=== PATIENT | male | born 1955 | race Caucasian/White ===

== ENCOUNTER → 2017-09-17 14:18 | Outpatient (CLI) | payer BC, SELFPAY ==
[2016-03-23 15:48] VITALS: BMI 51.2
[2016-03-29 21:49] VITALS: BP 125/61
[2016-03-30 08:08] VITALS: BP 128/71
[2017-09-17 15:15] LABS: Amphetamine Urine VISTA NEGATIVE (<1000 ng/mL); Barbiturate Urine VISTA NEGATIVE (< 200 ng/mL); Benzodiazepine Urine VISTA NEGATIVE (< 200 ng/mL); Cocaine Urine VISTA NEGATIVE (< 300 ng/mL); Ecstacy Urine VISTA NEGATIVE (< 500 ng/mL); Methadone Urine VISTA NEGATIVE (< 300 ng/mL); PCP Urine VISTA NEGATIVE (< 25 ng/mL); THC Urine VISTA NEGATIVE (< 50 ng/mL); Vista UDS pH Range 5
== END ==
PROVIDERS: Family Provider Internal Medicine; PCP Internal Medicine; Visit Provider Anesthesiology Pain Medicine
DX: F11.20 Opioid dependence, uncomplicated (principal)
CPT/HCPCS: 80307

== ENCOUNTER → 2018-11-20 16:05 | Outpatient (CLI) | payer OTHER, SELFPAY ==
[2016-03-23 15:48] VITALS: BMI 51.2
[2018-11-20 18:07] LABS: Amphetamine Urine VISTA NEGATIVE (<1000 ng/mL); Barbiturate Urine VISTA NEGATIVE (< 200 ng/mL); Benzodiazepine Urine VISTA NEGATIVE (< 200 ng/mL); Cocaine Urine VISTA NEGATIVE (< 300 ng/mL); Ecstacy Urine VISTA NEGATIVE (< 500 ng/mL); Methadone Urine VISTA NEGATIVE (< 300 ng/mL); PCP Urine VISTA NEGATIVE (< 25 ng/mL); THC Urine VISTA NEGATIVE (< 50 ng/mL); Vista UDS pH Range 5
== END ==
PROVIDERS: Family Provider Internal Medicine; PCP Internal Medicine; Referring Provider Anesthesiology Pain Medicine; Visit Provider Anesthesiology Pain Medicine
DX: F11.20 Opioid dependence, uncomplicated (principal)
CPT/HCPCS: 80307

== ENCOUNTER → 2019-12-17 13:47 | Outpatient (CLI) | payer MEDICARE, BC, SELFPAY ==
--- NOTE | 2019-12-17 13:54 | RAD_ITS ---
STUDY: X-RAY - LUMBAR SPINE REASON FOR EXAM: Male, 63 years old. Back pain TECHNIQUE: 3 view(s) of the lumbar spine were obtained. COMPARISON: Comparison is made with prior examination dated August 26, 2016. FINDINGS: There is an exaggerated lumbar lordosis. There is no substantial scoliosis. There is a normal alignment of the vertebrae. Once again, the patient is status post laminectomy and fusion at the L4-L5 and L5-S1 levels. There has been prosthetic disc placement. There is evidence of disc space narrowing at the L4-L5 and L5-S1 levels. The soft tissue structures are unremarkable. RAD/Lumbar Spine 2 or 3 Views IMPRESSION: Status post laminectomy and fusion at the L4-L5 and L5-S1 levels. There has been no change. Electronically Signed: Adolfo Guzmán, at 15:51 EDT , Service support ,
== END ==
PROVIDERS: PCP Internal Medicine; Referring Provider Anesthesiology Pain Medicine; Visit Provider Anesthesiology Pain Medicine
DX: M54.5 Low back pain (principal)
CPT/HCPCS: 72100

== ENCOUNTER → 2020-01-30 12:02 | Outpatient (CLI) | payer MEDICARE, BC, SELFPAY ==
--- NOTE | 2020-01-30 12:09 | RAD_ITS ---
STUDY: X-RAY - THORACIC SPINE REASON FOR EXAM: Male, 64 years old. Mid back pain TECHNIQUE: 7 view(s) of the thoracic spine were obtained. COMPARISON: None. FINDINGS: There is an increase in the normal thoracic kyphosis. There is no substantial scoliosis. There is demineralization of the thoracic spine with endplate spondylosis. There is multilevel disc space narrowing of the thoracic spine. Evidence of remote CABG RAD/Thoracic Spine 3 Views IMPRESSION: Multilevel degenerative changes, no acute findings Electronically Signed: Max Kat MD at 17:04 EDT , Service support ,
== END ==
PROVIDERS: PCP Internal Medicine; Referring Provider Anesthesiology Pain Medicine; Visit Provider Anesthesiology Pain Medicine
DX: M54.6 Pain in thoracic spine (principal)
CPT/HCPCS: 72072

== ENCOUNTER 2020-04-03 04:24 | Inpatient (IN) | payer MEDICARE, BC, SELFPAY ==
[2020-04-03] VITALS (39 sets, daily range): BP systolic 55–185; BP diastolic 31–83; PULSE 21–94; RESP 12–23; TEMP 36.2–38.4; O2SAT 88–100; BMI 54.1; BMI 55.3
--- NOTE | 2020-04-03 04:42 | CT_ITS ---
STUDY: CT BRAIN WITHOUT CONTRAST REASON FOR EXAM: Male, 64 years old. TRAUMA RADIATION DOSAGE (If Supplied By Facility): CTDIvol = ( 44.99 ) mGy, DLP = ( 880.47 ) mGycm TECHNIQUE: Transaxial CT imaging of the brain was performed without administration of intravenous contrast material. Individualized dose optimization techniques were used for this CT. COMPARISON: No relevant priors. FINDINGS: Normal soft tissue structures. Normal calvarium. Normal size ventricles and extra-axial spaces for the patient''s age. There are areas of decreased attenuation within the white matter tracts of the supratentorial brain, consistent with microvascular disease changes. Normal basal ganglia and thalami. Normal brainstem. Normal cerebellum. There is no intracranial hemorrhage. There are no findings of an acute ischemic infarction. Normal visualized paranasal sinuses. CT/Brain/Head without Contrast IMPRESSION: Chronic involutional changes of the brain. Electronically Signed: Ross Muro, at 5:54 EDT Tel , Service support ,
--- NOTE | 2020-04-03 04:42 | CT_ITS ---
STUDY: CT CERVICAL SPINE WITHOUT CONTRAST REASON FOR EXAM: Male, 64 years old. TRAUMA RADIATION DOSAGE (If Supplied By Facility): CTDIvol = ( 45.16 ) mGy, DLP = ( 1119.41 ) mGycm TECHNIQUE: High resolution transaxial imaging was performed without contrast material. Sagittal and coronal images were reconstructed. Individualized dose optimization techniques were used for this CT. COMPARISON: None FINDINGS: Normal craniovertebral junction. There are degenerative changes of the anterior atlantoaxial articulation. Normal odontoid process. Normal cervical lordosis. Normal vertebral bodies and posterior osseous elements. C2-3: Normal endplates. Normal disc height and morphology. Normal central canal and intervertebral neuroforamina. C3-4: Normal endplates. Normal disc height and morphology. Normal central canal and intervertebral neuroforamina. C4-5: Normal endplates. Normal disc height and morphology. Normal central canal and intervertebral neuroforamina. C5-6: Endplate spondylosis. Decreased disc height and small broad-based disc bulge. Degenerative changes of the bilateral facet joints. Mild narrowing of the central canal and bilateral intervertebral neural foramina. C6-7: Endplate spondylosis. Decreased disc height and small broad-based disc bulge. Degenerative changes of the bilateral facet joints. Mild narrowing of the central canal and bilateral intervertebral neural foramina. C7-T1: Normal endplates. Normal disc height and morphology. Normal central canal and intervertebral neuroforamina. Normal visualized soft tissue structures. CT/Spine Cervical without Contras IMPRESSION: Multilevel degenerative changes, as described above. Electronically Signed: Ross Muro, at 6:31 EDT Tel , Service support ,
--- NOTE | 2020-04-03 04:43 | RAD_ITS ---
STUDY: X-RAY - THORACIC SPINE REASON FOR EXAM: Male, 64 years old. FALL, BACK PAIN TECHNIQUE: 3 view(s) of the thoracic spine were obtained. COMPARISON: None. FINDINGS: Normal kyphosis of the thoracic spine. There is no substantial scoliosis. There is multilevel endplate spondylosis of the thoracic vertebrae. There is multilevel disc space narrowing of the thoracic spine. The soft tissue structures are unremarkable. RAD/Thoracic Spine 3 Views IMPRESSION: Multilevel degenerative changes of the thoracic spine. Electronically Signed: Ross Muro, at 6:51 EDT Tel , Service support ,
--- NOTE | 2020-04-03 04:43 | RAD_ITS ---
STUDY: X-RAY - RIGHT FOOT CLINICAL: Male, 64 years old. FALL, HIT RIGHT PINKY TOE ON HEATER TECHNIQUE: 3 view(s) of the foot. COMPARISON: None. FINDINGS: There is an enthesophyte involving the posterior superior calcaneus at the site of insertion of the Achilles tendon. There is a plantar calcaneal spur. Normal visualized subtalar, talonavicular, calcaneocuboid, tarsal and tarsometatarsal articulations. Normal metatarsi. There is degenerative arthrosis of the metatarsophalangeal joint of the hallux . Normal tibial and fibular sesamoid bones. Normal interphalangeal joint of the great toe. Normal phalanges of the great toe. Normal second through fifth metatarsophalangeal joints. Normal interphalangeal joints and phalanges of the lesser toes. The soft tissue structures are unremarkable. RAD/Foot min 3 Views IMPRESSION: No acute bone injury of the foot. Electronically Signed: Ross Muro, at 6:25 EDT Tel , Service support ,
--- NOTE | 2020-04-03 04:43 | RAD_ITS ---
STUDY: X-RAY - LUMBAR SPINE REASON FOR EXAM: Male, 64 years old. FALL, BACK PAIN TECHNIQUE: 3 view(s) of the lumbar spine were obtained. COMPARISON: None FINDINGS: Normal lumbar lordosis. There is no substantial scoliosis. There is a normal alignment of the vertebrae. Normal vertebral bodies and endplates. There is multi-level degenerative disc disease with multi-level disc space narrowing. There is fusion at L4-5 and L5-S1 in good alignment. Broken pedicular screws are seen at L4. There is atherosclerotic calcification of the abdominal aorta without a demonstrated aneurysm. An IVC filter is seen in good position. RAD/Lumbar Spine 2 or 3 Views IMPRESSION: There is fusion at L4-5 and L5-S1 in good alignment. Broken pedicular screws are seen at L4. No acute bony injury. Electronically Signed: Ross Muro, at 6:48 EDT Tel , Service support ,
[2020-04-03] MEDS: fentaNYL 100 MCG/2 ML Ampul 50 MCG IV (04:53)
[2020-04-03] MEDS: Acetaminophen 500 MG Tablet 1000 MG PO (04:53)
[2020-04-03] MEDS: Diphth,Pertuss(Acell),Tet Vac 0.5 ML Vial IM (04:54)
[2020-04-03 05:11] LABS: Absolute Lymphocyte Count 1.39 X10^3/uL (0.83-4.51); Absolute Neutrophil Count 22.2 X10^3/uL (2.0-7.7); Basophil# 0.12 X10^3/uL; Basophil% 0.5 % (0-1); Eosinophil# 0.09 X10^3/uL; Eosinophils% 0.4 % (0-5); Hematocrit 39.9 % (40-54); Hemoglobin 12.7 g/dL (13.0-16.5); Lymphocyte # 1.39 X10^3/ul (4.0); Lymphocyte % 5.6 % (19-41); Mean Corp Hgb Conc 31.8 g/dL (32-36); Mean Corpuscular Hgb 29.4 pg (27.0-32.0); Mean Corpuscular Volume 92.4 fL (80-94); Mean Platelet Vol. 9.6 fl (6.2-12.0); Monocyte# 0.78 X10^3/uL; Monocyte% 3.1 % (0-10); NRBC Flagged by Analyzer 0 % (0-5); Neutrophil # 22.15 X10^3/uL (2.7-7.7); Neutrophil % 89.3 % (47-70); POSITIVE DIFFERENTIAL YES; POSITIVE MORPHOLOGY YES; Platelet Count 162 K/mm3 (150-450); RBC Distribution Width CV 13.2 % (11.6-14.6); RBC Distribution Width SD 44.5 fl (35.1-43.9); Red Blood Count 4.32 M/mm3 (4.6-6.2); White Blood Count 24.8 K/mm3 (4.4-11.0)
[2020-04-03 05:15] LABS: Differential Indicated SCAN CRITERIA MET
[2020-04-03 05:16] LABS: International Normalized Ratio 2.8; Partial Thromboplast Time 36.8 Seconds (24.1-36.2); Prothrombin Time (Protime)PT. 29.3 SECONDS (11.7-14.9)
[2020-04-03] MEDS: 0.9% Normal Saline 1,000 ML 999 ML IV ×7 (05:16→11:24)
--- NOTE | 2020-04-03 05:35 | RAD_ITS ---
STUDY: X-RAY CHEST REASON FOR EXAM: Male, 64 years old. FALL, BACK PAIN TECHNIQUE: Single AP portable view of the chest. COMPARISON: None. FINDINGS: The lungs are clear and expanded. There is no demonstrated pleural abnormality. Sternal cerclage wires are present from a prior sternotomy. Normal mediastinum and mireya. There is prominence of the pulmonary hilar arteries without peripheral pulmonary vascular congestion, suggesting pulmonary hypertension. Normal visualized aortic arch and descending thoracic aorta. Normal visualized thoracic spine. Normal visualized ribs, clavicles, and shoulders. There is no demonstrated abnormality of the visualized soft tissue structures of the upper abdomen. RAD/Chest 1 View (Portable) IMPRESSION: Possible pulmonary hypertension. There is no acute chest injury. Electronically Signed: Ross Muro, at 6:34 EDT Tel , Service support ,
[2020-04-03 05:37] LABS: ALB/GLOB Ratio 0.7 RATIO (0.9-2.4); AST(SGOT) 19 U/L (15-37); Alanine Aminotransfer ALT/SGPT 36 U/L (16-61); Albumin, Serum 3.1 g/dL (3.2-5.0); Alkaline Phosphatase 67 U/L (45-117); Anion Gap 6 (5-15); BUN 46 mg/dL (7-18); BUN/Creat Ratio 11.4 RATIO (10-20); Calcium,Total 8.7 mg/dL (8.5-10.1); Chloride 104 mmol/L (98-107); Creatinine, Serum 4.03 mg/dL (0.70-1.30); EST Glomerular Filtration Rate 16 mL/min (>60); Est Glom Filt Rate - Afr Amer 19 mL/min (>60); Estimated Creatinine Clearance 20.06 ml/min; Globulin 4.3 g/dL (2.2-4.2); Glucose 154 mg/dL (74-106); Potassium 5.2 mmol/L (3.5-5.1); Protein, Total 7.4 g/dL (6.4-8.2); Sodium Level 137 mmol/L (136-145)
[2020-04-03 05:41] LABS: Differential Comment SCANNED
[2020-04-03 05:43] LABS: Lactic Acid 2.9 mmol/L (0.4-1.9)
--- NOTE | 2020-04-03 06:33 | ED.VISSUMM ---
- ER Visit Summary Date of Service: 04/03/20 Chief Complaint: Fall History of Present Illness: The patient is a [address] Kate, Dr. 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 Patient reports that he went to get out of bed this morning and his legs had fallen asleep. He could not hold himself up and he fell. States that he has neck pain is 10 of 10 severity. Mid back pain is 8 out of 10 in severity. He denies blow to the head or loss of consciousness. However, he is on Xarelto. He denies any shoulder, wrist, or hip pain. Patient reports that he has not felt well the past few days. Has had a fever to 100.2 degrees. States he has a rash on his left leg that began today. He denies a sore throat or cough. No chest pain or shortness of breath. No abdominal pain, nausea, vomiting, or diarrhea. No dysuria or frequency. Physical Examination: Vitals: 98.9, 88/50, 77, 14, 94% on room air which is not hypoxic. General: Well-nourished and well-developed. Head: Normocephalic atraumatic. Neck: Supple, no lymphadenopathy. No JVD. Mild diffuse vertebral tenderness. No point tenderness. Full range of motion without a difficulty. Cardiovascular: Regular rate and rhythm. No murmurs. Respiratory: No respiratory distress. Clear to auscultation bilaterally. Abdominal: Soft, nontender, nondistended, normal bowel sounds. No guarding, rebound, or peritoneal signs. Back: Mild diffuse thoracic tenderness to palpation. Moderate lumbar tenderness palpation. Again no point tenderness.. Extremities: 3+ pitting edema of his lower extremities bilaterally. Chronic venous stasis changes on the left with overlying erythema and warmth. He has avulsed his right small toenail. No tenderness to palpation. Neurologic: Alert and oriented ?3. Cranial nerves II through XII are intact. Normal strength and sensation. Psych: Normal affect. Test Results: CBC shows a white count of 24.8 with an H&H 12.7 and 39.9. Segment neutrophils 89 lymphocytes of 6. Chem-7 shows a potassium of 5.2, BUN 46, creatinine 4.03, glucose 154. His last creatinine from [facility] on March 26 was 1.68. LFTs show an albumin of 3.1 globulin 4.3. INR is 2.8. PTT is 36.8. Lactic acid is 2.9. Clinical Impression(s) from Imaging Studies Brain CT 04/03/20 04:42 IMPRESSION: Chronic involutional changes of the brain. Electronically Signed: Ross Muro, at 5:54 EDT Tel , Service support , Cervical Spine CT 04/03/20 04:42 IMPRESSION: Multilevel degenerative changes, as described above. Electronically Signed: Ross Muro at 6:31 EDT Tel , Service support , Foot X-Ray 04/03/20 04:43 IMPRESSION: No acute bone injury of the foot. Electronically Signed: Ross Muro at 6:25 EDT Tel , Service support , Lumbar Spine X-Ray 04/03/20 04:43 IMPRESSION: There is fusion at L4-5 and L5-S1 in good alignment. Broken pedicular screws are seen at L4. No acute bony injury. Electronically Signed: Ross Muro at 6:48 EDT Tel , Service support , Thoracic Spine X-Ray 04/03/20 04:43 IMPRESSION: Multilevel degenerative changes of the thoracic spine. Electronically Signed: Ross Muro at 6:51 EDT Tel , Service support , Chest X-Ray 04/03/20 05:35 IMPRESSION: Possible pulmonary hypertension. There is no acute chest injury. Electronically Signed: Ross Muro at 6:34 EDT Tel , Service support , Emergency Department Course and Treatment: Patient had an IV placed. He was given a 30 cc/kg bolus of normal saline which is 5430 cc. He was given Rocephin and vancomycin IV. He had his tetanus updated. He was given fentanyl and Zofran IV. Sepsis re-evaluation was performed. Patient reports that he had a heart catheterization 8 days ago at [facility]. This was performed through his left radial and brachial arteries. He reports that this did not require stents. Treatment Plan: The patient was discussed with Dr. Samano. He last took his Xarelto at 10 PM yesterday. A central line will be held at this time while the patient completes his 30 cc/kg bolus. He will be admitted to the ICU for further evaluation and treatment. He was discussed with Dr. Garcia. Disposition: Admitted in critical condition. Impression: 1. Fall. 2. Coagulopathy on Xarelto. 3. Acute kidney injury. 4. Septic shock. 5. Right small toenail avulsion. 6. Cellulitis left leg. 7. Critical care time 33 minutes. This note was generated with [employer] dictation software. It may contain incorrect words, spelling, and punctuation that were not noted in review of the chart prior to signing ED Disposition - Plan for ED Patient: Referrals: David Kate MD [Primary Care Provider] -
--- NOTE | 2020-04-03 06:41 | ED.RN ---
pt antibiotics administered once pt came back from radiology.
--- NOTE | 2020-04-03 07:02 | ED.RN ---
pt refusing catheter. dr pitts aware, pt to be admitted. urine to be obtained when he urinates
--- NOTE | 2020-04-03 07:35 | ED.RN ---
nursing unavailble. pt room being setup at this time. nurse to return call.
--- NOTE | 2020-04-03 07:49 | HP.PCM_ITS ---
History of Present Illness Date of Admission: 04/03/20 Chief Complaint: Fall The patient is a 64 year old M who was in his normal state of health up until few days ago. A few days ago, patient was experiencing fevers and rigors. Today, the patient got up and then just felt his legs were numb and just fell. Sent to the emergency room and was noted to be hypotensive with a blood pressure that got as low as 55/33. Patient stated that he developed some redness in his left lower extremity that began today and was not noticed previously. In the emergency room, patient received ceftriaxone and vancomycin and is currently receiving 30 cc/kg IV fluids for septic shock. Blood pressure has subsequently improved to 120/50. Patient denies any new symptoms outside of just the fevers, rigors, LLE redness, and a fall today. 8 days ago, patient underwent a heart catheterization at [facility]. Heart catheterization was done as outpatient to evaluate the patient for his chronic dyspnea that he has been experiencing since his back surgery in 2017 and also for his lower extremity edema. Apparently there was no significant coronary artery disease that warranted any stents. Patient and his think he may have pulmonary hypertension but are unsure of the official report. [] Past Medical History Past Medical History (Chronic Problems): Chronic Problems GRETCHEN on CPAP (Chronic) VTE (venous thromboembolism) (Chronic) Spondylosis (Chronic) Nephrolithiasis (Chronic) Dyslipidemia (Chronic) HTN (hypertension) (Chronic) Diabetes mellitus (Chronic) BPH (benign prostatic hyperplasia) (Chronic) Super obesity (Chronic) bmi 52 Allergies Penicillins Allergy (Verified 04/03/20 04:42) Unknown erythromycin base [Erythromycin Base] Adverse Reaction (Verified 04/03/20 04:42) Nausea Home Medications: Ambulatory Orders Medication Instructions Recorded Lisinopril [Zestril] 40 mg PO BID 12/15/13 Tizanidine HCl [Zanaflex] 4 mg PO Q8H PRN 12/15/13 Atorvastatin Calcium [Lipitor] 20 mg PO QHS 08/27/15 Furosemide 40 mg PO DAILY 08/27/15 Insulin Glargine [Lantus SoloStar 65 units SC QHS 08/27/15 Pen] metFORMIN HCl [Glucophage] 100 mg PO BIDCM 08/27/15 Multivitamins,Therapeutic 1 tablet PO DAILY 10/18/15 [Multivitamin] Potassium Chloride [Klor-Con 10] 20 meq PO DAILY 10/18/15 Metoprolol Tartrate [Lopressor 25 mg PO BID 03/23/16 (beta marie)] Rivaroxaban [Xarelto] 20 mg PO QHS 03/23/16 Gabapentin [Neurontin] 600 mg PO TIDCM #90 tablet 03/29/16 Insulin Aspart [Novolog Flexpen] 20 units SC TIDAC flexpen 03/29/16 Senna/Docusate Sodium [Senokot-S] 2 tablet PO BID tablet 03/29/16 Aspirin 81 mg PO DAILY 04/03/20 Doxazosin Mesylate [Cardura] 4 mg PO QHS 04/03/20 Dulaglutide [Trulicity] 0.75 injectable SQ QWEEK 04/03/20 Hydrocodone/Acetaminophen 1 ea PO PRN PRN 04/03/20 [Hydrocodon-Acetaminophen 5-325] Insulin Glargine,Hum.rec.anlog 100 unit SQ 04/03/20 [Basaglar Kwikpen U-100] Metolazone [Zaroxolyn] 5 mg PO DAILY 04/03/20 Surgical History: total knee arthroplasty, - - thrombectomy for severe PE, pericardial effusion drainage s/p thrombectomy, laminectomy 2012 Psychiatric History: No pertinent psych hx Lives: Spouse/ Significant Other Smoking Status: Former smoker Tobacco Use: Non-smoker Alcohol: None Drugs: None - *Family History Maternal History Items: Diabetes, Heart Disease, - - possible coagulopathy Paternal History Items: Heart Disease, Stroke, - - age 76 PD Review of Systems Constitutional: Reports: Chills, Fever, Malaise, Weakness. Denies: Anorexia Eyes: Denies: Blurred vision, Double vision HEENT: Denies: Head Aches, Sinus Congestion, Sinus Drainage Cardiovascular: Reports: Edema. Denies: Chest Pain, Palpitations Respiratory: Denies: Cough, Shortness of breath at rest, Sputum production Gastrointestinal: Denies: Abdominal Pain, Nausea, Vomiting Genitourinary: Reports: - - No urine output yet today. Denies: Dysuria Musculoskeletal: Denies: Joint Pain, Joint Tenderness Skin: Reports: - - Redness of left lower extremity. Patient has chronic changes lower extremity. Neurological: Denies: Balance problems, Blurred vision, Double vision, Focal weakness Endocrine: Denies: Change in Body Habitus Hematologic/ Lymphatic: Reports: Hx of blood clot. Denies: Easy Bruising, Easy Bleeding Comment: All review of systems were negative except as mentioned above in the history of present illness and the other review of systems. VTE Information - Inpt Only VTE Present on Admission: No VTE Mechan Device Prophylaxis: None VTE Pharm Prophylaxis ordered?: No - Physical Exam Vitals/I&O's: Vital Signs Temp Pulse Resp BP Pulse Ox 36.7 C 21 L 18 104/51 L 96 04/03/20 07:15 04/03/20 07:15 04/03/20 07:15 04/03/20 07:15 04/03/20 07:15 Oxygen Flow Rate (L/min) 2 Oxygen Delivery Method Room Air Weight: 181.119 kg Body Mass Index (BMI) 54.1 Intake and Output for Last 24 Hours 04/01/20 04/02/20 04/03/20 23:59 23:59 23:59 Intake Total 2032. / 2032. Balance / General: Alert, No apparent distress, Well developed, Well nourished HEENT: Atraumatic, PERRLA, EOMI, Normocephalic Oral: No Gingival or Mucosal Lesions/ Ulcerations, Dry Mucosa Neck: No Nodes, Thyroid Normal Size and Texture Lungs: Clear to auscultation, Diminished Cardiovascular: Regular rate, Regular Rhythm, Normal S1, Normal S2 Abdomen: Bowel Sounds Present, Soft, Non Tender, Non-Distended, No Hepato- splenomegaly Extremities: No edema, No Calf Tenderness Skin: No rashes, No breakdown Musculoskeletal: No Tenderness to Palpation of Joints or Extremities, No Muscle Wasting Lymphatic: No Cervical, Supraclavicular, or Inguinal Adenopathy, Cervical Adenopathy Neurological: Sensory exam intact to light touch and pain, - - no clonus Psych/Mental Status: Normal Affect, Appropriate Laboratory Results 04/03/20 04:55: WBC 24.8 H, RBC 4.32 L, Hgb 12.7 L, Hct 39.9 L, MCV 92.4, MCH 29.4, MCHC 31.8 L, RDW Std Deviation 44.5 H, RDW Coeff of Jak 13.2, Plt Count 162, MPV 9.6, Immature Gran % (Auto) 1.100 H, Neut % (Auto) 89.3 H, Lymph % (Auto) 5.6 L, Hidalgo % (Auto) 3.1, Eos % (Auto) 0.4, Baso % (Auto) 0.5, Absolute Neuts (auto) 22.2 H, Absolute Lymphs (auto) 1.39, Nucleated RBC % 0, Differential Comment SCANNED 04/03/20 04:55: PT 29.3 H, INR 2.8, APTT 36.8 H 04/03/20 04:55: Sodium 137, Potassium 5.2 H, Chloride 104, Carbon Dioxide 27.0, Anion Gap 6, BUN 46 H, Creatinine 4.03 H, Estim Creat Clear Calc 20.06, Est GFR (MDRD) Af Amer 19 L, Est GFR (MDRD) Non-Af 16 L, BUN/Creatinine Ratio 11.4, Glucose 154 H, Calcium 8.7, Total Bilirubin 0.70, AST 19, ALT 36, Alkaline Phosphatase 67, Total Protein 7.4, Albumin 3.1 L, Globulin 4.3 H, Albumin/Globulin Ratio 0.7 L 04/03/20 04:55: Lactic Acid 2.9 H* Clinical Impression(s) from Imaging Studies Brain CT 04/03/20 04:42 IMPRESSION: Chronic involutional changes of the brain. Electronically Signed: Ross Muro, at 5:54 EDT Tel , Service support , Cervical Spine CT 04/03/20 04:42 IMPRESSION: Multilevel degenerative changes, as described above. Electronically Signed: Ross Muro at 6:31 EDT Tel , Service support , Foot X-Ray 04/03/20 04:43 IMPRESSION: No acute bone injury of the foot. Electronically Signed: Ross Muro at 6:25 EDT Tel , Service support , Lumbar Spine X-Ray 04/03/20 04:43 IMPRESSION: There is fusion at L4-5 and L5-S1 in good alignment. Broken pedicular screws are seen at L4. No acute bony injury. Electronically Signed: Ross Muro, at 6:48 EDT Tel , Service support , Thoracic Spine X-Ray 04/03/20 04:43 IMPRESSION: Multilevel degenerative changes of the thoracic spine. Electronically Signed: Ross Muro, at 6:51 EDT Tel , Service support , Chest X-Ray 04/03/20 05:35 IMPRESSION: Possible pulmonary hypertension. There is no acute chest injury. Electronically Signed: Ross Muro, at 6:34 EDT Tel , Service support , Current Medications Sodium Chloride () 1,000 mls @ 999 mls/hr IV .Q1H1M [facility]; Protocol Stop: 04/03/20 10:46 Last Admin: 04/03/20 07:21 Dose: 999 mls/hr Documented by: Assessment/Plan All Active Problems Status post lumbar surgery (Acute) 1. Septic shock * Etiology is likely related with left lower extremity cellulitis. * Blood cultures ordered and drawn already in the emergency room., Check urine, check COVID 19 * Currently, patient is receiving the 30 cc/kg IV bolus of fluids. Patient will need to be reevaluated after that bolus is been completed. Thus far, patient seems to have responded very well with the initial part of the bolus as his systolic blood pressure is 120. * I do not suspect the patient will require any pressors at this time but if so, patient will require central line. * Also, do not suspect patient has COVID as he has had no direct exposure with anyone COVID and is been essentially homebound during the pandemic. * Hold antihypertensives: Cardura, furosemide, metolazone, lisinopril. Metoprolol ordered but hold if systolic less than 100. 2. Left lower extremity cellulitis * Patient has new erythema involving the distal left lower extremity. Is not warm but seems to be the most likely culprit of his septic shock. * Patient received Rocephin and vancomycin in the emergency room. * Will continue with the vancomycin for now. 3. Acute kidney injury * Suspect prerenal due to decreased oral intake, though the patient and his state that he has been drinking properly, insensible losses with his fever plus his concomitant use of diuretics * Currently holding metolazone, lisinopril and furosemide. * Reevaluate * No need for renal replacement therapy at this time 4. History of VTE * Patient has what sounds like a massive pulmonary embolism, possible saddle pulmonary emboli related with orthopedic surgery * Has been on anticoagulation since 2013 * Continue with rivaroxaban 5. Diabetes mellitus type 2 * Continue with his basal insulin, prandial insulin. Hold off on metformin given the acute kidney injury. * Sliding scale insulin 6. Lymphedema * Patient had a recent left heart catheterization in [facility] partly to evaluate the reason for his lymphedema. I suspect patient has pulmonary hypertension with his underlying sleep apnea and history of VTE though I do not know the quality of it. * Diuretics being held given above * Check records from [facility] 7. VTE prophylaxis: Not indicated as patient is already anticoagulated. 8. Advanced care planning: Discussed with the patient. Discussed CPR and what that entails. Patient wishes to be full CODE STATUS at this time. Inpatient E&M: 32733 Init Hosp L3
[2020-04-03 09:05] LABS: Reflex Lactate? Y
--- NOTE | 2020-04-03 09:08 | CON.PCM_ITS ---
Problem List (1) GRETCHEN on CPAP Status: Chronic (2) VTE (venous thromboembolism) Status: Chronic (3) Spondylosis Status: Chronic (4) Nephrolithiasis Status: Chronic (5) Dyslipidemia Status: Chronic (6) HTN (hypertension) Status: Chronic Qualifiers: Hypertension type: essential hypertension Qualified Code(s): I10 - Essential (primary) hypertension (7) Diabetes mellitus Status: Chronic Qualifiers: Diabetes mellitus type: type 2 Diabetes mellitus continuous churn buttermaker insulin use: unspecified continuous churn buttermaker insulin use status Diabetes mellitus complication status: without complication Qualified Code(s): E11.9 - Type 2 diabetes mellitus without complications (8) BPH (benign prostatic hyperplasia) Status: Chronic Qualifiers: Lower urinary tract symptom presence: presence of symptoms unspecified (9) Super obesity Status: Chronic Comment: bmi 52 Reason for Consult Date of Consultation: 04/03/20 Reason for Consultation: Severe sepsis History of Present Illness: The patient is a 64 year old M, with past medical history listed below, who presented with [facility] on 04/03/2020 secondary to a fall and inability to get himself back up. Patient reportedly had 10 out of 10 neck pain, 8 out of 10 mid back pain following the fall. Patient reportedly is on Xarelto secondary to a recent DVT. Patient does have back pain at baseline. Patient reported that he had not felt well the last couple of days and then noted a rash on his left leg. Patient denied any respiratory symptoms such as sore throat, cough, congestion or shortness of breath. No nausea, vomiting, diarrhea or dysuria have been reported. In the emergency room, patient was noted to be 88/55 with a heart rate of 77. Patient was 94% on room air. Laboratory work-up showed a leukocytosis of 24.8 with a hemoglobin of 12.7. Chem-7 showed a BUN of 46 with a creatinine of 4. Patient did have an elevated glucose at 154. Patient reportedly had an creatinine drawn at [facility] on March 26 showing a creatinine of 1.68. Patient's INR was 2.8 and lactate was elevated at 2.9. Multiple imaging studies were obtained and unremarkable. Patient was given 30 cc/kg bolus, Rocephin and vancomycin. Patient was also given fentanyl and Zofran. Patient reportedly had a heart catheterization 8 days ago at [facility], but did not require stents. Patient does report a history of renal dysfunction in the past. Patient has not required dialysis per his recollection. Patient states he does have an extensive heart history and recently was diagnosed with a DVT. Patient does have problems with lymphedema. When asked about the left lower extremity, patient did report that he had a dog scratch approximately 7 to 8 days ago, but thought it was healing well. Patient is not reporting any exposure to COVID outside of being in the hospital environment. Patient is unaware of any previous multidrug-resistant organisms while hospitalized. Patient denies any recent antibiotics or steroid exposure. Review of systems otherwise negative from a constitutional, HEENT, respiratory, cardiovascular, GI, genitourinary, musculoskeletal, skin, neurologic, psychiatric and hematologic system unless stated above. Past Medical History Past Medical History (Chronic Problems): Chronic Problems GRETCHEN on CPAP (Chronic) VTE (venous thromboembolism) (Chronic) Spondylosis (Chronic) Nephrolithiasis (Chronic) Dyslipidemia (Chronic) HTN (hypertension) (Chronic) Diabetes mellitus (Chronic) BPH (benign prostatic hyperplasia) (Chronic) Super obesity (Chronic) bmi 52 Allergies Penicillins Allergy (Verified 04/03/20 04:42) Unknown erythromycin base [Erythromycin Base] Adverse Reaction (Verified 04/03/20 04:42) Nausea Home Medications: Ambulatory Orders Medication Instructions Recorded Lisinopril [Zestril] 40 mg PO BID 12/15/13 Tizanidine HCl [Zanaflex] 4 mg PO Q8H PRN 12/15/13 Atorvastatin Calcium [Lipitor] 20 mg PO QHS 08/27/15 Furosemide 40 mg PO DAILY 08/27/15 Insulin Glargine [Lantus SoloStar 65 units SC QHS 08/27/15 Pen] metFORMIN HCl [Glucophage] 100 mg PO BIDCM 08/27/15 Multivitamins,Therapeutic 1 tablet PO DAILY 10/18/15 [Multivitamin] Potassium Chloride [Klor-Con 10] 20 meq PO DAILY 10/18/15 Metoprolol Tartrate [Lopressor 25 mg PO BID 03/23/16 (beta jaskaran)] Rivaroxaban [Xarelto] 20 mg PO QHS 03/23/16 Gabapentin [Neurontin] 600 mg PO TIDCM #90 tablet 03/29/16 Insulin Aspart [Novolog Flexpen] 20 units SC TIDAC flexpen 03/29/16 Senna/Docusate Sodium [Senokot-S] 2 tablet PO BID tablet 03/29/16 Aspirin 81 mg PO DAILY 04/03/20 Doxazosin Mesylate [Cardura] 4 mg PO QHS 04/03/20 Dulaglutide [Trulicity] 0.75 injectable SQ QWEEK 04/03/20 Hydrocodone/Acetaminophen 1 ea PO PRN PRN 04/03/20 [Hydrocodon-Acetaminophen 5-325] Insulin Glargine,Hum.rec.anlog 100 unit SQ 04/03/20 [Basaglar Kwikpen U-100] Metolazone [Zaroxolyn] 5 mg PO DAILY 04/03/20 Surgical History: total knee arthroplasty, - - thrombectomy for severe PE, pericardial effusion drainage s/p thrombectomy, laminectomy 2012 Psychiatric History: No pertinent psych hx Lives: Spouse/ Significant Other Smoking Status: Former smoker Tobacco Use: Non-smoker Alcohol: None Drugs: None - *Family History Maternal History Items: Diabetes, Heart Disease, - - possible coagulopathy Paternal History Items: Heart Disease, Stroke, - - age 76 PD Review of Systems Comment: See HPI Objective: All imaging was reviewed. Agree with formal interpretation. - Physical Exam Vitals/I&O's: Vital Signs Temp Pulse Resp BP Pulse Ox 36.8 C 76 16 116/65 95 04/03/20 08:18 04/03/20 08:18 04/03/20 08:18 04/03/20 08:18 04/03/20 08:18 Oxygen Flow Rate (L/min) 2 Oxygen Delivery Method Nasal Cannula Weight: 184.9 kg Body Mass Index (BMI) 55.3 Intake and Output for Last 24 Hours 04/01/20 04/02/20 04/03/20 23:59 23:59 23:59 Intake Total 2082.3 / 2082.3 Balance 2082.3 / 2082.3 General: Alert, Oriented x3, Cooperative, - - Mild conversational dyspnea. Morbidly obese. HEENT: Atraumatic, PERRLA, EOMI, Normocephalic, - - No scleral icterus or injection noted Oral: Moist Mucosa, No Gingival or Mucosal Lesions/ Ulcerations Neck: Supple, No Nodes, Trachea Midline, - - Difficult to assess JVD secondary to body habitus Lungs: No rhonchi, No wheeze, No rales, Diminished, - - Symmetric expansion Cardiovascular: Regular rate, Regular Rhythm, Normal S1, Normal S2, No murmurs, No rub noted, No Gallop Abdomen: Bowel Sounds Present, Soft, Non Tender, Non-Distended, Obese Extremities: No clubbing, No cyanosis, Edema, Tenderness - Left lower extremity Skin: Excoriated - Healing scratch noted on the anterior foot of the left. No associated induration or fluctuance, - - Rash noted over the left lower extremity with chronic bilateral venous stasis changes and lymphedema changes. Musculoskeletal: Tenderness - Palpation of the left lower extremity Lymphatic: No Cervical, Supraclavicular, or Inguinal Adenopathy Neurological: Cranial nerves II-XII grossly intact, Neuro grossly intact, Motor Exam 5/5 strength throughout Psych/Mental Status: Alert and oriented to time, place, person, mood and affect Laboratory Results 04/03/20 04:55: WBC 24.8 H, RBC 4.32 L, Hgb 12.7 L, Hct 39.9 L, MCV 92.4, MCH 29.4, MCHC 31.8 L, RDW Std Deviation 44.5 H, RDW Coeff of Jak 13.2, Plt Count 162, MPV 9.6, Immature Gran % (Auto) 1.100 H, Neut % (Auto) 89.3 H, Lymph % (Auto) 5.6 L, Josephine % (Auto) 3.1, Eos % (Auto) 0.4, Baso % (Auto) 0.5, Absolute Neuts (auto) 22.2 H, Absolute Lymphs (auto) 1.39, Nucleated RBC % 0, Differential Comment SCANNED 04/03/20 04:55: PT 29.3 H, INR 2.8, APTT 36.8 H 04/03/20 04:55: Sodium 137, Potassium 5.2 H, Chloride 104, Carbon Dioxide 27.0, Anion Gap 6, BUN 46 H, Creatinine 4.03 H, Estim Creat Clear Calc 20.06, Est GFR (MDRD) Af Amer 19 L, Est GFR (MDRD) Non-Af 16 L, BUN/Creatinine Ratio 11.4, Glucose 154 H, Calcium 8.7, Total Bilirubin 0.70, AST 19, ALT 36, Alkaline Phosphatase 67, Total Protein 7.4, Albumin 3.1 L, Globulin 4.3 H, Albumin/Globulin Ratio 0.7 L 04/03/20 04:55: Lactic Acid 2.9 H* 04/03/20 07:56: COVID-19 (DOMINICK) Pending Current Medications Hydrocodone Bitart/Acetaminophen ([place] 5mg-325mg) 1 tablet PO Q6H PRN PRN Reason: Pain Score 6-10/10 Aspirin (Aspirin, Baby) 81 mg PO DAILY@0800 [facility] Atorvastatin Calcium (Lipitor) 20 mg PO QHS [facility] Dextrose (D50w Syringe) 0 gm IV X1 PRN; Protocol PRN Reason: Hypoglycemia Gabapentin (Neurontin) 600 mg PO TIDCM ANI Glucagon () 1 mg IM .X1 PRN PRN Reason: Hypoglycemia Sodium Chloride () 1,000 mls @ 999 mls/hr IV .Q1H1M ANI; Protocol Stop: 04/03/20 10:46 Last Admin: 04/03/20 07:21 Dose: 999 mls/hr Documented by: Vancomycin IV Pharmacy to Dose (1 ea/ Sodium Chloride) 500 mls @ 250 mls/hr IV X1 PRN; Protocol PRN Reason: Rx to Dose Insulin Glargine (Lantus (Bkc)) 65 units SC QHS [facility] Insulin Human Lispro (Humalog Kwikpen (Bkc)) 20 unit SC TIDAC ANI Insulin Human Lispro (Humalog Kwikpen (Bkc)) 0 unit SC TIDAC [facility]; Protocol Metoprolol Tartrate (Lopressor (Beta Jaskaran)) 25 mg PO BID [facility] Multivitamins (Multivitamin) 1 tablet PO DAILY@0800 [facility] Non-Formulary Medication (Tizanidine Hcl [Zanaflex]) 4 mg PO Q8H PRN PRN Reason: P Ondansetron HCl (Zofran) 4 mg IV Q8H PRN PRN PRN Reason: NAUSEA/VOMITING Rivaroxaban (Xarelto) 20 mg PO QHS [facility] Senna/Docusate Sodium (Senokot-S, Lianna-Colace) 2 tablet PO BID [facility] Clinical Impression(s) from Imaging Studies Brain CT 04/03/20 04:42 IMPRESSION: Chronic involutional changes of the brain. Electronically Signed: Ross Muro, at 5:54 EDT Tel , Service support , Cervical Spine CT 04/03/20 04:42 IMPRESSION: Multilevel degenerative changes, as described above. Electronically Signed: Ross Muro, at 6:31 EDT Tel , Service support , Foot X-Ray 04/03/20 04:43 IMPRESSION: No acute bone injury of the foot. Electronically Signed: Ross Muro at 6:25 EDT Tel , Service support , Lumbar Spine X-Ray 04/03/20 04:43 IMPRESSION: There is fusion at L4-5 and L5-S1 in good alignment. Broken pedicular screws are seen at L4. No acute bony injury. Electronically Signed: Ross Muro at 6:48 EDT Tel , Service support , Thoracic Spine X-Ray 04/03/20 04:43 IMPRESSION: Multilevel degenerative changes of the thoracic spine. Electronically Signed: Ross Muro at 6:51 EDT Tel , Service support , Chest X-Ray 04/03/20 05:35 IMPRESSION: Possible pulmonary hypertension. There is no acute chest injury. Electronically Signed: Ross Muro at 6:34 EDT Tel , Service support , Assessment/Plan RECOMMENDATIONS: 1. Hold anticoagulation 2. Continue IV fluids for now 3. Continue empiric antibiotics pending culture data 4. Possible need for central line 5. Consider empiric therapy for lymphedema with compression stockings to lower extremities IMPRESSIONS: 1. Severe sepsis secondary to left lower extremity cellulitis Patient appears to be responding to his 30 cc/kg volume resuscitation. This is a significant amount of fluid, so we will transition to LR for maintenance fluids to avoid hypernatremia and hyperchloremia. Cannot exclude the need for pressor therapy moving forward. Anticoagulation should be held until it is clear he will not require a central line. Patient is on empiric antibiotics at this time. COVID-19 testing is currently pending. 2. Acute on chronic kidney disease stage III Patient reportedly has a baseline creatinine of approximately 1.6. This is significantly elevated at this time. Clinical suspicion for protracted hypotension leading to fall. Patient has received significant volume resuscitation. We will continue to monitor with daily BMPs and replace electrolytes as necessary. 3. Recent VTE Unclear timing of previous DVT with possible PE. However, given patient's hypotension, there is a high likelihood that central line and pressors will be required. Recommend holding Xarelto therapy for now. 4. Morbid obesity/lymphedema/type 2 diabetes mellitus/chronic pain syndrome/hyperlipidemia Complicates care, management, recovery and prognosis. Will likely need to watch blood sugars closely given high endemic corticosteroid release. Patient is insulin-dependent with significant requirements at baseline. Recommending holding metformin secondary to concerns for lactic acidosis. Inpatient E&M: 30040 Init Hosp L3
[2020-04-03 09:44] LABS: Probe Check PASS; Specimen Processing Control PASS
[2020-04-03 10:07] LABS: Lactic Acid 2.2 mmol/L (0.4-1.9)
--- NOTE | 2020-04-03 10:10 | CASEMGMT ---
RN CM Note: participated in ICU rounds. Pt new to unit this am. RN CM assessment deferred @ this time. CM to follow for dc planning. Sheri MCKEONN RN ACM
--- NOTE | 2020-04-03 10:50 | PCM.RX.CS ---
Consult Pharmacy has been consulted to manage selected antiobiotic: Vancomycin Suspected Infection: Sepsis, Skin/Soft tissue Prior Doses of Antibiotics Received/Current Regimen: 2000mg IV x1 in E.R. starting at 0616 today Labs: Sodium 137 mmol/L (136-145) 04/03/20 04:55 Potassium 5.2 mmol/L (3.5-5.1) H 04/03/20 04:55 Chloride 104 mmol/L (98-107) 04/03/20 04:55 Carbon Dioxide 27.0 mmol/L (21.0-32.0) 04/03/20 04:55 Anion Gap 6 (5-15) 04/03/20 04:55 BUN 46 mg/dL (7-18) H 04/03/20 04:55 Creatinine 4.03 mg/dL (0.70-1.30) H 04/03/20 04:55 Est GFR (MDRD) Af Amer 19 mL/min (>60) L 04/03/20 04:55 Est GFR (MDRD) Non-Af 16 mL/min (>60) L 04/03/20 04:55 BUN/Creatinine Ratio 11.4 RATIO (10-20) 04/03/20 04:55 Glucose 154 mg/dL (74-106) H 04/03/20 04:55 Weight used for dosin.9 kg Estimated Creatinine Clearance: 20ml/min Goal Trough: 15-20 mcg/mL Pharmacy Plan for Drug Dosing: Will not put patient on a scheduled dose of vancomycin yet due to unstable renal function and CrCl = 20 (SCr = 4.03). Per protocol, will order a random vanc level tomorrow morning and reevaluate dosing after that result is back. Pharmacy Service will continue to monitor and adjust dosing as required. Follow-Up Labs: Trough Vancomycin - random level Labs to be done on [date and time ordered]: 04/04/20 06:00
--- NOTE | 2020-04-03 11:25 | SEPSIS_ITS ---
Sepsis Note - Physical Exam/Vitals Subjective: Patient evaluated for sepsis evaluation at 1033 Patient had just completed his 30 cc/kg IV bolus. Currently his blood pressure is stable. Denies any new complaints at this time. Objective: Brain CT 04/03/20 04:42 IMPRESSION: Chronic involutional changes of the brain. Electronically Signed: Ross Muro, at 5:54 EDT Tel , Service support , Cervical Spine CT 04/03/20 04:42 IMPRESSION: Multilevel degenerative changes, as described above. Electronically Signed: Ross Muro at 6:31 EDT Tel , Service support , Foot X-Ray 04/03/20 04:43 IMPRESSION: No acute bone injury of the foot. Electronically Signed: Ross Muro at 6:25 EDT Tel , Service support , Lumbar Spine X-Ray 04/03/20 04:43 IMPRESSION: There is fusion at L4-5 and L5-S1 in good alignment. Broken pedicular screws are seen at L4. No acute bony injury. Electronically Signed: Ross Muro at 6:48 EDT Tel , Service support , Thoracic Spine X-Ray 04/03/20 04:43 IMPRESSION: Multilevel degenerative changes of the thoracic spine. Electronically Signed: Ross Muro at 6:51 EDT Tel , Service support , Chest X-Ray 04/03/20 05:35 IMPRESSION: Possible pulmonary hypertension. There is no acute chest injury. Electronically Signed: Ross Muro at 6:34 EDT Tel , Service support , Temp Pulse Resp BP Pulse Ox 36.2 C L 69 13 102/48 L 99 04/03/20 08:47 04/03/20 10:41 04/03/20 10:41 04/03/20 09:00 04/03/20 10:41 04/03/20 04/03/20 04/03/20 09:29 07:56 04:55 WBC RBC Hgb Hct MCV MCH MCHC RDW Std Deviation RDW Coeff of Jak Plt Count MPV Immature Gran % (Auto) Neut % (Auto) Lymph % (Auto) Lamb % (Auto) Eos % (Auto) Baso % (Auto) Absolute Neuts (auto) Absolute Lymphs (auto) Nucleated RBC % Differential Comment PT INR APTT Sodium Potassium Chloride Carbon Dioxide Anion Gap BUN Creatinine Estim Creat Clear Calc Est GFR (MDRD) Af Amer Est GFR (MDRD) Non-Af BUN/Creatinine Ratio Glucose Lactic Acid 2.2 H* 2.9 H* Calcium Total Bilirubin AST ALT Alkaline Phosphatase Total Protein Albumin Globulin Albumin/Globulin Ratio COVID-19 (DOMINICK) Negative 04/03/20 04/03/20 04/03/20 04:55 04:55 04:55 WBC 24.8 H RBC 4.32 L Hgb 12.7 L Hct 39.9 L MCV 92.4 MCH 29.4 MCHC 31.8 L RDW Std Deviation 44.5 H RDW Coeff of Jak 13.2 Plt Count 162 MPV 9.6 Immature Gran % (Auto) 1.100 H Neut % (Auto) 89.3 H Lymph % (Auto) 5.6 L Lamb % (Auto) 3.1 Eos % (Auto) 0.4 Baso % (Auto) 0.5 Absolute Neuts (auto) 22.2 H Absolute Lymphs (auto) 1.39 Nucleated RBC % 0 Differential Comment SCANNED PT 29.3 H INR 2.8 APTT 36.8 H Sodium 137 Potassium 5.2 H Chloride 104 Carbon Dioxide 27.0 Anion Gap 6 BUN 46 H Creatinine 4.03 H Estim Creat Clear Calc 20.06 Est GFR (MDRD) Af Amer 19 L Est GFR (MDRD) Non-Af 16 L BUN/Creatinine Ratio 11.4 Glucose 154 H Lactic Acid Calcium 8.7 Total Bilirubin 0.70 AST 19 ALT 36 Alkaline Phosphatase 67 Total Protein 7.4 Albumin 3.1 L Globulin 4.3 H Albumin/Globulin Ratio 0.7 L COVID-19 (DOMINICK) General: Alert, Cooperative, No apparent distress, Well developed Lungs: Clear to auscultation, Normal air movement Cardiovascular: Regular rate, Regular Rhythm, Normal S1, Normal S2 Capillary Refill: <3 seconds Peripheral Pulses: Normal Skin Color: [place] - Assessment/Plan 1. Septic shock: Appears to be resolved at this time. Please refer to the history and physical for further details. - Attestation Sepsis Attestation: Sepsis re-evaluation was performed
[2020-04-03] MEDS: Insulin Lispro 100 UNIT/ML INSULN.PEN 20 UNIT SC ×2 (11:26→18:50)
[2020-04-03] MEDS: Lactated Ringers 1,000 ML 100 ML IV ×2 (11:30→20:40)
[2020-04-03 11:41] LABS: Bedside Glucose 116 mg/dL (70-110)
[2020-04-03 13:36] LABS: Reflex Lactate? Y
[2020-04-03] MEDS: Gabapentin 600 MG Tablet PO ×2 (14:09→19:44)
[2020-04-03] MEDS: Aspirin 81 MG TAB.CHEW PO (14:09)
[2020-04-03] MEDS: Multivitamins,Therapeutic Tablet 1 TABLET PO (14:10)
[2020-04-03] MEDS: Senna/Docusate Sodium 1 Tablet 2 TABLET PO (14:10)
[2020-04-03 15:44] LABS: Mucous, Urine 0 SEEN /hpf (<or=2+); Squamous Epithelial Cells - UA 0 SEEN /hpf (0-5)
[2020-04-03 15:50] LABS: Color, Urine Yellow (Yellow); Glucose, Dipstick Normal (Normal); Ketone-Dipstick Negative (Negative); Leukocyte Esterase-Dipstick Negative /ul (Negative); Nitrite-Dipstick Negative (Negative); Occult Blood-Urine 250 /ul (Negative); Protein-Dipstick 30 mg/dl (Negative); Specific Gravity, Urine 1.015 (1.002-1.030); Urine Bilirubin Dipstick Negative (Negative); Urine Clarity Clear (Clear); Urine Urobilinogen Normal (Normal)
[2020-04-03 16:34] LABS: Hyaline Cast 5-10 SEEN /lpf (0-5)
[2020-04-03 16:35] LABS: Bacteria 2+ /hpf (None Seen); Red Blood Cells-Urine 0-5 SEEN /hpf (0-5); White Blood Cells 0-5 SEEN /hpf (0-5)
[2020-04-03 19:18] LABS: Urea Nitrogen, Urine 550 mg/dL (NO RANGE EST.)
[2020-04-03] MEDS: Atorvastatin Calcium 20 MG Tablet PO (20:32)
[2020-04-03] MEDS: Metoprolol Tartrate 25 MG Tablet PO (20:33)
[2020-04-03] MEDS: Rivaroxaban 20 MG Tablet PO (20:33)
[2020-04-03 20:46] LABS: Bedside Glucose 135 mg/dL (70-110)
[2020-04-03] MEDS: HYDROcodone Bitartrate/Apap 5/325 Tablet PO (20:46)
[2020-04-03 21:51] LABS: Bedside Glucose 111 mg/dL (70-110)
--- NOTE | 2020-04-03 21:52 | CPS ---
pt brought in own unit with 2 l/m -set up with water added
[2020-04-04] VITALS (25 sets, daily range): BP systolic 100–167; BP diastolic 49–86; PULSE 71–93; RESP 13–22; TEMP 36.9–38.5; O2SAT 93–98
[2020-04-04] MEDS: Acetaminophen 325 MG Tablet 650 MG PO ×2 (00:18→11:49)
--- NOTE | 2020-04-04 01:11 | PCM.PN.BLA ---
Progress Note With persistent fever while on vancomycin and having received cefepime in the last 24 hours; and with abnormal urinalysis we will add cefepime to his regimen. Of note patient IMER on CKD so Zosyn was not ordered. STROKE Vital Signs/Narrative: Vital Signs Temp Pulse Resp BP BP Pulse Ox 04/04/20 00:14 80 04/04/20 00:00 101.3 F H 80 16 111/49 L 98 04/03/20 23:00 101.1 F H 82 19 H 97/48 L 94 04/03/20 22:00 100.7 F H 81 21 H 122/54 H 96 04/03/20 21:30 95
[2020-04-04] MEDS: Lactated Ringers 1,000 ML 100 ML IV (05:33)
[2020-04-04 05:48] LABS: Absolute Lymphocyte Count 1.59 X10^3/uL (0.83-4.51); Absolute Neutrophil Count 9.1 X10^3/uL (2.0-7.7); Basophil# 0.05 X10^3/uL; Basophil% 0.4 % (0-1); Eosinophil# 0.26 X10^3/uL; Eosinophils% 2.2 % (0-5); Hematocrit 34.5 % (40-54); Hemoglobin 10.8 g/dL (13.0-16.5); Lymphocyte # 1.59 X10^3/ul (4.0); Lymphocyte % 13.4 % (19-41); Mean Corp Hgb Conc 31.3 g/dL (32-36); Mean Corpuscular Hgb 29.2 pg (27.0-32.0); Mean Corpuscular Volume 93.2 fL (80-94); Mean Platelet Vol. 9.6 fl (6.2-12.0); Monocyte# 0.78 X10^3/uL; Monocyte% 6.6 % (0-10); NRBC Flagged by Analyzer 0 % (0-5); Neutrophil # 9.13 X10^3/uL (2.7-7.7); Neutrophil % 76.8 % (47-70); Platelet Count 129 K/mm3 (150-450); RBC Distribution Width CV 13.4 % (11.6-14.6); RBC Distribution Width SD 45.6 fl (35.1-43.9); White Blood Count 11.9 K/mm3 (4.4-11.0)
[2020-04-04 06:02] LABS: Vancomycin, Random Level 9.5 ug/mL (0.0-15.0)
[2020-04-04 06:05] LABS: Anion Gap 5 (5-15); BUN 39 mg/dL (7-18); BUN/Creat Ratio 15.5 RATIO (10-20); Calcium,Total 8.1 mg/dL (8.5-10.1); Chloride 109 mmol/L (98-107); Creatinine, Serum 2.52 mg/dL (0.70-1.30); EST Glomerular Filtration Rate 27 mL/min (>60); Est Glom Filt Rate - Afr Amer 33 mL/min (>60); Estimated Creatinine Clearance 32.08 ml/min; Glucose 81 mg/dL (74-106); Potassium 4.4 mmol/L (3.5-5.1); Sodium Level 139 mmol/L (136-145)
--- NOTE | 2020-04-04 06:19 | PCM.RX.CS ---
Consult Pharmacy has been consulted to manage selected antiobiotic: Vancomycin Type of Consult: Follow-up Suspected Infection: Sepsis, Skin/Soft tissue Prior Doses of Antibiotics Received/Current Regimen: Medications Vancomycin HCl 1,500 mg/ (Sodium Chloride) 530 mls @ 250 mls/hr IV Q24H ANI Discontinued Medications Vancomycin HCl 2,000 mg/ (Sodium Chloride) 540 mls @ 250 mls/hr IV X1 ONE Stop: 04/03/20 07:44 Last Admin: 04/03/20 08:26 Dose: Infused Labs: Sodium 139 mmol/L (136-145) 04/04/20 05:30 Potassium 4.4 mmol/L (3.5-5.1) 04/04/20 05:30 Chloride 109 mmol/L (98-107) H 04/04/20 05:30 Carbon Dioxide 25.0 mmol/L (21.0-32.0) 04/04/20 05:30 Anion Gap 5 (5-15) 04/04/20 05:30 BUN 39 mg/dL (7-18) H 04/04/20 05:30 Creatinine 2.52 mg/dL (0.70-1.30) H 04/04/20 05:30 Est GFR (MDRD) Af Amer 33 mL/min (>60) L 04/04/20 05:30 Est GFR (MDRD) Non-Af 27 mL/min (>60) L 04/04/20 05:30 BUN/Creatinine Ratio 15.5 RATIO (10-20) 04/04/20 05:30 Glucose 81 mg/dL (74-106) 04/04/20 05:30 Random Vancomycin 9.5 ug/mL (0.0-15.0) 04/04/20 05:30 Weight used for dosin kg Estimated Creatinine Clearance: 32 Goal Trough: 15-20 mcg/mL Pharmacy Plan for Drug Dosing: Creatinine leveled out and vancomycin trough was 9.5, so routine dosing will be started at 1500mg q24h. Another trough will be drawn prior to 3rd dose of new regimen. Pharmacy Service will continue to monitor and adjust dosing as required. Follow-Up Labs: Trough Vancomycin Labs to be done on [date and time ordered]: 04/06/20 @0630
[2020-04-04] MEDS: 0.9% Saline Lock 10 ML Syringe IV ×2 (06:40→06:46)
[2020-04-04] MEDS: Furosemide 40 MG/4 ML Vial IV (06:46)
--- NOTE | 2020-04-04 07:15 | PCM.PN.INT ---
Subjective: Patient did okay overnight. Patient did have some issues with urinary retention requiring Guido placement with over thousand cc removed. Patient also had higher fevers, but remained hemodynamically stable. Patient was able to receive baseline rate control medications. No bleeding has been reported. Nursing did report concentrated urine on initial catheterization. Desaturation events resolved with initiation of home BiPAP unit. Objective: Patient's home BiPAP was interrogated and found to be on 20/16 centimeters of water. General: Alert, Oriented x3, Cooperative, No apparent distress HEENT: Atraumatic, PERRLA, EOMI, Normocephalic, - - Slight scleral injection without icterus Oral: No Gingival or Mucosal Lesions/ Ulcerations, Dry Mucosa Neck: Supple, No JVD, No Nodes, Trachea Midline Lungs: No rhonchi, No wheeze, No rales, Diminished, - - Symmetric expansion. No dullness to percussion. Cardiovascular: Regular rate, Regular Rhythm, Normal S1, Normal S2, No murmurs, No rub noted, No Gallop Abdomen: Bowel Sounds Present, Soft, Non Tender, Non-Distended, Obese Extremities: No clubbing, No cyanosis, Edema Skin: Rash Present - Slightly improved compared to yesterday. Still warm to the touch on the left lower extremity Musculoskeletal: Tenderness - Left lower extremity improved from yesterday Lymphatic: No Cervical, Supraclavicular, or Inguinal Adenopathy Neurological: Cranial nerves II-XII grossly intact, Neuro grossly intact, Motor Exam 5/5 strength throughout Psych/Mental Status: Alert and oriented to time, place, person, mood and affect Vital Signs Temp Pulse Resp BP Pulse Ox 37.8 C H 78 14 132/72 H 93 04/04/20 07:00 04/04/20 07:00 04/04/20 07:00 04/04/20 07:00 04/04/20 07:00 Oxygen Flow Rate (L/min) 2 Oxygen Delivery Method Room Air Weight: 187 kg Body Mass Index (BMI) 55.3 Intake and Output for Last 24 Hours 04/02/20 04/03/20 04/04/20 23:59 23:59 23:59 Intake Total 5813.27 / 5813.27 1468.33 / 1468.33 Output Total 1575 / 2375 1500 / 1500 Balance 4238.27 / 3438.27 -31.67 / -31.67 Labs (Last 48 Hours) 04/03/20 04/03/20 04/03/20 04:55 04:55 04:55 WBC 24.8 H RBC 4.32 L Hgb 12.7 L Hct 39.9 L MCV 92.4 MCH 29.4 MCHC 31.8 L RDW Std Deviation 44.5 H RDW Coeff of Jak 13.2 Plt Count 162 MPV 9.6 Immature Gran % (Auto) 1.100 H Neut % (Auto) 89.3 H Lymph % (Auto) 5.6 L [place] % (Auto) 3.1 Eos % (Auto) 0.4 Baso % (Auto) 0.5 Absolute Neuts (auto) 22.2 H Absolute Lymphs (auto) 1.39 Nucleated RBC % 0 Differential Comment SCANNED Eos Smear Total Cells PT 29.3 H INR 2.8 APTT 36.8 H Sodium 137 Potassium 5.2 H Chloride 104 Carbon Dioxide 27.0 Anion Gap 6 BUN 46 H Creatinine 4.03 H Estim Creat Clear Calc 20.06 Est GFR (MDRD) Af Amer 19 L Est GFR (MDRD) Non-Af 16 L BUN/Creatinine Ratio 11.4 Glucose 154 H Lactic Acid Calcium 8.7 Total Bilirubin 0.70 AST 19 ALT 36 Alkaline Phosphatase 67 Troponin I Total Protein 7.4 Albumin 3.1 L Globulin 4.3 H Albumin/Globulin Ratio 0.7 L Urine Color Urine Clarity Urine pH Ur Specific [place] Urine Protein Urine Glucose (UA) Urine Ketones Urine Occult Blood Urine Nitrite Urine Bilirubin Urine Urobilinogen Ur Leukocyte Esterase Urine RBC Urine WBC Ur Squamous Epith Cells Urine Bacteria Hyaline Casts Urine Mucus Urine Creatinine Urine Urea Nitrogen Random Vancomycin COVID-19 (DOMINICK) POC Glucose 04/03/20 04/03/20 04/03/20 04:55 07:56 09:29 WBC RBC Hgb Hct MCV MCH MCHC RDW Std Deviation RDW Coeff of Jak Plt Count MPV Immature Gran % (Auto) Neut % (Auto) Lymph % (Auto) [place] % (Auto) Eos % (Auto) Baso % (Auto) Absolute Neuts (auto) Absolute Lymphs (auto) Nucleated RBC % Differential Comment Eos Smear Total Cells PT INR APTT Sodium Potassium Chloride Carbon Dioxide Anion Gap BUN Creatinine Estim Creat Clear Calc Est GFR (MDRD) Af Amer Est GFR (MDRD) Non-Af BUN/Creatinine Ratio Glucose Lactic Acid 2.9 H* 2.2 H* Calcium Total Bilirubin AST ALT Alkaline Phosphatase Troponin I Total Protein Albumin Globulin Albumin/Globulin Ratio Urine Color Urine Clarity Urine pH Ur Specific [place] Urine Protein Urine Glucose (UA) Urine Ketones Urine Occult Blood Urine Nitrite Urine Bilirubin Urine Urobilinogen Ur Leukocyte Esterase Urine RBC Urine WBC Ur Squamous Epith Cells Urine Bacteria Hyaline Casts Urine Mucus Urine Creatinine Urine Urea Nitrogen Random Vancomycin COVID-19 (DOMINICK) Negative POC Glucose 04/03/20 04/03/20 04/03/20 11:18 12:30 15:35 WBC RBC Hgb Hct MCV MCH MCHC RDW Std Deviation RDW Coeff of Jak Plt Count MPV Immature Gran % (Auto) Neut % (Auto) Lymph % (Auto) [place] % (Auto) Eos % (Auto) Baso % (Auto) Absolute Neuts (auto) Absolute Lymphs (auto) Nucleated RBC % Differential Comment Eos Smear Total Cells PT INR APTT Sodium Potassium Chloride Carbon Dioxide Anion Gap BUN Creatinine Estim Creat Clear Calc Est GFR (MDRD) Af Amer Est GFR (MDRD) Non-Af BUN/Creatinine Ratio Glucose Lactic Acid Calcium Total Bilirubin AST ALT Alkaline Phosphatase Troponin I < 0.015 Total Protein Albumin Globulin Albumin/Globulin Ratio Urine Color Yellow Urine Clarity Clear Urine pH 5.0 Ur Specific [place] 1.015 Urine Protein 30 H Urine Glucose (UA) Normal Urine Ketones Negative Urine Occult Blood 250 H Urine Nitrite Negative Urine Bilirubin Negative Urine Urobilinogen Normal Ur Leukocyte Esterase Negative Urine RBC 0-5 SEEN Urine WBC 0-5 SEEN Ur Squamous Epith Cells 0 SEEN Urine Bacteria 2+ Hyaline Casts 5-10 SEEN Urine Mucus 0 SEEN Urine Creatinine Urine Urea Nitrogen Random Vancomycin COVID-19 (DOMINICK) POC Glucose 116 H 04/03/20 04/03/20 04/03/20 15:35 16:10 17:41 WBC RBC Hgb Hct MCV MCH MCHC RDW Std Deviation RDW Coeff of Jak Plt Count MPV Immature Gran % (Auto) Neut % (Auto) Lymph % (Auto) [place] % (Auto) Eos % (Auto) Baso % (Auto) Absolute Neuts (auto) Absolute Lymphs (auto) Nucleated RBC % Differential Comment Eos Smear Total Cells Pending PT INR APTT Sodium Potassium Chloride Carbon Dioxide Anion Gap BUN Creatinine Estim Creat Clear Calc Est GFR (MDRD) Af Amer Est GFR (MDRD) Non-Af BUN/Creatinine Ratio Glucose Lactic Acid Calcium Total Bilirubin AST ALT Alkaline Phosphatase Troponin I < 0.015 Total Protein Albumin Globulin Albumin/Globulin Ratio Urine Color Urine Clarity Urine pH Ur Specific [place] Urine Protein Urine Glucose (UA) Urine Ketones Urine Occult Blood Urine Nitrite Urine Bilirubin Urine Urobilinogen Ur Leukocyte Esterase Urine RBC Urine WBC Ur Squamous Epith Cells Urine Bacteria Hyaline Casts Urine Mucus Urine Creatinine Urine Urea Nitrogen Random Vancomycin COVID-19 (DOMINICK) POC Glucose 111 H 04/03/20 04/03/20 04/03/20 18:30 18:45 18:45 WBC RBC Hgb Hct MCV MCH MCHC RDW Std Deviation RDW Coeff of Jak Plt Count MPV Immature Gran % (Auto) Neut % (Auto) Lymph % (Auto) [place] % (Auto) Eos % (Auto) Baso % (Auto) Absolute Neuts (auto) Absolute Lymphs (auto) Nucleated RBC % Differential Comment Eos Smear Total Cells PT INR APTT Sodium Potassium Chloride Carbon Dioxide Anion Gap BUN Creatinine Estim Creat Clear Calc Est GFR (MDRD) Af Amer Est GFR (MDRD) Non-Af BUN/Creatinine Ratio Glucose Lactic Acid Calcium Total Bilirubin AST ALT Alkaline Phosphatase Troponin I < 0.015 Total Protein Albumin Globulin Albumin/Globulin Ratio Urine Color Urine Clarity Urine pH Ur Specific [place] Urine Protein Urine Glucose (UA) Urine Ketones Urine Occult Blood Urine Nitrite Urine Bilirubin Urine Urobilinogen Ur Leukocyte Esterase Urine RBC Urine WBC Ur Squamous Epith Cells Urine Bacteria Hyaline Casts Urine Mucus Urine Creatinine 120.00 Urine Urea Nitrogen 550 Random Vancomycin COVID-19 (DOMINICK) POC Glucose 04/03/20 04/04/20 04/04/20 20:35 05:30 05:30 WBC 11.9 H RBC 3.70 L Hgb 10.8 L Hct 34.5 L MCV 93.2 MCH 29.2 MCHC 31.3 L RDW Std Deviation 45.6 H RDW Coeff of Jak 13.4 Plt Count 129 L MPV 9.6 Immature Gran % (Auto) 0.600 Neut % (Auto) 76.8 H Lymph % (Auto) 13.4 L [place] % (Auto) 6.6 Eos % (Auto) 2.2 Baso % (Auto) 0.4 Absolute Neuts (auto) 9.1 H Absolute Lymphs (auto) 1.59 Nucleated RBC % 0 Differential Comment Eos Smear Total Cells PT INR APTT Sodium 139 Potassium 4.4 Chloride 109 H Carbon Dioxide 25.0 Anion Gap 5 BUN 39 H Creatinine 2.52 H Estim Creat Clear Calc 32.08 Est GFR (MDRD) Af Amer 33 L Est GFR (MDRD) Non-Af 27 L BUN/Creatinine Ratio 15.5 Glucose 81 Lactic Acid Calcium 8.1 L Total Bilirubin AST ALT Alkaline Phosphatase Troponin I Total Protein Albumin Globulin Albumin/Globulin Ratio Urine Color Urine Clarity Urine pH Ur Specific [place] Urine Protein Urine Glucose (UA) Urine Ketones Urine Occult Blood Urine Nitrite Urine Bilirubin Urine Urobilinogen Ur Leukocyte Esterase Urine RBC Urine WBC Ur Squamous Epith Cells Urine Bacteria Hyaline Casts Urine Mucus Urine Creatinine Urine Urea Nitrogen Random Vancomycin COVID-19 (DOMINICK) POC Glucose 135 H 04/04/20 05:30 WBC RBC Hgb Hct MCV MCH MCHC RDW Std Deviation RDW Coeff of Jak Plt Count MPV Immature Gran % (Auto) Neut % (Auto) Lymph % (Auto) [place] % (Auto) Eos % (Auto) Baso % (Auto) Absolute Neuts (auto) Absolute Lymphs (auto) Nucleated RBC % Differential Comment Eos Smear Total Cells PT INR APTT Sodium Potassium Chloride Carbon Dioxide Anion Gap BUN Creatinine Estim Creat Clear Calc Est GFR (MDRD) Af Amer Est GFR (MDRD) Non-Af BUN/Creatinine Ratio Glucose Lactic Acid Calcium Total Bilirubin AST ALT Alkaline Phosphatase Troponin I Total Protein Albumin Globulin Albumin/Globulin Ratio Urine Color Urine Clarity Urine pH Ur Specific [place] Urine Protein Urine Glucose (UA) Urine Ketones Urine Occult Blood Urine Nitrite Urine Bilirubin Urine Urobilinogen Ur Leukocyte Esterase Urine RBC Urine WBC Ur Squamous Epith Cells Urine Bacteria Hyaline Casts Urine Mucus Urine Creatinine Urine Urea Nitrogen Random Vancomycin 9.5 COVID-19 (DOMINICK) POC Glucose Medical Necessity - Tobacco Use Smoking Status: Former smoker Tobacco Use: Non-smoker Assessment/Plan All Active Problems Status post lumbar surgery (Acute) RECOMMENDATIONS: 1. Reinitiate anticoagulation with Eliquis given renal function 2. Hold IV fluids. Give dose of Lasix. 3. Continue empiric antibiotics pending culture data 4. Increase activity as tolerated 5. Consider empiric therapy for lymphedema with compression stockings to lower extremities 6. Possible transfer from the intensive care unit later today IMPRESSIONS: 1. Severe sepsis secondary to left lower extremity cellulitis Patient responded to his 30 cc/kg volume resuscitation. Will attempt to KVO fluids at this point. Patient is up over 2 kg, so we will give diuretic therapy given adequate blood pressure. Cannot exclude the need for pressor therapy moving forward. Okay to reinitiate anticoagulation, but will use Eliquis given current renal function. Patient is on empiric antibiotics at this time. COVID-19 testing was negative. 2. Acute on chronic kidney disease stage III Patient reportedly has a baseline creatinine of approximately 1.6. This is significantly elevated at this time. Clinical suspicion for protracted hypotension leading to fall. Patient has received significant volume resuscitation. We will continue to monitor with daily BMPs and replace electrolytes as necessary. Patient may have an element of prerenal and postrenal acute kidney injury given urinary retention. We will continue with Guido for now. 3. Recent VTE Unclear timing of previous DVT with possible PE. Patient's blood pressure appears to have stabilized. Will initiate patient on Eliquis given variable renal function. 4. Morbid obesity/lymphedema/type 2 diabetes mellitus/chronic pain syndrome/hyperlipidemia Complicates care, management, recovery and prognosis. Will likely need to watch blood sugars closely given high endemic corticosteroid release. Patient is insulin-dependent with significant requirements at baseline. Recommending holding metformin secondary to concerns for lactic acidosis. Inpatient E&M: [id number] [facility] Hosp L3
[2020-04-04] MEDS: Insulin Lispro 100 UNIT/ML INSULN.PEN 20 UNIT SC ×3 (08:35→17:18)
[2020-04-04] MEDS: Multivitamins,Therapeutic Tablet 1 TABLET PO (08:39)
[2020-04-04] MEDS: Metoprolol Tartrate 25 MG Tablet PO ×2 (08:39→22:02)
[2020-04-04] MEDS: Gabapentin 600 MG Tablet PO ×3 (08:39→17:17)
[2020-04-04] MEDS: Aspirin 81 MG TAB.CHEW PO (08:39)
[2020-04-04] MEDS: Senna/Docusate Sodium 1 Tablet 2 TABLET PO (08:39)
--- NOTE | 2020-04-04 09:19 | PN_ITS ---
Reason for Visit: septic shock Subjective: Feels well. Decreased erythema of LLE. Vitals/I&O's: Vital Signs Temp Pulse Resp BP Pulse Ox 37.9 C H 89 13 151/86 H 96 04/04/20 08:00 04/04/20 09:00 04/04/20 09:00 04/04/20 09:00 04/04/20 09:00 Oxygen Flow Rate (L/min) 2 Oxygen Delivery Method Room Air Weight: 187 kg Body Mass Index (BMI) 55.3 Intake and Output for Last 24 Hours 04/02/20 04/03/20 04/04/20 23:59 23:59 23:59 Intake Total 5813.27 / 5813.27 1576.66 / 1576.66 Output Total 1575 / 2375 3800 / 3800 Balance 4238.27 / 3438.27 -2223.34 / -2223.34 General: Alert, No apparent distress HEENT: Atraumatic, Normocephalic Oral: Moist Mucosa, No Gingival or Mucosal Lesions/ Ulcerations Neck: No Nodes, Thyroid Normal Size and Texture Lungs: Clear to auscultation, Normal air movement, No rhonchi, No wheeze Cardiovascular: Regular rate, Regular Rhythm, Normal S1, Normal S2, No murmurs Abdomen: Bowel Sounds Present, Soft, Non Tender, Non-Distended, No Hepato- splenomegaly Extremities: No Calf Tenderness, Edema Skin: No rashes, No breakdown Psych/Mental Status: Normal Affect, Appropriate Laboratory Results 04/03/20 07:56: COVID-19 (DOMINICK) Negative 04/03/20 09:29: Lactic Acid 2.2 H* 04/03/20 11:18: POC Glucose 116 H 04/03/20 12:30: Troponin I < 0.015 04/03/20 15:35: Urine Color Yellow, Urine Clarity Clear, Urine pH 5.0, Ur Specific [place] 1.015, Urine Protein 30 H, Urine Glucose (UA) Normal, Urine Ketones Negative, Urine Occult Blood 250 H, Urine Nitrite Negative, Urine Bilirubin Negative, Urine Urobilinogen Normal, Ur Leukocyte Esterase Negative, Urine RBC 0-5 SEEN, Urine WBC 0-5 SEEN, Ur Squamous Epith Cells 0 SEEN, Urine Bacteria 2+, Hyaline Casts 5-10 SEEN, Urine Mucus 0 SEEN 04/03/20 15:35: Eos Smear Total Cells Pending 04/03/20 16:10: Troponin I < 0.015 04/03/20 17:41: POC Glucose 111 H 04/03/20 18:30: Troponin I < 0.015 04/03/20 18:45: Urine Creatinine 120.00 04/03/20 18:45: Urine Urea Nitrogen 550 04/03/20 20:35: POC Glucose 135 H 04/04/20 05:30: WBC 11.9 H, RBC 3.70 L, Hgb 10.8 L, Hct 34.5 L, MCV 93.2, MCH 29.2, MCHC 31.3 L, RDW Std Deviation 45.6 H, RDW Coeff of Jak 13.4, Plt Count 129 L, MPV 9.6, Immature Gran % (Auto) 0.600, Neut % (Auto) 76.8 H, Lymph % (Auto) 13.4 L, [place] % (Auto) 6.6, Eos % (Auto) 2.2, Baso % (Auto) 0.4, Absolute Neuts (auto) 9.1 H, Absolute Lymphs (auto) 1.59, Nucleated RBC % 0 04/04/20 05:30: Sodium 139, Potassium 4.4, Chloride 109 H, Carbon Dioxide 25.0, Anion Gap 5, BUN 39 H, Creatinine 2.52 H, Estim Creat Clear Calc 32.08, Est GFR (MDRD) Af Amer 33 L, Est GFR (MDRD) Non-Af 27 L, BUN/Creatinine Ratio 15.5, Glucose 81, Calcium 8.1 L 04/04/20 05:30: Random Vancomycin 9.5 Current Medications Acetaminophen (Tylenol) 650 mg PO Q6H PRN PRN PRN Reason: T>100.F /Pain 1-05/22 Last Admin: 04/04/20 00:18 Dose: 650 mg Documented by: Hydrocodone Bitart/Acetaminophen ([place] 5mg-325mg) 1 tablet PO Q6H PRN PRN Reason: Pain Score 6-1010 Last Admin: 04/03/20 20:46 Dose: 1 tablet Documented by: Apixaban (Eliquis) 5 mg PO BID [facility] Aspirin (Aspirin, Baby) 81 mg PO DAILY@0800 [facility] Last Admin: 04/04/20 08:39 Dose: 81 mg Documented by: Atorvastatin Calcium (Lipitor) 20 mg PO QHS [facility] Last Admin: 04/03/20 20:32 Dose: 20 mg Documented by: Dextrose (D50w Syringe) 0 gm IV X1 PRN; Protocol PRN Reason: Hypoglycemia Gabapentin (Neurontin) 600 mg PO TIDCM [facility] Last Admin: 04/04/20 08:39 Dose: 600 mg Documented by: Glucagon () 1 mg IM .X1 PRN PRN Reason: Hypoglycemia Vancomycin IV Pharmacy to Dose (1 ea/ Sodium Chloride) 500 mls @ 250 mls/hr IV X1 PRN; Protocol PRN Reason: Rx to Dose Lactated Ringer's () 1,000 mls @ 0 mls/hr IV .Q10H [facility] Last Infusion: 04/04/20 06:38 Dose: 0 mls/hr Documented by: Sodium Chloride () 250 mls @ 15 mls/hr IV .[id number] PRN PRN Reason: Saline Flush Sodium Chloride () 250 mls @ 15 mls/hr IV .[id number] PRN PRN Reason: Additional IVPB Infusion Vancomycin HCl 1,500 mg/ (Sodium Chloride) 530 mls @ 250 mls/hr IV Q24H [facility] Last Admin: 04/04/20 06:38 Dose: 250 mls/hr Documented by: Cefepime HCl 2 gm/ Sodium (Chloride) 100 mls @ 200 mls/hr IV Q12 [facility] Last Admin: 04/04/20 09:12 Dose: 200 mls/hr Documented by: Insulin Glargine (Lantus (Bkc)) 65 units SC QHS [facility] Last Admin: 04/03/20 20:36 Dose: 65 u Documented by: Insulin Human Lispro (Humalog Kwikpen (Bkc)) 20 unit SC TIDAC [facility] Last Admin: 04/04/20 08:35 Dose: 20 units Documented by: Insulin Human Lispro (Humalog Kwikpen (Bkc)) 0 unit SC TIDAC [facility]; Protocol Last Admin: 04/04/20 08:36 Dose: Not Given Documented by: Metoprolol Tartrate (Lopressor (Beta Jaskaran)) 25 mg PO BID [facility] Last Admin: 04/04/20 08:39 Dose: 25 mg Documented by: Multivitamins (Multivitamin) 1 tablet PO DAILY@0800 [facility] Last Admin: 04/04/20 08:39 Dose: 1 tablet Documented by: Ondansetron HCl (Zofran) 4 mg IV Q8H PRN PRN PRN Reason: NAUSEA/VOMITING Senna/Docusate Sodium (Senokot-S, Lianna-Colace) 2 tablet PO BID [facility] Last Admin: 04/04/20 08:39 Dose: 2 tablet Documented by: Sodium Chloride () 10 - 40 ml IV UD PRN PRN Reason: SALINE FLUSH Last Admin: 04/04/20 06:46 Dose: 10 ml Documented by: Sodium Chloride () 10 - 40 ml IV UD PRN PRN Reason: SALINE FLUSH Tizanidine HCl (Zanaflex) 4 mg PO Q8H PRN PRN Reason: pain STROKE Vital Signs/Narrative: Vital Signs Temp Pulse Resp BP BP Pulse Ox 04/04/20 09:00 89 13 151/86 H 96 04/04/20 08:39 92 139/82 H 04/04/20 08:11 96 04/04/20 08:00 37.9 C H 83 13 139/82 H 94 04/04/20 07:00 37.8 C H 78 14 132/72 H 93 04/04/20 06:00 38.0 C H 73 15 117/55 L 98 Medical Necessity - Tobacco Use Smoking Status: Former smoker Tobacco Use: Non-smoker Assessment/Plan All Active Problems Status post lumbar surgery (Acute) 1. Septic shock * resolved * Etiology is likely related with left lower extremity cellulitis. * Blood cultures ordered and drawn already in the emergency room., COVID-19 negative. UA negative. * Received the 30 cc/kg IV bolus of fluids. * I do not suspect the patient will require any pressors at this time but if so, patient will require central line. * Cefepime and vancomycin 2. Left lower extremity cellulitis * Patient has new erythema involving the distal left lower extremity. Is not warm but seems to be the most likely culprit of his septic shock. * Patient received Rocephin and vancomycin in the emergency room. * Will continue with the vancomycin for now. 3. Acute kidney injury * FEUrea 40.15%. Likely ATN * Improving. * Currently holding metolazone, lisinopril * No need for renal replacement therapy at this time * Received 1 time dose of furosemide. 4. History of VTE * Patient has what sounds like a massive pulmonary embolism, possible saddle pulmonary emboli related with orthopedic surgery * Has been on anticoagulation since 2013 * Continue with rivaroxaban 5. Diabetes mellitus type 2 * fair control * Continue with his basal insulin, prandial insulin. Hold off on metformin given the acute kidney injury. * Sliding scale insulin 6. Lymphedema * Patient had a recent left heart catheterization in [facility] partly to evaluate the reason for his lymphedema. I suspect patient has pulmonary hypertension with his underlying sleep apnea and history of VTE though I do not know the quality of it. * Diuretics being held given above * Check records from [facility] 7. VTE prophylaxis: Not indicated as patient is already anticoagulated. 8. Advanced care planning: Discussed with the patient. Discussed CPR and what that entails. Patient wishes to be full CODE STATUS at this time. Inpatient E&M: [id number] Subs Hosp L2
[2020-04-04 09:20] LABS: Bedside Glucose 86 mg/dL (70-110)
[2020-04-04 13:11] LABS: Bedside Glucose 116 mg/dL (70-110)
--- NOTE | 2020-04-04 14:14 | PCA ---
sent a request for medical records to [facility]
[2020-04-04] MEDS: HYDROcodone Bitartrate/Apap 5/325 Tablet PO (14:43)
[2020-04-04 17:46] LABS: Bedside Glucose 108 mg/dL (70-110)
[2020-04-04] MEDS: APIXABAN 5 MG TABLET PO (22:01)
[2020-04-04] MEDS: Atorvastatin Calcium 20 MG Tablet PO (22:02)
[2020-04-04 22:31] LABS: Bedside Glucose 177 mg/dL (70-110)
[2020-04-05] VITALS (12 sets, daily range): BP systolic 146–163; BP diastolic 72–95; PULSE 69–87; RESP 17–18; TEMP 36.6–37.2; O2SAT 93–97
[2020-04-05] MEDS: 0.9% Saline Lock 10 ML Syringe IV ×2 (06:11→21:43)
[2020-04-05 06:35] LABS: Absolute Lymphocyte Count 1.95 X10^3/uL (0.83-4.51); Absolute Neutrophil Count 6.6 X10^3/uL (2.0-7.7); Basophil# 0.05 X10^3/uL; Basophil% 0.5 % (0-1); Eosinophil# 0.37 X10^3/uL; Eosinophils% 3.7 % (0-5); Hematocrit 37.5 % (40-54); Hemoglobin 12.3 g/dL (13.0-16.5); Lymphocyte # 1.95 X10^3/ul (4.0); Lymphocyte % 19.4 % (19-41); Mean Corp Hgb Conc 32.8 g/dL (32-36); Mean Corpuscular Volume 91.5 fL (80-94); Monocyte# 1.04 X10^3/uL; Monocyte% 10.4 % (0-10); NRBC Flagged by Analyzer 0 % (0-5); Neutrophil # 6.56 X10^3/uL (2.7-7.7); Neutrophil % 65.4 % (47-70); Platelet Count 145 K/mm3 (150-450); RBC Distribution Width CV 13.2 % (11.6-14.6); RBC Distribution Width SD 43.4 fl (35.1-43.9)
[2020-04-05 07:07] LABS: Anion Gap 7 (5-15); BUN 28 mg/dL (7-18); BUN/Creat Ratio 14.7 RATIO (10-20); Calcium,Total 8.3 mg/dL (8.5-10.1); Chloride 109 mmol/L (98-107); EST Glomerular Filtration Rate 38 mL/min (>60); Est Glom Filt Rate - Afr Amer 46 mL/min (>60); Estimated Creatinine Clearance 42.54 ml/min; Glucose 114 mg/dL (74-106); Potassium 4.5 mmol/L (3.5-5.1); Sodium Level 140 mmol/L (136-145)
[2020-04-05] MEDS: Multivitamins,Therapeutic Tablet 1 TABLET PO (07:45)
[2020-04-05] MEDS: Gabapentin 600 MG Tablet PO ×3 (07:45→17:30)
[2020-04-05] MEDS: Insulin Lispro 100 UNIT/ML INSULN.PEN 20 UNIT SC ×3 (07:46→17:30)
[2020-04-05] MEDS: Aspirin 81 MG TAB.CHEW PO (07:51)
[2020-04-05] MEDS: Acetaminophen 325 MG Tablet 650 MG PO ×2 (07:51→21:35)
[2020-04-05 08:05] LABS: Bedside Glucose 124 mg/dL (70-110)
--- NOTE | 2020-04-05 08:44 | PN_ITS ---
Subjective: The patient was seen and examined at the bedside this morning. Events from the last 24 hours have been reviewed. The patient is currently afebrile, hemodynamically stable and maintaining appropriate oxygen saturations on room air. The patient was compliant with nocturnal BiPAP therapy per home regimen. He denies any shortness of breath this morning. Objective: The patient's most recent lab work, culture data and imaging studies have all been personally reviewed. Blood and urine cultures have shown no growth to d ate. - Physical Exam Vitals/I&O's: Vital Signs Temp Pulse Resp BP Pulse Ox 98.2 F 77 18 150/85 H 96 04/05/20 04:10 04/05/20 07:11 04/05/20 04:10 04/05/20 04:10 04/05/20 07:45 Oxygen Flow Rate (L/min) 2 Oxygen Delivery Method Room Air Weight: 405 lb 6.881 oz Body Mass Index (BMI) 55.3 Intake and Output for Last 24 Hours 04/03/20 04/04/20 04/05/20 23:59 23:59 23:59 Intake Total 5813.27 / 5813.27 4593.33 / 4593.33 Output Total 1575 / 2375 8475 / 8475 850 / 850 Balance 4238.27 / 3438.27 -3881.67 / -3881.67 -850 / -850 General: Alert, Cooperative, No apparent distress HEENT: Atraumatic, PERRLA, Normocephalic Oral: No Gingival or Mucosal Lesions/ Ulcerations Neck: Supple, No Nodes, Trachea Midline Lungs: No rhonchi, No wheeze, No rales, Diminished Cardiovascular: Regular rate, Regular Rhythm Abdomen: Bowel Sounds Present, Soft, Non Tender, Obese Extremities: No clubbing, No cyanosis, Edema Skin: - - Improving left lower extremity cellulitis Musculoskeletal: No Muscle Wasting Lymphatic: No Cervical, Supraclavicular, or Inguinal Adenopathy Neurological: Cranial nerves II-XII grossly intact, Neuro grossly intact Psych/Mental Status: Alert and oriented to time, place, person, mood and affect Labs (Last 48 Hours) 04/03/20 04/03/20 04/03/20 07:56 09:29 11:18 WBC RBC Hgb Hct MCV MCH MCHC RDW Std Deviation RDW Coeff of Jak Plt Count MPV Immature Gran % (Auto) Neut % (Auto) Lymph % (Auto) Irion % (Auto) Eos % (Auto) Baso % (Auto) Absolute Neuts (auto) Absolute Lymphs (auto) Nucleated RBC % Eos Smear Total Cells Sodium Potassium Chloride Carbon Dioxide Anion Gap BUN Creatinine Estim Creat Clear Calc Est GFR (MDRD) Af Amer Est GFR (MDRD) Non-Af BUN/Creatinine Ratio Glucose Lactic Acid 2.2 H* Calcium Troponin I Urine Color Urine Clarity Urine pH Ur Specific [place] Urine Protein Urine Glucose (UA) Urine Ketones Urine Occult Blood Urine Nitrite Urine Bilirubin Urine Urobilinogen Ur Leukocyte Esterase Urine RBC Urine WBC Ur Squamous Epith Cells Urine Bacteria Hyaline Casts Urine Mucus Urine Creatinine Urine Urea Nitrogen Random Vancomycin COVID-19 (DOMINICK) Negative POC Glucose 116 H 04/03/20 04/03/20 04/03/20 12:30 15:35 15:35 WBC RBC Hgb Hct MCV MCH MCHC RDW Std Deviation RDW Coeff of Jak Plt Count MPV Immature Gran % (Auto) Neut % (Auto) Lymph % (Auto) Ir[place] % (Auto) Eos % (Auto) Baso % (Auto) Absolute Neuts (auto) Absolute Lymphs (auto) Nucleated RBC % Eos Smear Total Cells Pending Sodium Potassium Chloride Carbon Dioxide Anion Gap BUN Creatinine Estim Creat Clear Calc Est GFR (MDRD) Af Amer Est GFR (MDRD) Non-Af BUN/Creatinine Ratio Glucose Lactic Acid Calcium Troponin I < 0.015 Urine Color Yellow Urine Clarity Clear Urine pH 5.0 Ur Specific [place] 1.015 Urine Protein 30 H Urine Glucose (UA) Normal Urine Ketones Negative Urine Occult Blood 250 H Urine Nitrite Negative Urine Bilirubin Negative Urine Urobilinogen Normal Ur Leukocyte Esterase Negative Urine RBC 0-5 SEEN Urine WBC 0-5 SEEN Ur Squamous Epith Cells 0 SEEN Urine Bacteria 2+ Hyaline Casts 5-10 SEEN Urine Mucus 0 SEEN Urine Creatinine Urine Urea Nitrogen Random Vancomycin COVID-19 (DOMINICK) POC Glucose 04/03/20 04/03/20 04/03/20 16:10 17:41 18:30 WBC RBC Hgb Hct MCV MCH MCHC RDW Std Deviation RDW Coeff of Jak Plt Count MPV Immature Gran % (Auto) Neut % (Auto) Lymph % (Auto) Irion % (Auto) Eos % (Auto) Baso % (Auto) Absolute Neuts (auto) Absolute Lymphs (auto) Nucleated RBC % Eos Smear Total Cells Sodium Potassium Chloride Carbon Dioxide Anion Gap BUN Creatinine Estim Creat Clear Calc Est GFR (MDRD) Af Amer Est GFR (MDRD) Non-Af BUN/Creatinine Ratio Glucose Lactic Acid Calcium Troponin I < 0.015 < 0.015 Urine Color Urine Clarity Urine pH Ur Specific [place] Urine Protein Urine Glucose (UA) Urine Ketones Urine Occult Blood Urine Nitrite Urine Bilirubin Urine Urobilinogen Ur Leukocyte Esterase Urine RBC Urine WBC Ur Squamous Epith Cells Urine Bacteria Hyaline Casts Urine Mucus Urine Creatinine Urine Urea Nitrogen Random Vancomycin COVID-19 (DOMINICK) POC Glucose 111 H 04/03/20 04/03/20 04/03/20 18:45 18:45 20:35 WBC RBC Hgb Hct MCV MCH MCHC RDW Std Deviation RDW Coeff of Jak Plt Count MPV Immature Gran % (Auto) Neut % (Auto) Lymph % (Auto) [place] % (Auto) Eos % (Auto) Baso % (Auto) Absolute Neuts (auto) Absolute Lymphs (auto) Nucleated RBC % Eos Smear Total Cells Sodium Potassium Chloride Carbon Dioxide Anion Gap BUN Creatinine Estim Creat Clear Calc Est GFR (MDRD) Af Amer Est GFR (MDRD) Non-Af BUN/Creatinine Ratio Glucose Lactic Acid Calcium Troponin I Urine Color Urine Clarity Urine pH Ur Specific [place] Urine Protein Urine Glucose (UA) Urine Ketones Urine Occult Blood Urine Nitrite Urine Bilirubin Urine Urobilinogen Ur Leukocyte Esterase Urine RBC Urine WBC Ur Squamous Epith Cells Urine Bacteria Hyaline Casts Urine Mucus Urine Creatinine 120.00 Urine Urea Nitrogen 550 Random Vancomycin COVID-19 (DOMINICK) POC Glucose 135 H 04/04/20 04/04/20 04/04/20 05:30 05:30 05:30 WBC 11.9 H RBC 3.70 L Hgb 10.8 L Hct 34.5 L MCV 93.2 MCH 29.2 MCHC 31.3 L RDW Std Deviation 45.6 H RDW Coeff of Jak 13.4 Plt Count 129 L MPV 9.6 Immature Gran % (Auto) 0.600 Neut % (Auto) 76.8 H Lymph % (Auto) 13.4 L Irion % (Auto) 6.6 Eos % (Auto) 2.2 Baso % (Auto) 0.4 Absolute Neuts (auto) 9.1 H Absolute Lymphs (auto) 1.59 Nucleated RBC % 0 Eos Smear Total Cells Sodium 139 Potassium 4.4 Chloride 109 H Carbon Dioxide 25.0 Anion Gap 5 BUN 39 H Creatinine 2.52 H Estim Creat Clear Calc 32.08 Est GFR (MDRD) Af Amer 33 L Est GFR (MDRD) Non-Af 27 L BUN/Creatinine Ratio 15.5 Glucose 81 Lactic Acid Calcium 8.1 L Troponin I Urine Color Urine Clarity Urine pH Ur Specific [place] Urine Protein Urine Glucose (UA) Urine Ketones Urine Occult Blood Urine Nitrite Urine Bilirubin Urine Urobilinogen Ur Leukocyte Esterase Urine RBC Urine WBC Ur Squamous Epith Cells Urine Bacteria Hyaline Casts Urine Mucus Urine Creatinine Urine Urea Nitrogen Random Vancomycin 9.5 COVID-19 (DOMINICK) POC Glucose 04/04/20 04/04/20 04/04/20 08:33 12:47 16:32 WBC RBC Hgb Hct MCV MCH MCHC RDW Std Deviation RDW Coeff of Jak Plt Count MPV Immature Gran % (Auto) Neut % (Auto) Lymph % (Auto) [place] % (Auto) Eos % (Auto) Baso % (Auto) Absolute Neuts (auto) Absolute Lymphs (auto) Nucleated RBC % Eos Smear Total Cells Sodium Potassium Chloride Carbon Dioxide Anion Gap BUN Creatinine Estim Creat Clear Calc Est GFR (MDRD) Af Amer Est GFR (MDRD) Non-Af BUN/Creatinine Ratio Glucose Lactic Acid Calcium Troponin I Urine Color Urine Clarity Urine pH Ur Specific [place] Urine Protein Urine Glucose (UA) Urine Ketones Urine Occult Blood Urine Nitrite Urine Bilirubin Urine Urobilinogen Ur Leukocyte Esterase Urine RBC Urine WBC Ur Squamous Epith Cells Urine Bacteria Hyaline Casts Urine Mucus Urine Creatinine Urine Urea Nitrogen Random Vancomycin COVID-19 (DOMINICK) POC Glucose 86 116 H 108 04/04/20 04/05/20 04/05/20 21:56 06:24 06:24 WBC 10.0 RBC 4.10 L Hgb 12.3 L Hct 37.5 L MCV 91.5 MCH 30.0 MCHC 32.8 RDW Std Deviation 43.4 RDW Coeff of Jak 13.2 Plt Count 145 L MPV 10.0 Immature Gran % (Auto) 0.600 Neut % (Auto) 65.4 Lymph % (Auto) 19.4 Irion % (Auto) 10.4 H Eos % (Auto) 3.7 Baso % (Auto) 0.5 Absolute Neuts (auto) 6.6 Absolute Lymphs (auto) 1.95 Nucleated RBC % 0 Eos Smear Total Cells Sodium 140 Potassium 4.5 Chloride 109 H Carbon Dioxide 24.0 Anion Gap 7 BUN 28 H Creatinine 1.90 H Estim Creat Clear Calc 42.54 Est GFR (MDRD) Af Amer 46 L Est GFR (MDRD) Non-Af 38 L BUN/Creatinine Ratio 14.7 Glucose 114 H Lactic Acid Calcium 8.3 L Troponin I Urine Color Urine Clarity Urine pH Ur Specific [place] Urine Protein Urine Glucose (UA) Urine Ketones Urine Occult Blood Urine Nitrite Urine Bilirubin Urine Urobilinogen Ur Leukocyte Esterase Urine RBC Urine WBC Ur Squamous Epith Cells Urine Bacteria Hyaline Casts Urine Mucus Urine Creatinine Urine Urea Nitrogen Random Vancomycin COVID-19 (DOMINICK) POC Glucose 177 H 04/05/20 07:43 WBC RBC Hgb Hct MCV MCH MCHC RDW Std Deviation RDW Coeff of Jak Plt Count MPV Immature Gran % (Auto) Neut % (Auto) Lymph % (Auto) [place] % (Auto) Eos % (Auto) Baso % (Auto) Absolute Neuts (auto) Absolute Lymphs (auto) Nucleated RBC % Eos Smear Total Cells Sodium Potassium Chloride Carbon Dioxide Anion Gap BUN Creatinine Estim Creat Clear Calc Est GFR (MDRD) Af Amer Est GFR (MDRD) Non-Af BUN/Creatinine Ratio Glucose Lactic Acid Calcium Troponin I Urine Color Urine Clarity Urine pH Ur Specific [place] Urine Protein Urine Glucose (UA) Urine Ketones Urine Occult Blood Urine Nitrite Urine Bilirubin Urine Urobilinogen Ur Leukocyte Esterase Urine RBC Urine WBC Ur Squamous Epith Cells Urine Bacteria Hyaline Casts Urine Mucus Urine Creatinine Urine Urea Nitrogen Random Vancomycin COVID-19 (DOMINICK) POC Glucose 124 H Microbiology 04/03/20 05:10 Blood Culture (Wb) - Anticubital Right Blood Culture - Preliminary No growth in 48 hours. 04/03/20 04:55 Blood Culture (Wb) - Anticubital Left Blood Culture - Preliminary No growth in 48 hours. Clinical Impression(s) from Imaging Studies Brain CT 04/03/20 04:42 IMPRESSION: Chronic involutional changes of the brain. Electronically Signed: Ross Muro, at 5:54 EDT Tel , Service support , Cervical Spine CT 04/03/20 04:42 IMPRESSION: Multilevel degenerative changes, as described above. Electronically Signed: Ross Johnsonan, at 6:31 EDT Tel , Service support , Foot X-Ray 04/03/20 04:43 IMPRESSION: No acute bone injury of the foot. Electronically Signed: Hawkinssophy Muro, at 6:25 EDT Tel , Service support , Lumbar Spine X-Ray 04/03/20 04:43 IMPRESSION: There is fusion at L4-5 and L5-S1 in good alignment. Broken pedicular screws are seen at L4. No acute bony injury. Electronically Signed: Ross Muro, at 6:48 EDT Tel , Service support , Thoracic Spine X-Ray 04/03/20 04:43 IMPRESSION: Multilevel degenerative changes of the thoracic spine. Electronically Signed: Ross Muro, at 6:51 EDT Tel , Service support , Chest X-Ray 04/03/20 05:35 IMPRESSION: Possible pulmonary hypertension. There is no acute chest injury. Electronically Signed: Ross Muro, at 6:34 EDT Tel , Service support , Current Medications Acetaminophen (Tylenol) 650 mg PO Q6H PRN PRN PRN Reason: T>100.F /Pain 1-05/22 Last Admin: 04/05/20 07:51 Dose: 650 mg Documented by: Hydrocodone Bitart/Acetaminophen ([place] 5mg-325mg) 1 tablet PO Q6H PRN PRN Reason: Pain Score 6-1010 Last Admin: 04/04/20 14:43 Dose: 1 tablet Documented by: Apixaban (Eliquis) 5 mg PO BID ANI Last Admin: 04/04/20 22:01 Dose: 5 mg Documented by: Aspirin (Aspirin, Baby) 81 mg PO DAILY@0800 [facility] Last Admin: 04/05/20 07:51 Dose: 81 mg Documented by: Atorvastatin Calcium (Lipitor) 20 mg PO QHS [facility] Last Admin: 04/04/20 22:02 Dose: 20 mg Documented by: Dextrose (D50w Syringe) 0 gm IV X1 PRN; Protocol PRN Reason: Hypoglycemia Gabapentin (Neurontin) 600 mg PO TIDCM [facility] Last Admin: 04/05/20 07:45 Dose: 600 mg Documented by: Glucagon () 1 mg IM .X1 PRN PRN Reason: Hypoglycemia Vancomycin IV Pharmacy to Dose (1 ea/ Sodium Chloride) 500 mls @ 250 mls/hr IV X1 PRN; Protocol PRN Reason: Rx to Dose Sodium Chloride () 250 mls @ 15 mls/hr IV .[id number] PRN PRN Reason: Saline Flush Last Infusion: 04/04/20 22:11 Dose: 0 mls/hr Documented by: Sodium Chloride () 250 mls @ 15 mls/hr IV .[id number] PRN PRN Reason: Additional IVPB Infusion Vancomycin HCl 1,500 mg/ (Sodium Chloride) 530 mls @ 250 mls/hr IV Q24H [facility] Last Admin: 04/05/20 06:11 Dose: 250 mls/hr Documented by: Cefepime HCl 2 gm/ Sodium (Chloride) 100 mls @ 200 mls/hr IV Q12 [facility] Last Infusion: 04/04/20 22:49 Dose: Infused Documented by: Insulin Glargine (Lantus (Bkc)) 65 units SC QHS [facility] Last Admin: 04/04/20 22:02 Dose: 65 u Documented by: Insulin Human Lispro (Humalog Kwikpen (Bkc)) 20 unit SC TIDAC [facility] Last Admin: 04/05/20 07:46 Dose: 20 units Documented by: Insulin Human Lispro (Humalog Kwikpen (Bkc)) 0 unit SC TIDAC [facility]; Protocol Last Admin: 04/05/20 07:44 Dose: Not Given Documented by: Metoprolol Tartrate (Lopressor (Beta Jaskaran)) 25 mg PO BID [facility] Last Admin: 04/04/20 22:02 Dose: 25 mg Documented by: Multivitamins (Multivitamin) 1 tablet PO DAILY@0800 [facility] Last Admin: 04/05/20 07:45 Dose: 1 tablet Documented by: Ondansetron HCl (Zofran) 4 mg IV Q8H PRN PRN PRN Reason: NAUSEA/VOMITING Senna/Docusate Sodium (Senokot-S, Lianna-Colace) 2 tablet PO BID [facility] Last Admin: 04/04/20 21:59 Dose: Not Given Documented by: Sodium Chloride () 10 - 40 ml IV UD PRN PRN Reason: SALINE FLUSH Last Admin: 04/05/20 06:11 Dose: 10 ml Documented by: Sodium Chloride () 10 - 40 ml IV UD PRN PRN Reason: SALINE FLUSH Tizanidine HCl (Zanaflex) 4 mg PO Q8H PRN PRN Reason: pain Medical Necessity - Tobacco Use Smoking Status: Former smoker Tobacco Use: Non-smoker Assessment/Plan RECOMMENDATIONS: 1. Continue antimicrobials. 2. Continue Eliquis twice daily. 3. Encourage incentive spirometer use while in bed. Mobilize patient as tolerated. 4. Continue nocturnal PAP therapy. 5. As the patient is without further ICU needs, will sign off. IMPRESSIONS: 1. Severe sepsis secondary to left lower extremity cellulitis Improving with antimicrobial therapy. The patient remains hemodynamically stable. Continue antimicrobials as ordered. 2. Acute on chronic kidney disease Likely prerenal in etiology. Appears to be improving with volume expansion. Continue to monitor urine output. No current indication for renal replacement therapy. 3. Recent venous thromboembolism Continue Eliquis twice daily as ordered. 4. Morbid obesity/diabetes mellitus/chronic pain syndrome/hyperlipidemia/GRETCHEN Complicates care, management, recovery and prognosis. Continue BiPAP therapy per home regimen. This note was generated with [employer] dictation software. It may contain incorrect words, spelling, and punctuation that were not noted in checking the note before signing. Inpatient E&M: 94169 Subs Hosp L2
[2020-04-05] MEDS: Metoprolol Tartrate 25 MG Tablet PO ×2 (10:33→21:38)
[2020-04-05] MEDS: APIXABAN 5 MG TABLET PO (10:33)
[2020-04-05] MEDS: Senna/Docusate Sodium 1 Tablet 2 TABLET PO ×2 (10:34→21:37)
[2020-04-05] MEDS: Insulin Lispro 100 UNIT/ML INSULN.PEN SC (10:39)
[2020-04-05 10:40] LABS: Bedside Glucose 179 mg/dL (70-110)
--- NOTE | 2020-04-05 11:46 | CASEMGMT ---
ALLY LAUGHLIN assessment: Face to Face with patient for initial transition planning/care coordination assessment. ALLY LAUGHLIN introduced self and role at [facility], pt voices understanding and consents to assessment at this time. Pt is sitting up in chair in no distress at this time. Pt is A/Ox4 at this time and answers all questions appropriately at this time. Care providers, pharmacy, and demographics verified at this time. Presentation: Pt lost 'feet' when standing up and c/o back pain, foot pain Admitting dx: Septic shock PCP: [facility] Specialists: [facility] cardio at [facility]; [facility] vascular Preferred [facility]acy: [facility] Insurance: [facility] A/B, [place] Prescription Benefit: Silver rx [employer] Living Will/HPOA: Pt has LW/HPOA and is aware that they are on file at [facility] at this time. Pt states his , Shabana Spears, is HPOA. LNOK: Shabana Spears, /HPOA Living Arrangements: Pt states lives with in 1 story home with 5 steps in and states no concerns at home at this time. Pt states is independent with ADL's. Transportation: Pt states drives self and states no transportation concerns at this time. DME/HHC: Pt states has the following DME: walker, grab bars at toilet, tub bench, bipap, and 2 liters home oxygen bleed thru bipap at bedtime. Pt states no need for any further DME at this time. Pt does state concern about being switched from Xarelto(which he's been on since 2013 and has [employer] assist to obtain) to Eliquis. Per pt's online formulary for his Rx insurance, Eliquis is not covered at this time. Dr. Agarwal aware and states that pt's kidney function is improved so he can actually go back on the Xarelto at this time. Pt/ to be updated. Pt states has had HHC in the past s/p heart surgery but has never been to SNF. Pt states no concerns with going home at time of discharge. Pt is on disability. Pt states does not smoke or drink ETOH. Pt voices no further concerns/needs at this time. CM to follow for any further discharge planning/needs. Advised pt to ask for CM if any further questions/concerns/needs arise, voices understanding. Pt Goal: Home Plan: [place] ALLY LAUGHLIN
--- NOTE | 2020-04-05 15:36 | PCM.PROGNOTE ---
Subjective: Patient was seen and examined today, his blood pressure has elevated today, I have decided to place him back on an CARMEN inhibitor-his kidney function has improved, this morning his creatinine was 1.9. For now I will hold any diuretics. I removed the patient's Guido catheter today. Patient's white blood cell count today was normal, blood cultures show no growth, urine culture was positive for gram positive sameer, small amounts in the urine. Do not feel this is significant. - Physical Exam Vitals/I&O's: Vital Signs Temp Pulse Resp BP Pulse Ox 98 F 73 17 163/95 H 94 04/05/20 15:17 04/05/20 15:17 04/05/20 15:17 04/05/20 15:17 04/05/20 15:17 Oxygen Flow Rate (L/min) 2 Oxygen Delivery Method Room Air Weight: 183.9 kg Body Mass Index (BMI) 55.3 Intake and Output for Last 24 Hours 04/03/20 04/04/20 04/05/20 23:59 23:59 23:59 Intake Total 5813.27 / 5813.27 4593.33 / 4593.33 1330 / 1330 Output Total 1575 / 2375 8475 / 8475 2950 / 2950 Balance 4238.27 / 3438.27 -3881.67 / -3881.67 -1620 / -1620 General: Alert, Oriented x3, Cooperative, No apparent distress, Well developed, Well nourished HEENT: Atraumatic, PERRLA, EOMI, Normocephalic Oral: Moist Mucosa Neck: Supple, No JVD, Trachea Midline, Thyroid Normal Size and Texture Lungs: Clear to auscultation, Normal air movement, No rhonchi, No wheeze, No rales Cardiovascular: Regular rate, Regular Rhythm, Normal S1, Normal S2, No murmurs, No rub noted, No Gallop Abdomen: Bowel Sounds Present, Soft, Non Tender, Non-Distended, Obese Extremities: Capillary Refill Less than 3 Seconds, Edema - Chronic lymphedematous changes are noted over the left lower extremity, there is also redness noted with warmth to the left lower extremity, there is some generalized edema in the patient's left foot. Examination of the right lower extremity reveals some chronic edematous changes, no redness of the skin was noted however. Skin: No breakdown, Rash Present - Redness is present over the patient's left lower leg Musculoskeletal: No Tenderness to Palpation of Joints or Extremities Neurological: Cranial nerves II-XII grossly intact, Neuro grossly intact, Sensory exam intact to light touch and pain, Coordination normal Psych/Mental Status: Normal Affect, Appropriate, Alert and oriented to time, place, person, mood and affect Microbiology Past 72 Hours 04/03/20 15:35 Urine, Clean Catch Urine Culture - Preliminary Gram positive sameer 04/03/20 05:10 Blood Culture (Wb) - Anticubital Right Blood Culture - Preliminary No growth in 48 hours. 04/03/20 04:55 Blood Culture (Wb) - Anticubital Left Blood Culture - Preliminary No growth in 48 hours. Laboratory Results 04/04/20 16:32: POC Glucose 108 04/04/20 21:56: POC Glucose 177 H 04/05/20 06:24: WBC 10.0, RBC 4.10 L, Hgb 12.3 L, Hct 37.5 L, MCV 91.5, MCH 30.0, MCHC 32.8, RDW Std Deviation 43.4, RDW Coeff of Jak 13.2, Plt Count 145 L, MPV 10.0, Immature Gran % (Auto) 0.600, Neut % (Auto) 65.4, Lymph % (Auto) 19.4, [place] % (Auto) 10.4 H, Eos % (Auto) 3.7, Baso % (Auto) 0.5, Absolute Neuts (auto) 6.6, Absolute Lymphs (auto) 1.95, Nucleated RBC % 0 04/05/20 06:24: Sodium 140, Potassium 4.5, Chloride 109 H, Carbon Dioxide 24.0, Anion Gap 7, BUN 28 H, Creatinine 1.90 H, Estim Creat Clear Calc 42.54, Est GFR (MDRD) Af Amer 46 L, Est GFR (MDRD) Non-Af 38 L, BUN/Creatinine Ratio 14.7, Glucose 114 H, Calcium 8.3 L 04/05/20 07:43: POC Glucose 124 H 04/05/20 10:38: POC Glucose 179 H Current Medications Acetaminophen (Tylenol) 650 mg PO Q6H PRN PRN PRN Reason: T>100.F /Pain 1-05/22 Last Admin: 04/05/20 07:51 Dose: 650 mg Documented by: Hydrocodone Bitart/Acetaminophen ([place] 5mg-325mg) 1 tablet PO Q6H PRN PRN Reason: Pain Score 6-1010 Last Admin: 04/04/20 14:43 Dose: 1 tablet Documented by: Aspirin (Aspirin, Baby) 81 mg PO DAILY@0800 [facility] Last Admin: 04/05/20 07:51 Dose: 81 mg Documented by: Atorvastatin Calcium (Lipitor) 20 mg PO QHS [facility] Last Admin: 04/04/20 22:02 Dose: 20 mg Documented by: Dextrose (D50w Syringe) 0 gm IV X1 PRN; Protocol PRN Reason: Hypoglycemia Gabapentin (Neurontin) 600 mg PO TIDCM [facility] Last Admin: 04/05/20 10:34 Dose: 600 mg Documented by: Glucagon () 1 mg IM .X1 PRN PRN Reason: Hypoglycemia Vancomycin IV Pharmacy to Dose (1 ea/ Sodium Chloride) 500 mls @ 250 mls/hr IV X1 PRN; Protocol PRN Reason: Rx to Dose Sodium Chloride () 250 mls @ 15 mls/hr IV .[id number] PRN PRN Reason: Saline Flush Last Infusion: 04/05/20 11:58 Dose: 15 mls/hr Documented by: Sodium Chloride () 250 mls @ 15 mls/hr IV .[id number] PRN PRN Reason: Additional IVPB Infusion Vancomycin HCl 1,500 mg/ (Sodium Chloride) 530 mls @ 250 mls/hr IV Q24H [facility] Last Infusion: 04/05/20 10:27 Dose: Infused Documented by: Cefepime HCl 2 gm/ Sodium (Chloride) 100 mls @ 200 mls/hr IV Q12 [facility] Last Infusion: 04/05/20 11:30 Dose: Infused Documented by: Insulin Glargine (Lantus (Bkc)) 65 units SC QHS [facility] Last Admin: 04/04/20 22:02 Dose: 65 u Documented by: Insulin Human Lispro (Humalog Kwikpen (Bkc)) 20 unit SC TIDAC [facility] Last Admin: 04/05/20 10:39 Dose: 20 units Documented by: Insulin Human Lispro (Humalog Kwikpen (Bkc)) 0 unit SC TIDAC [facility]; Protocol Last Admin: 04/05/20 10:39 Dose: 1 unit Documented by: Lisinopril (Zestril) 40 mg PO X1 ONE Stop: 04/05/20 15:35 Lisinopril (Zestril) 40 mg PO DAILY [facility] Metoprolol Tartrate (Lopressor (Beta Jaskaran)) 25 mg PO BID [facility] Last Admin: 04/05/20 10:33 Dose: 25 mg Documented by: Multivitamins (Multivitamin) 1 tablet PO DAILY@0800 [facility] Last Admin: 04/05/20 07:45 Dose: 1 tablet Documented by: Ondansetron HCl (Zofran) 4 mg IV Q8H PRN PRN PRN Reason: NAUSEA/VOMITING Rivaroxaban (Xarelto) 15 mg PO DAILY@1700 [facility] Senna/Docusate Sodium (Senokot-S, Lianna-Colace) 2 tablet PO BID [facility] Last Admin: 04/05/20 10:34 Dose: 2 tablet Documented by: Sodium Chloride () 10 - 40 ml IV UD PRN PRN Reason: SALINE FLUSH Last Admin: 04/05/20 06:11 Dose: 10 ml Documented by: Sodium Chloride () 10 - 40 ml IV UD PRN PRN Reason: SALINE FLUSH Tizanidine HCl (Zanaflex) 4 mg PO Q8H PRN PRN Reason: pain Medical Necessity - Tobacco Use Smoking Status: Former smoker Tobacco Use: Non-smoker Assessment/Plan #1 severe sepsis secondary to left lower extremity cellulitis-organism unknown but suspected to be either staph or strep, for now I will continue vancomycin and cefepime, he will need to be transitioned to oral medications at the time of discharge. #2 type 2 diabetes-continue to monitor blood sugars, sliding scale insulin will be used as needed #3 acute kidney injury-on a backdrop of chronic kidney disease (I do not have a recent creatinine on the patient, patient's last creatinine before this admission was elevated indicating probable chronic kidney disease)-continue to monitor kidney function #4 essential hypertension-I have elected to place the patient back on an CARMEN inhibitor, his kidney functions will need to be monitored closely #5 chronic anticoagulation due to past history of thromboembolism-patient's GFR has improved and he is able to take Xarelto which he was on at home, his insurance plan will not cover Eliquis so I will discontinue his Eliquis and place him on Xarelto. #6 morbid obesity #7 Chronic lymphedema of the left lower extremity #8 hyperlipidemia
[2020-04-05 15:55] LABS: Bedside Glucose 114 mg/dL (70-110)
[2020-04-05] MEDS: Lisinopril 40 MG Tablet PO (17:30)
[2020-04-05] MEDS: Rivaroxaban 15 MG Tablet PO (17:36)
[2020-04-05] MEDS: Atorvastatin Calcium 20 MG Tablet PO (21:38)
[2020-04-05] MEDS: Doxazosin 4 MG Tablet PO (21:40)
[2020-04-05 21:50] LABS: Bedside Glucose 119 mg/dL (70-110)
[2020-04-06] VITALS (9 sets, daily range): BP systolic 131–154; BP diastolic 70–91; PULSE 83–99; RESP 18; TEMP 36.4–36.7; O2SAT 91–95
[2020-04-06 07:13] LABS: Vancomycin, Trough Level 11.3 ug/mL (5.0-15.0)
[2020-04-06 07:58] LABS: Anion Gap 9 (5-15); BUN 24 mg/dL (7-18); BUN/Creat Ratio 13.6 RATIO (10-20); Calcium,Total 8.6 mg/dL (8.5-10.1); Chloride 107 mmol/L (98-107); Creatinine, Serum 1.76 mg/dL (0.70-1.30); EST Glomerular Filtration Rate 42 mL/min (>60); Est Glom Filt Rate - Afr Amer 50 mL/min (>60); Estimated Creatinine Clearance 45.93 ml/min; Glucose 105 mg/dL (74-106); Potassium 4.1 mmol/L (3.5-5.1); Sodium Level 140 mmol/L (136-145)
[2020-04-06] MEDS: Insulin Lispro 100 UNIT/ML INSULN.PEN 20 UNIT SC (08:33)
[2020-04-06] MEDS: Multivitamins,Therapeutic Tablet 1 TABLET PO (08:36)
[2020-04-06] MEDS: Aspirin 81 MG TAB.CHEW PO (08:36)
[2020-04-06] MEDS: Gabapentin 600 MG Tablet PO (08:36)
[2020-04-06] MEDS: 0.9% Saline Lock 10 ML Syringe IV (08:39)
--- NOTE | 2020-04-06 09:08 | PCM.RX.CS ---
Consult Pharmacy has been consulted to manage selected antiobiotic: Vancomycin Type of Consult: Follow-up Suspected Infection: Sepsis Labs: Sodium 140 mmol/L (136-145) 04/06/20 06:26 Potassium 4.1 mmol/L (3.5-5.1) 04/06/20 06:26 Chloride 107 mmol/L (98-107) 04/06/20 06:26 Carbon Dioxide 24.0 mmol/L (21.0-32.0) 04/06/20 06:26 Anion Gap 9 (5-15) 04/06/20 06:26 BUN 24 mg/dL (7-18) H 04/06/20 06:26 Creatinine 1.76 mg/dL (0.70-1.30) H 04/06/20 06:26 Est GFR (MDRD) Af Amer 50 mL/min (>60) L 04/06/20 06:26 Est GFR (MDRD) Non-Af 42 mL/min (>60) L 04/06/20 06:26 BUN/Creatinine Ratio 13.6 RATIO (10-20) 04/06/20 06:26 Glucose 105 mg/dL (74-106) 04/06/20 06:26 Vancomycin Trough 11.3 ug/mL (5.0-15.0) 04/06/20 06:26 Random Vancomycin 9.5 ug/mL (0.0-15.0) 04/04/20 05:30 Microbiology: Microbiology 04/03/20 15:35 Urine, Clean Catch Urine Culture - Final Corynebacterium minutissimum 04/03/20 05:10 Blood Culture (Wb) - Anticubital Right Blood Culture - Preliminary No growth in 48 hours. 04/03/20 04:55 Blood Culture (Wb) - Anticubital Left Blood Culture - Preliminary No growth in 48 hours. Goal Trough: 15-20 mcg/mL Pharmacy Plan for Drug Dosing: VANCOMYCIN LEVEL RECEIVED Current Vancomycin Dose: 1500mg IV Q24hr Number of Doses Received: (1) initial + (2) scheduled, (1) post trough draw Vancomycin Level: 11.3 Hours Since Last Dose: 24hr Renal Function: SCr = 1.76 / CrCl = 46mL/min Renal Function Trend: improvement Lab/Micro: BCx NG x48h, UCx G(+) sameer Vancomycin Plan/Comments: Trough ordered drawn appropriately, but came back low. Will increase dose to 2g IV Q24h and check another troughprior to 3rd dose of new regimen. Will start vancomycin dose tomorrow, as pt already got dose today. Pending Level: 04/09/20 @0630 Pharmacy Service will continue to monitor and adjust dosing as required.
[2020-04-06 09:10] LABS: Bedside Glucose 115 mg/dL (70-110)
[2020-04-06] MEDS: Metoprolol Tartrate 25 MG Tablet PO (09:28)
[2020-04-06] MEDS: Senna/Docusate Sodium 1 Tablet 2 TABLET PO (09:28)
[2020-04-06] MEDS: Lisinopril 40 MG Tablet PO (09:28)
--- NOTE | 2020-04-06 10:08 | DCINST_ITS ---
You will use the following diet at home:: Calorie/Carbohydrate Controlled (specify 1200, 1400, etc) - 1800 madi Your food should be the consistency of: Regular Your liquids should be the consistency of: Regular/Thin Discharge Activity: Return to Normal Activity Weight Bearing Status: Full weight bearing Allergies/Adverse Reactions: Allergies Penicillins Allergy (Unknown, Verified 04/03/20 09:25) Hives erythromycin base [Erythromycin Base] Adverse Reaction (Verified 04/03/20 04:42) Nausea Medications to take at Discharge Tizanidine HCl [Zanaflex] 4 mg PO Q8H PRN 12/15/13 Atorvastatin Calcium [Lipitor] 20 mg PO QHS 08/27/15 Furosemide 40 mg PO DAILY 08/27/15 Insulin Glargine [Lantus SoloStar Pen] 65 units SC QHS 08/27/15 Multivitamins,Therapeutic [Multivitamin] 1 tablet PO DAILY 10/18/15 Potassium Chloride [Klor-Con 10] 20 meq PO DAILY 10/18/15 Metoprolol Tartrate [Lopressor (beta marie)] 25 mg PO BID 03/23/16 Rivaroxaban [Xarelto] 20 mg PO QHS 03/23/16 Gabapentin [Neurontin] 600 mg PO TIDCM #90 tablet 03/29/16 Insulin Aspart [Novolog Flexpen] 20 units SC TIDAC flexpen 03/29/16 Senna/Docusate Sodium [Senokot-S] 2 tablet PO BID tablet 03/29/16 Aspirin 81 mg PO DAILY 04/03/20 Doxazosin Mesylate [Cardura] 4 mg PO QHS 04/03/20 Dulaglutide [Trulicity] 0.75 injectable SQ QWEEK 04/03/20 Hydrocodone/Acetaminophen [Hydrocodon-Acetaminophen 5-325] 1 ea PO PRN PRN 04/03/20 Insulin Glargine,Hum.rec.anlog [Basaglar Kwikpen U-100] 100 unit SQ 04/03/20 Cefdinir [Omnicef [equiv]] 600 mg PO DAILY #14 cap 04/06/20 Lisinopril [Zestril] 40 mg PO DAILY tab 04/06/20 The following prescriptions were given: Cefdinir [Omnicef [equiv]] 600 mg PO DAILY #14 cap Transmission Status: Pending to [id number] Primary Care Physician: David Kate MD [Primary Care Provider] - Please follow up with your Primary Care Physician in: in one week-you will need BMP rechecked Test Results: Test results from this visit will be discussed in further detail at your follow- up appointment, if applicable.
--- NOTE | 2020-04-06 10:20 | CASEMGMT ---
This RN CM to room and pt states that he is aware of being switched back to Xarelto. Pt states no further concerns/needs at this time. Pt is awaiting dispo at this time. SStaten ALLY CM
--- NOTE | 2020-04-06 11:14 | PHA.DC.MC ---
Pharmacy Service has performed discharge medication reconciliation and counseling for this patient. 1. CEFDINIR 600MG PO DAILY X 7 DAYS The patient's discharge medication list was reviewed for discrepancies and discrepancies were resolved. Home Medications Tizanidine HCl [Zanaflex] 4 mg PO Q8H PRN 12/15/13 Atorvastatin Calcium [Lipitor] 20 mg PO QHS 08/27/15 Furosemide 40 mg PO DAILY 08/27/15 Insulin Glargine [Lantus SoloStar Pen] 65 units SC QHS 08/27/15 Multivitamins,Therapeutic [Multivitamin] 1 tablet PO DAILY 10/18/15 Potassium Chloride [Klor-Con 10] 20 meq PO DAILY 10/18/15 Metoprolol Tartrate [Lopressor (beta marie)] 25 mg PO BID 03/23/16 Rivaroxaban [Xarelto] 20 mg PO QHS 03/23/16 Gabapentin [Neurontin] 600 mg PO TIDCM #90 tablet 03/29/16 Insulin Aspart [Novolog Flexpen] 20 units SC TIDAC flexpen 03/29/16 Senna/Docusate Sodium [Senokot-S] 2 tablet PO BID tablet 03/29/16 Aspirin 81 mg PO DAILY 04/03/20 Doxazosin Mesylate [Cardura] 4 mg PO QHS 04/03/20 Dulaglutide [Trulicity] 0.75 injectable SQ QWEEK 04/03/20 Hydrocodone/Acetaminophen [Hydrocodon-Acetaminophen 5-325] 1 ea PO PRN PRN 04/03/20 Cefdinir [Omnicef [equiv]] 600 mg PO DAILY #14 cap 04/06/20 Lisinopril [Zestril] 40 mg PO DAILY tab 04/06/20 The patient was counseled on the following discharge medications and changes in medications for homegoing were reviewed. The Reason for Use, instructions for use, and potential side effects were reviewed for all new medications. The patient's questions regarding all of their medications were answered. The patient was able to verbally demonstrate an understanding of their discharge medications. Patient counseled by pharmacy technology instructor, Tawana.
[2020-04-06 17:11] LABS: Eosinophil Ct. Urine No Eosinophils Seen % (.)
--- NOTE | 2020-04-06 18:27 | PCM.DC.SUM ---
Discharge Date and Diagnosis Date of Admission: 04/03/20 Date of Discharge: 04/06/20 - Primary Discharge Diagnosis Acute Problems: #1 severe sepsis secondary to left lower extremity cellulitis #2 type 2 diabetes #3 acute kidney injury-on a backdrop of chronic kidney disease stage III #4 essential hypertension #5 chronic anticoagulation due to past history of thromboembolism #6 morbid obesity #7 Chronic lymphedema of the left lower extremity #8 hyperlipidemia - Secondary Discharge Diagnosis Chronic Problems: Chronic Problems GRETCHEN on CPAP (Chronic) VTE (venous thromboembolism) (Chronic) Spondylosis (Chronic) Nephrolithiasis (Chronic) Dyslipidemia (Chronic) HTN (hypertension) (Chronic) Diabetes mellitus (Chronic) BPH (benign prostatic hyperplasia) (Chronic) Super obesity (Chronic) bmi 52 Hospital Course and Treatment Operations: None Procedures: None Summary of Care Provided: The patient is a 64 year old M seen in the emergency room at [facility] after sustaining a mechanical fall at home when he could not hold himself up and he fell to the ground. Patient sustained no injuries, he remained weak however and came to the emergency room for evaluation. Evaluation in the ER revealed a rash over his left lower leg that was extensive and warm. Patient's white blood cell count was elevated at 24.8, potassium was elevated at 5.2, BUN was 46, creatinine was 4.03. Lactic acid was 2.9. Patient was felt to have severe sepsis from left lower leg cellulitis and was admitted to ICU and seen by critical care. Blood cultures were obtained that showed no growth, patient's creatinine was monitored and improved with fluid administration. Patient was ultimately transferred to PCU for ongoing care and was seen by PT and OT. On 04/06/2020, patient was seen and examined: On examination he appeared in good health and spirits. Vital signs as documented. Skin warm and dry and without overt rashes. Neck without JVD, neck was supple, trachea midline, thyroid was normal. Lungs clear bilaterally, normal air movement was noted. Heart exam notable for regular rhythm, normal sounds and absence of murmurs, rubs or gallops. Abdomen unremarkable and without evidence of organomegaly, masses, or abdominal aortic enlargement. Bowel sounds are present, abdomen is not distended. Extremities-generalized edema is noted over the right lower leg, severe edema is noted over the left lower leg along with lymphedematous changes to the left lower leg, no cyanosis was noted, no clubbing was noted. Neuro: Cranial nerves II through XII are grossly intact, no focal motor deficits were noted, sensation to light touch and pinprick intact, motor exam 5/5 throughout. Psych: Patient is alert and oriented x3, he does not appear anxious or depressed, he does not appear agitated. On 04/06/2020, patient was felt to be stable for discharge home. - Physical Exam Vitals/I&O's: Vital Signs Temp Pulse Resp BP Pulse Ox 98.0 F 87 18 151/91 H 93 04/06/20 11:15 04/06/20 11:15 04/06/20 11:15 04/06/20 11:15 04/06/20 11:15 Oxygen Flow Rate (L/min) 2 Oxygen Delivery Method Room Air Weight: 181.5 kg Body Mass Index (BMI) 55.3 Intake and Output for Last 24 Hours 04/04/20 04/05/20 04/06/20 23:59 23:59 23:59 Intake Total 4593.33 / 4593.33 2468.75 / 2468.75 1290 / 1290 Output Total 8475 / 8475 6000 / 6000 1325 / 1325 Balance -3881.67 / -3881.67 -3531.25 / -3531.25 -35 / -35 Microbiology Past 72 Hours 04/03/20 15:35 Urine, Clean Catch Urine Culture - Final Corynebacterium minutissimum 04/03/20 05:10 Blood Culture (Wb) - Anticubital Right Blood Culture - Preliminary No growth in 48 hours. 04/03/20 04:55 Blood Culture (Wb) - Anticubital Left Blood Culture - Preliminary No growth in 48 hours. Laboratory Results 04/03/20 15:35: Eos Smear Total Cells No Eosinophils Seen 04/05/20 21:33: POC Glucose 119 H 04/06/20 06:26: Vancomycin Trough 11.3 04/06/20 06:26: Sodium 140, Potassium 4.1, Chloride 107, Carbon Dioxide 24.0, Anion Gap 9, BUN 24 H, Creatinine 1.76 H, Estim Creat Clear Calc 45.93, Est GFR (MDRD) Af Amer 50 L, Est GFR (MDRD) Non-Af 42 L, BUN/Creatinine Ratio 13.6, Glucose 105, Calcium 8.6 04/06/20 08:31: POC Glucose 115 H Discharge Activity: Return to Normal Activity Weight Bearing Status: Full weight bearing Home Medications: Medications to take at Discharge Tizanidine HCl [Zanaflex] 4 mg PO Q8H PRN 12/15/13 Atorvastatin Calcium [Lipitor] 20 mg PO QHS 08/27/15 Furosemide 40 mg PO DAILY 08/27/15 Insulin Glargine [Lantus SoloStar Pen] 65 units SC QHS 08/27/15 Multivitamins,Therapeutic [Multivitamin] 1 tablet PO DAILY 10/18/15 Potassium Chloride [Klor-Con 10] 20 meq PO DAILY 10/18/15 Metoprolol Tartrate [Lopressor (beta marie)] 25 mg PO BID 03/23/16 Rivaroxaban [Xarelto] 20 mg PO QHS 03/23/16 Gabapentin [Neurontin] 600 mg PO TIDCM #90 tablet 03/29/16 Insulin Aspart [Novolog Flexpen] 20 units SC TIDAC flexpen 03/29/16 Senna/Docusate Sodium [Senokot-S] 2 tablet PO BID tablet 03/29/16 Aspirin 81 mg PO DAILY 04/03/20 Doxazosin Mesylate [Cardura] 4 mg PO QHS 04/03/20 Dulaglutide [Trulicity] 0.75 injectable SQ QWEEK 04/03/20 Hydrocodone/Acetaminophen [Hydrocodon-Acetaminophen 5-325] 1 ea PO PRN PRN 04/03/20 Cefdinir [Omnicef [equiv]] 600 mg PO DAILY #14 cap 04/06/20 Lisinopril [Zestril] 40 mg PO DAILY tab 04/06/20 Following Prescriptions Were Given to Patient: Cefdinir [Omnicef [equiv]] 600 mg PO DAILY #14 cap Transmission Status: Received by [id number] Primary Care Physician: David Kate MD [Primary Care Provider] - Please follow up with your Primary Care Physician in: in one week-you will need BMP rechecked Please Follow Up With: David Kate MD Disposition: Home Minutes spent on discharge:: 32 Patient Condition:: Stable Medical Necessity - Tobacco Use Smoking Status: Former smoker Tobacco Use: Non-smoker Meaningful Use Info Meaningful Use Diagnoses (Choose all that apply): None applicable Inpatient E&M: 34257 Disch Hosp
--- NOTE | 2020-04-07 15:16 | CASEMGMT ---
ALLY LAUGHLIN Discharge F/U Phone Call LACE: 11 Strata: 3 Discharge date: 04/06/2020 Call date: 04/07/2020 Call time: [id number] Admission dx: Septic Shock Pt states has been doing 'very good' since discharge and has been keeping leg elevated. Pt states no questions regarding discharge instructions/medications at this time. Pt states has f/u discharge phone interview with Dr. Kate and that he wants some more blood drawn but pt will call office and have them get bloodwork from admission. Pt states his only suggestion for [facility] would be that staff would offer for pt to 'get cleaned up or showered.' Pt voices no further questions/concerns/needs at this time. SStaten ALLY LAUGHLIN
== END 2020-04-06 11:47 | disposition home or self-care (01) | DRG 871 ==
LOC: ED 05:05 → ICU 09:24 → PCU 04-05 07:23
PROVIDERS: Hospitalist; Emergency Provider Emergency Medicine; PCP Internal Medicine; Visit Provider Internal Medicine
DX: A41.9 Sepsis, unspecified organism (principal); R65.21 Severe sepsis with septic shock; N17.0 Acute kidney failure with tubular necrosis; L03.116 Cellulitis of left lower limb; Z68.43 Body mass index [BMI] 50.0-59.9, adult; I12.9 Hypertensive chronic kidney disease with stage 1 through stage 4 chronic kidney disease, or unspecified chronic kidney disease; E11.22 Type 2 diabetes mellitus with diabetic chronic kidney disease; E11.65 Type 2 diabetes mellitus with hyperglycemia; N18.3 Chronic kidney disease, stage 3 (moderate); E78.5 Hyperlipidemia, unspecified; E66.01 Morbid (severe) obesity due to excess calories; I89.0 Lymphedema, not elsewhere classified; G47.33 Obstructive sleep apnea (adult) (pediatric); M47.9 Spondylosis, unspecified; N40.1 Benign prostatic hyperplasia with lower urinary tract symptoms; R33.8 Other retention of urine; G89.4 Chronic pain syndrome; W18.39XA Other fall on same level, initial encounter; Y92.009 Unspecified place in unspecified non-institutional (private) residence as the place of occurrence of the external cause; Z87.442 Personal history of urinary calculi; Z86.718 Personal history of other venous thrombosis and embolism; Z79.82 Long term (current) use of aspirin; Z79.4 Long term (current) use of insulin; Z79.01 Long term (current) use of anticoagulants; Z79.899 Other long term (current) drug therapy; Z87.891 Personal history of nicotine dependence
CPT/HCPCS: 36415; 70450; 71045; 72072; 72100; 72125; 73630; 80048; 80053; 80202; 81001; 82570; 82962; 83605; 84484; 84540; 85025; 85610; 85730; 87040; 87077; 87086; 87088; 87205; 87635; 90715; 94002; 94799; 97162; 97166; 97530; 97802; 99285; J7030; J7040; J7050; J7120; A4216; J0696; J1940; U0003

== ENCOUNTER 2022-02-22 20:00 | Observation (INO) | payer MEDICARE, BC, SELFPAY ==
[2022-02-22 20:03] VITALS: BP 110/74; PULSE 104; RESP 18; TEMP 36.8; O2SAT 98; BMI 52.7
--- NOTE | 2022-02-22 21:05 | EKG12_ITS ---
Test Reason : EDEMA Blood Pressure : / mmHG Vent. Rate : 103 BPM Atrial Rate : 103 BPM P-R Int : 184 ms QRS Dur : 104 ms QT Int : 340 ms P-R-T Axes : 033 -39 071 degrees QTc Int : 445 ms Sinus tachycardia Left axis deviation Abnormal ECG Confirmed by MALGORZATA HORTON, BHARAT ([id number]), acquisitions editor KRISTOPHER STEVE ([id number]) on 02/24/2022 10:31:46 A M Referred By: TRANG Confirmed By:MARLENA MCGARRY MD
--- NOTE | 2022-02-22 21:05 | RAD_ITS ---
STUDY: X-RAY CHEST REASON FOR EXAM: Male, 66 years old. WEAKNESS, LEG SWELLING TECHNIQUE: Single frontal view of the chest. COMPARISON: None. FINDINGS: The lungs are clear and expanded. There is no demonstrated pleural abnormality. Normal size heart. Normal mediastinum and mireya. Normal visualized pulmonary arteries. Normal visualized aortic arch and descending thoracic aorta. Normal visualized thoracic spine. Normal visualized ribs, clavicles, and shoulders. There is no demonstrated abnormality of the visualized soft tissue structures of the upper abdomen. RAD/Chest 1 View (Portable) IMPRESSION: Normal x-ray examination of the chest. Electronically Signed: Eli De La Vega MD at 22:38 EDT Reading Location ID and State: [id number] / Tel , Service support ,
--- NOTE | 2022-02-22 21:06 | RAD_ITS ---
STUDY: X-RAY - LEFT TIBIA AND FIBULA REASON FOR EXAM: Male, 66 years old. WEAKNESS, LEG SWELLING, ARTIFACT IN LOWER LEG IMAGING WAS IDENTIFIED A HIDDEN EKG LEAD POST IMAGING TECHNIQUE: AP and lateral view(s) of the tibia and fibula were obtained. COMPARISON: None. FINDINGS: No acute fracture or dislocation. Total knee replacement. No periprosthetic fracture. No evidence of loosening. Joint spaces are well-maintained. Normal alignment. Atherosclerotic vascular calcification. Mild soft tissue swelling. No radiopaque foreign body or soft tissue gas. RAD/Tibia & Fibula 2 Views IMPRESSION: No acute findings. Electronically Signed: Eli De La Vega MD at 22:37 EDT Reading Location ID and State: [id number] / Tel , Service support ,
--- NOTE | 2022-02-22 21:06 | RAD_ITS ---
STUDY: X-RAY - LEFT FEMUR REASON FOR STUDY: Male, 66 years old. PT STATED LOWER LEG SWELLING, WEAKNESS TECHNIQUE: AP and lateral view(s) of the femur. COMPARISON: None. FINDINGS: No acute fracture or dislocation. Total knee replacement. No periprosthetic fracture. No evidence of loosening. Joint effusion. Normal alignment. Atherosclerotic vascular calcification. No radiopaque foreign body or soft tissue gas. RAD/Femur Min 2 Views IMPRESSION: Joint effusion. No evidence of fracture. Electronically Signed: Eli De La Vega MD at 22:50 EDT Reading Location ID and State: [id number] / Tel , Service support ,
--- NOTE | 2022-02-22 21:07 | EDS_ITS ---
HPI History of Present Illness Chief Complaint: Edema Informant: patient Onset/Context/Timing Onset: Days Context: Gradual Onset Timing: Continuous Current Severity: Mild Maximum Severity: Mild Narrative Narrative: 66-year-old male history of prior DVT and PE on Xarelto, hypertension, diabetes and a left total knee replacement 2013. Family states he has not been doing well since February 14 when he developed left lower leg pain. He was seen at the [facility] in [place] by one of the nurse practitioners had a leg ultrasound done which showed no DVT. They placed him on antibiotics for 1 week for cellulitis. Family states it really has not improved. They return to the [facility] today and had x-rays done but do not know the results. After they went home he felt generally weak he was going to the house and his legs just got weak and he went down. He denies any injuries. Family states he just been weak for days. He has had some chills. And at times he seems confused. Prior similar symptoms: No Recent Illness/Hospitalization: No PFSH PFSH Home Medications tizanidine 4 mg tablet (Zanaflex) 4 mg PO Q8H PRN Pain 12/15/13 [History Last Taken 11/29/15 10:00 4 MG] atorvastatin 20 mg tablet 20 mg PO QHS 08/27/15 [History Last Taken Unknown] furosemide 40 mg tablet 80 mg PO DAILY 08/27/15 [History Last Taken 11/29/15 10:00 40 MG] insulin glargine 100 unit/mL (3 mL) subcutaneous pen (Lantus Solostar U-100 Insulin) 65 units subcut QHS 08/27/15 [History Last Taken 11/29/15 10:00 40 UNITS] multivitamin with folic acid 400 mcg tablet (Thera) 1 tab PO DAILY 10/18/15 [History Last Taken 11/29/15 10:00 1 TABLET] potassium chloride 10 mEq tablet,extended release (Klor-Con) 20 meq PO DAILY 10/18/15 [History Last Taken 11/29/15 10:00 10 MEQ] metoprolol tartrate 25 mg tablet 75 mg PO BID 03/23/16 [History Last Taken Unknown] rivaroxaban 20 mg tablet (Xarelto) 20 mg PO QHS 03/23/16 [History Last Taken Unknown] gabapentin 600 mg tablet 600 mg PO TIDCM ##90 03/29/16 [Rx Last Taken Unknown] insulin aspart U-100 100 unit/mL (3 mL) subcutaneous pen (Novolog Flexpen U-100 Insulin aspart) 20 units (0.2 mL) subcut TIDAC 03/29/16 [Rx Last Taken Unknown] aspirin 81 mg chewable tablet 81 mg PO DAILY 04/03/20 [History Last Taken Unknown] doxazosin 4 mg tablet 4 mg PO QHS 04/03/20 [History Last Taken Unknown] hydrocodone-acetaminophen 5-325mg 5mg-325mg 2 ea PO Q6H PRN PRN Pain Score 1- 05/2204/03/20 [History Last Taken Unknown] lisinopril 40 mg tablet 40 mg PO DAILY 04/06/20 [Rx Last Taken Unknown] albuterol sulfate 90 mcg/actuation aerosol inhaler 2 inh inhalation Q6H PRN PRN SOB 02/22/22 [History Last Taken Unknown] amlodipine 10 mg tablet 1 tab PO DAILY 02/22/22 [History Last Taken Unknown] dulaglutide 3 mg/0.5 mL subcutaneous pen injector (Trulicity) 3 mg subcut QWEEK 02/22/22 [History Last Taken Unknown] zinc 50 mg tablet 50 mg PO DAILY 02/22/22 [History Last Taken Unknown] Allergy/AdvReac Type Severity Reaction Status Date / Time Penicillins Allergy Unknown Hives Verified 02/22/22 20:03 erythromycin base AdvReac Nausea Verified 02/22/22 20:03 [Erythromycin Base] Social History Smoking Status: Former smoker ROS ROS ED ROS Narrative Weakness. Falls. Chills. Review of Systems ROS Unobtainable: Denies due to encephalopathy Constitutional Constitutional ED: Denies chills Cardiovascular Cardiovascular: Denies chest pain Respiratory/Chest Respiratory/Chest: Denies cough Gastrointestinal Gastrointestinal: Denies abdominal pain Genitourinary Genitourinary ED: Denies dysuria Musculoskeletal Musculoskeletal: Denies arthralgias Integumentary Denies abscess Neurologic Neurologic: Denies headache(s) Psychiatric Psychiatric: Denies anxiety Endocrine Endocrinology: Denies cold intolerance Hematologic/Lymphatic Hematologic/Lymphatic: Reports none Allergic/Immunologic Allergic/Immunologic ED: Denies mouth swelling or tongue swelling EXAM Physical Exam Narrative Exam Narrative: 66-year-old male no acute distress. Vital signs stable and afebrile. This is a 6 foot tall large male weighing around 380 pounds. He does not look septic or toxic. He is in no distress. 2 family members at bedside. H EENT exam unremarkable atraumatic. Lungs are clear equal symmetrical. Heart regular rhythm rate about 104 no murmur. Abdomen obese but soft nontender normal bowel sounds no peritoneal signs. Moving all 4 extremities. Dorsi plantarflexion i ntact. Both legs are swollen on the left much larger than the right. He has had a total knee replacement on the left. There is no signs of septic joint. There is no significant redness. There is no cords. His leg is swollen from the hip all the way down of his foot. There is no bony deformity. He can lift either leg off the bed. Neurologically is awake and alert. He is answering questions and following commands. Const Vital Signs: 02/22/22 20:03 02/22/22 22:01 Temperature 98.3 F Temperature Source Temporal Pulse Rate 104 H 103 H Respiratory Rate 18 20 H Blood Pressure 110/74 110/78 Blood Pressure Mean 86 88 Pulse Ox 98 92 Oxygen Delivery Method Room Air Room Air Positive well nourished, well developed and obese; Negative for cachectic, contractures or unkempt General Appearance ED: well developed; Negative for unkempt, cachectic or contractures Nutritional Appearance: obese; Negative for cachectic HEENT Reports moist mucous membranes Negative for trauma Eyes PERRL and EOMs intact bilaterally General Eye ED: Negative for pale conjunctiva or scleral icterus Neck no lymphadenopathy, supple and no JVD General: Negative for tenderness Lymph Lymphatic: Negative for other Chest Wall inspection of chest normal and palpation of chest normal Resp normal respiratory effort and clear to auscultation bilaterally Effort and Inspection: Negative for retractions Auscultation: Negative for rales Cardio regular rate, regular rhythm, S1 normal heart sound and S2 normal heart sound GI normal to inspection, nondistended, normoactive bowel sounds, non-tender, non- distended and no masses Inspection: Negative for abdominal distention Auscultation: normoactive bowel sounds Palpation: soft; Negative for tender or guarding Extremity Negative for normal to inspection Extremity Narrative: Bilateral lower extremity edema left greater than right. No deformity. Dorsi and plantar flexion intact. General Extremety ED: Yes edema General Extremity: edema Neuro oriented x3 Sensorium / Orientation: alert; Negative for lethargic or stuporous Motor Exam: general weakness Psych mental status grossly normal Appearance: Negative for unkempt Attitude: No agitated Mood & Affect: Negative for depressed Skin no rashes or lesions noted and no wounds Rashes: No rashes noted Trauma: Negative for abrasion Wounds: Negative for wounds noted MDM MDM MDM Narrative Medical decision making narrative: 66-year-old diabetic male on Xarelto weakness and falls at home with swelling of his left lower leg. Reportedly at the [facility] had a negative ultrasound a week ago. No DVT. He has been weak and confused. Recently. Filed today. X-rays and labs are being obtained. Repeat exam at 11:15 PM unchanged. Discussed with family and patient at bedside. There is unable to ambulate. He is weak and falling at home. We do not have a specific cause at this time for the swelling in the left leg. I will speak to the hospitalist and admit him for further evaluation and work-up. Currently his legs not red. Clinically does not look like a cellulitis. Lab Data Attestation: I reviewed the patient's lab results. Lab results narrative: CBC shows an elevated white count 18.6. H&H 11.7 and 36. Platelets are normal. Electrolytes show sodium 134 gap is 7 BUN of 46 creatinine 2.26. Liver enzymes unremarkable alk phos 149. Patient has a history of chronic renal insufficiency is his baseline. This is also his baseline anemia. He has had elevated white counts in the past. Labs: Laboratory Results - last 24 hr 02/22/22 02/22/22 21:18 21:18 WBC 18.6 H RBC 4.05 L Hgb 11.7 L Hct 36.1 L MCV 89.1 MCH 28.9 MCHC 32.4 RDW Std Deviation 39.6 RDW Coeff of Jak 12.1 Plt Count 417 MPV 9.2 Immature Gran % (Auto) 1.300 H Neut % (Auto) 84.3 H Lymph % (Auto) 7.9 L [place] % (Auto) 5.9 Eos % (Auto) 0.2 Baso % (Auto) 0.4 Absolute Neuts (auto) 15.7 H Absolute Lymphs (auto) 1.47 Nucleated RBC % 0 Sodium 134 L Potassium 5.0 Chloride 103 Carbon Dioxide 24.0 Anion Gap 7 BUN 46 H Creatinine 2.26 H Estim Creat Clear Calc 34.81 Est GFR (MDRD) Af Amer 37 L Est GFR (MDRD) Non-Af 31 L BUN/Creatinine Ratio 20.4 H Glucose 201 H Calcium 10.0 Total Bilirubin 0.60 AST 35 ALT 66 H Alkaline Phosphatase 149 H Total Protein 7.8 Albumin 2.5 L Globulin 5.3 H Albumin/Globulin Ratio 0.5 L Radiography Chest X-Ray - ED: 1 View, Read by ED Physician, Read by Radiologist, Heart, Lungs, Mediastinum, Bony Structures, No Acute Disease and Chronic Changes Diagnostic Testing: Clinical Impression(s) from Imaging Studies Chest X-Ray 02/22/22 21:05 IMPRESSION: Normal x-ray examination of the chest. Electronically Signed: Eli De La Vega MD at 22:38 EDT Reading Location ID and State: Chitra Orozco MD Tel , Service support , Femur X-Ray 02/22/22 21:06 IMPRESSION: Joint effusion. No evidence of fracture. Electronically Signed: Eli De La Vega MD at 22:50 EDT Reading Location ID and State: Chitra Orozco MD Tel , Service support , Tibia/Fibula X-Ray 02/22/22 21:06 IMPRESSION: No acute findings. Electronically Signed: Eli De La Vega MD at 22:37 EDT Reading Location ID and State: Chitra Orozco MD Tel , Service support , Brain CT 02/22/22 21:32 IMPRESSION: No acute findings. Mild microvascular ischemic changes. Atrophy. Electronically Signed: Eli De La Vega MD at 22:11 EDT Reading Location ID and State: Chitra Orozco MD Tel , Service support , Chest x-ray, portable, single view interpreted myself and radiologist shows no acute abnormality. Chronic changes. No infiltrate. Left femur x-ray shows chronic changes no acute process. Prosthetic left knee. Effusion. Interpreted by both myself and radiologist. Left tib-fib x-ray inter by myself shows no acute process. Chronic changes. Also interpreted by the radiologist. Rhythm Strip Rhythm Strip: Sinus Tach Rate: 103 Ectopy: None EKG Initial EKG: Attestation: I personally reviewed and interpreted this EKG as follows: Interpretation: Sinus Rhythm, No Acute Injury Pattern and Sinus Tachycardia Comments: Sinus tachycardia rate of 103 left axis deviation. No acute signs of NM or ischemia. Discharge Plan Triage Chief Complaint: Edema Other Complaint: Weakness ED Provider: Reinier Tenorio Dx/Rx/DC Orders Clinical Impression: Generalized weakness, Falls, Leukocytosis, Chronic kidney disease, Left leg swelling, Chronic anticoagulation, History of diabetes mellitus Prescriptions: No Action tizanidine [Zanaflex] 4 MG tablet 4 mg PO Q8H PRN (Reason: Pain) Label Comments: PAIN furosemide 40 MG tablet 80 mg PO DAILY Label Comments: diuretic atorvastatin 20 MG tablet 20 mg PO QHS Label Comments: reduce cholesterol insulin glargine [Lantus Solostar U-100 Insulin] 100 UNITS/ML insulin pen 65 units subcut QHS Label Comments: diabetes multivitamin with folic acid [Thera] 1 TABLET tablet 1 tab PO DAILY Label Comments: vitamin potassium chloride [Klor-Con 10] 10 MEQ tablet extended release 20 meq PO DAILY Label Comments: supplement metoprolol tartrate 25 MG tablet 75 mg PO BID Label Comments: reduce blood pressure Xarelto 20 MG tablet 20 mg PO QHS Label Comments: BLOOD THINNER insulin aspart U-100 [Novolog Flexpen U-100 Insulin] 100 UNITS/ML insulin pen 20 units subcut TIDAC 0RF Rx Instructions: 25 AT SUPPER gabapentin 600 MG tablet 600 mg PO TIDCM Qty: 90 0RF hydrocodone-acetaminophen 1 EACH tablet 2 ea PO Q6H PRN PRN (Reason: Pain Score 1-10/10) doxazosin 4 MG tablet 4 mg PO QHS aspirin 81 MG tablet,chewable 81 mg PO DAILY lisinopril 40 MG tablet 40 mg PO DAILY 0RF amlodipine 10 mg tablet 1 tab PO DAILY albuterol sulfate 90 mcg/actuation HFA aerosol inhaler 2 inh INHALATION Q6H PRN PRN (Reason: SOB) Trulicity 3 mg/0.5 mL Pen Injector 3 mg SUBCUT QWEEK zinc 50 mg Tablet 50 mg PO DAILY Primary Care Provider: David Kate Referrals: David Kate MD [Primary Care Provider] - Disposition Disposition: Acute Care Hospital [facility]
[2022-02-22 21:26] LABS: Absolute Lymphocyte Count 1.47 X10^3/uL (0.83-4.51); Absolute Neutrophil Count 15.7 X10^3/uL (2.0-7.7); Basophil# 0.08 X10^3/uL; Basophil% 0.4 % (0-1); Eosinophil# 0.03 X10^3/uL; Eosinophils% 0.2 % (0-5); Hematocrit 36.1 % (40-54); Hemoglobin 11.7 g/dL (13.0-16.5); Lymphocyte # 1.47 X10^3/ul (0.83-4.51); Lymphocyte % 7.9 % (19-41); Mean Corp Hgb Conc 32.4 g/dL (32-36); Mean Corpuscular Hgb 28.9 pg (27.0-32.0); Mean Corpuscular Volume 89.1 fL (80-94); Mean Platelet Vol. 9.2 fl (6.2-12.0); Monocyte% 5.9 % (0-10); NRBC Flagged by Analyzer 0 % (0-5); Neutrophil # 15.67 X10^3/uL (2.7-7.7); Neutrophil % 84.3 % (47-70); Platelet Count 417 K/mm3 (150-450); RBC Distribution Width CV 12.1 % (11.6-14.6); RBC Distribution Width SD 39.6 fl (35.1-43.9); Red Blood Count 4.05 M/mm3 (4.6-6.2); White Blood Count 18.6 K/mm3 (4.4-11.0)
--- NOTE | 2022-02-22 21:32 | CT_ITS ---
STUDY: CT BRAIN WITHOUT CONTRAST REASON FOR EXAM: Male, 66 years old. confusion RADIATION DOSAGE (If Supplied By Facility): CTDIvol = ( 44.99 ) mGy, DLP = ( 897.35 ) mGycm TECHNIQUE: Transaxial CT imaging of the brain was performed without administration of intravenous contrast material. Individualized dose optimization techniques were used for this CT. COMPARISON: 04/03/2020. FINDINGS: Normal soft tissue structures. Normal calvarium. There is mild cerebral atrophy with widening of the extra-axial spaces and ventricular dilatation. There are areas of decreased attenuation within the white matter tracts of the supratentorial brain, consistent with microvascular disease changes. There is no intracranial hemorrhage. There are no findings of an acute ischemic infarction. Normal visualized paranasal sinuses. CT/Brain/Head without Contrast IMPRESSION: No acute findings. Mild microvascular ischemic changes. Atrophy. Electronically Signed: Eli De La Vega MD at 22:11 EDT Reading Location ID and State: [id number] / Tel , Service support ,
[2022-02-22 21:47] LABS: ALB/GLOB Ratio 0.5 RATIO (0.9-2.4); AST(SGOT) 35 U/L (15-37); Alanine Aminotransfer ALT/SGPT 66 U/L (16-61); Albumin, Serum 2.5 g/dL (3.2-5.0); Alkaline Phosphatase 149 U/L (45-117); Anion Gap 7 (5-15); BUN 46 mg/dL (7-18); BUN/Creat Ratio 20.4 RATIO (10-20); Chloride 103 mmol/L (98-107); Creatinine, Serum 2.26 mg/dL (0.70-1.30); EST Glomerular Filtration Rate 31 mL/min (>60); Est Glom Filt Rate - Afr Amer 37 mL/min (>60); Estimated Creatinine Clearance 34.81 ml/min; Globulin 5.3 g/dL (2.2-4.2); Glucose 201 mg/dL (74-106); Protein, Total 7.8 g/dL (6.4-8.2); Sodium Level 134 mmol/L (136-145)
[2022-02-22 22:01] VITALS: BP 110/78; PULSE 103; RESP 20; O2SAT 92
--- NOTE | 2022-02-22 22:50 | ED.RN ---
PT'S SPO2 MAINTATINED @ 84% WHILE HE WAS DOZING OFF. 3L NC APPLIED. PER PT, HE WEARS BIPAP W/2L BLED IN.
--- NOTE | 2022-02-22 23:20 | HP.PCM.HOS_ITS ---
HPI - General General Date of Admission: 02/22/22 Date of Service: 02/22/22 Chief Complaint: Weakness, falls, BL LE swelling. HPI Narrative The patient is a 66 y/o M w/ PMHx: Chronic anemia, CKD stage III unclear subtype, Morbid Obesity, HTN, HLD, GRETCHEN on CPAP, Diabetes mellitus type II, BPH, Hx severe PE requiring thrombectomy and pericardial window/drainage on Xarelto, Former tobacco use, Chronic lymphedema who presents to the [facility] ED on 02/22/22 with history of decline since February 14 when patient had onset of left lower extremity pain with evaluation at [facility] with duplex ultrasound which demonstrated no DVT with placement of antibiotics for 1 week for concern of cellulitis with no improvement of symptoms despite this intervention with return to [facility] on day of presentation with plain films performed with uncle ar results with patient ongoing fatigue, malaise and weakness with fall without any injury secondary to his weakness with no fevers however reported chills and occasional intermittent confusion prompting family to bring him in for evaluation. He does report that when he fell recently fell onto the left knee and its been more painful since, worse primarily with palpitation of the left knee with more sharp discomfort when it occurs, 4-5 out of 10 in severity. Work-up in the ED included T98.3, heart rate 104, BP 110/74, respiratory rate 18, 92 to a 98% on room air, CBC with WC 18.6, hemoglobin 11.7, platelet 417 with left shift, CMP with sodium 134, BUN/creat 46/2.26, glucose 201, total bilirubin 0.60, AST/ALT 35/66, alk phos 146, chest x-ray with no acute cardiopulmonary findings, plain film of the left femur with joint effusion with no acute fracture, plain film left tib-fib with no acute findings, CT of the brain with no acute findings with mild microvascular ischemic changes and atr ophy, EKG with ST without acute evidence of ischemia. [facility] Medical History (Updated 02/23/22 @ 00:[address] Fatuma Cyr MD) BPH (benign prostatic hyperplasia) Diabetes mellitus Dyslipidemia Former tobacco use HTN (hypertension) Morbid obesity GRETCHEN treated with BiPAP VTE (venous thromboembolism) Home Medications tizanidine 4 mg tablet (Zanaflex) 4 mg PO Q8H PRN Pain 12/15/13 [History Last Taken 11/29/15 10:00 4 MG] atorvastatin 20 mg tablet 20 mg PO QHS 08/27/15 [History Last Taken Unknown] furosemide 40 mg tablet 80 mg PO DAILY 08/27/15 [History Last Taken 11/29/15 10:00 40 MG] insulin glargine 100 unit/mL (3 mL) subcutaneous pen (Lantus Solostar U-100 Insulin) 65 units subcut QHS 08/27/15 [History Last Taken 11/29/15 10:00 40 UNITS] multivitamin with folic acid 400 mcg tablet (Thera) 1 tab PO DAILY 10/18/15 [History Last Taken 11/29/15 10:00 1 TABLET] potassium chloride 10 mEq tablet,extended release (Klor-Con) 20 meq PO DAILY 10/18/15 [History Last Taken 11/29/15 10:00 10 MEQ] metoprolol tartrate 25 mg tablet 75 mg PO BID 03/23/16 [History Last Taken Unknown] rivaroxaban 20 mg tablet (Xarelto) 20 mg PO QHS 03/23/16 [History Last Taken Unknown] gabapentin 600 mg tablet 600 mg PO TIDCM ##90 03/29/16 [Rx Last Taken Unknown] insulin aspart U-100 100 unit/mL (3 mL) subcutaneous pen (Novolog Flexpen U-100 Insulin aspart) 20 units (0.2 mL) subcut TIDAC 03/29/16 [Rx Last Taken Unknown] aspirin 81 mg chewable tablet 81 mg PO DAILY 04/03/20 [History Last Taken Unknown] doxazosin 4 mg tablet 4 mg PO QHS 04/03/20 [History Last Taken Unknown] hydrocodone-acetaminophen 5-325mg 5mg-325mg 2 ea PO Q6H PRN PRN Pain Score 1- 05/2204/03/20 [History Last Taken Unknown] lisinopril 40 mg tablet 40 mg PO DAILY 04/06/20 [Rx Last Taken Unknown] albuterol sulfate 90 mcg/actuation aerosol inhaler 2 inh inhalation Q6H PRN PRN SOB 02/22/22 [History Last Taken Unknown] amlodipine 10 mg tablet 1 tab PO DAILY 02/22/22 [History Last Taken Unknown] dulaglutide 3 mg/0.5 mL subcutaneous pen injector (Trulicity) 3 mg subcut QWEEK 02/22/22 [History Last Taken Unknown] zinc 50 mg tablet 50 mg PO DAILY 02/22/22 [History Last Taken Unknown] Allergy/AdvReac Type Severity Reaction Status Date / Time Penicillins Allergy Unknown Hives Verified 02/22/22 20:03 erythromycin base AdvReac Nausea Verified 02/22/22 20:03 [Erythromycin Base] Family History (Updated 02/22/22 @ 23:[address] Fatuma Cyr MD) Mother Diabetes Heart disease Coagulopathy Father Heart disease CVA (cerebral vascular accident) Parkinsons disease Surgical History (Updated 02/22/22 @ 23:[address] Fatuma Cyr MD) History of vascular surgery Hx of laminectomy Hx of total knee replacement Status post creation of pericardial window Social History (Updated 02/23/22 @ 00:[address] Fatuma Cyr MD) household members: spouse Smoking Status: Former smoker how long ago did patient quit smoking: Quit 1994, smoked 1 ppd since age 15. alcohol intake: never substance use type: does not use ROS ROS Narrative Admission Review of Systems: CONSTITUTIONAL: No weight loss, fever, + chills, weakness or fatigue. HEENT: Eyes: No visual loss, blurred vision, double vision or yellow sclerae. Ears, Nose, Throat: No hearing loss, sneezing, congestion, runny nose or sore throat. SKIN: No rash or itching, lesions, wounds. CARDIOVASCULAR: + Edema. No chest pain, chest pressure or chest discomfort, palpitations, orthopnea, syncopal events. RESPIRATORY: No shortness of breath, cough or sputum, wheezing, hemoptysis. GASTROINTESTINAL: + anorexia, No nausea, vomiting or diarrhea, abdominal pain, melena, BRBPR. GENITOURINARY: No dysuria, frequency, urgency or retention. NEUROLOGICAL: + Confusion, weakness with fall. No headache, dizziness, syncope, paralysis, ataxia, numbness or tingling in the extremities, focal weakness, change in bowel or bladder control, seizure. MUSCULOSKELETAL: + muscle, back pain, joint pain or stiffness. HEMATOLOGIC: + anemia, bleeding or bruising. LYMPHATICS: No enlarged nodes. No history of splenectomy. PSYCHIATRIC: No history of depression or anxiety. ENDOCRINOLOGIC: No reports of sweating, cold or heat intolerance. No polyuria or polydipsia. ALLERGIES: No history of asthma, hives, eczema or rhinitis. Vital Signs Vital Signs Vital Signs: 02/22/22 20:03 02/22/22 22:01 Temperature 98.3 F Temperature Source Temporal Pulse Rate 104 H 103 H Respiratory Rate 18 20 H Blood Pressure 110/74 110/78 Blood Pressure Mean 86 88 Pulse Ox 98 92 Oxygen Delivery Method Room Air Room Air Weight Weight: 388 lb 7.272 oz Body Mass Index (BMI) 52.7 Physical Exam Narrative Physical Examination: General: Awake, alert, oriented to self, place, year, month and president, following commands, cooperative, laying in the ED bed, fatigued but not ill appearing. Skin: Normal color, normal turgor, no icterus, no cyanosis aside from psoriatic type skin changes. HEENT: AT/NC, EOMI, PERRLA, dry MM, no carotid bruits or JVD noted; however, thickened neck makes evaluation difficult. Lungs: Diminished bilaterally, distant breath sounds, appropriate effort, no rales, ronchi or wheezing. Heart: Currently regular rate and rhythm; no gallop, rub audible. Abdomen: Soft, morbidly obese, NTTP, ND, distant mildly hyperactive BS, unable to discern HSM secondary to habitus. Extremities: No cyanosis, no clubbing, bilateral lower extremity swelling how ever nonpitting, left lower extremity significantly increased compared to right, discomfort to palpation of the left knee however this is not significantly warm or red. Neurological: Patient awake, alert, oriented as noted, cognitive function despite recent encephalopathy concerns appears completely intact, answering all questions appropriately; pupils equally reactive to light and accommodation, cranial nerves II-XII grossly normal, moving all 4 extremities however limited given lower extremity pain and increased swelling, no focal deficits, strength moderately to severely global decreased Psychiatric: Affect appears fatigued otherwise normal, no acute evidence of depressive or anxiety feelings. Results Lab / Micro Data Result Diagrams: 02/22/22 21:18 02/22/22 21:18 Labs: Laboratory Results - last 24 hr 02/22/22 21:18: WBC 18.6 H, RBC 4.05 L, Hgb 11.7 L, Hct 36.1 L, MCV 89.1, MCH 28.9, MCHC 32.4, RDW Std Deviation 39.6, RDW Coeff of Jak 12.1, Plt Count 417, MPV 9.2, Immature Gran % (Auto) 1.300 H, Neut % (Auto) 84.3 H, Lymph % (Auto) 7 .9 L, [place] % (Auto) 5.9, Eos % (Auto) 0.2, Baso % (Auto) 0.4, Absolute Neuts (auto) 15.7 H, Absolute Lymphs (auto) 1.47, Nucleated RBC % 0 02/22/22 21:18: Sodium 134 L, Potassium 5.0, Chloride 103, Carbon Dioxide 24.0, Anion Gap 7, BUN 46 H, Creatinine 2.26 H, Estim Creat Clear Calc 34.81, Est GFR (MDRD) Af Amer 37 L, Est GFR (MDRD) Non-Af 31 L, BUN/Creatinine Ratio 20.4 H, Glucose 201 H, Calcium 10.0, Total Bilirubin 0.60, AST 35, ALT 66 H, Alkaline Phosphatase 149 H, Total Protein 7.8, Albumin 2.5 L, Globulin 5.3 H, Albumin/Globulin Ratio 0.5 L Rhythm Strip Rhythm Strip: Sinus Tach Rate: 103 Ectopy: None Radiology Impression Chest X-Ray 02/22/22 21:05 IMPRESSION: Normal x-ray examination of the chest. Electronically Signed: Eli De La Vega MD at 22:38 EDT Reading Location ID and State: [place] Orozco MD Tel , Service support , Femur X-Ray 02/22/22 21:06 IMPRESSION: Joint effusion. No evidence of fracture. Electronically Signed: Eli De La Vega MD at 22:50 EDT Reading Location ID and State: [place] Orozco MD Tel , Service support , Tibia/Fibula X-Ray 02/22/22 21:06 IMPRESSION: No acute findings. Electronically Signed: Eli De La Vega MD at 22:37 EDT Reading Location ID and State: [place] Orozco MD Tel , Service support , Brain CT 02/22/22 21:32 IMPRESSION: No acute findings. Mild microvascular ischemic changes. Atrophy. Electronically Signed: Eli De La Vega MD at 22:11 EDT Reading Location ID and State: [id number] / Tel , Service support , Assessment & Plan Assessment/Plan (1) Lower extremity edema: PLAN: Plan The patient is a 66 y/o M w/ PMHx: Chronic anemia, CKD stage III unclear subtype, Morbid Obesity, HTN, HLD, GRETCHEN on CPAP, Diabetes mellitus type II, BPH, Hx severe PE requiring thrombectomy and pericardial window/drainage on Xarelto, Former tobacco use, Chronic lymphedema who presents to the [facility] ED on 02/22/22 with history of decline since February 14 when patient had onset of left lower extremity pain with evaluation at [facility] with duplex ultrasound which demonstrated no DVT with placement of antibiotics for 1 week for concern of cellulitis with no improvement of symptoms despite this intervention with return to [facility] on day of presentation with plain films performed with unclear results with patient ongoing fatigue, malaise and weakness with fall without any injury secondary to his weakness with no fevers however reported chills and occasional intermittent confusion. #1. BL LE Edema/Chronic Lymphedema with Acutely Increased Edema, L>R with history of prior DVT and LLE Pain: Recent outpatient evaluation with negative DVT US, treated x 1 with abx therapy, no improvement, more pain and edema, will admit to [facility], maintain on fall precautions, given IMER unable to obtain CT with contrast as certainly could be intra-abdominal findings which could cause his worsening edema, will obtain CT A/P without contrast given his current presentation although may need to further assess once renal function improves, place snug CARMEN wraps with BL LE elevation, maintain on fall precautions, PT/OT/CM consultations. #2. Family reported Intermittent Acute Encephalopathy, Unclear etiology: Possibly secondary to acute presentation #1 with unclear underlying etiology, dehydration, will continue treatment as noted and monitor mental status, may consider further imaging if not improving. #3. Leukocytosis, Unclear etiology, possibly reaction, dehydration: Will continue to hydrate, no obvious infectious source upon initial presentation, CXR not marked, urine per ED normal appearing but UA pending, BL LE with no obvious evidence of erythema/cellulitis, plan repeat CBC in AM, procalcitonin requested. Patient does report concurrent left knee pain however he recently fell on it and notes its ongoing since but if continued leukocytosis, pain and obvious source may need to further assess the left knee. #4. Acute renal insufficiency on CKD stage III unclear subtype: Secondary to decreased intake, nephrotoxic medications. Admission BUN/Cr 46/2.26, prior baseline creatinine noted to be primarily 1.5-1.7 with most recent 04/06/2020 1.76. Will hydrate, hold nephrotoxic medications and repeat chemistry in AM. If no improvement would plan FeNa and renal US assessment. #5. Diabetes mellitus type II with neuropathy: Hold oral home regimen, continue home insulin regimen, ADA diet, accu checks w/ ISS, continue gabapentin but may need to alter dosing or hold if renal function worsens further. #6. History of VTE, Severe PE: Required thrombectomy and pericardial window/drainage, continue home xarelto regimen. #7. Hypertension: We will continue patient home Norvasc, metoprolol, holding La six/ACEI given renal function, resume once appropriate, as needed IV hydralazine. #8. Hyperlipidemia: We will continue patient home statin therapy. #9. Chronic normocytic anemia: Admission hemoglobin 11.7, baseline primarily 1112, stable, trend. #10. Morbid Obesity: Weight loss and lifestyle changes encouraged. #11. Former tobacco use: Encourage continued tobacco cessation. #12. GRETCHEN: BIPAP nightly. #13. DVT prophylaxis: SCDs, continue home Xarelto regimen. #14. CODE status: Patient is unsure if a formal healthcare power of communication arts lecturer or living will set up. He notes that his would primarily know this information. Discussed CODE status at length including difference between FULL code, DNR-CCA and DNR-CC status. Following discussions about the differences in these status, requested Full Code status. Advanced Care Planning Face to Face Time: 16 minutes. Charges/Coding Visit Charges OBSV E&M: 48032 Initial observation care L3 Procedures Hospitalists Procedures: 74355 Advncd Care Plan 30 Min
[2022-02-22 23:33] LABS: Mucous, Urine 0 SEEN /hpf (<or=2+); Red Blood Cells-Urine 0 SEEN /hpf (0-5); Squamous Epithelial Cells - UA 0 SEEN /hpf (0-5)
[2022-02-22 23:35] LABS: Glucose, Dipstick Normal (Normal); Ketone-Dipstick Negative (Negative); Leukocyte Esterase-Dipstick 25 /ul (Negative); Nitrite-Dipstick Negative (Negative); Occult Blood-Urine Negative /ul (Negative); Protein-Dipstick 15 mg/dl (Negative); Urine Bilirubin Dipstick Negative (Negative); Urine Urobilinogen Normal (Normal)
[2022-02-22 23:48] VITALS: BP 128/65; PULSE 99; RESP 29; TEMP 37.1; O2SAT 92
[2022-02-22 23:52] LABS: Color, Urine Yellow (Yellow); Urine Clarity Clear (Clear)
[2022-02-23 00:07] LABS: Bacteria RARE /hpf (None Seen); Hyaline Cast 0-5 SEEN /lpf (0-5); White Blood Cells 0-5 SEEN /hpf (0-5)
[2022-02-23 00:11] LABS: BNP,B-Type NATRIURETIC PEPTIDE 38.2 pg/mL (0-100)
--- NOTE | 2022-02-23 00:12 | CT_ITS ---
STUDY: CT ABDOMEN AND PELVIS WITHOUT CONTRAST REASON FOR EXAM: Male, 66 years old patient with bilateral lower extremity edema, left greater than right. Concern for intra-abdominal process. RADIATION DOSAGE (If Supplied By Facility): CTDIvol = ( 33.004 ) mGy, DLP = ( 1840.88 ) mGycm TECHNIQUE: Transaxial images were obtained from the dome of the diaphragm to the symphysis pubis without oral contrast, and without intravenous contrast. Sagittal and coronal images were reconstructed. Individualized dose optimization techniques were used for this CT. COMPARISON: None. FINDINGS: The visualized lung bases are unremarkable. The visualized portions of the heart are within normal limits. There are coronary artery calcifications. There is hepatomegaly with diffuse hepatic enlargement. The liver measures approximately 20.7 cm in greatest dimension. Normal gallbladder and extrahepatic biliary system. Normal spleen. Normal pancreas. Normal bilateral adrenal glands. There is a nonobstructing right-sided renal calculus measuring about 3 mm in size. There is bilateral perinephric fluid and stranding. There is no obvious hydronephrosis, hydroureter or radiopaque ureteral calculus. Normal visualized stomach. There is no obvious dilated bowel, ascites or pneumoperitoneum. The small bowel has a grossly normal appearance. There is stool visible throughout the colon with scattered diverticula. There is non-visualization of the appendix. There is mild atherosclerotic calcification of the abdominal aorta, without a demonstrated aneurysm. There is an IVC filter in place. Normal retroperitoneum. The urinary bladder is nondistended. A Guido catheter is present in the urinary bladder. Normal visualized prostate gland. Normal abdominal wall. The patient has had discectomies at L4-5 and L5-S1. There is surgical fusion of L4, L5 and S1 vertebral segments with interpedicular screws and rods. The bones appear osteopenic. There are multilevel degenerative changes of the thoracic spine with what appears to be diffuse idiopathic sclerosing hyperostosis. The bony pelvis has a grossly normal appearance. Sacroiliac joints and hip joints are within normal limits. CT/Abdomen/Pelvis without Cont IMPRESSION: No CT evidence of acute intra-abdominal disease. Electronically Signed: Katalina Tinajero MD at 2:33 EDT ,
[2022-02-23 00:46] VITALS: BP 125/57; PULSE 104; RESP 18; TEMP 36.9; O2SAT 98
[2022-02-23 00:47] VITALS: BMI 50.8
[2022-02-23] MEDS: 0.9% Normal Saline 1,000 ML 125 ML IV (01:30)
[2022-02-23] MEDS: HYDROcodone Bitartrate/Apap 5/325 Tablet PO ×3 (01:49→21:47)
[2022-02-23 02:05] LABS: Absolute Lymphocyte Count 2.41 X10^3/uL (0.83-4.51); Absolute Neutrophil Count 13.3 X10^3/uL (2.0-7.7); Basophil# 0.09 X10^3/uL; Basophil% 0.5 % (0-1); Eosinophil# 0.04 X10^3/uL; Eosinophils% 0.2 % (0-5); Hematocrit 34.2 % (40-54); Hemoglobin 11.2 g/dL (13.0-16.5); Lymphocyte # 2.41 X10^3/ul (0.83-4.51); Lymphocyte % 14.1 % (19-41); Mean Corp Hgb Conc 32.7 g/dL (32-36); Mean Corpuscular Hgb 28.9 pg (27.0-32.0); Mean Corpuscular Volume 88.4 fL (80-94); Mean Platelet Vol. 9.3 fl (6.2-12.0); Monocyte# 1.09 X10^3/uL; Monocyte% 6.4 % (0-10); NRBC Flagged by Analyzer 0 % (0-5); Neutrophil # 13.34 X10^3/uL (2.7-7.7); Neutrophil % 77.9 % (47-70); Platelet Count 446 K/mm3 (150-450); RBC Distribution Width SD 38.8 fl (35.1-43.9); Red Blood Count 3.87 M/mm3 (4.6-6.2); White Blood Count 17.1 K/mm3 (4.4-11.0)
[2022-02-23 02:29] LABS: ALB/GLOB Ratio 0.5 RATIO (0.9-2.4); AST(SGOT) 33 U/L (15-37); Alanine Aminotransfer ALT/SGPT 62 U/L (16-61); Albumin, Serum 2.5 g/dL (3.2-5.0); Alkaline Phosphatase 145 U/L (45-117); Anion Gap 8 (5-15); BUN 44 mg/dL (7-18); BUN/Creat Ratio 22.1 RATIO (10-20); Calcium,Total 9.8 mg/dL (8.5-10.1); Chloride 104 mmol/L (98-107); Creatinine, Serum 1.99 mg/dL (0.70-1.30); EST Glomerular Filtration Rate 36 mL/min (>60); Est Glom Filt Rate - Afr Amer 43 mL/min (>60); Estimated Creatinine Clearance 39.54 ml/min; Globulin 5.3 g/dL (2.2-4.2); Glucose 164 mg/dL (74-106); Potassium 4.8 mmol/L (3.5-5.1); Protein, Total 7.8 g/dL (6.4-8.2); Sodium Level 136 mmol/L (136-145)
[2022-02-23 02:42] LABS: Procalcitonin 0.67 ng/mL (0.00-0.09)
[2022-02-23 05:55] VITALS: BP 146/65; PULSE 83; RESP 18; TEMP 36.4; O2SAT 96
--- NOTE | 2022-02-23 07:31 | PN.HOSP_ITS ---
Subjective Subjective Patient is a 66-year-old gentleman with multiple comorbidities admitted with progressive generalized weakness with falls and bilateral lower extremity edema Objective Data Objective Data Vital Signs: Vital Signs Temp Pulse Resp BP Pulse Ox O2 Del Method O2 Flow Rate 97.6 F L 83 18 146/65 H 96 Bi-pap 2 02/23/22 05:55 02/23/22 05:55 02/23/22 05:55 02/23/22 05:55 02/23/22 05:55 02/23/22 06:52 02/23/22 06:52 Oxygen Flow Rate (L/min) 2 Oxygen Delivery Method Bi-pap Weight: 170.2 kg Body Mass Index (BMI) 50.8 Intake & Output: Intake and Output for Last 24 Hours 02/21/22 02/22/22 02/23/22 23:59 23:59 23:59 Intake Total 50 / 50 Output Total 950 / 950 Balance -900 / -900 Lab / Micro Data Result Diagrams: 02/23/22 01:40 02/23/22 01:40 Labs: Laboratory Results - last 24 hr 02/22/22 21:18: WBC 18.6 H, RBC 4.05 L, Hgb 11.7 L, Hct 36.1 L, MCV 89.1, MCH 28.9, MCHC 32.4, RDW Std Deviation 39.6, RDW Coeff of Jak 12.1, Plt Count 417, MPV 9.2, Immature Gran % (Auto) 1.300 H, Neut % (Auto) 84.3 H, Lymph % (Auto) 7.9 L, [place] % (Auto) 5.9, Eos % (Auto) 0.2, Baso % (Auto) 0.4, Absolute Neuts (auto) 15.7 H, Absolute Lymphs (auto) 1.47, Nucleated RBC % 0 02/22/22 21:18: Sodium 134 L, Potassium 5.0, Chloride 103, Carbon Dioxide 24.0, Anion Gap 7, BUN 46 H, Creatinine 2.26 H, Estim Creat Clear Calc 34.81, Est GFR (MDRD) Af Amer 37 L, Est GFR (MDRD) Non-Af 31 L, BUN/Creatinine Ratio 20.4 H, Glucose 201 H, Calcium 10.0, Total Bilirubin 0.60, AST 35, ALT 66 H, Alkaline Phosphatase 149 H, Total Protein 7.8, Albumin 2.5 L, Globulin 5.3 H, Albumin/Globulin Ratio 0.5 L 02/22/22 21:18: B-Natriuretic Peptide 38.2 02/22/22 23:30: Urine Color Yellow, Urine Clarity Clear, Urine pH 6.0, Ur Specific [place] 1.020, Urine Protein 15 H, Urine Glucose (UA) Normal, Urine Ketones Negative, Urine Occult Blood Negative, Urine Nitrite Negative, Urine Bilirubin Negative, Urine Urobilinogen Normal, Ur Leukocyte Esterase 25 H, Urine RBC 0 SEEN, Urine WBC 0-5 SEEN, Ur Squamous Epith Cells 0 SEEN, Urine Bacteria RARE, Hyaline Casts 0-5 SEEN, Urine Mucus 0 SEEN 02/23/22 01:40: Procalcitonin 0.67 H 02/23/22 01:40: WBC 17.1 H, RBC 3.87 L, Hgb 11.2 L, Hct 34.2 L, MCV 88.4, MCH 28.9, MCHC 32.7, RDW Std Deviation 38.8, RDW Coeff of Jak 12.0, Plt Count 446, MPV 9.3, Immature Gran % (Auto) 0.900, Neut % (Auto) 77.9 H, Lymph % (Auto) 14.1 L, [place] % (Auto) 6.4, Eos % (Auto) 0.2, Baso % (Auto) 0.5, Absolute Neuts (auto) 13.3 H, Absolute Lymphs (auto) 2.41, Nucleated RBC % 0 02/23/22 01:40: Sodium 136, Potassium 4.8, Chloride 104, Carbon Dioxide 24.0, Anion Gap 8, BUN 44 H, Creatinine 1.99 H, Estim Creat Clear Calc 39.54, Est GFR (MDRD) Af Amer 43 L, Est GFR (MDRD) Non-Af 36 L, BUN/Creatinine Ratio 22.1 H, Glucose 164 H, Calcium 9.8, Total Bilirubin 0.60, AST 33, ALT 62 H, Alkaline Phosphatase 145 H, Total Protein 7.8, Albumin 2.5 L, Globulin 5.3 H, Albumin/Globulin Ratio 0.5 L Radiography Diagnostic Testing: Radiology Impression Chest X-Ray 02/22/22 21:05 IMPRESSION: Normal x-ray examination of the chest. Electronically Signed: Eli De La Vega MD at 22:38 EDT Reading Location ID and State: [id number] / Tel , Service support , Femur X-Ray 02/22/22 21:06 IMPRESSION: Joint effusion. No evidence of fracture. Electronically Signed: Eli De La Vega MD at 22:50 EDT Reading Location ID and State: [place] / Tel , Service support , Tibia/Fibula X-Ray 02/22/22 21:06 IMPRESSION: No acute findings. Electronically Signed: Eli De La Vega MD at 22:37 EDT Reading Location ID and State: [place] / Tel , Service support , Brain CT 02/22/22 21:32 IMPRESSION: No acute findings. Mild microvascular ischemic changes. Atrophy. Electronically Signed: Eli De La Vega MD at 22:11 EDT Reading Location ID and State: [id number] / Tel , Service support , Abdomen/Pelvis CT 02/23/22 00:12 IMPRESSION: No CT evidence of acute intra-abdominal disease. Electronically Signed: Katalina Tinajero MD at 2:33 EDT , Rhythm Strip Rhythm Strip: Sinus Tach Rate: 103 Ectopy: None Physical Exam Narrative GENERAL: cooperative HEENT: Atraumatic; EYES; Anicteric, Normal Conjunctiva NECK; supple, normal thyroid, RESPIRATORY: Diminished to auscultation CARDIOVASCULAR: Regular S1 S2, GI: soft, normoactive bowel sounds, : No Renal angle tenderness; EXTREMITIES: Bilateral lower extremity lymphedema MUSCULOSKELETAL: no muscle wasting NEURO: Awake; no lateralizing signs. SKIN: No Rash PSYCH; Flat affect Assessment & Plan Assessment/Plan (1) Lower extremity edema: PLAN: Plan Patient is a 66-year-old gentleman with multiple comorbidities admitted with progressive generalized weakness with falls and bilateral lower extremity edema 1. Physical deconditioning - Requested for PT OT eval and social services assistant to assist with discharge planning 2. Bilateral lower extremity edema ? Related to lymphedema. Recent outpatient evaluation with lower extremity duplex was negative for ultrasound CT of the abdomen obtained came back unremarkable. Consult placed wound care nurse. Also ordered a 2D echo for EF assessment 3. Previous history of pulmonary embolism ? Requiring thrombectomy. Patient is on Xarelto 4. Class III obesity with BMI of 50.9 ? Weight loss advised 5. Dyslipidemia -Patient is on statin therapy, continued at home dose 4. Diabetes mellitus type II -patient's oral hypoglycemics held. Placed on long acting insulin, Accu-Cheks a.c. and at bedtime and covered with sliding scale insulin 7. Diabetic polyneuropathy ? Patient is on gabapentin 8. Essential hypertension ? Patient is on amlodipine which may be contributing to his lower extremity edema this has been discontinued 9. CKD stage IIIa ? Secondary to diabetic nephropathy kidney function at baseline 10. Obstructive sleep apnea ? Patient is on CPAP at night 11. DVT prophylaxis ? On Xareltod tobacco cessation. Charges/Coding Visit Charges Inpatient E&M: 65782 [facility] Hosp L3
[2022-02-23 08:05] LABS: Bedside Glucose 124 mg/dL (74-106)
--- NOTE | 2022-02-23 08:21 | ECHOCS_ITS ---
Reason For Study: CHF Procedure This was a 2D Doppler, Color Flow transthoracic echocardiogram. The study was technically difficult. Limited views were obtained. Contrast injection was performed. Exam performed portable in patient room. Left Ventricle Normal LV size. The estimated ejection fraction is 65 %. Normal diastology for age. No regional wall motion abnormalities noted. Right Ventricle Normal RV size. Normal systolic function. Atria Normal left atrium. Normal right atrium. No doppler evidence for ASD. Mitral Valve Mitral valve not well visualized. There is no mitral valve stenosis. No mitral valve insufficiency. Tricuspid Valve There is no tricuspid stenosis. Unable to estimate RV systolic pressure due to inadequate jet, pulmonary artery pressure probably normal. Aortic Valve The aortic valve is not well visualized. There is no aortic stenosis. No aortic valve insufficiency. Pulmonic Valve There is no pulmonic valvular stenosis. No pulmonic valve insufficiency. Great Vessels Normal aortic root. Pericardium/Pleural No pericardial effusion. Medication Diluted definity 3ml given slow IV push to enhance endocardial definition. Time Measurements MV dec time: 0.26 sec Doppler Measurements & Calculations MV E max marcello: 144.4 cm/sec Med Peak E' Marcello: 12.7 cm/sec MV A max marcello: 63.2 cm/sec E/E' med: 11.4 MV dec slope: 569.2 cm/sec2 MV E/A: 2.3 Ao V2 max: 118.2 cm/sec LV V1 max: 95.3 cm/sec PA V2 max: 135.1 cm/sec Ao max P.6 mmHg LV V1 max P.6 mmHg PA V2 mean: 93.1 cm/sec ECHO/Echo Complete W/ Contrast Interpretation Summary The estimated ejection fraction is 65 %. Normal diastology for age. Ordering Physician: Pasquale Clifford Referring Physician: David Kate M.D. Performed By: Brianna Waters RCS
[2022-02-23] MEDS: Insulin Lispro 100 UNIT/ML INSULN.PEN 20 UNIT SC ×2 (08:41→12:40)
[2022-02-23] MEDS: Gabapentin 600 MG Tablet PO ×3 (08:42→17:25)
[2022-02-23] MEDS: Aspirin 81 MG TAB.CHEW PO (08:43)
[2022-02-23 11:25] VITALS: PULSE 68
[2022-02-23] MEDS: Metoprolol Tartrate 25 MG Tablet 75 MG PO ×2 (11:25→21:48)
[2022-02-23] MEDS: amLODIPine 10 MG Tablet PO (11:26)
[2022-02-23 11:50] LABS: Bedside Glucose 137 mg/dL (74-106)
--- NOTE | 2022-02-23 15:28 | CASEMGMT ---
ALLY LAUGHLIN in to discuss HERNANDEZ form with patient. ALLY LAUGHLIN explained HERNANDEZ form, patient voiced understanding. Pt signed form and filed in chart. Pt provided with a copy of signed HERNANDEZ form. Patient also states he has a CPAP with 2L oxygen bled in. Pt states his oxygen concentrator came from [employer] some time ago. He states he owns it and has no other company at this time. Pt denies any concerns at home and denies need for any services at home. Patient had no further questions or concerns at this time.
[2022-02-23 16:17] VITALS: BP 119/57; PULSE 72; RESP 16; TEMP 36.8; O2SAT 92
[2022-02-23 16:25] LABS: Bedside Glucose 132 mg/dL (74-106)
[2022-02-23] MEDS: Insulin Lispro 100 UNIT/ML INSULN.PEN 25 UNIT SC (17:29)
[2022-02-23 21:32] VITALS: BP 145/71; PULSE 84; RESP 16; TEMP 36.8; O2SAT 93
[2022-02-23] MEDS: Doxazosin 4 MG Tablet PO (21:47)
[2022-02-23] MEDS: Atorvastatin Calcium 20 MG Tablet PO (21:47)
[2022-02-23] MEDS: Rivaroxaban 20 MG Tablet PO (21:47)
[2022-02-23 21:48] VITALS: BP 145/71; PULSE 84
[2022-02-23 22:15] LABS: Bedside Glucose 88 mg/dL (74-106)
[2022-02-24 03:41] VITALS: BP 139/72; PULSE 76; RESP 16; TEMP 36.9; O2SAT 97
--- NOTE | 2022-02-24 07:41 | PCM.PN.HOSP ---
Subjective Subjective 2D echo obtained today prior demonstrated ejection fraction of 65%. RVSP could not be assessed due to inadequate jet per echo report Objective Data Objective Data Vital Signs: Vital Signs Temp Pulse Resp BP Pulse Ox O2 Del Method O2 Flow Rate 98.5 F 76 16 139/72 H 97 Bi-pap 3 02/24/22 03:41 02/24/22 03:41 02/24/22 03:41 02/24/22 03:41 02/24/22 03:41 02/24/22 03:41 02/24/22 03:41 Oxygen Flow Rate (L/min) 3 Oxygen Delivery Method Bi-pap Weight: 170.2 kg Body Mass Index (BMI) 50.8 Intake & Output: Intake and Output for Last 24 Hours 02/22/22 02/23/22 02/24/22 23:59 23:59 23:59 Intake Total 1050 / 1550 700 / 700 Output Total 1950 / 2750 1350 / 1350 Balance -900 / -1200 -650 / -650 Lab / Micro Data Result Diagrams: 02/23/22 01:40 02/23/22 01:40 Labs: Laboratory Results - last 24 hr 02/23/22 07:38: POC Glucose 124 H 02/23/22 11:32: POC Glucose 137 H 02/23/22 16:01: POC Glucose 132 H 02/23/22 21:37: POC Glucose 88 Radiography Diagnostic Testing: Radiology Impression Echocardiogram 02/23/22 08:21 Interpretation Summary The estimated ejection fraction is 65 %. Normal diastology for age. Ordering Physician: Pasquale Clifford Referring Physician: David Kate M.D. Performed By: Brianna Waters RCS Rhythm Strip Rhythm Strip: Sinus Tach Rate: 103 Ectopy: None Physical Exam Narrative GENERAL: cooperative HEENT: Atraumatic; EYES; Anicteric, Normal Conjunctiva NECK; supple, normal thyroid, RESPIRATORY: Diminished to auscultation CARDIOVASCULAR: Regular S1 S2, GI: soft, normoactive bowel sounds, : No Renal angle tenderness; EXTREMITIES: Bilateral lower extremity lymphedema MUSCULOSKELETAL: no muscle wasting NEURO: Awake; no lateralizing signs. SKIN: No Rash PSYCH; Flat affect Assessment & Plan Assessment/Plan (1) Lower extremity edema: PLAN: Plan Patient is a 66-year-old gentleman with multiple comorbidities admitted with progressive generalized weakness with falls and bilateral lower extremity edema 1. Physical deconditioning - Requested for PT OT eval and social worker clinical to assist with discharge planning -02/24/2022 awaiting PT eval prior to making a decision regarding disposition 2. Bilateral lower extremity edema ? Related to lymphedema. Recent outpatient evaluation with lower extremity duplex was negative for ultrasound CT of the abdomen obtained came back unremarkable. Consult placed wound care nurse. Also ordered a 2D echo for EF assessment -02/24/2022: 2D echo obtained today prior demonstrated ejection fraction of 65%. RVSP could not be assessed due to inadequate jet per echo report 3. Previous history of pulmonary embolism ? Requiring thrombectomy. Patient is on Xarelto 4. Class III obesity with BMI of 50.9 ? Weight loss advised 5. Dyslipidemia -Patient is on statin therapy, continued at home dose 4. Diabetes mellitus type II -patient's oral hypoglycemics held. Placed on long acting insulin, Accu-Cheks a.c. and at bedtime and covered with sliding scale insulin 7. Diabetic polyneuropathy ? Patient is on gabapentin 8. Essential hypertension ? Patient is on amlodipine which may be contributing to his lower extremity edema this has been discontinued 9. CKD stage IIIa ? Secondary to diabetic nephropathy kidney function at baseline 10. Obstructive sleep apnea ? Patient is on CPAP at night 11. DVT prophylaxis ? On Xareltod tobacco cessation. Charges/Coding Visit Charges Inpatient E&M: 48572 Subs Hosp L2
[2022-02-24 08:16] LABS: Bedside Glucose 128 mg/dL (74-106)
[2022-02-24] MEDS: HYDROcodone Bitartrate/Apap 5/325 Tablet PO (08:22)
[2022-02-24] MEDS: Insulin Lispro 100 UNIT/ML INSULN.PEN 20 UNIT SC ×2 (08:22→12:22)
[2022-02-24] MEDS: Aspirin 81 MG TAB.CHEW PO (08:23)
[2022-02-24] MEDS: Gabapentin 600 MG Tablet PO ×2 (08:27→12:21)
[2022-02-24 08:30] VITALS: BP 126/68; PULSE 80; RESP 16; TEMP 36.7; O2SAT 98
--- NOTE | 2022-02-24 09:33 | CASEMGMT ---
Addendum entered by Karen Muse 02/24/22 11:40: ALLY LAUGHLIN in to pt room, he states he has spoke with his and has chosen [facility]. He states it is ok to speak with . TC to pt , she is agreeable to the plan and thanks ALLY LAUGHLIN. She is asking to speak to the physician or nurse. Made her aware, once she arrives she can speak to the nurse regarding medical care. She verbalizes understanding and denies further questions. Addendum entered by Karen Muse 02/24/22 10:14: Spoke with therapy who is recommending skilled care prior to returning home. ALLY LAUGHLIN in to pt room to discuss with patient. Patient was provided a list of SNF providers including quality and resource use data and consistent with the patient?s preferred geographic region, medical needs, and insurance network. Patient states he would like to call and speak with his before making a decision. ALLY LAUGHLIN to check back with him. Pt requests he speak with prior to RN CM calling her. He is aware that she called in today and spoke with ALLY LAUGHLIN. Pt denies further needs at this time. Original Note: ALLY LAUGHLIN notified that pt called in and requests returned call regarding dc plan. TC to pt , she is very upset with pt progression in the hospital. She states something is wrong with the patient that he cannot walk and he is being told everything is fine. She states pt cannot walk and this is not normal for him. States pt has not been up in 2 days while in the hospital. She states pt is being sent home and she cannot care for him. Made her aware this RN CM spoke with pt yesterday who declined any needs at home but therapy has not worked with patient and this is to be re evaluated once the eval completed. Made her aware pt may be dc'd today but the disposition is not yet determined. Pt states she is not in the best of health either to care for him and she feels he needs therapy s/t in a facility prior to returning home. She states her goal for him is to go to therapy at the hospital inpatient. She states pt is a fall risk and is sitting on the eob. Assured her this RN TRUMAN would check on patient. became tearful on the phone. She is aware after therapy evals RN CM will call her back and discuss. Noted after phone call pt is lying in bed in no distress. TC to therapy who states they will see pt today. Updated therapy on concerns. Updated SW as well.
[2022-02-24 11:27] VITALS: PULSE 80
[2022-02-24] MEDS: amLODIPine 10 MG Tablet PO (11:27)
[2022-02-24] MEDS: Metoprolol Tartrate 25 MG Tablet 75 MG PO (11:27)
--- NOTE | 2022-02-24 11:31 | DS.PCM_ITS ---
Providers Date of Admission: 02/22/22 Primary Care Physician: Dr. David Kate MD Reason For Visit: LE EDEMA, CONFUSION, RENAL INSUFFICIENCY Diagnosis Discharge Diagnosis (1) Lower extremity edema: Status: Acute Code(s): R60.0 - Localized edema Plan Patient is a 66-year-old gentleman with multiple comorbidities admitted with progressive generalized weakness with falls and bilateral lower extremity edema 1. Physical deconditioning - Requested for PT OT eval and social security benefits interviewer to assist with discharge planning -02/24/2022 awaiting PT eval prior to making a decision regarding disposition 2. Bilateral lower extremity edema ? Related to lymphedema. Recent outpatient evaluation with lower extremity duplex was negative for ultrasound CT of the abdomen obtained came back unremarkable. Consult placed wound care nurse. Also ordered a 2D echo for EF assessment -02/24/2022: 2D echo obtained today prior demonstrated ejection fraction of 65%. RVSP could not be assessed due to inadequate jet per echo report 3. Previous history of pulmonary embolism ? Requiring thrombectomy. Patient is on Xarelto 4. Class III obesity with BMI of 50.9 ? Weight loss advised 5. Dyslipidemia -Patient is on statin therapy, continued at home dose 4. Diabetes mellitus type II -patient's oral hypoglycemics held. Placed on long acting insulin, Accu-Cheks a.c. and at bedtime and covered with sliding scale insulin 7. Diabetic polyneuropathy ? Patient is on gabapentin 8. Essential hypertension ? Patient is on amlodipine which may be contributing to his lower extremity edema this has been discontinued 9. CKD stage IIIa ? Secondary to diabetic nephropathy kidney function at baseline 10. Obstructive sleep apnea ? Patient is on CPAP at night 11. DVT prophylaxis ? On Xareltod tobacco cessation. Medications at Discharge Home Medications tizanidine 4 mg tablet (Zanaflex) 4 mg PO Q8H PRN Pain 12/15/13 atorvastatin 20 mg tablet 20 mg PO QHS cholesterol 08/27/15 furosemide 40 mg tablet 80 mg PO DAILY diuretic 08/27/15 insulin glargine 100 unit/mL (3 mL) subcutaneous pen (Lantus Solostar U-100 Insulin) 65 units subcut QHS diabetes 08/27/15 multivitamin with folic acid 400 mcg tablet (Thera) 1 tab PO DAILY supplement 10/18/15 potassium chloride 10 mEq tablet,extended release (Klor-Con) 40 meq PO DAILY supplement 10/18/15 metoprolol tartrate 25 mg tablet 75 mg PO BID blood pressure 03/23/16 rivaroxaban 20 mg tablet (Xarelto) 20 mg PO DINNER blood thinner 03/23/16 gabapentin 600 mg tablet 600 mg PO TIDCM ##90 03/29/16 aspirin 81 mg chewable tablet 81 mg PO DAILY heart health 04/03/20 doxazosin 4 mg tablet 4 mg PO QHS blood pressure 04/03/20 hydrocodone-acetaminophen 5-325mg 5mg-325mg 2 ea PO Q6H PRN PRN Pain Score 1- 05/2204/03/20 lisinopril 40 mg tablet 40 mg PO DAILY 04/06/20 albuterol sulfate 90 mcg/actuation aerosol inhaler 2 inh inhalation Q6H PRN PRN SOB 02/22/22 amlodipine 10 mg tablet 1 tab PO DAILY hypertension 02/22/22 dulaglutide 3 mg/0.5 mL subcutaneous pen injector (Trulicity) 3 mg subcut FR diabetes 02/22/22 zinc 50 mg tablet 50 mg PO DAILY supplement 02/22/22 insulin lispro 100 unit/mL subcutaneous pen 20 unit subcut BREAKFAST diabetes 02/23/22 insulin lispro 100 unit/mL subcutaneous pen 20 unit subcut LUNCH diabetes 02/23/22 insulin lispro 100 unit/mL subcutaneous pen 25 unit subcut DINNER diabetes 02/23/22 Hospital Course Summary of Care Provided Minutes Spent on Discharge: 35 Hospital Course: Patient is a 66-year-old gentleman with multiple comorbidities admitted with progressive generalized weakness with falls and bilateral lower extremity edema 1.? Physical deconditioning - Requested for PT OT eval and social security benefits interviewer to assist with discharge planning -02/24/2022 awaiting PT eval prior to making a decision regarding disposition ? Patient was discharged home with home health 2.? Bilateral lower extremity edema ? Related to lymphedema.? Recent outpatient evaluation with lower extremity duplex was negative for ultrasound CT of the abdomen obtained came back unrem armaria cble.? Consult placed wound care nurse.? Also ordered a 2D echo for EF assessment -02/24/2022: 2D echo obtained today prior demonstrated ejection fraction of 65%.? RVSP could not be assessed due to inadequate jet per echo report 3.? Previous history of pulmonary embolism ? Requiring thrombectomy.? Patient is on Xarelto 4.? Class III obesity with BMI of 50.9 ? Weight loss advised 5.? Dyslipidemia -Patient is on statin therapy, continued at home dose 4.? Diabetes mellitus type II -patient's oral hypoglycemics held. Placed on long acting insulin, Accu-Cheks a.c. and at bedtime and covered with sliding scale insulin 7.? Diabetic polyneuropathy ? Patient is on gabapentin 8.? Essential hypertension ? Patient is on amlodipine which may be contributing to his lower extremity edema this has been discontinued 9.? CKD stage IIIa ? Secondary to diabetic nephropathy kidney function at baseline 10.? Obstructive sleep apnea ? Patient is on CPAP at night 11.? DVT prophylaxis ? On Xarelto Physical Exam Narrative GENERAL: cooperative HEENT: Atraumatic; EYES; Anicteric, Normal Conjunctiva NECK; supple, normal thyroid, RESPIRATORY: Diminished to auscultation CARDIOVASCULAR: Regular S1 S2, GI: soft, normoactive bowel sounds, : No Renal angle tenderness; EXTREMITIES: Bilateral lower extremity lymphedema MUSCULOSKELETAL: no muscle wasting NEURO: Awake; no lateralizing signs. SKIN: No Rash PSYCH; Flat affect Weight / BMI Weight Weight: 170.2 kg Body Mass Index (BMI) 50.8 ABG / Lab / Microbiology Data Result Diagrams: 02/23/22 01:40 02/23/22 01:40 Laboratory: Laboratory Results - last 24 hr 02/23/22 11:32: POC Glucose 137 H 02/23/22 16:01: POC Glucose 132 H 02/23/22 21:37: POC Glucose 88 02/24/22 07:40: POC Glucose 128 H Radiography Diagnostic Testing: Radiology Impression Echocardiogram 02/23/22 08:21 Interpretation Summary The estimated ejection fraction is 65 %. Normal diastology for age. Ordering Physician: Pasquale Clifford Referring Physician: David Kate M.D. Performed By: Brianna Waters RCS D/C Instructions Discharge Diet: 1800 Calorie Control Diet, 8 Cup Fluid Restriction and 2000 mg Sodium Diet Discharge Activity: Return to Normal Activity Call your doctor if you observe: Fever of 101 or Higher, Shortness of breath, Fainting spells and Chest pain Meaningful Use Info Meaningful Use Diagnoses (Choose all that apply): CHF CHF CARMEN/ARB ordered at discharge?: No Reason CARMEN/ARB not ordered?: Normal EF Documented LVEF (%): 65 Discharge Plan Admission Admit Date/Time: 02/22/22 23:39 Attending Provider: Pasquale Clifford Primary Care Provider: David Kate Consulting Providers: Fatuma Cyr Discharge Orders/Prescriptions Prescriptions: Continued tizanidine [Zanaflex] 4 MG tablet 4 mg PO Q8H PRN (Reason: Pain) Label Comments: PAIN furosemide 40 MG tablet 80 mg PO DAILY Label Comments: diuretic atorvastatin 20 MG tablet 20 mg PO QHS Label Comments: reduce cholesterol insulin glargine [Lantus Solostar U-100 Insulin] 100 UNITS/ML insulin pen 65 units subcut QHS Label Comments: diabetes multivitamin with folic acid [Thera] 1 TABLET tablet 1 tab PO DAILY Label Comments: vitamin potassium chloride [Klor-Con 10] 10 MEQ tablet extended release 40 meq PO DAILY Label Comments: supplement metoprolol tartrate 25 MG tablet 75 mg PO BID Label Comments: reduce blood pressure Xarelto 20 MG tablet 20 mg PO DINNER Label Comments: BLOOD THINNER gabapentin 600 MG tablet 600 mg PO TIDCM Qty: 90 0RF hydrocodone-acetaminophen 1 EACH tablet 2 ea PO Q6H PRN PRN (Reason: Pain Score 1-10/10) doxazosin 4 MG tablet 4 mg PO QHS aspirin 81 MG tablet,chewable 81 mg PO DAILY lisinopril 40 MG tablet 40 mg PO DAILY 0RF amlodipine 10 mg tablet 1 tab PO DAILY albuterol sulfate 90 mcg/actuation HFA aerosol inhaler 2 inh INHALATION Q6H PRN PRN (Reason: SOB) Trulicity 3 mg/0.5 mL Pen Injector 3 mg SUBCUT FR zinc 50 mg Tablet 50 mg PO DAILY insulin lispro 100 unit/mL Insulin Pen 20 unit SUBCUT BREAKFAST insulin lispro 100 unit/mL Insulin Pen 20 unit SUBCUT LUNCH insulin lispro 100 unit/mL Insulin Pen 25 unit SUBCUT DINNER Referrals / Follow Up: David Kate MD [Primary Care Provider] - In 1 Week Disposition Disposition (needs filled in before D/C Order can be placed): Home Health Service Charges/Coding Visit Charges OBSV E&M: 20790 Observation care discharge
[2022-02-24 11:50] LABS: Bedside Glucose 141 mg/dL (74-106)
--- NOTE | 2022-02-24 12:41 | PCM.TXEXTCAR ---
Diet Diet Order/Speech Therapy: 02/23/22 00:12 Diet: Consistent Carb - Calorie Controlled Food consistency:: Regular Liquid Consistency:: Regular/Thin Dietary Modifications:: Sodium Restricted How many daily calories?: 1800 calorie Wound(s) right big toe: Wound Type: Neuropathic/Diabetic Foot Ulcer Therapies Physical Therapy: Eval and Treat Occupational Therapy: Eval and Treat Problem/Diagnosis (1) Lower extremity edema: Status: Acute Code(s): R60.0 - Localized edema Plan Patient is a 66-year-old gentleman with multiple comorbidities admitted with progressive generalized weakness with falls and bilateral lower extremity edema 1. Physical deconditioning - Requested for PT OT eval and social scientist to assist with discharge planning -02/24/2022 awaiting PT eval prior to making a decision regarding disposition -Was discharged to a long-term facility 2. Bilateral lower extremity edema ? Related to lymphedema. Recent outpatient evaluation with lower extremity duplex was negative for ultrasound CT of the abdomen obtained came back unremarkable. Consult placed wound care nurse. Also ordered a 2D echo for EF assessment -02/24/2022: 2D echo obtained today prior demonstrated ejection fraction of 65%. RVSP could not be assessed due to inadequate jet per echo report 3. Previous history of pulmonary embolism ? Requiring thrombectomy. Patient is on Xarelto 4. Class III obesity with BMI of 50.9 ? Weight loss advised 5. Dyslipidemia -Patient is on statin therapy, continued at home dose 4. Diabetes mellitus type II -patient's oral hypoglycemics held. Placed on long acting insulin, Accu-Cheks a.c. and at bedtime and covered with sliding scale insulin 7. Diabetic polyneuropathy ? Patient is on gabapentin 8. Essential hypertension ? Patient is on amlodipine which may be contributing to his lower extremity edema this has been discontinued 9. CKD stage IIIa ? Secondary to diabetic nephropathy kidney function at baseline 10. Obstructive sleep apnea ? Patient is on CPAP at night 11. DVT prophylaxis ? On Xareltod tobacco cessation. Allergies/Procedures Done in Hospital Allergies Penicillins Allergy (Unknown, Verified 02/22/22 20:03) Hives erythromycin base [Erythromycin Base] Adverse Reaction (Verified 02/22/22 20:03) Nausea Type of Care/Length of Stay Estimated LOS: Convalescent Care Less Than 30 days Type of Care Needed: Skilled Rehab Potential: Good Prognosis: Good Additional Orders/Day of Discharge Day of Discharge: 02/24/22 Discharge Plan Admission Admit Date/Time: 02/22/22 23:39 Attending Provider: Pasquale Clifford Primary Care Provider: David Kate Consulting Providers: Fatuma Cyr Discharge Orders/Prescriptions Prescriptions: New acetaminophen [Tylenol] 325 mg Tablet 650 mg PO Q4H PRN PRN (Reason: Fever, pain 1-05/22) Qty: 0 0RF insulin lispro [Humalog KwikPen Insulin] 100 unit/mL Insulin Pen See Protocol subcut ACHS Qty: 0 0RF Protocol: 3. Sliding Scale Insulin Med Dosing Condition: 150-189 mg/dl = 1 unit Condition: 190-229 mg/dl = 2 units Condition: 230-269 mg/dl = 3 units Condition: 270-309 mg/dl = 4 units Condition: 310-349 mg/dl = 5 units Condition: 350-399 mg/dl = 6 units Condition: 400-449 mg/dl = 7 units Condition: Greater than 449 call physician Protocol Text: - Use for Total Daily Dose of Insulin 37-55 units - Obsese, infected, or steroid patients MEDIUM DOSING ALGORITHIM melatonin 3 mg Tablet 3 mg PO QHS PRN PRN (Reason: Insomnia) Qty: 0 0RF Continued tizanidine [Zanaflex] 4 MG tablet 4 mg PO Q8H PRN (Reason: Pain) Label Comments: PAIN furosemide 40 MG tablet 80 mg PO DAILY Label Comments: diuretic atorvastatin 20 MG tablet 20 mg PO QHS Label Comments: reduce cholesterol insulin glargine [Lantus Solostar U-100 Insulin] 100 UNITS/ML insulin pen 65 units subcut QHS Label Comments: diabetes multivitamin with folic acid [Thera] 1 TABLET tablet 1 tab PO DAILY Label Comments: vitamin metoprolol tartrate 25 MG tablet 75 mg PO BID Label Comments: reduce blood pressure Xarelto 20 MG tablet 20 mg PO DINNER Label Comments: BLOOD THINNER gabapentin 600 MG tablet 600 mg PO TIDCM Qty: 90 0RF doxazosin 4 MG tablet 4 mg PO QHS aspirin 81 MG tablet,chewable 81 mg PO DAILY amlodipine 10 mg tablet 1 tab PO DAILY albuterol sulfate 90 mcg/actuation HFA aerosol inhaler 2 inh INHALATION Q6H PRN PRN (Reason: SOB) zinc 50 mg Tablet 50 mg PO DAILY insulin lispro 100 unit/mL Insulin Pen 20 unit SUBCUT BREAKFAST insulin lispro 100 unit/mL Insulin Pen 20 unit SUBCUT LUNCH insulin lispro 100 unit/mL Insulin Pen 25 unit SUBCUT DINNER Changed hydrocodone-acetaminophen 1 EACH tablet 2 tab PO Q6H PRN PRN (Reason: Pain Score 1-10/10) 1 Days Qty: 4 0RF Discontinued potassium chloride [Klor-Con 10] 10 MEQ tablet extended release 40 meq PO DAILY Label Comments: supplement lisinopril 40 MG tablet 40 mg PO DAILY 0RF Trulicity 3 mg/0.5 mL Pen Injector 3 mg SUBCUT FR Referrals / Follow Up: David Kate MD [Primary Care Provider] - In 1 Week Disposition Disposition (needs filled in before D/C Order can be placed): [facility] Facility
--- NOTE | 2022-02-24 13:05 | DS.PCM_ITS ---
Providers Date of Admission: 02/22/22 Primary Care Physician: Dr. David Kate MD Reason For Visit: LE EDEMA, CONFUSION, RENAL INSUFFICIENCY Diagnosis Discharge Diagnosis (1) Lower extremity edema: Status: Acute Code(s): R60.0 - Localized edema Plan Patient is a 66-year-old gentleman with multiple comorbidities admitted with progressive generalized weakness with falls and bilateral lower extremity edema 1. Physical deconditioning - Requested for PT OT eval and social worker delinquency prevention to assist with discharge planning -02/24/2022 awaiting PT eval prior to making a decision regarding disposition -[facility] a prison facility 2. Bilateral lower extremity edema ? Related to lymphedema. Recent outpatient evaluation with lower extremity duplex was negative for ultrasound CT of the abdomen obtained came back unremarkable. Consult placed wound care nurse. Also ordered a 2D echo for EF assessment -02/24/2022: 2D echo obtained today prior demonstrated ejection fraction of 65%. RVSP could not be assessed due to inadequate jet per echo report 3. Previous history of pulmonary embolism ? Requiring thrombectomy. Patient is on Xarelto 4. Class III obesity with BMI of 50.9 ? Weight loss advised 5. Dyslipidemia -Patient is on statin therapy, continued at home dose 4. Diabetes mellitus type II -patient's oral hypoglycemics held. Placed on long acting insulin, Accu-Cheks a.c. and at bedtime and covered with sliding scale insulin 7. Diabetic polyneuropathy ? Patient is on gabapentin 8. Essential hypertension ? Patient is on amlodipine which may be contributing to his lower extremity edema this has been discontinued 9. CKD stage IIIa ? Secondary to diabetic nephropathy kidney function at baseline 10. Obstructive sleep apnea ? Patient is on CPAP at night 11. DVT prophylaxis ? On Xareltod tobacco cessation. Medications at Discharge Home Medications tizanidine 4 mg tablet (Zanaflex) 4 mg PO Q8H PRN Pain 12/15/13 atorvastatin 20 mg tablet 20 mg PO QHS cholesterol 08/27/15 furosemide 40 mg tablet 80 mg PO DAILY diuretic 08/27/15 insulin glargine 100 unit/mL (3 mL) subcutaneous pen (Lantus Solostar U-100 Insulin) 65 units subcut QHS diabetes 08/27/15 multivitamin with folic acid 400 mcg tablet (Thera) 1 tab PO DAILY supplement 10/18/15 metoprolol tartrate 25 mg tablet 75 mg PO BID blood pressure 03/23/16 rivaroxaban 20 mg tablet (Xarelto) 20 mg PO DINNER blood thinner 03/23/16 gabapentin 600 mg tablet 600 mg PO TIDCM ##90 03/29/16 aspirin 81 mg chewable tablet 81 mg PO DAILY heart health 04/03/20 doxazosin 4 mg tablet 4 mg PO QHS blood pressure 04/03/20 albuterol sulfate 90 mcg/actuation aerosol inhaler 2 inh inhalation Q6H PRN PRN SOB 02/22/22 amlodipine 10 mg tablet 1 tab PO DAILY hypertension 02/22/22 zinc 50 mg tablet 50 mg PO DAILY supplement 02/22/22 insulin lispro 100 unit/mL subcutaneous pen 20 unit subcut BREAKFAST diabetes 02/23/22 insulin lispro 100 unit/mL subcutaneous pen 20 unit subcut LUNCH diabetes 02/23/22 insulin lispro 100 unit/mL subcutaneous pen 25 unit subcut DINNER diabetes 02/23/22 acetaminophen 325 mg tablet (Tylenol) 650 mg PO Q4H PRN PRN Fever, pain 1-1010 #0 tabs 02/24/22 hydrocodone-acetaminophen 5-325mg 5mg-325mg 2 tab PO Q6H PRN PRN Pain Score 1- 10/10 1 day #4 tabs 02/24/22 insulin lispro 100 unit/mL subcutaneous pen (Humalog KwikPen (U-100) Insulin) See Protocol subcut ACHS #0 mL 02/24/22 melatonin 3 mg tablet 3 mg PO QHS PRN PRN Insomnia #0 tabs 02/24/22 Hospital Course Summary of Care Provided Minutes Spent on Discharge: 35 Hospital Course: Patient is a 66-year-old gentleman with multiple comorbidities admitted with progressive generalized weakness with falls and bilateral lower extremity edema 1. Physical deconditioning - Requested for PT OT eval and social worker delinquency prevention to assist with discharge planning -02/24/2022 awaiting PT eval prior to making a decision regarding disposition -Was discharged to a prison facility 2. Bilateral lower extremity edema ? Related to lymphedema. Recent outpatient evaluation with lower extremity duplex was negative for ultrasound CT of the abdomen obtained came back un remarkable. Consult placed wound care nurse. Also ordered a 2D echo for EF assessment -02/24/2022: 2D echo obtained today prior demonstrated ejection fraction of 65%. RVSP could not be assessed due to inadequate jet per echo report 3. Previous history of pulmonary embolism ? Requiring thrombectomy. Patient is on Xarelto 4. Class III obesity with BMI of 50.9 ? Weight loss advised 5. Dyslipidemia -Patient is on statin therapy, continued at home dose 4. Diabetes mellitus type II -patient's oral hypoglycemics held. Placed on long acting insulin, Accu-Cheks a.c. and at bedtime and covered with sliding scale insulin 7. Diabetic polyneuropathy ? Patient is on gabapentin 8. Essential hypertension ? Patient is on amlodipine which may be contributing to his lower extremity edema this has been discontinued 9. CKD stage IIIa ? Secondary to diabetic nephropathy kidney function at baseline 10. Obstructive sleep apnea ? Patient is on CPAP at night 11. DVT prophylaxis ? On Xareltod tobacco cessation. Physical Exam Narrative GENERAL: cooperative HEENT: Atraumatic; EYES; Anicteric, Normal Conjunctiva NECK; supple, normal thyroid, RESPIRATORY: Diminished to auscultation CARDIOVASCULAR: Regular S1 S2, GI: soft, normoactive bowel sounds, : No Renal angle tenderness; EXTREMITIES: Bilateral lower extremity lymphedema MUSCULOSKELETAL: no muscle wasting NEURO: Awake; no lateralizing signs. SKIN: No Rash PSYCH; Flat affect Weight / BMI Weight Weight: 170.2 kg Body Mass Index (BMI) 50.8 ABG / Lab / Microbiology Data Result Diagrams: 02/23/22 01:40 02/23/22 01:40 Laboratory: Laboratory Results - last 24 hr 02/23/22 16:01: POC Glucose 132 H 02/23/22 21:37: POC Glucose 88 02/24/22 07:40: POC Glucose 128 H 02/24/22 11:26: POC Glucose 141 H D/C Instructions Discharge Diet: 1800 Calorie Control Diet, 8 Cup Fluid Restriction and 2000 mg Sodium Diet Call your doctor if you observe: Fever of 101 or Higher, Shortness of breath, Fainting spells and Chest pain Meaningful Use Info Meaningful Use Diagnoses (Choose all that apply): None applicable Discharge Plan Admission Admit Date/Time: 02/22/22 23:39 Attending Provider: Pasquale Clifford Primary Care Provider: David Kate Consulting Providers: Fatuma Cyr Discharge Orders/Prescriptions Prescriptions: New acetaminophen [Tylenol] 325 mg Tablet 650 mg PO Q4H PRN PRN (Reason: Fever, pain 1-10/10) Qty: 0 0RF insulin lispro [Humalog KwikPen Insulin] 100 unit/mL Insulin Pen See Protocol subcut ACHS Qty: 0 0RF Protocol: 3. Sliding Scale Insulin Med Dosing Condition: 150-189 mg/dl = 1 unit Condition: 190-229 mg/dl = 2 units Condition: 230-269 mg/dl = 3 units Condition: 270-309 mg/dl = 4 units Condition: 310-349 mg/dl = 5 units Condition: 350-399 mg/dl = 6 units Condition: 400-449 mg/dl = 7 units Condition: Greater than 449 call physician Protocol Text: - Use for Total Daily Dose of Insulin 37-55 units - Obsese, infected, or steroid patients MEDIUM DOSING ALGORITHIM melatonin 3 mg Tablet 3 mg PO QHS PRN PRN (Reason: Insomnia) Qty: 0 0RF Continued tizanidine [Zanaflex] 4 MG tablet 4 mg PO Q8H PRN (Reason: Pain) Label Comments: PAIN furosemide 40 MG tablet 80 mg PO DAILY Label Comments: diuretic atorvastatin 20 MG tablet 20 mg PO QHS Label Comments: reduce cholesterol insulin glargine [Lantus Solostar U-100 Insulin] 100 UNITS/ML insulin pen 65 units subcut QHS Label Comments: diabetes multivitamin with folic acid [Thera] 1 TABLET tablet 1 tab PO DAILY Label Comments: vitamin metoprolol tartrate 25 MG tablet 75 mg PO BID Label Comments: reduce blood pressure Xarelto 20 MG tablet 20 mg PO DINNER Label Comments: BLOOD THINNER gabapentin 600 MG tablet 600 mg PO TIDCM Qty: 90 0RF doxazosin 4 MG tablet 4 mg PO QHS aspirin 81 MG tablet,chewable 81 mg PO DAILY amlodipine 10 mg tablet 1 tab PO DAILY albuterol sulfate 90 mcg/actuation HFA aerosol inhaler 2 inh INHALATION Q6H PRN PRN (Reason: SOB) zinc 50 mg Tablet 50 mg PO DAILY insulin lispro 100 unit/mL Insulin Pen 20 unit SUBCUT BREAKFAST insulin lispro 100 unit/mL Insulin Pen 20 unit SUBCUT LUNCH insulin lispro 100 unit/mL Insulin Pen 25 unit SUBCUT DINNER Changed hydrocodone-acetaminophen 1 EACH tablet 2 tab PO Q6H PRN PRN (Reason: Pain Score 1-10/10) 1 Days Qty: 4 0RF Discontinued potassium chloride [Klor-Con 10] 10 MEQ tablet extended release 40 meq PO DAILY Label Comments: supplement lisinopril 40 MG tablet 40 mg PO DAILY 0RF Trulicity 3 mg/0.5 mL Pen Injector 3 mg SUBCUT FR Referrals / Follow Up: David Kate MD [Primary Care Provider] - In 1 Week Disposition Disposition (needs filled in before D/C Order can be placed): Group Home Facility Charges/Coding Visit Charges Inpatient E&M: 71697 Disch Hosp
--- NOTE | 2022-02-24 13:26 | CASEMGMT ---
Social Work SW received referral from RNCM that pt is requesting to go to TCU. Phone call to TCU and they are able to accept pt. Physician updated and plans to discharge pt today. SW met with pt and with his and informed that TCU can accept and discharge is today. Orders faxed to TCU. Nursing updated. Plan: TCU, skilled level of care KATEY Haque
--- NOTE | 2022-02-24 14:17 | PHA.DC.MR ---
Pharmacy Service has performed discharge medication reconciliation for this patient. The patient's discharge medication list was reviewed for discrepancies and discrepancies were resolved. Home Medications tizanidine 4 mg tablet (Zanaflex) 4 mg PO Q8H PRN Pain 12/15/13 atorvastatin 20 mg tablet 20 mg PO QHS cholesterol 08/27/15 furosemide 40 mg tablet 80 mg PO DAILY diuretic 08/27/15 insulin glargine 100 unit/mL (3 mL) subcutaneous pen (Lantus Solostar U-100 Insulin) 65 units subcut QHS diabetes 08/27/15 multivitamin with folic acid 400 mcg tablet (Thera) 1 tab PO DAILY supplement 10/18/15 metoprolol tartrate 25 mg tablet 75 mg PO BID blood pressure 03/23/16 rivaroxaban 20 mg tablet (Xarelto) 20 mg PO DINNER blood thinner 03/23/16 gabapentin 600 mg tablet 600 mg PO TIDCM ##90 03/29/16 aspirin 81 mg chewable tablet 81 mg PO DAILY heart health 04/03/20 doxazosin 4 mg tablet 4 mg PO QHS blood pressure 04/03/20 albuterol sulfate 90 mcg/actuation aerosol inhaler 2 inh inhalation Q6H PRN PRN SOB 02/22/22 amlodipine 10 mg tablet 1 tab PO DAILY hypertension 02/22/22 zinc 50 mg tablet 50 mg PO DAILY supplement 02/22/22 insulin lispro 100 unit/mL subcutaneous pen 20 unit subcut BREAKFAST diabetes 02/23/22 insulin lispro 100 unit/mL subcutaneous pen 20 unit subcut LUNCH diabetes 02/23/22 insulin lispro 100 unit/mL subcutaneous pen 25 unit subcut DINNER diabetes 02/23/22 acetaminophen 325 mg tablet (Tylenol) 650 mg PO Q4H PRN PRN Fever, pain 1-10/10 #0 tabs 02/24/22 hydrocodone-acetaminophen 5-325mg 5mg-325mg 2 tab PO Q6H PRN PRN Pain Score 1-10/10 1 day #4 tabs 02/24/22 insulin lispro 100 unit/mL subcutaneous pen (Humalog KwikPen (U-100) Insulin) See Protocol subcut ACHS #0 mL 02/24/22 melatonin 3 mg tablet 3 mg PO QHS PRN PRN Insomnia #0 tabs 02/24/22
[2022-02-24 14:18] VITALS: BP 107/68; PULSE 77; RESP 18; TEMP 36.8; O2SAT 98
== END 2022-02-24 14:37 ==
LOC: ED 23:22 → MS3 23:51
PROVIDERS: Admitting Provider Family Medicine; Emergency Provider Emergency Medicine; PCP Internal Medicine; Visit Provider Internal Medicine
DX: E11.22 Type 2 diabetes mellitus with diabetic chronic kidney disease (principal); E11.40 Type 2 diabetes mellitus with diabetic neuropathy, unspecified; E66.01 Morbid (severe) obesity due to excess calories; Z68.43 Body mass index [BMI] 50.0-59.9, adult; Z79.4 Long term (current) use of insulin; N18.31 Chronic kidney disease, stage 3a; Z79.01 Long term (current) use of anticoagulants; I12.9 Hypertensive chronic kidney disease with stage 1 through stage 4 chronic kidney disease, or unspecified chronic kidney disease; R41.0 Disorientation, unspecified; I89.0 Lymphedema, not elsewhere classified; R53.1 Weakness; M79.662 Pain in left lower leg; G47.33 Obstructive sleep apnea (adult) (pediatric); R60.0 Localized edema; Z96.652 Presence of left artificial knee joint; E78.5 Hyperlipidemia, unspecified; Z87.891 Personal history of nicotine dependence; Z86.711 Personal history of pulmonary embolism; Z86.718 Personal history of other venous thrombosis and embolism; Z79.899 Other long term (current) drug therapy; Z79.82 Long term (current) use of aspirin; N40.0 Benign prostatic hyperplasia without lower urinary tract symptoms
CPT/HCPCS: 36415; 51702; 70450; 71045; 73552; 73590; 74176; 80053; 81001; 82962; 83880; 84145; 85025; 87426; 87428; 93005; 93306; 96360; 96361; 97162; 97166; 99218; 99251; 99285; J7030; Q9957; A4216; C8929; G0378; G0463

== ENCOUNTER 2022-02-24 14:45 | Inpatient (IN) | payer MEDICARE, BC, SELFPAY ==
[2022-02-24 15:11] VITALS: BP 114/54; PULSE 78; RESP 16; TEMP 36.9; O2SAT 90
[2022-02-24 16:36] VITALS: BMI 51.0
[2022-02-24 17:40] LABS: Bedside Glucose 122 mg/dL (74-106)
[2022-02-24] MEDS: Insulin Lispro 100 UNIT/ML INSULN.PEN 25 UNIT SC (17:55)
--- NOTE | 2022-02-24 18:28 | PCM.HP.STD ---
HPI - General General Date of Admission: 02/24/22 Date of Service: 02/24/22 Chief Complaint: Here for rehab. HPI Narrative 02/22/2022 TRINI MEJIAS, is a 66 Male who presents to [facility] Emergency Department with edema. 02/22/2022 EKG sinus tachycardia, left axis deviation. Lower lower extremity pain x 8 days, Doppler ultrasound negative DVT at [facility]. On antibiotics for cellulitis left lower extremity, no improvement. Weak, fell down, confused. Unable walk. WBC 18.6, Sodium 134, BUN 46, Creatinine 2.26. 02/22/[address] abdomen/pelvis for worsening lower extremity edema. IV fluids for acute kidney injury. 02/23/2022 PT/OT for debility. Wound nurse for bilateral lower extremity secondary to lymphedema. Xarelto for pulmonary embolism requiring thrombectomy in the past. 02/23/2022 Echo EF 65%. Normal diastole. PT/OT for senior living facility. CT abdomen/pelvis negative. Amlodipine stopped for bilateral lower extremity edema. Creatinine improved to 1.99. 02/24/2022 Admit to TCU with debility, here for rehabilitation, strenghthening, prior to discharge home with . [facility] Medical History BPH (benign prostatic hyperplasia) Diabetes mellitus Dyslipidemia Former tobacco use HTN (hypertension) Morbid obesity GRETCHEN treated with BiPAP VTE (venous thromboembolism) Home Medications tizanidine 4 mg tablet (Zanaflex) 4 mg PO Q8H PRN Pain 12/15/13 [History Last Taken 11/29/15 10:00 4 MG] atorvastatin 20 mg tablet 20 mg PO QHS cholesterol 08/27/15 [History Last Taken 02/21/22] furosemide 40 mg tablet 80 mg PO DAILY diuretic 08/27/15 [History Last Taken 02/22/22] insulin glargine 100 unit/mL (3 mL) subcutaneous pen (Lantus Solostar U-100 Insulin) 65 units subcut QHS diabetes 08/27/15 [History Last Taken 02/21/22] multivitamin with folic acid 400 mcg tablet (Thera) 1 tab PO DAILY supplement 10/18/15 [History Last Taken 02/22/22] metoprolol tartrate 25 mg tablet 75 mg PO BID blood pressure 03/23/16 [History Last Taken 02/22/22] rivaroxaban 20 mg tablet (Xarelto) 20 mg PO DINNER blood thinner 03/23/16 [History Last Taken 02/21/22] aspirin 81 mg chewable tablet 81 mg PO DAILY heart health 04/03/20 [History Last Taken 02/22/22] doxazosin 4 mg tablet 4 mg PO QHS blood pressure 04/03/20 [History Last Taken 02/21/22] albuterol sulfate 90 mcg/actuation aerosol inhaler 2 inh inhalation Q6H PRN PRN SOB 02/22/22 [History Last Taken Unknown] amlodipine 10 mg tablet 1 tab PO DAILY hypertension 02/22/22 [History Last Taken 02/22/22] zinc 50 mg tablet 50 mg PO DAILY supplement 02/22/22 [History Last Taken 02/22/22] insulin lispro 100 unit/mL subcutaneous pen 20 unit subcut BREAKFAST diabetes 02/23/22 [History Last Taken 02/22/22] insulin lispro 100 unit/mL subcutaneous pen 20 unit subcut LUNCH diabetes 02/23/22 [History Last Taken 02/22/22] insulin lispro 100 unit/mL subcutaneous pen 25 unit subcut DINNER diabetes 02/23/22 [History Last Taken Unknown] acetaminophen 325 mg tablet (Tylenol) 650 mg PO Q4H PRN PRN Fever, pain 1-10/10 #0 tabs 02/24/22 [Rx Last Taken Unknown] gabapentin 600 mg tablet 600 mg PO TIDCM Nerve Pain 02/24/22 [History Last Taken Unknown] hydrocodone-acetaminophen 5-325mg 5mg-325mg 2 tab PO Q6H PRN PRN Pain Score 1-10/10 1 day #4 tabs 02/24/22 [Rx Last Taken Unknown] insulin lispro 100 unit/mL subcutaneous pen (Humalog KwikPen (U-100) Insulin) See Protocol subcut ACHS Daibetes 02/24/22 [History Last Taken Unknown] melatonin 3 mg tablet 3 mg PO QHS PRN PRN Insomnia #0 tabs 02/24/22 [Rx Last Taken Unknown] Allergy/AdvReac Type Severity Reaction Status Date / Time Penicillins Allergy Unknown Hives Verified 02/22/22 20:03 erythromycin base AdvReac Nausea Verified 02/22/22 20:03 [Erythromycin Base] Family History Mother Diabetes Heart disease Coagulopathy Father Heart disease CVA (cerebral vascular accident) Parkinsons disease Surgical History History of vascular surgery Hx of laminectomy Hx of total knee replacement Status post creation of pericardial window Social History household members: spouse Smoking Status: Former smoker how long ago did patient quit smoking: Quit 1994, smoked 1 ppd since age 15. alcohol intake: never substance use type: does not use ROS Constitutional Constitutional: Denies chills, fever(s) or weight gain ENT HEENT: Denies headache(s), nasal congestion or nasal discharge Cardiovascular Cardiovascular: Denies chest pain or palpitations Respiratory/Chest Respiratory/Chest: Denies cough, excessive phlegm production or shortness of breath with exertion Gastrointestinal Gastrointestinal: Denies abdominal pain, nausea or vomiting Genitourinary Genitourinary: Denies dysuria Musculoskeletal Musculoskeletal: Denies joint pain or joint swelling Integumentary Integumentary: Denies rash or wounds Neurologic Neurologic: Denies focal weakness, numbness or tingling Psychiatric Psychiatric: Denies anxiety, auditory hallucinations, depression, homicidal ideation or suicidal ideation Vital Signs Vital Signs Vital Signs: 02/24/22 15:11 Temperature 98.5 F Temperature Source Temporal Pulse Rate 78 Respiratory Rate 16 Blood Pressure 114/54 L Blood Pressure Mean 74 Blood Pressure Source Monitor Blood Pressure Position Semi-Fowlers Blood Pressure Location Right Arm Pulse Ox 90 Oxygen Delivery Method Room Air Weight Weight: 170.641 kg Body Mass Index (BMI) 51.0 Physical Exam Const alert General Appearance: cooperative HEENT normocephalic Eyes PERRL and EOMs intact bilaterally Neck supple, no JVD and no carotid bruits Resp normal respiratory effort, normal air movement and clear to auscultation bilaterally Cardio regular rate and regular rhythm GI normal to inspection, nondistended, normoactive bowel sounds, non-tender and non-distended Extremity normal capillary refill Extremity Narrative: Bilateral lower extremity edema, CARMEN wraps. General Extremity: edema bilateral Skin no rashes or lesions noted General Skin Exam: no breakdown Psych affect normal Appearance: appropriate Results Lab / Micro Data Labs: Laboratory Results - last 24 hr 02/24/22 17:16: POC Glucose 122 H Assessment & Plan Assessment/Plan (1) Debility: (2) Lower extremity edema: (3) Encephalopathy: (4) Acute kidney injury: (5) Lymphedema: (6) History of deep vein thrombosis: (7) History of pulmonary embolism: (8) Hypertension: (9) Diabetes mellitus: (10) Muscle spasm: (11) Diabetic polyneuropathy: (12) Benign prostatic hyperplasia: (13) Body mass index (BMI) greater than 50: PLAN: Plan 66 year old male with below past medical history hospitalized for acute encephalopathy, complicated by acute kidney injury, lymphedema, cellulitis ruled out, admittted to TCU with debility, here for rehabilitation, strengthening, prior to discharge home with . Debility - PT/OT. Pain - Tylenol 650mg q4h prn pain (1-5), [place] 2 tablets Q6h prn pain (6-10). Bowel - Senna/colace 2 tablets bid, Dulcolax 10mg daily prn. Adult immunization - Administer pneumonia vaccine, covid19 vaccine, flu vaccine. DVT prophylaxis - Not necessary, Xarelto 20mg daily. Shortness of breath - Albuterol 2 puff q6h prn. Hyperlipidemia - Atorvastatin 20mg qhs. BPH - Doxazosin 4mg qhs. Skin irritation - Eucerin topical qhs, Calmoseptine topical bid. Lymphedema - Furosemide 80mg daily, compression. Diabetic polyneuropathy - Gabapentin 600mg tidcm. Diabetes Mellitus II - Glargine 65 units qhs, Humalog 20 units, 20 units, 25 units. Insomnia - Melatonin 3mg qhs. Hypertension - Metoprolol 75mg bid, stop Amlodipine 10mg due to edema. Nutrition - MVI daily. Tinea Corporis - Nystatin powder topical bid. Pulmonary embolism, recurrent - Xarelto 20mg daily. Muscle spasm - Tizanidine 4mg q8h prn. Zinc deficiency - Zinc 220mg daily.
[2022-02-24] MEDS: Nystatin Powder 15gm Bottle 1 APPLIC TOPICAL (18:54)
[2022-02-24 18:55] VITALS: BP 128/60; PULSE 83
[2022-02-24] MEDS: Metoprolol Tartrate 50 MG Tablet 75 MG PO (18:55)
[2022-02-24] MEDS: Rivaroxaban 20 MG Tablet PO (18:57)
[2022-02-24] MEDS: Gabapentin 600 MG Tablet PO (19:45)
[2022-02-24 21:50] LABS: Bedside Glucose 148 mg/dL (74-106)
[2022-02-24] MEDS: Insulin Glargine-YFGN 100 UNIT/ML Pen 65 UNIT SC (22:40)
[2022-02-24] MEDS: Atorvastatin Calcium 20 MG Tablet PO (22:41)
[2022-02-24] MEDS: Doxazosin 4 MG Tablet PO (22:42)
[2022-02-24] MEDS: Menthol/Lanolin/Calamine/Znox 113 GM Tube 1 APPLIC TOPICAL (22:45)
[2022-02-24] MEDS: HYDROcodone Bitartrate/Apap 5/325 Tablet PO (22:51)
[2022-02-24] MEDS: Senna/Docusate Sodium 1 Tablet 2 TABLET PO (22:51)
[2022-02-24] MEDS: MELATONIN 3 MG TABLET PO (22:51)
--- NOTE | 2022-02-24 23:37 | NURSING ---
contacted via telephone regarding urinary retention, 480cc via bladder scan, spouse reports patient was retaining urine on admit to ED and hall was placed, hall removed this date on acute side, reviewed med list, new order received for Tamsulosin 0.4mg daily and strt cath if greater than 300cc, orders repeated back.
[2022-02-25] MEDS: Menthol/Lanolin/Calamine/Znox 113 GM Tube 1 APPLIC TOPICAL ×2 (05:31→18:02)
[2022-02-25] MEDS: Nystatin Powder 15gm Bottle 1 APPLIC TOPICAL ×2 (05:32→17:59)
[2022-02-25] MEDS: Bisacodyl 5 MG Tablet 10 MG PO (05:36)
[2022-02-25] MEDS: Furosemide 80 MG Tablet PO (05:36)
[2022-02-25 05:37] VITALS: BP 128/68; PULSE 80
[2022-02-25] MEDS: Metoprolol Tartrate 50 MG Tablet 75 MG PO ×2 (05:37→17:58)
[2022-02-25] MEDS: Senna/Docusate Sodium 1 Tablet 2 TABLET PO ×2 (05:41→17:58)
[2022-02-25 05:54] LABS: Absolute Lymphocyte Count 2.56 X10^3/uL (0.83-4.51); Absolute Neutrophil Count 8.5 X10^3/uL (2.0-7.7); Basophil# 0.08 X10^3/uL; Basophil% 0.6 % (0-1); Eosinophil# 0.31 X10^3/uL; Eosinophils% 2.4 % (0-5); Hematocrit 34.8 % (40-54); Lymphocyte # 2.56 X10^3/ul (0.83-4.51); Lymphocyte % 20.1 % (19-41); Mean Corp Hgb Conc 31.6 g/dL (32-36); Mean Corpuscular Hgb 28.5 pg (27.0-32.0); Mean Corpuscular Volume 90.2 fL (80-94); Mean Platelet Vol. 8.9 fl (6.2-12.0); Monocyte# 1.14 X10^3/uL; Monocyte% 8.9 % (0-10); NRBC Flagged by Analyzer 0 % (0-5); Neutrophil % 66.7 % (47-70); Platelet Count 355 K/mm3 (150-450); RBC Distribution Width CV 12.2 % (11.6-14.6); RBC Distribution Width SD 39.8 fl (35.1-43.9); Red Blood Count 3.86 M/mm3 (4.6-6.2); White Blood Count 12.8 K/mm3 (4.4-11.0)
[2022-02-25 06:13] LABS: Anion Gap 6 (5-15); BUN 33 mg/dL (7-18); BUN/Creat Ratio 19.9 RATIO (10-20); Calcium,Total 9.3 mg/dL (8.5-10.1); Chloride 104 mmol/L (98-107); Creatinine, Serum 1.66 mg/dL (0.70-1.30); EST Glomerular Filtration Rate 44 mL/min (>60); Est Glom Filt Rate - Afr Amer 53 mL/min (>60); Glucose 131 mg/dL (74-106); Potassium 4.3 mmol/L (3.5-5.1); Sodium Level 136 mmol/L (136-145)
[2022-02-25 06:46] LABS: Bedside Glucose 131 mg/dL (74-106)
[2022-02-25] MEDS: Multivitamins,Therapeutic Tablet 1 TABLET PO (07:41)
[2022-02-25] MEDS: HYDROcodone Bitartrate/Apap 5/325 Tablet PO (07:41)
[2022-02-25] MEDS: Gabapentin 600 MG Tablet PO ×3 (07:41→17:59)
[2022-02-25] MEDS: Insulin Lispro 100 UNIT/ML INSULN.PEN 20 UNIT SC ×2 (07:42→12:01)
[2022-02-25 10:00] VITALS: PULSE 70; RESP 20; O2SAT 91
[2022-02-25 11:30] LABS: Bedside Glucose 184 mg/dL (74-106)
[2022-02-25] MEDS: Tuberculin,Purif.prot.deriv. 50 TU/ML Vial 0.1 ML ID (12:01)
[2022-02-25 16:00] VITALS: BP 102/61; PULSE 75; RESP 24; TEMP 36.8; O2SAT 89
[2022-02-25 17:01] VITALS: O2SAT 93
[2022-02-25 17:10] LABS: Bedside Glucose 109 mg/dL (74-106)
[2022-02-25 17:58] VITALS: PULSE 75
[2022-02-25] MEDS: Tamsulosin HCl 0.4 MG Capsule PO (17:58)
[2022-02-25] MEDS: Rivaroxaban 20 MG Tablet PO (17:58)
[2022-02-25] MEDS: Insulin Lispro 100 UNIT/ML INSULN.PEN 25 UNIT SC (17:59)
[2022-02-25 21:40] LABS: Bedside Glucose 128 mg/dL (74-106)
[2022-02-25] MEDS: Atorvastatin Calcium 20 MG Tablet PO (22:11)
[2022-02-25] MEDS: Doxazosin 4 MG Tablet PO (22:11)
[2022-02-25] MEDS: Insulin Glargine-YFGN 100 UNIT/ML Pen 65 UNIT SC (22:13)
[2022-02-26 06:51] LABS: Bedside Glucose 144 mg/dL (74-106)
[2022-02-26 08:27] VITALS: BP 118/65; PULSE 100
[2022-02-26] MEDS: Furosemide 80 MG Tablet PO (08:27)
[2022-02-26] MEDS: Senna/Docusate Sodium 1 Tablet 2 TABLET PO ×2 (08:27→17:24)
[2022-02-26] MEDS: Metoprolol Tartrate 50 MG Tablet 75 MG PO ×2 (08:27→17:23)
[2022-02-26] MEDS: Multivitamins,Therapeutic Tablet 1 TABLET PO (08:27)
[2022-02-26] MEDS: Menthol/Lanolin/Calamine/Znox 113 GM Tube 1 APPLIC TOPICAL ×2 (08:28→17:24)
[2022-02-26] MEDS: Nystatin Powder 15gm Bottle 1 APPLIC TOPICAL ×2 (08:28→17:25)
[2022-02-26] MEDS: Insulin Lispro 100 UNIT/ML INSULN.PEN 20 UNIT SC ×2 (08:28→12:05)
[2022-02-26] MEDS: Gabapentin 600 MG Tablet PO ×2 (10:39→17:24)
[2022-02-26 11:41] LABS: Bedside Glucose 158 mg/dL (74-106)
[2022-02-26] MEDS: HYDROcodone Bitartrate/Apap 5/325 Tablet PO (12:09)
[2022-02-26 14:20] VITALS: BP 119/66; PULSE 75; RESP 14; TEMP 36.3; O2SAT 95
[2022-02-26 16:27] VITALS: O2SAT 94
[2022-02-26 16:55] LABS: Bedside Glucose 103 mg/dL (74-106)
[2022-02-26] MEDS: Insulin Lispro 100 UNIT/ML INSULN.PEN 25 UNIT SC (17:22)
[2022-02-26 17:23] VITALS: PULSE 75
[2022-02-26] MEDS: Rivaroxaban 20 MG Tablet PO (17:24)
[2022-02-26] MEDS: Tamsulosin HCl 0.4 MG Capsule PO (17:24)
[2022-02-26 22:33] VITALS: BP 125/62; PULSE 76
[2022-02-26] MEDS: Insulin Glargine-YFGN 100 UNIT/ML Pen 65 UNIT SC (22:38)
[2022-02-26] MEDS: Atorvastatin Calcium 20 MG Tablet PO (22:40)
[2022-02-26] MEDS: Doxazosin 4 MG Tablet PO (22:40)
--- NOTE | 2022-02-26 22:45 | NURSING ---
HS snack given- Rosemary Doone cookies and 2% milk. Glargine insulin administered per dr order.
--- NOTE | 2022-02-26 22:45 | NURSING ---
Bladder scan completed. Volume ranges from 0-447ml. Lower abdomen soft and nontender. No distention noted. Denies any discomfort. WIll continue to monitor.
--- NOTE | 2022-02-27 01:56 | NURSING ---
Spoke w/ Efe in respiratory questioning if pt should have O2 bleed-in at hs d/t adapter in place and peak flow meter was off. Mask is poor fitting- lower lip and part of mouth exposed. Questioned if someone is able to fit him for a mask that is more suitable. He will update dayshift staff to have sleep lab contacted to assess pt.
--- NOTE | 2022-02-27 02:25 | NURSING ---
Call light sounds. This nurse and two cartridge assembling machine adjuster enter room. Pt pulled call light out of connector on wall. Sitting on the edge of the bed. Has removed CPAP mask, moved CPAP unit, and placed bag for CPAP and associated items on his bed. Unsure where he is initially and thinks he needs to be somewhere else. Pt able to identify person and place. Incontinent of urine. Linens changed. Calmoseptine applied to buttocks. Pt repeatedly verbalizes his is going to be upset with him due to his confusion and thinks he needs to be seen by a psychiatrist stating, I'm losing it. In mild distress. Blood sugar is 128. Speech is clear. Skin pink, warm, and dry. SpO2 95% on room air. Pt very apologetic during this episode of confusion. Did not reapply CPAP as pt has been restless in bed and unit has been well over the edge of his nightstand during previous rounds. O2 applied at 2 lpm via nc. Emotional support and active listening provided. Has a tear in his right eye. Call light w/ in reach and instructed on use. Will continue to monitor.
[2022-02-27 03:25] LABS: Bedside Glucose 128 mg/dL (74-106)
[2022-02-27] MEDS: HYDROcodone Bitartrate/Apap 5/325 Tablet PO (05:46)
[2022-02-27 05:47] VITALS: BP 130/72; PULSE 86
[2022-02-27] MEDS: Metoprolol Tartrate 50 MG Tablet 75 MG PO ×2 (05:47→17:55)
[2022-02-27] MEDS: Senna/Docusate Sodium 1 Tablet 2 TABLET PO (05:48)
[2022-02-27] MEDS: Furosemide 80 MG Tablet PO (05:48)
[2022-02-27] MEDS: Menthol/Lanolin/Calamine/Znox 113 GM Tube 1 APPLIC TOPICAL ×2 (05:49→17:55)
[2022-02-27] MEDS: Nystatin Powder 15gm Bottle 1 APPLIC TOPICAL (05:49)
[2022-02-27 06:11] LABS: Bedside Glucose 83 mg/dL (74-106)
[2022-02-27 06:40] LABS: Bedside Glucose 112 mg/dL (74-106)
[2022-02-27] MEDS: Gabapentin 600 MG Tablet PO ×3 (08:45→17:58)
[2022-02-27] MEDS: Multivitamins,Therapeutic Tablet 1 TABLET PO (08:45)
[2022-02-27] MEDS: Insulin Lispro 100 UNIT/ML INSULN.PEN 20 UNIT SC ×2 (08:46→11:56)
[2022-02-27 11:35] LABS: Bedside Glucose 195 mg/dL (74-106)
[2022-02-27 13:08] VITALS: O2SAT 94
--- NOTE | 2022-02-27 14:49 | WOUNDNOTE ---
wound photo: right heel
[2022-02-27 14:59] VITALS: BP 139/72; PULSE 81; RESP 17; TEMP 36.1; O2SAT 93
--- NOTE | 2022-02-27 16:01 | NURSING ---
Resident educated on the COVID 19 vaccine. He does not want to receive it.
[2022-02-27 16:21] LABS: Bedside Glucose 107 mg/dL (74-106)
[2022-02-27] MEDS: Insulin Lispro 100 UNIT/ML INSULN.PEN 25 UNIT SC (17:52)
[2022-02-27] MEDS: Rivaroxaban 20 MG Tablet PO (17:54)
[2022-02-27] MEDS: Tamsulosin HCl 0.4 MG Capsule PO (17:54)
[2022-02-27 17:55] VITALS: BP 139/72; PULSE 81
[2022-02-27 21:35] LABS: Bedside Glucose 179 mg/dL (74-106)
[2022-02-27] MEDS: Insulin Glargine-YFGN 100 UNIT/ML Pen 65 UNIT SC (22:17)
[2022-02-27] MEDS: Atorvastatin Calcium 20 MG Tablet PO (22:20)
[2022-02-27] MEDS: Doxazosin 4 MG Tablet PO (22:20)
[2022-02-27] MEDS: MELATONIN 10 MG TABLET PO (22:20)
--- NOTE | 2022-02-28 01:42 | NURSING ---
Contacted Respiratory to evaluate C-pap mask. Stated it was a good fit and he should be ok with it.
[2022-02-28 06:09] VITALS: BP 123/72; PULSE 84
[2022-02-28] MEDS: Metoprolol Tartrate 50 MG Tablet 75 MG PO ×2 (06:09→17:28)
[2022-02-28] MEDS: Furosemide 80 MG Tablet PO (06:10)
[2022-02-28] MEDS: Nystatin Powder 15gm Bottle 1 APPLIC TOPICAL ×2 (06:12→17:31)
[2022-02-28] MEDS: Menthol/Lanolin/Calamine/Znox 113 GM Tube 1 APPLIC TOPICAL ×2 (06:12→17:31)
[2022-02-28 06:56] LABS: Bedside Glucose 147 mg/dL (74-106)
[2022-02-28] MEDS: Gabapentin 600 MG Tablet PO ×3 (07:41→17:28)
[2022-02-28] MEDS: Insulin Lispro 100 UNIT/ML INSULN.PEN 20 UNIT SC ×2 (07:42→12:21)
[2022-02-28] MEDS: Multivitamins,Therapeutic Tablet 1 TABLET PO (07:42)
[2022-02-28] MEDS: HYDROcodone Bitartrate/Apap 5/325 Tablet PO ×2 (07:46→16:02)
--- NOTE | 2022-02-28 11:01 | PHA.CONS_ITS ---
TCU RX Drug Regimen Review Subjective: TCU Admission. 66 YOM presented to ER with edema. Admitted to the hospital for encephalopathy complicated by IMER and lymphedema. Cellulitis ruled out, amlodipine stopped due to lower extremity edema. Admitted to TCU with debility for strengthening and rehabilitation. Objective: Allergies Penicillins Allergy (Unknown, Verified 02/22/22 20:03) Hives erythromycin base [Erythromycin Base] Adverse Reaction (Verified 02/22/22 20:03) Nausea Current Medications Generic Name Dose Route Start Last Admin Trade Name Freq PRN Reason Stop Dose Admin Acetaminophen 650 mg 02/24/22 18:49 Acetaminophen 325 Mg Tablet PO Q4H PRN PRN Pain Score 1-5 Hydrocodone Bitart/Acetaminophen 2 tablet 02/24/22 18:49 02/28/22 07:46 Hydrocodone Bitartrate/Apap 5/325 Tablet PO 2 tablet Q6H PRN PRN Administration Pain Score 6-10 Albuterol Sulfate 2 puff 02/24/22 15:40 Albuterol Sulfate 8 Gm Inhaler (60 Puffs) INHALATION Q6H PRN PRN SHORTNESS OF BREATH Atorvastatin Calcium 20 mg 02/24/22 22:00 02/27/22 22:20 Atorvastatin Calcium 20 Mg Tablet PO 20 mg QHS ANI Administration Bisacodyl 10 mg 02/24/22 18:48 02/25/22 05:36 Bisacodyl 5 Mg Tablet PO 10 mg DAILY PRN Administration CONSTIPATION Calamine/Phenol 1 applic 02/24/22 18:00 02/28/22 06:12 Menthol/Lanolin/Calamine/Znox 113 Gm Tube TOPICAL 1 applic BID ANI Administration Protocol Doxazosin Mesylate 4 mg 02/24/22 22:00 02/27/22 22:20 Doxazosin 4 Mg Tablet PO 4 mg QHS ANI Administration Emollient Ointment 1 applic 02/24/22 22:00 02/27/22 22:24 Emollient Combination No.72 500 Ml Lotion TOPICAL 1 applic QHS ANI Administration Protocol Furosemide 80 mg 02/25/22 06:00 02/28/22 06:10 Furosemide 80 Mg Tablet PO 80 mg DAILY ANI Administration Gabapentin 600 mg 02/24/22 17:45 02/28/22 07:41 Gabapentin 600 Mg Tablet PO 600 mg TIDCM ANI Administration Insulin Glargine 65 unit 02/24/22 22:00 02/27/22 22:17 Insulin Glargine-Yfgn 100 Unit/Ml Pen SC 65 unit QHS ANI Administration Insulin Human Lispro 20 unit 02/25/22 08:00 02/28/22 07:42 Insulin Lispro 100 Unit/Ml Insuln.Pen SC 20 u BREAKFAST ANI Administration Insulin Human Lispro 20 unit 02/25/22 12:00 02/27/22 11:56 Insulin Lispro 100 Unit/Ml Insuln.Pen SC 20 u LUNCH ANI Administration Insulin Human Lispro 25 unit 02/24/22 17:00 02/27/22 17:52 Insulin Lispro 100 Unit/Ml Insuln.Pen SC 25 unit DINNER [facility] Administration Melatonin 10 mg 02/27/22 22:00 02/27/22 22:20 Melatonin 10 Mg Tablet PO 10 mg QHS [facility] Administration Metoprolol Tartrate 75 mg 02/24/22 18:00 02/28/22 06:09 Metoprolol Tartrate 50 Mg Tablet PO 75 mg BID [facility] Administration Multivitamins 1 tablet 02/25/22 08:00 02/28/22 07:42 Multivitamins,Therapeutic Tablet PO 1 tablet DAILYCM [facility] Administration Nystatin 1 applic 02/24/22 18:00 02/28/22 06:12 Nystatin Powder 15gm Bottle TOPICAL 1 applic BID [facility] Administration Protocol Rivaroxaban 20 mg 02/24/22 17:00 02/27/22 17:54 Rivaroxaban 20 Mg Tablet PO 20 mg DINNER [facility] Administration Senna/Docusate Sodium 2 tablet 02/24/22 19:00 02/28/22 06:11 Senna/Docusate Sodium 1 Tablet PO Not Given BID [facility] Sodium Chloride 10 - 40 ml 02/24/22 15:42 0.9% Saline Lock 10 Ml Syringe IV UD PRN SALINE FLUSH Tamsulosin HCl 0.4 mg 02/25/22 17:30 02/27/22 17:54 Tamsulosin Hcl 0.4 Mg Capsule PO 0.4 mg DAILY@1730 [facility] Administration Tizanidine HCl 4 mg 02/24/22 17:02 Tizanidine Hcl 2 Mg Tablet PO Q8H PRN PRN MUSCLE SPASMS Tuberculin PPD 0.1 ml 03/04/22 10:00 Tuberculin,Purif.Prot.Deriv. 50 Tu/Ml Vial ID 03/04/22 10:01 X1 ONE Zinc Sulfate 220 mg 02/25/22 06:00 02/28/22 06:10 Zinc Sulfate (50mg Elemental) 220 Mg Capsule PO 220 mg DAILY ANI Administration Problem List (Last Reviewed 02/24/22 @ 18:[address] Edmund Araujo MD) Body mass index (BMI) greater than 50 (Acute) Benign prostatic hyperplasia (Acute) Diabetic polyneuropathy (Acute) Muscle spasm (Acute) Diabetes mellitus (Acute) Hypertension (Chronic) History of pulmonary embolism (Acute) History of deep vein thrombosis (Acute) Lymphedema (Acute) Acute kidney injury (Acute) Encephalopathy (Acute) Debility (Acute) Lower extremity edema (Acute) Vital Signs Temp Pulse Resp BP Pulse Ox O2 Del Method O2 Flow Rate 97.0 F L 84 17 123/72 H 93 Room Air 2 02/27/22 14:59 02/28/22 06:09 02/27/22 14:59 02/28/22 06:09 02/27/22 14:59 02/27/22 14:59 02/27/22 08:38 Oxygen Flow Rate (L/min) 2 Oxygen Delivery Method Room Air Weight: 170.641 kg Body Mass Index (BMI) 51.0 Sodium 136 mmol/L (136-145) 02/25/22 05:38 Potassium 4.3 mmol/L (3.5-5.1) 02/25/22 05:38 Chloride 104 mmol/L (98-107) 02/25/22 05:38 Carbon Dioxide 26.0 mmol/L (21.0-32.0) 02/25/22 05:38 Anion Gap 6 (5-15) 02/25/22 05:38 BUN 33 mg/dL (7-18) H 02/25/22 05:38 Creatinine 1.66 mg/dL (0.70-1.30) H 02/25/22 05:38 Est GFR (MDRD) Af Amer 53 mL/min (>60) L 02/25/22 05:38 Est GFR (MDRD) Non-Af 44 mL/min (>60) L 02/25/22 05:38 BUN/Creatinine Ratio 19.9 RATIO (10-20) 02/25/22 05:38 Glucose 131 mg/dL (74-106) H 02/25/22 05:38 Assessment/Plan: 1. Pain: acetaminophen 650mg PO Q4H PRN pain 1-5 and [place] 5/325mg 2T PO Q6H PRN pain 6-10. Resident has received 5 doses of [place] for pain scores 9-10 in the back/knee. Has not received any acetaminophen. Please continue to monitor for increased pain, PRN usage, constipation and respiratory depression. 2. Bowel: senna/docusate 2T PO BID and bisacodyl 10mg PO daily PRN constipation. Resident received 1 dose of bisacodyl and has had 1 documented bowel movement. Please continue to monitor for constipation and PRN usage. 3. Lymphedema: furosemide 80mg PO daily. Please continue to monitor for S/S of edema, potassium (last 4.3mmol/L), sodium (last 136mmol/L) and renal function. 4. Hypertension: metoprolol tartrate 75mg PO BID. Please continue to monitor for HR (last 84) and BP (last 123/72). 5. Hyperlipidemia: atorvastatin 20mg PO QHS. Resident does not have a lipid panel in the chart. Please consider ordering a lipid panel now and then annually as clinically appropriate. Thanks. Please continue to monitor AST/ALT (last 02/23/22) and muscle pain. 6. Diabetes mellitus: insulin glargine 65units SC QHS and insulin lispro 20units SC breakfast/lunch and 25units SC dinner. Resident dose not have a hemoglobin A1c in the chart. Please consider ordering a hemoglobin A1c now and then every 3 months as clinically appropriate. Thanks. Please continue to monitor glucose (last 147mg/dL) and for S/S of hypoglycemia. 7. Pulmonary embolism: rivaroxaban 20mg PO DINNER. Please continue to monitor for S/S of bleeding and hemoglobin (last 11g/dL). 8. BPH/urinary retention (per nursing note): doxazosin 4mg PO QHS and tamsulosin 0.4mg PO daily. Please continue to monitor BP (doxazosin is a BEERs criteria medication for orthostatic hypotension) , urinary retention and S/S of BPH. 9. Shortness of breath: albuterol inhaler 2 inhalations Q6H PRN SOB. Resident has not required any doses. Please continue to monitor for S/S of SOB and PRN usage. 10. Insomnia: melatonin 10mg PO QHS. Please continue to monitor for excessive drowsiness. 11. Muscle spasm: tizanidine 4mg PO Q8H PRN muscle spasms. Resident has not required any doses. If resident requires doses, could contribute to urinary retention. This medication is on the BEERs list for urinary retention. Please continue to monitor for S/S of muscle spasms and PRN usage. 12. Nutrition/zinc deficiency: multivitamin 1T PO DAILYCM and zinc 220mg PO daily. Please continue to monitor. Assessment/Plan for indications treated with psychotropic medications: 1. Diabetic polyneuropathy: gabapentin 600mg PO TIDCM. Resident is using for diabetic polyneuropathy. GDR not appropriate. This is a BEERs criteria medication for falls. Please continue to monitor for confusion, falls and renal function. Medical chart and medication regimen reviewed. The following medication irregularities or issues were identified: *1. Atorvastatin 20mg PO QHS. Resident does not have a lipid panel in the chart. Please consider ordering a lipid panel now and then annually as clinically appropriate. Thanks. *2. Insulin glargine 65units SC QHS and insulin lispro 20units SC breakfast/lunch and 25units SC dinner. Resident dose not have a hemoglobin A1c in the chart. Please consider ordering a hemoglobin A1c now and then every 3 months as clinically appropriate. Thanks. Date of Note:: 02/28/22
[2022-02-28 11:50] LABS: Bedside Glucose 129 mg/dL (74-106)
[2022-02-28 15:40] VITALS: BP 129/78; PULSE 93; RESP 14; TEMP 36.5; O2SAT 91
--- NOTE | 2022-02-28 15:53 | CASEMGMT ---
Social Work See attached assessment for complete social work assessment details. This social worker palliative care met with patient and patient spouse, Shabana in room. Introduced self and social worker palliative care role. Patient agreeable to speak with this social worker palliative care and provide verbal permission for this social worker palliative care to speak openly. This social worker palliative care educated patient and patient spouse on Medicare benefits and encouraged family to call secondary insurance to inquire benefits in the event that patient will require treatment past 21 days on the TCU. Patient plans to discharge to home with spouse. Patient with history of home health care through [facility] and this would be preferred provider if patient needs home health again. Shabana is patient main contact and HCPOA. This social worker palliative care completed MOLST form and patient is a Full Code, this matches chart. All questions answered. Social work to continue to follow as needed. Mary POOLE, PRAKASH
[2022-02-28 16:55] LABS: Bedside Glucose 221 mg/dL (74-106)
[2022-02-28 17:28] VITALS: BP 137/75; PULSE 84
[2022-02-28] MEDS: Rivaroxaban 20 MG Tablet PO (17:28)
[2022-02-28] MEDS: Tamsulosin HCl 0.4 MG Capsule PO (17:28)
[2022-02-28] MEDS: Insulin Lispro 100 UNIT/ML INSULN.PEN 25 UNIT SC (17:33)
[2022-02-28] MEDS: Doxazosin 4 MG Tablet PO (20:22)
[2022-02-28] MEDS: MELATONIN 10 MG TABLET PO (20:23)
[2022-02-28] MEDS: Atorvastatin Calcium 20 MG Tablet PO (20:23)
[2022-02-28] MEDS: Insulin Glargine-YFGN 100 UNIT/ML Pen 65 UNIT SC (20:32)
[2022-02-28 20:56] LABS: Bedside Glucose 238 mg/dL (74-106)
[2022-02-28 22:44] VITALS: PULSE 75; RESP 18; O2SAT 93
[2022-03-01] MEDS: Furosemide 80 MG Tablet PO (05:44)
[2022-03-01 05:45] VITALS: BP 123/93; PULSE 90
[2022-03-01] MEDS: Metoprolol Tartrate 50 MG Tablet 75 MG PO ×2 (05:45→18:24)
[2022-03-01] MEDS: HYDROcodone Bitartrate/Apap 5/325 Tablet PO ×2 (05:49→20:43)
[2022-03-01] MEDS: Nystatin Powder 15gm Bottle 1 APPLIC TOPICAL ×2 (05:55→18:23)
[2022-03-01] MEDS: Menthol/Lanolin/Calamine/Znox 113 GM Tube 1 APPLIC TOPICAL ×2 (05:55→18:23)
[2022-03-01 06:35] LABS: Bedside Glucose 107 mg/dL (74-106)
--- NOTE | 2022-03-01 07:32 | NURSING ---
Dr. Araujo updated on Blood Sugar [address] Araujo give 5 units for morning dose.
[2022-03-01] MEDS: Insulin Lispro 100 UNIT/ML INSULN.PEN 20 UNIT SC ×2 (07:49→12:34)
[2022-03-01] MEDS: Multivitamins,Therapeutic Tablet 1 TABLET PO (07:49)
[2022-03-01] MEDS: Gabapentin 600 MG Tablet PO ×3 (07:50→18:22)
[2022-03-01 11:20] LABS: Bedside Glucose 190 mg/dL (74-106)
--- NOTE | 2022-03-01 12:12 | NURSING ---
Pt and upset about lunch tray and not receiving what was requested. Educated pt and that pt is on a consistent carb diet and kitchen may have to substitute being on prescribed diet. Pt and family did not understand and stated they will speak with the control inspector at the care plan meeting. Will update control inspector.
--- NOTE | 2022-03-01 13:05 | CASEMGMT ---
Social Work IDT met with patient and for care plan meeting. Discussed patient's progress in PT/OT/ST/SN. Explained Medicare benefit. Encouraged to contact secondary insurance to ensure copay coverage. The goal is for pt to return home with . Grandson assists at home as well. and pt expressed some concerns and frustrations thus far. SW provided active listening and verbal support. Validated feelings and recognized advocating for pt's well-being. Educated and pt to alleviate concerns. appreciative of support and explanations. Left communication to to speak with pt this evening about ongoing pain in left knee. Discussed discharge plans. and pt realistic to pt needing to return close to PLOF to return home safely. Both only want home as a plan. SW offered ongoing support and assistance with DC plans. ZULEMA GarciasW
[2022-03-01 15:28] VITALS: BP 127/71; PULSE 90; RESP 16; TEMP 36.4; O2SAT 95
[2022-03-01 16:30] LABS: Bedside Glucose 117 mg/dL (74-106)
--- NOTE | 2022-03-01 16:39 | RAD_ITS ---
STUDY: XR Knee 3 Views 03/01/2022 7:15 PM REASON FOR EXAM: Male, 66 years old. Pain TECHNIQUE: XR Knee 3 Views LEFT COMPARISON: 02/22/2022 FINDINGS: Total left knee arthroplasty. Normal visualized proximal tibia and fibula. Normal proximal tibiofibular articulation. Normal medial femorotibial compartment. Normal lateral femorotibial compartment. Normal patellofemoral articulation. The soft tissue structures are unremarkable. RAD/Knee 3 Views IMPRESSION: There are no acute findings. Electronically Signed: Raoul Maecdo MD at 19:16 EDT ,
[2022-03-01 17:00] LABS: Absolute Lymphocyte Count 2.32 X10^3/uL (0.83-4.51); Basophil# 0.12 X10^3/uL; Eosinophil# 0.39 X10^3/uL; Eosinophils% 3.2 % (0-5); Hematocrit 36.3 % (40-54); Hemoglobin 11.9 g/dL (13.0-16.5); Lymphocyte # 2.32 X10^3/ul (0.83-4.51); Lymphocyte % 19.1 % (19-41); Mean Corp Hgb Conc 32.8 g/dL (32-36); Mean Corpuscular Hgb 28.5 pg (27.0-32.0); Mean Corpuscular Volume 87.1 fL (80-94); Mean Platelet Vol. 9.1 fl (6.2-12.0); Monocyte# 1.18 X10^3/uL; Monocyte% 9.7 % (0-10); NRBC Flagged by Analyzer 0 % (0-5); Neutrophil # 8.03 X10^3/uL (2.7-7.7); Platelet Count 316 K/mm3 (150-450); RBC Distribution Width CV 12.5 % (11.6-14.6); RBC Distribution Width SD 39.8 fl (35.1-43.9); Red Blood Count 4.17 M/mm3 (4.6-6.2); White Blood Count 12.2 K/mm3 (4.4-11.0)
[2022-03-01 17:14] LABS: Erythrocyte Sedimentation Rate 77 mm/hr (0-20)
[2022-03-01 17:19] LABS: Anion Gap 7 (5-15); BUN 32 mg/dL (7-18); BUN/Creat Ratio 19.9 RATIO (10-20); Calcium,Total 9.1 mg/dL (8.5-10.1); Chloride 102 mmol/L (98-107); Creatinine, Serum 1.61 mg/dL (0.70-1.30); EST Glomerular Filtration Rate 46 mL/min (>60); Est Glom Filt Rate - Afr Amer 55 mL/min (>60); Estimated Creatinine Clearance 48.87 ml/min; Glucose 116 mg/dL (74-106); Sodium Level 135 mmol/L (136-145)
[2022-03-01 18:24] VITALS: BP 139/80; PULSE 100
[2022-03-01] MEDS: Insulin Lispro 100 UNIT/ML INSULN.PEN 25 UNIT SC (18:24)
[2022-03-01] MEDS: Tamsulosin HCl 0.4 MG Capsule PO (18:24)
[2022-03-01] MEDS: Rivaroxaban 20 MG Tablet PO (18:24)
[2022-03-01] MEDS: Senna/Docusate Sodium 1 Tablet 2 TABLET PO (18:25)
[2022-03-01 20:39] VITALS: BP 120/69; PULSE 84; RESP 18; O2SAT 93
[2022-03-01] MEDS: MELATONIN 10 MG TABLET PO (20:43)
[2022-03-01] MEDS: Doxazosin 4 MG Tablet PO (20:44)
[2022-03-01] MEDS: Atorvastatin Calcium 20 MG Tablet PO (20:44)
[2022-03-01 21:51] LABS: Bedside Glucose 100 mg/dL (74-106)
[2022-03-01] MEDS: Insulin Glargine-YFGN 100 UNIT/ML Pen 65 UNIT SC (21:55)
[2022-03-02] VITALS (7 sets, daily range): BP systolic 103–145; BP diastolic 61–80; PULSE 66–94; RESP 18; TEMP 36.3; O2SAT 91–93
[2022-03-02 02:21] LABS: Bedside Glucose 67 mg/dL (74-106)
--- NOTE | 2022-03-02 02:49 | NURSING ---
Patient given peanut butter crackers for bedtime snack w/ PM insulin. Re-checked sugar @0200, sugar 67, patient denies any symptoms. Given juice and snack, on re-check sugar 141.
[2022-03-02 03:05] LABS: Bedside Glucose 141 mg/dL (74-106)
[2022-03-02] MEDS: HYDROcodone Bitartrate/Apap 5/325 Tablet PO ×2 (06:15→18:34)
[2022-03-02] MEDS: Senna/Docusate Sodium 1 Tablet 2 TABLET PO ×2 (06:16→18:28)
[2022-03-02] MEDS: Furosemide 80 MG Tablet PO (06:16)
[2022-03-02] MEDS: Metoprolol Tartrate 50 MG Tablet 75 MG PO ×2 (06:16→18:28)
[2022-03-02] MEDS: Menthol/Lanolin/Calamine/Znox 113 GM Tube 1 APPLIC TOPICAL ×2 (06:17→21:14)
[2022-03-02] MEDS: Nystatin Powder 15gm Bottle 1 APPLIC TOPICAL ×2 (06:17→18:28)
[2022-03-02 06:31] LABS: Bedside Glucose 133 mg/dL (74-106)
[2022-03-02] MEDS: Insulin Lispro 100 UNIT/ML INSULN.PEN 20 UNIT SC ×3 (08:17→18:30)
[2022-03-02] MEDS: Multivitamins,Therapeutic Tablet 1 TABLET PO (08:17)
[2022-03-02] MEDS: Gabapentin 600 MG Tablet PO ×3 (09:12→18:28)
--- NOTE | 2022-03-02 10:05 | MDS.RN ---
Pain interview for BON 03/03/22 completed.
[2022-03-02 11:00] LABS: Bedside Glucose 166 mg/dL (74-106)
[2022-03-02 16:11] LABS: Bedside Glucose 120 mg/dL (74-106)
[2022-03-02] MEDS: Rivaroxaban 20 MG Tablet PO (18:27)
[2022-03-02] MEDS: Tamsulosin HCl 0.4 MG Capsule PO (18:29)
[2022-03-02] MEDS: MELATONIN 10 MG TABLET PO (21:16)
[2022-03-02] MEDS: Atorvastatin Calcium 20 MG Tablet PO (21:16)
[2022-03-02] MEDS: Insulin Glargine-YFGN 100 UNIT/ML Pen 50 UNIT SC (21:17)
[2022-03-02] MEDS: Doxazosin 4 MG Tablet PO (21:19)
[2022-03-02 21:35] LABS: Bedside Glucose 115 mg/dL (74-106)
[2022-03-03 05:47] VITALS: BP 121/68; PULSE 90
[2022-03-03] MEDS: Menthol/Lanolin/Calamine/Znox 113 GM Tube 1 APPLIC TOPICAL ×2 (05:53→17:27)
[2022-03-03] MEDS: Nystatin Powder 15gm Bottle 1 APPLIC TOPICAL ×2 (05:53→17:27)
[2022-03-03 05:54] VITALS: PULSE 90
[2022-03-03] MEDS: Senna/Docusate Sodium 1 Tablet 2 TABLET PO (05:54)
[2022-03-03] MEDS: Furosemide 80 MG Tablet PO (05:54)
[2022-03-03] MEDS: Metoprolol Tartrate 50 MG Tablet 75 MG PO ×2 (05:54→17:26)
[2022-03-03 06:35] LABS: Bedside Glucose 163 mg/dL (74-106)
--- NOTE | 2022-03-03 07:52 | NURSING ---
economics instructor updated RN last night that patient's CPAP tubing had been damaged. Per economics instructor and the patient the tubing had been caught under the wheel of the bed and was damaged. Went to room and looked at tubing and spoke with patient. Tubing was twisted and damaged, per patient there is a hole in the tubing but RN was unable to find hole. Asked him if he could attach the mask to the first line of tubing and could remove the second damaged line. He said he could, demonstrated for RN. Asked him if he had extra tubing at home that his could bring, he said he thought he did have some extra at home. Asked him if he was ok for tonight and he said he was. This AM patient was still wearing CPAP and rolled over quickly in bed which pulled the CPAP machine off the bedside table and it hit the floor. RN placed machine back on table, it appeared to be working normal. Patient said it better not be damaged because its a $9,000 machine. He then said, see, that's why I wanted that extra tubing. Do you see what I mean? Agreed with patient that it would be helpful to have extra tubing.
[2022-03-03] MEDS: Multivitamins,Therapeutic Tablet 1 TABLET PO (07:59)
[2022-03-03] MEDS: Insulin Lispro 100 UNIT/ML INSULN.PEN 20 UNIT SC ×3 (07:59→17:25)
[2022-03-03] MEDS: Gabapentin 600 MG Tablet PO ×3 (07:59→17:27)
[2022-03-03 09:18] VITALS: O2SAT 90
[2022-03-03 10:00] VITALS: PULSE 53; RESP 18
--- NOTE | 2022-03-03 10:07 | CASEMGMT ---
Social Work BIMS and PHQ-9 completed for MDS assessment. Qing Rascon, LABORER CUTTING TOOL BIOASSAYIST
--- NOTE | 2022-03-03 10:38 | PN_ITS ---
Subjective Subjective I was asked by nursing to evaluate this patient for persistent knee pain. They also report that he is sometimes confused. Afebrile VSS Maintaining oxygen saturation on RA of 90-91%. Discussed with Alecia from PT. Pain is limiting his ability to do therapy and she tells me that the knee is red and swollen. Medication list reviewed. 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 The chart was reviewed. A femur x-ray on 02/22/2022 showed a knee effusion. There was no periprosthetic fracture. There was no evidence of loosening of the knee replacement. He had another knee x-ray on 03/01/2022 that showed the total left knee arthroplasty with normal visualized proximal tibia and fibula. There was a normal medial femorotibial compartment and a normal lateral for femorotibial compartment. There was a normal patellofemoral articulation. Soft tissue structures are unremarkable. A CT scan of the left knee on 03/02/2022 showed a suprapatellar effusion with no acute fracture, no subluxation, normal alignment and no sclerotic or destructive changes. He had a CBC done on 03/01/2022 that showed a mildly elevated white blood cell count of 12.2, down from 18.6 on 02/22/2022. Hemoglobin is decreased at 11.9 and stable. ESR at that time was 77. The CRP was elevated at 47.4. Sodium was mildly decreased at 135 and potassium was 4.0. The BUN is 32 and the creatinine is 1.61 which is good for him..... He is known to have chronic renal failure stage IIIa. There is no uric acid on the chart. He denies any personal or family hx of gout but, he has CRF and he is on Lasix. Venous US negative for DVT and he is on Xarelto. He has a polar care and the knee is being iced. It hurts worse when he is standing and walking. His knee has hurting for a couple weeks and then last Sunday the L knee buckled and he fell. since the fall he has been unable to ambulate. He sees Dr. Dr. Wheeler for pain management. He has had back surgeries in the past. Medications include Vicodin, Gabapentin 600 mg 3 times daily, tizanidine and he is on all these medications at home. Objective Data Objective Data Vital Signs: Vital Signs Temp Pulse Resp BP Pulse Ox O2 Del Method O2 Flow Rate 97.3 F L 90 18 121/68 H 90 Room Air 2 03/02/22 14:45 03/03/22 05:54 03/02/22 21:23 03/03/22 05:47 03/03/22 09:18 03/03/22 09:18 02/28/22 22:44 Oxygen Flow Rate (L/min) 2 Oxygen Delivery Method Room Air Weight: 376 lb 3.2 oz Body Mass Index (BMI) 51.0 Intake & Output: Intake and Output for Last 24 Hours 03/01/22 03/02/22 03/03/22 23:59 23:59 23:59 Intake Total 600 / 600 960 / 960 Output Total 850 / 850 425 / 425 Balance -250 / -250 535 / 535 Lab / Micro Data Result Diagrams: 03/01/22 16:40 03/01/22 16:40 Labs: Laboratory Results - last 24 hr 03/02/22 10:42: POC Glucose 166 H 03/02/22 15:48: POC Glucose 120 H 03/02/22 21:14: POC Glucose 115 H 03/03/22 06:15: POC Glucose 163 H Physical Exam Const alert and oriented x3 Constitutional Narrative: Appears uncomfortable and he is restless in bed trying to get comfortable. General Appearance: cooperative and well developed Extremity Extremity Narrative: He has edema of both LE's and he has superficial varicosities. There is a scar on the Left knee from the remote TKR at [facility]. There is no erythema and the knee is not especially warm to touch. He has a suprapatellar effusion but there is no joint fluid. There are no openings in the skin. He does not have pain with light touch. He has no pain with pressure on the medial side of the knee but is does have pain with palpation of the the area proximal to the patella and with palpation of the R lateral knee. Assessment & Plan Assessment/Plan (1) Left knee pain: PLAN: CT of the left knee is unremarkable with the exception of a suprapatellar effusion. There is no erythema and no significant increased warmth to touch. There is no fracture from the recent fall. The joint prosthesis is intact and in good position. I suspect he has an exacerbation of arthritis but, gout is also a consideration. He is on the same pain regimen he was on at home prior to the fall. Venous US was negative for a DVT. Will continue the current drug regimen but, suspect the confusion could be related to medication. Will check a UA and if it is elevated will try treating for gout. Continue the ice. Add arthritis cream. He is not taking the [place] as often as he could and we may be better off scheduling the [place]. (2) Suprapatellar bursitis of left knee: (3) Confusion: PLAN: Likely medication induced. PLAN: Plan If no change in the pain with the above changes by Sunday or if he has a fever will consult ortho. The CT knee has a lot of interference from the prosthesis and does not get a good view of the ligaments. Charges/Coding Visit Charges Inpatient E&M: 11413 SNF Subs L2
[2022-03-03 12:10] LABS: Bedside Glucose 133 mg/dL (74-106)
[2022-03-03] MEDS: HYDROcodone Bitartrate/Apap 5/325 Tablet PO ×3 (13:44→23:04)
[2022-03-03 15:37] VITALS: BP 109/63; PULSE 93; RESP 18; TEMP 36.7; O2SAT 98
[2022-03-03 17:26] VITALS: PULSE 93
[2022-03-03] MEDS: Tamsulosin HCl 0.4 MG Capsule PO (17:26)
[2022-03-03] MEDS: Arthritis Pain Compound 60 CLICK TUBE TOPICAL (17:26)
[2022-03-03] MEDS: Rivaroxaban 20 MG Tablet PO (17:27)
--- NOTE | 2022-03-03 17:31 | NURSING ---
Respiratory therapy brought new tubing to unit for patients CPAP machine.
[2022-03-03] MEDS: MELATONIN 10 MG TABLET PO (20:55)
[2022-03-03] MEDS: Doxazosin 4 MG Tablet PO (20:55)
[2022-03-03] MEDS: Atorvastatin Calcium 20 MG Tablet PO (20:56)
--- NOTE | 2022-03-03 21:03 | NURSING ---
Patient upset at this nurse for having to administer HS medications. Education provided on importance of medication adherence. Patient voiced understanding.
[2022-03-03] MEDS: Insulin Glargine-YFGN 100 UNIT/ML Pen 50 UNIT SC (23:03)
[2022-03-03 23:30] LABS: Bedside Glucose 168 mg/dL (74-106)
[2022-03-04] MEDS: HYDROcodone Bitartrate/Apap 5/325 Tablet PO ×3 (06:16→17:45)
[2022-03-04 06:17] VITALS: PULSE 96
[2022-03-04] MEDS: Senna/Docusate Sodium 1 Tablet 2 TABLET PO (06:17)
[2022-03-04] MEDS: Metoprolol Tartrate 50 MG Tablet 75 MG PO ×2 (06:17→17:40)
[2022-03-04] MEDS: Nystatin Powder 15gm Bottle 1 APPLIC TOPICAL ×2 (06:19→18:35)
[2022-03-04] MEDS: Arthritis Pain Compound 60 CLICK TUBE TOPICAL ×2 (06:19→18:39)
[2022-03-04] MEDS: Furosemide 80 MG Tablet PO (06:20)
[2022-03-04 06:50] LABS: Bedside Glucose 146 mg/dL (74-106)
[2022-03-04 06:51] LABS: Absolute Lymphocyte Count 2.33 X10^3/uL (0.83-4.51); Absolute Neutrophil Count 9.4 X10^3/uL (2.0-7.7); Basophil# 0.09 X10^3/uL; Basophil% 0.7 % (0-1); Eosinophil# 0.37 X10^3/uL; Eosinophils% 2.7 % (0-5); Hematocrit 36.2 % (40-54); Hemoglobin 11.7 g/dL (13.0-16.5); Lymphocyte # 2.33 X10^3/ul (0.83-4.51); Lymphocyte % 17.3 % (19-41); Mean Corp Hgb Conc 32.3 g/dL (32-36); Mean Corpuscular Hgb 29.1 pg (27.0-32.0); Monocyte% 8.9 % (0-10); NRBC Flagged by Analyzer 0 % (0-5); Neutrophil # 9.37 X10^3/uL (2.7-7.7); Neutrophil % 69.5 % (47-70); Platelet Count 290 K/mm3 (150-450); RBC Distribution Width CV 12.6 % (11.6-14.6); RBC Distribution Width SD 41.6 fl (35.1-43.9); Red Blood Count 4.02 M/mm3 (4.6-6.2); White Blood Count 13.5 K/mm3 (4.4-11.0)
[2022-03-04 07:18] LABS: Anion Gap 6 (5-15); BUN 40 mg/dL (7-18); BUN/Creat Ratio 21.2 RATIO (10-20); Calcium,Total 9.4 mg/dL (8.5-10.1); Chloride 99 mmol/L (98-107); Creatinine, Serum 1.89 mg/dL (0.70-1.30); EST Glomerular Filtration Rate 38 mL/min (>60); Est Glom Filt Rate - Afr Amer 46 mL/min (>60); Estimated Creatinine Clearance 41.63 ml/min; Glucose 150 mg/dL (74-106); Potassium 4.9 mmol/L (3.5-5.1); Sodium Level 132 mmol/L (136-145)
[2022-03-04] MEDS: Gabapentin 600 MG Tablet PO ×3 (08:17→17:45)
[2022-03-04] MEDS: Insulin Lispro 100 UNIT/ML INSULN.PEN 20 UNIT SC ×3 (08:18→17:47)
[2022-03-04] MEDS: Multivitamins,Therapeutic Tablet 1 TABLET PO (08:19)
[2022-03-04] MEDS: Tuberculin,Purif.prot.deriv. 50 TU/ML Vial 0.1 ML ID (10:38)
[2022-03-04 11:01] LABS: Bedside Glucose 117 mg/dL (74-106)
[2022-03-04 11:05] LABS: Bedside Glucose 192 mg/dL (74-106)
[2022-03-04 13:33] LABS: Uric Acid 10.1 mg/dL (3.5-7.2)
--- NOTE | 2022-03-04 14:01 | PN_ITS ---
Progress Note Afebrile Vital signs stable All lab was personally reviewed. White blood cell count remains elevated at 13.5 but the differential is unremarkable and neutrophils are normal with no left shift. Sodium is mildly decreased at 132 and the BUN is 40 with a creatinine of 1.89 which is within his baseline. Creatinine clearance is 41.63. UA is 10.1. BS record was reviewed and the BS's are controlled. The pain is a little better with the scheduled [place] but, he is still c/o pain. When I palpate the lateral L knee now he has no pain and he did yesterday. Still with even light palpation of the suprapatellar bursa. minimal erythema. + effusion. Impressions 1. suprapatellar bursitis - suspect due to gout. 2. Hyperuricemia - likely related to CRF and diuretic. 3. Hyponatremia. Plan 1. Prednisone 20 mg daily X 4 days. 2. Colchicine 1.2 mg now and then 0.6 mg in 1 hour then DC 3. Add SSI with meals because the Prednisone will increase the BS's 4. After the acute gouty attack resolves will need therapy to decrease the uric to 6 or below. 5. Check a urine chloride 6. Hold the Lasix for 2 days Visit Charges Inpatient E&M: 57200 SNF Subs L2
[2022-03-04] MEDS: predniSONE 20 MG Tablet PO (14:44)
[2022-03-04] MEDS: Colchicine 0.6 MG TABLET 1.2 MG PO (14:45)
[2022-03-04 15:19] LABS: Hemoglobin A1c 7.2 % (3.8-5.6)
[2022-03-04 15:33] VITALS: BP 111/56; PULSE 91; RESP 18; TEMP 36.7; O2SAT 93
[2022-03-04 15:44] LABS: Urine Chloride 37 mmol/L (Not Establ.)
[2022-03-04] MEDS: Colchicine 0.6 MG TABLET PO (15:46)
[2022-03-04 17:31] LABS: Bedside Glucose 108 mg/dL (74-106)
[2022-03-04 17:40] VITALS: BP 111/56; PULSE 91
[2022-03-04] MEDS: Rivaroxaban 20 MG Tablet PO (17:41)
[2022-03-04] MEDS: Tamsulosin HCl 0.4 MG Capsule PO (17:41)
[2022-03-04] MEDS: Menthol/Lanolin/Calamine/Znox 113 GM Tube 1 APPLIC TOPICAL (18:34)
[2022-03-04 21:24] VITALS: BP 124/58; PULSE 77
[2022-03-04] MEDS: Atorvastatin Calcium 20 MG Tablet PO (21:30)
[2022-03-04] MEDS: Doxazosin 4 MG Tablet PO (21:30)
[2022-03-04] MEDS: MELATONIN 10 MG TABLET PO (21:30)
[2022-03-04] MEDS: Insulin Glargine-YFGN 100 UNIT/ML Pen 50 UNIT SC (21:31)
[2022-03-04 21:40] LABS: Bedside Glucose 250 mg/dL (74-106)
[2022-03-05] MEDS: HYDROcodone Bitartrate/Apap 5/325 Tablet PO ×3 (00:12→11:57)
[2022-03-05 06:30] LABS: Bedside Glucose 196 mg/dL (74-106)
[2022-03-05 06:49] VITALS: BP 136/74; PULSE 75
[2022-03-05] MEDS: Gabapentin 600 MG Tablet PO ×3 (06:49→17:32)
[2022-03-05] MEDS: Metoprolol Tartrate 50 MG Tablet 75 MG PO ×2 (06:49→17:28)
[2022-03-05] MEDS: Arthritis Pain Compound 60 CLICK TUBE TOPICAL ×2 (06:50→17:34)
[2022-03-05] MEDS: Menthol/Lanolin/Calamine/Znox 113 GM Tube 1 APPLIC TOPICAL ×2 (06:51→17:28)
[2022-03-05] MEDS: Senna/Docusate Sodium 1 Tablet 2 TABLET PO (06:52)
[2022-03-05] MEDS: Nystatin Powder 15gm Bottle 1 APPLIC TOPICAL ×2 (06:52→21:53)
[2022-03-05] MEDS: Insulin Lispro 100 UNIT/ML INSULN.PEN SC ×3 (07:49→17:26)
[2022-03-05] MEDS: Insulin Lispro 100 UNIT/ML INSULN.PEN 20 UNIT SC ×3 (07:51→17:26)
[2022-03-05] MEDS: predniSONE 20 MG Tablet PO (07:52)
[2022-03-05] MEDS: Multivitamins,Therapeutic Tablet 1 TABLET PO (07:52)
[2022-03-05 10:45] VITALS: PULSE 77; RESP 18; O2SAT 94
[2022-03-05 11:40] LABS: Bedside Glucose 194 mg/dL (74-106)
--- NOTE | 2022-03-05 12:15 | PCM.PROGNOTE ---
Subjective Subjective Afebrile VSS Maintaining appropriate oxygen saturation on RA Oral intake is adequate Discussed with nursing - no problems that need addressed Medication list reviewed. Blood sugar record was reviewed. Blood sugars are elevated from what they were but no blood sugars greater than 250. We will continue sliding scale insulin while he is on prednisone. Reinier tells me that his pain is better today. He rates it as a 6-7 rather than 8-10. He denies N/V/Abd pain. He had some confusion last night and did not know where he was. He was incontinent in the bed and this was very upsetting to him. He is oriented and appropriate when I am talking to him today. Objective Data Objective Data Vital Signs: Vital Signs Temp Pulse Resp BP Pulse Ox O2 Del Method O2 Flow Rate 98.0 F 75 18 136/74 H 93 Room Air 2 03/04/22 15:33 03/05/22 06:49 03/04/22 15:33 03/05/22 06:49 03/04/22 15:33 03/05/22 07:32 02/28/22 22:44 Oxygen Flow Rate (L/min) 2 Oxygen Delivery Method Room Air Weight: 376 lb 3.2 oz Body Mass Index (BMI) 51.0 Intake & Output: Intake and Output for Last 24 Hours 03/03/22 03/04/22 03/05/22 23:59 23:59 23:59 Intake Total 600 / 600 1940 / 1940 480 / 480 Output Total 1470 / 1470 Balance 600 / 600 470 / 470 480 / 480 Lab / Micro Data Result Diagrams: 03/04/22 06:30 03/04/22 06:30 Labs: Laboratory Results - last 24 hr 03/04/22 06:30: Uric Acid 10.1 H 03/04/22 06:30: Hemoglobin A1c 7.2 H 03/04/22 15:20: Urine Chloride 37 03/04/22 17:11: POC Glucose 108 H 03/04/22 21:19: POC Glucose 250 H 03/05/22 06:12: POC Glucose 196 H 03/05/22 11:13: POC Glucose 194 H Micro: Microbiology 03/03/22 14:56 Nasal Secretion SARS-CoV-2 Antigen (Rapid) - Final Physical Exam Const alert, oriented x3 and no apparent distress Constitutional Narrative: no lopnger fidgety or restless in the bed trying to get comfortable. General Appearance: cooperative Extremity Extremity Narrative: Compression applied to both legs with 6 CARMEN wraps. The effusion in the L suprapatellar bursa is down significantly today. There is no erythema and no warmth to touch. He had no pain with palpation of the suprapatellar area today. No pain with passive movement of the joint today. Assessment & Plan Assessment/Plan (1) Acute gouty arthritis: PLAN: Continue the Prednisone 20 mg daily X 4 days. Colchicine 0.6 mg today. Recheck a BMP in the AM. Get him up in a chair today. (2) Hyperuricemia: PLAN: Will need to consider starting a uric acid lowering medication after the acute attack has resolved. It is likely with CRF and chronic diuretic usage that it will recur. Low purine diet and consult the women's health care nurse practitioner for education. (3) Suprapatellar bursitis of left knee: PLAN: due to gout (4) Diabetes mellitus: PLAN: Blood sugars are elevated but not horrible.....continue the SSI while he is on Prednisone. Charges/Coding Visit Charges Inpatient E&M: 80966 SNF Init L1
[2022-03-05] MEDS: Colchicine 0.6 MG TABLET PO (13:52)
[2022-03-05 16:00] VITALS: BP 134/52; PULSE 73; RESP 21; TEMP 35.9; O2SAT 95
[2022-03-05 16:25] LABS: Bedside Glucose 207 mg/dL (74-106)
[2022-03-05 17:28] VITALS: BP 134/52; PULSE 73
[2022-03-05] MEDS: Tamsulosin HCl 0.4 MG Capsule PO (17:28)
[2022-03-05] MEDS: Rivaroxaban 20 MG Tablet PO (17:28)
[2022-03-05 21:26] LABS: Bedside Glucose 184 mg/dL (74-106)
[2022-03-05] MEDS: Doxazosin 4 MG Tablet PO (21:50)
[2022-03-05] MEDS: MELATONIN 10 MG TABLET PO (21:50)
[2022-03-05] MEDS: Atorvastatin Calcium 20 MG Tablet PO (21:50)
[2022-03-05] MEDS: Insulin Glargine-YFGN 100 UNIT/ML Pen 50 UNIT SC (21:51)
[2022-03-05 21:55] VITALS: BP 124/72; PULSE 69
--- NOTE | 2022-03-05 22:03 | NURSING ---
Declines HS snack. Reconnected to CPAP w/ O2 bleed-in at 2 lpm. Call light w/ in reach.
[2022-03-06] MEDS: Senna/Docusate Sodium 1 Tablet 2 TABLET PO (06:11)
[2022-03-06 06:13] VITALS: BP 144/83; PULSE 84
[2022-03-06] MEDS: Metoprolol Tartrate 50 MG Tablet 75 MG PO ×2 (06:13→18:05)
[2022-03-06] MEDS: Arthritis Pain Compound 60 CLICK TUBE TOPICAL ×3 (06:14→21:50)
[2022-03-06] MEDS: Nystatin Powder 15gm Bottle 1 APPLIC TOPICAL ×2 (06:14→18:09)
[2022-03-06] MEDS: Menthol/Lanolin/Calamine/Znox 113 GM Tube 1 APPLIC TOPICAL ×2 (06:15→18:09)
[2022-03-06 06:16] LABS: Bedside Glucose 161 mg/dL (74-106)
--- NOTE | 2022-03-06 06:28 | NURSING ---
Communication sent to pharmacy for Zinc. No dose in med box or omnicell.
--- NOTE | 2022-03-06 06:32 | NURSING ---
GLASS CALIBRATOR reports pt completed an unassisted transfer this am. Questioned pt and he verbalizes he did get up to the recliner chair and back to bed without assistance. Instructed pt he to call for help and is not to be up on his own without therapy clearing him first. He verbalizes understanding. Reports left knee pain at 9/10. Offered Thorofare and refuses at this time. Will continue to monitor. Positioned in bed for comfort. Call light w/ in reach.
[2022-03-06] MEDS: Insulin Lispro 100 UNIT/ML INSULN.PEN 20 UNIT SC ×3 (08:06→18:00)
[2022-03-06] MEDS: Insulin Lispro 100 UNIT/ML INSULN.PEN SC ×3 (08:07→17:59)
[2022-03-06] MEDS: predniSONE 20 MG Tablet PO (08:07)
[2022-03-06] MEDS: Multivitamins,Therapeutic Tablet 1 TABLET PO (08:07)
[2022-03-06] MEDS: Gabapentin 600 MG Tablet PO ×3 (08:11→18:01)
[2022-03-06 08:14] VITALS: O2SAT 94
[2022-03-06] MEDS: HYDROcodone Bitartrate/Apap 5/325 Tablet PO (10:03)
[2022-03-06 11:06] LABS: Anion Gap 9 (5-15); BUN 40 mg/dL (7-18); Calcium,Total 9.5 mg/dL (8.5-10.1); Chloride 101 mmol/L (98-107); Creatinine, Serum 1.43 mg/dL (0.70-1.30); EST Glomerular Filtration Rate 52 mL/min (>60); Est Glom Filt Rate - Afr Amer 63 mL/min (>60); Estimated Creatinine Clearance 55.02 ml/min; Glucose 176 mg/dL (74-106); Potassium 4.3 mmol/L (3.5-5.1); Sodium Level 134 mmol/L (136-145)
[2022-03-06 11:26] LABS: Bedside Glucose 164 mg/dL (74-106)
[2022-03-06] MEDS: traMADol 50 MG Tablet PO (13:43)
[2022-03-06 14:07] VITALS: BP 131/53; PULSE 74; RESP 20; TEMP 36.2; O2SAT 96
--- NOTE | 2022-03-06 15:39 | WOUNDNOTE ---
wound photo: right heel
[2022-03-06 16:30] LABS: Bedside Glucose 275 mg/dL (74-106)
--- NOTE | 2022-03-06 17:58 | PN_ITS ---
Progress Note Reinier tells me that his Left knee is now feeling better. He is afebrile and vital signs are stable All lab was personally reviewed. Sodium is 134 today and the potassium is 4.3. BUN is stable at 40 and his creatinine is now down to 1.43. Physical Exam Extremity Extremity Narrative: He is now able to easily lift the left leg off the bed and can flex it with no significant pain. There is no erythema and no openings in the skin. There is still a mild increase in the warmth to touch. The suprapatellar swelling is down from a few days ago. Assessment & Plan Assessment/Plan (1) Acute gouty arthritis: PLAN: Treated with Prednisone 20 mg for 4 days......today is day #3. Received a total of 4 dose of Colchicine and creat is stable. (2) Hyperuricemia: PLAN: UA is 10.1. This is likely due to CRF Plus Lasix. Needs to stay on Lasix. He will need chronic medication to lower the URic acid to 6 or below to prevent additional gouty attacks. CAn not start this until the acute attack has completely resolved and may need to take a small dose of Prednisone daily to prevent an exacerbation while starting Allopurinol. Avoid chronic colchicine due to the CRF. (3) Hyponatremia: PLAN: The urine chloride is 37 which is not consistent with sodium depletion in pts on diuretics. Suspect SIADH due to pain. Sodium is improving no further workup needed at this time. Visit Charges Inpatient E&M: [address] [facility] Subs L1
[2022-03-06] MEDS: Rivaroxaban 20 MG Tablet PO (18:01)
[2022-03-06] MEDS: Tamsulosin HCl 0.4 MG Capsule PO (18:02)
[2022-03-06 18:05] VITALS: BP 139/85; PULSE 83
[2022-03-06 21:00] VITALS: O2SAT 97
[2022-03-06 21:41] LABS: Bedside Glucose 197 mg/dL (74-106)
[2022-03-06] MEDS: Atorvastatin Calcium 20 MG Tablet PO (21:53)
[2022-03-06] MEDS: MELATONIN 10 MG TABLET PO (21:53)
[2022-03-06] MEDS: Doxazosin 4 MG Tablet PO (21:53)
[2022-03-06] MEDS: Insulin Glargine-YFGN 100 UNIT/ML Pen 50 UNIT SC (21:56)
[2022-03-07] MEDS: Menthol/Lanolin/Calamine/Znox 113 GM Tube 1 APPLIC TOPICAL ×2 (05:14→17:43)
[2022-03-07] MEDS: Arthritis Pain Compound 60 CLICK TUBE TOPICAL ×3 (05:14→21:02)
[2022-03-07] MEDS: Nystatin Powder 15gm Bottle 1 APPLIC TOPICAL ×2 (05:14→17:43)
[2022-03-07] MEDS: Senna/Docusate Sodium 1 Tablet 2 TABLET PO (05:15)
[2022-03-07 05:16] VITALS: BP 145/90; PULSE 75
[2022-03-07] MEDS: Metoprolol Tartrate 50 MG Tablet 75 MG PO ×2 (05:16→17:38)
[2022-03-07] MEDS: Furosemide 80 MG Tablet PO (05:16)
[2022-03-07 06:30] LABS: Bedside Glucose 160 mg/dL (74-106)
[2022-03-07 06:56] VITALS: O2SAT 92
--- NOTE | 2022-03-07 06:56 | CPS ---
2L bled into cpap HS
[2022-03-07] MEDS: Gabapentin 600 MG Tablet PO ×3 (07:59→17:42)
[2022-03-07] MEDS: Multivitamins,Therapeutic Tablet 1 TABLET PO (08:00)
[2022-03-07] MEDS: Insulin Lispro 100 UNIT/ML INSULN.PEN 20 UNIT SC ×3 (08:00→17:36)
[2022-03-07] MEDS: Insulin Lispro 100 UNIT/ML INSULN.PEN SC ×3 (08:00→17:36)
[2022-03-07] MEDS: predniSONE 20 MG Tablet PO (08:01)
[2022-03-07 11:11] LABS: Bedside Glucose 205 mg/dL (74-106)
[2022-03-07] MEDS: traMADol 50 MG Tablet PO (14:15)
--- NOTE | 2022-03-07 14:37 | CONS.ORTHO ---
HPI Consult Data Date of Consult: 03/07/22 HPI Narrative HPI Narrative: TRINI MEJIAS, is a 66 M who is being consulted on for severe left knee pain with elevated WBC count. Patient originally presented to the ED on 02/22/2022 for left lower leg pain, weakness and swelling. Patient states prior to presenting to the ED he was seen by the [facility] in [place] who did a Doppler which was negative and they placed him on antibiotics for possible cellulitis. Patient did not have any improvement on antibiotics and states that he was having difficulty ambulating the 4 steps to get into his house on 02/22/2022. Patient's states that he collapsed from pain while trying to ambulate the last stair into their home. He states when he fell he does not think that he fell directly onto his left knee. His and grandson called the EMS who brought him to ED. His states he has had some confusion twice where he woke up and was unsure where he was recently. She and he both deny any other events where he was confused prior or since. From the ED he was admitted to the [facility] for further evaluation. His states they have done left knee, femur, chest, tibia/fibula x-rays and CT scan of his brain, abdomen/pelvis and left knee since being in the hospital. She states there were no abnormal findings besides a joint effusion. He has been having a formal physical therapy and occupational therapy. Patient states this is going well and over the past few days has not increased his pain remarkably. He was admitted to the TCU on 02/24/2022 for physical deconditioning. He does have a history of a total knee arthroplasty on the left knee. Patient states this was done by the [facility] in 2013 and he has had no recent issues with this. Denies prior gout attacks. Uric acid level on 03/04/2022 was 10.1 mg/dL. Therefore, patient states he has been taking prednisone 20 mg daily for the last 3 days and he was also placed on colchicine for a presumed gout attack. Today, patient denies any shortness of breath, chest pains, nausea, vomiting, fever or chills. He states his knee pain today is mostly felt around the patella. He states that yesterday and today have both been good days and he has had minimal pains. He states he did have some pain today with ambulation with physical therapy and this has resolved upon resting. He has been icing his knee. Bilateral lower extremities are wrapped in Miguelangel wraps due to lymphedema. Patient states that he does not have any open wounds that he is aware of on bilateral lower extremities. Medical history significant for chronic anemia, chronic kidney disease stage III, morbid obesity, hypertension, hyperlipidemia, obstructive sleep apnea, diabetes mellitus type 2, diabetic polyneuropathy, benign prostatic hyperplasia, history of a severe pulmonary embolism requiring thrombectomy and pericardial window/drainage on Xarelto, chronic lymphedema bilaterally. [facility] Medical History (Updated 03/06/22 @ 18:[address] Corry Grigsby, DO) BPH (benign prostatic hyperplasia) Diabetes mellitus Dyslipidemia Former tobacco use HTN (hypertension) Morbid obesity GRETCHEN treated with BiPAP VTE (venous thromboembolism) Home Medications tizanidine 4 mg tablet (Zanaflex) 4 mg PO Q8H PRN Pain 12/15/13 [History Last Taken 11/29/15 10:00 4 MG] atorvastatin 20 mg tablet 20 mg PO QHS cholesterol 08/27/15 [History Last Taken 02/21/22] furosemide 40 mg tablet 80 mg PO DAILY diuretic 08/27/15 [History Last Taken 02/22/22] insulin glargine 100 unit/mL (3 mL) subcutaneous pen (Lantus Solostar U-100 Insulin) 65 units subcut QHS diabetes 08/27/15 [History Last Taken 02/21/22] multivitamin with folic acid 400 mcg tablet (Thera) 1 tab PO DAILY supplement 10/18/15 [History Last Taken 02/22/22] metoprolol tartrate 25 mg tablet 75 mg PO BID blood pressure 03/23/16 [History Last Taken 02/22/22] rivaroxaban 20 mg tablet (Xarelto) 20 mg PO DINNER blood thinner 03/23/16 [History Last Taken 02/21/22] aspirin 81 mg chewable tablet 81 mg PO DAILY heart health 04/03/20 [History Last Taken 02/22/22] doxazosin 4 mg tablet 4 mg PO QHS blood pressure 04/03/20 [History Last Taken 02/21/22] albuterol sulfate 90 mcg/actuation aerosol inhaler 2 inh inhalation Q6H PRN PRN SOB 02/22/22 [History Last Taken Unknown] amlodipine 10 mg tablet 1 tab PO DAILY hypertension 02/22/22 [History Last Taken 02/22/22] zinc 50 mg tablet 50 mg PO DAILY supplement 02/22/22 [History Last Taken 02/22/22] insulin lispro 100 unit/mL subcutaneous pen 20 unit subcut BREAKFAST diabetes 02/23/22 [History Last Taken 02/22/22] insulin lispro 100 unit/mL subcutaneous pen 20 unit subcut LUNCH diabetes 02/23/22 [History Last Taken 02/22/22] insulin lispro 100 unit/mL subcutaneous pen 25 unit subcut DINNER diabetes 02/23/22 [History Last Taken Unknown] acetaminophen 325 mg tablet (Tylenol) 650 mg PO Q4H PRN PRN Fever, pain 1-10 #0 tabs 02/24/22 [Rx Last Taken Unknown] gabapentin 600 mg tablet 600 mg PO TIDCM Nerve Pain 02/24/22 [History Last Taken Unknown] hydrocodone-acetaminophen 5-325mg 5mg-325mg 2 tab PO Q6H PRN PRN Pain Score 1-1010 1 day #4 tabs 02/24/22 [Rx Last Taken Unknown] insulin lispro 100 unit/mL subcutaneous pen (Humalog KwikPen (U-100) Insulin) See Protocol subcut ACHS Daibetes 02/24/22 [History Last Taken Unknown] melatonin 3 mg tablet 3 mg PO QHS PRN PRN Insomnia #0 tabs 02/24/22 [Rx Last Taken Unknown] Allergy/AdvReac Type Severity Reaction Status Date / Time Penicillins Allergy Unknown Hives Verified 02/22/22 20:03 erythromycin base AdvReac Nausea Verified 02/22/22 20:03 [Erythromycin Base] Family History Mother Diabetes Heart disease Coagulopathy Father Heart disease CVA (cerebral vascular accident) Parkinsons disease Surgical History (Updated 03/07/22 @ 17:17 by JONATHAN Enciso) History of total knee arthroplasty History of vascular surgery Hx of laminectomy Hx of total knee replacement Status post creation of pericardial window Social History household members: spouse Smoking Status: Former smoker how long ago did patient quit smoking: Quit 1994, smoked 1 ppd since age 15. alcohol intake: never substance use type: does not use ROS Constitutional Constitutional: Denies chills or fever(s) Gastrointestinal Gastrointestinal: Denies nausea or vomiting Musculoskeletal Musculoskeletal: Reports arthralgias, difficulty walking and joint swelling; Denies numbness, radiating pain into limb or tingling Integumentary Integumentary: Denies rash Neurologic Neurologic: Denies headache(s) Vital Signs Vital Signs Vital Signs: 03/06/22 18:05 03/06/22 21:00 03/06/22 21:00 Pulse Rate 83 Pulse Rhythm Regular Pulse Strength Weak (1+) Normal (2+) Respiratory Effort Normal Non-Labored Respiratory Depth Normal Respiratory Pattern Normal Blood Pressure 139/85 H Pulse Ox 97 Oxygen Delivery Method Room Air Oxygen Flow Rate (L/min) 03/07/22 05:16 03/07/22 06:56 03/07/22 08:08 Pulse Rate 75 Pulse Rhythm Regular Pulse Strength Normal (2+) Respiratory Effort Normal Non-Labored Respiratory Depth Normal Respiratory Pattern Normal Blood Pressure 145/90 H Pulse Ox 92 Oxygen Delivery Method Nasal Cannula Room Air Oxygen Flow Rate (L/min) 2 Weight Weight: 351 lb 3.2 oz Body Mass Index (BMI) 51.0 Physical Exam Const alert and oriented x3 General Appearance: cooperative Extremity Extremity Narrative: Upon inspection of left knee there is no evident erythema, ecchymosis or open wounds. Patient does have evident scar from prior total knee arthroplasty. 1-2+ joint effusion, mild swelling of the left knee compared to the right knee. No signs of infection, very slight difference in warmth from left knee to right knee. Left knee is slightly warmer to touch. Patient's bilateral lower extremities are wrapped in Miguelangel wraps. Patient has decreased sensation to light touch from mid tibia through entire foot. Patient states this is normal for him and it is noted bilaterally. Palpable pedal pulses. Patient is able to plantarflex, dorsiflex and wiggle toes. Compartments soft bilaterally. Negative Homans. Patient is lacking 5 to 10 degrees of flexion compared to right knee, suspect this is due to swelling and joint effusion. Patient does have minimal pain with flexion, but not extension. Full extension noted bilaterally. No swelling noted of left thigh compared to right thigh. Minimal tenderness to palpation anywhere in the left knee. Lab / Micro Data Result Diagrams: 03/07/22 15:35 03/06/22 10:36 Labs: Laboratory Results - last 24 hr 03/06/22 16:05: POC Glucose 275 H 03/06/22 21:22: POC Glucose 197 H 03/07/22 06:10: POC Glucose 160 H 03/07/22 10:48: POC Glucose 205 H Assessment & Plan Assessment/Plan (1) Left knee pain: (2) History of total knee arthroplasty: (3) Hyperuricemia: (4) Body mass index (BMI) greater than 50: PLAN: Plan Patient was consulted on for left knee pain and elevated white blood count. Reviewed prior documentation and recent imaging of left knee. Reviewed imaging with patient and his . Discussed there is an evident joint effusion and that there is good implant positioning and interfaces with no concerning signs. Discussed with the patient and his that it is possible that he had a gout attack which caused the acute increase in left knee pain. Patient states he is doing well overall and feels he has been getting a lot better over the past few days. Last CBC with differential was ordered on 03/04/2022 and white blood cell count was 13.5 K/mm3. Last ESR and CRP were ordered on 03/01/2022, last ESR was 77 mm/hr and last CRP was 47.4 mg/L. Will order CBC with differential, ESR and CRP. Depending on these results possibly will aspirate the joint to look for infection. Will await results of blood work before making further decisions. Continue current gout medication regimen. Continue OT and PT. Patient and his 's questions were answered. They are in agreement of the plan. Charges/Coding Visit Charges Office Visits / Consults: 25553 IP Consult L3
[2022-03-07 14:47] VITALS: BP 139/68; PULSE 80; RESP 18; TEMP 36.6; O2SAT 93
[2022-03-07 15:46] LABS: Absolute Lymphocyte Count 1.33 X10^3/uL (0.83-4.51); Absolute Neutrophil Count 11.1 X10^3/uL (2.0-7.7); Basophil# 0.03 X10^3/uL; Basophil% 0.2 % (0-1); Lymphocyte # 1.33 X10^3/ul (0.83-4.51); Lymphocyte % 10.1 % (19-41); Mean Corp Hgb Conc 32.4 g/dL (32-36); Mean Corpuscular Hgb 28.4 pg (27.0-32.0); Mean Corpuscular Volume 87.7 fL (80-94); Monocyte# 0.56 X10^3/uL; Monocyte% 4.3 % (0-10); NRBC Flagged by Analyzer 0 % (0-5); Neutrophil # 11.12 X10^3/uL (2.7-7.7); Neutrophil % 84.6 % (47-70); Platelet Count 332 K/mm3 (150-450); RBC Distribution Width CV 12.2 % (11.6-14.6); RBC Distribution Width SD 39.1 fl (35.1-43.9); Red Blood Count 4.22 M/mm3 (4.6-6.2); White Blood Count 13.1 K/mm3 (4.4-11.0)
[2022-03-07 16:01] LABS: Erythrocyte Sedimentation Rate 68 mm/hr (0-20)
[2022-03-07 16:25] LABS: Bedside Glucose 233 mg/dL (74-106)
[2022-03-07] MEDS: Rivaroxaban 20 MG Tablet PO (17:37)
[2022-03-07] MEDS: Tamsulosin HCl 0.4 MG Capsule PO (17:37)
[2022-03-07 17:38] VITALS: PULSE 80
--- NOTE | 2022-03-07 17:45 | NURSING ---
Farhana CASTILLO in today to assess pt, labs ordered and possible knee aspiration to take place tomorrow depending on labs results.
[2022-03-07] MEDS: MELATONIN 10 MG TABLET PO (21:01)
[2022-03-07] MEDS: Atorvastatin Calcium 20 MG Tablet PO (21:01)
[2022-03-07] MEDS: Doxazosin 4 MG Tablet PO (21:01)
[2022-03-07] MEDS: tiZANidine HCl 2 MG Tablet 4 MG PO (21:01)
[2022-03-07 21:02] VITALS: BP 145/91; PULSE 74
[2022-03-07] MEDS: Insulin Glargine-YFGN 100 UNIT/ML Pen 50 UNIT SC (21:22)
[2022-03-07 21:41] LABS: Bedside Glucose 109 mg/dL (74-106)
[2022-03-08] MEDS: traMADol 50 MG Tablet PO ×3 (03:07→18:07)
[2022-03-08 06:36] LABS: Bedside Glucose 134 mg/dL (74-106)
[2022-03-08] MEDS: Furosemide 80 MG Tablet PO (06:44)
[2022-03-08 06:45] VITALS: BP 142/90; PULSE 82
[2022-03-08] MEDS: Metoprolol Tartrate 50 MG Tablet 75 MG PO ×2 (06:45→17:57)
[2022-03-08] MEDS: Senna/Docusate Sodium 1 Tablet 2 TABLET PO (06:45)
[2022-03-08] MEDS: Arthritis Pain Compound 60 CLICK TUBE TOPICAL ×3 (06:47→21:21)
[2022-03-08] MEDS: Menthol/Lanolin/Calamine/Znox 113 GM Tube 1 APPLIC TOPICAL (06:52)
[2022-03-08] MEDS: Nystatin Powder 15gm Bottle 1 APPLIC TOPICAL ×2 (06:53→17:57)
[2022-03-08] MEDS: Multivitamins,Therapeutic Tablet 1 TABLET PO (07:41)
[2022-03-08] MEDS: Gabapentin 600 MG Tablet PO ×3 (07:41→18:07)
[2022-03-08] MEDS: Insulin Lispro 100 UNIT/ML INSULN.PEN 20 UNIT SC ×3 (07:41→17:56)
[2022-03-08 11:40] LABS: Bedside Glucose 162 mg/dL (74-106)
[2022-03-08] MEDS: Insulin Lispro 100 UNIT/ML INSULN.PEN SC (11:49)
--- NOTE | 2022-03-08 13:09 | NURSING ---
Aspiration of Left Knee completed by Dr. Guerrero. Patient tolerated procedure overall well. Denies pain, if anything said that he has relief from pressure on Knee. Synovial fluid sent down to the lab for further testing.
[2022-03-08 13:14] LABS: Synovial Fld Mononuclear WBC # 0.028 10^3/ul; Synovial Fld Mononuclear WBC % 5.6 %; Synovial Fld Polynuclear WBC # 0.475 10^3/uL; Synovial Fld Polynuclear WBC % 94.4 %
[2022-03-08 14:01] LABS: AUTO B FLUID DILUENT BKGD CT WBC <0.1 RBC <0.01 (W<.1,R<.01); Appearance /Synovial Fluid Turbid (CLEAR); Color / Synovial Fluid Red (Pale Yellow); RBC /Synovial Fluid 0.051 10^6/uL (0); Source / Synovial Fluid LFT KNEE; Source- Body Fluid SYNOVIAL; Viscosity / Synovial Fluid Mod. Viscous (HIGH)
[2022-03-08 14:20] LABS: Lymph 1 %; Neutrophil 99 % (0-25)
--- NOTE | 2022-03-08 14:35 | PN.ORTHO_ITS ---
Subjective Subjective Seen and examined discussed and reviewed consultation with Farhana mancilla from yesterday 03/07/2022 agree with her note. Objective Data Objective Data Vital Signs: Vital Signs Temp Pulse Resp BP Pulse Ox O2 Del Method O2 Flow Rate 97.8 F 82 18 142/90 H 93 Room Air 2 03/07/22 14:47 03/08/22 06:45 03/07/22 14:47 03/08/22 06:45 03/07/22 14:47 03/07/22 14:47 03/07/22 06:56 Oxygen Flow Rate (L/min) 2 Oxygen Delivery Method Room Air Weight: 351 lb 3.2 oz Body Mass Index (BMI) 51.0 Intake & Output: Intake and Output for Last 24 Hours 03/06/22 03/07/22 03/08/22 23:59 23:59 23:59 Intake Total 720 / 720 1200 / 1200 480 / 480 Output Total 600 / 600 300 / 300 Balance 120 / 120 1200 / 1200 180 / 180 Lab / Micro Data Result Diagrams: 03/07/22 15:35 03/06/22 10:36 Labs: Laboratory Results - last 24 hr 03/07/22 15:35: WBC 13.1 H, RBC 4.22 L, Hgb 12.0 L, Hct 37.0 L, MCV 87.7, MCH 28.4, MCHC 32.4, RDW Std Deviation 39.1, RDW Coeff of Jak 12.2, Plt Count 332, MPV 9.0, Immature Gran % (Auto) 0.800, Neut % (Auto) 84.6 H, Lymph % (Auto) 10.1 L, [place] % (Auto) 4.3, Eos % (Auto) 0.0, Baso % (Auto) 0.2, Absolute Neuts (auto) 11.1 H, Absolute Lymphs (auto) 1.33, Nucleated RBC % 0, ESR 68 H 03/07/22 15:35: C-React Prot Ext Range 15.50 H 03/07/22 16:01: POC Glucose 233 H 03/07/22 21:12: POC Glucose 109 H 03/08/22 06:12: POC Glucose 134 H 03/08/22 11:17: POC Glucose 162 H 03/08/22 12:45: Fluid Crystals SEE PATH REV, Fluid Crystal Source SYNOVIAL, Synovial Source LFT KNEE, Synovial Color Red, Synovial Appearance Turbid, Synovial Viscosity Mod. Viscous, Synovial WBC 0.5030 H, Synovial RBC 0.051 H, Synovial Tot Cell Ct 0.5080 H, Synov Polynuclear WBCs 0.475, Synov Mononuclear WBCs 0.028, Synovial Neutrophils 99 H, Synovial Lymphocytes 1, Synovial Polynuclear % 94.4, Synovial Mononuclear % 5.6, Synovial Path Comment May follow Micro: Microbiology 03/08/22 12:45 Fluid - Synovial (joint) Gram Stain - Final 03/03/22 14:56 Nasal Secretion SARS-CoV-2 Antigen (Rapid) - Final Physical Exam Const alert, oriented x3 and no apparent distress General Appearance: cooperative Extremity Extremity Narrative: small joint effusion, no erythema ROM 0-70 no erythema. NVI no cruciate or collateral instability. Assessment & Plan Assessment/Plan (1) Effusion of left knee joint: (2) History of total knee arthroplasty: PLAN: Plan Thorough discussion was had with the patient and his family member that was present. Discussed that yes this could be a gouty flare although with his elevated white blood cell count chills on admission joint effusion elevated ESR CRP and knee pain that I would recommend arthrocentesis of left knee joint to rule out infection. Risk and benefits thoroughly reviewed patient verbally consented. Under sterile technique the superior lateral position was prepped with alcohol and Betadine and an 18-gauge spinal needle was used to aspirate the knee joint 10 cc of very cloudy joint fluid was sent for cell count differential, crystal analysis, gram stain, aerobic anaerobic cultures. Preliminary results have returned: no organisms on Gram stain synovial WBC 500, polys 99%, crystals still pending as well as cultures at this point preliminary results would not favor infection we will continue to follow results as they come in. Recommend continued treatment for gout at this point.
[2022-03-08 16:00] VITALS: BP 148/72; PULSE 83; RESP 17; TEMP 36.6; O2SAT 93
[2022-03-08 17:00] LABS: Bedside Glucose 105 mg/dL (74-106)
[2022-03-08] MEDS: Tamsulosin HCl 0.4 MG Capsule PO (17:56)
[2022-03-08] MEDS: Rivaroxaban 20 MG Tablet PO (17:56)
[2022-03-08 17:57] VITALS: PULSE 83
[2022-03-08] MEDS: Senna/Docusate Sodium 1 Tablet PO (17:58)
[2022-03-08] MEDS: Insulin Glargine-YFGN 100 UNIT/ML Pen 50 UNIT SC (21:16)
[2022-03-08 21:17] VITALS: PULSE 79; RESP 18; O2SAT 95
[2022-03-08] MEDS: MELATONIN 10 MG TABLET PO (21:21)
[2022-03-08] MEDS: Atorvastatin Calcium 20 MG Tablet PO (21:21)
[2022-03-08] MEDS: Doxazosin 4 MG Tablet PO (21:21)
[2022-03-08] MEDS: tiZANidine HCl 2 MG Tablet 4 MG PO (21:21)
[2022-03-09 01:05] LABS: Bedside Glucose 171 mg/dL (74-106)
[2022-03-09 06:25] VITALS: BP 129/87; PULSE 89
[2022-03-09] MEDS: Furosemide 80 MG Tablet PO (06:25)
[2022-03-09] MEDS: Metoprolol Tartrate 50 MG Tablet 75 MG PO ×2 (06:25→18:11)
[2022-03-09 06:41] LABS: Bedside Glucose 142 mg/dL (74-106)
[2022-03-09] MEDS: traMADol 50 MG Tablet PO ×3 (06:49→21:50)
[2022-03-09] MEDS: Arthritis Pain Compound 60 CLICK TUBE TOPICAL ×3 (06:50→21:43)
[2022-03-09] MEDS: Nystatin Powder 15gm Bottle 1 APPLIC TOPICAL ×2 (06:51→18:17)
[2022-03-09] MEDS: Menthol/Lanolin/Calamine/Znox 113 GM Tube 1 APPLIC TOPICAL ×2 (06:51→18:15)
[2022-03-09 07:19] VITALS: O2SAT 92
[2022-03-09] MEDS: Insulin Lispro 100 UNIT/ML INSULN.PEN 20 UNIT SC ×3 (07:55→18:10)
[2022-03-09] MEDS: Multivitamins,Therapeutic Tablet 1 TABLET PO (07:55)
[2022-03-09] MEDS: Gabapentin 600 MG Tablet PO ×3 (07:55→18:15)
[2022-03-09 09:13] VITALS: PULSE 80; RESP 18; O2SAT 99
--- NOTE | 2022-03-09 09:41 | MDS.RN ---
Information for the mds was obtained from review of the clinical record, interview of resident, staff, and direct observation of resident's care.
[2022-03-09 11:20] LABS: Bedside Glucose 176 mg/dL (74-106)
[2022-03-09] MEDS: tiZANidine HCl 2 MG Tablet 4 MG PO ×2 (11:54→21:45)
[2022-03-09] MEDS: Insulin Lispro 100 UNIT/ML INSULN.PEN SC ×2 (11:55→18:11)
[2022-03-09 13:16] LABS: Pathologist Review Reviewed
[2022-03-09 13:21] LABS: Pathologist Comment Reviewed
--- NOTE | 2022-03-09 14:18 | NURSING ---
Received call from Dr Love's office, spoke with Farhana. Dr. Love to come to unit tomorrow between 10a - noon to do another aspiration of patients left knee. pt is to not be on any antibiotics.
[2022-03-09 16:00] VITALS: BP 105/58; PULSE 84; RESP 20; TEMP 36.3; O2SAT 95
[2022-03-09 16:26] LABS: Bedside Glucose 153 mg/dL (74-106)
[2022-03-09 18:11] VITALS: PULSE 93
[2022-03-09] MEDS: Senna/Docusate Sodium 1 Tablet PO (18:11)
[2022-03-09] MEDS: Tamsulosin HCl 0.4 MG Capsule PO (18:13)
[2022-03-09] MEDS: Rivaroxaban 20 MG Tablet PO (18:13)
[2022-03-09 21:40] LABS: Bedside Glucose 139 mg/dL (74-106)
[2022-03-09] MEDS: Doxazosin 4 MG Tablet PO (21:43)
[2022-03-09] MEDS: MELATONIN 10 MG TABLET PO (21:44)
[2022-03-09] MEDS: Atorvastatin Calcium 20 MG Tablet PO (21:44)
[2022-03-09] MEDS: Insulin Glargine-YFGN 100 UNIT/ML Pen 50 UNIT SC (21:45)
[2022-03-10] MEDS: traMADol 50 MG Tablet PO ×3 (05:46→21:27)
[2022-03-10] MEDS: Furosemide 80 MG Tablet PO (05:47)
[2022-03-10] MEDS: Menthol/Lanolin/Calamine/Znox 113 GM Tube 1 APPLIC TOPICAL ×2 (05:48→17:40)
[2022-03-10] MEDS: Nystatin Powder 15gm Bottle 1 APPLIC TOPICAL ×2 (05:48→17:39)
[2022-03-10 05:49] VITALS: BP 138/73; PULSE 77
[2022-03-10] MEDS: Metoprolol Tartrate 50 MG Tablet 75 MG PO ×2 (05:49→17:39)
[2022-03-10 06:30] LABS: Bedside Glucose 191 mg/dL (74-106)
--- NOTE | 2022-03-10 07:34 | PCM.PN.ORT ---
Subjective Subjective Seen and examined, states knee is unchanged complain of pain left knee ,no fevers or chills Objective Data Objective Data Vital Signs: Vital Signs Temp Pulse Resp BP Pulse Ox O2 Del Method O2 Flow Rate 97.3 F L 77 20 H 138/73 H 95 Room Air 2 03/09/22 16:00 03/10/22 05:49 03/09/22 16:00 03/10/22 05:49 03/09/22 16:00 03/09/22 16:00 03/07/22 06:56 Oxygen Flow Rate (L/min) 2 Oxygen Delivery Method Room Air Weight: 351 lb 3.2 oz Body Mass Index (BMI) 51.0 Intake & Output: Intake and Output for Last 24 Hours 03/08/22 03/09/22 03/10/22 23:59 23:59 23:59 Intake Total 720 / 720 960 / 960 Output Total 300 / 300 Balance 420 / 420 960 / 960 Lab / Micro Data Result Diagrams: 03/07/22 15:35 03/06/22 10:36 Labs: Laboratory Results - last 24 hr 03/08/22 12:45: Fl Crystal Path Review Reviewed, Synovial Path Comment Reviewed 03/09/22 11:00: POC Glucose 176 H 03/09/22 16:04: POC Glucose 153 H 03/09/22 21:22: POC Glucose 139 H 03/10/22 06:06: POC Glucose 191 H Micro: Microbiology 03/08/22 12:45 Fluid - Synovial (joint) Gram Stain - Final 03/08/22 12:45 Fluid - Synovial (joint) Body Fluid Culture - Preliminary Coag Negative Staph 03/09/22 05:05 Nasal Secretion SARS-CoV-2 Antigen (Rapid) - Final 03/03/22 14:56 Nasal Secretion SARS-CoV-2 Antigen (Rapid) - Final Physical Exam Const alert, oriented x3 and no apparent distress Extremity Extremity Narrative: Mild synovial hypertrophy , minimal joint effusion no erythema, 0 to 80 degrees of flexion Assessment & Plan Assessment/Plan (1) History of total knee arthroplasty: (2) Effusion of left knee joint: (3) Gout of knee: PLAN: Plan Aspiration performed 03/08/2022 demonstrated monosodium urate crystals consistent with gout. White blood cell count in the synovial fluid was only 500 initial gram stain no organisms however rare coagulase-negative Staph aureus has subsequently grown. I did have thorough discussion with the patient about this he does indeed have gout in the knee however considering culture growth would recommend repeat aspiration to determine whether or not this was a contaminate versus a periprosthetic joint infection. If second culture grows same bacterial bug then he would need MSIS criteria for periprosthetic joint infection. We will follow culture results and further recommendations to follow. Recommend continued treatment for gout no antibiotics at this time.
[2022-03-10 08:04] VITALS: O2SAT 93
[2022-03-10] MEDS: Multivitamins,Therapeutic Tablet 1 TABLET PO (08:08)
[2022-03-10] MEDS: Insulin Lispro 100 UNIT/ML INSULN.PEN 20 UNIT SC ×3 (08:08→17:40)
[2022-03-10] MEDS: Insulin Lispro 100 UNIT/ML INSULN.PEN SC ×3 (08:09→17:40)
[2022-03-10] MEDS: Arthritis Pain Compound 60 CLICK TUBE TOPICAL ×3 (08:09→21:18)
[2022-03-10] MEDS: Gabapentin 600 MG Tablet PO ×3 (08:10→17:41)
[2022-03-10 11:21] LABS: Bedside Glucose 165 mg/dL (74-106)
[2022-03-10 15:16] VITALS: BP 146/63; PULSE 90; RESP 14; TEMP 36.5; O2SAT 95
--- NOTE | 2022-03-10 16:05 | NURSING ---
Family and pt updated on covid positive staff member.
[2022-03-10 16:06] LABS: Bedside Glucose 264 mg/dL (74-106)
[2022-03-10] MEDS: Rivaroxaban 20 MG Tablet PO (17:38)
[2022-03-10] MEDS: Tamsulosin HCl 0.4 MG Capsule PO (17:38)
[2022-03-10] MEDS: Senna/Docusate Sodium 1 Tablet PO (17:38)
[2022-03-10 17:39] VITALS: BP 136/68; PULSE 85
[2022-03-10] MEDS: Atorvastatin Calcium 20 MG Tablet PO (21:17)
[2022-03-10] MEDS: Doxazosin 4 MG Tablet PO (21:17)
[2022-03-10] MEDS: tiZANidine HCl 2 MG Tablet 4 MG PO (21:17)
[2022-03-10] MEDS: MELATONIN 10 MG TABLET PO (21:19)
[2022-03-10] MEDS: Insulin Glargine-YFGN 100 UNIT/ML Pen 50 UNIT SC (21:21)
[2022-03-10 21:28] VITALS: PULSE 79; RESP 18; O2SAT 94
[2022-03-10 21:35] LABS: Bedside Glucose 145 mg/dL (74-106)
[2022-03-11] MEDS: Arthritis Pain Compound 60 CLICK TUBE TOPICAL ×3 (06:03→22:51)
[2022-03-11] MEDS: Menthol/Lanolin/Calamine/Znox 113 GM Tube 1 APPLIC TOPICAL ×2 (06:03→17:28)
[2022-03-11 06:04] VITALS: BP 130/69; PULSE 80
[2022-03-11] MEDS: Metoprolol Tartrate 50 MG Tablet 75 MG PO ×2 (06:04→17:27)
[2022-03-11] MEDS: Furosemide 80 MG Tablet PO (06:04)
[2022-03-11] MEDS: Nystatin Powder 15gm Bottle 1 APPLIC TOPICAL ×2 (06:04→17:28)
[2022-03-11] MEDS: traMADol 50 MG Tablet PO ×2 (06:10→12:07)
[2022-03-11 06:29] LABS: Absolute Lymphocyte Count 2.67 X10^3/uL (0.83-4.51); Absolute Neutrophil Count 10.5 X10^3/uL (2.0-7.7); Basophil# 0.08 X10^3/uL; Basophil% 0.5 % (0-1); Eosinophil# 0.23 X10^3/uL; Eosinophils% 1.5 % (0-5); Hematocrit 38.2 % (40-54); Hemoglobin 12.2 g/dL (13.0-16.5); Lymphocyte # 2.67 X10^3/ul (0.83-4.51); Lymphocyte % 17.5 % (19-41); Mean Corp Hgb Conc 31.9 g/dL (32-36); Mean Corpuscular Hgb 28.2 pg (27.0-32.0); Mean Corpuscular Volume 88.2 fL (80-94); Monocyte# 1.59 X10^3/uL; Monocyte% 10.4 % (0-10); NRBC Flagged by Analyzer 0 % (0-5); Neutrophil # 10.51 X10^3/uL (2.7-7.7); Neutrophil % 68.9 % (47-70); POSITIVE DIFFERENTIAL YES; Platelet Count 299 K/mm3 (150-450); RBC Distribution Width CV 12.7 % (11.6-14.6); RBC Distribution Width SD 41.3 fl (35.1-43.9); Red Blood Count 4.33 M/mm3 (4.6-6.2); White Blood Count 15.3 K/mm3 (4.4-11.0)
[2022-03-11 06:31] LABS: Differential Indicated SCAN CRITERIA MET
[2022-03-11 06:43] LABS: Differential Comment SCANNED
[2022-03-11 06:45] LABS: Bedside Glucose 176 mg/dL (74-106)
[2022-03-11 06:51] LABS: Anion Gap 7 (5-15); BUN 39 mg/dL (7-18); BUN/Creat Ratio 23.5 RATIO (10-20); Calcium,Total 9.1 mg/dL (8.5-10.1); Chloride 100 mmol/L (98-107); Creatinine, Serum 1.66 mg/dL (0.70-1.30); EST Glomerular Filtration Rate 44 mL/min (>60); Est Glom Filt Rate - Afr Amer 53 mL/min (>60); Glucose 182 mg/dL (74-106); Potassium 4.3 mmol/L (3.5-5.1); Sodium Level 133 mmol/L (136-145)
[2022-03-11] MEDS: Insulin Lispro 100 UNIT/ML INSULN.PEN SC ×3 (07:44→17:26)
[2022-03-11] MEDS: Multivitamins,Therapeutic Tablet 1 TABLET PO (07:44)
[2022-03-11] MEDS: Insulin Lispro 100 UNIT/ML INSULN.PEN 20 UNIT SC ×3 (07:44→17:26)
[2022-03-11] MEDS: Gabapentin 600 MG Tablet PO ×3 (07:46→17:28)
[2022-03-11 10:00] VITALS: PULSE 81; RESP 18; O2SAT 95
[2022-03-11 11:50] LABS: Bedside Glucose 199 mg/dL (74-106)
[2022-03-11 14:47] VITALS: BP 130/66; PULSE 95; RESP 16; TEMP 36.9; O2SAT 93
[2022-03-11 16:40] LABS: Bedside Glucose 168 mg/dL (74-106)
[2022-03-11 17:27] VITALS: PULSE 95
[2022-03-11] MEDS: Rivaroxaban 20 MG Tablet PO (17:27)
[2022-03-11] MEDS: Colchicine 0.6 MG TABLET PO (17:28)
[2022-03-11] MEDS: Tamsulosin HCl 0.4 MG Capsule PO (17:28)
[2022-03-11] MEDS: Senna/Docusate Sodium 1 Tablet PO (17:29)
[2022-03-11 20:39] VITALS: BP 137/80; PULSE 91
[2022-03-11] MEDS: Doxazosin 4 MG Tablet PO (20:40)
--- NOTE | 2022-03-11 20:40 | NURSING ---
Pt reports linens are wet. Slightly disoriented. Thinks he is supposed to go upstairs. Reoriented to person, place, and time. Will continue to monitor.
[2022-03-11] MEDS: tiZANidine HCl 2 MG Tablet 4 MG PO (20:41)
[2022-03-11] MEDS: MELATONIN 10 MG TABLET PO (20:42)
[2022-03-11] MEDS: Atorvastatin Calcium 20 MG Tablet PO (20:42)
[2022-03-11 21:36] LABS: Bedside Glucose 187 mg/dL (74-106)
--- NOTE | 2022-03-11 22:45 | NURSING ---
Pt refusing an hs snack. Initially declining to use his CPAP at this time then allows stonework tracer to turn on unit. Will continue to monitor.
[2022-03-11] MEDS: Insulin Glargine-YFGN 100 UNIT/ML Pen 50 UNIT SC (22:55)
[2022-03-12 04:44] VITALS: BP 117/69; PULSE 84
[2022-03-12] MEDS: Metoprolol Tartrate 50 MG Tablet 75 MG PO (04:44)
--- NOTE | 2022-03-12 04:45 | NURSING ---
Pt completed an unassisted transfer from bed to the recliner chair. Informed this nurse he was unable to locate his urinal and did not want to urinate everywhere. Instructed on the importance of calling for staff assist for all transfers until cleared by therapy. Pt becomes frustrated. Oriented to time and place. Pt requests to go back to bed. Moderate assist x 1 using wheeled walker. Positioned in bed for comfort and needed assistance w/ lifting legs into bed. Call light w/ in reach.
[2022-03-12] MEDS: Senna/Docusate Sodium 1 Tablet PO (04:46)
[2022-03-12] MEDS: Furosemide 80 MG Tablet PO (04:46)
[2022-03-12] MEDS: Arthritis Pain Compound 60 CLICK TUBE TOPICAL ×3 (04:47→22:08)
[2022-03-12] MEDS: Colchicine 0.6 MG TABLET PO ×2 (04:47→18:17)
[2022-03-12] MEDS: Menthol/Lanolin/Calamine/Znox 113 GM Tube 1 APPLIC TOPICAL ×2 (04:49→18:21)
[2022-03-12] MEDS: Nystatin Powder 15gm Bottle 1 APPLIC TOPICAL ×2 (04:50→18:25)
[2022-03-12 06:46] LABS: Bedside Glucose 228 mg/dL (74-106)
[2022-03-12] MEDS: Insulin Lispro 100 UNIT/ML INSULN.PEN SC ×2 (08:23→12:37)
[2022-03-12] MEDS: Insulin Lispro 100 UNIT/ML INSULN.PEN 20 UNIT SC ×3 (08:23→18:13)
[2022-03-12] MEDS: traMADol 50 MG Tablet PO ×2 (08:31→14:47)
[2022-03-12] MEDS: Multivitamins,Therapeutic Tablet 1 TABLET PO (08:31)
[2022-03-12] MEDS: Gabapentin 600 MG Tablet PO ×3 (08:31→18:19)
[2022-03-12 12:05] LABS: Bedside Glucose 248 mg/dL (74-106)
[2022-03-12 15:53] VITALS: BP 111/66; PULSE 84; RESP 18; TEMP 36.7; O2SAT 97
[2022-03-12 16:35] LABS: Bedside Glucose 148 mg/dL (74-106)
[2022-03-12] MEDS: Tamsulosin HCl 0.4 MG Capsule PO (18:15)
[2022-03-12] MEDS: Rivaroxaban 20 MG Tablet PO (18:15)
[2022-03-12 18:21] VITALS: BP 92/55; PULSE 92
[2022-03-12 21:31] LABS: Bedside Glucose 134 mg/dL (74-106)
[2022-03-12 21:42] LABS: Mucous, Urine 0 SEEN /hpf (<or=2+); Red Blood Cells-Urine 0 SEEN /hpf (0-5); Squamous Epithelial Cells - UA 0 SEEN /hpf (0-5); White Blood Cells 0 SEEN /hpf (0-5)
--- NOTE | 2022-03-12 21:43 | NURSING ---
Call placed to lab to follow-up on the status of the UA as urine culture is pending. Spoke w/ Fanny. She verified specimen has been collected and status is now pending. Will continue to monitor.
[2022-03-12 21:57] LABS: Color, Urine Yellow (Yellow); Glucose, Dipstick Normal (Normal); Ketone-Dipstick Negative (Negative); Leukocyte Esterase-Dipstick Negative /ul (Negative); Nitrite-Dipstick Negative (Negative); Occult Blood-Urine Negative /ul (Negative); Protein-Dipstick 15 mg/dl (Negative); Specific Gravity, Urine 1.015 (1.002-1.030); Urine Bilirubin Dipstick Negative (Negative); Urine Clarity Sl. Cloudy (Clear); Urine Urobilinogen Normal (Normal)
[2022-03-12] MEDS: Atorvastatin Calcium 20 MG Tablet PO (22:08)
[2022-03-12] MEDS: tiZANidine HCl 2 MG Tablet 4 MG PO (22:09)
[2022-03-12] MEDS: Doxazosin 4 MG Tablet PO (22:09)
[2022-03-12] MEDS: MELATONIN 10 MG TABLET PO (22:09)
[2022-03-12] MEDS: Insulin Glargine-YFGN 100 UNIT/ML Pen 50 UNIT SC (22:10)
[2022-03-12 22:23] VITALS: BP 144/75; PULSE 99
[2022-03-12 22:35] LABS: Bacteria 1+ /hpf (None Seen)
[2022-03-13] MEDS: Arthritis Pain Compound 60 CLICK TUBE TOPICAL ×3 (05:17→21:06)
[2022-03-13 05:19] VITALS: BP 126/73; PULSE 90
[2022-03-13] MEDS: Metoprolol Tartrate 50 MG Tablet 75 MG PO ×2 (05:19→17:14)
[2022-03-13] MEDS: Menthol/Lanolin/Calamine/Znox 113 GM Tube 1 APPLIC TOPICAL ×3 (05:19→21:08)
[2022-03-13] MEDS: Colchicine 0.6 MG TABLET PO ×2 (05:20→17:12)
[2022-03-13] MEDS: Senna/Docusate Sodium 1 Tablet PO ×2 (05:20→17:13)
[2022-03-13] MEDS: Furosemide 80 MG Tablet PO (05:20)
[2022-03-13] MEDS: Nystatin Powder 15gm Bottle 1 APPLIC TOPICAL ×2 (05:20→21:15)
[2022-03-13] MEDS: traMADol 50 MG Tablet PO (05:28)
[2022-03-13 06:35] LABS: Bedside Glucose 158 mg/dL (74-106)
--- NOTE | 2022-03-13 07:59 | PN.ORTHO_ITS ---
Objective Data Objective Data Vital Signs: Vital Signs Temp Pulse Resp BP Pulse Ox O2 Del Method O2 Flow Rate 98.0 F 90 18 126/73 H 97 CPAP 2 03/12/22 15:53 03/13/22 05:19 03/12/22 15:53 03/13/22 05:19 03/12/22 15:53 03/12/22 21:55 03/12/22 21:55 Oxygen Flow Rate (L/min) 2 Oxygen Delivery Method CPAP Weight: 351 lb 3.2 oz Body Mass Index (BMI) 51.0 Intake & Output: Intake and Output for Last 24 Hours 03/11/22 03/12/22 03/13/22 23:59 23:59 23:59 Intake Total 840 / 840 960 / 960 Output Total 400 / 400 Balance 440 / 440 960 / 960 Lab / Micro Data Result Diagrams: 03/11/22 06:14 03/11/22 06:14 Labs: Laboratory Results - last 24 hr 03/12/22 11:38: POC Glucose 248 H 03/12/22 16:16: POC Glucose 148 H 03/12/22 21:13: POC Glucose 134 H 03/12/22 : Urine Color Yellow, Urine Clarity Sl. Cloudy, Urine pH 5.0, Ur Specific [place] 1.015, Urine Protein 15 H, Urine Glucose (UA) Normal, Urine Ketones Negative, Urine Occult Blood Negative, Urine Nitrite Negative, Urine Bilirubin Negative, Urine Urobilinogen Normal, Ur Leukocyte Esterase Negative, Urine RBC 0 SEEN, Urine WBC 0 SEEN, Ur Squamous Epith Cells 0 SEEN, Urine Bacteria 1+, Urine Mucus 0 SEEN 03/13/22 06:07: POC Glucose 158 H Micro: Microbiology 03/08/22 12:45 Fluid - Synovial (joint) Gram Stain - Final 03/08/22 12:45 Fluid - Synovial (joint) Body Fluid Culture - Final Staphylococcus epidermidis 03/08/22 12:45 Fluid - Synovial (joint) Anaerobic Culture - Final No anaerobic bacteria isolated. 03/10/22 07:20 Fluid - Synovial (joint) Gram Stain - Final 03/10/22 07:20 Fluid - Synovial (joint) Body Fluid Culture - Final Staphylococcus epidermidis 03/10/22 07:20 Fluid - Synovial (joint) Anaerobic Culture - Preliminary 03/09/22 05:05 Nasal Secretion SARS-CoV-2 Antigen (Rapid) - Final 03/03/22 14:56 Nasal Secretion SARS-CoV-2 Antigen (Rapid) - Final Assessment & Plan Assessment/Plan (1) Gout of knee: (2) History of total knee arthroplasty: (3) Infection of total knee replacement: PLAN: Plan Final culture results from 2 separate aspirations 03/08/22 and 03/10/22 both grew Staphylococcus epidermidis, patient also had monosodium urate crystals on analysis. Patient meets criteria for periprosthetic joint infection. Multiple comorbidities. Patient will need surgical intervention likely two-stage surgery with antibiotic spacers and IV antibiotics. Discussed with Dr. Araujo, recommend referral to [facility] who performed the initial surgery.
[2022-03-13] MEDS: Insulin Lispro 100 UNIT/ML INSULN.PEN 20 UNIT SC ×3 (08:02→17:16)
[2022-03-13] MEDS: Insulin Lispro 100 UNIT/ML INSULN.PEN SC ×3 (08:04→17:16)
[2022-03-13] MEDS: Multivitamins,Therapeutic Tablet 1 TABLET PO (08:05)
[2022-03-13] MEDS: Gabapentin 600 MG Tablet PO ×3 (08:12→17:11)
--- NOTE | 2022-03-13 09:49 | NURSING ---
called office to schedule appointment for pt due to order from dr. deloris marrero. reports faxed to office,office stated they will call back to let us know how soon they can get pt in. rn aware. dr. brown was in to see pt also.
--- NOTE | 2022-03-13 10:27 | NURSING ---
PT AND FAMILY VERY UPSET STATING THAT NO ONE HAS ADDRESSED PT LEFT KNEE SINCE DAY ONE AND NOW NEEDS A URGENT CONSULT DUE TO THE RESULTS OF TESTS. DAUGHTER STATED SOUNDS LIKE A LAW SUIT COMING. RN AWARE.
--- NOTE | 2022-03-13 10:32 | NURSING ---
Spoke with Dr. Cobb after family and pt stated that Dr. Cobb would hold off on starting antibiotic until after family and pt speak with Dr. Mei. Per Dr. Cobb's order antibiotic is to be rescheduled until later today.
[2022-03-13 10:55] LABS: Bedside Glucose 200 mg/dL (74-106)
--- NOTE | 2022-03-13 11:58 | PCM.PN.ORT ---
Subjective Subjective seen with patient family at bedside. Objective Data Objective Data Vital Signs: Vital Signs Temp Pulse Resp BP Pulse Ox O2 Del Method O2 Flow Rate 98.0 F 90 18 126/73 H 97 CPAP 2 03/12/22 15:53 03/13/22 05:19 03/12/22 15:53 03/13/22 05:19 03/12/22 15:53 03/12/22 21:55 03/12/22 21:55 Oxygen Flow Rate (L/min) 2 Oxygen Delivery Method CPAP Weight: 351 lb 3.2 oz Body Mass Index (BMI) 51.0 Intake & Output: Intake and Output for Last 24 Hours 03/11/22 03/12/22 03/13/22 23:59 23:59 23:59 Intake Total 840 / 840 960 / 960 120 / 120 Output Total 400 / 400 Balance 440 / 440 960 / 960 120 / 120 Lab / Micro Data Result Diagrams: 03/11/22 06:14 03/11/22 06:14 Labs: Laboratory Results - last 24 hr 03/12/22 11:38: POC Glucose 248 H 03/12/22 16:16: POC Glucose 148 H 03/12/22 21:13: POC Glucose 134 H 03/12/22 : Urine Color Yellow, Urine Clarity Sl. Cloudy, Urine pH 5.0, Ur Specific [place] 1.015, Urine Protein 15 H, Urine Glucose (UA) Normal, Urine Ketones Negative, Urine Occult Blood Negative, Urine Nitrite Negative, Urine Bilirubin Negative, Urine Urobilinogen Normal, Ur Leukocyte Esterase Negative, Urine RBC 0 SEEN, Urine WBC 0 SEEN, Ur Squamous Epith Cells 0 SEEN, Urine Bacteria 1+, Urine Mucus 0 SEEN 03/13/22 06:07: POC Glucose 158 H 03/13/22 10:33: POC Glucose 200 H Micro: Microbiology 03/12/22 20:25 Urine, Catheterized Urine Culture - Preliminary Culture exhibits no growth. 03/08/22 12:45 Fluid - Synovial (joint) Gram Stain - Final 03/08/22 12:45 Fluid - Synovial (joint) Body Fluid Culture - Final Staphylococcus epidermidis 03/08/22 12:45 Fluid - Synovial (joint) Anaerobic Culture - Final No anaerobic bacteria isolated. 03/10/22 07:20 Fluid - Synovial (joint) Gram Stain - Final 03/10/22 07:20 Fluid - Synovial (joint) Body Fluid Culture - Final Staphylococcus epidermidis 03/10/22 07:20 Fluid - Synovial (joint) Anaerobic Culture - Preliminary 03/09/22 05:05 Nasal Secretion SARS-CoV-2 Antigen (Rapid) - Final 03/03/22 14:56 Nasal Secretion SARS-CoV-2 Antigen (Rapid) - Final Assessment & Plan Assessment/Plan (1) Infection of total knee replacement: (2) Gout of knee: (3) History of total knee arthroplasty: PLAN: Plan discussion had with patient and family regarding aspiration results. Final culture results from 2 separate aspirations 03/08/22 and 03/10/22 both grew Staphylococcus epidermidis, patient also had monosodium urate crystals on analysis.? Patient meets criteria for periprosthetic joint infection.? Multiple comorbidities.? Patient will need surgical intervention likely two-stage surgery with antibiotic spacers and IV antibiotics.? Discussed with Dr. Araujo, recommend referral to [facility] who performed the initial surgery or Dr. eMi locally.
[2022-03-13 13:13] LABS: Pathologist Review Reviewed
[2022-03-13 14:05] VITALS: PULSE 80; RESP 18; O2SAT 98
--- NOTE | 2022-03-13 14:43 | NURSING ---
UPDATED PT AND CALLED ABOUT NOT WANTING TO TAKE ON PT FOR KNEE AND HAVING OTHER UNDER LYING CONDITIONS AND STATED PT SHOULD GO BACK TO DR AT [facility] THAT DID THE SURGERY. PT AND STATED THEY ARE NOT GOING BACK THERE AND WOULD PREFER TO SEE SOMEONE AT [facility]. ASKED PT IF HE WOULD STAY TO RECEIVE HIS ANTIBIOTICS. PT AND AGREED. RN AND DR. JASON REIS.
--- NOTE | 2022-03-13 15:37 | WOUNDNOTE ---
wound photo: right heel
--- NOTE | 2022-03-13 15:44 | CON.PCM.ID_ITS ---
Assessment & Plan Assessment/Plan (1) Infection of total knee replacement: PLAN: L knee MSSE PJI - Dr. Mei consulted as pt refuses to go back to [facility]. Will order ceftriaxone to start. Reports rash with PCN as a child, no issue with amox since then. Will follow, thank you HPI Consult Data Date of Consult: 03/13/22 HPI Narrative Reason for Consultation: PJI HPI Narrative: TRINI MEJIAS, is a 66 M who presented 02/22/22 to [facility] ED with fall, weakness, BLE edema, and L knee pain. H/o L knee replacement at [facility]. Given some abx for ? cellulitis, discharged to TCU for rehab. Seen by ortho, aspiration of L knee, now showing MSSE. No fever, no n/v/d. Feeling ok other than his leg. Full ROS performed and neg except as noted above. [facility] Medical History BPH (benign prostatic hyperplasia) Diabetes mellitus Dyslipidemia Former tobacco use HTN (hypertension) Morbid obesity GRETCHEN treated with BiPAP VTE (venous thromboembolism) Home Medications tizanidine 4 mg tablet (Zanaflex) 4 mg PO Q8H PRN Pain 12/15/13 [History Last Taken 11/29/15 10:00 4 MG] atorvastatin 20 mg tablet 20 mg PO QHS cholesterol 08/27/15 [History Last Taken 02/21/22] furosemide 40 mg tablet 80 mg PO DAILY diuretic 08/27/15 [History Last Taken 02/22/22] insulin glargine 100 unit/mL (3 mL) subcutaneous pen (Lantus Solostar U-100 Insulin) 65 units subcut QHS diabetes 08/27/15 [History Last Taken 02/21/22] multivitamin with folic acid 400 mcg tablet (Thera) 1 tab PO DAILY supplement 10/18/15 [History Last Taken 02/22/22] metoprolol tartrate 25 mg tablet 75 mg PO BID blood pressure 03/23/16 [History Last Taken 02/22/22] rivaroxaban 20 mg tablet (Xarelto) 20 mg PO DINNER blood thinner 03/23/16 [His tory Last Taken 02/21/22] aspirin 81 mg chewable tablet 81 mg PO DAILY heart health 04/03/20 [History Last Taken 02/22/22] doxazosin 4 mg tablet 4 mg PO QHS blood pressure 04/03/20 [History Last Taken 02/21/22] albuterol sulfate 90 mcg/actuation aerosol inhaler 2 inh inhalation Q6H PRN PRN SOB 02/22/22 [History Last Taken Unknown] amlodipine 10 mg tablet 1 tab PO DAILY hypertension 02/22/22 [History Last Taken 02/22/22] zinc 50 mg tablet 50 mg PO DAILY supplement 02/22/22 [History Last Taken ] insulin lispro 100 unit/mL subcutaneous pen 20 unit subcut BREAKFAST diabetes 02/23/22 [History Last Taken 02/22/22] insulin lispro 100 unit/mL subcutaneous pen 20 unit subcut LUNCH diabetes [History Last Taken 02/22/22] insulin lispro 100 unit/mL subcutaneous pen 25 unit subcut DINNER diabetes 02/23/22 [History Last Taken Unknown] acetaminophen 325 mg tablet (Tylenol) 650 mg PO Q4H PRN PRN Fever, pain 1-10/10 #0 tabs 02/24/22 [Rx Last Taken Unknown] gabapentin 600 mg tablet 600 mg PO TIDCM Nerve Pain 02/24/22 [History Last Taken Unknown] hydrocodone-acetaminophen 5-325mg 5mg-325mg 2 tab PO Q6H PRN PRN Pain Score 1- 10/10 1 day #4 tabs 02/24/22 [Rx Last Taken Unknown] insulin lispro 100 unit/mL subcutaneous pen (Humalog KwikPen (U-100) Insulin) See Protocol subcut ACHS Daibetes 02/24/22 [History Last Taken Unknown] melatonin 3 mg tablet 3 mg PO QHS PRN PRN Insomnia #0 tabs 02/24/22 [Rx Last Taken Unknown] Allergy/AdvReac Type Severity Reaction Status Date / Time Penicillins Allergy Unknown Hives Verified 02/22/22 20:03 erythromycin base AdvReac Nausea Verified 02/22/22 20:03 [Erythromycin Base] Family History Mother Diabetes Heart disease Coagulopathy Father Heart disease CVA (cerebral vascular accident) Parkinsons disease Surgical History (Updated 03/08/22 @ 14:[address] Jono Calvillo DO) History of total knee arthroplasty History of vascular surgery Hx of laminectomy Hx of total knee replacement Status post creation of pericardial window Social History household members: spouse Smoking Status: Former smoker how long ago did patient quit smoking: Quit 1994, smoked 1 ppd since age 15. alcohol intake: never substance use type: does not use Physical Exam Const alert, oriented x3 and no apparent distress General Appearance: cooperative HEENT normocephalic and head/scalp atraumatic Eyes PERRL and EOMs intact bilaterally Neck supple and No nodes Resp normal air movement and clear to auscultation bilaterally Cardio regular rate and regular rhythm GI soft to palpation, non-tender and non-distended Extremity Extremity Narrative: L knee with warmth, swelling, mild tenderness General Extremity: edema Skin no rashes or lesions noted Neuro CN's II-XII intact bilaterally Lab / Micro Data Attestation: I reviewed the patient's lab results. Result Diagrams: 03/11/22 06:14 03/11/22 06:14 Labs: Laboratory Results - last 24 hr 03/11/22 06:14: Diff Path Review Reviewed 03/12/22 16:16: POC Glucose 148 H 03/12/22 21:13: POC Glucose 134 H 03/12/22 : Urine Color Yellow, Urine Clarity Sl. Cloudy, Urine pH 5.0, Ur Specific [place] 1.015, Urine Protein 15 H, Urine Glucose (UA) Normal, Urine Ketones Negative, Urine Occult Blood Negative, Urine Nitrite Negative, Urine B ilirubin Negative, Urine Urobilinogen Normal, Ur Leukocyte Esterase Negative, Urine RBC 0 SEEN, Urine WBC 0 SEEN, Ur Squamous Epith Cells 0 SEEN, Urine Bacteria 1+, Urine Mucus 0 SEEN 03/13/22 06:07: POC Glucose 158 H 03/13/22 10:33: POC Glucose 200 H Micro: Microbiology 03/12/22 20:25 Urine, Catheterized Urine Culture - Preliminary Culture exhibits no growth.
[2022-03-13 16:00] VITALS: BP 130/57; PULSE 70; RESP 14; TEMP 37.3; O2SAT 93
[2022-03-13 16:45] LABS: Bedside Glucose 181 mg/dL (74-106)
[2022-03-13] MEDS: Rivaroxaban 20 MG Tablet PO (17:12)
[2022-03-13] MEDS: Tamsulosin HCl 0.4 MG Capsule PO (17:13)
[2022-03-13 17:14] VITALS: BP 130/57; PULSE 70
[2022-03-13] MEDS: Atorvastatin Calcium 20 MG Tablet PO (21:06)
[2022-03-13] MEDS: Doxazosin 4 MG Tablet PO (21:06)
[2022-03-13] MEDS: MELATONIN 10 MG TABLET PO (21:06)
[2022-03-13] MEDS: Insulin Glargine-YFGN 100 UNIT/ML Pen 50 UNIT SC (21:07)
[2022-03-13] MEDS: tiZANidine HCl 2 MG Tablet 4 MG PO (21:09)
[2022-03-13 21:26] LABS: Bedside Glucose 172 mg/dL (74-106)
[2022-03-14 05:36] VITALS: BP 124/72; PULSE 91
[2022-03-14] MEDS: Senna/Docusate Sodium 1 Tablet PO ×2 (05:36→17:50)
[2022-03-14] MEDS: Metoprolol Tartrate 50 MG Tablet 75 MG PO ×2 (05:36→17:50)
[2022-03-14] MEDS: Furosemide 80 MG Tablet PO (05:36)
[2022-03-14] MEDS: Colchicine 0.6 MG TABLET PO ×2 (05:37→17:49)
[2022-03-14] MEDS: traMADol 50 MG Tablet PO ×3 (05:41→20:27)
[2022-03-14] MEDS: Arthritis Pain Compound 60 CLICK TUBE TOPICAL ×3 (05:42→22:29)
[2022-03-14 06:11] LABS: Bedside Glucose 219 mg/dL (74-106)
[2022-03-14 06:40] LABS: Bedside Glucose 231 mg/dL (74-106)
[2022-03-14] MEDS: Gabapentin 600 MG Tablet PO ×3 (07:40→17:59)
[2022-03-14] MEDS: Insulin Lispro 100 UNIT/ML INSULN.PEN 20 UNIT SC ×3 (07:40→17:46)
[2022-03-14] MEDS: Insulin Lispro 100 UNIT/ML INSULN.PEN SC ×3 (07:41→17:47)
[2022-03-14] MEDS: Multivitamins,Therapeutic Tablet 1 TABLET PO (07:42)
--- NOTE | 2022-03-14 09:14 | NURSING ---
Addendum entered by Corry Conrad 03/14/22 13:11: Was able to make appt with Dr Yaw montoya at [facility], but wanted something sooner and did not want to go to [facility]. Pt now requesting [facility], so was able to get appt on 03/27/22 at 10am with Rosey. updated. upset and feels pt needs to be seen sooner but no appts available at this time. Original Note: WANTED A CONSULT FOR A IN STEGER FOR PT. THIS NURSE CALLED AND WAS TOLD THAT WAS OUT ON A EXTENDED LEAVE. NOTE LEFT FOR WHO IS COVERING FOR . RN AWARE
[2022-03-14] MEDS: 0.9% Saline Lock 10 ML Syringe IV (09:51)
[2022-03-14] MEDS: Nystatin Powder 15gm Bottle 1 APPLIC TOPICAL ×2 (09:52→22:29)
[2022-03-14] MEDS: Menthol/Lanolin/Calamine/Znox 113 GM Tube 1 APPLIC TOPICAL ×2 (09:54→22:29)
[2022-03-14 11:25] LABS: Bedside Glucose 227 mg/dL (74-106)
[2022-03-14 14:25] VITALS: BP 125/72; PULSE 79; RESP 18; TEMP 36.6; O2SAT 91
[2022-03-14 17:25] LABS: Bedside Glucose 162 mg/dL (74-106)
[2022-03-14] MEDS: Rivaroxaban 20 MG Tablet PO (17:49)
[2022-03-14] MEDS: Tamsulosin HCl 0.4 MG Capsule PO (17:49)
[2022-03-14 17:50] VITALS: BP 125/72; PULSE 79
[2022-03-14 19:43] VITALS: PULSE 65; RESP 18; O2SAT 98
[2022-03-14] MEDS: tiZANidine HCl 2 MG Tablet 4 MG PO (20:28)
--- NOTE | 2022-03-14 20:31 | NURSING ---
Pt. requests 100mg tramadol at this time, irritable toward staff at this time, states give me two not one like I took earlier and give me my muscle relaxer. PRN Tramadol and PRN Zanaflex administered as ordered per pt. request. No distress observed or reported. Presents in bed, television on. Resps even and unlabored. Call light in reach, denies further requests,
[2022-03-14 22:06] LABS: Bedside Glucose 132 mg/dL (74-106)
[2022-03-14] MEDS: MELATONIN 10 MG TABLET PO (22:28)
[2022-03-14] MEDS: Doxazosin 4 MG Tablet PO (22:28)
[2022-03-14] MEDS: Atorvastatin Calcium 20 MG Tablet PO (22:28)
[2022-03-14] MEDS: Insulin Glargine-YFGN 100 UNIT/ML Pen 50 UNIT SC (22:30)
[2022-03-15] MEDS: Arthritis Pain Compound 60 CLICK TUBE TOPICAL ×3 (04:49→22:30)
[2022-03-15 04:50] VITALS: PULSE 93
[2022-03-15] MEDS: Metoprolol Tartrate 50 MG Tablet 75 MG PO ×2 (04:50→17:46)
[2022-03-15] MEDS: Colchicine 0.6 MG TABLET PO ×2 (04:51→17:44)
[2022-03-15] MEDS: Furosemide 80 MG Tablet PO (04:51)
[2022-03-15] MEDS: Senna/Docusate Sodium 1 Tablet PO (04:51)
[2022-03-15 04:55] VITALS: BP 126/86; PULSE 93; RESP 20; TEMP 36.4; O2SAT 95
[2022-03-15 06:31] LABS: Bedside Glucose 176 mg/dL (74-106)
[2022-03-15] MEDS: Insulin Lispro 100 UNIT/ML INSULN.PEN 20 UNIT SC ×3 (08:03→17:42)
[2022-03-15] MEDS: Insulin Lispro 100 UNIT/ML INSULN.PEN SC ×3 (08:04→17:42)
[2022-03-15] MEDS: Multivitamins,Therapeutic Tablet 1 TABLET PO (08:05)
[2022-03-15] MEDS: Gabapentin 600 MG Tablet PO ×3 (08:05→17:43)
[2022-03-15] MEDS: traMADol 50 MG Tablet PO (08:08)
[2022-03-15] MEDS: 0.9% Saline Lock 10 ML Syringe IV (09:39)
[2022-03-15] MEDS: Menthol/Lanolin/Calamine/Znox 113 GM Tube 1 APPLIC TOPICAL ×2 (09:48→22:32)
[2022-03-15] MEDS: Nystatin Powder 15gm Bottle 1 APPLIC TOPICAL ×2 (09:53→22:32)
[2022-03-15 11:10] LABS: Bedside Glucose 233 mg/dL (74-106)
[2022-03-15 14:06] VITALS: BP 113/68; PULSE 81; RESP 18; TEMP 36.4; O2SAT 94
--- NOTE | 2022-03-15 15:30 | NURSING ---
Pt reports that Dr. Olmedo's office stated that pt is to go to appointment by cot transfer if she is unable to get on and off the XRAY table unassisted. Dr. Olmedo's office was called to inquire about have XRAYs done at [facility] and sending report to their office instead. No answer but message was left for office.
[2022-03-15 17:00] LABS: Bedside Glucose 190 mg/dL (74-106)
[2022-03-15] MEDS: Rivaroxaban 20 MG Tablet PO (17:43)
[2022-03-15] MEDS: Tamsulosin HCl 0.4 MG Capsule PO (17:44)
[2022-03-15 17:46] VITALS: PULSE 81
[2022-03-15 21:51] LABS: Bedside Glucose 135 mg/dL (74-106)
[2022-03-15] MEDS: Atorvastatin Calcium 20 MG Tablet PO (22:31)
[2022-03-15] MEDS: MELATONIN 10 MG TABLET PO (22:31)
[2022-03-15] MEDS: tiZANidine HCl 2 MG Tablet 4 MG PO (22:31)
[2022-03-15] MEDS: Doxazosin 4 MG Tablet PO (22:31)
[2022-03-15] MEDS: Insulin Glargine-YFGN 100 UNIT/ML Pen 50 UNIT SC (22:33)
[2022-03-16 05:51] VITALS: BP 110/60; PULSE 80
[2022-03-16] MEDS: traMADol 50 MG Tablet PO ×3 (05:59→21:11)
[2022-03-16] MEDS: Senna/Docusate Sodium 1 Tablet PO (06:00)
[2022-03-16] MEDS: Colchicine 0.6 MG TABLET PO ×2 (06:00→17:34)
[2022-03-16 06:01] VITALS: PULSE 80
[2022-03-16] MEDS: Metoprolol Tartrate 50 MG Tablet 75 MG PO ×2 (06:01→17:35)
[2022-03-16] MEDS: Furosemide 80 MG Tablet PO (06:01)
[2022-03-16] MEDS: Arthritis Pain Compound 60 CLICK TUBE TOPICAL ×3 (06:01→21:03)
[2022-03-16 06:35] LABS: Bedside Glucose 171 mg/dL (74-106)
[2022-03-16] MEDS: Gabapentin 600 MG Tablet PO ×3 (08:02→17:38)
[2022-03-16] MEDS: Insulin Lispro 100 UNIT/ML INSULN.PEN 20 UNIT SC ×3 (08:03→17:31)
[2022-03-16] MEDS: Insulin Lispro 100 UNIT/ML INSULN.PEN SC ×3 (08:04→17:32)
[2022-03-16] MEDS: Multivitamins,Therapeutic Tablet 1 TABLET PO (08:05)
[2022-03-16] MEDS: 0.9% Saline Lock 10 ML Syringe IV ×3 (10:10→21:07)
--- NOTE | 2022-03-16 10:23 | PN.ID_ITS ---
Physical Exam Narrative L knee slightly better pain and ROM, no fever, no n/v/d. Const alert and no apparent distress Resp normal air movement and clear to auscultation bilaterally Cardio regular rate and regular rhythm GI soft to palpation, non-tender and non-distended Skin Skin Narrative: L knee with some swelling, soreness ID ID: Route of nutrition/ use of supplements: [] Nutritional Intake: [] IV Site: [] Guido Catheter: [] Assessment & Plan Assessment/Plan (1) Infection of total knee replacement: PLAN: L knee MSSE PJI - Cont ceftriaxone. Sx improved. Ok for picc. Reports rash with PCN as a child, no issue with amox since then. Planned appt with ortho at [facility] in 1-2 weeks. Will follow
--- NOTE | 2022-03-16 11:09 | NURSING ---
IN TO SEE PT.
[2022-03-16 11:16] LABS: Bedside Glucose 182 mg/dL (74-106)
[2022-03-16] MEDS: Nystatin Powder 15gm Bottle 1 APPLIC TOPICAL ×2 (12:42→21:11)
[2022-03-16] MEDS: Menthol/Lanolin/Calamine/Znox 113 GM Tube 1 APPLIC TOPICAL ×2 (12:42→21:03)
[2022-03-16 15:38] VITALS: BP 112/56; PULSE 79; RESP 16; TEMP 36.8; O2SAT 94
[2022-03-16 16:21] LABS: Bedside Glucose 167 mg/dL (74-106)
[2022-03-16] MEDS: Tamsulosin HCl 0.4 MG Capsule PO (17:34)
[2022-03-16] MEDS: Rivaroxaban 20 MG Tablet PO (17:34)
[2022-03-16 17:35] VITALS: BP 112/56; PULSE 79
[2022-03-16 20:50] VITALS: PULSE 73; RESP 16; O2SAT 93
[2022-03-16] MEDS: Insulin Glargine-YFGN 100 UNIT/ML Pen 50 UNIT SC (21:05)
[2022-03-16] MEDS: Atorvastatin Calcium 20 MG Tablet PO (21:10)
[2022-03-16] MEDS: Doxazosin 4 MG Tablet PO (21:10)
[2022-03-16] MEDS: MELATONIN 10 MG TABLET PO (21:11)
[2022-03-16] MEDS: tiZANidine HCl 2 MG Tablet 4 MG PO (21:11)
[2022-03-16 21:13] VITALS: BP 116/64; PULSE 72
[2022-03-17 00:41] LABS: Bedside Glucose 176 mg/dL (74-106)
[2022-03-17 05:38] VITALS: BP 121/68; PULSE 75
[2022-03-17] MEDS: Senna/Docusate Sodium 1 Tablet PO ×2 (05:39→17:29)
[2022-03-17] MEDS: Colchicine 0.6 MG TABLET PO ×2 (05:44→17:30)
[2022-03-17 05:45] VITALS: PULSE 75
[2022-03-17] MEDS: Metoprolol Tartrate 50 MG Tablet 75 MG PO ×2 (05:45→17:30)
[2022-03-17] MEDS: Arthritis Pain Compound 60 CLICK TUBE TOPICAL ×3 (05:45→21:24)
[2022-03-17] MEDS: Furosemide 80 MG Tablet PO (05:45)
[2022-03-17] MEDS: traMADol 50 MG Tablet PO ×3 (05:49→21:23)
[2022-03-17 07:35] LABS: Bedside Glucose 139 mg/dL (74-106)
[2022-03-17] MEDS: Gabapentin 600 MG Tablet PO ×3 (07:56→17:33)
[2022-03-17] MEDS: Multivitamins,Therapeutic Tablet 1 TABLET PO (07:57)
[2022-03-17] MEDS: Insulin Lispro 100 UNIT/ML INSULN.PEN 20 UNIT SC ×3 (07:57→17:30)
[2022-03-17] MEDS: Menthol/Lanolin/Calamine/Znox 113 GM Tube 1 APPLIC TOPICAL ×2 (08:00→21:28)
[2022-03-17] MEDS: 0.9% Saline Lock 10 ML Syringe IV (09:43)
[2022-03-17] MEDS: Nystatin Powder 15gm Bottle 1 APPLIC TOPICAL ×2 (09:46→21:28)
[2022-03-17 09:53] VITALS: PULSE 76; RESP 16; O2SAT 93
[2022-03-17 11:40] LABS: Bedside Glucose 197 mg/dL (74-106)
[2022-03-17] MEDS: Insulin Lispro 100 UNIT/ML INSULN.PEN SC ×2 (12:05→17:30)
[2022-03-17 15:16] VITALS: BP 115/62; PULSE 81; RESP 20; TEMP 36.3; O2SAT 96
[2022-03-17 17:01] LABS: Bedside Glucose 211 mg/dL (74-106)
[2022-03-17] MEDS: Rivaroxaban 20 MG Tablet PO (17:29)
[2022-03-17] MEDS: Tamsulosin HCl 0.4 MG Capsule PO (17:29)
[2022-03-17 17:30] VITALS: PULSE 81
[2022-03-17] MEDS: Insulin Glargine-YFGN 100 UNIT/ML Pen 50 UNIT SC (21:16)
[2022-03-17] MEDS: Atorvastatin Calcium 20 MG Tablet PO (21:25)
[2022-03-17] MEDS: MELATONIN 10 MG TABLET PO (21:26)
[2022-03-17] MEDS: Doxazosin 4 MG Tablet PO (21:26)
[2022-03-17] MEDS: tiZANidine HCl 2 MG Tablet 4 MG PO (21:26)
[2022-03-17 22:01] LABS: Bedside Glucose 196 mg/dL (74-106)
[2022-03-18] MEDS: Arthritis Pain Compound 60 CLICK TUBE TOPICAL ×3 (06:03→20:28)
[2022-03-18] MEDS: traMADol 50 MG Tablet PO ×3 (06:04→20:27)
[2022-03-18 06:05] VITALS: BP 110/71; PULSE 83
[2022-03-18] MEDS: Metoprolol Tartrate 50 MG Tablet 75 MG PO ×2 (06:05→17:42)
[2022-03-18] MEDS: Senna/Docusate Sodium 1 Tablet PO (06:06)
[2022-03-18] MEDS: Furosemide 80 MG Tablet PO (06:06)
[2022-03-18] MEDS: Colchicine 0.6 MG TABLET PO ×2 (06:07→17:46)
[2022-03-18 06:24] LABS: Absolute Lymphocyte Count 2.57 X10^3/uL (0.83-4.51); Basophil# 0.08 X10^3/uL; Basophil% 0.6 % (0-1); Eosinophil# 0.31 X10^3/uL; Eosinophils% 2.4 % (0-5); Hematocrit 35.7 % (40-54); Hemoglobin 11.3 g/dL (13.0-16.5); Lymphocyte # 2.57 X10^3/ul (0.83-4.51); Lymphocyte % 19.8 % (19-41); Mean Corp Hgb Conc 31.7 g/dL (32-36); Mean Corpuscular Hgb 27.8 pg (27.0-32.0); Mean Corpuscular Volume 87.9 fL (80-94); Mean Platelet Vol. 9.2 fl (6.2-12.0); Monocyte# 0.95 X10^3/uL; Monocyte% 7.3 % (0-10); NRBC Flagged by Analyzer 0 % (0-5); Neutrophil # 8.97 X10^3/uL (2.7-7.7); Neutrophil % 69.2 % (47-70); Platelet Count 248 K/mm3 (150-450); RBC Distribution Width CV 12.8 % (11.6-14.6); RBC Distribution Width SD 41.3 fl (35.1-43.9); Red Blood Count 4.06 M/mm3 (4.6-6.2)
[2022-03-18 06:25] LABS: Bedside Glucose 164 mg/dL (74-106)
[2022-03-18 06:54] LABS: Anion Gap 6 (5-15); BUN 31 mg/dL (7-18); BUN/Creat Ratio 20.3 RATIO (10-20); Calcium,Total 8.9 mg/dL (8.5-10.1); Chloride 102 mmol/L (98-107); Creatinine, Serum 1.53 mg/dL (0.70-1.30); EST Glomerular Filtration Rate 49 mL/min (>60); Est Glom Filt Rate - Afr Amer 59 mL/min (>60); Estimated Creatinine Clearance 51.42 ml/min; Glucose 167 mg/dL (74-106); Potassium 4.1 mmol/L (3.5-5.1); Sodium Level 134 mmol/L (136-145)
[2022-03-18] MEDS: Gabapentin 600 MG Tablet PO ×3 (08:24→17:37)
[2022-03-18] MEDS: Insulin Lispro 100 UNIT/ML INSULN.PEN 20 UNIT SC ×3 (08:25→17:37)
[2022-03-18] MEDS: Insulin Lispro 100 UNIT/ML INSULN.PEN SC ×3 (08:25→17:38)
[2022-03-18] MEDS: Multivitamins,Therapeutic Tablet 1 TABLET PO (08:27)
[2022-03-18] MEDS: Nystatin Powder 15gm Bottle 1 APPLIC TOPICAL ×2 (08:28→20:30)
[2022-03-18] MEDS: Menthol/Lanolin/Calamine/Znox 113 GM Tube 1 APPLIC TOPICAL ×2 (08:28→20:29)
[2022-03-18] MEDS: 0.9% Saline Lock 10 ML Syringe IV (10:30)
[2022-03-18 11:05] LABS: Bedside Glucose 199 mg/dL (74-106)
[2022-03-18 13:37] VITALS: BP 107/65; PULSE 82; RESP 18; TEMP 36.7; O2SAT 99
[2022-03-18] MEDS: Rivaroxaban 20 MG Tablet PO (17:38)
[2022-03-18 17:42] VITALS: PULSE 82
[2022-03-18] MEDS: Tamsulosin HCl 0.4 MG Capsule PO (17:47)
[2022-03-18] MEDS: Doxazosin 4 MG Tablet PO (20:22)
[2022-03-18] MEDS: tiZANidine HCl 2 MG Tablet 4 MG PO (20:23)
[2022-03-18] MEDS: MELATONIN 10 MG TABLET PO (20:23)
[2022-03-18] MEDS: Atorvastatin Calcium 20 MG Tablet PO (20:23)
[2022-03-18 21:00] VITALS: RESP 16; O2SAT 95
[2022-03-18] MEDS: Insulin Glargine-YFGN 100 UNIT/ML Pen 50 UNIT SC (21:28)
[2022-03-19] MEDS: traMADol 50 MG Tablet PO ×2 (06:12→17:17)
[2022-03-19] MEDS: Arthritis Pain Compound 60 CLICK TUBE TOPICAL ×3 (06:12→21:49)
[2022-03-19 06:13] VITALS: BP 114/69; PULSE 70
[2022-03-19] MEDS: Furosemide 80 MG Tablet PO (06:13)
[2022-03-19] MEDS: Metoprolol Tartrate 50 MG Tablet 75 MG PO ×2 (06:13→17:05)
[2022-03-19] MEDS: Senna/Docusate Sodium 1 Tablet PO ×2 (06:16→17:07)
[2022-03-19] MEDS: Insulin Lispro 100 UNIT/ML INSULN.PEN 20 UNIT SC ×3 (08:55→17:04)
[2022-03-19] MEDS: Gabapentin 600 MG Tablet PO ×3 (08:55→17:07)
[2022-03-19] MEDS: Multivitamins,Therapeutic Tablet 1 TABLET PO (09:00)
[2022-03-19] MEDS: Nystatin Powder 15gm Bottle 1 APPLIC TOPICAL (09:00)
[2022-03-19] MEDS: Menthol/Lanolin/Calamine/Znox 113 GM Tube 1 APPLIC TOPICAL ×2 (09:00→21:51)
[2022-03-19 09:03] VITALS: O2SAT 95
[2022-03-19 11:20] LABS: Bedside Glucose 195 mg/dL (74-106)
[2022-03-19] MEDS: tiZANidine HCl 2 MG Tablet 4 MG PO ×2 (11:30→21:46)
[2022-03-19] MEDS: Insulin Lispro 100 UNIT/ML INSULN.PEN SC (11:35)
[2022-03-19 15:10] VITALS: BP 122/70; PULSE 81; RESP 16; TEMP 36.9; O2SAT 94
[2022-03-19 17:00] LABS: Bedside Glucose 150 mg/dL (74-106)
[2022-03-19 17:05] VITALS: PULSE 85
[2022-03-19] MEDS: Rivaroxaban 20 MG Tablet PO (17:07)
[2022-03-19] MEDS: Tamsulosin HCl 0.4 MG Capsule PO (17:08)
[2022-03-19] MEDS: Doxazosin 4 MG Tablet PO (21:46)
[2022-03-19] MEDS: MELATONIN 10 MG TABLET PO (21:46)
[2022-03-19] MEDS: Atorvastatin Calcium 20 MG Tablet PO (21:46)
[2022-03-19] MEDS: Insulin Glargine-YFGN 100 UNIT/ML Pen 50 UNIT SC (21:51)
[2022-03-19 21:55] LABS: Bedside Glucose 182 mg/dL (74-106)
[2022-03-20 06:16] VITALS: BP 138/73; PULSE 83
[2022-03-20] MEDS: Metoprolol Tartrate 50 MG Tablet 75 MG PO ×2 (06:16→17:20)
[2022-03-20] MEDS: Furosemide 80 MG Tablet PO (06:16)
[2022-03-20] MEDS: Arthritis Pain Compound 60 CLICK TUBE TOPICAL ×3 (06:17→21:28)
[2022-03-20] MEDS: traMADol 50 MG Tablet PO ×3 (06:22→21:29)
[2022-03-20 06:55] LABS: Bedside Glucose 171 mg/dL (74-106)
[2022-03-20] MEDS: Multivitamins,Therapeutic Tablet 1 TABLET PO (08:48)
[2022-03-20] MEDS: Gabapentin 600 MG Tablet PO ×3 (08:49→17:20)
[2022-03-20] MEDS: Insulin Lispro 100 UNIT/ML INSULN.PEN 20 UNIT SC ×3 (08:49→17:20)
[2022-03-20] MEDS: Menthol/Lanolin/Calamine/Znox 113 GM Tube 1 APPLIC TOPICAL ×2 (08:51→21:33)
[2022-03-20 11:35] LABS: Bedside Glucose 241 mg/dL (74-106)
[2022-03-20] MEDS: Insulin Lispro 100 UNIT/ML INSULN.PEN SC ×2 (12:38→17:21)
[2022-03-20] MEDS: Nystatin Powder 15gm Bottle 1 APPLIC TOPICAL ×2 (12:43→21:33)
[2022-03-20 15:10] VITALS: BP 131/61; PULSE 88; RESP 18; TEMP 36.4; O2SAT 92
[2022-03-20 16:40] LABS: Bedside Glucose 185 mg/dL (74-106)
[2022-03-20] MEDS: Senna/Docusate Sodium 1 Tablet PO (17:19)
[2022-03-20 17:20] VITALS: PULSE 90
[2022-03-20] MEDS: Rivaroxaban 20 MG Tablet PO (17:20)
[2022-03-20] MEDS: Tamsulosin HCl 0.4 MG Capsule PO (17:20)
[2022-03-20] MEDS: Insulin Glargine-YFGN 100 UNIT/ML Pen 50 UNIT SC (21:30)
[2022-03-20] MEDS: Atorvastatin Calcium 20 MG Tablet PO (21:31)
[2022-03-20] MEDS: tiZANidine HCl 2 MG Tablet 4 MG PO (21:31)
[2022-03-20] MEDS: Doxazosin 4 MG Tablet PO (21:31)
[2022-03-20] MEDS: MELATONIN 10 MG TABLET PO (21:32)
[2022-03-20 21:40] LABS: Bedside Glucose 251 mg/dL (74-106)
[2022-03-20 22:54] VITALS: O2SAT 96
[2022-03-21 06:07] VITALS: BP 134/70; PULSE 74
[2022-03-21] MEDS: Metoprolol Tartrate 50 MG Tablet 75 MG PO ×2 (06:07→17:59)
[2022-03-21] MEDS: Senna/Docusate Sodium 1 Tablet PO (06:08)
[2022-03-21] MEDS: Arthritis Pain Compound 60 CLICK TUBE TOPICAL ×3 (06:09→21:37)
[2022-03-21 07:20] LABS: Bedside Glucose 204 mg/dL (74-106)
[2022-03-21] MEDS: Insulin Lispro 100 UNIT/ML INSULN.PEN 20 UNIT SC ×3 (08:20→17:57)
[2022-03-21] MEDS: Insulin Lispro 100 UNIT/ML INSULN.PEN SC ×3 (08:21→17:58)
[2022-03-21] MEDS: Multivitamins,Therapeutic Tablet 1 TABLET PO (08:22)
[2022-03-21] MEDS: Gabapentin 600 MG Tablet PO ×3 (08:25→17:56)
[2022-03-21 10:05] VITALS: PULSE 75; RESP 18; O2SAT 98
[2022-03-21] MEDS: Nystatin Powder 15gm Bottle 1 APPLIC TOPICAL ×2 (10:09→21:44)
[2022-03-21] MEDS: Menthol/Lanolin/Calamine/Znox 113 GM Tube 1 APPLIC TOPICAL ×2 (10:13→21:43)
[2022-03-21] MEDS: 0.9% Saline Lock 10 ML Syringe IV (10:17)
[2022-03-21] MEDS: traMADol 50 MG Tablet PO (11:50)
[2022-03-21 11:51] LABS: Bedside Glucose 168 mg/dL (74-106)
[2022-03-21 14:00] VITALS: BP 121/63; PULSE 80; RESP 20; TEMP 36.2; O2SAT 94
[2022-03-21 16:56] LABS: Bedside Glucose 160 mg/dL (74-106)
[2022-03-21 17:59] VITALS: BP 121/63; PULSE 80
[2022-03-21] MEDS: Rivaroxaban 20 MG Tablet PO (17:59)
[2022-03-21] MEDS: Tamsulosin HCl 0.4 MG Capsule PO (17:59)
[2022-03-21] MEDS: MELATONIN 10 MG TABLET PO (21:36)
[2022-03-21] MEDS: Insulin Glargine-YFGN 100 UNIT/ML Pen 50 UNIT SC (21:36)
[2022-03-21] MEDS: tiZANidine HCl 2 MG Tablet 4 MG PO (21:36)
[2022-03-21] MEDS: Doxazosin 4 MG Tablet PO (21:36)
[2022-03-21] MEDS: Atorvastatin Calcium 20 MG Tablet PO (21:36)
[2022-03-21 22:00] LABS: Bedside Glucose 158 mg/dL (74-106)
[2022-03-22] MEDS: Arthritis Pain Compound 60 CLICK TUBE TOPICAL ×3 (05:50→20:29)
[2022-03-22 05:51] VITALS: BP 119/68; PULSE 74
[2022-03-22] MEDS: Metoprolol Tartrate 50 MG Tablet 75 MG PO ×2 (05:51→17:56)
[2022-03-22] MEDS: Furosemide 80 MG Tablet PO (05:51)
[2022-03-22 06:35] LABS: Bedside Glucose 124 mg/dL (74-106)
[2022-03-22] MEDS: Gabapentin 600 MG Tablet PO ×3 (08:08→18:02)
[2022-03-22] MEDS: Multivitamins,Therapeutic Tablet 1 TABLET PO (08:10)
[2022-03-22] MEDS: Insulin Lispro 100 UNIT/ML INSULN.PEN 20 UNIT SC ×3 (08:10→17:53)
[2022-03-22] MEDS: traMADol 50 MG Tablet PO ×2 (08:15→18:02)
--- NOTE | 2022-03-22 09:16 | NURSING ---
product development scientist notified of needing PICC placement. awaiting business transformation manager for ETA from insertion RN with product development scientist
[2022-03-22] MEDS: Nystatin Powder 15gm Bottle 1 APPLIC TOPICAL ×2 (09:27→20:32)
[2022-03-22] MEDS: Menthol/Lanolin/Calamine/Znox 113 GM Tube 1 APPLIC TOPICAL ×2 (09:27→20:29)
[2022-03-22] MEDS: 0.9% Saline Lock 10 ML Syringe IV (09:29)
--- NOTE | 2022-03-22 11:18 | NURSING ---
Fanny, customer support representative with be here by [id number], updated pt
[2022-03-22 11:20] LABS: Bedside Glucose 181 mg/dL (74-106)
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
[2022-03-22] MEDS: Insulin Lispro 100 UNIT/ML INSULN.PEN SC ×2 (11:47→17:54)
--- NOTE | 2022-03-22 13:02 | NURSING ---
Addendum entered by Rob Marina 03/22/22 13:18: PICC IN RIGHT UPPER ARM. 4 FAROESE,20 SINAI. OK TO USE PER CLINICAL HAEMATOLOGIST. RN AWARE. Original Note: CLINICAL HAEMATOLOGIST HERE AT 12;[address] A PICC IN PT.
[2022-03-22 15:24] VITALS: BP 127/51; PULSE 76; RESP 18; TEMP 35.9; O2SAT 93
[2022-03-22 16:11] LABS: Bedside Glucose 151 mg/dL (74-106)
[2022-03-22] MEDS: Tamsulosin HCl 0.4 MG Capsule PO (17:55)
[2022-03-22] MEDS: Rivaroxaban 20 MG Tablet PO (17:55)
[2022-03-22 17:56] VITALS: BP 127/51; PULSE 76
[2022-03-22] MEDS: Senna/Docusate Sodium 1 Tablet PO (17:57)
[2022-03-22] MEDS: tiZANidine HCl 2 MG Tablet 4 MG PO (20:30)
[2022-03-22] MEDS: Doxazosin 4 MG Tablet PO (20:31)
[2022-03-22] MEDS: Atorvastatin Calcium 20 MG Tablet PO (20:32)
[2022-03-22] MEDS: MELATONIN 10 MG TABLET PO (20:32)
[2022-03-22 21:41] LABS: Bedside Glucose 135 mg/dL (74-106)
[2022-03-22 22:00] LABS: Bedside Glucose 121 mg/dL (74-106)
[2022-03-22] MEDS: Insulin Glargine-YFGN 100 UNIT/ML Pen 50 UNIT SC (22:52)
[2022-03-23 05:57] VITALS: BP 133/70; PULSE 78
[2022-03-23] MEDS: Arthritis Pain Compound 60 CLICK TUBE TOPICAL ×3 (05:57→20:11)
[2022-03-23] MEDS: Metoprolol Tartrate 50 MG Tablet 75 MG PO ×2 (05:57→18:38)
[2022-03-23] MEDS: traMADol 50 MG Tablet PO ×2 (05:57→20:22)
[2022-03-23] MEDS: Furosemide 80 MG Tablet PO (05:58)
[2022-03-23] MEDS: Senna/Docusate Sodium 1 Tablet PO (05:59)
[2022-03-23 07:05] LABS: Bedside Glucose 118 mg/dL (74-106)
[2022-03-23] MEDS: Gabapentin 600 MG Tablet PO ×3 (08:00→17:54)
[2022-03-23] MEDS: Insulin Lispro 100 UNIT/ML INSULN.PEN 20 UNIT SC ×3 (08:01→17:54)
[2022-03-23] MEDS: Multivitamins,Therapeutic Tablet 1 TABLET PO (08:02)
[2022-03-23] MEDS: 0.9% Saline Lock 10 ML Syringe IV (10:30)
[2022-03-23] MEDS: Nystatin Powder 15gm Bottle 1 APPLIC TOPICAL ×2 (10:42→20:14)
[2022-03-23] MEDS: Menthol/Lanolin/Calamine/Znox 113 GM Tube 1 APPLIC TOPICAL ×2 (10:43→20:14)
[2022-03-23 11:35] LABS: Bedside Glucose 163 mg/dL (74-106)
[2022-03-23] MEDS: Insulin Lispro 100 UNIT/ML INSULN.PEN SC (12:06)
[2022-03-23 16:00] VITALS: BP 133/61; PULSE 93; RESP 14; TEMP 37.2; O2SAT 93
[2022-03-23 16:55] LABS: Bedside Glucose 115 mg/dL (74-106)
[2022-03-23] MEDS: Rivaroxaban 20 MG Tablet PO (17:53)
[2022-03-23] MEDS: Tamsulosin HCl 0.4 MG Capsule PO (17:54)
[2022-03-23 18:38] VITALS: BP 107/53; PULSE 83
[2022-03-23] MEDS: tiZANidine HCl 2 MG Tablet 4 MG PO (20:12)
[2022-03-23] MEDS: MELATONIN 10 MG TABLET PO (20:12)
[2022-03-23] MEDS: Doxazosin 4 MG Tablet PO (20:12)
[2022-03-23 20:15] VITALS: O2SAT 95
[2022-03-23] MEDS: Atorvastatin Calcium 20 MG Tablet PO (20:21)
[2022-03-23] MEDS: Insulin Glargine-YFGN 100 UNIT/ML Pen 50 UNIT SC (22:33)
[2022-03-23 23:00] LABS: Bedside Glucose 112 mg/dL (74-106)
[2022-03-24] MEDS: Arthritis Pain Compound 60 CLICK TUBE TOPICAL ×3 (06:04→20:56)
[2022-03-24] MEDS: Furosemide 80 MG Tablet PO (06:04)
[2022-03-24] MEDS: Senna/Docusate Sodium 1 Tablet PO (06:04)
[2022-03-24 06:05] VITALS: BP 134/52; PULSE 72
[2022-03-24] MEDS: Metoprolol Tartrate 50 MG Tablet 75 MG PO ×2 (06:05→17:47)
[2022-03-24 06:25] LABS: Bedside Glucose 138 mg/dL (74-106)
[2022-03-24] MEDS: Gabapentin 600 MG Tablet PO ×3 (08:20→17:54)
[2022-03-24] MEDS: Multivitamins,Therapeutic Tablet 1 TABLET PO (08:20)
[2022-03-24] MEDS: Insulin Lispro 100 UNIT/ML INSULN.PEN 20 UNIT SC ×3 (08:20→17:43)
[2022-03-24] MEDS: traMADol 50 MG Tablet PO ×2 (08:25→20:55)
[2022-03-24] MEDS: 0.9% Saline Lock 10 ML Syringe IV (09:23)
[2022-03-24] MEDS: Menthol/Lanolin/Calamine/Znox 113 GM Tube 1 APPLIC TOPICAL ×2 (09:26→20:57)
[2022-03-24] MEDS: Nystatin Powder 15gm Bottle 1 APPLIC TOPICAL ×2 (09:26→21:01)
[2022-03-24 09:38] VITALS: PULSE 73; O2SAT 94
[2022-03-24 11:10] LABS: Bedside Glucose 185 mg/dL (74-106)
[2022-03-24] MEDS: Insulin Lispro 100 UNIT/ML INSULN.PEN SC ×2 (11:58→17:43)
[2022-03-24 14:48] VITALS: BP 121/65; PULSE 81; RESP 18; TEMP 36.2; O2SAT 94
[2022-03-24 16:50] LABS: Bedside Glucose 178 mg/dL (74-106)
[2022-03-24 17:47] VITALS: BP 132/81; PULSE 89
[2022-03-24] MEDS: Tamsulosin HCl 0.4 MG Capsule PO (17:47)
[2022-03-24] MEDS: Rivaroxaban 20 MG Tablet PO (17:47)
[2022-03-24] MEDS: tiZANidine HCl 2 MG Tablet 4 MG PO (20:56)
[2022-03-24] MEDS: Doxazosin 4 MG Tablet PO (20:57)
[2022-03-24] MEDS: Insulin Glargine-YFGN 100 UNIT/ML Pen 50 UNIT SC (20:59)
[2022-03-24] MEDS: Atorvastatin Calcium 20 MG Tablet PO (21:01)
[2022-03-24] MEDS: MELATONIN 10 MG TABLET PO (21:01)
[2022-03-24 23:55] LABS: Bedside Glucose 140 mg/dL (74-106)
[2022-03-25] MEDS: Arthritis Pain Compound 60 CLICK TUBE TOPICAL ×3 (05:28→19:59)
[2022-03-25] MEDS: Furosemide 80 MG Tablet PO (05:29)
[2022-03-25] MEDS: Senna/Docusate Sodium 1 Tablet PO (05:29)
[2022-03-25 05:30] VITALS: BP 146/76; PULSE 75
[2022-03-25] MEDS: Metoprolol Tartrate 50 MG Tablet 75 MG PO ×2 (05:30→18:09)
[2022-03-25 06:35] LABS: Bedside Glucose 122 mg/dL (74-106)
[2022-03-25 07:15] LABS: Absolute Lymphocyte Count 2.49 X10^3/uL (0.83-4.51); Absolute Neutrophil Count 5.4 X10^3/uL (2.0-7.7); Basophil# 0.07 X10^3/uL; Basophil% 0.7 % (0-1); Eosinophil# 0.42 X10^3/uL; Eosinophils% 4.5 % (0-5); Hematocrit 35.7 % (40-54); Hemoglobin 11.6 g/dL (13.0-16.5); Lymphocyte # 2.49 X10^3/ul (0.83-4.51); Lymphocyte % 26.4 % (19-41); Mean Corp Hgb Conc 32.5 g/dL (32-36); Mean Corpuscular Hgb 28.4 pg (27.0-32.0); Mean Corpuscular Volume 87.3 fL (80-94); Mean Platelet Vol. 9.2 fl (6.2-12.0); Monocyte# 0.96 X10^3/uL; Monocyte% 10.2 % (0-10); NRBC Flagged by Analyzer 0 % (0-5); Neutrophil # 5.42 X10^3/uL (2.7-7.7); Neutrophil % 57.5 % (47-70); Platelet Count 266 K/mm3 (150-450); RBC Distribution Width CV 13.2 % (11.6-14.6); RBC Distribution Width SD 41.1 fl (35.1-43.9); Red Blood Count 4.09 M/mm3 (4.6-6.2); White Blood Count 9.4 K/mm3 (4.4-11.0)
[2022-03-25 07:33] LABS: Anion Gap 4 (5-15); BUN 23 mg/dL (7-18); BUN/Creat Ratio 17.6 RATIO (10-20); Calcium,Total 9.4 mg/dL (8.5-10.1); Chloride 102 mmol/L (98-107); Creatinine, Serum 1.31 mg/dL (0.70-1.30); EST Glomerular Filtration Rate 58 mL/min (>60); Est Glom Filt Rate - Afr Amer 70 mL/min (>60); Estimated Creatinine Clearance 60.06 ml/min; Glucose 133 mg/dL (74-106); Potassium 4.4 mmol/L (3.5-5.1); Sodium Level 135 mmol/L (136-145)
[2022-03-25] MEDS: Multivitamins,Therapeutic Tablet 1 TABLET PO (07:48)
[2022-03-25] MEDS: Insulin Lispro 100 UNIT/ML INSULN.PEN 20 UNIT SC ×3 (07:48→18:14)
[2022-03-25] MEDS: Gabapentin 600 MG Tablet PO ×3 (07:56→18:07)
[2022-03-25] MEDS: Nystatin Powder 15gm Bottle 1 APPLIC TOPICAL ×2 (09:49→20:03)
[2022-03-25] MEDS: Menthol/Lanolin/Calamine/Znox 113 GM Tube 1 APPLIC TOPICAL ×2 (09:49→20:00)
[2022-03-25] MEDS: 0.9% Saline Lock 10 ML Syringe IV (09:55)
[2022-03-25 11:05] LABS: Bedside Glucose 168 mg/dL (74-106)
[2022-03-25] MEDS: Insulin Lispro 100 UNIT/ML INSULN.PEN SC (11:57)
[2022-03-25 14:45] VITALS: BP 136/68; PULSE 74; RESP 18; TEMP 36.9; O2SAT 93
[2022-03-25 16:16] LABS: Bedside Glucose 109 mg/dL (74-106)
[2022-03-25 18:09] VITALS: BP 136/68; PULSE 74
[2022-03-25] MEDS: Rivaroxaban 20 MG Tablet PO (18:09)
[2022-03-25] MEDS: Tamsulosin HCl 0.4 MG Capsule PO (18:09)
[2022-03-25] MEDS: Doxazosin 4 MG Tablet PO (20:01)
[2022-03-25] MEDS: Atorvastatin Calcium 20 MG Tablet PO (20:02)
[2022-03-25] MEDS: tiZANidine HCl 2 MG Tablet 4 MG PO (20:03)
[2022-03-25] MEDS: MELATONIN 10 MG TABLET PO (20:03)
[2022-03-25] MEDS: Insulin Glargine-YFGN 100 UNIT/ML Pen 50 UNIT SC (20:08)
[2022-03-25 20:36] LABS: Bedside Glucose 154 mg/dL (74-106)
[2022-03-25 21:36] LABS: Bedside Glucose 130 mg/dL (74-106)
[2022-03-26 06:27] VITALS: BP 98/57; PULSE 99
[2022-03-26] MEDS: Arthritis Pain Compound 60 CLICK TUBE TOPICAL ×3 (06:27→21:56)
[2022-03-26] MEDS: Metoprolol Tartrate 50 MG Tablet 75 MG PO ×2 (06:27→17:21)
[2022-03-26] MEDS: Furosemide 80 MG Tablet PO (06:31)
[2022-03-26] MEDS: Insulin Lispro 100 UNIT/ML INSULN.PEN SC (06:32)
[2022-03-26 06:45] LABS: Bedside Glucose 200 mg/dL (74-106)
[2022-03-26] MEDS: Gabapentin 600 MG Tablet PO ×3 (07:47→17:21)
[2022-03-26] MEDS: Insulin Lispro 100 UNIT/ML INSULN.PEN 20 UNIT SC ×3 (07:47→17:18)
[2022-03-26] MEDS: Multivitamins,Therapeutic Tablet 1 TABLET PO (07:48)
[2022-03-26 09:10] VITALS: PULSE 93; RESP 18; O2SAT 93
[2022-03-26] MEDS: Menthol/Lanolin/Calamine/Znox 113 GM Tube 1 APPLIC TOPICAL ×2 (09:42→21:56)
[2022-03-26] MEDS: Nystatin Powder 15gm Bottle 1 APPLIC TOPICAL ×2 (09:42→21:58)
[2022-03-26] MEDS: 0.9% Saline Lock 10 ML Syringe IV (09:46)
[2022-03-26] MEDS: traMADol 50 MG Tablet PO (10:41)
[2022-03-26 11:55] LABS: Bedside Glucose 143 mg/dL (74-106)
--- NOTE | 2022-03-26 12:52 | NURSING ---
PT NOTIFIED THIS NURSE THAT TEXED PT AND CANCELLED HIS APPOINTMENT FOR 03/27/22. AND THAT OFFICE IN [place] WILL CALL PT ON 03/27/22 AND SET UP A APPOINTMENT FOR Sunday03/30/22 IN [place]. THIS NURSE SEEN THE NE AND RN AWARE.
[2022-03-26 15:35] VITALS: BP 111/70; PULSE 94; RESP 18; TEMP 36.7; O2SAT 95
[2022-03-26 16:10] LABS: Bedside Glucose 128 mg/dL (74-106)
[2022-03-26] MEDS: Tamsulosin HCl 0.4 MG Capsule PO (17:20)
[2022-03-26 17:21] VITALS: BP 111/70; PULSE 94
[2022-03-26] MEDS: Rivaroxaban 20 MG Tablet PO (17:21)
[2022-03-26] MEDS: Senna/Docusate Sodium 1 Tablet PO (17:22)
[2022-03-26 18:35] LABS: Bedside Glucose 175 mg/dL (74-106)
--- NOTE | 2022-03-26 18:46 | NURSING ---
PT COMPLAINED OF FEELING COLD AND PT WAS SHIVERING. BLOOD SUGAR CHECKED,WARM BLANKET GIVEN. RN AWARE
[2022-03-26 21:45] LABS: Bedside Glucose 166 mg/dL (74-106)
[2022-03-26] MEDS: Doxazosin 4 MG Tablet PO (21:56)
[2022-03-26] MEDS: Insulin Glargine-YFGN 100 UNIT/ML Pen 50 UNIT SC (21:57)
[2022-03-26] MEDS: Atorvastatin Calcium 20 MG Tablet PO (21:58)
[2022-03-26] MEDS: tiZANidine HCl 2 MG Tablet 4 MG PO (21:58)
[2022-03-26] MEDS: MELATONIN 10 MG TABLET PO (21:58)
[2022-03-27] MEDS: Furosemide 80 MG Tablet PO (06:25)
[2022-03-27] MEDS: Arthritis Pain Compound 60 CLICK TUBE TOPICAL ×3 (06:25→21:05)
[2022-03-27] MEDS: Senna/Docusate Sodium 1 Tablet PO ×2 (06:26→17:32)
[2022-03-27 06:30] VITALS: BP 114/61; PULSE 89
[2022-03-27] MEDS: Metoprolol Tartrate 50 MG Tablet 75 MG PO ×2 (06:30→17:38)
[2022-03-27 06:46] LABS: Bedside Glucose 122 mg/dL (74-106)
[2022-03-27] MEDS: Insulin Lispro 100 UNIT/ML INSULN.PEN 20 UNIT SC ×3 (07:55→17:32)
[2022-03-27] MEDS: Multivitamins,Therapeutic Tablet 1 TABLET PO (07:57)
[2022-03-27] MEDS: Gabapentin 600 MG Tablet PO ×3 (07:59→17:31)
[2022-03-27] MEDS: traMADol 50 MG Tablet PO ×2 (10:08→21:06)
[2022-03-27] MEDS: Nystatin Powder 15gm Bottle 1 APPLIC TOPICAL ×2 (10:19→21:08)
[2022-03-27] MEDS: Menthol/Lanolin/Calamine/Znox 113 GM Tube 1 APPLIC TOPICAL ×2 (10:50→21:06)
[2022-03-27 11:45] LABS: Bedside Glucose 201 mg/dL (74-106)
[2022-03-27] MEDS: Insulin Lispro 100 UNIT/ML INSULN.PEN SC ×2 (11:57→17:33)
--- NOTE | 2022-03-27 14:09 | WOUNDNOTE ---
wound photo: right heel
[2022-03-27 16:00] VITALS: BP 131/67; PULSE 83; RESP 18; TEMP 37.1; O2SAT 93
[2022-03-27 16:50] LABS: Bedside Glucose 151 mg/dL (74-106)
[2022-03-27] MEDS: Tamsulosin HCl 0.4 MG Capsule PO (17:29)
[2022-03-27] MEDS: Rivaroxaban 20 MG Tablet PO (17:29)
[2022-03-27 17:38] VITALS: PULSE 88
[2022-03-27] MEDS: Insulin Glargine-YFGN 100 UNIT/ML Pen 50 UNIT SC (21:05)
[2022-03-27] MEDS: Doxazosin 4 MG Tablet PO (21:06)
[2022-03-27] MEDS: Atorvastatin Calcium 20 MG Tablet PO (21:07)
[2022-03-27] MEDS: MELATONIN 10 MG TABLET PO (21:08)
[2022-03-27] MEDS: tiZANidine HCl 2 MG Tablet 4 MG PO (21:08)
[2022-03-27 21:41] LABS: Bedside Glucose 124 mg/dL (74-106)
[2022-03-27 22:00] VITALS: O2SAT 96
[2022-03-28] MEDS: Arthritis Pain Compound 60 CLICK TUBE TOPICAL ×3 (06:04→21:38)
[2022-03-28] MEDS: Furosemide 80 MG Tablet PO (06:06)
[2022-03-28 06:09] VITALS: BP 120/55; PULSE 92
[2022-03-28] MEDS: Metoprolol Tartrate 50 MG Tablet 75 MG PO ×2 (06:09→17:49)
[2022-03-28] MEDS: Senna/Docusate Sodium 1 Tablet PO ×2 (06:10→17:49)
[2022-03-28 06:31] LABS: Bedside Glucose 125 mg/dL (74-106)
[2022-03-28] MEDS: traMADol 50 MG Tablet PO ×3 (07:43→21:55)
[2022-03-28] MEDS: Gabapentin 600 MG Tablet PO ×3 (07:44→17:44)
[2022-03-28] MEDS: Multivitamins,Therapeutic Tablet 1 TABLET PO (07:45)
[2022-03-28] MEDS: Insulin Lispro 100 UNIT/ML INSULN.PEN 20 UNIT SC ×3 (07:45→17:45)
--- NOTE | 2022-03-28 09:34 | PCM.PN.ID ---
Physical Exam Narrative Knee still sore, feeling about the same. No fever, no n/v/d. Const alert and no apparent distress Resp normal air movement and clear to auscultation bilaterally Cardio regular rate and regular rhythm GI soft to palpation, non-tender and non-distended Skin Skin Narrative: L knee mild swelling, warmth, soreness ID ID: Route of nutrition/ use of supplements: [] Nutritional Intake: [] IV Site: [] Guido Catheter: [] Assessment & Plan Assessment/Plan (1) Infection of total knee replacement: PLAN: L knee MSSE PJI - Cont ceftriaxone. Sx stable. Reports rash with PCN as a child, no issue with amox since then. Planned appt with ortho at [facility] this week. Will follow
[2022-03-28] MEDS: Menthol/Lanolin/Calamine/Znox 113 GM Tube 1 APPLIC TOPICAL ×2 (09:57→21:39)
[2022-03-28] MEDS: Nystatin Powder 15gm Bottle 1 APPLIC TOPICAL ×2 (10:04→21:40)
[2022-03-28] MEDS: 0.9% Saline Lock 10 ML Syringe IV (10:06)
[2022-03-28 10:10] VITALS: PULSE 73; RESP 18; O2SAT 95
[2022-03-28 11:01] LABS: Bedside Glucose 188 mg/dL (74-106)
--- NOTE | 2022-03-28 11:09 | NURSING ---
PT AND FAMILY UPDATED ON STAFF MEMBER TESTED POSITIVE FOR COVID.
[2022-03-28] MEDS: Insulin Lispro 100 UNIT/ML INSULN.PEN SC (11:55)
[2022-03-28 15:29] VITALS: BP 107/56; PULSE 78; RESP 18; TEMP 37.4; O2SAT 95
[2022-03-28 16:50] LABS: Bedside Glucose 133 mg/dL (74-106)
[2022-03-28] MEDS: Rivaroxaban 20 MG Tablet PO (17:47)
[2022-03-28] MEDS: Tamsulosin HCl 0.4 MG Capsule PO (17:48)
[2022-03-28 17:49] VITALS: BP 107/56; PULSE 78
--- NOTE | 2022-03-28 17:52 | NURSING ---
DUE TO PT GOING TO APPOINTMENT ON 03/30/22 IN MORNING, PT IS REQUESTING NO SENOKOT ON 03/29 @1800 AND 03/30 @0600. ALSO NO LASIX ON 03/30 @ 0600.
[2022-03-28] MEDS: MELATONIN 10 MG TABLET PO (21:38)
[2022-03-28] MEDS: Doxazosin 4 MG Tablet PO (21:38)
[2022-03-28] MEDS: tiZANidine HCl 2 MG Tablet 4 MG PO (21:38)
[2022-03-28] MEDS: Atorvastatin Calcium 20 MG Tablet PO (21:39)
[2022-03-28 21:40] LABS: Bedside Glucose 109 mg/dL (74-106)
[2022-03-28] MEDS: Insulin Glargine-YFGN 100 UNIT/ML Pen 50 UNIT SC (21:49)
[2022-03-29 05:51] VITALS: BP 108/62; PULSE 88
[2022-03-29] MEDS: Arthritis Pain Compound 60 CLICK TUBE TOPICAL ×3 (05:51→20:25)
[2022-03-29] MEDS: Metoprolol Tartrate 50 MG Tablet 75 MG PO ×2 (05:51→18:00)
[2022-03-29] MEDS: Furosemide 80 MG Tablet PO (05:51)
[2022-03-29] MEDS: Senna/Docusate Sodium 1 Tablet PO (05:51)
[2022-03-29] MEDS: 0.9% Saline Lock 10 ML Syringe IV ×2 (05:58→10:05)
[2022-03-29 06:31] LABS: Bedside Glucose 130 mg/dL (74-106)
[2022-03-29] MEDS: Insulin Lispro 100 UNIT/ML INSULN.PEN 20 UNIT SC ×3 (07:42→17:59)
[2022-03-29] MEDS: Gabapentin 600 MG Tablet PO ×3 (07:42→17:54)
[2022-03-29] MEDS: Multivitamins,Therapeutic Tablet 1 TABLET PO (07:44)
[2022-03-29] MEDS: Nystatin Powder 15gm Bottle 1 APPLIC TOPICAL ×2 (10:05→22:29)
[2022-03-29 11:10] LABS: Bedside Glucose 207 mg/dL (74-106)
[2022-03-29] MEDS: Insulin Lispro 100 UNIT/ML INSULN.PEN SC (11:56)
[2022-03-29] MEDS: traMADol 50 MG Tablet PO (14:12)
[2022-03-29 14:25] VITALS: BP 117/59; PULSE 81; RESP 19; TEMP 37.7; O2SAT 96
[2022-03-29 16:16] LABS: Bedside Glucose 117 mg/dL (74-106)
[2022-03-29] MEDS: Rivaroxaban 20 MG Tablet PO (17:53)
[2022-03-29] MEDS: Tamsulosin HCl 0.4 MG Capsule PO (17:54)
[2022-03-29] MEDS: guaiFENesin 600 MG Tablet PO (17:55)
[2022-03-29 18:00] VITALS: BP 108/65; PULSE 87
[2022-03-29 20:00] VITALS: PULSE 74; RESP 18; O2SAT 90
[2022-03-29] MEDS: tiZANidine HCl 2 MG Tablet 4 MG PO (20:21)
[2022-03-29] MEDS: MELATONIN 10 MG TABLET PO (20:21)
[2022-03-29] MEDS: Atorvastatin Calcium 20 MG Tablet PO (20:21)
[2022-03-29 21:46] LABS: Bedside Glucose 135 mg/dL (74-106)
[2022-03-29] MEDS: Menthol/Lanolin/Calamine/Znox 113 GM Tube 1 APPLIC TOPICAL (22:29)
[2022-03-29] MEDS: Insulin Glargine-YFGN 100 UNIT/ML Pen 50 UNIT SC (22:29)
--- NOTE | 2022-03-30 00:01 | NURSING ---
Dressing changed to PICC line NORBERTO. Patient tolerated well. Lumen flushed, demonstrated good blood return. End cap changed. Will continue to monitor.
[2022-03-30 05:36] VITALS: BP 119/57; PULSE 71
[2022-03-30] MEDS: guaiFENesin 600 MG Tablet PO ×2 (05:36→18:00)
[2022-03-30] MEDS: Metoprolol Tartrate 50 MG Tablet 75 MG PO ×2 (05:36→18:04)
[2022-03-30 06:36] LABS: Bedside Glucose 158 mg/dL (74-106)
[2022-03-30] MEDS: Gabapentin 600 MG Tablet PO ×3 (07:43→17:57)
[2022-03-30] MEDS: Multivitamins,Therapeutic Tablet 1 TABLET PO (07:43)
--- NOTE | 2022-03-30 08:30 | NURSING ---
Pt off unit to go to appt with Daughter.
--- NOTE | 2022-03-30 09:13 | NURSING ---
Called to update Pt and Family on pt testing positive for covid with rapid test. Pt and family on their way to appt with ortho in [place]. Educated pt's that she needs to update 's office. Pt's agreed and stated she will let them know.
[2022-03-30 13:40] VITALS: BP 125/68; PULSE 73; RESP 21; TEMP 36.2
[2022-03-30] MEDS: Arthritis Pain Compound 60 CLICK TUBE TOPICAL ×2 (13:54→21:34)
[2022-03-30] MEDS: 0.9% Saline Lock 10 ML Syringe IV (13:56)
[2022-03-30] MEDS: traMADol 50 MG Tablet PO ×2 (14:51→21:33)
--- NOTE | 2022-03-30 16:21 | NURSING ---
Called Dr. Cobb's office to update on positive covid test. Spoke with heel coverer and she stated he is out of offices. Texted Dr. Cobb using [employer].
--- NOTE | 2022-03-30 16:45 | NURSING ---
Pt returned from appt no new orders at this time. Per pt and need to decide the next step regarding having antibiotic spacer placed in left Knee. Faxed Sensitivity report to [facility].
[2022-03-30 17:41] LABS: Bedside Glucose 194 mg/dL (74-106)
[2022-03-30] MEDS: Insulin Lispro 100 UNIT/ML INSULN.PEN SC (18:00)
[2022-03-30] MEDS: Insulin Lispro 100 UNIT/ML INSULN.PEN 20 UNIT SC (18:00)
[2022-03-30] MEDS: Senna/Docusate Sodium 1 Tablet PO (18:01)
[2022-03-30] MEDS: Rivaroxaban 20 MG Tablet PO (18:03)
[2022-03-30] MEDS: Tamsulosin HCl 0.4 MG Capsule PO (18:03)
[2022-03-30 18:04] VITALS: BP 116/65; PULSE 77
[2022-03-30 21:31] LABS: Bedside Glucose 136 mg/dL (74-106)
[2022-03-30] MEDS: tiZANidine HCl 2 MG Tablet 4 MG PO (21:33)
[2022-03-30] MEDS: Atorvastatin Calcium 20 MG Tablet PO (21:33)
[2022-03-30] MEDS: MELATONIN 10 MG TABLET PO (21:33)
[2022-03-30] MEDS: Doxazosin 4 MG Tablet PO (21:33)
[2022-03-30] MEDS: Menthol/Lanolin/Calamine/Znox 113 GM Tube 1 APPLIC TOPICAL (21:36)
[2022-03-30] MEDS: Nystatin Powder 15gm Bottle 1 APPLIC TOPICAL (21:37)
[2022-03-30] MEDS: Insulin Glargine-YFGN 100 UNIT/ML Pen 50 UNIT SC (21:41)
[2022-03-30 21:52] VITALS: BP 105/54; PULSE 71; RESP 16; O2SAT 95
[2022-03-31 05:41] LABS: Absolute Lymphocyte Count 2.63 X10^3/uL (0.83-4.51); Absolute Neutrophil Count 3.5 X10^3/uL (2.0-7.7); Basophil# 0.04 X10^3/uL; Basophil% 0.6 % (0-1); Eosinophil# 0.28 X10^3/uL; Hematocrit 34.9 % (40-54); Lymphocyte # 2.63 X10^3/ul (0.83-4.51); Lymphocyte % 37.5 % (19-41); Mean Corp Hgb Conc 31.5 g/dL (32-36); Mean Corpuscular Hgb 27.3 pg (27.0-32.0); Mean Corpuscular Volume 86.6 fL (80-94); Mean Platelet Vol. 9.5 fl (6.2-12.0); Monocyte# 0.57 X10^3/uL; Monocyte% 8.1 % (0-10); NRBC Flagged by Analyzer 0 % (0-5); Neutrophil # 3.46 X10^3/uL (2.7-7.7); Neutrophil % 49.4 % (47-70); Platelet Count 182 K/mm3 (150-450); RBC Distribution Width CV 13.3 % (11.6-14.6); RBC Distribution Width SD 42.2 fl (35.1-43.9); Red Blood Count 4.03 M/mm3 (4.6-6.2)
[2022-03-31 06:11] LABS: Anion Gap 5 (5-15); BUN 29 mg/dL (7-18); Calcium,Total 8.5 mg/dL (8.5-10.1); Chloride 105 mmol/L (98-107); Creatinine, Serum 1.32 mg/dL (0.70-1.30); EST Glomerular Filtration Rate 58 mL/min (>60); Est Glom Filt Rate - Afr Amer 70 mL/min (>60); Glucose 119 mg/dL (74-106); Potassium 4.2 mmol/L (3.5-5.1); Sodium Level 137 mmol/L (136-145)
[2022-03-31 06:35] LABS: Bedside Glucose 118 mg/dL (74-106)
[2022-03-31] MEDS: Furosemide 80 MG Tablet PO (07:02)
[2022-03-31] MEDS: guaiFENesin 600 MG Tablet PO ×2 (07:02→20:04)
[2022-03-31] MEDS: Arthritis Pain Compound 60 CLICK TUBE TOPICAL ×3 (07:03→20:12)
[2022-03-31 07:04] VITALS: BP 107/56; PULSE 76
[2022-03-31] MEDS: Metoprolol Tartrate 50 MG Tablet 75 MG PO ×2 (07:04→20:07)
[2022-03-31] MEDS: 0.9% Saline Lock 10 ML Syringe IV ×3 (07:10→12:04)
[2022-03-31] MEDS: Gabapentin 600 MG Tablet PO ×3 (10:57→20:02)
[2022-03-31] MEDS: Menthol/Lanolin/Calamine/Znox 113 GM Tube 1 APPLIC TOPICAL ×2 (11:00→22:05)
[2022-03-31] MEDS: Nystatin Powder 15gm Bottle 1 APPLIC TOPICAL ×2 (11:01→22:06)
[2022-03-31 11:20] LABS: Bedside Glucose 217 mg/dL (74-106)
[2022-03-31] MEDS: Insulin Lispro 100 UNIT/ML INSULN.PEN 20 UNIT SC ×2 (12:08→17:28)
[2022-03-31] MEDS: Insulin Lispro 100 UNIT/ML INSULN.PEN SC (12:08)
[2022-03-31] MEDS: traMADol 50 MG Tablet PO ×2 (12:25→20:02)
[2022-03-31] MEDS: Multivitamins,Therapeutic Tablet 1 TABLET PO (12:51)
[2022-03-31 16:00] VITALS: BP 135/65; PULSE 82; RESP 20; TEMP 36.8; O2SAT 97
[2022-03-31 16:50] LABS: Bedside Glucose 131 mg/dL (74-106)
[2022-03-31] MEDS: Senna/Docusate Sodium 1 Tablet PO (17:31)
[2022-03-31] MEDS: Tamsulosin HCl 0.4 MG Capsule PO (20:02)
[2022-03-31] MEDS: Rivaroxaban 20 MG Tablet PO (20:02)
[2022-03-31] MEDS: tiZANidine HCl 2 MG Tablet 4 MG PO (20:03)
[2022-03-31] MEDS: MELATONIN 10 MG TABLET PO (20:03)
[2022-03-31] MEDS: Atorvastatin Calcium 20 MG Tablet PO (20:04)
[2022-03-31] MEDS: Doxazosin 4 MG Tablet PO (20:04)
[2022-03-31 20:07] VITALS: BP 135/65; PULSE 82
[2022-03-31 22:00] VITALS: PULSE 66; RESP 16; O2SAT 96
[2022-03-31 22:01] LABS: Bedside Glucose 110 mg/dL (74-106)
[2022-03-31] MEDS: Insulin Glargine-YFGN 100 UNIT/ML Pen 50 UNIT SC (22:07)
[2022-04-01] MEDS: guaiFENesin 600 MG Tablet PO ×2 (05:13→17:53)
[2022-04-01] MEDS: Furosemide 80 MG Tablet PO (05:13)
[2022-04-01] MEDS: Senna/Docusate Sodium 1 Tablet PO (05:13)
[2022-04-01] MEDS: Arthritis Pain Compound 60 CLICK TUBE TOPICAL ×3 (05:13→21:39)
[2022-04-01] MEDS: 0.9% Saline Lock 10 ML Syringe IV ×2 (05:15→11:55)
[2022-04-01 05:19] VITALS: BP 107/58; PULSE 64
[2022-04-01] MEDS: Metoprolol Tartrate 50 MG Tablet 75 MG PO (05:19)
[2022-04-01 07:16] LABS: Bedside Glucose 154 mg/dL (74-106)
[2022-04-01] MEDS: Multivitamins,Therapeutic Tablet 1 TABLET PO (08:28)
[2022-04-01] MEDS: Gabapentin 600 MG Tablet PO ×3 (08:28→18:12)
[2022-04-01] MEDS: Insulin Lispro 100 UNIT/ML INSULN.PEN 20 UNIT SC ×3 (08:32→17:54)
[2022-04-01] MEDS: Insulin Lispro 100 UNIT/ML INSULN.PEN SC (08:32)
[2022-04-01] MEDS: traMADol 50 MG Tablet PO ×2 (08:37→17:56)
[2022-04-01 11:56] LABS: Bedside Glucose 126 mg/dL (74-106)
[2022-04-01] MEDS: Menthol/Lanolin/Calamine/Znox 113 GM Tube 1 APPLIC TOPICAL ×2 (11:58→21:17)
[2022-04-01] MEDS: Nystatin Powder 15gm Bottle 1 APPLIC TOPICAL ×2 (11:59→21:40)
[2022-04-01 16:00] VITALS: BP 109/44; RESP 16; TEMP 37.1
[2022-04-01 17:05] LABS: Bedside Glucose 125 mg/dL (74-106)
[2022-04-01] MEDS: Rivaroxaban 20 MG Tablet PO (17:53)
[2022-04-01] MEDS: Tamsulosin HCl 0.4 MG Capsule PO (17:54)
[2022-04-01 18:11] VITALS: BP 100/55; PULSE 68
[2022-04-01 19:40] VITALS: O2SAT 93
[2022-04-01] MEDS: tiZANidine HCl 2 MG Tablet 4 MG PO (21:17)
[2022-04-01] MEDS: Doxazosin 4 MG Tablet PO (21:18)
[2022-04-01] MEDS: Atorvastatin Calcium 20 MG Tablet PO (21:18)
[2022-04-01] MEDS: MELATONIN 10 MG TABLET PO (21:18)
[2022-04-01] MEDS: Insulin Glargine-YFGN 100 UNIT/ML Pen 50 UNIT SC (21:40)
[2022-04-01 22:06] LABS: Bedside Glucose 136 mg/dL (74-106)
[2022-04-02] MEDS: Furosemide 80 MG Tablet PO (06:06)
[2022-04-02] MEDS: guaiFENesin 600 MG Tablet PO ×2 (06:06→18:00)
[2022-04-02] MEDS: Senna/Docusate Sodium 1 Tablet PO (06:07)
[2022-04-02] MEDS: traMADol 50 MG Tablet PO ×2 (06:23→21:13)
[2022-04-02 06:24] VITALS: BP 130/65; PULSE 72
[2022-04-02] MEDS: Metoprolol Tartrate 50 MG Tablet 75 MG PO (06:24)
[2022-04-02] MEDS: Arthritis Pain Compound 60 CLICK TUBE TOPICAL ×3 (06:24→21:29)
[2022-04-02 06:45] LABS: Bedside Glucose 110 mg/dL (74-106)
[2022-04-02] MEDS: Multivitamins,Therapeutic Tablet 1 TABLET PO (08:06)
[2022-04-02] MEDS: Insulin Lispro 100 UNIT/ML INSULN.PEN 20 UNIT SC ×2 (08:07→12:17)
[2022-04-02] MEDS: Gabapentin 600 MG Tablet PO ×3 (08:08→18:01)
[2022-04-02] MEDS: Nystatin Powder 15gm Bottle 1 APPLIC TOPICAL ×2 (10:48→21:29)
[2022-04-02] MEDS: Menthol/Lanolin/Calamine/Znox 113 GM Tube 1 APPLIC TOPICAL ×2 (10:48→21:29)
[2022-04-02] MEDS: 0.9% Saline Lock 10 ML Syringe IV (10:49)
[2022-04-02 11:50] LABS: Bedside Glucose 189 mg/dL (74-106)
[2022-04-02] MEDS: Insulin Lispro 100 UNIT/ML INSULN.PEN SC (12:19)
[2022-04-02 16:00] VITALS: BP 116/54; PULSE 70; RESP 16; TEMP 37; O2SAT 92
[2022-04-02] MEDS: Rivaroxaban 20 MG Tablet PO (17:59)
[2022-04-02] MEDS: Tamsulosin HCl 0.4 MG Capsule PO (18:00)
[2022-04-02 18:10] LABS: Bedside Glucose 92 mg/dL (74-106)
[2022-04-02 18:19] VITALS: BP 99/45; PULSE 67
[2022-04-02] MEDS: MELATONIN 10 MG TABLET PO (21:05)
[2022-04-02] MEDS: Doxazosin 4 MG Tablet PO (21:05)
[2022-04-02] MEDS: Atorvastatin Calcium 20 MG Tablet PO (21:05)
[2022-04-02] MEDS: tiZANidine HCl 2 MG Tablet 4 MG PO (21:05)
[2022-04-02] MEDS: Insulin Glargine-YFGN 100 UNIT/ML Pen 50 UNIT SC (21:29)
[2022-04-02 21:46] LABS: Bedside Glucose 174 mg/dL (74-106)
[2022-04-03] MEDS: Furosemide 80 MG Tablet PO (06:10)
[2022-04-03] MEDS: guaiFENesin 600 MG Tablet PO ×2 (06:11→17:39)
[2022-04-03] MEDS: Senna/Docusate Sodium 1 Tablet PO (06:11)
[2022-04-03 06:20] VITALS: BP 109/59; PULSE 72
[2022-04-03] MEDS: Arthritis Pain Compound 60 CLICK TUBE TOPICAL ×3 (06:20→21:14)
[2022-04-03] MEDS: Metoprolol Tartrate 50 MG Tablet 75 MG PO ×2 (06:20→17:39)
[2022-04-03 06:36] LABS: Bedside Glucose 125 mg/dL (74-106)
[2022-04-03] MEDS: Multivitamins,Therapeutic Tablet 1 TABLET PO (08:25)
[2022-04-03] MEDS: Gabapentin 600 MG Tablet PO ×3 (08:25→17:40)
[2022-04-03] MEDS: Insulin Lispro 100 UNIT/ML INSULN.PEN 20 UNIT SC ×3 (08:32→17:44)
[2022-04-03 10:00] VITALS: PULSE 70; RESP 18
[2022-04-03] MEDS: 0.9% Saline Lock 10 ML Syringe IV (11:08)
[2022-04-03] MEDS: Menthol/Lanolin/Calamine/Znox 113 GM Tube 1 APPLIC TOPICAL ×2 (11:08→21:13)
[2022-04-03] MEDS: Nystatin Powder 15gm Bottle 1 APPLIC TOPICAL ×2 (11:08→21:10)
[2022-04-03 11:46] LABS: Bedside Glucose 146 mg/dL (74-106)
[2022-04-03 15:08] VITALS: BP 107/64; PULSE 73; RESP 18; TEMP 36.9; O2SAT 94
--- NOTE | 2022-04-03 16:08 | NURSING ---
Left message for Dr. Sanders office to see when surgery can be scheduled to have spacer placed.
[2022-04-03 16:10] LABS: Bedside Glucose 104 mg/dL (74-106)
[2022-04-03 17:39] VITALS: PULSE 73
[2022-04-03] MEDS: Rivaroxaban 20 MG Tablet PO (17:39)
[2022-04-03] MEDS: Tamsulosin HCl 0.4 MG Capsule PO (17:40)
--- NOTE | 2022-04-03 19:05 | PN.TCU_ITS ---
Subjective Subjective Resident seen, examined for regulatory visit. 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 Cobb's help. Resident has been seen by [facility], resident willing to undergo left prosthetic knee explant, antibiotic spacer placement, waiting for [facility] to schedule. Resident has no new problems, complaints. Objective Data Objective Data Vital Signs: Vital Signs Temp Pulse Resp BP Pulse Ox O2 Del Method O2 Flow Rate 98.4 F 73 18 107/64 94 Room Air 2 04/03/22 15:08 04/03/22 17:39 04/03/22 15:08 04/03/22 15:08 04/03/22 15:08 04/03/22 15:08 03/30/22 21:52 Oxygen Flow Rate (L/min) 2 Oxygen Delivery Method Room Air Weight: 158.848 kg Body Mass Index (BMI) 51.0 Intake & Output: Intake and Output for Last 24 Hours 04/01/22 04/02/22 04/03/22 23:59 23:59 23:59 Intake Total 890 / 890 1130 / 1130 1190.25 / 1190.25 Balance 890 / 890 1130 / 1130 1190.25 / 1190.25 Lab / Micro Data Result Diagrams: 03/31/22 05:25 03/31/22 05:25 Labs: Laboratory Results - last 24 hr 04/02/22 21:25: POC Glucose 174 H 04/03/22 06:15: POC Glucose 125 H 04/03/22 11:21: POC Glucose 146 H 04/03/22 15:51: POC Glucose 104 Micro: Microbiology 03/30/22 05:40 Nasal Secretion SARS-CoV-2 Antigen (Rapid) - Final SARS-CoV-2 (COVID 19) 03/23/22 14:30 Nasal Secretion SARS-CoV-2 Antigen (Rapid) - Final 03/16/22 08:24 Nasal Secretion SARS-CoV-2 Antigen (Rapid) - Final 03/12/22 20:25 Urine, Catheterized Urine Culture - Final Culture exhibits no growth. 03/10/22 07:20 Fluid - Synovial (joint) Gram Stain - Final 03/10/22 07:20 Fluid - Synovial (joint) Body Fluid Culture - Final Staphylococcus epidermidis 03/10/22 07:20 Fluid - Synovial (joint) Anaerobic Culture - Final No anaerobic bacteria isolated. 03/08/22 12:45 Fluid - Synovial (joint) Gram Stain - Final 03/08/22 12:45 Fluid - Synovial (joint) Body Fluid Culture - Final Staphylococcus epidermidis 03/08/22 12:45 Fluid - Synovial (joint) Anaerobic Culture - Final No anaerobic bacteria isolated. 03/09/22 05:05 Nasal Secretion SARS-CoV-2 Antigen (Rapid) - Final 03/03/22 14:56 Nasal Secretion SARS-CoV-2 Antigen (Rapid) - Final Physical Exam Const alert General Appearance: cooperative HEENT normocephalic Eyes PERRL and EOMs intact bilaterally Neck supple, no JVD and no carotid bruits Resp normal respiratory effort, normal air movement and clear to auscultation bilaterally Cardio regular rate and regular rhythm GI normal to inspection, nondistended, normoactive bowel sounds, non-tender and non-distended Extremity normal capillary refill Extremity Narrative: Right upper extremity PICC line. General Extremity: Negative for edema Skin no rashes or lesions noted General Skin Exam: no breakdown Psych affect normal Appearance: appropriate Assessment & Plan Assessment/Plan (1) Debility: (2) Lower extremity edema: (3) Encephalopathy: (4) Acute kidney injury: (5) Lymphedema: (6) History of deep vein thrombosis: (7) History of pulmonary embolism: (8) Hypertension: (9) Diabetes mellitus: (10) Muscle spasm: (11) Diabetic polyneuropathy: (12) Benign prostatic hyperplasia: (13) Body mass index (BMI) greater than 50: PLAN: Plan 66 year old male with below past medical history hospitalized for acute encephalopathy, complicated by acute kidney injury, lymphedema, cellulitis ruled out, admittted to TCU with debility, here for rehabilitation, strengthening, prior to discharge home with . Resident has left MSSE prosthetic knee joint infection. * Debility - PT/OT. * Pain - Arthritis Compound 2 click topical tid, Tramadol 50mg q6h prn. * Bowel - Senna/colace 1 tablets bid, Dulcolax 10mg daily prn. * Adult immunization - Administer pneumonia vaccine, covid19 vaccine, flu vaccine. * DVT prophylaxis - Not necessary, Xarelto 20mg daily. * Methicillin Sensitive Staph Epi left prosthetic knee infection - Dr. Cobb , Ceftriaxone 2gm iv q24h, [facility] to schedule explant, ATB spacer placement surgery. * Shortness of breath - Albuterol 2 puff q6h prn. * Hyperlipidemia - Atorvastatin 20mg qhs. * BPH - Doxazosin 4mg qhs. * Skin irritation - Eucerin topical qhs, Calmoseptine topical bid. * Lymphedema - Furosemide 80mg daily, compression. * Diabetic polyneuropathy - Gabapentin 600mg tidcm. * Diabetes Mellitus II - Glargine 50 units qhs, Humalog 20 units, 20 units, 20 units. * Insomnia - Melatonin 10mg qhs. * Hypertension - Metoprolol 75mg bid. * Nutrition - MVI daily. * Tinea Corporis - Nystatin powder topical bid. * Pulmonary embolism, recurrent - Xarelto 20mg daily. * Muscle spasm - Tizanidine 4mg q8h prn, 4mg qhs. * Zinc deficiency - Zinc 220mg daily. * BPH - Tamsulosin 0.4mg daily. Capacity Capacity Assessment Tool Can the patient make a choice & communicate that choice?: Yes Can the patient understand benefits, risks and alternatives?: Yes Can the patient make a logical, rational choice?: Yes Is the choice the patient makes consistent w/ their values?: Yes Is there an impending, emergent risk to the patient?: Yes Does the patient have an Advance Directive?: No Is there a Surrogate Available?: Yes i.e. HCPOA: Yes i.e. close relative (spouse, child, parent, sibling)?: Yes
[2022-04-03] MEDS: Atorvastatin Calcium 20 MG Tablet PO (21:09)
[2022-04-03] MEDS: MELATONIN 10 MG TABLET PO (21:09)
[2022-04-03] MEDS: tiZANidine HCl 2 MG Tablet 4 MG PO (21:09)
[2022-04-03] MEDS: Doxazosin 4 MG Tablet PO (21:09)
[2022-04-03] MEDS: Insulin Glargine-YFGN 100 UNIT/ML Pen 50 UNIT SC (21:14)
[2022-04-03 21:45] LABS: Bedside Glucose 143 mg/dL (74-106)
[2022-04-04] MEDS: 0.9% Saline Lock 10 ML Syringe IV (06:32)
[2022-04-04] MEDS: guaiFENesin 600 MG Tablet PO ×2 (06:32→17:48)
[2022-04-04] MEDS: Furosemide 80 MG Tablet PO (06:32)
[2022-04-04 06:35] VITALS: BP 108/62; PULSE 71
[2022-04-04] MEDS: Metoprolol Tartrate 50 MG Tablet 75 MG PO ×2 (06:35→18:01)
[2022-04-04] MEDS: Arthritis Pain Compound 60 CLICK TUBE TOPICAL ×3 (06:37→22:18)
[2022-04-04 06:40] LABS: Bedside Glucose 136 mg/dL (74-106)
[2022-04-04] MEDS: Multivitamins,Therapeutic Tablet 1 TABLET PO (08:04)
[2022-04-04] MEDS: Gabapentin 600 MG Tablet PO ×3 (08:04→18:01)
[2022-04-04] MEDS: Insulin Lispro 100 UNIT/ML INSULN.PEN 20 UNIT SC ×3 (08:10→17:58)
[2022-04-04] MEDS: Nystatin Powder 15gm Bottle 1 APPLIC TOPICAL ×2 (10:07→22:19)
[2022-04-04] MEDS: Menthol/Lanolin/Calamine/Znox 113 GM Tube 1 APPLIC TOPICAL ×2 (10:07→22:18)
--- NOTE | 2022-04-04 10:38 | NURSING ---
Family updated on staff member testing positive for covid.
[2022-04-04 11:20] LABS: Bedside Glucose 191 mg/dL (74-106)
--- NOTE | 2022-04-04 11:39 | NURSING ---
CALLED PT AND ASKED IF SHE HAS HEARD ANY THING ON WHEN PT WILL BE HAVING SURGERY ON LEFT KNEE. STATED SHE TALKED TO A CHEMA FROM OFFICE AND STATED THEY WOULD GET IN TOUCH WITH HER ON A DATE TO HAVE SURGERY SOME TIME IN . ASKED TO PLEASE KEEP US UPDATED SO WE KNOW HOW TO PROCIDE. STATED SHE WOULD LET US KNOW.
[2022-04-04] MEDS: Insulin Lispro 100 UNIT/ML INSULN.PEN SC (11:45)
--- NOTE | 2022-04-04 12:15 | CASEMGMT ---
Social Work BIMS () and PHQ-9 (03/08) completed for MDS assessment. Score indicates mild depression. Explored positive responses. Pt reports issues staying asleep r/t discomfort from bed. SW notified nursing for possible replacement mattress or additional padding. Pt reports to having little energy r/t positive COVID. When asked if pt felt bad about self or a failure to family, pt answered 'no' but became emotional. SW inquired about reason for emotion. Pt explained d/t COVID isolation and being sick isolating self at home, pt misses his and family visiting. SW validated feelings. Suggested video calls and offered this isolation period is temporary. Offered in-room activities options, pt denied. SW offered to provide supportive phone calls or visits as pt needs. Pt appreciative. Qing Rascon MSW THERMIT WELDING MACHINE OPERATOR
[2022-04-04 13:46] VITALS: BP 108/56; PULSE 75; RESP 18; TEMP 36.5; O2SAT 99
[2022-04-04 17:26] LABS: Bedside Glucose 120 mg/dL (74-106)
[2022-04-04] MEDS: Tamsulosin HCl 0.4 MG Capsule PO (17:47)
[2022-04-04] MEDS: Rivaroxaban 20 MG Tablet PO (17:47)
[2022-04-04] MEDS: Senna/Docusate Sodium 1 Tablet PO (17:49)
[2022-04-04 18:01] VITALS: BP 115/65; PULSE 87
[2022-04-04 21:45] LABS: Bedside Glucose 122 mg/dL (74-106)
[2022-04-04] MEDS: MELATONIN 10 MG TABLET PO (22:19)
[2022-04-04] MEDS: Atorvastatin Calcium 20 MG Tablet PO (22:19)
[2022-04-04] MEDS: Doxazosin 4 MG Tablet PO (22:19)
[2022-04-04] MEDS: tiZANidine HCl 2 MG Tablet 4 MG PO (22:20)
[2022-04-04] MEDS: Insulin Glargine-YFGN 100 UNIT/ML Pen 50 UNIT SC (22:20)
[2022-04-04 22:32] VITALS: PULSE 77; RESP 18
[2022-04-05] MEDS: Arthritis Pain Compound 60 CLICK TUBE TOPICAL ×3 (05:46→22:29)
[2022-04-05] MEDS: Senna/Docusate Sodium 1 Tablet PO (05:47)
[2022-04-05] MEDS: guaiFENesin 600 MG Tablet PO ×2 (05:47→18:42)
[2022-04-05] MEDS: Furosemide 80 MG Tablet PO (05:47)
[2022-04-05 05:50] VITALS: BP 112/69; PULSE 65
[2022-04-05] MEDS: Metoprolol Tartrate 50 MG Tablet 75 MG PO (05:50)
[2022-04-05 06:30] LABS: Bedside Glucose 103 mg/dL (74-106)
--- NOTE | 2022-04-05 07:24 | MDS.RN ---
Information for the mds was obtained from review of the clinical record, interview of resident, staff, and direct observation of resident's care.
[2022-04-05] MEDS: Gabapentin 600 MG Tablet PO ×3 (07:55→18:42)
[2022-04-05] MEDS: Multivitamins,Therapeutic Tablet 1 TABLET PO (07:55)
[2022-04-05] MEDS: 0.9% Saline Lock 10 ML Syringe IV (09:48)
[2022-04-05] MEDS: Nystatin Powder 15gm Bottle 1 APPLIC TOPICAL ×2 (09:49→22:28)
[2022-04-05] MEDS: Menthol/Lanolin/Calamine/Znox 113 GM Tube 1 APPLIC TOPICAL ×2 (10:03→22:31)
[2022-04-05 11:20] LABS: Bedside Glucose 196 mg/dL (74-106)
[2022-04-05] MEDS: Loperamide 2 MG Capsule PO (12:35)
[2022-04-05] MEDS: Insulin Lispro 100 UNIT/ML INSULN.PEN 20 UNIT SC ×2 (12:36→18:43)
[2022-04-05] MEDS: Insulin Lispro 100 UNIT/ML INSULN.PEN SC (12:36)
[2022-04-05 17:36] LABS: Bedside Glucose 122 mg/dL (74-106)
[2022-04-05] MEDS: Tamsulosin HCl 0.4 MG Capsule PO (18:42)
[2022-04-05] MEDS: Rivaroxaban 20 MG Tablet PO (18:42)
[2022-04-05 18:43] VITALS: BP 100/55; PULSE 79
[2022-04-05 18:53] VITALS: BP 100/55; PULSE 79; RESP 20; TEMP 36.9; O2SAT 93
--- NOTE | 2022-04-05 19:33 | NURSING ---
Pt. senior outside sales representative (Shabana) notified of covid positive patient via telephone per policy
[2022-04-05 21:41] LABS: Bedside Glucose 133 mg/dL (74-106)
[2022-04-05] MEDS: MELATONIN 10 MG TABLET PO (22:27)
[2022-04-05] MEDS: Atorvastatin Calcium 20 MG Tablet PO (22:28)
[2022-04-05] MEDS: tiZANidine HCl 2 MG Tablet 4 MG PO (22:28)
[2022-04-05] MEDS: Doxazosin 4 MG Tablet PO (22:28)
[2022-04-05] MEDS: Insulin Glargine-YFGN 100 UNIT/ML Pen 50 UNIT SC (22:32)
[2022-04-06 06:27] VITALS: BP 131/88; PULSE 92
[2022-04-06] MEDS: Arthritis Pain Compound 60 CLICK TUBE TOPICAL ×3 (06:27→21:11)
[2022-04-06] MEDS: Furosemide 80 MG Tablet PO (06:27)
[2022-04-06] MEDS: guaiFENesin 600 MG Tablet PO ×2 (06:27→17:51)
[2022-04-06] MEDS: Metoprolol Tartrate 50 MG Tablet 75 MG PO ×2 (06:27→18:02)
[2022-04-06] MEDS: Senna/Docusate Sodium 1 Tablet PO (06:31)
[2022-04-06] MEDS: 0.9% Saline Lock 10 ML Syringe IV ×3 (06:32→14:00)
[2022-04-06 06:50] LABS: Bedside Glucose 122 mg/dL (74-106)
[2022-04-06] MEDS: Nystatin Powder 15gm Bottle 1 APPLIC TOPICAL ×2 (08:27→21:13)
[2022-04-06] MEDS: Gabapentin 600 MG Tablet PO ×3 (08:27→17:52)
[2022-04-06] MEDS: Menthol/Lanolin/Calamine/Znox 113 GM Tube 1 APPLIC TOPICAL ×2 (08:27→21:11)
[2022-04-06] MEDS: Multivitamins,Therapeutic Tablet 1 TABLET PO (08:27)
[2022-04-06] MEDS: Insulin Lispro 100 UNIT/ML INSULN.PEN 20 UNIT SC ×2 (08:28→11:49)
[2022-04-06 11:05] LABS: Bedside Glucose 172 mg/dL (74-106)
[2022-04-06] MEDS: Insulin Lispro 100 UNIT/ML INSULN.PEN SC (11:49)
--- NOTE | 2022-04-06 15:05 | PCM.PN.DRR ---
TCU RX Drug Regimen Review Subjective: Monthly medication list review. Patient admitted in February and is not anticipated to be discharged in March. Objective: Allergies Penicillins Allergy (Unknown, Verified 02/22/22 20:03) Hives erythromycin base [Erythromycin Base] Adverse Reaction (Verified 02/22/22 20:03) Nausea Current Medications Generic Name Dose Route Start Last Admin Trade Name Freq PRN Reason Stop Dose Admin Albuterol Sulfate 2 puff 02/24/22 15:40 Albuterol Sulfate 8 Gm Inhaler (60 Puffs) INHALATION Q6H PRN PRN SHORTNESS OF BREATH Atorvastatin Calcium 20 mg 02/24/22 22:00 04/05/22 22:28 Atorvastatin Calcium 20 Mg Tablet PO 20 mg QHS ANI Administration Bisacodyl 10 mg 02/24/22 18:48 02/25/22 05:36 Bisacodyl 5 Mg Tablet PO 10 mg DAILY PRN Administration CONSTIPATION Calamine/Phenol 1 applic 03/13/22 22:00 04/06/22 08:27 Menthol/Lanolin/Calamine/Znox 113 Gm Tube TOPICAL 1 applic 1000,2200 ANI Administration Protocol Compound Med 2 click 03/06/22 14:00 04/06/22 11:48 Arthritis Pain Compound 60 Click Tube TOPICAL 2 click TID ANI Administration Protocol Doxazosin Mesylate 4 mg 02/24/22 22:00 04/05/22 22:28 Doxazosin 4 Mg Tablet PO 4 mg QHS ANI Administration Emollient Ointment 1 applic 02/24/22 22:00 04/05/22 22:28 Emollient Combination No.72 500 Ml Lotion TOPICAL 1 applic QHS ANI Administration Protocol Furosemide 80 mg 02/25/22 06:00 04/06/22 06:27 Furosemide 80 Mg Tablet PO 80 mg DAILY ANI Administration Gabapentin 600 mg 02/24/22 17:45 04/06/22 11:47 Gabapentin 600 Mg Tablet PO 600 mg TIDCM ANI Administration Guaifenesin 600 mg 03/29/22 18:00 04/06/22 06:27 Guaifenesin 600 Mg Tablet PO 600 mg BID ANI Administration Ceftriaxone Sodium 2 gm/ 50 mls @ 100 mls/hr 03/13/22 16:30 04/06/22 14:22 Sodium Chloride IV Infused Q24 ANI Infusion Sodium Chloride 250 mls @ 15 mls/hr 03/13/22 16:32 04/03/22 15:09 IV 0 mls/hr .[id number] PRN Infusion Saline Flush Sodium Chloride 250 mls @ 15 mls/hr 03/13/22 16:32 IV .[id number] PRN Additional IVPB Infusion Insulin Glargine 50 unit 03/02/22 22:00 04/05/22 22:32 Insulin Glargine-Yfgn 100 Unit/Ml Pen SC 50 unit QHS ANI Administration Insulin Human Lispro 20 unit 02/25/22 08:00 04/06/22 08:28 Insulin Lispro 100 Unit/Ml Insuln.Pen SC 20 u BREAKFAST ANI Administration Insulin Human Lispro 20 unit 02/25/22 12:00 04/06/22 11:49 Insulin Lispro 100 Unit/Ml Insuln.Pen SC 20 u LUNCH ANI Administration Insulin Human Lispro 20 unit 03/02/22 17:00 04/05/22 18:43 Insulin Lispro 100 Unit/Ml Insuln.Pen SC 20 units DINNER [facility] Administration Insulin Human Lispro 0 unit 03/04/22 16:45 04/06/22 11:49 Insulin Lispro 100 Unit/Ml Insuln.Pen SC 1 u TIDAC [facility] Administration Protocol Lactobacillus Acidophilus 1 tablet 04/05/22 18:00 04/06/22 06:27 Lactobacillus Acidophilus PO 1 tablet BID ANI Administration Loperamide HCl 2 mg 04/05/22 12:01 04/05/22 12:35 Loperamide 2 Mg Capsule PO 2 mg Q2H PRN PRN Administration DIARRHEA/LOOSE STOOLS Melatonin 10 mg 02/27/22 22:00 04/05/22 22:27 Melatonin 10 Mg Tablet PO 10 mg QHS [facility] Administration Metoprolol Tartrate 75 mg 02/24/22 18:00 04/06/22 06:27 Metoprolol Tartrate 50 Mg Tablet PO 75 mg BID [facility] Administration Multivitamins 1 tablet 02/25/22 08:00 04/06/22 08:27 Multivitamins,Therapeutic Tablet PO 1 tablet DAILYCM [facility] Administration Nystatin 1 applic 03/13/22 22:00 04/06/22 08:27 Nystatin Powder 15gm Bottle TOPICAL 1 applic 1000,2200 [facility] Administration Protocol Rivaroxaban 20 mg 02/24/22 17:00 04/05/22 18:42 Rivaroxaban 20 Mg Tablet PO 20 mg DINNER ANI Administration Senna/Docusate Sodium 1 tablet 03/08/22 18:00 04/06/22 06:31 Senna/Docusate Sodium 1 Tablet PO 1 tablet BID ANI Administration Sodium Chloride 10 - 40 ml 02/24/22 15:42 04/06/22 14:00 0.9% Saline Lock 10 Ml Syringe IV 10 ml UD PRN Administration SALINE FLUSH Sodium Chloride 10 - 40 ml 03/13/22 18:30 0.9% Saline Lock 10 Ml Syringe IV UD PRN SALINE FLUSH Tamsulosin HCl 0.4 mg 02/25/22 17:30 04/05/22 18:42 Tamsulosin Hcl 0.4 Mg Capsule PO 0.4 mg DAILY@1730 ANI Administration Tizanidine HCl 4 mg 02/24/22 17:02 03/19/22 11:30 Tizanidine Hcl 2 Mg Tablet PO 4 mg Q8H PRN PRN Administration MUSCLE SPASMS Tizanidine HCl 4 mg 03/07/22 22:00 04/05/22 22:28 Tizanidine Hcl 2 Mg Tablet PO 4 mg QHS ANI Administration Tramadol HCl 0 mg 03/06/22 10:57 04/02/22 21:13 Tramadol 50 Mg Tablet PO 100 mg Q6H PRN PRN Administration Pain Score 4-10 Zinc Sulfate 220 mg 02/25/22 06:00 04/06/22 06:27 Zinc Sulfate (50mg Elemental) 220 Mg Capsule PO 220 mg DAILY ANI Administration Problem List (Last Reviewed 03/13/22 @ 15:[address] Gm Cobb MD) Infection of total knee replacement (Acute) Gout of knee (Acute) History of total knee arthroplasty (Acute) Effusion of left knee joint (Acute) History of total knee arthroplasty (Acute) Hyponatremia (Acute) Hyperuricemia (Acute) Acute gouty arthritis (Acute) Confusion (Acute) Suprapatellar bursitis of left knee (Acute) Left knee pain (Acute) Body mass index (BMI) greater than 50 (Acute) Benign prostatic hyperplasia (Acute) Diabetic polyneuropathy (Acute) Muscle spasm (Acute) Diabetes mellitus (Acute) Hypertension (Chronic) History of pulmonary embolism (Acute) History of deep vein thrombosis (Acute) Lymphedema (Acute) Acute kidney injury (Acute) Encephalopathy (Acute) Debility (Acute) Lower extremity edema (Acute) Vital Signs Temp Pulse Resp BP Pulse Ox O2 Del Method O2 Flow Rate 98.5 F 92 20 H 131/88 H 93 Room Air 2 04/05/22 18:53 04/06/22 06:27 04/05/22 18:53 04/06/22 06:27 04/05/22 18:53 04/05/22 18:53 03/30/22 21:52 Oxygen Flow Rate (L/min) 2 Oxygen Delivery Method Room Air Weight: 157.878 kg Body Mass Index (BMI) 51.0 Sodium 137 mmol/L (136-145) 03/31/22 05:25 Potassium 4.2 mmol/L (3.5-5.1) 03/31/22 05:25 Chloride 105 mmol/L (98-107) 03/31/22 05:25 Carbon Dioxide 27.0 mmol/L (21.0-32.0) 03/31/22 05:25 Anion Gap 5 (5-15) 03/31/22 05:25 BUN 29 mg/dL (7-18) H 03/31/22 05:25 Creatinine 1.32 mg/dL (0.70-1.30) H 03/31/22 05:25 Est GFR (MDRD) Af Amer 70 mL/min (>60) 03/31/22 05:25 Est GFR (MDRD) Non-Af 58 mL/min (>60) L 03/31/22 05:25 BUN/Creatinine Ratio 22.0 RATIO (10-20) H 03/31/22 05:25 Glucose 119 mg/dL (74-106) H 03/31/22 05:25 Assessment/Plan: 1. Pain: arthritis pain 2 click top TID and Tramadol 50mg PO q6h PRN pain 4-10. Resident has received 98 tablets of tramadol for pain scores 8-10 in the back/knee. Post-medication pain scores range from 0-5, appears to be managed appropriately. Please continue to monitor for increased pain, PRN usage, constipation and respiratory depression. Has had 6 documented bowel movements since admission.? 2. Bowel: senna/docusate 1T PO BID, bisacodyl 10mg PO daily PRN constipation, loperamide 2 mg PO q2h PRN. Resident has received 2 doses of bisacodyl, 1 dose of loperamide and has had 6 documented bowel movements. Please continue to monitor for constipation, diarrhea and PRN usage. 3. Infection of total knee replacement: ceftriaxone 2g q24h, please continue to monitor for S/S of infection, and diarrhea. The patient is being followed by ID service.? 4. Lymphedema: furosemide 80mg PO daily. Please continue to monitor for S/S of edema, potassium (last 4.2mmol/L), sodium (last 137mmol/L) and renal function. 5. Hypertension: metoprolol tartrate 75mg PO BID. Please continue to monitor for HR (last 92) and BP (last 131/88).? 6. Hyperlipidemia: atorvastatin 20mg PO QHS. Resident does not have a lipid panel in the chart. Please consider ordering a lipid panel now and then annually as clinically appropriate. Thanks. Please continue to monitor AST/ALT (last 02/23/22) and muscle pain.? 7. Diabetes mellitus: insulin glargine 50units SC QHS and insulin lispro 20units SC breakfast/lunch/dinner. Resident does not have a hemoglobin A1c in the chart. Please consider ordering a hemoglobin A1c now and then every 3 months as clinically appropriate. Thanks. Please continue to monitor glucose (last 119mg/dL) and for S/S of hypoglycemia. 8. Pulmonary embolism: rivaroxaban 20mg PO DINNER. Please continue to monitor for S/S of bleeding and hemoglobin (last 11g/dL).? 9. BPH/urinary retention (per nursing note): doxazosin 4mg PO QHS and tamsulosin 0.4mg PO daily. Please continue to monitor BP (doxazosin is a BEERs criteria medication for orthostatic hypotension, please monitor for medication appropriateness) , urinary retention and S/S of BPH.? 10. Shortness of breath: albuterol inhaler 2 inhalations Q6H PRN SOB. Resident has not required any doses. Please continue to monitor for S/S of SOB and PRN usage. 11. Insomnia: melatonin 10mg PO QHS. Please continue to monitor for excessive drowsiness. 12. Muscle spasm: tizanidine 4mg PO Q8H PRN MSP, tizanidine 4 mg PO HS. Resident has required 16 PRN tablets. If resident requires doses, could contribute to urinary retention. This medication is on the BEERs list for urinary retention. Please continue to monitor for S/S of muscle spasms and PRN usage. 13. Nutrition/zinc deficiency: multivitamin 1T PO DAILYCM and zinc 220 mg PO daily. Please continue to monitor. 14. GI: lactobacillus 1 tab PO BID, Please continue to monitor? ? 15. Mucus: guaifenesin 600 mg PO BID, Please continue to monitor Assessment/Plan for indications treated with psychotropic medications: 1. Diabetic polyneuropathy: gabapentin 600mg PO TIDCM. Residents is using it for diabetic polyneuropathy. GDR not appropriate. This is a BEERs criteria medication for falls. Please continue to monitor for confusion, falls and renal function Medical chart and medication regimen reviewed. The following medication irregularities or issues were identified: 1. Mucus: guaifenesin no indication documented on file. Please consider adding an indication or discontinuing the medication Date of Note:: 04/06/22
--- NOTE | 2022-04-06 15:47 | CASEMGMT ---
Addendum entered by Qing Rascon 04/07/22 15:28: ID Dr agreed to switch to PO ATB at DC. SW contacted to update and appreciative. states she is still feeling ill and wants to recover more before pt discharges. inquired about pt's LOC for DC. SW offered for therapy to update with levels to prepare for pts care at home. appreciative. Written notification left for therapy to follow up with . SW to continue to follow for DC plans. Addendum entered by Qing Rascon 04/07/22 09:25: Recevied call from [facility] - total weekly cost is $178.22. Contacted to update on cost. inquiring about switching pt to PO ATB to DC home prior to surgery. SW verbally communicated to nursing to follow up. SW to continue to follow. Original Note: Social Work Contacted to inquire about surgery date and DC plans. states she has left several messages with surgeon's office and have not received a return phone call. SW explained pt will likely need all of the remaining Medicare days after surgery for rehab and therapy is limited on progression with pt prior to surgery, thus suggesting a DC date soon. expressed understanding and agrees. would like to take pt home. SW will coordinate DC plans home if pt and agree home is safe and can care for pt with his needs. agrees. Encouraged to continue calling the surgeon's office for a surgery date. SW to send I IV information to inquire about cost for pt to be at home. agreeable to get trained with pt on IV infusion. SW to order skilled HHC. appreciative. SW will continue to follow. Faxed referral to [facility]. Nursing Communication order entered to begin infusion training with and pt once pt is out of isolation. Qing Rascon, ZULEMA BAKERW
[2022-04-06] MEDS: Rivaroxaban 20 MG Tablet PO (17:51)
[2022-04-06] MEDS: Tamsulosin HCl 0.4 MG Capsule PO (17:52)
[2022-04-06 17:55] LABS: Bedside Glucose 97 mg/dL (74-106)
[2022-04-06 18:02] VITALS: BP 113/64; PULSE 79
[2022-04-06 18:45] VITALS: BP 113/64; PULSE 79; RESP 18; TEMP 36.6; O2SAT 95
[2022-04-06] MEDS: Atorvastatin Calcium 20 MG Tablet PO (20:59)
[2022-04-06] MEDS: traMADol 50 MG Tablet PO (20:59)
[2022-04-06] MEDS: tiZANidine HCl 2 MG Tablet 4 MG PO (20:59)
[2022-04-06 21:00] VITALS: BP 108/56; PULSE 72; RESP 18; TEMP 36.6; O2SAT 95
[2022-04-06] MEDS: MELATONIN 10 MG TABLET PO (21:00)
[2022-04-06] MEDS: Insulin Glargine-YFGN 100 UNIT/ML Pen 50 UNIT SC (21:12)
[2022-04-06 21:55] LABS: Bedside Glucose 162 mg/dL (74-106)
[2022-04-07 05:44] LABS: Absolute Lymphocyte Count 2.64 X10^3/uL (0.83-4.51); Absolute Neutrophil Count 4.8 X10^3/uL (2.0-7.7); Basophil# 0.08 X10^3/uL; Basophil% 0.9 % (0-1); Eosinophil# 0.32 X10^3/uL; Eosinophils% 3.5 % (0-5); Hematocrit 36.6 % (40-54); Hemoglobin 11.2 g/dL (13.0-16.5); Lymphocyte # 2.64 X10^3/ul (0.83-4.51); Lymphocyte % 29.2 % (19-41); Mean Corp Hgb Conc 30.6 g/dL (32-36); Mean Corpuscular Hgb 27.1 pg (27.0-32.0); Mean Corpuscular Volume 88.4 fL (80-94); Mean Platelet Vol. 9.2 fl (6.2-12.0); Monocyte# 1.03 X10^3/uL; Monocyte% 11.4 % (0-10); NRBC Flagged by Analyzer 0 % (0-5); Neutrophil % 53.2 % (47-70); Platelet Count 282 K/mm3 (150-450); RBC Distribution Width SD 44.6 fl (35.1-43.9); Red Blood Count 4.14 M/mm3 (4.6-6.2)
[2022-04-07] MEDS: Furosemide 80 MG Tablet PO (05:49)
[2022-04-07] MEDS: guaiFENesin 600 MG Tablet PO ×2 (05:49→18:07)
[2022-04-07] MEDS: traMADol 50 MG Tablet PO ×2 (05:50→22:14)
[2022-04-07 05:51] VITALS: BP 109/62; PULSE 72
[2022-04-07] MEDS: Metoprolol Tartrate 50 MG Tablet 75 MG PO ×2 (05:51→18:07)
[2022-04-07] MEDS: Arthritis Pain Compound 60 CLICK TUBE TOPICAL ×3 (05:52→22:19)
[2022-04-07 06:16] LABS: Anion Gap 4 (5-15); BUN 17 mg/dL (7-18); Calcium,Total 8.7 mg/dL (8.5-10.1); Chloride 104 mmol/L (98-107); Creatinine, Serum 1.31 mg/dL (0.70-1.30); EST Glomerular Filtration Rate 58 mL/min (>60); Est Glom Filt Rate - Afr Amer 70 mL/min (>60); Estimated Creatinine Clearance 60.06 ml/min; Glucose 103 mg/dL (74-106); Potassium 4.2 mmol/L (3.5-5.1); Sodium Level 138 mmol/L (136-145)
[2022-04-07 06:41] LABS: Bedside Glucose 113 mg/dL (74-106)
[2022-04-07] MEDS: Multivitamins,Therapeutic Tablet 1 TABLET PO (08:08)
[2022-04-07] MEDS: Insulin Lispro 100 UNIT/ML INSULN.PEN 20 UNIT SC ×3 (08:08→18:09)
[2022-04-07] MEDS: Gabapentin 600 MG Tablet PO ×3 (08:08→18:08)
[2022-04-07] MEDS: Menthol/Lanolin/Calamine/Znox 113 GM Tube 1 APPLIC TOPICAL ×2 (08:08→22:18)
[2022-04-07] MEDS: 0.9% Saline Lock 10 ML Syringe IV (10:07)
[2022-04-07] MEDS: Nystatin Powder 15gm Bottle 1 APPLIC TOPICAL ×2 (10:09→22:17)
[2022-04-07 11:15] LABS: Bedside Glucose 207 mg/dL (74-106)
[2022-04-07] MEDS: Insulin Lispro 100 UNIT/ML INSULN.PEN SC ×2 (11:23→18:09)
[2022-04-07 11:25] VITALS: PULSE 92; O2SAT 94
--- NOTE | 2022-04-07 11:54 | NURSING ---
message left with Dr Sanders office in [place] at [phone] regarding date and time for surgery. awaiting return call. updated pt.
--- NOTE | 2022-04-07 11:55 | NURSING ---
pt updated that a staff member tested positive for covid.
--- NOTE | 2022-04-07 13:32 | PCM.PN.ID ---
Physical Exam Narrative Feeling well. Knee improved. Had some congestion with covid, now resolved. Const alert and no apparent distress Resp normal air movement and clear to auscultation bilaterally Cardio regular rate and regular rhythm GI soft to palpation, non-tender and non-distended Skin no rashes or lesions noted Skin Narrative: L knee much less sore/swollen ID ID: Route of nutrition/ use of supplements: [] Nutritional Intake: [] IV Site: [] Guido Catheter: [] Assessment & Plan Assessment/Plan (1) Infection of total knee replacement: PLAN: L knee MSSE PJI - On ceftriaxone. Sx improved. Reports rash with PCN as a child, no issue with amox since then. Wants to avoid iv abx at discharge due to cost, will have picc removed at discharge and change to po doxy 100mg bid, to be continued until he is able to get his surgery. Will follow
[2022-04-07 13:40] VITALS: O2SAT 93
--- NOTE | 2022-04-07 13:48 | NURSING ---
dr Cobb in to see pt, changing IV ATB to PO for home discharge and ok to DC PICC line before DC. dr puentes updated. Qing notified as well.
[2022-04-07 15:05] VITALS: BP 112/60; PULSE 82; TEMP 35.8; O2SAT 93
[2022-04-07 17:15] LABS: Bedside Glucose 153 mg/dL (74-106)
[2022-04-07 18:07] VITALS: PULSE 82
[2022-04-07] MEDS: Rivaroxaban 20 MG Tablet PO (18:08)
[2022-04-07] MEDS: Tamsulosin HCl 0.4 MG Capsule PO (18:08)
[2022-04-07] MEDS: Senna/Docusate Sodium 1 Tablet PO (18:08)
[2022-04-07 21:35] LABS: Bedside Glucose 129 mg/dL (74-106)
[2022-04-07] MEDS: Doxazosin 4 MG Tablet PO (21:38)
[2022-04-07] MEDS: tiZANidine HCl 2 MG Tablet 4 MG PO (21:38)
[2022-04-07] MEDS: Atorvastatin Calcium 20 MG Tablet PO (21:38)
[2022-04-07] MEDS: MELATONIN 10 MG TABLET PO (21:38)
[2022-04-07] MEDS: Insulin Glargine-YFGN 100 UNIT/ML Pen 50 UNIT SC (22:19)
[2022-04-07 22:33] VITALS: BP 106/56; PULSE 70
[2022-04-08 06:11] VITALS: BP 129/70; PULSE 70
[2022-04-08 06:16] VITALS: BP 129/70; PULSE 70
[2022-04-08] MEDS: Metoprolol Tartrate 50 MG Tablet 75 MG PO ×2 (06:16→18:14)
[2022-04-08] MEDS: Senna/Docusate Sodium 1 Tablet PO (06:17)
[2022-04-08] MEDS: guaiFENesin 600 MG Tablet PO ×2 (06:17→18:00)
[2022-04-08] MEDS: Furosemide 80 MG Tablet PO (06:17)
[2022-04-08] MEDS: Arthritis Pain Compound 60 CLICK TUBE TOPICAL ×3 (06:18→22:34)
[2022-04-08 06:35] LABS: Bedside Glucose 104 mg/dL (74-106)
[2022-04-08] MEDS: Gabapentin 600 MG Tablet PO ×3 (08:01→18:01)
[2022-04-08] MEDS: Multivitamins,Therapeutic Tablet 1 TABLET PO (08:01)
[2022-04-08] MEDS: Nystatin Powder 15gm Bottle 1 APPLIC TOPICAL ×2 (08:23→22:34)
[2022-04-08] MEDS: Menthol/Lanolin/Calamine/Znox 113 GM Tube 1 APPLIC TOPICAL ×2 (08:24→22:36)
[2022-04-08] MEDS: Insulin Lispro 100 UNIT/ML INSULN.PEN 20 UNIT SC ×3 (08:24→18:09)
[2022-04-08 10:00] VITALS: O2SAT 96
[2022-04-08] MEDS: 0.9% Saline Lock 10 ML Syringe IV ×2 (11:30→12:16)
[2022-04-08 16:00] VITALS: BP 116/72; PULSE 81; RESP 18; TEMP 36.7; O2SAT 92
[2022-04-08 16:40] LABS: Bedside Glucose 139 mg/dL (74-106)
[2022-04-08 16:40] LABS: Bedside Glucose 119 mg/dL (74-106)
[2022-04-08 17:26] LABS: Bedside Glucose 113 mg/dL (74-106)
[2022-04-08] MEDS: Rivaroxaban 20 MG Tablet PO (18:00)
[2022-04-08] MEDS: Tamsulosin HCl 0.4 MG Capsule PO (18:01)
[2022-04-08 18:14] VITALS: BP 116/72; PULSE 76
[2022-04-08 22:00] LABS: Bedside Glucose 152 mg/dL (74-106)
[2022-04-08] MEDS: Doxazosin 4 MG Tablet PO (22:20)
[2022-04-08] MEDS: tiZANidine HCl 2 MG Tablet 4 MG PO (22:21)
[2022-04-08] MEDS: MELATONIN 10 MG TABLET PO (22:21)
[2022-04-08] MEDS: Atorvastatin Calcium 20 MG Tablet PO (22:21)
[2022-04-08] MEDS: traMADol 50 MG Tablet PO (22:22)
[2022-04-08] MEDS: Insulin Glargine-YFGN 100 UNIT/ML Pen 50 UNIT SC (22:33)
[2022-04-09] MEDS: Arthritis Pain Compound 60 CLICK TUBE TOPICAL ×3 (06:42→21:35)
[2022-04-09] MEDS: traMADol 50 MG Tablet PO ×2 (06:42→21:35)
[2022-04-09] MEDS: Furosemide 80 MG Tablet PO (06:43)
[2022-04-09 06:44] VITALS: BP 122/61; PULSE 87
[2022-04-09] MEDS: Metoprolol Tartrate 50 MG Tablet 75 MG PO ×2 (06:44→18:24)
[2022-04-09] MEDS: guaiFENesin 600 MG Tablet PO ×2 (06:45→18:20)
[2022-04-09 07:01] LABS: Bedside Glucose 115 mg/dL (74-106)
[2022-04-09] MEDS: Insulin Lispro 100 UNIT/ML INSULN.PEN 20 UNIT SC ×3 (08:04→18:14)
[2022-04-09] MEDS: Multivitamins,Therapeutic Tablet 1 TABLET PO (08:06)
[2022-04-09] MEDS: Gabapentin 600 MG Tablet PO ×3 (08:06→18:23)
[2022-04-09] MEDS: Nystatin Powder 15gm Bottle 1 APPLIC TOPICAL ×2 (08:09→21:39)
[2022-04-09] MEDS: Menthol/Lanolin/Calamine/Znox 113 GM Tube 1 APPLIC TOPICAL ×2 (08:12→21:39)
[2022-04-09] MEDS: 0.9% Saline Lock 10 ML Syringe IV ×2 (08:13→11:28)
[2022-04-09 11:41] LABS: Bedside Glucose 126 mg/dL (74-106)
[2022-04-09 14:50] VITALS: BP 96/45; PULSE 73; RESP 18; TEMP 36.8; O2SAT 90
[2022-04-09 17:16] LABS: Bedside Glucose 124 mg/dL (74-106)
[2022-04-09] MEDS: Tamsulosin HCl 0.4 MG Capsule PO (18:17)
[2022-04-09] MEDS: Rivaroxaban 20 MG Tablet PO (18:17)
[2022-04-09 18:24] VITALS: BP 113/64; PULSE 74
[2022-04-09 18:54] VITALS: BP 113/74; PULSE 64; RESP 18; TEMP 36.7
[2022-04-09 21:30] LABS: Bedside Glucose 132 mg/dL (74-106)
[2022-04-09] MEDS: Atorvastatin Calcium 20 MG Tablet PO (21:36)
[2022-04-09] MEDS: Doxazosin 4 MG Tablet PO (21:36)
[2022-04-09] MEDS: tiZANidine HCl 2 MG Tablet 4 MG PO (21:37)
[2022-04-09] MEDS: Insulin Glargine-YFGN 100 UNIT/ML Pen 50 UNIT SC (21:37)
[2022-04-09] MEDS: MELATONIN 10 MG TABLET PO (21:37)
[2022-04-10] MEDS: traMADol 50 MG Tablet PO ×3 (06:00→21:53)
[2022-04-10] MEDS: Arthritis Pain Compound 60 CLICK TUBE TOPICAL ×3 (06:00→21:56)
[2022-04-10] MEDS: Furosemide 80 MG Tablet PO (06:01)
[2022-04-10 06:02] VITALS: BP 118/61; PULSE 72
[2022-04-10] MEDS: Metoprolol Tartrate 50 MG Tablet 75 MG PO ×2 (06:02→17:00)
[2022-04-10] MEDS: guaiFENesin 600 MG Tablet PO ×2 (06:03→17:03)
[2022-04-10 06:46] LABS: Bedside Glucose 83 mg/dL (74-106)
[2022-04-10] MEDS: Gabapentin 600 MG Tablet PO ×3 (08:33→16:59)
[2022-04-10] MEDS: Insulin Lispro 100 UNIT/ML INSULN.PEN 20 UNIT SC ×3 (08:33→17:02)
[2022-04-10] MEDS: Multivitamins,Therapeutic Tablet 1 TABLET PO (08:34)
[2022-04-10] MEDS: Nystatin Powder 15gm Bottle 1 APPLIC TOPICAL ×2 (08:37→21:55)
[2022-04-10] MEDS: Menthol/Lanolin/Calamine/Znox 113 GM Tube 1 APPLIC TOPICAL ×2 (08:38→21:54)
[2022-04-10] MEDS: 0.9% Saline Lock 10 ML Syringe IV (09:59)
[2022-04-10 11:40] LABS: Bedside Glucose 139 mg/dL (74-106)
[2022-04-10 15:00] VITALS: BP 111/55; PULSE 75; RESP 16; TEMP 37.2; O2SAT 99
--- NOTE | 2022-04-10 15:49 | CASEMGMT ---
Addendum entered by Qing Rascon 04/10/22 16:41: Pt prefers [facility], but denies needing a STAGE SET UP WORKER. Referral made via phone to [facility] PT/OT/ST/SN. Original Note: Social Work Received call from requesting pt DC home 04/12 when children are in town and can assist with DC. IDT agreeable. stated she already picked up pt's PO ATB from the pharmacy. No DME needs. Pt to have skilled HHC. to review list with pt when she visits. Sent list of HHC providers including quality and resource use data and consistent with the patient?s preferred geographic region, medical needs, and insurance network were provided via [employer]. Family to transport pt. Plan: DC home with 04/12, HHC PT/OT/ST/SN/[facility]
[2022-04-10 16:50] LABS: Bedside Glucose 84 mg/dL (74-106)
[2022-04-10 17:00] VITALS: PULSE 75
[2022-04-10] MEDS: Rivaroxaban 20 MG Tablet PO (17:02)
[2022-04-10] MEDS: Tamsulosin HCl 0.4 MG Capsule PO (17:03)
--- NOTE | 2022-04-10 19:26 | DS.PCM_ITS ---
Providers Date of Admission: 02/24/22 Primary Care Physician: Dr. David Kate MD Consultations 02/24/22 17:03 Consult: Onc/Wound/community service officer Routine Comment: Reason for Consult:: RT heel pressure injury 03/06/22 15:33 Consult: Orthopedics Routine Consulting Provider: Jono Calvillo Reason for Consult: Left knee pain - severe with elevated WBC and warmth to touch. EMERGENT Consult: No MD Notified: Yes Date Notified: 03/06/22 Time Notified: 15:33 Method of Notification: phonecall 03/13/22 08:27 Consult: Infectious Disease Routine Consulting Provider: Gm Cobb Reason for Consult: S. Epi left prosthetic knee infection. EMERGENT Consult: Yes MD Notified: Yes Date Notified: 03/13/22 Time Notified: 09:38 Method of Notification: Verbal Reason For Visit: LE EDEMA, CONFUSION, RENAL INSUFFICIENCY Diagnosis Discharge Diagnosis (1) Infection of total knee replacement: Status: Acute Code(s): T84.59XA - Infection and inflammatory reaction due to other internal joint prosthesis, initial encounter; Z96.659 - Presence of unspecified artificial knee joint Plan 66 year old male with below past medical history hospitalized for acute encephalopathy, complicated by acute kidney injury, lymphedema, cellulitis ruled out, admittted to TCU with debility, here for rehabilitation, strengthening, prior to discharge home with . Resident has left MSSE prosthetic knee joint infection. * Debility - PT/OT. * Pain - Arthritis Compound 2 click topical tid, Tramadol 50mg q6h prn. * Bowel - Senna/colace 1 tablets bid, Dulcolax 10mg daily prn. * Adult immunization - Administer pneumonia vaccine, covid19 vaccine, flu vaccine. * DVT prophylaxis - Not necessary, Xarelto 20mg daily. * Methicillin Sensitive Staph Epi left prosthetic knee infection - Dr. Cobb, Ceftriaxone 2gm iv q24h, [facility] to schedule explant, ATB spacer placement surgery. * Shortness of breath - Albuterol 2 puff q6h prn. * Hyperlipidemia - Atorvastatin 20mg qhs. * BPH - Doxazosin 4mg qhs. * Skin irritation - Eucerin topical qhs, Calmoseptine topical bid. * Lymphedema - Furosemide 80mg daily, compression. * Diabetic polyneuropathy - Gabapentin 600mg tidcm. * Diabetes Mellitus II - Glargine 50 units qhs, Humalog 20 units, 20 units, 20 units. * Insomnia - Melatonin 10mg qhs. * Hypertension - Metoprolol 75mg bid. * Nutrition - MVI daily. * Tinea Corporis - Nystatin powder topical bid. * Pulmonary embolism, recurrent - Xarelto 20mg daily. * Muscle spasm - Tizanidine 4mg q8h prn, 4mg qhs. * Zinc deficiency - Zinc 220mg daily. * BPH - Tamsulosin 0.4mg daily. Medications at Discharge Home Medications atorvastatin 20 mg tablet 20 mg PO QHS cholesterol 08/27/15 furosemide 40 mg tablet 80 mg PO DAILY diuretic 08/27/15 multivitamin with folic acid 400 mcg tablet (Thera) 1 tab PO DAILY supplement 10/18/15 rivaroxaban 20 mg tablet (Xarelto) 20 mg PO DINNER blood thinner 03/23/16 doxazosin 4 mg tablet 4 mg PO QHS blood pressure 04/03/20 insulin lispro 100 unit/mL subcutaneous pen 20 unit subcut BREAKFAST diabetes 02/23/22 insulin lispro 100 unit/mL subcutaneous pen 20 unit subcut LUNCH diabetes 02/23/22 gabapentin 600 mg tablet 600 mg PO TIDCM Nerve Pain 02/24/22 doxycycline hyclate 100 mg capsule 100 mg PO BID #60 caps 04/07/22 insulin glargine-yfgn 100 unit/mL (3 mL) subcutaneous pen 50 unit (0.5 mL) subcut QHS #0 mL 04/10/22 insulin lispro 100 unit/mL subcutaneous pen (Humalog KwikPen (U-100) Insulin) 20 unit (0.2 mL) subcut DINNER #0 mL 04/10/22 metoprolol tartrate 25 mg tablet 75 mg PO BID blood pressure 30 days #180 tabs 04/10/22 tamsulosin 0.4 mg capsule 0.4 mg PO DAILY@1730 30 days #30 caps 04/10/22 tizanidine 2 mg tablet 4 mg PO QHS #0 tabs 04/10/22 tramadol 50 mg tablet 50 mg PO Q6H PRN PRN Pain Score 4-10 7 days #28 tabs 04/10/22 Hospital Course Operations None Procedures - (Arthrocentesis x2 left prosthetic knee.) Summary of Care Provided Minutes Spent on Discharge: 35 Hospital Course: 66 year old male with below past medical history hospitalized for acute encephalopathy, complicated by acute kidney injury, lymphedema, cellulitis ruled out, admittted to TCU with debility, here for rehabilitation, strengthening, prior to discharge home with . Resident diagnosed with Methicillin sensitive staph epi left prosthetic knee infection. Dr. Cobb recommended IV Ceftriaxone, will discharge home on Doxycycline due to cost. Resident will schedule left prosthetic knee explant, antibiotic spacer placement at [facility]. Discharge home with 04/12/2022, Home Health Care PT/OT/ST/SN/COSBY. Physical Exam Const alert General Appearance: cooperative HEENT normocephalic Eyes PERRL and EOMs intact bilaterally Neck supple, no JVD and no carotid bruits Resp normal respiratory effort, normal air movement and clear to auscultation bilaterally Cardio regular rate and regular rhythm GI normal to inspection, nondistended, normoactive bowel sounds, non-tender and non-distended Extremity normal capillary refill General Extremity: Negative for edema Skin no rashes or lesions noted General Skin Exam: no breakdown Psych affect normal Appearance: appropriate Weight / BMI Weight Weight: 157.878 kg Body Mass Index (BMI) 51.0 ABG / Lab / Microbiology Data Result Diagrams: 04/07/22 05:29 04/07/22 05:29 Laboratory: Laboratory Results - last 24 hr 04/09/22 21:09: POC Glucose 132 H 04/10/22 06:19: POC Glucose 83 04/10/22 11:11: POC Glucose 139 H 04/10/22 16:17: POC Glucose 84 Microbiology: Microbiology 03/30/22 05:40 Nasal Secretion SARS-CoV-2 Antigen (Rapid) - Final SARS-CoV-2 (COVID 19) 03/23/22 14:30 Nasal Secretion SARS-CoV-2 Antigen (Rapid) - Final 03/16/22 08:24 Nasal Secretion SARS-CoV-2 Antigen (Rapid) - Final 03/12/22 20:25 Urine, Catheterized Urine Culture - Final Culture exhibits no growth. 03/10/22 07:20 Fluid - Synovial (joint) Gram Stain - Final 03/10/22 07:20 Fluid - Synovial (joint) Body Fluid Culture - Final Staphylococcus epidermidis 03/10/22 07:20 Fluid - Synovial (joint) Anaerobic Culture - Final No anaerobic bacteria isolated. 03/08/22 12:45 Fluid - Synovial (joint) Gram Stain - Final 03/08/22 12:45 Fluid - Synovial (joint) Body Fluid Culture - Final Staphylococcus epidermidis 03/08/22 12:45 Fluid - Synovial (joint) Anaerobic Culture - Final No anaerobic bacteria isolated. 03/09/22 05:05 Nasal Secretion SARS-CoV-2 Antigen (Rapid) - Final 03/03/22 14:56 Nasal Secretion SARS-CoV-2 Antigen (Rapid) - Final D/C Instructions Discharge Diet: No restrictions Discharge Activity: Return to Normal Activity, May Shower and Use Walker Weight Bearing Status: Weight bearing as tolerated Call your doctor if you observe: Fever of 101 or Higher, Inability to urinate, Inability to have a bowel movement, Shortness of breath, Dizziness, Fainting spells, Swelling in the ankles, Chest pain and Uncontrolled pain Additional Instructions: Discharge home with 04/12/2022, Home Health Care PT/OT/ST/SN/COSBY. Please Follow Up With: Marilyn When: As soon as possible. Meaningful Use Info Meaningful Use Diagnoses (Choose all that apply): None applicable Discharge Plan Admission Admit Date/Time: 02/24/22 14:45 Primary Reason for Your Visit: Debility. Attending Provider: Edmund Araujo Chi Primary Care Provider: David Kate Consulting Providers: Jono Calvillo ; Gm Cobb Instructions Additional Instructions / Restrictions: Discharge home with 04/12/2022, Home Health Care PT/OT/ST/SN/COSBY. Discharge Orders/Prescriptions Prescriptions: New doxycycline hyclate 100 mg capsule 100 mg PO BID Qty: 60 1RF insulin glargine-yfgn 100 unit/mL (3 mL) Insulin Pen 50 unit subcut QHS Qty: 0 0RF insulin lispro [Humalog KwikPen Insulin] 100 unit/mL Insulin Pen 20 unit subcut DINNER Qty: 0 0RF tizanidine 2 mg Tablet 4 mg PO QHS Qty: 0 0RF tramadol 50 mg Tablet 50 mg PO Q6H PRN PRN (Reason: Pain Score 4-10) 7 Days Qty: 28 0RF tamsulosin 0.4 mg Capsule 0.4 mg PO DAILY@1730 30 Days Qty: 30 0RF Continued furosemide 40 MG tablet 80 mg PO DAILY Label Comments: diuretic atorvastatin 20 MG tablet 20 mg PO QHS Label Comments: reduce cholesterol multivitamin with folic acid [Thera] 1 TABLET tablet 1 tab PO DAILY Label Comments: vitamin Xarelto 20 MG tablet 20 mg PO DINNER Label Comments: BLOOD THINNER doxazosin 4 MG tablet 4 mg PO QHS insulin lispro 100 unit/mL Insulin Pen 20 unit SUBCUT BREAKFAST insulin lispro 100 unit/mL Insulin Pen 20 unit SUBCUT LUNCH gabapentin 600 MG tablet 600 mg PO TIDCM metoprolol tartrate 25 MG tablet 75 mg PO BID 30 Days Qty: 180 0RF Label Comments: reduce blood pressure Discontinued tizanidine [Zanaflex] 4 MG tablet 4 mg PO Q8H PRN (Reason: Pain) Label Comments: PAIN insulin glargine [Lantus Solostar U-100 Insulin] 100 UNITS/ML insulin pen 65 units subcut QHS Label Comments: diabetes aspirin 81 MG tablet,chewable 81 mg PO DAILY amlodipine 10 mg tablet 1 tab PO DAILY albuterol sulfate 90 mcg/actuation HFA aerosol inhaler 2 inh INHALATION Q6H PRN PRN (Reason: SOB) zinc 50 mg Tablet 50 mg PO DAILY insulin lispro 100 unit/mL Insulin Pen 25 unit SUBCUT DINNER acetaminophen [Tylenol] 325 mg Tablet 650 mg PO Q4H PRN PRN (Reason: Fever, pain 1-10/10) Qty: 0 0RF melatonin 3 mg Tablet 3 mg PO QHS PRN PRN (Reason: Insomnia) Qty: 0 0RF hydrocodone-acetaminophen 1 EACH tablet 2 tab PO Q6H PRN PRN (Reason: Pain Score 1-10/10) 1 Days Qty: 4 0RF insulin lispro [Humalog KwikPen Insulin] 100 unit/mL insulin pen See Protocol subcut ACHS Protocol: 3. Sliding Scale Insulin Med Dosing Condition: 150-189 mg/dl = 1 unit Condition: 190-229 mg/dl = 2 units Condition: 230-269 mg/dl = 3 units Condition: 270-309 mg/dl = 4 units Condition: 310-349 mg/dl = 5 units Condition: 350-399 mg/dl = 6 units Condition: 400-449 mg/dl = 7 units Condition: Greater than 449 call physician Protocol Text: - Use for Total Daily Dose of Insulin 37-55 units - Obsese, infected, or steroid patients MEDIUM DOSING ALGORITHIM Referrals / Follow Up: David Kate MD [Primary Care Provider] - Disposition Disposition (needs filled in before D/C Order can be placed): Home Health Service
[2022-04-10 20:52] VITALS: PULSE 86; RESP 18
[2022-04-10 21:31] LABS: Bedside Glucose 132 mg/dL (74-106)
[2022-04-10] MEDS: tiZANidine HCl 2 MG Tablet 4 MG PO (21:54)
[2022-04-10] MEDS: Atorvastatin Calcium 20 MG Tablet PO (21:54)
[2022-04-10] MEDS: Doxazosin 4 MG Tablet PO (21:55)
[2022-04-10] MEDS: MELATONIN 10 MG TABLET PO (21:55)
[2022-04-10 22:00] VITALS: BP 102/60; PULSE 68
[2022-04-10] MEDS: Insulin Glargine-YFGN 100 UNIT/ML Pen 50 UNIT SC (22:03)
[2022-04-11] MEDS: guaiFENesin 600 MG Tablet PO ×2 (05:28→17:59)
[2022-04-11 05:29] VITALS: BP 106/65; PULSE 64
[2022-04-11] MEDS: Metoprolol Tartrate 50 MG Tablet 75 MG PO ×2 (05:29→18:00)
[2022-04-11] MEDS: Furosemide 80 MG Tablet PO (05:29)
[2022-04-11] MEDS: Arthritis Pain Compound 60 CLICK TUBE TOPICAL ×3 (05:30→22:07)
[2022-04-11 06:26] LABS: Bedside Glucose 95 mg/dL (74-106)
[2022-04-11] MEDS: Gabapentin 600 MG Tablet PO ×3 (07:52→17:59)
[2022-04-11] MEDS: Multivitamins,Therapeutic Tablet 1 TABLET PO (07:54)
[2022-04-11] MEDS: Insulin Lispro 100 UNIT/ML INSULN.PEN 20 UNIT SC ×3 (07:55→18:00)
[2022-04-11] MEDS: Menthol/Lanolin/Calamine/Znox 113 GM Tube 1 APPLIC TOPICAL ×2 (07:56→22:04)
[2022-04-11] MEDS: 0.9% Saline Lock 10 ML Syringe IV (09:26)
[2022-04-11] MEDS: Nystatin Powder 15gm Bottle 1 APPLIC TOPICAL ×2 (09:27→22:03)
[2022-04-11 09:31] VITALS: PULSE 67; RESP 16; O2SAT 93
[2022-04-11 11:40] LABS: Bedside Glucose 124 mg/dL (74-106)
[2022-04-11 13:50] VITALS: BP 125/61; PULSE 78; RESP 19; TEMP 37.4; O2SAT 92
--- NOTE | 2022-04-11 15:13 | NURSING ---
pt updated that staff member tested postive for covid
[2022-04-11 16:50] LABS: Bedside Glucose 125 mg/dL (74-106)
--- NOTE | 2022-04-11 17:46 | NURSING ---
dr Sanders called pt cell phone while this nurse was in room and scheduled surgery on 05/05, no time yet.
[2022-04-11] MEDS: Rivaroxaban 20 MG Tablet PO (17:59)
[2022-04-11 18:00] VITALS: PULSE 97
[2022-04-11] MEDS: Tamsulosin HCl 0.4 MG Capsule PO (18:00)
[2022-04-11 21:31] LABS: Bedside Glucose 99 mg/dL (74-106)
[2022-04-11] MEDS: tiZANidine HCl 2 MG Tablet 4 MG PO (22:02)
[2022-04-11] MEDS: Doxazosin 4 MG Tablet PO (22:02)
[2022-04-11] MEDS: MELATONIN 10 MG TABLET PO (22:03)
[2022-04-11] MEDS: Atorvastatin Calcium 20 MG Tablet PO (22:03)
[2022-04-11] MEDS: Insulin Glargine-YFGN 100 UNIT/ML Pen 50 UNIT SC (22:10)
[2022-04-12] MEDS: Arthritis Pain Compound 60 CLICK TUBE TOPICAL (06:11)
[2022-04-12 06:12] VITALS: BP 109/63; PULSE 66
[2022-04-12] MEDS: Metoprolol Tartrate 50 MG Tablet 75 MG PO (06:12)
[2022-04-12] MEDS: guaiFENesin 600 MG Tablet PO (06:12)
[2022-04-12] MEDS: Furosemide 80 MG Tablet PO (06:12)
[2022-04-12 06:35] LABS: Bedside Glucose 138 mg/dL (74-106)
[2022-04-12] MEDS: Insulin Lispro 100 UNIT/ML INSULN.PEN 20 UNIT SC ×2 (07:42→11:52)
[2022-04-12] MEDS: Multivitamins,Therapeutic Tablet 1 TABLET PO (07:43)
[2022-04-12] MEDS: traMADol 50 MG Tablet PO (07:48)
[2022-04-12] MEDS: Gabapentin 600 MG Tablet PO ×2 (07:48→11:53)
[2022-04-12] MEDS: 0.9% Saline Lock 10 ML Syringe IV (07:48)
[2022-04-12] MEDS: Menthol/Lanolin/Calamine/Znox 113 GM Tube 1 APPLIC TOPICAL (09:26)
[2022-04-12] MEDS: Nystatin Powder 15gm Bottle 1 APPLIC TOPICAL (09:26)
[2022-04-12 10:00] VITALS: PULSE 68; RESP 18; O2SAT 98
[2022-04-12 11:11] LABS: Bedside Glucose 198 mg/dL (74-106)
[2022-04-12] MEDS: Insulin Lispro 100 UNIT/ML INSULN.PEN SC (11:53)
[2022-04-12 13:04] VITALS: BP 102/51; PULSE 78; RESP 16; TEMP 36.8; O2SAT 98
--- NOTE | 2022-04-12 16:54 | CASEMGMT ---
Social Work BIMS and PHQ-9 completed for MDS assessment. Qing Rascon, PET CARE ATTENDANT CONCRETE PIPE [employer]ER
== END 2022-04-12 13:06 | disposition home health service (06) | DRG 949 ==
PROVIDERS: Internal Medicine; Orthopaedic Surgery; Admitting Provider Family Medicine Geriatric Medicine; PCP Internal Medicine; Visit Provider Family Medicine Geriatric Medicine
DX: T84.54XD Infection and inflammatory reaction due to internal left knee prosthesis, subsequent encounter (principal); E22.2 Syndrome of inappropriate secretion of antidiuretic hormone; I27.82 Chronic pulmonary embolism; Z68.43 Body mass index [BMI] 50.0-59.9, adult; E11.22 Type 2 diabetes mellitus with diabetic chronic kidney disease; E11.42 Type 2 diabetes mellitus with diabetic polyneuropathy; B35.4 Tinea corporis; B95.7 Other staphylococcus as the cause of diseases classified elsewhere; E66.01 Morbid (severe) obesity due to excess calories; Z79.4 Long term (current) use of insulin; N18.31 Chronic kidney disease, stage 3a; I89.0 Lymphedema, not elsewhere classified; E53.8 Deficiency of other specified B group vitamins; E78.5 Hyperlipidemia, unspecified; M62.838 Other muscle spasm; G47.33 Obstructive sleep apnea (adult) (pediatric); M70.52 Other bursitis of knee, left knee; I12.9 Hypertensive chronic kidney disease with stage 1 through stage 4 chronic kidney disease, or unspecified chronic kidney disease; M10.062 Idiopathic gout, left knee; Z87.891 Personal history of nicotine dependence; Z86.718 Personal history of other venous thrombosis and embolism; Z79.01 Long term (current) use of anticoagulants; Z79.899 Other long term (current) drug therapy; Z79.82 Long term (current) use of aspirin; N40.1 Benign prostatic hyperplasia with lower urinary tract symptoms; R33.8 Other retention of urine
CPT/HCPCS: 36415; 36569; 73562; 80048; 81001; 82436; 82962; 83036; 84550; 85025; 85652; 86140; 87070; 87075; 87077; 87086; 87186; 87205; 87426; 87635; 87811; 89050; 89051; 89060; 92507; 92523; 97110; 97116; 97129; 97130; 97162; 97166; 97530; 97535; 97802; J7050; A4216; J0696; U0003; U0005

== ENCOUNTER → 2022-03-02 | Outpatient (CLI) | payer MEDICARE, BC, SELFPAY ==
--- NOTE | 2022-03-02 16:09 | CT_ITS ---
EXAM: CT LEFT LOWER EXTREMITY WITHOUT INTRAVENOUS CONTRAST, KNEE CLINICAL INDICATION: L KNEE PAIN TECHNIQUE: Helically acquired images were obtained of the left knee without intravenous contrast. This CT exam was performed using one or more of the following dose reduction techniques: automated exposure control, adjustment of the mA and/or kV according to patient size, and/or use of iterative reconstruction technique. This report was created using [employer] report generation technology. RADIATION DOSE: CTDIvol = 15.54 mGy, DLP = 642.76 mGy-cm COMPARISON: None. FINDINGS: BONES/JOINTS: Total left knee arthroplasty. Suprapatellar effusion. No acute fracture. No subluxation. Normal alignment. No sclerotic or destructive changes. SOFT TISSUES: Unremarkable. No soft tissue swelling or gas. No radiopaque foreign body. VASCULATURE: There are atherosclerotic vascular calcifications. CT/Extremity Lower without Contra IMPRESSION: 1. Total left knee arthroplasty. 2. Suprapatellar effusion. Electronically Signed: Raoul Macedo MD at 20:15 EDT ,
== END | disposition home or self-care (01) ==
LOC: CT 16:08
PROVIDERS: PCP Internal Medicine; Referring Provider Family Medicine Geriatric Medicine; Visit Provider Family Medicine Geriatric Medicine
DX: M25.562 Pain in left knee (principal)
CPT/HCPCS: 73700

== ENCOUNTER 2022-09-07 13:00 | Outpatient (RCR) | payer MEDICARE, BC, SELFPAY ==
[2022-08-16 10:00] VITALS: BP 167/90; PULSE 107; RESP 16; TEMP 35.6; BMI 46.5
--- NOTE | 2022-08-16 12:01 | PCM.WC.HP ---
History of Present Illness Date of Service: 08/16/22 Chief Complaint: Right heel ulcer History of Wound: 66 year old male presents to the wound center for evaluation of his right heal ulcer. It started as a a pressure ulcer in February when he he was in TCU and it healed. It then became a blister right before his Left TKR surgery. He had his left knee replaced 07/14/22 at [facility]. 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 He also has a history of diabetes, HTN, lymphedema, hypercholesterolemia and PE that he is on Xerelto. He currently has home health. Progress of Wound: Right heel ulcer with non viable tissue surrounding the ulcer area. [facility] Medical History (Reviewed 08/23/22 @ 10:46 by Carolin Kim ADMINISTRATIVE OFFICE ASSISTANT, ADMINISTRATIVE OFFICE ASSISTANT-C) BPH (benign prostatic hyperplasia) Diabetes mellitus Dyslipidemia Former tobacco use HTN (hypertension) Morbid obesity GRETCHEN treated with BiPAP VTE (venous thromboembolism) Home Medications atorvastatin 20 mg tablet 20 mg PO QHS cholesterol 08/27/15 [History Last Taken 02/21/22] furosemide 40 mg tablet 80 mg PO DAILY diuretic 08/27/15 [History Last Taken 02/22/22] rivaroxaban 20 mg tablet (Xarelto) 20 mg PO DINNER blood thinner 03/23/16 [History Last Taken 02/21/22] doxazosin 4 mg tablet 4 mg PO QHS blood pressure 04/03/20 [History Last Taken 02/21/22] insulin lispro 100 unit/mL subcutaneous pen 20 unit subcut BREAKFAST diabetes 02/23/22 [History Last Taken 02/22/22] insulin lispro 100 unit/mL subcutaneous pen 20 unit subcut LUNCH diabetes 02/23/22 [History Last Taken 02/22/22] gabapentin 600 mg tablet 600 mg PO TIDCM Nerve Pain 02/24/22 [History Last Taken Unknown] doxycycline hyclate 100 mg capsule 100 mg PO BID #60 caps 04/07/22 [Rx Last Taken Unknown] insulin glargine-yfgn 100 unit/mL (3 mL) subcutaneous pen 50 unit (0.5 mL) subcut QHS #0 mL 04/10/22 [Rx Last Taken Unknown] insulin lispro 100 unit/mL subcutaneous pen (Humalog KwikPen (U-100) Insulin) 20 unit (0.2 mL) subcut DINNER #0 mL 04/10/22 [Rx Last Taken Unknown] metoprolol tartrate 25 mg tablet 75 mg PO BID blood pressure 30 days #180 tabs 04/10/22 [Rx Last Taken Unknown] aspirin 81 mg capsule 81 mg PO DAILY 08/16/22 [History Last Taken Unknown] calcium carbonate 200 mg calcium (500 mg) chewable tablet (Tums) mg PO BID PRN Heartburn 08/16/22 [History Last Taken Unknown] dulaglutide 3 mg/0.5 mL subcutaneous pen injector (Trulicity) 3 mg subcut QWEEK 08/16/22 [History Last Taken Unknown] hydrocodone-acetaminophen 5-325mg 5mg-325mg 1 tab PO Q8H PRN Pain 08/16/22 [History Last Taken Unknown] tizanidine 2 mg tablet 4 mg PO TID PRN Back Pain 08/16/22 [History Last Taken Unknown] zinc 50 mg capsule 50 mg PO DAILY 08/16/22 [History Last Taken Unknown] Allergy/AdvReac Type Severity Reaction Status Date / Time Penicillins Allergy Unknown Hives Verified 08/16/22 10:25 erythromycin base AdvReac Nausea Verified 08/16/22 10:25 [Erythromycin Base] Family History Mother Diabetes Heart disease Coagulopathy Father Heart disease CVA (cerebral vascular accident) Parkinsons disease Surgical History History of total knee arthroplasty History of vascular surgery Hx of laminectomy Hx of total knee replacement Status post creation of pericardial window Social History household members: spouse Smoking Status: Former smoker how long ago did patient quit smoking: Quit 1994, smoked 1 ppd since age 15. alcohol intake: never substance use type: does not use ROS Constitutional Constitutional: Denies frequent falls, headache(s) or poor appetite Eyes Eyes: Reports none ENT HEENT: Reports none Cardiovascular Cardiovascular: Denies chest pain at rest, dizziness or dyspnea Respiratory/Chest Respiratory/Chest: Denies cough or dyspnea Gastrointestinal Gastrointestinal: Denies constipation, diarrhea or dyspepsia Genitourinary Genitourinary: Reports other Details: hx BPH Musculoskeletal Musculoskeletal: Reports joint pain, joint stiffness and joint swelling Integumentary Integumentary: Reports skin ulcer Neurologic Neurologic: Denies abnormal speech, dizziness or frequent falls Psychiatric Psychiatric: Reports none Endocrine Endocrinology: Reports none Vital Signs Vital Signs Vital Signs: 08/16/22 10:00 Temperature 96.1 F L Temperature Source Temporal Pulse Rate 107 H Respiratory Rate 16 Blood Pressure 167/90 H Blood Pressure Mean 115 Blood Pressure Source Monitor Blood Pressure Position Sitting Blood Pressure Location Left Forearm Oxygen Delivery Method Room Air Weight Weight: 343 lb Body Mass Index (BMI) 46.5 Physical Exam Const alert, oriented x3, no apparent distress and well nourished General Appearance: cooperative and comfortable HEENT normocephalic Eyes General Eye: normal appearance of both eyes Neck full ROM Lymph Lymphatic: lymphedema mild and non-pitting Resp normal respiratory effort, normal air movement and clear to auscultation bilaterally Effort and Inspection: able to speak in complete sentences Cardio regular rate and regular rhythm GI soft to palpation and non-tender Back/Spine normal ROM Skin Wound Narrative: Right heel ulcer that has non viable tissue present surrounded by moist tissue. Neuro oriented x3 Psych mental status grossly normal Appearance: grossly normal, appropriate and well kempt Debridement Note Debridement Note Wound debrided: heel Laterality: Right Wound Grade/Stage: Stage II Type of Debridement: Excisional debridement Anesthesia Used: 5% Lidocaine Gel Depth: Down to and including healthy tissue and in the subcutaneous layer Percentage of wound debrided: 100 Instrument Used: 7mm curette and #15 blade (pickups) Tissue Removed: devitalized tissue and slough Severity: Fat Layer Exposed Amount of bleeding with debridement: Mild Bleeding Controlled with: Pressure and Compression and gauze Patient tolerated procedure: Patient tolerated procedure well Post-Debridement Measurements and Additional Note: Post-Debridement Measurements/Treatment - Nurse 1 - General Ulcer Assessment Start: 08/16/22 10:00 Freq: Status: Active Protocol: NELL Activity Type Activity Date Activity User E-sign Co-sign Detail Recorded Client Recorded Date Recorded By Document 08/16/22 10:00 [facility] [id number] 08/16/22 10:22 [facility] 08/16/22 10:00 - Today's Visit Information Type of service Initial Visit Arrival Mode Ambulatory, Walker Transfer Assistance None Accompanied by Patient Identification Verified (Name & Yes ) Patient Requires Transmission-Based No Precautions Height and Weight Height 6 ft Weight 343 lb Weight in Pounds 343.0 lbs Weight Measurement Method Estimated by Patient Body Mass Index (BMI) 46.5 BMI Classification Obese BSA - Angie 2.68 Vital Signs Temperature (97.8 F-99.1 F) 96.1 F L Temperature Source Temporal Pulse Rate (60-100) 107 H Pulse Location Monitor Respiratory Rate (12-18) 16 Respiratory rate source Observation Oxygen Delivery Method Room Air Blood Pressure (90/60-120/80) 167/90 H Blood Pressure Mean (mm Hg) 115 Source Monitor Position Sitting Blood Pressure Location Left Forearm History Since Last Visit- (Skip if this is Patient's initial visit) Left Footwear Regular Shoe Right Footwear Regular Shoe Pain Scale: 0-10 Numeric Is Patient Pain Free? Yes Lower Extremity Assessment/ Foot Assessment/ Toe Nail Assessment Right -Posterior Tibial Palpable No -Posterior Tibial Doppler Inaudible -Dorsalis Pedis Palpable No -Dorsalis Pedis Doppler Monophasic -Extremity Color Pale -Hair Growth on Legs No -Hair Growth on Toes No -Temperature of Extremity Cool -Other Deformity No -Prior Foot Ulcer No -Charcot Joint No -Prior Amputation No -Thick No -Discolored No -Deformed No -Improper Length & Hygeine No Left -Lower Extremity Comment (If N/A Above PULSES HAMPERED ) BY EDEMA -Posterior Tibial Palpable No -Posterior Tibial Doppler Inaudible -Dorsalis Pedis Palpable No -Dorsalis Pedis Doppler Monophasic -Extremity Color Pale -Hair Growth on Legs No -Hair Growth on Toes No -Temperature of Extremity Cool -Other Deformity No -Prior Foot Ulcer No -Charcot Joint No -Prior Amputation No -Thick Yes -Discolored Yes -Deformed No -Improper Length & Hygeine No Neuropathy Assessment Feet - Top Side and Bottom <Entered> (a) Communication Assessment Preferred language [place]riot [employer] Required No Able to Read Yes Able to Write Yes Communication Tools None Right Hearing Abillity Normal Left Hearing Abillity Normal Visual Assistive Devices None Teaching Assessment Preferences Verbal,Written, Audio/Visual, Demonstration Barriers to Learning None Readiness To Learn Excellent Willingness to Engage in Self Management High Activies Readiness to Engage in Self Management High Activities Anxiety Level Calm Cooperation Cooperative Perception Coherent Interest in Health Problem Asks Questions Education Importance Acknowledges Need Does Patient Smoke tobacco or other No substances Smoking Status Former smoker Is Patient Diabetic Yes Functional Assessment Recent Decline in Ability to Perform Denies Any Declines Culture/Jewish/Airplane Flight Attendant Cultural/Jewish Needs that may affect No Treatment Plan (a) 1 - NEGATIVE WC - Nurse 1 - General Ulcer Measurement Start: 08/16/22 10:00 Freq: Status: Active Protocol: Activity Type Activity Date Activity User E-sign Co-sign Detail Recorded Client Recorded Date Recorded By Document 08/16/22 10:00 [facility] [id number] 08/16/22 10:22 [facility] 08/16/22 10:00 Wound Center Nurse 1 #1- R HEEL -Combined with other wound No -Current Size (cm) - Length 4.5 -Current Size (cm) - Width 4.3 -Current Size (cm) - Depth 0.1 -Total Square Cm 19.35 -Date of Last Picture (Recall this 08/16/22 field) -Photo Taken Yes -Epithelialization None Present -Tunneling No -Undermining/Tunneling No -Circular Undermining No -Exudate Amt Large -Exudate Type Serosanguineous -Wound Margin Distinct, Outline Attached -Granulation Amt Medium (34-66%) -Granulation Quality Red -Slough/Fibrin Yes -Necrosis Amt Medium (34-66%) -Necrotic Tissue Type Adherent Slough -Texture (Lianna-wound Skin Appearance) Assessed, Scarring -Moisture (Lianna-wound Skin Appearance) Assessed, Maceration -Color (Lianna-wound Skin Appearance) Assessed, Erythema,Palor -Temperature (Lianna-wound Skin No Abnormality Appearance) (Pt Warm) -Tenderness on Palpation (Lianna-wound No Skin Appearance) -Ulcer Cleansing Rinsed/ Irrigated with Saline -Foul Odor after Cleansing No -Anesthetic Used 4% Lidocaine Solution Lower Limb Edema Present Yes Right Calf (cm) 46 Right Ankle (cm) 29.4 Left Calf (cm) 50.1 Left Ankle (cm) 33 - Nurse 2 - General Ulcer CM Notes Start: 08/16/22 10:00 Freq: Status: Active Protocol: Activity Type Activity Date Activity User E-sign Co-sign Detail Recorded Client Recorded Date Recorded By Document 08/16/22 10:50 [id number] 08/16/22 10:56 08/16/22 10:50 Wound Center Nurse 2 #1- R HEEL -Time 10:50 -Correct Patient Yes -Correct Side, Site, Position Yes -Correct Procedure Yes -Procedure Performed Yes -Type of Procedure Debridement -Clinical Debridement Subcutaneous -Tissue Removed Subcutaneous -Post Debridement (cm) - Length 4.5 -Post Debridement (cm) - Width 5.5 -Post Debridement (cm) - Depth 0.1 -Total Square (Post) (cm) 24.75 -Area of Debridement (cm) - Length 4.5 -Area of Debridement (cm) - Width 5.5 -Total Square (Area) (cm) 24.75 -Tunneling No -Undermining/Tunneling No -Circular Undermining No -Wound/Ulcer Outcome Not Healed -Ulcer Cleansing Rinsed/ Irrigated with Saline -Foul Odor after Cleansing No -Bioengineered Tissue No -Bleeding Controlled with Pressure -Treatment Response Procedure Tolerated Well -Offloading No -Debridement - Subq, 1st 20sq cm Yes -Debridement, SubQ, ea addt'l 20sq cm 1 or part thereof Pain Scale: 0-10 Numeric Is Patient Pain Free? Yes - Nurse 3 - General Ulcer D/C NN Start: 08/16/22 10:00 Freq: Status: Active Protocol: Activity Type Activity Date Activity User E-sign Co-sign Detail Recorded Client Recorded Date Recorded By Document 08/16/22 11:22 DL [id number] 08/16/22 11:34 DL 08/16/22 11:22 Wound Care Nurse 3 #1- R HEEL -Ulcer Cleansing Rinsed/ Irrigated with Saline -Foul Odor after Cleansing No -Other Dressing hydrogel today in clinic -Primary Dressing Covered/Secured with Dry Gauze & Roll Gauze, Secured with Tape -Other Covering nurses hat Treatment Response Procedure Tolerated Well Pain Scale: 0-10 Numeric Is Patient Pain Free? Yes WC - Visit Discharge Discharge Condition Stable Ambulatory Status Ambulatory, Walker Transportation Private Auto Notes: Pt to start Santyl when available. Facility Type Home Health Orders Sent Yes Charges/Coding Visit Charges Office Visits / Consults: 39022 OV L4 Est (25 modifier) Procedures Integumentary [id number]: [id number] [place] subq tissue 20 sq cm/< Add On Codes: 80036 [place] subq tissue add-on Assessment/Plan Assessment/Plan (1) Decubitus ulcer of right heel, stage 2: CODE(S): L89.612 - Pressure ulcer of right heel, stage 2 (2) History of total knee arthroplasty: CODE(S): Z96.659 - Presence of unspecified artificial knee joint (3) Diabetic polyneuropathy: CODE(S): E11.42 - Type 2 diabetes mellitus with diabetic polyneuropathy (4) Diabetes mellitus: CODE(S): E11.9 - Type 2 diabetes mellitus without complications (5) Lymphedema: CODE(S): I89.0 - Lymphedema, not elsewhere classified (6) Lower extremity edema: CODE(S): R60.0 - Localized edema PLAN: Plan Patient evaluated at the wound healing center. Wound care to his right heel ulcer is Santyl nickel thickness covered by dry gauze daily after washing ulcer with soap and water. Can put an ABD nurses hat over heel to prevent pressure on the ulcer. Encouraged increase protein intake with low carbs to help with blood sugars and wound healing. He has home health to assist with dressing changes. He is on Doxycycline as suppressive treatment since he had his left knee replaced. Follow up one week. Greater than 40 minutes spent with patient assessing, treatment, educating and reviewing old records and documenting.
[2022-08-23 09:29] VITALS: BP 159/91; PULSE 99; RESP 22; TEMP 35.9; BMI 46.5
--- NOTE | 2022-08-23 12:15 | PN.PCM_ITS ---
History of Present Illness Date of Service: 08/23/22 Chief Complaint: Right heel ulcer History of Wound: 66 year old male presents to the wound center for evaluation of his right heal ulcer. It started as a a pressure ulcer in February when he he was in TCU and it healed. It then became a blister right before his Left TKR surgery. He had his left knee replaced 07/14/22 at [facility]. 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 He also has a history of diabetes, HTN, lymphedema, hypercholesterolemia and PE that he is on Xerelto. He currently has home health. Progress of Wound: Right heel ulcer has slightly improved using the santyl. There continues to be an area that is thickened. Objective Data Objective Data Vital Signs: Vital Signs Temp Pulse Resp BP O2 Del Method 96.7 F L 99 22 H 159/91 H Room Air 08/23/22 09:29 08/23/22 09:29 08/23/22 09:29 08/23/22 09:29 08/16/22 10:00 Oxygen Delivery Method Room Air Weight: 343 lb Body Mass Index (BMI) 46.5 Charges/Coding Procedures Integumentary 111xxx-113xx: [id number] [place] subq tissue 20 sq cm/< Debridement Note Debridement Note Wound debrided: heel Laterality: Right Wound Grade/Stage: Stage II Type of Debridement: Excisional debridement Anesthesia Used: 5% Lidocaine Gel Depth: Down to and including healthy tissue and in the subcutaneous layer Percentage of wound debrided: 100 Instrument Used: 7mm curette Tissue Removed: devitalized tissue and slough Severity: Fat Layer Exposed Amount of bleeding with debridement: Mild Bleeding Controlled with: Pressure and Compression and gauze Patient tolerated procedure: Patient tolerated procedure well Post-Debridement Measurements and Additional Note: Post-Debridement Measurements/Treatment WC - Nurse 1 - General Ulcer Assessment Start: 08/16/22 10:00 Freq: Status: Active Protocol: NELL Activity Type Activity Date Activity User E-sign Co-sign Detail Recorded Client Recorded Date Recorded By Document 08/16/22 10:00 F [id number] 08/16/22 10:22 BMF Document 08/23/22 09:29 DL [id number] 08/23/22 09:34 DL 08/16/22 08/23/22 10:00 09:29 WC - Today's Visit Information Type of service Initial Visit Follow-up Visit (Physician/SENIOR CARE ASSISTANT ) Arrival Mode Ambulatory, Ambulatory Walker Transfer Assistance None None Accompanied by Patient Identification Verified (Name & Yes Yes ) Patient Requires Transmission-Based No Precautions Finger Stick Blood Sugar(mg/dl) (if 165 indicated): Blood Sugar Stated by Patient Height and Weight Height 6 ft Weight 343 lb Weight in Pounds 343.0 lbs Weight Measurement Method Estimated by Patient Body Mass Index (BMI) 46.5 46.5 BMI Classification Obese Obese BSA - Angie 2.68 Vital Signs Temperature (97.8 F-99.1 F) 96.1 F L 96.7 F L Temperature Source Temporal Temporal Pulse Rate (60-100) 107 H 99 Pulse Location Monitor Monitor Respiratory Rate (12-18) 16 22 H Respiratory rate source Observation Observation Oxygen Delivery Method Room Air Blood Pressure (90/60-120/80) 167/90 H 159/91 H Blood Pressure Mean (mm Hg) 115 113 Source Monitor Monitor Position Sitting Blood Pressure Location Left Forearm History Since Last Visit- (Skip if this is Patient's initial visit) Have you changed medications since your No last visit? Any new allergies or adverse reactions No Had a fall/change in ADL's that may No increase risk of falls Signs or symptoms of abuse and/or No neglect since last visit Have you been in the hospital since your No last visit? Has dressing in place as prescribed Yes Has compression in place as prescribed Yes Has offloadiing in place as prescribed Yes Experienced any changes in pain level or No management Left Footwear Regular Shoe Surgical Shoe with pressure relief insole Right Footwear Regular Shoe Regular Shoe Pain Scale: 0-10 Numeric Is Patient Pain Free? Yes Yes Lower Extremity Assessment/ Foot Assessment/ Toe Nail Assessment Right -Posterior Tibial Palpable No -Posterior Tibial Doppler Inaudible -Dorsalis Pedis Palpable No -Dorsalis Pedis Doppler Monophasic -Extremity Color Pale -Hair Growth on Legs No -Hair Growth on Toes No -Temperature of Extremity Cool -Other Deformity No -Prior Foot Ulcer No -Charcot Joint No -Prior Amputation No -Thick No -Discolored No -Deformed No -Improper Length & Hygeine No Left -Lower Extremity Comment (If N/A Above PULSES HAMPERED ) BY EDEMA -Posterior Tibial Palpable No -Posterior Tibial Doppler Inaudible -Dorsalis Pedis Palpable No -Dorsalis Pedis Doppler Monophasic -Extremity Color Pale -Hair Growth on Legs No -Hair Growth on Toes No -Temperature of Extremity Cool -Other Deformity No -Prior Foot Ulcer No -Charcot Joint No -Prior Amputation No -Thick Yes -Discolored Yes -Deformed No -Improper Length & Hygeine No Neuropathy Assessment Feet - Top Side and Bottom <Entered> (a) Communication Assessment Preferred language Kuwaiti Supervisor Polishing Required No Able to Read Yes Able to Write Yes Communication Tools None Right Hearing Abillity Normal Left Hearing Abillity Normal Visual Assistive Devices None Teaching Assessment Preferences Verbal,Written, Audio/Visual, Demonstration Barriers to Learning None Readiness To Learn Excellent Willingness to Engage in Self Management High Activies Readiness to Engage in Self Management High Activities Anxiety Level Calm Cooperation Cooperative Perception Coherent Interest in Health Problem Asks Questions Education Importance Acknowledges Need Does Patient Smoke tobacco or other No substances Smoking Status Former smoker Is Patient Diabetic Yes Functional Assessment Recent Decline in Ability to Perform Denies Any Declines 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 Needs that may affect No Treatment Plan (a) 1 - NEGATIVE WC - Nurse 1 - General Ulcer Measurement Start: 08/16/22 10:00 Freq: Status: Active Protocol: Activity Type Activity Date Activity User E-sign Co-sign Detail Recorded Client Recorded Date Recorded By Document 08/16/22 10:00 [facility] [id number] 08/16/22 10:22 [facility] Document 08/23/22 09:29 DL [id number] 08/23/22 09:34 DL 08/16/22 08/23/22 10:00 09:29 Wound Center Nurse 1 #1- R HEEL -Combined with other wound No -Current Size (cm) - Length 4.5 4.5 -Current Size (cm) - Width 4.3 4 -Current Size (cm) - Depth 0.1 0.1 -Total Square Cm 19.35 18.0 -Date of Last Picture (Recall this 08/16/22 field) -Photo Taken Yes Yes -Epithelialization None Present -Tunneling No -Undermining/Tunneling No -Circular Undermining No -Exudate Amt Large Small -Exudate Type Serosanguineous Sanguineous -Wound Margin Distinct, Distinct, Outline Outline Attached Attached -Granulation Amt Medium (34-66%) Medium (34-66%) -Granulation Quality Red Red -Slough/Fibrin Yes -Necrosis Amt Medium (34-66%) Medium (34-66%) -Necrotic Tissue Type Adherent Slough Adherent Slough -Structure Exposed N/A -Texture (Lianna-wound Skin Appearance) Assessed, Scarring Scarring -Moisture (Lianna-wound Skin Appearance) Assessed, No Abnormality Maceration -Color (Lianna-wound Skin Appearance) Assessed, No Abnormality Erythema,Palor -Temperature (Lianna-wound Skin No Abnormality Appearance) (Pt Warm) -Tenderness on Palpation (Lianna-wound No No Skin Appearance) -Ulcer Cleansing Rinsed/ Soap and Water Irrigated with Saline -Foul Odor after Cleansing No -Anesthetic Used 4% Lidocaine 5% Lidocaine Solution Gel Lower Limb Edema Present Yes Right Calf (cm) 46 Right Ankle (cm) 29.4 Left Calf (cm) 50.1 Left Ankle (cm) 33 WC - Nurse 2 - General Ulcer CM Notes Start: 08/16/22 10:00 Freq: Status: Active Protocol: Activity Type Activity Date Activity User E-sign Co-sign Detail Recorded Client Recorded Date Recorded By Document 08/16/22 10:50 [id number] 08/16/22 10:56 Document 08/23/22 09:44 [id number] 08/23/22 09:46 08/16/22 08/23/22 10:50 09:44 Wound Center Nurse 2 #1- R HEEL -Time 10:50 09:44 -Correct Patient Yes Yes -Correct Side, Site, Position Yes Yes -Correct Procedure Yes Yes -Procedure Performed Yes Yes -Type of Procedure Debridement Debridement -Clinical Debridement Subcutaneous Subcutaneous -Tissue Removed Subcutaneous Subcutaneous -Post Debridement (cm) - Length 4.5 4.2 -Post Debridement (cm) - Width 5.5 4 -Post Debridement (cm) - Depth 0.1 0.1 -Total Square (Post) (cm) 24.75 16.8 -Area of Debridement (cm) - Length 4.5 4.2 -Area of Debridement (cm) - Width 5.5 4.0 -Total Square (Area) (cm) 24.75 16.80 -Tunneling No No -Undermining/Tunneling No No -Circular Undermining No No -Wound/Ulcer Outcome Not Healed Not Healed -Ulcer Cleansing Rinsed/ Rinsed/ Irrigated with Irrigated with Saline Saline -Foul Odor after Cleansing No No -Bioengineered Tissue No No -Bleeding Controlled with Pressure Pressure -Treatment Response Procedure Procedure Tolerated Well Tolerated Well -Offloading No No -Debridement - Subq, 1st 20sq cm Yes Yes -Debridement, SubQ, ea addt'l 20sq cm 1 or part thereof Pain Scale: 0-10 Numeric Is Patient Pain Free? Yes Yes - Nurse 3 - General Ulcer D/C NN Start: 08/16/22 10:00 Freq: Status: Active Protocol: Activity Type Activity Date Activity User E-sign Co-sign Detail Recorded Client Recorded Date Recorded By Document 08/16/22 11:22 DL [id number] 08/16/22 11:34 DL Document 08/23/22 10:05 YASMINE [id number] 08/23/22 10:07 YASMINE 08/16/22 08/23/22 11:22 10:05 Wound Care Nurse 3 #1- R HEEL -Ulcer Cleansing Rinsed/ Rinsed/ Irrigated with Irrigated with Saline Saline -Foul Odor after Cleansing No No -Primary Dressing Applied C Hydrogel ($) -Other Dressing hydrogel today in clinic -Primary Dressing Covered/Secured with Dry Gauze & Dry Gauze & Roll Gauze, Roll Gauze, Secured with Secured with Tape Tape -Other Covering nurses hat Right -Compression Wrap Miguelangel Wrap Treatment Response Procedure Tolerated Well Pain Scale: 0-10 Numeric Is Patient Pain Free? Yes Yes - Visit Discharge Discharge Condition Stable Stable Ambulatory Status Ambulatory, Ambulatory, Walker Walker Transportation Private Auto Private Auto Medication Reconcilliation completed & Yes provided to patient/care provider Clinical Summary of Care Provided Yes Notes: Pt to start Santyl when available. Facility Type Home Health Orders Sent Yes Assessment/Plan Assessment/Plan (1) Decubitus ulcer of right heel, stage 2: CODE(S): L89.612 - Pressure ulcer of right heel, stage 2 (2) History of total knee arthroplasty: CODE(S): Z96.659 - Presence of unspecified artificial knee joint (3) Diabetic polyneuropathy: CODE(S): E11.42 - Type 2 diabetes mellitus with diabetic polyneuropathy (4) Diabetes mellitus: CODE(S): E11.9 - Type 2 diabetes mellitus without complications (5) Lymphedema: CODE(S): I89.0 - Lymphedema, not elsewhere classified (6) Lower extremity edema: CODE(S): R60.0 - Localized edema PLAN: Plan Patient evaluated at the wound healing center. Wound care to his right heel ulcer is Santyl nickel thickness covered by dry gauze daily after washing ulcer with soap and water. Can put an ABD nurses hat over heel to prevent pressure on the ulcer. Encouraged increase protein intake with low carbs to help with blood sugars and wound healing. He has home health to assist with dressing changes. He is on Doxycycline as suppressive treatment since he had his left knee replaced. Follow up one week.
[2022-08-30 10:22] VITALS: BP 158/84; PULSE 98; RESP 18; TEMP 36.4; BMI 46.5
--- NOTE | 2022-08-30 12:15 | PN.PCM_ITS ---
History of Present Illness Date of Service: 08/30/22 Chief Complaint: Right heel ulcer History of Wound: 66 year old male presents to the wound center for evaluation of his right heal ulcer. It started as a a pressure ulcer in February when he he was in TCU and it healed. It then became a blister right before his Left TKR surgery. He had his left knee replaced 07/14/22 at [facility]. 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 He also has a history of diabetes, HTN, lymphedema, hypercholesterolemia and PE that he is on Xerelto. He currently has home health. He denies any fever, chills, nausea and vomiting. Progress of Wound: Right heel ulcer is larger this week, he has more blistering, especially on the superior aspect of the ulcer, most likely caused by pressure either while sleeping or when wearing his shoes. The Santyl is improving the ulcer and able to start to remove some of the thickened/dry area. Objective Data Objective Data Vital Signs: Vital Signs Temp Pulse Resp BP O2 Del Method 97.5 F L 98 18 158/84 H Room Air 08/30/22 10:22 08/30/22 10:22 08/30/22 10:22 08/30/22 10:22 08/16/22 10:00 Oxygen Delivery Method Room Air Weight: 343 lb Body Mass Index (BMI) 46.5 Charges/Coding Procedures Integumentary 111xxx-113xx: [id number] [place] subq tissue 20 sq cm/< Debridement Note Debridement Note Wound debrided: heel Laterality: Right Wound Grade/Stage: Stage III Type of Debridement: Excisional debridement Anesthesia Used: 5% Lidocaine Gel Depth: Down to and including healthy tissue and in the subcutaneous layer Percentage of wound debrided: 100 Instrument Used: #15 blade Tissue Removed: devitalized tissue and slough Severity: Fat Layer Exposed Amount of bleeding with debridement: Mild Bleeding Controlled with: Pressure, Compression and gauze and Silver Nitrate Patient tolerated procedure: Patient tolerated procedure well Debridement Free Text: Able to remove some of the thickened area in the center of the ulcer. Removed the non viable tissue surrounding the ulcer that was caused most likely from pressure. Post-Debridement Measurements and Additional Note: Post-Debridement Measurements/Treatment WC - Nurse 1 - General Ulcer Assessment Start: 08/16/22 10:00 Freq: Status: Active Protocol: WC.LOWEXT Activity Type Activity Date Activity User E-sign Co-sign Detail Recorded Client Recorded Date Recorded By Document 08/16/22 10:[address] [facility] [id number] 08/16/22 10:22 BMF Document 08/23/22 09:29 DL [id number] 08/23/22 09:34 DL Document 08/30/22 10:22 JF [id number] 08/30/22 10:23 JF 08/16/22 08/23/22 08/30/22 10:00 09:29 10:22 WC - Today's Visit Information Type of service Initial Visit Follow-up Visit Follow-up Visit (Physician/CHILDREN'S ATTENDANT (Physician/CHILDREN'S ATTENDANT ) ) Arrival Mode Ambulatory, Ambulatory Ambulatory, Walker Walker Transfer Assistance None None Accompanied by Patient Identification Verified (Name & Yes Yes Yes ) Patient Requires Transmission-Based No No Precautions Finger Stick Blood Sugar(mg/dl) (if 165 indicated): Blood Sugar Stated by Patient Height and Weight Height 6 ft Weight 343 lb Weight in Pounds 343.0 lbs Weight Measurement Method Estimated by Patient Body Mass Index (BMI) 46.5 46.5 46.5 BMI Classification Obese Obese Obese BSA - Angie 2.68 Vital Signs Temperature (97.8 F-99.1 F) 96.1 F L 96.7 F L 97.5 F L Temperature Source Temporal Temporal Temporal Pulse Rate (60-100) 107 H 99 98 Pulse Location Monitor Monitor Monitor Respiratory Rate (12-18) 16 22 H 18 Respiratory rate source Observation Observation Observation Oxygen Delivery Method Room Air Blood Pressure (90/60-120/80) 167/90 H 159/91 H 158/84 H Blood Pressure Mean (mm Hg) 115 113 108 Source Monitor Monitor Monitor Position Sitting Sitting Blood Pressure Location Left Forearm Right Arm History Since Last Visit- (Skip if this is Patient's initial visit) Have you changed medications since your No No last visit? Any new allergies or adverse reactions No No Had a fall/change in ADL's that may No No increase risk of falls Signs or symptoms of abuse and/or No No neglect since last visit Have you been in the hospital since your No No last visit? Has dressing in place as prescribed Yes Yes Has compression in place as prescribed Yes Yes Has offloadiing in place as prescribed Yes Yes Experienced any changes in pain level or No No management Left Footwear Regular Shoe Surgical Shoe Regular Shoe with pressure relief insole Right Footwear Regular Shoe Regular Shoe Regular Shoe Pain Scale: 0-10 Numeric Is Patient Pain Free? Yes Yes Yes Lower Extremity Assessment/ Foot Assessment/ Toe Nail Assessment Right -Posterior Tibial Palpable No -Posterior Tibial Doppler Inaudible -Dorsalis Pedis Palpable No -Dorsalis Pedis Doppler Monophasic -Extremity Color Pale -Hair Growth on Legs No -Hair Growth on Toes No -Temperature of Extremity Cool -Other Deformity No -Prior Foot Ulcer No -Charcot Joint No -Prior Amputation No -Thick No -Discolored No -Deformed No -Improper Length & Hygeine No Left -Lower Extremity Comment (If N/A Above PULSES HAMPERED ) BY EDEMA -Posterior Tibial Palpable No -Posterior Tibial Doppler Inaudible -Dorsalis Pedis Palpable No -Dorsalis Pedis Doppler Monophasic -Extremity Color Pale -Hair Growth on Legs No -Hair Growth on Toes No -Temperature of Extremity Cool -Other Deformity No -Prior Foot Ulcer No -Charcot Joint No -Prior Amputation No -Thick Yes -Discolored Yes -Deformed No -Improper Length & Hygeine No Neuropathy Assessment Feet - Top Side and Bottom <Entered> (a) Communication Assessment Preferred language Czech 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 Able to Read Yes Able to Write Yes Communication Tools None Right Hearing Abillity Normal Left Hearing Abillity Normal Visual Assistive Devices None Teaching Assessment Preferences Verbal,Written, Audio/Visual, Demonstration Barriers to Learning None Readiness To Learn Excellent Willingness to Engage in Self Management High Activies Readiness to Engage in Self Management High Activities Anxiety Level Calm Cooperation Cooperative Perception Coherent Interest in Health Problem Asks Questions Education Importance Acknowledges Need Does Patient Smoke tobacco or other No substances Smoking Status Former smoker Is Patient Diabetic Yes Functional Assessment Recent Decline in Ability to Perform Denies Any Declines 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 [id number] 08/16/22 10:[address] [facility] Document 08/23/22 09:29 DL [id number] 08/23/22 09:34 DL Document 08/30/22 10:22 [id number] 08/30/22 10:23 JF 08/16/22 08/23/22 08/30/22 10:00 09:29 10:22 Wound Center Nurse 1 #1- R HEEL -Combined with other wound No No -Current Size (cm) - Length 4.5 4.5 3.6 -Current Size (cm) - Width 4.3 4 2.6 -Current Size (cm) - Depth 0.1 0.1 0.2 -Total Square Cm 19.35 18.0 9.36 -Date of Last Picture (Recall this 08/16/22 field) -Photo Taken Yes Yes Yes -Epithelialization None Present Medium 34-66% -Tunneling No No -Undermining/Tunneling No No -Circular Undermining No No -Exudate Amt Large Small Small -Exudate Type Serosanguineous Sanguineous Serosanguineous -Wound Margin Distinct, Distinct, Flat & Intact Outline Outline Attached Attached -Granulation Amt Medium (34-66%) Medium (34-66%) Medium (34-66%) -Granulation Quality Red Red Red -Slough/Fibrin Yes Yes -Necrosis Amt Medium (34-66%) Medium (34-66%) Medium (34-66%) -Necrotic Tissue Type Adherent Slough Adherent Slough Adherent Slough -Structure Exposed N/A N/A -Texture (Lianna-wound Skin Appearance) Assessed, Scarring Assessed Scarring -Moisture (Lianna-wound Skin Appearance) Assessed, No Abnormality Assessed,Dry/ Maceration Scaly -Color (Lianna-wound Skin Appearance) Assessed, No Abnormality Assessed Erythema,Palor -Temperature (Lianna-wound Skin No Abnormality No Abnormality Appearance) (Pt Warm) (Pt Warm) -Tenderness on Palpation (Lianna-wound No No No Skin Appearance) -Ulcer Cleansing Rinsed/ Soap and Water Soap and Water Irrigated with Saline -Foul Odor after Cleansing No No -Anesthetic Used 4% Lidocaine 5% Lidocaine 5% Lidocaine Solution Gel Gel Lower Limb Edema Present Yes No Right Calf (cm) 46 Right Ankle (cm) 29.4 Left Calf (cm) 50.1 Left Ankle (cm) 33 WC - Nurse 2 - General Ulcer CM Notes Start: 08/16/22 10:00 Freq: Status: Active Protocol: Activity Type Activity Date Activity User E-sign Co-sign Detail Recorded Client Recorded Date Recorded By Document 08/16/22 10:50 [id number] 08/16/22 10:56 Document 08/23/22 09:44 [id number] 08/23/22 09:46 Document 08/30/22 10:23 [id number] 08/30/22 10:40 08/16/22 08/23/22 08/30/22 10:50 09:44 10:23 Wound Center Nurse 2 #1- R HEEL -Time 10:50 09:44 10:25 -Correct Patient Yes Yes Yes -Correct Side, Site, Position Yes Yes Yes -Correct Procedure Yes Yes Yes -Procedure Performed Yes Yes Yes -Type of Procedure Debridement Debridement Debridement -Clinical Debridement Subcutaneous Subcutaneous Subcutaneous -Tissue Removed Subcutaneous Subcutaneous Subcutaneous -Post Debridement (cm) - Length 4.5 4.2 4.5 -Post Debridement (cm) - Width 5.5 4 3.8 -Post Debridement (cm) - Depth 0.1 0.1 0.2 -Total Square (Post) (cm) 24.75 16.8 17.10 -Area of Debridement (cm) - Length 4.5 4.2 4.5 -Area of Debridement (cm) - Width 5.5 4.0 3.8 -Total Square (Area) (cm) 24.75 16.80 17.10 -Tunneling No No No -Undermining/Tunneling No No No -Circular Undermining No No No -Wound/Ulcer Outcome Not Healed Not Healed Not Healed -Ulcer Cleansing Rinsed/ Rinsed/ Rinsed/ Irrigated with Irrigated with Irrigated with Saline Saline Saline -Foul Odor after Cleansing No No No -Bioengineered Tissue No No No -Bleeding Controlled with Pressure Pressure Pressure -Treatment Response Procedure Procedure Procedure Tolerated Well Tolerated Well Tolerated Well -Offloading No No No -Debridement - Subq, 1st 20sq cm Yes Yes Yes -Debridement, SubQ, ea addt'l 20sq cm 1 or part thereof Pain Scale: 0-10 Numeric Is Patient Pain Free? Yes Yes Yes WC - Nurse 3 - General Ulcer D/C NN Start: 08/16/22 10:00 Freq: Status: Active Protocol: Activity Type Activity Date Activity User E-sign Co-sign Detail Recorded Client Recorded Date Recorded By Document 08/16/22 11:22 DL [id number] 08/16/22 11:34 DL Document 08/23/22 10:05 YASMINE [id number] 08/23/22 10:07 JF Document 08/30/22 10:53 RB [id number] 08/30/22 10:54 RB 08/16/22 08/23/22 08/30/22 11:22 10:05 10:53 Wound Care Nurse 3 #1- R HEEL -Ulcer Cleansing Rinsed/ Rinsed/ Irrigated with Irrigated with Saline Saline -Foul Odor after Cleansing No No -Primary Dressing Applied C Hydrogel ($) -Other Dressing hydrogel today hydrogel in clinic -Primary Dressing Covered/Secured with Dry Gauze & Dry Gauze & Dry Gauze Roll Gauze, Roll Gauze, Secured with Secured with Tape Tape -Other Covering nurses hat Right -Compression Wrap Miguelangel Wrap -Other miguelangel Treatment Response Procedure Procedure Tolerated Well Tolerated Well Pain Scale: 0-10 Numeric Is Patient Pain Free? Yes Yes Yes WC - Visit Discharge Discharge Condition Stable Stable Stable Ambulatory Status Ambulatory, Ambulatory, Ambulatory, Walker Walker Walker Transportation Private Auto Private Auto Private Auto Medication Reconcilliation completed & Yes No provided to patient/care provider Clinical Summary of Care Provided Yes Yes Notes: Pt to start Santyl when available. 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 Wound care to his right heel ulcer is Santyl nickel thickness covered by dry gauze daily after washing ulcer with soap and water. Can put an ABD nurses hat over heel to prevent pressure on the ulcer. His ulcer has enlarged and is now into the fat tissue. He has been wearing Profo boots at night to keep his heel off the bed. Instructed to place pillow under right lower leg to float heel off bed. Discussed the importance of off loading. Instructed him to not wear his tennis shoes because that is probably causing pressure on his heel also. Will give him a postop shoe to wear to see it that helps. He states that he really is only wearing shoes when he goes to doctor appointments and wears slippers while at home. A wound culture was obtained today.? A positive culture will necessitate antibiotic therapy. Encouraged increase protein intake with low carbs to help with blood sugars and wound healing. He has home health to assist with dressing changes. He is on Doxycycline as suppressive treatment since he had his left knee replaced. Follow up one week.
[2022-09-07 13:00] VITALS: BP 147/76; PULSE 81; RESP 16; TEMP 36.6; BMI 46.5
--- NOTE | 2022-09-07 13:46 | PCM.WC.PN ---
History of Present Illness Date of Service: 09/07/22 Chief Complaint: Right heel ulcer History of Wound: 66 year old male presents to the wound center for evaluation of his right heal ulcer. It started as a a pressure ulcer in February when he he was in TCU and it healed. It then became a blister right before his Left TKR surgery. He had his left knee replaced 07/14/22 at [facility]. 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 He also has a history of diabetes, HTN, lymphedema, hypercholesterolemia and PE that he is on Xerelto. He currently has home health. Wound culture obtained on 08/30/22 which are positive for VRE, Kocuria kristinae and Corynebacterium striatum. Will start him on Linezolid since he is allergic to Penicillin. He denies any fever, chills, nausea and vomiting. Progress of Wound: Right heel ulcer is larger this week, it is extending medially on his heel. He has been trying to off load, but is having difficulty at night keeping his leg elevated on pillows. Objective Data Objective Data Vital Signs: Vital Signs Temp Pulse Resp BP O2 Del Method 98 F 81 16 147/76 H Room Air 09/07/22 13:00 09/07/22 13:00 09/07/22 13:00 09/07/22 13:00 09/07/22 13:00 Oxygen Delivery Method Room Air Weight: 343 lb Body Mass Index (BMI) 46.5 Lab / Micro Data Micro: Microbiology 08/30/22 Unknown Wound Abcess - Heel Right Gram Stain - Final 08/30/22 Unknown Wound Abcess - Heel Right Wound Culture - Final Vancomycin Resist. E. faecalis Kocuria kristinae Corynebacterium striatum 08/30/22 Unknown Wound Abcess - Heel Right Anaerobic Culture - Final Debridement Note Debridement Note Wound debrided: heel Laterality: Right Wound Grade/Stage: Stage III Type of Debridement: Excisional debridement Anesthesia Used: 5% Lidocaine Gel Depth: Down to and including healthy tissue and in the subcutaneous layer Percentage of wound debrided: 100 Instrument Used: 7mm curette and #15 blade Tissue Removed: devitalized tissue and slough Severity: Fat Layer Exposed Amount of bleeding with debridement: Mild Bleeding Controlled with: Pressure and Compression and gauze Patient tolerated procedure: Patient tolerated procedure well Post-Debridement Measurements and Additional Note: Post-Debridement Measurements/Treatment WC - Nurse 1 - General Ulcer Assessment Start: 08/16/22 10:00 Freq: Status: Active Protocol: NELL Activity Type Activity Date Activity User E-sign Co-sign Detail Recorded Client Recorded Date Recorded By Document 08/16/22 10:00 BMF [id number] 08/16/22 10:22 BMF Document 08/23/22 09:29 DL [id number] 08/23/22 09:34 DL Document 08/30/22 10:22 JF [id number] 08/30/22 10:23 JF Document 09/07/22 13:00 BM [id number] 09/07/22 13:11 BMF 08/16/22 08/23/22 08/30/22 10:00 09:29 10:22 WC - Today's Visit Information Type of service Initial Visit Follow-up Visit Follow-up Visit (Physician/ORNAMENTAL METAL WORKER HELPER (Physician/ORNAMENTAL METAL WORKER HELPER ) ) Arrival Mode Ambulatory, Ambulatory Ambulatory, Walker Walker Transfer Assistance None None Accompanied by Patient Identification Verified (Name & Yes Yes Yes ) Patient Requires Transmission-Based No No Precautions Finger Stick Blood Sugar(mg/dl) (if 165 indicated): Blood Sugar Stated by Patient Height and Weight Height 6 ft Weight 343 lb Weight in Pounds 343.0 lbs Weight Measurement Method Estimated by Patient Body Mass Index (BMI) 46.5 46.5 46.5 BMI Classification Obese Obese Obese BSA - Angie 2.68 Vital Signs Temperature (97.8 F-99.1 F) 96.1 F L 96.7 F L 97.5 F L Temperature Source Temporal Temporal Temporal Pulse Rate (60-100) 107 H 99 98 Pulse Location Monitor Monitor Monitor Respiratory Rate (12-18) 16 22 H 18 Respiratory rate source Observation Observation Observation Oxygen Delivery Method Room Air Blood Pressure (90/60-120/80) 167/90 H 159/91 H 158/84 H Blood Pressure Mean (mm Hg) 115 113 108 Source Monitor Monitor Monitor Position Sitting Sitting Blood Pressure Location Left Forearm Right Arm History Since Last Visit- (Skip if this is Patient's initial visit) Have you changed medications since your No No last visit? Any new allergies or adverse reactions No No Had a fall/change in ADL's that may No No increase risk of falls Signs or symptoms of abuse and/or No No neglect since last visit Have you been in the hospital since your No No last visit? Has dressing in place as prescribed Yes Yes Has compression in place as prescribed Yes Yes Has offloadiing in place as prescribed Yes Yes Experienced any changes in pain level or No No management Left Footwear Regular Shoe Surgical Shoe Regular Shoe with pressure relief insole Right Footwear Regular Shoe Regular Shoe Regular Shoe Pain Scale: 0-10 Numeric Is Patient Pain Free? Yes Yes Yes Lower Extremity Assessment/ Foot Assessment/ Toe Nail Assessment Right -Posterior Tibial Palpable No -Posterior Tibial Doppler Inaudible -Dorsalis Pedis Palpable No -Dorsalis Pedis Doppler Monophasic -Extremity Color Pale -Hair Growth on Legs No -Hair Growth on Toes No -Temperature of Extremity Cool -Other Deformity No -Prior Foot Ulcer No -Charcot Joint No -Prior Amputation No -Thick No -Discolored No -Deformed No -Improper Length & Hygeine No Left -Lower Extremity Comment (If N/A Above PULSES HAMPERED ) BY EDEMA -Posterior Tibial Palpable No -Posterior Tibial Doppler Inaudible -Dorsalis Pedis Palpable No -Dorsalis Pedis Doppler Monophasic -Extremity Color Pale -Hair Growth on Legs No -Hair Growth on Toes No -Temperature of Extremity Cool -Other Deformity No -Prior Foot Ulcer No -Charcot Joint No -Prior Amputation No -Thick Yes -Discolored Yes -Deformed No -Improper Length & Hygeine No Neuropathy Assessment Feet - Top Side and Bottom <Entered> (a) Communication Assessment Preferred language Ethiopian Counseling Services Director Required No Able to Read Yes Able to Write Yes Communication Tools None Right Hearing Abillity Normal Left Hearing Abillity Normal Visual Assistive Devices None Teaching Assessment Preferences Verbal,Written, Audio/Visual, Demonstration Barriers to Learning None Readiness To Learn Excellent Willingness to Engage in Self Management High Activies Readiness to Engage in Self Management High Activities Anxiety Level Calm Cooperation Cooperative Perception Coherent Interest in Health Problem Asks Questions Education Importance Acknowledges Need Does Patient Smoke tobacco or other No substances Smoking Status Former smoker Is Patient Diabetic Yes Functional Assessment Recent Decline in Ability to Perform Denies Any Declines Culture/Lutheran/Demo Event Specialist Cultural/Lutheran Needs that may affect No Treatment Plan 09/07/22 13:00 WC - Today's Visit Information Type of service Follow-up Visit (Physician/ORNAMENTAL METAL WORKER HELPER ) Arrival Mode Ambulatory Transfer Assistance None Accompanied by Patient Identification Verified (Name & Yes ) Patient Requires Transmission-Based No Precautions Finger Stick Blood Sugar(mg/dl) (if indicated): Blood Sugar Height and Weight Height Weight Weight in Pounds Weight Measurement Method Body Mass Index (BMI) 46.5 BMI Classification Obese BSA - Angie Vital Signs Temperature (97.8 F-99.1 F) 98 F Temperature Source Temporal Pulse Rate (60-100) 81 Pulse Location Monitor Respiratory Rate (12-18) 16 Respiratory rate source Observation Oxygen Delivery Method Room Air Blood Pressure (90/60-120/80) 147/76 H Blood Pressure Mean (mm Hg) 99 Source Monitor Position Sitting Blood Pressure Location Left Arm History Since Last Visit- (Skip if this is Patient's initial visit) Have you changed medications since your No last visit? Any new allergies or adverse reactions No Had a fall/change in ADL's that may No increase risk of falls Signs or symptoms of abuse and/or No neglect since last visit Have you been in the hospital since your No last visit? Has dressing in place as prescribed Yes Has compression in place as prescribed N/A Has offloadiing in place as prescribed Yes Experienced any changes in pain level or No management Left Footwear Regular Shoe Right Footwear Surgical Shoe with pressure relief insole Pain Scale: 0-10 Numeric Is Patient Pain Free? Yes Lower Extremity Assessment/ Foot Assessment/ Toe Nail Assessment Right -Posterior Tibial Palpable -Posterior Tibial Doppler -Dorsalis Pedis Palpable -Dorsalis Pedis Doppler -Extremity Color -Hair Growth on Legs -Hair Growth on Toes -Temperature of Extremity -Other Deformity -Prior Foot Ulcer -Charcot Joint -Prior Amputation -Thick -Discolored -Deformed -Improper Length & Hygeine Left -Lower Extremity Comment (If N/A Above ) -Posterior Tibial Palpable -Posterior Tibial Doppler -Dorsalis Pedis Palpable -Dorsalis Pedis Doppler -Extremity Color -Hair Growth on Legs -Hair Growth on Toes -Temperature of Extremity -Other Deformity -Prior Foot Ulcer -Charcot Joint -Prior Amputation -Thick -Discolored -Deformed -Improper Length & Hygeine Neuropathy Assessment Feet - Top Side and Bottom Communication Assessment Preferred human capital consultant Required Able to Read Able to Write Communication Tools Right Hearing Abillity Left Hearing Abillity Visual Assistive Devices Teaching Assessment Preferences Barriers to Learning Readiness To Learn Willingness to Engage in Self Management Activies Readiness to Engage in Self Management Activities Anxiety Level Cooperation Perception Interest in Health Problem Education Importance Does Patient Smoke tobacco or other substances Smoking Status Is Patient Diabetic Functional Assessment Recent Decline in Ability to Perform Culture/Lutheran/Demo Event Specialist Cultural/Lutheran Needs that may affect Treatment Plan (a) 1 - NEGATIVE WC - Nurse 1 - General Ulcer Measurement Start: 08/16/22 10:00 Freq: Status: Active Protocol: Activity Type Activity Date Activity User E-sign Co-sign Detail Recorded Client Recorded Date Recorded By Document 08/16/22 10:00 [facility] [id number] 08/16/22 10:22 BM Document 08/23/22 09:29 DL [id number] 08/23/22 09:34 DL Document 08/30/22 10:22 [id number] 08/30/22 10:23 JF Document 09/07/22 13:00 [facility] [id number] 09/07/22 13:11 BMF 08/16/22 08/23/22 08/30/22 10:00 09:29 10:22 Wound Center Nurse 1 #1- R HEEL -Combined with other wound No No -Current Size (cm) - Length 4.5 4.5 3.6 -Current Size (cm) - Width 4.3 4 2.6 -Current Size (cm) - Depth 0.1 0.1 0.2 -Total Square Cm 19.35 18.0 9.36 -Date of Last Picture (Recall this 08/16/22 field) -Photo Taken Yes Yes Yes -Epithelialization None Present Medium 34-66% -Tunneling No No -Undermining/Tunneling No No -Circular Undermining No No -Exudate Amt Large Small Small -Exudate Type Serosanguineous Sanguineous Serosanguineous -Wound Margin Distinct, Distinct, Flat & Intact Outline Outline Attached Attached -Granulation Amt Medium (34-66%) Medium (34-66%) Medium (34-66%) -Granulation Quality Red Red Red -Slough/Fibrin Yes Yes -Necrosis Amt Medium (34-66%) Medium (34-66%) Medium (34-66%) -Necrotic Tissue Type Adherent Slough Adherent Slough Adherent Slough -Structure Exposed N/A N/A -Texture (Lianna-wound Skin Appearance) Assessed, Scarring Assessed Scarring -Moisture (Lianna-wound Skin Appearance) Assessed, No Abnormality Assessed,Dry/ Maceration Scaly -Color (Lianna-wound Skin Appearance) Assessed, No Abnormality Assessed Erythema,Palor -Temperature (Lianna-wound Skin No Abnormality No Abnormality Appearance) (Pt Warm) (Pt Warm) -Tenderness on Palpation (Lianna-wound No No No Skin Appearance) -Ulcer Cleansing Rinsed/ Soap and Water Soap and Water Irrigated with Saline -Foul Odor after Cleansing No No -Anesthetic Used 4% Lidocaine 5% Lidocaine 5% Lidocaine Solution Gel Gel Lower Limb Edema Present Yes No Right Calf (cm) 46 Right Ankle (cm) 29.4 Left Calf (cm) 50.1 Left Ankle (cm) 33 09/07/22 13:00 Wound Center Nurse 1 #1- R HEEL -Combined with other wound No -Current Size (cm) - Length 4 -Current Size (cm) - Width 2.9 -Current Size (cm) - Depth 0.3 -Total Square Cm 11.6 -Date of Last Picture (Recall this 09/07/22 field) -Photo Taken Yes -Epithelialization None Present -Tunneling No -Undermining/Tunneling No -Circular Undermining No -Exudate Amt Medium -Exudate Type Serosanguineous -Wound Margin Distinct, Outline Attached -Granulation Amt Small (1-33%) -Granulation Quality Red -Slough/Fibrin Yes -Necrosis Amt Large (67-100%) -Necrotic Tissue Type Eschar -Structure Exposed -Texture (Lianna-wound Skin Appearance) Assessed, Scarring -Moisture (Lianna-wound Skin Appearance) Assessed -Color (Lianna-wound Skin Appearance) Assessed, Erythema -Temperature (Lianna-wound Skin No Abnormality Appearance) (Pt Warm) -Tenderness on Palpation (Lianna-wound No Skin Appearance) -Ulcer Cleansing Rinsed/ Irrigated with Saline -Foul Odor after Cleansing No -Anesthetic Used 5% Lidocaine Gel Lower Limb Edema Present Yes Right Calf (cm) 47.4 Right Ankle (cm) 28.4 Left Calf (cm) Left Ankle (cm) WC - Nurse 2 - General Ulcer CM Notes Start: 08/16/22 10:00 Freq: Status: Active Protocol: Activity Type Activity Date Activity User E-sign Co-sign Detail Recorded Client Recorded Date Recorded By Document 08/16/22 10:50 [id number] 08/16/22 10:56 Document 08/23/22 09:44 [id number] 08/23/22 09:46 Document 08/30/22 10:23 [id number] 08/30/22 10:40 Document 09/07/22 13:29 [id number] 09/07/22 13:39 08/16/22 08/23/22 08/30/22 10:50 09:44 10:23 Wound Center Nurse 2 #1- R HEEL -Time 10:50 09:44 10:25 -Correct Patient Yes Yes Yes -Correct Side, Site, Position Yes Yes Yes -Correct Procedure Yes Yes Yes -Procedure Performed Yes Yes Yes -Type of Procedure -Type of Procedure Debridement Debridement Debridement -Clinical Debridement Subcutaneous Subcutaneous Subcutaneous -Tissue Removed Subcutaneous Subcutaneous Subcutaneous -Post Debridement (cm) - Length 4.5 4.2 4.5 -Post Debridement (cm) - Width 5.5 4 3.8 -Post Debridement (cm) - Depth 0.1 0.1 0.2 -Total Square (Post) (cm) 24.75 16.8 17.10 -Area of Debridement (cm) - Length 4.5 4.2 4.5 -Area of Debridement (cm) - Width 5.5 4.0 3.8 -Total Square (Area) (cm) 24.75 16.80 17.10 -Tunneling No No No -Undermining/Tunneling No No No -Circular Undermining No No No -Wound/Ulcer Outcome Not Healed Not Healed Not Healed -Ulcer Cleansing Rinsed/ Rinsed/ Rinsed/ Irrigated with Irrigated with Irrigated with Saline Saline Saline -Foul Odor after Cleansing No No No -Bioengineered Tissue No No No -Bleeding Controlled with Pressure Pressure Pressure -Treatment Response Procedure Procedure Procedure Tolerated Well Tolerated Well Tolerated Well -Offloading No No No -Type of Offloading -Debridement - Subq, 1st 20sq cm Yes Yes Yes -Debridement, SubQ, ea addt'l 20sq cm 1 or part thereof Pain Scale: 0-10 Numeric Is Patient Pain Free? Yes Yes Yes 09/07/22 13:29 Wound Center Nurse 2 #1- R HEEL -Time 13:29 -Correct Patient Yes -Correct Side, Site, Position Yes -Correct Procedure Yes -Procedure Performed Yes -Type of Procedure Debridement -Type of Procedure -Clinical Debridement Subcutaneous -Tissue Removed Subcutaneous -Post Debridement (cm) - Length 4.0 -Post Debridement (cm) - Width 4.3 -Post Debridement (cm) - Depth 0.3 -Total Square (Post) (cm) 17.20 -Area of Debridement (cm) - Length 4.0 -Area of Debridement (cm) - Width 4.3 -Total Square (Area) (cm) 17.20 -Tunneling No -Undermining/Tunneling No -Circular Undermining No -Wound/Ulcer Outcome Not Healed -Ulcer Cleansing Rinsed/ Irrigated with Saline -Foul Odor after Cleansing No -Bioengineered Tissue No -Bleeding Controlled with Pressure -Treatment Response Procedure Tolerated Well -Offloading Yes -Type of Offloading Surgical Shoe -Debridement - Subq, 1st 20sq cm Yes -Debridement, SubQ, ea addt'l 20sq cm or part thereof Pain Scale: 0-10 Numeric Is Patient Pain Free? Yes - Nurse 3 - General Ulcer D/C NN Start: 08/16/22 10:00 Freq: Status: Active Protocol: Activity Type Activity Date Activity User E-sign Co-sign Detail Recorded Client Recorded Date Recorded By Document 08/16/22 11:22 DL [id number] 08/16/22 11:34 DL Document 08/23/22 10:05 YASMINE [id number] 08/23/22 10:07 JF Document 08/30/22 10:53 RB [id number] 08/30/22 10:54 RB Document 09/07/22 13:41 JF [id number] 09/07/22 13:42 JF 08/16/22 08/23/22 08/30/22 11:22 10:05 10:53 Wound Care Center Nurse 3 #1- R HEEL -Ulcer Cleansing Rinsed/ Rinsed/ Irrigated with Irrigated with Saline Saline -Foul Odor after Cleansing No No -Primary Dressing Applied C Hydrogel ($) -Other Dressing hydrogel today hydrogel in clinic -Primary Dressing Covered/Secured with Dry Gauze & Dry Gauze & Dry Gauze Roll Gauze, Roll Gauze, Secured with Secured with Tape Tape -Other Covering nurses hat Right -Compression Wrap -Compression Wrap Miguelangel Wrap -Other miguelangel Treatment Response Procedure Procedure Tolerated Well Tolerated Well Pain Scale: 0-10 Numeric Is Patient Pain Free? Yes Yes Yes WC - Visit Discharge Discharge Condition Stable Stable Stable Ambulatory Status Ambulatory, Ambulatory, Ambulatory, Walker Walker Walker Transportation Private Auto Private Auto Private Auto Accompanied by Medication Reconcilliation completed & Yes No provided to patient/care provider Clinical Summary of Care Provided Yes Yes Notes: Pt to start Santyl when available. Facility Type Home Health Orders Sent Yes 09/07/22 13:41 Wound Care Center Nurse 3 #1- R HEEL -Ulcer Cleansing Rinsed/ Irrigated with Saline -Foul Odor after Cleansing No -Primary Dressing Applied -Other Dressing collagen hydrogel -Primary Dressing Covered/Secured with Dry Gauze & Roll Gauze, Secured with Tape -Other Covering Right -Compression Wrap Miguelangel Wrap -Compression Wrap -Other Treatment Response Pain Scale: 0-10 Numeric Is Patient Pain Free? Yes WC - Visit Discharge Discharge Condition Stable Ambulatory Status Ambulatory, Walker Transportation Private Auto Accompanied by Medication Reconcilliation completed & Yes provided to patient/care provider Clinical Summary of Care Provided Yes Notes: Facility Type Orders Sent Assessment/Plan Assessment/Plan (1) Pressure ulcer of right heel, stage 3: CODE(S): L89.613 - Pressure ulcer of right heel, stage 3 (2) Non-healing ulcer of right foot with fat layer exposed: CODE(S): L97.512 - Non-pressure chronic ulcer of other part of right foot with fat layer exposed (3) VRE (vancomycin-resistant Enterococci) infection: CODE(S): A49.1 - Streptococcal infection, unspecified site; Z16.21 - Resistance to vancomycin (4) History of total knee arthroplasty: CODE(S): Z96.659 - Presence of unspecified artificial knee joint (5) Diabetic polyneuropathy: CODE(S): E11.42 - Type 2 diabetes mellitus with diabetic polyneuropathy (6) Diabetes mellitus: CODE(S): E11.9 - Type 2 diabetes mellitus without complications (7) Lymphedema: CODE(S): I89.0 - Lymphedema, not elsewhere classified (8) Lower extremity edema: CODE(S): R60.0 - Localized edema PLAN: Plan Patient evaluated at the wound healing center. Wound care to his right heel ulcer is Santyl nickel thickness covered by dry gauze daily after washing ulcer with soap and water. His ulcer has enlarged and is now into the fat tissue. He has been wearing Profo boots at night to keep his heel off the bed. Instructed to place pillow under right lower leg to float heel off bed. Discussed the importance of off loading, especially at night. He is now wearing postop shoe. I don't believe he could handle walking in a TCC because of the strain it would put on his left knee, and unsure he could use a knee walker. A wound culture was obtained 08/30/22 which was positive for VRE, Kocuria kristinae, and Corynebacterium striatum will start him on Linezolid due to him having a Penicillin allergy. Encouraged increase protein intake with low carbs to help with blood sugars and wound healing. He has home health to assist with dressing changes. He is on Doxycycline as suppressive treatment since he had his left knee replaced, this is prescribed by [facility]. Follow up one week.
== END 2022-09-12 23:59 | disposition home or self-care (01) ==
LOC: WC 13:00
PROVIDERS: PCP Internal Medicine; Visit Provider Nurse Practitioner Family
DX: E11.621 Type 2 diabetes mellitus with foot ulcer (principal); L89.613 Pressure ulcer of right heel, stage 3; L97.512 Non-pressure chronic ulcer of other part of right foot with fat layer exposed; E11.42 Type 2 diabetes mellitus with diabetic polyneuropathy; E66.01 Morbid (severe) obesity due to excess calories; Z68.42 Body mass index [BMI] 45.0-49.9, adult; Z79.4 Long term (current) use of insulin; A49.1 Streptococcal infection, unspecified site; Z16.21 Resistance to vancomycin; I89.0 Lymphedema, not elsewhere classified; R60.0 Localized edema; I10 Essential (primary) hypertension; E78.00 Pure hypercholesterolemia, unspecified; Z79.82 Long term (current) use of aspirin; Z79.01 Long term (current) use of anticoagulants; Z79.899 Other long term (current) drug therapy; Z87.891 Personal history of nicotine dependence; Z86.711 Personal history of pulmonary embolism; Z96.652 Presence of left artificial knee joint
CPT/HCPCS: 11042; 11045; 87070; 87075; 87077; 87186; 87205; 99214; G0463

== ENCOUNTER 2022-10-04 10:45 | Outpatient (RCR) | payer MEDICARE, BC, SELFPAY ==
[2022-09-13 00:13] VITALS: BP 147/76; PULSE 81; RESP 16; TEMP 36.6; BMI 46.5
[2022-09-13 11:42] VITALS: BP 157/80; PULSE 98; RESP 18; TEMP 36.3; BMI 46.5
--- NOTE | 2022-09-13 12:44 | PCM.WC.PN ---
History of Present Illness Date of Service: 09/13/22 Chief Complaint: Right heel ulcer History of Wound: 66 year old male presents to the wound center for evaluation of his right heal ulcer. It started as a a pressure ulcer in February when he he was in TCU and it healed. It then became a blister right before his Left TKR surgery. He had his left knee replaced 07/14/22 at [facility]. 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 He also has a history of diabetes, HTN, lymphedema, hypercholesterolemia and PE that he is on Xerelto. He currently has home health. Wound culture obtained on 08/30/22 which are positive for VRE, Kocuria kristinae and Corynebacterium striatum. Will start him on Linezolid since he is allergic to Penicillin. He denies any fever, chills, nausea and vomiting. Progress of Wound: Right heel ulcer is stable this week. The center of the ulcer is a nice beefy pink color, it is not as fibrous as it was last week. The lianna wound is stable, the maceration has resolved. He states he has been keeping his foot lifted up so no pressure is placed on them. Objective Data Objective Data Vital Signs: Vital Signs Temp Pulse Resp BP 97.3 F L 98 18 157/80 H 09/13/22 11:42 09/13/22 11:42 09/13/22 11:42 09/13/22 11:42 Weight: 343 lb Body Mass Index (BMI) 46.5 Charges/Coding Procedures Integumentary 111xxx-113xx: 97779 [place] subq tissue 20 sq cm/< Debridement Note Debridement Note Wound debrided: heel Laterality: Right Wound Grade/Stage: Stage III Type of Debridement: Excisional debridement Anesthesia Used: 5% Lidocaine Gel Depth: Down to and including healthy tissue and in the subcutaneous layer Percentage of wound debrided: 100 Instrument Used: 5mm curette Tissue Removed: devitalized tissue and slough Severity: Fat Layer Exposed Amount of bleeding with debridement: Mild Bleeding Controlled with: Pressure and Compression and gauze Patient tolerated procedure: Patient tolerated procedure well Post-Debridement Measurements and Additional Note: Post-Debridement Measurements/Treatment WC - Nurse 1 - General Ulcer Assessment Start: 09/13/22 11:42 Freq: Status: Active Protocol: NELL Activity Type Activity Date Activity User E-sign Co-sign Detail Recorded Client Recorded Date Recorded By Document 09/13/22 11:42 [id number] 09/13/22 11:43 09/13/22 11:42 - Today's Visit Information Type of service Follow-up Visit (Physician/MARKETING PROJECT MANAGER ) Arrival Mode Ambulatory, Walker Accompanied by Patient Identification Verified (Name & Yes ) Patient Requires Transmission-Based No Precautions Height and Weight Body Mass Index (BMI) 46.5 BMI Classification Obese Vital Signs Temperature (97.8 F-99.1 F) 97.3 F L Temperature Source Temporal Pulse Rate (60-100) 98 Pulse Location Monitor Respiratory Rate (12-18) 18 Respiratory rate source Observation Blood Pressure (90/60-120/80) 157/80 H Blood Pressure Mean (mm Hg) 105 Source Monitor Position Sitting Blood Pressure Location Left Forearm History Since Last Visit- (Skip if this is Patient's initial visit) Have you changed medications since your No last visit? Any new allergies or adverse reactions No Had a fall/change in ADL's that may No increase risk of falls Signs or symptoms of abuse and/or No neglect since last visit Has dressing in place as prescribed Yes Has compression in place as prescribed Yes Has offloadiing in place as prescribed Yes Experienced any changes in pain level or No management Left Footwear Regular Shoe Right Footwear Surgical Shoe with pressure relief insole Pain Scale: 0-10 Numeric Is Patient Pain Free? Yes - Nurse 1 - General Ulcer Measurement Start: 09/13/22 11:42 Freq: Status: Active Protocol: Activity Type Activity Date Activity User E-sign Co-sign Detail Recorded Client Recorded Date Recorded By Document 09/13/22 11:42 YASMINE [id number] 09/13/22 11:43 09/13/22 11:42 Wound Center Nurse 1 #1- R HEEL -Combined with other wound No -Current Size (cm) - Length 3.5 -Current Size (cm) - Width 3.9 -Current Size (cm) - Depth 0.5 -Total Square Cm 13.65 -Photo Taken No -Epithelialization Small 1-33% -Tunneling No -Undermining/Tunneling No -Circular Undermining No -Exudate Amt Small -Exudate Type Serosanguineous -Wound Margin Flat & Intact -Granulation Amt Medium (34-66%) -Granulation Quality Red -Slough/Fibrin Yes -Necrosis Amt Medium (34-66%) -Necrotic Tissue Type Adherent Slough -Structure Exposed N/A -Texture (Lianna-wound Skin Appearance) Assessed, Localized Edema -Moisture (Lianna-wound Skin Appearance) Assessed,Dry/ Scaly -Color (Lianna-wound Skin Appearance) Assessed -Temperature (Lianna-wound Skin No Abnormality Appearance) (Pt Warm) -Tenderness on Palpation (Lianna-wound No Skin Appearance) -Ulcer Cleansing Wound Cleanser -Foul Odor after Cleansing No -Anesthetic Used 5% Lidocaine Gel Lower Limb Edema Present NA LAM - Nurse 2 - General Ulcer CM Notes Start: 09/13/22 11:42 Freq: Status: Active Protocol: Activity Type Activity Date Activity User E-sign Co-sign Detail Recorded Client Recorded Date Recorded By Document 09/13/22 11:44 YASMINE [id number] 09/13/22 11:47 YASMINE 09/13/22 11:44 Wound Center Nurse 2 #1- R HEEL -Time 11:45 -Correct Patient Yes -Correct Side, Site, Position Yes -Correct Procedure Yes -Procedure Performed Yes -Type of Procedure Debridement -Clinical Debridement Subcutaneous -Tissue Removed Subcutaneous -Post Debridement (cm) - Length 4.2 -Post Debridement (cm) - Width 4.5 -Post Debridement (cm) - Depth 0.4 -Total Square (Post) (cm) 18.90 -Area of Debridement (cm) - Length 4.2 -Area of Debridement (cm) - Width 4.5 -Total Square (Area) (cm) 18.90 -Tunneling No -Undermining/Tunneling No -Circular Undermining No -Wound/Ulcer Outcome Not Healed -Ulcer Cleansing Rinsed/ Irrigated with Saline -Foul Odor after Cleansing No -Bioengineered Tissue No -Bleeding Controlled with Pressure -Treatment Response Procedure Tolerated Well -Offloading Yes -Type of Offloading Surgical Shoe -Assistive Device(s) Walker -Debridement - Subq, 1st 20sq cm Yes Pain Scale: 0-10 Numeric Is Patient Pain Free? Yes LAM - Nurse 3 - General Ulcer D/C NN Start: 09/13/22 11:42 Freq: Status: Active Protocol: Activity Type Activity Date Activity User E-sign Co-sign Detail Recorded Client Recorded Date Recorded By Document 09/13/22 11:58 [id number] 09/13/22 11:58 YASMINE 09/13/22 11:58 Wound Care Center Nurse 3 #1- R HEEL -Ulcer Cleansing Rinsed/ Irrigated with Saline -Foul Odor after Cleansing No -Other Dressing santyl -Primary Dressing Covered/Secured with Dry Gauze & Roll Gauze, Secured with Tape Right -Compression Wrap Miguelangel Wrap Pain Scale: 0-10 Numeric Is Patient Pain Free? 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: CODE(S): L97.512 - Non-pressure chronic ulcer of other part of right foot with fat layer exposed (3) VRE (vancomycin-resistant Enterococci) infection: CODE(S): A49.1 - Streptococcal infection, unspecified site; Z16.21 - Resistance to vancomycin (4) History of total knee arthroplasty: CODE(S): Z96.659 - Presence of unspecified artificial knee joint (5) Diabetic polyneuropathy: CODE(S): E11.42 - Type 2 diabetes mellitus with diabetic polyneuropathy (6) Diabetes mellitus: CODE(S): E11.9 - Type 2 diabetes mellitus without complications (7) Lymphedema: CODE(S): I89.0 - Lymphedema, not elsewhere classified (8) Lower extremity edema: CODE(S): R60.0 - Localized edema PLAN: Plan Patient evaluated at the wound healing center. Wound care to his right heel ulcer is Santyl nickel thickness covered by dry gauze daily after washing ulcer with soap and water. He has been doing a better job off-loading his right heel. Discussed the importance of off loading, especially at night. He is now wearing postop shoe. I don't believe he could handle walking in a TCC because of the strain it would put on his left knee, and unsure he could use a knee walker. A wound culture was obtained 08/30/22 which was positive for VRE, Kocuria kristinae, and Corynebacterium striatum continue Linezolid due to him having a Penicillin allergy. Encouraged increase protein intake with low carbs to help with blood sugars and wound healing. He has home health to assist with dressing changes. He is on Doxycycline as suppressive treatment since he had his left knee replaced, this is prescribed by [facility]. Follow up one week.
[2022-09-20 09:42] VITALS: BP 150/68; PULSE 91; RESP 22; TEMP 36; BMI 46.5
--- NOTE | 2022-09-20 10:44 | PN.PCM_ITS ---
History of Present Illness Date of Service: 09/20/22 Chief Complaint: Right heel ulcer History of Wound: 66 year old male presents to the wound center for evaluation of his right heal ulcer. It started as a a pressure ulcer in February when he he was in TCU and it healed. It then became a blister right before his Left TKR surgery. He had his left knee replaced 07/14/22 at [facility]. 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 He also has a history of diabetes, HTN, lymphedema, hypercholesterolemia and PE that he is on Xerelto. He currently has home health. Wound culture obtained on 08/30/22 which are positive for VRE, Kocuria kristinae and Corynebacterium striatum. Will start him on Linezolid since he is allergic to Penicillin. He denies any fever, chills, nausea and vomiting. Progress of Wound: Right heel ulcer is slightly improved. The center of the ulcer is a nice beefy pink color, it is not as fibrous as it was last week. The lianna wound is improving. He states he has been keeping his foot lifted up so no pressure is placed on them. Objective Data Objective Data Vital Signs: Vital Signs Temp Pulse Resp BP 96.8 F L 91 22 H 150/68 H 09/20/22 09:42 09/20/22 09:42 09/20/22 09:42 09/20/22 09:42 Weight: 343 lb Body Mass Index (BMI) 46.5 Charges/Coding Procedures Integumentary 111xxx-113xx: 95481 [place] subq tissue 20 sq cm/< Debridement Note Debridement Note Wound debrided: heel Laterality: Right Wound Grade/Stage: Stage III Type of Debridement: Excisional debridement Anesthesia Used: 5% Lidocaine Gel Depth: Down to and including healthy tissue and in the subcutaneous layer Percentage of wound debrided: 100 Instrument Used: 5mm curette and #15 blade Tissue Removed: devitalized tissue and slough Severity: Fat Layer Exposed Amount of bleeding with debridement: Mild Bleeding Controlled with: Pressure and Compression and gauze Patient tolerated procedure: Patient tolerated procedure well Debridement Free Text: #[address] cross miller in the center of the non viable tissue. Post-Debridement Measurements and Additional Note: Post-Debridement Measurements/Treatment WC - Nurse 1 - General Ulcer Assessment Start: 09/13/22 11:42 Freq: Status: Active Protocol: NELL Activity Type Activity Date Activity User E-sign Co-sign Detail Recorded Client Recorded Date Recorded By Document 09/13/22 11:42 JF [id number] 09/13/22 11:43 JF Document 09/20/22 09:42 DL [id number] 09/20/22 09:50 DL Edit Result 09/20/22 09:42 DL (1) [id number] 09/20/22 09:52 DL (1) Pulse Rate (60-100) => 91 Blood Pressure (90/60-120/80) => 150/68 H Blood Pressure Mean (mm Hg) => 95 Source => Monitor 09/13/22 09/20/22 11:42 09:42 - Today's Visit Information Type of service Follow-up Visit Follow-up Visit (Physician/HYDRAULIC DREDGE OPERATOR (Physician/HYDRAULIC DREDGE OPERATOR ) ) Arrival Mode Ambulatory, Ambulatory, Walker Walker Transfer Assistance None Accompanied by Patient Identification Verified (Name & Yes Yes ) Patient Requires Transmission-Based No No Precautions Finger Stick Blood Sugar(mg/dl) (if 115 indicated): Blood Sugar Stated by Patient Height and Weight Body Mass Index (BMI) 46.5 46.5 BMI Classification Obese Obese Vital Signs Temperature (97.8 F-99.1 F) 97.3 F L 96.8 F L Temperature Source Temporal Temporal Pulse Rate (60-100) 98 91 Pulse Location Monitor Respiratory Rate (12-18) 18 22 H Respiratory rate source Observation Observation Blood Pressure (90/60-120/80) 157/80 H 150/68 H Blood Pressure Mean (mm Hg) 105 95 Source Monitor Monitor Position Sitting Blood Pressure Location Left Forearm History Since Last Visit- (Skip if this is Patient's initial visit) Have you changed medications since your No No last visit? Any new allergies or adverse reactions No No Had a fall/change in ADL's that may No No increase risk of falls Signs or symptoms of abuse and/or No No neglect since last visit Have you been in the hospital since your No last visit? Has dressing in place as prescribed Yes Yes Has compression in place as prescribed Yes Yes Has offloadiing in place as prescribed Yes Yes Experienced any changes in pain level or No No management Left Footwear Regular Shoe Right Footwear Surgical Shoe Surgical Shoe with pressure with pressure relief insole relief insole Pain Scale: 0-10 Numeric Is Patient Pain Free? Yes Yes LAM - Nurse 1 - General Ulcer Measurement Start: 09/13/22 11:42 Freq: Status: Active Protocol: Activity Type Activity Date Activity User E-sign Co-sign Detail Recorded Client Recorded Date Recorded By Document 09/13/22 11:42 JF [id number] 09/13/22 11:43 JF Document 09/20/22 09:42 DL [id number] 09/20/22 09:50 DL 09/13/22 09/20/22 11:42 09:42 Wound Center Nurse 1 #1- R HEEL -Combined with other wound No -Current Size (cm) - Length 3.5 2.7 -Current Size (cm) - Width 3.9 4 -Current Size (cm) - Depth 0.5 1 -Total Square Cm 13.65 10.8 -Photo Taken No Yes -Epithelialization Small 1-33% -Tunneling No -Undermining/Tunneling No -Circular Undermining No -Exudate Amt Small Medium -Exudate Type Serosanguineous Serosanguineous -Wound Margin Flat & Intact Distinct, Outline Attached -Granulation Amt Medium (34-66%) Medium (34-66%) -Granulation Quality Red -Slough/Fibrin Yes -Necrosis Amt Medium (34-66%) Medium (34-66%) -Necrotic Tissue Type Adherent Slough Adherent Slough -Structure Exposed N/A N/A -Texture (Lianna-wound Skin Appearance) Assessed, Scarring Localized Edema -Moisture (Lianna-wound Skin Appearance) Assessed,Dry/ No Abnormality Scaly -Color (Lianna-wound Skin Appearance) Assessed No Abnormality -Temperature (Lianna-wound Skin No Abnormality No Abnormality Appearance) (Pt Warm) (Pt Warm) -Tenderness on Palpation (Lianna-wound No No Skin Appearance) -Ulcer Cleansing Wound Cleanser Rinsed/ Irrigated with Saline -Foul Odor after Cleansing No No -Anesthetic Used 5% Lidocaine 5% Lidocaine Gel Gel Lower Limb Edema Present NA LAM - Nurse 2 - General Ulcer CM Notes Start: 09/13/22 11:42 Freq: Status: Active Protocol: Activity Type Activity Date Activity User E-sign Co-sign Detail Recorded Client Recorded Date Recorded By Document 09/13/22 11:44 [id number] 09/13/22 11:47 Document 09/20/22 10:12 [id number] 09/20/22 10:15 09/13/22 09/20/22 11:44 10:12 Wound Center Nurse 2 #1- R HEEL -Time 11:45 10:13 -Correct Patient Yes Yes -Correct Side, Site, Position Yes Yes -Correct Procedure Yes Yes -Procedure Performed Yes Yes -Type of Procedure Debridement Debridement -Clinical Debridement Subcutaneous Subcutaneous -Tissue Removed Subcutaneous Subcutaneous -Post Debridement (cm) - Length 4.2 3.4 -Post Debridement (cm) - Width 4.5 3.2 -Post Debridement (cm) - Depth 0.4 0.9 -Total Square (Post) (cm) 18.90 10.88 -Area of Debridement (cm) - Length 4.2 3.4 -Area of Debridement (cm) - Width 4.5 3.2 -Total Square (Area) (cm) 18.90 10.88 -Tunneling No No -Undermining/Tunneling No No -Circular Undermining No No -Wound/Ulcer Outcome Not Healed Not Healed -Ulcer Cleansing Rinsed/ Rinsed/ Irrigated with Irrigated with Saline Saline -Foul Odor after Cleansing No No -Bioengineered Tissue No No -Bleeding Controlled with Pressure Pressure -Treatment Response Procedure Procedure Tolerated Well Tolerated Well -Offloading Yes Yes -Type of Offloading Surgical Shoe Surgical Shoe -Assistive Device(s) Walker -Debridement - Subq, 1st 20sq cm Yes Yes Pain Scale: 0-10 Numeric Is Patient Pain Free? Yes Yes - Nurse 3 - General Ulcer D/C NN Start: 09/13/22 11:42 Freq: Status: Active Protocol: Activity Type Activity Date Activity User E-sign Co-sign Detail Recorded Client Recorded Date Recorded By Document 09/13/22 11:58 [id number] 09/13/22 11:58 Document 09/20/22 10:39 [facility] [id number] 09/20/22 10:40 [facility] 09/13/22 09/20/22 11:58 10:39 Wound Care Center Nurse 3 #1- R HEEL -Ulcer Cleansing Rinsed/ Rinsed/ Irrigated with Irrigated with Saline Saline -Foul Odor after Cleansing No No -Other Dressing santyl hydrogel -Primary Dressing Covered/Secured with Dry Gauze & Dry Gauze & Roll Gauze, Roll Gauze, Secured with Secured with Tape Tape -Other Covering heel hat Right -Compression Wrap Miguelangel Wrap Miguelangel Wrap Treatment Response Procedure Tolerated Well Pain Scale: 0-10 Numeric Is Patient Pain Free? Yes Yes WC - Visit Discharge Discharge Condition Stable Stable Ambulatory Status Ambulatory, Ambulatory, Walker Walker Transportation Private Auto Private Auto Medication Reconcilliation completed & Yes provided to patient/care provider Clinical Summary of Care Provided Yes Assessment/Plan Assessment/Plan (1) Pressure ulcer of right heel, stage 3: CODE(S): L89.613 - Pressure ulcer of right heel, stage 3 (2) Non-healing ulcer of right foot with fat layer exposed: CODE(S): L97.512 - Non-pressure chronic ulcer of other part of right foot with fat layer exposed (3) VRE (vancomycin-resistant Enterococci) infection: CODE(S): A49.1 - Streptococcal infection, unspecified site; Z16.21 - Resistance to vancomycin (4) History of total knee arthroplasty: CODE(S): Z96.659 - Presence of unspecified artificial knee joint (5) Diabetic polyneuropathy: CODE(S): E11.42 - Type 2 diabetes mellitus with diabetic polyneuropathy (6) Diabetes mellitus: CODE(S): E11.9 - Type 2 diabetes mellitus without complications (7) Lymphedema: CODE(S): I89.0 - Lymphedema, not elsewhere classified (8) Lower extremity edema: CODE(S): R60.0 - Localized edema PLAN: Plan Patient evaluated at the wound healing center. Wound care to his right heel ulcer is Santyl nickel thickness covered by dry gauze daily after washing ulcer with soap and water. He has been doing a better job off-loading his right heel for the past week. Discussed the importance of off loading, especially at night. He is now wearing postop shoe. I don't believe he could handle walking in a TCC because of the strain it would put on his left knee, and unsure he could use a knee walker. A wound culture was obtained 08/30/22 which was positive for VRE, Kocuria kristinae, and Corynebacterium striatum continue Linezolid due to him having a Penicillin allergy. Encouraged increase protein intake with low carbs to help with blood sugars and wound healing. He has home health to assist with dressing changes. He is on Doxycycline as suppressive treatment since he had his left knee replaced, this is prescribed by [facility]. Follow up two weeks.
[2022-09-27 11:21] VITALS: BP 128/72; PULSE 82; RESP 18; TEMP 36.4; BMI 46.5
--- NOTE | 2022-09-27 12:41 | RAD_ITS ---
STUDY: X-RAY - RIGHT FOOT CLINICAL: Male, 66 years old. Heel ulcer. TECHNIQUE: 3 view(s) of the foot. COMPARISON: March 2020. FINDINGS: Osteopenia. Moderate arthrosis of the tibiotalar joint. Mild arthrosis of the subtalar joint. Large superior and inferior calcaneal spurs. Moderate arthrosis of the midfoot. Moderate arthrosis of the TMT joints. Moderate arthrosis of the MTP and IP joints with hammertoe deformities. Diffuse soft tissue swelling with ossification of the distal Achilles tendon, unchanged. RAD/Foot min 3 Views IMPRESSION: Osteopenia with diffuse osteoarthritic changes. Diffuse soft tissue swelling with ossification of the distal Achilles tendon. No acute abnormality or evidence of erosive changes. Electronically Signed: Roberto Waite, at 9:30 EST ,
--- NOTE | 2022-09-27 12:42 | PCM.WC.PN ---
History of Present Illness Date of Service: 09/27/22 Chief Complaint: Right heel ulcer History of Wound: 66 year old male presents to the wound center for evaluation of his right heal ulcer. It started as a a pressure ulcer in February when he he was in TCU and it healed. It then became a blister right before his Left TKR surgery. He had his left knee replaced 07/14/22 at [facility]. 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 He also has a history of diabetes, HTN, lymphedema, hypercholesterolemia and PE that he is on Xerelto. He currently has home health. Wound culture obtained on 08/30/22 which are positive for VRE, Kocuria kristinae and Corynebacterium striatum. Will start him on Linezolid since he is allergic to Penicillin. He denies any fever, chills, nausea and vomiting. Progress of Wound: Right heel ulcer is slightly improved. The center of the ulcer is starting to become less fibrous. The lianna wound is improving. He states he has been keeping his foot lifted up so no pressure is placed on them. Objective Data Objective Data Vital Signs: Vital Signs Temp Pulse Resp BP 97.5 F L 82 18 128/72 H 09/27/22 11:21 09/27/22 11:21 09/27/22 11:21 09/27/22 11:21 Weight: 343 lb Body Mass Index (BMI) 46.5 Charges/Coding Procedures Integumentary [id number]: [id number] [place] subq tissue 20 sq cm/< Debridement Note Debridement Note Wound debrided: heel Laterality: Right Wound Grade/Stage: Stage III Type of Debridement: Excisional debridement Anesthesia Used: 5% Lidocaine Gel Depth: Down to and including healthy tissue and in the subcutaneous layer Percentage of wound debrided: 100 Instrument Used: 5mm curette and #15 blade Tissue Removed: devitalized tissue and slough Severity: Fat Layer Exposed Amount of bleeding with debridement: Mild Bleeding Controlled with: Pressure and Compression and gauze Patient tolerated procedure: Patient tolerated procedure well Post-Debridement Measurements and Additional Note: Post-Debridement Measurements/Treatment LAM - Nurse 1 - General Ulcer Assessment Start: 09/13/22 11:42 Freq: Status: Active Protocol: NELL Activity Type Activity Date Activity User E-sign Co-sign Detail Recorded Client Recorded Date Recorded By Document 09/13/22 11:42 JF [id number] 09/13/22 11:43 JF Document 09/20/22 09:42 DL [id number] 09/20/22 09:50 DL Edit Result 09/20/22 09:42 DL (1) [id number] 09/20/22 09:52 DL Document 09/27/22 11:21 RB [id number] 09/27/22 11:34 RB (1) Pulse Rate (60-100) => 91 Blood Pressure (90/60-120/80) => 150/68 H Blood Pressure Mean (mm Hg) => 95 Source => Monitor 09/13/22 09/20/22 09/27/22 11:42 09:42 11:21 WC - Today's Visit Information Type of service Follow-up Visit Follow-up Visit Follow-up Visit (Physician/LINER MACHINE OPERATOR (Physician/LINER MACHINE OPERATOR (Physician/LINER MACHINE OPERATOR ) ) ) Arrival Mode Ambulatory, Ambulatory, Ambulatory Walker Walker Transfer Assistance None None Accompanied by Patient Identification Verified (Name & Yes Yes Yes ) Patient Requires Transmission-Based No No No Precautions Finger Stick Blood Sugar(mg/dl) (if 115 indicated): Blood Sugar Stated by Patient Height and Weight Body Mass Index (BMI) 46.5 46.5 46.5 BMI Classification Obese Obese Obese Vital Signs Temperature (97.8 F-99.1 F) 97.3 F L 96.8 F L 97.5 F L Temperature Source Temporal Temporal Temporal Pulse Rate (60-100) 98 91 82 Pulse Location Monitor Monitor Respiratory Rate (12-18) 18 22 H 18 Respiratory rate source Observation Observation Observation Blood Pressure (90/60-120/80) 157/80 H 150/68 H 128/72 H Blood Pressure Mean (mm Hg) 105 95 90 Source Monitor Monitor Monitor Position Sitting Semi-Fowlers Blood Pressure Location Left Forearm Left Arm History Since Last Visit- (Skip if this is Patient's initial visit) Have you changed medications since your No No No last visit? Any new allergies or adverse reactions No No No Had a fall/change in ADL's that may No No No increase risk of falls Signs or symptoms of abuse and/or No No No neglect since last visit Have you been in the hospital since your No No last visit? Has dressing in place as prescribed Yes Yes Yes Has compression in place as prescribed Yes Yes Yes Has offloadiing in place as prescribed Yes Yes Yes Experienced any changes in pain level or No No management Left Footwear Regular Shoe Regular Shoe Right Footwear Surgical Shoe Surgical Shoe Surgical Shoe with pressure with pressure with pressure relief insole relief insole relief insole Pain Scale: 0-10 Numeric Is Patient Pain Free? Yes Yes Yes WC - Nurse 1 - General Ulcer Measurement Start: 09/13/22 11:42 Freq: Status: Active Protocol: Activity Type Activity Date Activity User E-sign Co-sign Detail Recorded Client Recorded Date Recorded By Document 09/13/22 11:42 JF [id number] 09/13/22 11:43 JF Document 09/20/22 09:42 DL [id number] 09/20/22 09:50 DL Document 09/27/22 11:21 RB [id number] 09/27/22 11:34 RB 09/13/22 09/20/22 09/27/22 11:42 09:42 11:21 Wound Center Nurse 1 #1- R HEEL -Combined with other wound No No -Current Size (cm) - Length 3.5 2.7 2.5 -Current Size (cm) - Width 3.9 4 3.3 -Current Size (cm) - Depth 0.5 1 0.1 -Total Square Cm 13.65 10.8 8.25 -Photo Taken No Yes -Epithelialization Small 1-33% -Tunneling No No -Undermining/Tunneling No No -Circular Undermining No No -Exudate Amt Small Medium Large -Exudate Type Serosanguineous Serosanguineous Serosanguineous -Wound Margin Flat & Intact Distinct, Distinct, Outline Outline Attached Attached -Granulation Amt Medium (34-66%) Medium (34-66%) Medium (34-66%) -Granulation Quality [place] -Slough/Fibrin Yes Yes -Necrosis Amt Medium (34-66%) Medium (34-66%) Medium (34-66%) -Necrotic Tissue Type Adherent Slough Adherent Slough Adherent Slough -Structure Exposed N/A N/A N/A -Texture (Lianna-wound Skin Appearance) Assessed, Scarring Assessed Localized Edema -Moisture (Lianna-wound Skin Appearance) Assessed,Dry/ No Abnormality Assessed Scaly -Color (Lianna-wound Skin Appearance) Assessed No Abnormality Assessed -Temperature (Lianna-wound Skin No Abnormality No Abnormality No Abnormality Appearance) (Pt Warm) (Pt Warm) (Pt Warm) -Tenderness on Palpation (Lianna-wound No No No Skin Appearance) -Ulcer Cleansing Wound Cleanser Rinsed/ Wound Cleanser Irrigated with Saline -Foul Odor after Cleansing No No No -Anesthetic Used 5% Lidocaine 5% Lidocaine 5% Lidocaine Gel Gel Gel Lower Limb Edema Present NA Yes Right Calf (cm) 46.2 Right Ankle (cm) 28 WC - Nurse 2 - General Ulcer CM Notes Start: 09/13/22 11:42 Freq: Status: Active Protocol: Activity Type Activity Date Activity User E-sign Co-sign Detail Recorded Client Recorded Date Recorded By Document 09/13/22 11:44 [id number] 09/13/22 11:47 Document 09/20/22 10:12 [id number] 09/20/22 10:15 Document 09/27/22 11:42 [id number] 09/27/22 11:44 RB 09/13/22 09/20/22 09/27/22 11:44 10:12 11:42 Wound Center Nurse 2 #1- R HEEL -Time 11:45 10:13 11:43 -Correct Patient Yes Yes Yes -Correct Side, Site, Position Yes Yes Yes -Correct Procedure Yes Yes Yes -Procedure Performed Yes Yes Yes -Type of Procedure Debridement Debridement Debridement -Clinical Debridement Subcutaneous Subcutaneous Subcutaneous -Tissue Removed Subcutaneous Subcutaneous Subcutaneous -Post Debridement (cm) - Length 4.2 3.4 3.0 -Post Debridement (cm) - Width 4.5 3.2 3.0 -Post Debridement (cm) - Depth 0.4 0.9 0.8 -Total Square (Post) (cm) 18.90 10.88 9.00 -Area of Debridement (cm) - Length 4.2 3.4 3.0 -Area of Debridement (cm) - Width 4.5 3.2 3.0 -Total Square (Area) (cm) 18.90 10.88 9.00 -Tunneling No No No -Undermining/Tunneling No No No -Circular Undermining No No No -Wound/Ulcer Outcome Not Healed Not Healed Not Healed -Ulcer Cleansing Rinsed/ Rinsed/ Rinsed/ Irrigated with Irrigated with Irrigated with Saline Saline Saline -Foul Odor after Cleansing No No No -Bioengineered Tissue No No No -Bleeding Controlled with Pressure Pressure Pressure -Treatment Response Procedure Procedure Procedure Tolerated Well Tolerated Well Tolerated Well -Offloading Yes Yes Yes -Type of Offloading Surgical Shoe Surgical Shoe Surgical Shoe -Assistive Device(s) Walker -Debridement - Subq, 1st 20sq cm Yes Yes Yes Pain Scale: 0-10 Numeric Is Patient Pain Free? Yes Yes Yes - Nurse 3 - General Ulcer D/C NN Start: 09/13/22 11:42 Freq: Status: Active Protocol: Activity Type Activity Date Activity User E-sign Co-sign Detail Recorded Client Recorded Date Recorded By Document 09/13/22 11:58 [id number] 09/13/22 11:58 Document 09/20/22 10:39 [facility] [id number] 09/20/22 10:40 [facility] Document 09/27/22 12:09 [id number] 09/27/22 12:09 RB 09/13/22 09/20/22 09/27/22 11:58 10:39 12:09 Wound Care Center Nurse 3 #1- R HEEL -Ulcer Cleansing Rinsed/ Rinsed/ Rinsed/ Irrigated with Irrigated with Irrigated with Saline Saline Saline -Foul Odor after Cleansing No No -Other Dressing santyl hydrogel santyl -Primary Dressing Covered/Secured with Dry Gauze & Dry Gauze & Dry Gauze,Dry Roll Gauze, Roll Gauze, Gauze & Roll Secured with Secured with Gauze,Secured Tape Tape with Tape -Other Covering heel hat nurses hat Right -Compression Wrap Miguelangel Wrap Miguelangel Wrap -Other miguelangel Treatment Response Procedure Procedure Tolerated Well Tolerated Well Pain Scale: 0-10 Numeric Is Patient Pain Free? Yes Yes Yes - Visit Discharge Discharge Condition Stable Stable Stable Ambulatory Status Ambulatory, Ambulatory, Ambulatory, Walker Walker Walker Transportation Private Auto Private Auto Private Auto Medication Reconcilliation completed & Yes No provided to patient/care provider Clinical Summary of Care Provided Yes Yes Assessment/Plan Assessment/Plan (1) Pressure ulcer of right heel, stage 3: CODE(S): L89.613 - Pressure ulcer of right heel, stage 3 (2) Non-healing ulcer of right foot with fat layer exposed: CODE(S): L97.512 - Non-pressure chronic ulcer of other part of right foot with fat layer exposed (3) VRE (vancomycin-resistant Enterococci) infection: CODE(S): A49.1 - Streptococcal infection, unspecified site; Z16.21 - Resistance to vancomycin (4) History of total knee arthroplasty: CODE(S): Z96.659 - Presence of unspecified artificial knee joint (5) Diabetic polyneuropathy: CODE(S): E11.42 - Type 2 diabetes mellitus with diabetic polyneuropathy (6) Diabetes mellitus: CODE(S): E11.9 - Type 2 diabetes mellitus without complications (7) Lymphedema: CODE(S): I89.0 - Lymphedema, not elsewhere classified (8) Lower extremity edema: CODE(S): R60.0 - Localized edema PLAN: Plan Patient evaluated at the wound healing center. Wound care to his right heel ulcer is Santyl nickel thickness covered by dry gauze daily after washing ulcer with soap and water. He has been doing a better job off-loading his right heel for the past week. Discussed the importance of off loading, especially at night. He is now wearing postop shoe. I don't believe he could handle walking in a TCC because of the strain it would put on his left knee, and unsure he could use a knee walker. A wound culture was obtained 08/30/22 which was positive for VRE, Kocuria kristinae, and Corynebacterium striatum Renewed Linezolid due to him having a Penicillin allergy. Encouraged increase protein intake with low carbs to help with blood sugars and wound healing. He has home health to assist with dressing changes. He is on Doxycycline as suppressive treatment since he had his left knee replaced, this is prescribed by Orthopaedics. Xray of right foot ordered. Follow up one week.
[2022-10-04 11:23] VITALS: BP 113/71; PULSE 82; RESP 18; TEMP 36.2; BMI 46.5
--- NOTE | 2022-10-04 12:58 | PCM.WC.PN ---
History of Present Illness Date of Service: 10/04/22 Chief Complaint: Right heel ulcer History of Wound: 66 year old male presents to the wound center for evaluation of his right heal ulcer. It started as a a pressure ulcer in February when he he was in TCU and it healed. It then became a blister right before his Left TKR surgery. He had his left knee replaced 07/14/22 at [facility]. 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 He also has a history of diabetes, HTN, lymphedema, hypercholesterolemia and PE that he is on Xerelto. He currently has home health. Wound culture obtained on 08/30/22 which are positive for VRE, Kocuria kristinae and Corynebacterium striatum. He will complete the Linezolid this week. Foot xray 09/27/22 - Osteopenia with diffuse osteoarthritic changes. Diffuse soft tissue swelling with ossification of the distal Achilles tendon. No acute abnormality or evidence of erosive changes. He denies any fever, chills, nausea and vomiting. Progress of Wound: Right heel ulcer is slightly improved. The center of the ulcer is starting to become less fibrous. The lianna wound is improving. He states he has been keeping his foot lifted up so no pressure is placed on them. He is complaining that his tongue is sore and food is not tasting normal. He is having increased pain with eating. No white patches on tongue. Objective Data Objective Data Vital Signs: Vital Signs Temp Pulse Resp BP 97.2 F L 82 18 113/71 10/04/22 11:23 10/04/22 11:23 10/04/22 11:23 10/04/22 11:23 Weight: 343 lb Body Mass Index (BMI) 46.5 Charges/Coding Procedures Integumentary 111xxx-113xx: [id number] [place] subq tissue 20 sq cm/< Debridement Note Debridement Note Wound debrided: heel Laterality: Right Wound Grade/Stage: Stage III Type of Debridement: Excisional debridement Anesthesia Used: 5% Lidocaine Gel Depth: Down to and including healthy tissue and in the subcutaneous layer Percentage of wound debrided: 100 Instrument Used: #15 blade (pick ups) Tissue Removed: devitalized tissue and slough Severity: Fat Layer Exposed Amount of bleeding with debridement: Mild Bleeding Controlled with: Pressure and Compression and gauze Patient tolerated procedure: Patient tolerated procedure well Post-Debridement Measurements and Additional Note: Post-Debridement Measurements/Treatment - Nurse 1 - General Ulcer Assessment Start: 09/13/22 11:42 Freq: Status: Active Protocol: NELL Activity Type Activity Date Activity User E-sign Co-sign Detail Recorded Client Recorded Date Recorded By Document 09/13/22 11:42 JF [id number] 09/13/22 11:43 JF Document 09/20/22 09:42 DL [id number] 09/20/22 09:50 DL Edit Result 09/20/22 09:42 DL (1) [id number] 09/20/22 09:52 DL Document 09/27/22 11:21 RB [id number] 09/27/22 11:34 RB Document 10/04/22 11:23 RB [id number] 10/04/22 11:25 RB (1) Pulse Rate (60-100) => 91 Blood Pressure (90/60-120/80) => 150/68 H Blood Pressure Mean (mm Hg) => 95 Source => Monitor 09/13/22 09/20/22 09/27/22 11:42 09:42 11:21 - Today's Visit Information Type of service Follow-up Visit Follow-up Visit Follow-up Visit (Physician/FORENSICS ANALYST (Physician/FORENSICS ANALYST (Physician/FORENSICS ANALYST ) ) ) Arrival Mode Ambulatory, Ambulatory, Ambulatory Walker Walker Transfer Assistance None None Accompanied by Patient Identification Verified (Name & Yes Yes Yes ) Patient Requires Transmission-Based No No No Precautions Finger Stick Blood Sugar(mg/dl) (if 115 indicated): Blood Sugar Stated by Patient Height and Weight Body Mass Index (BMI) 46.5 46.5 46.5 BMI Classification Obese Obese Obese Vital Signs Temperature (97.8 F-99.1 F) 97.3 F L 96.8 F L 97.5 F L Temperature Source Temporal Temporal Temporal Pulse Rate (60-100) 98 91 82 Pulse Location Monitor Monitor Respiratory Rate (12-18) 18 22 H 18 Respiratory rate source Observation Observation Observation Blood Pressure (90/60-120/80) 157/80 H 150/68 H 128/72 H Blood Pressure Mean (mm Hg) 105 95 90 Source Monitor Monitor Monitor Position Sitting Semi-Fowlers Blood Pressure Location Left Forearm Left Arm History Since Last Visit- (Skip if this is Patient's initial visit) Have you changed medications since your No No No last visit? Any new allergies or adverse reactions No No No Had a fall/change in ADL's that may No No No increase risk of falls Signs or symptoms of abuse and/or No No No neglect since last visit Have you been in the hospital since your No No last visit? Has dressing in place as prescribed Yes Yes Yes Has compression in place as prescribed Yes Yes Yes Has offloadiing in place as prescribed Yes Yes Yes Experienced any changes in pain level or No No management Left Footwear Regular Shoe Regular Shoe Right Footwear Surgical Shoe Surgical Shoe Surgical Shoe with pressure with pressure with pressure relief insole relief insole relief insole Pain Scale: 0-10 Numeric Is Patient Pain Free? Yes Yes Yes 10/04/22 11:23 WC - Today's Visit Information Type of service Follow-up Visit (Physician/FORENSICS ANALYST ) Arrival Mode Ambulatory Transfer Assistance None Accompanied by Patient Identification Verified (Name & Yes ) Patient Requires Transmission-Based No Precautions Finger Stick Blood Sugar(mg/dl) (if indicated): Blood Sugar Height and Weight Body Mass Index (BMI) 46.5 BMI Classification Obese Vital Signs Temperature (97.8 F-99.1 F) 97.2 F L Temperature Source Temporal Pulse Rate (60-100) 82 Pulse Location Monitor Respiratory Rate (12-18) 18 Respiratory rate source Observation Blood Pressure (90/60-120/80) 113/71 Blood Pressure Mean (mm Hg) 85 Source Monitor Position Semi-Fowlers Blood Pressure Location Left Arm History Since Last Visit- (Skip if this is Patient's initial visit) Have you changed medications since your No last visit? Any new allergies or adverse reactions No Had a fall/change in ADL's that may No increase risk of falls Signs or symptoms of abuse and/or No neglect since last visit Have you been in the hospital since your No last visit? Has dressing in place as prescribed Yes Has compression in place as prescribed Yes Has offloadiing in place as prescribed No Experienced any changes in pain level or No management Left Footwear Right Footwear Pain Scale: 0-10 Numeric Is Patient Pain Free? Yes - Nurse 1 - General Ulcer Measurement Start: 09/13/22 11:42 Freq: Status: Active Protocol: Activity Type Activity Date Activity User E-sign Co-sign Detail Recorded Client Recorded Date Recorded By Document 09/13/22 11:42 JF [id number] 09/13/22 11:43 JF Document 09/20/22 09:42 DL [id number] 09/20/22 09:50 DL Document 09/27/22 11:21 RB [id number] 09/27/22 11:34 RB Document 10/04/22 11:23 RB [id number] 10/04/22 11:25 RB 09/13/22 09/20/22 09/27/22 11:42 09:42 11:21 Wound Center Nurse 1 #1- R HEEL -Combined with other wound No No -Current Size (cm) - Length 3.5 2.7 2.5 -Current Size (cm) - Width 3.9 4 3.3 -Current Size (cm) - Depth 0.5 1 0.1 -Total Square Cm 13.65 10.8 8.25 -Photo Taken No Yes -Epithelialization Small 1-33% -Tunneling No No -Undermining/Tunneling No No -Circular Undermining No No -Exudate Amt Small Medium Large -Exudate Type Serosanguineous Serosanguineous Serosanguineous -Wound Margin Flat & Intact Distinct, Distinct, Outline Outline Attached Attached -Granulation Amt Medium (34-66%) Medium (34-66%) Medium (34-66%) -Granulation Quality Red [place] -Slough/Fibrin Yes Yes -Necrosis Amt Medium (34-66%) Medium (34-66%) Medium (34-66%) -Necrotic Tissue Type Adherent Slough Adherent Slough Adherent Slough -Structure Exposed N/A N/A N/A -Texture (Lianna-wound Skin Appearance) Assessed, Scarring Assessed Localized Edema -Moisture (Lianna-wound Skin Appearance) Assessed,Dry/ No Abnormality Assessed Scaly -Color (Lianna-wound Skin Appearance) Assessed No Abnormality Assessed -Temperature (Lianna-wound Skin No Abnormality No Abnormality No Abnormality Appearance) (Pt Warm) (Pt Warm) (Pt Warm) -Tenderness on Palpation (Lianna-wound No No No Skin Appearance) -Ulcer Cleansing Wound Cleanser Rinsed/ Wound Cleanser Irrigated with Saline -Foul Odor after Cleansing No No No -Anesthetic Used 5% Lidocaine 5% Lidocaine 5% Lidocaine Gel Gel Gel Lower Limb Edema Present NA Yes Right Calf (cm) 46.2 Right Ankle (cm) 28 10/04/22 11:23 Wound Center Nurse 1 #1- R HEEL -Combined with other wound No -Current Size (cm) - Length 3 -Current Size (cm) - Width 2.7 -Current Size (cm) - Depth 0.8 -Total Square Cm 8.1 -Photo Taken Yes -Epithelialization -Tunneling No -Undermining/Tunneling No -Circular Undermining No -Exudate Amt Large -Exudate Type Serosanguineous -Wound Margin Distinct, Outline Attached -Granulation Amt Medium (34-66%) -Granulation Quality [place] -Slough/Fibrin Yes -Necrosis Amt Medium (34-66%) -Necrotic Tissue Type Adherent Slough -Structure Exposed N/A -Texture (Lianna-wound Skin Appearance) Assessed -Moisture (Lianna-wound Skin Appearance) Assessed -Color (Lianna-wound Skin Appearance) Assessed -Temperature (Lianna-wound Skin No Abnormality Appearance) (Pt Warm) -Tenderness on Palpation (Lianna-wound No Skin Appearance) -Ulcer Cleansing Wound Cleanser -Foul Odor after Cleansing No -Anesthetic Used 5% Lidocaine Gel Lower Limb Edema Present Right Calf (cm) Right Ankle (cm) WC - Nurse 2 - General Ulcer CM Notes Start: 09/13/22 11:42 Freq: Status: Active Protocol: Activity Type Activity Date Activity User E-sign Co-sign Detail Recorded Client Recorded Date Recorded By Document 09/13/22 11:44 [id number] 09/13/22 11:47 Document 09/20/22 10:12 [id number] 09/20/22 10:15 Document 09/27/22 11:42 RB [id number] 09/27/22 11:44 RB Document 10/04/22 11:30 [id number] 10/04/22 11:44 09/13/22 09/20/22 09/27/22 11:44 10:12 11:42 Wound Center Nurse 2 #1- R HEEL -Time 11:45 10:13 11:43 -Correct Patient Yes Yes Yes -Correct Side, Site, Position Yes Yes Yes -Correct Procedure Yes Yes Yes -Procedure Performed Yes Yes Yes -Type of Procedure Debridement Debridement Debridement -Clinical Debridement Subcutaneous Subcutaneous Subcutaneous -Tissue Removed Subcutaneous Subcutaneous Subcutaneous -Post Debridement (cm) - Length 4.2 3.4 3.0 -Post Debridement (cm) - Width 4.5 3.2 3.0 -Post Debridement (cm) - Depth 0.4 0.9 0.8 -Total Square (Post) (cm) 18.90 10.88 9.00 -Area of Debridement (cm) - Length 4.2 3.4 3.0 -Area of Debridement (cm) - Width 4.5 3.2 3.0 -Total Square (Area) (cm) 18.90 10.88 9.00 -Tunneling No No No -Undermining/Tunneling No No No -Circular Undermining No No No -Wound/Ulcer Outcome Not Healed Not Healed Not Healed -Ulcer Cleansing Rinsed/ Rinsed/ Rinsed/ Irrigated with Irrigated with Irrigated with Saline Saline Saline -Foul Odor after Cleansing No No No -Bioengineered Tissue No No No -Bleeding Controlled with Pressure Pressure Pressure -Treatment Response Procedure Procedure Procedure Tolerated Well Tolerated Well Tolerated Well -Offloading Yes Yes Yes -Type of Offloading Surgical Shoe Surgical Shoe Surgical Shoe -Assistive Device(s) Walker -Debridement - Subq, 1st 20sq cm Yes Yes Yes Pain Scale: 0-10 Numeric Is Patient Pain Free? Yes Yes Yes 10/04/22 11:30 Wound Center Nurse 2 #1- R HEEL -Time 11:33 -Correct Patient Yes -Correct Side, Site, Position Yes -Correct Procedure Yes -Procedure Performed Yes -Type of Procedure Debridement -Clinical Debridement Subcutaneous -Tissue Removed Subcutaneous -Post Debridement (cm) - Length 3.3 -Post Debridement (cm) - Width 3.5 -Post Debridement (cm) - Depth 1.2 -Total Square (Post) (cm) 11.55 -Area of Debridement (cm) - Length 3.3 -Area of Debridement (cm) - Width 3.5 -Total Square (Area) (cm) 11.55 -Tunneling No -Undermining/Tunneling No -Circular Undermining No -Wound/Ulcer Outcome Not Healed -Ulcer Cleansing Rinsed/ Irrigated with Saline -Foul Odor after Cleansing No -Bioengineered Tissue No -Bleeding Controlled with Pressure -Treatment Response Procedure Tolerated Well -Offloading Yes -Type of Offloading Surgical Shoe -Assistive Device(s) -Debridement - Subq, 1st 20sq cm Yes Pain Scale: 0-10 Numeric Is Patient Pain Free? Yes - Nurse 3 - General Ulcer D/C NN Start: 09/13/22 11:42 Freq: Status: Active Protocol: Activity Type Activity Date Activity User E-sign Co-sign Detail Recorded Client Recorded Date Recorded By Document 09/13/22 11:58 [id number] 09/13/22 11:58 Document 09/20/22 10:39 [facility] [id number] 09/20/22 10:40 BM Document 09/27/22 12:09 RB [id number] 09/27/22 12:09 RB Document 10/04/22 12:04 RB [id number] 10/04/22 12:05 RB 09/13/22 09/20/22 09/27/22 11:58 10:39 12:09 Wound Care Center Nurse 3 #1- R HEEL -Ulcer Cleansing Rinsed/ Rinsed/ Rinsed/ Irrigated with Irrigated with Irrigated with Saline Saline Saline -Foul Odor after Cleansing No No -Other Dressing santyl hydrogel santyl -Primary Dressing Covered/Secured with Dry Gauze & Dry Gauze & Dry Gauze,Dry Roll Gauze, Roll Gauze, Gauze & Roll Secured with Secured with Gauze,Secured Tape Tape with Tape -Other Covering heel hat nurses hat Right -Compression Wrap Miguelangel Wrap Miguelangel Wrap -Other miguelangel Treatment Response Procedure Procedure Tolerated Well Tolerated Well Pain Scale: 0-10 Numeric Is Patient Pain Free? Yes Yes Yes - Visit Discharge Discharge Condition Stable Stable Stable Ambulatory Status Ambulatory, Ambulatory, Ambulatory, Walker Walker Walker Transportation Private Auto Private Auto Private Auto Medication Reconcilliation completed & Yes No provided to patient/care provider Clinical Summary of Care Provided Yes Yes 10/04/22 12:04 Wound Care Center Nurse 3 #1- R HEEL -Ulcer Cleansing Rinsed/ Irrigated with Saline -Foul Odor after Cleansing -Other Dressing santyl -Primary Dressing Covered/Secured with Dry Gauze,Dry Gauze & Roll Gauze,Secured with Tape -Other Covering abd nurses hat, kerlix , miguelangel Right -Compression Wrap -Other miguelangel Treatment Response Procedure Tolerated Well Pain Scale: 0-10 Numeric Is Patient Pain Free? Yes WC - Visit Discharge Discharge Condition Stable Ambulatory Status Ambulatory, Walker Transportation Private Auto Medication Reconcilliation completed & No provided to patient/care provider Clinical Summary of Care Provided Yes Assessment/Plan Assessment/Plan (1) Pressure ulcer of right heel, stage 3: CODE(S): L89.613 - Pressure ulcer of right heel, stage 3 (2) Non-healing ulcer of right foot with fat layer exposed: CODE(S): L97.512 - Non-pressure chronic ulcer of other part of right foot with fat layer exposed (3) VRE (vancomycin-resistant Enterococci) infection: CODE(S): A49.1 - Streptococcal infection, unspecified site; Z16.21 - Resistance to vancomycin (4) History of total knee arthroplasty: CODE(S): Z96.659 - Presence of unspecified artificial knee joint (5) Diabetic polyneuropathy: CODE(S): E11.42 - Type 2 diabetes mellitus with diabetic polyneuropathy (6) Diabetes mellitus: CODE(S): E11.9 - Type 2 diabetes mellitus without complications (7) Lymphedema: CODE(S): I89.0 - Lymphedema, not elsewhere classified (8) Lower extremity edema: CODE(S): R60.0 - Localized edema PLAN: Plan Patient evaluated at the wound healing center. Wound care to his right heel ulcer is Santyl nickel thickness covered by dry gauze daily after washing ulcer with soap and water. Will apply for Epicord/Epifix to this ulcer. He would benefit from an advanced wound healing product to help with wound healing. He has been doing a better job off-loading his right heel for the past week. Discussed the importance of off loading, especially at night. He is now wearing postop shoe. I don't believe he could handle walking in a TCC because of the strain it would put on his left knee, and unsure he could use a knee walker. A wound culture was obtained 08/30/22 which was positive for VRE, Kocuria kristinae, and Corynebacterium striatum will complete Linezolid this week. For his tongue pain will prescribe Nystatin Amador TID, most likely is thrush related. Encouraged increase protein intake with low carbs to help with blood sugars and wound healing. He has home health to assist with dressing changes. He is on Doxycycline as suppressive treatment since he had his left knee replaced, this is prescribed by Orthopaedics. Xray of right foot ordered. Follow up one week.
== END 2022-10-10 23:59 | disposition home or self-care (01) ==
LOC: WC 10:45
PROVIDERS: PCP Internal Medicine; Visit Provider Nurse Practitioner Family
DX: L89.613 Pressure ulcer of right heel, stage 3 (principal); I89.0 Lymphedema, not elsewhere classified; R60.0 Localized edema; E11.42 Type 2 diabetes mellitus with diabetic polyneuropathy; I10 Essential (primary) hypertension; E78.00 Pure hypercholesterolemia, unspecified; Z88.0 Allergy status to penicillin; Z79.4 Long term (current) use of insulin; Z79.82 Long term (current) use of aspirin; Z79.01 Long term (current) use of anticoagulants; Z79.899 Other long term (current) drug therapy; Z86.711 Personal history of pulmonary embolism; Z96.652 Presence of left artificial knee joint
CPT/HCPCS: 11042; 73630

== ENCOUNTER 2022-11-09 10:45 | Outpatient (RCR) | payer MEDICARE, BC, SELFPAY ==
[2022-10-11 00:12] VITALS: BP 113/71; PULSE 82; RESP 18; TEMP 36.2; BMI 46.5
[2022-10-11 10:54] VITALS: BP 147/90; PULSE 112; RESP 22; TEMP 36.3; BMI 46.5
--- NOTE | 2022-10-11 11:56 | PN.PCM_ITS ---
History of Present Illness Date of Service: 10/11/22 Chief Complaint: Right heel ulcer History of Wound: 66 year old male presents to the wound center for evaluation of his right heal ulcer. It started as a a pressure ulcer in February when he he was in TCU and it healed. It then became a blister right before his Left TKR surgery. He had his left knee replaced 07/14/22 at [facility]. 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 He also has a history of diabetes, HTN, lymphedema, hypercholesterolemia and PE that he is on Xerelto. He currently has home health. Wound culture obtained on 08/30/22 which are positive for VRE, Kocuria kristinae and Corynebacterium striatum. He will complete the Linezolid this week. Foot xray 09/27/22 - Osteopenia with diffuse osteoarthritic changes. Diffuse soft tissue swelling with ossification of the distal Achilles tendon. No acute abnormality or evidence of erosive changes. He denies any fever, chills, nausea and vomiting. Progress of Wound: Right heel ulcer is slightly improved. The center of the ulcer is starting to become less fibrous. The lianna wound is improving. He states he has been keeping his foot lifted up so no pressure is placed on them. He is tolerating the Nystatin troches for his oral thrush. Objective Data Objective Data Vital Signs: Vital Signs Temp Pulse Resp BP 97.3 F L 112 H 22 H 147/90 H 10/11/22 10:54 10/11/22 10:54 10/11/22 10:54 10/11/22 10:54 Weight: 343 lb Body Mass Index (BMI) 46.5 Charges/Coding Procedures Integumentary 150xxx-152xx: 31200 Skin sub graft face/nk/hf/g Debridement Note Debridement Note Wound debrided: heel Laterality: Right Wound Grade/Stage: Stage III Type of Debridement: Excisional debridement Anesthesia Used: 5% Lidocaine Gel Depth: Down to and including healthy tissue and in the subcutaneous layer Percentage of wound debrided: 100 Instrument Used: 5mm curette Tissue Removed: devitalized tissue and slough Severity: Fat Layer Exposed Amount of bleeding with debridement: Mild Bleeding Controlled with: Pressure and Compression and gauze Patient tolerated procedure: Patient tolerated procedure well Post-Debridement Measurements and Additional Note: Post-Debridement Measurements/Treatment LAM - Nurse 1 - General Ulcer Assessment Start: 10/11/22 10:47 Freq: Status: Active Protocol: NELL Activity Type Activity Date Activity User E-sign Co-sign Detail Recorded Client Recorded Date Recorded By Document 10/11/22 10:54 DL [id number] 10/11/22 10:58 DL 10/11/22 10:54 WC - Today's Visit Information Type of service Follow-up Visit (Physician/CONSUMER RELATIONS SPECIALIST ) Arrival Mode Ambulatory Transfer Assistance None Patient Identification Verified (Name & Yes ) Patient Requires Transmission-Based No Precautions Finger Stick Blood Sugar(mg/dl) (if 113 indicated): Blood Sugar Stated by Patient Height and Weight Body Mass Index (BMI) 46.5 BMI Classification Obese Vital Signs Temperature (97.8 F-99.1 F) 97.3 F L Temperature Source Temporal Pulse Rate (60-100) 112 H Pulse Location Monitor Respiratory Rate (12-18) 22 H Respiratory rate source Observation Blood Pressure (90/60-120/80) 147/90 H Blood Pressure Mean (mm Hg) 109 Source Monitor History Since Last Visit- (Skip if this is Patient's initial visit) Have you changed medications since your No last visit? Any new allergies or adverse reactions No Had a fall/change in ADL's that may No increase risk of falls Signs or symptoms of abuse and/or No neglect since last visit Have you been in the hospital since your No last visit? Has dressing in place as prescribed Yes Has compression in place as prescribed Yes Has offloadiing in place as prescribed Yes Experienced any changes in pain level or No management Right Footwear Surgical Shoe with pressure relief insole Pain Scale: 0-10 Numeric Is Patient Pain Free? Yes LAM - Nurse 1 - General Ulcer Measurement Start: 10/11/22 10:47 Freq: Status: Active Protocol: Activity Type Activity Date Activity User E-sign Co-sign Detail Recorded Client Recorded Date Recorded By Document 10/11/22 10:54 DL [id number] 10/11/22 10:58 DL 10/11/22 10:54 Wound Center Nurse 1 #1- R HEEL -Current Size (cm) - Length 3.1 -Current Size (cm) - Width 1.7 -Current Size (cm) - Depth 0.7 -Total Square Cm 5.27 -Photo Taken Yes -Exudate Amt Medium -Exudate Type Serosanguineous -Wound Margin Distinct, Outline Attached -Granulation Amt Medium (34-66%) -Granulation Quality Red -Necrosis Amt Medium (34-66%) -Necrotic Tissue Type Adherent Slough -Structure Exposed N/A -Texture (Lianna-wound Skin Appearance) Scarring -Moisture (Lianna-wound Skin Appearance) Maceration -Color (Lianna-wound Skin Appearance) No Abnormality -Temperature (Lianna-wound Skin No Abnormality Appearance) (Pt Warm) -Ulcer Cleansing Not Cleansed -Foul Odor after Cleansing No -Anesthetic Used 5% Lidocaine Gel WC - Nurse 2 - General Ulcer CM Notes Start: 10/11/22 10:47 Freq: Status: Active Protocol: Activity Type Activity Date Activity User E-sign Co-sign Detail Recorded Client Recorded Date Recorded By Document 10/11/22 11:16 YASMINE [id number] 10/11/22 11:18 JF Edit Result 10/11/22 11:16 JF (1) [id number] 10/11/22 11:20 JF (1) #1- R HEEL - Bleeding Controlled with Pressure => Pressure,Silver => Nitrate 10/11/22 11:16 Wound Center Nurse 2 -Time 11:16 -Correct Patient Yes -Correct Side, Site, Position Yes -Correct Procedure Yes -Procedure Performed Yes -Type of Procedure Debridement -Clinical Debridement Subcutaneous -Tissue Removed Subcutaneous -Post Debridement (cm) - Length 2.5 -Post Debridement (cm) - Width 3.3 -Post Debridement (cm) - Depth 1.2 -Total Square (Post) (cm) 8.25 -Area of Debridement (cm) - Length 2.5 -Area of Debridement (cm) - Width 3.3 -Total Square (Area) (cm) 8.25 -Tunneling No -Undermining/Tunneling No -Circular Undermining No -Wound/Ulcer Outcome Not Healed -Ulcer Cleansing Rinsed/ Irrigated with Saline -Foul Odor after Cleansing No -Bioengineered Tissue Yes -Type of Bioengineered Tissue Epicord -Expiration Date 07/13/27 -Product Lot Number [id number] -Percent Used 100 -Lot number of Saline Used [id number] -Bleeding Controlled with Pressure,Silver Nitrate -Treatment Response Procedure Tolerated Well -Offloading Yes -Type of Offloading Surgical Shoe -Debridement - Subq, 1st 20sq cm No -Apply Skin Sub - 1st 25 sq cm - Feet 1 -Epicord (per sq cm) 6 Pain Scale: 0-10 Numeric Is Patient Pain Free? Yes - Nurse 3 - General Ulcer D/C NN Start: 10/11/22 10:47 Freq: Status: Active Protocol: Activity Type Activity Date Activity User E-sign Co-sign Detail Recorded Client Recorded Date Recorded By Document 10/11/22 11:43 DL [id number] 10/11/22 11:45 DL 10/11/22 11:43 Wound Care Center Nurse 3 #1- R HEEL -Foul Odor after Cleansing No -Negative Pressure Wound Therapy Continue -Setting (mmHg) 125 -Negative Pressure is Continuous -Other Dressing Epicord -Other Covering SNAP -NPWT Application Charge NPWT </= 50 sq cm (disp) ($) Right -Compression Wrap Miguelangel Wrap Treatment Response Procedure Tolerated Well Pain Scale: 0-10 Numeric Is Patient Pain Free? Yes - Visit Discharge Discharge Condition Stable Transportation Private [facility] Facility Type [facility] Orders Sent Yes Assessment/Plan Assessment/Plan (1) Pressure ulcer of right heel, stage 3: CODE(S): L89.613 - Pressure ulcer of right heel, stage 3 (2) Non-healing ulcer of right foot with fat layer exposed: CODE(S): L97.512 - Non-pressure chronic ulcer of other part of right foot with fat layer exposed (3) VRE (vancomycin-resistant Enterococci) infection: CODE(S): A49.1 - Streptococcal infection, unspecified site; Z16.21 - Resistance to vancomycin (4) History of total knee arthroplasty: CODE(S): Z96.659 - Presence of unspecified artificial knee joint (5) Diabetic polyneuropathy: CODE(S): E11.42 - Type 2 diabetes mellitus with diabetic polyneuropathy (6) Diabetes mellitus: CODE(S): E11.9 - Type 2 diabetes mellitus without complications (7) Lymphedema: CODE(S): I89.0 - Lymphedema, not elsewhere classified (8) Lower extremity edema: CODE(S): R60.0 - Localized edema PLAN: Plan Patient evaluated at the wound healing center. He was approved for Epicord/Epifix to this ulcer. Wound care - Epicord expandible product #1 placed today. 100% of the product was used. Placed wound veil over top and secured with skin prep and steri strips. SNAP VAC placed at 125 mmHg pressure. Instructed not to get wound wet. If he develops issues with the SNAP VAC, he is to call the wound center of home health. Discussed the importance of off loading, especially at night. He is now wearing postop shoe. I don't believe he could handle walking in a TCC because of the strain it would put on his left knee, and unsure he could use a knee walker. A wound culture was obtained 08/30/22 which was positive for VRE, Kocuria kristinae, and Corynebacterium striatum will complete Linezolid this week. For his tongue pain will prescribe Nystatin Amador TID, most likely is thrush related. Encouraged increase protein intake with low carbs to help with blood sugars and wound healing. He has home health. He is on Doxycycline as suppressive treatment since he had his left knee replaced, this is prescribed by Orthopaedics. Follow up one week.
[2022-10-18 09:13] VITALS: BP 166/84; PULSE 96; RESP 20; TEMP 36.5; BMI 46.5
--- NOTE | 2022-10-18 11:01 | PCM.WC.PN ---
History of Present Illness Date of Service: 10/18/22 Chief Complaint: Right heel ulcer History of Wound: 66 year old male presents to the wound center for evaluation of his right heal ulcer. It started as a a pressure ulcer in February when he he was in TCU and it healed. It then became a blister right before his Left TKR surgery. He had his left knee replaced 07/14/22 at [facility]. 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 He also has a history of diabetes, HTN, lymphedema, hypercholesterolemia and PE that he is on Xerelto. He currently has home health. Wound culture obtained on 08/30/22 which are positive for VRE, Kocuria kristinae and Corynebacterium striatum. He will completed the Linezolid. Foot xray 09/27/22 - Osteopenia with diffuse osteoarthritic changes. Diffuse soft tissue swelling with ossification of the distal Achilles tendon. No acute abnormality or evidence of erosive changes. Wound care - He has been approved for Epicord and Epifix that is being topped with SNAP VAC. He denies any fever, chills, nausea and vomiting. Progress of Wound: Right heel ulcer has improved. He tolerated his first week with Epicord and SNAP VAC. Objective Data Objective Data Vital Signs: Vital Signs Temp Pulse Resp BP 97.7 F L 96 20 H 166/84 H 10/18/22 09:13 10/18/22 09:13 10/18/22 09:13 10/18/22 09:13 Weight: 343 lb Body Mass Index (BMI) 46.5 Charges/Coding Procedures Integumentary 150xxx-152xx: 63889 Skin sub graft face/nk/hf/g Debridement Note Debridement Note Wound debrided: lateral heel Laterality: Right Wound Grade/Stage: Stage III Type of Debridement: Excisional debridement Anesthesia Used: 5% Lidocaine Gel Depth: Down to and including healthy tissue and in the subcutaneous layer Percentage of wound debrided: 100 Instrument Used: 5mm curette Tissue Removed: devitalized tissue and slough Severity: Fat Layer Exposed Amount of bleeding with debridement: Mild Bleeding Controlled with: Pressure and Compression and gauze Patient tolerated procedure: Patient tolerated procedure well Post-Debridement Measurements and Additional Note: Post-Debridement Measurements/Treatment WC - Nurse 1 - General Ulcer Assessment Start: 10/11/22 10:47 Freq: Status: Active Protocol: NELL Activity Type Activity Date Activity User E-sign Co-sign Detail Recorded Client Recorded Date Recorded By Document 10/11/22 10:54 DL [id number] 10/11/22 10:58 DL Document 10/18/22 09:13 DL [id number] 10/18/22 09:23 DL 10/11/22 10/18/22 10:54 09:13 WC - Today's Visit Information Type of service Follow-up Visit Follow-up Visit (Physician/TOWER FOREMAN (Physician/TOWER FOREMAN ) ) Arrival Mode Ambulatory Ambulatory, Walker Transfer Assistance None None Patient Identification Verified (Name & Yes Yes ) Patient Requires Transmission-Based No No Precautions Finger Stick Blood Sugar(mg/dl) (if 113 170 indicated): Blood Sugar Stated by Stated by Patient Patient Height and Weight Body Mass Index (BMI) 46.5 46.5 BMI Classification Obese Obese Vital Signs Temperature (97.8 F-99.1 F) 97.3 F L 97.7 F L Temperature Source Temporal Temporal Pulse Rate (60-100) 112 H 96 Pulse Location Monitor Monitor Respiratory Rate (12-18) 22 H 20 H Respiratory rate source Observation Observation Blood Pressure (90/60-120/80) 147/90 H 166/84 H Blood Pressure Mean (mm Hg) 109 111 Source Monitor Monitor History Since Last Visit- (Skip if this is Patient's initial visit) Have you changed medications since your No No last visit? Any new allergies or adverse reactions No No Had a fall/change in ADL's that may No No increase risk of falls Signs or symptoms of abuse and/or No No neglect since last visit Have you been in the hospital since your No No last visit? Has dressing in place as prescribed Yes Yes Has compression in place as prescribed Yes Yes Has offloadiing in place as prescribed Yes Yes Experienced any changes in pain level or No No management Right Footwear Surgical Shoe Surgical Shoe with pressure with pressure relief insole relief insole Pain Scale: 0-10 Numeric Is Patient Pain Free? Yes Yes - Nurse 1 - General Ulcer Measurement Start: 10/11/22 10:47 Freq: Status: Active Protocol: Activity Type Activity Date Activity User E-sign Co-sign Detail Recorded Client Recorded Date Recorded By Document 10/11/22 10:54 DL [id number] 10/11/22 10:58 DL Document 10/18/22 09:13 DL [id number] 10/18/22 09:23 DL 10/11/22 10/18/22 10:54 09:13 Wound Center Nurse 1 #1- R HEEL -Current Size (cm) - Length 3.1 2 -Current Size (cm) - Width 1.7 2.5 -Current Size (cm) - Depth 0.7 1 -Total Square Cm 5.27 5.0 -Photo Taken Yes -Tunneling No -Undermining/Tunneling No -Circular Undermining No -Exudate Amt Medium Large -Exudate Type Serosanguineous Serosanguineous -Wound Margin Distinct, Thickened & Outline Rolled Under Attached -Granulation Amt Medium (34-66%) Medium (34-66%) -Granulation Quality [place] -Slough/Fibrin Yes -Necrosis Amt Medium (34-66%) Medium (34-66%) -Necrotic Tissue Type Adherent Slough Adherent Slough -Structure Exposed N/A N/A -Texture (Lianna-wound Skin Appearance) Scarring Assessed -Moisture (Lianna-wound Skin Appearance) Maceration Maceration -Color (Lianna-wound Skin Appearance) No Abnormality Assessed -Temperature (Lianna-wound Skin No Abnormality No Abnormality Appearance) (Pt Warm) (Pt Warm) -Tenderness on Palpation (Lianna-wound No Skin Appearance) -Ulcer Cleansing Not Cleansed Wound Cleanser -Foul Odor after Cleansing No No -Anesthetic Used 5% Lidocaine 5% Lidocaine Gel Gel WC - Nurse 2 - General Ulcer CM Notes Start: 10/11/22 10:47 Freq: Status: Active Protocol: Activity Type Activity Date Activity User E-sign Co-sign Detail Recorded Client Recorded Date Recorded By Document 10/11/22 11:16 [id number] 10/11/22 11:18 JF Edit Result 10/11/22 11:16 JF (1) [id number] 10/11/22 11:20 JF Document 10/18/22 09:49 JF [id number] 10/18/22 09:51 JF (1) #1- R HEEL - Bleeding Controlled with Pressure => Pressure,Silver => Nitrate 10/11/22 10/18/22 11:16 09:49 Wound Center Nurse 2 #1- R HEEL -Time 11:16 09:49 -Correct Patient Yes Yes -Correct Side, Site, Position Yes Yes -Correct Procedure Yes Yes -Procedure Performed Yes Yes -Type of Procedure Debridement Debridement -Clinical Debridement Subcutaneous Subcutaneous -Tissue Removed Subcutaneous Subcutaneous -Post Debridement (cm) - Length 2.5 3.0 -Post Debridement (cm) - Width 3.3 3.4 -Post Debridement (cm) - Depth 1.2 0.9 -Total Square (Post) (cm) 8.25 10.20 -Area of Debridement (cm) - Length 2.5 3.0 -Area of Debridement (cm) - Width 3.3 3.4 -Total Square (Area) (cm) 8.25 10.20 -Tunneling No No -Undermining/Tunneling No No -Circular Undermining No No -Wound/Ulcer Outcome Not Healed Not Healed -Ulcer Cleansing Rinsed/ Rinsed/ Irrigated with Irrigated with Saline Saline -Foul Odor after Cleansing No No -Bioengineered Tissue Yes Yes -Type of Bioengineered Tissue Epicord Epicord -Expiration Date 07/13/27 07/13/27 -Product Lot Number [id number] -Percent Used 100 100 -Lot number of Saline Used [id number] -Bleeding Controlled with Pressure,Silver Pressure Nitrate -Treatment Response Procedure Procedure Tolerated Well Tolerated Well -Offloading Yes Yes -Type of Offloading Surgical Shoe Surgical Shoe -Debridement - Subq, 1st 20sq cm No No -Apply Skin Sub - 1st 25 sq cm - Feet 1 1 -Epicord (per sq cm) 6 6 Pain Scale: 0-10 Numeric Is Patient Pain Free? Yes Yes WC - Nurse 3 - General Ulcer D/C NN Start: 10/11/22 10:47 Freq: Status: Active Protocol: Activity Type Activity Date Activity User E-sign Co-sign Detail Recorded Client Recorded Date Recorded By Document 10/11/22 11:43 DL [id number] 10/11/22 11:45 DL Document 10/18/22 10:17 DL [id number] 10/18/22 10:22 DL 10/11/22 10/18/22 11:43 10:17 Wound Care Center Nurse 3 #1- R HEEL -Ulcer Cleansing Rinsed/ Irrigated with Saline -Foul Odor after Cleansing No No -Negative Pressure Wound Therapy Continue Continue -Setting (mmHg) 125 125 -Negative Pressure is Continuous Continuous -Other Dressing Epicord Epicord -Other Covering SNAP ABD -NPWT Application Charge NPWT </= 50 sq NPWT </= 50 sq cm (disp) ($) cm ($) Right -Compression Wrap Miguelangel Wrap Miguelangel Wrap Treatment Response Procedure Procedure Tolerated Well Tolerated Well Pain Scale: 0-10 Numeric Is Patient Pain Free? Yes Yes WC - Visit Discharge Discharge Condition Stable Stable Ambulatory Status Ambulatory, Walker Transportation Private Auto Private Auto Facility Type [facility] Orders Sent Yes Yes Assessment/Plan Assessment/Plan (1) Pressure ulcer of right heel, stage 3: CODE(S): L89.613 - Pressure ulcer of right heel, stage 3 (2) Non-healing ulcer of right foot with fat layer exposed: CODE(S): L97.512 - Non-pressure chronic ulcer of other part of right foot with fat layer exposed (3) VRE (vancomycin-resistant Enterococci) infection: CODE(S): A49.1 - Streptococcal infection, unspecified site; Z16.21 - Resistance to vancomycin (4) History of total knee arthroplasty: CODE(S): Z96.659 - Presence of unspecified artificial knee joint (5) Diabetic polyneuropathy: CODE(S): E11.42 - Type 2 diabetes mellitus with diabetic polyneuropathy (6) Diabetes mellitus: CODE(S): E11.9 - Type 2 diabetes mellitus without complications (7) Lymphedema: CODE(S): I89.0 - Lymphedema, not elsewhere classified (8) Lower extremity edema: CODE(S): R60.0 - Localized edema PLAN: Plan Patient evaluated at the wound healing center. He was approved for Epicord/Epifix to this ulcer. Wound care - Epicord expandible product #2 placed today. 100% of the product was used. Placed wound veil over top and secured with skin prep and steri strips. SNAP VAC placed at 125 mmHg pressure. Instructed not to get wound wet. If he develops issues with the SNAP VAC, he is to call the wound center of home health. Discussed the importance of off loading, especially at night. He is now wearing postop shoe. I don't believe he could handle walking in a TCC because of the strain it would put on his left knee, and unsure he could use a knee walker. A wound culture was obtained 08/30/22 which was positive for VRE, Kocuria kristinae, and Corynebacterium striatum will complete Linezolid. For his tongue pain/thrush will renew Nystatin Amador TID. He has noticed an improvement since starting the nystatin. Encouraged increase protein intake with low carbs to help with blood sugars and wound healing. He has home health. He is on Doxycycline as suppressive treatment since he had his left knee replaced, this is prescribed by Orthopaedics. Follow up one week.
[2022-10-25 09:23] VITALS: BP 162/85; PULSE 100; RESP 18; TEMP 36.1; BMI 46.5
--- NOTE | 2022-10-25 10:19 | PCM.WC.PN ---
History of Present Illness Date of Service: 10/25/22 Chief Complaint: Right heel ulcer History of Wound: 66 year old male presents to the wound center for evaluation of his right heal ulcer. It started as a a pressure ulcer in February when he he was in TCU and it healed. It then became a blister right before his Left TKR surgery. He had his left knee replaced 07/14/22 at [facility]. 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 He also has a history of diabetes, HTN, lymphedema, hypercholesterolemia and PE that he is on Xerelto. He currently has home health. Wound culture obtained on 08/30/22 which are positive for VRE, Kocuria kristinae and Corynebacterium striatum. He will completed the Linezolid. Foot xray 09/27/22 - Osteopenia with diffuse osteoarthritic changes. Diffuse soft tissue swelling with ossification of the distal Achilles tendon. No acute abnormality or evidence of erosive changes. Wound care - He has been approved for Epicord and Epifix that is being topped with SNAP VAC. He denies any fever, chills, nausea and vomiting. Progress of Wound: Right heel ulcer has small amount of improvement. The edges of the ulcer are macerated. Unsure if this from the SNAP VAC. Objective Data Objective Data Vital Signs: Vital Signs Temp Pulse Resp BP 97 F L 100 18 162/85 H 10/25/22 09:23 10/25/22 09:23 10/25/22 09:23 10/25/22 09:23 Weight: 343 lb Body Mass Index (BMI) 46.5 Charges/Coding Procedures Integumentary 150xxx-152xx: [id number] Skin sub graft face/nk/hf/g Debridement Note Debridement Note Wound debrided: lateral heel Laterality: Right Wound Grade/Stage: Stage III Type of Debridement: Excisional debridement Anesthesia Used: 5% Lidocaine Gel Depth: Down to and including healthy tissue and in the subcutaneous layer Percentage of wound debrided: 100 Instrument Used: 5mm curette Tissue Removed: devitalized tissue and slough Severity: Fat Layer Exposed Amount of bleeding with debridement: Mild Bleeding Controlled with: Pressure and Compression and gauze Patient tolerated procedure: Patient tolerated procedure well Post-Debridement Measurements and Additional Note: Post-Debridement Measurements/Treatment WC - Nurse 1 - General Ulcer Assessment Start: 10/11/22 10:47 Freq: Status: Active Protocol: NELL Activity Type Activity Date Activity User E-sign Co-sign Detail Recorded Client Recorded Date Recorded By Document 10/11/22 10:54 DL [id number] 10/11/22 10:58 DL Document 10/18/22 09:13 DL [id number] 10/18/22 09:23 DL Document 10/25/22 09:23 RB [id number] 10/25/22 09:25 RB 10/11/22 10/18/22 10/25/22 10:54 09:13 09:23 WC - Today's Visit Information Type of service Follow-up Visit Follow-up Visit Follow-up Visit (Physician/ACCOUNT ENGINEER (Physician/ACCOUNT ENGINEER (Physician/ACCOUNT ENGINEER ) ) ) Arrival Mode Ambulatory Ambulatory, Ambulatory, Walker Walker Transfer Assistance None None None Patient Identification Verified (Name & Yes Yes Yes ) Patient Requires Transmission-Based No No No Precautions Finger Stick Blood Sugar(mg/dl) (if 113 170 indicated): Blood Sugar Stated by Stated by Patient Patient Height and Weight Body Mass Index (BMI) 46.5 46.5 46.5 BMI Classification Obese Obese Obese Vital Signs Temperature (97.8 F-99.1 F) 97.3 F L 97.7 F L 97 F L Temperature Source Temporal Temporal Temporal Pulse Rate (60-100) 112 H 96 100 Pulse Location Monitor Monitor Monitor Respiratory Rate (12-18) 22 H 20 H 18 Respiratory rate source Observation Observation Observation Blood Pressure (90/60-120/80) 147/90 H 166/84 H 162/85 H Blood Pressure Mean (mm Hg) 109 111 110 Source Monitor Monitor Monitor Position Semi-Fowlers Blood Pressure Location Left Arm History Since Last Visit- (Skip if this is Patient's initial visit) Have you changed medications since your No No No last visit? Any new allergies or adverse reactions No No No Had a fall/change in ADL's that may No No No increase risk of falls Signs or symptoms of abuse and/or No No No neglect since last visit Have you been in the hospital since your No No No last visit? Has dressing in place as prescribed Yes Yes Yes Has compression in place as prescribed Yes Yes No Has offloadiing in place as prescribed Yes Yes Yes Experienced any changes in pain level or No No No management Right Footwear Surgical Shoe Surgical Shoe with pressure with pressure relief insole relief insole Pain Scale: 0-10 Numeric Is Patient Pain Free? Yes Yes Yes WC - Nurse 1 - General Ulcer Measurement Start: 10/11/22 10:47 Freq: Status: Active Protocol: Activity Type Activity Date Activity User E-sign Co-sign Detail Recorded Client Recorded Date Recorded By Document 10/11/22 10:54 DL [id number] 10/11/22 10:58 DL Document 10/18/22 09:13 DL [id number] 10/18/22 09:23 DL Document 10/25/22 09:23 RB [id number] 10/25/22 09:25 RB 10/11/22 10/18/22 10/25/22 10:54 09:13 09:23 Wound Center Nurse 1 #1- R HEEL -Combined with other wound No -Current Size (cm) - Length 3.1 2 3 -Current Size (cm) - Width 1.7 2.5 3.2 -Current Size (cm) - Depth 0.7 1 1.2 -Total Square Cm 5.27 5.0 9.6 -Photo Taken Yes Yes -Tunneling No No -Undermining/Tunneling No No -Circular Undermining No No -Exudate Amt Medium Large Large -Exudate Type Serosanguineous Serosanguineous Serosanguineous -Wound Margin Distinct, Thickened & Thickened & Outline Rolled Under Rolled Under Attached -Granulation Amt Medium (34-66%) Medium (34-66%) Medium (34-66%) -Granulation Quality Red Kemmerer Kemmerer -Slough/Fibrin Yes Yes -Necrosis Amt Medium (34-66%) Medium (34-66%) Medium (34-66%) -Necrotic Tissue Type Adherent Slough Adherent Slough Adherent Slough -Structure Exposed N/A N/A N/A -Texture (Lianna-wound Skin Appearance) Scarring Assessed Assessed, Scarring -Moisture (Lianna-wound Skin Appearance) Maceration Maceration Assessed -Color (Lianna-wound Skin Appearance) No Abnormality Assessed Assessed -Temperature (Lianna-wound Skin No Abnormality No Abnormality No Abnormality Appearance) (Pt Warm) (Pt Warm) (Pt Warm) -Tenderness on Palpation (Lianna-wound No No Skin Appearance) -Ulcer Cleansing Not Cleansed Wound Cleanser Wound Cleanser -Foul Odor after Cleansing No No No -Anesthetic Used 5% Lidocaine 5% Lidocaine 5% Lidocaine Gel Gel Gel WC - Nurse 2 - General Ulcer CM Notes Start: 10/11/22 10:47 Freq: Status: Active Protocol: Activity Type Activity Date Activity User E-sign Co-sign Detail Recorded Client Recorded Date Recorded By Document 10/11/22 11:16 [id number] 10/11/22 11:18 JF Edit Result 10/11/22 11:16 JF (1) [id number] 10/11/22 11:20 JF Document 10/18/22 09:49 [id number] 10/18/22 09:51 Document 10/25/22 09:43 [id number] 10/25/22 09:52 JF (1) #1- R HEEL - Bleeding Controlled with Pressure => Pressure,Silver => Nitrate 10/11/22 10/18/22 10/25/22 11:16 09:49 09:43 Wound Center Nurse 2 #1- R HEEL -Time 11:16 09:49 09:43 -Correct Patient Yes Yes Yes -Correct Side, Site, Position Yes Yes Yes -Correct Procedure Yes Yes Yes -Procedure Performed Yes Yes Yes -Type of Procedure Debridement Debridement Debridement -Clinical Debridement Subcutaneous Subcutaneous Subcutaneous -Tissue Removed Subcutaneous Subcutaneous Subcutaneous -Post Debridement (cm) - Length 2.5 3.0 3.0 -Post Debridement (cm) - Width 3.3 3.4 3.5 -Post Debridement (cm) - Depth 1.2 0.9 0.8 -Total Square (Post) (cm) 8.25 10.20 10.50 -Area of Debridement (cm) - Length 2.5 3.0 3.0 -Area of Debridement (cm) - Width 3.3 3.4 3.5 -Total Square (Area) (cm) 8.25 10.20 10.50 -Tunneling No No No -Undermining/Tunneling No No No -Circular Undermining No No No -Wound/Ulcer Outcome Not Healed Not Healed Not Healed -Ulcer Cleansing Rinsed/ Rinsed/ Rinsed/ Irrigated with Irrigated with Irrigated with Saline Saline Saline -Foul Odor after Cleansing No No No -Bioengineered Tissue Yes Yes Yes -Type of Bioengineered Tissue Epicord Epicord Epicord -Expiration Date 07/13/27 07/13/27 06/13/27 -Product Lot Number [id number] -Percent Used 100 100 100 -Lot number of Saline Used [id number] -Bleeding Controlled with Pressure,Silver Pressure Pressure Nitrate -Treatment Response Procedure Procedure Procedure Tolerated Well Tolerated Well Tolerated Well -Offloading Yes Yes Yes -Type of Offloading Surgical Shoe Surgical Shoe Surgical Shoe -Debridement - Subq, 1st 20sq cm No No No -Apply Skin Sub - 1st 25 sq cm - Feet 1 1 1 -Epicord (per sq cm) 6 6 6 Pain Scale: 0-10 Numeric Is Patient Pain Free? Yes Yes Yes WC - Nurse 3 - General Ulcer D/C NN Start: 10/11/22 10:47 Freq: Status: Active Protocol: Activity Type Activity Date Activity User E-sign Co-sign Detail Recorded Client Recorded Date Recorded By Document 10/11/22 11:43 DL [id number] 10/11/22 11:45 DL Document 10/18/22 10:17 DL [id number] 10/18/22 10:22 DL Edit Result 10/18/22 10:17 DL (1) [id number] 10/19/22 07:25 PL Document 10/25/22 09:55 DL [id number] 10/25/22 09:58 DL (1) #1- R HEEL - NPWT Application Charge NPWT </= 50 sq cm => NPWT </= 50 sq cm ($) => (disp) ($) 10/11/22 10/18/22 10/25/22 11:43 10:17 09:55 Wound Care Center Nurse 3 #1- R HEEL -Ulcer Cleansing Rinsed/ Irrigated with Saline -Foul Odor after Cleansing No No No -Negative Pressure Wound Therapy Continue Continue -Setting (mmHg) 125 125 -Negative Pressure is Continuous Continuous -Primary Dressing Applied Aquacel Extra -Other Dressing Epicord Epicord Epicord -Primary Dressing Covered/Secured with Dry Gauze & Roll Gauze, Secured with Tape -Other Covering SNAP ABD Nurse Hat -NPWT Application Charge NPWT </= 50 sq NPWT </= 50 sq cm (disp) ($) cm (disp) ($) -Aquacel Extra 1 Right -Compression Wrap Miguelangel Wrap Miguelangel Wrap Miguelangel Wrap Treatment Response Procedure Procedure Procedure Tolerated Well Tolerated Well Tolerated Well Pain Scale: 0-10 Numeric Is Patient Pain Free? Yes Yes Yes WC - Visit Discharge Discharge Condition Stable Stable Stable Ambulatory Status Ambulatory, Ambulatory Walker Transportation Private Auto Private Auto Facility Type [facility] Orders Sent Yes Yes Assessment/Plan Assessment/Plan (1) Pressure ulcer of right heel, stage 3: CODE(S): L89.613 - Pressure ulcer of right heel, stage 3 (2) Non-healing ulcer of right foot with fat layer exposed: CODE(S): L97.512 - Non-pressure chronic ulcer of other part of right foot with fat layer exposed (3) VRE (vancomycin-resistant Enterococci) infection: CODE(S): A49.1 - Streptococcal infection, unspecified site; Z16.21 - Resistance to vancomycin (4) History of total knee arthroplasty: CODE(S): Z96.659 - Presence of unspecified artificial knee joint (5) Diabetic polyneuropathy: CODE(S): E11.42 - Type 2 diabetes mellitus with diabetic polyneuropathy (6) Diabetes mellitus: CODE(S): E11.9 - Type 2 diabetes mellitus without complications (7) Lymphedema: CODE(S): I89.0 - Lymphedema, not elsewhere classified (8) Lower extremity edema: CODE(S): R60.0 - Localized edema PLAN: Plan Patient evaluated at the wound healing center. He was approved for Epicord/Epifix to this ulcer. Edges of ulcer are macerated. Will hold the SNAP VAC this week to see if this is what causing the maceration. Wound care - Epicord expandible product #3 placed today. 100% of the product was used. Placed wound veil over top and secured with skin prep and steri strips. Will top with Aquacel to absorb moisture and top with gauze and nurse's hat dressing. Instructed not to get wound wet. Discussed the importance of off loading, especially at night. He is now wearing postop shoe. I don't believe he could handle walking in a TCC because of the strain it would put on his left knee, and unsure he could use a knee walker. A wound culture was obtained 08/30/22 which was positive for VRE, Kocuria kristinae, and Corynebacterium striatum completed Linezolid. For his tongue pain/thrush he is using Nystatin Amador TID. He has noticed an improvement since starting the nystatin. Encouraged increase protein intake with low carbs to help with blood sugars and wound healing. He has home health. He is on Doxycycline as suppressive treatment since he had his left knee replaced, this is prescribed by Orthopaedics. Follow up one week.
[2022-11-01 09:15] VITALS: BP 169/92; PULSE 86; RESP 20; TEMP 536.3; TEMP 997.4; BMI 46.5
--- NOTE | 2022-11-01 14:24 | PN.PCM_ITS ---
History of Present Illness Date of Service: 11/01/22 Chief Complaint: Right heel ulcer History of Wound: 66 year old male presents to the wound center for evaluation of his right heal ulcer. It started as a a pressure ulcer in February when he he was in TCU and it healed. It then became a blister right before his Left TKR surgery. He had his left knee replaced 07/14/22 at [facility]. 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 He also has a history of diabetes, HTN, lymphedema, hypercholesterolemia and PE that he is on Xerelto. He currently has home health. Wound culture obtained on 08/30/22 which are positive for VRE, Kocuria kristinae and Corynebacterium striatum. He will completed the Linezolid. Foot xray 09/27/22 - Osteopenia with diffuse osteoarthritic changes. Diffuse soft tissue swelling with ossification of the distal Achilles tendon. No acute abnormality or evidence of erosive changes. Wound care - He has been approved for Epicord and Epifix, he has had 3 application thus far of Epicord. He denies any fever, chills, nausea and vomiting. Progress of Wound: Right heel ulcer shows no improvement this week. There is large amount of callus surrounding the ulcer. The base of the ulcer continues to have depth, it is a nice beefy pink color. Concerned that he is not off loading as much as he should be. Objective Data Objective Data Vital Signs: Vital Signs Temp Pulse Resp BP 997.4 F H 86 20 H 169/92 H 11/01/22 09:15 11/01/22 09:15 11/01/22 09:15 11/01/22 09:15 Weight: 343 lb Body Mass Index (BMI) 46.5 Charges/Coding Procedures Integumentary 111xxx-113xx: 01900 [place] subq tissue 20 sq cm/< Procedures Musculoskeletal 20xxx-29xxx: 72232 APPLY RIGID LEG CAST (total contact cast) Debridement Note Debridement Note Wound debrided: lateral heel Laterality: Right Wound Grade/Stage: Stage III Type of Debridement: Excisional debridement Anesthesia Used: 5% Lidocaine Gel Depth: Down to and including healthy tissue and in the subcutaneous layer Percentage of wound debrided: 100 Instrument Used: 5mm curette and #15 blade Tissue Removed: devitalized tissue and slough Severity: Fat Layer Exposed Amount of bleeding with debridement: Mild Bleeding Controlled with: Pressure, Compression and gauze and Silver Nitrate (on one edge of the ulcer) Patient tolerated procedure: Patient tolerated procedure well Post-Debridement Measurements and Additional Note: Post-Debridement Measurements/Treatment - Nurse 1 - General Ulcer Assessment Start: 10/11/22 10:47 Freq: Status: Active Protocol: NELL Activity Type Activity Date Activity User E-sign Co-sign Detail Recorded Client Recorded Date Recorded By Document 10/11/22 10:54 DL [id number] 10/11/22 10:58 DL Document 10/18/22 09:13 DL [id number] 10/18/22 09:23 DL Document 10/25/22 09:23 RB [id number] 10/25/22 09:25 RB Document 11/01/22 09:15 DL Desktop 11/01/22 09:23 DL 10/11/22 10/18/22 10/25/22 10:54 09:13 09:23 - Today's Visit Information Type of service Follow-up Visit Follow-up Visit Follow-up Visit (Physician/MULTIPLE PUNCH PRESS OPERATOR (Physician/MULTIPLE PUNCH PRESS OPERATOR (Physician/MULTIPLE PUNCH PRESS OPERATOR ) ) ) Arrival Mode Ambulatory Ambulatory, Ambulatory, Walker Walker Transfer Assistance None None None Patient Identification Verified (Name & Yes Yes Yes ) Patient Requires Transmission-Based No No No Precautions Finger Stick Blood Sugar(mg/dl) (if 113 170 indicated): Blood Sugar Stated by Stated by Patient Patient Height and Weight Body Mass Index (BMI) 46.5 46.5 46.5 BMI Classification Obese Obese Obese Vital Signs Temperature (97.8 F-99.1 F) 97.3 F L 97.7 F L 97 F L Temperature Source Temporal Temporal Temporal Pulse Rate (60-100) 112 H 96 100 Pulse Location Monitor Monitor Monitor Respiratory Rate (12-18) 22 H 20 H 18 Respiratory rate source Observation Observation Observation Blood Pressure (90/60-120/80) 147/90 H 166/84 H 162/85 H Blood Pressure Mean (mm Hg) 109 111 110 Source Monitor Monitor Monitor Position Semi-Fowlers Blood Pressure Location Left Arm History Since Last Visit- (Skip if this is Patient's initial visit) Have you changed medications since your No No No last visit? Any new allergies or adverse reactions No No No Had a fall/change in ADL's that may No No No increase risk of falls Signs or symptoms of abuse and/or No No No neglect since last visit Have you been in the hospital since your No No No last visit? Has dressing in place as prescribed Yes Yes Yes Has compression in place as prescribed Yes Yes No Has offloadiing in place as prescribed Yes Yes Yes Experienced any changes in pain level or No No No management Right Footwear Surgical Shoe Surgical Shoe with pressure with pressure relief insole relief insole Pain Scale: 0-10 Numeric Is Patient Pain Free? Yes Yes Yes 11/01/22 09:15 WC - Today's Visit Information Type of service Follow-up Visit (Physician/MULTIPLE PUNCH PRESS OPERATOR ) Arrival Mode Ambulatory Transfer Assistance None Patient Identification Verified (Name & Yes ) Patient Requires Transmission-Based No Precautions Finger Stick Blood Sugar(mg/dl) (if 155 indicated): Blood Sugar Stated by Patient Height and Weight Body Mass Index (BMI) 46.5 BMI Classification Obese Vital Signs Temperature (97.8 F-99.1 F) 997.4 F H Temperature Source Temporal Pulse Rate (60-100) 86 Pulse Location Monitor Respiratory Rate (12-18) 20 H Respiratory rate source Observation Blood Pressure (90/60-120/80) 169/92 H Blood Pressure Mean (mm Hg) 117 Source Monitor Position Blood Pressure Location History Since Last Visit- (Skip if this is Patient's initial visit) Have you changed medications since your No last visit? Any new allergies or adverse reactions No Had a fall/change in ADL's that may No increase risk of falls Signs or symptoms of abuse and/or No neglect since last visit Have you been in the hospital since your No last visit? Has dressing in place as prescribed Yes Has compression in place as prescribed Yes Has offloadiing in place as prescribed Yes Experienced any changes in pain level or No management Right Footwear Surgical Shoe with pressure relief insole Pain Scale: 0-10 Numeric Is Patient Pain Free? Yes - Nurse 1 - General Ulcer Measurement Start: 10/11/22 10:47 Freq: Status: Active Protocol: Activity Type Activity Date Activity User E-sign Co-sign Detail Recorded Client Recorded Date Recorded By Document 10/11/22 10:54 DL [id number] 10/11/22 10:58 DL Document 10/18/22 09:13 DL [id number] 10/18/22 09:23 DL Document 10/25/22 09:23 RB [id number] 10/25/22 09:25 RB Document 11/01/22 09:15 DL Desktop 11/01/22 09:23 DL 10/11/22 10/18/22 10/25/22 10:54 09:13 09:23 Wound Center Nurse 1 #1- R HEEL -Combined with other wound No -Current Size (cm) - Length 3.1 2 3 -Current Size (cm) - Width 1.7 2.5 3.2 -Current Size (cm) - Depth 0.7 1 1.2 -Total Square Cm 5.27 5.0 9.6 -Photo Taken Yes Yes -Tunneling No No -Undermining/Tunneling No No -Circular Undermining No No -Exudate Amt Medium Large Large -Exudate Type Serosanguineous Serosanguineous Serosanguineous -Wound Margin Distinct, Thickened & Thickened & Outline Rolled Under Rolled Under Attached -Granulation Amt Medium (34-66%) Medium (34-66%) Medium (34-66%) -Granulation Quality Red [facility] -Slough/Fibrin Yes Yes -Necrosis Amt Medium (34-66%) Medium (34-66%) Medium (34-66%) -Necrotic Tissue Type Adherent Slough Adherent Slough Adherent Slough -Structure Exposed N/A N/A N/A -Texture (Lianna-wound Skin Appearance) Scarring Assessed Assessed, Scarring -Moisture (Lianna-wound Skin Appearance) Maceration Maceration Assessed -Color (Lianna-wound Skin Appearance) No Abnormality Assessed Assessed -Temperature (Lianna-wound Skin No Abnormality No Abnormality No Abnormality Appearance) (Pt Warm) (Pt Warm) (Pt Warm) -Tenderness on Palpation (Lianna-wound No No Skin Appearance) -Ulcer Cleansing Not Cleansed Wound Cleanser Wound Cleanser -Foul Odor after Cleansing No No No -Anesthetic Used 5% Lidocaine 5% Lidocaine 5% Lidocaine Gel Gel Gel 11/01/22 09:15 Wound Center Nurse 1 #1- R HEEL -Combined with other wound -Current Size (cm) - Length 2.3 -Current Size (cm) - Width 1.8 -Current Size (cm) - Depth 0.8 -Total Square Cm 4.14 -Photo Taken Yes -Tunneling -Undermining/Tunneling -Circular Undermining -Exudate Amt Medium -Exudate Type -Wound Margin Distinct, Outline Attached -Granulation Amt Medium (34-66%) -Granulation Quality Red -Slough/Fibrin -Necrosis Amt Medium (34-66%) -Necrotic Tissue Type Adherent Slough -Structure Exposed N/A -Texture (Lianna-wound Skin Appearance) Scarring -Moisture (Lianna-wound Skin Appearance) No Abnormality -Color (Lianna-wound Skin Appearance) No Abnormality -Temperature (Lianna-wound Skin No Abnormality Appearance) (Pt Warm) -Tenderness on Palpation (Lianna-wound No Skin Appearance) -Ulcer Cleansing Soap and Water -Foul Odor after Cleansing No -Anesthetic Used 5% Lidocaine Gel WC - Nurse 2 - General Ulcer CM Notes Start: 10/11/22 10:47 Freq: Status: Active Protocol: Activity Type Activity Date Activity User E-sign Co-sign Detail Recorded Client Recorded Date Recorded By Document 10/11/22 11:16 [id number] 10/11/22 11:18 Edit Result 10/11/22 11:16 (1) [id number] 10/11/22 11:20 Document 10/18/22 09:49 [id number] 10/18/22 09:51 Document 10/25/22 09:43 [id number] 10/25/22 09:52 Document 11/01/22 09:56 [id number] 11/01/22 10:03 JF Edit Result 11/01/22 09:56 (2) [id number] 11/01/22 10:06 JF (1) #1- R HEEL - Bleeding Controlled with Pressure => Pressure,Silver => Nitrate (2) #1- R HEEL - Type of Offloading Surgical Shoe => Total Contact Cast => (TCC) - Right ($) 10/11/22 10/18/22 10/25/22 11:16 09:49 09:43 Wound Center Nurse 2 #1- R HEEL -Time 11:16 09:49 09:43 -Correct Patient Yes Yes Yes -Correct Side, Site, Position Yes Yes Yes -Correct Procedure Yes Yes Yes -Procedure Performed Yes Yes Yes -Type of Procedure Debridement Debridement Debridement -Clinical Debridement Subcutaneous Subcutaneous Subcutaneous -Tissue Removed Subcutaneous Subcutaneous Subcutaneous -Post Debridement (cm) - Length 2.5 3.0 3.0 -Post Debridement (cm) - Width 3.3 3.4 3.5 -Post Debridement (cm) - Depth 1.2 0.9 0.8 -Total Square (Post) (cm) 8.25 10.20 10.50 -Area of Debridement (cm) - Length 2.5 3.0 3.0 -Area of Debridement (cm) - Width 3.3 3.4 3.5 -Total Square (Area) (cm) 8.25 10.20 10.50 -Tunneling No No No -Undermining/Tunneling No No No -Circular Undermining No No No -Wound/Ulcer Outcome Not Healed Not Healed Not Healed -Ulcer Cleansing Rinsed/ Rinsed/ Rinsed/ Irrigated with Irrigated with Irrigated with Saline Saline Saline -Foul Odor after Cleansing No No No -Bioengineered Tissue Yes Yes Yes -Type of Bioengineered Tissue Epicord Epicord Epicord -Expiration Date 07/13/27 07/13/27 06/13/27 -Product Lot Number [id number] -Percent Used 100 100 100 -Lot number of Saline Used [id number] -Bleeding Controlled with Pressure,Silver Pressure Pressure Nitrate -Treatment Response Procedure Procedure Procedure Tolerated Well Tolerated Well Tolerated Well -Offloading Yes Yes Yes -Type of Offloading Surgical Shoe Surgical Shoe Surgical Shoe -Debridement - Subq, 1st 20sq cm No No No -Apply Skin Sub - 1st 25 sq cm - Feet 1 1 1 -Epicord (per sq cm) 6 6 6 Pain Scale: 0-10 Numeric Is Patient Pain Free? Yes Yes Yes 11/01/22 09:56 Wound Center Nurse 2 #1- R HEEL -Time 09:56 -Correct Patient Yes -Correct Side, Site, Position Yes -Correct Procedure Yes -Procedure Performed Yes -Type of Procedure Debridement -Clinical Debridement Subcutaneous -Tissue Removed Subcutaneous -Post Debridement (cm) - Length 2.8 -Post Debridement (cm) - Width 3.5 -Post Debridement (cm) - Depth 0.8 -Total Square (Post) (cm) 9.80 -Area of Debridement (cm) - Length 2.8 -Area of Debridement (cm) - Width 3.5 -Total Square (Area) (cm) 9.80 -Tunneling No -Undermining/Tunneling No -Circular Undermining No -Wound/Ulcer Outcome Not Healed -Ulcer Cleansing Rinsed/ Irrigated with Saline -Foul Odor after Cleansing No -Bioengineered Tissue No -Type of Bioengineered Tissue -Expiration Date -Product Lot Number -Percent Used -Lot number of Saline Used -Bleeding Controlled with Pressure -Treatment Response Procedure Tolerated Well -Offloading Yes -Type of Offloading Total Contact Cast (TCC) - Right ($) -Debridement - Subq, 1st 20sq cm Yes -Apply Skin Sub - 1st 25 sq cm - Feet -Epicord (per sq cm) Pain Scale: 0-10 Numeric Is Patient Pain Free? Yes WC - Nurse 3 - General Ulcer D/C NN Start: 10/11/22 10:47 Freq: Status: Active Protocol: Activity Type Activity Date Activity User E-sign Co-sign Detail Recorded Client Recorded Date Recorded By Document 10/11/22 11:43 DL [id number] 10/11/22 11:45 DL Document 10/18/22 10:17 DL [id number] 10/18/22 10:22 DL Edit Result 10/18/22 10:17 DL (1) [id number] 10/19/22 07:25 PL Document 10/25/22 09:55 DL [id number] 10/25/22 09:58 DL Document 11/01/22 10:40 RB [id number] 11/01/22 10:42 RB (1) #1- R HEEL - NPWT Application Charge NPWT </= 50 sq cm => NPWT </= 50 sq cm ($) => (disp) ($) 10/11/22 10/18/22 10/25/22 11:43 10:17 09:55 Wound Care Center Nurse 3 #1- R HEEL -Ulcer Cleansing Rinsed/ Irrigated with Saline -Foul Odor after Cleansing No No No -Negative Pressure Wound Therapy Continue Continue -Setting (mmHg) 125 125 -Negative Pressure is Continuous Continuous -Primary Dressing Applied Aquacel Extra -Other Dressing Epicord Epicord Epicord -Primary Dressing Covered/Secured with Dry Gauze & Roll Gauze, Secured with Tape -Other Covering SNAP ABD Nurse Hat -NPWT Application Charge NPWT </= 50 sq NPWT </= 50 sq cm (disp) ($) cm (disp) ($) -Aquacel Extra 1 -Silvercel Right -Compression Wrap Miguelangel Wrap Miguelangel Wrap Miguelangel Wrap -Other Treatment Response Procedure Procedure Procedure Tolerated Well Tolerated Well Tolerated Well Pain Scale: 0-10 Numeric Is Patient Pain Free? Yes Yes Yes WC - Visit Discharge Discharge Condition Stable Stable Stable Ambulatory Status Ambulatory, Ambulatory Walker Transportation Private Auto Private Auto Clinical Summary of Care Provided Facility Type [facility] Orders Sent Yes Yes 11/01/22 10:40 Wound Care Center Nurse 3 #1- R HEEL -Ulcer Cleansing Rinsed/ Irrigated with Saline -Foul Odor after Cleansing -Negative Pressure Wound Therapy -Setting (mmHg) -Negative Pressure is -Primary Dressing Applied Silvercel -Other Dressing -Primary Dressing Covered/Secured with -Other Covering -NPWT Application Charge -Aquacel Extra -Silvercel 1 Right -Compression Wrap -Other TCC 4inch Treatment Response Procedure Tolerated Well Pain Scale: 0-10 Numeric Is Patient Pain Free? Yes WC - Visit Discharge Discharge Condition Stable Ambulatory Status Ambulatory, Walker Transportation Private Auto Clinical Summary of Care Provided Yes Facility Type Orders Sent Assessment/Plan Assessment/Plan (1) Pressure ulcer of right heel, stage 3: CODE(S): L89.613 - Pressure ulcer of right heel, stage 3 (2) Non-healing ulcer of right foot with fat layer exposed: CODE(S): L97.512 - Non-pressure chronic ulcer of other part of right foot with fat layer exposed (3) VRE (vancomycin-resistant Enterococci) infection: CODE(S): A49.1 - Streptococcal infection, unspecified site; Z16.21 - Resistance to vancomycin (4) History of total knee arthroplasty: CODE(S): Z96.659 - Presence of unspecified artificial knee joint (5) Diabetic polyneuropathy: CODE(S): E11.42 - Type 2 diabetes mellitus with diabetic polyneuropathy (6) Diabetes mellitus: CODE(S): E11.9 - Type 2 diabetes mellitus without complications (7) Lymphedema: CODE(S): I89.0 - Lymphedema, not elsewhere classified (8) Lower extremity edema: CODE(S): R60.0 - Localized edema PLAN: Plan Patient evaluated at the wound healing center. He was approved for Epicord/Epifix to this ulcer. SNAP vac stopped due causing maceration around the edges of the graft. Wound care - Epicord 3 applications placed. Will take a holiday this week and place Silvercel and a TCC for off loading. Will re-evaluate in a week with a courtesy visit from another provider. Had a long discussion about off loading and will try the TCC to see if this will help with his ulcer. Offloading: He is amendable to have a total contact cast applied today and verbal consent was obtained.? This was applied according to standard protocol in a neutral position a well-padded manner.? He tolerated this well.? To keep clean, dry, and intact until follow-up visit on a biweekly basis.? I do have concerns about the TCC due to his gait but he walks with a walker, so this will hopefully help keep him steady. I know that a knee roller would not be possible due to his knee pain and his recent hip replacement. A wound culture was obtained 08/30/22 which was positive for VRE, Kocuria kristinae, and Corynebacterium striatum completed Linezolid. For his tongue pain/thrush he is using Nystatin Amador TID. He has noticed an improvement since starting the nystatin. Encouraged increase protein intake with low carbs to help with blood sugars and wound healing. He has home health. He is on Doxycycline as suppressive treatment since he had his left knee replaced, this is prescribed by Orthopaedics. Follow up for a nurses visit Sunday and one week as a courtsey visit from another provider due to me being out of town.
[2022-11-09 11:18] VITALS: BP 154/92; PULSE 101; RESP 18; TEMP 36.2; BMI 46.5
--- NOTE | 2022-11-09 13:18 | PCM.WC.PN ---
History of Present Illness Date of Service: 11/09/22 Chief Complaint: Right heel ulcer History of Wound: 66 year old male presents to the wound center for evaluation of his right heal ulcer. It started as a a pressure ulcer in February when he he was in TCU and it healed. It then became a blister right before his Left TKR surgery. He had his left knee replaced 07/14/22 at [facility]. 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 He also has a history of diabetes, HTN, lymphedema, hypercholesterolemia and PE that he is on Xerelto. He currently has home health. Wound culture obtained on 08/30/22 which are positive for VRE, Kocuria kristinae and Corynebacterium striatum. He will completed the Linezolid. Foot xray 09/27/22 - Osteopenia with diffuse osteoarthritic changes. Diffuse soft tissue swelling with ossification of the distal Achilles tendon. No acute abnormality or evidence of erosive changes. Wound care - He has been approved for Epicord and Epifix, he has had 3 application thus far of Epicord. He denies any fever, chills, nausea and vomiting. Progress of Wound: Right heel ulcer shows no improvement this week. There is large amount of callus surrounding the ulcer. The base of the ulcer continues to have depth, it is a nice beefy pink color. Concerned that he is not off loading as much as he should be. Subjective Subjective Patient is a 66-year-old male who presents to the wound care center today for a follow-up of the right posterior lateral heel ulceration. He is following with Cathy Kim NP for debridement of the wound followed by applications of TTC casting. He denies any constitutional symptoms today. He denies any further complaints today. Objective Data Objective Data Vital Signs: Vital Signs Temp Pulse Resp BP 97.1 F L 101 H 18 154/92 H 11/09/22 11:18 11/09/22 11:18 11/09/22 11:18 11/09/22 11:18 Weight: 155.582 kg Body Mass Index (BMI) 46.5 Physical Exam Const alert, oriented x3 and no apparent distress General Appearance: cooperative HEENT normocephalic Eyes General Eye: normal appearance of both eyes Neck General: normal visual inspection Lymph Lymphatic: no lymphadenopathy noted and no lymphedema noted Resp normal respiratory effort Cardio regular rate and regular rhythm Extremity normal capillary refill, no calf tenderness and no pedal edema Extremity Narrative: DP and PT pulses palpable. Adequate capillary fill time to the digits of the right foot. Skin no rashes or lesions noted, skin turgor normal and no jaundice Wound Narrative: There is an ulceration to the posterior lateral heel with healthy granular tissue noted to the wound bed. No erythema, no malodor, no palpable fluctuance/bogginess, no purulent drainage, no visible abscess formation, no lymphangitic streaking. Surrounding skin is healthy and atrophic. Neuro moves all extremities Debridement Note Debridement Note Wound debrided: Right posterior lateral heel Laterality: Right Wound Grade/Stage: Gomez stage III Type of Debridement: Excisional debridement Anesthesia Used: 5% Lidocaine Gel Depth: Down to and including healthy tissue and in the subcutaneous layer Percentage of wound debrided: 100 Instrument Used: 5mm curette Tissue Removed: Fibrous, devitalized subcutaneous, biofilm, slough Severity: Fat Layer Exposed Amount of bleeding with debridement: Mild Bleeding Controlled with: Compression and gauze Patient tolerated procedure: Patient tolerated procedure well Post-Debridement Measurements and Additional Note: Post-Debridement Measurements/Treatment - Nurse 1 - General Ulcer Assessment Start: 10/11/22 10:47 Freq: Status: Active Protocol: NELL Activity Type Activity Date Activity User E-sign Co-sign Detail Recorded Client Recorded Date Recorded By Document 10/11/22 10:54 DL [id number] 10/11/22 10:58 DL Document 10/18/22 09:13 DL [id number] 10/18/22 09:23 DL Document 10/25/22 09:23 RB [id number] 10/25/22 09:25 RB Document 11/01/22 09:15 DL Desktop 11/01/22 09:23 DL Document 11/09/22 11:18 JF [id number] 11/09/22 11:20 JF 10/11/22 10/18/22 10/25/22 10:54 09:13 09:23 - Today's Visit Information Type of service Follow-up Visit Follow-up Visit Follow-up Visit (Physician/RADIATION PROTECTION SPECIALIST (Physician/RADIATION PROTECTION SPECIALIST (Physician/RADIATION PROTECTION SPECIALIST ) ) ) Arrival Mode Ambulatory Ambulatory, Ambulatory, Walker Walker Transfer Assistance None None None Patient Identification Verified (Name & Yes Yes Yes ) Patient Requires Transmission-Based No No No Precautions Finger Stick Blood Sugar(mg/dl) (if 113 170 indicated): Blood Sugar Stated by Stated by Patient Patient Height and Weight Body Mass Index (BMI) 46.5 46.5 46.5 BMI Classification Obese Obese Obese Vital Signs Temperature (97.8 F-99.1 F) 97.3 F L 97.7 F L 97 F L Temperature Source Temporal Temporal Temporal Pulse Rate (60-100) 112 H 96 100 Pulse Location Monitor Monitor Monitor Respiratory Rate (12-18) 22 H 20 H 18 Respiratory rate source Observation Observation Observation Blood Pressure (90/60-120/80) 147/90 H 166/84 H 162/85 H Blood Pressure Mean (mm Hg) 109 111 110 Source Monitor Monitor Monitor Position Semi-Fowlers Blood Pressure Location Left Arm History Since Last Visit- (Skip if this is Patient's initial visit) Have you changed medications since your No No No last visit? Any new allergies or adverse reactions No No No Had a fall/change in ADL's that may No No No increase risk of falls Signs or symptoms of abuse and/or No No No neglect since last visit Have you been in the hospital since your No No No last visit? Has dressing in place as prescribed Yes Yes Yes Has compression in place as prescribed Yes Yes No Has offloadiing in place as prescribed Yes Yes Yes Experienced any changes in pain level or No No No management Left Footwear Right Footwear Surgical Shoe Surgical Shoe with pressure with pressure relief insole relief insole Pain Scale: 0-10 Numeric Is Patient Pain Free? Yes Yes Yes 11/01/22 11/09/22 09:15 11:18 - Today's Visit Information Type of service Follow-up Visit Follow-up Visit (Physician/RADIATION PROTECTION SPECIALIST (Physician/RADIATION PROTECTION SPECIALIST ) ) Arrival Mode Ambulatory Ambulatory, Walker Transfer Assistance None Patient Identification Verified (Name & Yes ) Patient Requires Transmission-Based No No Precautions Finger Stick Blood Sugar(mg/dl) (if 155 148 indicated): Blood Sugar Stated by Stated by Patient Patient Height and Weight Body Mass Index (BMI) 46.5 46.5 BMI Classification Obese Obese Vital Signs Temperature (97.8 F-99.1 F) 997.4 F H 97.1 F L Temperature Source Temporal Temporal Pulse Rate (60-100) 86 101 H Pulse Location Monitor Monitor Respiratory Rate (12-18) 20 H 18 Respiratory rate source Observation Observation Blood Pressure (90/60-120/80) 169/92 H 154/92 H Blood Pressure Mean (mm Hg) 117 112 Source Monitor Monitor Position Semi-Fowlers Blood Pressure Location Left Forearm History Since Last Visit- (Skip if this is Patient's initial visit) Have you changed medications since your No No last visit? Any new allergies or adverse reactions No No Had a fall/change in ADL's that may No No increase risk of falls Signs or symptoms of abuse and/or No No neglect since last visit Have you been in the hospital since your No No last visit? Has dressing in place as prescribed Yes Yes Has compression in place as prescribed Yes Yes Has offloadiing in place as prescribed Yes Yes Experienced any changes in pain level or No No management Left Footwear Regular Shoe Right Footwear Surgical Shoe Total Contact with pressure Cast relief insole Pain Scale: 0-10 Numeric Is Patient Pain Free? Yes Yes WC - Nurse 1 - General Ulcer Measurement Start: 10/11/22 10:47 Freq: Status: Active Protocol: Activity Type Activity Date Activity User E-sign Co-sign Detail Recorded Client Recorded Date Recorded By Document 10/11/22 10:54 DL [id number] 10/11/22 10:58 DL Document 10/18/22 09:13 DL [id number] 10/18/22 09:23 DL Document 10/25/22 09:23 RB [id number] 10/25/22 09:25 RB Document 11/01/22 09:15 DL Desktop 11/01/22 09:23 DL Document 11/09/22 11:18 JF [id number] 11/09/22 11:20 JF 10/11/22 10/18/22 10/25/22 10:54 09:13 09:23 Wound Center Nurse 1 #1- R HEEL -Combined with other wound No -Current Size (cm) - Length 3.1 2 3 -Current Size (cm) - Width 1.7 2.5 3.2 -Current Size (cm) - Depth 0.7 1 1.2 -Total Square Cm 5.27 5.0 9.6 -Photo Taken Yes Yes -Epithelialization -Tunneling No No -Undermining/Tunneling No No -Circular Undermining No No -Exudate Amt Medium Large Large -Exudate Type Serosanguineous Serosanguineous Serosanguineous -Wound Margin Distinct, Thickened & Thickened & Outline Rolled Under Rolled Under Attached -Granulation Amt Medium (34-66%) Medium (34-66%) Medium (34-66%) -Granulation Quality Red [place] -Slough/Fibrin Yes Yes -Necrosis Amt Medium (34-66%) Medium (34-66%) Medium (34-66%) -Necrotic Tissue Type Adherent Slough Adherent Slough Adherent Slough -Structure Exposed N/A N/A N/A -Texture (Lianna-wound Skin Appearance) Scarring Assessed Assessed, Scarring -Moisture (Lianna-wound Skin Appearance) Maceration Maceration Assessed -Color (Lianna-wound Skin Appearance) No Abnormality Assessed Assessed -Temperature (Lianna-wound Skin No Abnormality No Abnormality No Abnormality Appearance) (Pt Warm) (Pt Warm) (Pt Warm) -Tenderness on Palpation (Lianna-wound No No Skin Appearance) -Ulcer Cleansing Not Cleansed Wound Cleanser Wound Cleanser -Foul Odor after Cleansing No No No -Anesthetic Used 5% Lidocaine 5% Lidocaine 5% Lidocaine Gel Gel Gel Lower Limb Edema Present Right Calf (cm) Right Ankle (cm) 11/01/22 11/09/22 09:15 11:18 Wound Center Nurse 1 #1- R HEEL -Combined with other wound No -Current Size (cm) - Length 2.3 2.5 -Current Size (cm) - Width 1.8 2.5 -Current Size (cm) - Depth 0.8 1.0 -Total Square Cm 4.14 6.25 -Photo Taken Yes No -Epithelialization Small 1-33% -Tunneling No -Undermining/Tunneling No -Circular Undermining No -Exudate Amt Medium Large -Exudate Type Serosanguineous -Wound Margin Distinct, Flat & Intact Outline Attached -Granulation Amt Medium (34-66%) Large (67-100%) -Granulation Quality Red Red -Slough/Fibrin Yes -Necrosis Amt Medium (34-66%) Small (1-33%) -Necrotic Tissue Type Adherent Slough Adherent Slough -Structure Exposed N/A N/A -Texture (Lianna-wound Skin Appearance) Scarring Assessed -Moisture (Lianna-wound Skin Appearance) No Abnormality Assessed,Dry/ Scaly -Color (Lianna-wound Skin Appearance) No Abnormality Assessed -Temperature (Lianna-wound Skin No Abnormality No Abnormality Appearance) (Pt Warm) (Pt Warm) -Tenderness on Palpation (Lianna-wound No No Skin Appearance) -Ulcer Cleansing Soap and Water Wound Cleanser -Foul Odor after Cleansing No No -Anesthetic Used 5% Lidocaine 5% Lidocaine Gel Gel Lower Limb Edema Present Yes Right Calf (cm) 48.5 Right Ankle (cm) 29.2 WC - Nurse 2 - General Ulcer CM Notes Start: 10/11/22 10:47 Freq: Status: Active Protocol: Activity Type Activity Date Activity User E-sign Co-sign Detail Recorded Client Recorded Date Recorded By Document 10/11/22 11:16 [id number] 10/11/22 11:18 Edit Result 10/11/22 11:16 JF (1) [id number] 10/11/22 11:20 Document 10/18/22 09:49 [id number] 10/18/22 09:51 Document 10/25/22 09:43 [id number] 10/25/22 09:52 Document 11/01/22 09:56 [id number] 11/01/22 10:03 JF Edit Result 11/01/22 09:56 (2) [id number] 11/01/22 10:06 (1) #1- R HEEL - Bleeding Controlled with Pressure => Pressure,Silver => Nitrate (2) #1- R HEEL - Type of Offloading Surgical Shoe => Total Contact Cast => (TCC) - Right ($) 10/11/22 10/18/22 10/25/22 11:16 09:49 09:43 Wound Center Nurse 2 #1- R HEEL -Time 11:16 09:49 09:43 -Correct Patient Yes Yes Yes -Correct Side, Site, Position Yes Yes Yes -Correct Procedure Yes Yes Yes -Procedure Performed Yes Yes Yes -Type of Procedure Debridement Debridement Debridement -Clinical Debridement Subcutaneous Subcutaneous Subcutaneous -Tissue Removed Subcutaneous Subcutaneous Subcutaneous -Post Debridement (cm) - Length 2.5 3.0 3.0 -Post Debridement (cm) - Width 3.3 3.4 3.5 -Post Debridement (cm) - Depth 1.2 0.9 0.8 -Total Square (Post) (cm) 8.25 10.20 10.50 -Area of Debridement (cm) - Length 2.5 3.0 3.0 -Area of Debridement (cm) - Width 3.3 3.4 3.5 -Total Square (Area) (cm) 8.25 10.20 10.50 -Tunneling No No No -Undermining/Tunneling No No No -Circular Undermining No No No -Wound/Ulcer Outcome Not Healed Not Healed Not Healed -Ulcer Cleansing Rinsed/ Rinsed/ Rinsed/ Irrigated with Irrigated with Irrigated with Saline Saline Saline -Foul Odor after Cleansing No No No -Bioengineered Tissue Yes Yes Yes -Type of Bioengineered Tissue Epicord Epicord Epicord -Expiration Date 07/13/27 07/13/27 06/13/27 -Product Lot Number [id number] -Percent Used 100 100 100 -Lot number of Saline Used [id number] -Bleeding Controlled with Pressure,Silver Pressure Pressure Nitrate -Treatment Response Procedure Procedure Procedure Tolerated Well Tolerated Well Tolerated Well -Offloading Yes Yes Yes -Type of Offloading Surgical Shoe Surgical Shoe Surgical Shoe -Debridement - Subq, 1st 20sq cm No No No -Apply Skin Sub - 1st 25 sq cm - Feet 1 1 1 -Epicord (per sq cm) 6 6 6 Pain Scale: 0-10 Numeric Is Patient Pain Free? Yes Yes Yes 11/01/22 09:56 Wound Center Nurse 2 #1- R HEEL -Time 09:56 -Correct Patient Yes -Correct Side, Site, Position Yes -Correct Procedure Yes -Procedure Performed Yes -Type of Procedure Debridement -Clinical Debridement Subcutaneous -Tissue Removed Subcutaneous -Post Debridement (cm) - Length 2.8 -Post Debridement (cm) - Width 3.5 -Post Debridement (cm) - Depth 0.8 -Total Square (Post) (cm) 9.80 -Area of Debridement (cm) - Length 2.8 -Area of Debridement (cm) - Width 3.5 -Total Square (Area) (cm) 9.80 -Tunneling No -Undermining/Tunneling No -Circular Undermining No -Wound/Ulcer Outcome Not Healed -Ulcer Cleansing Rinsed/ Irrigated with Saline -Foul Odor after Cleansing No -Bioengineered Tissue No -Type of Bioengineered Tissue -Expiration Date -Product Lot Number -Percent Used -Lot number of Saline Used -Bleeding Controlled with Pressure -Treatment Response Procedure Tolerated Well -Offloading Yes -Type of Offloading Total Contact Cast (TCC) - Right ($) -Debridement - Subq, 1st 20sq cm Yes -Apply Skin Sub - 1st 25 sq cm - Feet -Epicord (per sq cm) Pain Scale: 0-10 Numeric Is Patient Pain Free? Yes WC - Nurse 3 - General Ulcer D/C NN Start: 10/11/22 10:47 Freq: Status: Active Protocol: Activity Type Activity Date Activity User E-sign Co-sign Detail Recorded Client Recorded Date Recorded By Document 10/11/22 11:43 DL [id number] 10/11/22 11:45 DL Document 10/18/22 10:17 DL [id number] 10/18/22 10:22 DL Edit Result 10/18/22 10:17 DL (1) [id number] 10/19/22 07:25 PL Document 10/25/22 09:55 DL [id number] 10/25/22 09:58 DL Document 11/01/22 10:40 RB [id number] 11/01/22 10:42 RB Document 11/09/22 12:48 AK [id number] 11/09/22 12:49 AK (1) #1- R HEEL - NPWT Application Charge NPWT </= 50 sq cm => NPWT </= 50 sq cm ($) => (disp) ($) 10/11/22 10/18/22 10/25/22 11:43 10:17 09:55 Wound Care Center Nurse 3 #1- R HEEL -Ulcer Cleansing Rinsed/ Irrigated with Saline -Foul Odor after Cleansing No No No -Negative Pressure Wound Therapy Continue Continue -Setting (mmHg) 125 125 -Negative Pressure is Continuous Continuous -Primary Dressing Applied Aquacel Extra -Other Dressing Epicord Epicord Epicord -Primary Dressing Covered/Secured with Dry Gauze & Roll Gauze, Secured with Tape -Other Covering SNAP ABD Nurse Hat -NPWT Application Charge NPWT </= 50 sq NPWT </= 50 sq cm (disp) ($) cm (disp) ($) -Aquacel Extra 1 -Silvercel Right -Lotion applied to leg before compression wrap -Compression Wrap Miguelangel Wrap Miguelangel Wrap Miguelangel Wrap -Other Treatment Response Procedure Procedure Procedure Tolerated Well Tolerated Well Tolerated Well Pain Scale: 0-10 Numeric Is Patient Pain Free? Yes Yes Yes WC - Visit Discharge Discharge Condition Stable Stable Stable Ambulatory Status Ambulatory, Ambulatory Walker Transportation Private Auto Private Auto Medication Reconcilliation completed & provided to patient/care provider Clinical Summary of Care Provided Facility Type Customer Experience Specialist [facility] Facility Orders Sent Yes Yes 11/01/22 11/09/22 10:40 12:48 Wound Care Center Nurse 3 #1- R HEEL -Ulcer Cleansing Rinsed/ Rinsed/ Irrigated with Irrigated with Saline Saline -Foul Odor after Cleansing No -Negative Pressure Wound Therapy N/A -Setting (mmHg) -Negative Pressure is -Primary Dressing Applied Silvercel Silvercel -Other Dressing nurses hat -Primary Dressing Covered/Secured with Dry Gauze & Roll Gauze, Secured with Tape -Other Covering -NPWT Application Charge -Aquacel Extra -Silvercel 1 1 Right -Lotion applied to leg before No compression wrap -Compression Wrap -Other TCC 4inch size 4 TCC Treatment Response Procedure Tolerated Well Pain Scale: 0-10 Numeric Is Patient Pain Free? Yes Yes WC - Visit Discharge Discharge Condition Stable Stable Ambulatory Status Ambulatory, Ambulatory Walker Transportation Private Auto Private Auto Medication Reconcilliation completed & Yes provided to patient/care provider Clinical Summary of Care Provided Yes Yes Facility Type Orders Sent Assessment/Plan Assessment/Plan (1) Pressure ulcer of right heel, stage 3: CODE(S): L89.613 - Pressure ulcer of right heel, stage 3 (2) Debility: CODE(S): R53.81 - Other malaise (3) Lower extremity edema: CODE(S): R60.0 - Localized edema (4) Lymphedema: CODE(S): I89.0 - Lymphedema, not elsewhere classified (5) Hypertension: CODE(S): I10 - Essential (primary) hypertension (6) Diabetic polyneuropathy: CODE(S): E11.42 - Type 2 diabetes mellitus with diabetic polyneuropathy PLAN: Plan Patient was seen and evaluated He is a patient of Cathy Kim NP. He is seen today for debridement of his Gomez stage III ulcer to the right plantar lateral heel and new application of a total contact cast. Debridement of right plantar lateral heel ulceration was performed today as noted in the clinical panel above. Ulcerative site measures 2.6 cm x 2.3 cm x 0.9 cm. No signs of infection. Surrounding skin is healthy appearing and atrophic. Ulceration is improving with reduction in size versus previous visit. Following debridement Surgicel was packed into the wound. Following application of dry sterile dressing a total contact cast was applied to the right lower extremity. I recommend total contact cast application again to the right lower extremity. He is amendable to have a left lower extremity total contact cast applied and verbal consent was obtained. This was applied according to standard protocol in a rectus position that was also well padded according to standard protocol. He tolerated this well. He was advised to keep this clean, dry, and intact until follow-up next week. He was encouraged to only walk with a total contact cast while in the cast boot. He was also instructed to not get the cast wet and to shower using cast bag. He voices understanding of this. I discussed with him that he will not be able to visualize for signs and symptoms of infection while he is in a total contact cast. I did discuss the signs and symptoms of infection today. Informed him if he notices any redness moving up the leg, continued feeling of oozing, increasing odor, increasing pain, or if he experiences any fever greater than 101 degree, nausea, vomiting, or chills that he is to report straight to the ED for removal of the total contact cast for evaluation as these are signs of progressing infection. He voices understanding of this today. He will follow with Cathy Kim NP in 1 week in the wound care center for continued wound care. He may call the wound center sooner with any questions or concerns. Jr. Zeeshan HoganPJose. [facility] [phone]
== END 2022-11-10 23:59 | disposition home or self-care (01) ==
LOC: WC 10:45
PROVIDERS: PCP Internal Medicine; Visit Provider Nurse Practitioner Family
DX: L89.613 Pressure ulcer of right heel, stage 3 (principal); E11.42 Type 2 diabetes mellitus with diabetic polyneuropathy; I10 Essential (primary) hypertension; E78.00 Pure hypercholesterolemia, unspecified; Z96.652 Presence of left artificial knee joint; B37.0 Candidal stomatitis; I89.0 Lymphedema, not elsewhere classified; Z86.711 Personal history of pulmonary embolism; Z79.01 Long term (current) use of anticoagulants; R60.0 Localized edema
CPT/HCPCS: 11042; 15275; 29445; 97605; 97607; Q4187

== ENCOUNTER 2022-12-06 10:30 | Outpatient (RCR) | payer MEDICARE, BC, SELFPAY ==
[2022-11-11 01:07] VITALS: BP 154/92; PULSE 101; RESP 18; TEMP 36.2; BMI 46.5
[2022-11-15 09:11] VITALS: BP 137/77; PULSE 80; RESP 18; TEMP 36.1; BMI 46.5
--- NOTE | 2022-11-15 11:14 | PN.PCM_ITS ---
History of Present Illness Date of Service: 11/15/22 Chief Complaint: Right heel ulcer History of Wound: 66 year old male presents to the wound center for evaluation of his right heal ulcer. It started as a a pressure ulcer in February when he he was in TCU and it healed. It then became a blister right before his Left TKR surgery. He had his left knee replaced 07/14/22 at [facility]. 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 He also has a history of diabetes, HTN, lymphedema, hypercholesterolemia and PE that he is on Xerelto. He currently has home health. Wound culture obtained on 08/30/22 which are positive for VRE, Kocuria kristinae and Corynebacterium striatum. He will completed the Linezolid. Foot xray 09/27/22 - Osteopenia with diffuse osteoarthritic changes. Diffuse soft tissue swelling with ossification of the distal Achilles tendon. No acute abnormality or evidence of erosive changes. Wound care - He has been approved for Epicord and Epifix, he has had 3 application thus far of Epicord. He denies any fever, chills, nausea and vomiting. Progress of Wound: He has been tolerating the TCC. His ulcer shows improvement in the depth and the overall quality of the tissue, it pink, less fibrous and no callus needs to be removed this week from around the ulcer. With him being able to tolerate the off loading, it has really improved his ulcer. Will place Epicord #4 today. Objective Data Objective Data Vital Signs: Vital Signs Temp Pulse Resp BP O2 Del Method 97 F L 80 18 137/77 H Room Air 11/15/22 09:11 11/15/22 09:11 11/15/22 09:11 11/15/22 09:11 11/15/22 09:11 Oxygen Delivery Method Room Air Weight: 343 lb Body Mass Index (BMI) 46.5 Charges/Coding Procedures Integumentary 150xxx-152xx: 24807 Skin sub graft face/nk/hf/g Procedures Musculoskeletal 20xxx-29xxx: 19305 APPLY RIGID LEG CAST (total contact cast) Debridement Note Debridement Note Wound debrided: Right posterior lateral heel Laterality: Right Wound Grade/Stage: Gomez stage III Type of Debridement: Excisional debridement Anesthesia Used: 5% Lidocaine Gel Depth: Down to and including healthy tissue and in the subcutaneous layer Percentage of wound debrided: 100 Instrument Used: 5mm curette Tissue Removed: Fibrous, devitalized subcutaneous, biofilm, slough Severity: Fat Layer Exposed Amount of bleeding with debridement: Mild Bleeding Controlled with: Compression and gauze Patient tolerated procedure: Patient tolerated procedure well Post-Debridement Measurements and Additional Note: Post-Debridement Measurements/Treatment - Nurse 1 - General Ulcer Assessment Start: 11/15/22 09:11 Freq: Status: Active Protocol: NELL Activity Type Activity Date Activity User E-sign Co-sign Detail Recorded Client Recorded Date Recorded By Document 11/15/22 09:11 SD Parseop 11/15/22 09:28 SD 11/15/22 09:11 - Today's Visit Information Type of service Follow-up Visit (Physician/OPERATIONS CONSULTANT ) Arrival Mode Ambulatory Accompanied by Patient Identification Verified (Name & Yes ) Height and Weight Body Mass Index (BMI) 46.5 BMI Classification Obese Vital Signs Temperature (97.8 F-99.1 F) 97 F L Temperature Source Temporal Pulse Rate (60-100) 80 Pulse Location Monitor Respiratory Rate (12-18) 18 Respiratory rate source Observation Oxygen Delivery Method Room Air Blood Pressure (90/60-120/80) 137/77 H Blood Pressure Mean (mm Hg) 97 Source Monitor Position Sitting Blood Pressure Location Left Arm History Since Last Visit- (Skip if this is Patient's initial visit) Has dressing in place as prescribed Yes Has compression in place as prescribed Yes Has offloadiing in place as prescribed Yes Experienced any changes in pain level or Yes management Left Footwear Regular Shoe Right Footwear Total Contact Cast Pain Scale: 0-10 Numeric Is Patient Pain Free? Yes [facility] Nurse 1 - General Ulcer Measurement Start: 11/15/22 09:11 Freq: Status: Active Protocol: Activity Type Activity Date Activity User E-sign Co-sign Detail Recorded Client Recorded Date Recorded By Document 11/15/22 09:11 SD Parseop 11/15/22 09:28 SD 11/15/22 09:11 Wound Center Nurse 1 #1- R HEEL -Current Size (cm) - Length 3 -Current Size (cm) - Width 1.9 -Current Size (cm) - Depth 1.0 -Total Square Cm 5.7 -Granulation Amt Medium (34-66%) -Granulation Quality Pale,[place] -Necrosis Amt Small (1-33%) -Necrotic Tissue Type Adherent Slough -Texture (Lianna-wound Skin Appearance) Assessed -Moisture (Lianna-wound Skin Appearance) Assessed -Color (Lianna-wound Skin Appearance) Assessed -Temperature (Lianna-wound Skin No Abnormality Appearance) (Pt Warm) -Tenderness on Palpation (Lianna-wound No Skin Appearance) -Ulcer Cleansing Soap and Water -Foul Odor after Cleansing No -Anesthetic Used 4% Lidocaine Solution Lower Limb Edema Present Yes Right Calf (cm) 48.5 Right Ankle (cm) 29.2 WC - Nurse 2 - General Ulcer CM Notes Start: 11/15/22 09:11 Freq: Status: Active Protocol: Activity Type Activity Date Activity User E-sign Co-sign Detail Recorded Client Recorded Date Recorded By Document 11/15/22 09:42 [id number] 11/15/22 09:54 11/15/22 09:42 Wound Center Nurse 2 #1- R HEEL -Time 09:42 -Correct Patient Yes -Correct Side, Site, Position Yes -Correct Procedure Yes -Procedure Performed Yes -Type of Procedure Debridement -Clinical Debridement Subcutaneous -Tissue Removed Subcutaneous -Post Debridement (cm) - Length 2.5 -Post Debridement (cm) - Width 2.5 -Post Debridement (cm) - Depth 1.0 -Total Square (Post) (cm) 6.25 -Area of Debridement (cm) - Length 2.5 -Area of Debridement (cm) - Width 2.5 -Total Square (Area) (cm) 6.25 -Tunneling No -Undermining/Tunneling No -Circular Undermining No -Wound/Ulcer Outcome Not Healed -Ulcer Cleansing Rinsed/ Irrigated with Saline -Foul Odor after Cleansing No -Bioengineered Tissue Yes -Type of Bioengineered Tissue Epicord -Expiration Date 11/11/26 -Product Lot Number [id number] -Percent Used 100 -Lot number of Saline Used [id number] -Bleeding Controlled with Pressure -Treatment Response Procedure Tolerated Well -Offloading Yes -Type of Offloading Total Contact Cast (TCC) - Right ($) -Debridement - Subq, 1st 20sq cm No -Apply Skin Sub - 1st 25 sq cm - Feet 1 -Epicord (per sq cm) 6 Pain Scale: 0-10 Numeric Is Patient Pain Free? Yes Assessment/Plan Assessment/Plan (1) Pressure ulcer of right heel, stage 3: CODE(S): L89.613 - Pressure ulcer of right heel, stage 3 (2) Non-healing ulcer of right foot with fat layer exposed: CODE(S): L97.512 - Non-pressure chronic ulcer of other part of right foot with fat layer exposed (3) VRE (vancomycin-resistant Enterococci) infection: CODE(S): A49.1 - Streptococcal infection, unspecified site; Z16.21 - Resistance to vancomycin (4) History of total knee arthroplasty: CODE(S): Z96.659 - Presence of unspecified artificial knee joint (5) Diabetic polyneuropathy: CODE(S): E11.42 - Type 2 diabetes mellitus with diabetic polyneuropathy (6) Diabetes mellitus: CODE(S): E11.9 - Type 2 diabetes mellitus without complications (7) Lymphedema: CODE(S): I89.0 - Lymphedema, not elsewhere classified (8) Lower extremity edema: CODE(S): R60.0 - Localized edema PLAN: Plan Patient evaluated at the wound healing center. He was approved for Epicord/Epifix to this ulcer. He has shown improvement in his ulcer with off loading with TCC these past 2 weeks. Wound care - Epicord #4 placed today.? 100% of the product was used. Placed wound veil over top and secured with skin prep and steri strips. Will top with Aquacel to absorb moisture and top with gauze. Offloading: He is amendable to have a total contact cast applied today and verbal consent was obtained.? This was applied according to standard protocol in a neutral position a well-padded manner.? He tolerated this well.? To keep clean, dry, and intact until follow-up visit. He was encouraged to only walk with a total contact cast while in the cast boot.? He was also instructed to not get the cast wet and to shower using cast bag.? He voices understanding of this. I discussed with him that he will not be able to visualize for signs and symptoms of infection while he is in a total contact cast.? I did discuss the signs and symptoms of infection today.? Informed him if he notices any redness moving up the leg, continued feeling of oozing, increasing odor, increasing pain, or if he experiences any fever greater than 101 degree, nausea, vomiting, or chills that he is to report straight to the ED for removal of the total contact cast for evaluation as these are signs of progressing infection.? He voices understanding of this today. A wound culture was obtained 08/30/22 which was positive for VRE, Kocuria kristinae, and Corynebacterium striatum completed Linezolid. Encouraged increase protein intake with low carbs to help with blood sugars and wound healing. He is on Doxycycline as suppressive treatment since he had his left knee replaced, this is prescribed by Orthopaedics. Follow up one week. Call or come in sooner if develop any concerns.
[2022-11-22 09:03] VITALS: BP 147/74; PULSE 104; RESP 18; TEMP 36.3; BMI 46.5
--- NOTE | 2022-11-22 10:05 | PCM.WC.PN ---
History of Present Illness Date of Service: 11/22/22 Chief Complaint: Right heel ulcer History of Wound: 66 year old male presents to the wound center for evaluation of his right heal ulcer. It started as a a pressure ulcer in February when he he was in TCU and it healed. It then became a blister right before his Left TKR surgery. He had his left knee replaced 07/14/22 at [facility]. 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 He also has a history of diabetes, HTN, lymphedema, hypercholesterolemia and PE that he is on Xerelto. He currently has home health. Wound culture obtained on 08/30/22 which are positive for VRE, Kocuria kristinae and Corynebacterium striatum. He will completed the Linezolid. Foot xray 09/27/22 - Osteopenia with diffuse osteoarthritic changes. Diffuse soft tissue swelling with ossification of the distal Achilles tendon. No acute abnormality or evidence of erosive changes. Wound care - He has been approved for Epicord and Epifix, he has had 3 application thus far of Epicord. He denies any fever, chills, nausea and vomiting. Progress of Wound: He has been tolerating the TCC. His ulcer shows improvement in the depth and the overall quality of the tissue, it pink, less fibrous and no callus needs to be removed this week from around the ulcer. With him being able to tolerate the off loading, it has really improved his ulcer. Will place Epicord #5 today. Objective Data Objective Data Vital Signs: Vital Signs Temp Pulse Resp BP O2 Del Method 97.3 F L 104 H 18 147/74 H Room Air 11/22/22 09:03 11/22/22 09:03 11/22/22 09:03 11/22/22 09:03 11/15/22 09:11 Oxygen Delivery Method Room Air Weight: 343 lb Body Mass Index (BMI) 46.5 Charges/Coding Procedures Integumentary 150xxx-152xx: 87546 Skin sub graft face/nk/hf/g Procedures Musculoskeletal 20xxx-29xxx: 37276 APPLY RIGID LEG CAST (total contact cast) Debridement Note Debridement Note Wound debrided: Right posterior lateral heel Laterality: Right Wound Grade/Stage: Gomez stage III Type of Debridement: Excisional debridement Anesthesia Used: 5% Lidocaine Gel Depth: Down to and including healthy tissue and in the subcutaneous layer Percentage of wound debrided: 100 Instrument Used: 5mm curette Tissue Removed: Devitalized subcutaneous, biofilm, slough Severity: Fat Layer Exposed Amount of bleeding with debridement: Mild Bleeding Controlled with: Pressure and Compression and gauze Patient tolerated procedure: Patient tolerated procedure well Post-Debridement Measurements and Additional Note: Post-Debridement Measurements/Treatment LAM - Nurse 1 - General Ulcer Assessment Start: 11/15/22 09:11 Freq: Status: Active Protocol: NELL Activity Type Activity Date Activity User E-sign Co-sign Detail Recorded Client Recorded Date Recorded By Document 11/15/22 09:11 MT Desktop 11/15/22 09:28 MT Document 11/22/22 09:03 YASMINE [id number] 11/22/22 09:11 YASMINE 11/15/22 11/22/22 09:11 09:03 LAM - Today's Visit Information Type of service Follow-up Visit (Physician/BASKET HAND WEAVER ) Arrival Mode Ambulatory Accompanied by Patient Identification Verified (Name & Yes ) Height and Weight Body Mass Index (BMI) 46.5 46.5 BMI Classification Obese Obese Vital Signs Temperature (97.8 F-99.1 F) 97 F L 97.3 F L Temperature Source Temporal Temporal Pulse Rate (60-100) 80 104 H Pulse Location Monitor Respiratory Rate (12-18) 18 18 Respiratory rate source Observation Oxygen Delivery Method Room Air Blood Pressure (90/60-120/80) 137/77 H 147/74 H Blood Pressure Mean (mm Hg) 97 98 Source Monitor Position Sitting Blood Pressure Location Left Arm History Since Last Visit- (Skip if this is Patient's initial visit) Have you changed medications since your No last visit? Any new allergies or adverse reactions No Had a fall/change in ADL's that may No increase risk of falls Signs or symptoms of abuse and/or No neglect since last visit Have you been in the hospital since your No last visit? Has dressing in place as prescribed Yes Yes Has compression in place as prescribed Yes Yes Has offloadiing in place as prescribed Yes Yes Experienced any changes in pain level or Yes No management Left Footwear Regular Shoe Right Footwear Total Contact Cast Pain Scale: 0-10 Numeric Is Patient Pain Free? Yes No LAM - Nurse 1 - General Ulcer Measurement Start: 11/15/22 09:11 Freq: Status: Active Protocol: Activity Type Activity Date Activity User E-sign Co-sign Detail Recorded Client Recorded Date Recorded By Document 11/15/22 09:11 MT Desktop 11/15/22 09:28 MT Document 11/22/22 09:03 [id number] 11/22/22 09:11 JF 11/15/22 11/22/22 09:11 09:03 Wound Center Nurse 1 #1- R HEEL -Combined with other wound No -Current Size (cm) - Length 3 2.6 -Current Size (cm) - Width 1.9 2.0 -Current Size (cm) - Depth 1.0 0.8 -Total Square Cm 5.7 5.20 -Date of Last Picture (Recall this 11/22/22 field) -Photo Taken Yes -Tunneling No -Undermining/Tunneling No -Circular Undermining No -Exudate Amt Medium -Exudate Type Serosanguineous -Granulation Amt Medium (34-66%) Medium (34-66%) -Granulation Quality Pale,[place] -Necrosis Amt Small (1-33%) Medium (34-66%) -Necrotic Tissue Type Adherent Slough Adherent Slough -Texture (Lianna-wound Skin Appearance) Assessed -Moisture (Lianna-wound Skin Appearance) Assessed -Color (Lianna-wound Skin Appearance) Assessed -Temperature (Lianna-wound Skin No Abnormality No Abnormality Appearance) (Pt Warm) (Pt Warm) -Tenderness on Palpation (Lianna-wound No No Skin Appearance) -Ulcer Cleansing Soap and Water Soap and Water -Foul Odor after Cleansing No No -Anesthetic Used 4% Lidocaine 5% Lidocaine Solution Gel Lower Limb Edema Present Yes Right Calf (cm) 48.5 47.2 Right Ankle (cm) 29.2 30.7 WC - Nurse 2 - General Ulcer CM Notes Start: 11/15/22 09:11 Freq: Status: Active Protocol: Activity Type Activity Date Activity User E-sign Co-sign Detail Recorded Client Recorded Date Recorded By Document 11/15/22 09:42 [id number] 11/15/22 09:54 Document 11/22/22 09:26 [id number] 11/22/22 09:33 JF 11/15/22 11/22/22 09:42 09:26 Wound Center Nurse 2 #1- R HEEL -Time 09:42 09:29 -Correct Patient Yes Yes -Correct Side, Site, Position Yes Yes -Correct Procedure Yes Yes -Procedure Performed Yes Yes -Type of Procedure Debridement Debridement -Clinical Debridement Subcutaneous Subcutaneous -Tissue Removed Subcutaneous Subcutaneous -Post Debridement (cm) - Length 2.5 2.8 -Post Debridement (cm) - Width 2.5 2.0 -Post Debridement (cm) - Depth 1.0 0.9 -Total Square (Post) (cm) 6.25 5.60 -Area of Debridement (cm) - Length 2.5 2.8 -Area of Debridement (cm) - Width 2.5 2.0 -Total Square (Area) (cm) 6.25 5.60 -Tunneling No No -Undermining/Tunneling No No -Circular Undermining No No -Wound/Ulcer Outcome Not Healed Not Healed -Ulcer Cleansing Rinsed/ Rinsed/ Irrigated with Irrigated with Saline Saline -Foul Odor after Cleansing No No -Bioengineered Tissue Yes Yes -Type of Bioengineered Tissue Epicord Epicord -Expiration Date 11/11/26 12/11/26 -Product Lot Number [id number] -Percent Used 100 100 -Lot number of Saline Used [id number] -Bleeding Controlled with Pressure Pressure -Treatment Response Procedure Procedure Tolerated Well Tolerated Well -Offloading Yes Yes -Type of Offloading Total Contact Total Contact Cast (TCC) - Cast (TCC) - Right ($) Right ($) -Assistive Device(s) Walker -Debridement - Subq, 1st 20sq cm No No -Apply Skin Sub - 1st 25 sq cm - Feet 1 1 -Epicord (per sq cm) 6 6 Pain Scale: 0-10 Numeric Is Patient Pain Free? Yes Yes Assessment/Plan Assessment/Plan (1) Pressure ulcer of right heel, stage 3: CODE(S): L89.613 - Pressure ulcer of right heel, stage 3 (2) Non-healing ulcer of right foot with fat layer exposed: CODE(S): L97.512 - Non-pressure chronic ulcer of other part of right foot with fat layer exposed (3) VRE (vancomycin-resistant Enterococci) infection: CODE(S): A49.1 - Streptococcal infection, unspecified site; Z16.21 - Resistance to vancomycin (4) History of total knee arthroplasty: CODE(S): Z96.659 - Presence of unspecified artificial knee joint (5) Diabetic polyneuropathy: CODE(S): E11.42 - Type 2 diabetes mellitus with diabetic polyneuropathy (6) Diabetes mellitus: CODE(S): E11.9 - Type 2 diabetes mellitus without complications (7) Lymphedema: CODE(S): I89.0 - Lymphedema, not elsewhere classified (8) Lower extremity edema: CODE(S): R60.0 - Localized edema PLAN: Plan Patient evaluated at the wound healing center. He was approved for Epicord/Epifix to this ulcer. He has shown improvement in his ulcer with off loading with TCC. Wound care - Epicord #5 placed today.? 100% of the product was used. Placed wound veil over top and secured with skin prep and steri strips. Will top with Aquacel to absorb moisture and top with gauze. Offloading: He is amendable to have a total contact cast applied today and verbal consent was obtained.? This was applied according to standard protocol in a neutral position a well-padded manner.? He tolerated this well.? To keep clean, dry, and intact until follow-up visit. He was encouraged to only walk with a total contact cast while in the cast boot.? He was also instructed to not get the cast wet and to shower using cast bag.? He voices understanding of this. I discussed with him that he will not be able to visualize for signs and symptoms of infection while he is in a total contact cast.? I did discuss the signs and symptoms of infection today.? Informed him if he notices any redness moving up the leg, continued feeling of oozing, increasing odor, increasing pain, or if he experiences any fever greater than 101 degree, nausea, vomiting, or chills that he is to report straight to the ED for removal of the total contact cast for evaluation as these are signs of progressing infection.? He voices understanding of this today. A wound culture was obtained 08/30/22 which was positive for VRE, Kocuria kristinae, and Corynebacterium striatum completed Linezolid. Encouraged increase protein intake with low carbs to help with blood sugars and wound healing. He is on Doxycycline as suppressive treatment since he had his left knee replaced, this is prescribed by Orthopaedics. Follow up one week. Call or come in sooner if develop any concerns.
[2022-11-29 09:07] VITALS: BP 161/71; PULSE 92; RESP 22; TEMP 36.5; BMI 46.5
--- NOTE | 2022-11-29 10:01 | PCM.WC.PN ---
History of Present Illness Date of Service: 11/29/22 Chief Complaint: Right heel ulcer History of Wound: 66 year old male presents to the wound center for evaluation of his right heal ulcer. It started as a a pressure ulcer in February when he he was in TCU and it healed. It then became a blister right before his Left TKR surgery. He had his left knee replaced 07/14/22 at [facility]. 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 He also has a history of diabetes, HTN, lymphedema, hypercholesterolemia and PE that he is on Xerelto. He currently has home health. Wound culture obtained on 08/30/22 which are positive for VRE, Kocuria kristinae and Corynebacterium striatum. He will completed the Linezolid. Foot xray 09/27/22 - Osteopenia with diffuse osteoarthritic changes. Diffuse soft tissue swelling with ossification of the distal Achilles tendon. No acute abnormality or evidence of erosive changes. Wound care - He has been approved for Epicord and Epifix. He denies any fever, chills, nausea and vomiting. Progress of Wound: He has been tolerating the TCC. His ulcer has decreased depth is stable this week. No callus surrounding the ulcer with him wearing the TCC. Will place Epicord #6 today. Objective Data Objective Data Vital Signs: Vital Signs Temp Pulse Resp BP O2 Del Method 97.7 F L 92 22 H 161/71 H Room Air 11/29/22 09:07 11/29/22 09:07 11/29/22 09:07 11/29/22 09:07 11/15/22 09:11 Oxygen Delivery Method Room Air Weight: 343 lb Body Mass Index (BMI) 46.5 Charges/Coding Procedures Integumentary 150xxx-152xx: 96995 Skin sub graft face/nk/hf/g Procedures Musculoskeletal 20xxx-29xxx: [id number] APPLY RIGID LEG CAST (total contact cast) Debridement Note Debridement Note Wound debrided: Right posterior lateral heel Laterality: Right Wound Grade/Stage: Gomez stage III Type of Debridement: Excisional debridement Anesthesia Used: 5% Lidocaine Gel Depth: Down to and including healthy tissue and in the subcutaneous layer Percentage of wound debrided: 100 Instrument Used: 5mm curette Tissue Removed: Devitalized subcutaneous, biofilm, slough Severity: Fat Layer Exposed Amount of bleeding with debridement: Mild Bleeding Controlled with: Pressure and Compression and gauze Patient tolerated procedure: Patient tolerated procedure well Post-Debridement Measurements and Additional Note: Post-Debridement Measurements/Treatment WC - Nurse 1 - General Ulcer Assessment Start: 11/15/22 09:11 Freq: Status: Active Protocol: NELL Activity Type Activity Date Activity User E-sign Co-sign Detail Recorded Client Recorded Date Recorded By Document 11/15/22 09:11 MT Desktop 11/15/22 09:28 MT Document 11/22/22 09:03 JF [id number] 11/22/22 09:11 JF Document 11/29/22 09:07 DL [id number] 11/29/22 09:17 DL 11/15/22 11/22/22 11/29/22 09:11 09:03 09:07 - Today's Visit Information Type of service Follow-up Visit Follow-up Visit (Physician/NAPHTHALENE OPERATOR (Physician/NAPHTHALENE OPERATOR ) ) Arrival Mode Ambulatory Ambulatory, Walker Transfer Assistance None Accompanied by Patient Identification Verified (Name & Yes Yes ) Patient Requires Transmission-Based No Precautions Finger Stick Blood Sugar(mg/dl) (if 202 indicated): Blood Sugar Stated by Patient Height and Weight Body Mass Index (BMI) 46.5 46.5 46.5 BMI Classification Obese Obese Obese Vital Signs Temperature (97.8 F-99.1 F) 97 F L 97.3 F L 97.7 F L Temperature Source Temporal Temporal Temporal Pulse Rate (60-100) 80 104 H 92 Pulse Location Monitor Monitor Respiratory Rate (12-18) 18 18 22 H Respiratory rate source Observation Observation Oxygen Delivery Method Room Air Blood Pressure (90/60-120/80) 137/77 H 147/74 H 161/71 H Blood Pressure Mean (mm Hg) 97 98 101 Source Monitor Monitor Position Sitting Blood Pressure Location Left Arm History Since Last Visit- (Skip if this is Patient's initial visit) Have you changed medications since your No No last visit? Any new allergies or adverse reactions No No Had a fall/change in ADL's that may No No increase risk of falls Signs or symptoms of abuse and/or No No neglect since last visit Have you been in the hospital since your No No last visit? Has dressing in place as prescribed Yes Yes Yes Has compression in place as prescribed Yes Yes Has offloadiing in place as prescribed Yes Yes Yes Experienced any changes in pain level or Yes No No management Left Footwear Regular Shoe Right Footwear Total Contact Total Contact Cast Cast Pain Scale: 0-10 Numeric Is Patient Pain Free? Yes No Yes WC - Nurse 1 - General Ulcer Measurement Start: 11/15/22 09:11 Freq: Status: Active Protocol: Activity Type Activity Date Activity User E-sign Co-sign Detail Recorded Client Recorded Date Recorded By Document 11/15/22 09:11 MT Desktop 11/15/22 09:28 MT Document 11/22/22 09:03 JF [id number] 11/22/22 09:11 JF Document 11/29/22 09:07 DL [id number] 11/29/22 09:17 DL 11/15/22 11/22/22 11/29/22 09:11 09:03 09:07 Wound Center Nurse 1 #1- R HEEL -Combined with other wound No -Current Size (cm) - Length 3 2.6 2.5 -Current Size (cm) - Width 1.9 2.0 1.8 -Current Size (cm) - Depth 1.0 0.8 0.7 -Total Square Cm 5.7 5.20 4.50 -Date of Last Picture (Recall this 11/22/22 field) -Photo Taken Yes Yes -Tunneling No -Undermining/Tunneling No -Circular Undermining No -Exudate Amt Medium Medium -Exudate Type Serosanguineous Serosanguineous -Wound Margin Distinct, Outline Attached -Granulation Amt Medium (34-66%) Medium (34-66%) Large (67-100%) -Granulation Quality Pale,Plush Plush Red -Necrosis Amt Small (1-33%) Medium (34-66%) Small (1-33%) -Necrotic Tissue Type Adherent Slough Adherent Slough Adherent Slough -Structure Exposed N/A -Texture (Lianna-wound Skin Appearance) Assessed Scarring -Moisture (Lianna-wound Skin Appearance) Assessed No Abnormality -Color (Lianna-wound Skin Appearance) Assessed No Abnormality -Temperature (Lianna-wound Skin No Abnormality No Abnormality No Abnormality Appearance) (Pt Warm) (Pt Warm) (Pt Warm) -Tenderness on Palpation (Lianna-wound No No Skin Appearance) -Ulcer Cleansing Soap and Water Soap and Water Soap and Water -Foul Odor after Cleansing No No No -Anesthetic Used 4% Lidocaine 5% Lidocaine 5% Lidocaine Solution Gel Gel Lower Limb Edema Present Yes Right Calf (cm) 48.5 47.2 Right Ankle (cm) 29.2 30.7 WC - Nurse 2 - General Ulcer CM Notes Start: 11/15/22 09:11 Freq: Status: Active Protocol: Activity Type Activity Date Activity User E-sign Co-sign Detail Recorded Client Recorded Date Recorded By Document 11/15/22 09:42 [id number] 11/15/22 09:54 Document 11/22/22 09:26 [id number] 11/22/22 09:33 Document 11/29/22 09:39 [id number] 11/29/22 09:47 11/15/22 11/22/22 11/29/22 09:42 09:26 09:39 Wound Center Nurse 2 #1- R HEEL -Time 09:42 09:29 09:39 -Correct Patient Yes Yes Yes -Correct Side, Site, Position Yes Yes Yes -Correct Procedure Yes Yes Yes -Procedure Performed Yes Yes Yes -Type of Procedure Debridement Debridement Debridement -Clinical Debridement Subcutaneous Subcutaneous Subcutaneous -Tissue Removed Subcutaneous Subcutaneous Subcutaneous -Post Debridement (cm) - Length 2.5 2.8 2.7 -Post Debridement (cm) - Width 2.5 2.0 1.7 -Post Debridement (cm) - Depth 1.0 0.9 0.9 -Total Square (Post) (cm) 6.25 5.60 4.59 -Area of Debridement (cm) - Length 2.5 2.8 2.7 -Area of Debridement (cm) - Width 2.5 2.0 1.7 -Total Square (Area) (cm) 6.25 5.60 4.59 -Tunneling No No No -Undermining/Tunneling No No No -Circular Undermining No No No -Wound/Ulcer Outcome Not Healed Not Healed Not Healed -Ulcer Cleansing Rinsed/ Rinsed/ Rinsed/ Irrigated with Irrigated with Irrigated with Saline Saline Saline -Foul Odor after Cleansing No No No -Bioengineered Tissue Yes Yes Yes -Type of Bioengineered Tissue Epicord Epicord Epicord -Expiration Date 11/11/26 12/11/26 12/11/26 -Product Lot Number [id number] -Percent Used 100 100 100 -Lot number of Saline Used [id number] -Bleeding Controlled with Pressure Pressure Pressure -Treatment Response Procedure Procedure Procedure Tolerated Well Tolerated Well Tolerated Well -Offloading Yes Yes Yes -Type of Offloading Total Contact Total Contact Total Contact Cast (TCC) - Cast (TCC) - Cast (TCC) - Right ($) Right ($) Right ($) -Assistive Device(s) Walker -Debridement - Subq, 1st 20sq cm No No No -Apply Skin Sub - 1st 25 sq cm - Feet 1 1 1 -Epicord (per sq cm) 6 6 Pain Scale: 0-10 Numeric Is Patient Pain Free? 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 Yes - Visit Discharge Discharge Condition Stable Ambulatory Status Ambulatory Transportation Private Auto Assessment/Plan Assessment/Plan (1) Pressure ulcer of right heel, stage 3: CODE(S): L89.613 - Pressure ulcer of right heel, stage 3 (2) Non-healing ulcer of right foot with fat layer exposed: CODE(S): L97.512 - Non-pressure chronic ulcer of other part of right foot with fat layer exposed (3) VRE (vancomycin-resistant Enterococci) infection: CODE(S): A49.1 - Streptococcal infection, unspecified site; Z16.21 - Resistance to vancomycin (4) History of total knee arthroplasty: CODE(S): Z96.659 - Presence of unspecified artificial knee joint (5) Diabetic polyneuropathy: CODE(S): E11.42 - Type 2 diabetes mellitus with diabetic polyneuropathy (6) Diabetes mellitus: CODE(S): E11.9 - Type 2 diabetes mellitus without complications (7) Lymphedema: CODE(S): I89.0 - Lymphedema, not elsewhere classified (8) Lower extremity edema: CODE(S): R60.0 - Localized edema PLAN: Plan Patient evaluated at the wound healing center. He was approved for Epicord/Epifix to this ulcer. He has shown improvement in his ulcer with off loading with TCC. Wound care - Epicord #6 placed today.? 100% of the product was used. Placed wound veil over top and secured with skin prep and steri strips. Will top with Aquacel to absorb moisture and top with gauze. Offloading: He is amendable to have a total contact cast applied today and verbal consent was obtained.? This was applied according to standard protocol in a neutral position a well-padded manner.? He tolerated this well.? To keep clean, dry, and intact until follow-up visit. He was encouraged to only walk with a total contact cast while in the cast boot.? He was also instructed to not get the cast wet and to shower using cast bag.? He voices understanding of this. I discussed with him that he will not be able to visualize for signs and symptoms of infection while he is in a total contact cast.? I did discuss the signs and symptoms of infection today.? Informed him if he notices any redness moving up the leg, continued feeling of oozing, increasing odor, increasing pain, or if he experiences any fever greater than 101 degree, nausea, vomiting, or chills that he is to report straight to the ED for removal of the total contact cast for evaluation as these are signs of progressing infection.? He voices understanding of this today. A wound culture was obtained 08/30/22 which was positive for VRE, Kocuria kristinae, and Corynebacterium striatum completed Linezolid. Encouraged increase protein intake with low carbs to help with blood sugars and wound healing. He is on Doxycycline as suppressive treatment since he had his left knee replaced, this is prescribed by Orthopaedics. Follow up one week. Call or come in sooner if develop any concerns.
[2022-12-06 10:16] VITALS: BP 166/116; PULSE 101; RESP 20; TEMP 36.4; BMI 46.5
--- NOTE | 2022-12-06 11:41 | PCM.WC.PN ---
History of Present Illness Date of Service: 12/06/22 Chief Complaint: Right heel ulcer History of Wound: 66 year old male presents to the wound center for evaluation of his right heal ulcer. It started as a a pressure ulcer in February when he he was in TCU and it healed. It then became a blister right before his Left TKR surgery. He had his left knee replaced 07/14/22 at [facility]. 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 He also has a history of diabetes, HTN, lymphedema, hypercholesterolemia and PE that he is on Xerelto. He currently has home health. Wound culture obtained on 08/30/22 which are positive for VRE, Kocuria kristinae and Corynebacterium striatum. He will completed the Linezolid. Foot xray 09/27/22 - Osteopenia with diffuse osteoarthritic changes. Diffuse soft tissue swelling with ossification of the distal Achilles tendon. No acute abnormality or evidence of erosive changes. Wound care - He has been approved for Epicord and Epifix. He denies any fever, chills, nausea and vomiting. Progress of Wound: He has been tolerating the TCC. His ulcer has decreased depth this week and the ulcer is a nice beefy pink color. No callus surrounding the ulcer with him wearing the TCC. Will place Epicord #7 today. Objective Data Objective Data Vital Signs: Vital Signs Temp Pulse Resp BP O2 Del Method 97.5 F L 101 H 20 H 166/116 H Room Air 12/06/22 10:16 12/06/22 10:16 12/06/22 10:16 12/06/22 10:16 11/15/22 09:11 Oxygen Delivery Method Room Air Weight: 343 lb Body Mass Index (BMI) 46.5 Charges/Coding Procedures Integumentary 150xxx-152xx: 99499 Skin sub graft face/nk/hf/g Procedures Musculoskeletal 20xxx-29xxx: 79846 APPLY RIGID LEG CAST (total contact cast) Debridement Note Debridement Note Wound debrided: Right posterior lateral heel Laterality: Right Wound Grade/Stage: Gomez stage III Type of Debridement: Excisional debridement Anesthesia Used: 5% Lidocaine Gel Depth: Down to and including healthy tissue and in the subcutaneous layer Percentage of wound debrided: 100 Instrument Used: 5mm curette Tissue Removed: Devitalized subcutaneous, biofilm, slough Severity: Fat Layer Exposed Amount of bleeding with debridement: Mild Bleeding Controlled with: Pressure and Compression and gauze Patient tolerated procedure: Patient tolerated procedure well Post-Debridement Measurements and Additional Note: Post-Debridement Measurements/Treatment - Nurse 1 - General Ulcer Assessment Start: 11/15/22 09:11 Freq: Status: Active Protocol: NELL Activity Type Activity Date Activity User E-sign Co-sign Detail Recorded Client Recorded Date Recorded By Document 11/15/22 09:11 MT Desktop 11/15/22 09:28 MT Document 11/22/22 09:03 JF [id number] 11/22/22 09:11 JF Document 11/29/22 09:07 DL [id number] 11/29/22 09:17 DL Document 12/06/22 10:16 PL [id number] 12/06/22 10:31 PL 11/15/22 11/22/22 11/29/22 09:11 09:03 09:07 - Today's Visit Information Type of service Follow-up Visit Follow-up Visit (Physician/STERILE PREPARATION TECHNICIAN (Physician/STERILE PREPARATION TECHNICIAN ) ) Arrival Mode Ambulatory Ambulatory, Walker Transfer Assistance None Accompanied by Patient Identification Verified (Name & Yes Yes ) Patient Requires Transmission-Based No Precautions Safety Precautions Finger Stick Blood Sugar(mg/dl) (if 202 indicated): Blood Sugar Stated by Patient Height and Weight Body Mass Index (BMI) 46.5 46.5 46.5 BMI Classification Obese Obese Obese Vital Signs Temperature (97.8 F-99.1 F) 97 F L 97.3 F L 97.7 F L Temperature Source Temporal Temporal Temporal Pulse Rate (60-100) 80 104 H 92 Pulse Location Monitor Monitor Respiratory Rate (12-18) 18 18 22 H Respiratory rate source Observation Observation Oxygen Delivery Method Room Air Blood Pressure (90/60-120/80) 137/77 H 147/74 H 161/71 H Blood Pressure Mean (mm Hg) 97 98 101 Source Monitor Monitor Position Sitting Blood Pressure Location Left Arm History Since Last Visit- (Skip if this is Patient's initial visit) Have you changed medications since your No No last visit? Any new allergies or adverse reactions No No Had a fall/change in ADL's that may No No increase risk of falls Signs or symptoms of abuse and/or No No neglect since last visit Have you been in the hospital since your No No last visit? Has dressing in place as prescribed Yes Yes Yes Has compression in place as prescribed Yes Yes Has offloadiing in place as prescribed Yes Yes Yes Experienced any changes in pain level or Yes No No management Left Footwear Regular Shoe Right Footwear Total Contact Total Contact Cast Cast Pain Scale: 0-10 Numeric Is Patient Pain Free? Yes No Yes 12/06/22 10:16 WC - Today's Visit Information Type of service Follow-up Visit (Physician/STERILE PREPARATION TECHNICIAN ) Arrival Mode Walker Transfer Assistance None Accompanied by Patient Identification Verified (Name & Yes ) Patient Requires Transmission-Based No Precautions Safety Precautions NA Finger Stick Blood Sugar(mg/dl) (if 205 indicated): Blood Sugar Stated by Patient Height and Weight Body Mass Index (BMI) 46.5 BMI Classification Obese Vital Signs Temperature (97.8 F-99.1 F) 97.5 F L Temperature Source Temporal Pulse Rate (60-100) 101 H Pulse Location Respiratory Rate (12-18) 20 H Respiratory rate source Oxygen Delivery Method Blood Pressure (90/60-120/80) 166/116 H Blood Pressure Mean (mm Hg) 132 Source Position Blood Pressure Location History Since Last Visit- (Skip if this is Patient's initial visit) Have you changed medications since your No last visit? Any new allergies or adverse reactions No Had a fall/change in ADL's that may No increase risk of falls Signs or symptoms of abuse and/or No neglect since last visit Have you been in the hospital since your No last visit? Has dressing in place as prescribed Yes Has compression in place as prescribed Yes Has offloadiing in place as prescribed Yes Experienced any changes in pain level or No management Left Footwear Right Footwear Pain Scale: 0-10 Numeric Is Patient Pain Free? Yes - Nurse 1 - General Ulcer Measurement Start: 11/15/22 09:11 Freq: Status: Active Protocol: Activity Type Activity Date Activity User E-sign Co-sign Detail Recorded Client Recorded Date Recorded By Document 11/15/22 09:11 MT Desktop 11/15/22 09:28 MT Document 11/22/22 09:03 JF [id number] 11/22/22 09:11 JF Document 11/29/22 09:07 DL [id number] 11/29/22 09:17 DL Document 12/06/22 10:16 PL [id number] 12/06/22 10:31 PL 11/15/22 11/22/22 11/29/22 09:11 09:03 09:07 Wound Center Nurse 1 #1- R HEEL -Combined with other wound No -Current Size (cm) - Length 3 2.6 2.5 -Current Size (cm) - Width 1.9 2.0 1.8 -Current Size (cm) - Depth 1.0 0.8 0.7 -Total Square Cm 5.7 5.20 4.50 -Date of Last Picture (Recall this 11/22/22 field) -Photo Taken Yes Yes -Epithelialization -Tunneling No -Undermining/Tunneling No -Circular Undermining No -Exudate Amt Medium Medium -Exudate Type Serosanguineous Serosanguineous -Wound Margin Distinct, Outline Attached -Granulation Amt Medium (34-66%) Medium (34-66%) Large (67-100%) -Granulation Quality Pale,Bowden Bowden Red -Slough/Fibrin -Necrosis Amt Small (1-33%) Medium (34-66%) Small (1-33%) -Necrotic Tissue Type Adherent Slough Adherent Slough Adherent Slough -Structure Exposed N/A -Texture (Lianna-wound Skin Appearance) Assessed Scarring -Moisture (Lianna-wound Skin Appearance) Assessed No Abnormality -Color (Lianna-wound Skin Appearance) Assessed No Abnormality -Temperature (Lianna-wound Skin No Abnormality No Abnormality No Abnormality Appearance) (Pt Warm) (Pt Warm) (Pt Warm) -Tenderness on Palpation (Lianna-wound No No Skin Appearance) -Ulcer Cleansing Soap and Water Soap and Water Soap and Water -Foul Odor after Cleansing No No No -Anesthetic Used 4% Lidocaine 5% Lidocaine 5% Lidocaine Solution Gel Gel Lower Limb Edema Present Yes Right Calf (cm) 48.5 47.2 Right Ankle (cm) 29.2 30.7 12/06/22 10:16 Wound Center Nurse 1 #1- R HEEL -Combined with other wound No -Current Size (cm) - Length 2.5 -Current Size (cm) - Width 1.7 -Current Size (cm) - Depth 0.3 -Total Square Cm 4.25 -Date of Last Picture (Recall this field) -Photo Taken No -Epithelialization Medium 34-66% -Tunneling No -Undermining/Tunneling No -Circular Undermining No -Exudate Amt Medium -Exudate Type Serosanguineous -Wound Margin -Granulation Amt Medium (34-66%) -Granulation Quality Pale,Bowden -Slough/Fibrin Yes -Necrosis Amt Medium (34-66%) -Necrotic Tissue Type Adherent Slough -Structure Exposed -Texture (Lianna-wound Skin Appearance) No Abnormality -Moisture (Lianna-wound Skin Appearance) No Abnormality -Color (Lianna-wound Skin Appearance) No Abnormality -Temperature (Lianna-wound Skin No Abnormality Appearance) (Pt Warm) -Tenderness on Palpation (Lianna-wound Skin Appearance) -Ulcer Cleansing Soap and Water -Foul Odor after Cleansing No -Anesthetic Used 5% Lidocaine Gel Lower Limb Edema Present Right Calf (cm) Right Ankle (cm) WC - Nurse 2 - General Ulcer CM Notes Start: 11/15/22 09:11 Freq: Status: Active Protocol: Activity Type Activity Date Activity User E-sign Co-sign Detail Recorded Client Recorded Date Recorded By Document 11/15/22 09:42 [id number] 11/15/22 09:54 JF Document 11/22/22 09:26 [id number] 11/22/22 09:33 JF Document 11/29/22 09:39 [id number] 11/29/22 09:47 JF Edit Result 11/29/22 09:39 JF (1) [id number] 11/30/22 07:05 Document 12/06/22 10:39 [id number] 12/06/22 10:45 JF (1) #1- R HEEL - Epicord (per sq cm) => 6 11/15/22 11/22/22 11/29/22 09:42 09:26 09:39 Wound Center Nurse 2 #1- R HEEL -Time 09:42 09:29 09:39 -Correct Patient Yes Yes Yes -Correct Side, Site, Position Yes Yes Yes -Correct Procedure Yes Yes Yes -Procedure Performed Yes Yes Yes -Type of Procedure Debridement Debridement Debridement -Clinical Debridement Subcutaneous Subcutaneous Subcutaneous -Tissue Removed Subcutaneous Subcutaneous Subcutaneous -Post Debridement (cm) - Length 2.5 2.8 2.7 -Post Debridement (cm) - Width 2.5 2.0 1.7 -Post Debridement (cm) - Depth 1.0 0.9 0.9 -Total Square (Post) (cm) 6.25 5.60 4.59 -Area of Debridement (cm) - Length 2.5 2.8 2.7 -Area of Debridement (cm) - Width 2.5 2.0 1.7 -Total Square (Area) (cm) 6.25 5.60 4.59 -Tunneling No No No -Undermining/Tunneling No No No -Circular Undermining No No No -Wound/Ulcer Outcome Not Healed Not Healed Not Healed -Ulcer Cleansing Rinsed/ Rinsed/ Rinsed/ Irrigated with Irrigated with Irrigated with Saline Saline Saline -Foul Odor after Cleansing No No No -Bioengineered Tissue Yes Yes Yes -Type of Bioengineered Tissue Epicord Epicord Epicord -Expiration Date 11/11/26 12/11/26 12/11/26 -Product Lot Number [id number] -Percent Used 100 100 100 -Lot number of Saline Used [id number] -Bleeding Controlled with Pressure Pressure Pressure -Treatment Response Procedure Procedure Procedure Tolerated Well Tolerated Well Tolerated Well -Offloading Yes Yes Yes -Type of Offloading Total Contact Total Contact Total Contact Cast (TCC) - Cast (TCC) - Cast (TCC) - Right ($) Right ($) Right ($) -Assistive Device(s) Walker -Debridement - Subq, 1st 20sq cm No No No -Apply Skin Sub - 1st 25 sq cm - Feet 1 1 1 -Epicord (per sq cm) 6 6 6 Pain Scale: 0-10 Numeric Is Patient Pain Free? Yes Yes Yes 12/06/22 10:39 Wound Center Nurse 2 #1- R HEEL -Time 10:39 -Correct Patient Yes -Correct Side, Site, Position Yes -Correct Procedure Yes -Procedure Performed Yes -Type of Procedure Debridement -Clinical Debridement Subcutaneous -Tissue Removed Subcutaneous -Post Debridement (cm) - Length 2.7 -Post Debridement (cm) - Width 2.0 -Post Debridement (cm) - Depth 0.4 -Total Square (Post) (cm) 5.40 -Area of Debridement (cm) - Length 2.7 -Area of Debridement (cm) - Width 2.0 -Total Square (Area) (cm) 5.40 -Tunneling No -Undermining/Tunneling No -Circular Undermining No -Wound/Ulcer Outcome Not Healed -Ulcer Cleansing Rinsed/ Irrigated with Saline -Foul Odor after Cleansing No -Bioengineered Tissue Yes -Type of Bioengineered Tissue Epicord -Expiration Date 07/13/27 -Product Lot Number [id number] -Percent Used 100 -Lot number of Saline Used [id number] -Bleeding Controlled with Pressure -Treatment Response Procedure Tolerated Well -Offloading Yes -Type of Offloading Total Contact Cast (TCC) - Right ($) -Assistive Device(s) -Debridement - Subq, 1st 20sq cm No -Apply Skin Sub - 1st 25 sq cm - Feet 1 -Epicord (per sq cm) 6 Pain Scale: 0-10 Numeric Is Patient Pain Free? Yes - Nurse 3 - General Ulcer D/C NN Start: 11/15/22 09:11 Freq: Status: Active Protocol: Activity Type Activity Date Activity User E-sign Co-sign Detail Recorded Client Recorded Date Recorded By Document 11/29/22 09:59 [facility] [id number] 11/29/22 10:01 [facility] 11/29/22 09:59 Wound Care Center Nurse 3 #1- R HEEL -Primary Dressing Applied Aquacel Extra -Other Dressing EPICORD -Other Covering SIZE 3 TCC; DRSG PER DL SHREDDING MACHINE TENDER -Aquacel Extra 1 Treatment Response Procedure Tolerated Well Pain Scale: 0-10 Numeric Is Patient Pain Free? Yes - Visit Discharge Discharge Condition Stable Ambulatory Status Ambulatory Transportation Private Auto Assessment/Plan Assessment/Plan (1) Pressure ulcer of right heel, stage 3: CODE(S): L89.613 - Pressure ulcer of right heel, stage 3 (2) Non-healing ulcer of right foot with fat layer exposed: CODE(S): L97.512 - Non-pressure chronic ulcer of other part of right foot with fat layer exposed (3) VRE (vancomycin-resistant Enterococci) infection: CODE(S): A49.1 - Streptococcal infection, unspecified site; Z16.21 - Resistance to vancomycin (4) History of total knee arthroplasty: CODE(S): Z96.659 - Presence of unspecified artificial knee joint (5) Diabetic polyneuropathy: CODE(S): E11.42 - Type 2 diabetes mellitus with diabetic polyneuropathy (6) Diabetes mellitus: CODE(S): E11.9 - Type 2 diabetes mellitus without complications (7) Lymphedema: CODE(S): I89.0 - Lymphedema, not elsewhere classified (8) Lower extremity edema: CODE(S): R60.0 - Localized edema PLAN: Plan Patient evaluated at the wound healing center. He was approved for Epicord/Epifix to this ulcer. He has shown improvement in his ulcer with off loading with TCC. Wound care - Epicord #7 placed today.? 100% of the product was used. Placed wound veil over top and secured with skin prep and steri strips. Will top with Aquacel to absorb moisture and top with gauze. Offloading: He is amendable to have a total contact cast applied today and verbal consent was obtained.? This was applied according to standard protocol in a neutral position a well-padded manner.? He tolerated this well.? To keep clean, dry, and intact until follow-up visit. He was encouraged to only walk with a total contact cast while in the cast boot.? He was also instructed to not get the cast wet and to shower using cast bag.? He voices understanding of this. I discussed with him that he will not be able to visualize for signs and symptoms of infection while he is in a total contact cast.? I did discuss the signs and symptoms of infection today.? Informed him if he notices any redness moving up the leg, continued feeling of oozing, increasing odor, increasing pain, or if he experiences any fever greater than 101 degree, nausea, vomiting, or chills that he is to report straight to the ED for removal of the total contact cast for evaluation as these are signs of progressing infection.? He voices understanding of this today. A wound culture was obtained 08/30/22 which was positive for VRE, Kocuria kristinae, and Corynebacterium striatum completed Linezolid. Encouraged increase protein intake with low carbs to help with blood sugars and wound healing. He is on Doxycycline as suppressive treatment since he had his left knee replaced, this is prescribed by Orthopaedics. Follow up one week. Call or come in sooner if develop any concerns.
== END 2022-12-10 23:59 | disposition home or self-care (01) ==
LOC: WC 10:30
PROVIDERS: PCP Internal Medicine; Visit Provider Nurse Practitioner Family
DX: E11.621 Type 2 diabetes mellitus with foot ulcer (principal); L89.613 Pressure ulcer of right heel, stage 3; L97.512 Non-pressure chronic ulcer of other part of right foot with fat layer exposed; E11.42 Type 2 diabetes mellitus with diabetic polyneuropathy; Z79.4 Long term (current) use of insulin; I10 Essential (primary) hypertension; E78.00 Pure hypercholesterolemia, unspecified; I89.0 Lymphedema, not elsewhere classified; R60.0 Localized edema; Z79.82 Long term (current) use of aspirin; Z79.01 Long term (current) use of anticoagulants; Z79.899 Other long term (current) drug therapy; Z96.652 Presence of left artificial knee joint
CPT/HCPCS: 15275; 29445; Q4187

== ENCOUNTER 2023-01-10 10:30 | Outpatient (RCR) | payer MEDICARE, BC, SELFPAY ==
[2022-12-11 00:22] VITALS: BP 166/116; PULSE 101; RESP 20; TEMP 36.4; BMI 46.5
[2022-12-13 08:32] VITALS: BP 139/84; PULSE 101; RESP 20; TEMP 36.4; BMI 46.5
--- NOTE | 2022-12-13 11:00 | PN.PCM_ITS ---
History of Present Illness Date of Service: 12/13/22 Chief Complaint: Right heel ulcer History of Wound: 66 year old male presents to the wound center for evaluation of his right heal ulcer. It started as a a pressure ulcer in February when he he was in TCU and it healed. It then became a blister right before his Left TKR surgery. He had his left knee replaced 07/14/22 at [facility]. 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 He also has a history of diabetes, HTN, lymphedema, hypercholesterolemia and PE that he is on Xerelto. He currently has home health. Wound culture obtained on 08/30/22 which are positive for VRE, Kocuria kristinae and Corynebacterium striatum. He will completed the Linezolid. Foot xray 09/27/22 - Osteopenia with diffuse osteoarthritic changes. Diffuse soft tissue swelling with ossification of the distal Achilles tendon. No acute abnormality or evidence of erosive changes. Wound care - He has been approved for Epicord and Epifix. He denies any fever, chills, nausea and vomiting. Progress of Wound: He has been tolerating the TCC. His ulcer has decreased depth this week and the ulcer is a nice beefy pink color except for the proximal edge has a dark area of eschar. No callus surrounding the ulcer with him wearing the TCC. Will place Epifix today. Objective Data Objective Data Vital Signs: Vital Signs Temp Pulse Resp BP 97.6 F L 101 H 20 H 139/84 H 12/13/22 08:32 12/13/22 08:32 12/13/22 08:32 12/13/22 08:32 Weight: 343 lb Body Mass Index (BMI) 46.5 Charges/Coding Procedures Integumentary 150xxx-152xx: 35171 Skin sub graft face/nk/hf/g Procedures Musculoskeletal 20xxx-29xxx: 69010 APPLY RIGID LEG CAST (total contact cast) Debridement Note Debridement Note Wound debrided: Right posterior lateral heel Laterality: Right Wound Grade/Stage: Gomez stage III Type of Debridement: Excisional debridement Anesthesia Used: 5% Lidocaine Gel Depth: Down to and including healthy tissue and in the subcutaneous layer Percentage of wound debrided: 100 Instrument Used: 5mm curette Tissue Removed: Devitalized subcutaneous, biofilm, slough Severity: Fat Layer Exposed Amount of bleeding with debridement: Mild Bleeding Controlled with: Pressure and Compression and gauze Patient tolerated procedure: Patient tolerated procedure well Post-Debridement Measurements and Additional Note: Post-Debridement Measurements/Treatment - Nurse 1 - General Ulcer Assessment Start: 12/13/22 08:32 Freq: Status: Active Protocol: NELL Activity Type Activity Date Activity User E-sign Co-sign Detail Recorded Client Recorded Date Recorded By Document 12/13/22 08:32 PL [id number] 12/13/22 08:47 12/13/22 08:32 WC - Today's Visit Information Type of service Follow-up Visit (Physician/DATA CONTROL CLERK ) Arrival Mode Walker Transfer Assistance None Patient Identification Verified (Name & Yes ) Patient Requires Transmission-Based No Precautions Finger Stick Blood Sugar(mg/dl) (if 174 indicated): Blood Sugar Stated by Patient Height and Weight Body Mass Index (BMI) 46.5 BMI Classification Obese Vital Signs Temperature (97.8 F-99.1 F) 97.6 F L Temperature Source Temporal Pulse Rate (60-100) 101 H Respiratory Rate (12-18) 20 H Blood Pressure (90/60-120/80) 139/84 H Blood Pressure Mean (mm Hg) 102 History Since Last Visit- (Skip if this is Patient's initial visit) Have you changed medications since your No last visit? Any new allergies or adverse reactions No Had a fall/change in ADL's that may No increase risk of falls Signs or symptoms of abuse and/or No neglect since last visit Have you been in the hospital since your No last visit? Has dressing in place as prescribed Yes Has compression in place as prescribed Yes Has offloadiing in place as prescribed Yes Experienced any changes in pain level or No management Pain Scale: 0-10 Numeric Is Patient Pain Free? Yes - Nurse 1 - General Ulcer Measurement Start: 12/13/22 08:32 Freq: Status: Active Protocol: Activity Type Activity Date Activity User E-sign Co-sign Detail Recorded Client Recorded Date Recorded By Document 12/13/22 08:32 PL [id number] 12/13/22 08:47 PL 12/13/22 08:32 Wound Center Nurse 1 #1- R HEEL -Combined with other wound No -Current Size (cm) - Length 1.5 -Current Size (cm) - Width 1.5 -Current Size (cm) - Depth 0.2 -Total Square Cm 2.25 -Epithelialization Medium 34-66% -Tunneling No -Undermining/Tunneling No -Circular Undermining No -Exudate Amt Medium -Exudate Type Serosanguineous -Granulation Amt Medium (34-66%) -Granulation Quality [place] -Necrosis Amt None Present (0 %) -Necrotic Tissue Type Adherent Slough -Texture (Lianna-wound Skin Appearance) No Abnormality -Moisture (Lianna-wound Skin Appearance) No Abnormality -Color (Lianna-wound Skin Appearance) Assessed -Temperature (Lianna-wound Skin No Abnormality Appearance) (Pt Warm) -Ulcer Cleansing Soap and Water -Foul Odor after Cleansing No -Anesthetic Used 5% Lidocaine Gel WC - Nurse 2 - General Ulcer CM Notes Start: 12/13/22 08:32 Freq: Status: Active Protocol: Activity Type Activity Date Activity User E-sign Co-sign Detail Recorded Client Recorded Date Recorded By Document 12/13/22 09:29 [id number] 12/13/22 09:36 YASMINE 12/13/22 09:29 Wound Center Nurse 2 -Time 09:29 -Correct Patient Yes -Correct Side, Site, Position Yes -Correct Procedure Yes -Procedure Performed Yes -Type of Procedure Debridement -Clinical Debridement Subcutaneous -Tissue Removed Subcutaneous -Post Debridement (cm) - Length 3.5 -Post Debridement (cm) - Width 2.2 -Post Debridement (cm) - Depth 0.5 -Total Square (Post) (cm) 7.70 -Area of Debridement (cm) - Length 3.5 -Area of Debridement (cm) - Width 2.2 -Total Square (Area) (cm) 7.70 -Tunneling No -Undermining/Tunneling No -Circular Undermining No -Wound/Ulcer Outcome Not Healed -Ulcer Cleansing Rinsed/ Irrigated with Saline -Foul Odor after Cleansing No -Bioengineered Tissue Yes -Type of Bioengineered Tissue Epifix Mesh -Expiration Date 09/13/27 -Product Lot Number [id number] -Percent Used 100 -Lot number of Saline Used [id number] -Bleeding Controlled with Pressure -Treatment Response Procedure Tolerated Well -Offloading Yes -Type of Offloading Total Contact Cast (TCC) - Right ($) -Debridement - Subq, 1st 20sq cm No -Apply Skin Sub - 1st 25 sq cm - Feet 1 -Epifix Mesh (per sq cm) 11 Pain Scale: 0-10 Numeric Is Patient Pain Free? Yes - Nurse 3 - General Ulcer D/C NN Start: 12/13/22 08:32 Freq: Status: Active Protocol: Activity Type Activity Date Activity User E-sign Co-sign Detail Recorded Client Recorded Date Recorded By Document 12/13/22 10:26 PL [id number] 12/13/22 10:27 PL 12/13/22 10:26 Wound Care Center Nurse 3 #1- R HEEL -Other Dressing Abd Pain Scale: 0-10 Numeric Is Patient Pain Free? 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 layer exposed: CODE(S): L97.512 - Non-pressure chronic ulcer of other part of right foot with fat layer exposed (3) VRE (vancomycin-resistant Enterococci) infection: CODE(S): A49.1 - Streptococcal infection, unspecified site; Z16.21 - Resistance to vancomycin (4) History of total knee arthroplasty: CODE(S): Z96.659 - Presence of unspecified artificial knee joint (5) Diabetic polyneuropathy: CODE(S): E11.42 - Type 2 diabetes mellitus with diabetic polyneuropathy (6) Diabetes mellitus: CODE(S): E11.9 - Type 2 diabetes mellitus without complications (7) Lymphedema: CODE(S): I89.0 - Lymphedema, not elsewhere classified (8) Lower extremity edema: CODE(S): R60.0 - Localized edema PLAN: Plan Patient evaluated at the wound healing center. He was approved for Epicord/Epifix to this ulcer. He has shown improvement in his ulcer with off loading with TCC. Wound care - Epicord 7 applications, Epifix #1 (8 applications total) placed today.? 100% of the product was used. Placed wound veil over top and secured with skin prep and steri strips. Will top with Aquacel to absorb moisture and top with gauze. Offloading: He is amendable to have a total contact cast applied today and verbal consent was obtained.? This was applied according to standard protocol in a neutral position a well-padded manner.? He tolerated this well.? To keep clean, dry, and intact until follow-up visit. He was encouraged to only walk with a total contact cast while in the cast boot.? He was also instructed to not get the cast wet and to shower using cast bag.? He voices understanding of this. I discussed with him that he will not be able to visualize for signs and symptoms of infection while he is in a total contact cast.? I did discuss the signs and symptoms of infection today.? Informed him if he notices any redness moving up the leg, continued feeling of oozing, increasing odor, increasing pain, or if he experiences any fever greater than 101 degree, nausea, vomiting, or chills that he is to report straight to the ED for removal of the total contact cast for evaluation as these are signs of progressing infection.? He voices understanding of this today. A wound culture was obtained 08/30/22 which was positive for VRE, Kocuria kristinae, and Corynebacterium striatum completed Linezolid. Encouraged increase protein intake with low carbs to help with blood sugars and wound healing. He is on Doxycycline as suppressive treatment since he had his left knee replaced, this is prescribed by Orthopaedics. Follow up one week. Call or come in sooner if develop any concerns.
[2022-12-20 11:05] VITALS: BP 162/83; PULSE 89; RESP 20; TEMP 36.7; BMI 46.5
--- NOTE | 2022-12-20 12:41 | PCM.WC.PN ---
History of Present Illness Date of Service: 12/20/22 Chief Complaint: Right heel ulcer History of Wound: 66 year old male presents to the wound center for evaluation of his right heal ulcer. It started as a a pressure ulcer in February when he he was in TCU and it healed. It then became a blister right before his Left TKR surgery. He had his left knee replaced 07/14/22 at [facility]. 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 He also has a history of diabetes, HTN, lymphedema, hypercholesterolemia and PE that he is on Xerelto. He currently has home health. Wound culture obtained on 08/30/22 which are positive for VRE, Kocuria kristinae and Corynebacterium striatum. He will completed the Linezolid. Foot xray 09/27/22 - Osteopenia with diffuse osteoarthritic changes. Diffuse soft tissue swelling with ossification of the distal Achilles tendon. No acute abnormality or evidence of erosive changes. Wound care - He has been approved for Epicord and Epifix. He denies any fever, chills, nausea and vomiting. Progress of Wound: He has been tolerating the TCC. His ulcer has decreased depth this week and the ulcer is a nice beefy pink color, no areas of pressure this week. No callus surrounding the ulcer with him wearing the TCC. Will place Epifix today. Objective Data Objective Data Vital Signs: Vital Signs Temp Pulse Resp BP 98.1 F 89 20 H 162/83 H 12/20/22 11:05 12/20/22 11:05 12/20/22 11:05 12/20/22 11:05 Weight: 343 lb Body Mass Index (BMI) 46.5 Charges/Coding Procedures Integumentary 150xxx-152xx: 86642 Skin sub graft face/nk/hf/g Procedures Musculoskeletal 20xxx-29xxx: 97955 APPLY RIGID LEG CAST (total contact cast) Debridement Note Debridement Note Wound debrided: Right posterior lateral heel Laterality: Right Wound Grade/Stage: Gomez stage III Type of Debridement: Excisional debridement Anesthesia Used: 5% Lidocaine Gel Depth: Down to and including healthy tissue and in the subcutaneous layer Percentage of wound debrided: 100 Instrument Used: 5mm curette Tissue Removed: Devitalized subcutaneous, biofilm, slough Severity: Fat Layer Exposed Amount of bleeding with debridement: Mild Bleeding Controlled with: Pressure, Compression and gauze and Silver Nitrate (Silver nitrate used on one area that wound not stop oozing with pressure.) Patient tolerated procedure: Patient tolerated procedure well Post-Debridement Measurements and Additional Note: Post-Debridement Measurements/Treatment WC - Nurse 1 - General Ulcer Assessment Start: 12/13/22 08:32 Freq: Status: Active Protocol: NELL Activity Type Activity Date Activity User E-sign Co-sign Detail Recorded Client Recorded Date Recorded By Document 12/13/22 08:32 PL [id number] 12/13/22 08:47 PL Document 12/20/22 11:05 DL [id number] 12/20/22 11:15 DL 12/13/22 12/20/22 08:32 11:05 WC - Today's Visit Information Type of service Follow-up Visit Follow-up Visit (Physician/FIRE ASSISTANT (Physician/FIRE ASSISTANT ) ) Arrival Mode Walker Ambulatory, Walker Transfer Assistance None None Patient Identification Verified (Name & Yes Yes ) Patient Requires Transmission-Based No No Precautions Finger Stick Blood Sugar(mg/dl) (if 174 160 indicated): Blood Sugar Stated by Stated by Patient Patient Height and Weight Body Mass Index (BMI) 46.5 46.5 BMI Classification Obese Obese Vital Signs Temperature (97.8 F-99.1 F) 97.6 F L 98.1 F Temperature Source Temporal Temporal Pulse Rate (60-100) 101 H 89 Pulse Location Monitor Respiratory Rate (12-18) 20 H 20 H Respiratory rate source Observation Blood Pressure (90/60-120/80) 139/84 H 162/83 H Blood Pressure Mean (mm Hg) 102 109 Source Monitor History Since Last Visit- (Skip if this is Patient's initial visit) Have you changed medications since your No No last visit? Any new allergies or adverse reactions No No Had a fall/change in ADL's that may No No increase risk of falls Signs or symptoms of abuse and/or No No neglect since last visit Have you been in the hospital since your No No last visit? Has dressing in place as prescribed Yes No Has compression in place as prescribed Yes N/A Has offloadiing in place as prescribed Yes Yes Experienced any changes in pain level or No No management Right Footwear Total Contact Cast Pain Scale: 0-10 Numeric Is Patient Pain Free? Yes No WC - Nurse 1 - General Ulcer Measurement Start: 12/13/22 08:32 Freq: Status: Active Protocol: Activity Type Activity Date Activity User E-sign Co-sign Detail Recorded Client Recorded Date Recorded By Document 12/13/22 08:32 PL [id number] 12/13/22 08:47 PL Document 12/20/22 11:05 DL [id number] 12/20/22 11:15 DL 12/13/22 12/20/22 08:32 11:05 Wound Center Nurse 1 #1- R HEEL -Combined with other wound No -Current Size (cm) - Length 1.5 3.1 -Current Size (cm) - Width 1.5 1.8 -Current Size (cm) - Depth 0.2 0.2 -Total Square Cm 2.25 5.58 -Photo Taken No -Epithelialization Medium 34-66% -Tunneling No -Undermining/Tunneling No -Circular Undermining No -Exudate Amt Medium Medium -Exudate Type Serosanguineous Serosanguineous -Wound Margin Distinct, Outline Attached -Granulation Amt Medium (34-66%) Medium (34-66%) -Granulation Quality [place] -Necrosis Amt None Present (0 Medium (34-66%) %) -Necrotic Tissue Type Adherent Slough Adherent Slough -Structure Exposed N/A -Texture (Lianna-wound Skin Appearance) No Abnormality Scarring -Moisture (Lianna-wound Skin Appearance) No Abnormality No Abnormality -Color (Lianna-wound Skin Appearance) Assessed No Abnormality -Temperature (Lianna-wound Skin No Abnormality No Abnormality Appearance) (Pt Warm) (Pt Warm) -Tenderness on Palpation (Lianna-wound No Skin Appearance) -Ulcer Cleansing Soap and Water Soap and Water -Foul Odor after Cleansing No No -Anesthetic Used 5% Lidocaine 5% Lidocaine Gel Gel WC - Nurse 2 - General Ulcer CM Notes Start: 12/13/22 08:32 Freq: Status: Active Protocol: Activity Type Activity Date Activity User E-sign Co-sign Detail Recorded Client Recorded Date Recorded By Document 12/13/22 09:29 JF [id number] 12/13/22 09:36 JF Document 12/20/22 11:21 PL [id number] 12/20/22 11:37 PL Edit Result 12/20/22 11:21 PL (1) [id number] 12/20/22 11:44 PL (1) #1- R HEEL - Bleeding Controlled with Pressure => Pressure,Chemical => Cauterization ($) 12/13/22 12/20/22 09:29 11:21 Wound Center Nurse 2 #1- R HEEL -Time 09:29 11:25 -Correct Patient Yes Yes -Correct Side, Site, Position Yes Yes -Correct Procedure Yes Yes -Procedure Performed Yes Yes -Type of Procedure Debridement Debridement -Clinical Debridement Subcutaneous Subcutaneous -Tissue Removed Subcutaneous Subcutaneous -Post Debridement (cm) - Length 3.5 3.3 -Post Debridement (cm) - Width 2.2 2.8 -Post Debridement (cm) - Depth 0.5 0.2 -Total Square (Post) (cm) 7.70 9.24 -Area of Debridement (cm) - Length 3.5 3.3 -Area of Debridement (cm) - Width 2.2 2.8 -Total Square (Area) (cm) 7.70 9.24 -Tunneling No No -Undermining/Tunneling No No -Circular Undermining No No -Wound/Ulcer Outcome Not Healed Not Healed -Ulcer Cleansing Rinsed/ Rinsed/ Irrigated with Irrigated with Saline Saline -Foul Odor after Cleansing No No -Bioengineered Tissue Yes Yes -Type of Bioengineered Tissue Epifix Mesh Epifix Mesh -Expiration Date 09/13/27 09/13/27 -Product Lot Number [id number] -Percent Used 100 100 -Lot number of Saline Used [id number] -Bleeding Controlled with Pressure Pressure, Chemical Cauterization ( $) -Treatment Response Procedure Procedure Tolerated Well Tolerated Well -Offloading Yes -Type of Offloading Total Contact Cast (TCC) - Right ($) -Debridement - Subq, 1st 20sq cm No No -Apply Skin Sub - 1st 25 sq cm - Feet 1 1 -Epifix Mesh (per sq cm) 11 11 Pain Scale: 0-10 Numeric Is Patient Pain Free? Yes Yes WC - Nurse 3 - General Ulcer D/C NN Start: 12/13/22 08:32 Freq: Status: Active Protocol: Activity Type Activity Date Activity User E-sign Co-sign Detail Recorded Client Recorded Date Recorded By Document 12/13/22 10:26 PL [id number] 12/13/22 10:27 PL 12/13/22 10:26 Wound Care Center Nurse 3 #1- R HEEL -Other Dressing Abd Pain Scale: 0-10 Numeric Is Patient Pain Free? 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 layer exposed: CODE(S): L97.512 - Non-pressure chronic ulcer of other part of right foot with fat layer exposed (3) VRE (vancomycin-resistant Enterococci) infection: CODE(S): A49.1 - Streptococcal infection, unspecified site; Z16.21 - Resistance to vancomycin (4) History of total knee arthroplasty: CODE(S): Z96.659 - Presence of unspecified artificial knee joint (5) Diabetic polyneuropathy: CODE(S): E11.42 - Type 2 diabetes mellitus with diabetic polyneuropathy (6) Diabetes mellitus: CODE(S): E11.9 - Type 2 diabetes mellitus without complications (7) Lymphedema: CODE(S): I89.0 - Lymphedema, not elsewhere classified (8) Lower extremity edema: CODE(S): R60.0 - Localized edema PLAN: Plan Patient evaluated at the wound healing center. He was approved for Epicord/Epifix to this ulcer. He has shown improvement in his ulcer with off loading with TCC. He had one area on the edge of the ulcer that continued to ooze event with pressure being held for at least 8 minutes. Silver nitrate used. The area was then irrigated with 30 ml of saline before applying the Epifix into place. Wound care - Epicord 7 applications, Epifix #2 (9 applications total) placed today.? 100% of the product was used. Placed wound veil over top and secured with skin prep and steri strips. Will top with Aquacel to absorb moisture and top with gauze. Offloading: He is amendable to have a total contact cast applied today and verbal consent was obtained.? This was applied according to standard protocol in a neutral position a well-padded manner.? He tolerated this well.? To keep clean, dry, and intact until follow-up visit. He was encouraged to only walk with a total contact cast while in the cast boot.? He was also instructed to not get the cast wet and to shower using cast bag.? He voices understanding of this. I discussed with him that he will not be able to visualize for signs and symptoms of infection while he is in a total contact cast.? I did discuss the signs and symptoms of infection today.? Informed him if he notices any redness moving up the leg, continued feeling of oozing, increasing odor, increasing pain, or if he experiences any fever greater than 101 degree, nausea, vomiting, or chills that he is to report straight to the ED for removal of the total contact cast for evaluation as these are signs of progressing infection.? He voices understanding of this today. A wound culture was obtained 08/30/22 which was positive for VRE, Kocuria kristinae, and Corynebacterium striatum completed Linezolid. Encouraged increase protein intake with low carbs to help with blood sugars and wound healing. He is on Doxycycline as suppressive treatment since he had his left knee replaced, this is prescribed by Orthopaedics. Follow up one week. Call or come in sooner if develop any concerns.
[2022-12-27 10:48] VITALS: BP 193/94; PULSE 74; RESP 20; TEMP 36.8; BMI 46.5
--- NOTE | 2022-12-27 11:54 | PCM.WC.PN ---
History of Present Illness Date of Service: 12/27/22 Chief Complaint: Right heel ulcer History of Wound: 66 year old male presents to the wound center for evaluation of his right heal ulcer. It started as a a pressure ulcer in February when he he was in TCU and it healed. It then became a blister right before his Left TKR surgery. He had his left knee replaced 07/14/22 at [facility]. 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 He also has a history of diabetes, HTN, lymphedema, hypercholesterolemia and PE that he is on Xerelto. He currently has home health. Wound culture obtained on 08/30/22 which are positive for VRE, Kocuria kristinae and Corynebacterium striatum. He will completed the Linezolid. Foot xray 09/27/22 - Osteopenia with diffuse osteoarthritic changes. Diffuse soft tissue swelling with ossification of the distal Achilles tendon. No acute abnormality or evidence of erosive changes. Wound care - He has been approved for Epicord and Epifix. He denies any fever, chills, nausea and vomiting. Progress of Wound: He has been tolerating the TCC. His ulcer is smaller this week and is a nice beefy pink color, no areas of pressure this week. No callus surrounding the ulcer with him wearing the TCC. Will place Epifix today. Objective Data Objective Data Vital Signs: Vital Signs Temp Pulse Resp BP 98.3 F 74 20 H 193/94 H 12/27/22 10:48 12/27/22 10:48 12/27/22 10:48 12/27/22 10:48 Weight: 343 lb Body Mass Index (BMI) 46.5 Charges/Coding Procedures Integumentary 150xxx-152xx: 83877 Skin sub graft face/nk/hf/g Procedures Musculoskeletal 20xxx-29xxx: 15046 APPLY RIGID LEG CAST (total contact cast) Debridement Note Debridement Note Wound debrided: Right posterior lateral heel Laterality: Right Wound Grade/Stage: Gomez stage III Type of Debridement: Excisional debridement Anesthesia Used: 5% Lidocaine Gel Depth: Down to and including healthy tissue and in the subcutaneous layer Percentage of wound debrided: 100 Instrument Used: 5mm curette Tissue Removed: Devitalized subcutaneous, biofilm, slough Severity: Fat Layer Exposed Amount of bleeding with debridement: Mild Bleeding Controlled with: Pressure and Compression and gauze Patient tolerated procedure: Patient tolerated procedure well Post-Debridement Measurements and Additional Note: Post-Debridement Measurements/Treatment WC - Nurse 1 - General Ulcer Assessment Start: 12/13/22 08:32 Freq: Status: Active Protocol: NELL Activity Type Activity Date Activity User E-sign Co-sign Detail Recorded Client Recorded Date Recorded By Document 12/13/22 08:32 PL [id number] 12/13/22 08:47 PL Document 12/20/22 11:05 DL [id number] 12/20/22 11:15 DL Document 12/27/22 10:48 DL [id number] 12/27/22 11:05 DL 12/13/22 12/20/22 12/27/22 08:32 11:05 10:48 - Today's Visit Information Type of service Follow-up Visit Follow-up Visit Follow-up Visit (Physician/[employer] (Physician/[employer] (Physician/[employer] ) ) ) Arrival Mode Walker Ambulatory, Ambulatory, Walker Walker Transfer Assistance None None None Patient Identification Verified (Name & Yes Yes Yes ) Patient Requires Transmission-Based No No No Precautions Finger Stick Blood Sugar(mg/dl) (if 174 160 134 indicated): Blood Sugar Stated by Stated by Stated by Patient Patient Patient Height and Weight Body Mass Index (BMI) 46.5 46.5 46.5 BMI Classification Obese Obese Obese Vital Signs Temperature (97.8 F-99.1 F) 97.6 F L 98.1 F 98.3 F Temperature Source Temporal Temporal Temporal Pulse Rate (60-100) 101 H 89 74 Pulse Location Monitor Monitor Respiratory Rate (12-18) 20 H 20 H 20 H Respiratory rate source Observation Observation Blood Pressure (90/60-120/80) 139/84 H 162/83 H 193/94 H Blood Pressure Mean (mm Hg) 102 109 127 Source Monitor Monitor History Since Last Visit- (Skip if this is Patient's initial visit) Have you changed medications since your No No No last visit? Any new allergies or adverse reactions No No No Had a fall/change in ADL's that may No No No increase risk of falls Signs or symptoms of abuse and/or No No No neglect since last visit Have you been in the hospital since your No No No last visit? Has dressing in place as prescribed Yes No Yes Has compression in place as prescribed Yes N/A N/A Has offloadiing in place as prescribed Yes Yes Yes Experienced any changes in pain level or No No No management Right Footwear Total Contact Total Contact Cast Cast Pain Scale: 0-10 Numeric Is Patient Pain Free? Yes No Yes WC - Nurse 1 - General Ulcer Measurement Start: 12/13/22 08:32 Freq: Status: Active Protocol: Activity Type Activity Date Activity User E-sign Co-sign Detail Recorded Client Recorded Date Recorded By Document 12/13/22 08:32 PL [id number] 12/13/22 08:47 PL Document 12/20/22 11:05 DL [id number] 12/20/22 11:15 DL Document 12/27/22 10:48 DL [id number] 12/27/22 11:05 DL 12/13/22 12/20/22 12/27/22 08:32 11:05 10:48 Wound Center Nurse 1 #1- R HEEL -Combined with other wound No -Current Size (cm) - Length 1.5 3.1 3 -Current Size (cm) - Width 1.5 1.8 1.6 -Current Size (cm) - Depth 0.2 0.2 0.2 -Total Square Cm 2.25 5.58 4.8 -Photo Taken No Yes -Epithelialization Medium 34-66% -Tunneling No -Undermining/Tunneling No -Circular Undermining No -Exudate Amt Medium Medium Medium -Exudate Type Serosanguineous Serosanguineous Serosanguineous -Wound Margin Distinct, Distinct, Outline Outline Attached Attached -Granulation Amt Medium (34-66%) Medium (34-66%) Medium (34-66%) -Granulation Quality [place] Red Red -Necrosis Amt None Present (0 Medium (34-66%) Medium (34-66%) %) -Necrotic Tissue Type Adherent Slough Adherent Slough Adherent Slough -Structure Exposed N/A N/A -Texture (Lianna-wound Skin Appearance) No Abnormality Scarring Scarring -Moisture (Lianna-wound Skin Appearance) No Abnormality No Abnormality Dry/Scaly -Color (Lianna-wound Skin Appearance) Assessed No Abnormality Hemosiderin Staining -Temperature (Lianna-wound Skin No Abnormality No Abnormality No Abnormality Appearance) (Pt Warm) (Pt Warm) (Pt Warm) -Tenderness on Palpation ([place]ian[place]-wound No No Skin Appearance) -Ulcer Cleansing Soap and Water Soap and Water Soap and Water -Foul Odor after Cleansing No No No -Anesthetic Used 5% Lidocaine 5% Lidocaine 5% Lidocaine Gel Gel Gel Right Calf (cm) 48.5 Right Ankle (cm) 28.6 WC - Nurse 2 - General Ulcer CM Notes Start: 12/13/22 08:32 Freq: Status: Active Protocol: Activity Type Activity Date Activity User E-sign Co-sign Detail Recorded Client Recorded Date Recorded By Document 12/13/22 09:29 JF [id number] 12/13/22 09:36 JF Document 12/20/22 11:21 PL [id number] 12/20/22 11:37 PL Edit Result 12/20/22 11:21 PL (1) [id number] 12/20/22 11:44 PL Edit Result 12/20/22 11:21 PL (2) [id number] 12/21/22 06:56 PL Document 12/27/22 11:21 JF [id number] 12/27/22 11:22 JF Edit Result 12/27/22 11:21 JF (3) [id number] 12/27/22 11:23 JF Edit Result 12/27/22 11:21 JF (4) [id number] 12/27/22 11:24 JF (1) #1- R HEEL - Bleeding Controlled with Pressure => Pressure,Chemical => Cauterization ($) (2) #1- R HEEL - Type of Offloading => Total Contact Cast => (TCC) - Right ($) (3) #1- R HEEL - Apply Skin Sub - 1st 25 sq cm - Legs => 1 - Apply Skin Sub - 1st 25 sq cm - Feet 1 => (4) #1- R HEEL - Apply Skin Sub - 1st 25 sq cm - Legs 1 => - Apply Skin Sub - 1st 25 sq cm - Feet 1 => 1 12/13/22 12/20/22 12/27/22 09:29 11:21 11:21 Wound Center Nurse 2 #1- R HEEL -Time 09: 11:25 11:21 -Correct Patient Yes Yes Yes -Correct Side, Site, Position Yes Yes Yes -Correct Procedure Yes Yes Yes -Procedure Performed Yes Yes Yes -Type of Procedure Debridement Debridement Debridement -Clinical Debridement Subcutaneous Subcutaneous Subcutaneous -Tissue Removed Subcutaneous Subcutaneous Subcutaneous -Post Debridement (cm) - Length 3.5 3.3 3.0 -Post Debridement (cm) - Width 2.2 2.8 1.8 -Post Debridement (cm) - Depth 0.5 0.2 0.3 -Total Square (Post) (cm) 7.70 9.24 5.40 -Area of Debridement (cm) - Length 3.5 3.3 3.0 -Area of Debridement (cm) - Width 2.2 2.8 1.8 -Total Square (Area) (cm) 7.70 9.24 5.40 -Tunneling No No No -Undermining/Tunneling No No No -Circular Undermining No No No -Wound/Ulcer Outcome Not Healed Not Healed Not Healed -Ulcer Cleansing Rinsed/ Rinsed/ Rinsed/ Irrigated with Irrigated with Irrigated with Saline Saline Saline -Foul Odor after Cleansing No No No -Bioengineered Tissue Yes Yes Yes -Type of Bioengineered Tissue Epifix Mesh Epifix Mesh Epifix Mesh -Expiration Date 09/13/27 09/13/27 09/13/27 -Product Lot Number [id number] -Percent Used 100 100 100 -Lot number of Saline Used [id number] -Bleeding Controlled with Pressure Pressure, Pressure Chemical Cauterization ( $) -Treatment Response Procedure Procedure Procedure Tolerated Well Tolerated Well Tolerated Well -Offloading Yes No -Type of Offloading Total Contact Total Contact Total Contact Cast (TCC) - Cast (TCC) - Cast (TCC) - Right ($) Right ($) Right ($) -Debridement - Subq, 1st 20sq cm No No No -Apply Skin Sub - 1st 25 sq cm - Feet 1 1 1 -Epifix Mesh (per sq cm) 11 11 11 Pain Scale: 0-10 Numeric Is Patient Pain Free? Yes Yes Yes WC - Nurse 3 - General Ulcer D/C NN Start: 12/13/22 08:32 Freq: Status: Active Protocol: Activity Type Activity Date Activity User E-sign Co-sign Detail Recorded Client Recorded Date Recorded By Document 12/13/22 10:26 MARCE [id number] 12/13/22 10:27 PL 12/13/22 10:26 Wound Care Center Nurse 3 #1- R HEEL -Other Dressing Abd Pain Scale: 0-10 Numeric Is Patient Pain Free? 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 layer exposed: CODE(S): L97.512 - Non-pressure chronic ulcer of other part of right foot with fat layer exposed (3) VRE (vancomycin-resistant Enterococci) infection: CODE(S): A49.1 - Streptococcal infection, unspecified site; Z16.21 - Resistance to vancomycin (4) History of total knee arthroplasty: CODE(S): Z96.659 - Presence of unspecified artificial knee joint (5) Diabetic polyneuropathy: CODE(S): E11.42 - Type 2 diabetes mellitus with diabetic polyneuropathy (6) Diabetes mellitus: CODE(S): E11.9 - Type 2 diabetes mellitus without complications (7) Lymphedema: CODE(S): I89.0 - Lymphedema, not elsewhere classified (8) Lower extremity edema: CODE(S): R60.0 - Localized edema PLAN: Plan Patient evaluated at the wound healing center. He was approved for Epicord/Epifix to this ulcer. He has shown improvement in his ulcer with off loading with TCC. He had one area on the edge of the ulcer that continued to ooze event with pressure being held for at least 8 minutes. Silver nitrate used. The area was then irrigated with 30 ml of saline before applying the Epifix into place. Wound care - Epicord 7 applications, Epifix #3 (10 applications total) placed today.? 100% of the product was used. Placed wound veil over top and secured with skin prep and steri strips. Will top with Aquacel to absorb moisture and top with gauze. Offloading: He is amendable to have a total contact cast applied today and verbal consent was obtained.? This was applied according to standard protocol in a neutral position a well-padded manner.? He tolerated this well.? To keep clean, dry, and intact until follow-up visit. He was encouraged to only walk with a total contact cast while in the cast boot.? He was also instructed to not get the cast wet and to shower using cast bag.? He voices understanding of this. I discussed with him that he will not be able to visualize for signs and symptoms of infection while he is in a total contact cast.? I did discuss the signs and symptoms of infection today.? Informed him if he notices any redness moving up the leg, continued feeling of oozing, increasing odor, increasing pain, or if he experiences any fever greater than 101 degree, nausea, vomiting, or chills that he is to report straight to the ED for removal of the total contact cast for evaluation as these are signs of progressing infection.? He voices understanding of this today. A wound culture was obtained 08/30/22 which was positive for VRE, Kocuria kristinae, and Corynebacterium striatum completed Linezolid. Encouraged increase protein intake with low carbs to help with blood sugars and wound healing. He is on Doxycycline as suppressive treatment since he had his left knee replaced, this is prescribed by Orthopaedics. Follow up one week. Call or come in sooner if develop any concerns.
[2023-01-03 10:04] VITALS: BP 162/86; PULSE 84; RESP 18; TEMP 36.4; BMI 46.5
--- NOTE | 2023-01-03 11:10 | PCM.WC.PN ---
History of Present Illness Date of Service: 01/03/23 Chief Complaint: Right heel ulcer History of Wound: 66 year old male presents to the wound center for evaluation of his right heal ulcer. It started as a a pressure ulcer in February when he he was in TCU and it healed. It then became a blister right before his Left TKR surgery. He had his left knee replaced 07/14/22 at [facility]. 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 He also has a history of diabetes, HTN, lymphedema, hypercholesterolemia and PE that he is on Xerelto. He currently has home health. Wound culture obtained on 08/30/22 which are positive for VRE, Kocuria kristinae and Corynebacterium striatum. He will completed the Linezolid. Foot xray 09/27/22 - Osteopenia with diffuse osteoarthritic changes. Diffuse soft tissue swelling with ossification of the distal Achilles tendon. No acute abnormality or evidence of erosive changes. Wound care - He has been approved for Epicord and Epifix and has received 10 applications total. Aquacel-Ag covered by gauze and TCC to off load. He denies any fever, chills, nausea and vomiting. Progress of Wound: He has been tolerating the TCC. His ulcer is smaller this week and is a nice beefy pink color, no areas of pressure this week. No callus surrounding the ulcer with him wearing the TCC. Objective Data Objective Data Vital Signs: Vital Signs Temp Pulse Resp BP 97.5 F L 84 18 162/86 H 01/03/23 10:04 01/03/23 10:04 01/03/23 10:04 01/03/23 10:04 Weight: 343 lb Body Mass Index (BMI) 46.5 Charges/Coding Procedures Integumentary 111xxx-113xx: 39450 [place] subq tissue 20 sq cm/< Procedures Musculoskeletal 20xxx-29xxx: 51051 APPLY RIGID LEG CAST (total contact cast) Debridement Note Debridement Note Wound debrided: Right posterior lateral heel Laterality: Right Wound Grade/Stage: Gomez stage III Type of Debridement: Excisional debridement Anesthesia Used: 5% Lidocaine Gel Depth: Down to and including healthy tissue and in the subcutaneous layer Percentage of wound debrided: 100 Instrument Used: 5mm curette Tissue Removed: Devitalized subcutaneous, biofilm, slough Severity: Fat Layer Exposed Amount of bleeding with debridement: Mild Bleeding Controlled with: Pressure and Compression and gauze Patient tolerated procedure: Patient tolerated procedure well Post-Debridement Measurements and Additional Note: Post-Debridement Measurements/Treatment - Nurse 1 - General Ulcer Assessment Start: 12/13/22 08:32 Freq: Status: Active Protocol: LAM.LOWEXLaura Activity Type Activity Date Activity User E-sign Co-sign Detail Recorded Client Recorded Date Recorded By Document 12/13/22 08:32 PL [id number] 12/13/22 08:47 PL Document 12/20/22 11:05 DL [id number] 12/20/22 11:15 DL Document 12/27/22 10:48 DL [id number] 12/27/22 11:05 DL Document 01/03/23 10:04 DL [id number] 01/03/23 10:13 DL 12/13/22 12/20/22 12/27/22 08:32 11:05 10:48 - Today's Visit Information Type of service Follow-up Visit Follow-up Visit Follow-up Visit (Physician/PATCHING MACHINE OPERATOR (Physician/PATCHING MACHINE OPERATOR (Physician/PATCHING MACHINE OPERATOR ) ) ) Arrival Mode Walker Ambulatory, Ambulatory, Walker Walker Transfer Assistance None None None Patient Identification Verified (Name & Yes Yes Yes ) Patient Requires Transmission-Based No No No Precautions Finger Stick Blood Sugar(mg/dl) (if 174 160 134 indicated): Blood Sugar Stated by Stated by Stated by Patient Patient Patient Height and Weight Body Mass Index (BMI) 46.5 46.5 46.5 BMI Classification Obese Obese Obese Vital Signs Temperature (97.8 F-99.1 F) 97.6 F L 98.1 F 98.3 F Temperature Source Temporal Temporal Temporal Pulse Rate (60-100) 101 H 89 74 Pulse Location Monitor Monitor Respiratory Rate (12-18) 20 H 20 H 20 H Respiratory rate source Observation Observation Blood Pressure (90/60-120/80) 139/84 H 162/83 H 193/94 H Blood Pressure Mean (mm Hg) 102 109 127 Source Monitor Monitor History Since Last Visit- (Skip if this is Patient's initial visit) Have you changed medications since your No No No last visit? Any new allergies or adverse reactions No No No Had a fall/change in ADL's that may No No No increase risk of falls Signs or symptoms of abuse and/or No No No neglect since last visit Have you been in the hospital since your No No No last visit? Has dressing in place as prescribed Yes No Yes Has compression in place as prescribed Yes N/A N/A Has offloadiing in place as prescribed Yes Yes Yes Experienced any changes in pain level or No No No management Right Footwear Total Contact Total Contact Cast Cast Pain Scale: 0-10 Numeric Is Patient Pain Free? Yes No Yes 01/03/23 10:04 WC - Today's Visit Information Type of service Follow-up Visit (Physician/PATCHING MACHINE OPERATOR ) Arrival Mode Ambulatory, Walker Transfer Assistance None Patient Identification Verified (Name & Yes ) Patient Requires Transmission-Based No Precautions Finger Stick Blood Sugar(mg/dl) (if 170 indicated): Blood Sugar Stated by Patient Height and Weight Body Mass Index (BMI) 46.5 BMI Classification Obese Vital Signs Temperature (97.8 F-99.1 F) 97.5 F L Temperature Source Temporal Pulse Rate (60-100) 84 Pulse Location Monitor Respiratory Rate (12-18) 18 Respiratory rate source Observation Blood Pressure (90/60-120/80) 162/86 H Blood Pressure Mean (mm Hg) 111 Source Monitor History Since Last Visit- (Skip if this is Patient's initial visit) Have you changed medications since your No last visit? Any new allergies or adverse reactions No Had a fall/change in ADL's that may No increase risk of falls Signs or symptoms of abuse and/or No neglect since last visit Have you been in the hospital since your No last visit? Has dressing in place as prescribed Yes Has compression in place as prescribed N/A Has offloadiing in place as prescribed Yes Experienced any changes in pain level or No management Right Footwear Total Contact Cast Pain Scale: 0-10 Numeric Is Patient Pain Free? Yes - Nurse 1 - General Ulcer Measurement Start: 12/13/22 08:32 Freq: Status: Active Protocol: Activity Type Activity Date Activity User E-sign Co-sign Detail Recorded Client Recorded Date Recorded By Document 12/13/22 08:32 PL [id number] 12/13/22 08:47 PL Document 12/20/22 11:05 DL [id number] 12/20/22 11:15 DL Document 12/27/22 10:48 DL [id number] 12/27/22 11:05 DL Document 01/03/23 10:04 DL [id number] 01/03/23 10:13 DL 12/13/22 12/20/22 12/27/22 08:32 11:05 10:48 Wound Center Nurse 1 #1- R HEEL -Combined with other wound No -Current Size (cm) - Length 1.5 3.1 3 -Current Size (cm) - Width 1.5 1.8 1.6 -Current Size (cm) - Depth 0.2 0.2 0.2 -Total Square Cm 2.25 5.58 4.8 -Photo Taken No Yes -Epithelialization Medium 34-66% -Tunneling No -Undermining/Tunneling No -Circular Undermining No -Exudate Amt Medium Medium Medium -Exudate Type Serosanguineous Serosanguineous Serosanguineous -Wound Margin Distinct, Distinct, Outline Outline Attached Attached -Granulation Amt Medium (34-66%) Medium (34-66%) Medium (34-66%) -Granulation Quality [place] Red Red -Necrosis Amt None Present (0 Medium (34-66%) Medium (34-66%) %) -Necrotic Tissue Type Adherent Slough Adherent Slough Adherent Slough -Structure Exposed N/A N/A -Texture (Lianna-wound Skin Appearance) No Abnormality Scarring Scarring -Moisture (Lianna-wound Skin Appearance) No Abnormality No Abnormality Dry/Scaly -Color (Lianna-wound Skin Appearance) Assessed No Abnormality Hemosiderin Staining -Temperature (Lianna-wound Skin No Abnormality No Abnormality No Abnormality Appearance) (Pt Warm) (Pt Warm) (Pt Warm) -Tenderness on Palpation (Lianna-wound No No Skin Appearance) -Ulcer Cleansing Soap and Water Soap and Water Soap and Water -Foul Odor after Cleansing No No No -Anesthetic Used 5% Lidocaine 5% Lidocaine 5% Lidocaine Gel Gel Gel Right Calf (cm) 48.5 Right Ankle (cm) 28.6 01/03/23 10:04 Wound Center Nurse 1 #1- R HEEL -Combined with other wound -Current Size (cm) - Length 2.6 -Current Size (cm) - Width 1.4 -Current Size (cm) - Depth 0.2 -Total Square Cm 3.64 -Photo Taken Yes -Epithelialization -Tunneling -Undermining/Tunneling -Circular Undermining -Exudate Amt Medium -Exudate Type Serosanguineous -Wound Margin Distinct, Outline Attached -Granulation Amt Medium (34-66%) -Granulation Quality Red -Necrosis Amt Medium (34-66%) -Necrotic Tissue Type Adherent Slough -Structure Exposed N/A -Texture (Lianna-wound Skin Appearance) Scarring -Moisture (Lianna-wound Skin Appearance) Maceration -Color (Lianna-wound Skin Appearance) No Abnormality -Temperature (Lianna-wound Skin No Abnormality Appearance) (Pt Warm) -Tenderness on Palpation (Lianna-wound No Skin Appearance) -Ulcer Cleansing Soap and Water -Foul Odor after Cleansing No -Anesthetic Used 5% Lidocaine Gel Right Calf (cm) Right Ankle (cm) WC - Nurse 2 - General Ulcer CM Notes Start: 12/13/22 08:32 Freq: Status: Active Protocol: Activity Type Activity Date Activity User E-sign Co-sign Detail Recorded Client Recorded Date Recorded By Document 12/13/22 09:29 [id number] 12/13/22 09:36 JF Document 12/20/22 11:21 PL [id number] 12/20/22 11:37 PL Edit Result 12/20/22 11:21 PL (1) [id number] 12/20/22 11:44 PL Edit Result 12/20/22 11:21 PL (2) [id number] 12/21/22 06:56 PL Document 12/27/22 11:21 [id number] 12/27/22 11:22 JF Edit Result 12/27/22 11:21 JF (3) [id number] 12/27/22 11:23 JF Edit Result 12/27/22 11:21 JF (4) [id number] 12/27/22 11:24 JF Document 01/03/23 10:27 JF [id number] 01/03/23 10:34 JF (1) #1- R HEEL - Bleeding Controlled with Pressure => Pressure,Chemical => Cauterization ($) (2) #1- R HEEL - Type of Offloading => Total Contact Cast => (TCC) - Right ($) (3) #1- R HEEL - Apply Skin Sub - 1st 25 sq cm - Legs => 1 - Apply Skin Sub - 1st 25 sq cm - Feet 1 => (4) #1- R HEEL - Apply Skin Sub - 1st 25 sq cm - Legs 1 => - Apply Skin Sub - 1st 25 sq cm - Feet 1 => 1 12/13/22 12/20/22 12/27/22 09:29 11:21 11:21 Wound Center Nurse 2 #1- R HEEL -Time 09: 11:25 11:21 -Correct Patient Yes Yes Yes -Correct Side, Site, Position Yes Yes Yes -Correct Procedure Yes Yes Yes -Procedure Performed Yes Yes Yes -Type of Procedure Debridement Debridement Debridement -Clinical Debridement Subcutaneous Subcutaneous Subcutaneous -Tissue Removed Subcutaneous Subcutaneous Subcutaneous -Post Debridement (cm) - Length 3.5 3.3 3.0 -Post Debridement (cm) - Width 2.2 2.8 1.8 -Post Debridement (cm) - Depth 0.5 0.2 0.3 -Total Square (Post) (cm) 7.70 9.24 5.40 -Area of Debridement (cm) - Length 3.5 3.3 3.0 -Area of Debridement (cm) - Width 2.2 2.8 1.8 -Total Square (Area) (cm) 7.70 9.24 5.40 -Tunneling No No No -Undermining/Tunneling No No No -Circular Undermining No No No -Wound/Ulcer Outcome Not Healed Not Healed Not Healed -Ulcer Cleansing Rinsed/ Rinsed/ Rinsed/ Irrigated with Irrigated with Irrigated with Saline Saline Saline -Foul Odor after Cleansing No No No -Bioengineered Tissue Yes Yes Yes -Type of Bioengineered Tissue Epifix Mesh Epifix Mesh Epifix Mesh -Expiration Date 09/13/27 09/13/27 09/13/27 -Product Lot Number [id number] -Percent Used 100 100 100 -Lot number of Saline Used [id number] -Bleeding Controlled with Pressure Pressure, Pressure Chemical Cauterization ( $) -Treatment Response Procedure Procedure Procedure Tolerated Well Tolerated Well Tolerated Well -Offloading Yes No -Type of Offloading Total Contact Total Contact Total Contact Cast (TCC) - Cast (TCC) - Cast (TCC) - Right ($) Right ($) Right ($) -Debridement - Subq, 1st 20sq cm No No No -Apply Skin Sub - 1st 25 sq cm - Feet 1 1 1 -Epifix Mesh (per sq cm) 11 11 11 Pain Scale: 0-10 Numeric Is Patient Pain Free? Yes Yes Yes 01/03/23 10:27 Wound Center Nurse 2 #1- R HEEL -Time 10:27 -Correct Patient Yes -Correct Side, Site, Position Yes -Correct Procedure Yes -Procedure Performed Yes -Type of Procedure Debridement -Clinical Debridement Subcutaneous -Tissue Removed Subcutaneous -Post Debridement (cm) - Length 2.8 -Post Debridement (cm) - Width 1.6 -Post Debridement (cm) - Depth 0.2 -Total Square (Post) (cm) 4.48 -Area of Debridement (cm) - Length 2.8 -Area of Debridement (cm) - Width 1.6 -Total Square (Area) (cm) 4.48 -Tunneling No -Undermining/Tunneling No -Circular Undermining No -Wound/Ulcer Outcome Not Healed -Ulcer Cleansing Rinsed/ Irrigated with Saline -Foul Odor after Cleansing No -Bioengineered Tissue No -Type of Bioengineered Tissue -Expiration Date -Product Lot Number -Percent Used -Lot number of Saline Used -Bleeding Controlled with Pressure -Treatment Response Procedure Tolerated Well -Offloading Yes -Type of Offloading Total Contact Cast (TCC) - Right ($) -Debridement - Subq, 1st 20sq cm Yes -Apply Skin Sub - 1st 25 sq cm - Feet -Epifix Mesh (per sq cm) Pain Scale: 0-10 Numeric Is Patient Pain Free? Yes - Nurse 3 - General Ulcer D/C NN Start: 12/13/22 08:32 Freq: Status: Active Protocol: Activity Type Activity Date Activity User E-sign Co-sign Detail Recorded Client Recorded Date Recorded By Document 12/13/22 10:26 MARCE [id number] 12/13/22 10:27 MARCE 12/13/22 10:26 Wound Care Center Nurse 3 #1- R HEEL -Other Dressing Abd Pain Scale: 0-10 Numeric Is Patient Pain Free? Yes - Visit Discharge Discharge Condition Stable Ambulatory Status Walker Transportation Private Auto Assessment/Plan Assessment/Plan (1) Pressure ulcer of right heel, stage 3: CODE(S): L89.613 - Pressure ulcer of right heel, stage 3 (2) Non-healing ulcer of right foot with fat layer exposed: CODE(S): L97.512 - Non-pressure chronic ulcer of other part of right foot with fat layer exposed (3) VRE (vancomycin-resistant Enterococci) infection: CODE(S): A49.1 - Streptococcal infection, unspecified site; Z16.21 - Resistance to vancomycin (4) History of total knee arthroplasty: CODE(S): Z96.659 - Presence of unspecified artificial knee joint (5) Diabetic polyneuropathy: CODE(S): E11.42 - Type 2 diabetes mellitus with diabetic polyneuropathy (6) Diabetes mellitus: CODE(S): E11.9 - Type 2 diabetes mellitus without complications (7) Lymphedema: CODE(S): I89.0 - Lymphedema, not elsewhere classified (8) Lower extremity edema: CODE(S): R60.0 - Localized edema PLAN: Plan Patient evaluated at the wound healing center. He was approved for Epicord/Epifix to this ulcer. He has received 10 application total (Epicord 7 applications, Epifix #3) He has shown improvement in his ulcer with off loading with TCC. Wound care - Aquacel-Ag covered with super absorber/gauze. Offloading: He is amendable to have a total contact cast applied today and verbal consent was obtained.? This was applied according to standard protocol in a neutral position a well-padded manner.? He tolerated this well.? To keep clean, dry, and intact until follow-up visit. He was encouraged to only walk with a total contact cast while in the cast boot.? He was also instructed to not get the cast wet and to shower using cast bag.? He voices understanding of this. I discussed with him that he will not be able to visualize for signs and symptoms of infection while he is in a total contact cast.? I did discuss the signs and symptoms of infection today.? Informed him if he notices any redness moving up the leg, continued feeling of oozing, increasing odor, increasing pain, or if he experiences any fever greater than 101 degree, nausea, vomiting, or chills that he is to report straight to the ED for removal of the total contact cast for evaluation as these are signs of progressing infection.? He voices understanding of this today. A wound culture was obtained 08/30/22 which was positive for VRE, Kocuria kristinae, and Corynebacterium striatum completed Linezolid. Encouraged increase protein intake with low carbs to help with blood sugars and wound healing. He is on Doxycycline as suppressive treatment since he had his left knee replaced, this is prescribed by Orthopaedics. Follow up one week. Call or come in sooner if develop any concerns.
[2023-01-10 10:21] VITALS: BP 194/87; PULSE 85; RESP 22; TEMP 36.6; BMI 46.5
--- NOTE | 2023-01-10 12:34 | PCM.WC.PN ---
History of Present Illness Date of Service: 01/10/23 Chief Complaint: Right heel ulcer History of Wound: 66 year old male presents to the wound center for evaluation of his right heal ulcer. It started as a a pressure ulcer in February when he he was in TCU and it healed. It then became a blister right before his Left TKR surgery. He had his left knee replaced 07/14/22 at [facility]. 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 He also has a history of diabetes, HTN, lymphedema, hypercholesterolemia and PE that he is on Xerelto. He currently has home health. Wound culture obtained on 08/30/22 which are positive for VRE, Kocuria kristinae and Corynebacterium striatum. He will completed the Linezolid. Foot xray 09/27/22 - Osteopenia with diffuse osteoarthritic changes. Diffuse soft tissue swelling with ossification of the distal Achilles tendon. No acute abnormality or evidence of erosive changes. Wound care - He has been approved for Epicord and Epifix and has received 10 applications total. Aquacel-Ag covered by gauze and TCC to off load. He denies any fever, chills, nausea and vomiting. Progress of Wound: He has been tolerating the TCC. His ulcer is smaller this week and is a nice beefy pink color, no areas of pressure this week. No callus surrounding the ulcer with him wearing the TCC. Objective Data Objective Data Vital Signs: Vital Signs Temp Pulse Resp BP 98 F 85 22 H 194/87 H 01/10/23 10:21 01/10/23 10:21 01/10/23 10:21 01/10/23 10:21 Weight: 343 lb Body Mass Index (BMI) 46.5 Charges/Coding Procedures Integumentary 111xxx-113xx: [id number] [place] subq tissue 20 sq cm/< Procedures Musculoskeletal 20xxx-29xxx: [id number] APPLY RIGID LEG CAST (total contact cast) Debridement Note Debridement Note Wound debrided: Right posterior lateral heel Laterality: Right Wound Grade/Stage: Gomez stage III Type of Debridement: Excisional debridement Anesthesia Used: 5% Lidocaine Gel Depth: Down to and including healthy tissue and in the subcutaneous layer Percentage of wound debrided: 100 Instrument Used: 5mm curette Tissue Removed: Devitalized subcutaneous, biofilm, slough Severity: Fat Layer Exposed Amount of bleeding with debridement: Mild Bleeding Controlled with: Pressure, Compression and gauze and Silver Nitrate Patient tolerated procedure: Patient tolerated procedure well Post-Debridement Measurements and Additional Note: Post-Debridement Measurements/Treatment - Nurse 1 - General Ulcer Assessment Start: 12/13/22 08:32 Freq: Status: Active Protocol: LAM.LOWEXLaura Activity Type Activity Date Activity User E-sign Co-sign Detail Recorded Client Recorded Date Recorded By Document 12/13/22 08:32 PL [id number] 12/13/22 08:47 PL Document 12/20/22 11:05 DL [id number] 12/20/22 11:15 DL Document 12/27/22 10:48 DL [id number] 12/27/22 11:05 DL Document 01/03/23 10:04 DL [id number] 01/03/23 10:13 DL Document 01/10/23 10:21 DL [id number] 01/10/23 10:34 DL 12/13/22 12/20/22 12/27/22 08:32 11:05 10:48 - Today's Visit Information Type of service Follow-up Visit Follow-up Visit Follow-up Visit (Physician/MAINTENANCE SCHEDULER (Physician/MAINTENANCE SCHEDULER (Physician/MAINTENANCE SCHEDULER ) ) ) Arrival Mode Walker Ambulatory, Ambulatory, Walker Walker Transfer Assistance None None None Patient Identification Verified (Name & Yes Yes Yes ) Patient Requires Transmission-Based No No No Precautions Finger Stick Blood Sugar(mg/dl) (if 174 160 134 indicated): Blood Sugar Stated by Stated by Stated by Patient Patient Patient Height and Weight Body Mass Index (BMI) 46.5 46.5 46.5 BMI Classification Obese Obese Obese Vital Signs Temperature (97.8 F-99.1 F) 97.6 F L 98.1 F 98.3 F Temperature Source Temporal Temporal Temporal Pulse Rate (60-100) 101 H 89 74 Pulse Location Monitor Monitor Respiratory Rate (12-18) 20 H 20 H 20 H Respiratory rate source Observation Observation Blood Pressure (90/60-120/80) 139/84 H 162/83 H 193/94 H Blood Pressure Mean (mm Hg) 102 109 127 Source Monitor Monitor History Since Last Visit- (Skip if this is Patient's initial visit) Have you changed medications since your No No No last visit? Any new allergies or adverse reactions No No No Had a fall/change in ADL's that may No No No increase risk of falls Signs or symptoms of abuse and/or No No No neglect since last visit Have you been in the hospital since your No No No last visit? Has dressing in place as prescribed Yes No Yes Has compression in place as prescribed Yes N/A N/A Has offloadiing in place as prescribed Yes Yes Yes Experienced any changes in pain level or No No No management Right Footwear Total Contact Total Contact Cast Cast Pain Scale: 0-10 Numeric Is Patient Pain Free? Yes No Yes 01/03/23 01/10/23 10:04 10:21 WC - Today's Visit Information Type of service Follow-up Visit Follow-up Visit (Physician/MAINTENANCE SCHEDULER (Physician/MAINTENANCE SCHEDULER ) ) Arrival Mode Ambulatory, Ambulatory, Walker Walker Transfer Assistance None None Patient Identification Verified (Name & Yes Yes ) Patient Requires Transmission-Based No No Precautions Finger Stick Blood Sugar(mg/dl) (if 170 157 indicated): Blood Sugar Stated by Stated by Patient Patient Height and Weight Body Mass Index (BMI) 46.5 46.5 BMI Classification Obese Obese Vital Signs Temperature (97.8 F-99.1 F) 97.5 F L 98 F Temperature Source Temporal Temporal Pulse Rate (60-100) 84 85 Pulse Location Monitor Monitor Respiratory Rate (12-18) 18 22 H Respiratory rate source Observation Observation Blood Pressure (90/60-120/80) 162/86 H 194/87 H Blood Pressure Mean (mm Hg) 111 122 Source Monitor Monitor History Since Last Visit- (Skip if this is Patient's initial visit) Have you changed medications since your No No last visit? Any new allergies or adverse reactions No No Had a fall/change in ADL's that may No No increase risk of falls Signs or symptoms of abuse and/or No No neglect since last visit Have you been in the hospital since your No No last visit? Has dressing in place as prescribed Yes Yes Has compression in place as prescribed N/A N/A Has offloadiing in place as prescribed Yes Yes Experienced any changes in pain level or No No management Right Footwear Total Contact Total Contact Cast Cast Pain Scale: 0-10 Numeric Is Patient Pain Free? Yes Yes - Nurse 1 - General Ulcer Measurement Start: 12/13/22 08:32 Freq: Status: Active Protocol: Activity Type Activity Date Activity User E-sign Co-sign Detail Recorded Client Recorded Date Recorded By Document 12/13/22 08:32 PL [id number] 12/13/22 08:47 PL Document 12/20/22 11:05 DL [id number] 12/20/22 11:15 DL Document 12/27/22 10:48 DL [id number] 12/27/22 11:05 DL Document 01/03/23 10:04 DL [id number] 01/03/23 10:13 DL Document 01/10/23 10:21 DL [id number] 01/10/23 10:34 DL 12/13/22 12/20/22 12/27/22 08:32 11:05 10:48 Wound Center Nurse 1 #1- R HEEL -Combined with other wound No -Current Size (cm) - Length 1.5 3.1 3 -Current Size (cm) - Width 1.5 1.8 1.6 -Current Size (cm) - Depth 0.2 0.2 0.2 -Total Square Cm 2.25 5.58 4.8 -Photo Taken No Yes -Epithelialization Medium 34-66% -Tunneling No -Undermining/Tunneling No -Circular Undermining No -Exudate Amt Medium Medium Medium -Exudate Type Serosanguineous Serosanguineous Serosanguineous -Wound Margin Distinct, Distinct, Outline Outline Attached Attached -Granulation Amt Medium (34-66%) Medium (34-66%) Medium (34-66%) -Granulation Quality [place] Red Red -Necrosis Amt None Present (0 Medium (34-66%) Medium (34-66%) %) -Necrotic Tissue Type Adherent Slough Adherent Slough Adherent Slough -Structure Exposed N/A N/A -Texture (Lianna-wound Skin Appearance) No Abnormality Scarring Scarring -Moisture (Lianna-wound Skin Appearance) No Abnormality No Abnormality Dry/Scaly -Color (Lianna-wound Skin Appearance) Assessed No Abnormality Hemosiderin Staining -Temperature (Lianna-wound Skin No Abnormality No Abnormality No Abnormality Appearance) (Pt Warm) (Pt Warm) (Pt Warm) -Tenderness on Palpation (Lianna-wound No No Skin Appearance) -Ulcer Cleansing Soap and Water Soap and Water Soap and Water -Foul Odor after Cleansing No No No -Anesthetic Used 5% Lidocaine 5% Lidocaine 5% Lidocaine Gel Gel Gel Right Calf (cm) 48.5 Right Ankle (cm) 28.6 01/03/23 01/10/23 10:04 10:21 Wound Center Nurse 1 #1- R HEEL -Combined with other wound -Current Size (cm) - Length 2.6 2.2 -Current Size (cm) - Width 1.4 1 -Current Size (cm) - Depth 0.2 0.2 -Total Square Cm 3.64 2.2 -Photo Taken Yes Yes -Epithelialization -Tunneling -Undermining/Tunneling -Circular Undermining -Exudate Amt Medium Small -Exudate Type Serosanguineous Serosanguineous -Wound Margin Distinct, Distinct, Outline Outline Attached Attached -Granulation Amt Medium (34-66%) Large (67-100%) -Granulation Quality Red [place],Red -Necrosis Amt Medium (34-66%) Medium (34-66%) -Necrotic Tissue Type Adherent Slough Adherent Slough -Structure Exposed N/A N/A -Texture (Lianna-wound Skin Appearance) Scarring Scarring -Moisture (Lianna-wound Skin Appearance) Maceration No Abnormality -Color (Lianna-wound Skin Appearance) No Abnormality No Abnormality -Temperature (Lianna-wound Skin No Abnormality No Abnormality Appearance) (Pt Warm) (Pt Warm) -Tenderness on Palpation (Lianna-wound No No Skin Appearance) -Ulcer Cleansing Soap and Water Soap and Water -Foul Odor after Cleansing No No -Anesthetic Used 5% Lidocaine 5% Lidocaine Gel Gel Right Calf (cm) 43.6 Right Ankle (cm) 23.5 - Nurse 2 - General Ulcer CM Notes Start: 12/13/22 08:32 Freq: Status: Active Protocol: Activity Type Activity Date Activity User E-sign Co-sign Detail Recorded Client Recorded Date Recorded By Document 12/13/22 09:29 [id number] 12/13/22 09:36 Document 12/20/22 11:21 PL [id number] 12/20/22 11:37 PL Edit Result 12/20/22 11:21 PL (1) [id number] 12/20/22 11:44 PL Edit Result 05/10/23 11:21 PL (2) [id number] 12/21/22 06:56 PL Document 12/27/22 11:21 JF [id number] 12/27/22 11:22 JF Edit Result 12/27/22 11:21 JF (3) [id number] 12/27/22 11:23 JF Edit Result 12/27/22 11:21 JF (4) [id number] 12/27/22 11:24 JF Document 01/03/23 10:27 JF [id number] 01/03/23 10:34 JF Document 01/10/23 10:57 JF [id number] 01/10/23 11:02 JF Edit Result 01/10/23 10:57 JF (5) [id number] 01/10/23 11:06 JF (1) #1- R HEEL - Bleeding Controlled with Pressure => Pressure,Chemical => Cauterization ($) (2) #1- R HEEL - Type of Offloading => Total Contact Cast => (TCC) - Right ($) (3) #1- R HEEL - Apply Skin Sub - 1st 25 sq cm - Legs => 1 - Apply Skin Sub - 1st 25 sq cm - Feet 1 => (4) #1- R HEEL - Apply Skin Sub - 1st 25 sq cm - Legs 1 => - Apply Skin Sub - 1st 25 sq cm - Feet 1 => 1 (5) #1- R HEEL - Bleeding Controlled with Pressure => Pressure,Silver => Nitrate 12/13/22 12/20/22 12/27/22 09:29 11:21 11:21 Wound Center Nurse 2 #1- R HEEL -Time 09: 11:25 11:21 -Correct Patient Yes Yes Yes -Correct Side, Site, Position Yes Yes Yes -Correct Procedure Yes Yes Yes -Procedure Performed Yes Yes Yes -Type of Procedure Debridement Debridement Debridement -Clinical Debridement Subcutaneous Subcutaneous Subcutaneous -Tissue Removed Subcutaneous Subcutaneous Subcutaneous -Post Debridement (cm) - Length 3.5 3.3 3.0 -Post Debridement (cm) - Width 2.2 2.8 1.8 -Post Debridement (cm) - Depth 0.5 0.2 0.3 -Total Square (Post) (cm) 7.70 9.24 5.40 -Area of Debridement (cm) - Length 3.5 3.3 3.0 -Area of Debridement (cm) - Width 2.2 2.8 1.8 -Total Square (Area) (cm) 7.70 9.24 5.40 -Tunneling No No No -Undermining/Tunneling No No No -Circular Undermining No No No -Wound/Ulcer Outcome Not Healed Not Healed Not Healed -Ulcer Cleansing Rinsed/ Rinsed/ Rinsed/ Irrigated with Irrigated with Irrigated with Saline Saline Saline -Foul Odor after Cleansing No No No -Bioengineered Tissue Yes Yes Yes -Type of Bioengineered Tissue Epifix Mesh Epifix Mesh Epifix Mesh -Expiration Date 09/13/27 09/13/27 09/13/27 -Product Lot Number [id number] -Percent Used 100 100 100 -Lot number of Saline Used [id number] -Bleeding Controlled with Pressure Pressure, Pressure Chemical Cauterization ( $) -Treatment Response Procedure Procedure Procedure Tolerated Well Tolerated Well Tolerated Well -Offloading Yes No -Type of Offloading Total Contact Total Contact Total Contact Cast (TCC) - Cast (TCC) - Cast (TCC) - Right ($) Right ($) Right ($) -Debridement - Subq, 1st 20sq cm No No No -Apply Skin Sub - 1st 25 sq cm - Feet 1 1 1 -Epifix Mesh (per sq cm) 11 11 11 Pain Scale: 0-10 Numeric Is Patient Pain Free? Yes Yes Yes 01/03/23 01/10/23 10:27 10:57 Wound Center Nurse 2 #1- R HEEL -Time 10:27 10:58 -Correct Patient Yes Yes -Correct Side, Site, Position Yes Yes -Correct Procedure Yes Yes -Procedure Performed Yes Yes -Type of Procedure Debridement Debridement -Clinical Debridement Subcutaneous Subcutaneous -Tissue Removed Subcutaneous Subcutaneous -Post Debridement (cm) - Length 2.8 2.3 -Post Debridement (cm) - Width 1.6 1.4 -Post Debridement (cm) - Depth 0.2 0.2 -Total Square (Post) (cm) 4.48 3.22 -Area of Debridement (cm) - Length 2.8 2.3 -Area of Debridement (cm) - Width 1.6 1.4 -Total Square (Area) (cm) 4.48 3.22 -Tunneling No No -Undermining/Tunneling No No -Circular Undermining No No -Wound/Ulcer Outcome Not Healed Not Healed -Ulcer Cleansing Rinsed/ Rinsed/ Irrigated with Irrigated with Saline Saline -Foul Odor after Cleansing No No -Bioengineered Tissue No No -Type of Bioengineered Tissue -Expiration Date -Product Lot Number -Percent Used -Lot number of Saline Used -Bleeding Controlled with Pressure Pressure,Silver Nitrate -Treatment Response Procedure Procedure Tolerated Well Tolerated Well -Offloading Yes Yes -Type of Offloading Total Contact Total Contact Cast (TCC) - Cast (TCC) - Right ($) Right ($) -Debridement - Subq, 1st 20sq cm Yes Yes -Apply Skin Sub - 1st 25 sq cm - Feet -Epifix Mesh (per sq cm) Pain Scale: 0-10 Numeric Is Patient Pain Free? Yes Yes - Nurse 3 - General Ulcer D/C NN Start: 12/13/22 08:32 Freq: Status: Active Protocol: Activity Type Activity Date Activity User E-sign Co-sign Detail Recorded Client Recorded Date Recorded By Document 12/13/22 10:26 PL [id number] 12/13/22 10:27 PL 12/13/22 10:26 Wound Care Center Nurse 3 #1- R HEEL -Other Dressing Abd Pain Scale: 0-10 Numeric Is Patient Pain Free? Yes - Visit Discharge Discharge Condition Stable Ambulatory Status Walker Transportation Private Auto Assessment/Plan Assessment/Plan (1) Pressure ulcer of right heel, stage 3: CODE(S): L89.613 - Pressure ulcer of right heel, stage 3 (2) Non-healing ulcer of right foot with fat layer exposed: CODE(S): L97.512 - Non-pressure chronic ulcer of other part of right foot with fat layer exposed (3) VRE (vancomycin-resistant Enterococci) infection: CODE(S): A49.1 - Streptococcal infection, unspecified site; Z16.21 - Resistance to vancomycin (4) History of total knee arthroplasty: CODE(S): Z96.659 - Presence of unspecified artificial knee joint (5) Diabetic polyneuropathy: CODE(S): E11.42 - Type 2 diabetes mellitus with diabetic polyneuropathy (6) Diabetes mellitus: CODE(S): E11.9 - Type 2 diabetes mellitus without complications (7) Lymphedema: CODE(S): I89.0 - Lymphedema, not elsewhere classified (8) Lower extremity edema: CODE(S): R60.0 - Localized edema PLAN: Plan Patient evaluated at the wound healing center. He was approved for Epicord/Epifix to this ulcer. He has received 10 application total (Epicord 7 applications, Epifix #3) He has shown improvement in his ulcer with off loading with TCC. Wound care - Aquacel-Ag covered with super absorber/gauze. Offloading: He is amendable to have a total contact cast applied today and verbal consent was obtained.? This was applied according to standard protocol in a neutral position a well-padded manner.? He tolerated this well.? To keep clean, dry, and intact until follow-up visit. He was encouraged to only walk with a total contact cast while in the cast boot.? He was also instructed to not get the cast wet and to shower using cast bag.? He voices understanding of this. I discussed with him that he will not be able to visualize for signs and symptoms of infection while he is in a total contact cast.? I did discuss the signs and symptoms of infection today.? Informed him if he notices any redness moving up the leg, continued feeling of oozing, increasing odor, increasing pain, or if he experiences any fever greater than 101 degree, nausea, vomiting, or chills that he is to report straight to the ED for removal of the total contact cast for evaluation as these are signs of progressing infection.? He voices understanding of this today. A wound culture was obtained 08/30/22 which was positive for VRE, Kocuria kristinae, and Corynebacterium striatum completed Linezolid. Encouraged increase protein intake with low carbs to help with blood sugars and wound healing. He is on Doxycycline as suppressive treatment since he had his left knee replaced, this is prescribed by Orthopaedics. Follow up one week. Call or come in sooner if develop any concerns.
== END 2023-01-10 23:59 | disposition home or self-care (01) ==
LOC: WC 10:30
PROVIDERS: PCP Internal Medicine; Visit Provider Nurse Practitioner Family
DX: L89.613 Pressure ulcer of right heel, stage 3 (principal); E11.42 Type 2 diabetes mellitus with diabetic polyneuropathy; Z79.4 Long term (current) use of insulin; I89.0 Lymphedema, not elsewhere classified; R60.0 Localized edema; I10 Essential (primary) hypertension; M79.89 Other specified soft tissue disorders; E78.00 Pure hypercholesterolemia, unspecified; Z79.82 Long term (current) use of aspirin; Z79.01 Long term (current) use of anticoagulants; Z79.899 Other long term (current) drug therapy; Z96.652 Presence of left artificial knee joint
CPT/HCPCS: 11042; 15271; 15275; 17250; 29445; Q4186

== ENCOUNTER 2023-02-07 10:30 | Outpatient (RCR) | payer MEDICARE, BC, SELFPAY ==
[2023-01-11 00:21] VITALS: BP 194/87; PULSE 85; RESP 22; TEMP 36.6; BMI 46.5
[2023-01-17 10:38] VITALS: BP 150/70; PULSE 93; RESP 22; TEMP 36.6; BMI 46.5
--- NOTE | 2023-01-17 12:22 | PN.PCM_ITS ---
History of Present Illness Date of Service: 01/17/23 Chief Complaint: Right heel ulcer History of Wound: 66 year old male presents to the wound center for evaluation of his right heal ulcer. It started as a a pressure ulcer in February when he he was in TCU and it healed. It then became a blister right before his Left TKR surgery. He had his left knee replaced 07/14/22 at [facility]. 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 He also has a history of diabetes, HTN, lymphedema, hypercholesterolemia and PE that he is on Xerelto. He currently has home health. Wound culture obtained on 08/30/22 which are positive for VRE, Kocuria kristinae and Corynebacterium striatum. He will completed the Linezolid. Foot xray 09/27/22 - Osteopenia with diffuse osteoarthritic changes. Diffuse soft tissue swelling with ossification of the distal Achilles tendon. No acute abnormality or evidence of erosive changes. Wound care - He has been approved for Epicord and Epifix and has received 10 applications total. Aquacel-Ag covered by gauze and TCC to off load. He denies any fever, chills, nausea and vomiting. Progress of Wound: He has been tolerating the TCC. His ulcer is smaller this week and is a nice beefy pink color, no areas of pressure this week. No callus surrounding the ulcer with him wearing the TCC. Objective Data Objective Data Vital Signs: Vital Signs Temp Pulse Resp BP 97.9 F 93 22 H 150/70 H 01/17/23 10:38 01/17/23 10:38 01/17/23 10:38 01/17/23 10:38 Weight: 343 lb Body Mass Index (BMI) 46.5 Charges/Coding Procedures Integumentary 111xxx-113xx: 92729 [place] subq tissue 20 sq cm/< Procedures Musculoskeletal 20xxx-29xxx: 25958 APPLY RIGID LEG CAST (total contact cast) Debridement Note Debridement Note Wound debrided: Right posterior lateral heel Laterality: Right Wound Grade/Stage: Gomez stage III Type of Debridement: Excisional debridement Anesthesia Used: 5% Lidocaine Gel Depth: Down to and including healthy tissue and in the subcutaneous layer Percentage of wound debrided: 100 Instrument Used: 5mm curette Tissue Removed: Devitalized subcutaneous, biofilm, slough Severity: Fat Layer Exposed Amount of bleeding with debridement: Mild Bleeding Controlled with: Pressure, Compression and gauze and Silver Nitrate (to one area that wound not stop oozing even with pressure held for greater than 5 minutes.) Patient tolerated procedure: Patient tolerated procedure well Post-Debridement Measurements and Additional Note: Post-Debridement Measurements/Treatment LAM - Nurse 1 - General Ulcer Assessment Start: 01/17/23 10:27 Freq: Status: Active Protocol: NELL Activity Type Activity Date Activity User E-sign Co-sign Detail Recorded Client Recorded Date Recorded By Document 01/17/23 10:38 DL [id number] 01/17/23 10:51 DL 01/17/23 10:38 - Today's Visit Information Type of service Follow-up Visit (Physician/THREAD CUTTER ) Arrival Mode Ambulatory, Walker Transfer Assistance None Patient Identification Verified (Name & Yes ) Patient Requires Transmission-Based No Precautions Finger Stick Blood Sugar(mg/dl) (if 165 indicated): Blood Sugar Stated by Patient Height and Weight Body Mass Index (BMI) 46.5 BMI Classification Obese Vital Signs Temperature (97.8 F-99.1 F) 97.9 F Temperature Source Temporal Pulse Rate (60-100) 93 Pulse Location Monitor Respiratory Rate (12-18) 22 H Respiratory rate source Observation Blood Pressure (90/60-120/80) 150/70 H Blood Pressure Mean (mm Hg) 96 Source Monitor Pain Scale: 0-10 Numeric Is Patient Pain Free? Yes LAM - Nurse 1 - General Ulcer Measurement Start: 01/17/23 10:27 Freq: Status: Active Protocol: Activity Type Activity Date Activity User E-sign Co-sign Detail Recorded Client Recorded Date Recorded By Document 01/17/23 10:38 DL [id number] 01/17/23 10:51 DL 01/17/23 10:38 Wound Center Nurse 1 #1- R HEEL -Current Size (cm) - Length 2.2 -Current Size (cm) - Width 1.1 -Current Size (cm) - Depth 0.3 -Total Square Cm 2.42 -Photo Taken Yes -Exudate Amt Medium -Exudate Type Serosanguineous -Wound Margin Distinct, Outline Attached -Granulation Amt Large (67-100%) -Granulation Quality Red -Necrosis Amt Small (1-33%) -Necrotic Tissue Type Adherent Slough -Structure Exposed N/A -Texture (Lianna-wound Skin Appearance) Scarring -Color (Lianna-wound Skin Appearance) No Abnormality, Hemosiderin Staining -Temperature (Lianna-wound Skin No Abnormality Appearance) (Pt Warm) -Ulcer Cleansing Soap and Water -Anesthetic Used 5% Lidocaine Gel Right Calf (cm) 45.8 Right Ankle (cm) 28 WC - Nurse 2 - General Ulcer CM Notes Start: 01/17/23 10:27 Freq: Status: Active Protocol: Activity Type Activity Date Activity User E-sign Co-sign Detail Recorded Client Recorded Date Recorded By Document 01/17/23 11:00 YASMINE [id number] 01/17/23 11:03 YASMINE Edit Result 01/17/23 11:00 JF (1) [id number] 01/17/23 11:04 JF (1) #1- R HEEL - Bleeding Controlled with Pressure => Pressure,Silver => Nitrate 01/17/23 11:00 Wound Center Nurse 2 #1- R HEEL -Time 11:00 -Correct Patient Yes -Correct Side, Site, Position Yes -Correct Procedure Yes -Procedure Performed Yes -Type of Procedure Debridement -Clinical Debridement Subcutaneous -Tissue Removed Subcutaneous -Post Debridement (cm) - Length 2.0 -Post Debridement (cm) - Width 1.1 -Post Debridement (cm) - Depth 0.2 -Total Square (Post) (cm) 2.20 -Area of Debridement (cm) - Length 2.0 -Area of Debridement (cm) - Width 1.1 -Total Square (Area) (cm) 2.20 -Tunneling No -Undermining/Tunneling No -Circular Undermining No -Wound/Ulcer Outcome Not Healed -Ulcer Cleansing Rinsed/ Irrigated with Saline -Foul Odor after Cleansing No -Bioengineered Tissue No -Bleeding Controlled with Pressure,Silver Nitrate -Treatment Response Procedure Tolerated Well -Offloading Yes -Type of Offloading Total Contact Cast (TCC) - Right ($) -Debridement - Subq, 1st 20sq cm Yes Pain Scale: 0-10 Numeric Is Patient Pain Free? Yes WC - Nurse 3 - General Ulcer D/C NN Start: 01/17/23 10:27 Freq: Status: Active Protocol: Activity Type Activity Date Activity User E-sign Co-sign Detail Recorded Client Recorded Date Recorded By Document 01/17/23 11:12 DL [id number] 01/17/23 11:14 DL 01/17/23 11:12 Wound Care Center Nurse 3 #1- R HEEL -Ulcer Cleansing Soap and Water -Foul Odor after Cleansing No -Other Dressing aquacel ex -Other Covering foam/TCC Right -Tubular Bandage Single Layer -Size of Tubigrip Used Size E -Size E ($) 1 -Other TCC Treatment Response Procedure Tolerated Well Pain Scale: 0-10 Numeric Is Patient Pain Free? 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 He was approved for Epicord/Epifix to this ulcer. He has received 10 application total (Epicord 7 applications, Epifix #3) He has shown improvement in his ulcer with off loading with TCC. Wound care - Aquacel-Ag covered with super absorber/gauze. Offloading: He is amendable to have a total contact cast applied today and ve rbal consent was obtained.? This was applied according to standard protocol in a neutral position a well-padded manner.? He tolerated this well.? To keep clean, dry, and intact until follow-up visit. He was encouraged to only walk with a total contact cast while in the cast boot.? He was also instructed to not get the cast wet and to shower using cast bag.? He voices understanding of this. I discussed with him that he will not be able to visualize for signs and symptoms of infection while he is in a total contact cast.? I did discuss the signs and symptoms of infection today.? Informed him if he notices any redness moving up the leg, continued feeling of oozing, increasing odor, increasing pain, or if he experiences any fever greater than 101 degree, nausea, vomiting, or chills that he is to report straight to the ED for removal of the total contact cast for evaluation as these are signs of progressing infection.? He voices understanding of this today. A wound culture was obtained 08/30/22 which was positive for VRE, Kocuria kristinae, and Corynebacterium striatum completed Linezolid. Encouraged increase protein intake with low carbs to help with blood sugars and wound healing. He is on Doxycycline as suppressive treatment since he had his left knee replaced, this is prescribed by Orthopaedics. Follow up one week. Call or come in sooner if develop any concerns.
--- NOTE | 2023-01-24 12:39 | PCM.WC.PN ---
History of Present Illness Date of Service: 01/24/23 Chief Complaint: Right heel ulcer History of Wound: 66 year old male presents to the wound center for evaluation of his right heal ulcer. It started as a a pressure ulcer in February when he he was in TCU and it healed. It then became a blister right before his Left TKR surgery. He had his left knee replaced 07/14/22 at [facility]. 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 He also has a history of diabetes, HTN, lymphedema, hypercholesterolemia and PE that he is on Xerelto. He currently has home health. Wound culture obtained on 08/30/22 which are positive for VRE, Kocuria kristinae and Corynebacterium striatum. He will completed the Linezolid. Foot xray 09/27/22 - Osteopenia with diffuse osteoarthritic changes. Diffuse soft tissue swelling with ossification of the distal Achilles tendon. No acute abnormality or evidence of erosive changes. Wound care - He has been approved for Epicord and Epifix and has received 10 applications total. Aquacel-Ag covered by gauze and TCC to off load. He denies any fever, chills, nausea and vomiting. Progress of Wound: He has been tolerating the TCC. His right heel ulcer medial edge where there has been pressure on it. There is necrotic tissue along the proximal edge and the epidermal layer sloughed off. Patient states that he fell this week and had a difficult time getting up off the floor. He did not have the boot over his TCC at that time. Unsure if the fall and standing on cast possibly could have caused the pressure area. The ulcer is larger. Objective Data Objective Data Vital Signs: Vital Signs Temp Pulse Resp BP 97.9 F 93 22 H 150/70 H 01/17/23 10:38 01/17/23 10:38 01/17/23 10:38 01/17/23 10:38 Weight: 343 lb Body Mass Index (BMI) 46.5 Charges/Coding Procedures Integumentary 111xxx-113xx: 71668 [place] subq tissue 20 sq cm/< Debridement Note Debridement Note Wound debrided: Right posterior lateral heel Laterality: Right Wound Grade/Stage: Gomez stage III Type of Debridement: Excisional debridement Anesthesia Used: 5% Lidocaine Gel Depth: Down to and including healthy tissue and in the subcutaneous layer Percentage of wound debrided: 100 Instrument Used: 5mm curette and #15 blade Tissue Removed: Devitalized subcutaneous, biofilm, slough Severity: Fat Layer Exposed Amount of bleeding with debridement: Mild Bleeding Controlled with: Pressure, Compression and gauze and Silver Nitrate (to the edge of the ulcer) Patient tolerated procedure: Patient tolerated procedure well Post-Debridement Measurements and Additional Note: Post-Debridement Measurements/Treatment - Nurse 1 - General Ulcer Assessment Start: 01/17/23 10:27 Freq: Status: Active Protocol: NELL Activity Type Activity Date Activity User E-sign Co-sign Detail Recorded Client Recorded Date Recorded By Document 01/17/23 10:38 DL [id number] 01/17/23 10:51 DL 01/17/23 10:38 - Today's Visit Information Type of service Follow-up Visit (Physician/AUDIO VISUAL COLLECTIONS COORDINATOR ) Arrival Mode Ambulatory, Walker Transfer Assistance None Patient Identification Verified (Name & Yes ) Patient Requires Transmission-Based No Precautions Finger Stick Blood Sugar(mg/dl) (if 165 indicated): Blood Sugar Stated by Patient Height and Weight Body Mass Index (BMI) 46.5 BMI Classification Obese Vital Signs Temperature (97.8 F-99.1 F) 97.9 F Temperature Source Temporal Pulse Rate (60-100) 93 Pulse Location Monitor Respiratory Rate (12-18) 22 H Respiratory rate source Observation Blood Pressure (90/60-120/80) 150/70 H Blood Pressure Mean (mm Hg) 96 Source Monitor Pain Scale: 0-10 Numeric Is Patient Pain Free? Yes - Nurse 1 - General Ulcer Measurement Start: 01/17/23 10:27 Freq: Status: Active Protocol: Activity Type Activity Date Activity User E-sign Co-sign Detail Recorded Client Recorded Date Recorded By Document 01/17/23 10:38 DL [id number] 01/17/23 10:51 DL 01/17/23 10:38 Wound Center Nurse 1 #1- R HEEL -Current Size (cm) - Length 2.2 -Current Size (cm) - Width 1.1 -Current Size (cm) - Depth 0.3 -Total Square Cm 2.42 -Photo Taken Yes -Exudate Amt Medium -Exudate Type Serosanguineous -Wound Margin Distinct, Outline Attached -Granulation Amt Large (67-100%) -Granulation Quality Red -Necrosis Amt Small (1-33%) -Necrotic Tissue Type Adherent Slough -Structure Exposed N/A -Texture (Lianna-wound Skin Appearance) Scarring -Color (Lianna-wound Skin Appearance) No Abnormality, Hemosiderin Staining -Temperature (Lianna-wound Skin No Abnormality Appearance) (Pt Warm) -Ulcer Cleansing Soap and Water -Anesthetic Used 5% Lidocaine Gel Right Calf (cm) 45.8 Right Ankle (cm) 28 WC - Nurse 2 - General Ulcer CM Notes Start: 01/17/23 10:27 Freq: Status: Active Protocol: Activity Type Activity Date Activity User E-sign Co-sign Detail Recorded Client Recorded Date Recorded By Document 01/17/23 11:00 [id number] 01/17/23 11:03 Edit Result 01/17/23 11:00 JF (1) [id number] 01/17/23 11:04 Document 01/24/23 11:25 [id number] 01/24/23 11:26 (1) #1- R HEEL - Bleeding Controlled with Pressure => Pressure,Silver => Nitrate 01/17/23 01/24/23 11:00 11:25 Wound Center Nurse 2 #1- R HEEL -Time 11:00 11:25 -Correct Patient Yes Yes -Correct Side, Site, Position Yes Yes -Correct Procedure Yes Yes -Procedure Performed Yes Yes -Type of Procedure Debridement Debridement -Clinical Debridement Subcutaneous Subcutaneous -Tissue Removed Subcutaneous Subcutaneous -Post Debridement (cm) - Length 2.0 2.7 -Post Debridement (cm) - Width 1.1 3.5 -Post Debridement (cm) - Depth 0.2 0.6 -Total Square (Post) (cm) 2.20 9.45 -Area of Debridement (cm) - Length 2.0 2.7 -Area of Debridement (cm) - Width 1.1 3.5 -Total Square (Area) (cm) 2.20 9.45 -Tunneling No No -Undermining/Tunneling No No -Circular Undermining No No -Wound/Ulcer Outcome Not Healed Not Healed -Ulcer Cleansing Rinsed/ Rinsed/ Irrigated with Irrigated with Saline Saline -Foul Odor after Cleansing No No -Bioengineered Tissue No No -Bleeding Controlled with Pressure,Silver Pressure,Silver Nitrate Nitrate -Treatment Response Procedure Procedure Tolerated Well Tolerated Well -Offloading Yes Yes -Type of Offloading Total Contact Surgical Shoe Cast (TCC) - Right ($) -Debridement - Subq, 1st 20sq cm Yes Yes Pain Scale: 0-10 Numeric Is Patient Pain Free? Yes Yes - Nurse 3 - General Ulcer D/C NN Start: 01/17/23 10:27 Freq: Status: Active Protocol: Activity Type Activity Date Activity User E-sign Co-sign Detail Recorded Client Recorded Date Recorded By Document 01/17/23 11:12 DL [id number] 01/17/23 11:14 DL 01/17/23 11:12 Wound Care Center Nurse 3 #1- R HEEL -Ulcer Cleansing Soap and Water -Foul Odor after Cleansing No -Other Dressing aquacel ex -Other Covering foam/TCC Right -Tubular Bandage Single Layer -Size of Tubigrip Used Size E -Size E ($) 1 -Other TCC Treatment Response Procedure Tolerated Well Pain Scale: 0-10 Numeric Is Patient Pain Free? 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 He was approved for Epicord/Epifix to this ulcer. He has received 10 application total (Epicord 7 applications, Epifix #3) He has shown improvement in his ulcer with off loading with TCC. Wound care - Moistened Joelle covered with gauze daily. Offloading: Will hold off on TCC this week due to the pressure from last week after his fall and to do daily dressing changes. Place Double tubigrip and post-op shoe. A wound culture was obtained 08/30/22 which was positive for VRE, Kocuria kristinae, and Corynebacterium striatum completed Linezolid. Encouraged increase protein intake with low carbs to help with blood sugars and wound healing. He is on Doxycycline as suppressive treatment since he had his left knee replaced, this is prescribed by Orthopaedics. Follow up one week. Call or come in sooner if develop any concerns.
[2023-01-24 13:18] VITALS: BP 165/97; PULSE 85; TEMP 36.1; BMI 46.5
[2023-01-31 10:26] VITALS: BP 184/86; PULSE 74; RESP 22; TEMP 36.8; BMI 46.5
--- NOTE | 2023-01-31 11:27 | PN.PCM_ITS ---
History of Present Illness Date of Service: 01/31/23 Chief Complaint: Right heel ulcer History of Wound: 66 year old male presents to the wound center for evaluation of his right heal ulcer. It started as a a pressure ulcer in February when he he was in TCU and it healed. It then became a blister right before his Left TKR surgery. He had his left knee replaced 07/14/22 at [facility]. 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 He also has a history of diabetes, HTN, lymphedema, hypercholesterolemia and PE that he is on Xerelto. He currently has home health. Wound culture obtained on 08/30/22 which are positive for VRE, Kocuria kristinae and Corynebacterium striatum. He will completed the Linezolid. Foot xray 09/27/22 - Osteopenia with diffuse osteoarthritic changes. Diffuse soft tissue swelling with ossification of the distal Achilles tendon. No acute abnormality or evidence of erosive changes. Wound care - He has been approved for Epicord and Epifix and has received 10 applications total. Aquacel-Ag covered by gauze. He denies any fever, chills, nausea and vomiting. Progress of Wound: His right heel ulcer lateral edge has a blister this week. Once the non viable tissue was removed, the over all ulcer is larger. He has been wearing a postop shoe. Unsure if he is off loading as much as he should be. Objective Data Objective Data Vital Signs: Vital Signs Temp Pulse Resp BP 98.3 F 74 22 H 184/86 H 01/31/23 10:26 01/31/23 10:26 01/31/23 10:26 01/31/23 10:26 Weight: 343 lb Body Mass Index (BMI) 46.5 Charges/Coding Procedures Integumentary [id number]: [id number] [place] subq tissue 20 sq cm/< Debridement Note Debridement Note Wound debrided: Right posterior lateral heel Laterality: Right Wound Grade/Stage: Gomez stage III Type of Debridement: Excisional debridement Anesthesia Used: 5% Lidocaine Gel Depth: Down to and including healthy tissue and in the subcutaneous layer Percentage of wound debrided: 100 Instrument Used: 5mm curette and #15 blade Tissue Removed: Devitalized subcutaneous, biofilm, slough Severity: Fat Layer Exposed Amount of bleeding with debridement: Mild Bleeding Controlled with: Pressure and Compression and gauze Patient tolerated procedure: Patient tolerated procedure well Post-Debridement Measurements and Additional Note: Post-Debridement Measurements/Treatment WC - Nurse 1 - General Ulcer Assessment Start: 01/17/23 10:27 Freq: Status: Active Protocol: NELL Activity Type Activity Date Activity User E-sign Co-sign Detail Recorded Client Recorded Date Recorded By Document 01/17/23 10:38 DL [id number] 01/17/23 10:51 DL Document 01/24/23 13:18 AK [id number] 01/24/23 13:19 AK Document 01/31/23 10:26 AK [id number] 01/31/23 10:35 AK 01/17/23 01/24/23 01/31/23 10:38 13:18 10:26 - Today's Visit Information Type of service Follow-up Visit Follow-up Visit Follow-up Visit (Physician/[employer] (Physician/[employer] (Physician/[employer] ) ) ) Arrival Mode Ambulatory, Ambulatory, Ambulatory, Walker Walker Walker Transfer Assistance None None Patient Identification Verified (Name & Yes Yes Yes ) Patient Requires Transmission-Based No No No Precautions Safety Precautions NA Finger Stick Blood Sugar(mg/dl) (if 165 135 indicated): Blood Sugar Stated by Stated by Patient Patient Height and Weight Body Mass Index (BMI) 46.5 46.5 46.5 BMI Classification Obese Obese Obese Vital Signs Temperature (97.8 F-99.1 F) 97.9 F 96.9 F L 98.3 F Temperature Source Temporal Temporal Temporal Pulse Rate (60-100) 93 85 74 Pulse Location Monitor Monitor Monitor Respiratory Rate (12-18) 22 H 22 H Respiratory rate source Observation Observation Blood Pressure (90/60-120/80) 150/70 H 165/97 H 184/86 H Blood Pressure Mean (mm Hg) 96 119 118 Source Monitor Monitor Monitor History Since Last Visit- (Skip if this is Patient's initial visit) Have you changed medications since your No No last visit? Any new allergies or adverse reactions No No Had a fall/change in ADL's that may No No increase risk of falls Signs or symptoms of abuse and/or No No neglect since last visit Have you been in the hospital since your No No last visit? Has dressing in place as prescribed Yes Yes Has compression in place as prescribed Yes Yes Has offloadiing in place as prescribed N/A Yes Experienced any changes in pain level or No No management Left Footwear Regular Shoe Right Footwear Regular Shoe Pain Scale: 0-10 Numeric Is Patient Pain Free? Yes Yes Yes WC - Nurse 1 - General Ulcer Measurement Start: 01/17/23 10:27 Freq: Status: Active Protocol: Activity Type Activity Date Activity User E-sign Co-sign Detail Recorded Client Recorded Date Recorded By Document 01/17/23 10:38 DL [id number] 01/17/23 10:51 DL Document 01/24/23 13:18 AK [id number] 01/24/23 13:19 AK Document 01/31/23 10:26 AK [id number] 01/31/23 10:35 AK 01/17/23 01/24/23 01/31/23 10:38 13:18 10:26 Wound Center Nurse 1 #1- R HEEL -Combined with other wound No -Current Size (cm) - Length 2.2 1.5 -Current Size (cm) - Width 1.1 1.4 -Current Size (cm) - Depth 0.3 0.2 -Total Square Cm 2.42 2.10 -Photo Taken Yes Yes -Exudate Amt Medium Medium -Exudate Type Serosanguineous Serosanguineous -Wound Margin Distinct, Distinct, Outline Outline Attached Attached -Granulation Amt Large (67-100%) Medium (34-66%) -Granulation Quality Red Pale -Necrosis Amt Small (1-33%) Medium (34-66%) -Necrotic Tissue Type Adherent Slough Adherent Slough -Structure Exposed N/A N/A -Texture (Lianna-wound Skin Appearance) Scarring Scarring -Color (Lianna-wound Skin Appearance) No Abnormality, Hemosiderin Hemosiderin Staining Staining -Temperature (Lianna-wound Skin No Abnormality No Abnormality Appearance) (Pt Warm) (Pt Warm) -Ulcer Cleansing Soap and Water Soap and Water -Foul Odor after Cleansing No -Anesthetic Used 5% Lidocaine 5% Lidocaine Gel Gel Right Calf (cm) 45.8 48 Right Ankle (cm) 28 29 Left Calf (cm) 45.5 Left Ankle (cm) 27.5 WC - Nurse 2 - General Ulcer CM Notes Start: 01/17/23 10:27 Freq: Status: Active Protocol: Activity Type Activity Date Activity User E-sign Co-sign Detail Recorded Client Recorded Date Recorded By Document 01/17/23 11:00 JF [id number] 01/17/23 11:03 JF Edit Result 01/17/23 11:00 JF (1) [id number] 01/17/23 11:04 JF Document 01/24/23 11:25 JF [id number] 01/24/23 11:26 JF (1) #1- R HEEL - Bleeding Controlled with Pressure => Pressure,Silver => Nitrate 01/17/23 01/24/23 11:00 11:25 Wound Center Nurse 2 #1- R HEEL -Time 11:00 11:25 -Correct Patient Yes Yes -Correct Side, Site, Position Yes Yes -Correct Procedure Yes Yes -Procedure Performed Yes Yes -Type of Procedure Debridement Debridement -Clinical Debridement Subcutaneous Subcutaneous -Tissue Removed Subcutaneous Subcutaneous -Post Debridement (cm) - Length 2.0 2.7 -Post Debridement (cm) - Width 1.1 3.5 -Post Debridement (cm) - Depth 0.2 0.6 -Total Square (Post) (cm) 2.20 9.45 -Area of Debridement (cm) - Length 2.0 2.7 -Area of Debridement (cm) - Width 1.1 3.5 -Total Square (Area) (cm) 2.20 9.45 -Tunneling No No -Undermining/Tunneling No No -Circular Undermining No No -Wound/Ulcer Outcome Not Healed Not Healed -Ulcer Cleansing Rinsed/ Rinsed/ Irrigated with Irrigated with Saline Saline -Foul Odor after Cleansing No No -Bioengineered Tissue No No -Bleeding Controlled with Pressure,Silver Pressure,Silver Nitrate Nitrate -Treatment Response Procedure Procedure Tolerated Well Tolerated Well -Offloading Yes Yes -Type of Offloading Total Contact Surgical Shoe Cast (TCC) - Right ($) -Debridement - Subq, 1st 20sq cm Yes Yes Pain Scale: 0-10 Numeric Is Patient Pain Free? Yes Yes LAM - Nurse 3 - General Ulcer D/C NN Start: 01/17/23 10:27 Freq: Status: Active Protocol: Activity Type Activity Date Activity User E-sign Co-sign Detail Recorded Client Recorded Date Recorded By Document 01/17/23 11:12 DL [id number] 01/17/23 11:14 DL Document 01/24/23 07:00 PL [id number] 01/25/23 07:01 PL 01/17/23 01/24/23 11:12 07:00 Wound Care Center Nurse 3 #1- R HEEL -Ulcer Cleansing Soap and Water Rinsed/ Irrigated with Saline -Foul Odor after Cleansing No No -Primary Dressing Applied Promogran Joelle Matter -Other Dressing aquacel ex ABD -Primary Dressing Covered/Secured with Dry Gauze & Roll Gauze -Other Covering foam/TCC -Promogran Joelle Matter 1 Right -Tubular Bandage Single Layer Double Layer -Size of Tubigrip Used Size E Size E -Size E ($) 1 4 -Other TCC Treatment Response Procedure Tolerated Well Pain Scale: 0-10 Numeric Is Patient Pain Free? Yes Yes WC - Visit Discharge Discharge Condition Stable Stable Ambulatory Status Ambulatory Walker Transportation Private Auto Private Auto Notes: TCC #3 Assessment/Plan Assessment/Plan (1) Pressure ulcer of right heel, stage 3: CODE(S): L89.613 - Pressure ulcer of right heel, stage 3 (2) 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 He was approved for Epicord/Epifix to this ulcer. He has received 10 application total (Epicord 7 applications, Epifix #3) He has shown improvement in his ulcer with off loading with TCC. Wound care - Moistened Joelle covered with gauze daily. Wash ulcer with soap and water at the time of the dressing change. Offloading: Will hold off on TCC again this week due to the pressure from his f all and to do daily dressing changes. Place Double tubigrip and post-op shoe. A wound culture was obtained 08/30/22 which was positive for VRE, Kocuria kristinae, and Corynebacterium striatum completed Linezolid. Encouraged increase protein intake with low carbs to help with blood sugars and wound healing. He is on Doxycycline as suppressive treatment since he had his left knee replaced, this is prescribed by Orthopaedics. Follow up one week. Call or come in sooner if develop any concerns.
[2023-02-07 10:14] VITALS: BP 175/86; PULSE 75; RESP 22; TEMP 36.6; BMI 46.5
--- NOTE | 2023-02-07 15:36 | PCM.WC.PN ---
History of Present Illness Date of Service: 02/07/23 Chief Complaint: Right heel ulcer History of Wound: 66 year old male presents to the wound center for evaluation of his right heal ulcer. It started as a a pressure ulcer in February when he he was in TCU and it healed. It then became a blister right before his Left TKR surgery. He had his left knee replaced 07/14/22 at [facility]. 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 He also has a history of diabetes, HTN, lymphedema, hypercholesterolemia and PE that he is on Xerelto. He currently has home health. Wound culture obtained on 08/30/22 which are positive for VRE, Kocuria kristinae and Corynebacterium striatum. He will completed the Linezolid. Foot xray 09/27/22 - Osteopenia with diffuse osteoarthritic changes. Diffuse soft tissue swelling with ossification of the distal Achilles tendon. No acute abnormality or evidence of erosive changes. Wound care - He has been approved for Epicord and Epifix and has received 10 applications total. Aquacel-Ag covered by gauze. He denies any fever, chills, nausea and vomiting. Progress of Wound: His right heel ulcer lateral edge has another blister this week, most likely from pressure from his post op shoe. He states that he is trying to off load. Objective Data Objective Data Vital Signs: Vital Signs Temp Pulse Resp BP 97.8 F 75 22 H 175/86 H 02/07/23 10:14 02/07/23 10:14 02/07/23 10:14 02/07/23 10:14 Weight: 343 lb Body Mass Index (BMI) 46.5 Charges/Coding Procedures Integumentary 111xxx-113xx: 94188 [place] subq tissue 20 sq cm/< Procedures Musculoskeletal 20xxx-29xxx: 19733 APPLY RIGID LEG CAST (total contact cast) Debridement Note Debridement Note Wound debrided: Right posterior lateral heel Laterality: Right Wound Grade/Stage: Gomez stage III Type of Debridement: Excisional debridement Anesthesia Used: 5% Lidocaine Gel Depth: Down to and including healthy tissue and in the subcutaneous layer Percentage of wound debrided: 100 Instrument Used: 5mm curette and #15 blade Tissue Removed: Devitalized subcutaneous, biofilm, slough Severity: Fat Layer Exposed Amount of bleeding with debridement: Mild Bleeding Controlled with: Pressure and Compression and gauze Patient tolerated procedure: Patient tolerated procedure well Post-Debridement Measurements and Additional Note: Post-Debridement Measurements/Treatment - Nurse 1 - General Ulcer Assessment Start: 01/17/23 10:27 Freq: Status: Active Protocol: NELL Activity Type Activity Date Activity User E-sign Co-sign Detail Recorded Client Recorded Date Recorded By Document 01/17/23 10:38 DL [id number] 01/17/23 10:51 DL Document 01/24/23 13:18 AK [id number] 01/24/23 13:19 AK Document 01/31/23 10:26 AK [id number] 01/31/23 10:35 AK Document 02/07/23 10:14 DL [id number] 02/07/23 10:29 DL 01/17/23 01/24/23 01/31/23 10:38 13:18 10:26 - Today's Visit Information Type of service Follow-up Visit Follow-up Visit Follow-up Visit (Physician/DIRECTOR SAFETY [employer]NCIL (Physician/DIRECTOR SAFETY COUNCIL (Physician/DIRECTOR SAFETY COUNCIL ) ) ) Arrival Mode Ambulatory, Ambulatory, Ambulatory, Walker Walker Walker Transfer Assistance None None Patient Identification Verified (Name & Yes Yes Yes ) Patient Requires Transmission-Based No No No Precautions Safety Precautions NA Finger Stick Blood Sugar(mg/dl) (if 165 135 indicated): Blood Sugar Stated by Stated by Patient Patient Height and Weight Body Mass Index (BMI) 46.5 46.5 46.5 BMI Classification Obese Obese Obese Vital Signs Temperature (97.8 F-99.1 F) 97.9 F 96.9 F L 98.3 F Temperature Source Temporal Temporal Temporal Pulse Rate (60-100) 93 85 74 Pulse Location Monitor Monitor Monitor Respiratory Rate (12-18) 22 H 22 H Respiratory rate source Observation Observation Blood Pressure (90/60-120/80) 150/70 H 165/97 H 184/86 H Blood Pressure Mean (mm Hg) 96 119 118 Source Monitor Monitor Monitor History Since Last Visit- (Skip if this is Patient's initial visit) Have you changed medications since your No No last visit? Any new allergies or adverse reactions No No Had a fall/change in ADL's that may No No increase risk of falls Signs or symptoms of abuse and/or No No neglect since last visit Have you been in the hospital since your No No last visit? Has dressing in place as prescribed Yes Yes Has compression in place as prescribed Yes Yes Has offloadiing in place as prescribed N/A Yes Experienced any changes in pain level or No No management Left Footwear Regular Shoe Right Footwear Regular Shoe Pain Scale: 0-10 Numeric Is Patient Pain Free? Yes Yes Yes 02/07/23 10:14 WC - Today's Visit Information Type of service Follow-up Visit (Physician/DIRECTOR S[employer]NCIL ) Arrival Mode Ambulatory, Walker Transfer Assistance None Patient Identification Verified (Name & Yes ) Patient Requires Transmission-Based No Precautions Safety Precautions Finger Stick Blood Sugar(mg/dl) (if 180 indicated): Blood Sugar Stated by Patient Height and Weight Body Mass Index (BMI) 46.5 BMI Classification Obese Vital Signs Temperature (97.8 F-99.1 F) 97.8 F Temperature Source Temporal Pulse Rate (60-100) 75 Pulse Location Monitor Respiratory Rate (12-18) 22 H Respiratory rate source Observation Blood Pressure (90/60-120/80) 175/86 H Blood Pressure Mean (mm Hg) 115 Source Monitor History Since Last Visit- (Skip if this is Patient's initial visit) Have you changed medications since your No last visit? Any new allergies or adverse reactions No Had a fall/change in ADL's that may No increase risk of falls Signs or symptoms of abuse and/or No neglect since last visit Have you been in the hospital since your No last visit? Has dressing in place as prescribed Yes Has compression in place as prescribed N/A Has offloadiing in place as prescribed Yes Experienced any changes in pain level or No management Left Footwear Right Footwear Surgical Shoe with pressure relief insole Pain Scale: 0-10 Numeric Is Patient Pain Free? Yes - Nurse 1 - General Ulcer Measurement Start: 01/17/23 10:27 Freq: Status: Active Protocol: Activity Type Activity Date Activity User E-sign Co-sign Detail Recorded Client Recorded Date Recorded By Document 01/17/23 10:38 DL [id number] 01/17/23 10:51 DL Document 01/24/23 13:18 AK [id number] 01/24/23 13:19 AK Document 06/21/23 10:26 AK [id number] 01/31/23 10:35 AK Document 02/07/23 10:14 DL [id number] 02/07/23 10:29 DL 01/17/23 01/24/23 01/31/23 10:38 13:18 10:26 Wound Center Nurse 1 #1- R HEEL -Combined with other wound No -Current Size (cm) - Length 2.2 1.5 -Current Size (cm) - Width 1.1 1.4 -Current Size (cm) - Depth 0.3 0.2 -Total Square Cm 2.42 2.10 -Photo Taken Yes Yes -Exudate Amt Medium Medium -Exudate Type Serosanguineous Serosanguineous -Wound Margin Distinct, Distinct, Outline Outline Attached Attached -Granulation Amt Large (67-100%) Medium (34-66%) -Granulation Quality Red Pale -Necrosis Amt Small (1-33%) Medium (34-66%) -Necrotic Tissue Type Adherent Slough Adherent Slough -Structure Exposed N/A N/A -Texture (Lianna-wound Skin Appearance) Scarring Scarring -Moisture (Lianna-wound Skin Appearance) -Color (Lianna-wound Skin Appearance) No Abnormality, Hemosiderin Hemosiderin Staining Staining -Temperature (Lianna-wound Skin No Abnormality No Abnormality Appearance) (Pt Warm) (Pt Warm) -Tenderness on Palpation (Lianna-wound Skin Appearance) -Ulcer Cleansing Soap and Water Soap and Water -Foul Odor after Cleansing No -Anesthetic Used 5% Lidocaine 5% Lidocaine Gel Gel Right Calf (cm) 45.8 48 Right Ankle (cm) 28 29 Left Calf (cm) 45.5 Left Ankle (cm) 27.5 02/07/23 10:14 Wound Center Nurse 1 #1- R HEEL -Combined with other wound -Current Size (cm) - Length 3 -Current Size (cm) - Width 4 -Current Size (cm) - Depth 0.2 -Total Square Cm 12 -Photo Taken -Exudate Amt Medium -Exudate Type Serosanguineous -Wound Margin Distinct, Outline Attached -Granulation Amt Medium (34-66%) -Granulation Quality Red -Necrosis Amt Medium (34-66%) -Necrotic Tissue Type Adherent Slough -Structure Exposed N/A -Texture (Lianna-wound Skin Appearance) Scarring -Moisture (Lianna-wound Skin Appearance) Maceration -Color (Lianna-wound Skin Appearance) No Abnormality -Temperature (Lianna-wound Skin No Abnormality Appearance) (Pt Warm) -Tenderness on Palpation (Lianna-wound No Skin Appearance) -Ulcer Cleansing Rinsed/ Irrigated with Saline -Foul Odor after Cleansing No -Anesthetic Used 5% Lidocaine Gel Right Calf (cm) Right Ankle (cm) Left Calf (cm) Left Ankle (cm) WC - Nurse 2 - General Ulcer CM Notes Start: 01/17/23 10:27 Freq: Status: Active Protocol: Activity Type Activity Date Activity User E-sign Co-sign Detail Recorded Client Recorded Date Recorded By Document 01/17/23 11:00 [id number] 01/17/23 11:03 JF Edit Result 01/17/23 11:00 JF (1) [id number] 01/17/23 11:04 Document 01/24/23 11:25 JF [id number] 01/24/23 11:26 Document 01/31/23 14:56 PL [id number] 01/31/23 14:57 PL Document 02/07/23 10:43 JF [id number] 02/07/23 10:53 JF (1) #1- R HEEL - Bleeding Controlled with Pressure => Pressure,Silver => Nitrate 01/17/23 01/24/23 01/31/23 11:00 11:25 14:56 Wound Center Nurse 2 #1- R HEEL -Time 11:00 11:25 10:41 -Correct Patient Yes Yes Yes -Correct Side, Site, Position Yes Yes Yes -Correct Procedure Yes Yes Yes -Procedure Performed Yes Yes Yes -Type of Procedure Debridement Debridement Debridement -Clinical Debridement Subcutaneous Subcutaneous Subcutaneous -Tissue Removed Subcutaneous Subcutaneous Subcutaneous -Post Debridement (cm) - Length 2.0 2.7 2.3 -Post Debridement (cm) - Width 1.1 3.5 2.5 -Post Debridement (cm) - Depth 0.2 0.6 0.3 -Total Square (Post) (cm) 2.20 9.45 5.75 -Area of Debridement (cm) - Length 2.0 2.7 2.3 -Area of Debridement (cm) - Width 1.1 3.5 2.5 -Total Square (Area) (cm) 2.20 9.45 5.75 -Tunneling No No No -Undermining/Tunneling No No No -Circular Undermining No No No -Wound/Ulcer Outcome Not Healed Not Healed Not Healed -Ulcer Cleansing Rinsed/ Rinsed/ Rinsed/ Irrigated with Irrigated with Irrigated with Saline Saline Saline -Foul Odor after Cleansing No No No -Bioengineered Tissue No No No -Bleeding Controlled with Pressure,Silver Pressure,Silver Pressure Nitrate Nitrate -Treatment Response Procedure Procedure Procedure Tolerated Well Tolerated Well Tolerated Well -Offloading Yes Yes -Type of Offloading Total Contact Surgical Shoe Cast (TCC) - Right ($) -Debridement - Subq, 1st 20sq cm Yes Yes Yes -Debridement, SubQ, ea addt'l 20sq cm or part thereof Pain Scale: 0-10 Numeric Is Patient Pain Free? Yes Yes Yes 02/07/23 10:43 Wound Center Nurse 2 #1- R HEEL -Time 10:43 -Correct Patient Yes -Correct Side, Site, Position Yes -Correct Procedure Yes -Procedure Performed Yes -Type of Procedure Debridement -Clinical Debridement Subcutaneous -Tissue Removed Subcutaneous -Post Debridement (cm) - Length 4.5 -Post Debridement (cm) - Width 4.5 -Post Debridement (cm) - Depth 0.3 -Total Square (Post) (cm) 20.25 -Area of Debridement (cm) - Length 4.5 -Area of Debridement (cm) - Width 4.5 -Total Square (Area) (cm) 20.25 -Tunneling No -Undermining/Tunneling No -Circular Undermining No -Wound/Ulcer Outcome Not Healed -Ulcer Cleansing Rinsed/ Irrigated with Saline -Foul Odor after Cleansing No -Bioengineered Tissue No -Bleeding Controlled with Pressure -Treatment Response Procedure Tolerated Well -Offloading Yes -Type of Offloading Total Contact Cast (TCC) - Right ($) -Debridement - Subq, 1st 20sq cm Yes -Debridement, SubQ, ea addt'l 20sq cm 1 or part thereof Pain Scale: 0-10 Numeric Is Patient Pain Free? Yes - Nurse 3 - General Ulcer D/C NN Start: 01/17/23 10:27 Freq: Status: Active Protocol: Activity Type Activity Date Activity User E-sign Co-sign Detail Recorded Client Recorded Date Recorded By Document 01/17/23 11:12 DL [id number] 01/17/23 11:14 DL Document 01/24/23 07:00 PL [id number] 01/25/23 07:01 PL Document 01/31/23 11:48 AK [id number] 01/31/23 11:49 AK Document 02/07/23 12:55 RB [id number] 02/07/23 12:57 RB 01/17/23 01/24/23 01/31/23 11:12 07:00 11:48 Wound Care Center Nurse 3 #1- R HEEL -Ulcer Cleansing Soap and Water Rinsed/ Rinsed/ Irrigated with Irrigated with Saline Saline -Foul Odor after Cleansing No No No -Negative Pressure Wound Therapy N/A -Primary Dressing Applied Promogran Magalis Matter -Other Dressing aquacel ex ABD own magalis; nurses hat -Primary Dressing Covered/Secured with Dry Gauze & Dry Gauze & Roll Gauze Roll Gauze, Secured with Tape -Other Covering foam/TCC -Promogran Magalis Matter 1 Right -Lotion applied to leg before No compression wrap -Tubular Bandage Single Layer Double Layer Double Layer -Size of Tubigrip Used Size E Size E Size F -Size E ($) 1 4 -Size F ($) 2 -Other TCC Treatment Response Procedure Tolerated Well Pain Scale: 0-10 Numeric Is Patient Pain Free? Yes Yes Yes WC - Visit Discharge Discharge Condition Stable Stable Stable Ambulatory Status Ambulatory Walker Ambulatory, Walker Transportation Private Auto Private Auto Private Auto Medication Reconcilliation completed & Yes provided to patient/care provider Clinical Summary of Care Provided Yes Notes: TCC #3 02/07/23 12:55 Wound Care Center Nurse 3 #1- R HEEL -Ulcer Cleansing -Foul Odor after Cleansing -Negative Pressure Wound Therapy -Primary Dressing Applied -Other Dressing silvercell, foam then primary layer of TCC size 3 -Primary Dressing Covered/Secured with -Other Covering -Promogran Magalis Matter Right -Lotion applied to leg before compression wrap -Tubular Bandage Single Layer -Size of Tubigrip Used Size F -Size E ($) -Size F ($) 1 -Other under TCC per Carolin GATE OPERATOR orders Treatment Response Procedure Tolerated Well Pain Scale: 0-10 Numeric Is Patient Pain Free? Yes WC - Visit Discharge Discharge Condition Stable Ambulatory Status Wheelchair Transportation Private Auto Medication Reconcilliation completed & No provided to patient/care provider Clinical Summary of Care Provided Yes Notes: Assessment/Plan Assessment/Plan (1) Pressure ulcer of right heel, stage 3: CODE(S): L89.613 - Pressure ulcer of right heel, stage 3 (2) 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 He was approved for Epicord/Epifix to this ulcer. He has received 10 application total (Epicord 7 applications, Epifix #3) He has shown improvement in his ulcer with off loading with TCC. Offloading: He is amendable to have a total contact cast applied today and verbal consent was obtained.? This was applied according to standard protocol in a neutral position a well-padded manner.? He tolerated this well.? To keep clean, dry, and intact until follow-up visit. He was encouraged to only walk with a total contact cast while in the cast boot.? He was also instructed to not get the cast wet and to shower using cast bag.? He voices understanding of this. I discussed with him that he will not be able to visualize for signs and symptoms of infection while he is in a total contact cast.? I did discuss the signs and symptoms of infection today.? Informed him if he notices any redness moving up the leg, continued feeling of oozing, increasing odor, increasing pain, or if he experiences any fever greater than 101 degree, nausea, vomiting, or chills that he is to report straight to the ED for removal of the total contact cast for evaluation as these are signs of progressing infection.? He voices understanding of this today. Offloading: Will hold off on TCC again this week due to the pressure from his fall and to do daily dressing changes. Place Double tubigrip and post-op shoe. A wound culture was obtained 08/30/22 which was positive for VRE, Kocuria kristinae, and Corynebacterium striatum completed Linezolid. Encouraged increase protein intake with low carbs to help with blood sugars and wound healing. He is on Doxycycline as suppressive treatment since he had his left knee replaced, this is prescribed by Orthopaedics. Follow up one week. Call or come in sooner if develop any concerns.
== END 2023-02-09 23:59 | disposition home or self-care (01) ==
LOC: WC 10:30
PROVIDERS: PCP Internal Medicine; Visit Provider Nurse Practitioner Family
DX: L89.613 Pressure ulcer of right heel, stage 3 (principal); E11.42 Type 2 diabetes mellitus with diabetic polyneuropathy; Z79.4 Long term (current) use of insulin; I10 Essential (primary) hypertension; R60.0 Localized edema; E78.00 Pure hypercholesterolemia, unspecified; I89.0 Lymphedema, not elsewhere classified; Z79.82 Long term (current) use of aspirin; Z79.01 Long term (current) use of anticoagulants; Z79.899 Other long term (current) drug therapy; Z86.711 Personal history of pulmonary embolism; Z96.652 Presence of left artificial knee joint
CPT/HCPCS: 11042; 11045; 29445

== ENCOUNTER 2023-03-07 11:00 | Outpatient (RCR) | payer MEDICARE, BC, SELFPAY ==
[2023-02-10 00:49] VITALS: BP 175/86; PULSE 75; RESP 22; TEMP 36.6; BMI 46.5
[2023-02-14 09:24] VITALS: PULSE 90; RESP 18; TEMP 37; BMI 46.5
--- NOTE | 2023-02-14 11:04 | PCM.WC.PN ---
History of Present Illness Date of Service: 02/14/23 Chief Complaint: Right heel ulcer History of Wound: 67 year old male presents to the wound center for evaluation of his right heal ulcer. It started as a a pressure ulcer in February when he he was in TCU and it healed. It then became a blister right before his Left TKR surgery. He had his left knee replaced 07/14/22 at [facility]. 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 He also has a history of diabetes, HTN, lymphedema, hypercholesterolemia and PE that he is on Xerelto. He currently has home health. Wound culture obtained on 08/30/22 which are positive for VRE, Kocuria kristinae and Corynebacterium striatum. He will completed the Linezolid. Foot xray 09/27/22 - Osteopenia with diffuse osteoarthritic changes. Diffuse soft tissue swelling with ossification of the distal Achilles tendon. No acute abnormality or evidence of erosive changes. Wound care - He has been approved for Epicord and Epifix and has received 10 applications total. Aquacel-Ag covered by gauze. He denies any fever, chills, nausea and vomiting. Progress of Wound: His right heel ulcer has improved this week with wearing TCC this past week. Objective Data Objective Data Vital Signs: Vital Signs Temp Pulse Resp BP 98.6 F 90 18 175/86 H 02/14/23 09:24 02/14/23 09:24 02/14/23 09:24 02/10/23 00:49 Weight: 343 lb Body Mass Index (BMI) 46.5 Charges/Coding Procedures Integumentary 111xxx-113xx: 42029 [place] subq tissue 20 sq cm/< Procedures Musculoskeletal 20xxx-29xxx: 59662 APPLY RIGID LEG CAST (total contact cast) Debridement Note Debridement Note Wound debrided: Right posterior lateral heel Laterality: Right Wound Grade/Stage: Gomez stage III Type of Debridement: Excisional debridement Anesthesia Used: 5% Lidocaine Gel Depth: Down to and including healthy tissue and in the subcutaneous layer Percentage of wound debrided: 100 Instrument Used: 5mm curette Tissue Removed: Devitalized subcutaneous, biofilm, slough Severity: Fat Layer Exposed Amount of bleeding with debridement: Mild Bleeding Controlled with: Pressure and Compression and gauze Patient tolerated procedure: Patient tolerated procedure well Post-Debridement Measurements and Additional Note: Post-Debridement Measurements/Treatment - Nurse 1 - General Ulcer Assessment Start: 02/14/23 09:24 Freq: Status: Active Protocol: NELL Activity Type Activity Date Activity User E-sign Co-sign Detail Recorded Client Recorded Date Recorded By Document 02/14/23 09:24 [id number] 02/14/23 09:38 02/14/23 09:24 - Today's Visit Information Type of service Follow-up Visit (Physician/REFRIGERATION PERSON ) Arrival Mode Ambulatory, Walker Transfer Assistance None Patient Identification Verified (Name & Yes ) Patient Requires Transmission-Based No Precautions Safety Precautions NA Finger Stick Blood Sugar(mg/dl) (if 113 indicated): Blood Sugar Stated by Patient Height and Weight Body Mass Index (BMI) 46.5 BMI Classification Obese Vital Signs Temperature (97.8 F-99.1 F) 98.6 F Temperature Source Temporal Pulse Rate (60-100) 90 Respiratory Rate (12-18) 18 History Since Last Visit- (Skip if this is Patient's initial visit) Have you changed medications since your No last visit? Any new allergies or adverse reactions No Had a fall/change in ADL's that may No increase risk of falls Signs or symptoms of abuse and/or No neglect since last visit Have you been in the hospital since your No last visit? Has dressing in place as prescribed Yes Has compression in place as prescribed N/A Has offloadiing in place as prescribed Yes Pain Scale: 0-10 Numeric Is Patient Pain Free? Yes - Nurse 1 - General Ulcer Measurement Start: 02/14/23 09:24 Freq: Status: Active Protocol: Activity Type Activity Date Activity User E-sign Co-sign Detail Recorded Client Recorded Date Recorded By Document 02/14/23 09:24 [id number] 02/14/23 09:38 02/14/23 09:24 Wound Center Nurse 1 #1- R HEEL -Combined with other wound No -Current Size (cm) - Length 2.0 -Current Size (cm) - Width 0.5 -Current Size (cm) - Depth 0.1 -Total Square Cm 1.00 -Photo Taken No -Epithelialization Medium 34-66% -Tunneling No -Undermining/Tunneling No -Circular Undermining No -Exudate Amt Medium -Exudate Type Serosanguineous -Granulation Amt Medium (34-66%) -Granulation Quality [place] -Slough/Fibrin Yes -Necrosis Amt Medium (34-66%) -Necrotic Tissue Type Adherent Slough -Temperature (Lianna-wound Skin No Abnormality Appearance) (Pt Warm) -Tenderness on Palpation (Lianna-wound No Skin Appearance) -Ulcer Cleansing Rinsed/ Irrigated with Saline -Foul Odor after Cleansing Yes, Due to Product Use -Anesthetic Used 5% Lidocaine Gel LAM - Nurse 2 - General Ulcer CM Notes Start: 02/14/23 09:24 Freq: Status: Active Protocol: Activity Type Activity Date Activity User E-sign Co-sign Detail Recorded Client Recorded Date Recorded By Document 02/14/23 09:50 YASMINE [id number] 02/14/23 09:53 YASMINE 02/14/23 09:50 Wound Center Nurse 2 -Time 09:51 -Correct Patient Yes -Correct Side, Site, Position Yes -Correct Procedure Yes -Procedure Performed Yes -Type of Procedure Debridement -Clinical Debridement Subcutaneous -Tissue Removed Subcutaneous -Post Debridement (cm) - Length 4.3 -Post Debridement (cm) - Width 1.4 -Post Debridement (cm) - Depth 0.3 -Total Square (Post) (cm) 6.02 -Area of Debridement (cm) - Length 4.3 -Area of Debridement (cm) - Width 1.4 -Total Square (Area) (cm) 6.02 -Tunneling No -Undermining/Tunneling No -Circular Undermining No -Wound/Ulcer Outcome Not Healed -Ulcer Cleansing Rinsed/ Irrigated with Saline -Foul Odor after Cleansing No -Bioengineered Tissue No -Bleeding Controlled with Pressure -Treatment Response Procedure Tolerated Well -Offloading Yes -Type of Offloading Total Contact Cast (TCC) - Right ($) -Debridement - Subq, 1st 20sq cm Yes Pain Scale: 0-10 Numeric Is Patient Pain Free? Yes - Nurse 3 - General Ulcer D/C NN Start: 02/14/23 09:24 Freq: Status: Active Protocol: Activity Type Activity Date Activity User E-sign Co-sign Detail Recorded Client Recorded Date Recorded By Document 02/14/23 09:50 YASMINE [id number] 02/14/23 09:53 02/14/23 09:50 Is Patient Pain Free? 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 He was approved for Epicord/Epifix to this ulcer. He has received 10 application total (Epicord 7 applications, Epifix #3) He has shown improvement in his ulcer with off loading with TCC. Wound care - Moistened Silver alginate topped with foam dressing. Offloading: He is amendable to have a total contact cast applied today and verbal consent was obtained.? This was applied according to standard protocol in a neutral position a well-padded manner.? He tolerated this well.? To keep clean, dry, and intact until follow-up visit. He was encouraged to only walk with a total contact cast while in the cast boot.? He was also instructed to not get the cast wet and to shower using cast bag.? He voices understanding of this. I discussed with him that he will not be able to visualize for signs and symptoms of infection while he is in a total contact cast.? I did discuss the signs and symptoms of infection today.? Informed him if he notices any redness moving up the leg, continued feeling of oozing, increasing odor, increasing pain, or if he experiences any fever greater than 101 degree, nausea, vomiting, or chills that he is to report straight to the ED for removal of the total contact cast for evaluation as these are signs of progressing infection.? He voices understanding of this today. A wound culture was obtained 08/30/22 which was positive for VRE, Kocuria kristinae, and Corynebacterium striatum completed Linezolid. Encouraged increase protein intake with low carbs to help with blood sugars and wound healing. He is on Doxycycline as suppressive treatment since he had his left knee replaced, this is prescribed by Orthopaedics. Follow up one week. Call or come in sooner if develop any concerns.
[2023-02-21 10:24] VITALS: BP 166/107; PULSE 84; RESP 18; TEMP 36.4; BMI 46.5
--- NOTE | 2023-02-21 12:00 | PCM.WC.PN ---
History of Present Illness Date of Service: 02/21/23 Chief Complaint: Right heel ulcer History of Wound: 67 year old male presents to the wound center for evaluation of his right heal ulcer. It started as a a pressure ulcer in February when he he was in TCU and it healed. It then became a blister right before his Left TKR surgery. He had his left knee replaced 07/14/22 at [facility]. 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 He also has a history of diabetes, HTN, lymphedema, hypercholesterolemia and PE that he is on Xerelto. He currently has home health. Wound culture obtained on 08/30/22 which are positive for VRE, Kocuria kristinae and Corynebacterium striatum. He will completed the Linezolid. Foot xray 09/27/22 - Osteopenia with diffuse osteoarthritic changes. Diffuse soft tissue swelling with ossification of the distal Achilles tendon. No acute abnormality or evidence of erosive changes. Wound care - He has been approved for Epicord and Epifix and has received 10 applications total. Aquacel-Ag covered by gauze. He denies any fever, chills, nausea and vomiting. Progress of Wound: His right heel ulcer has improved this week with wearing TCC this past week. Objective Data Objective Data Vital Signs: Vital Signs Temp Pulse Resp BP 97.6 F L 84 18 166/107 H 02/21/23 10:24 02/21/23 10:24 02/21/23 10:24 02/21/23 10:24 Weight: 343 lb Body Mass Index (BMI) 46.5 Charges/Coding Procedures Integumentary 111xxx-113xx: 57673 [place] subq tissue 20 sq cm/< Procedures Musculoskeletal 20xxx-29xxx: 52533 APPLY RIGID LEG CAST (total contact cast) Debridement Note Debridement Note Wound debrided: Right posterior lateral heel Laterality: Right Wound Grade/Stage: Gomez stage III Type of Debridement: Excisional debridement Anesthesia Used: 5% Lidocaine Gel Depth: Down to and including healthy tissue and in the subcutaneous layer Percentage of wound debrided: 100 Instrument Used: 5mm curette Tissue Removed: Devitalized subcutaneous, biofilm, slough Severity: Fat Layer Exposed Amount of bleeding with debridement: Mild Bleeding Controlled with: Pressure and Compression and gauze Patient tolerated procedure: Patient tolerated procedure well Post-Debridement Measurements and Additional Note: Post-Debridement Measurements/Treatment WC - Nurse 1 - General Ulcer Assessment Start: 02/14/23 09:24 Freq: Status: Active Protocol: NELL Activity Type Activity Date Activity User E-sign Co-sign Detail Recorded Client Recorded Date Recorded By Document 02/14/23 09:24 PL [id number] 02/14/23 09:38 PL Document 02/21/23 10:24 PL [id number] 02/21/23 10:27 PL 02/14/23 02/21/23 09:24 10:24 WC - Today's Visit Information Type of service Follow-up Visit Follow-up Visit (Physician/INDUSTRIAL PROPERTY APPRAISER (Physician/INDUSTRIAL PROPERTY APPRAISER ) ) Arrival Mode Ambulatory, Walker Walker Transfer Assistance None None Patient Identification Verified (Name & Yes Yes ) Patient Requires Transmission-Based No No Precautions Safety Precautions NA NA Finger Stick Blood Sugar(mg/dl) (if 113 indicated): Blood Sugar Stated by Patient Height and Weight Body Mass Index (BMI) 46.5 46.5 BMI Classification Obese Obese Vital Signs Temperature (97.8 F-99.1 F) 98.6 F 97.6 F L Temperature Source Temporal Temporal Pulse Rate (60-100) 90 84 Respiratory Rate (12-18) 18 18 Blood Pressure (90/60-120/80) 166/107 H Blood Pressure Mean (mm Hg) 126 History Since Last Visit- (Skip if this is Patient's initial visit) Have you changed medications since your No No last visit? Any new allergies or adverse reactions No No Had a fall/change in ADL's that may No No increase risk of falls Signs or symptoms of abuse and/or No No neglect since last visit Have you been in the hospital since your No No last visit? Has dressing in place as prescribed Yes Yes Has compression in place as prescribed N/A N/A Has offloadiing in place as prescribed Yes Yes Experienced any changes in pain level or No management Pain Scale: 0-10 Numeric Is Patient Pain Free? Yes Yes LAM - Nurse 1 - General Ulcer Measurement Start: 02/14/23 09:24 Freq: Status: Active Protocol: Activity Type Activity Date Activity User E-sign Co-sign Detail Recorded Client Recorded Date Recorded By Document 02/14/23 09:24 PL [id number] 02/14/23 09:38 PL 02/14/23 09:24 Wound Center Nurse 1 #1- R HEEL -Combined with other wound No -Current Size (cm) - Length 2.0 -Current Size (cm) - Width 0.5 -Current Size (cm) - Depth 0.1 -Total Square Cm 1.00 -Photo Taken No -Epithelialization Medium 34-66% -Tunneling No -Undermining/Tunneling No -Circular Undermining No -Exudate Amt Medium -Exudate Type Serosanguineous -Granulation Amt Medium (34-66%) -Granulation Quality [place] -Slough/Fibrin Yes -Necrosis Amt Medium (34-66%) -Necrotic Tissue Type Adherent Slough -Temperature (Lianna-wound Skin No Abnormality Appearance) (Pt Warm) -Tenderness on Palpation (Lianna-wound No Skin Appearance) -Ulcer Cleansing Rinsed/ Irrigated with Saline -Foul Odor after Cleansing Yes, Due to Product Use -Anesthetic Used 5% Lidocaine Gel WC - Nurse 2 - General Ulcer CM Notes Start: 02/14/23 09:24 Freq: Status: Active Protocol: Activity Type Activity Date Activity User E-sign Co-sign Detail Recorded Client Recorded Date Recorded By Document 02/14/23 09:50 [id number] 02/14/23 09:53 Document 02/21/23 10:48 [id number] 02/21/23 10:51 02/14/23 02/21/23 09:50 10:48 Wound Center Nurse 2 #1- R HEEL -Time 09:51 10:50 -Correct Patient Yes Yes -Correct Side, Site, Position Yes Yes -Correct Procedure Yes Yes -Procedure Performed Yes Yes -Type of Procedure Debridement Debridement -Clinical Debridement Subcutaneous Subcutaneous -Tissue Removed Subcutaneous Subcutaneous -Post Debridement (cm) - Length 4.3 4.2 -Post Debridement (cm) - Width 1.4 1.0 -Post Debridement (cm) - Depth 0.3 0.3 -Total Square (Post) (cm) 6.02 4.20 -Area of Debridement (cm) - Length 4.3 4.2 -Area of Debridement (cm) - Width 1.4 1.0 -Total Square (Area) (cm) 6.02 4.20 -Tunneling No No -Undermining/Tunneling No No -Circular Undermining No No -Wound/Ulcer Outcome Not Healed Not Healed -Ulcer Cleansing Rinsed/ Rinsed/ Irrigated with Irrigated with Saline Saline -Foul Odor after Cleansing No No -Bioengineered Tissue No No -Bleeding Controlled with Pressure Pressure -Treatment Response Procedure Procedure Tolerated Well Tolerated Well -Offloading Yes Yes -Type of Offloading Total Contact Total Contact Cast (TCC) - Cast (TCC) - Right ($) Right ($) -Debridement - Subq, 1st 20sq cm Yes Yes Pain Scale: 0-10 Numeric Is Patient Pain Free? Yes Yes WC - Nurse 3 - General Ulcer D/C NN Start: 02/14/23 09:24 Freq: Status: Active Protocol: Activity Type Activity Date Activity User E-sign Co-sign Detail Recorded Client Recorded Date Recorded By Document 02/14/23 09:50 YASMINE [id number] 02/14/23 09:53 02/14/23 09:50 Is Patient Pain Free? 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 He was approved for Epicord/Epifix to this ulcer. He has received 10 application total (Epicord 7 applications, Epifix #3) with improvement in his ulcer. He has shown improvement in his ulcer with off loading with TCC. Wound care - Moistened Silver alginate topped with foam dressing. Offloading: He is amendable to have a total contact cast applied today and verbal consent was obtained.? This was applied according to standard protocol in a neutral position a well-padded manner.? He tolerated this well.? To keep clean, dry, and intact until follow-up visit. He was encouraged to only walk with a total contact cast while in the cast boot.? He was also instructed to not get the cast wet and to shower using cast bag.? He voices understanding of this. I discussed with him that he will not be able to visualize for signs and symptoms of infection while he is in a total contact cast.? I did discuss the signs and symptoms of infection today.? Informed him if he notices any redness moving up the leg, continued feeling of oozing, increasing odor, increasing pain, or if he experiences any fever greater than 101 degree, nausea, vomiting, or chills that he is to report straight to the ED for removal of the total contact cast for evaluation as these are signs of progressing infection.? He voices understanding of this today. A wound culture was obtained 08/30/22 which was positive for VRE, Kocuria kristinae, and Corynebacterium striatum completed Linezolid. Encouraged increase protein intake with low carbs to help with blood sugars and wound healing. He is on Doxycycline as suppressive treatment since he had his left knee replaced, this is prescribed by Orthopaedics. Follow up one week. Call or come in sooner if develop any concerns.
[2023-02-28 10:28] VITALS: BP 149/78; PULSE 84; RESP 24; TEMP 36.6; BMI 46.5
--- NOTE | 2023-02-28 11:43 | PN.PCM_ITS ---
History of Present Illness Date of Service: 02/28/23 Chief Complaint: Right heel ulcer History of Wound: 67 year old male presents to the wound center for evaluation of his right heal ulcer. It started as a a pressure ulcer in February when he he was in TCU and it healed. It then became a blister right before his Left TKR surgery. He had his left knee replaced 07/14/22 at [facility]. 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 He also has a history of diabetes, HTN, lymphedema, hypercholesterolemia and PE that he is on Xerelto. He currently has home health. Wound culture obtained on 08/30/22 which are positive for VRE, Kocuria kristinae and Corynebacterium striatum. He will completed the Linezolid. Foot xray 09/27/22 - Osteopenia with diffuse osteoarthritic changes. Diffuse soft tissue swelling with ossification of the distal Achilles tendon. No acute abnormality or evidence of erosive changes. Wound care - He has been approved for Epicord and Epifix and has received 10 applications total. Aquacel-Ag covered by gauze. He denies any fever, chills, nausea and vomiting. Progress of Wound: His right heel ulcer has improved this week, it is smaller in size. Wearing the TCC has helped make improvements in the wound healing. Objective Data Objective Data Vital Signs: Vital Signs Temp Pulse Resp BP 98 F 84 24 H 149/78 H 02/28/23 10:28 02/28/23 10:28 02/28/23 10:28 02/28/23 10:28 Weight: 343 lb Body Mass Index (BMI) 46.5 Charges/Coding Procedures Integumentary 111xxx-113xx: 23873 [place] subq tissue 20 sq cm/< Procedures Musculoskeletal 20xxx-29xxx: 28810 APPLY RIGID LEG CAST (total contact cast) Debridement Note Debridement Note Wound debrided: Right posterior lateral heel Laterality: Right Wound Grade/Stage: Gomez stage III Type of Debridement: Excisional debridement Anesthesia Used: 5% Lidocaine Gel Depth: Down to and including healthy tissue and in the subcutaneous layer Percentage of wound debrided: 100 Instrument Used: 3mm curette Tissue Removed: Devitalized subcutaneous, biofilm, slough Severity: Fat Layer Exposed Amount of bleeding with debridement: Mild Bleeding Controlled with: Pressure, Compression and gauze and Silver Nitrate Patient tolerated procedure: Patient tolerated procedure well Post-Debridement Measurements and Additional Note: Post-Debridement Measurements/Treatment - Nurse 1 - General Ulcer Assessment Start: 02/14/23 09:24 Freq: Status: Active Protocol: NELL Activity Type Activity Date Activity User E-sign Co-sign Detail Recorded Client Recorded Date Recorded By Document 02/14/23 09:24 PL [id number] 02/14/23 09:38 PL Document 02/21/23 10:24 PL [id number] 02/21/23 10:27 PL Document 02/28/23 10:28 DL [id number] 02/28/23 10:39 DL 02/14/23 02/21/23 02/28/23 09:24 10:24 10:28 - Today's Visit Information Type of service Follow-up Visit Follow-up Visit Follow-up Visit (Physician/UNDERGROUND DISTRIBUTION ENGINEER (Physician/UNDERGROUND DISTRIBUTION ENGINEER (Physician/UNDERGROUND DISTRIBUTION ENGINEER ) ) ) Arrival Mode Ambulatory, Walker Ambulatory, Walker Walker Transfer Assistance None None None Patient Identification Verified (Name & Yes Yes Yes ) Patient Requires Transmission-Based No No No Precautions Safety Precautions NA NA Finger Stick Blood Sugar(mg/dl) (if 113 115 indicated): Blood Sugar Stated by Stated by Patient Patient Height and Weight Body Mass Index (BMI) 46.5 46.5 46.5 BMI Classification Obese Obese Obese Vital Signs Temperature (97.8 F-99.1 F) 98.6 F 97.6 F L 98 F Temperature Source Temporal Temporal Temporal Pulse Rate (60-100) 90 84 84 Pulse Location Monitor Respiratory Rate (12-18) 18 18 24 H Respiratory rate source Observation Blood Pressure (90/60-120/80) 166/107 H 149/78 H Blood Pressure Mean (mm Hg) 126 101 Source Monitor History Since Last Visit- (Skip if this is Patient's initial visit) Have you changed medications since your No No No last visit? Any new allergies or adverse reactions No No No Had a fall/change in ADL's that may No No No increase risk of falls Signs or symptoms of abuse and/or No No No neglect since last visit Have you been in the hospital since your No No No last visit? Has dressing in place as prescribed Yes Yes Yes Has compression in place as prescribed N/A N/A N/A Has offloadiing in place as prescribed Yes Yes Yes Experienced any changes in pain level or No No management Right Footwear Total Contact Cast Pain Scale: 0-10 Numeric Is Patient Pain Free? Yes Yes Yes - Nurse 1 - General Ulcer Measurement Start: 02/14/23 09:24 Freq: Status: Active Protocol: Activity Type Activity Date Activity User E-sign Co-sign Detail Recorded Client Recorded Date Recorded By Document 02/14/23 09:24 PL [id number] 02/14/23 09:38 PL Document 02/28/23 10:28 DL [id number] 02/28/23 10:39 DL 02/14/23 02/28/23 09:24 10:28 Wound Center Nurse 1 #1- R HEEL -Combined with other wound No -Current Size (cm) - Length 2.0 0.8 -Current Size (cm) - Width 0.5 3.8 -Current Size (cm) - Depth 0.1 0.2 -Total Square Cm 1.00 3.04 -Photo Taken No -Epithelialization Medium 34-66% -Tunneling No -Undermining/Tunneling No -Circular Undermining No -Exudate Amt Medium Medium -Exudate Type Serosanguineous Serosanguineous -Wound Margin Thickened -Granulation Amt Medium (34-66%) Medium (34-66%) -Granulation Quality [place] Red -Slough/Fibrin Yes -Necrosis Amt Medium (34-66%) Small (1-33%) -Necrotic Tissue Type Adherent Slough Adherent Slough -Structure Exposed N/A -Texture (Lianna-wound Skin Appearance) Scarring -Moisture (Lianna-wound Skin Appearance) Maceration -Color (Lianna-wound Skin Appearance) No Abnormality -Temperature (Lianna-wound Skin No Abnormality No Abnormality Appearance) (Pt Warm) (Pt Warm) -Tenderness on Palpation (Lianna-wound No Skin Appearance) -Ulcer Cleansing Rinsed/ Soap and Water Irrigated with Saline -Foul Odor after Cleansing Yes, Due to No Product Use -Anesthetic Used 5% Lidocaine 5% Lidocaine Gel Gel WC - Nurse 2 - General Ulcer CM Notes Start: 02/14/23 09:24 Freq: Status: Active Protocol: Activity Type Activity Date Activity User E-sign Co-sign Detail Recorded Client Recorded Date Recorded By Document 02/14/23 09:50 [id number] 02/14/23 09:53 Document 02/21/23 10:48 [id number] 02/21/23 10:51 Document 02/28/23 11:06 [id number] 02/28/23 11:09 02/14/23 02/21/23 02/28/23 09:50 10:48 11:06 Wound Center Nurse 2 #1- R HEEL -Time 09:51 10:50 11:06 -Correct Patient Yes Yes Yes -Correct Side, Site, Position Yes Yes Yes -Correct Procedure Yes Yes Yes -Procedure Performed Yes Yes Yes -Type of Procedure Debridement Debridement Debridement -Clinical Debridement Subcutaneous Subcutaneous Subcutaneous -Tissue Removed Subcutaneous Subcutaneous Subcutaneous -Post Debridement (cm) - Length 4.3 4.2 3.7 -Post Debridement (cm) - Width 1.4 1.0 0.8 -Post Debridement (cm) - Depth 0.3 0.3 0.2 -Total Square (Post) (cm) 6.02 4.20 2.96 -Area of Debridement (cm) - Length 4.3 4.2 3.7 -Area of Debridement (cm) - Width 1.4 1.0 0.8 -Total Square (Area) (cm) 6.02 4.20 2.96 -Tunneling No No No -Undermining/Tunneling No No No -Circular Undermining No No No -Wound/Ulcer Outcome Not Healed Not Healed Not Healed -Ulcer Cleansing Rinsed/ Rinsed/ Rinsed/ Irrigated with Irrigated with Irrigated with Saline Saline Saline -Foul Odor after Cleansing No No No -Bioengineered Tissue No No No -Bleeding Controlled with Pressure Pressure Pressure,Silver Nitrate -Treatment Response Procedure Procedure Procedure Tolerated Well Tolerated Well Tolerated Well -Offloading Yes Yes Yes -Type of Offloading Total Contact Total Contact Total Contact Cast (TCC) - Cast (TCC) - Cast (TCC) - Right ($) Right ($) Right ($) -Assistive Device(s) Walker -Debridement - Subq, 1st 20sq cm Yes Yes Yes Pain Scale: 0-10 Numeric Is Patient Pain Free? Yes Yes Yes WC - Nurse 3 - General Ulcer D/C NN Start: 02/14/23 09:24 Freq: Status: Active Protocol: Activity Type Activity Date Activity User E-sign Co-sign Detail Recorded Client Recorded Date Recorded By Document 02/14/23 09:50 [id number] 02/14/23 09:53 Document 02/21/23 13:40 PL [id number] 02/21/23 13:40 PL 02/14/23 02/21/23 09:50 13:40 Pain Scale: 0-10 Numeric Is Patient Pain Free? Yes Yes Teaching: Wound Center *Pressure Ulcers -Person Taught Patient,Family -Teaching Method Discussion, Demonstration -Response to teaching Return demonstration, Verbalize understanding Wound Care Center Nurse 3 #1- R HEEL -Ulcer Cleansing Rinsed/ Irrigated with Saline -Foul Odor after Cleansing No -Primary Dressing Applied Silvercel -Silvercel 1 WC - Visit Discharge Discharge Condition Stable Ambulatory Status Ambulatory, Walker Transportation Private Auto Assessment/Plan Assessment/Plan (1) Pressure ulcer of right heel, stage 3: CODE(S): L89.613 - Pressure ulcer of right heel, stage 3 (2) 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 He was approved for Epicord/Epifix to this ulcer. He has received 10 ap plication total (Epicord 7 applications, Epifix #3) with improvement in his ulcer. He has shown improvement in his ulcer with off loading with TCC. Wound care - Moistened Silver alginate topped with foam dressing. Offloading: He is amendable to have a total contact cast applied today and verbal consent was obtained.? This was applied according to standard protocol in a neutral position a well-padded manner.? He tolerated this well.? To keep clean, dry, and intact until follow-up visit. He was encouraged to only walk with a total contact cast while in the cast boot.? He was also instructed to not get the cast wet and to shower using cast bag.? He voices understanding of this. I discussed with him that he will not be able to visualize for signs and symptoms of infection while he is in a total contact cast.? I did discuss the signs and symptoms of infection today.? Informed him if he notices any redness moving up the leg, continued feeling of oozing, increasing odor, increasing pain, or if he experiences any fever greater than 101 degree, nausea, vomiting, or chills that he is to report straight to the ED for removal of the total contact cast for evaluation as these are signs of progressing infection.? He voices understanding of this today. A wound culture was obtained 08/30/22 which was positive for VRE, Kocuria kristinae, and Corynebacterium striatum completed Linezolid. Encouraged increase protein intake with low carbs to help with blood sugars and wound healing. He is on Doxycycline as suppressive treatment since he had his left knee replaced, this is prescribed by Orthopaedics. Follow up one week. Call or come in sooner if develop any concerns.
--- NOTE | 2023-03-07 12:18 | PCM.WC.PN ---
History of Present Illness Date of Service: 03/07/23 Chief Complaint: Right heel ulcer History of Wound: 67 year old male presents to the wound center for evaluation of his right heal ulcer. It started as a a pressure ulcer in February when he he was in TCU and it healed. It then became a blister right before his Left TKR surgery. He had his left knee replaced 07/14/22 at [facility]. 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 He also has a history of diabetes, HTN, lymphedema, hypercholesterolemia and PE that he is on Xerelto. He currently has home health. Wound culture obtained on 08/30/22 which are positive for VRE, Kocuria kristinae and Corynebacterium striatum. He will completed the Linezolid. Foot xray 09/27/22 - Osteopenia with diffuse osteoarthritic changes. Diffuse soft tissue swelling with ossification of the distal Achilles tendon. No acute abnormality or evidence of erosive changes. Wound care - He has been approved for Epicord and Epifix and has received 10 applications total. Aquacel-Ag covered by gauze. He denies any fever, chills, nausea and vomiting. Progress of Wound: His right heel ulcer has improved this week, it is smaller in size. Wearing the TCC has helped make improvements in the wound healing. Left leg with increased edema, will start double tubigrip. Objective Data Objective Data Vital Signs: Vital Signs Temp Pulse Resp BP 98 F 84 24 H 149/78 H 02/28/23 10:28 02/28/23 10:28 02/28/23 10:28 02/28/23 10:28 Weight: 343 lb Body Mass Index (BMI) 46.5 Charges/Coding Procedures Integumentary 111xxx-113xx: 96139 [place] subq tissue 20 sq cm/< Procedures Musculoskeletal 20xxx-29xxx: 61012 APPLY RIGID LEG CAST (total contact cast) Debridement Note Debridement Note Wound debrided: Right posterior lateral heel Laterality: Right Wound Grade/Stage: Gomez stage III Type of Debridement: Excisional debridement Anesthesia Used: 5% Lidocaine Gel Depth: Down to and including healthy tissue and in the subcutaneous layer Percentage of wound debrided: 100 Instrument Used: 5mm curette Tissue Removed: Devitalized subcutaneous, biofilm, slough Severity: Fat Layer Exposed Amount of bleeding with debridement: Mild Bleeding Controlled with: Pressure and Compression and gauze Patient tolerated procedure: Patient tolerated procedure well Post-Debridement Measurements and Additional Note: Post-Debridement Measurements/Treatment WC - Nurse 1 - General Ulcer Assessment Start: 02/14/23 09:24 Freq: Status: Active Protocol: NELL Activity Type Activity Date Activity User E-sign Co-sign Detail Recorded Client Recorded Date Recorded By Document 02/14/23 09:24 PL [id number] 02/14/23 09:38 PL Document 02/21/23 10:24 PL [id number] 02/21/23 10:27 PL Document 02/28/23 10:28 DL [id number] 02/28/23 10:39 DL 02/14/23 02/21/23 02/28/23 09:24 10:24 10:28 - Today's Visit Information Type of service Follow-up Visit Follow-up Visit Follow-up Visit (Physician/ROOTER OPERATOR (Physician/ROOTER OPERATOR (Physician/ROOTER OPERATOR ) ) ) Arrival Mode Ambulatory, Walker Ambulatory, Walker Walker Transfer Assistance None None None Patient Identification Verified (Name & Yes Yes Yes ) Patient Requires Transmission-Based No No No Precautions Safety Precautions NA NA Finger Stick Blood Sugar(mg/dl) (if 113 115 indicated): Blood Sugar Stated by Stated by Patient Patient Height and Weight Body Mass Index (BMI) 46.5 46.5 46.5 BMI Classification Obese Obese Obese Vital Signs Temperature (97.8 F-99.1 F) 98.6 F 97.6 F L 98 F Temperature Source Temporal Temporal Temporal Pulse Rate (60-100) 90 84 84 Pulse Location Monitor Respiratory Rate (12-18) 18 18 24 H Respiratory rate source Observation Blood Pressure (90/60-120/80) 166/107 H 149/78 H Blood Pressure Mean (mm Hg) 126 101 Source Monitor History Since Last Visit- (Skip if this is Patient's initial visit) Have you changed medications since your No No No last visit? Any new allergies or adverse reactions No No No Had a fall/change in ADL's that may No No No increase risk of falls Signs or symptoms of abuse and/or No No No neglect since last visit Have you been in the hospital since your No No No last visit? Has dressing in place as prescribed Yes Yes Yes Has compression in place as prescribed N/A N/A N/A Has offloadiing in place as prescribed Yes Yes Yes Experienced any changes in pain level or No No management Right Footwear Total Contact Cast Pain Scale: 0-10 Numeric Is Patient Pain Free? Yes Yes Yes WC - Nurse 1 - General Ulcer Measurement Start: 02/14/23 09:24 Freq: Status: Active Protocol: Activity Type Activity Date Activity User E-sign Co-sign Detail Recorded Client Recorded Date Recorded By Document 02/14/23 09:24 PL [id number] 02/14/23 09:38 PL Document 02/28/23 10:28 DL [id number] 02/28/23 10:39 DL 02/14/23 02/28/23 09:24 10:28 Wound Center Nurse 1 #1- R HEEL -Combined with other wound No -Current Size (cm) - Length 2.0 0.8 -Current Size (cm) - Width 0.5 3.8 -Current Size (cm) - Depth 0.1 0.2 -Total Square Cm 1.00 3.04 -Photo Taken No -Epithelialization Medium 34-66% -Tunneling No -Undermining/Tunneling No -Circular Undermining No -Exudate Amt Medium Medium -Exudate Type Serosanguineous Serosanguineous -Wound Margin Thickened -Granulation Amt Medium (34-66%) Medium (34-66%) -Granulation Quality [place] Red -Slough/Fibrin Yes -Necrosis Amt Medium (34-66%) Small (1-33%) -Necrotic Tissue Type Adherent Slough Adherent Slough -Structure Exposed N/A -Texture (Lianna-wound Skin Appearance) Scarring -Moisture (Lianna-wound Skin Appearance) Maceration -Color (Lianna-wound Skin Appearance) No Abnormality -Temperature (Lianna-wound Skin No Abnormality No Abnormality Appearance) (Pt Warm) (Pt Warm) -Tenderness on Palpation (Lianna-wound No Skin Appearance) -Ulcer Cleansing Rinsed/ Soap and Water Irrigated with Saline -Foul Odor after Cleansing Yes, Due to No Product Use -Anesthetic Used 5% Lidocaine 5% Lidocaine Gel Gel WC - Nurse 2 - General Ulcer CM Notes Start: 02/14/23 09:24 Freq: Status: Active Protocol: Activity Type Activity Date Activity User E-sign Co-sign Detail Recorded Client Recorded Date Recorded By Document 02/14/23 09:50 [id number] 02/14/23 09:53 Document 02/21/23 10:48 [id number] 02/21/23 10:51 Document 02/28/23 11:06 [id number] 02/28/23 11:09 02/14/23 02/21/23 02/28/23 09:50 10:48 11:06 Wound Center Nurse 2 #1- R HEEL -Time 09:51 10:50 11:06 -Correct Patient Yes Yes Yes -Correct Side, Site, Position Yes Yes Yes -Correct Procedure Yes Yes Yes -Procedure Performed Yes Yes Yes -Type of Procedure Debridement Debridement Debridement -Clinical Debridement Subcutaneous Subcutaneous Subcutaneous -Tissue Removed Subcutaneous Subcutaneous Subcutaneous -Post Debridement (cm) - Length 4.3 4.2 3.7 -Post Debridement (cm) - Width 1.4 1.0 0.8 -Post Debridement (cm) - Depth 0.3 0.3 0.2 -Total Square (Post) (cm) 6.02 4.20 2.96 -Area of Debridement (cm) - Length 4.3 4.2 3.7 -Area of Debridement (cm) - Width 1.4 1.0 0.8 -Total Square (Area) (cm) 6.02 4.20 2.96 -Tunneling No No No -Undermining/Tunneling No No No -Circular Undermining No No No -Wound/Ulcer Outcome Not Healed Not Healed Not Healed -Ulcer Cleansing Rinsed/ Rinsed/ Rinsed/ Irrigated with Irrigated with Irrigated with Saline Saline Saline -Foul Odor after Cleansing No No No -Bioengineered Tissue No No No -Bleeding Controlled with Pressure Pressure Pressure,Silver Nitrate -Treatment Response Procedure Procedure Procedure Tolerated Well Tolerated Well Tolerated Well -Offloading Yes Yes Yes -Type of Offloading Total Contact Total Contact Total Contact Cast (TCC) - Cast (TCC) - Cast (TCC) - Right ($) Right ($) Right ($) -Assistive Device(s) Walker -Debridement - Subq, 1st 20sq cm Yes Yes Yes Pain Scale: 0-10 Numeric Is Patient Pain Free? Yes Yes Yes WC - Nurse 3 - General Ulcer D/C NN Start: 02/14/23 09:24 Freq: Status: Active Protocol: Activity Type Activity Date Activity User E-sign Co-sign Detail Recorded Client Recorded Date Recorded By Document 02/14/23 09:50 [id number] 02/14/23 09:53 Document 02/21/23 13:40 PL [id number] 02/21/23 13:40 PL Document 03/07/23 12:09 [facility] [id number] 03/07/23 12:10 [facility] 02/14/23 02/21/23 03/07/23 09:50 13:40 12:09 Pain Scale: 0-10 Numeric Is Patient Pain Free? Yes Yes Yes Teaching: Wound Center *Pressure Ulcers -Person Taught Patient,Family -Teaching Method Discussion, Demonstration -Response to teaching Return demonstration, Verbalize understanding Wound Care Center Nurse 3 #1- R HEEL -Ulcer Cleansing Rinsed/ Rinsed/ Irrigated with Irrigated with Saline Saline -Foul Odor after Cleansing No No -Primary Dressing Applied Silvercel Silvercel -Other Dressing AMD FOAM; DRSG AND TCC SIZE 3 PER DL ADJUNCT ENGLISH INSTRUCTOR -Silvercel 1 0 Treatment Response Procedure Tolerated Well WC - Visit Discharge Discharge Condition Stable Stable Ambulatory Status Ambulatory, Ambulatory, Walker Walker Transportation Private Auto Private Auto Accompanied by Assessment/Plan Assessment/Plan (1) Pressure ulcer of right heel, stage 3: CODE(S): L89.613 - Pressure ulcer of right heel, stage 3 (2) 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 He was approved for Epicord/Epifix to this ulcer. He has received 10 application total (Epicord 7 applications, Epifix #3) with improvement in his ulcer. He has shown improvement in his ulcer with off loading with TCC. Wound care - Moistened Silver alginate topped with foam dressing. Compression left leg double tubigrip. Offloading: He is amendable to have a total contact cast applied today and verbal consent was obtained.? This was applied according to standard protocol in a neutral position a well-padded manner.? He tolerated this well.? To keep clean, dry, and intact until follow-up visit. He was encouraged to only walk with a total contact cast while in the cast boot.? He was also instructed to not get the cast wet and to shower using cast bag.? He voices understanding of this. I discussed with him that he will not be able to visualize for signs and symptoms of infection while he is in a total contact cast.? I did discuss the signs and symptoms of infection today.? Informed him if he notices any redness moving up the leg, continued feeling of oozing, increasing odor, increasing pain, or if he experiences any fever greater than 101 degree, nausea, vomiting, or chills that he is to report straight to the ED for removal of the total contact cast for evaluation as these are signs of progressing infection.? He voices understanding of this today. A wound culture was obtained 08/30/22 which was positive for VRE, Kocuria kristinae, and Corynebacterium striatum completed Linezolid. Encouraged increase protein intake with low carbs to help with blood sugars and wound healing. He is on Doxycycline as suppressive treatment since he had his left knee replaced, this is prescribed by Orthopaedics. Follow up one week. Call or come in sooner if develop any concerns.
== END 2023-03-12 23:59 | disposition home or self-care (01) ==
LOC: WC 11:00
PROVIDERS: PCP Internal Medicine; Visit Provider Nurse Practitioner Family
DX: L89.613 Pressure ulcer of right heel, stage 3 (principal); E11.42 Type 2 diabetes mellitus with diabetic polyneuropathy; Z79.4 Long term (current) use of insulin; R60.0 Localized edema; I89.0 Lymphedema, not elsewhere classified; I10 Essential (primary) hypertension; E78.00 Pure hypercholesterolemia, unspecified; Z79.82 Long term (current) use of aspirin; Z79.01 Long term (current) use of anticoagulants; Z79.899 Other long term (current) drug therapy; Z96.652 Presence of left artificial knee joint
CPT/HCPCS: 11042; 29445

== ENCOUNTER 2023-04-11 10:30 | Outpatient (RCR) | payer MEDICARE, BC, SELFPAY ==
[2023-03-13 00:32] VITALS: BP 149/78; PULSE 84; RESP 24; TEMP 36.6; BMI 46.5
[2023-03-14 11:01] VITALS: BP 192/97; PULSE 92; RESP 20; TEMP 36.6; BMI 46.5
--- NOTE | 2023-03-14 11:43 | PCM.WC.PN ---
History of Present Illness Date of Service: 03/14/23 Chief Complaint: Right heel ulcer History of Wound: 67 year old male presents to the wound center for evaluation of his right heal ulcer. It started as a a pressure ulcer in February when he he was in TCU and it healed. It then became a blister right before his Left TKR surgery. He had his left knee replaced 07/14/22 at [facility]. 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 He also has a history of diabetes, HTN, lymphedema, hypercholesterolemia and PE that he is on Xerelto. He currently has home health. Wound culture obtained on 08/30/22 which are positive for VRE, Kocuria kristinae and Corynebacterium striatum. He will completed the Linezolid. Foot xray 09/27/22 - Osteopenia with diffuse osteoarthritic changes. Diffuse soft tissue swelling with ossification of the distal Achilles tendon. No acute abnormality or evidence of erosive changes. Wound care - He has been approved for Epicord and Epifix and has received 10 applications total. Aquacel-Ag covered by gauze. He denies any fever, chills, nausea and vomiting. Progress of Wound: His right heel ulcer is smaller in size. Wearing the TCC has helped make improvements in the wound healing. Left leg with increased edema, will start double tubigrip. He states that he stopped wearing the tubigrip because it was too tight over his knee. The tubigrip should not be over the knee. Objective Data Objective Data Vital Signs: Vital Signs Temp Pulse Resp BP 97.9 F 92 20 H 192/97 H 03/14/23 11:01 03/14/23 11:01 03/14/23 11:01 03/14/23 11:01 Weight: 343 lb Body Mass Index (BMI) 46.5 Charges/Coding Procedures Integumentary 111xxx-113xx: 43056 [place] subq tissue 20 sq cm/< Procedures Musculoskeletal 20xxx-29xxx: 40989 APPLY RIGID LEG CAST (total contact cast) Debridement Note Debridement Note Wound debrided: Right posterior lateral heel Laterality: Right Wound Grade/Stage: Gomez stage III Type of Debridement: Excisional debridement Anesthesia Used: 5% Lidocaine Gel Depth: Down to and including healthy tissue and in the subcutaneous layer Percentage of wound debrided: 100 Instrument Used: 3mm curette Tissue Removed: Devitalized subcutaneous, biofilm, slough Severity: Fat Layer Exposed Amount of bleeding with debridement: Mild Bleeding Controlled with: Pressure and Compression and gauze Patient tolerated procedure: Patient tolerated procedure well Post-Debridement Measurements and Additional Note: Post-Debridement Measurements/Treatment LAM - Nurse 1 - General Ulcer Assessment Start: 03/14/23 11:00 Freq: Status: Active Protocol: NELL Activity Type Activity Date Activity User E-sign Co-sign Detail Recorded Client Recorded Date Recorded By Document 03/14/23 11:01 DL [id number] 03/14/23 11:15 DL 03/14/23 11:01 WC - Today's Visit Information Type of service Follow-up Visit (Physician/OUTSIDE RIGGER ) Arrival Mode Ambulatory, Walker Transfer Assistance None Patient Identification Verified (Name & Yes ) Patient Requires Transmission-Based No Precautions Finger Stick Blood Sugar(mg/dl) (if 155 indicated): Blood Sugar Stated by Patient Height and Weight Body Mass Index (BMI) 46.5 BMI Classification Obese Vital Signs Temperature (97.8 F-99.1 F) 97.9 F Temperature Source Temporal Pulse Rate (60-100) 92 Pulse Location Monitor Respiratory Rate (12-18) 20 H Respiratory rate source Observation Blood Pressure (90/60-120/80) 192/97 H Blood Pressure Mean (mm Hg) 128 Source Monitor History Since Last Visit- (Skip if this is Patient's initial visit) Have you changed medications since your No last visit? Any new allergies or adverse reactions No Had a fall/change in ADL's that may No increase risk of falls Signs or symptoms of abuse and/or No neglect since last visit Have you been in the hospital since your No last visit? Has dressing in place as prescribed Yes Has compression in place as prescribed No Has offloadiing in place as prescribed Yes Experienced any changes in pain level or No management Left Footwear Regular Shoe Right Footwear Total Contact Cast Pain Scale: 0-10 Numeric Is Patient Pain Free? Yes LAM Abreu Nurse 1 - General Ulcer Measurement Start: 03/14/23 11:00 Freq: Status: Active Protocol: Activity Type Activity Date Activity User E-sign Co-sign Detail Recorded Client Recorded Date Recorded By Document 03/14/23 11:01 PRADEEP [id number] 03/14/23 11:15 DL 03/14/23 11:01 Wound Center Nurse 1 #1- R HEEL -Current Size (cm) - Length 2 -Current Size (cm) - Width 0.2 -Current Size (cm) - Depth 0.2 -Total Square Cm 0.4 -Photo Taken Yes -Exudate Amt Medium -Exudate Type Serosanguineous -Wound Margin Thickened -Granulation Amt Large (67-100%) -Granulation Quality Red -Necrosis Amt Small (1-33%) -Necrotic Tissue Type Adherent Slough -Structure Exposed N/A -Texture (Lianna-wound Skin Appearance) Scarring -Moisture (Lianna-wound Skin Appearance) Maceration -Color (Lianna-wound Skin Appearance) No Abnormality -Temperature (Lianna-wound Skin No Abnormality Appearance) (Pt Warm) -Tenderness on Palpation (Lianna-wound No Skin Appearance) -Ulcer Cleansing Soap and Water -Foul Odor after Cleansing No -Anesthetic Used 5% Lidocaine Gel Assessment/Plan Assessment/Plan (1) Pressure ulcer of right heel, stage 3: CODE(S): L89.613 - Pressure ulcer of right heel, stage 3 (2) 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 He was approved for Epicord/Epifix to this ulcer. He has received 10 application total (Epicord 7 applications, Epifix #3) with improvement in his ulcer. He has shown improvement in his ulcer with off loading with TCC. Wound care - Moistened Silver alginate topped with foam dressing. Compression left leg double tubigrip. Offloading: He is amendable to have a total contact cast applied today and verbal consent was obtained.? This was applied according to standard protocol in a neutral position a well-padded manner.? He tolerated this well.? To keep clean, dry, and intact until follow-up visit. He was encouraged to only walk with a total contact cast while in the cast boot.? He was also instructed to not get the cast wet and to shower using cast bag.? He voices understanding of this. I discussed with him that he will not be able to visualize for signs and symptoms of infection while he is in a total contact cast.? I did discuss the signs and symptoms of infection today.? Informed him if he notices any redness moving up the leg, continued feeling of oozing, increasing odor, increasing pain, or if he experiences any fever greater than 101 degree, nausea, vomiting, or chills that he is to report straight to the ED for removal of the total contact cast for evaluation as these are signs of progressing infection.? He voices understanding of this today. A wound culture was obtained 08/30/22 which was positive for VRE, Kocuria kristinae, and Corynebacterium striatum completed Linezolid. Encouraged increase protein intake with low carbs to help with blood sugars and wound healing. He is on Doxycycline as suppressive treatment since he had his left knee replaced, this is prescribed by Orthopaedics. Follow up one week. Call or come in sooner if develop any concerns.
[2023-03-21 11:05] VITALS: BP 167/81; PULSE 80; RESP 18; TEMP 36.6; BMI 46.5
--- NOTE | 2023-03-21 11:59 | PCM.WC.PN ---
History of Present Illness Date of Service: 03/21/23 Chief Complaint: Right heel ulcer History of Wound: 67 year old male presents to the wound center for evaluation of his right heal ulcer. It started as a a pressure ulcer in February when he he was in TCU and it healed. It then became a blister right before his Left TKR surgery. He had his left knee replaced 07/14/22 at [facility]. 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 He also has a history of diabetes, HTN, lymphedema, hypercholesterolemia and PE that he is on Xerelto. He currently has home health. Wound culture obtained on 08/30/22 which are positive for VRE, Kocuria kristinae and Corynebacterium striatum. He will completed the Linezolid. Foot xray 09/27/22 - Osteopenia with diffuse osteoarthritic changes. Diffuse soft tissue swelling with ossification of the distal Achilles tendon. No acute abnormality or evidence of erosive changes. Wound care - He has been approved for Epicord and Epifix and has received 10 applications total. Aquacel-Ag covered by gauze. He denies any fever, chills, nausea and vomiting. Progress of Wound: His right heel ulcer is smaller in size this week. Wearing the TCC has helped make improvements in the wound healing. Objective Data Objective Data Vital Signs: Vital Signs Temp Pulse Resp BP 97.8 F 80 18 167/81 H 03/21/23 11:05 03/21/23 11:05 03/21/23 11:05 03/21/23 11:05 Weight: 343 lb Body Mass Index (BMI) 46.5 Charges/Coding Procedures Integumentary 111xxx-113xx: 06120 [place] subq tissue 20 sq cm/< Procedures Musculoskeletal 20xxx-29xxx: 78859 APPLY RIGID LEG CAST (total contact cast) Debridement Note Debridement Note Wound debrided: Right posterior lateral heel Laterality: Right Wound Grade/Stage: Gomez stage III Type of Debridement: Excisional debridement Anesthesia Used: 5% Lidocaine Gel Depth: Down to and including healthy tissue and in the subcutaneous layer Percentage of wound debrided: 100 Instrument Used: 3mm curette Tissue Removed: Devitalized subcutaneous, biofilm, slough Severity: Fat Layer Exposed Amount of bleeding with debridement: Mild Bleeding Controlled with: Pressure and Compression and gauze Patient tolerated procedure: Patient tolerated procedure well Post-Debridement Measurements and Additional Note: Post-Debridement Measurements/Treatment LAM - Nurse 1 - General Ulcer Assessment Start: 03/14/23 11:00 Freq: Status: Active Protocol: NELL Activity Type Activity Date Activity User E-sign Co-sign Detail Recorded Client Recorded Date Recorded By Document 03/14/23 11:01 DL [id number] 03/14/23 11:15 DL Document 03/21/23 11:05 PL [id number] 03/21/23 11:09 PL 03/14/23 03/21/23 11:01 11:05 WC - Today's Visit Information Type of service Follow-up Visit Follow-up Visit (Physician/ELEMENTARY SCHOOL READING TEACHER (Physician/ELEMENTARY SCHOOL READING TEACHER ) ) Arrival Mode Ambulatory, Ambulatory, Walker Walker Transfer Assistance None None Patient Identification Verified (Name & Yes Yes ) Patient Requires Transmission-Based No No Precautions Safety Precautions NA Finger Stick Blood Sugar(mg/dl) (if 155 indicated): Blood Sugar Stated by Patient Height and Weight Body Mass Index (BMI) 46.5 46.5 BMI Classification Obese Obese Vital Signs Temperature (97.8 F-99.1 F) 97.9 F 97.8 F Temperature Source Temporal Temporal Pulse Rate (60-100) 92 80 Pulse Location Monitor Respiratory Rate (12-18) 20 H 18 Respiratory rate source Observation Blood Pressure (90/60-120/80) 192/97 H 167/81 H Blood Pressure Mean (mm Hg) 128 109 Source Monitor History Since Last Visit- (Skip if this is Patient's initial visit) Have you changed medications since your No No last visit? Any new allergies or adverse reactions No No Had a fall/change in ADL's that may No No increase risk of falls Signs or symptoms of abuse and/or No No neglect since last visit Have you been in the hospital since your No No last visit? Has dressing in place as prescribed Yes Yes Has compression in place as prescribed No Yes Has offloadiing in place as prescribed Yes Yes Experienced any changes in pain level or No No management Left Footwear Regular Shoe Right Footwear Total Contact Cast Pain Scale: 0-10 Numeric Is Patient Pain Free? Yes Yes LAM - Nurse 1 - General Ulcer Measurement Start: 03/14/23 11:00 Freq: Status: Active Protocol: Activity Type Activity Date Activity User E-sign Co-sign Detail Recorded Client Recorded Date Recorded By Document 03/14/23 11:01 DL [id number] 03/14/23 11:15 DL 03/14/23 11:01 Wound Center Nurse 1 #1- R HEEL -Current Size (cm) - Length 2 -Current Size (cm) - Width 0.2 -Current Size (cm) - Depth 0.2 -Total Square Cm 0.4 -Photo Taken Yes -Exudate Amt Medium -Exudate Type Serosanguineous -Wound Margin Thickened -Granulation Amt Large (67-100%) -Granulation Quality Red -Necrosis Amt Small (1-33%) -Necrotic Tissue Type Adherent Slough -Structure Exposed N/A -Texture (Lianna-wound Skin Appearance) Scarring -Moisture (Lianna-wound Skin Appearance) Maceration -Color (Lianna-wound Skin Appearance) No Abnormality -Temperature (Lianna-wound Skin No Abnormality Appearance) (Pt Warm) -Tenderness on Palpation (Lianna-wound No Skin Appearance) -Ulcer Cleansing Soap and Water -Foul Odor after Cleansing No -Anesthetic Used 5% Lidocaine Gel WC - Nurse 2 - General Ulcer CM Notes Start: 03/14/23 11:00 Freq: Status: Active Protocol: Activity Type Activity Date Activity User E-sign Co-sign Detail Recorded Client Recorded Date Recorded By Document 03/14/23 11:50 PL [id number] 03/14/23 11:51 PL 03/14/23 11:50 Wound Center Nurse 2 -Time 11:17 -Correct Patient Yes -Correct Side, Site, Position Yes -Correct Procedure Yes -Procedure Performed Yes -Type of Procedure Debridement -Clinical Debridement Subcutaneous -Tissue Removed Subcutaneous -Post Debridement (cm) - Length 1.0 -Post Debridement (cm) - Width 3.3 -Post Debridement (cm) - Depth 0.2 -Total Square (Post) (cm) 3.30 -Area of Debridement (cm) - Length 1.0 -Area of Debridement (cm) - Width 3.3 -Total Square (Area) (cm) 3.30 -Tunneling No -Undermining/Tunneling No -Circular Undermining No -Wound/Ulcer Outcome Not Healed -Ulcer Cleansing Rinsed/ Irrigated with Saline -Foul Odor after Cleansing No -Bioengineered Tissue No -Bleeding Controlled with Pressure -Treatment Response Procedure Tolerated Well -Type of Offloading Total Contact Cast (TCC) - Right ($) -Debridement - Subq, 1st 20sq cm Yes Pain Scale: 0-10 Numeric Is Patient Pain Free? 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 He was approved for Epicord/Epifix to this ulcer. He has received 10 application total (Epicord 7 applications, Epifix #3) with improvement in his ulcer. He has shown improvement in his ulcer with off loading with TCC. Wound care - Moistened Silver alginate topped with foam dressing. Compression left leg double tubigrip. Offloading: He is amendable to have a total contact cast applied today and verbal consent was obtained.? This was applied according to standard protocol in a neutral position a well-padded manner.? He tolerated this well.? To keep clean, dry, and intact until follow-up visit. He was encouraged to only walk with a total contact cast while in the cast boot.? He was also instructed to not get the cast wet and to shower using cast bag.? He voices understanding of this. I discussed with him that he will not be able to visualize for signs and symptoms of infection while he is in a total contact cast.? I did discuss the signs and symptoms of infection today.? Informed him if he notices any redness moving up the leg, continued feeling of oozing, increasing odor, increasing pain, or if he experiences any fever greater than 101 degree, nausea, vomiting, or chills that he is to report straight to the ED for removal of the total contact cast for evaluation as these are signs of progressing infection.? He voices understanding of this today. A wound culture was obtained 08/30/22 which was positive for VRE, Kocuria kristinae, and Corynebacterium striatum completed Linezolid. Encouraged increase protein intake with low carbs to help with blood sugars and wound healing. He is on Doxycycline as suppressive treatment since he had his left knee replaced, this is prescribed by Orthopaedics. Follow up one week. Call or come in sooner if develop any concerns.
[2023-03-28 08:23] VITALS: BP 166/86; PULSE 78; RESP 20; TEMP 36.1; BMI 46.5
--- NOTE | 2023-03-28 14:49 | PCM.WC.PN ---
History of Present Illness Date of Service: 03/28/23 Chief Complaint: Right heel ulcer History of Wound: 67 year old male presents to the wound center for evaluation of his right heal ulcer. It started as a a pressure ulcer in February when he he was in TCU and it healed. It then became a blister right before his Left TKR surgery. He had his left knee replaced 07/14/22 at [facility]. 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 He also has a history of diabetes, HTN, lymphedema, hypercholesterolemia and PE that he is on Xerelto. He currently has home health. Wound culture obtained on 08/30/22 which are positive for VRE, Kocuria kristinae and Corynebacterium striatum. He will completed the Linezolid. Foot xray 09/27/22 - Osteopenia with diffuse osteoarthritic changes. Diffuse soft tissue swelling with ossification of the distal Achilles tendon. No acute abnormality or evidence of erosive changes. Wound care - He has been approved for Epicord and Epifix and has received 10 applications total. Aquacel-Ag covered by gauze. He denies any fever, chills, nausea and vomiting. Progress of Wound: His right heel ulcer is smaller in size. Wearing the TCC has helped make improvements in the wound healing. Objective Data Objective Data Vital Signs: Vital Signs Temp Pulse Resp BP 97 F L 78 20 H 166/86 H 03/28/23 08:23 03/28/23 08:23 03/28/23 08:23 03/28/23 08:23 Weight: 343 lb Body Mass Index (BMI) 46.5 Charges/Coding Procedures Integumentary 111xxx-113xx: [id number] [place] subq tissue 20 sq cm/< Procedures Musculoskeletal 20xxx-29xxx: [id number] APPLY RIGID LEG CAST (total contact cast) Debridement Note Debridement Note Wound debrided: Right posterior lateral heel Laterality: Right Wound Grade/Stage: Gomez stage III Type of Debridement: Excisional debridement Anesthesia Used: 5% Lidocaine Gel Depth: Down to and including healthy tissue and in the subcutaneous layer Percentage of wound debrided: 100 Instrument Used: 3mm curette Tissue Removed: Devitalized subcutaneous, biofilm, slough Severity: Fat Layer Exposed Amount of bleeding with debridement: Mild Bleeding Controlled with: Pressure, Compression and gauze and Silver Nitrate Patient tolerated procedure: Patient tolerated procedure well Post-Debridement Measurements and Additional Note: Post-Debridement Measurements/Treatment WC - Nurse 1 - General Ulcer Assessment Start: 03/14/23 11:00 Freq: Status: Active Protocol: NELL Activity Type Activity Date Activity User E-sign Co-sign Detail Recorded Client Recorded Date Recorded By Document 03/14/23 11:01 DL [id number] 03/14/23 11:15 DL Document 03/21/23 11:05 PL [id number] 03/21/23 11:09 PL Document 03/28/23 08:23 DL [id number] 03/28/23 08:33 DL 03/14/23 03/21/23 03/28/23 11:01 11:05 08:23 WC - Today's Visit Information Type of service Follow-up Visit Follow-up Visit Follow-up Visit (Physician/CATEGORY DEVELOPMENT ANALYST (Physician/CATEGORY DEVELOPMENT ANALYST (Physician/CATEGORY DEVELOPMENT ANALYST ) ) ) Arrival Mode Ambulatory, Ambulatory, Ambulatory, Walker Walker Walker Transfer Assistance None None None Patient Identification Verified (Name & Yes Yes Yes ) Patient Requires Transmission-Based No No No Precautions Safety Precautions NA Finger Stick Blood Sugar(mg/dl) (if 155 indicated): Blood Sugar Stated by Patient Height and Weight Body Mass Index (BMI) 46.5 46.5 46.5 BMI Classification Obese Obese Obese Vital Signs Temperature (97.8 F-99.1 F) 97.9 F 97.8 F 97 F L Temperature Source Temporal Temporal Temporal Pulse Rate (60-100) 92 80 78 Pulse Location Monitor Monitor Respiratory Rate (12-18) 20 H 18 20 H Respiratory rate source Observation Observation Blood Pressure (90/60-120/80) 192/97 H 167/81 H 166/86 H Blood Pressure Mean (mm Hg) 128 109 112 Source Monitor Monitor History Since Last Visit- (Skip if this is Patient's initial visit) Have you changed medications since your No No No last visit? Any new allergies or adverse reactions No No No Had a fall/change in ADL's that may No No No increase risk of falls Signs or symptoms of abuse and/or No No No neglect since last visit Have you been in the hospital since your No No No last visit? Has dressing in place as prescribed Yes Yes Yes Has compression in place as prescribed No Yes Has offloadiing in place as prescribed Yes Yes Yes Experienced any changes in pain level or No No No management Left Footwear Regular Shoe Right Footwear Total Contact Total Contact Cast Cast Pain Scale: 0-10 Numeric Is Patient Pain Free? Yes Yes Yes - Nurse 1 - General Ulcer Measurement Start: 03/14/23 11:00 Freq: Status: Active Protocol: Activity Type Activity Date Activity User E-sign Co-sign Detail Recorded Client Recorded Date Recorded By Document 03/14/23 11:01 DL [id number] 03/14/23 11:15 DL Document 03/28/23 08:23 DL [id number] 03/28/23 08:33 DL 03/14/23 03/28/23 11:01 08:23 Wound Center Nurse 1 #1- R HEEL -Current Size (cm) - Length 2 0.4 -Current Size (cm) - Width 0.2 0.4 -Current Size (cm) - Depth 0.2 0.1 -Total Square Cm 0.4 0.16 -Photo Taken Yes -Exudate Amt Medium Small -Exudate Type Serosanguineous Serosanguineous -Wound Margin Thickened Distinct, Outline Attached -Granulation Amt Large (67-100%) Small (1-33%) -Granulation Quality [place] -Necrosis Amt Small (1-33%) Small (1-33%) -Necrotic Tissue Type Adherent Slough Adherent Slough -Structure Exposed N/A N/A -Texture (Lianna-wound Skin Appearance) Scarring Scarring -Moisture (Lianna-wound Skin Appearance) Maceration No Abnormality -Color (Lianna-wound Skin Appearance) No Abnormality No Abnormality -Temperature (Lianna-wound Skin No Abnormality No Abnormality Appearance) (Pt Warm) (Pt Warm) -Tenderness on Palpation (Lianna-wound No No Skin Appearance) -Ulcer Cleansing Soap and Water Soap and Water -Foul Odor after Cleansing No No -Anesthetic Used 5% Lidocaine 5% Lidocaine Gel Gel WC - Nurse 2 - General Ulcer CM Notes Start: 03/14/23 11:00 Freq: Status: Active Protocol: Activity Type Activity Date Activity User E-sign Co-sign Detail Recorded Client Recorded Date Recorded By Document 03/14/23 11:50 PL [id number] 03/14/23 11:51 PL Document 03/21/23 12:00 JF [id number] 03/23/23 07:42 JF Document 03/28/23 08:50 JF [id number] 03/28/23 08:51 JF Edit Result 03/28/23 08:50 JF (1) [id number] 03/28/23 09:04 JF (1) #1- R HEEL - Bleeding Controlled with Pressure => Pressure,Silver => Nitrate 03/14/23 03/21/23 03/28/23 11:50 12:00 08:50 Wound Center Nurse 2 #1- R HEEL -Time 11:17 07:42 08:51 -Correct Patient Yes Yes Yes -Correct Side, Site, Position Yes Yes Yes -Correct Procedure Yes Yes Yes -Procedure Performed Yes Yes Yes -Type of Procedure Debridement Debridement Debridement -Clinical Debridement Subcutaneous Subcutaneous Subcutaneous -Tissue Removed Subcutaneous Subcutaneous Subcutaneous -Post Debridement (cm) - Length 1.0 0.7 0.5 -Post Debridement (cm) - Width 3.3 0.8 0.5 -Post Debridement (cm) - Depth 0.2 0.2 0.2 -Total Square (Post) (cm) 3.30 0.56 0.25 -Area of Debridement (cm) - Length 1.0 0.7 0.5 -Area of Debridement (cm) - Width 3.3 0.8 0.5 -Total Square (Area) (cm) 3.30 0.56 0.25 -Tunneling No No No -Undermining/Tunneling No No No -Circular Undermining No No No -Wound/Ulcer Outcome Not Healed Not Healed Not Healed -Ulcer Cleansing Rinsed/ Rinsed/ Rinsed/ Irrigated with Irrigated with Irrigated with Saline Saline Saline -Foul Odor after Cleansing No No No -Bioengineered Tissue No No No -Bleeding Controlled with Pressure Pressure Pressure,Silver Nitrate -Treatment Response Procedure Procedure Procedure Tolerated Well Tolerated Well Tolerated Well -Offloading Yes Yes -Type of Offloading Total Contact Total Contact Total Contact Cast (TCC) - Cast (TCC) - Cast (TCC) - Right ($) Right ($) Right ($) -Debridement - Subq, 1st 20sq cm Yes Yes Yes Pain Scale: 0-10 Numeric Is Patient Pain Free? Yes Yes Yes - Nurse 3 - General Ulcer D/C NN Start: 03/14/23 11:00 Freq: Status: Active Protocol: Activity Type Activity Date Activity User E-sign Co-sign Detail Recorded Client Recorded Date Recorded By Document 03/21/23 12:10 YASMINE [id number] 03/23/23 07:43 YASMINE 03/21/23 12:10 Wound Care Center Nurse 3 #1- R HEEL -Ulcer Cleansing Rinsed/ Irrigated with Saline -Foul Odor after Cleansing No -Primary Dressing Applied Silvercel -Other Covering foam dressing -Silvercel 0 Pain Scale: 0-10 Numeric Is Patient Pain Free? Yes WC - Visit Discharge Discharge Condition Stable Ambulatory Status Ambulatory, Walker Transportation Private Auto Accompanied by Medication Reconcilliation completed & Yes provided to patient/care provider Clinical Summary of Care Provided Yes Notes: Size 3 TCC applied today. Patient tolerated well. 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 He was approved for Epicord/Epifix to this ulcer. He has received 10 application total (Epicord 7 applications, Epifix #3) with improvement in his ulcer. He has shown improvement in his ulcer with off loading with TCC. Wound care - Moistened Aguacel-Ag/Silver alginate topped with Wickes SAP. Compression left leg double tubigrip. Offloading: He is amendable to have a total contact cast applied today and verbal consent was obtained.? This was applied according to standard protocol in a neutral position a well-padded manner.? He tolerated this well.? To keep clean, dry, and intact until follow-up visit. He was encouraged to only walk with a total contact cast while in the cast boot.? He was also instructed to not get the cast wet and to shower using cast bag.? He voices understanding of this. I discussed with him that he will not be able to visualize for signs and symptoms of infection while he is in a total contact cast.? I did discuss the signs and symptoms of infection today.? Informed him if he notices any redness moving up the leg, continued feeling of oozing, increasing odor, increasing pain, or if he experiences any fever greater than 101 degree, nausea, vomiting, or chills that he is to report straight to the ED for removal of the total contact cast for evaluation as these are signs of progressing infection.? He voices understanding of this today. A wound culture was obtained 08/30/22 which was positive for VRE, Kocuria kristinae, and Corynebacterium striatum completed Linezolid. Encouraged increase protein intake with low carbs to help with blood sugars and wound healing. He is on Doxycycline as suppressive treatment since he had his left knee replaced, this is prescribed by Orthopaedics. Follow up one week. Call or come in sooner if develop any concerns.
[2023-04-04 10:19] VITALS: BP 163/92; PULSE 91; RESP 22; TEMP 36.6; BMI 46.5
--- NOTE | 2023-04-04 12:10 | PN.PCM_ITS ---
History of Present Illness Date of Service: 04/04/23 Chief Complaint: Right heel ulcer History of Wound: 67 year old male presents to the wound center for evaluation of his right heal ulcer. It started as a a pressure ulcer in February when he he was in TCU and it healed. It then became a blister right before his Left TKR surgery. He had his left knee replaced 07/14/22 at [facility]. 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 He also has a history of diabetes, HTN, lymphedema, hypercholesterolemia and PE that he is on Xerelto. He currently has home health. Wound culture obtained on 08/30/22 which are positive for VRE, Kocuria kristinae and Corynebacterium striatum. He will completed the Linezolid. Foot xray 09/27/22 - Osteopenia with diffuse osteoarthritic changes. Diffuse soft tissue swelling with ossification of the distal Achilles tendon. No acute abnormality or evidence of erosive changes. Wound care - He has been approved for Epicord and Epifix and has received 10 applications total. Aquacel-Ag covered by gauze. He denies any fever, chills, nausea and vomiting. Progress of Wound: His right lateral heel ulcer is smaller in size. Wearing the TCC has helped make improvements in the wound healing. Objective Data Objective Data Vital Signs: Vital Signs Temp Pulse Resp BP 97.9 F 91 22 H 163/92 H 04/04/23 10:19 04/04/23 10:19 04/04/23 10:19 04/04/23 10:19 Weight: 343 lb Body Mass Index (BMI) 46.5 Charges/Coding Procedures Integumentary 111xxx-113xx: [id number] [place] subq tissue 20 sq cm/< Procedures Musculoskeletal 20xxx-29xxx: [id number] APPLY RIGID LEG CAST (total contact cast) Debridement Note Debridement Note Wound debrided: Right posterior lateral heel Laterality: Right Wound Grade/Stage: Gomez stage III Type of Debridement: Excisional debridement Anesthesia Used: 5% Lidocaine Gel Depth: Down to and including healthy tissue and in the subcutaneous layer Percentage of wound debrided: 100 Instrument Used: 3mm curette Tissue Removed: Devitalized subcutaneous tissue and slough Severity: Fat Layer Exposed Amount of bleeding with debridement: Mild Bleeding Controlled with: Pressure and Compression and gauze Patient tolerated procedure: Patient tolerated procedure well Post-Debridement Measurements and Additional Note: Post-Debridement Measurements/Treatment WC - Nurse 1 - General Ulcer Assessment Start: 03/14/23 11:00 Freq: Status: Active Protocol: NELL Activity Type Activity Date Activity User E-sign Co-sign Detail Recorded Client Recorded Date Recorded By Document 03/14/23 11:01 DL [id number] 03/14/23 11:15 DL Document 03/21/23 11:05 PL [id number] 03/21/23 11:09 PL Document 03/28/23 08:23 DL [id number] 03/28/23 08:33 DL Document 04/04/23 10:19 DL Desktop 04/04/23 10:28 DL 03/14/23 03/21/23 03/28/23 11:01 11:05 08:23 WC - Today's Visit Information Type of service Follow-up Visit Follow-up Visit Follow-up Visit (Physician/PNEUMATIC TUBE OPERATOR (Physician/PNEUMATIC TUBE OPERATOR (Physician/PNEUMATIC TUBE OPERATOR ) ) ) Arrival Mode Ambulatory, Ambulatory, Ambulatory, Walker Walker Walker Transfer Assistance None None None Patient Identification Verified (Name & Yes Yes Yes ) Patient Requires Transmission-Based No No No Precautions Safety Precautions NA Finger Stick Blood Sugar(mg/dl) (if 155 indicated): Blood Sugar Stated by Patient Height and Weight Body Mass Index (BMI) 46.5 46.5 46.5 BMI Classification Obese Obese Obese Vital Signs Temperature (97.8 F-99.1 F) 97.9 F 97.8 F 97 F L Temperature Source Temporal Temporal Temporal Pulse Rate (60-100) 92 80 78 Pulse Location Monitor Monitor Respiratory Rate (12-18) 20 H 18 20 H Respiratory rate source Observation Observation Blood Pressure (90/60-120/80) 192/97 H 167/81 H 166/86 H Blood Pressure Mean (mm Hg) 128 109 112 Source Monitor Monitor History Since Last Visit- (Skip if this is Patient's initial visit) Have you changed medications since your No No No last visit? Any new allergies or adverse reactions No No No Had a fall/change in ADL's that may No No No increase risk of falls Signs or symptoms of abuse and/or No No No neglect since last visit Have you been in the hospital since your No No No last visit? Has dressing in place as prescribed Yes Yes Yes Has compression in place as prescribed No Yes Has offloadiing in place as prescribed Yes Yes Yes Experienced any changes in pain level or No No No management Left Footwear Regular Shoe Right Footwear Total Contact Total Contact Cast Cast Pain Scale: 0-10 Numeric Is Patient Pain Free? Yes Yes Yes 04/04/23 10:19 WC - Today's Visit Information Type of service Follow-up Visit (Physician/PNEUMATIC TUBE OPERATOR ) Arrival Mode Ambulatory, Walker Transfer Assistance None Patient Identification Verified (Name & Yes ) Patient Requires Transmission-Based No Precautions Safety Precautions Finger Stick Blood Sugar(mg/dl) (if 121 indicated): Blood Sugar Stated by Patient Height and Weight Body Mass Index (BMI) 46.5 BMI Classification Obese Vital Signs Temperature (97.8 F-99.1 F) 97.9 F Temperature Source Temporal Pulse Rate (60-100) 91 Pulse Location Monitor Respiratory Rate (12-18) 22 H Respiratory rate source Observation Blood Pressure (90/60-120/80) 163/92 H Blood Pressure Mean (mm Hg) 115 Source Monitor History Since Last Visit- (Skip if this is Patient's initial visit) Have you changed medications since your No last visit? Any new allergies or adverse reactions No Had a fall/change in ADL's that may No increase risk of falls Signs or symptoms of abuse and/or No neglect since last visit Have you been in the hospital since your No last visit? Has dressing in place as prescribed Yes Has compression in place as prescribed N/A Has offloadiing in place as prescribed Yes Experienced any changes in pain level or No management Left Footwear Right Footwear Total Contact Cast Pain Scale: 0-10 Numeric Is Patient Pain Free? Yes - Nurse 1 - General Ulcer Measurement Start: 03/14/23 11:00 Freq: Status: Active Protocol: Activity Type Activity Date Activity User E-sign Co-sign Detail Recorded Client Recorded Date Recorded By Document 03/14/23 11:01 DL [id number] 03/14/23 11:15 DL Document 03/28/23 08:23 DL [id number] 03/28/23 08:33 DL Document 04/04/23 10:19 DL Desktop 04/04/23 10:28 DL 03/14/23 03/28/23 04/04/23 11:01 08: 10:19 Wound Center Nurse 1 #1- R HEEL -Current Size (cm) - Length 2 0.4 0.6 -Current Size (cm) - Width 0.2 0.4 0.5 -Current Size (cm) - Depth 0.2 0.1 0.3 -Total Square Cm 0.4 0.16 0.30 -Photo Taken Yes -Maximum Distance #2 (cm) 0.2 -Circular Undermining Yes -Exudate Amt Medium Small Small -Exudate Type Serosanguineous Serosanguineous Serosanguineous -Wound Margin Thickened Distinct, Distinct, Outline Outline Attached Attached -Granulation Amt Large (67-100%) Small (1-33%) Small (1-33%) -Granulation Quality Red [place] Red -Necrosis Amt Small (1-33%) Small (1-33%) Small (1-33%) -Necrotic Tissue Type Adherent Slough Adherent Slough Adherent Slough -Structure Exposed N/A N/A N/A -Texture (Lianna-wound Skin Appearance) Scarring Scarring Scarring -Moisture (Lianna-wound Skin Appearance) Maceration No Abnormality Dry/Scaly -Color (Lianna-wound Skin Appearance) No Abnormality No Abnormality Hemosiderin Staining -Temperature (Lianna-wound Skin No Abnormality No Abnormality No Abnormality Appearance) (Pt Warm) (Pt Warm) (Pt Warm) -Tenderness on Palpation (Lianna-wound No No Skin Appearance) -Ulcer Cleansing Soap and Water Soap and Water Soap and Water -Foul Odor after Cleansing No No No -Anesthetic Used 5% Lidocaine 5% Lidocaine 5% Lidocaine Gel Gel Gel WC - Nurse 2 - General Ulcer CM Notes Start: 03/14/23 11:00 Freq: Status: Active Protocol: Activity Type Activity Date Activity User E-sign Co-sign Detail Recorded Client Recorded Date Recorded By Document 03/14/23 11:50 PL [id number] 03/14/23 11:51 PL Document 03/21/23 12:00 JF [id number] 03/23/23 07:42 JF Document 03/28/23 08:50 JF [id number] 03/28/23 08:51 JF Edit Result 03/28/23 08:50 JF (1) [id number] 03/28/23 09:04 Document 04/04/23 10:51 [id number] 04/04/23 10:55 (1) #1- R HEEL - Bleeding Controlled with Pressure => Pressure,Silver => Nitrate 03/14/23 03/21/23 03/28/23 11:50 12:00 08:50 Wound Center Nurse 2 #1- R HEEL -Time 11:17 07:42 08:51 -Correct Patient Yes Yes Yes -Correct Side, Site, Position Yes Yes Yes -Correct Procedure Yes Yes Yes -Procedure Performed Yes Yes Yes -Type of Procedure Debridement Debridement Debridement -Clinical Debridement Subcutaneous Subcutaneous Subcutaneous -Tissue Removed Subcutaneous Subcutaneous Subcutaneous -Post Debridement (cm) - Length 1.0 0.7 0.5 -Post Debridement (cm) - Width 3.3 0.8 0.5 -Post Debridement (cm) - Depth 0.2 0.2 0.2 -Total Square (Post) (cm) 3.30 0.56 0.25 -Area of Debridement (cm) - Length 1.0 0.7 0.5 -Area of Debridement (cm) - Width 3.3 0.8 0.5 -Total Square (Area) (cm) 3.30 0.56 0.25 -Tunneling No No No -Undermining/Tunneling No No No -Circular Undermining No No No -Wound/Ulcer Outcome Not Healed Not Healed Not Healed -Ulcer Cleansing Rinsed/ Rinsed/ Rinsed/ Irrigated with Irrigated with Irrigated with Saline Saline Saline -Foul Odor after Cleansing No No No -Bioengineered Tissue No No No -Bleeding Controlled with Pressure Pressure Pressure,Silver Nitrate -Treatment Response Procedure Procedure Procedure Tolerated Well Tolerated Well Tolerated Well -Offloading Yes Yes -Type of Offloading Total Contact Total Contact Total Contact Cast (TCC) - Cast (TCC) - Cast (TCC) - Right ($) Right ($) Right ($) -Debridement - Subq, 1st 20sq cm Yes Yes Yes Pain Scale: 0-10 Numeric Is Patient Pain Free? Yes Yes Yes 04/04/23 10:51 Wound Center Nurse 2 #1- R HEEL -Time 10:51 -Correct Patient Yes -Correct Side, Site, Position Yes -Correct Procedure Yes -Procedure Performed Yes -Type of Procedure Debridement -Clinical Debridement Subcutaneous -Tissue Removed Subcutaneous -Post Debridement (cm) - Length 1.0 -Post Debridement (cm) - Width 0.5 -Post Debridement (cm) - Depth 0.2 -Total Square (Post) (cm) 0.50 -Area of Debridement (cm) - Length 1.0 -Area of Debridement (cm) - Width 0.5 -Total Square (Area) (cm) 0.50 -Tunneling No -Undermining/Tunneling No -Circular Undermining No -Wound/Ulcer Outcome Not Healed -Ulcer Cleansing Rinsed/ Irrigated with Saline -Foul Odor after Cleansing No -Bioengineered Tissue No -Bleeding Controlled with Pressure -Treatment Response Procedure Tolerated Well -Offloading Yes -Type of Offloading Total Contact Cast (TCC) - Right ($) -Debridement - Subq, 1st 20sq cm Yes Pain Scale: 0-10 Numeric Is Patient Pain Free? Yes - Nurse 3 - General Ulcer D/C NN Start: 03/14/23 11:00 Freq: Status: Active Protocol: Activity Type Activity Date Activity User E-sign Co-sign Detail Recorded Client Recorded Date Recorded By Document 03/21/23 12:10 [id number] 03/23/23 07:43 Document 04/04/23 10:55 [id number] 04/04/23 10:56 03/21/23 04/04/23 12:10 10:55 Wound Care Center Nurse 3 #1- R HEEL -Ulcer Cleansing Rinsed/ Rinsed/ Irrigated with Irrigated with Saline Saline -Foul Odor after Cleansing No No -Primary Dressing Applied [place] Promogran Joelle Matter -Other Covering foam dressing -Promogran Joelle Matter 1 -[place] 0 Pain Scale: 0-10 Numeric Is Patient Pain Free? Yes Yes - Visit Discharge Discharge Condition Stable Stable Ambulatory Status Ambulatory, Ambulatory, Walker Walker Transportation Private Auto Private Auto Accompanied by Medication Reconcilliation completed & Yes Yes provided to patient/care provider Clinical Summary of Care Provided Yes Yes Notes: Size 3 TCC applied today. Patient tolerated well. 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 He was approved for Epicord/Epifix to this ulcer. He has received 10 application total (Epicord 7 applications, Epifix #3) with improvement in his ulcer. He has shown improvement in his ulcer with off loading with TCC. Wound care - Moistened Joelle topped with [place] SAP. Compression left leg double tubigrip. Offloading: He is amendable to have a total contact cast applied today and verbal consent was obtained.? This was applied according to standard protocol in a neutral position a well-padded manner.? He tolerated this well.? To keep clean, dry, and intact until follow-up visit. He was encouraged to only walk with a total contact cast while in the cast boot.? He was also instructed to not get the cast wet and to shower using cast bag.? He voices understanding of this. I discussed with him that he will not be able to visualize for signs and symptoms of infection while he is in a total contact cast.? I did discuss the signs and symptoms of infection today.? Informed him if he notices any redness moving up the leg, continued feeling of oozing, increasing odor, increasing pain, or if he experiences any fever greater than 101 degree, nausea, vomiting, or chills that he is to report straight to the ED for removal of the total contact cast for evaluation as these are signs of progressing infection.? He voices understanding of this today. A wound culture was obtained 08/30/22 which was positive for VRE, Kocuria kristinae, and Corynebacterium striatum completed Linezolid. Encouraged increase protein intake with low carbs to help with blood sugars and wound healing. He is on Doxycycline as suppressive treatment since he had his left knee replaced, this is prescribed by Orthopaedics. Follow up one week. Call or come in sooner if develop any concerns.
[2023-04-11 10:26] VITALS: BP 137/84; PULSE 90; RESP 20; TEMP 36.2; BMI 46.5
--- NOTE | 2023-04-11 12:30 | PCM.WC.PN ---
History of Present Illness Date of Service: 04/11/23 Chief Complaint: Right heel ulcer History of Wound: 67 year old male presents to the wound center for evaluation of his right heal ulcer. It started as a a pressure ulcer in February when he he was in TCU and it healed. It then became a blister right before his Left TKR surgery. He had his left knee replaced 07/14/22 at [facility]. 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 He also has a history of diabetes, HTN, lymphedema, hypercholesterolemia and PE that he is on Xerelto. He currently has home health. Wound culture obtained on 08/30/22 which are positive for VRE, Kocuria kristinae and Corynebacterium striatum. He will completed the Linezolid. Foot xray 09/27/22 - Osteopenia with diffuse osteoarthritic changes. Diffuse soft tissue swelling with ossification of the distal Achilles tendon. No acute abnormality or evidence of erosive changes. Wound care - He has been approved for Epicord and Epifix and has received 10 applications total. Aquacel-Ag covered by gauze. He denies any fever, chills, nausea and vomiting. Progress of Wound: His right lateral heel ulcer is smaller in size, it is almost healed. Will have him continue wearing the TCC again this week. Objective Data Objective Data Vital Signs: Vital Signs Temp Pulse Resp BP 97.1 F L 90 20 H 137/84 H 04/11/23 10:26 04/11/23 10:26 04/11/23 10:26 04/11/23 10:26 Weight: 343 lb Body Mass Index (BMI) 46.5 Charges/Coding Procedures Integumentary 111xxx-113xx: 32580 [place] subq tissue 20 sq cm/< Procedures Musculoskeletal 20xxx-29xxx: 37686 APPLY RIGID LEG CAST (total contact cast) Debridement Note Debridement Note Wound debrided: Right posterior lateral heel Laterality: Right Wound Grade/Stage: Gomez stage III Type of Debridement: Excisional debridement Anesthesia Used: 5% Lidocaine Gel Depth: Down to and including healthy tissue and in the subcutaneous layer Percentage of wound debrided: 100 Instrument Used: 3mm curette Tissue Removed: Devitalized subcutaneous tissue and slough Severity: Fat Layer Exposed Amount of bleeding with debridement: Mild Bleeding Controlled with: Pressure and Compression and gauze Patient tolerated procedure: Patient tolerated procedure well Post-Debridement Measurements and Additional Note: Post-Debridement Measurements/Treatment - Nurse 1 - General Ulcer Assessment Start: 03/14/23 11:00 Freq: Status: Active Protocol: NELL Activity Type Activity Date Activity User E-sign Co-sign Detail Recorded Client Recorded Date Recorded By Document 03/14/23 11:01 DL [id number] 03/14/23 11:15 DL Document 03/21/23 11:05 PL [id number] 03/21/23 11:09 PL Document 03/28/23 08:23 DL [id number] 03/28/23 08:33 DL Document 04/04/23 10:19 DL Desktop 04/04/23 10:28 DL Document 04/11/23 10:26 DL [id number] 04/11/23 10:29 DL 03/14/23 03/21/23 03/28/23 11:01 11:05 08:23 - Today's Visit Information Type of service Follow-up Visit Follow-up Visit Follow-up Visit (Physician/RELATIONS COORDINATOR (Physician/RELATIONS COORDINATOR (Physician/RELATIONS COORDINATOR ) ) ) Arrival Mode Ambulatory, Ambulatory, Ambulatory, Walker Walker Walker Transfer Assistance None None None Patient Identification Verified (Name & Yes Yes Yes ) Patient Requires Transmission-Based No No No Precautions Safety Precautions NA Finger Stick Blood Sugar(mg/dl) (if 155 indicated): Blood Sugar Stated by Patient Height and Weight Body Mass Index (BMI) 46.5 46.5 46.5 BMI Classification Obese Obese Obese Vital Signs Temperature (97.8 F-99.1 F) 97.9 F 97.8 F 97 F L Temperature Source Temporal Temporal Temporal Pulse Rate (60-100) 92 80 78 Pulse Location Monitor Monitor Respiratory Rate (12-18) 20 H 18 20 H Respiratory rate source Observation Observation Blood Pressure (90/60-120/80) 192/97 H 167/81 H 166/86 H Blood Pressure Mean (mm Hg) 128 109 112 Source Monitor Monitor History Since Last Visit- (Skip if this is Patient's initial visit) Have you changed medications since your No No No last visit? Any new allergies or adverse reactions No No No Had a fall/change in ADL's that may No No No increase risk of falls Signs or symptoms of abuse and/or No No No neglect since last visit Have you been in the hospital since your No No No last visit? Has dressing in place as prescribed Yes Yes Yes Has compression in place as prescribed No Yes Has offloadiing in place as prescribed Yes Yes Yes Experienced any changes in pain level or No No No management Left Footwear Regular Shoe Right Footwear Total Contact Total Contact Cast Cast Pain Scale: 0-10 Numeric Is Patient Pain Free? Yes Yes Yes 04/04/23 04/11/23 10:19 10:26 WC - Today's Visit Information Type of service Follow-up Visit Follow-up Visit (Physician/RELATIONS COORDINATOR (Physician/RELATIONS COORDINATOR ) ) Arrival Mode Ambulatory, Ambulatory Walker Transfer Assistance None Transfer Board Patient Identification Verified (Name & Yes Yes ) Patient Requires Transmission-Based No No Precautions Safety Precautions Finger Stick Blood Sugar(mg/dl) (if 121 170 indicated): Blood Sugar Stated by Stated by Patient Patient Height and Weight Body Mass Index (BMI) 46.5 46.5 BMI Classification Obese Obese Vital Signs Temperature (97.8 F-99.1 F) 97.9 F 97.1 F L Temperature Source Temporal Temporal Pulse Rate (60-100) 91 90 Pulse Location Monitor Monitor Respiratory Rate (12-18) 22 H 20 H Respiratory rate source Observation Observation Blood Pressure (90/60-120/80) 163/92 H 137/84 H Blood Pressure Mean (mm Hg) 115 101 Source Monitor Monitor History Since Last Visit- (Skip if this is Patient's initial visit) Have you changed medications since your No No last visit? Any new allergies or adverse reactions No No Had a fall/change in ADL's that may No No increase risk of falls Signs or symptoms of abuse and/or No No neglect since last visit Have you been in the hospital since your No No last visit? Has dressing in place as prescribed Yes Yes Has compression in place as prescribed N/A N/A Has offloadiing in place as prescribed Yes Yes Experienced any changes in pain level or No No management Left Footwear Right Footwear Total Contact Total Contact Cast Cast Pain Scale: 0-10 Numeric Is Patient Pain Free? Yes Yes - Nurse 1 - General Ulcer Measurement Start: 03/14/23 11:00 Freq: Status: Active Protocol: Activity Type Activity Date Activity User E-sign Co-sign Detail Recorded Client Recorded Date Recorded By Document 03/14/23 11:01 DL [id number] 03/14/23 11:15 DL Document 03/28/23 08:23 DL [id number] 03/28/23 08:33 DL Document 04/04/23 10:19 DL Desktop 04/04/23 10:28 DL Document 04/11/23 10:29 DL [id number] 04/11/23 10:36 DL 03/14/23 03/28/23 04/04/23 11:01 08: 10:19 Wound Center Nurse 1 #1- R HEEL -Current Size (cm) - Length 2 0.4 0.6 -Current Size (cm) - Width 0.2 0.4 0.5 -Current Size (cm) - Depth 0.2 0.1 0.3 -Total Square Cm 0.4 0.16 0.30 -Photo Taken Yes -Maximum Distance #2 (cm) 0.2 -Circular Undermining Yes -Exudate Amt Medium Small Small -Exudate Type Serosanguineous Serosanguineous Serosanguineous -Wound Margin Thickened Distinct, Distinct, Outline Outline Attached Attached -Granulation Amt Large (67-100%) Small (1-33%) Small (1-33%) -Granulation Quality Red [place] Red -Necrosis Amt Small (1-33%) Small (1-33%) Small (1-33%) -Necrotic Tissue Type Adherent Slough Adherent Slough Adherent Slough -Structure Exposed N/A N/A N/A -Texture (Lianna-wound Skin Appearance) Scarring Scarring Scarring -Moisture (Lianna-wound Skin Appearance) Maceration No Abnormality Dry/Scaly -Color (Lianna-wound Skin Appearance) No Abnormality No Abnormality Hemosiderin Staining -Temperature (Lianna-wound Skin No Abnormality No Abnormality No Abnormality Appearance) (Pt Warm) (Pt Warm) (Pt Warm) -Tenderness on Palpation (Lianna-wound No No Skin Appearance) -Ulcer Cleansing Soap and Water Soap and Water Soap and Water -Foul Odor after Cleansing No No No -Anesthetic Used 5% Lidocaine 5% Lidocaine 5% Lidocaine Gel Gel Gel 04/11/23 10:29 Wound Center Nurse 1 #1- R HEEL -Current Size (cm) - Length 0.1 -Current Size (cm) - Width 0.1 -Current Size (cm) - Depth 0.1 -Total Square Cm 0.01 -Photo Taken -Maximum Distance #2 (cm) -Circular Undermining -Exudate Amt None Present -Exudate Type -Wound Margin Thickened -Granulation Amt None Present (0 %) -Granulation Quality -Necrosis Amt Small (1-33%) -Necrotic Tissue Type Eschar -Structure Exposed N/A -Texture (Lianna-wound Skin Appearance) Scarring -Moisture (Lianna-wound Skin Appearance) Dry/Scaly -Color (Lianna-wound Skin Appearance) No Abnormality -Temperature (Lianna-wound Skin No Abnormality Appearance) (Pt Warm) -Tenderness on Palpation (Lianna-wound No Skin Appearance) -Ulcer Cleansing Soap and Water -Foul Odor after Cleansing No -Anesthetic Used 5% Lidocaine Gel WC - Nurse 2 - General Ulcer CM Notes Start: 03/14/23 11:00 Freq: Status: Active Protocol: Activity Type Activity Date Activity User E-sign Co-sign Detail Recorded Client Recorded Date Recorded By Document 03/14/23 11:50 PL [id number] 03/14/23 11:51 PL Document 03/21/23 12:00 [id number] 03/23/23 07:42 Document 03/28/23 08:50 [id number] 03/28/23 08:51 Edit Result 03/28/23 08:50 JF (1) [id number] 03/28/23 09:04 Document 04/04/23 10:51 [id number] 04/04/23 10:55 Document 04/11/23 11:01 [id number] 04/11/23 11:08 JF (1) #1- R HEEL - Bleeding Controlled with Pressure => Pressure,Silver => Nitrate 03/14/23 03/21/23 03/28/23 11:50 12:00 08:50 Wound Center Nurse 2 #1- R HEEL -Time 11:17 07:42 08:51 -Correct Patient Yes Yes Yes -Correct Side, Site, Position Yes Yes Yes -Correct Procedure Yes Yes Yes -Procedure Performed Yes Yes Yes -Type of Procedure Debridement Debridement Debridement -Clinical Debridement Subcutaneous Subcutaneous Subcutaneous -Tissue Removed Subcutaneous Subcutaneous Subcutaneous -Post Debridement (cm) - Length 1.0 0.7 0.5 -Post Debridement (cm) - Width 3.3 0.8 0.5 -Post Debridement (cm) - Depth 0.2 0.2 0.2 -Total Square (Post) (cm) 3.30 0.56 0.25 -Area of Debridement (cm) - Length 1.0 0.7 0.5 -Area of Debridement (cm) - Width 3.3 0.8 0.5 -Total Square (Area) (cm) 3.30 0.56 0.25 -Tunneling No No No -Undermining/Tunneling No No No -Circular Undermining No No No -Wound/Ulcer Outcome Not Healed Not Healed Not Healed -Ulcer Cleansing Rinsed/ Rinsed/ Rinsed/ Irrigated with Irrigated with Irrigated with Saline Saline Saline -Foul Odor after Cleansing No No No -Bioengineered Tissue No No No -Bleeding Controlled with Pressure Pressure Pressure,Silver Nitrate -Treatment Response Procedure Procedure Procedure Tolerated Well Tolerated Well Tolerated Well -Offloading Yes Yes -Type of Offloading Total Contact Total Contact Total Contact Cast (TCC) - Cast (TCC) - Cast (TCC) - Right ($) Right ($) Right ($) -Debridement - Subq, 1st 20sq cm Yes Yes Yes Pain Scale: 0-10 Numeric Is Patient Pain Free? Yes Yes Yes 04/04/23 04/11/23 10:51 11:01 Wound Center Nurse 2 #1- R HEEL -Time 10:51 11:07 -Correct Patient Yes Yes -Correct Side, Site, Position Yes Yes -Correct Procedure Yes Yes -Procedure Performed Yes Yes -Type of Procedure Debridement Debridement -Clinical Debridement Subcutaneous Subcutaneous -Tissue Removed Subcutaneous Subcutaneous -Post Debridement (cm) - Length 1.0 0.1 -Post Debridement (cm) - Width 0.5 0.2 -Post Debridement (cm) - Depth 0.2 0.1 -Total Square (Post) (cm) 0.50 0.02 -Area of Debridement (cm) - Length 1.0 0.1 -Area of Debridement (cm) - Width 0.5 0.2 -Total Square (Area) (cm) 0.50 0.02 -Tunneling No No -Undermining/Tunneling No No -Circular Undermining No No -Wound/Ulcer Outcome Not Healed Not Healed -Ulcer Cleansing Rinsed/ Rinsed/ Irrigated with Irrigated with Saline Saline -Foul Odor after Cleansing No No -Bioengineered Tissue No No -Bleeding Controlled with Pressure Pressure -Treatment Response Procedure Procedure Tolerated Well Tolerated Well -Offloading Yes Yes -Type of Offloading Total Contact Total Contact Cast (TCC) - Cast (TCC) - Right ($) Right ($) -Debridement - Subq, 1st 20sq cm Yes Yes Pain Scale: 0-10 Numeric Is Patient Pain Free? Yes Yes - Nurse 3 - General Ulcer D/C NN Start: 03/14/23 11:00 Freq: Status: Active Protocol: Activity Type Activity Date Activity User E-sign Co-sign Detail Recorded Client Recorded Date Recorded By Document 03/21/23 12:10 [id number] 03/23/23 07:43 Document 04/04/23 10:55 [id number] 04/04/23 10:56 03/21/23 04/04/23 12:10 10:55 Wound Care Center Nurse 3 #1- R HEEL -Ulcer Cleansing Rinsed/ Rinsed/ Irrigated with Irrigated with Saline Saline -Foul Odor after Cleansing No No -Primary Dressing Applied Silvercel Promogran Joelle Matter -Other Covering foam dressing -Promogran Joelle Matter 1 -[place]cel 0 Pain Scale: 0-10 Numeric Is Patient Pain Free? Yes Yes - Visit Discharge Discharge Condition Stable Stable Ambulatory Status Ambulatory, Ambulatory, Walker Walker Transportation Private Auto Private Auto Accompanied by Medication Reconcilliation completed & Yes Yes provided to patient/care provider Clinical Summary of Care Provided Yes Yes Notes: Size 3 TCC applied today. Patient tolerated well. 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 He was approved for Epicord/Epifix to this ulcer. He has received 10 application total (Epicord 7 applications, Epifix #3) with improvement in his ulcer. He has shown improvement in his ulcer with off loading with TCC. Wound care - Moistened Joelle topped with [place] SAP. Compression left leg double tubigrip. Offloading: He is amendable to have a total contact cast applied today and verbal consent was obtained.? This was applied according to standard protocol in a neutral position a well-padded manner.? He tolerated this well.? To keep clean, dry, and intact until follow-up visit. He was encouraged to only walk with a total contact cast while in the cast boot.? He was also instructed to not get the cast wet and to shower using cast bag.? He voices understanding of this. I discussed with him that he will not be able to visualize for signs and symptoms of infection while he is in a total contact cast.? I did discuss the signs and symptoms of infection today.? Informed him if he notices any redness moving up the leg, continued feeling of oozing, increasing odor, increasing pain, or if he experiences any fever greater than 101 degree, nausea, vomiting, or chills that he is to report straight to the ED for removal of the total contact cast for evaluation as these are signs of progressing infection.? He voices understanding of this today. A wound culture was obtained 08/30/22 which was positive for VRE, Kocuria kristinae, and Corynebacterium striatum completed Linezolid. Encouraged increase protein intake with low carbs to help with blood sugars and wound healing. He is on Doxycycline as suppressive treatment since he had his left knee replaced, this is prescribed by Orthopaedics. Follow up one week. Call or come in sooner if develop any concerns.
== END 2023-04-12 23:59 | disposition home or self-care (01) ==
LOC: WC 10:30
PROVIDERS: PCP Internal Medicine; Referring Provider Internal Medicine; Visit Provider Nurse Practitioner Family
DX: E11.621 Type 2 diabetes mellitus with foot ulcer (principal); L89.613 Pressure ulcer of right heel, stage 3; L97.512 Non-pressure chronic ulcer of other part of right foot with fat layer exposed; E11.42 Type 2 diabetes mellitus with diabetic polyneuropathy; Z79.4 Long term (current) use of insulin; E78.00 Pure hypercholesterolemia, unspecified; I10 Essential (primary) hypertension; I89.0 Lymphedema, not elsewhere classified; R60.0 Localized edema; Z79.82 Long term (current) use of aspirin; Z79.01 Long term (current) use of anticoagulants; Z79.899 Other long term (current) drug therapy; Z96.652 Presence of left artificial knee joint
CPT/HCPCS: 11042; 29445

== ENCOUNTER 2023-05-09 10:30 | Outpatient (RCR) | payer MEDICARE, BC, SELFPAY ==
[2023-04-13 00:15] VITALS: BP 137/84; PULSE 90; RESP 20; TEMP 36.2; BMI 46.5
[2023-04-18 09:38] VITALS: BP 151/79; PULSE 89; RESP 20; TEMP 35.9; BMI 46.5
--- NOTE | 2023-04-18 12:42 | PCM.WC.PN ---
History of Present Illness Date of Service: 04/18/23 Chief Complaint: Right heel ulcer History of Wound: 67 year old male presents to the wound center for evaluation of his right heal ulcer. It started as a a pressure ulcer in February when he he was in TCU and it healed. It then became a blister right before his Left TKR surgery. He had his left knee replaced 07/14/22 at [facility]. 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 He also has a history of diabetes, HTN, lymphedema, hypercholesterolemia and PE that he is on Xerelto. He currently has home health. Wound culture obtained on 08/30/22 which are positive for VRE, Kocuria kristinae and Corynebacterium striatum. He will completed the Linezolid. Foot xray 09/27/22 - Osteopenia with diffuse osteoarthritic changes. Diffuse soft tissue swelling with ossification of the distal Achilles tendon. No acute abnormality or evidence of erosive changes. Wound care - He has been approved for Epicord and Epifix and has received 10 applications total. Aquacel-Ag covered by gauze. He denies any fever, chills, nausea and vomiting. Progress of Wound: His right lateral heel ulcer is healed today. Will not reapply the TCC today since he is healed. Objective Data Objective Data Vital Signs: Vital Signs Temp Pulse Resp BP 96.7 F L 89 20 H 151/79 H 04/18/23 09:38 04/18/23 09:38 04/18/23 09:38 04/18/23 09:38 Weight: 343 lb Body Mass Index (BMI) 46.5 Charges/Coding Visit Charges Office Visits / Consults: 75714 OV L3 Est Physical Exam Const alert, oriented x3 and no apparent distress General Appearance: cooperative HEENT normocephalic Eyes General Eye: normal appearance of both eyes Neck General: normal visual inspection Lymph Lymphatic: no lymphadenopathy noted and no lymphedema noted Resp normal respiratory effort Cardio regular rate and regular rhythm Extremity normal capillary refill and no calf tenderness Extremity Narrative: DP and PT pulses palpable. Adequate capillary fill time to the digits of the right foot. +2 edema on left lower extremity. Right lower extremity was controlled with the TCC. Skin no rashes or lesions noted, skin turgor normal and no jaundice Neuro moves all extremities Debridement Note Debridement Note Wound debrided: Right posterior lateral heel Laterality: Right No debridement was completed: No debridement was completed today Post-Debridement Measurements and Additional Note: Post-Debridement Measurements/Treatment - Nurse 1 - General Ulcer Assessment Start: 04/18/23 09:38 Freq: Status: Active Protocol: NELL Activity Type Activity Date Activity User E-sign Co-sign Detail Recorded Client Recorded Date Recorded By Document 04/18/23 09:38 DL [id number] 04/18/23 09:47 DL 04/18/23 09:38 WC - Today's Visit Information Type of service Follow-up Visit (Physician/SUPERVISOR [employer]OSPH[employer]ID ) Arrival Mode Ambulatory Transfer Assistance None Patient Identification Verified (Name & Yes ) Patient Requires Transmission-Based No Precautions Finger Stick Blood Sugar(mg/dl) (if 127 indicated): Blood Sugar Stated by Patient Height and Weight Body Mass Index (BMI) 46.5 BMI Classification Obese Vital Signs Temperature (97.8 F-99.1 F) 96.7 F L Temperature Source Temporal Pulse Rate (60-100) 89 Pulse Location Monitor Respiratory Rate (12-18) 20 H Respiratory rate source Observation Blood Pressure (90/60-120/80) 151/79 H Blood Pressure Mean (mm Hg) 103 Source Monitor History Since Last Visit- (Skip if this is Patient's initial visit) Have you changed medications since your No last visit? Any new allergies or adverse reactions No Had a fall/change in ADL's that may No increase risk of falls Signs or symptoms of abuse and/or No neglect since last visit Have you been in the hospital since your No last visit? Has dressing in place as prescribed Yes Has compression in place as prescribed No Has offloadiing in place as prescribed Yes Experienced any changes in pain level or No management Right Footwear Total Contact Cast Pain Scale: 0-10 Numeric Is Patient Pain Free? Yes - Nurse 1 - General Ulcer Measurement Start: 04/18/23 09:38 Freq: Status: Active Protocol: Activity Type Activity Date Activity User E-sign Co-sign Detail Recorded Client Recorded Date Recorded By Document 04/18/23 09:38 DL [id number] 04/18/23 09:47 DL 04/18/23 09:38 Wound Center Nurse 1 #1- R HEEL -Current Size (cm) - Length 0.1 -Current Size (cm) - Width 0.1 -Current Size (cm) - Depth 0.1 -Total Square Cm 0.01 -Exudate Amt None Present -Wound Margin Thickened -Granulation Amt None Present (0 %) -Granulation Quality [place] -Necrosis Amt Small (1-33%) -Necrotic Tissue Type Adherent Slough -Structure Exposed N/A -Texture (Lianna-wound Skin Appearance) Scarring -Moisture (Lianna-wound Skin Appearance) No Abnormality -Color (Lianna-wound Skin Appearance) No Abnormality -Temperature (Lianna-wound Skin No Abnormality Appearance) (Pt Warm) -Tenderness on Palpation (Lianna-wound No Skin Appearance) -Ulcer Cleansing Soap and Water -Foul Odor after Cleansing No -Anesthetic Used 5% Lidocaine Gel - Nurse 2 - General Ulcer CM Notes Start: 04/18/23 09:38 Freq: Status: Active Protocol: Activity Type Activity Date Activity User E-sign Co-sign Detail Recorded Client Recorded Date Recorded By Document 04/18/23 10:11 [id number] 04/18/23 10:12 YASMINE 04/18/23 10:11 Wound Center Nurse 2 -Correct Patient No -Correct Side, Site, Position No -Correct Procedure No -Procedure Performed No -Post Debridement (cm) - Length 0 -Post Debridement (cm) - Width 0 -Post Debridement (cm) - Depth 0 -Total Square (Post) (cm) 0 -Area of Debridement (cm) - Length 0 -Area of Debridement (cm) - Width 0 -Total Square (Area) (cm) 0 -Wound/Ulcer Outcome Healed- Epithelialized Pain Scale: 0-10 Numeric Is Patient Pain Free? Yes - Nurse 3 - General Ulcer D/C NN Start: 04/18/23 09:38 Freq: Status: Active Protocol: Activity Type Activity Date Activity User E-sign Co-sign Detail Recorded Client Recorded Date Recorded By Document 04/18/23 10:32 [id number] 04/18/23 10:32 JOSE 04/18/23 10:32 Is Patient Pain Free? 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 He was approved for Epicord/Epifix to this ulcer. He has received 10 application total (Epicord 7 applications, Epifix #3) with improvement in his ulcer. Wound care - May covered with dry gauze to help prevent post op shoe from rubbing against fragile healed ulcer. Compression Double tubigrip bilateral. Offloading: Wear postop shoe until obtaining Diabetic shoes from podiatry (has an appointment scheduled next week with Dr. Dasilva). Be careful with activities that cause pressure or rubbing on the healed ulcer. A wound culture was obtained 08/30/22 which was positive for VRE, Kocuria kristinae, and Corynebacterium striatum completed Linezolid. Encouraged increase protein intake with low carbs to help with blood sugars and wound healing. He is on Doxycycline as suppressive treatment since he had his left knee replaced, this is prescribed by Orthopaedics. Follow up two weeks to make sure he is healing well. Call or come in sooner if develop any concerns.
--- NOTE | 2023-04-23 10:13 | WC ---
Patient's called in asking if she should still be covering her 's affected area longer with something since his order from last week said to keep dressing with ATB ointment on for 3 days and then stop. Spoke to Carolin Kim NP and she said it was okay for to pad and protect the healed area daily for a few more days to protect the area. She states she would feel better with this and verbalizes understanding. Patient is scheduled the following week to be seen.
[2023-05-09 10:15] VITALS: BP 161/107; PULSE 90; RESP 20; BMI 46.5
--- NOTE | 2023-05-09 11:16 | PCM.WC.PN ---
History of Present Illness Date of Service: 05/09/23 Chief Complaint: Right heel ulcer History of Wound: 67 year old male presents to the wound center for evaluation of his right heal ulcer. It started as a a pressure ulcer in February when he he was in TCU and it healed. It then became a blister right before his Left TKR surgery. He had his left knee replaced 07/14/22 at [facility]. 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 He also has a history of diabetes, HTN, lymphedema, hypercholesterolemia and PE that he is on Xerelto. He currently has home health. Wound culture obtained on 08/30/22 which are positive for VRE, Kocuria kristinae and Corynebacterium striatum. He will completed the Linezolid. Foot xray 09/27/22 - Osteopenia with diffuse osteoarthritic changes. Diffuse soft tissue swelling with ossification of the distal Achilles tendon. No acute abnormality or evidence of erosive changes. Wound care - He has been approved for Epicord and Epifix and has received 10 applications total. Aquacel-Ag covered by gauze. He denies any fever, chills, nausea and vomiting. Progress of Wound: His right lateral heel ulcer has reopened since his last visit. He has been wearing a post op shoe, and states that it has been rubbing. He has been fitted for new diabetic shoes from podiatry. He is waiting for insurance approval for the new shoes. Objective Data Objective Data Vital Signs: Vital Signs Temp Pulse Resp BP O2 Del Method 96.7 F L 90 20 H 161/107 H Room Air 04/18/23 09:38 05/09/23 10:15 05/09/23 10:15 05/09/23 10:15 05/09/23 10:15 Oxygen Delivery Method Room Air Weight: 343 lb Body Mass Index (BMI) 46.5 Charges/Coding Procedures Integumentary 111xxx-113xx: [id number] [place] subq tissue 20 sq cm/< Debridement Note Debridement Note Wound debrided: Right posterior lateral heel Laterality: Right Wound Grade/Stage: Gomez stage II Type of Debridement: Excisional debridement Anesthesia Used: 5% Lidocaine Gel Depth: Down to and including healthy tissue and in the subcutaneous layer Percentage of wound debrided: 100 Instrument Used: 3mm curette and #10 blade Tissue Removed: Removed non viable tissue and slough Severity: Fat Layer Exposed Amount of bleeding with debridement: Mild Bleeding Controlled with: Pressure and Compression and gauze Patient tolerated procedure: Patient tolerated procedure well Post-Debridement Measurements and Additional Note: Post-Debridement Measurements/Treatment - Nurse 1 - General Ulcer Assessment Start: 04/18/23 09:38 Freq: Status: Active Protocol: NELL Activity Type Activity Date Activity User E-sign Co-sign Detail Recorded Client Recorded Date Recorded By Document 04/18/23 09:38 DL [id number] 04/18/23 09:47 DL Document 05/09/23 10:15 KW Desktop 05/09/23 10:32 KW 04/18/23 05/09/23 09:38 10:15 - Today's Visit Information Type of service Follow-up Visit Follow-up Visit (Physician/FORMING ACID DUMPER (Physician/FORMING ACID DUMPER ) ) Arrival Mode Ambulatory Ambulatory, Walker Transfer Assistance None Accompanied by Patient Identification Verified (Name & Yes Yes ) Patient Requires Transmission-Based No Precautions Finger Stick Blood Sugar(mg/dl) (if 127 140 indicated): Blood Sugar Stated by Patient Height and Weight Body Mass Index (BMI) 46.5 46.5 BMI Classification Obese Obese Vital Signs Temperature (97.8 F-99.1 F) 96.7 F L Temperature Source Temporal Temporal Pulse Rate (60-100) 89 90 Pulse Location Monitor Monitor Respiratory Rate (12-18) 20 H 20 H Respiratory rate source Observation Observation Oxygen Delivery Method Room Air Blood Pressure (90/60-120/80) 151/79 H 161/107 H Blood Pressure Mean (mm Hg) 103 125 Source Monitor Monitor Position Semi-Fowlers Blood Pressure Location Left Arm History Since Last Visit- (Skip if this is Patient's initial visit) Have you changed medications since your No No last visit? Any new allergies or adverse reactions No No Had a fall/change in ADL's that may No No increase risk of falls Signs or symptoms of abuse and/or No No neglect since last visit Have you been in the hospital since your No No last visit? Has dressing in place as prescribed Yes Yes Has compression in place as prescribed No No Has offloadiing in place as prescribed Yes No Experienced any changes in pain level or No No management Left Footwear Regular Shoe Right Footwear Total Contact Surgical Shoe Cast with pressure relief insole Pain Scale: 0-10 Numeric Is Patient Pain Free? Yes Yes WC - Nurse 1 - General Ulcer Measurement Start: 04/18/23 09:38 Freq: Status: Active Protocol: Activity Type Activity Date Activity User E-sign Co-sign Detail Recorded Client Recorded Date Recorded By Document 04/18/23 09:38 DL [id number] 04/18/23 09:47 DL Document 05/09/23 10:15 KW Desktop 05/09/23 10:32 KW 04/18/23 05/09/23 09:38 10:15 Wound Center Nurse 1 #1- R HEEL -Current Size (cm) - Length 0.1 -Current Size (cm) - Width 0.1 -Current Size (cm) - Depth 0.1 -Total Square Cm 0.01 -Exudate Amt None Present -Wound Margin Thickened -Granulation Amt None Present (0 %) -Granulation Quality [place] -Necrosis Amt Small (1-33%) -Necrotic Tissue Type Adherent Slough -Structure Exposed N/A -Texture (Lianna-wound Skin Appearance) Scarring -Moisture (Lianna-wound Skin Appearance) No Abnormality -Color (Lianna-wound Skin Appearance) No Abnormality -Temperature (Lianna-wound Skin No Abnormality Appearance) (Pt Warm) -Tenderness on Palpation (Lianna-wound No Skin Appearance) -Ulcer Cleansing Soap and Water -Foul Odor after Cleansing No -Anesthetic Used 5% Lidocaine Gel #2- R HEEL -Current Size (cm) - Length 2.0 -Current Size (cm) - Width 1.5 -Current Size (cm) - Depth 0.1 -Total Square Cm 3.00 -Photo Taken Yes -Exudate Amt Small -Exudate Type Serous -Wound Margin Distinct, Outline Attached -Necrosis Amt Small (1-33%) -Necrotic Tissue Type Eschar -Texture (Lianna-wound Skin Appearance) Assessed -Moisture (Lianna-wound Skin Appearance) Assessed -Color (Lianna-wound Skin Appearance) Assessed -Temperature (Lianna-wound Skin No Abnormality Appearance) (Pt Warm) -Ulcer Cleansing Rinsed/ Irrigated with Saline -Anesthetic Used 5% Lidocaine Gel Right Calf (cm) 48 Right Ankle (cm) 28.5 WC - Nurse 2 - General Ulcer CM Notes Start: 04/18/23 09:38 Freq: Status: Active Protocol: Activity Type Activity Date Activity User E-sign Co-sign Detail Recorded Client Recorded Date Recorded By Document 04/18/23 10:11 [id number] 04/18/23 10:12 Document 05/09/23 10:48 Desktop 05/09/23 10:53 JF 04/18/23 05/09/23 10:11 10:48 Wound Center Nurse 2 #1- R HEEL -Correct Patient No -Correct Side, Site, Position No -Correct Procedure No -Procedure Performed No -Post Debridement (cm) - Length 0 -Post Debridement (cm) - Width 0 -Post Debridement (cm) - Depth 0 -Total Square (Post) (cm) 0 -Area of Debridement (cm) - Length 0 -Area of Debridement (cm) - Width 0 -Total Square (Area) (cm) 0 -Wound/Ulcer Outcome Healed- Epithelialized #2- R HEEL -Time 10:50 -Correct Patient Yes -Correct Side, Site, Position Yes -Correct Procedure Yes -Procedure Performed Yes -Type of Procedure Debridement -Clinical Debridement Subcutaneous -Tissue Removed Subcutaneous -Post Debridement (cm) - Length 2.0 -Post Debridement (cm) - Width 1.8 -Post Debridement (cm) - Depth 0.1 -Total Square (Post) (cm) 3.60 -Area of Debridement (cm) - Length 2.0 -Area of Debridement (cm) - Width 1.8 -Total Square (Area) (cm) 3.60 -Tunneling No -Undermining/Tunneling No -Circular Undermining No -Wound/Ulcer Outcome Not Healed -Ulcer Cleansing Rinsed/ Irrigated with Saline -Foul Odor after Cleansing No -Bioengineered Tissue No -Bleeding Controlled with Pressure -Treatment Response Procedure Tolerated Well -Offloading No -Debridement - Subq, 1st 20sq cm Yes Pain Scale: 0-10 Numeric Is Patient Pain Free? Yes Yes WC - Nurse 3 - General Ulcer D/C NN Start: 04/18/23 09:38 Freq: Status: Active Protocol: Activity Type Activity Date Activity User E-sign Co-sign Detail Recorded Client Recorded Date Recorded By Document 04/18/23 10:32 [id number] 04/18/23 10:32 04/18/23 10:32 Is Patient Pain Free? Yes WC - Visit Discharge Discharge Condition Stable Ambulatory Status Ambulatory, Wheelchair Transportation Private Auto Medication Reconcilliation completed & No provided to patient/care provider Clinical Summary of Care Provided Yes Assessment/Plan Assessment/Plan (1) Pressure ulcer of right heel, stage 3: CODE(S): L89.613 - Pressure ulcer of right heel, stage 3 (2) 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 He was approved for Epicord/Epifix to this ulcer. He has received 10 application total (Epicord 7 applications, Epifix #3) with improvement in his ulcer. Wound care - Joelle covered by gauze daily. Tape securely so it does not slip. Compression Double tubigrip bilateral. Offloading: Wear regular shoe since postop shoe slips. Avoid wearing shoe when not walking. Wear heel cover/protector while in bed ( states he has restless leg syndrome and rubs his feet against the bed when he sleeps). Be careful with activities that cause pressure or rubbing on the healed ulcer. A wound culture was obtained 08/30/22 which was positive for VRE, Kocuria kristinae, and Corynebacterium striatum completed Linezolid. Encouraged increase protein intake with low carbs to help with blood sugars and wound healing. He is on Doxycycline as suppressive treatment since he had his left knee replaced, this is prescribed by Orthopaedics. Follow up two weeks. Call or come in sooner if develop any concerns.
== END 2023-05-12 23:59 | disposition home or self-care (01) ==
LOC: WC 10:30
PROVIDERS: PCP Internal Medicine; Referring Provider Internal Medicine; Visit Provider Nurse Practitioner Family
DX: E11.621 Type 2 diabetes mellitus with foot ulcer (principal); L97.512 Non-pressure chronic ulcer of other part of right foot with fat layer exposed; E11.42 Type 2 diabetes mellitus with diabetic polyneuropathy; Z79.4 Long term (current) use of insulin; I10 Essential (primary) hypertension; E78.00 Pure hypercholesterolemia, unspecified; I89.0 Lymphedema, not elsewhere classified; R60.0 Localized edema; Z86.711 Personal history of pulmonary embolism; Z79.01 Long term (current) use of anticoagulants; Z96.652 Presence of left artificial knee joint
CPT/HCPCS: 11042; 99213; G0463

== ENCOUNTER 2023-06-06 10:45 | Outpatient (RCR) | payer MEDICARE, BC, SELFPAY ==
[2023-05-13 00:36] VITALS: BP 161/107; PULSE 90; RESP 20; TEMP 35.9; BMI 46.5
[2023-05-16 10:38] VITALS: BP 160/94; PULSE 86; RESP 16; TEMP 37.1; BMI 46.5
--- NOTE | 2023-05-16 11:54 | PCM.WC.PN ---
History of Present Illness Date of Service: 05/16/23 Chief Complaint: Right heel ulcer History of Wound: 67 year old male presents to the wound center for evaluation of his right heal ulcer. It started as a a pressure ulcer in February when he he was in TCU and it healed. It then became a blister right before his Left TKR surgery. He had his left knee replaced 07/14/22 at [facility]. 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 He also has a history of diabetes, HTN, lymphedema, hypercholesterolemia and PE that he is on Xerelto. He currently has home health. Wound culture obtained on 08/30/22 which are positive for VRE, Kocuria kristinae and Corynebacterium striatum. He will completed the Linezolid. Foot xray 09/27/22 - Osteopenia with diffuse osteoarthritic changes. Diffuse soft tissue swelling with ossification of the distal Achilles tendon. No acute abnormality or evidence of erosive changes. Wound care - He has been approved for Epicord and Epifix and has received 10 applications total. Aquacel-Ag covered by gauze. He denies any fever, chills, nausea and vomiting. Progress of Wound: His right lateral heel ulcer is smaller this week. He has been wearing regular shoes and is not having a the rubbing that he had with the post op shoe. He said his new diabetic shoes have come in and he will be picking them up later in the week. Objective Data Objective Data Vital Signs: Vital Signs Temp Pulse Resp BP 98.7 F 86 16 160/94 H 05/16/23 10:38 05/16/23 10:38 05/16/23 10:38 05/16/23 10:38 Weight: 343 lb Body Mass Index (BMI) 46.5 Debridement Note Debridement Note Post-Debridement Measurements and Additional Note: Post-Debridement Measurements/Treatment LAM - Nurse 1 - General Ulcer Assessment Start: 05/16/23 10:37 Freq: Status: Active Protocol: LAM.LOWEXT Activity Type Activity Date Activity User E-sign Co-sign Detail Recorded Client Recorded Date Recorded By Document 05/16/23 10:38 YASMINE Laptop 05/16/23 10:39 YASMINE 05/16/23 10:38 LAM - Today's Visit Information Type of service Follow-up Visit (Physician/REGIONAL MARKETING DIRECTOR ) Arrival Mode Ambulatory, Walker Patient Identification Verified (Name & Yes ) Patient Requires Transmission-Based No Precautions Height and Weight Body Mass Index (BMI) 46.5 BMI Classification Obese Vital Signs Temperature (97.8 F-99.1 F) 98.7 F Temperature Source Temporal Pulse Rate (60-100) 86 Pulse Location Monitor Respiratory Rate (12-18) 16 Respiratory rate source Observation Blood Pressure (90/60-120/80) 160/94 H Blood Pressure Mean (mm Hg) 116 Source Monitor Position Sitting Blood Pressure Location Right Forearm History Since Last Visit- (Skip if this is Patient's initial visit) Have you changed medications since your No last visit? Any new allergies or adverse reactions No Had a fall/change in ADL's that may No increase risk of falls Signs or symptoms of abuse and/or No neglect since last visit Have you been in the hospital since your No last visit? Has dressing in place as prescribed Yes Has compression in place as prescribed Yes Has offloadiing in place as prescribed Yes Experienced any changes in pain level or No management Left Footwear Regular Shoe Right Footwear Regular Shoe Pain Scale: 0-10 Numeric Is Patient Pain Free? Yes WC - Nurse 1 - General Ulcer Measurement Start: 05/16/23 10:37 Freq: Status: Active Protocol: Activity Type Activity Date Activity User E-sign Co-sign Detail Recorded Client Recorded Date Recorded By Document 05/16/23 10:38 Laptop 05/16/23 10:39 05/16/23 10:38 Wound Center Nurse 1 #2- R HEEL -Combined with other wound No -Current Size (cm) - Length 0.1 -Current Size (cm) - Width 0.1 -Current Size (cm) - Depth 0.1 -Total Square Cm 0.01 -Photo Taken No -Epithelialization Large 67-100% -Tunneling No -Undermining/Tunneling No -Circular Undermining No -Exudate Amt None Present -Wound Margin Flat & Intact -Granulation Amt Large (67-100%) -Granulation Quality Red -Slough/Fibrin No -Structure Exposed N/A -Texture (Lianna-wound Skin Appearance) Assessed, Scarring -Moisture (Lianna-wound Skin Appearance) Assessed,Dry/ Scaly -Color (Lianna-wound Skin Appearance) Assessed -Temperature (Lianna-wound Skin No Abnormality Appearance) (Pt Warm) -Tenderness on Palpation (Lianna-wound No Skin Appearance) -Ulcer Cleansing Rinsed/ Irrigated with Saline -Foul Odor after Cleansing No Lower Limb Edema Present NA LAM - Nurse 2 - General Ulcer CM Notes Start: 05/16/23 10:37 Freq: Status: Active Protocol: Activity Type Activity Date Activity User E-sign Co-sign Detail Recorded Client Recorded Date Recorded By Document 05/16/23 10:51 Laptop 05/16/23 10:57 05/16/23 10:51 Wound Center Nurse 2 #2- R HEEL -Time 10:54 -Correct Patient Yes -Correct Side, Site, Position Yes -Correct Procedure Yes -Procedure Performed Yes -Type of Procedure Debridement -Clinical Debridement Subcutaneous -Tissue Removed Subcutaneous -Post Debridement (cm) - Length 1.3 -Post Debridement (cm) - Width 1.1 -Post Debridement (cm) - Depth 0.1 -Total Square (Post) (cm) 1.43 -Area of Debridement (cm) - Length 1.3 -Area of Debridement (cm) - Width 1.1 -Total Square (Area) (cm) 1.43 -Tunneling No -Undermining/Tunneling No -Circular Undermining No -Wound/Ulcer Outcome Healed- Epithelialized -Ulcer Cleansing Rinsed/ Irrigated with Saline -Foul Odor after Cleansing No -Bioengineered Tissue No -Bleeding Controlled with Pressure,Silver Nitrate -Treatment Response Procedure Tolerated Well -Offloading No -Other Type of Offloading diabetic shoes -Debridement - Subq, 1st 20sq cm Yes Pain Scale: 0-10 Numeric Is Patient Pain Free? Yes LAM - Nurse 3 - General Ulcer D/C NN Start: 05/16/23 10:37 Freq: Status: Active Protocol: Activity Type Activity Date Activity User E-sign Co-sign Detail Recorded Client Recorded Date Recorded By Document 05/16/23 11:02 DL Desktop 05/16/23 11:05 DL 05/16/23 11:02 Wound Care Center Nurse 3 #2- R HEEL -Ulcer Cleansing Rinsed/ Irrigated with Saline -Foul Odor after Cleansing No -Primary Dressing Applied Promogran Joelle Matter -Primary Dressing Covered/Secured with Dry Gauze & Roll Gauze, Secured with Tape -Promogran Joelle Matter 1 Right -Tubular Bandage Single Layer -Size of Tubigrip Used Size E -Size E ($) 1 Treatment Response Procedure Tolerated Well Pain Scale: 0-10 Numeric Is Patient Pain Free? Yes WC - Visit Discharge Discharge Condition Stable Ambulatory Status Ambulatory Transportation Private Auto Notes: dressing applied per Cathi Stearns
--- NOTE | 2023-05-16 12:36 | PN.PCM_ITS ---
History of Present Illness Date of Service: 05/16/23 Chief Complaint: Right heel ulcer History of Wound: 67 year old male presents to the wound center for evaluation of his right heal ulcer. It started as a a pressure ulcer in February when he he was in TCU and it healed. It then became a blister right before his Left TKR surgery. He had his left knee replaced 07/14/22 at [facility]. 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 He also has a history of diabetes, HTN, lymphedema, hypercholesterolemia and PE that he is on Xerelto. He currently has home health. Wound culture obtained on 08/30/22 which are positive for VRE, Kocuria kristinae and Corynebacterium striatum. He will completed the Linezolid. Foot xray 09/27/22 - Osteopenia with diffuse osteoarthritic changes. Diffuse soft tissue swelling with ossification of the distal Achilles tendon. No acute abnormality or evidence of erosive changes. Wound care - He has been approved for Epicord and Epifix and has received 10 applications total. Aquacel-Ag covered by gauze. He denies any fever, chills, nausea and vomiting. Progress of Wound: His right lateral heel ulcer is smaller this week. He has been wearing regular shoes and is not having a the rubbing that he had with the post op shoe. He said his new diabetic shoes have come in and he will be picking them up later in the week. Objective Data Objective Data Vital Signs: Vital Signs Temp Pulse Resp BP 98.7 F 86 16 160/94 H 05/16/23 10:38 05/16/23 10:38 05/16/23 10:38 05/16/23 10:38 Weight: 343 lb Body Mass Index (BMI) 46.5 Charges/Coding Procedures Integumentary 111xxx-113xx: 54785 [place] subq tissue 20 sq cm/< Debridement Note Debridement Note Wound debrided: Right posterior lateral heel Laterality: Right Wound Grade/Stage: Gomez stage II Type of Debridement: Excisional debridement Anesthesia Used: 5% Lidocaine Gel Depth: Down to and including healthy tissue and in the subcutaneous layer Percentage of wound debrided: 100 Instrument Used: 3mm curette and - (scissors) Tissue Removed: Removed non viable tissue and slough Severity: Fat Layer Exposed Amount of bleeding with debridement: Mild Bleeding Controlled with: Pressure, Compression and gauze and Silver Nitrate (to one area that wouldn't stop oozing) Patient tolerated procedure: Patient tolerated procedure well Post-Debridement Measurements and Additional Note: Post-Debridement Measurements/Treatment - Nurse 1 - General Ulcer Assessment Start: 05/16/23 10:37 Freq: Status: Active Protocol: NELL Activity Type Activity Date Activity User E-sign Co-sign Detail Recorded Client Recorded Date Recorded By Document 05/16/23 10:38 Laptop 05/16/23 10:39 05/16/23 10:38 - Today's Visit Information Type of service 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 ) Arrival Mode Ambulatory, Walker Patient Identification Verified (Name & Yes ) Patient Requires Transmission-Based No Precautions Height and Weight Body Mass Index (BMI) 46.5 BMI Classification Obese Vital Signs Temperature (97.8 F-99.1 F) 98.7 F Temperature Source Temporal Pulse Rate (60-100) 86 Pulse Location Monitor Respiratory Rate (12-18) 16 Respiratory rate source Observation Blood Pressure (90/60-120/80) 160/94 H Blood Pressure Mean (mm Hg) 116 Source Monitor Position Sitting Blood Pressure Location Right Forearm History Since Last Visit- (Skip if this is Patient's initial visit) Have you changed medications since your No last visit? Any new allergies or adverse reactions No Had a fall/change in ADL's that may No increase risk of falls Signs or symptoms of abuse and/or No neglect since last visit Have you been in the hospital since your No last visit? Has dressing in place as prescribed Yes Has compression in place as prescribed Yes Has offloadiing in place as prescribed Yes Experienced any changes in pain level or No management Left Footwear Regular Shoe Right Footwear Regular Shoe Pain Scale: 0-10 Numeric Is Patient Pain Free? Yes - Nurse 1 - General Ulcer Measurement Start: 05/16/23 10:37 Freq: Status: Active Protocol: Activity Type Activity Date Activity User E-sign Co-sign Detail Recorded Client Recorded Date Recorded By Document 05/16/23 10:38 Laptop 05/16/23 10:39 YASMINE 05/16/23 10:38 Wound Center Nurse 1 #2- R HEEL -Combined with other wound No -Current Size (cm) - Length 0.1 -Current Size (cm) - Width 0.1 -Current Size (cm) - Depth 0.1 -Total Square Cm 0.01 -Photo Taken No -Epithelialization Large 67-100% -Tunneling No -Undermining/Tunneling No -Circular Undermining No -Exudate Amt None Present -Wound Margin Flat & Intact -Granulation Amt Large (67-100%) -Granulation Quality Red -Slough/Fibrin No -Structure Exposed N/A -Texture (Lianna-wound Skin Appearance) Assessed, Scarring -Moisture (Lianna-wound Skin Appearance) Assessed,Dry/ Scaly -Color (Lianna-wound Skin Appearance) Assessed -Temperature (Lianna-wound Skin No Abnormality Appearance) (Pt Warm) -Tenderness on Palpation (Lianna-wound No Skin Appearance) -Ulcer Cleansing Rinsed/ Irrigated with Saline -Foul Odor after Cleansing No Lower Limb Edema Present NA - Nurse 2 - General Ulcer CM Notes Start: 05/16/23 10:37 Freq: Status: Active Protocol: Activity Type Activity Date Activity User E-sign Co-sign Detail Recorded Client Recorded Date Recorded By Document 05/16/23 10:51 Laptop 05/16/23 10:57 05/16/23 10:51 Wound Center Nurse 2 #2- R HEEL -Time 10:54 -Correct Patient Yes -Correct Side, Site, Position Yes -Correct Procedure Yes -Procedure Performed Yes -Type of Procedure Debridement -Clinical Debridement Subcutaneous -Tissue Removed Subcutaneous -Post Debridement (cm) - Length 1.3 -Post Debridement (cm) - Width 1.1 -Post Debridement (cm) - Depth 0.1 -Total Square (Post) (cm) 1.43 -Area of Debridement (cm) - Length 1.3 -Area of Debridement (cm) - Width 1.1 -Total Square (Area) (cm) 1.43 -Tunneling No -Undermining/Tunneling No -Circular Undermining No -Wound/Ulcer Outcome Healed- Epithelialized -Ulcer Cleansing Rinsed/ Irrigated with Saline -Foul Odor after Cleansing No -Bioengineered Tissue No -Bleeding Controlled with Pressure,Silver Nitrate -Treatment Response Procedure Tolerated Well -Offloading No -Other Type of Offloading diabetic shoes -Debridement - Subq, 1st 20sq cm Yes Pain Scale: 0-10 Numeric Is Patient Pain Free? Yes - Nurse 3 - General Ulcer D/C NN Start: 05/16/23 10:37 Freq: Status: Active Protocol: Activity Type Activity Date Activity User E-sign Co-sign Detail Recorded Client Recorded Date Recorded By Document 05/16/23 11:02 DL Desktop 05/16/23 11:05 DL 05/16/23 11:02 Wound Care Center Nurse 3 #2- R HEEL -Ulcer Cleansing Rinsed/ Irrigated with Saline -Foul Odor after Cleansing No -Primary Dressing Applied Promogran Joelle Matter -Primary Dressing Covered/Secured with Dry Gauze & Roll Gauze, Secured with Tape -Promogran Joelle Matter 1 Right -Tubular Bandage Single Layer -Size of Tubigrip Used Size E -Size E ($) 1 Treatment Response Procedure Tolerated Well Pain Scale: 0-10 Numeric Is Patient Pain Free? Yes WC - Visit Discharge Discharge Condition Stable Ambulatory Status Ambulatory Transportation Private Auto Notes: dressing applied per Cathi lau . 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 He was approved for Epicord/Epifix to this ulcer. He has received 10 application total (Epicord 7 applications, Epifix #3) with improvement in his ulcer. Wound care - Moistened Joelle covered by gauze daily. Tape securely so it does not slip. Compression Double tubigrip bilateral. Offloading: Wear regular shoe since postop shoe slips. 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 Wear heel cover/protector while in bed ( states he has restless leg syndrome and rubs his feet against the bed when he sleeps). Be careful with activities that cause pressure or rubbing on the healed ulcer. A wound culture was obtained 08/30/22 which was positive for VRE, Kocuria kristinae, and Corynebacterium striatum completed Linezolid. Encouraged increase protein intake with low carbs to help with blood sugars and wound healing. He is on Doxycycline as suppressive treatment since he had his left knee replace d, this is prescribed by Orthopaedics. Follow up one weeks. Call or come in sooner if develop any concerns.
[2023-05-23 10:46] VITALS: BP 159/84; PULSE 111; RESP 18; TEMP 36.3; BMI 46.5
--- NOTE | 2023-05-23 11:41 | PN.PCM_ITS ---
History of Present Illness Date of Service: 05/23/23 Chief Complaint: Right heel ulcer History of Wound: 67 year old male presents to the wound center for evaluation of his right heal ulcer. It started as a a pressure ulcer in February when he he was in TCU and it healed. It then became a blister right before his Left TKR surgery. He had his [facility]. 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 He also has a history of diabetes, HTN, lymphedema, hypercholesterolemia and PE that he is on Xerelto. He currently has home health. Wound culture obtained on 08/30/22 which are positive for VRE, Kocuria kristinae and Corynebacterium striatum. He will completed the Linezolid. Foot xray 09/27/22 - Osteopenia with diffuse osteoarthritic changes. Diffuse soft tissue swelling with ossification of the distal Achilles tendon. No acute abnormality or evidence of erosive changes. Wound care - He has been approved for Epicord and Epifix and has received 10 applications total. Aquacel-Ag covered by gauze. He denies any fever, chills, nausea and vomiting. Progress of Wound: His right lateral heel ulcer is smaller this week. He has been wearing his new diabetic shoes with no issues. Objective Data Objective Data Vital Signs: Vital Signs Temp Pulse Resp BP 97.4 F L 111 H 18 159/84 H 05/23/23 10:46 05/23/23 10:46 05/23/23 10:46 05/23/23 10:46 Weight: 343 lb Body Mass Index (BMI) 46.5 Charges/Coding Procedures Integumentary 111xxx-113xx: [id number] [place] subq tissue 20 sq cm/< Debridement Note Debridement Note Wound debrided: Right posterior lateral heel Laterality: Right Wound Grade/Stage: Gomez stage II Type of Debridement: Excisional debridement Anesthesia Used: 5% Lidocaine Gel Depth: Down to and including healthy tissue and in the subcutaneous layer Percentage of wound debrided: 100 Instrument Used: 3mm curette and - (scissors and pick ups) Tissue Removed: Removed non viable tissue and slough Severity: Fat Layer Exposed Amount of bleeding with debridement: Mild Bleeding Controlled with: Pressure, Compression and gauze and Silver Nitrate (to one area that wouldn't stop oozing) Patient tolerated procedure: Patient tolerated procedure well Post-Debridement Measurements and Additional Note: Post-Debridement Measurements/Treatment WC - Nurse 1 - General Ulcer Assessment Start: 05/16/23 10:37 Freq: Status: Active Protocol: NELL Activity Type Activity Date Activity User E-sign Co-sign Detail Recorded Client Recorded Date Recorded By Document 05/16/23 10:38 JF Laptop 05/16/23 10:39 JF Document 05/23/23 10:46 DL Desktop 05/23/23 10:51 DL 05/16/23 05/23/23 10:38 10:46 WC - Today's Visit Information Type of service Follow-up Visit Follow-up Visit (Physician/SHIPWRIGHT HELPER (Physician/SHIPWRIGHT HELPER ) ) Arrival Mode Ambulatory, Ambulatory Walker Transfer Assistance None Patient Identification Verified (Name & Yes Yes ) Patient Requires Transmission-Based No No Precautions Height and Weight Body Mass Index (BMI) 46.5 46.5 BMI Classification Obese Obese Vital Signs Temperature (97.8 F-99.1 F) 98.7 F 97.4 F L Temperature Source Temporal Temporal Pulse Rate (60-100) 86 111 H Pulse Location Monitor Monitor Respiratory Rate (12-18) 16 18 Respiratory rate source Observation Observation Blood Pressure (90/60-120/80) 160/94 H 159/84 H Blood Pressure Mean (mm Hg) 116 109 Source Monitor Monitor Position Sitting Blood Pressure Location Right Forearm History Since Last Visit- (Skip if this is Patient's initial visit) Have you changed medications since your No No last visit? Any new allergies or adverse reactions No No Had a fall/change in ADL's that may No No increase risk of falls Signs or symptoms of abuse and/or No No neglect since last visit Have you been in the hospital since your No No last visit? Has dressing in place as prescribed Yes Yes Has compression in place as prescribed Yes N/A Has offloadiing in place as prescribed Yes Yes Experienced any changes in pain level or No No management Left Footwear Regular Shoe Right Footwear Regular Shoe Pain Scale: 0-10 Numeric Is Patient Pain Free? Yes Yes LAM Abreu Nurse 1 - General Ulcer Measurement Start: 05/16/23 10:37 Freq: Status: Active Protocol: Activity Type Activity Date Activity User E-sign Co-sign Detail Recorded Client Recorded Date Recorded By Document 05/16/23 10:38 Laptop 05/16/23 10:39 Document 05/23/23 10:46 DL Desktop 05/23/23 10:51 DL 05/16/23 05/23/23 10:38 10:46 Wound Center Nurse 1 #2- R HEEL -Combined with other wound No -Current Size (cm) - Length 0.1 1 -Current Size (cm) - Width 0.1 1 -Current Size (cm) - Depth 0.1 0.2 -Total Square Cm 0.01 1 -Photo Taken No -Epithelialization Large 67-100% -Tunneling No -Undermining/Tunneling No -Circular Undermining No -Exudate Amt None Present Small -Exudate Type Serosanguineous -Wound Margin Flat & Intact Distinct, Outline Attached -Granulation Amt Large (67-100%) Small (1-33%) -Granulation Quality [place] -Slough/Fibrin No -Necrosis Amt Large (67-100%) -Necrotic Tissue Type Adherent Slough -Structure Exposed N/A N/A -Texture (Lianna-wound Skin Appearance) Assessed, Scarring Scarring -Moisture (Lianna-wound Skin Appearance) Assessed,Dry/ No Abnormality Scaly -Color (Lianna-wound Skin Appearance) Assessed No Abnormality -Temperature (Lianna-wound Skin No Abnormality No Abnormality Appearance) (Pt Warm) (Pt Warm) -Tenderness on Palpation (Lianna-wound No No Skin Appearance) -Ulcer Cleansing Rinsed/ Soap and Water Irrigated with Saline -Foul Odor after Cleansing No No -Anesthetic Used 5% Lidocaine Gel Lower Limb Edema Present NA Right Calf (cm) 47 Right Ankle (cm) 27 WC - Nurse 2 - General Ulcer CM Notes Start: 05/16/23 10:37 Freq: Status: Active Protocol: Activity Type Activity Date Activity User E-sign Co-sign Detail Recorded Client Recorded Date Recorded By Document 05/16/23 10:51 Laptop 05/16/23 10:57 Document 05/23/23 10:59 Laptop 05/23/23 11:08 05/16/23 05/23/23 10:51 10:59 Wound Center Nurse 2 #2- R HEEL -Time 10:54 11:00 -Correct Patient Yes Yes -Correct Side, Site, Position Yes Yes -Correct Procedure Yes Yes -Procedure Performed Yes Yes -Type of Procedure Debridement Debridement -Clinical Debridement Subcutaneous Subcutaneous -Tissue Removed Subcutaneous Subcutaneous -Post Debridement (cm) - Length 1.3 1.9 -Post Debridement (cm) - Width 1.1 2.0 -Post Debridement (cm) - Depth 0.1 0.1 -Total Square (Post) (cm) 1.43 3.80 -Area of Debridement (cm) - Length 1.3 1.9 -Area of Debridement (cm) - Width 1.1 2.0 -Total Square (Area) (cm) 1.43 3.80 -Tunneling No No -Undermining/Tunneling No No -Circular Undermining No No -Wound/Ulcer Outcome Healed- Not Healed Epithelialized -Ulcer Cleansing Rinsed/ Rinsed/ Irrigated with Irrigated with Saline Saline -Foul Odor after Cleansing No No -Bioengineered Tissue No No -Bleeding Controlled with Pressure,Silver Pressure Nitrate -Treatment Response Procedure Procedure Tolerated Well Tolerated Well -Offloading No No -Other Type of Offloading diabetic shoes -Assistive Device(s) Cane -Debridement - Subq, 1st 20sq cm Yes Yes Pain Scale: 0-10 Numeric Is Patient Pain Free? Yes Yes - Nurse 3 - General Ulcer D/C NN Start: 05/16/23 10:37 Freq: Status: Active Protocol: Activity Type Activity Date Activity User E-sign Co-sign Detail Recorded Client Recorded Date Recorded By Document 05/16/23 11:02 Desktop 05/16/23 11:05 DL Document 05/23/23 11:11 Laptop 05/23/23 11:14 05/16/23 05/23/23 11:02 11:11 Wound Care Center Nurse 3 #2- R HEEL -Ulcer Cleansing Rinsed/ Rinsed/ Irrigated with Irrigated with Saline Saline -Foul Odor after Cleansing No No -Primary Dressing Applied Promogran NonAdherent Joelle Matter Contact Layer, Promogran Joelle Matter -Primary Dressing Covered/Secured with Dry Gauze & Roll Gauze, Secured with Tape -Promogran Joelle Matter 1 0 Right -Tubular Bandage Single Layer -Size of Tubigrip Used Size E -Size E ($) 1 Treatment Response Procedure Tolerated Well Pain Scale: 0-10 Numeric Is Patient Pain Free? Yes Yes - Visit Discharge Discharge Condition Stable Stable Ambulatory Status Ambulatory Ambulatory, Walker Transportation Private Auto Private Auto Accompanied by Medication Reconcilliation completed & Yes provided to patient/care provider Clinical Summary of Care Provided Yes Notes: dressing applied per Cathi lau . 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 He was approved for Epicord/Epifix to this ulcer. He has received 10 application total (Epicord 7 applications, Epifix #3) with improvement in his ulcer. Wound care - Moistened Joelle covered by adaptic and topped with gauze daily. Tape securely so it does not slip. Compression Double tubigrip bilateral. Offloading: Wear diabetic shoes. Wear heel cover/protector while in bed ( states he has restless leg syndrome and rubs his feet against the bed when he sleeps). Be careful with activities that cause pressure or rubbing on the healed ulcer. A wound culture was obtained 08/30/22 which was positive for VRE, Kocuria kristinae, and Corynebacterium striatum completed Linezolid. Encouraged increase protein intake with low carbs to help with blood sugars and wound healing. He is on Doxycycline as suppressive treatment since he had his left knee replaced, this is prescribed by Orthopaedics. Follow up one weeks. Call or come in sooner if develop any concerns.
[2023-05-30 10:29] VITALS: BP 165/69; PULSE 92; RESP 22; TEMP 36.4; BMI 46.5
--- NOTE | 2023-05-30 12:00 | PCM.WC.PN ---
History of Present Illness Date of Service: 05/30/23 Chief Complaint: Right heel ulcer History of Wound: 67 year old male presents to the wound center for evaluation of his right heal ulcer. It started as a a pressure ulcer in February when he he was in TCU and it healed. It then became a blister right before his Left TKR surgery. He had his left knee replaced 07/14/22 at [facility]. 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 He also has a history of diabetes, HTN, lymphedema, hypercholesterolemia and PE that he is on Xerelto. He currently has home health. Wound culture obtained on 08/30/22 which are positive for VRE, Kocuria kristinae and Corynebacterium striatum. He will completed the Linezolid. Foot xray 09/27/22 - Osteopenia with diffuse osteoarthritic changes. Diffuse soft tissue swelling with ossification of the distal Achilles tendon. No acute abnormality or evidence of erosive changes. Wound care - He has been approved for Epicord and Epifix and has received 10 applications total. Joelle covered by gauze. He denies any fever, chills, nausea and vomiting. Progress of Wound: His right lateral heel ulcer is smaller this week. He has been wearing his new diabetic shoes with no issues. He has bruising around his left ankle. He has lymphedema in his left leg, which he has not been using his compression pumps. Believe the bruising may be caused by him using a shoe horn to prevent his new diabetic shoe tongue from folding over and with the swelling on his feet and ankle, it is putting too much pressure, causing the bruising. Objective Data Objective Data Vital Signs: Vital Signs Temp Pulse Resp BP 97.5 F L 92 22 H 165/69 H 05/30/23 10:29 05/30/23 10:29 05/30/23 10:29 05/30/23 10:29 Weight: 343 lb Body Mass Index (BMI) 46.5 Charges/Coding Procedures Integumentary [id number]: [id number] [place] subq tissue 20 sq cm/< Debridement Note Debridement Note Wound debrided: Right posterior lateral heel Laterality: Right Wound Grade/Stage: Gomez stage II Type of Debridement: Excisional debridement Anesthesia Used: 5% Lidocaine Gel Depth: Down to and including healthy tissue and in the subcutaneous layer Percentage of wound debrided: 100 Instrument Used: 5mm curette Tissue Removed: Removed non viable tissue and slough Severity: Fat Layer Exposed Amount of bleeding with debridement: Mild Bleeding Controlled with: Pressure, Compression and gauze and Silver Nitrate (to one area that wouldn't stop oozing) Patient tolerated procedure: Patient tolerated procedure well Post-Debridement Measurements and Additional Note: Post-Debridement Measurements/Treatment - Nurse 1 - General Ulcer Assessment Start: 05/16/23 10:37 Freq: Status: Active Protocol: NELL Activity Type Activity Date Activity User E-sign Co-sign Detail Recorded Client Recorded Date Recorded By Document 05/16/23 10:38 JF Laptop 05/16/23 10:39 JF Document 05/23/23 10:46 DL Desktop 05/23/23 10:51 DL Document 05/30/23 10:29 DL Desktop 05/30/23 10:37 DL 05/16/23 05/23/23 05/30/23 10:38 10:46 10:29 - Today's Visit Information Type of service Follow-up Visit Follow-up Visit Follow-up Visit (Physician/R[employer]ER [employer]ARD (Physician/RACKER OCTAVE BOARD (Physician/RACKER OCTAVE [employer]ARD ) ) ) Arrival Mode Ambulatory, Ambulatory Ambulatory, Walker Walker Transfer Assistance None None Patient Identification Verified (Name & Yes Yes Yes ) Patient Requires Transmission-Based No No No Precautions Finger Stick Blood Sugar(mg/dl) (if 180 indicated): Blood Sugar Stated by Patient Height and Weight Body Mass Index (BMI) 46.5 46.5 46.5 BMI Classification Obese Obese Obese Vital Signs Temperature (97.8 F-99.1 F) 98.7 F 97.4 F L 97.5 F L Temperature Source Temporal Temporal Temporal Pulse Rate (60-100) 86 111 H 92 Pulse Location Monitor Monitor Monitor Respiratory Rate (12-18) 16 18 22 H Respiratory rate source Observation Observation Observation Blood Pressure (90/60-120/80) 160/94 H 159/84 H 165/69 H Blood Pressure Mean (mm Hg) 116 109 101 Source Monitor Monitor Monitor Position Sitting Blood Pressure Location Right Forearm History Since Last Visit- (Skip if this is Patient's initial visit) Have you changed medications since your No No No last visit? Any new allergies or adverse reactions No No No Had a fall/change in ADL's that may No No No increase risk of falls Signs or symptoms of abuse and/or No No No neglect since last visit Have you been in the hospital since your No No No last visit? Has dressing in place as prescribed Yes Yes Yes Has compression in place as prescribed Yes N/A Yes Has offloadiing in place as prescribed Yes Yes Yes Experienced any changes in pain level or No No No management Left Footwear Regular Shoe Right Footwear Regular Shoe Pain Scale: 0-10 Numeric Is Patient Pain Free? Yes Yes Yes - Nurse 1 - General Ulcer Measurement Start: 05/16/23 10:37 Freq: Status: Active Protocol: Activity Type Activity Date Activity User E-sign Co-sign Detail Recorded Client Recorded Date Recorded By Document 05/16/23 10:38 JF Laptop 05/16/23 10:39 JF Document 05/23/23 10:46 DL Desktop 05/23/23 10:51 DL Document 05/30/23 10:29 DL Desktop 05/30/23 10:37 DL 05/16/23 05/23/23 05/30/23 10:38 10:46 10:29 Wound Center Nurse 1 #2- R HEEL -Combined with other wound No -Current Size (cm) - Length 0.1 1 2 -Current Size (cm) - Width 0.1 1 0.2 -Current Size (cm) - Depth 0.1 0.2 0.1 -Total Square Cm 0.01 1 0.4 -Photo Taken No -Epithelialization Large 67-100% -Tunneling No -Undermining/Tunneling No -Circular Undermining No -Exudate Amt None Present Small Small -Exudate Type Serosanguineous Serosanguineous -Wound Margin Flat & Intact Distinct, Indistinct, Non Outline -Visible Attached -Granulation Amt Large (67-100%) Small (1-33%) Small (1-33%) -Granulation Quality Red [place] Red -Slough/Fibrin No -Necrosis Amt Large (67-100%) Small (1-33%) -Necrotic Tissue Type Adherent Slough Adherent Slough -Structure Exposed N/A N/A N/A -Texture (Lianna-wound Skin Appearance) Assessed, Scarring Scarring Scarring -Moisture (Lianna-wound Skin Appearance) Assessed,Dry/ No Abnormality Maceration Scaly -Color (Lianna-wound Skin Appearance) Assessed No Abnormality No Abnormality -Temperature (Lianna-wound Skin No Abnormality No Abnormality No Abnormality Appearance) (Pt Warm) (Pt Warm) (Pt Warm) -Tenderness on Palpation (Lianna-wound No No No Skin Appearance) -Ulcer Cleansing Rinsed/ Soap and Water Soap and Water Irrigated with Saline -Foul Odor after Cleansing No No No -Anesthetic Used 5% Lidocaine 5% Lidocaine Gel Gel Lower Limb Edema Present NA Right Calf (cm) 47 46 Right Ankle (cm) 27 27.5 WC - Nurse 2 - General Ulcer CM Notes Start: 05/16/23 10:37 Freq: Status: Active Protocol: Activity Type Activity Date Activity User E-sign Co-sign Detail Recorded Client Recorded Date Recorded By Document 05/16/23 10:51 Laptop 05/16/23 10:57 Document 05/23/23 10:59 Laptop 05/23/23 11:08 Document 05/30/23 10:50 Laptop 05/30/23 10:51 05/16/23 05/23/23 05/30/23 10:51 10:59 10:50 Wound Center Nurse 2 #2- R HEEL -Time 10:54 11:00 10:50 -Correct Patient Yes Yes Yes -Correct Side, Site, Position Yes Yes Yes -Correct Procedure Yes Yes Yes -Procedure Performed Yes Yes Yes -Type of Procedure Debridement Debridement Debridement -Clinical Debridement Subcutaneous Subcutaneous Subcutaneous -Tissue Removed Subcutaneous Subcutaneous Subcutaneous -Post Debridement (cm) - Length 1.3 1.9 2.2 -Post Debridement (cm) - Width 1.1 2.0 1.0 -Post Debridement (cm) - Depth 0.1 0.1 0.2 -Total Square (Post) (cm) 1.43 3.80 2.20 -Area of Debridement (cm) - Length 1.3 1.9 2.2 -Area of Debridement (cm) - Width 1.1 2.0 1.0 -Total Square (Area) (cm) 1.43 3.80 2.20 -Tunneling No No No -Undermining/Tunneling No No No -Circular Undermining No No No -Wound/Ulcer Outcome Healed- Not Healed Not Healed Epithelialized -Ulcer Cleansing Rinsed/ Rinsed/ Rinsed/ Irrigated with Irrigated with Irrigated with Saline Saline Saline -Foul Odor after Cleansing No No No -Bioengineered Tissue No No No -Bleeding Controlled with Pressure,Silver Pressure Pressure Nitrate -Treatment Response Procedure Procedure Procedure Tolerated Well Tolerated Well Tolerated Well -Offloading No No No -Other Type of Offloading diabetic shoes -Assistive Device(s) Cane -Debridement - Subq, 1st 20sq cm Yes Yes Yes Pain Scale: 0-10 Numeric Is Patient Pain Free? Yes Yes Yes - Nurse 3 - General Ulcer D/C NN Start: 05/16/23 10:37 Freq: Status: Active Protocol: Activity Type Activity Date Activity User E-sign Co-sign Detail Recorded Client Recorded Date Recorded By Document 05/16/23 11:02 DL Desktop 05/16/23 11:05 DL Document 05/23/23 11:11 JF Laptop 05/23/23 11:14 JF Document 05/30/23 11:03 KW Desktop 05/30/23 11:06 KW 05/16/23 05/23/23 05/30/23 11:02 11:11 11:03 Wound Care Center Nurse 3 #2- R HEEL -Ulcer Cleansing Rinsed/ Rinsed/ Rinsed/ Irrigated with Irrigated with Irrigated with Saline Saline Saline -Foul Odor after Cleansing No No -Primary Dressing Applied Promogran NonAdherent Joelle Matter Contact Layer, Promogran Joelle Matter -Primary Dressing Covered/Secured with Dry Gauze & Roll Gauze, Secured with Tape -Promogran Joelle Matter 1 0 Left -Compression Wrap Miguelangel Wrap -Tubular Bandage Double Layer -Size of Tubigrip Used Size F -Size F ($) 2 Right -Tubular Bandage Single Layer Single Layer -Size of Tubigrip Used Size E Size E -Size E ($) 1 1 Treatment Response Procedure Tolerated Well Pain Scale: 0-10 Numeric Is Patient Pain Free? Yes Yes Yes WC - Visit Discharge Discharge Condition Stable Stable Stable Ambulatory Status Ambulatory Ambulatory, Ambulatory, Walker Walker Transportation Private Auto Private Auto Private Auto Accompanied by Medication Reconcilliation completed & Yes No provided to patient/care provider Clinical Summary of Care Provided Yes Yes Notes: dressing applied per Cathi lau . 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 He was approved for Epicord/Epifix to this ulcer. He has received 10 application total (Epicord 7 applications, Epifix #3) with improvement in his ulcer. Wound care - Moistened Joelle covered by adaptic and topped with gauze or mepilex dressing daily. Tape securely so it does not slip. Compression Double tubigrip bilateral. Encouraged to use lymphedema compression pumps to help with his swelling. Start with one hour daily, may work up to 2-3 times per day. Offloading: Wear diabetic shoes. Wear heel cover/protector while in bed ( states he has restless leg syndrome and rubs his feet against the bed when he sleeps). Be careful with activities that cause pressure or rubbing on the healed ulcer. A wound culture was obtained 08/30/22 which was positive for VRE, Kocuria kristinae, and Corynebacterium striatum completed Linezolid. Encouraged increase protein intake with low carbs to help with blood sugars and wound healing. He is on Doxycycline as suppressive treatment since he had his left knee replaced, this is prescribed by Orthopaedics. Follow up one week. Call or come in sooner if develop any concerns.
[2023-06-06 10:35] VITALS: BP 198/97; PULSE 91; RESP 18; TEMP 36.5; BMI 46.5
--- NOTE | 2023-06-06 13:05 | PN.PCM_ITS ---
History of Present Illness Date of Service: 06/06/23 Chief Complaint: Right heel ulcer History of Wound: 67 year old male presents to the wound center for evaluation of his right heal ulcer. It started as a a pressure ulcer in February when he he was in TCU and it healed. It then became a blister right before his Left TKR surgery. He had his left knee replaced 07/14/22 at [facility]. 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 He also has a history of diabetes, HTN, lymphedema, hypercholesterolemia and PE that he is on Xerelto. He currently has home health. Wound culture obtained on 08/30/22 which are positive for VRE, Kocuria kristinae and Corynebacterium striatum. He will completed the Linezolid. Foot xray 09/27/22 - Osteopenia with diffuse osteoarthritic changes. Diffuse soft tissue swelling with ossification of the distal Achilles tendon. No acute abnormality or evidence of erosive changes. Wound care - He has been approved for Epicord and Epifix and has received 10 applications total. Joelle covered by gauze. He denies any fever, chills, nausea and vomiting. Progress of Wound: His right lateral heel ulcer is smaller this week. He has been wearing his new diabetic shoes with no issues. He still has bruising around his left ankle, which is lessening. He has been wearing tubigrips bilaterally and started to use his compression pumps twice a day and there is a decrease in his edema/lymphedema. He states he has to void more frequently since starting the pumps. Objective Data Objective Data Vital Signs: Vital Signs Temp Pulse Resp BP O2 Del Method 97.7 F L 91 18 198/97 H Room Air 06/06/23 10:35 06/06/23 10:35 06/06/23 10:35 06/06/23 10:35 06/06/23 10:35 Oxygen Delivery Method Room Air Weight: 343 lb Body Mass Index (BMI) 46.5 Charges/Coding Procedures Integumentary 111xxx-113xx: 14112 [place] subq tissue 20 sq cm/< Debridement Note Debridement Note Wound debrided: Right posterior lateral heel Laterality: Right Wound Grade/Stage: Gomez stage II Type of Debridement: Excisional debridement Anesthesia Used: 5% Lidocaine Gel Depth: Down to and including healthy tissue and in the subcutaneous layer Percentage of wound debrided: 100 Instrument Used: 3mm curette and #15 blade Tissue Removed: Removed non viable tissue and slough Severity: Fat Layer Exposed Amount of bleeding with debridement: Mild Bleeding Controlled with: Pressure, Compression and gauze and Silver Nitrate (to one area that wouldn't stop oozing) Patient tolerated procedure: Patient tolerated procedure well Post-Debridement Measurements and Additional Note: Post-Debridement Measurements/Treatment - Nurse 1 - General Ulcer Assessment Start: 05/16/23 10:37 Freq: Status: Active Protocol: LAMNorseLaura Activity Type Activity Date Activity User E-sign Co-sign Detail Recorded Client Recorded Date Recorded By Document 05/16/23 10:38 JF Laptop 05/16/23 10:39 JF Document 05/23/23 10:46 DL Desktop 05/23/23 10:51 DL Document 05/30/23 10:29 DL Desktop 05/30/23 10:37 DL Document 06/06/23 10:35 KW Desktop 06/06/23 10:47 KW 05/16/23 05/23/23 05/30/23 10:38 10:46 10:29 - Today's Visit Information Type of service Follow-up Visit Follow-up Visit Follow-up Visit (Physician/RN CARE MANAGER (Physician/RN CARE MANAGER (Physician/RN CARE MANAGER ) ) ) Arrival Mode Ambulatory, Ambulatory Ambulatory, Walker Walker Transfer Assistance None None Accompanied by Patient Identification Verified (Name & Yes Yes Yes ) Patient Requires Transmission-Based No No No Precautions Finger Stick Blood Sugar(mg/dl) (if 180 indicated): Blood Sugar Stated by Patient Height and Weight Body Mass Index (BMI) 46.5 46.5 46.5 BMI Classification Obese Obese Obese Vital Signs Temperature (97.8 F-99.1 F) 98.7 F 97.4 F L 97.5 F L Temperature Source Temporal Temporal Temporal Pulse Rate (60-100) 86 111 H 92 Pulse Location Monitor Monitor Monitor Respiratory Rate (12-18) 16 18 22 H Respiratory rate source Observation Observation Observation Oxygen Delivery Method Blood Pressure (90/60-120/80) 160/94 H 159/84 H 165/69 H Blood Pressure Mean (mm Hg) 116 109 101 Source Monitor Monitor Monitor Position Sitting Blood Pressure Location Right Forearm History Since Last Visit- (Skip if this is Patient's initial visit) Have you changed medications since your No No No last visit? Any new allergies or adverse reactions No No No Had a fall/change in ADL's that may No No No increase risk of falls Signs or symptoms of abuse and/or No No No neglect since last visit Have you been in the hospital since your No No No last visit? Has dressing in place as prescribed Yes Yes Yes Has compression in place as prescribed Yes N/A Yes Has offloadiing in place as prescribed Yes Yes Yes Experienced any changes in pain level or No No No management Left Footwear Regular Shoe Right Footwear Regular Shoe Pain Scale: 0-10 Numeric Is Patient Pain Free? Yes Yes Yes 06/06/23 10:35 WC - Today's Visit Information Type of service Follow-up Visit (Physician/RN CARE MANAGER ) Arrival Mode Ambulatory, Walker Transfer Assistance Accompanied by Patient Identification Verified (Name & Yes ) Patient Requires Transmission-Based Precautions Finger Stick Blood Sugar(mg/dl) (if indicated): Blood Sugar Height and Weight Body Mass Index (BMI) 46.5 BMI Classification Obese Vital Signs Temperature (97.8 F-99.1 F) 97.7 F L Temperature Source Temporal Pulse Rate (60-100) 91 Pulse Location Monitor Respiratory Rate (12-18) 18 Respiratory rate source Observation Oxygen Delivery Method Room Air Blood Pressure (90/60-120/80) 198/97 H Blood Pressure Mean (mm Hg) 130 Source Monitor Position Semi-Fowlers Blood Pressure Location Left Forearm History Since Last Visit- (Skip if this is Patient's initial visit) Have you changed medications since your No last visit? Any new allergies or adverse reactions No Had a fall/change in ADL's that may No increase risk of falls Signs or symptoms of abuse and/or No neglect since last visit Have you been in the hospital since your No last visit? Has dressing in place as prescribed Yes Has compression in place as prescribed Yes Has offloadiing in place as prescribed No Experienced any changes in pain level or No management Left Footwear Diabetic Shoe Right Footwear Diabetic Shoe Pain Scale: 0-10 Numeric Is Patient Pain Free? Yes - Nurse 1 - General Ulcer Measurement Start: 05/16/23 10:37 Freq: Status: Active Protocol: Activity Type Activity Date Activity User E-sign Co-sign Detail Recorded Client Recorded Date Recorded By Document 05/16/23 10:38 JF Laptop 05/16/23 10:39 JF Document 05/23/23 10:46 DL Desktop 05/23/23 10:51 DL Document 05/30/23 10:29 DL Desktop 05/30/23 10:37 DL Document 06/06/23 10:35 KW Desktop 06/06/23 10:47 KW 05/16/23 05/23/23 05/30/23 10:38 10:46 10:29 Wound Center Nurse 1 #2- R HEEL -Combined with other wound No -Current Size (cm) - Length 0.1 1 2 -Current Size (cm) - Width 0.1 1 0.2 -Current Size (cm) - Depth 0.1 0.2 0.1 -Total Square Cm 0.01 1 0.4 -Photo Taken No -Epithelialization Large 67-100% -Tunneling No -Undermining/Tunneling No -Circular Undermining No -Exudate Amt None Present Small Small -Exudate Type Serosanguineous Serosanguineous -Wound Margin Flat & Intact Distinct, Indistinct, Non Outline -Visible Attached -Granulation Amt Large (67-100%) Small (1-33%) Small (1-33%) -Granulation Quality Red [place] Red -Slough/Fibrin No -Necrosis Amt Large (67-100%) Small (1-33%) -Necrotic Tissue Type Adherent Slough Adherent Slough -Structure Exposed N/A N/A N/A -Texture (Lianna-wound Skin Appearance) Assessed, Scarring Scarring Scarring -Moisture (Lianna-wound Skin Appearance) Assessed,Dry/ No Abnormality Maceration Scaly -Color (Lianna-wound Skin Appearance) Assessed No Abnormality No Abnormality -Temperature (Lianna-wound Skin No Abnormality No Abnormality No Abnormality Appearance) (Pt Warm) (Pt Warm) (Pt Warm) -Tenderness on Palpation (Lianna-wound No No No Skin Appearance) -Ulcer Cleansing Rinsed/ Soap and Water Soap and Water Irrigated with Saline -Foul Odor after Cleansing No No No -Anesthetic Used 5% Lidocaine 5% Lidocaine Gel Gel Lower Limb Edema Present NA Right Calf (cm) 47 46 Right Ankle (cm) 27 27.5 Left Calf (cm) Left Ankle (cm) 06/06/23 10:35 Wound Center Nurse 1 #2- R HEEL -Combined with other wound -Current Size (cm) - Length 2.0 -Current Size (cm) - Width 1.6 -Current Size (cm) - Depth 0.1 -Total Square Cm 3.20 -Photo Taken -Epithelialization -Tunneling -Undermining/Tunneling -Circular Undermining -Exudate Amt Small -Exudate Type Serosanguineous -Wound Margin Distinct, Outline Attached -Granulation Amt Medium (34-66%) -Granulation Quality [place] -Slough/Fibrin -Necrosis Amt Small (1-33%) -Necrotic Tissue Type Adherent Slough -Structure Exposed -Texture (Lianna-wound Skin Appearance) Assessed -Moisture (Lianna-wound Skin Appearance) Assessed, Maceration -Color (Lianna-wound Skin Appearance) Assessed -Temperature (Lianna-wound Skin No Abnormality Appearance) (Pt Warm) -Tenderness on Palpation (Lianna-wound Skin Appearance) -Ulcer Cleansing Rinsed/ Irrigated with Saline -Foul Odor after Cleansing No -Anesthetic Used 5% Lidocaine Gel Lower Limb Edema Present Right Calf (cm) 46.2 Right Ankle (cm) 28 Left Calf (cm) 48 Left Ankle (cm) 38 - Nurse 2 - General Ulcer CM Notes Start: 05/16/23 10:37 Freq: Status: Active Protocol: Activity Type Activity Date Activity User E-sign Co-sign Detail Recorded Client Recorded Date Recorded By Document 05/16/23 10:51 [employer] 05/16/23 10:57 Document 05/23/23 10:59 [employer] 05/23/23 11:08 Document 05/30/23 10:50 Laptop 05/30/23 10:51 Document 06/06/23 11:24 Laptop 06/06/23 11:27 05/16/23 05/23/23 05/30/23 10:51 10:59 10:50 Wound Center Nurse 2 #2- R HEEL -Time 10:54 11:00 10:50 -Correct Patient Yes Yes Yes -Correct Side, Site, Position Yes Yes Yes -Correct Procedure Yes Yes Yes -Procedure Performed Yes Yes Yes -Type of Procedure Debridement Debridement Debridement -Clinical Debridement Subcutaneous Subcutaneous Subcutaneous -Tissue Removed Subcutaneous Subcutaneous Subcutaneous -Post Debridement (cm) - Length 1.3 1.9 2.2 -Post Debridement (cm) - Width 1.1 2.0 1.0 -Post Debridement (cm) - Depth 0.1 0.1 0.2 -Total Square (Post) (cm) 1.43 3.80 2.20 -Area of Debridement (cm) - Length 1.3 1.9 2.2 -Area of Debridement (cm) - Width 1.1 2.0 1.0 -Total Square (Area) (cm) 1.43 3.80 2.20 -Tunneling No No No -Undermining/Tunneling No No No -Circular Undermining No No No -Wound/Ulcer Outcome Healed- Not Healed Not Healed Epithelialized -Ulcer Cleansing Rinsed/ Rinsed/ Rinsed/ Irrigated with Irrigated with Irrigated with Saline Saline Saline -Foul Odor after Cleansing No No No -Bioengineered Tissue No No No -Bleeding Controlled with Pressure,Silver Pressure Pressure Nitrate -Treatment Response Procedure Procedure Procedure Tolerated Well Tolerated Well Tolerated Well -Offloading No No No -Other Type of Offloading diabetic shoes -Assistive Device(s) Cane -Debridement - Subq, 1st 20sq cm Yes Yes Yes Pain Scale: 0-10 Numeric Is Patient Pain Free? Yes Yes Yes 06/06/23 11:24 Wound Center Nurse 2 #2- R HEEL -Time 11:25 -Correct Patient Yes -Correct Side, Site, Position Yes -Correct Procedure Yes -Procedure Performed Yes -Type of Procedure Debridement -Clinical Debridement Subcutaneous -Tissue Removed Subcutaneous -Post Debridement (cm) - Length 0.7 -Post Debridement (cm) - Width 0.2 -Post Debridement (cm) - Depth 0.1 -Total Square (Post) (cm) 0.14 -Area of Debridement (cm) - Length 0.7 -Area of Debridement (cm) - Width 0.2 -Total Square (Area) (cm) 0.14 -Tunneling No -Undermining/Tunneling No -Circular Undermining No -Wound/Ulcer Outcome Not Healed -Ulcer Cleansing Rinsed/ Irrigated with Saline -Foul Odor after Cleansing No -Bioengineered Tissue No -Bleeding Controlled with Pressure -Treatment Response Procedure Tolerated Well -Offloading No -Other Type of Offloading -Assistive Device(s) -Debridement - Subq, 1st 20sq cm Yes Pain Scale: 0-10 Numeric Is Patient Pain Free? Yes - Nurse 3 - General Ulcer D/C NN Start: 05/16/23 10:37 Freq: Status: Active Protocol: Activity Type Activity Date Activity User E-sign Co-sign Detail Recorded Client Recorded Date Recorded By Document 05/16/23 11:02 DL Desktop 05/16/23 11:05 DL Document 05/23/23 11:11 JF Laptop 05/23/23 11:14 JF Document 05/30/23 11:03 KW Desktop 05/30/23 11:06 KW Document 06/06/23 11:30 BMF Desktop 06/06/23 11:33 BMF 05/16/23 05/23/23 05/30/23 11:02 11:11 11:03 Wound Care Center Nurse 3 #2- R HEEL -Ulcer Cleansing Rinsed/ Rinsed/ Rinsed/ Irrigated with Irrigated with Irrigated with Saline Saline Saline -Foul Odor after Cleansing No No -Primary Dressing Applied Promogran NonAdherent Joelle Matter Contact Layer, Promogran Joelle Matter -Other Dressing -Primary Dressing Covered/Secured with Dry Gauze & Roll Gauze, Secured with Tape -Mepilex Border -Promogran Joelle Matter 1 0 Left -Compression Wrap Miguelangel Wrap -Tubular Bandage Double Layer -Size of Tubigrip Used Size F -Size F ($) 2 Right -Tubular Bandage Single Layer Single Layer -Size of Tubigrip Used Size E Size E -Size E ($) 1 1 Treatment Response Procedure Tolerated Well Pain Scale: 0-10 Numeric Is Patient Pain Free? Yes Yes Yes WC - Visit Discharge Discharge Condition Stable Stable Stable Ambulatory Status Ambulatory Ambulatory, Ambulatory, Walker Walker Transportation Private Auto Private Auto Private Auto Accompanied by Medication Reconcilliation completed & Yes No provided to patient/care provider Clinical Summary of Care Provided Yes Yes Notes: dressing applied per Cathi lau . 06/06/23 11:30 Wound Care Center Nurse 3 #2- R HEEL -Ulcer Cleansing Rinsed/ Irrigated with Saline -Foul Odor after Cleansing No -Primary Dressing Applied Mepilex Border, NonAdherent Contact Layer, Promogran Joelle Matter -Other Dressing per gm rn -Primary Dressing Covered/Secured with -Mepilex Border 1 -Promogran Joelle Matter 1 Left -Compression Wrap -Tubular Bandage Single Layer -Size of Tubigrip Used Size F -Size F ($) 1 Right -Tubular Bandage Single Layer -Size of Tubigrip Used Size E -Size E ($) 1 Treatment Response Procedure Tolerated Well Pain Scale: 0-10 Numeric Is Patient Pain Free? Yes WC - Visit Discharge Discharge Condition Stable Ambulatory Status Ambulatory, Walker Transportation Private Auto Accompanied by Medication Reconcilliation completed & provided to patient/care provider Clinical Summary of Care Provided Notes: Assessment/Plan Assessment/Plan (1) Pressure ulcer of right heel, stage 3: CODE(S): L89.613 - Pressure ulcer of right heel, stage 3 (2) 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 He was approved for Epicord/Epifix to this ulcer. He has received 10 application total (Epicord 7 applications, Epifix #3) with improvement in his ulcer. Wound care - Moistened Joelle covered by adaptic and topped with gauze or mepilex dressing daily. Tape securely so it does not slip. Compression - Single tubigrip topped with MIGUELANGEL wrap bilaterally. Encouraged to use lymphedema compression pumps to help with his swelling. Start with one hour daily, may work up to 2-3 times per day. Offloading: Wear diabetic shoes. Wear heel cover/protector while in bed ( states he has restless leg syndrome and rubs his feet against the bed when he sleeps). Be careful with activities that cause pressure or rubbing on the healed ulcer. A wound culture was obtained 08/30/22 which was positive for VRE, Kocuria kristinae, and Corynebacterium striatum completed Linezolid. Encouraged increase protein intake with low carbs to help with blood sugars and wound healing. He is on Doxycycline as suppressive treatment since he had his left knee replaced, this is prescribed by Orthopaedics. Follow up one week. Call or come in sooner if develop any concerns.
== END 2023-06-12 23:59 | disposition home or self-care (01) ==
LOC: WC 10:45
PROVIDERS: PCP Internal Medicine; Referring Provider Internal Medicine; Visit Provider Nurse Practitioner Family
DX: L89.613 Pressure ulcer of right heel, stage 3 (principal); E11.42 Type 2 diabetes mellitus with diabetic polyneuropathy; Z79.4 Long term (current) use of insulin; S90.02XA Contusion of left ankle, initial encounter; X58.XXXA Exposure to other specified factors, initial encounter; I10 Essential (primary) hypertension; E78.00 Pure hypercholesterolemia, unspecified; I89.0 Lymphedema, not elsewhere classified; R60.0 Localized edema; Z96.652 Presence of left artificial knee joint; Z79.01 Long term (current) use of anticoagulants; Z79.82 Long term (current) use of aspirin; Z79.899 Other long term (current) drug therapy
CPT/HCPCS: 11042

== ENCOUNTER 2023-07-09 15:00 | Outpatient (RCR) | payer MEDICARE, BC, SELFPAY ==
[2023-06-13 00:47] VITALS: BP 198/97; PULSE 91; RESP 18; TEMP 36.5; BMI 46.5
--- NOTE | 2023-06-14 10:54 | WC ---
Patient called concerned his ulcer is getting worse since he was seen her last. States it has been draining more and has to change it QD and or QOD rather than every 3 days. He states there is white around his ulcer. Advised him to stop the Adaptic and to continue cleaning it with soap and water and just dress it with magalis and foam border dressing. Also continue with offloading and utilizing his compression stocking. Patient said he has only been in his DM shoe twice since seen here last. Patient is scheduled to come back here on 06/20 to see Carolin. Patient verbalized understanding and who does the dressings also was included in the conversation and her questions were answered.
[2023-06-20 10:43] VITALS: BP 160/81; PULSE 67; TEMP 36.6; BMI 46.5
--- NOTE | 2023-06-20 16:20 | PCM.WC.PN ---
History of Present Illness Date of Service: 06/20/23 Chief Complaint: Right heel ulcer History of Wound: 67 year old male presents to the wound center for evaluation of his right heal ulcer. It started as a a pressure ulcer in February when he he was in TCU and it healed. It then became a blister right before his Left TKR surgery. He had his left knee replaced 07/14/22 at [facility]. 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 He also has a history of diabetes, HTN, lymphedema, hypercholesterolemia and PE that he is on Xerelto. He currently has home health. Wound culture obtained on 08/30/22 which are positive for VRE, Kocuria kristinae and Corynebacterium striatum. He will completed the Linezolid. Foot xray 09/27/22 - Osteopenia with diffuse osteoarthritic changes. Diffuse soft tissue swelling with ossification of the distal Achilles tendon. No acute abnormality or evidence of erosive changes. Wound care - He has been approved for Epicord and Epifix and has received 10 applications total. Joelle covered by gauze. He denies any fever, chills, nausea and vomiting. Progress of Wound: His right lateral heel ulcer is larger with with added blister. He has been wearing his new diabetic shoes. He has started to drive this week and has been mowing his yard with a tractor. He has been wearing tubigrips bilaterally and started to use his compression pumps twice a day and there is a decrease in his edema/lymphedema. Objective Data Objective Data Vital Signs: Vital Signs Temp Pulse Resp BP O2 Del Method 97.9 F 67 18 160/81 H Room Air 06/20/23 10:43 06/20/23 10:43 06/13/23 00:47 06/20/23 10:43 06/20/23 10:43 Oxygen Delivery Method Room Air Weight: 343 lb Body Mass Index (BMI) 46.5 Charges/Coding Procedures Integumentary 111xxx-113xx: 73371 [place] subq tissue 20 sq cm/< Procedures Musculoskeletal 20xxx-29xxx: 32283 APPLY RIGID LEG CAST (total contact cast) Debridement Note Debridement Note Wound debrided: Right posterior lateral heel Laterality: Right Wound Grade/Stage: Gomez stage II Type of Debridement: Excisional debridement Anesthesia Used: 5% Lidocaine Gel Depth: Down to and including healthy tissue and in the subcutaneous layer Percentage of wound debrided: 100 Instrument Used: 3mm curette and - (sharp scissors and pick ups) Tissue Removed: Removed non viable tissue and slough Severity: Fat Layer Exposed Amount of bleeding with debridement: Mild Bleeding Controlled with: Pressure, Compression and gauze and Silver Nitrate (to one area that wouldn't stop oozing) Patient tolerated procedure: Patient tolerated procedure well Debridement Free Text: unroofed blister and obtained a cultured due to odor. Post-Debridement Measurements and Additional Note: Post-Debridement Measurements/Treatment - Nurse 1 - General Ulcer Assessment Start: 06/20/23 10:42 Freq: Status: Active Protocol: NELL Activity Type Activity Date Activity User E-sign Co-sign Detail Recorded Client Recorded Date Recorded By Document 06/20/23 10:43 Desktop 06/20/23 10:51 06/20/23 10:43 - Today's Visit Information Type of service Follow-up Visit (Physician/CHART PICKER ) Arrival Mode Ambulatory, Walker Transfer Assistance None Accompanied by spouss Patient Identification Verified (Name & Yes ) Patient Requires Transmission-Based No Precautions Safety Precautions Fall Prevention Height and Weight Body Mass Index (BMI) 46.5 BMI Classification Obese Vital Signs Temperature (97.8 F-99.1 F) 97.9 F Temperature Source Temporal Pulse Rate (60-100) 67 Pulse Location Monitor Oxygen Delivery Method Room Air Blood Pressure (90/60-120/80) 160/81 H Blood Pressure Mean (mm Hg) 107 Source Monitor Position Sitting Blood Pressure Location Left Arm History Since Last Visit- (Skip if this is Patient's initial visit) Have you changed medications since your No last visit? Any new allergies or adverse reactions No Had a fall/change in ADL's that may No increase risk of falls Signs or symptoms of abuse and/or No neglect since last visit Have you been in the hospital since your No last visit? Has dressing in place as prescribed Yes Has compression in place as prescribed N/A Has offloadiing in place as prescribed N/A Experienced any changes in pain level or No management Pain Scale: 0-10 Numeric Is Patient Pain Free? Yes - Nurse 1 - General Ulcer Measurement Start: 11/08/23 10:42 Freq: Status: Active Protocol: Activity Type Activity Date Activity User E-sign Co-sign Detail Recorded Client Recorded Date Recorded By Document 06/20/23 10:43 Desktop 06/20/23 10:51 06/20/23 10:43 Wound Center Nurse 1 #2- R HEEL -Photo Taken No -Exudate Amt Large -Exudate Type Yellow/Green -Wound Margin Distinct, Outline Attached -Granulation Amt Medium (34-66%) -Granulation Quality Red -Necrosis Amt Large (67-100%) -Necrotic Tissue Type Eschar -Structure Exposed N/A -Texture (Lianna-wound Skin Appearance) Assessed -Moisture (Lianna-wound Skin Appearance) Assessed -Color (Lianna-wound Skin Appearance) Assessed -Temperature (Lianna-wound Skin No Abnormality Appearance) (Pt Warm) -Tenderness on Palpation (Lianna-wound No Skin Appearance) -Ulcer Cleansing Soap and Water -Foul Odor after Cleansing No -Anesthetic Used 5% Lidocaine Gel Right Calf (cm) 47.2 Right Ankle (cm) 28.7 - Nurse 2 - General Ulcer CM Notes Start: 06/20/23 10:42 Freq: Status: Active Protocol: Activity Type Activity Date Activity User E-sign Co-sign Detail Recorded Client Recorded Date Recorded By Document 06/20/23 11:22 Laptop 06/20/23 11:31 06/20/23 11:22 Wound Center Nurse 2 #2- R HEEL -Time 11:23 -Correct Patient Yes -Correct Side, Site, Position Yes -Correct Procedure Yes -Procedure Performed Yes -Type of Procedure Debridement -Clinical Debridement Subcutaneous -Tissue Removed Subcutaneous -Post Debridement (cm) - Length 3.7 -Post Debridement (cm) - Width 4 -Post Debridement (cm) - Depth 0.2 -Total Square (Post) (cm) 14.8 -Area of Debridement (cm) - Length 3.7 -Area of Debridement (cm) - Width 4 -Total Square (Area) (cm) 14.8 -Tunneling No -Undermining/Tunneling No -Circular Undermining No -Wound/Ulcer Outcome Not Healed -Ulcer Cleansing Rinsed/ Irrigated with Saline -Foul Odor after Cleansing No -Bioengineered Tissue No -Bleeding Controlled with Pressure -Treatment Response Procedure Tolerated Well -Offloading Yes -Type of Offloading Total Contact Cast (TCC) - Right ($) -Debridement - Subq, 1st 20sq cm Yes Pain Scale: 0-10 Numeric Is Patient Pain Free? Yes WC - Nurse 3 - General Ulcer D/C NN Start: 06/20/23 10:42 Freq: Status: Active Protocol: Activity Type Activity Date Activity User E-sign Co-sign Detail Recorded Client Recorded Date Recorded By Document 06/20/23 12:12 Desktop 06/20/23 12:13 06/20/23 12:12 Wound Care Center Nurse 3 #2- R HEEL -Ulcer Cleansing Not Cleansed -Negative Pressure Wound Therapy N/A Pain Scale: 0-10 Numeric Is Patient Pain Free? 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 He was approved for Epicord/Epifix to this ulcer. He has received 10 application total (Epicord 7 applications, Epifix #3) with improvement in his ulcer. Wound care - Moistened Joelle covered by adaptic and topped with gauze or mepilex dressing daily. Tape securely so it does not slip. Encouraged to continue to use lymphedema compression pump to left leg to help with his swelling. Start with one hour daily, may work up to 2times per day. Compression left leg tubigrip. Offloading: He is amendable to restarting total contact cast applied today and verbal consent was obtained.? This was applied according to standard protocol in a neutral position a well-padded manner.? He tolerated this well.? To keep clean, dry, and intact until follow-up visit. He was encouraged to only walk with a total contact cast while in the cast boot.? He was also instructed to not get the cast wet and to shower using cast bag.? He voices understanding of this. I discussed with him that he will not be able to visualize for signs and symptoms of infection while he is in a total contact cast.? I did discuss the signs and symptoms of infection today.? Informed him if he notices any redness moving up the leg, continued feeling of oozing, increasing odor, increasing pain, or if he experiences any fever greater than 101 degree, nausea, vomiting, or chills that he is to report straight to the ED for removal of the total contact cast for evaluation as these are signs of progressing infection.? He voices understanding of this today. A wound culture was obtained today.? A positive culture will necessitate antibiotic therapy. A wound culture was obtained 08/30/22 which was positive for VRE, Kocuria kristinae, and Corynebacterium striatum completed Linezolid. Encouraged increase protein intake with low carbs to help with blood sugars and wound healing. He is on Doxycycline as suppressive treatment since he had his left knee replaced, this is prescribed by Orthopaedics. Follow up one week. Call or come in sooner if develop any concerns.
[2023-06-25 09:00] VITALS: BP 172/90; PULSE 71; RESP 16; TEMP 36.1; BMI 46.5
--- NOTE | 2023-06-25 09:50 | PCM.WC.PN ---
History of Present Illness Date of Service: 06/25/23 Chief Complaint: Right heel ulcer History of Wound: 67 year old male presents to the wound center for evaluation of his right heal ulcer. It started as a a pressure ulcer in February when he he was in TCU and it healed. It then became a blister right before his Left TKR surgery. He had his left knee replaced 07/14/22 at [facility]. 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 He also has a history of diabetes, HTN, lymphedema, hypercholesterolemia and PE that he is on Xerelto. He currently has home health. Wound culture obtained on 08/30/22 which are positive for VRE, Kocuria kristinae and Corynebacterium striatum. He will completed the Linezolid. Wound culture obtained 06/20/23 which was positive for Staphylococcus pseudintermediu, Pseudomonas aeruginosa, Corynebacterium minutissiumum, and Anaerobic cocci. He was started on Levaquin and Flagyl. Foot xray 09/27/22 - Osteopenia with diffuse osteoarthritic changes. Diffuse soft tissue swelling with ossification of the distal Achilles tendon. No acute abnormality or evidence of erosive changes. Wound care - He has been approved for Epicord and Epifix and has received 10 applications total. Magalis covered by gauze. He denies any fever, chills, nausea and vomiting. Progress of Wound: Right lateral heal ulcer is much smaller this week after off loading with TCC. He is tolerating the TCC well. Will start him on Levaquin and Flagyl for his positive wound cultures. Objective Data Objective Data Vital Signs: Vital Signs Temp Pulse Resp BP O2 Del Method 96.9 F L 71 16 172/90 H Room Air 06/25/23 09:00 06/25/23 09:00 06/25/23 09:00 06/25/23 09:00 06/25/23 09:00 Oxygen Delivery Method Room Air Weight: 343 lb Body Mass Index (BMI) 46.5 Lab / Micro Data Micro: Microbiology 06/20/23 11:27 Wound - Right Foot Gram Stain - Final 06/20/23 11:27 Wound - Right Foot Wound Culture - Final Staphylococcus pseudintermediu Pseudomonas aeruginosa Corynebacterium minutissimum 06/20/23 11:27 Wound - Right Foot Anaerobic Culture - Final Anaerobic cocci Charges/Coding Procedures Integumentary 111xxx-113xx: 16496 [place] subq tissue 20 sq cm/< Procedures Musculoskeletal 20xxx-29xxx: 65936 APPLY RIGID LEG CAST (total contact cast) Debridement Note Debridement Note Wound debrided: Right posterior lateral heel Laterality: Right Wound Grade/Stage: Gomez stage II Type of Debridement: Excisional debridement Anesthesia Used: 5% Lidocaine Gel Depth: Down to and including healthy tissue and in the subcutaneous layer Percentage of wound debrided: 100 Instrument Used: 5mm curette Tissue Removed: Removed non viable tissue and slough Severity: Fat Layer Exposed Amount of bleeding with debridement: Mild Bleeding Controlled with: Pressure and Compression and gauze Patient tolerated procedure: Patient tolerated procedure well Post-Debridement Measurements and Additional Note: Post-Debridement Measurements/Treatment - Nurse 1 - General Ulcer Assessment Start: 06/20/23 10:42 Freq: Status: Active Protocol: NELL Activity Type Activity Date Activity User E-sign Co-sign Detail Recorded Client Recorded Date Recorded By Document 06/20/23 10:43 Desktop 06/20/23 10:51 Document 06/25/23 09:00 [facility] Desktop 06/25/23 09:12 [facility] 06/20/23 06/25/23 10:43 09:00 - Today's Visit Information Type of service Follow-up Visit Follow-up Visit (Physician/VALVE REPAIRER RECLAMATION (Physician/VALVE REPAIRER RECLAMATION ) ) Arrival Mode Ambulatory, Ambulatory, Walker Walker Transfer Assistance None None Accompanied by spouss Patient Identification Verified (Name & Yes Yes ) Patient Requires Transmission-Based No No Precautions Safety Precautions Fall Prevention Height and Weight Body Mass Index (BMI) 46.5 46.5 BMI Classification Obese Obese Vital Signs Temperature (97.8 F-99.1 F) 97.9 F 96.9 F L Temperature Source Temporal Temporal Pulse Rate (60-100) 67 71 Pulse Location Monitor Monitor Respiratory Rate (12-18) 16 Respiratory rate source Observation Oxygen Delivery Method Room Air Room Air Blood Pressure (90/60-120/80) 160/81 H 172/90 H Blood Pressure Mean (mm Hg) 107 117 Source Monitor Monitor Position Sitting Sitting Blood Pressure Location Left Arm Right Arm History Since Last Visit- (Skip if this is Patient's initial visit) Have you changed medications since your No No last visit? Any new allergies or adverse reactions No No Had a fall/change in ADL's that may No No increase risk of falls Signs or symptoms of abuse and/or No No neglect since last visit Have you been in the hospital since your No No last visit? Has dressing in place as prescribed Yes Yes Has compression in place as prescribed N/A N/A Has offloadiing in place as prescribed N/A Yes Experienced any changes in pain level or No No management Left Footwear Diabetic Shoe Right Footwear Total Contact Cast Pain Scale: 0-10 Numeric Is Patient Pain Free? Yes Yes WC - Nurse 1 - General Ulcer Measurement Start: 06/20/23 10:42 Freq: Status: Active Protocol: Activity Type Activity Date Activity User E-sign Co-sign Detail Recorded Client Recorded Date Recorded By Document 06/20/23 10:43 GM Desktop 06/20/23 10:51 GM Document 06/25/23 09:00 [facility] Desktop 06/25/23 09:12 BMF 06/20/23 06/25/23 10:43 09:00 Wound Center Nurse 1 #2- R HEEL -Combined with other wound No -Current Size (cm) - Length 4.2 -Current Size (cm) - Width 2.9 -Current Size (cm) - Depth 0.1 -Total Square Cm 12.18 -Photo Taken No No -Epithelialization Small 1-33% -Tunneling No -Undermining/Tunneling No -Circular Undermining No -Exudate Amt Large Medium -Exudate Type Yellow/Green Serosanguineous -Wound Margin Distinct, Distinct, Outline Outline Attached Attached -Granulation Amt Medium (34-66%) Large (67-100%) -Granulation Quality Red Red -Slough/Fibrin Yes -Necrosis Amt Large (67-100%) Small (1-33%) -Necrotic Tissue Type Eschar Adherent Slough -Structure Exposed N/A -Texture (Lianna-wound Skin Appearance) Assessed Assessed, Scarring -Moisture (Lianna-wound Skin Appearance) Assessed Assessed, Maceration -Color (Lianna-wound Skin Appearance) Assessed Assessed -Temperature (Lianna-wound Skin No Abnormality No Abnormality Appearance) (Pt Warm) (Pt Warm) -Tenderness on Palpation (Lianna-wound No No Skin Appearance) -Ulcer Cleansing Soap and Water Not Cleansed -Foul Odor after Cleansing No No -Anesthetic Used 5% Lidocaine 5% Lidocaine Gel Gel Right Calf (cm) 47.2 Right Ankle (cm) 28.7 LAM - Nurse 2 - General Ulcer CM Notes Start: 06/20/23 10:42 Freq: Status: Active Protocol: Activity Type Activity Date Activity User E-sign Co-sign Detail Recorded Client Recorded Date Recorded By Document 06/20/23 11:22 Laptop 06/20/23 11:31 Document 06/25/23 09:21 Laptop 06/25/23 09:25 06/20/23 06/25/23 11:22 09:21 Wound Center Nurse 2 #2- R HEEL -Time 11: 09:21 -Correct Patient Yes Yes -Correct Side, Site, Position Yes Yes -Correct Procedure Yes Yes -Procedure Performed Yes Yes -Type of Procedure Debridement Debridement -Clinical Debridement Subcutaneous Subcutaneous -Tissue Removed Subcutaneous Subcutaneous -Post Debridement (cm) - Length 3.7 2.0 -Post Debridement (cm) - Width 4 1.0 -Post Debridement (cm) - Depth 0.2 0.2 -Total Square (Post) (cm) 14.8 2.00 -Area of Debridement (cm) - Length 3.7 2.0 -Area of Debridement (cm) - Width 4 1.0 -Total Square (Area) (cm) 14.8 2.00 -Tunneling No No -Undermining/Tunneling No No -Circular Undermining No No -Wound/Ulcer Outcome Not Healed Not Healed -Ulcer Cleansing Rinsed/ Rinsed/ Irrigated with Irrigated with Saline Saline -Foul Odor after Cleansing No No -Bioengineered Tissue No No -Bleeding Controlled with Pressure Pressure -Treatment Response Procedure Procedure Tolerated Well Tolerated Well -Offloading Yes Yes -Type of Offloading Total Contact Total Contact Cast (TCC) - Cast (TCC) - Right ($) Right ($) -Debridement - Subq, 1st 20sq cm Yes Yes Pain Scale: 0-10 Numeric Is Patient Pain Free? Yes Yes LAM - Nurse 3 - General Ulcer D/C NN Start: 06/20/23 10:42 Freq: Status: Active Protocol: Activity Type Activity Date Activity User E-sign Co-sign Detail Recorded Client Recorded Date Recorded By Document 06/20/23 12:12 Desktop 06/20/23 12:13 Document 06/25/23 09:40 Desktop 06/25/23 09:42 06/20/23 06/25/23 12:12 09:40 Wound Care Center Nurse 3 #2- R HEEL -Ulcer Cleansing Not Cleansed Not Cleansed -Foul Odor after Cleansing No -Negative Pressure Wound Therapy N/A N/A -Other Dressing applied magalis patient -Primary Dressing Covered/Secured with Dry Gauze, Secured with Tape Pain Scale: 0-10 Numeric Is Patient Pain Free? Yes Yes Teaching: Wound Center TCC -Person Taught Patient -Teaching Method Discussion -Response to teaching Verbalize understanding Eliminating Foot Pressure -Person Taught Patient Patient,Family -Teaching Method Discussion Discussion -Response to teaching Verbalize Verbalize understanding understanding Offload: Mattress, Cushion, Reposition -Person Taught Patient -Teaching Method Discussion -Response to teaching Verbalize understanding WC - Visit Discharge Discharge Condition Stable Stable Ambulatory Status Ambulatory, Ambulatory Walker Transportation Private Auto Private Auto Medication Reconcilliation completed & Yes Yes provided to patient/care provider Clinical Summary of Care Provided Yes Yes Assessment/Plan Assessment/Plan (1) Pressure ulcer of right heel, stage 3: CODE(S): L89.613 - Pressure ulcer of right heel, stage 3 (2) 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 He was approved for Epicord/Epifix to this ulcer. He has received 10 application total (Epicord 7 applications, Epifix #3) with improvement in his ulcer. Wound care - Moistened Magalis covered by adaptic and topped with gauze or mepilex dressing. Tape securely so it does not slip. Encouraged to continue to use lymphedema compression pump to left leg to help with his swelling. Start with one hour daily, may work up to 2 times per day. Compression left leg tubigrip. Offloading: He is amendable to restarting total contact cast applied today and verbal consent was obtained.? This was applied according to standard protocol in a neutral position a well-padded manner.? He tolerated this well.? To keep clean, dry, and intact until follow-up visit. He was encouraged to only walk with a total contact cast while in the cast boot.? He was also instructed to not get the cast wet and to shower using cast bag.? He voices understanding of this. I discussed with him that he will not be able to visualize for signs and symptoms of infection while he is in a total contact cast.? I did discuss the signs and symptoms of infection today.? Informed him if he notices any redness moving up the leg, continued feeling of oozing, increasing odor, increasing pain, or if he experiences any fever greater than 101 degree, nausea, vomiting, or chills that he is to report straight to the ED for removal of the total contact cast for evaluation as these are signs of progressing infection.? He voices understanding of this today. Wound culture obtained 06/20/23 which was positive for Staphylococcus pseudintermediu, Pseudomonas aeruginosa, Corynebacterium minutissiumum, and Anaerobic cocci. He was started on Levaquin and Flagyl. A wound culture was obtained 08/30/22 which was positive for VRE, Kocuria kristinae, and Corynebacterium striatum completed Linezolid. Encouraged increase protein intake with low carbs to help with blood sugars and wound healing. He is on Doxycycline as suppressive treatment since he had his left knee replaced, this is prescribed by Orthopaedics. Follow up one week. Call or come in sooner if develop any concerns.
[2023-07-02 13:26] VITALS: BP 144/71; PULSE 92; RESP 18; TEMP 36.6; BMI 46.5
--- NOTE | 2023-07-02 16:36 | PCM.WC.PN ---
History of Present Illness Date of Service: 07/02/23 Chief Complaint: Right heel ulcer History of Wound: 67 year old male presents to the wound center for evaluation of his right heal ulcer. It started as a a pressure ulcer in February when he he was in TCU and it healed. It then became a blister right before his Left TKR surgery. He had his left knee replaced 07/14/22 at [facility]. 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 He also has a history of diabetes, HTN, lymphedema, hypercholesterolemia and PE that he is on Xerelto. He currently has home health. Wound culture obtained on 08/30/22 which are positive for VRE, Kocuria kristinae and Corynebacterium striatum. He will completed the Linezolid. Wound culture obtained 06/20/23 which was positive for Staphylococcus pseudintermediu, Pseudomonas aeruginosa, Corynebacterium minutissiumum, and Anaerobic cocci. He was started on Levaquin and Flagyl. Foot xray 09/27/22 - Osteopenia with diffuse osteoarthritic changes. Diffuse soft tissue swelling with ossification of the distal Achilles tendon. No acute abnormality or evidence of erosive changes. Wound care - He has been approved for Epicord and Epifix and has received 10 applications total. Magalis covered by ABD/gauze. He denies any fever, chills, nausea and vomiting. Progress of Wound: Right lateral heal ulcer is smaller this week with the continuation of off loading with TCC. He is tolerating the TCC well. He is on Levaquin and Flagyl for his positive wound cultures. Objective Data Objective Data Vital Signs: Vital Signs Temp Pulse Resp BP O2 Del Method 97.9 F 92 18 144/71 H Room Air 07/02/23 13:26 07/02/23 13:26 07/02/23 13:26 07/02/23 13:26 06/25/23 09:00 Oxygen Delivery Method Room Air Weight: 343 lb Body Mass Index (BMI) 46.5 Lab / Micro Data Micro: Microbiology 06/20/23 11:27 Wound - Right Foot Gram Stain - Final 06/20/23 11:27 Wound - Right Foot Wound Culture - Final Staphylococcus pseudintermediu Pseudomonas aeruginosa Corynebacterium minutissimum 06/20/23 11:27 Wound - Right Foot Anaerobic Culture - Final Anaerobic cocci Charges/Coding Procedures Integumentary 111xxx-113xx: [id number] [place] subq tissue 20 sq cm/< Procedures Musculoskeletal 20xxx-29xxx: [id number] APPLY RIGID LEG CAST (total contact cast) Debridement Note Debridement Note Wound debrided: Right posterior lateral heel Laterality: Right Wound Grade/Stage: Gomez stage II Type of Debridement: Excisional debridement Anesthesia Used: 5% Lidocaine Gel Depth: Down to and including healthy tissue and in the subcutaneous layer Percentage of wound debrided: 100 Instrument Used: 5mm curette Tissue Removed: Removed non viable tissue and slough Severity: Fat Layer Exposed Amount of bleeding with debridement: Mild Bleeding Controlled with: Pressure and Compression and gauze Patient tolerated procedure: Patient tolerated procedure well Post-Debridement Measurements and Additional Note: Post-Debridement Measurements/Treatment - Nurse 1 - General Ulcer Assessment Start: 06/20/23 10:42 Freq: Status: Active Protocol: NELL Activity Type Activity Date Activity User E-sign Co-sign Detail Recorded Client Recorded Date Recorded By Document 06/20/23 10:43 Desktop 06/20/23 10:51 Document 06/25/23 09:00 [facility] Desktop 06/25/23 09:12 [facility] Document 07/02/23 13:26 DL Desktop 07/02/23 13:35 DL 06/20/23 06/25/23 07/02/23 10:43 09:00 13:26 - Today's Visit Information Type of service Follow-up Visit Follow-up Visit Follow-up Visit (Physician/REGIONAL GUIDE (Physician/REGIONAL GUIDE (Physician/REGIONAL GUIDE ) ) ) Arrival Mode Ambulatory, Ambulatory, Ambulatory Walker Walker Transfer Assistance None None None Accompanied by spouss Patient Identification Verified (Name & Yes Yes Yes ) Patient Requires Transmission-Based No No No Precautions Safety Precautions Fall Prevention Height and Weight Body Mass Index (BMI) 46.5 46.5 46.5 BMI Classification Obese Obese Obese Vital Signs Temperature (97.8 F-99.1 F) 97.9 F 96.9 F L 97.9 F Temperature Source Temporal Temporal Temporal Pulse Rate (60-100) 67 71 92 Pulse Location Monitor Monitor Monitor Respiratory Rate (12-18) 16 18 Respiratory rate source Observation Observation Oxygen Delivery Method Room Air Room Air Blood Pressure (90/60-120/80) 160/81 H 172/90 H 144/71 H Blood Pressure Mean (mm Hg) 107 117 95 Source Monitor Monitor Monitor Position Sitting Sitting Blood Pressure Location Left Arm Right Arm History Since Last Visit- (Skip if this is Patient's initial visit) Have you changed medications since your No No No last visit? Any new allergies or adverse reactions No No No Had a fall/change in ADL's that may No No No increase risk of falls Signs or symptoms of abuse and/or No No No neglect since last visit Have you been in the hospital since your No No No last visit? Has dressing in place as prescribed Yes Yes Yes Has compression in place as prescribed N/A N/A N/A Has offloadiing in place as prescribed N/A Yes Yes Experienced any changes in pain level or No No No management Left Footwear Diabetic Shoe Right Footwear Total Contact Total Contact Cast Cast Pain Scale: 0-10 Numeric Is Patient Pain Free? Yes Yes Yes WC - Nurse 1 - General Ulcer Measurement Start: 06/20/23 10:42 Freq: Status: Active Protocol: Activity Type Activity Date Activity User E-sign Co-sign Detail Recorded Client Recorded Date Recorded By Document 06/20/23 10:43 Desktop 06/20/23 10:51 Document 06/25/23 09:00 [facility] Desktop 06/25/23 09:12 [facility] Document 07/02/23 13:26 DL Desktop 07/02/23 13:35 DL 06/20/23 06/25/23 07/02/23 10:43 09:00 13:26 Wound Center Nurse 1 #2- R HEEL -Combined with other wound No -Current Size (cm) - Length 4.2 0.6 -Current Size (cm) - Width 2.9 1.5 -Current Size (cm) - Depth 0.1 0.1 -Total Square Cm 12.18 0.90 -Photo Taken No No -Epithelialization Small 1-33% Small 1-33% -Tunneling No No -Undermining/Tunneling No No -Circular Undermining No No -Exudate Amt Large Medium Medium -Exudate Type Yellow/Green Serosanguineous Serosanguineous -Wound Margin Distinct, Distinct, Distinct, Outline Outline Outline Attached Attached Attached -Granulation Amt Medium (34-66%) Large (67-100%) Large (67-100%) -Granulation Quality Red Red Grawn -Slough/Fibrin Yes Yes -Necrosis Amt Large (67-100%) Small (1-33%) Small (1-33%) -Necrotic Tissue Type Eschar Adherent Slough Adherent Slough -Structure Exposed N/A -Texture (Lianna-wound Skin Appearance) Assessed Assessed, Assessed,Callus Scarring ,Scarring -Moisture (Lianna-wound Skin Appearance) Assessed Assessed, Assessed,Dry/ Maceration Scaly -Color (Lianna-wound Skin Appearance) Assessed Assessed Assessed -Temperature (Lianna-wound Skin No Abnormality No Abnormality No Abnormality Appearance) (Pt Warm) (Pt Warm) (Pt Warm) -Tenderness on Palpation (Lianna-wound No No No Skin Appearance) -Ulcer Cleansing Soap and Water Not Cleansed Soap and Water -Foul Odor after Cleansing No No No -Anesthetic Used 5% Lidocaine 5% Lidocaine 5% Lidocaine Gel Gel Gel Right Calf (cm) 47.2 Right Ankle (cm) 28.7 - Nurse 2 - General Ulcer CM Notes Start: 06/20/23 10:42 Freq: Status: Active Protocol: Activity Type Activity Date Activity User E-sign Co-sign Detail Recorded Client Recorded Date Recorded By Document 06/20/23 11:22 Laptop 06/20/23 11:31 Document 06/25/23 09:21 Laptop 06/25/23 09:25 Document 07/02/23 13:50 Laptop 07/02/23 13:55 06/20/23 06/25/23 07/02/23 11:22 09:21 13:50 Wound Center Nurse 2 #2- R HEEL -Time : 09:21 13:50 -Correct Patient Yes Yes Yes -Correct Side, Site, Position Yes Yes Yes -Correct Procedure Yes Yes Yes -Procedure Performed Yes Yes Yes -Type of Procedure Debridement Debridement Debridement -Clinical Debridement Subcutaneous Subcutaneous Subcutaneous -Tissue Removed Subcutaneous Subcutaneous Subcutaneous -Post Debridement (cm) - Length 3.7 2.0 1.9 -Post Debridement (cm) - Width 4 1.0 0.9 -Post Debridement (cm) - Depth 0.2 0.2 0.2 -Total Square (Post) (cm) 14.8 2.00 1.71 -Area of Debridement (cm) - Length 3.7 2.0 1.9 -Area of Debridement (cm) - Width 4 1.0 0.9 -Total Square (Area) (cm) 14.8 2.00 1.71 -Tunneling No No No -Undermining/Tunneling No No No -Circular Undermining No No No -Wound/Ulcer Outcome Not Healed Not Healed Not Healed -Ulcer Cleansing Rinsed/ Rinsed/ Rinsed/ Irrigated with Irrigated with Irrigated with Saline Saline Saline -Foul Odor after Cleansing No No No -Bioengineered Tissue No No No -Bleeding Controlled with Pressure Pressure Pressure -Treatment Response Procedure Procedure Procedure Tolerated Well Tolerated Well Tolerated Well -Offloading Yes Yes Yes -Type of Offloading Total Contact Total Contact Total Contact Cast (TCC) - Cast (TCC) - Cast (TCC) - Right ($) Right ($) Right ($) -Debridement - Subq, 1st 20sq cm Yes Yes Yes Pain Scale: 0-10 Numeric Is Patient Pain Free? Yes Yes Yes WC - Nurse 3 - General Ulcer D/C NN Start: 06/20/23 10:42 Freq: Status: Active Protocol: Activity Type Activity Date Activity User E-sign Co-sign Detail Recorded Client Recorded Date Recorded By Document 06/20/23 12:12 [facility] Desktop 06/20/23 12:13 Document 06/25/23 09:40 Desktop 06/25/23 09:42 Document 07/02/23 14:12 Desktop 07/02/23 14:13 06/20/23 06/25/23 07/02/23 12:12 09:40 14:12 Wound Care Center Nurse 3 #2- R HEEL -Ulcer Cleansing Not Cleansed Not Cleansed Not Cleansed -Foul Odor after Cleansing No No -Negative Pressure Wound Therapy N/A N/A N/A -Other Dressing applied magalis applied patient patients primma -Primary Dressing Covered/Secured with Dry Gauze, Dry Gauze Secured with Tape Pain Scale: 0-10 Numeric Is Patient Pain Free? Yes Yes Yes Teaching: Wound Center TCC -Person Taught Patient Patient,Family -Teaching Method Discussion Discussion, Demonstration -Response to teaching Verbalize Verbalize understanding understanding Eliminating Foot Pressure -Person Taught Patient Patient,Family -Teaching Method Discussion Discussion -Response to teaching Verbalize Verbalize understanding understanding Offload: Mattress, Cushion, Reposition -Person Taught Patient -Teaching Method Discussion -Response to teaching Verbalize understanding WC - Visit Discharge Discharge Condition Stable Stable Stable Ambulatory Status Ambulatory, Ambulatory Ambulatory Walker Transportation Private Auto Private Auto Private Auto Medication Reconcilliation completed & Yes Yes Yes provided to patient/care provider Clinical Summary of Care Provided Yes Yes Yes Assessment/Plan Assessment/Plan (1) Pressure ulcer of right heel, stage 3: CODE(S): L89.613 - Pressure ulcer of right heel, stage 3 (2) 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 He was approved for Epicord/Epifix to this ulcer. He has received 10 application total (Epicord 7 applications, Epifix #3) with improvement in his ulcer. Wound care - Moistened Magalis covered ABD. Encouraged to continue to use lymphedema compression pump to left leg to help with his swelling. Start with one hour daily, may work up to 2 times per day. Offloading: He is amendable to restarting total contact cast applied today and verbal consent was obtained.? This was applied according to standard protocol in a neutral position a well-padded manner.? He tolerated this well.? To keep clean, dry, and intact until follow-up visit. He was encouraged to only walk with a total contact cast while in the cast boot.? He was also instructed to not get the cast wet and to shower using cast bag.? He voices understanding of this. I discussed with him that he will not be able to visualize for signs and symptoms of infection while he is in a total contact cast.? I did discuss the signs and symptoms of infection today.? Informed him if he notices any redness moving up the leg, continued feeling of oozing, increasing odor, increasing pain, or if he experiences any fever greater than 101 degree, nausea, vomiting, or chills that he is to report straight to the ED for removal of the total contact cast for evaluation as these are signs of progressing infection.? He voices understanding of this today. Wound culture obtained 06/20/23 which was positive for Staphylococcus pseudintermediu, Pseudomonas aeruginosa, Corynebacterium minutissiumum, and Anaerobic cocci. He is still taking Levaquin and Flagyl. A wound culture was obtained 08/30/22 which was positive for VRE, Kocuria kristinae, and Corynebacterium striatum completed Linezolid. Encouraged increase protein intake with low carbs to help with blood sugars and wound healing. He is on Doxycycline as suppressive treatment since he had his left knee replaced, this is prescribed by Orthopaedics. Follow up one week. Call or come in sooner if develop any concerns.
[2023-07-09 14:50] VITALS: BP 176/89; PULSE 88; TEMP 36.8; BMI 46.5
--- NOTE | 2023-07-09 16:12 | PCM.WC.PN ---
History of Present Illness Date of Service: 07/09/23 Chief Complaint: Right heel ulcer History of Wound: 67 year old male presents to the wound center for evaluation of his right heal ulcer. It started as a a pressure ulcer in February when he he was in TCU and it healed. It then became a blister right before his Left TKR surgery. He had his left knee replaced 07/14/22 at [facility]. 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 He also has a history of diabetes, HTN, lymphedema, hypercholesterolemia and PE that he is on Xerelto. He currently has home health. Wound culture obtained on 08/30/22 which are positive for VRE, Kocuria kristinae and Corynebacterium striatum. He will completed the Linezolid. Wound culture obtained 06/20/23 which was positive for Staphylococcus pseudintermediu, Pseudomonas aeruginosa, Corynebacterium minutissiumum, and Anaerobic cocci. He was started on Levaquin and Flagyl. Foot xray 09/27/22 - Osteopenia with diffuse osteoarthritic changes. Diffuse soft tissue swelling with ossification of the distal Achilles tendon. No acute abnormality or evidence of erosive changes. Wound care - He has been approved for Epicord and Epifix and has received 10 applications total. Magalis covered by ABD/gauze. He denies any fever, chills, nausea and vomiting. Progress of Wound: Right lateral heal ulcer is stable, no improvement this week. The wound bed is beefy pink. There is increased dried tissue surrounding the ulcer. He is tolerating the TCC well. Objective Data Objective Data Vital Signs: Vital Signs Temp Pulse Resp BP O2 Del Method 98.3 F 88 18 176/89 H Room Air 07/09/23 14:50 07/09/23 14:50 07/02/23 13:26 07/09/23 14:50 07/09/23 14:50 Oxygen Delivery Method Room Air Weight: 343 lb Body Mass Index (BMI) 46.5 Lab / Micro Data Micro: Microbiology 06/20/23 11:27 Wound - Right Foot Gram Stain - Final 06/20/23 11:27 Wound - Right Foot Wound Culture - Final Staphylococcus pseudintermediu Pseudomonas aeruginosa Corynebacterium minutissimum 06/20/23 11:27 Wound - Right Foot Anaerobic Culture - Final Anaerobic cocci Charges/Coding Procedures Integumentary 111xxx-113xx: [id number] [place] subq tissue 20 sq cm/< Procedures Musculoskeletal 20xxx-29xxx: [id number] APPLY RIGID LEG CAST (total contact cast) Debridement Note Debridement Note Wound debrided: Right posterior lateral heel Laterality: Right Wound Grade/Stage: Gomez stage II Type of Debridement: Excisional debridement Anesthesia Used: 5% Lidocaine Gel Depth: Down to and including healthy tissue and in the subcutaneous layer Percentage of wound debrided: 100 Instrument Used: 5mm curette Tissue Removed: Removed non viable tissue and slough Severity: Fat Layer Exposed Amount of bleeding with debridement: Mild Bleeding Controlled with: Pressure and Compression and gauze Patient tolerated procedure: Patient tolerated procedure well Post-Debridement Measurements and Additional Note: Post-Debridement Measurements/Treatment - Nurse 1 - General Ulcer Assessment Start: 06/20/23 10:42 Freq: Status: Active Protocol: NELL Activity Type Activity Date Activity User E-sign Co-sign Detail Recorded Client Recorded Date Recorded By Document 06/20/23 10:43 GM Desktop 06/20/23 10:51 GM Document 06/25/23 09:[address] [facility] Desktop 06/25/23 09:12 BM Document 07/02/23 13:26 DL Desktop 07/02/23 13:35 DL Document 07/09/23 14:50 GM Desktop 07/09/23 15:10 06/20/23 06/25/23 07/02/23 10:43 09:00 13:26 - Today's Visit Information Type of service Follow-up Visit Follow-up Visit Follow-up Visit (Physician/RV REPAIR TECHNICIAN (Physician/RV REPAIR TECHNICIAN (Physician/RV REPAIR TECHNICIAN ) ) ) Arrival Mode Ambulatory, Ambulatory, Ambulatory Walker Walker Transfer Assistance None None None Accompanied by spouss Patient Identification Verified (Name & Yes Yes Yes ) Patient Requires Transmission-Based No No No Precautions Safety Precautions Fall Prevention Height and Weight Body Mass Index (BMI) 46.5 46.5 46.5 BMI Classification Obese Obese Obese Vital Signs Temperature (97.8 F-99.1 F) 97.9 F 96.9 F L 97.9 F Temperature Source Temporal Temporal Temporal Pulse Rate (60-100) 67 71 92 Pulse Location Monitor Monitor Monitor Respiratory Rate (12-18) 16 18 Respiratory rate source Observation Observation Oxygen Delivery Method Room Air Room Air Blood Pressure (90/60-120/80) 160/81 H 172/90 H 144/71 H Blood Pressure Mean (mm Hg) 107 117 95 Source Monitor Monitor Monitor Position Sitting Sitting Blood Pressure Location Left Arm Right Arm History Since Last Visit- (Skip if this is Patient's initial visit) Have you changed medications since your No No No last visit? Any new allergies or adverse reactions No No No Had a fall/change in ADL's that may No No No increase risk of falls Signs or symptoms of abuse and/or No No No neglect since last visit Have you been in the hospital since your No No No last visit? Has dressing in place as prescribed Yes Yes Yes Has compression in place as prescribed N/A N/A N/A Has offloadiing in place as prescribed N/A Yes Yes Experienced any changes in pain level or No No No management Left Footwear Diabetic Shoe Right Footwear Total Contact Total Contact Cast Cast Pain Scale: 0-10 Numeric Is Patient Pain Free? Yes Yes Yes 07/09/23 14:50 WC - Today's Visit Information Type of service Follow-up Visit (Physician/RV REPAIR TECHNICIAN ) Arrival Mode Ambulatory, Walker Transfer Assistance None Accompanied by Patient Identification Verified (Name & Yes ) Patient Requires Transmission-Based No Precautions Safety Precautions Height and Weight Body Mass Index (BMI) 46.5 BMI Classification Obese Vital Signs Temperature (97.8 F-99.1 F) 98.3 F Temperature Source Temporal Pulse Rate (60-100) 88 Pulse Location Monitor Respiratory Rate (12-18) Respiratory rate source Observation Oxygen Delivery Method Room Air Blood Pressure (90/60-120/80) 176/89 H Blood Pressure Mean (mm Hg) 118 Source Monitor Position Sitting Blood Pressure Location Left Forearm History Since Last Visit- (Skip if this is Patient's initial visit) Have you changed medications since your No last visit? Any new allergies or adverse reactions No Had a fall/change in ADL's that may No increase risk of falls Signs or symptoms of abuse and/or No neglect since last visit Have you been in the hospital since your No last visit? Has dressing in place as prescribed Yes Has compression in place as prescribed Yes Has offloadiing in place as prescribed No Experienced any changes in pain level or No management Left Footwear Regular Shoe Right Footwear Regular Shoe Pain Scale: 0-10 Numeric Is Patient Pain Free? Yes WC - Nurse 1 - General Ulcer Measurement Start: 06/20/23 10:42 Freq: Status: Active Protocol: Activity Type Activity Date Activity User E-sign Co-sign Detail Recorded Client Recorded Date Recorded By Document 06/20/23 10:43 GM Desktop 06/20/23 10:51 GM Document 06/25/23 09:00 [facility] Desktop 06/25/23 09:12 [facility]F Document 07/02/23 13:26 DL Desktop 07/02/23 13:35 DL Document 07/09/23 14:50 GM Desktop 07/09/23 15:10 GM 06/20/23 06/25/23 07/02/23 10:43 09:00 13:26 Wound Center Nurse 1 #2- R HEEL -Combined with other wound No -Current Size (cm) - Length 4.2 0.6 -Current Size (cm) - Width 2.9 1.5 -Current Size (cm) - Depth 0.1 0.1 -Total Square Cm 12.18 0.90 -Photo Taken No No -Epithelialization Small 1-33% Small 1-33% -Tunneling No No -Undermining/Tunneling No No -Circular Undermining No No -Exudate Amt Large Medium Medium -Exudate Type Yellow/Green Serosanguineous Serosanguineous -Wound Margin Distinct, Distinct, Distinct, Outline Outline Outline Attached Attached Attached -Granulation Amt Medium (34-66%) Large (67-100%) Large (67-100%) -Granulation Quality Red Red Sentinel -Slough/Fibrin Yes Yes -Necrosis Amt Large (67-100%) Small (1-33%) Small (1-33%) -Necrotic Tissue Type Eschar Adherent Slough Adherent Slough -Structure Exposed N/A -Texture (Lianna-wound Skin Appearance) Assessed Assessed, Assessed,Callus Scarring ,Scarring -Moisture (Lianna-wound Skin Appearance) Assessed Assessed, Assessed,Dry/ Maceration Scaly -Color (Lianna-wound Skin Appearance) Assessed Assessed Assessed -Temperature (Lianna-wound Skin No Abnormality No Abnormality No Abnormality Appearance) (Pt Warm) (Pt Warm) (Pt Warm) -Tenderness on Palpation (Lianna-wound No No No Skin Appearance) -Ulcer Cleansing Soap and Water Not Cleansed Soap and Water -Foul Odor after Cleansing No No No -Anesthetic Used 5% Lidocaine 5% Lidocaine 5% Lidocaine Gel Gel Gel Right Calf (cm) 47.2 Right Ankle (cm) 28.7 07/09/23 14:50 Wound Center Nurse 1 #2- R HEEL -Combined with other wound No -Current Size (cm) - Length -Current Size (cm) - Width -Current Size (cm) - Depth -Total Square Cm -Photo Taken No -Epithelialization Medium 34-66% -Tunneling No -Undermining/Tunneling No -Circular Undermining No -Exudate Amt -Exudate Type Yellow/Green -Wound Margin Distinct, Outline Attached -Granulation Amt -Granulation Quality -Slough/Fibrin -Necrosis Amt Small (1-33%) -Necrotic Tissue Type Adherent Slough -Structure Exposed N/A -Texture (Lianna-wound Skin Appearance) Assessed -Moisture (Lianna-wound Skin Appearance) Assessed,Dry/ Scaly -Color (Lianna-wound Skin Appearance) Assessed -Temperature (Lianna-wound Skin No Abnormality Appearance) (Pt Warm) -Tenderness on Palpation (Lianna-wound No Skin Appearance) -Ulcer Cleansing Soap and Water -Foul Odor after Cleansing No -Anesthetic Used 5% Lidocaine Gel Right Calf (cm) 48.0 Right Ankle (cm) 31.0 - Nurse 2 - General Ulcer CM Notes Start: 06/20/23 10:42 Freq: Status: Active Protocol: Activity Type Activity Date Activity User E-sign Co-sign Detail Recorded Client Recorded Date Recorded By Document 06/20/23 11:22 Laptop 06/20/23 11:31 Document 06/25/23 09:21 Laptop 06/25/23 09:25 Document 07/02/23 13:50 Laptop 07/02/23 13:55 Document 07/09/23 15:22 Laptop 07/09/23 15:27 06/20/23 06/25/23 07/02/23 11:22 09:21 13:50 Wound Center Nurse 2 #2- R HEEL -Time 11: 09:21 13:50 -Correct Patient Yes Yes Yes -Correct Side, Site, Position Yes Yes Yes -Correct Procedure Yes Yes Yes -Procedure Performed Yes Yes Yes -Type of Procedure Debridement Debridement Debridement -Clinical Debridement Subcutaneous Subcutaneous Subcutaneous -Tissue Removed Subcutaneous Subcutaneous Subcutaneous -Post Debridement (cm) - Length 3.7 2.0 1.9 -Post Debridement (cm) - Width 4 1.0 0.9 -Post Debridement (cm) - Depth 0.2 0.2 0.2 -Total Square (Post) (cm) 14.8 2.00 1.71 -Area of Debridement (cm) - Length 3.7 2.0 1.9 -Area of Debridement (cm) - Width 4 1.0 0.9 -Total Square (Area) (cm) 14.8 2.00 1.71 -Tunneling No No No -Undermining/Tunneling No No No -Circular Undermining No No No -Wound/Ulcer Outcome Not Healed Not Healed Not Healed -Ulcer Cleansing Rinsed/ Rinsed/ Rinsed/ Irrigated with Irrigated with Irrigated with Saline Saline Saline -Foul Odor after Cleansing No No No -Bioengineered Tissue No No No -Bleeding Controlled with Pressure Pressure Pressure -Treatment Response Procedure Procedure Procedure Tolerated Well Tolerated Well Tolerated Well -Offloading Yes Yes Yes -Type of Offloading Total Contact Total Contact Total Contact Cast (TCC) - Cast (TCC) - Cast (TCC) - Right ($) Right ($) Right ($) -Debridement - Subq, 1st 20sq cm Yes Yes Yes Pain Scale: 0-10 Numeric Is Patient Pain Free? Yes Yes Yes 07/09/23 15:22 Wound Center Nurse 2 #2- R HEEL -Time 15:22 -Correct Patient Yes -Correct Side, Site, Position Yes -Correct Procedure Yes -Procedure Performed Yes -Type of Procedure Debridement -Clinical Debridement Subcutaneous -Tissue Removed Subcutaneous -Post Debridement (cm) - Length 1.9 -Post Debridement (cm) - Width 1.0 -Post Debridement (cm) - Depth 0.2 -Total Square (Post) (cm) 1.90 -Area of Debridement (cm) - Length 1.9 -Area of Debridement (cm) - Width 1.0 -Total Square (Area) (cm) 1.90 -Tunneling No -Undermining/Tunneling No -Circular Undermining No -Wound/Ulcer Outcome Not Healed -Ulcer Cleansing Rinsed/ Irrigated with Saline -Foul Odor after Cleansing No -Bioengineered Tissue No -Bleeding Controlled with Pressure -Treatment Response Procedure Tolerated Well -Offloading Yes -Type of Offloading Total Contact Cast (TCC) - Right ($) -Debridement - Subq, 1st 20sq cm Yes Pain Scale: 0-10 Numeric Is Patient Pain Free? Yes - Nurse 3 - General Ulcer D/C NN Start: 06/20/23 10:42 Freq: Status: Active Protocol: Activity Type Activity Date Activity User E-sign Co-sign Detail Recorded Client Recorded Date Recorded By Document 06/20/23 12:12 [employer] Desktop 06/20/23 12:13 Document 06/25/23 09:40 Desktop 06/25/23 09:42 Document 07/02/23 14:12 [facility] 07/02/23 14:13 Document 07/09/23 15:27 Laptop 07/09/23 15:28 06/20/23 06/25/23 07/02/23 12:12 09:40 14:12 Wound Care Center Nurse 3 #2- R HEEL -Ulcer Cleansing Not Cleansed Not Cleansed Not Cleansed -Foul Odor after Cleansing No No -Negative Pressure Wound Therapy N/A N/A N/A -Other Dressing applied magalis applied patient patients primma -Primary Dressing Covered/Secured with Dry Gauze, Dry Gauze Secured with Tape Pain Scale: 0-10 Numeric Is Patient Pain Free? Yes Yes Yes Teaching: Wound Center TCC -Person Taught Patient Patient,Family -Teaching Method Discussion Discussion, Demonstration -Response to teaching Verbalize Verbalize understanding understanding Eliminating Foot Pressure -Person Taught Patient Patient,Family -Teaching Method Discussion Discussion -Response to teaching Verbalize Verbalize understanding understanding Offload: Mattress, Cushion, Reposition -Person Taught Patient -Teaching Method Discussion -Response to teaching Verbalize understanding - Visit Discharge Discharge Condition Stable Stable Stable Ambulatory Status Ambulatory, Ambulatory Ambulatory Walker Transportation Private Auto Private Auto Private Auto Medication Reconcilliation completed & Yes Yes Yes provided to patient/care provider Clinical Summary of Care Provided Yes Yes Yes 07/09/23 15:27 Wound Care Center Nurse 3 #2- R HEEL -Ulcer Cleansing Rinsed/ Irrigated with Saline -Foul Odor after Cleansing No -Negative Pressure Wound Therapy -Other Dressing magalis -Primary Dressing Covered/Secured with Dry Gauze Pain Scale: 0-10 Numeric Is Patient Pain Free? Yes Teaching: Wound Center TCC -Person Taught -Teaching Method -Response to teaching Eliminating Foot Pressure -Person Taught -Teaching Method -Response to teaching Offload: Mattress, Cushion, Reposition -Person Taught -Teaching Method -Response to teaching WC - Visit Discharge Discharge Condition Stable Ambulatory Status Ambulatory Transportation Private Auto Medication Reconcilliation completed & Yes provided to patient/care provider Clinical Summary of Care Provided Yes Assessment/Plan Assessment/Plan (1) Pressure ulcer of right heel, stage 3: CODE(S): L89.613 - Pressure ulcer of right heel, stage 3 (2) 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 He was approved for Epicord/Epifix to this ulcer. He has received 10 application total (Epicord 7 applications, Epifix #3) with improvement in his ulcer. Wound care - Moistened Magalis covered ABD. Encouraged to continue to use lymphedema compression pump to left leg to help with his swelling. Start with one hour daily, may work up to 2 times per day. Offloading: He is amendable to restarting total contact cast applied today and verbal consent was obtained.? This was applied according to standard protocol in a neutral position a well-padded manner.? He tolerated this well.? To keep clean, dry, and intact until follow-up visit. He was encouraged to only walk with a total contact cast while in the cast boot.? He was also instructed to not get the cast wet and to shower using cast bag.? He voices understanding of this. I discussed with him that he will not be able to visualize for signs and symptoms of infection while he is in a total contact cast.? I did discuss the signs and symptoms of infection today.? Informed him if he notices any redness moving up the leg, continued feeling of oozing, increasing odor, increasing pain, or if he experiences any fever greater than 101 degree, nausea, vomiting, or chills that he is to report straight to the ED for removal of the total contact cast for evaluation as these are signs of progressing infection.? He voices understanding of this today. Wound culture obtained 06/20/23 which was positive for Staphylococcus pseudintermediu, Pseudomonas aeruginosa, Corynebacterium minutissiumum, and Anaerobic cocci. He completed Levaquin and Flagyl. A wound culture was obtained 08/30/22 which was positive for VRE, Kocuria kristinae, and Corynebacterium striatum completed Linezolid. Encouraged increase protein intake with low carbs to help with blood sugars and wound healing. He is on Doxycycline as suppressive treatment since he had his left knee replaced, this is prescribed by Orthopaedics. Follow up one week with Dr. López for second opinion on this non healing foot ulcer. Call or come in sooner if develop any concerns.
== END 2023-07-12 23:59 | disposition home or self-care (01) ==
LOC: WC 15:00
PROVIDERS: PCP Internal Medicine; Referring Provider Internal Medicine; Visit Provider Nurse Practitioner Family
DX: E11.621 Type 2 diabetes mellitus with foot ulcer (principal); L97.412 Non-pressure chronic ulcer of right heel and midfoot with fat layer exposed; E11.42 Type 2 diabetes mellitus with diabetic polyneuropathy; Z79.4 Long term (current) use of insulin; I89.0 Lymphedema, not elsewhere classified; I10 Essential (primary) hypertension; R60.0 Localized edema; E78.00 Pure hypercholesterolemia, unspecified; Z79.82 Long term (current) use of aspirin; Z79.01 Long term (current) use of anticoagulants; Z79.85 Long-term (current) use of injectable non-insulin antidiabetic drugs
CPT/HCPCS: 11042; 29445; 87070; 87075; 87077; 87186; 87205

== ENCOUNTER 2023-08-01 11:00 | Outpatient (RCR) | payer MEDICARE, BC, SELFPAY ==
[2023-07-13 00:47] VITALS: BP 176/89; PULSE 88; RESP 18; TEMP 36.8; BMI 46.5
[2023-07-18 14:59] VITALS: BP 172/88; PULSE 102; RESP 20; TEMP 36.2; BMI 46.5
--- NOTE | 2023-07-18 16:45 | PCM.WC.PN ---
History of Present Illness Date of Service: 07/18/23 Chief Complaint: Right heel ulcer History of Wound: 67 year old male presents to the wound center for evaluation of his right heal ulcer. It started as a a pressure ulcer in February when he he was in TCU and it healed. It then became a blister right before his Left TKR surgery. He had his left knee replaced 07/14/22 at [facility]. 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 He also has a history of diabetes, HTN, lymphedema, hypercholesterolemia and PE that he is on Xerelto. He currently has home health. Wound culture obtained on 08/30/22 which are positive for VRE, Kocuria kristinae and Corynebacterium striatum. He will completed the Linezolid. Wound culture obtained 06/20/23 which was positive for Staphylococcus pseudintermediu, Pseudomonas aeruginosa, Corynebacterium minutissiumum, and Anaerobic cocci. He was started on Levaquin and Flagyl. Foot xray 09/27/22 - Osteopenia with diffuse osteoarthritic changes. Diffuse soft tissue swelling with ossification of the distal Achilles tendon. No acute abnormality or evidence of erosive changes. Wound care - He has been approved for Epicord and Epifix and has received 10 applications total. Joelle covered by ABD/gauze. He denies any fever, chills, nausea and vomiting. Subjective Subjective Mr. Spears is a 67-year-old diabetic male presenting to the wound care center today for follow-up and evaluation of full-thickness ulceration to the right heel. Patient is seeking a second opinion for his wound that is chronic in nature. He has exhausted all conservative treatment, TTC casting, excisional debridement and is looking for fresh eyes for second opinion regarding his current ulceration to the right heel. Patient admits to having elevated blood sugar over 200 mg/dL, however, he is doing all he can to keep it below 150 mg/dL. He denies trauma. He denies pressure to the wound. He denies constitutional symptoms. No other pedal complaints at this time. Objective Data Objective Data Vital Signs: Vital Signs Temp Pulse Resp BP 97.2 F L 102 H 20 H 172/88 H 07/18/23 14:59 07/18/23 14:59 07/18/23 14:59 07/18/23 14:59 Weight: 155.582 kg Body Mass Index (BMI) 46.5 Physical Exam Narrative Neurovascular status is unchanged. Nonpitting edema appreciated to the right lower extremity. Evidence of full-thickness ulceration appreciated to the right heel. Ulceration measures 2.0 x 0.7 x 0.2 cm. Wound base is under percent of granular nature. No evidence of erythema, proximal streaking, or sign of infection. No pain with calf compression. Excisional debridement down to and including subcutaneous tissue with a number 5 mm dermal curette to the right heel. Predebridement measurement measures 1.5 x 0.5 x 0.1 cm. Postdebridement measurement is 2.0 x 0.7 x 0.2 cm. Debridement Note Debridement Note Debridement Free Text: Excisional debridement down to and including subcutaneous tissue with a number 5 mm dermal curette to the right heel. Predebridement measurement measures 1.5 x 0.5 x 0.1 cm. Postdebridement measurement is 2.0 x 0.7 x 0.2 cm. Post-Debridement Measurements and Additional Note: Post-Debridement Measurements/Treatment - Nurse 1 - General Ulcer Assessment Start: 07/18/23 14:58 Freq: Status: Active Protocol: NELL Activity Type Activity Date Activity User E-sign Co-sign Detail Recorded Client Recorded Date Recorded By Document 07/18/23 14:59 DL Desktop 07/18/23 15:12 DL 07/18/23 14:59 - Today's Visit Information Type of service Follow-up Visit (Physician/CYLINDER VALVE REPAIRER ) Arrival Mode Ambulatory Transfer Assistance None Patient Identification Verified (Name & Yes ) Patient Requires Transmission-Based No Precautions Height and Weight Body Mass Index (BMI) 46.5 BMI Classification Obese Vital Signs Temperature (97.8 F-99.1 F) 97.2 F L Temperature Source Temporal Pulse Rate (60-100) 102 H Pulse Location Monitor Respiratory Rate (12-18) 20 H Respiratory rate source Observation Blood Pressure (90/60-120/80) 172/88 H Blood Pressure Mean (mm Hg) 116 Source Monitor History Since Last Visit- (Skip if this is Patient's initial visit) Have you changed medications since your No last visit? Any new allergies or adverse reactions No Had a fall/change in ADL's that may No increase risk of falls Signs or symptoms of abuse and/or No neglect since last visit Have you been in the hospital since your No last visit? Has dressing in place as prescribed Yes Has compression in place as prescribed Yes Has offloadiing in place as prescribed Yes Experienced any changes in pain level or No management Right Footwear Total Contact Cast Pain Scale: 0-10 Numeric Is Patient Pain Free? Yes WC - Nurse 1 - General Ulcer Measurement Start: 07/18/23 14:58 Freq: Status: Active Protocol: Activity Type Activity Date Activity User E-sign Co-sign Detail Recorded Client Recorded Date Recorded By Document 07/18/23 14:59 DL Desktop 07/18/23 15:12 DL 07/18/23 14:59 Wound Center Nurse 1 #2- R HEEL -Current Size (cm) - Length 0.8 -Current Size (cm) - Width 0.3 -Current Size (cm) - Depth 0.1 -Total Square Cm 0.24 -Exudate Amt Small -Exudate Type Serosanguineous -Wound Margin Thickened -Granulation Amt Small (1-33%) -Granulation Quality [place] -Necrosis Amt Large (67-100%) -Necrotic Tissue Type Adherent Slough -Structure Exposed N/A -Texture (Lianna-wound Skin Appearance) Scarring -Moisture (Lianna-wound Skin Appearance) No Abnormality -Color (Lianna-wound Skin Appearance) No Abnormality -Temperature (Lianna-wound Skin No Abnormality Appearance) (Pt Warm) -Tenderness on Palpation (Lianna-wound No Skin Appearance) -Ulcer Cleansing Soap and Water -Foul Odor after Cleansing No -Anesthetic Used 5% Lidocaine Gel Right Calf (cm) 47.2 Right Ankle (cm) 29.3 - Nurse 2 - General Ulcer CM Notes Start: 07/18/23 14:58 Freq: Status: Active Protocol: Activity Type Activity Date Activity User E-sign Co-sign Detail Recorded Client Recorded Date Recorded By Document 07/18/23 15:43 Laptop 07/18/23 15:52 07/18/23 15:43 Wound Center Nurse 2 #2- R HEEL -Time 15:43 -Correct Patient Yes -Correct Side, Site, Position Yes -Correct Procedure Yes -Procedure Performed Yes -Type of Procedure Debridement -Clinical Debridement Subcutaneous -Tissue Removed Subcutaneous -Post Debridement (cm) - Length 2.0 -Post Debridement (cm) - Width 0.7 -Post Debridement (cm) - Depth 0.2 -Total Square (Post) (cm) 1.40 -Area of Debridement (cm) - Length 2.0 -Area of Debridement (cm) - Width 0.7 -Total Square (Area) (cm) 1.40 -Tunneling No -Undermining/Tunneling No -Circular Undermining No -Wound/Ulcer Outcome Not Healed -Ulcer Cleansing Rinsed/ Irrigated with Saline -Foul Odor after Cleansing No -Bioengineered Tissue No -Bleeding Controlled with Pressure -Treatment Response Procedure Tolerated Well -Offloading Yes -Type of Offloading Surgical Shoe -Assistive Device(s) Walker -Debridement - Subq, 1st 20sq cm Yes Pain Scale: 0-10 Numeric Is Patient Pain Free? Yes - Nurse 3 - General Ulcer D/C NN Start: 07/18/23 14:58 Freq: Status: Active Protocol: Activity Type Activity Date Activity User E-sign Co-sign Detail Recorded Client Recorded Date Recorded By Document 07/18/23 16:05 [facility] Desktop 07/18/23 16:05 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 Yes - Visit Discharge Discharge Condition Stable Ambulatory Status Ambulatory Transportation Private Auto Accompanied by Assessment/Plan Assessment/Plan (1) Chronic ulcer of right heel with fat layer exposed: CODE(S): L97.412 - Non-pressure chronic ulcer of right heel and midfoot with fat layer exposed PLAN: Patient was examined and evaluated. All findings were discussed with the patient. All questions were answered to the patient's satisfaction. Excisional debridement down to and including subcutaneous tissue with a number 5 mm dermal curette to the right heel. Predebridement measurement measures 1.5 x 0.5 x 0.1 cm. Postdebridement measurement is 2.0 x 0.7 x 0.2 cm. Ulceration was dressed with Joelle, Betadine paint and sterile Band-Aid. Single Tubigrip was donned to the right lower extremity. Patient was educated to be weightbearing as tolerated in surgical shoe. The patient will need to follow-up in the office for cam boot secondary to Achilles strain. Reviewed the patient's outside radiographs and show evidence of calcification as well as calcaneal spurring to the right heel which could be causing the patient's ulceration. We will try to exhaust all conservative treatment before we start discussing surgical treatment. The patient will follow-up in 1 week. He left the office pleased with this visit. (2) Acute painful diabetic polyneuropathy: CODE(S): E11.42 - Type 2 diabetes mellitus with diabetic polyneuropathy
[2023-07-25 14:31] VITALS: BP 150/87; PULSE 91; RESP 22; TEMP 36.4; BMI 46.5
--- NOTE | 2023-07-25 16:03 | PCM.WC.PN ---
History of Present Illness Date of Service: 07/25/23 Chief Complaint: Right heel ulcer History of Wound: 67 year old male presents to the wound center for evaluation of his right heal ulcer. It started as a a pressure ulcer in February when he he was in TCU and it healed. It then became a blister right before his Left TKR surgery. He had his left knee replaced 07/14/22 at [facility]. 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 He also has a history of diabetes, HTN, lymphedema, hypercholesterolemia and PE that he is on Xerelto. He currently has home health. Wound culture obtained on 08/30/22 which are positive for VRE, Kocuria kristinae and Corynebacterium striatum. He will completed the Linezolid. Wound culture obtained 06/20/23 which was positive for Staphylococcus pseudintermediu, Pseudomonas aeruginosa, Corynebacterium minutissiumum, and Anaerobic cocci. He was started on Levaquin and Flagyl. Foot xray 09/27/22 - Osteopenia with diffuse osteoarthritic changes. Diffuse soft tissue swelling with ossification of the distal Achilles tendon. No acute abnormality or evidence of erosive changes. Wound care - He has been approved for Epicord and Epifix and has received 10 applications total. Joelle covered by ABD/gauze. He denies any fever, chills, nausea and vomiting. Subjective Subjective Mr. Spears is a 67-year-old diabetic male presenting for follow-up and evaluation of right heel wound. Patient has been doing home dressing changes provided by his . She admits his wound is healed. His blood sugar has been controlled. He denies trauma. Denies constitutional symptoms. No other pedal complaints at this time. Objective Data Objective Data Vital Signs: Vital Signs Temp Pulse Resp BP 97.6 F L 91 22 H 150/87 H 07/25/23 14:31 07/25/23 14:31 07/25/23 14:31 07/25/23 14:31 Weight: 155.582 kg Body Mass Index (BMI) 46.5 Physical Exam Narrative Neurovascular status is unchanged. Nonpitting edema appreciated to the right lower extremity. Evidence of full-thickness ulceration appreciated to the right heel is now healed with evidence of sanguinous crust.No evidence of erythema, proximal streaking, or sign of infection. No pain with calf compression. Debridement Note Debridement Note Post-Debridement Measurements and Additional Note: Post-Debridement Measurements/Treatment WC - Nurse 1 - General Ulcer Assessment Start: 07/18/23 14:58 Freq: Status: Active Protocol: NELL Activity Type Activity Date Activity User E-sign Co-sign Detail Recorded Client Recorded Date Recorded By Document 07/18/23 14:59 DL Desktop 07/18/23 15:12 DL Document 07/25/23 14:31 DL Desktop 07/25/23 14:37 DL 07/18/23 07/25/23 14:59 14:31 WC - Today's Visit Information Type of service Follow-up Visit Follow-up Visit (Physician/INTEGRATED CIRCUIT DESIGN ENGINEER (Physician/INTEGRATED CIRCUIT DESIGN ENGINEER ) ) Arrival Mode Ambulatory Ambulatory, Walker Transfer Assistance None None Patient Identification Verified (Name & Yes Yes ) Patient Requires Transmission-Based No No Precautions Finger Stick Blood Sugar(mg/dl) (if 180 indicated): Blood Sugar Stated by Patient Height and Weight Body Mass Index (BMI) 46.5 46.5 BMI Classification Obese Obese Vital Signs Temperature (97.8 F-99.1 F) 97.2 F L 97.6 F L Temperature Source Temporal Temporal Pulse Rate (60-100) 102 H 91 Pulse Location Monitor Monitor Respiratory Rate (12-18) 20 H 22 H Respiratory rate source Observation Observation Blood Pressure (90/60-120/80) 172/88 H 150/87 H Blood Pressure Mean (mm Hg) 116 108 Source Monitor Monitor History Since Last Visit- (Skip if this is Patient's initial visit) Have you changed medications since your No No last visit? Any new allergies or adverse reactions No No Had a fall/change in ADL's that may No No increase risk of falls Signs or symptoms of abuse and/or No No neglect since last visit Have you been in the hospital since your No No last visit? Has dressing in place as prescribed Yes Yes Has compression in place as prescribed Yes Yes Has offloadiing in place as prescribed Yes Yes Experienced any changes in pain level or No No management Right Footwear Total Contact Surgical Shoe Cast with pressure relief insole Pain Scale: 0-10 Numeric Is Patient Pain Free? Yes Yes - Nurse 1 - General Ulcer Measurement Start: 07/18/23 14:58 Freq: Status: Active Protocol: Activity Type Activity Date Activity User E-sign Co-sign Detail Recorded Client Recorded Date Recorded By Document 07/18/23 14:59 DL Desktop 07/18/23 15:12 DL Document 07/25/23 14:31 DL Desktop 07/25/23 14:37 DL 07/18/23 07/25/23 14:59 14:31 Wound Center Nurse 1 #2- R HEEL -Current Size (cm) - Length 0.8 0.1 -Current Size (cm) - Width 0.3 0.1 -Current Size (cm) - Depth 0.1 0.1 -Total Square Cm 0.24 0.01 -Exudate Amt Small -Exudate Type Serosanguineous -Wound Margin Thickened -Granulation Amt Small (1-33%) None Present (0 %) -Granulation Quality [place] -Necrosis Amt Large (67-100%) None Present (0 %) -Necrotic Tissue Type Adherent Slough -Structure Exposed N/A N/A -Texture (Lianna-wound Skin Appearance) Scarring No Abnormality -Moisture (Lianna-wound Skin Appearance) No Abnormality No Abnormality -Color (Lianna-wound Skin Appearance) No Abnormality No Abnormality -Temperature (Lianna-wound Skin No Abnormality No Abnormality Appearance) (Pt Warm) (Pt Warm) -Tenderness on Palpation (Lianna-wound No Skin Appearance) -Ulcer Cleansing Soap and Water Soap and Water -Foul Odor after Cleansing No No -Anesthetic Used 5% Lidocaine 5% Lidocaine Gel Gel -Wound Comment(s) Joelle dried to ulcer today. Right Calf (cm) 47.2 Right Ankle (cm) 29.3 WC - Nurse 2 - General Ulcer CM Notes Start: 07/18/23 14:58 Freq: Status: Active Protocol: Activity Type Activity Date Activity User E-sign Co-sign Detail Recorded Client Recorded Date Recorded By Document 07/18/23 15:43 Laptop 07/18/23 15:52 Document 07/25/23 15:01 Desktop 07/25/23 15:02 07/18/23 07/25/23 15:43 15:01 Wound Center Nurse 2 #2- R HEEL -Time 15:43 -Correct Patient Yes No -Correct Side, Site, Position Yes No -Correct Procedure Yes No -Procedure Performed Yes No -Type of Procedure Debridement -Clinical Debridement Subcutaneous -Tissue Removed Subcutaneous -Post Debridement (cm) - Length 2.0 0 -Post Debridement (cm) - Width 0.7 0 -Post Debridement (cm) - Depth 0.2 0 -Total Square (Post) (cm) 1.40 0 -Area of Debridement (cm) - Length 2.0 0 -Area of Debridement (cm) - Width 0.7 0 -Total Square (Area) (cm) 1.40 0 -Tunneling No -Undermining/Tunneling No -Circular Undermining No -Wound/Ulcer Outcome Not Healed Healed- Epithelialized -Ulcer Cleansing Rinsed/ Irrigated with Saline -Foul Odor after Cleansing No -Bioengineered Tissue No -Bleeding Controlled with Pressure -Treatment Response Procedure Tolerated Well -Offloading Yes -Type of Offloading Surgical Shoe -Assistive Device(s) Walker -Debridement - Subq, 1st 20sq cm Yes Pain Scale: 0-10 Numeric Is Patient Pain Free? Yes Yes WC - Nurse 3 - General Ulcer D/C NN Start: 07/18/23 14:58 Freq: Status: Active Protocol: Activity Type Activity Date Activity User E-sign Co-sign Detail Recorded Client Recorded Date Recorded By Document 07/18/23 16:[address] [facility] Desktop 07/18/23 16:[address] 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 Yes Yes WC - Visit Discharge Discharge Condition Stable Stable Ambulatory Status Ambulatory Ambulatory, Walker Transportation Private Auto Private Auto Accompanied by Assessment/Plan Assessment/Plan (1) Chronic ulcer of right heel with fat layer exposed: CODE(S): L97.412 - Non-pressure chronic ulcer of right heel and midfoot with fat layer exposed PLAN: Patient was examined and evaluated. All findings were discussed with the patient. All questions were answered to the patient's satisfaction. The patient's right heel ulceration is now healed. Educated the patient to apply lotion and wear Tubigrip as well as his surgical shoe and follow-up in 1 week. Educated the patient continue strict blood sugar control. He is to watch all pressure to the right heel. The patient was understanding of this. Follow-up in 1 week. (2) Acute painful diabetic polyneuropathy: CODE(S): E11.42 - Type 2 diabetes mellitus with diabetic polyneuropathy
[2023-08-01 11:17] VITALS: BP 133/77; PULSE 79; RESP 18; TEMP 36.4; BMI 46.5
--- NOTE | 2023-08-01 11:39 | PCM.WC.PN ---
History of Present Illness Date of Service: 08/01/23 Chief Complaint: Right heel ulcer History of Wound: 67 year old male presents to the wound center for evaluation of his right heal ulcer. It started as a a pressure ulcer in February when he he was in TCU and it healed. It then became a blister right before his Left TKR surgery. He had his left knee replaced 07/14/22 at [facility]. 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 He also has a history of diabetes, HTN, lymphedema, hypercholesterolemia and PE that he is on Xerelto. He currently has home health. Wound culture obtained on 08/30/22 which are positive for VRE, Kocuria kristinae and Corynebacterium striatum. He will completed the Linezolid. Wound culture obtained 06/20/23 which was positive for Staphylococcus pseudintermediu, Pseudomonas aeruginosa, Corynebacterium minutissiumum, and Anaerobic cocci. He was started on Levaquin and Flagyl. Foot xray 09/27/22 - Osteopenia with diffuse osteoarthritic changes. Diffuse soft tissue swelling with ossification of the distal Achilles tendon. No acute abnormality or evidence of erosive changes. Wound care - He has been approved for Epicord and Epifix and has received 10 applications total. Magalis covered by ABD/gauze. He denies any fever, chills, nausea and vomiting. Subjective Subjective Mr. Spears is a 67-year-old diabetic male presenting for follow-up and evaluation of right heel wound. Patient has been doing home dressing changes provided by his . She admits his wound is healed. His blood sugar has been controlled. He denies trauma. Denies constitutional symptoms. No other pedal complaints at this time. Objective Data Objective Data Vital Signs: Vital Signs Temp Pulse Resp BP 97.6 F L 79 18 133/77 H 08/01/23 11:17 08/01/23 11:17 08/01/23 11:17 08/01/23 11:17 Weight: 155.582 kg Body Mass Index (BMI) 46.5 Physical Exam Narrative Neurovascular status is unchanged. Nonpitting edema appreciated to the right lower extremity. Evidence of full-thickness ulceration appreciated to the right heel is now healed with evidence of sanguinous crust.No evidence of erythema, proximal streaking, or sign of infection. No pain with calf compression. Debridement Note Debridement Note Post-Debridement Measurements and Additional Note: Post-Debridement Measurements/Treatment WC - Nurse 1 - General Ulcer Assessment Start: 07/18/23 14:58 Freq: Status: Active Protocol: LAM.[email or web address] Activity Type Activity Date Activity User E-sign Co-sign Detail Recorded Client Recorded Date Recorded By Document 07/18/23 14:59 DL Desktop 07/18/23 15:12 DL Document 07/25/23 14:31 DL Desktop 07/25/23 14:37 DL Document 08/01/23 11:17 PL Tablet 08/01/23 11:18 PL 07/18/23 07/25/23 08/01/23 14:59 14:31 11:17 - Today's Visit Information Type of service Follow-up Visit Follow-up Visit Follow-up Visit (Physician/LEAD SOFTWARE ARCHITECT (Physician/LEAD SOFTWARE ARCHITECT (Physician/LEAD SOFTWARE ARCHITECT ) ) ) Arrival Mode Ambulatory Ambulatory, Walker Walker Transfer Assistance None None None Patient Identification Verified (Name & Yes Yes No ) Patient Requires Transmission-Based No No No Precautions Finger Stick Blood Sugar(mg/dl) (if 180 indicated): Blood Sugar Stated by Patient Height and Weight Body Mass Index (BMI) 46.5 46.5 46.5 BMI Classification Obese Obese Obese Vital Signs Temperature (97.8 F-99.1 F) 97.2 F L 97.6 F L 97.6 F L Temperature Source Temporal Temporal Temporal Pulse Rate (60-100) 102 H 91 79 Pulse Location Monitor Monitor Respiratory Rate (12-18) 20 H 22 H 18 Respiratory rate source Observation Observation Blood Pressure (90/60-120/80) 172/88 H 150/87 H 133/77 H Blood Pressure Mean (mm Hg) 116 108 95 Source Monitor Monitor History Since Last Visit- (Skip if this is Patient's initial visit) Have you changed medications since your No No No last visit? Any new allergies or adverse reactions No No No Had a fall/change in ADL's that may No No No increase risk of falls Signs or symptoms of abuse and/or No No No neglect since last visit Have you been in the hospital since your No No No last visit? Has dressing in place as prescribed Yes Yes Yes Has compression in place as prescribed Yes Yes N/A Has offloadiing in place as prescribed Yes Yes N/A Experienced any changes in pain level or No No No management Right Footwear Total Contact Surgical Shoe Cast with pressure relief insole Pain Scale: 0-10 Numeric Is Patient Pain Free? Yes Yes Yes - Nurse 1 - General Ulcer Measurement Start: 07/18/23 14:58 Freq: Status: Active Protocol: Activity Type Activity Date Activity User E-sign Co-sign Detail Recorded Client Recorded Date Recorded By Document 07/18/23 14:59 Desktop 07/18/23 15:12 Document 07/25/23 14:31 DL Desktop 07/25/23 14:37 DL 07/18/23 07/25/23 14:59 14:31 Wound Center Nurse 1 #2- R HEEL -Current Size (cm) - Length 0.8 0.1 -Current Size (cm) - Width 0.3 0.1 -Current Size (cm) - Depth 0.1 0.1 -Total Square Cm 0.24 0.01 -Exudate Amt Small -Exudate Type Serosanguineous -Wound Margin Thickened -Granulation Amt Small (1-33%) None Present (0 %) -Granulation Quality [place] -Necrosis Amt Large (67-100%) None Present (0 %) -Necrotic Tissue Type Adherent Slough -Structure Exposed N/A N/A -Texture (Lianna-wound Skin Appearance) Scarring No Abnormality -Moisture (Lianna-wound Skin Appearance) No Abnormality No Abnormality -Color (Lianna-wound Skin Appearance) No Abnormality No Abnormality -Temperature (Lianna-wound Skin No Abnormality No Abnormality Appearance) (Pt Warm) (Pt Warm) -Tenderness on Palpation (Lianna-wound No Skin Appearance) -Ulcer Cleansing Soap and Water Soap and Water -Foul Odor after Cleansing No No -Anesthetic Used 5% Lidocaine 5% Lidocaine Gel Gel -Wound Comment(s) Magalis dried to ulcer today. Right Calf (cm) 47.2 Right Ankle (cm) 29.3 WC - Nurse 2 - General Ulcer CM Notes Start: 07/18/23 14:58 Freq: Status: Active Protocol: Activity Type Activity Date Activity User E-sign Co-sign Detail Recorded Client Recorded Date Recorded By Document 07/18/23 15:43 Laptop 07/18/23 15:52 Document 07/25/23 15:01 Desktop 12/13/23 15:02 07/18/23 07/25/23 15:43 15:01 Wound Center Nurse 2 #2- R HEEL -Time 15:43 -Correct Patient Yes No -Correct Side, Site, Position Yes No -Correct Procedure Yes No -Procedure Performed Yes No -Type of Procedure Debridement -Clinical Debridement Subcutaneous -Tissue Removed Subcutaneous -Post Debridement (cm) - Length 2.0 0 -Post Debridement (cm) - Width 0.7 0 -Post Debridement (cm) - Depth 0.2 0 -Total Square (Post) (cm) 1.40 0 -Area of Debridement (cm) - Length 2.0 0 -Area of Debridement (cm) - Width 0.7 0 -Total Square (Area) (cm) 1.40 0 -Tunneling No -Undermining/Tunneling No -Circular Undermining No -Wound/Ulcer Outcome Not Healed Healed- Epithelialized -Ulcer Cleansing Rinsed/ Irrigated with Saline -Foul Odor after Cleansing No -Bioengineered Tissue No -Bleeding Controlled with Pressure -Treatment Response Procedure Tolerated Well -Offloading Yes -Type of Offloading Surgical Shoe -Assistive Device(s) Walker -Debridement - Subq, 1st 20sq cm Yes Pain Scale: 0-10 Numeric Is Patient Pain Free? Yes Yes - Nurse 3 - General Ulcer D/C NN Start: 07/18/23 14:58 Freq: Status: Active Protocol: Activity Type Activity Date Activity User E-sign Co-sign Detail Recorded Client Recorded Date Recorded By Document 07/18/23 16:05 [facility] Desktop 07/18/23 16:05 [facility] Document 07/25/23 15:18 Desktop 07/25/23 15:19 07/18/23 07/25/23 16:05 15:18 Wound Care Center Nurse 3 #2- R HEEL -Ulcer Cleansing Rinsed/ Irrigated with Saline -Other Dressing magalis, No dressing betadine; drsg per kw television agent -Primary Dressing Covered/Secured with Dry Gauze & Roll Gauze, Secured with Tape Right -Tubular Bandage Double Layer Double Layer -Size of Tubigrip Used Size F Size E -Size E ($) 2 -Size F ($) 2 Treatment Response Procedure Tolerated Well Pain Scale: 0-10 Numeric Is Patient Pain Free? Yes Yes - Visit Discharge Discharge Condition Stable Stable Ambulatory Status Ambulatory Ambulatory, Walker Transportation Private Auto Private Auto Accompanied by Assessment/Plan Assessment/Plan (1) Chronic ulcer of right heel with fat layer exposed: CODE(S): L97.412 - Non-pressure chronic ulcer of right heel and midfoot with fat layer exposed PLAN: Patient was examined and evaluated. All findings were discussed with the patient. All questions answered to the patient's satisfaction. The patient's right heel is now healed. Patient continue to monitor his heel for any breakdown of skin. He is to continue strict blood sugar control since he is diabetic. He continue to wear the surgical shoe for the remainder of the month and then transition to diabetic shoes as tolerated. He is continue to apply lotion twice per day to keep the skin supple. Any issues with the wound reopening to the right heel he was to follow-up at the wound care center for evaluation. He can continue with Dr. Justus Dasilva for his palliative care. The patient to follow-up as needed. (2) Acute painful diabetic polyneuropathy: CODE(S): E11.42 - Type 2 diabetes mellitus with diabetic polyneuropathy
== END 2023-08-02 12:15 | disposition home or self-care (01) ==
LOC: WC 11:00
PROVIDERS: PCP Internal Medicine; Referring Provider Internal Medicine; Visit Provider Podiatrist Foot & Ankle Surgery
DX: L97.412 Non-pressure chronic ulcer of right heel and midfoot with fat layer exposed (principal); E11.42 Type 2 diabetes mellitus with diabetic polyneuropathy; Z79.4 Long term (current) use of insulin; I10 Essential (primary) hypertension; I89.0 Lymphedema, not elsewhere classified; E78.00 Pure hypercholesterolemia, unspecified; Z79.82 Long term (current) use of aspirin; Z79.01 Long term (current) use of anticoagulants; Z79.899 Other long term (current) drug therapy; Z86.711 Personal history of pulmonary embolism; Z96.652 Presence of left artificial knee joint
CPT/HCPCS: 11042; 99213; G0463

== ENCOUNTER → 2023-11-12 | Outpatient (CLI) | payer MEDICARE, BC, SELFPAY ==
[2023-11-12 18:46] LABS: Amphetamine Urine VISTA NEGATIVE (<1000 ng/mL); Barbiturate Urine VISTA NEGATIVE (< 200 ng/mL); Benzodiazepine Urine VISTA NEGATIVE (< 200 ng/mL); Cocaine Urine VISTA NEGATIVE (< 300 ng/mL); Ecstacy Urine VISTA NEGATIVE (< 500 ng/mL); Methadone Urine VISTA NEGATIVE (< 300 ng/mL); PCP Urine VISTA NEGATIVE (< 25 ng/mL); THC Urine VISTA NEGATIVE (< 50 ng/mL); Vista UDS pH Range 6
== END | disposition home or self-care (01) ==
PROVIDERS: PCP Internal Medicine; Referring Provider Anesthesiology Pain Medicine; Visit Provider Anesthesiology Pain Medicine
DX: F11.20 Opioid dependence, uncomplicated (principal)
CPT/HCPCS: 80307

== ENCOUNTER 2023-12-06 09:00 | Outpatient (RCR) | payer MEDICARE, BC, SELFPAY ==
[2023-11-15 10:32] VITALS: BP 163/89; PULSE 83; RESP 18; TEMP 36.6
--- NOTE | 2023-11-15 11:38 | HP.PCM_ITS ---
History of Present Illness Date of Service: 11/15/23 Chief Complaint: Right heel ulcer and right hallux ulcer History of Wound: 67 year old male presents to the wound center for evaluation of his right heal ulcer. It started as a a pressure ulcer in February 2022 when he he was in TCU and it healed. It then became a blister right before his Left TKR surgery. He had his left knee replaced 07/14/22 at [facility]. 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 He also has a history of diabetes type II with peripheral polyneuropathy, HTN, lymphedema, hypercholesterolemia and PE that he is on Xerelto. Wound culture obtained on 08/30/22 which are positive for VRE, Kocuria kristinae and Corynebacterium striatum. He will completed the Linezolid. Wound culture obtained 06/20/23 which was positive for Staphylococcus pseudintermediu, Pseudomonas aeruginosa, Corynebacterium minutissiumum, and Anaerobic cocci. He was started on Levaquin and Flagyl. Foot xray 09/27/22 - Osteopenia with diffuse osteoarthritic changes. Diffuse soft tissue swelling with ossification of the distal Achilles tendon. No acute abnormality or evidence of erosive changes. Did undergo updated radiograph of the right foot 11/08/2023 with no noted changes from previous x-ray. This is a recurring ulceration to both distal medial tuft of the right hallux and posterior lateral heel. He states both sites had scabbed up and he was previously discharged however scabs have later broken down with re-ulceration. Wound care -currently applying Joelle daily and is offloading and surgical shoe to the right foot. He denies any fever, chills, nausea and vomiting. Denies further complaints. [facility] Medical History BPH (benign prostatic hyperplasia) Diabetes mellitus Dyslipidemia Former tobacco use HTN (hypertension) Morbid obesity GRETCHEN treated with BiPAP VTE (venous thromboembolism) Home Medications atorvastatin 20 mg tablet 20 mg PO QHS cholesterol 08/27/15 [History Last Taken 02/21/22] furosemide 40 mg tablet 80 mg PO DAILY diuretic 08/27/15 [History Last Taken 02/22/22] rivaroxaban 20 mg tablet (Xarelto) 20 mg PO DINNER blood thinner 03/23/16 [History Last Taken 02/21/22] doxazosin 4 mg tablet 4 mg PO QHS blood pressure 04/03/20 [History Last Taken 02/21/22] insulin lispro 100 unit/mL subcutaneous pen 20 unit subcut BREAKFAST diabetes 02/23/22 [History Last Taken 02/22/22] insulin lispro 100 unit/mL subcutaneous pen 20 unit subcut LUNCH diabetes 02/23/22 [History Last Taken 02/22/22] gabapentin 600 mg tablet 600 mg PO TIDCM Nerve Pain 02/24/22 [History Last Taken Unknown] doxycycline hyclate 100 mg capsule 100 mg PO BID #60 caps 04/07/22 [Rx Last Taken Unknown] insulin glargine-yfgn 100 unit/mL (3 mL) subcutaneous pen 50 unit (0.5 mL) subcut QHS #0 mL 04/10/22 [Rx Last Taken Unknown] insulin lispro 100 unit/mL subcutaneous pen (Humalog KwikPen (U-100) Insulin) 20 unit (0.2 mL) subcut DINNER #0 mL 04/10/22 [Rx Last Taken Unknown] metoprolol tartrate 25 mg tablet 75 mg (3 x 25 mg) PO BID blood pressure 30 days #180 tabs 04/10/22 [Rx Last Taken Unknown] aspirin 81 mg capsule 81 mg PO DAILY 08/16/22 [History Last Taken Unknown] calcium carbonate 200 mg calcium (500 mg) chewable tablet (Tums) mg PO BID PRN Heartburn 08/16/22 [History Last Taken Unknown] dulaglutide 3 mg/0.5 mL subcutaneous pen injector (Trulicity) 3 mg subcut QWEEK 08/16/22 [History Last Taken Unknown] hydrocodone-acetaminophen 5-325mg 5mg-325mg 1 tab PO Q8H PRN Pain 08/16/22 [History Last Taken Unknown] tizanidine 2 mg tablet 4 mg PO TID PRN Back Pain 08/16/22 [History Last Taken Unknown] zinc 50 mg capsule 50 mg PO DAILY 08/16/22 [History Last Taken Unknown] nystatin 500,000 unit tablet 500,000 unit PO TID 14 days #42 tabs 10/04/22 [Rx Last Taken Unknown] nystatin 500,000 unit tablet 500,000 unit PO TID 14 days #42 tabs 10/19/22 [Rx Last Taken Unknown] Allergy/AdvReac Type Severity Reaction Status Date / Time Penicillins Allergy Unknown Hives Verified 11/15/23 10:21 erythromycin base AdvReac Nausea Verified 11/15/23 10:21 [Erythromycin Base] Family History Mother Diabetes Heart disease Coagulopathy Father Heart disease CVA (cerebral vascular accident) Parkinsons disease Surgical History History of total knee arthroplasty History of vascular surgery Hx of laminectomy Hx of total knee replacement Status post creation of pericardial window Social History household members: spouse Smoking Status: Former smoker how long ago did patient quit smoking: Quit 1994, smoked 1 ppd since age 15. alcohol intake: never substance use type: does not use ROS Constitutional Constitutional: Denies anorexia, change in weight, chills or fever(s) Eyes Eyes: Denies blurry vision, change in vision or double vision ENT HEENT: Denies dysphagia, nasal congestion or sore throat Cardiovascular Cardiovascular: Denies chest pain, claudication or palpitations Respiratory/Chest Respiratory/Chest: Denies cough, shortness of breath at rest or wheezing Gastrointestinal Gastrointestinal: Denies abdominal pain, constipation, diarrhea, nausea or vomiting Genitourinary Genitourinary: Denies dysuria, hematuria, urinary frequency or urinary urgency Musculoskeletal Musculoskeletal: Denies joint pain, joint stiffness or joint swelling Integumentary Integumentary: Denies lesions, pruritus or rash Neurologic Neurologic: Denies dizziness, numbness or seizures Psychiatric Psychiatric: Denies anxiety Endocrine Endocrinology: Denies cold intolerance or heat intolerance Hematologic/Lymphatic Hematologic/Lymphatic: Denies easy bleeding or easy bruising Vital Signs Vital Signs Vital Signs: 11/15/23 10:32 Temperature 97.9 F Temperature Source Temporal Pulse Rate 83 Respiratory Rate 18 Blood Pressure 163/89 H Blood Pressure Mean 113 Blood Pressure Source Monitor Blood Pressure Position Semi-Fowlers Blood Pressure Location Left Arm Oxygen Delivery Method Room Air Physical Exam Const alert, oriented x3 and no apparent distress General Appearance: cooperative HEENT normocephalic Eyes General Eye: normal appearance of both eyes Neck General: normal visual inspection Lymph Lymphatic: no lymphadenopathy noted and no lymphedema noted Resp normal respiratory effort Cardio regular rate and regular rhythm Extremity normal capillary refill, no joint enlargement, no calf tenderness and no pedal edema Extremity Narrative: Right lower extremity: Vascular: DP and PT pulses weakly palpable. CFT less than 5 seconds to the digits. Normal temperature gradient. Hair growth is absent to digits/foot. Neurologic: Gross sensation intact. Decreased light touch sensation. Absent protective sensation tested with 5.07g [place] Zen monofilament. Lack of protective sensation consistent with diabetic peripheral polyneuropathy Dermatologic: There is varicosities noted to the lower extremity with subsequent edema about foot and LIANNA ankle. There is hyperkeratosis of the distal hallux tuft with underlying ulceration with healthy granular tissue. There is a posterior lateral heel ulceration with mixed fibrogranular wound base and eschar at the wound margin. No signs of infection. Musculoskeletal: Muscle strength 5 of 5 age-appropriate. Decreased range of motion of the ankle joint in dorsiflexion with the knee extended without pain or crepitus. Decreased range of motion of the first metatarsophalangeal joint without pain or crepitus. There is hammertoe deformity of digits 1 through 5. Skin no rashes or lesions noted, skin turgor normal and no jaundice General Skin Exam: venous stasis and dermatitis Neuro moves all extremities Debridement Note Debridement Note Wound debrided: Right foot x 2 Laterality: Right Wound Grade/Stage: Gomez stage I Type of Debridement: Excisional debridement Anesthesia Used: 5% Lidocaine Gel Depth: Down to and including healthy tissue and in the subcutaneous layer Percentage of wound debrided: 100 Instrument Used: 5mm curette and #15 blade Tissue Removed: Fibrous, devitalized subcutaneous, biofilm, slough Severity: Fat Layer Exposed Amount of bleeding with debridement: Mild Bleeding Controlled with: Compression and gauze Patient tolerated procedure: Patient tolerated procedure well Post-Debridement Measurements and Additional Note: Post-Debridement Measurements/Treatment LAM - Nurse 1 - General Ulcer Assessment Start: 11/15/23 10:32 Freq: Status: Active Protocol: LAM.LOWEXT Activity Type Activity Date Activity User E-sign Co-sign Detail Recorded Client Recorded Date Recorded By Document 11/15/23 10:32 KW Desktop 11/15/23 10:34 KW 11/15/23 10:32 - Today's Visit Information Type of service Initial Visit Arrival Mode Ambulatory, Walker Accompanied by Patient Identification Verified (Name & Yes ) Vital Signs Temperature (97.8 F-99.1 F) 97.9 F Temperature Source Temporal Pulse Rate (60-100) 83 Pulse Location Monitor Respiratory Rate (12-18) 18 Respiratory rate source Observation Oxygen Delivery Method Room Air Blood Pressure (90/60-120/80) 163/89 H Blood Pressure Mean 113 Source Monitor Position Semi-Fowlers Blood Pressure Location Left Arm History Since Last Visit- (Skip if this is Patient's initial visit) Left Footwear Regular Shoe Right Footwear Regular Shoe Pain Scale: 0-10 Numeric Is Patient Pain Free? Yes - Nurse 1 - General Ulcer Measurement Start: 11/15/23 10:32 Freq: Status: Active Protocol: Activity Type Activity Date Activity User E-sign Co-sign Detail Recorded Client Recorded Date Recorded By Document 11/15/23 10:32 KW Desktop 11/15/23 10:34 KW 11/15/23 10:32 Wound Center Nurse 1 #4 RT GREAT TOE -Current Size (cm) - Length 1.1 -Current Size (cm) - Width 1 -Current Size (cm) - Depth 0.1 -Total Square Cm 1.1 -Exudate Amt Small -Exudate Type Serosanguineous -Wound Margin Distinct, Outline Attached -Necrosis Amt Large (67-100%) -Necrotic Tissue Type Adherent Slough -Texture (Lianna-wound Skin Appearance) Assessed -Moisture (Lianna-wound Skin Appearance) Assessed -Color (Lianna-wound Skin Appearance) Assessed -Temperature (Lianna-wound Skin No Abnormality Appearance) (Pt Warm) -Ulcer Cleansing Rinsed/ Irrigated with Saline -Anesthetic Used 5% Lidocaine Gel #3 RT HEEL -Current Size (cm) - Length 1.3 -Current Size (cm) - Width 3.5 -Current Size (cm) - Depth 0.1 -Total Square Cm 4.55 -Exudate Amt Medium -Exudate Type Serosanguineous -Wound Margin Distinct, Outline Attached -Texture (Lianna-wound Skin Appearance) Assessed -Moisture (Lianna-wound Skin Appearance) Assessed -Color (Lianna-wound Skin Appearance) Assessed -Temperature (Ilanna-wound Skin No Abnormality Appearance) (Pt Warm) -Tenderness on Palpation (Lianna-wound No Skin Appearance) -Ulcer Cleansing Rinsed/ Irrigated with Saline -Anesthetic Used 5% Lidocaine Gel WC - Nurse 2 - General Ulcer CM Notes Start: 11/15/23 10:32 Freq: Status: Active Protocol: Activity Type Activity Date Activity User E-sign Co-sign Detail Recorded Client Recorded Date Recorded By Document 11/15/23 11:01 [facility] Desktop 11/15/23 11:19 [facility] 11/15/23 11:01 Wound Center Nurse 2 #4 RT GREAT TOE -Time 11:01 -Correct Patient Yes -Correct Side, Site, Position Yes -Correct Procedure Yes -Procedure Performed Yes -Type of Procedure Debridement -Clinical Debridement Subcutaneous -Tissue Removed Subcutaneous -Post Debridement (cm) - Length 1.3 -Post Debridement (cm) - Width 1.5 -Post Debridement (cm) - Depth 0.1 -Total Square (Post) (cm) 1.95 -Area of Debridement (cm) - Length 1.3 -Area of Debridement (cm) - Width 1.5 -Total Square (Area) (cm) 1.95 -Tunneling No -Undermining/Tunneling No -Circular Undermining No -Wound/Ulcer Outcome Not Healed -Ulcer Cleansing Rinsed/ Irrigated with Saline -Foul Odor after Cleansing No -Bleeding Controlled with Pressure -Treatment Response Procedure Tolerated Well -Offloading No -Debridement - Subq, 1st 20sq cm Yes #3 RT HEEL -Time 11:04 -Correct Patient Yes -Correct Side, Site, Position Yes -Correct Procedure Yes -Procedure Performed Yes -Type of Procedure Debridement -Clinical Debridement Subcutaneous -Tissue Removed Subcutaneous -Post Debridement (cm) - Length 3 -Post Debridement (cm) - Width 3.5 -Post Debridement (cm) - Depth 0.2 -Total Square (Post) (cm) 10.5 -Area of Debridement (cm) - Length 3 -Area of Debridement (cm) - Width 3.5 -Total Square (Area) (cm) 10.5 -Tunneling No -Undermining/Tunneling No -Circular Undermining No -Wound/Ulcer Outcome Not Healed -Ulcer Cleansing Rinsed/ Irrigated with Saline -Foul Odor after Cleansing No -Bleeding Controlled with Pressure -Treatment Response Procedure Tolerated Well -Debridement - Subq, 1st 20sq cm No Pain Scale: 0-10 Numeric Is Patient Pain Free? Yes Assessment/Plan Assessment/Plan (1) Chronic ulcer of right heel with fat layer exposed: CODE(S): L97.412 - Non-pressure chronic ulcer of right heel and midfoot with fat layer exposed (2) Non-pressure chronic ulcer of other part of right foot with fat layer exposed: CODE(S): L97.512 - Non-pressure chronic ulcer of other part of right foot with fat layer exposed (3) Acute painful diabetic polyneuropathy: CODE(S): E11.42 - Type 2 diabetes mellitus with diabetic polyneuropathy (4) Type 2 diabetes mellitus with foot ulcer: CODE(S): E11.621 - Type 2 diabetes mellitus with foot ulcer; L97.509 - Non-pressure chronic ulcer of other part of unspecified foot with unspecified severity (5) Lower extremity edema: CODE(S): R60.0 - Localized edema (6) Hypertension: CODE(S): I10 - Essential (primary) hypertension (7) Debility: CODE(S): R53.81 - Other malaise PLAN: Plan Patient seen and evaluated Ulcerations debrided as noted in the clinical panel above. Right hallux distal tuft ulceration measures 1.3 cm x 1.5 cm x 0.1 cm and right posterior lateral heel ulceration measures 3.0 cm x 3.5 cm x 0.1 cm. No signs of infection. He had been previously applying Joelle daily to the wound base. However given no change in size from 1 week ago and ulcerations once seen in office change was made today to Dakin's wet-to-dry. He is to change dressing daily. Cultures were obtained in wound center today. Discussed pending culture results antibiotic course will be started due to previous recurring infections at these ulcerative sites. Awaiting culture results. Currently ulceration has reoccurred and current duration is 3 weeks of home/office treatment. Consideration given to advanced wound care product for application. Discussed continuing to offload right foot in surgical shoe. Recommended continued offloading while in bed with foam waffle boot. Patient was urged on this in the past however has not continued to offload while sleeping. Discussed continued wearing of Tubigrip compression stockings until ulcerations have healed at which time he will change to bilateral compression stocking. Discussed continuing to elevate feet at all times of rest for edema control. Discussed adequate protein intake to continue to aid in wound healing. Florentin supplementation was recommended. Discussed proper diabetic diet in addition to the stated above to ensure adequate wound healing. Patient states that his sugars have been up but not above 200. does state he does eat things that he should not though. Discussed signs and symptoms of infection. Discussed with the patient if he notices redness about the wound margins that continues to spread or moves up the leg, any purulent drainage from the wound site, increasing foul odor from the wound or if he experiences fever greater than 101 degree accompanied by nausea, vomiting, chills, that these are signs of a progressing infection and he should report to the ED for IV antibiotics and further evaluation. He and his voiced understanding of this today. The following work up and care recommendations were made: Dressing: Dakin's wet to dry. Change daily. Continue Tubigrip compression Wash: Soap and water Tissue growth optimization: Dakin's Offload: Elevating lower extremities at rest and Tubigrip compression. Offload with surgical shoe. Vascular: DP and PT pulses are weakly palpable with adequate capillary fill time. Do not feel that vascular status is affecting wound healing. Edema: Continue elevating lower extremities at all times of rest. Continue wearing Tubigrip compression stocking. Discussed eventual change to a standard prescription compression stocking once wounds have healed. Infection: No signs of infection. Wound cultures were taken given patient's prior history of recurrent bacterial infection at the sites. Pain: May take [id number] Tylenol for discomfort Host factors: DM type II with peripheral polyneuropathy, HTN, morbid obesity, lymphedema I answered all the patient's questions. To return to the wound healing center in 1 week or call sooner if the patient has any questions or concerns.
--- NOTE | 2023-11-16 12:15 | WC ---
4.4.24 RT GREAT TOE INITIAL
[2023-11-22 10:52] VITALS: BP 184/107; PULSE 81; RESP 20; TEMP 36.9
--- NOTE | 2023-11-22 11:34 | PN.PCM_ITS ---
History of Present Illness Date of Service: 11/22/23 Chief Complaint: Right heel ulcer and right hallux ulcer History of Wound: 67 year old male presents to the wound center for evaluation of his right heal ulcer. It started as a a pressure ulcer in February 2022 when he he was in TCU and it healed. It then became a blister right before his Left TKR surgery. He had his left knee replaced 07/14/22 at [facility]. 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 He also has a history of diabetes type II with peripheral polyneuropathy, HTN, lymphedema, hypercholesterolemia and PE that he is on Xerelto. Wound culture obtained on 08/30/22 which are positive for VRE, Kocuria kristinae and Corynebacterium striatum. He will completed the Linezolid. Wound culture obtained 06/20/23 which was positive for Staphylococcus pseudintermediu, Pseudomonas aeruginosa, Corynebacterium minutissiumum, and Anaerobic cocci. He was started on Levaquin and Flagyl. Foot xray 09/27/22 - Osteopenia with diffuse osteoarthritic changes. Diffuse soft tissue swelling with ossification of the distal Achilles tendon. No acute abnormality or evidence of erosive changes. Did undergo updated radiograph of the right foot 11/08/2023 with no noted changes from previous x-ray. This is a recurring ulceration to both distal medial tuft of the right hallux and posterior lateral heel. He states both sites had scabbed up and he was previously discharged however scabs have later broken down with re-ulceration. Wound care -currently applying Joelle daily and is offloading and surgical shoe to the right foot. He denies any fever, chills, nausea and vomiting. Denies further complaints. Subjective Subjective This is a 67-year-old male who presents to the wound care center for follow-up of right hallux distal tuft ulceration and right posterior lateral calcaneal ulceration. Patient does report history of recurring ulcerations of these 2 specific sites over the last several years. He is currently on doxycycline for his knee. states she is assisting in changing his dressings daily with the Dakin's. Denies constitutional symptoms. Denies further complaints. Objective Data Objective Data Vital Signs: Vital Signs Temp Pulse Resp BP O2 Del Method 98.5 F 81 20 H 184/107 H Room Air 11/22/23 10:52 11/22/23 10:52 11/22/23 10:52 11/22/23 10:52 11/15/23 10:32 Oxygen Delivery Method Room Air Lab / Micro Data Micro: Microbiology 11/15/23 11:05 Wound - Right Foot Gram Stain - Final 11/15/23 11:05 Wound - Right Foot Wound Culture - Final Staphylococcus pseudintermediu 11/15/23 11:05 Wound - Right Foot Anaerobic Culture - Final No anaerobic bacteria isolated. 11/15/23 11:05 Wound - Right Foot Gram Stain - Final 11/15/23 11:05 Wound - Right Foot Wound Culture - Final Staphylococcus aureus Staphylococcus simulans Corynebacterium minutissimum 11/15/23 11:05 Wound - Right Foot Anaerobic Culture - Final No anaerobic bacteria isolated. Physical Exam Const alert, oriented x3 and no apparent distress General Appearance: cooperative HEENT normocephalic Eyes General Eye: normal appearance of both eyes Neck General: normal visual inspection Lymph Lymphatic: no lymphadenopathy noted and no lymphedema noted Resp normal respiratory effort Cardio regular rate and regular rhythm Extremity normal capillary refill, no joint enlargement, no calf tenderness and no pedal edema Extremity Narrative: Right lower extremity: Vascular: DP and PT pulses weakly palpable. CFT less than 5 seconds to the digits. Normal temperature gradient. Hair growth is absent to digits/foot. Neurologic: Gross sensation intact. Decreased light touch sensation. Absent protective sensation tested with 5.07g [place] Zen monofilament. Lack of protective sensation consistent with diabetic peripheral polyneuropathy Dermatologic: There is varicosities noted to the lower extremity with subsequent edema about foot and LIANNA ankle. There is hyperkeratosis of the distal hallux tuft with underlying ulceration with healthy granular tissue. There is a posterior lateral heel ulceration with mixed fibrogranular wound base and eschar at the wound margin. No signs of infection. Musculoskeletal: Muscle strength 5 of 5 age-appropriate. Decreased range of motion of the ankle joint in dorsiflexion with the knee extended without pain or crepitus. Decreased range of motion of the first metatarsophalangeal joint without pain or crepitus. There is hammertoe deformity of digits 1 through 5. Skin no rashes or lesions noted, skin turgor normal and no jaundice General Skin Exam: venous stasis and dermatitis Neuro moves all extremities Debridement Note Debridement Note Wound debrided: Right foot x 2 Laterality: Right Wound Grade/Stage: Gomez stage I Type of Debridement: Excisional debridement Anesthesia Used: 5% Lidocaine Gel Depth: Down to and including healthy tissue and in the subcutaneous layer Percentage of wound debrided: 100 Instrument Used: 5mm curette Tissue Removed: Fibrous, devitalized subcutaneous, biofilm, slough Severity: Fat Layer Exposed Amount of bleeding with debridement: Mild Bleeding Controlled with: Compression and gauze Patient tolerated procedure: Patient tolerated procedure well Post-Debridement Measurements and Additional Note: Post-Debridement Measurements/Treatment - Nurse 1 - General Ulcer Assessment Start: 11/15/23 10:32 Freq: Status: Active Protocol: NELL Activity Type Activity Date Activity User E-sign Co-sign Detail Recorded Client Recorded Date Recorded By Document 11/15/23 10:32 KW Desktop 11/15/23 10:34 KW Document 11/22/23 10:52 DL Desktop 11/22/23 11:02 DL 11/15/23 11/22/23 10:32 10:52 - Today's Visit Information Type of service Initial Visit Follow-up Visit (Physician/PARKING ENFORCEMENT MANAGER ) Arrival Mode Ambulatory, Ambulatory, Walker Walker Transfer Assistance None Accompanied by Patient Identification Verified (Name & Yes Yes ) Patient Requires Transmission-Based No Precautions Finger Stick Blood Sugar(mg/dl) (if 142 indicated): Blood Sugar Stated by Patient Vital Signs Temperature (97.8 F-99.1 F) 97.9 F 98.5 F Temperature Source Temporal Temporal Pulse Rate (60-100) 83 81 Pulse Location Monitor Monitor Respiratory Rate (12-18) 18 20 H Respiratory rate source Observation Oxygen Delivery Method Room Air Blood Pressure (90/60-120/80) 163/89 H 184/107 H Blood Pressure Mean (mm Hg) 113 132 Source Monitor Monitor Position Semi-Fowlers Blood Pressure Location Left Arm History Since Last Visit- (Skip if this is Patient's initial visit) Have you changed medications since your No last visit? Any new allergies or adverse reactions No Had a fall/change in ADL's that may No increase risk of falls Signs or symptoms of abuse and/or No neglect since last visit Have you been in the hospital since your No last visit? Has dressing in place as prescribed Yes Has compression in place as prescribed Yes Has offloadiing in place as prescribed Yes Experienced any changes in pain level or No management Left Footwear Regular Shoe Right Footwear Regular Shoe Pain Scale: 0-10 Numeric Is Patient Pain Free? Yes Yes WC - Nurse 1 - General Ulcer Measurement Start: 11/15/23 10:32 Freq: Status: Active Protocol: Activity Type Activity Date Activity User E-sign Co-sign Detail Recorded Client Recorded Date Recorded By Document 11/15/23 10:32 KW Desktop 11/15/23 10:34 KW Document 11/22/23 10:52 DL Desktop 11/22/23 11:02 DL 11/15/23 11/22/23 10:32 10:52 Wound Center Nurse 1 #4 RT GREAT TOE -Current Size (cm) - Length 1.1 0.1 -Current Size (cm) - Width 1 0.1 -Current Size (cm) - Depth 0.1 0.1 -Total Square Cm 1.1 0.01 -Exudate Amt Small Small -Exudate Type Serosanguineous Serosanguineous -Wound Margin Distinct, Thickened Outline Attached -Granulation Amt Small (1-33%) -Granulation Quality Shidler -Necrosis Amt Large (67-100%) Large (67-100%) -Necrotic Tissue Type Adherent Slough Adherent Slough -Structure Exposed N/A -Texture (Lianna-wound Skin Appearance) Assessed Localized Edema ,Scarring -Moisture (Lianna-wound Skin Appearance) Assessed No Abnormality -Color (Lianna-wound Skin Appearance) Assessed Erythema -Temperature (Lianna-wound Skin No Abnormality No Abnormality Appearance) (Pt Warm) (Pt Warm) -Ulcer Cleansing Rinsed/ Soap and Water Irrigated with Saline -Foul Odor after Cleansing No -Anesthetic Used 5% Lidocaine 5% Lidocaine Gel Gel #3 RT HEEL -Current Size (cm) - Length 1.3 1.8 -Current Size (cm) - Width 3.5 1 -Current Size (cm) - Depth 0.1 0.2 -Total Square Cm 4.55 1.8 -Exudate Amt Medium Medium -Exudate Type Serosanguineous Serosanguineous -Wound Margin Distinct, Thickened Outline Attached -Granulation Amt Medium (34-66%) -Granulation Quality Shidler -Necrosis Amt Medium (34-66%) -Necrotic Tissue Type Adherent Slough -Structure Exposed N/A -Texture (Lianna-wound Skin Appearance) Assessed Scarring -Moisture (Lianna-wound Skin Appearance) Assessed Maceration -Color (Lianna-wound Skin Appearance) Assessed Hemosiderin Staining -Temperature (Lianna-wound Skin No Abnormality No Abnormality Appearance) (Pt Warm) (Pt Warm) -Tenderness on Palpation (Lianna-wound No Skin Appearance) -Ulcer Cleansing Rinsed/ Soap and Water Irrigated with Saline -Foul Odor after Cleansing No -Anesthetic Used 5% Lidocaine 5% Lidocaine Gel Gel Right Calf (cm) 46 Right Ankle (cm) 28 WC - Nurse 2 - General Ulcer CM Notes Start: 11/15/23 10:32 Freq: Status: Active Protocol: Activity Type Activity Date Activity User E-sign Co-sign Detail Recorded Client Recorded Date Recorded By Document 11/15/23 11:01 [facility] Desktop 11/15/23 11:19 BMF Document 11/22/23 11:07 [facility] Desktop 11/22/23 11:21 F 11/15/23 11/22/23 11:01 11:07 Wound Center Nurse 2 #4 RT GREAT TOE -Time 11:01 11:08 -Correct Patient Yes Yes -Correct Side, Site, Position Yes Yes -Correct Procedure Yes Yes -Procedure Performed Yes Yes -Type of Procedure Debridement Debridement -Clinical Debridement Subcutaneous Subcutaneous -Tissue Removed Subcutaneous Subcutaneous -Post Debridement (cm) - Length 1.3 1 -Post Debridement (cm) - Width 1.5 2 -Post Debridement (cm) - Depth 0.1 0.1 -Total Square (Post) (cm) 1.95 2 -Area of Debridement (cm) - Length 1.3 1 -Area of Debridement (cm) - Width 1.5 2 -Total Square (Area) (cm) 1.95 2 -Tunneling No No -Undermining/Tunneling No No -Circular Undermining No No -Wound/Ulcer Outcome Not Healed Not Healed -Ulcer Cleansing Rinsed/ Rinsed/ Irrigated with Irrigated with Saline Saline -Foul Odor after Cleansing No No -Bioengineered Tissue No -Bleeding Controlled with Pressure Pressure -Treatment Response Procedure Procedure Tolerated Well Tolerated Well -Offloading No Yes -Type of Offloading Surgical Shoe -Debridement - Subq, 1st 20sq cm Yes No #3 RT HEEL -Time 11:04 11:09 -Correct Patient Yes Yes -Correct Side, Site, Position Yes Yes -Correct Procedure Yes Yes -Procedure Performed Yes Yes -Type of Procedure Debridement Debridement -Clinical Debridement Subcutaneous Subcutaneous -Tissue Removed Subcutaneous Subcutaneous -Post Debridement (cm) - Length 3 2.9 -Post Debridement (cm) - Width 3.5 3.6 -Post Debridement (cm) - Depth 0.2 0.1 -Total Square (Post) (cm) 10.5 10.44 -Area of Debridement (cm) - Length 3 2.9 -Area of Debridement (cm) - Width 3.5 3.6 -Total Square (Area) (cm) 10.5 10.44 -Tunneling No No -Undermining/Tunneling No No -Circular Undermining No No -Wound/Ulcer Outcome Not Healed Not Healed -Ulcer Cleansing Rinsed/ Rinsed/ Irrigated with Irrigated with Saline Saline -Foul Odor after Cleansing No No -Bioengineered Tissue No -Bleeding Controlled with Pressure Pressure -Treatment Response Procedure Procedure Tolerated Well Tolerated Well -Offloading Yes -Type of Offloading Surgical Shoe -Debridement - Subq, 1st 20sq cm No Yes Pain Scale: 0-10 Numeric Is Patient Pain Free? Yes Yes - Nurse 3 - General Ulcer D/C NN Start: 11/15/23 10:32 Freq: Status: Active Protocol: Activity Type Activity Date Activity User E-sign Co-sign Detail Recorded Client Recorded Date Recorded By Document 11/15/23 11:37 DL Desktop 11/15/23 11:39 DL 11/15/23 11:37 Wound Care Center Nurse 3 #4 RT GREAT TOE -Foul Odor after Cleansing No -Primary Dressing Applied C Hydrogel ($), Hysept ($) -Primary Dressing Covered/Secured with Dry Gauze & Roll Gauze, Secured with Tape -Other Covering ABD #3 RT HEEL -Ulcer Cleansing Rinsed/ Irrigated with Saline -Foul Odor after Cleansing No -Other Dressing dakins -Primary Dressing Covered/Secured with Dry Gauze & Roll Gauze, Secured with Tape Right -Tubular Bandage Single Layer -Size of Tubigrip Used Size E -Size E ($) 1 Treatment Response Procedure Tolerated Well Pain Scale: 0-10 Numeric Is Patient Pain Free? Yes - Visit Discharge Discharge Condition Stable Ambulatory Status Ambulatory, Walker Transportation Private Auto Assessment/Plan Assessment/Plan (1) Chronic ulcer of right heel with fat layer exposed: CODE(S): L97.412 - Non-pressure chronic ulcer of right heel and midfoot with fat layer exposed (2) Non-pressure chronic ulcer of other part of right foot with fat layer exposed: CODE(S): L97.512 - Non-pressure chronic ulcer of other part of right foot with fat layer exposed (3) Acute painful diabetic polyneuropathy: CODE(S): E11.42 - Type 2 diabetes mellitus with diabetic polyneuropathy (4) Type 2 diabetes mellitus with foot ulcer: CODE(S): E11.621 - Type 2 diabetes mellitus with foot ulcer; L97.509 - Non-pressure chronic ulcer of other part of unspecified foot with unspecified severity (5) Lower extremity edema: CODE(S): R60.0 - Localized edema (6) Hypertension: CODE(S): I10 - Essential (primary) hypertension (7) Debility: CODE(S): R53.81 - Other malaise PLAN: Plan Patient seen and evaluated Ulcerations debrided as noted in the clinical panel above. Right hallux distal tuft ulceration measures 1.0 cm x 2.0 cm x 0.1 cm and right posterior lateral heel ulceration measures 2.9 cm x 3.6 cm x 0.1 cm. No signs of infection. He had been previously applying Joelle daily to the wound base. Switch was made to Dakin's wet-to-dry. He is to change dressing daily. Ulcerations demonstrate little progress versus previous visit. Cultures were obtained in wound center for 11/15/2023. Culture of right hallux demonstrates Staph aureus, staph simulans, corynebacterium minutissimum; culture right heel demonstrates Staphylococcus psuedintermediu. Will start clindamycin 150 mg 3 times daily stop date 12/06/2023. Ulceration has reoccurred and current duration is 4 weeks of home/office/wound care center treatment. Consideration given to advanced wound care product for application, Epifix. Discussed continuing to offload right foot in surgical shoe. Recommended continued offloading while in bed with foam waffle boot. Patient was urged on this in the past however has not continued to offload while sleeping. Discussed continued wearing of Tubigrip compression stockings until ulcerations have healed at which time he will change to bilateral compression stocking. Discussed continuing to elevate feet at all times of rest for edema control. Discussed adequate protein intake to continue to aid in wound healing. Florentin supplementation was recommended. Discussed proper diabetic diet in addition to the stated above to ensure adequate wound healing. Patient states that his sugars have been up but not above 200. does state he does eat things that he should not though. Discussed signs and symptoms of infection. Discussed with the patient if he notices redness about the wound margins that continues to spread or moves up the leg, any purulent drainage from the wound site, increasing foul odor from the wound or if he experiences fever greater than 101 degree accompanied by nausea, vomiting, chills, that these are signs of a progressing infection and he should report to the ED for IV antibiotics and further evaluation. He and his voiced understanding of this today. The following work up and care recommendations were made: Dressing: Dakin's wet to dry. Change daily. Continue Tubigrip compression Wash: Soap and water Tissue growth optimization: Dakin's Offload: Elevating lower extremities at rest and Tubigrip compression. Offload with surgical shoe. Vascular: DP and PT pulses are weakly palpable with adequate capillary fill time. Do not feel that vascular status is affecting wound healing. Edema: Continue elevating lower extremities at all times of rest. Continue wearing Tubigrip compression stocking. Discussed eventual change to a standard prescription compression stocking once wounds have healed. Infection: No signs of infection. Wound cultures were taken given patient's prior history of recurrent bacterial infection at the sites. Pain: May take [id number] Tylenol for discomfort Host factors: DM type II with peripheral polyneuropathy, HTN, morbid obesity, lymphedema I answered all the patient's questions. To return to the wound healing center in 1 week or call sooner if the patient has any questions or concerns.
[2023-11-29 10:36] VITALS: BP 161/88; PULSE 79; RESP 20; TEMP 36.5
--- NOTE | 2023-11-29 12:44 | PCM.WC.PN ---
History of Present Illness Date of Service: 11/29/23 Chief Complaint: Right heel ulcer and right hallux ulcer History of Wound: 67 year old male presents to the wound center for evaluation of his right heal ulcer. It started as a a pressure ulcer in February 2022 when he he was in TCU and it healed. It then became a blister right before his Left TKR surgery. He had his left knee replaced 07/14/22 at [facility]. 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 He also has a history of diabetes type II with peripheral polyneuropathy, HTN, lymphedema, hypercholesterolemia and PE that he is on Xerelto. Wound culture obtained on 08/30/22 which are positive for VRE, Kocuria kristinae and Corynebacterium striatum. He will completed the Linezolid. Wound culture obtained 06/20/23 which was positive for Staphylococcus pseudintermediu, Pseudomonas aeruginosa, Corynebacterium minutissiumum, and Anaerobic cocci. He was started on Levaquin and Flagyl. Foot xray 09/27/22 - Osteopenia with diffuse osteoarthritic changes. Diffuse soft tissue swelling with ossification of the distal Achilles tendon. No acute abnormality or evidence of erosive changes. Did undergo updated radiograph of the right foot 11/08/2023 with no noted changes from previous x-ray. This is a recurring ulceration to both distal medial tuft of the right hallux and posterior lateral heel. He states both sites had scabbed up and he was previously discharged however scabs have later broken down with re-ulceration. Wound care -currently applying Joelle daily and is offloading and surgical shoe to the right foot. He denies any fever, chills, nausea and vomiting. Denies further complaints. Subjective Subjective This is a 67-year-old male who presents to the wound care center for follow-up of right hallux distal tuft ulceration and right posterior lateral calcaneal ulceration. Patient does report history of recurring ulcerations of these 2 specific sites over the last several years. He is currently on doxycycline for his knee. states she is assisting in changing his dressings daily with the Dakin's. He is also taking Clindamycin for positive wound cultures. Denies constitutional symptoms. Denies further complaints. Objective Data Objective Data Vital Signs: Vital Signs Temp Pulse Resp BP O2 Del Method 97.7 F L 79 20 H 161/88 H Room Air 11/29/23 10:36 11/29/23 10:36 11/29/23 10:36 11/29/23 10:36 11/15/23 10:32 Oxygen Delivery Method Room Air Lab / Micro Data Micro: Microbiology 11/15/23 11:05 Wound - Right Foot Gram Stain - Final 11/15/23 11:05 Wound - Right Foot Wound Culture - Final Staphylococcus pseudintermediu 11/15/23 11:05 Wound - Right Foot Anaerobic Culture - Final No anaerobic bacteria isolated. 11/15/23 11:05 Wound - Right Foot Gram Stain - Final 11/15/23 11:05 Wound - Right Foot Wound Culture - Final Staphylococcus aureus Staphylococcus simulans Corynebacterium minutissimum 11/15/23 11:05 Wound - Right Foot Anaerobic Culture - Final No anaerobic bacteria isolated. Physical Exam Const alert, oriented x3 and no apparent distress General Appearance: cooperative HEENT normocephalic Eyes General Eye: normal appearance of both eyes Neck General: normal visual inspection Lymph Lymphatic: no lymphadenopathy noted and no lymphedema noted Resp normal respiratory effort Cardio regular rate and regular rhythm Extremity normal capillary refill, no joint enlargement, no calf tenderness and no pedal edema Extremity Narrative: Right lower extremity: Vascular: DP and PT pulses weakly palpable. CFT less than 5 seconds to the digits. Normal temperature gradient. Hair growth is absent to digits/foot. Neurologic: Gross sensation intact. Decreased light touch sensation. Absent protective sensation tested with 5.07g [place] Zen monofilament. Lack of protective sensation consistent with diabetic peripheral polyneuropathy Dermatologic: There is varicosities noted to the lower extremity with subsequent edema about foot and LIANNA ankle. There is hyperkeratosis of the distal hallux tuft rim with ulceration with healthy granular tissue. There is a posterior lateral heel ulceration with mixed fibrogranular wound base and eschar/hyperkeratosis at the wound margin. No signs of infection. Musculoskeletal: Muscle strength 5 of 5 age-appropriate. Decreased range of motion of the ankle joint in dorsiflexion with the knee extended without pain or crepitus. Decreased range of motion of the first metatarsophalangeal joint without pain or crepitus. There is hammertoe deformity of digits 1 through 5. Skin no rashes or lesions noted, skin turgor normal and no jaundice General Skin Exam: venous stasis and dermatitis Neuro moves all extremities Debridement Note Debridement Note Wound debrided: Right foot x 2 Laterality: Right Wound Grade/Stage: Gomez stage I Type of Debridement: Excisional debridement Anesthesia Used: 5% Lidocaine Gel Depth: Down to and including healthy tissue and in the subcutaneous layer Percentage of wound debrided: 100 Instrument Used: 5mm curette and #15 blade Tissue Removed: Fibrous, devitalized subcutaneous, biofilm, slough Severity: Fat Layer Exposed Amount of bleeding with debridement: Mild Bleeding Controlled with: Compression and gauze Patient tolerated procedure: Patient tolerated procedure well Post-Debridement Measurements and Additional Note: Post-Debridement Measurements/Treatment - Nurse 1 - General Ulcer Assessment Start: 11/15/23 10:32 Freq: Status: Active Protocol: NELL Activity Type Activity Date Activity User E-sign Co-sign Detail Recorded Client Recorded Date Recorded By Document 11/15/23 10:32 KW [employer] 11/15/23 10:34 KW Document 11/22/23 10:52 DL Desktop 11/22/23 11:02 DL Document 11/29/23 10:36 DL Desktop 11/29/23 10:48 DL 11/15/23 11/22/23 11/29/23 10:32 10:52 10:36 - Today's Visit Information Type of service Initial Visit Follow-up Visit Follow-up Visit (Physician/MANAGER WASTEWATER (Physician/MANAGER WASTEWATER ) ) Arrival Mode Ambulatory, Ambulatory, Ambulatory, Walker Walker Walker Transfer Assistance None None Accompanied by Patient Identification Verified (Name & Yes Yes Yes ) Patient Requires Transmission-Based No No Precautions Finger Stick Blood Sugar(mg/dl) (if 142 113 indicated): Blood Sugar Stated by Stated by Patient Patient Vital Signs Temperature (97.8 F-99.1 F) 97.9 F 98.5 F 97.7 F L Temperature Source Temporal Temporal Temporal Pulse Rate (60-100) 83 81 79 Pulse Location Monitor Monitor Monitor Respiratory Rate (12-18) 18 20 H 20 H Respiratory rate source Observation Observation Oxygen Delivery Method Room Air Blood Pressure (90/60-120/80) 163/89 H 184/107 H 161/88 H Blood Pressure Mean (mm Hg) 113 132 112 Source Monitor Monitor Monitor Position Semi-Fowlers Blood Pressure Location Left Arm History Since Last Visit- (Skip if this is Patient's initial visit) Have you changed medications since your No No last visit? Any new allergies or adverse reactions No No Had a fall/change in ADL's that may No No increase risk of falls Signs or symptoms of abuse and/or No No neglect since last visit Have you been in the hospital since your No No last visit? Has dressing in place as prescribed Yes Yes Has compression in place as prescribed Yes Yes Has offloadiing in place as prescribed Yes Yes Experienced any changes in pain level or No No management Left Footwear Regular Shoe Surgical Shoe with pressure relief insole Right Footwear Regular Shoe Surgical Shoe with pressure relief insole Pain Scale: 0-10 Numeric Is Patient Pain Free? Yes Yes Yes WC - Nurse 1 - General Ulcer Measurement Start: 11/15/23 10:32 Freq: Status: Active Protocol: Activity Type Activity Date Activity User E-sign Co-sign Detail Recorded Client Recorded Date Recorded By Document 11/15/23 10:32 KW [employer] 11/15/23 10:34 KW Document 11/22/23 10:52 DL Desktop 11/22/23 11:02 DL Document 11/29/23 10:36 DL Desktop 11/29/23 10:48 DL 11/15/23 11/22/23 11/29/23 10:32 10:52 10:36 Wound Center Nurse 1 #4 RT GREAT TOE -Current Size (cm) - Length 1.1 0.1 0.9 -Current Size (cm) - Width 1 0.1 1.1 -Current Size (cm) - Depth 0.1 0.1 0.1 -Total Square Cm 1.1 0.01 0.99 -Exudate Amt Small Small Medium -Exudate Type Serosanguineous Serosanguineous Serosanguineous -Wound Margin Distinct, Thickened Distinct, Outline Outline Attached Attached -Granulation Amt Small (1-33%) Large (67-100%) -Granulation Quality [place] Red -Necrosis Amt Large (67-100%) Large (67-100%) Small (1-33%) -Necrotic Tissue Type Adherent Slough Adherent Slough Adherent Slough -Structure Exposed N/A N/A -Texture (Lianna-wound Skin Appearance) Assessed Localized Edema Callus,Scarring ,Scarring -Moisture (Lianna-wound Skin Appearance) Assessed No Abnormality Dry/Scaly -Color (Lianna-wound Skin Appearance) Assessed Erythema Hemosiderin Staining -Temperature (Lianna-wound Skin No Abnormality No Abnormality No Abnormality Appearance) (Pt Warm) (Pt Warm) (Pt Warm) -Tenderness on Palpation (Lianna-wound No Skin Appearance) -Ulcer Cleansing Rinsed/ Soap and Water Soap and Water Irrigated with Saline -Foul Odor after Cleansing No No -Anesthetic Used 5% Lidocaine 5% Lidocaine 5% Lidocaine Gel Gel Gel #3 RT HEEL -Current Size (cm) - Length 1.3 1.8 2.6 -Current Size (cm) - Width 3.5 1 0.6 -Current Size (cm) - Depth 0.1 0.2 0.1 -Total Square Cm 4.55 1.8 1.56 -Exudate Amt Medium Medium Medium -Exudate Type Serosanguineous Serosanguineous Serosanguineous -Wound Margin Distinct, Thickened Distinct, Outline Outline Attached Attached -Granulation Amt Medium (34-66%) Medium (34-66%) -Granulation Quality [place] Pale,[place] -Necrosis Amt Medium (34-66%) Medium (34-66%) -Necrotic Tissue Type Adherent Slough Adherent Slough -Structure Exposed N/A N/A -Texture (Lianna-wound Skin Appearance) Assessed Scarring Scarring -Moisture (Lianna-wound Skin Appearance) Assessed Maceration Dry/Scaly -Color (Lianna-wound Skin Appearance) Assessed Hemosiderin Hemosiderin Staining Staining -Temperature (Lianna-wound Skin No Abnormality No Abnormality No Abnormality Appearance) (Pt Warm) (Pt Warm) (Pt Warm) -Tenderness on Palpation (Lianna-wound No No Skin Appearance) -Ulcer Cleansing Rinsed/ Soap and Water Soap and Water Irrigated with Saline -Foul Odor after Cleansing No No -Anesthetic Used 5% Lidocaine 5% Lidocaine 5% Lidocaine Gel Gel Gel Right Calf (cm) 46 47 Right Ankle (cm) 28 29.5 WC - Nurse 2 - General Ulcer CM Notes Start: 11/15/23 10:32 Freq: Status: Active Protocol: Activity Type Activity Date Activity User E-sign Co-sign Detail Recorded Client Recorded Date Recorded By Document 11/15/23 11:01 [facility] Desktop 11/15/23 11:19 BMF Document 11/22/23 11:07 [facility] Desktop 11/22/23 11:21 [facility] Document 11/29/23 11:01 [facility] Desktop 11/29/23 11:18 F 11/15/23 11/22/23 11/29/23 11:01 11:07 11:01 Wound Center Nurse 2 #4 RT GREAT TOE -Time 11:01 11:08 11:01 -Correct Patient Yes Yes Yes -Correct Side, Site, Position Yes Yes Yes -Correct Procedure Yes Yes Yes -Procedure Performed Yes Yes Yes -Type of Procedure Debridement Debridement Debridement -Clinical Debridement Subcutaneous Subcutaneous Subcutaneous -Tissue Removed Subcutaneous Subcutaneous Subcutaneous -Post Debridement (cm) - Length 1.3 1 1 -Post Debridement (cm) - Width 1.5 2 1 -Post Debridement (cm) - Depth 0.1 0.1 0.1 -Total Square (Post) (cm) 1.95 2 1 -Area of Debridement (cm) - Length 1.3 1 1 -Area of Debridement (cm) - Width 1.5 2 1 -Total Square (Area) (cm) 1.95 2 1 -Tunneling No No No -Undermining/Tunneling No No No -Circular Undermining No No No -Wound/Ulcer Outcome Not Healed Not Healed Not Healed -Ulcer Cleansing Rinsed/ Rinsed/ Rinsed/ Irrigated with Irrigated with Irrigated with Saline Saline Saline -Foul Odor after Cleansing No No No -Bioengineered Tissue No No -Bleeding Controlled with Pressure Pressure Pressure -Treatment Response Procedure Procedure Procedure Tolerated Well Tolerated Well Tolerated Well -Offloading No Yes Yes -Type of Offloading Surgical Shoe Surgical Shoe -Debridement - Subq, 1st 20sq cm Yes No Yes #3 RT HEEL -Time 11:04 11:09 11:03 -Correct Patient Yes Yes Yes -Correct Side, Site, Position Yes Yes Yes -Correct Procedure Yes Yes Yes -Procedure Performed Yes Yes Yes -Type of Procedure Debridement Debridement Debridement -Clinical Debridement Subcutaneous Subcutaneous Subcutaneous -Tissue Removed Subcutaneous Subcutaneous Subcutaneous -Post Debridement (cm) - Length 3 2.9 3.5 -Post Debridement (cm) - Width 3.5 3.6 2.7 -Post Debridement (cm) - Depth 0.2 0.1 0.1 -Total Square (Post) (cm) 10.5 10.44 9.45 -Area of Debridement (cm) - Length 3 2.9 3.5 -Area of Debridement (cm) - Width 3.5 3.6 2.7 -Total Square (Area) (cm) 10.5 10.44 9.45 -Tunneling No No No -Undermining/Tunneling No No No -Circular Undermining No No No -Wound/Ulcer Outcome Not Healed Not Healed Not Healed -Ulcer Cleansing Rinsed/ Rinsed/ Rinsed/ Irrigated with Irrigated with Irrigated with Saline Saline Saline -Foul Odor after Cleansing No No No -Bioengineered Tissue No Yes -Type of Bioengineered Tissue Epifix Mesh -Expiration Date 06/13/28 -Product Lot Number [id number] -Percent Used 100 -Lot number of Saline Used [id number] -Bleeding Controlled with Pressure Pressure Pressure -Treatment Response Procedure Procedure Procedure Tolerated Well Tolerated Well Tolerated Well -Offloading Yes Yes -Type of Offloading Surgical Shoe Surgical Shoe -Debridement - Subq, 1st 20sq cm No Yes No -Apply Skin Sub - 1st 25 sq cm - Feet 1 -Epifix Mesh (per sq cm) 11 Pain Scale: 0-10 Numeric Is Patient Pain Free? Yes Yes Yes WC - Nurse 3 - General Ulcer D/C NN Start: 11/15/23 10:32 Freq: Status: Active Protocol: Activity Type Activity Date Activity User E-sign Co-sign Detail Recorded Client Recorded Date Recorded By Document 11/15/23 11:37 DL Desktop 11/15/23 11:39 DL Document 11/22/23 11:52 CP Desktop 11/22/23 11:54 CP Document 11/29/23 11:42 ML Desktop 11/29/23 11:44 ML 11/15/23 11/22/23 11/29/23 11:37 11:52 11:42 Wound Care Center Nurse 3 #4 RT GREAT TOE -Ulcer Cleansing Rinsed/ Irrigated with Saline -Foul Odor after Cleansing No No -Primary Dressing Applied C Hydrogel ($), Hysept ($) -Other Dressing dkins gauze, gauze, abd, kerix -Primary Dressing Covered/Secured with Dry Gauze & Secured with Dry Gauze, Roll Gauze, Tape Secured with Secured with Tape Tape -Other Covering ABD #3 RT HEEL -Ulcer Cleansing Rinsed/ Rinsed/ Irrigated with Irrigated with Saline Saline -Foul Odor after Cleansing No No -Other Dressing dakins dakins gauze, abd, kerlix, tape -Primary Dressing Covered/Secured with Dry Gauze & Dry Gauze & Roll Gauze, Roll Gauze Secured with Tape -Wound Comment(s) nurses hat to R heel, cont. Dakin's to R Great toe Right -Tubular Bandage Single Layer Single Layer -Size of Tubigrip Used Size E Size F -Size E ($) 1 -Size F ($) 1 Treatment Response Procedure Procedure Tolerated Well Tolerated Well Pain Scale: 0-10 Numeric Is Patient Pain Free? Yes Yes Yes WC - Visit Discharge Discharge Condition Stable Stable Ambulatory Status Ambulatory, Ambulatory, Walker Walker Transportation Private Auto Private Auto Medication Reconcilliation completed & No provided to patient/care provider Clinical Summary of Care Provided Yes Assessment/Plan Assessment/Plan (1) Chronic ulcer of right heel with fat layer exposed: CODE(S): L97.412 - Non-pressure chronic ulcer of right heel and midfoot with fat layer exposed (2) Non-pressure chronic ulcer of other part of right foot with fat layer exposed: CODE(S): L97.512 - Non-pressure chronic ulcer of other part of right foot with fat layer exposed (3) Acute painful diabetic polyneuropathy: CODE(S): E11.42 - Type 2 diabetes mellitus with diabetic polyneuropathy (4) Type 2 diabetes mellitus with foot ulcer: CODE(S): E11.621 - Type 2 diabetes mellitus with foot ulcer; L97.509 - Non-pressure chronic ulcer of other part of unspecified foot with unspecified severity (5) Lower extremity edema: CODE(S): R60.0 - Localized edema (6) Hypertension: CODE(S): I10 - Essential (primary) hypertension (7) Debility: CODE(S): R53.81 - Other malaise PLAN: Plan Patient seen and evaluated Ulcerations debrided as noted in the clinical panel above. Right hallux distal tuft ulceration measures 1.0 cm x 1.0 cm x 0.1 cm and right posterior lateral heel ulceration measures 3.5 cm x 2.7 cm x 0.1 cm. No signs of infection. Dakin's wet-to-dry to the Right Hallux. He is to change dressing daily. EpiFix graft #1 was applied to the right heel and dressed with wound veil and anchored with Steri-Strips and dressed with dry sterile dressing/nurse hat. Ulcerations demonstrate some reduction in size versus previous visit. Cultures were obtained in wound center for 11/15/2023. Culture of right hallux demonstrates Staph aureus, staph simulans, corynebacterium minutissimum; culture right heel demonstrates Staphylococcus psuedintermediu. Will continue clindamycin 150 mg 3 times daily stop date 12/06/2023. Ulceration has reoccurred and current duration is 5 weeks of home/office/wound care center treatment. Consideration given to advanced wound care product for application, Epifix. He was approved for EpiFix graft and we will continue to apply. Discussed continuing to offload right foot in surgical shoe. Recommended continued offloading while in bed with foam waffle boot. Patient was urged on this in the past however has not continued to offload while sleeping. He states that offloading is difficult at night with the waffle boot, discussed ensuring the boot is strapped on properly so that does not come off at night. If this remains a difficult issue we will consider different means of offloading. Discussed continued wearing of Tubigrip compression stockings until ulcerations have healed at which time he will change to bilateral compression stocking. Discussed continuing to elevate feet at all times of rest for edema control. Discussed adequate protein intake to continue to aid in wound healing. Florentin supplementation was recommended. Discussed proper diabetic diet in addition to the stated above to ensure adequate wound healing. Patient states that his sugars have been up but not above 200. does state he does eat things that he should not though. Discussed signs and symptoms of infection. Discussed with the patient if he notices redness about the wound margins that continues to spread or moves up the leg, any purulent drainage from the wound site, increasing foul odor from the wound or if he experiences fever greater than 101 degree accompanied by nausea, vomiting, chills, that these are signs of a progressing infection and he should report to the ED for IV antibiotics and further evaluation. He and his voiced understanding of this today. The following work up and care recommendations were made: Dressing: Dakin's wet to dry Right Hallux. Change daily. EpiFix graft, wound veil, Steri-Strips, nurse hat to right heel. May change outer dressings as needed to right heel. Continue Tubigrip compression Wash: Soap and water Right Hallux, Do not get Right Heel wet Tissue growth optimization: Dakin's Right Hallux; EpiFix Right Heel. Offload: Elevating lower extremities at rest and Tubigrip compression. Offload with surgical shoe. Vascular: DP and PT pulses are weakly palpable with adequate capillary fill time. Do not feel that vascular status is affecting wound healing. Edema: Continue elevating lower extremities at all times of rest. Continue wearing Tubigrip compression stocking. Discussed eventual change to a standard prescription compression stocking once wounds have healed. Infection: No signs of infection. Wound cultures were taken given patient's prior history of recurrent bacterial infection at the sites. Pain: May take [id number] Tylenol for discomfort Host factors: DM type II with peripheral polyneuropathy, HTN, morbid obesity, lymphedema I answered all the patient's questions. To return to the wound healing center in 1 week or call sooner if the patient has any questions or concerns.
--- NOTE | 2023-11-29 13:19 | WC ---
pt and updated on approximate copay associated w/ epifix application and agreeable to use.
[2023-12-06 08:49] VITALS: BP 109/90; PULSE 84; RESP 22
--- NOTE | 2023-12-06 10:02 | PCM.WC.PN ---
History of Present Illness Date of Service: 12/06/23 Chief Complaint: Right heel ulcer and right hallux ulcer History of Wound: 67 year old male presents to the wound center for evaluation of his right heal ulcer. It started as a a pressure ulcer in February 2022 when he he was in TCU and it healed. It then became a blister right before his Left TKR surgery. He had his left knee replaced 07/14/22 at [facility]. 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 He also has a history of diabetes type II with peripheral polyneuropathy, HTN, lymphedema, hypercholesterolemia and PE that he is on Xerelto. Wound culture obtained on 08/30/22 which are positive for VRE, Kocuria kristinae and Corynebacterium striatum. He will completed the Linezolid. Wound culture obtained 06/20/23 which was positive for Staphylococcus pseudintermediu, Pseudomonas aeruginosa, Corynebacterium minutissiumum, and Anaerobic cocci. He was started on Levaquin and Flagyl. Foot xray 09/27/22 - Osteopenia with diffuse osteoarthritic changes. Diffuse soft tissue swelling with ossification of the distal Achilles tendon. No acute abnormality or evidence of erosive changes. Did undergo updated radiograph of the right foot 11/08/2023 with no noted changes from previous x-ray. This is a recurring ulceration to both distal medial tuft of the right hallux and posterior lateral heel. He states both sites had scabbed up and he was previously discharged however scabs have later broken down with re-ulceration. Wound care -currently applying Joelle daily and is offloading and surgical shoe to the right foot. He denies any fever, chills, nausea and vomiting. Denies further complaints. Subjective Subjective This is a 67-year-old male who presents to the wound care center for follow-up of right hallux distal tuft ulceration and right posterior lateral calcaneal ulceration. Patient does report history of recurring ulcerations of these 2 specific sites over the last several years. He is currently on doxycycline for his knee. He is also taking Clindamycin for positive wound cultures. States he has left graft intact at the heel and is changing dressings as needed. Denies constitutional symptoms. Denies further complaints. Objective Data Objective Data Vital Signs: Vital Signs Temp Pulse Resp BP O2 Del Method 97.7 F L 84 22 H 109/90 H Room Air 11/29/23 10:36 12/06/23 08:49 12/06/23 08:49 12/06/23 08:49 11/15/23 10:32 Oxygen Delivery Method Room Air Lab / Micro Data Micro: Microbiology 11/15/23 11:05 Wound - Right Foot Gram Stain - Final 11/15/23 11:05 Wound - Right Foot Wound Culture - Final Staphylococcus pseudintermediu 11/15/23 11:05 Wound - Right Foot Anaerobic Culture - Final No anaerobic bacteria isolated. 11/15/23 11:05 Wound - Right Foot Gram Stain - Final 11/15/23 11:05 Wound - Right Foot Wound Culture - Final Staphylococcus aureus Staphylococcus simulans Corynebacterium minutissimum 11/15/23 11:05 Wound - Right Foot Anaerobic Culture - Final No anaerobic bacteria isolated. Physical Exam Const alert, oriented x3 and no apparent distress General Appearance: cooperative HEENT normocephalic Eyes General Eye: normal appearance of both eyes Neck General: normal visual inspection Lymph Lymphatic: no lymphadenopathy noted and no lymphedema noted Resp normal respiratory effort Cardio regular rate and regular rhythm Extremity normal capillary refill, no joint enlargement, no calf tenderness and no pedal edema Extremity Narrative: Right lower extremity: Vascular: DP and PT pulses weakly palpable. CFT less than 5 seconds to the digits. Normal temperature gradient. Hair growth is absent to digits/foot. Neurologic: Gross sensation intact. Decreased light touch sensation. Absent protective sensation tested with 5.07g [place] monofilament. Lack of protective sensation consistent with diabetic peripheral polyneuropathy Dermatologic: There is varicosities noted to the lower extremity with subsequent edema about foot and LIANNA ankle. There is hyperkeratosis of the distal hallux tuft rim with ulceration with healthy granular tissue. There is a posterior lateral heel ulceration with mixed fibrogranular wound base and eschar/hyperkeratosis at the wound margin. No signs of infection. Musculoskeletal: Muscle strength 5 of 5 age-appropriate. Decreased range of motion of the ankle joint in dorsiflexion with the knee extended without pain or crepitus. Decreased range of motion of the first metatarsophalangeal joint without pain or crepitus. There is hammertoe deformity of digits 1 through 5. Skin no rashes or lesions noted, skin turgor normal and no jaundice General Skin Exam: venous stasis and dermatitis Neuro moves all extremities Debridement Note Debridement Note Wound debrided: Right foot x 2 Laterality: Right Wound Grade/Stage: Gomez stage I Type of Debridement: Excisional debridement Anesthesia Used: 5% Lidocaine Gel Depth: Down to and including healthy tissue and in the subcutaneous layer Percentage of wound debrided: 100 Instrument Used: 5mm curette and #15 blade Tissue Removed: Fibrous, devitalized subcutaneous, biofilm, slough Severity: Fat Layer Exposed Amount of bleeding with debridement: Mild Bleeding Controlled with: Compression and gauze Patient tolerated procedure: Patient tolerated procedure well Post-Debridement Measurements and Additional Note: Post-Debridement Measurements/Treatment - Nurse 1 - General Ulcer Assessment Start: 11/15/23 10:32 Freq: Status: Active Protocol: NELL Activity Type Activity Date Activity User E-sign Co-sign Detail Recorded Client Recorded Date Recorded By Document 11/15/23 10:32 KW Desktop 11/15/23 10:34 KW Document 11/22/23 10:52 DL Desktop 11/22/23 11:02 DL Document 11/29/23 10:36 DL Desktop 11/29/23 10:48 DL Document 12/06/23 08:49 DL Desktop 12/06/23 08:57 DL 11/15/23 11/22/23 11/29/23 10:32 10:52 10:36 - Today's Visit Information Type of service Initial Visit Follow-up Visit Follow-up Visit (Physician/DIGITAL COLOR PRESS OPERATOR (Physician/DIGITAL COLOR PRESS OPERATOR ) ) Arrival Mode Ambulatory, Ambulatory, Ambulatory, Walker Walker Walker Transfer Assistance None None Accompanied by Patient Identification Verified (Name & Yes Yes Yes ) Patient Requires Transmission-Based No No Precautions Finger Stick Blood Sugar(mg/dl) (if 142 113 indicated): Blood Sugar Stated by Stated by Patient Patient Vital Signs Temperature (97.8 F-99.1 F) 97.9 F 98.5 F 97.7 F L Temperature Source Temporal Temporal Temporal Pulse Rate (60-100) 83 81 79 Pulse Location Monitor Monitor Monitor Respiratory Rate (12-18) 18 20 H 20 H Respiratory rate source Observation Observation Oxygen Delivery Method Room Air Blood Pressure (90/60-120/80) 163/89 H 184/107 H 161/88 H Blood Pressure Mean (mm Hg) 113 132 112 Source Monitor Monitor Monitor Position Semi-Fowlers Blood Pressure Location Left Arm History Since Last Visit- (Skip if this is Patient's initial visit) Have you changed medications since your No No last visit? Any new allergies or adverse reactions No No Had a fall/change in ADL's that may No No increase risk of falls Signs or symptoms of abuse and/or No No neglect since last visit Have you been in the hospital since your No No last visit? Has dressing in place as prescribed Yes Yes Has compression in place as prescribed Yes Yes Has offloadiing in place as prescribed Yes Yes Experienced any changes in pain level or No No management Left Footwear Regular Shoe Surgical Shoe with pressure relief insole Right Footwear Regular Shoe Surgical Shoe with pressure relief insole Pain Scale: 0-10 Numeric Is Patient Pain Free? Yes Yes Yes 12/06/23 08:49 WC - Today's Visit Information Type of service Follow-up Visit (Physician/DIGITAL COLOR PRESS OPERATOR ) Arrival Mode Ambulatory, Walker Transfer Assistance None Accompanied by Patient Identification Verified (Name & Yes ) Patient Requires Transmission-Based No Precautions Finger Stick Blood Sugar(mg/dl) (if 105 indicated): Blood Sugar Stated by Patient Vital Signs Temperature (97.8 F-99.1 F) Temperature Source Pulse Rate (60-100) 84 Pulse Location Monitor Respiratory Rate (12-18) 22 H Respiratory rate source Observation Oxygen Delivery Method Blood Pressure (90/60-120/80) 109/90 H Blood Pressure Mean (mm Hg) 96 Source Monitor Position Blood Pressure Location History Since Last Visit- (Skip if this is Patient's initial visit) Have you changed medications since your No last visit? Any new allergies or adverse reactions No Had a fall/change in ADL's that may No increase risk of falls Signs or symptoms of abuse and/or No neglect since last visit Have you been in the hospital since your No last visit? Has dressing in place as prescribed Yes Has compression in place as prescribed Yes Has offloadiing in place as prescribed Yes Experienced any changes in pain level or No management Left Footwear Regular Shoe Right Footwear Surgical Shoe with pressure relief insole Pain Scale: 0-10 Numeric Is Patient Pain Free? Yes - Nurse 1 - General Ulcer Measurement Start: 11/15/23 10:32 Freq: Status: Active Protocol: Activity Type Activity Date Activity User E-sign Co-sign Detail Recorded Client Recorded Date Recorded By Document 11/15/23 10:32 KW Desktop 11/15/23 10:34 KW Document 11/22/23 10:52 DL Desktop 11/22/23 11:02 DL Document 11/29/23 10:36 DL Desktop 11/29/23 10:48 DL Document 12/06/23 08:49 DL Desktop 12/06/23 08:57 DL 11/15/23 11/22/23 11/29/23 10:32 10:52 10:36 Wound Center Nurse 1 #4 RT GREAT TOE -Current Size (cm) - Length 1.1 0.1 0.9 -Current Size (cm) - Width 1 0.1 1.1 -Current Size (cm) - Depth 0.1 0.1 0.1 -Total Square Cm 1.1 0.01 0.99 -Exudate Amt Small Small Medium -Exudate Type Serosanguineous Serosanguineous Serosanguineous -Wound Margin Distinct, Thickened Distinct, Outline Outline Attached Attached -Granulation Amt Small (1-33%) Large (67-100%) -Granulation Quality Goehner Red -Necrosis Amt Large (67-100%) Large (67-100%) Small (1-33%) -Necrotic Tissue Type Adherent Slough Adherent Slough Adherent Slough -Structure Exposed N/A N/A -Texture (Lianna-wound Skin Appearance) Assessed Localized Edema Callus,Scarring ,Scarring -Moisture (Lainna-wound Skin Appearance) Assessed No Abnormality Dry/Scaly -Color (Lianna-wound Skin Appearance) Assessed Erythema Hemosiderin Staining -Temperature (Lianna-wound Skin No Abnormality No Abnormality No Abnormality Appearance) (Pt Warm) (Pt Warm) (Pt Warm) -Tenderness on Palpation (Lianna-wound No Skin Appearance) -Ulcer Cleansing Rinsed/ Soap and Water Soap and Water Irrigated with Saline -Foul Odor after Cleansing No No -Anesthetic Used 5% Lidocaine 5% Lidocaine 5% Lidocaine Gel Gel Gel #3 RT HEEL -Current Size (cm) - Length 1.3 1.8 2.6 -Current Size (cm) - Width 3.5 1 0.6 -Current Size (cm) - Depth 0.1 0.2 0.1 -Total Square Cm 4.55 1.8 1.56 -Exudate Amt Medium Medium Medium -Exudate Type Serosanguineous Serosanguineous Serosanguineous -Wound Margin Distinct, Thickened Distinct, Outline Outline Attached Attached -Granulation Amt Medium (34-66%) Medium (34-66%) -Granulation Quality Goehner Pale,Goehner -Necrosis Amt Medium (34-66%) Medium (34-66%) -Necrotic Tissue Type Adherent Slough Adherent Slough -Structure Exposed N/A N/A -Texture (Lianna-wound Skin Appearance) Assessed Scarring Scarring -Moisture (Lianna-wound Skin Appearance) Assessed Maceration Dry/Scaly -Color (Lianna-wound Skin Appearance) Assessed Hemosiderin Hemosiderin Staining Staining -Temperature (Lianna-wound Skin No Abnormality No Abnormality No Abnormality Appearance) (Pt Warm) (Pt Warm) (Pt Warm) -Tenderness on Palpation (Lianna-wound No No Skin Appearance) -Ulcer Cleansing Rinsed/ Soap and Water Soap and Water Irrigated with Saline -Foul Odor after Cleansing No No -Anesthetic Used 5% Lidocaine 5% Lidocaine 5% Lidocaine Gel Gel Gel Right Calf (cm) 46 47 Right Ankle (cm) 28 29.5 12/06/23 08:49 Wound Center Nurse 1 #4 RT GREAT TOE -Current Size (cm) - Length 0.3 -Current Size (cm) - Width 0.5 -Current Size (cm) - Depth 0.1 -Total Square Cm 0.15 -Exudate Amt Small -Exudate Type Serosanguineous -Wound Margin Thickened -Granulation Amt None Present (0 %) -Granulation Quality -Necrosis Amt Large (67-100%) -Necrotic Tissue Type Eschar -Structure Exposed N/A -Texture (Lianna-wound Skin Appearance) Localized Edema ,Scarring -Moisture (Lianna-wound Skin Appearance) Dry/Scaly -Color (Lianna-wound Skin Appearance) Hemosiderin Staining -Temperature (Lianna-wound Skin No Abnormality Appearance) (Pt Warm) -Tenderness on Palpation (Lianna-wound No Skin Appearance) -Ulcer Cleansing Soap and Water -Foul Odor after Cleansing No -Anesthetic Used 5% Lidocaine Gel #3 RT HEEL -Current Size (cm) - Length 1 -Current Size (cm) - Width 0.9 -Current Size (cm) - Depth 0.2 -Total Square Cm 0.9 -Exudate Amt Medium -Exudate Type Serosanguineous -Wound Margin Thickened -Granulation Amt Medium (34-66%) -Granulation Quality Red -Necrosis Amt Medium (34-66%) -Necrotic Tissue Type Adherent Slough -Structure Exposed -Texture (Lianna-wound Skin Appearance) Scarring -Moisture (Lianna-wound Skin Appearance) No Abnormality, Not Assessed -Color (Lianna-wound Skin Appearance) No Abnormality -Temperature (Lianna-wound Skin No Abnormality Appearance) (Pt Warm) -Tenderness on Palpation (Lianna-wound No Skin Appearance) -Ulcer Cleansing Soap and Water -Foul Odor after Cleansing No -Anesthetic Used 5% Lidocaine Gel Right Calf (cm) 47.5 Right Ankle (cm) 28.8 WC - Nurse 2 - General Ulcer CM Notes Start: 11/15/23 10:32 Freq: Status: Active Protocol: Activity Type Activity Date Activity User E-sign Co-sign Detail Recorded Client Recorded Date Recorded By Document 11/15/23 11:01 [employer] Desktop 11/15/23 11:19 [employer] Document 11/22/23 11:07 [employer] Desktop 11/22/23 11:21 [employer] Document 11/29/23 11:01 [employer] Desktop 11/29/23 11:18 [employer] Document 12/06/23 09:00 [employer] Desktop 12/06/23 09:28 [employer] 11/15/23 11/22/23 11/29/23 11:01 11:07 11:01 Wound Center Nurse 2 #4 RT GREAT TOE -Time 11:01 11:08 11:01 -Correct Patient Yes Yes Yes -Correct Side, Site, Position Yes Yes Yes -Correct Procedure Yes Yes Yes -Procedure Performed Yes Yes Yes -Type of Procedure Debridement Debridement Debridement -Clinical Debridement Subcutaneous Subcutaneous Subcutaneous -Tissue Removed Subcutaneous Subcutaneous Subcutaneous -Post Debridement (cm) - Length 1.3 1 1 -Post Debridement (cm) - Width 1.5 2 1 -Post Debridement (cm) - Depth 0.1 0.1 0.1 -Total Square (Post) (cm) 1.95 2 1 -Area of Debridement (cm) - Length 1.3 1 1 -Area of Debridement (cm) - Width 1.5 2 1 -Total Square (Area) (cm) 1.95 2 1 -Tunneling No No No -Undermining/Tunneling No No No -Circular Undermining No No No -Wound/Ulcer Outcome Not Healed Not Healed Not Healed -Ulcer Cleansing Rinsed/ Rinsed/ Rinsed/ Irrigated with Irrigated with Irrigated with Saline Saline Saline -Foul Odor after Cleansing No No No -Bioengineered Tissue No No -Bleeding Controlled with Pressure Pressure Pressure -Treatment Response Procedure Procedure Procedure Tolerated Well Tolerated Well Tolerated Well -Offloading No Yes Yes -Type of Offloading Surgical Shoe Surgical Shoe -Debridement - Subq, 1st 20sq cm Yes No Yes #3 RT HEEL -Time 11:04 11:09 11:03 -Correct Patient Yes Yes Yes -Correct Side, Site, Position Yes Yes Yes -Correct Procedure Yes Yes Yes -Procedure Performed Yes Yes Yes -Type of Procedure Debridement Debridement Debridement -Clinical Debridement Subcutaneous Subcutaneous Subcutaneous -Tissue Removed Subcutaneous Subcutaneous Subcutaneous -Post Debridement (cm) - Length 3 2.9 3.5 -Post Debridement (cm) - Width 3.5 3.6 2.7 -Post Debridement (cm) - Depth 0.2 0.1 0.1 -Total Square (Post) (cm) 10.5 10.44 9.45 -Area of Debridement (cm) - Length 3 2.9 3.5 -Area of Debridement (cm) - Width 3.5 3.6 2.7 -Total Square (Area) (cm) 10.5 10.44 9.45 -Tunneling No No No -Undermining/Tunneling No No No -Circular Undermining No No No -Wound/Ulcer Outcome Not Healed Not Healed Not Healed -Ulcer Cleansing Rinsed/ Rinsed/ Rinsed/ Irrigated with Irrigated with Irrigated with Saline Saline Saline -Foul Odor after Cleansing No No No -Bioengineered Tissue No Yes -Type of Bioengineered Tissue Epifix Mesh -Expiration Date 06/13/28 -Product Lot Number [id number] -Percent Used 100 -Lot number of Saline Used [id number] -Bleeding Controlled with Pressure Pressure Pressure -Treatment Response Procedure Procedure Procedure Tolerated Well Tolerated Well Tolerated Well -Offloading Yes Yes -Type of Offloading Surgical Shoe Surgical Shoe -Debridement - Subq, 1st 20sq cm No Yes No -Apply Skin Sub - 1st 25 sq cm - Feet 1 -Epifix (per sq cm) -Epifix Mesh (per sq cm) 11 Pain Scale: 0-10 Numeric Is Patient Pain Free? Yes Yes Yes 12/06/23 09:00 Wound Center Nurse 2 #4 RT GREAT TOE -Time 09:15 -Correct Patient Yes -Correct Side, Site, Position Yes -Correct Procedure Yes -Procedure Performed Yes -Type of Procedure Debridement -Clinical Debridement Subcutaneous -Tissue Removed Subcutaneous -Post Debridement (cm) - Length -Post Debridement (cm) - Width -Post Debridement (cm) - Depth -Total Square (Post) (cm) -Area of Debridement (cm) - Length -Area of Debridement (cm) - Width -Total Square (Area) (cm) -Tunneling -Undermining/Tunneling -Circular Undermining No -Wound/Ulcer Outcome Not Healed -Ulcer Cleansing Rinsed/ Irrigated with Saline -Foul Odor after Cleansing No -Bioengineered Tissue No -Bleeding Controlled with Pressure -Treatment Response Procedure Tolerated Well -Offloading Yes -Type of Offloading Surgical Shoe -Debridement - Subq, 1st 20sq cm Yes #3 RT HEEL -Time 09:16 -Correct Patient Yes -Correct Side, Site, Position Yes -Correct Procedure Yes -Procedure Performed Yes -Type of Procedure Debridement -Clinical Debridement Subcutaneous -Tissue Removed Subcutaneous -Post Debridement (cm) - Length -Post Debridement (cm) - Width -Post Debridement (cm) - Depth -Total Square (Post) (cm) -Area of Debridement (cm) - Length -Area of Debridement (cm) - Width -Total Square (Area) (cm) -Tunneling No -Undermining/Tunneling No -Circular Undermining No -Wound/Ulcer Outcome Not Healed -Ulcer Cleansing Rinsed/ Irrigated with Saline -Foul Odor after Cleansing No -Bioengineered Tissue Yes -Type of Bioengineered Tissue Epifix Mesh -Expiration Date 07/13/28 -Product Lot Number [id number] -Percent Used 100 -Lot number of Saline Used [id number] -Bleeding Controlled with Pressure -Treatment Response Procedure Tolerated Well -Offloading Yes -Type of Offloading Surgical Shoe -Debridement - Subq, 1st 20sq cm No -Apply Skin Sub - 1st 25 sq cm - Feet 1 -Epifix (per sq cm) 4 -Epifix Mesh (per sq cm) Pain Scale: 0-10 Numeric Is Patient Pain Free? Yes WC - Nurse 3 - General Ulcer D/C NN Start: 11/15/23 10:32 Freq: Status: Active Protocol: Activity Type Activity Date Activity User E-sign Co-sign Detail Recorded Client Recorded Date Recorded By Document 11/15/23 11:37 DL Desktop 11/15/23 11:39 DL Document 11/22/23 11:52 CP Desktop 11/22/23 11:54 CP Document 11/29/23 11:42 ML Desktop 11/29/23 11:44 ML Document 12/06/23 09:47 DL Desktop 12/06/23 09:49 DL 11/15/23 11/22/23 11/29/23 11:37 11:52 11:42 Wound Care Center Nurse 3 #4 RT GREAT TOE -Ulcer Cleansing Rinsed/ Irrigated with Saline -Foul Odor after Cleansing No No -Primary Dressing Applied C Hydrogel ($), Hysept ($) -Other Dressing dkins gauze, gauze, abd, kerix -Primary Dressing Covered/Secured with Dry Gauze & Secured with Dry Gauze, Roll Gauze, Tape Secured with Secured with Tape Tape -Other Covering ABD #3 RT HEEL -Ulcer Cleansing Rinsed/ Rinsed/ Irrigated with Irrigated with Saline Saline -Foul Odor after Cleansing No No -Other Dressing dakins dakins gauze, abd, kerlix, tape -Primary Dressing Covered/Secured with Dry Gauze & Dry Gauze & Roll Gauze, Roll Gauze Secured with Tape -Other Covering -Wound Comment(s) nurses hat to R heel, cont. Dakin's to R Great toe Right -Compression Wrap -Tubular Bandage Single Layer Single Layer -Size of Tubigrip Used Size E Size F -Size E ($) 1 -Size F ($) 1 -Stockings -Other Treatment Response Procedure Procedure Tolerated Well Tolerated Well Pain Scale: 0-10 Numeric Is Patient Pain Free? Yes Yes Yes WC - Visit Discharge Discharge Condition Stable Stable Ambulatory Status Ambulatory, Ambulatory, Walker Walker Transportation Private Auto Private Auto Medication Reconcilliation completed & No provided to patient/care provider Clinical Summary of Care Provided Yes 12/06/23 09:47 Wound Care Center Nurse 3 #4 RT GREAT TOE -Ulcer Cleansing Not Cleansed -Foul Odor after Cleansing -Primary Dressing Applied -Other Dressing Epiifx -Primary Dressing Covered/Secured with Dry Gauze & Roll Gauze, Secured with Tape -Other Covering #3 RT HEEL -Ulcer Cleansing -Foul Odor after Cleansing No -Other Dressing Epifix -Primary Dressing Covered/Secured with -Other Covering Padding -Wound Comment(s) Right -Compression Wrap Miguelangel Wrap -Tubular Bandage -Size of Tubigrip Used -Size E ($) -Size F ($) -Stockings Yes -Other tubigrip Treatment Response Procedure Tolerated Well Pain Scale: 0-10 Numeric Is Patient Pain Free? Yes WC - Visit Discharge Discharge Condition Stable Ambulatory Status Ambulatory, Walker Transportation Private Auto Medication Reconcilliation completed & provided to patient/care provider Clinical Summary of Care Provided Assessment/Plan Assessment/Plan (1) Chronic ulcer of right heel with fat layer exposed: CODE(S): L97.412 - Non-pressure chronic ulcer of right heel and midfoot with fat layer exposed (2) Non-pressure chronic ulcer of other part of right foot with fat layer exposed: CODE(S): L97.512 - Non-pressure chronic ulcer of other part of right foot with fat layer exposed (3) Acute painful diabetic polyneuropathy: CODE(S): E11.42 - Type 2 diabetes mellitus with diabetic polyneuropathy (4) Type 2 diabetes mellitus with foot ulcer: CODE(S): E11.621 - Type 2 diabetes mellitus with foot ulcer; L97.509 - Non-pressure chronic ulcer of other part of unspecified foot with unspecified severity (5) Lower extremity edema: CODE(S): R60.0 - Localized edema (6) Hypertension: CODE(S): I10 - Essential (primary) hypertension (7) Debility: CODE(S): R53.81 - Other malaise PLAN: Plan Patient seen and evaluated Ulcerations debrided as noted in the clinical panel above. Right hallux distal tuft ulceration measures 0.6 cm x 0.7 cm x 0.1 cm and right posterior lateral heel ulceration measures 1.0 cm x 1.5 cm x 0.1 cm. No signs of infection. Dakin's wet-to-dry to the Right Hallux. He is to change dressing daily. EpiFix graft #2 was applied to the right heel and dressed with wound veil and anchored with Steri-Strips and dressed with dry sterile dressing/nurse hat. Ulcerations demonstrate reduction in size versus previous visit. Overall healing well with good granulation tissue Cultures were obtained in wound center for 11/15/2023. Culture of right hallux demonstrates Staph aureus, staph simulans, corynebacterium minutissimum; culture right heel demonstrates Staphylococcus psuedintermediu. Will continue clindamycin 150 mg 3 times daily stop date 12/06/2023. He was approved for EpiFix graft and we will continue to apply. Discussed continuing to offload right foot in surgical shoe. Recommended continued offloading while in bed with foam waffle boot. Patient was urged on this in the past however has not continued to offload while sleeping. He states that offloading is difficult at night with the waffle boot, discussed ensuring the boot is strapped on properly so that does not come off at night. If this remains a difficult issue we will consider different means of offloading. Discussed continued wearing of Tubigrip compression stockings until ulcerations have healed at which time he will change to bilateral compression stocking. Discussed continuing to elevate feet at all times of rest for edema control. Discussed adequate protein intake to continue to aid in wound healing. Florentin supplementation was recommended. Discussed proper diabetic diet in addition to the stated above to ensure adequate wound healing. Patient states that his sugars have been up but not above 200. does state he does eat things that he should not though. Discussed signs and symptoms of infection. Discussed with the patient if he notices redness about the wound margins that continues to spread or moves up the leg, any purulent drainage from the wound site, increasing foul odor from the wound or if he experiences fever greater than 101 degree accompanied by nausea, vomiting, chills, that these are signs of a progressing infection and he should report to the ED for IV antibiotics and further evaluation. He and his voiced understanding of this today. The following work up and care recommendations were made: Dressing: Dakin's wet to dry Right Hallux. Change daily. EpiFix graft, wound veil, Steri-Strips, nurse hat to right heel. May change outer dressings as needed to right heel. Continue Tubigrip compression Wash: Soap and water Right Hallux, Do not get Right Heel wet Tissue growth optimization: Dakin's Right Hallux; EpiFix Right Heel. Offload: Elevating lower extremities at rest and Tubigrip compression. Offload with surgical shoe. Vascular: DP and PT pulses are weakly palpable with adequate capillary fill time. Do not feel that vascular status is affecting wound healing. Edema: Continue elevating lower extremities at all times of rest. Continue wearing Tubigrip compression stocking. Discussed eventual change to a standard prescription compression stocking once wounds have healed. Infection: No signs of infection. Wound cultures were taken given patient's prior history of recurrent bacterial infection at the sites. Pain: May take [id number] Tylenol for discomfort Host factors: DM type II with peripheral polyneuropathy, HTN, morbid obesity, lymphedema I answered all the patient's questions. To return to the wound healing center in 1 week or call sooner if the patient has any questions or concerns.
== END 2023-12-11 23:59 | disposition home or self-care (01) ==
LOC: WC 09:00
PROVIDERS: PCP Internal Medicine; Referring Provider Internal Medicine; Visit Provider Student in an Organized Health Care Education/Training Program
DX: E11.621 Type 2 diabetes mellitus with foot ulcer (principal); L97.412 Non-pressure chronic ulcer of right heel and midfoot with fat layer exposed; L97.512 Non-pressure chronic ulcer of other part of right foot with fat layer exposed; E11.42 Type 2 diabetes mellitus with diabetic polyneuropathy; Z79.4 Long term (current) use of insulin; R60.0 Localized edema; I10 Essential (primary) hypertension; E78.00 Pure hypercholesterolemia, unspecified; R53.81 Other malaise; I89.0 Lymphedema, not elsewhere classified; Z79.82 Long term (current) use of aspirin; Z79.01 Long term (current) use of anticoagulants; Z79.85 Long-term (current) use of injectable non-insulin antidiabetic drugs; Z79.899 Other long term (current) drug therapy; Z86.711 Personal history of pulmonary embolism; Z87.891 Personal history of nicotine dependence; Z96.652 Presence of left artificial knee joint
CPT/HCPCS: 11042; 15275; 87070; 87075; 87077; 87186; 87205; 99203; Q4186; G0463

== ENCOUNTER 2024-01-10 10:45 | Outpatient (RCR) | payer MEDICARE, BC, SELFPAY ==
[2023-12-12 00:53] VITALS: BP 109/90; PULSE 84; RESP 22; TEMP 36.5
[2023-12-13 10:21] VITALS: RESP 18; TEMP 36.1
--- NOTE | 2023-12-13 13:00 | PCM.WC.PN ---
History of Present Illness Date of Service: 12/13/23 Chief Complaint: Right heel ulcer and right hallux ulcer History of Wound: 67 year old male presents to the wound center for evaluation of his right heal ulcer. It started as a a pressure ulcer in February 2022 when he he was in TCU and it healed. It then became a blister right before his Left TKR surgery. He had his left knee replaced 07/14/22 at [facility]. 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 He also has a history of diabetes type II with peripheral polyneuropathy, HTN, lymphedema, hypercholesterolemia and PE that he is on Xerelto. Wound culture obtained on 08/30/22 which are positive for VRE, Kocuria kristinae and Corynebacterium striatum. He will completed the Linezolid. Wound culture obtained 06/20/23 which was positive for Staphylococcus pseudintermediu, Pseudomonas aeruginosa, Corynebacterium minutissiumum, and Anaerobic cocci. He was started on Levaquin and Flagyl. Foot xray 09/27/22 - Osteopenia with diffuse osteoarthritic changes. Diffuse soft tissue swelling with ossification of the distal Achilles tendon. No acute abnormality or evidence of erosive changes. Did undergo updated radiograph of the right foot 11/08/2023 with no noted changes from previous x-ray. This is a recurring ulceration to both distal medial tuft of the right hallux and posterior lateral heel. He states both sites had scabbed up and he was previously discharged however scabs have later broken down with re-ulceration. Wound care -currently applying Joelle daily and is offloading and surgical shoe to the right foot. He denies any fever, chills, nausea and vomiting. Denies further complaints. Subjective Subjective This is a 67-year-old male who presents to the wound care center for follow-up of right hallux distal tuft ulceration and right posterior lateral calcaneal ulceration. Patient does report history of recurring ulcerations of these 2 specific sites over the last several years. He is currently on doxycycline for his knee. He is also taking Clindamycin for positive wound cultures. States he has left graft intact at the heel and is changing dressings as needed. states wounds are getting smaller. Denies constitutional symptoms. Denies further complaints. Objective Data Objective Data Vital Signs: Vital Signs Temp Pulse Resp BP O2 Del Method 97.0 F L 84 18 109/90 H Room Air 12/13/23 10:21 12/12/23 00:53 12/13/23 10:21 12/12/23 00:53 12/13/23 10:21 Oxygen Delivery Method Room Air Physical Exam Const alert, oriented x3 and no apparent distress General Appearance: cooperative HEENT normocephalic Eyes General Eye: normal appearance of both eyes Neck General: normal visual inspection Lymph Lymphatic: no lymphadenopathy noted and no lymphedema noted Resp normal respiratory effort Cardio regular rate and regular rhythm Extremity normal capillary refill and no calf tenderness Extremity Narrative: Right lower extremity: Vascular: DP and PT pulses weakly palpable. CFT less than 5 seconds to the digits. Normal temperature gradient. Hair growth is absent to digits/foot. Neurologic: Gross sensation intact. Decreased light touch sensation. Absent protective sensation tested with 5.07g [place] Zen monofilament. Lack of protective sensation consistent with diabetic peripheral polyneuropathy Dermatologic: There is varicosities noted to the lower extremity with subsequent edema about foot and LIANNA ankle. There is hyperkeratosis of the distal hallux tuft rim with ulceration with healthy granular tissue. There is a posterior lateral heel ulceration with mixed fibrogranular wound base and eschar/hyperkeratosis at the wound margin. No signs of infection. Musculoskeletal: Muscle strength 5 of 5 age-appropriate. Decreased range of motion of the ankle joint in dorsiflexion with the knee extended without pain or crepitus. Decreased range of motion of the first metatarsophalangeal joint without pain or crepitus. There is hammertoe deformity of digits 1 through 5. Skin no rashes or lesions noted and no jaundice General Skin Exam: venous stasis and dermatitis Neuro moves all extremities Debridement Note Debridement Note Wound debrided: Right lateral heel Laterality: Right Wound Grade/Stage: Gomez stage I Type of Debridement: Excisional debridement Anesthesia Used: 5% Lidocaine Gel Depth: Down to and including healthy tissue and in the subcutaneous layer Percentage of wound debrided: 100 Instrument Used: #15 blade Tissue Removed: Fibrous, devitalized subcutaneous, biofilm, slough Severity: Fat Layer Exposed Amount of bleeding with debridement: Mild Bleeding Controlled with: Compression and gauze Patient tolerated procedure: Patient tolerated procedure well Post-Debridement Measurements and Additional Note: Post-Debridement Measurements/Treatment LAM - Nurse 1 - General Ulcer Assessment Start: 12/13/23 10:21 Freq: Status: Active Protocol: NELL Activity Type Activity Date Activity User E-sign Co-sign Detail Recorded Client Recorded Date Recorded By Document 12/13/23 10:21 [email or web address] 12/13/23 10:35 KW 12/13/23 10:21 WC - Today's Visit Information Type of service Follow-up Visit (Physician/TOBACCO BUYER ) Arrival Mode Ambulatory, Walker Patient Identification Verified (Name & Yes ) Vital Signs Temperature (97.8 F-99.1 F) 97.0 F L Temperature Source Temporal Pulse Location Monitor Respiratory Rate (12-18) 18 Respiratory rate source Observation Oxygen Delivery Method Room Air Source Monitor Position Semi-Fowlers Blood Pressure Location Left Arm History Since Last Visit- (Skip if this is Patient's initial visit) Have you changed medications since your No last visit? Any new allergies or adverse reactions No Had a fall/change in ADL's that may No increase risk of falls Signs or symptoms of abuse and/or No neglect since last visit Have you been in the hospital since your No last visit? Has dressing in place as prescribed Yes Left Footwear Regular Shoe Right Footwear Surgical Shoe with pressure relief insole Pain Scale: 0-10 Numeric Is Patient Pain Free? Yes LAM - Nurse 1 - General Ulcer Measurement Start: 12/13/23 10:21 Freq: Status: Active Protocol: Activity Type Activity Date Activity User E-sign Co-sign Detail Recorded Client Recorded Date Recorded By Document 12/13/23 10:21 [email or web address] 12/13/23 10:35 KW 12/13/23 10:21 Wound Center Nurse 1 #4 RT GREAT TOE -Current Size (cm) - Length 0.3 -Current Size (cm) - Width 0.2 -Current Size (cm) - Depth 0.1 -Total Square Cm 0.06 -Exudate Amt Small -Exudate Type Serosanguineous -Granulation Amt Large (67-100%) -Granulation Quality [place] -Texture (Lianna-wound Skin Appearance) Assessed -Moisture (Lianna-wound Skin Appearance) Assessed -Color (Lianna-wound Skin Appearance) Assessed -Temperature (Lianna-wound Skin No Abnormality Appearance) (Pt Warm) -Tenderness on Palpation (Lianna-wound No Skin Appearance) -Ulcer Cleansing Soap and Water -Foul Odor after Cleansing No -Anesthetic Used 5% Lidocaine Gel #3 RT HEEL -Current Size (cm) - Length 0.8 -Current Size (cm) - Width 1 -Current Size (cm) - Depth 0.1 -Total Square Cm 0.8 -Wound Margin Indistinct, Non -Visible -Texture (Lianna-wound Skin Appearance) Assessed -Moisture (Lianna-wound Skin Appearance) Assessed -Color (Lianna-wound Skin Appearance) Assessed -Temperature (Lianna-wound Skin No Abnormality Appearance) (Pt Warm) -Tenderness on Palpation (Lianna-wound No Skin Appearance) -Ulcer Cleansing Soap and Water -Foul Odor after Cleansing No -Anesthetic Used 5% Lidocaine Gel -Wound Comment(s) scabbed over Right Calf (cm) 48 Right Ankle (cm) 27 WC - Nurse 2 - General Ulcer CM Notes Start: 12/13/23 10:21 Freq: Status: Active Protocol: Activity Type Activity Date Activity User E-sign Co-sign Detail Recorded Client Recorded Date Recorded By Document 12/13/23 11:03 [facility] Desktop 12/13/23 11:19 [facility] 12/13/23 11:03 Wound Center Nurse 2 #4 RT GREAT TOE -Time 11:05 -Correct Patient Yes -Correct Side, Site, Position Yes -Correct Procedure Yes -Procedure Performed Yes -Type of Procedure Debridement -Clinical Debridement Subcutaneous -Tissue Removed Subcutaneous -Post Debridement (cm) - Length 0.5 -Post Debridement (cm) - Width 0.5 -Post Debridement (cm) - Depth 0.1 -Total Square (Post) (cm) 0.25 -Area of Debridement (cm) - Length 0.5 -Area of Debridement (cm) - Width 0.5 -Total Square (Area) (cm) 0.25 -Tunneling No -Undermining/Tunneling No -Circular Undermining No -Wound/Ulcer Outcome Not Healed -Ulcer Cleansing Rinsed/ Irrigated with Saline -Foul Odor after Cleansing No -Bioengineered Tissue No -Bleeding Controlled with Pressure -Treatment Response Procedure Tolerated Well -Offloading Yes -Type of Offloading Surgical Shoe -Debridement - Subq, 1st 20sq cm Yes #3 RT HEEL -Time 11:06 -Correct Patient Yes -Correct Side, Site, Position Yes -Correct Procedure Yes -Procedure Performed Yes -Type of Procedure Debridement -Clinical Debridement Subcutaneous -Tissue Removed Subcutaneous -Post Debridement (cm) - Length 1.4 -Post Debridement (cm) - Width 1 -Post Debridement (cm) - Depth 0.1 -Total Square (Post) (cm) 1.4 -Area of Debridement (cm) - Length 1.4 -Area of Debridement (cm) - Width 1 -Total Square (Area) (cm) 1.4 -Tunneling No -Undermining/Tunneling No -Circular Undermining No -Wound/Ulcer Outcome Not Healed -Ulcer Cleansing Rinsed/ Irrigated with Saline -Foul Odor after Cleansing No -Bioengineered Tissue Yes -Expiration Date 06/13/28 -Product Lot Number [id number] -Percent Used 100 -Lot number of Saline Used [id number] -Bleeding Controlled with Pressure -Treatment Response Procedure Tolerated Well -Offloading Yes -Type of Offloading Surgical Shoe -Debridement - Subq, 1st 20sq cm No -Apply Skin Sub - 1st 25 sq cm - Feet 1 -Epifix (per sq cm) 4 Pain Scale: 0-10 Numeric Is Patient Pain Free? Yes - Nurse 3 - General Ulcer D/C NN Start: 12/13/23 10:21 Freq: Status: Active Protocol: Activity Type Activity Date Activity User E-sign Co-sign Detail Recorded Client Recorded Date Recorded By Document 12/13/23 11:29 [facility] Desktop 12/13/23 11:30 [facility] 12/13/23 11:29 Wound Care Center Nurse 3 #4 RT GREAT TOE -Primary Dressing Covered/Secured with Dry Gauze, Secured with Tape #3 RT HEEL -Primary Dressing Applied Aquacel Extra, Mepilex Border -Aquacel Extra 1 -Mepilex Border 1 Right -Tubular Bandage Single Layer -Size of Tubigrip Used Size F -Size F ($) 1 Treatment Response Procedure Tolerated Well Pain Scale: 0-10 Numeric Is Patient Pain Free? Yes - Visit Discharge Discharge Condition Stable Ambulatory Status Ambulatory, Walker Transportation Private Auto Accompanied by Additional Wound Wound debrided: Right hallux Laterality: Right Wound Grade/Stage: Gomez stage I Type of Debridement: Excisional debridement Anesthesia Used: 5% Lidocaine Gel Depth: Down to and including healthy tissue and in the subcutaneous layer Percentage of wound debrided: 100 Instrument Used: #15 blade Tissue Removed: Fibrous, devitalized subcutaneous, biofilm, slough Severity: Fat Layer Exposed Amount of bleeding with debridement: Mild Bleeding Controlled with: Compression and gauze Patient tolerated procedure: Patient tolerated procedure well Assessment/Plan Assessment/Plan (1) Non-pressure chronic ulcer of other part of right foot with fat layer exposed: CODE(S): L97.512 - Non-pressure chronic ulcer of other part of right foot with fat layer exposed (2) Chronic ulcer of right heel with fat layer exposed: CODE(S): L97.412 - Non-pressure chronic ulcer of right heel and midfoot with fat layer exposed (3) Diabetic polyneuropathy: CODE(S): E11.42 - Type 2 diabetes mellitus with diabetic polyneuropathy (4) Type 2 diabetes mellitus with foot ulcer: CODE(S): E11.621 - Type 2 diabetes mellitus with foot ulcer; L97.509 - Non-pressure chronic ulcer of other part of unspecified foot with unspecified severity (5) Hypertension: CODE(S): I10 - Essential (primary) hypertension (6) Lymphedema: CODE(S): I89.0 - Lymphedema, not elsewhere classified (7) Debility: CODE(S): R53.81 - Other malaise (8) Lower extremity edema: CODE(S): R60.0 - Localized edema PLAN: Plan Patient seen and evaluated Ulcerations debrided as noted in the clinical panel above. Right hallux distal tuft ulceration measures 0.5 cm x 0.5 cm x 0.1 cm and right posterior lateral heel ulceration measures 1.4 cm x 1.0 cm x 0.1 cm. No signs of infection. Dakin's wet-to-dry to the Right Hallux. He is to change dressing daily. EpiFix graft #3 was applied to the right heel and dressed with wound veil and anchored with Steri-Strips and dressed with dry sterile dressing/nurse hat. Ulcerations demonstrate reduction in size versus previous visit. Overall healing well with good granulation tissue Cultures were obtained in wound center for 11/15/2023. Culture of right hallux demonstrates Staph aureus, staph simulans, corynebacterium minutissimum; culture right heel demonstrates Staphylococcus psuedintermediu. Will continue clindamycin 150 mg 3 times daily stop date 12/06/2023. He has completed oral antibiotic. He was approved for EpiFix graft and we will continue to apply. Discussed continuing to offload right foot in surgical shoe. Recommended continued offloading while in bed with foam waffle boot. Patient was urged on this in the past however has not continued to offload while sleeping. He states that offloading is difficult at night with the waffle boot, discussed ensuring the boot is strapped on properly so that does not come off at night. If this remains a difficult issue we will consider different means of offloading. Discussed continued wearing of Tubigrip compression stockings until ulcerations have healed at which time he will change to bilateral compression stocking. Discussed continuing to elevate feet at all times of rest for edema control. Discussed adequate protein intake to continue to aid in wound healing. Florentin supplementation was recommended. Discussed proper diabetic diet in addition to the stated above to ensure adequate wound healing. Patient states that his sugars have been up but not above 200. does state he does eat things that he should not though. Discussed signs and symptoms of infection. Discussed with the patient if he notices redness about the wound margins that continues to spread or moves up the leg, any purulent drainage from the wound site, increasing foul odor from the wound or if he experiences fever greater than 101 degree accompanied by nausea, vomiting, chills, that these are signs of a progressing infection and he should report to the ED for IV antibiotics and further evaluation. He and his voiced understanding of this today. The following work up and care recommendations were made: Dressing: Dakin's wet to dry Right Hallux. Change daily. EpiFix graft, wound veil, Steri-Strips, nurse hat to right heel. May change outer dressings as needed to right heel. Continue Tubigrip compression Wash: Soap and water Right Hallux, Do not get Right Heel wet Tissue growth optimization: Dakin's Right Hallux; EpiFix Right Heel. Offload: Elevating lower extremities at rest and Tubigrip compression. Offload with surgical shoe. Vascular: DP and PT pulses are weakly palpable with adequate capillary fill time. Do not feel that vascular status is affecting wound healing. Edema: Continue elevating lower extremities at all times of rest. Continue wearing Tubigrip compression stocking. Discussed eventual change to a standard prescription compression stocking once wounds have healed. Infection: No signs of infection. Wound cultures were taken given patient's prior history of recurrent bacterial infection at the sites. Pain: May take [id number] Tylenol for discomfort Host factors: DM type II with peripheral polyneuropathy, HTN, morbid obesity, lymphedema I answered all the patient's questions. To return to the wound healing center in 1 week or call sooner if the patient has any questions or concerns.
[2023-12-20 10:27] VITALS: BP 168/89; PULSE 85; RESP 22; TEMP 36.8
--- NOTE | 2023-12-20 11:43 | PN.PCM_ITS ---
History of Present Illness Date of Service: 12/20/23 Chief Complaint: Right heel ulcer and right hallux ulcer History of Wound: 67 year old male presents to the wound center for evaluation of his right heal ulcer. It started as a a pressure ulcer in February 2022 when he he was in TCU and it healed. It then became a blister right before his Left TKR surgery. He had his left knee replaced 07/14/22 at [facility]. 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 He also has a history of diabetes type II with peripheral polyneuropathy, HTN, lymphedema, hypercholesterolemia and PE that he is on Xerelto. Wound culture obtained on 08/30/22 which are positive for VRE, Kocuria kristinae and Corynebacterium striatum. He will completed the Linezolid. Wound culture obtained 06/20/23 which was positive for Staphylococcus pseudintermediu, Pseudomonas aeruginosa, Corynebacterium minutissiumum, and Anaerobic cocci. He was started on Levaquin and Flagyl. Foot xray 09/27/22 - Osteopenia with diffuse osteoarthritic changes. Diffuse soft tissue swelling with ossification of the distal Achilles tendon. No acute abnormality or evidence of erosive changes. Did undergo updated radiograph of the right foot 11/08/2023 with no noted changes from previous x-ray. This is a recurring ulceration to both distal medial tuft of the right hallux and posterior lateral heel. He states both sites had scabbed up and he was previously discharged however scabs have later broken down with re-ulceration. Wound care -currently applying Joelle daily and is offloading and surgical shoe to the right foot. He denies any fever, chills, nausea and vomiting. Denies further complaints. Subjective Subjective This is a 67-year-old male who presents to the wound care center for follow-up of right hallux distal tuft ulceration and right posterior lateral calcaneal ulceration. Patient does report history of recurring ulcerations of these 2 specific sites over the last several years. He is currently on doxycycline for his knee. He is has also finished Clindamycin for positive wound cultures. States he has left graft intact at the heel and is changing dressings as needed.He continues to offload heel while sleeping. states wounds are getting smaller. Denies constitutional symptoms. Denies further complaints. Objective Data Objective Data Vital Signs: Vital Signs Temp Pulse Resp BP O2 Del Method 98.2 F 85 22 H 168/89 H Room Air 12/20/23 10:12/20/23 10:12/20/23 10:12/20/23 10:12/13/23 10:21 Oxygen Delivery Method Room Air Physical Exam Const alert, oriented x3 and no apparent distress General Appearance: cooperative HEENT normocephalic Eyes General Eye: normal appearance of both eyes Neck General: normal visual inspection Lymph Lymphatic: no lymphadenopathy noted and no lymphedema noted Resp normal respiratory effort Cardio regular rate and regular rhythm Extremity normal capillary refill and no calf tenderness Extremity Narrative: Right lower extremity: Vascular: DP and PT pulses weakly palpable. CFT less than 5 seconds to the digits. Normal temperature gradient. Hair growth is absent to digits/foot. Neurologic: Gross sensation intact. Decreased light touch sensation. Absent protective sensation tested with 5.07g [place] Zen monofilament. Lack of protective sensation consistent with diabetic peripheral polyneuropathy Dermatologic: There is varicosities noted to the lower extremity with subsequent edema about foot and LIANNA ankle. There is hyperkeratosis of the distal hallux tuft rim with ulceration with healthy granular tissue. There is a posterior lateral heel ulceration with mixed fibrogranular wound base and eschar/hyperkeratosis at the wound margin. No signs of infection. Musculoskeletal: Muscle strength 5 of 5 age-appropriate. Decreased range of motion of the ankle joint in dorsiflexion with the knee extended without pain or crepitus. Decreased range of motion of the first metatarsophalangeal joint without pain or crepitus. There is hammertoe deformity of digits 1 through 5. Skin no rashes or lesions noted and no jaundice General Skin Exam: venous stasis and dermatitis Neuro moves all extremities Debridement Note Debridement Note Wound debrided: Right posterior lateral heel Laterality: Right Wound Grade/Stage: Gomez stage I Type of Debridement: Excisional debridement Anesthesia Used: 5% Lidocaine Gel Depth: Down to and including healthy tissue and in the subcutaneous layer Percentage of wound debrided: 100 Instrument Used: 5mm curette and #15 blade Tissue Removed: Fibrous, devitalized subcutaneous, biofilm, slough Severity: Fat Layer Exposed Amount of bleeding with debridement: Mild Bleeding Controlled with: Compression and gauze Patient tolerated procedure: Patient tolerated procedure well Post-Debridement Measurements and Additional Note: Post-Debridement Measurements/Treatment WC - Nurse 1 - General Ulcer Assessment Start: 12/13/23 10:21 Freq: Status: Active Protocol: NELL Activity Type Activity Date Activity User E-sign Co-sign Detail Recorded Client Recorded Date Recorded By Document 12/13/23 10:21 KW Desktop 12/13/23 10:35 KW Document 12/20/23 10:27 DL Desktop 12/20/23 10:36 DL 12/13/23 12/20/23 10:21 10:27 WC - Today's Visit Information Type of service Follow-up Visit Follow-up Visit (Physician/MANAGER FILM (Physician/MANAGER FILM ) ) Arrival Mode Ambulatory, Ambulatory, Walker Walker Transfer Assistance None Patient Identification Verified (Name & Yes Yes ) Patient Requires Transmission-Based No Precautions Finger Stick Blood Sugar(mg/dl) (if 121 indicated): Blood Sugar Stated by Patient Vital Signs Temperature (97.8 F-99.1 F) 97.0 F L 98.2 F Temperature Source Temporal Temporal Pulse Rate (60-100) 85 Pulse Location Monitor Monitor Respiratory Rate (12-18) 18 22 H Respiratory rate source Observation Observation Oxygen Delivery Method Room Air Blood Pressure (90/60-120/80) 168/89 H Blood Pressure Mean (mm Hg) 115 Source Monitor Monitor Position Semi-Fowlers Blood Pressure Location Left Arm History Since Last Visit- (Skip if this is Patient's initial visit) Have you changed medications since your No No last visit? Any new allergies or adverse reactions No No Had a fall/change in ADL's that may No No increase risk of falls Signs or symptoms of abuse and/or No No neglect since last visit Have you been in the hospital since your No No last visit? Has dressing in place as prescribed Yes Yes Has compression in place as prescribed Yes Has offloadiing in place as prescribed Yes Experienced any changes in pain level or No management Left Footwear Regular Shoe Right Footwear Surgical Shoe Surgical Shoe with pressure with pressure relief insole relief insole Pain Scale: 0-10 Numeric Is Patient Pain Free? Yes Yes LAM - Nurse 1 - General Ulcer Measurement Start: 12/13/23 10:21 Freq: Status: Active Protocol: Activity Type Activity Date Activity User E-sign Co-sign Detail Recorded Client Recorded Date Recorded By Document 12/13/23 10:21 KW Desktop 12/13/23 10:35 KW Document 12/20/23 10:27 DL Desktop 12/20/23 10:36 DL 12/13/23 12/20/23 10:21 10:27 Wound Center Nurse 1 #4 RT GREAT TOE -Current Size (cm) - Length 0.3 0.1 -Current Size (cm) - Width 0.2 0.1 -Current Size (cm) - Depth 0.1 0.1 -Total Square Cm 0.06 0.01 -Exudate Amt Small None Present -Exudate Type Serosanguineous -Wound Margin Thickened -Granulation Amt Large (67-100%) Small (1-33%) -Granulation Quality [place] Red -Necrosis Amt None Present (0 %) -Structure Exposed N/A -Texture (Lianna-wound Skin Appearance) Assessed Scarring -Moisture (Lianna-wound Skin Appearance) Assessed Dry/Scaly -Color (Lianna-wound Skin Appearance) Assessed Hemosiderin Staining -Temperature (Lianna-wound Skin No Abnormality No Abnormality Appearance) (Pt Warm) (Pt Warm) -Tenderness on Palpation (Lianna-wound No Skin Appearance) -Ulcer Cleansing Soap and Water Soap and Water -Foul Odor after Cleansing No No -Anesthetic Used 5% Lidocaine 5% Lidocaine Gel Gel #3 RT HEEL -Current Size (cm) - Length 0.8 1 -Current Size (cm) - Width 1 0.6 -Current Size (cm) - Depth 0.1 0.1 -Total Square Cm 0.8 0.6 -Exudate Amt Medium -Exudate Type Serosanguineous -Wound Margin Indistinct, Non Distinct, -Visible Outline Attached -Granulation Amt Small (1-33%) -Granulation Quality [place] -Necrosis Amt Medium (34-66%) -Necrotic Tissue Type Adherent Slough -Structure Exposed N/A -Texture (Lianna-wound Skin Appearance) Assessed Scarring -Moisture (Lianna-wound Skin Appearance) Assessed Dry/Scaly -Color (Lianna-wound Skin Appearance) Assessed Hemosiderin Staining -Temperature (Lianna-wound Skin No Abnormality No Abnormality Appearance) (Pt Warm) (Pt Warm) -Tenderness on Palpation (Lianna-wound No No Skin Appearance) -Ulcer Cleansing Soap and Water Soap and Water -Foul Odor after Cleansing No No -Anesthetic Used 5% Lidocaine 5% Lidocaine Gel Gel -Wound Comment(s) scabbed over Right Calf (cm) 48 Right Ankle (cm) 27 WC - Nurse 2 - General Ulcer CM Notes Start: 12/13/23 10:21 Freq: Status: Active Protocol: Activity Type Activity Date Activity User E-sign Co-sign Detail Recorded Client Recorded Date Recorded By Document 12/13/23 11:03 BMF Desktop 12/13/23 11:19 BMF Document 12/20/23 10:43 DS Desktop 12/20/23 10:53 DS 12/13/23 12/20/23 11:03 10:43 Wound Center Nurse 2 #4 RT GREAT TOE -Time 11:05 10:45 -Correct Patient Yes Yes -Correct Side, Site, Position Yes Yes -Correct Procedure Yes Yes -Procedure Performed Yes Yes -Type of Procedure Debridement Debridement -Clinical Debridement Subcutaneous Subcutaneous -Tissue Removed Subcutaneous Subcutaneous -Post Debridement (cm) - Length 0.5 0.5 -Post Debridement (cm) - Width 0.5 0.5 -Post Debridement (cm) - Depth 0.1 0.1 -Total Square (Post) (cm) 0.25 0.25 -Area of Debridement (cm) - Length 0.5 0.5 -Area of Debridement (cm) - Width 0.5 0.5 -Total Square (Area) (cm) 0.25 0.25 -Tunneling No No -Undermining/Tunneling No No -Circular Undermining No No -Wound/Ulcer Outcome Not Healed Not Healed -Ulcer Cleansing Rinsed/ Rinsed/ Irrigated with Irrigated with Saline Saline -Foul Odor after Cleansing No -Bioengineered Tissue No -Bleeding Controlled with Pressure Pressure -Treatment Response Procedure Procedure Tolerated Well Tolerated Well -Offloading Yes Yes -Type of Offloading Surgical Shoe Surgical Shoe -Debridement - Subq, 1st 20sq cm Yes Yes #3 RT HEEL -Time 11:06 10:46 -Correct Patient Yes Yes -Correct Side, Site, Position Yes Yes -Correct Procedure Yes Yes -Procedure Performed Yes Yes -Type of Procedure Debridement Debridement -Clinical Debridement Subcutaneous Subcutaneous -Tissue Removed Subcutaneous Subcutaneous -Post Debridement (cm) - Length 1.4 1.0 -Post Debridement (cm) - Width 1 0.6 -Post Debridement (cm) - Depth 0.1 0.1 -Total Square (Post) (cm) 1.4 0.60 -Area of Debridement (cm) - Length 1.4 1.0 -Area of Debridement (cm) - Width 1 0.6 -Total Square (Area) (cm) 1.4 0.60 -Tunneling No No -Undermining/Tunneling No No -Circular Undermining No No -Wound/Ulcer Outcome Not Healed Not Healed -Ulcer Cleansing Rinsed/ Rinsed/ Irrigated with Irrigated with Saline Saline -Foul Odor after Cleansing No No -Bioengineered Tissue Yes -Type of Bioengineered Tissue Epifix -Expiration Date 06/13/28 08/13/28 -Product Lot Number [id number] -Percent Used 100 100 -Lot number of Saline Used [id number] -Bleeding Controlled with Pressure Pressure -Treatment Response Procedure Procedure Tolerated Well Tolerated Well -Offloading Yes Yes -Type of Offloading Surgical Shoe Surgical Shoe -Debridement - Subq, 1st 20sq cm No No -Apply Skin Sub - 1st 25 sq cm - Feet 1 -Epifix (per sq cm) 4 4 Pain Scale: 0-10 Numeric Is Patient Pain Free? Yes Yes - Nurse 3 - General Ulcer D/C NN Start: 12/13/23 10:21 Freq: Status: Active Protocol: Activity Type Activity Date Activity User E-sign Co-sign Detail Recorded Client Recorded Date Recorded By Document 12/13/23 11:29 [facility] Desktop 12/13/23 11:30 [facility] 12/13/23 11:29 Wound Care Center Nurse 3 #4 RT GREAT TOE -Primary Dressing Covered/Secured with Dry Gauze, Secured with Tape #3 RT HEEL -Primary Dressing Applied Aquacel Extra, Mepilex Border -Aquacel Extra 1 -Mepilex Border 1 Right -Tubular Bandage Single Layer -Size of Tubigrip Used Size F -Size F ($) 1 Treatment Response Procedure Tolerated Well Pain Scale: 0-10 Numeric Is Patient Pain Free? Yes - Visit Discharge Discharge Condition Stable Ambulatory Status Ambulatory, Walker Transportation Private Auto Accompanied by Additional Wound Wound debrided: Right hallux Laterality: Right Wound Grade/Stage: Gomez stage I Type of Debridement: Excisional debridement Anesthesia Used: 5% Lidocaine Gel Depth: Down to and including healthy tissue and in the subcutaneous layer Percentage of wound debrided: 100 Instrument Used: #15 blade Tissue Removed: Fibrous, devitalized subcutaneous, biofilm, slough Severity: Fat Layer Exposed Amount of bleeding with debridement: Mild Bleeding Controlled with: Compression and gauze Patient tolerated procedure: Patient tolerated procedure well Assessment/Plan Assessment/Plan (1) Non-pressure chronic ulcer of other part of right foot with fat layer exposed: CODE(S): L97.512 - Non-pressure chronic ulcer of other part of right foot with fat layer exposed (2) Chronic ulcer of right heel with fat layer exposed: CODE(S): L97.412 - Non-pressure chronic ulcer of right heel and midfoot with fat layer exposed (3) Diabetic polyneuropathy: CODE(S): E11.42 - Type 2 diabetes mellitus with diabetic polyneuropathy (4) Type 2 diabetes mellitus with foot ulcer: CODE(S): E11.621 - Type 2 diabetes mellitus with foot ulcer; L97.509 - Non-pressure chronic ulcer of other part of unspecified foot with unspecified severity (5) Hypertension: CODE(S): I10 - Essential (primary) hypertension (6) Lymphedema: CODE(S): I89.0 - Lymphedema, not elsewhere classified (7) Debility: CODE(S): R53.81 - Other malaise (8) Lower extremity edema: CODE(S): R60.0 - Localized edema PLAN: Plan Patient seen and evaluated Ulcerations debrided as noted in the clinical panel above. Right hallux distal tuft ulceration measures 0.5 cm x 0.5 cm x 0.1 cm and right posterior lateral heel ulceration measures 1.0 cm x 0.8 cm x 0.1 cm. No signs of infection. Dakin's wet-to-dry to the Right Hallux. He is to change dressing daily. EpiFix graft #4 was applied to the right heel and dressed with wound veil and anchored with Steri-Strips and dressed with dry sterile dressing/nurse hat. Ulcerations demonstrate reduction in size versus previous visit. Overall healing well with good granulation tissue Cultures were obtained in wound center for 11/15/2023. Culture of right hallux demonstrates Staph aureus, staph simulans, corynebacterium minutissimum; culture right heel demonstrates Staphylococcus psuedintermediu. Clindamycin 150 mg 3 times daily stop date 12/06/2023. He has completed oral antibiotic. He was approved for EpiFix graft and we will continue to apply. Discussed continuing to offload right foot in surgical shoe. Recommended continued offloading while in bed with foam waffle boot. Patient was urged on this in the past however has not continued to offload while sleeping. He states that offloading is difficult at night with the waffle boot, discussed ensuring the boot is strapped on properly so that does not come off at night. If this remains a difficult issue we will consider different means of offloading. Discussed continued wearing of Tubigrip compression stockings until ulcerations have healed at which time he will change to bilateral compression stocking. Discussed continuing to elevate feet at all times of rest for edema control. Discussed adequate protein intake to continue to aid in wound healing. Florentin supplementation was recommended. Discussed proper diabetic diet in addition to the stated above to ensure adequate wound healing. Patient states that his sugars have been up but not above 200. does state he does eat things that he should not though. He has started taking the instructed supplements for his neuropathy consisting of of complex B vitamin daily, magnesium 250 mg daily, alpha lipoic acid 300 mg daily, and 500 mg glutamine supplement. Discussed continuing to take it and a llow time for the nerves to continue repair. Discussed signs and symptoms of infection. Discussed with the patient if he notices redness about the wound margins that continues to spread or moves up the leg, any purulent drainage from the wound site, increasing foul odor from the wound or if he experiences fever greater than 101 degree accompanied by nausea, vomiting, chills, that these are signs of a progressing infection and he should report to the ED for IV antibiotics and further evaluation. He and his voiced understanding of this today. The following work up and care recommendations were made: Dressing: Dakin's wet to dry Right Hallux. Change daily. EpiFix graft, wound veil, Steri-Strips, nurse hat to right heel. May change outer dressings as needed to right heel. Continue Tubigrip compression Wash: Soap and water Right Hallux, Do not get Right Heel wet Tissue growth optimization: Dakin's Right Hallux; EpiFix Right Heel. Offload: Elevating lower extremities at rest and Tubigrip compression. Offload with surgical shoe. Vascular: DP and PT pulses are weakly palpable with adequate capillary fill time. Do not feel that vascular status is affecting wound healing. Edema: Continue elevating lower extremities at all times of rest. Continue wearing Tubigrip compression stocking. Discussed eventual change to a standard prescription compression stocking once wounds have healed. Infection: No signs of infection. Wound cultures were taken given patient's prior history of recurrent bacterial infection at the sites. Pain: May take [id number] Tylenol for discomfort Host factors: DM type II with peripheral polyneuropathy, HTN, morbid obesity, lymphedema I answered all the patient's questions. To return to the wound healing center in 1 week or call sooner if the patient has any questions or concerns.
[2023-12-27 10:30] VITALS: BP 182/96; PULSE 80; RESP 20; TEMP 36.6
--- NOTE | 2023-12-27 13:17 | PCM.WC.PN ---
History of Present Illness Date of Service: 12/27/23 Chief Complaint: Right heel ulcer and right hallux ulcer History of Wound: 67 year old male presents to the wound center for evaluation of his right heal ulcer. It started as a a pressure ulcer in February 2022 when he he was in TCU and it healed. It then became a blister right before his Left TKR surgery. He had his left knee replaced 07/14/22 at [facility]. 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 He also has a history of diabetes type II with peripheral polyneuropathy, HTN, lymphedema, hypercholesterolemia and PE that he is on Xerelto. Wound culture obtained on 08/30/22 which are positive for VRE, Kocuria kristinae and Corynebacterium striatum. He will completed the Linezolid. Wound culture obtained 06/20/23 which was positive for Staphylococcus pseudintermediu, Pseudomonas aeruginosa, Corynebacterium minutissiumum, and Anaerobic cocci. He was started on Levaquin and Flagyl. Foot xray 09/27/22 - Osteopenia with diffuse osteoarthritic changes. Diffuse soft tissue swelling with ossification of the distal Achilles tendon. No acute abnormality or evidence of erosive changes. Did undergo updated radiograph of the right foot 11/08/2023 with no noted changes from previous x-ray. This is a recurring ulceration to both distal medial tuft of the right hallux and posterior lateral heel. He states both sites had scabbed up and he was previously discharged however scabs have later broken down with re-ulceration. Wound care -currently applying Joelle daily and is offloading and surgical shoe to the right foot. He denies any fever, chills, nausea and vomiting. Denies further complaints. Subjective Subjective This is a 67-year-old male who presents to the wound care center for follow-up of right hallux distal tuft ulceration and right posterior lateral calcaneal ulceration. Patient does report history of recurring ulcerations of these 2 specific sites over the last several years. He is currently on doxycycline for his knee. He is has also finished Clindamycin for positive wound cultures. States he has left graft intact at the heel and is changing dressings as needed. He continues to offload heel while sleeping. states wounds are getting smaller. Denies constitutional symptoms. Denies further complaints. Objective Data Objective Data Vital Signs: Vital Signs Temp Pulse Resp BP O2 Del Method 98 F 80 20 H 182/96 H Room Air 12/27/23 10:30 12/27/23 10:30 12/27/23 10:30 12/27/23 10:30 12/13/23 10:21 Oxygen Delivery Method Room Air Physical Exam Const alert, oriented x3 and no apparent distress General Appearance: cooperative HEENT normocephalic Eyes General Eye: normal appearance of both eyes Neck General: normal visual inspection Lymph Lymphatic: no lymphadenopathy noted and no lymphedema noted Resp normal respiratory effort Cardio regular rate and regular rhythm Extremity normal capillary refill and no calf tenderness Extremity Narrative: Right lower extremity: Vascular: DP and PT pulses weakly palpable. CFT less than 5 seconds to the digits. Normal temperature gradient. Hair growth is absent to digits/foot. Neurologic: Gross sensation intact. Decreased light touch sensation. Absent protective sensation tested with 5.07g [place] monofilament. Lack of protective sensation consistent with diabetic peripheral polyneuropathy Dermatologic: There is varicosities noted to the lower extremity with subsequent edema about foot and LIANNA ankle. There is hyperkeratosis of the distal hallux tuft rim with ulceration with healthy granular tissue. There is a posterior lateral heel ulceration with mixed fibrogranular wound base and eschar/hyperkeratosis at the wound margin. No signs of infection. Musculoskeletal: Muscle strength 5 of 5 age-appropriate. Decreased range of motion of the ankle joint in dorsiflexion with the knee extended without pain or crepitus. Decreased range of motion of the first metatarsophalangeal joint without pain or crepitus. There is hammertoe deformity of digits 1 through 5. Skin no rashes or lesions noted and no jaundice General Skin Exam: venous stasis and dermatitis Neuro moves all extremities Debridement Note Debridement Note Wound debrided: Right lateral heel Laterality: Right Wound Grade/Stage: Gomez stage I Type of Debridement: Excisional debridement Anesthesia Used: 5% Lidocaine Gel Depth: Down to and including healthy tissue and in the subcutaneous layer Percentage of wound debrided: 100 Instrument Used: #15 blade Tissue Removed: Fibrous, devitalized subcutaneous, biofilm, slough Severity: Fat Layer Exposed Amount of bleeding with debridement: Mild Bleeding Controlled with: Compression and gauze Patient tolerated procedure: Patient tolerated procedure well Post-Debridement Measurements and Additional Note: Post-Debridement Measurements/Treatment - Nurse 1 - General Ulcer Assessment Start: 12/13/23 10:21 Freq: Status: Active Protocol: NELL Activity Type Activity Date Activity User E-sign Co-sign Detail Recorded Client Recorded Date Recorded By Document 12/13/23 10:21 KW Desktop 12/13/23 10:35 KW Document 12/20/23 10:27 DL Desktop 12/20/23 10:36 DL Document 12/27/23 10:30 DL [email or web address] 12/27/23 10:40 DL 12/13/23 12/20/23 12/27/23 10:21 10:27 10:30 WC - Today's Visit Information Type of service Follow-up Visit Follow-up Visit Follow-up Visit (Physician/PRODUCT DEVELOPMENT ECOLOGIST (Physician/PRODUCT DEVELOPMENT ECOLOGIST (Physician/PRODUCT DEVELOPMENT ECOLOGIST ) ) ) Arrival Mode Ambulatory, Ambulatory, Ambulatory, Walker Walker Walker Transfer Assistance None None Patient Identification Verified (Name & Yes Yes Yes ) Patient Requires Transmission-Based No No Precautions Finger Stick Blood Sugar(mg/dl) (if 121 121 indicated): Blood Sugar Stated by Stated by Patient Patient Vital Signs Temperature (97.8 F-99.1 F) 97.0 F L 98.2 F 98 F Temperature Source Temporal Temporal Temporal Pulse Rate (60-100) 85 80 Pulse Location Monitor Monitor Monitor Respiratory Rate (12-18) 18 22 H 20 H Respiratory rate source Observation Observation Oxygen Delivery Method Room Air Blood Pressure (90/60-120/80) 168/89 H 182/96 H Blood Pressure Mean (mm Hg) 115 124 Source Monitor Monitor Monitor Position Semi-Fowlers Blood Pressure Location Left Arm History Since Last Visit- (Skip if this is Patient's initial visit) Have you changed medications since your No No No last visit? Any new allergies or adverse reactions No No No Had a fall/change in ADL's that may No No No increase risk of falls Signs or symptoms of abuse and/or No No No neglect since last visit Have you been in the hospital since your No No No last visit? Has dressing in place as prescribed Yes Yes Yes Has compression in place as prescribed Yes Yes Has offloadiing in place as prescribed Yes Yes Experienced any changes in pain level or No No management Left Footwear Regular Shoe Regular Shoe Right Footwear Surgical Shoe Surgical Shoe Surgical Shoe with pressure with pressure with pressure relief insole relief insole relief insole Pain Scale: 0-10 Numeric Is Patient Pain Free? Yes Yes Yes WC - Nurse 1 - General Ulcer Measurement Start: 12/13/23 10:21 Freq: Status: Active Protocol: Activity Type Activity Date Activity User E-sign Co-sign Detail Recorded Client Recorded Date Recorded By Document 12/13/23 10:21 KW Desktop 12/13/23 10:35 KW Document 12/20/23 10:27 DL Desktop 12/20/23 10:36 DL Document 12/27/23 10:30 DL [email or web address] 12/27/23 10:40 DL 12/13/23 12/20/23 12/27/23 10:21 10:27 10:30 Wound Center Nurse 1 #4 RT GREAT TOE -Current Size (cm) - Length 0.3 0.1 0.6 -Current Size (cm) - Width 0.2 0.1 0.6 -Current Size (cm) - Depth 0.1 0.1 0.1 -Total Square Cm 0.06 0.01 0.36 -Photo Taken Yes -Exudate Amt Small None Present Small -Exudate Type Serosanguineous -Wound Margin Thickened Thickened -Granulation Amt Large (67-100%) Small (1-33%) Small (1-33%) -Granulation Quality [place] Red Red -Necrosis Amt None Present (0 Small (1-33%) %) -Necrotic Tissue Type Eschar -Structure Exposed N/A N/A -Texture (Lianna-wound Skin Appearance) Assessed Scarring Localized Edema ,Scarring -Moisture (Lianna-wound Skin Appearance) Assessed Dry/Scaly No Abnormality -Color (Lianna-wound Skin Appearance) Assessed Hemosiderin Hemosiderin Staining Staining -Temperature (Lianna-wound Skin No Abnormality No Abnormality No Abnormality Appearance) (Pt Warm) (Pt Warm) (Pt Warm) -Tenderness on Palpation (Lianna-wound No Skin Appearance) -Ulcer Cleansing Soap and Water Soap and Water Soap and Water -Foul Odor after Cleansing No No No -Anesthetic Used 5% Lidocaine 5% Lidocaine 5% Lidocaine Gel Gel Gel #3 RT HEEL -Current Size (cm) - Length 0.8 1 0.7 -Current Size (cm) - Width 1 0.6 0.9 -Current Size (cm) - Depth 0.1 0.1 0.1 -Total Square Cm 0.8 0.6 0.63 -Photo Taken Yes -Exudate Amt Medium Medium -Exudate Type Serosanguineous Serosanguineous -Wound Margin Indistinct, Non Distinct, Distinct, -Visible Outline Outline Attached Attached -Granulation Amt Small (1-33%) Medium (34-66%) -Granulation Quality [place] Pale,[place] -Necrosis Amt Medium (34-66%) Medium (34-66%) -Necrotic Tissue Type Adherent Slough Adherent Slough -Structure Exposed N/A N/A -Texture (Lianna-wound Skin Appearance) Assessed Scarring Scarring -Moisture (Lianna-wound Skin Appearance) Assessed Dry/Scaly Maceration -Color (Lianna-wound Skin Appearance) Assessed Hemosiderin No Abnormality Staining -Temperature (Lianna-wound Skin No Abnormality No Abnormality No Abnormality Appearance) (Pt Warm) (Pt Warm) (Pt Warm) -Tenderness on Palpation (Lianna-wound No No No Skin Appearance) -Ulcer Cleansing Soap and Water Soap and Water Soap and Water -Foul Odor after Cleansing No No No -Anesthetic Used 5% Lidocaine 5% Lidocaine 5% Lidocaine Gel Gel Gel -Wound Comment(s) scabbed over Right Calf (cm) 48 48.4 Right Ankle (cm) 27 26.5 WC - Nurse 2 - General Ulcer CM Notes Start: 12/13/23 10:21 Freq: Status: Active Protocol: Activity Type Activity Date Activity User E-sign Co-sign Detail Recorded Client Recorded Date Recorded By Document 12/13/23 11:03 BMF Desktop 12/13/23 11:19 BMF Document 12/20/23 10:43 DS Desktop 12/20/23 10:53 DS Edit Result 12/20/23 10:43 DS (1) [id number] 12/24/23 13:38 BMF Document 12/27/23 11:05 BM [email or web address] 12/27/23 11:16 BMF Edit Result 12/27/23 11:05 BMF (2) [id number] 12/27/23 12:10 DL (1) #3 RT HEEL - Apply Skin Sub - 1st 25 sq cm - Feet => 1 (2) #4 RT GREAT TOE - Correct Patient Yes => - Correct Side, Site, Position Yes => - Correct Procedure Yes => - Procedure Performed Yes => - Type of Procedure Debridement => - Clinical Debridement Subcutaneous => - Tissue Removed Subcutaneous => - Post Debridement (cm) - Length => 0.1 - Post Debridement (cm) - Width => 0.1 - Post Debridement (cm) - Depth => 0.1 - Total Square (Post) (cm) => 0.01 - Area of Debridement (cm) - Length => 0.1 - Area of Debridement (cm) - Width => 0.1 - Total Square (Area) (cm) => 0.01 - Ulcer Cleansing Rinsed/Irrigated => with Saline => - Foul Odor after Cleansing No => - Bioengineered Tissue No => - Bleeding Controlled with Pressure => NA - Treatment Response Procedure => Tolerated Well => - Debridement - Subq, 1st 20sq cm Yes => #3 RT HEEL - Post Debridement (cm) - Length => 0.9 - Post Debridement (cm) - Width => 1 - Post Debridement (cm) - Depth => 0.1 - Total Square (Post) (cm) => 0.9 - Area of Debridement (cm) - Length => 0.9 - Area of Debridement (cm) - Width => 1 - Total Square (Area) (cm) => 0.9 - Tunneling => No - Undermining/Tunneling => No - Circular Undermining => No - Wound/Ulcer Outcome => Not Healed - Type of Bioengineered Tissue Epifix => Epifix 18mm Disc - Epifix (per sq cm) 4 => - Epifix Mesh (per sq cm) => 3 12/13/23 12/20/23 12/27/23 11:03 10:43 11:05 Wound Center Nurse 2 #4 RT GREAT TOE -Time 11:05 10:45 11:05 -Correct Patient Yes Yes -Correct Side, Site, Position Yes Yes -Correct Procedure Yes Yes -Procedure Performed Yes Yes -Type of Procedure Debridement Debridement -Clinical Debridement Subcutaneous Subcutaneous -Tissue Removed Subcutaneous Subcutaneous -Post Debridement (cm) - Length 0.5 0.5 0.1 -Post Debridement (cm) - Width 0.5 0.5 0.1 -Post Debridement (cm) - Depth 0.1 0.1 0.1 -Total Square (Post) (cm) 0.25 0.25 0.01 -Area of Debridement (cm) - Length 0.5 0.5 0.1 -Area of Debridement (cm) - Width 0.5 0.5 0.1 -Total Square (Area) (cm) 0.25 0.25 0.01 -Tunneling No No No -Undermining/Tunneling No No No -Circular Undermining No No No -Wound/Ulcer Outcome Not Healed Not Healed Not Healed -Ulcer Cleansing Rinsed/ Rinsed/ Irrigated with Irrigated with Saline Saline -Foul Odor after Cleansing No -Bioengineered Tissue No -Bleeding Controlled with Pressure Pressure NA -Treatment Response Procedure Procedure Tolerated Well Tolerated Well -Offloading Yes Yes Yes -Type of Offloading Surgical Shoe Surgical Shoe Surgical Shoe -Debridement - Subq, 1st 20sq cm Yes Yes #3 RT HEEL -Time 11:06 10:46 11:06 -Correct Patient Yes Yes Yes -Correct Side, Site, Position Yes Yes Yes -Correct Procedure Yes Yes Yes -Procedure Performed Yes Yes Yes -Type of Procedure Debridement Debridement Debridement -Clinical Debridement Subcutaneous Subcutaneous Subcutaneous -Tissue Removed Subcutaneous Subcutaneous Subcutaneous -Post Debridement (cm) - Length 1.4 1.0 0.9 -Post Debridement (cm) - Width 1 0.6 1 -Post Debridement (cm) - Depth 0.1 0.1 0.1 -Total Square (Post) (cm) 1.4 0.60 0.9 -Area of Debridement (cm) - Length 1.4 1.0 0.9 -Area of Debridement (cm) - Width 1 0.6 1 -Total Square (Area) (cm) 1.4 0.60 0.9 -Tunneling No No No -Undermining/Tunneling No No No -Circular Undermining No No No -Wound/Ulcer Outcome Not Healed Not Healed Not Healed -Ulcer Cleansing Rinsed/ Rinsed/ Irrigated with Irrigated with Saline Saline -Foul Odor after Cleansing No No -Bioengineered Tissue Yes Yes -Type of Bioengineered Tissue Epifix Epifix 18mm Disc -Expiration Date 06/13/28 08/13/28 07/13/28 -Product Lot Number [id number] -Percent Used 100 100 100 -Lot number of Saline Used [id number] -Bleeding Controlled with Pressure Pressure Pressure -Treatment Response Procedure Procedure Procedure Tolerated Well Tolerated Well Tolerated Well -Offloading Yes Yes No -Type of Offloading Surgical Shoe Surgical Shoe -Debridement - Subq, 1st 20sq cm No No No -Apply Skin Sub - 1st 25 sq cm - Feet 1 1 1 -Epifix (per sq cm) 4 4 -Epifix Mesh (per sq cm) 3 Pain Scale: 0-10 Numeric Is Patient Pain Free? Yes Yes Yes - Nurse 3 - General Ulcer D/C NN Start: 12/13/23 10:21 Freq: Status: Active Protocol: Activity Type Activity Date Activity User E-sign Co-sign Detail Recorded Client Recorded Date Recorded By Document 12/13/23 11:29 [facility] Desktop 12/13/23 11:30 [facility] Document 12/27/23 11:32 wound center 12/27/23 11:34 RB 12/13/23 12/27/23 11:29 11:32 Wound Care Center Nurse 3 #4 RT GREAT TOE -Primary Dressing Covered/Secured with Dry Gauze, Dry Gauze, Secured with Secured with Tape Tape #3 RT HEEL -Primary Dressing Applied Aquacel Extra, Aquacel Extra Mepilex Border -Other Dressing abd pad nurses hat -Primary Dressing Covered/Secured with Dry Gauze & Roll Gauze, Secured with Tape -Aquacel Extra 1 1 -Mepilex Border 1 Right -Tubular Bandage Single Layer Single Layer -Size of Tubigrip Used Size F Size E -Size E ($) 1 -Size F ($) 1 Treatment Response Procedure Tolerated Well Pain Scale: 0-10 Numeric Is Patient Pain Free? Yes Yes - Visit Discharge Discharge Condition Stable Stable Ambulatory Status Ambulatory, Ambulatory Walker Transportation Private Auto Private Auto Accompanied by Medication Reconcilliation completed & No provided to patient/care provider Clinical Summary of Care Provided Yes Assessment/Plan Assessment/Plan (1) Non-pressure chronic ulcer of other part of right foot with fat layer exposed: CODE(S): L97.512 - Non-pressure chronic ulcer of other part of right foot with fat layer exposed (2) Chronic ulcer of right heel with fat layer exposed: CODE(S): L97.412 - Non-pressure chronic ulcer of right heel and midfoot with fat layer exposed (3) Diabetic polyneuropathy: CODE(S): E11.42 - Type 2 diabetes mellitus with diabetic polyneuropathy (4) Type 2 diabetes mellitus with foot ulcer: CODE(S): E11.621 - Type 2 diabetes mellitus with foot ulcer; L97.509 - Non-pressure chronic ulcer of other part of unspecified foot with unspecified severity (5) Hypertension: CODE(S): I10 - Essential (primary) hypertension (6) Lymphedema: CODE(S): I89.0 - Lymphedema, not elsewhere classified (7) Debility: CODE(S): R53.81 - Other malaise (8) Lower extremity edema: CODE(S): R60.0 - Localized edema PLAN: Plan Patient seen and evaluated Ulcerations debrided as noted in the clinical panel above. Right hallux distal tuft ulceration measures 0.1 cm x 0.1 cm x 0.1 cm and right posterior lateral heel ulceration measures 0.9 cm x 1.0 cm x 0.1 cm. No signs of infection. Dakin's wet-to-dry to the Right Hallux. He is to change dressing daily. EpiFix graft #5 was applied to the right heel and dressed with wound veil and anchored with Steri-Strips and dressed with dry sterile dressing/nurse hat. Ulcerations demonstrate reduction in size versus previous visit. Overall continuing to heal well with good granulation tissue Cultures were obtained in wound center for 11/15/2023. Culture of right hallux demonstrates Staph aureus, staph simulans, corynebacterium minutissimum; culture right heel demonstrates Staphylococcus psuedintermediu. Clindamycin 150 mg 3 times daily stop date 12/06/2023. He has completed oral antibiotic. He was approved for EpiFix graft and we will continue to apply. Discussed continuing to offload right foot in surgical shoe. Recommended continued offloading while in bed with foam waffle boot. Patient was urged on this in the past however has not continued to offload while sleeping. He states that offloading is difficult at night with the waffle boot, discussed ensuring the boot is strapped on properly so that does not come off at night. If this remains a difficult issue we will consider different means of offloading. Discussed continued wearing of Tubigrip compression stockings until ulcerations have healed at which time he will change to bilateral compression stocking. Discussed continuing to elevate feet at all times of rest for edema control. Discussed adequate protein intake to continue to aid in wound healing. Florentin supplementation was recommended. Discussed proper diabetic diet in addition to the stated above to ensure adequate wound healing. Patient states that his sugars have been up but not above 200. does state he does eat things that he should not though. He has started taking the instructed supplements for his neuropathy consisting of of complex B vitamin daily, magnesium 250 mg daily, alpha lipoic acid 300 mg daily, and 500 mg glutamine supplement. Discussed continuing to take it and allow time for the nerves to continue repair. Discussed signs and symptoms of infection. Discussed with the patient if he notices redness about the wound margins that continues to spread or moves up the leg, any purulent drainage from the wound site, increasing foul odor from the wound or if he experiences fever greater than 101 degree accompanied by nausea, vomiting, chills, that these are signs of a progressing infection and he should report to the ED for IV antibiotics and further evaluation. He and his voiced understanding of this today. The following work up and care recommendations were made: Dressing: Dakin's wet to dry Right Hallux. Change daily. EpiFix graft, wound veil, Steri-Strips, nurse hat to right heel. May change outer dressings as needed to right heel. Continue Tubigrip compression Wash: Soap and water Right Hallux, Do not get Right Heel wet Tissue growth optimization: Dakin's Right Hallux; EpiFix Right Heel. Offload: Elevating lower extremities at rest and Tubigrip compression. Offload with surgical shoe. Vascular: DP and PT pulses are weakly palpable with adequate capillary fill time. Do not feel that vascular status is affecting wound healing. Edema: Continue elevating lower extremities at all times of rest. Continue wearing Tubigrip compression stocking. Discussed eventual change to a standard prescription compression stocking once wounds have healed. Infection: No signs of infection. Wound cultures were taken given patient's prior history of recurrent bacterial infection at the sites. Pain: May take [id number] Tylenol for discomfort Host factors: DM type II with peripheral polyneuropathy, HTN, morbid obesity, lymphedema I answered all the patient's questions. To return to the wound healing center in 1 week or call sooner if the patient has any questions or concerns.
[2024-01-03 10:44] VITALS: TEMP 36.6
--- NOTE | 2024-01-03 11:00 | PCM.WC.PN ---
History of Present Illness Date of Service: 01/03/24 Chief Complaint: Right heel ulcer and right hallux ulcer History of Wound: 68 year old male presents to the wound center for evaluation of his right heal ulcer. It started as a a pressure ulcer in February 2022 when he he was in TCU and it healed. It then became a blister right before his Left TKR surgery. He had his left knee replaced 07/14/22 at [facility]. 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 He also has a history of diabetes type II with peripheral polyneuropathy, HTN, lymphedema, hypercholesterolemia and PE that he is on Xerelto. Wound culture obtained on 08/30/22 which are positive for VRE, Kocuria kristinae and Corynebacterium striatum. He will completed the Linezolid. Wound culture obtained 06/20/23 which was positive for Staphylococcus pseudintermediu, Pseudomonas aeruginosa, Corynebacterium minutissiumum, and Anaerobic cocci. He was started on Levaquin and Flagyl. Foot xray 09/27/22 - Osteopenia with diffuse osteoarthritic changes. Diffuse soft tissue swelling with ossification of the distal Achilles tendon. No acute abnormality or evidence of erosive changes. Did undergo updated radiograph of the right foot 11/08/2023 with no noted changes from previous x-ray. This is a recurring ulceration to both distal medial tuft of the right hallux and posterior lateral heel. He states both sites had scabbed up and he was previously discharged however scabs have later broken down with re-ulceration. Wound care -currently applying Joelle daily and is offloading and surgical shoe to the right foot. He denies any fever, chills, nausea and vomiting. Denies further complaints. Subjective Subjective This is a 68-year-old male who presents to the wound care center for follow-up of right hallux distal tuft ulceration and right posterior lateral calcaneal ulceration. Patient does report history of recurring ulcerations of these 2 specific sites over the last several years. He is currently on doxycycline for his knee. States he has left graft intact at the heel and is changing dressings as needed. He continues to offload heel while sleeping. States he reopened his Right hallux but is unsure of how he did this. Denies constitutional symptoms. Denies further complaints. Objective Data Objective Data Vital Signs: Vital Signs Temp Pulse Resp BP O2 Del Method 97.8 F 80 20 H 182/96 H Room Air 01/03/24 10:44 12/27/23 10:30 12/27/23 10:30 12/27/23 10:30 12/13/23 10:21 Oxygen Delivery Method Room Air Physical Exam Const alert, oriented x3 and no apparent distress General Appearance: cooperative HEENT normocephalic Eyes General Eye: normal appearance of both eyes Neck General: normal visual inspection Lymph Lymphatic: no lymphadenopathy noted and no lymphedema noted Resp normal respiratory effort Cardio regular rate and regular rhythm Extremity normal capillary refill and no calf tenderness Extremity Narrative: Right lower extremity: Vascular: DP and PT pulses weakly palpable. CFT less than 5 seconds to the digits. Normal temperature gradient. Hair growth is absent to digits/foot. Neurologic: Gross sensation intact. Decreased light touch sensation. Absent protective sensation tested with 5.07g Union Zen monofilament. Lack of protective sensation consistent with diabetic peripheral polyneuropathy Dermatologic: There is varicosities noted to the lower extremity with subsequent edema about foot and LIANNA ankle. There is hyperkeratosis of the distal hallux tuft rim with ulceration with healthy granular tissue. There is a posterior lateral heel ulceration with mixed fibrogranular wound base and eschar/hyperkeratosis at the wound margin. No signs of infection. Musculoskeletal: Muscle strength 5 of 5 age-appropriate. Decreased range of motion of the ankle joint in dorsiflexion with the knee extended without pain or crepitus. Decreased range of motion of the first metatarsophalangeal joint without pain or crepitus. There is hammertoe deformity of digits 1 through 5. Skin no rashes or lesions noted and no jaundice General Skin Exam: venous stasis and dermatitis Neuro moves all extremities Debridement Note Debridement Note Wound debrided: Right foot x 2 Laterality: Right Wound Grade/Stage: Gomez stage I Type of Debridement: Excisional debridement Anesthesia Used: 5% Lidocaine Gel Depth: Down to and including healthy tissue and in the subcutaneous layer Percentage of wound debrided: 100 Instrument Used: #15 blade Tissue Removed: Fibrous, devitalized subcutaneous, biofilm, slough Severity: Fat Layer Exposed Amount of bleeding with debridement: Mild Bleeding Controlled with: Compression and gauze Patient tolerated procedure: Patient tolerated procedure well Post-Debridement Measurements and Additional Note: Post-Debridement Measurements/Treatment WC - Nurse 1 - General Ulcer Assessment Start: 12/13/23 10:21 Freq: Status: Active Protocol: NELL Activity Type Activity Date Activity User E-sign Co-sign Detail Recorded Client Recorded Date Recorded By Document 12/13/23 10:21 KW Desktop 12/13/23 10:35 KW Document 12/20/23 10:27 DL Desktop 12/20/23 10:36 DL Document 12/27/23 10:30 DL [email or web address] 12/27/23 10:40 DL Document 01/03/24 10:44 DL [email or web address] 01/03/24 10:54 DL 12/13/23 12/20/23 12/27/23 10:21 10:27 10:30 - Today's Visit Information Type of service Follow-up Visit Follow-up Visit Follow-up Visit (Physician/MAIL CLERK (Physician/MAIL CLERK (Physician/MAIL CLERK ) ) ) Arrival Mode Ambulatory, Ambulatory, Ambulatory, Walker Walker Walker Transfer Assistance None None Patient Identification Verified (Name & Yes Yes Yes ) Patient Requires Transmission-Based No No Precautions Finger Stick Blood Sugar(mg/dl) (if 121 121 indicated): Blood Sugar Stated by Stated by Patient Patient Vital Signs Temperature (97.8 F-99.1 F) 97.0 F L 98.2 F 98 F Temperature Source Temporal Temporal Temporal Pulse Rate (60-100) 85 80 Pulse Location Monitor Monitor Monitor Respiratory Rate (12-18) 18 22 H 20 H Respiratory rate source Observation Observation Oxygen Delivery Method Room Air Blood Pressure (90/60-120/80) 168/89 H 182/96 H Blood Pressure Mean (mm Hg) 115 124 Source Monitor Monitor Monitor Position Semi-Fowlers Blood Pressure Location Left Arm History Since Last Visit- (Skip if this is Patient's initial visit) Have you changed medications since your No No No last visit? Any new allergies or adverse reactions No No No Had a fall/change in ADL's that may No No No increase risk of falls Signs or symptoms of abuse and/or No No No neglect since last visit Have you been in the hospital since your No No No last visit? Has dressing in place as prescribed Yes Yes Yes Has compression in place as prescribed Yes Yes Has offloadiing in place as prescribed Yes Yes Experienced any changes in pain level or No No management Left Footwear Regular Shoe Regular Shoe Right Footwear Surgical Shoe Surgical Shoe Surgical Shoe with pressure with pressure with pressure relief insole relief insole relief insole Pain Scale: 0-10 Numeric Is Patient Pain Free? Yes Yes Yes 01/03/24 10:44 WC - Today's Visit Information Type of service Follow-up Visit (Physician/MAIL CLERK ) Arrival Mode Ambulatory, Walker Transfer Assistance None Patient Identification Verified (Name & Yes ) Patient Requires Transmission-Based No Precautions Finger Stick Blood Sugar(mg/dl) (if indicated): Blood Sugar Vital Signs Temperature (97.8 F-99.1 F) 97.8 F Temperature Source Temporal Pulse Rate (60-100) Pulse Location Respiratory Rate (12-18) Respiratory rate source Oxygen Delivery Method Blood Pressure (90/60-120/80) Blood Pressure Mean (mm Hg) Source Position Blood Pressure Location History Since Last Visit- (Skip if this is Patient's initial visit) Have you changed medications since your No last visit? Any new allergies or adverse reactions No Had a fall/change in ADL's that may No increase risk of falls Signs or symptoms of abuse and/or No neglect since last visit Have you been in the hospital since your No last visit? Has dressing in place as prescribed Yes Has compression in place as prescribed Yes Has offloadiing in place as prescribed Yes Experienced any changes in pain level or No management Left Footwear Right Footwear Removable Cast Walker/Walking Boot Pain Scale: 0-10 Numeric Is Patient Pain Free? Yes - Nurse 1 - General Ulcer Measurement Start: 12/13/23 10:21 Freq: Status: Active Protocol: Activity Type Activity Date Activity User E-sign Co-sign Detail Recorded Client Recorded Date Recorded By Document 12/13/23 10:21 KW Desktop 12/13/23 10:35 KW Document 12/20/23 10:27 DL Desktop 12/20/23 10:36 DL Document 12/27/23 10:30 DL [email or web address] 12/27/23 10:40 DL Document 01/03/24 10:44 DL [email or web address] 01/03/24 10:54 DL 12/13/23 12/20/23 12/27/23 10:21 10:27 10:30 Wound Center Nurse 1 #4 RT GREAT TOE -Current Size (cm) - Length 0.3 0.1 0.6 -Current Size (cm) - Width 0.2 0.1 0.6 -Current Size (cm) - Depth 0.1 0.1 0.1 -Total Square Cm 0.06 0.01 0.36 -Photo Taken Yes -Exudate Amt Small None Present Small -Exudate Type Serosanguineous -Wound Margin Thickened Thickened -Granulation Amt Large (67-100%) Small (1-33%) Small (1-33%) -Granulation Quality [place] Red Red -Necrosis Amt None Present (0 Small (1-33%) %) -Necrotic Tissue Type Eschar -Structure Exposed N/A N/A -Texture (Lianna-wound Skin Appearance) Assessed Scarring Localized Edema ,Scarring -Moisture (Lianna-wound Skin Appearance) Assessed Dry/Scaly No Abnormality -Color (Lianna-wound Skin Appearance) Assessed Hemosiderin Hemosiderin Staining Staining -Temperature (Lianna-wound Skin No Abnormality No Abnormality No Abnormality Appearance) (Pt Warm) (Pt Warm) (Pt Warm) -Tenderness on Palpation (Lianna-wound No Skin Appearance) -Ulcer Cleansing Soap and Water Soap and Water Soap and Water -Foul Odor after Cleansing No No No -Anesthetic Used 5% Lidocaine 5% Lidocaine 5% Lidocaine Gel Gel Gel #3 RT HEEL -Current Size (cm) - Length 0.8 1 0.7 -Current Size (cm) - Width 1 0.6 0.9 -Current Size (cm) - Depth 0.1 0.1 0.1 -Total Square Cm 0.8 0.6 0.63 -Photo Taken Yes -Exudate Amt Medium Medium -Exudate Type Serosanguineous Serosanguineous -Wound Margin Indistinct, Non Distinct, Distinct, -Visible Outline Outline Attached Attached -Granulation Amt Small (1-33%) Medium (34-66%) -Granulation Quality [place] Pale,[place] -Necrosis Amt Medium (34-66%) Medium (34-66%) -Necrotic Tissue Type Adherent Slough Adherent Slough -Structure Exposed N/A N/A -Texture (Lianna-wound Skin Appearance) Assessed Scarring Scarring -Moisture (Lianna-wound Skin Appearance) Assessed Dry/Scaly Maceration -Color (Lianna-wound Skin Appearance) Assessed Hemosiderin No Abnormality Staining -Temperature (Lianna-wound Skin No Abnormality No Abnormality No Abnormality Appearance) (Pt Warm) (Pt Warm) (Pt Warm) -Tenderness on Palpation (Lianna-wound No No No Skin Appearance) -Ulcer Cleansing Soap and Water Soap and Water Soap and Water -Foul Odor after Cleansing No No No -Anesthetic Used 5% Lidocaine 5% Lidocaine 5% Lidocaine Gel Gel Gel -Wound Comment(s) scabbed over Right Calf (cm) 48 48.4 Right Ankle (cm) 27 26.5 01/03/24 10:44 Wound Center Nurse 1 #4 RT GREAT TOE -Current Size (cm) - Length 0.1 -Current Size (cm) - Width 0.1 -Current Size (cm) - Depth 0.1 -Total Square Cm 0.01 -Photo Taken -Exudate Amt Small -Exudate Type Sanguineous -Wound Margin Thickened -Granulation Amt None Present (0 %) -Granulation Quality -Necrosis Amt Large (67-100%) -Necrotic Tissue Type Eschar -Structure Exposed N/A -Texture (Lianna-wound Skin Appearance) Localized Edema ,Scarring -Moisture (Lianna-wound Skin Appearance) No Abnormality, Dry/Scaly -Color (Lianna-wound Skin Appearance) No Abnormality -Temperature (Lianna-wound Skin No Abnormality Appearance) (Pt Warm) -Tenderness on Palpation (Lianna-wound Skin Appearance) -Ulcer Cleansing Soap and Water -Foul Odor after Cleansing No -Anesthetic Used 5% Lidocaine Gel #3 RT HEEL -Current Size (cm) - Length 0.8 -Current Size (cm) - Width 0.9 -Current Size (cm) - Depth 0.2 -Total Square Cm 0.72 -Photo Taken -Exudate Amt Small -Exudate Type Serosanguineous -Wound Margin Thickened -Granulation Amt None Present (0 %) -Granulation Quality Pale,[place] -Necrosis Amt Small (1-33%) -Necrotic Tissue Type Adherent Slough -Structure Exposed N/A -Texture (Lianna-wound Skin Appearance) Scarring -Moisture (Lianna-wound Skin Appearance) Maceration -Color (Lianna-wound Skin Appearance) Hemosiderin Staining -Temperature (Lianna-wound Skin No Abnormality Appearance) (Pt Warm) -Tenderness on Palpation (Lianna-wound No Skin Appearance) -Ulcer Cleansing Soap and Water -Foul Odor after Cleansing No -Anesthetic Used 5% Lidocaine Gel -Wound Comment(s) Right Calf (cm) 47.1 Right Ankle (cm) 28.8 WC - Nurse 2 - General Ulcer CM Notes Start: 12/13/23 10:21 Freq: Status: Active Protocol: Activity Type Activity Date Activity User E-sign Co-sign Detail Recorded Client Recorded Date Recorded By Document 12/13/23 11:03 BMF Desktop 12/13/23 11:19 BMF Document 12/20/23 10:43 DS Desktop 12/20/23 10:53 DS Edit Result 12/20/23 10:43 DS (1) [id number] 12/24/23 13:38 BMF Document 12/27/23 11:05 BMF [email or web address] 12/27/23 11:16 BMF Edit Result 12/27/23 11:05 BMF (2) [id number] 12/27/23 12:10 DL (1) #3 RT HEEL - Apply Skin Sub - 1st 25 sq cm - Feet => 1 (2) #4 RT GREAT TOE - Correct Patient Yes => - Correct Side, Site, Position Yes => - Correct Procedure Yes => - Procedure Performed Yes => - Type of Procedure Debridement => - Clinical Debridement Subcutaneous => - Tissue Removed Subcutaneous => - Post Debridement (cm) - Length => 0.1 - Post Debridement (cm) - Width => 0.1 - Post Debridement (cm) - Depth => 0.1 - Total Square (Post) (cm) => 0.01 - Area of Debridement (cm) - Length => 0.1 - Area of Debridement (cm) - Width => 0.1 - Total Square (Area) (cm) => 0.01 - Ulcer Cleansing Rinsed/Irrigated => with Saline => - Foul Odor after Cleansing No => - Bioengineered Tissue No => - Bleeding Controlled with Pressure => NA - Treatment Response Procedure => Tolerated Well => - Debridement - Subq, 1st 20sq cm Yes => #3 RT HEEL - Post Debridement (cm) - Length => 0.9 - Post Debridement (cm) - Width => 1 - Post Debridement (cm) - Depth => 0.1 - Total Square (Post) (cm) => 0.9 - Area of Debridement (cm) - Length => 0.9 - Area of Debridement (cm) - Width => 1 - Total Square (Area) (cm) => 0.9 - Tunneling => No - Undermining/Tunneling => No - Circular Undermining => No - Wound/Ulcer Outcome => Not Healed - Type of Bioengineered Tissue Epifix => Epifix 18mm Disc - Epifix (per sq cm) 4 => - Epifix Mesh (per sq cm) => 3 12/13/23 12/20/23 12/27/23 11:03 10:43 11:05 Wound Center Nurse 2 #4 RT GREAT TOE -Time 11:05 10:45 11:05 -Correct Patient Yes Yes -Correct Side, Site, Position Yes Yes -Correct Procedure Yes Yes -Procedure Performed Yes Yes -Type of Procedure Debridement Debridement -Clinical Debridement Subcutaneous Subcutaneous -Tissue Removed Subcutaneous Subcutaneous -Post Debridement (cm) - Length 0.5 0.5 0.1 -Post Debridement (cm) - Width 0.5 0.5 0.1 -Post Debridement (cm) - Depth 0.1 0.1 0.1 -Total Square (Post) (cm) 0.25 0.25 0.01 -Area of Debridement (cm) - Length 0.5 0.5 0.1 -Area of Debridement (cm) - Width 0.5 0.5 0.1 -Total Square (Area) (cm) 0.25 0.25 0.01 -Tunneling No No No -Undermining/Tunneling No No No -Circular Undermining No No No -Wound/Ulcer Outcome Not Healed Not Healed Not Healed -Ulcer Cleansing Rinsed/ Rinsed/ Irrigated with Irrigated with Saline Saline -Foul Odor after Cleansing No -Bioengineered Tissue No -Bleeding Controlled with Pressure Pressure NA -Treatment Response Procedure Procedure Tolerated Well Tolerated Well -Offloading Yes Yes Yes -Type of Offloading Surgical Shoe Surgical Shoe Surgical Shoe -Debridement - Subq, 1st 20sq cm Yes Yes #3 RT HEEL -Time 11:06 10:46 11:06 -Correct Patient Yes Yes Yes -Correct Side, Site, Position Yes Yes Yes -Correct Procedure Yes Yes Yes -Procedure Performed Yes Yes Yes -Type of Procedure Debridement Debridement Debridement -Clinical Debridement Subcutaneous Subcutaneous Subcutaneous -Tissue Removed Subcutaneous Subcutaneous Subcutaneous -Post Debridement (cm) - Length 1.4 1.0 0.9 -Post Debridement (cm) - Width 1 0.6 1 -Post Debridement (cm) - Depth 0.1 0.1 0.1 -Total Square (Post) (cm) 1.4 0.60 0.9 -Area of Debridement (cm) - Length 1.4 1.0 0.9 -Area of Debridement (cm) - Width 1 0.6 1 -Total Square (Area) (cm) 1.4 0.60 0.9 -Tunneling No No No -Undermining/Tunneling No No No -Circular Undermining No No No -Wound/Ulcer Outcome Not Healed Not Healed Not Healed -Ulcer Cleansing Rinsed/ Rinsed/ Irrigated with Irrigated with Saline Saline -Foul Odor after Cleansing No No -Bioengineered Tissue Yes Yes -Type of Bioengineered Tissue Epifix Epifix 18mm Disc -Expiration Date 06/13/28 08/13/28 07/13/28 -Product Lot Number [id number] -Percent Used 100 100 100 -Lot number of Saline Used [id number] -Bleeding Controlled with Pressure Pressure Pressure -Treatment Response Procedure Procedure Procedure Tolerated Well Tolerated Well Tolerated Well -Offloading Yes Yes No -Type of Offloading Surgical Shoe Surgical Shoe -Debridement - Subq, 1st 20sq cm No No No -Apply Skin Sub - 1st 25 sq cm - Feet 1 1 1 -Epifix (per sq cm) 4 4 -Epifix Mesh (per sq cm) 3 Pain Scale: 0-10 Numeric Is Patient Pain Free? Yes Yes Yes WC - Nurse 3 - General Ulcer D/C NN Start: 12/13/23 10:21 Freq: Status: Active Protocol: Activity Type Activity Date Activity User E-sign Co-sign Detail Recorded Client Recorded Date Recorded By Document 12/13/23 11:29 [facility] Desktop 12/13/23 11:30 BM Document 12/27/23 11:32 RB wound center 12/27/23 11:34 RB 12/13/23 12/27/23 11:29 11:32 Wound Care Center Nurse 3 #4 RT GREAT TOE -Primary Dressing Covered/Secured with Dry Gauze, Dry Gauze, Secured with Secured with Tape Tape #3 RT HEEL -Primary Dressing Applied Aquacel Extra, Aquacel Extra Mepilex Border -Other Dressing abd pad nurses hat -Primary Dressing Covered/Secured with Dry Gauze & Roll Gauze, Secured with Tape -Aquacel Extra 1 1 -Mepilex Border 1 Right -Tubular Bandage Single Layer Single Layer -Size of Tubigrip Used Size F Size E -Size E ($) 1 -Size F ($) 1 Treatment Response Procedure Tolerated Well Pain Scale: 0-10 Numeric Is Patient Pain Free? Yes Yes WC - Visit Discharge Discharge Condition Stable Stable Ambulatory Status Ambulatory, Ambulatory Walker Transportation Private Auto Private Auto Accompanied by Medication Reconcilliation completed & No provided to patient/care provider Clinical Summary of Care Provided Yes Assessment/Plan Assessment/Plan (1) Non-pressure chronic ulcer of other part of right foot with fat layer exposed: CODE(S): L97.512 - Non-pressure chronic ulcer of other part of right foot with fat layer exposed (2) Chronic ulcer of right heel with fat layer exposed: CODE(S): L97.412 - Non-pressure chronic ulcer of right heel and midfoot with fat layer exposed (3) Diabetic polyneuropathy: CODE(S): E11.42 - Type 2 diabetes mellitus with diabetic polyneuropathy (4) Type 2 diabetes mellitus with foot ulcer: CODE(S): E11.621 - Type 2 diabetes mellitus with foot ulcer; L97.509 - Non-pressure chronic ulcer of other part of unspecified foot with unspecified severity (5) Hypertension: CODE(S): I10 - Essential (primary) hypertension (6) Lymphedema: CODE(S): I89.0 - Lymphedema, not elsewhere classified (7) Debility: CODE(S): R53.81 - Other malaise (8) Lower extremity edema: CODE(S): R60.0 - Localized edema PLAN: Plan Patient seen and evaluated Ulcerations debrided as noted in the clinical panel above. Right hallux distal tuft ulceration measures 1.4 cm x 2.0 cm x 0.1 cm and right posterior lateral heel ulceration measures 0.9 cm x 0.7 cm x 0.1 cm. No signs of infection. Joelle to the Right Hallux. He is to change dressing daily. EpiFix graft #6 was applied to the right heel and dressed with wound veil and anchored with Steri-Strips and dressed with dry sterile dressing. Ulcerations demonstrate reduction in size versus previous visit. Overall continuing to heal well with good granulation tissue Right hallux reopened due to hemorrhagic blister Cultures were obtained in wound center for 11/15/2023. Culture of right hallux demonstrates Staph aureus, staph simulans, corynebacterium minutissimum; culture right heel demonstrates Staphylococcus psuedintermediu. Clindamycin 150 mg 3 times daily stop date 12/06/2023. He has completed oral antibiotic. He was approved for EpiFix graft and we will continue to apply. Discussed continuing to offload right foot in surgical shoe. Recommended continued offloading while in bed with foam waffle boot. Patient was urged on this in the past however has not continued to offload while sleeping. He states that offloading is difficult at night with the waffle boot, discussed ensuring the boot is strapped on properly so that does not come off at night. If this remains a difficult issue we will consider different means of offloading. Discussed continued wearing of Tubigrip compression stockings until ulcerations have healed at which time he will change to bilateral compression stocking. Discussed continuing to elevate feet at all times of rest for edema control. Discussed adequate protein intake to continue to aid in wound healing. Florentin supplementation was recommended. Discussed proper diabetic diet in addition to the stated above to ensure adequate wound healing. Patient states that his sugars have been up but not above 200. does state he does eat things that he should not though. He has started taking the instructed supplements for his neuropathy consisting of of complex B vitamin daily, magnesium 250 mg daily, alpha lipoic acid 300 mg daily, and 500 mg glutamine supplement. Discussed continuing to take it and allow time for the nerves to continue repair. Discussed signs and symptoms of infection. Discussed with the patient if he notices redness about the wound margins that continues to spread or moves up the leg, any purulent drainage from the wound site, increasing foul odor from the wound or if he experiences fever greater than 101 degree accompanied by nausea, vomiting, chills, that these are signs of a progressing infection and he should report to the ED for IV antibiotics and further evaluation. He and his voiced understanding of this today. The following work up and care recommendations were made: Dressing: Dakin's wash to right Hallux, Joelle to wound base right hallux. Change daily. EpiFix graft, wound veil, Steri-Strips, nurse hat to right heel. May change outer dressings as needed to right heel. Continue Tubigrip compression Wash: Soap and water Right Hallux, Do not get Right Heel wet Tissue growth optimization: Joelle right Hallux; EpiFix Right Heel. Offload: Elevating lower extremities at rest and Tubigrip compression. Offload with surgical shoe. Vascular: DP and PT pulses are weakly palpable with adequate capillary fill time. Do not feel that vascular status is affecting wound healing. Edema: Continue elevating lower extremities at all times of rest. Continue wearing Tubigrip compression stocking. Discussed eventual change to a standard prescription compression stocking once wounds have healed. Infection: No signs of infection. Wound cultures were taken given patient's prior history of recurrent bacterial infection at the sites. Pain: May take [id number] Tylenol for discomfort Host factors: DM type II with peripheral polyneuropathy, HTN, morbid obesity, lymphedema I answered all the patient's questions. To return to the wound healing center in 1 week or call sooner if the patient has any questions or concerns.
[2024-01-10 11:05] VITALS: BP 148/82; PULSE 68; RESP 20; TEMP 36.6
--- NOTE | 2024-01-10 12:17 | PN.PCM_ITS ---
History of Present Illness Date of Service: 01/10/24 Chief Complaint: Right heel ulcer and right hallux ulcer History of Wound: 68 year old male presents to the wound center for evaluation of his right heal ulcer. It started as a a pressure ulcer in February 2022 when he he was in TCU and it healed. It then became a blister right before his Left TKR surgery. He had his left knee replaced 07/14/22 at [facility]. 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 He also has a history of diabetes type II with peripheral polyneuropathy, HTN, lymphedema, hypercholesterolemia and PE that he is on Xerelto. Wound culture obtained on 08/30/22 which are positive for VRE, Kocuria kristinae and Corynebacterium striatum. He will completed the Linezolid. Wound culture obtained 06/20/23 which was positive for Staphylococcus pseudintermediu, Pseudomonas aeruginosa, Corynebacterium minutissiumum, and Anaerobic cocci. He was started on Levaquin and Flagyl. Foot xray 09/27/22 - Osteopenia with diffuse osteoarthritic changes. Diffuse soft tissue swelling with ossification of the distal Achilles tendon. No acute abnormality or evidence of erosive changes. Did undergo updated radiograph of the right foot 11/08/2023 with no noted changes from previous x-ray. This is a recurring ulceration to both distal medial tuft of the right hallux and posterior lateral heel. He states both sites had scabbed up and he was previously discharged however scabs have later broken down with re-ulceration. Wound care -currently applying Magalis daily and is offloading and surgical shoe to the right foot. He denies any fever, chills, nausea and vomiting. Denies further complaints. Subjective Subjective This is a 68-year-old male who presents to the wound care center for follow-up of right hallux distal tuft ulceration and right posterior lateral calcaneal ulceration. Patient does report history of recurring ulcerations of these 2 specific sites over the last several years. He is currently on doxycycline for his knee. States he has left graft intact at the heel and is changing dressings as needed. He continues to offload heel while sleeping. Continues to dress Right Hallux daily. Denies constitutional symptoms. Denies further complaints. Objective Data Objective Data Vital Signs: Vital Signs Temp Pulse Resp BP O2 Del Method 97.8 F 68 20 H 148/82 H Room Air 01/10/24 11:05 01/10/24 11:05 01/10/24 11:05 01/10/24 11:05 12/13/23 10:21 Oxygen Delivery Method Room Air Physical Exam Const alert, oriented x3 and no apparent distress General Appearance: cooperative HEENT normocephalic Eyes General Eye: normal appearance of both eyes Neck General: normal visual inspection Lymph Lymphatic: no lymphadenopathy noted and no lymphedema noted Resp normal respiratory effort Cardio regular rate and regular rhythm Extremity normal capillary refill and no calf tenderness Extremity Narrative: Right lower extremity: Vascular: DP and PT pulses weakly palpable. CFT less than 5 seconds to the digits. Normal temperature gradient. Hair growth is absent to digits/foot. Neurologic: Gross sensation intact. Decreased light touch sensation. Absent protective sensation tested with 5.07g Alder Zen monofilament. Lack of protective sensation consistent with diabetic peripheral polyneuropathy Dermatologic: There is varicosities noted to the lower extremity with subsequent edema about foot and LIANNA ankle. There is hyperkeratosis of the distal hallux tuft rim with ulceration with healthy granular tissue. There is a posterior lateral heel ulceration with mixed fibrogranular wound base and eschar/hyperkeratosis at the wound margin. No signs of infection. Musculoskeletal: Muscle strength 5 of 5 age-appropriate. Decreased range of motion of the ankle joint in dorsiflexion with the knee extended without pain or crepitus. Decreased range of motion of the first metatarsophalangeal joint without pain or crepitus. There is hammertoe deformity of digits 1 through 5. Skin no rashes or lesions noted and no jaundice General Skin Exam: venous stasis and dermatitis Neuro moves all extremities Debridement Note Debridement Note Wound debrided: Right posterior lateral heel Laterality: Right Wound Grade/Stage: Gomez stage I Type of Debridement: Excisional debridement Anesthesia Used: 5% Lidocaine Gel Depth: Down to and including healthy tissue and in the subcutaneous layer Percentage of wound debrided: 100 Instrument Used: #15 blade Tissue Removed: Fibrous, devitalized subcutaneous, biofilm, slough Severity: Fat Layer Exposed Amount of bleeding with debridement: Mild Bleeding Controlled with: Compression and gauze Patient tolerated procedure: Patient tolerated procedure well Post-Debridement Measurements and Additional Note: Post-Debridement Measurements/Treatment WC - Nurse 1 - General Ulcer Assessment Start: 12/13/23 10:21 Freq: Status: Active Protocol: NELL Activity Type Activity Date Activity User E-sign Co-sign Detail Recorded Client Recorded Date Recorded By Document 12/13/23 10:21 KW Desktop 12/13/23 10:35 KW Document 12/20/23 10:27 DL Desktop 12/20/23 10:36 DL Document 12/27/23 10:30 DL [email or web address] 12/27/23 10:40 DL Document 01/03/24 10:44 DL [email or web address] 01/03/24 10:54 DL Document 01/10/24 11:05 DL [email or web address] 01/10/24 11:14 DL 12/13/23 12/20/23 12/27/23 10:21 10:27 10:30 - Today's Visit Information Type of service Follow-up Visit Follow-up Visit Follow-up Visit (Physician/REAL TIME TRADER (Physician/REAL TIME TRADER (Physician/REAL TIME TRADER ) ) ) Arrival Mode Ambulatory, Ambulatory, Ambulatory, Walker Walker Walker Transfer Assistance None None Patient Identification Verified (Name & Yes Yes Yes ) Patient Requires Transmission-Based No No Precautions Finger Stick Blood Sugar(mg/dl) (if 121 121 indicated): Blood Sugar Stated by Stated by Patient Patient Vital Signs Temperature (97.8 F-99.1 F) 97.0 F L 98.2 F 98 F Temperature Source Temporal Temporal Temporal Pulse Rate (60-100) 85 80 Pulse Location Monitor Monitor Monitor Respiratory Rate (12-18) 18 22 H 20 H Respiratory rate source Observation Observation Oxygen Delivery Method Room Air Blood Pressure (90/60-120/80) 168/89 H 182/96 H Blood Pressure Mean (mm Hg) 115 124 Source Monitor Monitor Monitor Position Semi-Fowlers Blood Pressure Location Left Arm History Since Last Visit- (Skip if this is Patient's initial visit) Have you changed medications since your No No No last visit? Any new allergies or adverse reactions No No No Had a fall/change in ADL's that may No No No increase risk of falls Signs or symptoms of abuse and/or No No No neglect since last visit Have you been in the hospital since your No No No last visit? Has dressing in place as prescribed Yes Yes Yes Has compression in place as prescribed Yes Yes Has offloadiing in place as prescribed Yes Yes Experienced any changes in pain level or No No management Left Footwear Regular Shoe Regular Shoe Right Footwear Surgical Shoe Surgical Shoe Surgical Shoe with pressure with pressure with pressure relief insole relief insole relief insole Pain Scale: 0-10 Numeric Is Patient Pain Free? Yes Yes Yes 01/03/24 01/10/24 10:44 11:05 WC - Today's Visit Information Type of service Follow-up Visit Follow-up Visit (Physician/REAL TIME TRADER (Physician/REAL TIME TRADER ) ) Arrival Mode Ambulatory, Ambulatory Walker Transfer Assistance None None Patient Identification Verified (Name & Yes Yes ) Patient Requires Transmission-Based No No Precautions Finger Stick Blood Sugar(mg/dl) (if indicated): Blood Sugar Vital Signs Temperature (97.8 F-99.1 F) 97.8 F 97.8 F Temperature Source Temporal Temporal Pulse Rate (60-100) 68 Pulse Location Monitor Respiratory Rate (12-18) 20 H Respiratory rate source Observation Oxygen Delivery Method Blood Pressure (90/60-120/80) 148/82 H Blood Pressure Mean (mm Hg) 104 Source Monitor Position Blood Pressure Location History Since Last Visit- (Skip if this is Patient's initial visit) Have you changed medications since your No No last visit? Any new allergies or adverse reactions No No Had a fall/change in ADL's that may No No increase risk of falls Signs or symptoms of abuse and/or No No neglect since last visit Have you been in the hospital since your No No last visit? Has dressing in place as prescribed Yes Yes Has compression in place as prescribed Yes Yes Has offloadiing in place as prescribed Yes Yes Experienced any changes in pain level or No No management Left Footwear Right Footwear Removable Cast Walker/Walking Boot Pain Scale: 0-10 Numeric Is Patient Pain Free? Yes Yes - Nurse 1 - General Ulcer Measurement Start: 12/13/23 10:21 Freq: Status: Active Protocol: Activity Type Activity Date Activity User E-sign Co-sign Detail Recorded Client Recorded Date Recorded By Document 12/13/23 10:21 KW Desktop 12/13/23 10:35 KW Document 12/20/23 10:27 DL Desktop 12/20/23 10:36 DL Document 12/27/23 10:30 DL [email or web address] 12/27/23 10:40 DL Document 01/03/24 10:44 DL [email or web address] 01/03/24 10:54 DL Document 01/10/24 11:05 DL 05.22.25.01/10/24 11:14 DL 12/13/23 12/20/23 12/27/23 10:21 10:27 10:30 Wound Center Nurse 1 #4 RT GREAT TOE -Current Size (cm) - Length 0.3 0.1 0.6 -Current Size (cm) - Width 0.2 0.1 0.6 -Current Size (cm) - Depth 0.1 0.1 0.1 -Total Square Cm 0.06 0.01 0.36 -Photo Taken Yes -Exudate Amt Small None Present Small -Exudate Type Serosanguineous -Wound Margin Thickened Thickened -Granulation Amt Large (67-100%) Small (1-33%) Small (1-33%) -Granulation Quality [place] Red Red -Necrosis Amt None Present (0 Small (1-33%) %) -Necrotic Tissue Type Eschar -Structure Exposed N/A N/A -Texture (Lianna-wound Skin Appearance) Assessed Scarring Localized Edema ,Scarring -Moisture (Lianna-wound Skin Appearance) Assessed Dry/Scaly No Abnormality -Color (Lianna-wound Skin Appearance) Assessed Hemosiderin Hemosiderin Staining Staining -Temperature (Lianna-wound Skin No Abnormality No Abnormality No Abnormality Appearance) (Pt Warm) (Pt Warm) (Pt Warm) -Tenderness on Palpation (Lianna-wound No Skin Appearance) -Ulcer Cleansing Soap and Water Soap and Water Soap and Water -Foul Odor after Cleansing No No No -Anesthetic Used 5% Lidocaine 5% Lidocaine 5% Lidocaine Gel Gel Gel #3 RT HEEL -Current Size (cm) - Length 0.8 1 0.7 -Current Size (cm) - Width 1 0.6 0.9 -Current Size (cm) - Depth 0.1 0.1 0.1 -Total Square Cm 0.8 0.6 0.63 -Photo Taken Yes -Exudate Amt Medium Medium -Exudate Type Serosanguineous Serosanguineous -Wound Margin Indistinct, Non Distinct, Distinct, -Visible Outline Outline Attached Attached -Granulation Amt Small (1-33%) Medium (34-66%) -Granulation Quality [place] Pale,[place] -Necrosis Amt Medium (34-66%) Medium (34-66%) -Necrotic Tissue Type Adherent Slough Adherent Slough -Structure Exposed N/A N/A -Texture (Lianna-wound Skin Appearance) Assessed Scarring Scarring -Moisture (Lianna-wound Skin Appearance) Assessed Dry/Scaly Maceration -Color (Lianna-wound Skin Appearance) Assessed Hemosiderin No Abnormality Staining -Temperature (Lianna-wound Skin No Abnormality No Abnormality No Abnormality Appearance) (Pt Warm) (Pt Warm) (Pt Warm) -Tenderness on Palpation (Lianna-wound No No No Skin Appearance) -Ulcer Cleansing Soap and Water Soap and Water Soap and Water -Foul Odor after Cleansing No No No -Anesthetic Used 5% Lidocaine 5% Lidocaine 5% Lidocaine Gel Gel Gel -Wound Comment(s) scabbed over Right Calf (cm) 48 48.4 Right Ankle (cm) 27 26.5 01/03/24 01/10/24 10:44 11:05 Wound Center Nurse 1 #4 RT GREAT TOE -Current Size (cm) - Length 0.1 1.3 -Current Size (cm) - Width 0.1 1.5 -Current Size (cm) - Depth 0.1 0.1 -Total Square Cm 0.01 1.95 -Photo Taken -Exudate Amt Small Small -Exudate Type Sanguineous Serosanguineous -Wound Margin Thickened Distinct, Outline Attached -Granulation Amt None Present (0 Medium (34-66%) %) -Granulation Quality Red -Necrosis Amt Large (67-100%) Medium (34-66%) -Necrotic Tissue Type Eschar Adherent Slough -Structure Exposed N/A N/A -Texture (Lianna-wound Skin Appearance) Localized Edema Scarring ,Scarring -Moisture (Lianna-wound Skin Appearance) No Abnormality, No Abnormality Dry/Scaly -Color (Lianna-wound Skin Appearance) No Abnormality No Abnormality -Temperature (Lianna-wound Skin No Abnormality No Abnormality Appearance) (Pt Warm) (Pt Warm) -Tenderness on Palpation (Lianna-wound No Skin Appearance) -Ulcer Cleansing Soap and Water Soap and Water -Foul Odor after Cleansing No No -Anesthetic Used 5% Lidocaine 5% Lidocaine Gel Gel #3 RT HEEL -Current Size (cm) - Length 0.8 0.1 -Current Size (cm) - Width 0.9 0.1 -Current Size (cm) - Depth 0.2 0.1 -Total Square Cm 0.72 0.01 -Photo Taken -Exudate Amt Small None Present -Exudate Type Serosanguineous -Wound Margin Thickened Distinct, Outline Attached -Granulation Amt None Present (0 None Present (0 %) %) -Granulation Quality Pale,[place] -Necrosis Amt Small (1-33%) Large (67-100%) -Necrotic Tissue Type Adherent Slough Eschar -Structure Exposed N/A N/A -Texture (Lianna-wound Skin Appearance) Scarring Scarring -Moisture (Lianna-wound Skin Appearance) Maceration No Abnormality -Color (Lianna-wound Skin Appearance) Hemosiderin No Abnormality Staining -Temperature (Lianna-wound Skin No Abnormality No Abnormality Appearance) (Pt Warm) (Pt Warm) -Tenderness on Palpation (Lianna-wound No Skin Appearance) -Ulcer Cleansing Soap and Water Soap and Water -Foul Odor after Cleansing No No -Anesthetic Used 5% Lidocaine 5% Lidocaine Gel Gel -Wound Comment(s) Right Calf (cm) 47.1 Right Ankle (cm) 28.8 WC - Nurse 2 - General Ulcer CM Notes Start: 12/13/23 10:21 Freq: Status: Active Protocol: Activity Type Activity Date Activity User E-sign Co-sign Detail Recorded Client Recorded Date Recorded By Document 12/13/23 11:03 BMF Desktop 12/13/23 11:19 BMF Document 12/20/23 10:43 DS Desktop 12/20/23 10:53 DS Edit Result 12/20/23 10:43 DS (1) [id number] 12/24/23 13:38 BMF Document 12/27/23 11:05 BMF [email or web address] 12/27/23 11:16 BMF Edit Result 12/27/23 11:05 BMF (2) [id number] 12/27/23 12:10 DL Document 01/03/24 11:16 [facility] [id number] 01/03/24 11:29 BMF Document 01/10/24 11:30 [facility] 01/10/24 11:42 BMF (1) #3 RT HEEL - Apply Skin Sub - 1st 25 sq cm - Feet => 1 (2) #4 RT GREAT TOE - Correct Patient Yes => - Correct Side, Site, Position Yes => - Correct Procedure Yes => - Procedure Performed Yes => - Type of Procedure Debridement => - Clinical Debridement Subcutaneous => - Tissue Removed Subcutaneous => - Post Debridement (cm) - Length => 0.1 - Post Debridement (cm) - Width => 0.1 - Post Debridement (cm) - Depth => 0.1 - Total Square (Post) (cm) => 0.01 - Area of Debridement (cm) - Length => 0.1 - Area of Debridement (cm) - Width => 0.1 - Total Square (Area) (cm) => 0.01 - Ulcer Cleansing Rinsed/Irrigated => with Saline => - Foul Odor after Cleansing No => - Bioengineered Tissue No => - Bleeding Controlled with Pressure => NA - Treatment Response Procedure => Tolerated Well => - Debridement - Subq, 1st 20sq cm Yes => #3 RT HEEL - Post Debridement (cm) - Length => 0.9 - Post Debridement (cm) - Width => 1 - Post Debridement (cm) - Depth => 0.1 - Total Square (Post) (cm) => 0.9 - Area of Debridement (cm) - Length => 0.9 - Area of Debridement (cm) - Width => 1 - Total Square (Area) (cm) => 0.9 - Tunneling => No - Undermining/Tunneling => No - Circular Undermining => No - Wound/Ulcer Outcome => Not Healed - Type of Bioengineered Tissue Epifix => Epifix 18mm Disc - Epifix (per sq cm) 4 => - Epifix Mesh (per sq cm) => 3 12/13/23 12/20/23 12/27/23 11:03 10:43 11:05 Wound Center Nurse 2 #4 RT GREAT TOE -Time 11:05 10:45 11:05 -Correct Patient Yes Yes -Correct Side, Site, Position Yes Yes -Correct Procedure Yes Yes -Procedure Performed Yes Yes -Type of Procedure Debridement Debridement -Clinical Debridement Subcutaneous Subcutaneous -Tissue Removed Subcutaneous Subcutaneous -Post Debridement (cm) - Length 0.5 0.5 0.1 -Post Debridement (cm) - Width 0.5 0.5 0.1 -Post Debridement (cm) - Depth 0.1 0.1 0.1 -Total Square (Post) (cm) 0.25 0.25 0.01 -Area of Debridement (cm) - Length 0.5 0.5 0.1 -Area of Debridement (cm) - Width 0.5 0.5 0.1 -Total Square (Area) (cm) 0.25 0.25 0.01 -Tunneling No No No -Undermining/Tunneling No No No -Circular Undermining No No No -Wound/Ulcer Outcome Not Healed Not Healed Not Healed -Ulcer Cleansing Rinsed/ Rinsed/ Irrigated with Irrigated with Saline Saline -Foul Odor after Cleansing No -Bioengineered Tissue No -Bleeding Controlled with Pressure Pressure NA -Treatment Response Procedure Procedure Tolerated Well Tolerated Well -Offloading Yes Yes Yes -Type of Offloading Surgical Shoe Surgical Shoe Surgical Shoe -Debridement - Subq, 1st 20sq cm Yes Yes #3 RT HEEL -Time 11:06 10:46 11:06 -Correct Patient Yes Yes Yes -Correct Side, Site, Position Yes Yes Yes -Correct Procedure Yes Yes Yes -Procedure Performed Yes Yes Yes -Type of Procedure Debridement Debridement Debridement -Clinical Debridement Subcutaneous Subcutaneous Subcutaneous -Tissue Removed Subcutaneous Subcutaneous Subcutaneous -Post Debridement (cm) - Length 1.4 1.0 0.9 -Post Debridement (cm) - Width 1 0.6 1 -Post Debridement (cm) - Depth 0.1 0.1 0.1 -Total Square (Post) (cm) 1.4 0.60 0.9 -Area of Debridement (cm) - Length 1.4 1.0 0.9 -Area of Debridement (cm) - Width 1 0.6 1 -Total Square (Area) (cm) 1.4 0.60 0.9 -Tunneling No No No -Undermining/Tunneling No No No -Circular Undermining No No No -Wound/Ulcer Outcome Not Healed Not Healed Not Healed -Ulcer Cleansing Rinsed/ Rinsed/ Irrigated with Irrigated with Saline Saline -Foul Odor after Cleansing No No -Bioengineered Tissue Yes Yes -Type of Bioengineered Tissue Epifix Epifix 18mm Disc -Expiration Date 06/13/28 08/13/28 07/13/28 -Product Lot Number [id number] -Percent Used 100 100 100 -Lot number of Saline Used [id number] -Bleeding Controlled with Pressure Pressure Pressure -Treatment Response Procedure Procedure Procedure Tolerated Well Tolerated Well Tolerated Well -Offloading Yes Yes No -Type of Offloading Surgical Shoe Surgical Shoe -Debridement - Subq, 1st 20sq cm No No No -Apply Skin Sub - 1st 25 sq cm - Feet 1 1 1 -Epifix (per sq cm) 4 4 -Epifix 18mm Disc -Epifix Mesh (per sq cm) 3 Pain Scale: 0-10 Numeric Is Patient Pain Free? Yes Yes Yes 01/03/24 01/10/24 11:16 11:30 Wound Center Nurse 2 #4 RT GREAT TOE -Time 11:16 11:32 -Correct Patient Yes Yes -Correct Side, Site, Position Yes Yes -Correct Procedure Yes Yes -Procedure Performed Yes Yes -Type of Procedure Debridement Debridement -Clinical Debridement Subcutaneous Subcutaneous -Tissue Removed Subcutaneous Subcutaneous -Post Debridement (cm) - Length 1.4 1.5 -Post Debridement (cm) - Width 2 1.7 -Post Debridement (cm) - Depth 0.1 0.1 -Total Square (Post) (cm) 2.8 2.55 -Area of Debridement (cm) - Length 1.4 1.5 -Area of Debridement (cm) - Width 2 1.7 -Total Square (Area) (cm) 2.8 2.55 -Tunneling No No -Undermining/Tunneling No No -Circular Undermining No No -Wound/Ulcer Outcome Not Healed Not Healed -Ulcer Cleansing Rinsed/ Rinsed/ Irrigated with Irrigated with Saline Saline -Foul Odor after Cleansing No No -Bioengineered Tissue No No -Bleeding Controlled with Pressure Pressure -Treatment Response Procedure Procedure Tolerated Well Tolerated Well -Offloading Yes Yes -Type of Offloading Surgical Shoe Surgical Shoe -Debridement - Subq, 1st 20sq cm Yes Yes #3 RT HEEL -Time 11:16 11:32 -Correct Patient Yes Yes -Correct Side, Site, Position Yes Yes -Correct Procedure Yes Yes -Procedure Performed Yes Yes -Type of Procedure Debridement Debridement -Clinical Debridement Subcutaneous Subcutaneous -Tissue Removed Subcutaneous Subcutaneous -Post Debridement (cm) - Length 0.9 0.8 -Post Debridement (cm) - Width 0.7 0.9 -Post Debridement (cm) - Depth 0.1 0.1 -Total Square (Post) (cm) 0.63 0.72 -Area of Debridement (cm) - Length 0.9 0.8 -Area of Debridement (cm) - Width 0.7 0.9 -Total Square (Area) (cm) 0.63 0.72 -Tunneling No No -Undermining/Tunneling No No -Circular Undermining No No -Wound/Ulcer Outcome Not Healed Not Healed -Ulcer Cleansing Rinsed/ Rinsed/ Irrigated with Irrigated with Saline Saline -Foul Odor after Cleansing No No -Bioengineered Tissue Yes Yes -Type of Bioengineered Tissue Epifix 18mm Epifix 18mm Disc Disc -Expiration Date 07/13/28 07/13/28 -Product Lot Number [id number] -Percent Used 100 100 -Lot number of Saline Used [id number] -Bleeding Controlled with Pressure Pressure -Treatment Response Procedure Procedure Tolerated Well Tolerated Well -Offloading Yes Yes -Type of Offloading Surgical Shoe Surgical Shoe -Debridement - Subq, 1st 20sq cm No No -Apply Skin Sub - 1st 25 sq cm - Feet 1 1 -Epifix (per sq cm) -Epifix 18mm Disc 3 3 -Epifix Mesh (per sq cm) Pain Scale: 0-10 Numeric Is Patient Pain Free? Yes Yes WC - Nurse 3 - General Ulcer D/C NN Start: 12/13/23 10:21 Freq: Status: Active Protocol: Activity Type Activity Date Activity User E-sign Co-sign Detail Recorded Client Recorded Date Recorded By Document 12/13/23 11:29 BMF Desktop 12/13/23 11:30 BMF Document 12/27/23 11:32 RB wound center 12/27/23 11:34 RB Document 01/03/24 11:32 DL [email or web address] 01/03/24 11:42 DL Edit Result 01/03/24 11:32 DL (1) [email or web address] 01/03/24 11:42 DL Document 01/10/24 11:45 DL [email or web address] 01/10/24 11:48 DL (1) #3 RT HEEL - Primary Dressing Applied Aquacel Extra => - Other Dressing epifix => epifix/aquacel ex - Aquacel Extra 1 => 12/13/23 12/27/23 01/03/24 11:29 11:32 11:32 Wound Care Center Nurse 3 #4 RT GREAT TOE -Ulcer Cleansing Rinsed/ Irrigated with Saline -Foul Odor after Cleansing No -Primary Dressing Applied Promogran Magalis Matter -Other Dressing -Primary Dressing Covered/Secured with Dry Gauze, Dry Gauze, Dry Gauze & Secured with Secured with Roll Gauze, Tape Tape Secured with Tape -Promogran Magalis Matter 2 #3 RT HEEL -Foul Odor after Cleansing No -Primary Dressing Applied Aquacel Extra, Aquacel Extra Mepilex Border -Other Dressing abd pad nurses epifix/aquacel hat ex -Primary Dressing Covered/Secured with Dry Gauze & Dry Gauze & Roll Gauze, Roll Gauze, Secured with Secured with Tape Tape -Aquacel Extra 1 1 -Mepilex Border 1 Right -Tubular Bandage Single Layer Single Layer -Size of Tubigrip Used Size F Size E -Size E ($) 1 -Size F ($) 1 -Other tubigrip Treatment Response Procedure Procedure Tolerated Well Tolerated Well Pain Scale: 0-10 Numeric Is Patient Pain Free? Yes Yes Yes WC - Visit Discharge Discharge Condition Stable Stable Stable Ambulatory Status Ambulatory, Ambulatory Ambulatory, Walker Walker Transportation Private Auto Private Auto Private Auto Accompanied by Medication Reconcilliation completed & No provided to patient/care provider Clinical Summary of Care Provided Yes Notes: Facility Type Home Health Orders Sent Yes 01/10/24 11:45 Wound Care Center Nurse 3 #4 RT GREAT TOE -Ulcer Cleansing Rinsed/ Irrigated with Saline -Foul Odor after Cleansing No -Primary Dressing Applied -Other Dressing magalis -Primary Dressing Covered/Secured with Dry Gauze & Roll Gauze, Secured with Tape -Promogran Magalis Matter #3 RT HEEL -Foul Odor after Cleansing No -Primary Dressing Applied -Other Dressing epifix/aquacel ex -Primary Dressing Covered/Secured with Dry Gauze & Roll Gauze, Secured with Tape -Aquacel Extra -Mepilex Border Right -Tubular Bandage Single Layer -Size of Tubigrip Used Size E -Size E ($) 1 -Size F ($) -Other Treatment Response Procedure Tolerated Well Pain Scale: 0-10 Numeric Is Patient Pain Free? Yes WC - Visit Discharge Discharge Condition Stable Ambulatory Status Ambulatory, Walker Transportation Private Auto Accompanied by Medication Reconcilliation completed & provided to patient/care provider Clinical Summary of Care Provided Notes: Dressing applied per Maverick lau. Facility Type Orders Sent Additional Wound Wound debrided: Right hallux Laterality: Right Wound Grade/Stage: Gomez stage I Type of Debridement: Excisional debridement Anesthesia Used: 5% Lidocaine Gel Depth: Down to and including healthy tissue and in the subcutaneous layer Percentage of wound debrided: 100 Instrument Used: #15 blade Tissue Removed: Fibrous, devitalized subcutaneous, biofilm, slough Severity: Fat Layer Exposed Amount of bleeding with debridement: Mild Bleeding Controlled with: Compression and gauze Patient tolerated procedure: Patient tolerated procedure well Assessment/Plan Assessment/Plan (1) Non-pressure chronic ulcer of other part of right foot with fat layer exposed: CODE(S): L97.512 - Non-pressure chronic ulcer of other part of right foot with fat layer exposed (2) Chronic ulcer of right heel with fat layer exposed: CODE(S): L97.412 - Non-pressure chronic ulcer of right heel and midfoot with fat layer exposed (3) Diabetic polyneuropathy: CODE(S): E11.42 - Type 2 diabetes mellitus with diabetic polyneuropathy (4) Type 2 diabetes mellitus with foot ulcer: CODE(S): E11.621 - Type 2 diabetes mellitus with foot ulcer; L97.509 - Non-pressure chronic ulcer of other part of unspecified foot with unspecified severity (5) Hypertension: CODE(S): I10 - Essential (primary) hypertension (6) Lymphedema: CODE(S): I89.0 - Lymphedema, not elsewhere classified (7) Debility: CODE(S): R53.81 - Other malaise (8) Lower extremity edema: CODE(S): R60.0 - Localized edema PLAN: Plan Patient seen and evaluated Ulcerations debrided as noted in the clinical panel above. Right hallux distal tuft ulceration measures 1.5 cm x 1.7 cm x 0.1 cm and right posterior lateral heel ulceration measures 0.8 cm x 0.9 cm x 0.1 cm. No signs of infection. Magalis to the Right Hallux. He is to change dressing daily. EpiFix graft #7 was applied to the right heel and dressed with wound veil and anchored with Steri-Strips and dressed with dry sterile dressing. Ulcerations demonstrate reduction in size versus previous visit. Overall continuing to heal well with good granulation tissue. Cultures were obtained in wound center for 11/15/2023. Culture of right hallux demonstrates Staph aureus, staph simulans, corynebacterium minutissimum; culture right heel demonstrates Staphylococcus psuedintermediu. Clindamycin 150 mg 3 times daily stop date 12/06/2023. He has completed oral antibiotic. He was approved for EpiFix graft and we will continue to apply. Discussed continuing to offload right foot in surgical shoe. Recommended continued offloading while in bed with foam waffle boot. Patient was urged on this in the past however has not continued to offload while sleeping. He states that offloading is difficult at night with the waffle boot, discussed ensuring the boot is strapped on properly so that does not come off at night. If this remains a difficult issue we will consider different means of offloading. Discussed continued wearing of Tubigrip compression stockings until ulcerations have healed at which time he will change to bilateral compression stocking. Discussed continuing to elevate feet at all times of rest for edema control. Discussed adequate protein intake to continue to aid in wound healing. Florentin supplementation was recommended. Discussed proper diabetic diet in addition to the stated above to ensure adequate wound healing. Patient states that his sugars have been up but not above 200. does state he does eat things that he should not though. He has continued taking the instructed supplements for his neuropathy consisting of of complex B vitamin daily, magnesium 250 mg daily, alpha lipoic acid 300 mg daily, and 500 mg glutamine supplement. Discussed continuing to take it and allow time for the nerves to continue repair. Discussed signs and symptoms of infection. Discussed with the patient if he notices redness about the wound margins that continues to spread or moves up the leg, any purulent drainage from the wound site, increasing foul odor from the wound or if he experiences fever greater than 101 degree accompanied by nausea, vomiting, chills, that these are signs of a progressing infection and he should report to the ED for IV antibiotics and further evaluation. He and his voiced understanding of this today. The following work up and care recommendations were made: Dressing: Dakin's wash to right Hallux, Magalis to wound base right hallux. Change daily. EpiFix graft, wound veil, Steri-Strips, nurse hat to right heel. May change outer dressings as needed to right heel. Continue Tubigrip c ompression Wash: Soap and water Right Hallux, Do not get Right Heel wet Tissue growth optimization: Magalis right Hallux; EpiFix Right Heel. Offload: Elevating lower extremities at rest and Tubigrip compression. Offload with surgical shoe. Vascular: DP and PT pulses are weakly palpable with adequate capillary fill time. Do not feel that vascular status is affecting wound healing. Edema: Continue elevating lower extremities at all times of rest. Continue wearing Tubigrip compression stocking. Discussed eventual change to a standard prescription compression stocking once wounds have healed. Infection: No signs of infection. Wound cultures were taken given patient's prior history of recurrent bacterial infection at the sites. Pain: May take [id number] Tylenol for discomfort Host factors: DM type II with peripheral polyneuropathy, HTN, morbid obesity, lymphedema I answered all the patient's questions. To return to the wound healing center in 1 week or call sooner if the patient has any questions or concerns.
== END 2024-01-11 23:59 | disposition home or self-care (01) ==
LOC: WC 10:45
PROVIDERS: PCP Internal Medicine; Referring Provider Internal Medicine; Visit Provider Student in an Organized Health Care Education/Training Program
DX: E11.621 Type 2 diabetes mellitus with foot ulcer (principal); L97.412 Non-pressure chronic ulcer of right heel and midfoot with fat layer exposed; L97.512 Non-pressure chronic ulcer of other part of right foot with fat layer exposed; E11.42 Type 2 diabetes mellitus with diabetic polyneuropathy; R53.81 Other malaise; I10 Essential (primary) hypertension; E78.00 Pure hypercholesterolemia, unspecified; Z96.652 Presence of left artificial knee joint; R60.0 Localized edema; I89.0 Lymphedema, not elsewhere classified; Z86.711 Personal history of pulmonary embolism; Z79.01 Long term (current) use of anticoagulants
CPT/HCPCS: 11042; 15275; Q4186

== ENCOUNTER 2024-02-07 10:45 | Outpatient (RCR) | payer MEDICARE, BC, SELFPAY ==
[2024-01-12 02:27] VITALS: BP 109/90; PULSE 84; RESP 22; TEMP 36.5
[2024-01-17 11:15] VITALS: BP 162/94; PULSE 76; RESP 18; TEMP 37.3
--- NOTE | 2024-01-17 12:49 | PN.PCM_ITS ---
History of Present Illness Date of Service: 01/17/24 Chief Complaint: Right heel ulcer and right hallux ulcer History of Wound: 67 year old male presents to the wound center for evaluation of his right heal ulcer. It started as a a pressure ulcer in February 2022 when he he was in TCU and it healed. It then became a blister right before his Left TKR surgery. He had his left knee replaced 07/14/22 at [facility]. 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 He also has a history of diabetes type II with peripheral polyneuropathy, HTN, lymphedema, hypercholesterolemia and PE that he is on Xerelto. Wound culture obtained on 08/30/22 which are positive for VRE, Kocuria kristinae and Corynebacterium striatum. He will completed the Linezolid. Wound culture obtained 06/20/23 which was positive for Staphylococcus pseudintermediu, Pseudomonas aeruginosa, Corynebacterium minutissiumum, and Anaerobic cocci. He was started on Levaquin and Flagyl. Foot xray 09/27/22 - Osteopenia with diffuse osteoarthritic changes. Diffuse soft tissue swelling with ossification of the distal Achilles tendon. No acute abnormality or evidence of erosive changes. Did undergo updated radiograph of the right foot 11/08/2023 with no noted changes from previous x-ray. This is a recurring ulceration to both distal medial tuft of the right hallux and posterior lateral heel. He states both sites had scabbed up and he was previously discharged however scabs have later broken down with re-ulceration. Wound care -currently applying Joelle daily and is offloading and surgical shoe to the right foot. He denies any fever, chills, nausea and vomiting. Denies further complaints. Subjective Subjective This is a 68-year-old male who presents to the wound care center for follow-up of right hallux distal tuft ulceration and right posterior lateral calcaneal ulceration. Patient does report history of recurring ulcerations of these 2 specific sites over the last several years. He is currently on doxycycline for his knee. States he has left graft intact at the heel and is changing dressings as needed. He continues to offload heel while sleeping. Continues to dress Right Hallux daily. States the toe wound is improving. Denies constitutional symptoms. Denies further complaints. Objective Data Objective Data Vital Signs: Vital Signs Temp Pulse Resp BP O2 Del Method 99.1 F 76 18 162/94 H Room Air 01/17/24 11:15 01/17/24 11:15 01/17/24 11:15 01/17/24 11:15 01/17/24 11:15 Oxygen Delivery Method Room Air Physical Exam Const alert, oriented x3, no apparent distress and well nourished General Appearance: cooperative Nutritional Appearance: morbidly obese HEENT normocephalic Eyes General Eye: normal appearance of both eyes Neck General: normal visual inspection Lymph Lymphatic: lymphedema Resp normal respiratory effort Cardio regular rate and regular rhythm Extremity normal capillary refill, no joint enlargement and no calf tenderness Extremity Narrative: Right lower extremity: Vascular: DP and PT pulses weakly palpable. CFT less than 5 seconds to the digits. Normal temperature gradient. Hair growth is absent to digits/foot. Neurologic: Gross sensation intact. Decreased light touch sensation. Absent protective sensation tested with 5.07g Yreka Zen monofilament. Lack of protective sensation consistent with diabetic peripheral polyneuropathy Dermatologic: There is varicosities noted to the lower extremity with subsequent edema about foot and LIANNA ankle. There is hyperkeratosis of the distal hallux tuft rim with ulceration with healthy granular tissue. There is a posterior lateral heel ulceration with mixed fibrogranular wound base and eschar/hyperkeratosis at the wound margin. No signs of infection. Musculoskeletal: Muscle strength 5 of 5 age-appropriate. Decreased range of motion of the ankle joint in dorsiflexion with the knee extended without pain or crepitus. Decreased range of motion of the first metatarsophalangeal joint without pain or crepitus. There is hammertoe deformity of digits 1 through 5. Skin no rashes or lesions noted, skin turgor normal and no jaundice General Skin Exam: venous stasis and dermatitis Neuro moves all extremities Debridement Note Debridement Note Wound debrided: Right posterior lateral heel Laterality: Right Wound Grade/Stage: Gomez stage I Type of Debridement: Excisional debridement Anesthesia Used: 5% Lidocaine Gel Depth: Down to and including healthy tissue and in the subcutaneous layer Percentage of wound debrided: 100 Instrument Used: #15 blade Tissue Removed: Fibrous, devitalized subcutaneous, biofilm, slough Severity: Fat Layer Exposed Amount of bleeding with debridement: Mild Bleeding Controlled with: Compression and gauze Patient tolerated procedure: Patient tolerated procedure well Post-Debridement Measurements and Additional Note: Post-Debridement Measurements/Treatment - Nurse 1 - General Ulcer Assessment Start: 01/17/24 11:15 Freq: Status: Active Protocol: NELL Activity Type Activity Date Activity User E-sign Co-sign Detail Recorded Client Recorded Date Recorded By Document 01/17/24 11:15 wound center 01/17/24 11:27 01/17/24 11:15 WC - Today's Visit Information Type of service Follow-up Visit (Physician/EXPERIMENTAL PLAST[employer] FABRICATOR ) Arrival Mode Ambulatory, Walker Patient Identification Verified (Name & Yes ) Vital Signs Temperature (97.8 F-99.1 F) 99.1 F Temperature Source Temporal Pulse Rate (60-100) 76 Pulse Location Monitor Respiratory Rate (12-18) 18 Respiratory rate source Observation Oxygen Delivery Method Room Air Blood Pressure (90/60-120/80) 162/94 H Blood Pressure Mean (mm Hg) 116 Source Monitor Position Semi-Fowlers Blood Pressure Location Left Arm History Since Last Visit- (Skip if this is Patient's initial visit) Have you changed medications since your No last visit? Any new allergies or adverse reactions No Had a fall/change in ADL's that may No increase risk of falls Signs or symptoms of abuse and/or No neglect since last visit Have you been in the hospital since your No last visit? Has dressing in place as prescribed Yes Has compression in place as prescribed Yes Has offloadiing in place as prescribed N/A Experienced any changes in pain level or No management Left Footwear Regular Shoe Right Footwear Surgical Shoe with pressure relief insole Pain Scale: 0-10 Numeric Is Patient Pain Free? Yes Lois Nurse 1 - General Ulcer Measurement Start: 01/17/24 11:15 Freq: Status: Active Protocol: Activity Type Activity Date Activity User E-sign Co-sign Detail Recorded Client Recorded Date Recorded By Document 01/17/24 11:15 wound center 01/17/24 11:27 01/17/24 11:15 Wound Center Nurse 1 #4 RT GREAT TOE -Current Size (cm) - Length 1.2 -Current Size (cm) - Width 1.8 -Current Size (cm) - Depth 0.1 -Total Square Cm 2.16 -Date of Last Picture (Recall this 01/17/24 field) -Exudate Amt Medium -Exudate Type Serosanguineous -Wound Margin Distinct, Outline Attached -Granulation Amt Large (67-100%) -Granulation Quality Red -Necrosis Amt Small (1-33%) -Necrotic Tissue Type Adherent Slough -Texture (Lianna-wound Skin Appearance) Assessed -Moisture (Lianna-wound Skin Appearance) Assessed,Dry/ Scaly -Color (Lianna-wound Skin Appearance) Assessed -Temperature (Lianna-wound Skin No Abnormality Appearance) (Pt Warm) -Tenderness on Palpation (Lianna-wound No Skin Appearance) -Ulcer Cleansing Soap and Water -Foul Odor after Cleansing No -Anesthetic Used 5% Lidocaine Gel #3 RT HEEL -Current Size (cm) - Length 0.9 -Current Size (cm) - Width 1 -Current Size (cm) - Depth 0.1 -Total Square Cm 0.9 -Date of Last Picture (Recall this 01/17/24 field) -Exudate Amt Small -Exudate Type Serosanguineous -Wound Margin Distinct, Outline Attached -Necrosis Amt Large (67-100%) -Necrotic Tissue Type Adherent Slough -Texture (Lianna-wound Skin Appearance) Assessed -Moisture (Lianna-wound Skin Appearance) Assessed -Temperature (Lianna-wound Skin No Abnormality Appearance) (Pt Warm) -Ulcer Cleansing Soap and Water -Foul Odor after Cleansing No -Anesthetic Used 5% Lidocaine Gel Right Calf (cm) 46 Right Ankle (cm) 29 WC - Nurse 2 - General Ulcer CM Notes Start: 01/17/24 11:15 Freq: Status: Active Protocol: Activity Type Activity Date Activity User E-sign Co-sign Detail Recorded Client Recorded Date Recorded By Document 01/17/24 11:55 [facility] 01/17/24 12:06 [facility] 01/17/24 11:55 Wound Center Nurse 2 #4 RT GREAT TOE -Time 11:55 -Correct Patient Yes -Correct Side, Site, Position Yes -Correct Procedure Yes -Procedure Performed Yes -Type of Procedure Debridement -Clinical Debridement Subcutaneous -Tissue Removed Subcutaneous -Post Debridement (cm) - Length 1.5 -Post Debridement (cm) - Width 1.5 -Post Debridement (cm) - Depth 0.1 -Total Square (Post) (cm) 2.25 -Area of Debridement (cm) - Length 1.5 -Area of Debridement (cm) - Width 1.5 -Total Square (Area) (cm) 2.25 -Tunneling No -Undermining/Tunneling No -Circular Undermining No -Wound/Ulcer Outcome Not Healed -Ulcer Cleansing Rinsed/ Irrigated with Saline -Foul Odor after Cleansing No -Bioengineered Tissue No -Bleeding Controlled with Pressure -Treatment Response Procedure Tolerated Well -Offloading Yes -Type of Offloading Surgical Shoe -Debridement - Subq, 1st 20sq cm Yes #3 RT HEEL -Time 11:56 -Correct Patient Yes -Correct Side, Site, Position Yes -Correct Procedure Yes -Procedure Performed Yes -Type of Procedure Debridement -Clinical Debridement Subcutaneous -Tissue Removed Subcutaneous -Post Debridement (cm) - Length 0.5 -Post Debridement (cm) - Width 0.4 -Post Debridement (cm) - Depth 0.1 -Total Square (Post) (cm) 0.20 -Area of Debridement (cm) - Length 0.5 -Area of Debridement (cm) - Width 0.4 -Total Square (Area) (cm) 0.20 -Tunneling No -Undermining/Tunneling No -Circular Undermining No -Wound/Ulcer Outcome Not Healed -Ulcer Cleansing Rinsed/ Irrigated with Saline -Foul Odor after Cleansing No -Bioengineered Tissue No -Expiration Date 08/13/28 -Product Lot Number [id number] -Percent Used 100 -Lot number of Saline Used [id number] -Bleeding Controlled with Pressure -Treatment Response Procedure Tolerated Well -Offloading Yes -Type of Offloading Surgical Shoe -Debridement - Subq, 1st 20sq cm No -Apply Skin Sub - 1st 25 sq cm - Feet 1 -Epifix 18mm Disc 3 Pain Scale: 0-10 Numeric Is Patient Pain Free? Yes WC - Nurse 3 - General Ulcer D/C NN Start: 01/17/24 11:15 Freq: Status: Active Protocol: Activity Type Activity Date Activity User E-sign Co-sign Detail Recorded Client Recorded Date Recorded By Document 01/17/24 12:14 [facility] wound center 01/17/24 12:16 [facility] 01/17/24 12:14 Wound Care Center Nurse 3 #4 RT GREAT TOE -Other Dressing aquacel extra -Primary Dressing Covered/Secured with Dry Gauze,Dry Gauze & Roll Gauze,Secured with Tape #3 RT HEEL -Other Dressing aquacel extra -Primary Dressing Covered/Secured with Dry Gauze,Dry Gauze & Roll Gauze,Secured with Tape Right -Tubular Bandage Single Layer -Size of Tubigrip Used Size F -Size F ($) 1 Treatment Response Procedure Tolerated Well Pain Scale: 0-10 Numeric Is Patient Pain Free? Yes WC - Visit Discharge Discharge Condition Stable Ambulatory Status Ambulatory Transportation Private Auto Medication Reconcilliation completed & No provided to patient/care provider Clinical Summary of Care Provided Yes Additional Wound Wound debrided: Right hallux Laterality: Right Wound Grade/Stage: Gomez stage I Type of Debridement: Excisional debridement Anesthesia Used: 5% Lidocaine Gel Depth: Down to and including healthy tissue and in the subcutaneous layer Percentage of wound debrided: 100 Instrument Used: #15 blade Tissue Removed: Fibrous, devitalized subcutaneous, biofilm, slough Severity: Fat Layer Exposed Amount of bleeding with debridement: Mild Bleeding Controlled with: Compression and gauze Patient tolerated procedure: Patient tolerated procedure well Assessment/Plan Assessment/Plan (1) Non-pressure chronic ulcer of other part of right foot with fat layer exposed: CODE(S): L97.512 - Non-pressure chronic ulcer of other part of right foot with fat layer exposed (2) Chronic ulcer of right heel with fat layer exposed: CODE(S): L97.412 - Non-pressure chronic ulcer of right heel and midfoot with fat layer exposed (3) Acute painful diabetic polyneuropathy: CODE(S): E11.42 - Type 2 diabetes mellitus with diabetic polyneuropathy (4) Type 2 diabetes mellitus with foot ulcer: CODE(S): E11.621 - Type 2 diabetes mellitus with foot ulcer; L97.509 - Non-pressure chronic ulcer of other part of unspecified foot with unspecified severity (5) Lymphedema: CODE(S): I89.0 - Lymphedema, not elsewhere classified (6) Lower extremity edema: CODE(S): R60.0 - Localized edema (7) Hypertension: CODE(S): I10 - Essential (primary) hypertension (8) Debility: CODE(S): R53.81 - Other malaise PLAN: Plan Patient seen and evaluated Ulcerations debrided as noted in the clinical panel above. Right hallux distal tuft ulceration measures 1.5 cm x 1.5 cm x 0.1 cm and right posterior lateral heel ulceration measures 0.5 cm x 0.4 cm x 0.1 cm. No signs of infection. Joelle to the Right Hallux. He is to change dressing daily. EpiFix graft #8 was applied to the right heel and dressed with wound veil and anchored with Steri-Strips and dressed with dry sterile dressing. Ulcerations demonstrate reduction in size versus previous visit. Overall continuing to heal well with good granulation tissue. Cultures were obtained in wound center for 11/15/2023. Culture of right hallux demonstrates Staph aureus, staph simulans, corynebacterium minutissimum; culture right heel demonstrates Staphylococcus psuedintermediu. Clindamycin 150 mg 3 times daily stop date 12/06/2023. He has completed oral antibiotic. He was approved for EpiFix graft and we will continue to apply. Discussed continuing to offload right foot in surgical shoe. Recommended continued offloading while in bed with foam waffle boot. Patient was urged on this in the past however has not continued to offload while sleeping. He states that offloading is difficult at night with the waffle boot, discussed ensuring the boot is strapped on properly so that does not come off at night. If this remains a difficult issue we will consider different means of offloading. Discussed continued wearing of Tubigrip compression stockings until ulcerations have healed at which time he will change to bilateral compression stocking. Discussed continuing to elevate feet at all times of rest for edema control. Discussed adequate protein intake to continue to aid in wound healing. Florentin supplementation was recommended. Discussed proper diabetic diet in addition to the stated above to ensure adequate wound healing. Patient states that his sugars have been up but not above 200. does state he does eat things that he should not though. He has continued taking the instructed supplements for his neuropathy consisting of of complex B vitamin daily, magnesium 250 mg daily, alpha lipoic acid 300 mg daily, and 500 mg glutamine supplement. Discussed continuing to take it and allow time for the nerves to continue repair. Discussed signs and symptoms of infection. Discussed with the patient if he notices redness about the wound margins that continues to spread or moves up the leg, any purulent drainage from the wound site, increasing foul odor from the wound or if he experiences fever greater than 101 degree accompanied by nausea, vomiting, chills, that these are signs of a progressing infection and he should report to the ED for IV antibiotics and further evaluation. He and his voiced understanding of this today. The following work up and care recommendations were made: Dressing: Dakin's wash to right Hallux, Joelle to wound base right hallux. Change daily. EpiFix graft, wound veil, Steri-Strips, nurse hat to right heel. May change outer dressings as needed to right heel. Continue Tubigrip compression Wash: Soap and water Right Hallux, Do not get Right Heel wet Tissue growth optimization: Joelle right Hallux; EpiFix Right Heel. Offload: Elevating lower extremities at rest and Tubigrip compression. Offload with surgical shoe. Vascular: DP and PT pulses are weakly palpable with adequate capillary fill time. Do not feel that vascular status is affecting wound healing. Edema: Continue elevating lower extremities at all times of rest. Continue wearing Tubigrip compression stocking. Discussed eventual change to a standard prescription compression stocking once wounds have healed. Infection: No signs of infection. Wound cultures were taken given patient's prior history of recurrent bacterial infection at the sites. Pain: May take [id number] Tylenol for discomfort Host factors: DM type II with peripheral polyneuropathy, HTN, morbid obesity, lymphedema I answered all the patient's questions. To return to the wound healing center in 1 week or call sooner if the patient has any questions or concerns.
--- NOTE | 2024-01-18 09:01 | WC ---
01/17/2024 RIGHT GREAT TOE
[2024-01-24 10:56] VITALS: RESP 18; TEMP 36.9
--- NOTE | 2024-01-24 11:40 | PN.PCM_ITS ---
History of Present Illness Date of Service: 01/24/24 Chief Complaint: Right heel ulcer and right hallux ulcer History of Wound: 67 year old male presents to the wound center for evaluation of his right heal ulcer. It started as a a pressure ulcer in February 2022 when he he was in TCU and it healed. It then became a blister right before his Left TKR surgery. He had his left knee replaced 07/14/22 at [facility]. 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 He also has a history of diabetes type II with peripheral polyneuropathy, HTN, lymphedema, hypercholesterolemia and PE that he is on Xerelto. Wound culture obtained on 08/30/22 which are positive for VRE, Kocuria kristinae and Corynebacterium striatum. He will completed the Linezolid. Wound culture obtained 06/20/23 which was positive for Staphylococcus pseudintermediu, Pseudomonas aeruginosa, Corynebacterium minutissiumum, and Anaerobic cocci. He was started on Levaquin and Flagyl. Foot xray 09/27/22 - Osteopenia with diffuse osteoarthritic changes. Diffuse soft tissue swelling with ossification of the distal Achilles tendon. No acute abnormality or evidence of erosive changes. Did undergo updated radiograph of the right foot 11/08/2023 with no noted changes from previous x-ray. This is a recurring ulceration to both distal medial tuft of the right hallux and posterior lateral heel. He states both sites had scabbed up and he was previously discharged however scabs have later broken down with re-ulceration. Wound care -currently applying Joelle daily and is offloading and surgical shoe to the right foot. He denies any fever, chills, nausea and vomiting. Denies further complaints. Subjective Subjective This is a 68-year-old male who presents to the wound care center for follow-up of right hallux distal tuft ulceration and right posterior lateral calcaneal ulceration. Patient does report history of recurring ulcerations of these 2 specific sites over the last several years. He is currently on doxycycline for his knee. States he has left graft intact at the heel and is changing dressings as needed. He continues to offload heel while sleeping. Continues to dress Right Hallux daily with assistance from . States the both wounds are improving. Denies constitutional symptoms. Denies further complaints. Objective Data Objective Data Vital Signs: Vital Signs Temp Pulse Resp BP O2 Del Method 98.5 F 76 18 162/94 H Room Air 01/24/24 10:56 01/17/24 11:15 01/24/24 10:56 01/17/24 11:15 01/17/24 11:15 Oxygen Delivery Method Room Air Physical Exam Const alert, oriented x3, no apparent distress and well nourished General Appearance: cooperative Nutritional Appearance: morbidly obese HEENT normocephalic Eyes General Eye: normal appearance of both eyes Neck General: normal visual inspection Lymph Lymphatic: lymphedema Resp normal respiratory effort Cardio regular rate and regular rhythm Extremity normal capillary refill, no joint enlargement and no calf tenderness Extremity Narrative: Right lower extremity: Vascular: DP and PT pulses weakly palpable. CFT less than 5 seconds to the digits. Normal temperature gradient. Hair growth is absent to digits/foot. Neurologic: Gross sensation intact. Decreased light touch sensation. Absent protective sensation tested with 5.07g [place] Zen monofilament. Lack of protective sensation consistent with diabetic peripheral polyneuropathy Dermatologic: There is varicosities noted to the lower extremity with subsequent edema about foot and LIANNA ankle. There is hyperkeratosis of the distal hallux tuft rim with ulceration with healthy granular tissue. There is a posterior lateral heel ulceration with mixed fibrogranular wound base and eschar/ hyperkeratosis at the wound margin. No signs of infection. Musculoskeletal: Muscle strength 5 of 5 age-appropriate. Decreased range of motion of the ankle joint in dorsiflexion with the knee extended without pain or crepitus. Decreased range of motion of the first metatarsophalangeal joint without pain or crepitus. There is hammertoe deformity of digits 1 through 5. Skin no rashes or lesions noted, skin turgor normal and no jaundice General Skin Exam: venous stasis and dermatitis Neuro moves all extremities Debridement Note Debridement Note Wound debrided: Right lateral heel Laterality: Right Wound Grade/Stage: Gomez stage I Type of Debridement: Excisional debridement Anesthesia Used: 5% Lidocaine Gel Depth: Down to and including healthy tissue and in the subcutaneous layer Percentage of wound debrided: 100 Instrument Used: #15 blade Tissue Removed: Fibrous, devitalized subcutaneous, biofilm, slough Severity: Fat Layer Exposed Amount of bleeding with debridement: Mild Bleeding Controlled with: Compression and gauze Patient tolerated procedure: Patient tolerated procedure well Post-Debridement Measurements and Additional Note: Post-Debridement Measurements/Treatment WC - Nurse 1 - General Ulcer Assessment Start: 01/17/24 11:15 Freq: Status: Active Protocol: NELL Activity Type Activity Date Activity User E-sign Co-sign Detail Recorded Client Recorded Date Recorded By Document 01/17/24 11:15 KW wound center 01/17/24 11:27 KW Document 01/24/24 10:56 JF 0000 01/24/24 11:08 JF 01/17/24 01/24/24 11:15 10:56 WC - Today's Visit Information Type of service Follow-up Visit Follow-up Visit (Physician/DERMATOLOGY PHYSICIAN (Physician/DERMATOLOGY PHYSICIAN ) ) Arrival Mode Ambulatory, Ambulatory, Walker Walker Patient Identification Verified (Name & Yes Yes ) Patient Requires Transmission-Based No Precautions Finger Stick Blood Sugar(mg/dl) (if 180 indicated): Blood Sugar Stated by Patient Vital Signs Temperature (97.8 F-99.1 F) 99.1 F 98.5 F Temperature Source Temporal Temporal Pulse Rate (60-100) 76 Pulse Location Monitor Respiratory Rate (12-18) 18 18 Respiratory rate source Observation Observation Oxygen Delivery Method Room Air Blood Pressure (90/60-120/80) 162/94 H Blood Pressure Mean (mm Hg) 116 Source Monitor Position Semi-Fowlers Blood Pressure Location Left Arm History Since Last Visit- (Skip if this is Patient's initial visit) Have you changed medications since your No No last visit? Any new allergies or adverse reactions No No Had a fall/change in ADL's that may No No increase risk of falls Signs or symptoms of abuse and/or No No neglect since last visit Have you been in the hospital since your No No last visit? Has dressing in place as prescribed Yes Yes Has compression in place as prescribed Yes Yes Has offloadiing in place as prescribed N/A Yes Experienced any changes in pain level or No No management Left Footwear Regular Shoe Regular Shoe Right Footwear Surgical Shoe Surgical Shoe with pressure with pressure relief insole relief insole Pain Scale: 0-10 Numeric Is Patient Pain Free? Yes Yes LAM - Nurse 1 - General Ulcer Measurement Start: 01/17/24 11:15 Freq: Status: Active Protocol: Activity Type Activity Date Activity User E-sign Co-sign Detail Recorded Client Recorded Date Recorded By Document 01/17/24 11:15 KW wound center 01/17/24 11:27 KW Document 01/24/24 10:56 JF 0000 01/24/24 11:08 JF 01/17/24 01/24/24 11:15 10:56 Wound Center Nurse 1 #4 RT GREAT TOE -Combined with other wound No -Current Size (cm) - Length 1.2 1.3 -Current Size (cm) - Width 1.8 1.5 -Current Size (cm) - Depth 0.1 0.1 -Total Square Cm 2.16 1.95 -Date of Last Picture (Recall this 01/17/24 field) -Photo Taken No -Epithelialization Medium 34-66% -Tunneling No -Undermining/Tunneling No -Circular Undermining No -Exudate Amt Medium Small -Exudate Type Serosanguineous Serosanguineous -Wound Margin Distinct, Flat & Intact Outline Attached -Granulation Amt Large (67-100%) Large (67-100%) -Granulation Quality Red Red -Slough/Fibrin Yes -Necrosis Amt Small (1-33%) Small (1-33%) -Necrotic Tissue Type Adherent Slough Adherent Slough -Structure Exposed N/A -Texture (Lianna-wound Skin Appearance) Assessed Assessed -Moisture (Lianna-wound Skin Appearance) Assessed,Dry/ Assessed,Dry/ Scaly Scaly -Color (Lianna-wound Skin Appearance) Assessed Assessed -Temperature (Lianna-wound Skin No Abnormality No Abnormality Appearance) (Pt Warm) (Pt Warm) -Tenderness on Palpation (Lianna-wound No No Skin Appearance) -Ulcer Cleansing Soap and Water Rinsed/ Irrigated with Saline -Foul Odor after Cleansing No No -Anesthetic Used 5% Lidocaine 4% Lidocaine Gel Solution #3 RT HEEL -Combined with other wound No -Current Size (cm) - Length 0.9 0.1 -Current Size (cm) - Width 1 0.1 -Current Size (cm) - Depth 0.1 0.1 -Total Square Cm 0.9 0.01 -Date of Last Picture (Recall this 01/17/24 field) -Photo Taken No -Epithelialization Large 67-100% -Tunneling No -Undermining/Tunneling No -Circular Undermining No -Exudate Amt Small None Present -Exudate Type Serosanguineous -Wound Margin Distinct, Flat & Intact Outline Attached -Granulation Amt None Present (0 %) -Slough/Fibrin Yes -Necrosis Amt Large (67-100%) Large (67-100%) -Necrotic Tissue Type Adherent Slough Adherent Slough -Structure Exposed N/A -Texture (Lianna-wound Skin Appearance) Assessed Assessed -Moisture (Lianna-wound Skin Appearance) Assessed Assessed,Dry/ Scaly -Color (Lianna-wound Skin Appearance) Assessed -Temperature (Lianna-wound Skin No Abnormality No Abnormality Appearance) (Pt Warm) (Pt Warm) -Tenderness on Palpation (Lianna-wound No Skin Appearance) -Ulcer Cleansing Soap and Water Rinsed/ Irrigated with Saline -Foul Odor after Cleansing No No -Anesthetic Used 5% Lidocaine 4% Lidocaine Gel Solution Lower Limb Edema Present Yes Right Calf (cm) 46 47.2 Right Ankle (cm) 29 30.6 WC - Nurse 2 - General Ulcer CM Notes Start: 01/17/24 11:15 Freq: Status: Active Protocol: Activity Type Activity Date Activity User E-sign Co-sign Detail Recorded Client Recorded Date Recorded By Document 01/17/24 11:55 [facility] 01/17/24 12:06 [facility] Document 01/24/24 11:16 [facility] 01/24/24 11:24 [facility] 01/17/24 01/24/24 11:55 11:16 Wound Center Nurse 2 #4 RT GREAT TOE -Time 11:55 11:17 -Correct Patient Yes Yes -Correct Side, Site, Position Yes Yes -Correct Procedure Yes Yes -Procedure Performed Yes Yes -Type of Procedure Debridement Debridement -Clinical Debridement Subcutaneous Subcutaneous -Tissue Removed Subcutaneous Subcutaneous -Post Debridement (cm) - Length 1.5 1 -Post Debridement (cm) - Width 1.5 1.4 -Post Debridement (cm) - Depth 0.1 0.1 -Total Square (Post) (cm) 2.25 1.4 -Area of Debridement (cm) - Length 1.5 1 -Area of Debridement (cm) - Width 1.5 1.4 -Total Square (Area) (cm) 2.25 1.4 -Tunneling No No -Undermining/Tunneling No No -Circular Undermining No No -Wound/Ulcer Outcome Not Healed Not Healed -Ulcer Cleansing Rinsed/ Rinsed/ Irrigated with Irrigated with Saline Saline -Foul Odor after Cleansing No No -Bioengineered Tissue No No -Bleeding Controlled with Pressure Pressure -Treatment Response Procedure Procedure Tolerated Well Tolerated Well -Offloading Yes Yes -Type of Offloading Surgical Shoe Surgical Shoe -Debridement - Subq, 1st 20sq cm Yes Yes #3 RT HEEL -Time 11:56 11:19 -Correct Patient Yes Yes -Correct Side, Site, Position Yes Yes -Correct Procedure Yes Yes -Procedure Performed Yes Yes -Type of Procedure Debridement Debridement -Clinical Debridement Subcutaneous Subcutaneous -Tissue Removed Subcutaneous Subcutaneous -Post Debridement (cm) - Length 0.5 0.1 -Post Debridement (cm) - Width 0.4 0.1 -Post Debridement (cm) - Depth 0.1 0.1 -Total Square (Post) (cm) 0.20 0.01 -Area of Debridement (cm) - Length 0.5 0.1 -Area of Debridement (cm) - Width 0.4 0.1 -Total Square (Area) (cm) 0.20 0.01 -Tunneling No No -Undermining/Tunneling No No -Circular Undermining No No -Wound/Ulcer Outcome Not Healed Not Healed -Ulcer Cleansing Rinsed/ Rinsed/ Irrigated with Irrigated with Saline Saline -Foul Odor after Cleansing No No -Bioengineered Tissue No Yes -Type of Bioengineered Tissue Epifix 18mm Disc -Expiration Date 08/13/28 08/13/28 -Product Lot Number [id number] -Percent Used 100 100 -Lot number of Saline Used [id number] -Bleeding Controlled with Pressure Pressure -Treatment Response Procedure Procedure Tolerated Well Tolerated Well -Offloading Yes Yes -Type of Offloading Surgical Shoe Surgical Shoe -Debridement - Subq, 1st 20sq cm No No -Apply Skin Sub - 1st 25 sq cm - Feet 1 1 -Epifix 18mm Disc 3 3 Pain Scale: 0-10 Numeric Is Patient Pain Free? Yes Yes WC - Nurse 3 - General Ulcer D/C NN Start: 01/17/24 11:15 Freq: Status: Active Protocol: Activity Type Activity Date Activity User E-sign Co-sign Detail Recorded Client Recorded Date Recorded By Document 01/17/24 12:14 RB wound center 06/06/24 12:16 RB 01/17/24 12:14 Wound Care Center Nurse 3 #4 RT GREAT TOE -Other Dressing aquacel extra -Primary Dressing Covered/Secured with Dry Gauze,Dry Gauze & Roll Gauze,Secured with Tape #3 RT HEEL -Other Dressing aquacel extra -Primary Dressing Covered/Secured with Dry Gauze,Dry Gauze & Roll Gauze,Secured with Tape Right -Tubular Bandage Single Layer -Size of Tubigrip Used Size F -Size F ($) 1 Treatment Response Procedure Tolerated Well Pain Scale: 0-10 Numeric Is Patient Pain Free? Yes WC - Visit Discharge Discharge Condition Stable Ambulatory Status Ambulatory Transportation Private Auto Medication Reconcilliation completed & No provided to patient/care provider Clinical Summary of Care Provided Yes Additional Wound Wound debrided: Right hallux Laterality: Right Wound Grade/Stage: Gomez stage I Type of Debridement: Excisional debridement Anesthesia Used: 5% Lidocaine Gel Depth: Down to and including healthy tissue and in the subcutaneous layer Percentage of wound debrided: 100 Instrument Used: #15 blade Tissue Removed: Fibrous, devitalized subcutaneous, biofilm, slough Severity: Fat Layer Exposed Amount of bleeding with debridement: Mild Bleeding Controlled with: Compression and gauze Patient tolerated procedure: Patient tolerated procedure well Assessment/Plan Assessment/Plan (1) Non-pressure chronic ulcer of other part of right foot with fat layer exposed: CODE(S): L97.512 - Non-pressure chronic ulcer of other part of right foot with fat layer exposed (2) Chronic ulcer of right heel with fat layer exposed: CODE(S): L97.412 - Non-pressure chronic ulcer of right heel and midfoot with fat layer exposed (3) Acute painful diabetic polyneuropathy: CODE(S): E11.42 - Type 2 diabetes mellitus with diabetic polyneuropathy (4) Type 2 diabetes mellitus with foot ulcer: CODE(S): E11.621 - Type 2 diabetes mellitus with foot ulcer; L97.509 - Non-pressure chronic ulcer of other part of unspecified foot with unspecified severity (5) Lymphedema: CODE(S): I89.0 - Lymphedema, not elsewhere classified (6) Lower extremity edema: CODE(S): R60.0 - Localized edema (7) Hypertension: CODE(S): I10 - Essential (primary) hypertension (8) Debility: CODE(S): R53.81 - Other malaise PLAN: Plan Patient seen and evaluated Ulcerations debrided as noted in the clinical panel above. Right hallux distal tuft ulceration measures 1.0 cm x 1.4 cm x 0.1 cm and right posterior lateral heel ulceration measures 0.1 cm x 0.1 cm x 0.1 cm. No signs of infection. Joelle to the Right Hallux. He is to change dressing daily. EpiFix graft #9 was applied to the right heel and dressed with wound veil and anchored with Steri-Strips and dressed with dry sterile dressing. Ulcerations demonstrate continued reduction in size versus previous visit. Overall continuing to heal well with good granulation tissue. Cultures were obtained in wound center for 11/15/2023. Culture of right hallux demonstrates Staph aureus, staph simulans, corynebacterium minutissimum; culture right heel demonstrates Staphylococcus psuedintermediu. Clindamycin 150 mg 3 times daily stop date 12/06/2023. He has completed oral antibiotic. He was approved for EpiFix graft and we will continue to apply. Discussed continuing to offload right foot in surgical shoe. Recommended continued offloading while in bed with foam waffle boot. Patient was urged on this in the past however has not continued to offload while sleeping. He states that offloading is difficult at night with the waffle boot, discussed ensuring the boot is strapped on properly so that does not come off at night. If this remains a difficult issue we will consider different means of offloading. Discussed continued wearing of Tubigrip compression stockings until ulcerations have healed at which time he will change to bilateral compression stocking. Discussed continuing to elevate feet at all times of rest for edema control. Discussed adequate protein intake to continue to aid in wound healing. Florentin supplementation was recommended. Discussed proper diabetic diet in addition to the stated above to ensure adequate wound healing. Patient states that his sugars have been up but not above 200. does state he does eat things that he should not though. He has continued taking the instructed supplements for his neuropathy consisting of of complex B vitamin daily, magnesium 250 mg daily, alpha lipoic acid 300 mg daily, and 500 mg glutamine supplement. Discussed continuing to take it and allow time for the nerves to continue repair. Discussed signs and symptoms of infection. Discussed with the patient if he notices redness about the wound margins that continues to spread or moves up the leg, any purulent drainage from the wound site, increasing foul odor from the wound or if he experiences fever greater than 101 degree accompanied by nausea, vomiting, chills, that these are signs of a progressing infection and he should report to the ED for IV antibiotics and further evaluation. He and his voiced understanding of this today. The following work up and care recommendations were made: Dressing: Dakin's wash to right Hallux, Joelle to wound base right hallux. Change daily. EpiFix graft, wound veil, Steri-Strips, nurse hat to right heel. May change outer dressings as needed to right heel. Continue Tubigrip compression Wash: Soap and water Right Hallux, Do not get Right Heel wet Tissue growth optimization: Joelle right Hallux; EpiFix Right Heel. Offload: Elevating lower extremities at rest and Tubigrip compression. Offload with surgical shoe. Vascular: DP and PT pulses are weakly palpable with adequate capillary fill time. Do not feel that vascular status is affecting wound healing. Edema: Continue elevating lower extremities at all times of rest. Continue wearing Tubigrip compression stocking. Discussed eventual change to a standard prescription compression stocking once wounds have healed. Infection: No signs of infection. Wound cultures were taken given patient's prior history of recurrent bacterial infection at the sites. Pain: May take [id number] Tylenol for discomfort Host factors: DM type II with peripheral polyneuropathy, HTN, morbid obesity, lymphedema I answered all the patient's questions. To return to the wound healing center in 1 week or call sooner if the patient has any questions or concerns.
--- NOTE | 2024-01-31 09:55 | PN.PCM_ITS ---
History of Present Illness Date of Service: 01/31/24 Chief Complaint: Right heel ulcer and right hallux ulcer History of Wound: 67 year old male presents to the wound center for evaluation of his right heal ulcer. It started as a a pressure ulcer in February 2022 when he he was in TCU and it healed. It then became a blister right before his Left TKR surgery. He had his left knee replaced 07/14/22 at [facility]. 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 He also has a history of diabetes type II with peripheral polyneuropathy, HTN, lymphedema, hypercholesterolemia and PE that he is on Xerelto. Wound culture obtained on 08/30/22 which are positive for VRE, Kocuria kristinae and Corynebacterium striatum. He will completed the Linezolid. Wound culture obtained 06/20/23 which was positive for Staphylococcus pseudintermediu, Pseudomonas aeruginosa, Corynebacterium minutissiumum, and Anaerobic cocci. He was started on Levaquin and Flagyl. Foot xray 09/27/22 - Osteopenia with diffuse osteoarthritic changes. Diffuse soft tissue swelling with ossification of the distal Achilles tendon. No acute abnormality or evidence of erosive changes. Did undergo updated radiograph of the right foot 11/08/2023 with no noted changes from previous x-ray. This is a recurring ulceration to both distal medial tuft of the right hallux and posterior lateral heel. He states both sites had scabbed up and he was previously discharged however scabs have later broken down with re-ulceration. Wound care -currently applying Joelle daily and is offloading and surgical shoe to the right foot. He denies any fever, chills, nausea and vomiting. Denies further complaints. Subjective Subjective This is a 68-year-old male who presents to the wound care center for follow-up of right hallux distal tuft ulceration and right posterior lateral calcaneal ulceration. Patient does report history of recurring ulcerations of these 2 specific sites over the last several years. He is still on doxycycline for his knee. States he has left graft intact at the heel and is changing dressings as needed. He continues to offload heel while sleeping with PRAFO boot. Continues to dress Right Hallux daily with assistance from . States the both wounds are continuing in improvement. Denies constitutional symptoms. Denies further complaints. Objective Data Objective Data Vital Signs: Vital Signs Temp Pulse Resp BP O2 Del Method 98.5 F 76 18 162/94 H Room Air 01/24/24 10:56 01/17/24 11:15 01/24/24 10:56 01/17/24 11:15 01/17/24 11:15 Oxygen Delivery Method Room Air Physical Exam Const alert, oriented x3, no apparent distress and well nourished General Appearance: cooperative Nutritional Appearance: morbidly obese HEENT normocephalic Eyes General Eye: normal appearance of both eyes Neck General: normal visual inspection Lymph Lymphatic: lymphedema Resp normal respiratory effort Cardio regular rate and regular rhythm Extremity normal capillary refill, no joint enlargement and no calf tenderness Extremity Narrative: Right lower extremity: Vascular: DP and PT pulses weakly palpable. CFT less than 5 seconds to the digits. Normal temperature gradient. Hair growth is absent to digits/foot. Neurologic: Gross sensation intact. Decreased light touch sensation. Absent protective sensation tested with 5.07g Bryant Zen monofilament. Lack of protective sensation consistent with diabetic peripheral polyneuropathy Dermatologic: There is varicosities noted to the lower extremity with subsequent edema about foot and LIANNA ankle. There is hyperkeratosis of the distal hallux tuft rim with ulceration with healthy granular tissue. There is a posterior lateral heel ulceration with granular wound base and hyperkeratosis at the wound margin. No signs of infection. Musculoskeletal: Muscle strength 5 of 5 age-appropriate. Decreased range of motion of the ankle joint in dorsiflexion with the knee extended without pain or crepitus. Decreased range of motion of the first metatarsophalangeal joint without pain or crepitus. There is hammertoe deformity of digits 1 through 5. Skin no rashes or lesions noted, skin turgor normal and no jaundice General Skin Exam: venous stasis and dermatitis Neuro moves all extremities Debridement Note Debridement Note Wound debrided: Right hallux Laterality: Right Wound Grade/Stage: Gomez stage I Type of Debridement: Excisional debridement Anesthesia Used: 5% Lidocaine Gel Depth: Down to and including healthy tissue and in the subcutaneous layer Percentage of wound debrided: 100 Instrument Used: #15 blade Tissue Removed: Fibrous, devitalized subcutaneous, biofilm, slough Severity: Fat Layer Exposed Amount of bleeding with debridement: Mild Bleeding Controlled with: Compression and gauze Patient tolerated procedure: Patient tolerated procedure well Post-Debridement Measurements and Additional Note: Post-Debridement Measurements/Treatment LAM - Nurse 1 - General Ulcer Assessment Start: 01/17/24 11:15 Freq: Status: Active Protocol: NELL Activity Type Activity Date Activity User E-sign Co-sign Detail Recorded Client Recorded Date Recorded By Document 01/17/24 11:15 KW wound center 01/17/24 11:27 KW Document 01/24/24 10:56 JF 0000 01/24/24 11:08 JF 01/17/24 01/24/24 11:15 10:56 WC - Today's Visit Information Type of service Follow-up Visit Follow-up Visit (Physician/[employer]ARN (Physician/[employer] ) ) Arrival Mode Ambulatory, Ambulatory, Walker Walker Patient Identification Verified (Name & Yes Yes ) Patient Requires Transmission-Based No Precautions Finger Stick Blood Sugar(mg/dl) (if 180 indicated): Blood Sugar Stated by Patient Vital Signs Temperature (97.8 F-99.1 F) 99.1 F 98.5 F Temperature Source Temporal Temporal Pulse Rate (60-100) 76 Pulse Location Monitor Respiratory Rate (12-18) 18 18 Respiratory rate source Observation Observation Oxygen Delivery Method Room Air Blood Pressure (90/60-120/80) 162/94 H Blood Pressure Mean (mm Hg) 116 Source Monitor Position Semi-Fowlers Blood Pressure Location Left Arm History Since Last Visit- (Skip if this is Patient's initial visit) Have you changed medications since your No No last visit? Any new allergies or adverse reactions No No Had a fall/change in ADL's that may No No increase risk of falls Signs or symptoms of abuse and/or No No neglect since last visit Have you been in the hospital since your No No last visit? Has dressing in place as prescribed Yes Yes Has compression in place as prescribed Yes Yes Has offloadiing in place as prescribed N/A Yes Experienced any changes in pain level or No No management Left Footwear Regular Shoe Regular Shoe Right Footwear Surgical Shoe Surgical Shoe with pressure with pressure relief insole relief insole Pain Scale: 0-10 Numeric Is Patient Pain Free? Yes Yes LAM - Nurse 1 - General Ulcer Measurement Start: 01/17/24 11:15 Freq: Status: Active Protocol: Activity Type Activity Date Activity User E-sign Co-sign Detail Recorded Client Recorded Date Recorded By Document 01/17/24 11:15 KW wound center 01/17/24 11:27 KW Document 01/24/24 10:56 JF 0000 01/24/24 11:08 JF 01/17/24 01/24/24 11:15 10:56 Wound Center Nurse 1 #4 RT GREAT TOE -Combined with other wound No -Current Size (cm) - Length 1.2 1.3 -Current Size (cm) - Width 1.8 1.5 -Current Size (cm) - Depth 0.1 0.1 -Total Square Cm 2.16 1.95 -Date of Last Picture (Recall this 01/17/24 field) -Photo Taken No -Epithelialization Medium 34-66% -Tunneling No -Undermining/Tunneling No -Circular Undermining No -Exudate Amt Medium Small -Exudate Type Serosanguineous Serosanguineous -Wound Margin Distinct, Flat & Intact Outline Attached -Granulation Amt Large (67-100%) Large (67-100%) -Granulation Quality Red Red -Slough/Fibrin Yes -Necrosis Amt Small (1-33%) Small (1-33%) -Necrotic Tissue Type Adherent Slough Adherent Slough -Structure Exposed N/A -Texture (Lianna-wound Skin Appearance) Assessed Assessed -Moisture (Lianna-wound Skin Appearance) Assessed,Dry/ Assessed,Dry/ Scaly Scaly -Color (Lianna-wound Skin Appearance) Assessed Assessed -Temperature (Lianna-wound Skin No Abnormality No Abnormality Appearance) (Pt Warm) (Pt Warm) -Tenderness on Palpation (Lianna-wound No No Skin Appearance) -Ulcer Cleansing Soap and Water Rinsed/ Irrigated with Saline -Foul Odor after Cleansing No No -Anesthetic Used 5% Lidocaine 4% Lidocaine Gel Solution #3 RT HEEL -Combined with other wound No -Current Size (cm) - Length 0.9 0.1 -Current Size (cm) - Width 1 0.1 -Current Size (cm) - Depth 0.1 0.1 -Total Square Cm 0.9 0.01 -Date of Last Picture (Recall this 01/17/24 field) -Photo Taken No -Epithelialization Large 67-100% -Tunneling No -Undermining/Tunneling No -Circular Undermining No -Exudate Amt Small None Present -Exudate Type Serosanguineous -Wound Margin Distinct, Flat & Intact Outline Attached -Granulation Amt None Present (0 %) -Slough/Fibrin Yes -Necrosis Amt Large (67-100%) Large (67-100%) -Necrotic Tissue Type Adherent Slough Adherent Slough -Structure Exposed N/A -Texture (Lianna-wound Skin Appearance) Assessed Assessed -Moisture (Lianna-wound Skin Appearance) Assessed Assessed,Dry/ Scaly -Color (Lianna-wound Skin Appearance) Assessed -Temperature (Lianna-wound Skin No Abnormality No Abnormality Appearance) (Pt Warm) (Pt Warm) -Tenderness on Palpation (Lianna-wound No Skin Appearance) -Ulcer Cleansing Soap and Water Rinsed/ Irrigated with Saline -Foul Odor after Cleansing No No -Anesthetic Used 5% Lidocaine 4% Lidocaine Gel Solution Lower Limb Edema Present Yes Right Calf (cm) 46 47.2 Right Ankle (cm) 29 30.6 WC - Nurse 2 - General Ulcer CM Notes Start: 01/17/24 11:15 Freq: Status: Active Protocol: Activity Type Activity Date Activity User E-sign Co-sign Detail Recorded Client Recorded Date Recorded By Document 01/17/24 11:[address] [facility] 01/17/24 12:[address] [facility] Document 01/24/24 11:[address] [facility] 01/24/24 11:[address] [facility] 01/17/24 01/24/24 11:55 11:16 Wound Center Nurse 2 #4 RT GREAT TOE -Time 11:55 11:17 -Correct Patient Yes Yes -Correct Side, Site, Position Yes Yes -Correct Procedure Yes Yes -Procedure Performed Yes Yes -Type of Procedure Debridement Debridement -Clinical Debridement Subcutaneous Subcutaneous -Tissue Removed Subcutaneous Subcutaneous -Post Debridement (cm) - Length 1.5 1 -Post Debridement (cm) - Width 1.5 1.4 -Post Debridement (cm) - Depth 0.1 0.1 -Total Square (Post) (cm) 2.25 1.4 -Area of Debridement (cm) - Length 1.5 1 -Area of Debridement (cm) - Width 1.5 1.4 -Total Square (Area) (cm) 2.25 1.4 -Tunneling No No -Undermining/Tunneling No No -Circular Undermining No No -Wound/Ulcer Outcome Not Healed Not Healed -Ulcer Cleansing Rinsed/ Rinsed/ Irrigated with Irrigated with Saline Saline -Foul Odor after Cleansing No No -Bioengineered Tissue No No -Bleeding Controlled with Pressure Pressure -Treatment Response Procedure Procedure Tolerated Well Tolerated Well -Offloading Yes Yes -Type of Offloading Surgical Shoe Surgical Shoe -Debridement - Subq, 1st 20sq cm Yes Yes #3 RT HEEL -Time 11:56 11:19 -Correct Patient Yes Yes -Correct Side, Site, Position Yes Yes -Correct Procedure Yes Yes -Procedure Performed Yes Yes -Type of Procedure Debridement Debridement -Clinical Debridement Subcutaneous Subcutaneous -Tissue Removed Subcutaneous Subcutaneous -Post Debridement (cm) - Length 0.5 0.1 -Post Debridement (cm) - Width 0.4 0.1 -Post Debridement (cm) - Depth 0.1 0.1 -Total Square (Post) (cm) 0.20 0.01 -Area of Debridement (cm) - Length 0.5 0.1 -Area of Debridement (cm) - Width 0.4 0.1 -Total Square (Area) (cm) 0.20 0.01 -Tunneling No No -Undermining/Tunneling No No -Circular Undermining No No -Wound/Ulcer Outcome Not Healed Not Healed -Ulcer Cleansing Rinsed/ Rinsed/ Irrigated with Irrigated with Saline Saline -Foul Odor after Cleansing No No -Bioengineered Tissue No Yes -Type of Bioengineered Tissue Epifix 18mm Disc -Expiration Date 08/13/28 08/13/28 -Product Lot Number [id number] -Percent Used 100 100 -Lot number of Saline Used [id number] -Bleeding Controlled with Pressure Pressure -Treatment Response Procedure Procedure Tolerated Well Tolerated Well -Offloading Yes Yes -Type of Offloading Surgical Shoe Surgical Shoe -Debridement - Subq, 1st 20sq cm No No -Apply Skin Sub - 1st 25 sq cm - Feet 1 1 -Epifix 18mm Disc 3 3 Pain Scale: 0-10 Numeric Is Patient Pain Free? Yes Yes WC - Nurse 3 - General Ulcer D/C NN Start: 01/17/24 11:15 Freq: Status: Active Protocol: Activity Type Activity Date Activity User E-sign Co-sign Detail Recorded Client Recorded Date Recorded By Document 01/17/24 12:14 RB wound center 01/17/24 12:16 RB Document 01/24/24 11:46 JF 0000 01/24/24 11:47 JF 01/17/24 01/24/24 12:14 11:46 Wound Care Center Nurse 3 #4 RT GREAT TOE -Ulcer Cleansing Rinsed/ Irrigated with Saline -Other Dressing aquacel extra aquacel extra -Primary Dressing Covered/Secured with Dry Gauze,Dry Dry Gauze & Gauze & Roll Roll Gauze, Gauze,Secured Secured with with Tape Tape #3 RT HEEL -Ulcer Cleansing Rinsed/ Irrigated with Saline -Foul Odor after Cleansing No -Other Dressing aquacel extra aquacel extra -Primary Dressing Covered/Secured with Dry Gauze,Dry Dry Gauze & Gauze & Roll Roll Gauze, Gauze,Secured Secured with with Tape Tape Right -Tubular Bandage Single Layer Single Layer -Size of Tubigrip Used Size F Size F -Size F ($) 1 1 Treatment Response Procedure Tolerated Well Pain Scale: 0-10 Numeric Is Patient Pain Free? Yes Yes WC - Visit Discharge Discharge Condition Stable Stable Ambulatory Status Ambulatory Ambulatory, Walker Transportation Private Auto Private Auto Accompanied by Medication Reconcilliation completed & No Yes provided to patient/care provider Clinical Summary of Care Provided Yes Yes Additional Wound Wound debrided: Right heel Laterality: Right Wound Grade/Stage: Gomez stage I Type of Debridement: Excisional debridement Anesthesia Used: 5% Lidocaine Gel Depth: Down to and including healthy tissue and in the subcutaneous layer Percentage of wound debrided: 100 Instrument Used: #15 blade Tissue Removed: Fibrous, devitalized subcutaneous, biofilm, slough Severity: Fat Layer Exposed Amount of bleeding with debridement: Mild Bleeding Controlled with: Compression and gauze Patient tolerated procedure: Patient tolerated procedure well Assessment/Plan Assessment/Plan (1) Non-pressure chronic ulcer of other part of right foot with fat layer exposed: CODE(S): L97.512 - Non-pressure chronic ulcer of other part of right foot with fat layer exposed (2) Chronic ulcer of right heel with fat layer exposed: CODE(S): L97.412 - Non-pressure chronic ulcer of right heel and midfoot with fat layer exposed (3) Acute painful diabetic polyneuropathy: CODE(S): E11.42 - Type 2 diabetes mellitus with diabetic polyneuropathy (4) Type 2 diabetes mellitus with foot ulcer: CODE(S): E11.621 - Type 2 diabetes mellitus with foot ulcer; L97.509 - Non-pressure chronic ulcer of other part of unspecified foot with unspecified severity (5) Lymphedema: CODE(S): I89.0 - Lymphedema, not elsewhere classified (6) Lower extremity edema: CODE(S): R60.0 - Localized edema (7) Hypertension: CODE(S): I10 - Essential (primary) hypertension (8) Debility: CODE(S): R53.81 - Other malaise PLAN: Plan Patient seen and evaluated Ulcerations debrided as noted in the clinical panel above. Right hallux distal tuft ulceration measures 1.1 cm x 1.5 cm x 0.1 cm and right posterior lateral heel ulceration measures 0.1 cm x 0.1 cm x 0.1 cm. No signs of infection. Joelle to the Right Hallux. He is to change dressing daily. EpiFix graft #10 was applied to the right heel and dressed with wound veil and anchored with Steri-Strips and dressed with dry sterile dressing. Ulcerations demonstrate continued reduction in size versus previous visit to heel but slight increase at Hallux. Overall continuing to heal well with good granulation tissue. Cultures were obtained in wound center for 11/15/2023. Culture of right hallux demonstrates Staph aureus, staph simulans, corynebacterium minutissimum; culture right heel demonstrates Staphylococcus psuedintermediu. Clindamycin 150 mg 3 times daily stop date 12/06/2023. He completed oral antibiotic. He was approved for EpiFix graft for Right heel and we will continue to apply. Will seek approval for EpiFix for Right Hallux at next visit. Discussed continuing to offload right foot in surgical shoe. Recommended continued offloading while in bed with foam waffle boot. Patient was urged on this in the past however has not continued to offload while sleeping. He states that offloading is difficult at night with the waffle boot, discussed ensuring the boot is strapped on properly so that does not come off at night. If this remains a difficult issue we will consider different means of offloading. Discussed continued wearing of Tubigrip compression stockings until ulcerations have healed at which time he will change to bilateral compression stocking. Discussed continuing to elevate feet at all times of rest for edema control. Discussed adequate protein intake to continue to aid in wound healing. Florentin supplementation was recommended. Discussed proper diabetic diet in addition to the stated above to ensure adequate wound healing. Patient states that his sugars have been up but not above 200. does state he does eat things that he should not though. He has continued taking the instructed supplements for his neuropathy consisting of of complex B vitamin daily, magnesium 250 mg daily, alpha lipoic acid 300 mg daily, and 500 mg glutamine supplement. Discussed continuing to take it and allow time for the nerves to continue repair. Discussed signs and symptoms of infection. Discussed with the patient if he notices redness about the wound margins that continues to spread or moves up the leg, any purulent drainage from the wound site, increasing foul odor from the wound or if he experiences fever greater than 101 degree accompanied by nausea, vomiting, chills, that these are signs of a progressing infection and he should report to the ED for IV antibiotics and further evaluation. He and his voiced understanding of this today. The following work up and care recommendations were made: Dressing: Dakin's wash to right Hallux, Joelle to wound base right hallux. Change daily. EpiFix graft, wound veil, Steri-Strips, nurse hat to right heel. May change outer dressings as needed to right heel. Continue Tubigrip compression Wash: Soap and water Right Hallux, Do not get Right Heel wet Tissue growth optimization: Joelle right Hallux; EpiFix Right Heel. Offload: Elevating lower extremities at rest and Tubigrip compression. Offload with surgical shoe. Vascular: DP and PT pulses are weakly palpable with adequate capillary fill time. Do not feel that vascular status is affecting wound healing. Edema: Continue elevating lower extremities at all times of rest. Continue wearing Tubigrip compression stocking. Discussed eventual change to a standard prescription compression stocking once wounds have healed. Infection: No signs of infection. Wound cultures were taken given patient's prior history of recurrent bacterial infection at the sites. Pain: May take [id number] Tylenol for discomfort Host factors: DM type II with peripheral polyneuropathy, HTN, morbid obesity, lymphedema I answered all the patient's questions. To return to the wound healing center in 1 week or call sooner if the patient has any questions or concerns.
[2024-01-31 09:59] VITALS: BP 152/76; PULSE 76; RESP 18; TEMP 36.2
--- NOTE | 2024-02-04 08:23 | WC ---
PHOTO RIGHT GREAT TOE
--- NOTE | 2024-02-04 08:27 | WC ---
PHOTO 01/31/2024
--- NOTE | 2024-02-07 10:39 | PCM.WC.PN ---
History of Present Illness Date of Service: 02/07/24 Chief Complaint: Right heel ulcer and right hallux ulcer History of Wound: 67 year old male presents to the wound center for evaluation of his right heal ulcer. It started as a a pressure ulcer in February 2022 when he he was in TCU and it healed. It then became a blister right before his Left TKR surgery. He had his left knee replaced 07/14/22 at [facility]. 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 He also has a history of diabetes type II with peripheral polyneuropathy, HTN, lymphedema, hypercholesterolemia and PE that he is on Xerelto. Wound culture obtained on 08/30/22 which are positive for VRE, Kocuria kristinae and Corynebacterium striatum. He will completed the Linezolid. Wound culture obtained 06/20/23 which was positive for Staphylococcus pseudintermediu, Pseudomonas aeruginosa, Corynebacterium minutissiumum, and Anaerobic cocci. He was started on Levaquin and Flagyl. Foot xray 09/27/22 - Osteopenia with diffuse osteoarthritic changes. Diffuse soft tissue swelling with ossification of the distal Achilles tendon. No acute abnormality or evidence of erosive changes. Did undergo updated radiograph of the right foot 11/08/2023 with no noted changes from previous x-ray. This is a recurring ulceration to both distal medial tuft of the right hallux and posterior lateral heel. He states both sites had scabbed up and he was previously discharged however scabs have later broken down with re-ulceration. Wound care -currently applying Joelle daily and is offloading and surgical shoe to the right foot. He denies any fever, chills, nausea and vomiting. Denies further complaints. Subjective Subjective This is a 68-year-old male who presents to the wound care center for follow-up of right hallux distal tuft ulceration and right posterior lateral calcaneal ulceration. Patient does report history of recurring ulcerations of these 2 specific sites over the last several years. He is still on doxycycline for his knee. States he has left graft intact at the heel and is changing dressings as needed. He continues to offload heel while sleeping with PRAFO boot. Continues to dress Right Hallux daily with assistance from . States the both wounds are continuing in improvement and the heel ulcer is close to healed status. Denies constitutional symptoms. Denies further complaints. Objective Data Objective Data Vital Signs: Vital Signs Temp Pulse Resp BP O2 Del Method 97.1 F L 76 18 152/76 H Room Air 01/31/24 09:59 01/31/24 09:59 01/31/24 09:59 01/31/24 09:59 01/31/24 09:59 Oxygen Delivery Method Room Air Physical Exam Const alert, oriented x3, no apparent distress and well nourished General Appearance: cooperative Nutritional Appearance: morbidly obese HEENT normocephalic Eyes General Eye: normal appearance of both eyes Neck General: normal visual inspection Lymph Lymphatic: lymphedema Resp normal respiratory effort Cardio regular rate and regular rhythm Extremity normal capillary refill, no joint enlargement and no calf tenderness Extremity Narrative: Right lower extremity: Vascular: DP and PT pulses weakly palpable. CFT less than 5 seconds to the digits. Normal temperature gradient. Hair growth is absent to digits/foot. Neurologic: Gross sensation intact. Decreased light touch sensation. Absent protective sensation tested with 5.07g [place] Zen monofilament. Lack of protective sensation consistent with diabetic peripheral polyneuropathy Dermatologic: There is varicosities noted to the lower extremity with subsequent edema about foot and LIANNA ankle. There is hyperkeratosis of the distal hallux tuft rim with ulceration with healthy granular tissue. There is a posterior lateral heel ulceration with granular wound base and hyperkeratosis at the wound margin. No signs of infection. Musculoskeletal: Muscle strength 5 of 5 age-appropriate. Decreased range of motion of the ankle joint in dorsiflexion with the knee extended without pain or crepitus. Decreased range of motion of the first metatarsophalangeal joint without pain or crepitus. There is hammertoe deformity of digits 1 through 5. Skin no rashes or lesions noted, skin turgor normal and no jaundice General Skin Exam: venous stasis and dermatitis Neuro moves all extremities Debridement Note Debridement Note Wound debrided: Right hallux Laterality: Right Wound Grade/Stage: Gomez stage I Type of Debridement: Excisional debridement Anesthesia Used: 5% Lidocaine Gel Depth: Down to and including healthy tissue and in the subcutaneous layer Percentage of wound debrided: 100 Instrument Used: #15 blade Tissue Removed: Fibrous, devitalized subcutaneous, biofilm, slough Severity: Fat Layer Exposed Amount of bleeding with debridement: Mild Bleeding Controlled with: Compression and gauze Patient tolerated procedure: Patient tolerated procedure well Post-Debridement Measurements and Additional Note: Post-Debridement Measurements/Treatment - Nurse 1 - General Ulcer Assessment Start: 01/17/24 11:15 Freq: Status: Active Protocol: NELL Activity Type Activity Date Activity User E-sign Co-sign Detail Recorded Client Recorded Date Recorded By Document 01/17/24 11:15 KW wound center 01/17/24 11:27 KW Document 01/24/24 10:56 JF 0000 01/24/24 11:08 JF Document 01/31/24 09:59 [facility] 01/31/24 10:06 BMF 01/17/24 01/24/24 01/31/24 11:15 10:56 09:59 - Today's Visit Information Type of service Follow-up Visit Follow-up Visit Follow-up Visit (Physician/MANAGER SAP (Physician/MANAGER SAP (Physician/MANAGER SAP ) ) ) Arrival Mode Ambulatory, Ambulatory, Ambulatory, Walker Walker Walker Transfer Assistance None Accompanied by Patient Identification Verified (Name & Yes Yes Yes ) Patient Requires Transmission-Based No No Precautions Finger Stick Blood Sugar(mg/dl) (if 180 indicated): Blood Sugar Stated by Patient Vital Signs Temperature (97.8 F-99.1 F) 99.1 F 98.5 F 97.1 F L Temperature Source Temporal Temporal Temporal Pulse Rate (60-100) 76 76 Pulse Location Monitor Monitor Respiratory Rate (12-18) 18 18 18 Respiratory rate source Observation Observation Observation Oxygen Delivery Method Room Air Room Air Blood Pressure (90/60-120/80) 162/94 H 152/76 H Blood Pressure Mean (mm Hg) 116 101 Source Monitor Monitor Position Semi-Fowlers Sitting Blood Pressure Location Left Arm Right Forearm History Since Last Visit- (Skip if this is Patient's initial visit) Have you changed medications since your No No No last visit? Any new allergies or adverse reactions No No No Had a fall/change in ADL's that may No No No increase risk of falls Signs or symptoms of abuse and/or No No No neglect since last visit Have you been in the hospital since your No No No last visit? Has dressing in place as prescribed Yes Yes Yes Has compression in place as prescribed Yes Yes Yes Has offloadiing in place as prescribed N/A Yes Yes Experienced any changes in pain level or No No No management Left Footwear Regular Shoe Regular Shoe Diabetic Shoe Right Footwear Surgical Shoe Surgical Shoe Surgical Shoe with pressure with pressure with pressure relief insole relief insole relief insole Pain Scale: 0-10 Numeric Is Patient Pain Free? Yes Yes Yes WC - Nurse 1 - General Ulcer Measurement Start: 01/17/24 11:15 Freq: Status: Active Protocol: Activity Type Activity Date Activity User E-sign Co-sign Detail Recorded Client Recorded Date Recorded By Document 01/17/24 11:15 KW wound center 01/17/24 11:27 KW Document 01/24/24 10:56 JF 0000 01/24/24 11:08 JF Document 01/31/24 09:59 [facility] 01/31/24 10:06 BMF 01/17/24 01/24/24 01/31/24 11:15 10:56 09:59 Wound Center Nurse 1 #4 RT GREAT TOE -Combined with other wound No No -Current Size (cm) - Length 1.2 1.3 1 -Current Size (cm) - Width 1.8 1.5 1.3 -Current Size (cm) - Depth 0.1 0.1 0.1 -Total Square Cm 2.16 1.95 1.3 -Date of Last Picture (Recall this 01/17/24 01/31/24 field) -Photo Taken No Yes -Epithelialization Medium 34-66% Small 1-33% -Tunneling No No -Undermining/Tunneling No No -Circular Undermining No No -Exudate Amt Medium Small Medium -Exudate Type Serosanguineous Serosanguineous Serosanguineous -Wound Margin Distinct, Flat & Intact Flat & Intact Outline Attached -Granulation Amt Large (67-100%) Large (67-100%) Large (67-100%) -Granulation Quality Red Red Red -Slough/Fibrin Yes Yes -Necrosis Amt Small (1-33%) Small (1-33%) Small (1-33%) -Necrotic Tissue Type Adherent Slough Adherent Slough Adherent Slough -Structure Exposed N/A -Texture (Lianna-wound Skin Appearance) Assessed Assessed Assessed, Scarring -Moisture (Lianna-wound Skin Appearance) Assessed,Dry/ Assessed,Dry/ Assessed,Dry/ Scaly Scaly Scaly -Color (Lianna-wound Skin Appearance) Assessed Assessed Assessed, Erythema -Temperature (Lianna-wound Skin No Abnormality No Abnormality No Abnormality Appearance) (Pt Warm) (Pt Warm) (Pt Warm) -Tenderness on Palpation (Lianna-wound No No No Skin Appearance) -Ulcer Cleansing Soap and Water Rinsed/ Soap and Water Irrigated with Saline -Foul Odor after Cleansing No No No -Anesthetic Used 5% Lidocaine 4% Lidocaine 5% Lidocaine Gel Solution Gel #3 RT HEEL -Combined with other wound No No -Current Size (cm) - Length 0.9 0.1 0.1 -Current Size (cm) - Width 1 0.1 0.1 -Current Size (cm) - Depth 0.1 0.1 0.1 -Total Square Cm 0.9 0.01 0.01 -Date of Last Picture (Recall this 01/17/24 01/31/24 field) -Photo Taken No Yes -Epithelialization Large 67-100% Large 67-100% -Tunneling No No -Undermining/Tunneling No No -Circular Undermining No No -Exudate Amt Small None Present None Present -Exudate Type Serosanguineous -Wound Margin Distinct, Flat & Intact Outline Attached -Granulation Amt None Present (0 %) -Slough/Fibrin Yes -Necrosis Amt Large (67-100%) Large (67-100%) Small (1-33%) -Necrotic Tissue Type Adherent Slough Adherent Slough Eschar -Structure Exposed N/A -Texture (Lianna-wound Skin Appearance) Assessed Assessed Assessed, Scarring -Moisture (Lianna-wound Skin Appearance) Assessed Assessed,Dry/ Assessed,Dry/ Scaly Scaly -Color (Lianna-wound Skin Appearance) Assessed Assessed -Temperature (Lianna-wound Skin No Abnormality No Abnormality No Abnormality Appearance) (Pt Warm) (Pt Warm) (Pt Warm) -Tenderness on Palpation (Lianna-wound No No Skin Appearance) -Ulcer Cleansing Soap and Water Rinsed/ Soap and Water Irrigated with Saline -Foul Odor after Cleansing No No No -Anesthetic Used 5% Lidocaine 4% Lidocaine 5% Lidocaine Gel Solution Gel Lower Limb Edema Present Yes Yes Right Calf (cm) 46 47.2 46.8 Right Ankle (cm) 29 30.6 28 WC - Nurse 2 - General Ulcer CM Notes Start: 01/17/24 11:15 Freq: Status: Active Protocol: Activity Type Activity Date Activity User E-sign Co-sign Detail Recorded Client Recorded Date Recorded By Document 01/17/24 11:55 [facility] 01/17/24 12:06 [facility] Document 01/24/24 11:16 [facility] 01/24/24 11:24 [facility] Document 01/31/24 10:12 [facility] 01/31/24 10:22 [facility] 01/17/24 01/24/24 01/31/24 11:55 11:16 10:12 Wound Center Nurse 2 #4 RT GREAT TOE -Time 11:55 11:17 10:21 -Correct Patient Yes Yes Yes -Correct Side, Site, Position Yes Yes Yes -Correct Procedure Yes Yes Yes -Procedure Performed Yes Yes Yes -Type of Procedure Debridement Debridement Debridement -Clinical Debridement Subcutaneous Subcutaneous Subcutaneous -Tissue Removed Subcutaneous Subcutaneous Subcutaneous -Post Debridement (cm) - Length 1.5 1 1.1 -Post Debridement (cm) - Width 1.5 1.4 1.5 -Post Debridement (cm) - Depth 0.1 0.1 0.1 -Total Square (Post) (cm) 2.25 1.4 1.65 -Area of Debridement (cm) - Length 1.5 1 1.1 -Area of Debridement (cm) - Width 1.5 1.4 1.5 -Total Square (Area) (cm) 2.25 1.4 1.65 -Tunneling No No No -Undermining/Tunneling No No No -Circular Undermining No No No -Wound/Ulcer Outcome Not Healed Not Healed Not Healed -Ulcer Cleansing Rinsed/ Rinsed/ Rinsed/ Irrigated with Irrigated with Irrigated with Saline Saline Saline -Foul Odor after Cleansing No No No -Bioengineered Tissue No No No -Bleeding Controlled with Pressure Pressure Pressure -Treatment Response Procedure Procedure Procedure Tolerated Well Tolerated Well Tolerated Well -Offloading Yes Yes -Type of Offloading Surgical Shoe Surgical Shoe -Debridement - Subq, 1st 20sq cm Yes Yes Yes #3 RT HEEL -Time 11:56 11:19 10:13 -Correct Patient Yes Yes Yes -Correct Side, Site, Position Yes Yes Yes -Correct Procedure Yes Yes Yes -Procedure Performed Yes Yes Yes -Type of Procedure Debridement Debridement Debridement -Clinical Debridement Subcutaneous Subcutaneous Subcutaneous -Tissue Removed Subcutaneous Subcutaneous Subcutaneous -Post Debridement (cm) - Length 0.5 0.1 0.1 -Post Debridement (cm) - Width 0.4 0.1 0.1 -Post Debridement (cm) - Depth 0.1 0.1 0.1 -Total Square (Post) (cm) 0.20 0.01 0.01 -Area of Debridement (cm) - Length 0.5 0.1 0.1 -Area of Debridement (cm) - Width 0.4 0.1 0.1 -Total Square (Area) (cm) 0.20 0.01 0.01 -Tunneling No No No -Undermining/Tunneling No No No -Circular Undermining No No No -Wound/Ulcer Outcome Not Healed Not Healed Not Healed -Ulcer Cleansing Rinsed/ Rinsed/ Rinsed/ Irrigated with Irrigated with Irrigated with Saline Saline Saline -Foul Odor after Cleansing No No No -Bioengineered Tissue No Yes Yes -Type of Bioengineered Tissue Epifix 18mm Epifix 18mm Disc Disc -Expiration Date 08/13/28 08/13/28 07/13/28 -Product Lot Number [id number] -Percent Used 100 100 100 -Lot number of Saline Used [id number] -Bleeding Controlled with Pressure Pressure Pressure -Treatment Response Procedure Procedure Procedure Tolerated Well Tolerated Well Tolerated Well -Offloading Yes Yes Yes -Type of Offloading Surgical Shoe Surgical Shoe Other -Other Type of Offloading PRAFO -Debridement - Subq, 1st 20sq cm No No No -Apply Skin Sub - 1st 25 sq cm - Feet 1 1 1 -Epifix 18mm Disc 3 3 3 Pain Scale: 0-10 Numeric Is Patient Pain Free? Yes Yes Yes - Nurse 3 - General Ulcer D/C NN Start: 01/17/24 11:15 Freq: Status: Active Protocol: Activity Type Activity Date Activity User E-sign Co-sign Detail Recorded Client Recorded Date Recorded By Document 01/17/24 12:14 RB wound center 01/17/24 12:16 RB Document 01/24/24 11:46 JF 0000 01/24/24 11:47 JF 01/17/24 01/24/24 12:14 11:46 Wound Care Center Nurse 3 #4 RT GREAT TOE -Ulcer Cleansing Rinsed/ Irrigated with Saline -Other Dressing aquacel extra aquacel extra -Primary Dressing Covered/Secured with Dry Gauze,Dry Dry Gauze & Gauze & Roll Roll Gauze, Gauze,Secured Secured with with Tape Tape #3 RT HEEL -Ulcer Cleansing Rinsed/ Irrigated with Saline -Foul Odor after Cleansing No -Other Dressing aquacel extra aquacel extra -Primary Dressing Covered/Secured with Dry Gauze,Dry Dry Gauze & Gauze & Roll Roll Gauze, Gauze,Secured Secured with with Tape Tape Right -Tubular Bandage Single Layer Single Layer -Size of Tubigrip Used Size F Size F -Size F ($) 1 1 Treatment Response Procedure Tolerated Well Pain Scale: 0-10 Numeric Is Patient Pain Free? Yes Yes WC - Visit Discharge Discharge Condition Stable Stable Ambulatory Status Ambulatory Ambulatory, Walker Transportation Private Auto Private Auto Accompanied by Medication Reconcilliation completed & No Yes provided to patient/care provider Clinical Summary of Care Provided Yes Yes Additional Wound Wound debrided: Right posterior lateral heel Laterality: Right Wound Grade/Stage: Gomez stage I Type of Debridement: Excisional debridement Anesthesia Used: 5% Lidocaine Gel Depth: Down to and including healthy tissue and in the subcutaneous layer Percentage of wound debrided: 100 Instrument Used: #15 blade Tissue Removed: Fibrous, devitalized subcutaneous, biofilm, slough Severity: Fat Layer Exposed Amount of bleeding with debridement: Mild Bleeding Controlled with: Compression and gauze Patient tolerated procedure: Patient tolerated procedure well Assessment/Plan Assessment/Plan (1) Non-pressure chronic ulcer of other part of right foot with fat layer exposed: CODE(S): L97.512 - Non-pressure chronic ulcer of other part of right foot with fat layer exposed (2) Chronic ulcer of right heel with fat layer exposed: CODE(S): L97.412 - Non-pressure chronic ulcer of right heel and midfoot with fat layer exposed (3) Acute painful diabetic polyneuropathy: CODE(S): E11.42 - Type 2 diabetes mellitus with diabetic polyneuropathy (4) Type 2 diabetes mellitus with foot ulcer: CODE(S): E11.621 - Type 2 diabetes mellitus with foot ulcer; L97.509 - Non-pressure chronic ulcer of other part of unspecified foot with unspecified severity (5) Lymphedema: CODE(S): I89.0 - Lymphedema, not elsewhere classified (6) Lower extremity edema: CODE(S): R60.0 - Localized edema (7) Hypertension: CODE(S): I10 - Essential (primary) hypertension (8) Debility: CODE(S): R53.81 - Other malaise PLAN: Plan Patient seen and evaluated Ulcerations debrided as noted in the clinical panel above. Right hallux distal tuft ulceration measures 1.1 cm x 1.5 cm x 0.1 cm and right posterior lateral heel ulceration measures 0.1 cm x 0.1 cm x 0.1 cm. No signs of infection. Joelle to the Right Heel. He is to change dressing daily. EpiFix graft #1 was applied to the right Hallux and dressed with Adaptic touch and anchored with Steri-Strips and dressed with dry sterile dressing. Ulcerations demonstrate continued reduction in size versus previous visit. Overall continuing to heal well with good granulation tissue. Right heal is nearing closure. Cultures were obtained in wound center for 11/15/2023. Culture of right hallux demonstrates Staph aureus, staph simulans, corynebacterium minutissimum; culture right heel demonstrates Staphylococcus psuedintermediu. Clindamycin 150 mg 3 times daily stop date 12/06/2023. He completed oral antibiotic. He was approved for EpiFix graft for Right heel and has finished all 10 applications. He was approved for EpiFix for Right Hallux, and will continue application. Discussed continuing to offload right foot in surgical shoe. Recommended continued offloading while in bed with foam waffle boot. Patient was urged on this in the past however has not continued to offload while sleeping. He states that offloading is difficult at night with the waffle boot, discussed ensuring the boot is strapped on properly so that does not come off at night. If this remains a difficult issue we will consider different means of offloading. Discussed continued wearing of Tubigrip compression stockings until ulcerations have healed at which time he will change to bilateral compression stocking. Discussed continuing to elevate feet at all times of rest for edema control. Discussed adequate protein intake to continue to aid in wound healing. Florentin supplementation was recommended. Discussed proper diabetic diet in addition to the stated above to ensure adequate wound healing. Patient states that his sugars have been up but not above 200. does state he does eat things that he should not though. He has continued taking the instructed supplements for his neuropathy consisting of of complex B vitamin daily, magnesium 250 mg daily, alpha lipoic acid 300 mg daily, and 500 mg glutamine supplement. Discussed continuing to take it and allow time for the nerves to continue repair. Discussed signs and symptoms of infection. Discussed with the patient if he notices redness about the wound margins that continues to spread or moves up the leg, any purulent drainage from the wound site, increasing foul odor from the wound or if he experiences fever greater than 101 degree accompanied by nausea, vomiting, chills, that these are signs of a progressing infection and he should report to the ED for IV antibiotics and further evaluation. He and his voiced understanding of this today. The following work up and care recommendations were made: Dressing: Joelle to wound base right heel. Change daily. EpiFix graft, wound veil, Steri-Strips, nurse hat to right hallux. May change outer dressings as needed to right hallux. Continue Tubigrip compression Wash: Soap and water Right Heel, Do not get Right Hallux wet Tissue growth optimization: Joelle right Heel; EpiFix Right Hallux. Offload: Elevating lower extremities at rest and Tubigrip compression. Offload with surgical shoe. Vascular: DP and PT pulses are weakly palpable with adequate capillary fill time. Do not feel that vascular status is affecting wound healing. Edema: Continue elevating lower extremities at all times of rest. Continue wearing Tubigrip compression stocking. Discussed eventual change to a standard prescription compression stocking once wounds have healed. Infection: No signs of infection. Wound cultures were taken given patient's prior history of recurrent bacterial infection at the sites. Pain: May take [id number] Tylenol for discomfort Host factors: DM type II with peripheral polyneuropathy, HTN, morbid obesity, lymphedema I answered all the patient's questions. To return to the wound healing center in 2 weeks or call sooner if the patient has any questions or concerns.
[2024-02-07 10:42] VITALS: BP 154/71; PULSE 73; RESP 20; TEMP 36.4
== END 2024-02-10 23:59 | disposition home or self-care (01) ==
LOC: WC 10:45
PROVIDERS: PCP Internal Medicine; Referring Provider Internal Medicine; Visit Provider Student in an Organized Health Care Education/Training Program
DX: E11.621 Type 2 diabetes mellitus with foot ulcer (principal); L97.512 Non-pressure chronic ulcer of other part of right foot with fat layer exposed; L97.412 Non-pressure chronic ulcer of right heel and midfoot with fat layer exposed; E11.42 Type 2 diabetes mellitus with diabetic polyneuropathy; Z79.4 Long term (current) use of insulin; E78.00 Pure hypercholesterolemia, unspecified; R60.0 Localized edema; I89.0 Lymphedema, not elsewhere classified; I10 Essential (primary) hypertension; R53.81 Other malaise; Z79.82 Long term (current) use of aspirin; Z79.85 Long-term (current) use of injectable non-insulin antidiabetic drugs; Z79.01 Long term (current) use of anticoagulants; Z79.899 Other long term (current) drug therapy; Z96.652 Presence of left artificial knee joint
CPT/HCPCS: 11042; 15275; Q4186

== ENCOUNTER 2024-03-06 10:15 | Outpatient (RCR) | payer MEDICARE, BC, SELFPAY ==
[2024-02-11 00:45] VITALS: BP 109/90; PULSE 84; RESP 22; TEMP 36.5
[2024-02-13 11:01] VITALS: BP 152/82; PULSE 84; RESP 14; TEMP 37.1
--- NOTE | 2024-02-13 12:11 | PCM.WC.PN ---
History of Present Illness Date of Service: 02/13/24 Chief Complaint: Right heel ulcer and right hallux ulcer History of Wound: 67 year old male presents to the wound center for evaluation of his right heal ulcer. It started as a a pressure ulcer in February 2022 when he he was in TCU and it healed. It then became a blister right before his Left TKR surgery. He had his left knee replaced 07/14/22 at [facility]. 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 He also has a history of diabetes type II with peripheral polyneuropathy, HTN, lymphedema, hypercholesterolemia and PE that he is on Xerelto. Wound culture obtained on 08/30/22 which are positive for VRE, Kocuria kristinae and Corynebacterium striatum. He will completed the Linezolid. Wound culture obtained 06/20/23 which was positive for Staphylococcus pseudintermediu, Pseudomonas aeruginosa, Corynebacterium minutissiumum, and Anaerobic cocci. He was started on Levaquin and Flagyl. Foot xray 09/27/22 - Osteopenia with diffuse osteoarthritic changes. Diffuse soft tissue swelling with ossification of the distal Achilles tendon. No acute abnormality or evidence of erosive changes. Did undergo updated radiograph of the right foot 11/08/2023 with no noted changes from previous x-ray. This is a recurring ulceration to both distal medial tuft of the right hallux and posterior lateral heel. He states both sites had scabbed up and he was previously discharged however scabs have later broken down with re-ulceration. Wound care -currently applying Joelle daily and is offloading and surgical shoe to the right foot. He denies any fever, chills, nausea and vomiting. Denies further complaints. Progress of Wound: Courtesy visit for Dr. Dasilva. Subjective Subjective Patient is pleased with outcomes Objective Data Objective Data Area was pared down and callus was debrided with #15 blade and a #7 curette tolerated treatment well. EpiFix #2 was applied to right great toe Vital Signs: Vital Signs Temp Pulse Resp BP 98.7 F 84 14 152/82 H 02/13/24 11:01 02/13/24 11:01 02/13/24 11:01 02/13/24 11:01 Physical Exam Const alert, oriented x3, no apparent distress and well nourished General Appearance: cooperative Nutritional Appearance: morbidly obese HEENT normocephalic Eyes General Eye: normal appearance of both eyes Neck General: normal visual inspection Lymph Lymphatic: lymphedema Resp normal respiratory effort Cardio regular rate and regular rhythm Extremity normal capillary refill, no joint enlargement and no calf tenderness Extremity Narrative: Right lower extremity: Vascular: DP and PT pulses weakly palpable. CFT less than 5 seconds to the digits. Normal temperature gradient. Hair growth is absent to digits/foot. Neurologic: Gross sensation intact. Decreased light touch sensation. Absent protective sensation tested with 5.07g [place] Zen monofilament. Lack of protective sensation consistent with diabetic peripheral polyneuropathy Dermatologic: There is varicosities noted to the lower extremity with subsequent edema about foot and LIANNA ankle. There is hyperkeratosis of the distal hallux tuft rim with ulceration with healthy granular tissue. There is a posterior lateral heel ulceration with granular wound base and hyperkeratosis at the wound margin. No signs of infection. Musculoskeletal: Muscle strength 5 of 5 age-appropriate. Decreased range of motion of the ankle joint in dorsiflexion with the knee extended without pain or crepitus. Decreased range of motion of the first metatarsophalangeal joint without pain or crepitus. There is hammertoe deformity of digits 1 through 5. Skin no rashes or lesions noted, skin turgor normal and no jaundice General Skin Exam: venous stasis and dermatitis Neuro moves all extremities Debridement Note Debridement Note Wound debrided: Right hallux Laterality: Right Wound Grade/Stage: Gomez stage I Type of Debridement: Excisional debridement Anesthesia Used: 5% Lidocaine Gel Depth: Down to and including healthy tissue and in the subcutaneous layer Percentage of wound debrided: 100 Instrument Used: 7mm curette and #15 blade Tissue Removed: Fibrous, devitalized subcutaneous, biofilm, slough Severity: Fat Layer Exposed Amount of bleeding with debridement: Mild Bleeding Controlled with: Compression and gauze Patient tolerated procedure: Patient tolerated procedure well Post-Debridement Measurements and Additional Note: Post-Debridement Measurements/Treatment WC - Nurse 1 - General Ulcer Assessment Start: 02/13/24 11:01 Freq: Status: Active Protocol: CHRISTYT Activity Type Activity Date Activity User E-sign Co-sign Detail Recorded Client Recorded Date Recorded By Document 02/13/24 11:01 ML [email or web address] 02/13/24 11:14 ML 02/13/24 11:01 WC - Today's Visit Information Type of service 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 ) Arrival Mode Ambulatory Transfer Assistance None Patient Identification Verified (Name & Yes ) Patient Requires Transmission-Based No Precautions Finger Stick Blood Sugar(mg/dl) (if 151 indicated): Blood Sugar Stated by Patient Vital Signs Temperature (97.8 F-99.1 F) 98.7 F Temperature Source Temporal Pulse Rate (60-100) 84 Pulse Location Monitor Respiratory Rate (12-18) 14 Respiratory rate source Observation Blood Pressure (90/60-120/80) 152/82 H Blood Pressure Mean (mm Hg) 105 Source Monitor Position Sitting Blood Pressure Location Left Forearm History Since Last Visit- (Skip if this is Patient's initial visit) Have you changed medications since your No last visit? Any new allergies or adverse reactions No Had a fall/change in ADL's that may No increase risk of falls Signs or symptoms of abuse and/or No neglect since last visit Have you been in the hospital since your No last visit? Has dressing in place as prescribed Yes Has compression in place as prescribed Yes Has offloadiing in place as prescribed Yes Experienced any changes in pain level or No management Left Footwear Surgical Shoe with pressure relief insole Right Footwear Regular Shoe Pain Scale: 0-10 Numeric Is Patient Pain Free? Yes - Nurse 1 - General Ulcer Measurement Start: 02/13/24 11:01 Freq: Status: Active Protocol: Activity Type Activity Date Activity User E-sign Co-sign Detail Recorded Client Recorded Date Recorded By Document 02/13/24 11:01 ML [email or web address] 02/13/24 11:14 ML 02/13/24 11:01 Wound Center Nurse 1 #4 RT GREAT TOE -Current Size (cm) - Length 0.5 -Current Size (cm) - Width 0.5 -Current Size (cm) - Depth 0.1 -Total Square Cm 0.25 -Exudate Amt Medium -Exudate Type Serosanguineous -Wound Margin Distinct, Outline Attached -Granulation Amt Medium (34-66%) -Necrosis Amt Medium (34-66%) -Necrotic Tissue Type Adherent Slough -Temperature (Lianna-wound Skin No Abnormality Appearance) (Pt Warm) -Tenderness on Palpation (Lianna-wound No Skin Appearance) -Ulcer Cleansing Soap and Water -Foul Odor after Cleansing No -Anesthetic Used 5% Lidocaine Gel #3 RT HEEL -Current Size (cm) - Length 0.1 -Current Size (cm) - Width 0.1 -Current Size (cm) - Depth 0.3 -Total Square Cm 0.01 -Exudate Amt Medium -Exudate Type Serosanguineous -Wound Margin Distinct, Outline Attached -Granulation Amt Medium (34-66%) -Slough/Fibrin Yes -Necrosis Amt Medium (34-66%) -Necrotic Tissue Type Adherent Slough -Texture (Lianna-wound Skin Appearance) No Abnormality -Moisture (Lianna-wound Skin Appearance) No Abnormality -Color (Lianna-wound Skin Appearance) No Abnormality -Temperature (Lianna-wound Skin No Abnormality Appearance) (Pt Warm) -Tenderness on Palpation (Lianna-wound No Skin Appearance) -Ulcer Cleansing Soap and Water -Foul Odor after Cleansing No -Anesthetic Used 5% Lidocaine Gel WC - Nurse 2 - General Ulcer CM Notes Start: 02/13/24 11:01 Freq: Status: Active Protocol: Activity Type Activity Date Activity User E-sign Co-sign Detail Recorded Client Recorded Date Recorded By Document 02/13/24 11:31 [facility] [email or web address] 02/13/24 11:46 [facility] 02/13/24 11:31 Wound Center Nurse 2 #4 RT GREAT TOE -Time 11:31 -Correct Patient Yes -Correct Side, Site, Position Yes -Correct Procedure Yes -Procedure Performed Yes -Type of Procedure Debridement -Clinical Debridement Subcutaneous -Tissue Removed Subcutaneous -Post Debridement (cm) - Length 1 -Post Debridement (cm) - Width 1.5 -Post Debridement (cm) - Depth 0.1 -Total Square (Post) (cm) 1.5 -Area of Debridement (cm) - Length 1 -Area of Debridement (cm) - Width 1.5 -Total Square (Area) (cm) 1.5 -Tunneling No -Undermining/Tunneling No -Circular Undermining No -Wound/Ulcer Outcome Not Healed -Ulcer Cleansing Rinsed/ Irrigated with Saline -Foul Odor after Cleansing No -Bioengineered Tissue Yes -Expiration Date 08/13/28 -Product Lot Number [id number] -Percent Used 100 -Lot number of Saline Used [id number] -Bleeding Controlled with Pressure -Treatment Response Procedure Tolerated Well -Offloading Yes -Type of Offloading Surgical Shoe -Debridement - Subq, 1st 20sq cm No -Apply Skin Sub - 1st 25 sq cm - Feet 1 -Epifix 18mm Disc 3 #3 RT HEEL -Time 11:44 -Post Debridement (cm) - Length 0.2 -Post Debridement (cm) - Width 0.2 -Post Debridement (cm) - Depth 0.1 -Total Square (Post) (cm) 0.04 -Area of Debridement (cm) - Length 0.2 -Area of Debridement (cm) - Width 0.2 -Total Square (Area) (cm) 0.04 -Tunneling No -Undermining/Tunneling No -Circular Undermining No -Wound/Ulcer Outcome Not Healed -Bleeding Controlled with NA Pain Scale: 0-10 Numeric Is Patient Pain Free? Yes - Nurse 3 - General Ulcer D/C NN Start: 02/13/24 11:01 Freq: Status: Active Protocol: Activity Type Activity Date Activity User E-sign Co-sign Detail Recorded Client Recorded Date Recorded By Document 02/13/24 11:58 RB wound 02/13/24 12:00 RB 02/13/24 11:58 Wound Care Center Nurse 3 #4 RT GREAT TOE -Primary Dressing Covered/Secured with Dry Gauze,Dry Gauze & Roll Gauze,Secured with Tape #3 RT HEEL -Primary Dressing Applied Aquacel Extra, Mepilex Border -Aquacel Extra 1 -Mepilex Border 1 Right -Tubular Bandage Single Layer -Size of Tubigrip Used Size F -Size F ($) 1 Treatment Response Procedure Tolerated Well Pain Scale: 0-10 Numeric Is Patient Pain Free? Yes WC - Visit Discharge Discharge Condition Stable Ambulatory Status Ambulatory Transportation Private Auto Medication Reconcilliation completed & No provided to patient/care provider Clinical Summary of Care Provided Yes Additional Wound Wound debrided: Right posterior lateral heel Laterality: Right Wound Grade/Stage: Gomez stage I Type of Debridement: Excisional debridement Anesthesia Used: 5% Lidocaine Gel Depth: Down to and including healthy tissue and in the subcutaneous layer Percentage of wound debrided: 100 Instrument Used: #15 blade Tissue Removed: Fibrous, devitalized subcutaneous, biofilm, slough Severity: Fat Layer Exposed Amount of bleeding with debridement: Mild Bleeding Controlled with: Compression and gauze Patient tolerated procedure: Patient tolerated procedure well Assessment/Plan Assessment/Plan (1) Non-pressure chronic ulcer of other part of right foot with fat layer exposed: CODE(S): L97.512 - Non-pressure chronic ulcer of other part of right foot with fat layer exposed (2) Chronic ulcer of right heel with fat layer exposed: CODE(S): L97.412 - Non-pressure chronic ulcer of right heel and midfoot with fat layer exposed (3) Acute painful diabetic polyneuropathy: CODE(S): E11.42 - Type 2 diabetes mellitus with diabetic polyneuropathy (4) Type 2 diabetes mellitus with foot ulcer: CODE(S): E11.621 - Type 2 diabetes mellitus with foot ulcer; L97.509 - Non-pressure chronic ulcer of other part of unspecified foot with unspecified severity QUALIFIERS: Diabetes mellitus medical terminologist insulin use: with half-way use Qualified Code(s): E11.621 - Type 2 diabetes mellitus with foot ulcer; L97.509 - Non-pressure chronic ulcer of other part of unspecified foot with unspecified severity; 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 Dasilva patient was seen and EpiFix #2 applied. Wound veil over top with Steri-Strips and moisture applied Dry gauze dressing over top patient's not to touch down to Steri-Strips if it bleeds through Follow-up 1 week
[2024-02-21 10:07] VITALS: BP 157/76; PULSE 80; RESP 20; TEMP 36.2
--- NOTE | 2024-02-21 11:47 | PCM.WC.PN ---
History of Present Illness Date of Service: 02/21/24 Chief Complaint: Right heel ulcer and right hallux ulcer History of Wound: 68 year old male presents to the wound center for evaluation of his right heal ulcer. It started as a a pressure ulcer in February 2022 when he he was in TCU and it healed. It then became a blister right before his Left TKR surgery. He had his left knee replaced 07/14/22 at [facility]. 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 He also has a history of diabetes type II with peripheral polyneuropathy, HTN, lymphedema, hypercholesterolemia and PE that he is on Xerelto. Wound culture obtained on 08/30/22 which are positive for VRE, Kocuria kristinae and Corynebacterium striatum. He will completed the Linezolid. Wound culture obtained 06/20/23 which was positive for Staphylococcus pseudintermediu, Pseudomonas aeruginosa, Corynebacterium minutissiumum, and Anaerobic cocci. He was started on Levaquin and Flagyl. Foot xray 09/27/22 - Osteopenia with diffuse osteoarthritic changes. Diffuse soft tissue swelling with ossification of the distal Achilles tendon. No acute abnormality or evidence of erosive changes. Did undergo updated radiograph of the right foot 11/08/2023 with no noted changes from previous x-ray. This is a recurring ulceration to both distal medial tuft of the right hallux and posterior lateral heel. He states both sites had scabbed up and he was previously discharged however scabs have later broken down with re-ulceration. Wound care -currently applying Joelle daily and is offloading and surgical shoe to the right foot. He denies any fever, chills, nausea and vomiting. Denies further complaints. Progress of Wound: Courtesy visit for Dr. Dasilva. Subjective Subjective This is a 68-year-old male who presents to the wound care center for follow-up of right hallux distal tuft ulceration and right posterior lateral calcaneal ulceration. Patient does report history of recurring ulcerations of these 2 specific sites over the last several years. He is still on doxycycline for his knee. States he has left graft intact at the heel and is changing dressings as needed. He continues to offload heel while sleeping with PRAFO boot. Continues to dress Right Hallux daily with assistance from . He reports seeing Tami Barboza NP for courtesy visit last week. Denies constitutional symptoms. Denies further complaints. Objective Data Objective Data Vital Signs: Vital Signs Temp Pulse Resp BP 97.1 F L 80 20 H 157/76 H 02/21/24 10:07 02/21/24 10:07 02/21/24 10:07 02/21/24 10:07 Physical Exam Const alert, oriented x3 and no apparent distress Nutritional Appearance: morbidly obese HEENT normocephalic Eyes General Eye: normal appearance of both eyes Neck General: normal visual inspection Lymph Lymphatic: no lymphadenopathy noted and no lymphedema noted Resp normal respiratory effort Cardio regular rate and regular rhythm Extremity normal capillary refill, no joint enlargement, no calf tenderness and no pedal edema Extremity Narrative: Right lower extremity: Vascular: DP and PT pulses weakly palpable. CFT less than 5 seconds to the digits. Normal temperature gradient. Hair growth is absent to digits/foot. Neurologic: Gross sensation intact. Decreased light touch sensation. Absent protective sensation tested with 5.07g [place] Zen monofilament. Lack of protective sensation consistent with diabetic peripheral polyneuropathy Dermatologic: There is varicosities noted to the lower extremity with subsequent edema about foot and LIANNA ankle. There is hyperkeratosis of the distal hallux tuft rim with ulceration with healthy granular tissue. There is a posterior lateral heel ulceration with granular wound base and hyperkeratosis at the wound margin. No signs of infection. Musculoskeletal: Muscle strength 5 of 5 age-appropriate. Decreased range of motion of the ankle joint in dorsiflexion with the knee extended without pain or crepitus. Decreased range of motion of the first metatarsophalangeal joint without pain or crepitus. There is hammertoe deformity of digits 1 through 5. Skin no rashes or lesions noted, skin turgor normal and no jaundice General Skin Exam: venous stasis and dermatitis Neuro moves all extremities Debridement Note Debridement Note Wound debrided: Right hallux Laterality: Right Wound Grade/Stage: Gomez stage I Type of Debridement: Excisional debridement Anesthesia Used: 5% Lidocaine Gel Depth: Down to and including healthy tissue and in the subcutaneous layer Percentage of wound debrided: 100 Instrument Used: #15 blade Tissue Removed: Fibrous, devitalized subcutaneous, biofilm, slough Severity: Fat Layer Exposed Amount of bleeding with debridement: Mild Bleeding Controlled with: Compression and gauze Patient tolerated procedure: Patient tolerated procedure well Post-Debridement Measurements and Additional Note: Post-Debridement Measurements/Treatment LAM - Nurse 1 - General Ulcer Assessment Start: 02/13/24 11:01 Freq: Status: Active Protocol: NELL Activity Type Activity Date Activity User E-sign Co-sign Detail Recorded Client Recorded Date Recorded By Document 02/13/24 11:01 ML 10..25.7 02/13/24 11:14 ML Document 02/21/24 10:07 DL 10.10.25.7 02/21/24 10:18 DL 02/13/24 02/21/24 11:01 10:07 WC - Today's Visit Information Type of service Follow-up Visit Follow-up Visit (Physician/TECHNICAL SOLUTIONS DIRECTOR (Physician/TECHNICAL SOLUTIONS DIRECTOR ) ) Arrival Mode Ambulatory Ambulatory, Walker Transfer Assistance None None Patient Identification Verified (Name & Yes Yes ) Patient Requires Transmission-Based No No Precautions Finger Stick Blood Sugar(mg/dl) (if 151 172 indicated): Blood Sugar Stated by Stated by Patient Patient Vital Signs Temperature (97.8 F-99.1 F) 98.7 F 97.1 F L Temperature Source Temporal Temporal Pulse Rate (60-100) 84 80 Pulse Location Monitor Monitor Respiratory Rate (12-18) 14 20 H Respiratory rate source Observation Observation Blood Pressure (90/60-120/80) 152/82 H 157/76 H Blood Pressure Mean (mm Hg) 105 103 Source Monitor Monitor Position Sitting Blood Pressure Location Left Forearm History Since Last Visit- (Skip if this is Patient's initial visit) Have you changed medications since your No No last visit? Any new allergies or adverse reactions No No Had a fall/change in ADL's that may No No increase risk of falls Signs or symptoms of abuse and/or No No neglect since last visit Have you been in the hospital since your No No last visit? Has dressing in place as prescribed Yes Yes Has compression in place as prescribed Yes Yes Has offloadiing in place as prescribed Yes Yes Experienced any changes in pain level or No No management Left Footwear Surgical Shoe with pressure relief insole Right Footwear Regular Shoe Surgical Shoe with pressure relief insole Pain Scale: 0-10 Numeric Is Patient Pain Free? Yes Yes LAM - Nurse 1 - General Ulcer Measurement Start: 02/13/24 11:01 Freq: Status: Active Protocol: Activity Type Activity Date Activity User E-sign Co-sign Detail Recorded Client Recorded Date Recorded By Document 02/13/24 11:01 ML ..25.7 02/13/24 11:14 ML Document 02/21/24 10:07 DL ..25.7 02/21/24 10:18 DL 02/13/24 02/21/24 11:01 10:07 Wound Center Nurse 1 #4 RT GREAT TOE -Current Size (cm) - Length 0.5 0.5 -Current Size (cm) - Width 0.5 0.8 -Current Size (cm) - Depth 0.1 0.1 -Total Square Cm 0.25 0.40 -Photo Taken Yes -Exudate Amt Medium Medium -Exudate Type Serosanguineous Serosanguineous -Wound Margin Distinct, Distinct, Outline Outline Attached Attached -Granulation Amt Medium (34-66%) Large (67-100%) -Granulation Quality Red -Necrosis Amt Medium (34-66%) Small (1-33%) -Necrotic Tissue Type Adherent Slough Adherent Slough -Structure Exposed N/A -Texture (Lianna-wound Skin Appearance) Scarring -Moisture (Lianna-wound Skin Appearance) Dry/Scaly -Color (Lianna-wound Skin Appearance) Hemosiderin Staining -Temperature (Lianna-wound Skin No Abnormality No Abnormality Appearance) (Pt Warm) (Pt Warm) -Tenderness on Palpation (Lianna-wound No Skin Appearance) -Ulcer Cleansing Soap and Water Soap and Water -Foul Odor after Cleansing No No -Anesthetic Used 5% Lidocaine 5% Lidocaine Gel Gel #3 RT HEEL -Current Size (cm) - Length 0.1 0.1 -Current Size (cm) - Width 0.1 0.1 -Current Size (cm) - Depth 0.3 0.1 -Total Square Cm 0.01 0.01 -Photo Taken Yes -Exudate Amt Medium None Present -Exudate Type Serosanguineous -Wound Margin Distinct, Thickened Outline Attached -Granulation Amt Medium (34-66%) Small (1-33%) -Granulation Quality Pale -Slough/Fibrin Yes -Necrosis Amt Medium (34-66%) Small (1-33%) -Necrotic Tissue Type Adherent Slough Eschar -Structure Exposed N/A -Texture (Lianna-wound Skin Appearance) No Abnormality Scarring -Moisture (Lianna-wound Skin Appearance) No Abnormality No Abnormality, Dry/Scaly -Color (Lianna-wound Skin Appearance) No Abnormality Hemosiderin Staining -Temperature (Lianna-wound Skin No Abnormality No Abnormality Appearance) (Pt Warm) (Pt Warm) -Tenderness on Palpation (Lianna-wound No Skin Appearance) -Ulcer Cleansing Soap and Water Soap and Water -Foul Odor after Cleansing No No -Anesthetic Used 5% Lidocaine 5% Lidocaine Gel Gel Right Calf (cm) 47 Right Ankle (cm) 27.5 WC - Nurse 2 - General Ulcer CM Notes Start: 02/13/24 11:01 Freq: Status: Active Protocol: Activity Type Activity Date Activity User E-sign Co-sign Detail Recorded Client Recorded Date Recorded By Document 02/13/24 11:31 BMF 10.10.25.7 02/13/24 11:46 BMF Document 02/21/24 10:34 BMF 10.10.25.7 02/21/24 10:46 BMF 02/13/24 02/21/24 11:31 10:34 Wound Center Nurse 2 #4 RT GREAT TOE -Time 11:31 10:40 -Correct Patient Yes Yes -Correct Side, Site, Position Yes Yes -Correct Procedure Yes Yes -Procedure Performed Yes Yes -Type of Procedure Debridement Debridement -Clinical Debridement Subcutaneous Subcutaneous -Tissue Removed Subcutaneous Subcutaneous -Post Debridement (cm) - Length 1 1.5 -Post Debridement (cm) - Width 1.5 1.4 -Post Debridement (cm) - Depth 0.1 0.1 -Total Square (Post) (cm) 1.5 2.10 -Area of Debridement (cm) - Length 1 1.5 -Area of Debridement (cm) - Width 1.5 0.4 -Total Square (Area) (cm) 1.5 0.60 -Tunneling No No -Undermining/Tunneling No No -Circular Undermining No No -Wound/Ulcer Outcome Not Healed Not Healed -Ulcer Cleansing Rinsed/ Rinsed/ Irrigated with Irrigated with Saline Saline -Foul Odor after Cleansing No No -Bioengineered Tissue Yes Yes -Type of Bioengineered Tissue Epifix 18mm Disc -Expiration Date 08/13/28 09/13/28 -Product Lot Number [id number] -Percent Used 100 100 -Lot number of Saline Used [id number] -Bleeding Controlled with Pressure Pressure -Treatment Response Procedure Procedure Tolerated Well Tolerated Well -Offloading Yes Yes -Type of Offloading Surgical Shoe Surgical Shoe -Debridement - Subq, 1st 20sq cm No No -Apply Skin Sub - 1st 25 sq cm - Feet 1 1 -Epifix 18mm Disc 3 3 #3 RT HEEL -Time 11:44 10:35 -Post Debridement (cm) - Length 0.2 0.1 -Post Debridement (cm) - Width 0.2 0.1 -Post Debridement (cm) - Depth 0.1 0.1 -Total Square (Post) (cm) 0.04 0.01 -Area of Debridement (cm) - Length 0.2 0.1 -Area of Debridement (cm) - Width 0.2 0.1 -Total Square (Area) (cm) 0.04 0.01 -Tunneling No No -Undermining/Tunneling No No -Circular Undermining No -Wound/Ulcer Outcome Not Healed Not Healed -Bleeding Controlled with NA NA Pain Scale: 0-10 Numeric Is Patient Pain Free? Yes Yes - Nurse 3 - General Ulcer D/C NN Start: 02/13/24 11:01 Freq: Status: Active Protocol: Activity Type Activity Date Activity User E-sign Co-sign Detail Recorded Client Recorded Date Recorded By Document 02/13/24 11:58 RB wound 02/13/24 12:00 RB Document 02/21/24 11:04 NE [id number] 02/21/24 11:05 NE 02/13/24 02/21/24 11:58 11:04 Wound Care Center Nurse 3 #4 RT GREAT TOE -Primary Dressing Covered/Secured with Dry Gauze,Dry Dry Gauze & Gauze & Roll Roll Gauze, Gauze,Secured Secured with with Tape Tape #3 RT HEEL -Primary Dressing Applied Aquacel Extra, Mepilex Border Mepilex Border -Aquacel Extra 1 -Mepilex Border 1 1 Right -Tubular Bandage Single Layer Single Layer -Size of Tubigrip Used Size F Size F -Size F ($) 1 1 Treatment Response Procedure Tolerated Well Pain Scale: 0-10 Numeric Is Patient Pain Free? Yes Yes - Visit Discharge Discharge Condition Stable Ambulatory Status Ambulatory Transportation Private Auto Medication Reconcilliation completed & No provided to patient/care provider Clinical Summary of Care Provided Yes Assessment/Plan Assessment/Plan (1) Chronic ulcer of right heel with fat layer exposed: CODE(S): L97.412 - Non-pressure chronic ulcer of right heel and midfoot with fat layer exposed (2) Non-pressure chronic ulcer of other part of right foot with fat layer exposed: CODE(S): L97.512 - Non-pressure chronic ulcer of other part of right foot with fat layer exposed (3) Acute painful diabetic polyneuropathy: CODE(S): E11.42 - Type 2 diabetes mellitus with diabetic polyneuropathy (4) Type 2 diabetes mellitus with foot ulcer: CODE(S): E11.621 - Type 2 diabetes mellitus with foot ulcer; L97.509 - Non-pressure chronic ulcer of other part of unspecified foot with unspecified severity QUALIFIERS: Diabetes mellitus nursing home insulin use: with nursing home use Qualified Code(s): E11.621 - Type 2 diabetes mellitus with foot ulcer; L97.509 - Non-pressure chronic ulcer of other part of unspecified foot with unspecified severity; Z79.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 Right hallux distal tuft ulceration measures 1.5 cm x 1.5 cm x 0.1 cm and right posterior lateral heel ulceration measures 0.1 cm x 0.1 cm x 0.1 cm. No signs of infection. Joelle to the Right Heel. He is to change dressing daily. EpiFix graft #3 was applied to the right Hallux and dressed with Adaptic touch and anchored with Steri-Strips and dressed with dry sterile dressing. Ulcerations demonstrate continued reduction in size versus previous visit. Overall continuing to heal well with good granulation tissue. Right heal is nearing closure. Cultures were obtained in wound center for 11/15/2023. Culture of right hallux demonstrates Staph aureus, staph simulans, corynebacterium minutissimum; culture right heel demonstrates Staphylococcus psuedintermediu. Clindamycin 150 mg 3 times daily stop date 12/06/2023. He completed oral antibiotic. He was approved for EpiFix graft for Right heel and has finished all 10 applications. He was approved for EpiFix for Right Hallux, and will continue application. Discussed continuing to offload right foot in surgical shoe. Recommended continued offloading while in bed with foam waffle boot. Patient was urged on this in the past however has not continued to offload while sleeping. He states that offloading is difficult at night with the waffle boot, discussed ensuring the boot is strapped on properly so that does not come off at night. If this remains a difficult issue we will consider different means of offloading. Discussed continued wearing of Tubigrip compression stockings until ulcerations have healed at which time he will change to bilateral compression stocking. Discussed continuing to elevate feet at all times of rest for edema control. Discussed adequate protein intake to continue to aid in wound healing. Florentin supplementation was recommended. Discussed proper diabetic diet in addition to the stated above to ensure adequate wound healing. Patient states that his sugars have been up but not above 200. does state he does eat things that he should not though. He has continued taking the instructed supplements for his neuropathy consisting of of complex B vitamin daily, magnesium 250 mg daily, alpha lipoic acid 300 mg daily, and 500 mg glutamine supplement. Discussed continuing to take it and allow time for the nerves to continue repair. Discussed signs and symptoms of infection. Discussed with the patient if he notices redness about the wound margins that continues to spread or moves up the leg, any purulent drainage from the wound site, increasing foul odor from the wound or if he experiences fever greater than 101 degree accompanied by nausea, vomiting, chills, that these are signs of a progressing infection and he should report to the ED for IV antibiotics and further evaluation. He and his voiced understanding of this today. The following work up and care recommendations were made: Dressing: Joelle to wound base right heel. Change daily. EpiFix graft, wound veil, Steri-Strips, nurse hat to right hallux. May change outer dressings as needed to right hallux. Continue Tubigrip compression Wash: Soap and water Right Heel, Do not get Right Hallux wet Tissue growth optimization: Joelle right Heel; EpiFix Right Hallux. Offload: Elevating lower extremities at rest and Tubigrip compression. Offload with surgical shoe. Vascular: DP and PT pulses are weakly palpable with adequate capillary fill time. Do not feel that vascular status is affecting wound healing. Edema: Continue elevating lower extremities at all times of rest. Continue wearing Tubigrip compression stocking. Discussed eventual change to a standard prescription compression stocking once wounds have healed. Infection: No signs of infection. Wound cultures were taken given patient's prior history of recurrent bacterial infection at the sites. Pain: May take [id number] Tylenol for discomfort Host factors: DM type II with peripheral polyneuropathy, HTN, morbid obesity, lymphedema I answered all the patient's questions. To return to the wound healing center in 2 weeks or call sooner if the patient has any questions or concerns.
--- NOTE | 2024-03-06 10:16 | PCM.WC.PN ---
History of Present Illness Date of Service: 03/06/24 Chief Complaint: Right heel ulcer and right hallux ulcer History of Wound: 68 year old male presents to the wound center for evaluation of his right heal ulcer. It started as a a pressure ulcer in February 2022 when he he was in TCU and it healed. It then became a blister right before his Left TKR surgery. He had his left knee replaced 07/14/22 at [facility]. 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 He also has a history of diabetes type II with peripheral polyneuropathy, HTN, lymphedema, hypercholesterolemia and PE that he is on Xerelto. Wound culture obtained on 08/30/22 which are positive for VRE, Kocuria kristinae and Corynebacterium striatum. He will completed the Linezolid. Wound culture obtained 06/20/23 which was positive for Staphylococcus pseudintermediu, Pseudomonas aeruginosa, Corynebacterium minutissiumum, and Anaerobic cocci. He was started on Levaquin and Flagyl. Foot xray 09/27/22 - Osteopenia with diffuse osteoarthritic changes. Diffuse soft tissue swelling with ossification of the distal Achilles tendon. No acute abnormality or evidence of erosive changes. Did undergo updated radiograph of the right foot 11/08/2023 with no noted changes from previous x-ray. This is a recurring ulceration to both distal medial tuft of the right hallux and posterior lateral heel. He states both sites had scabbed up and he was previously discharged however scabs have later broken down with re-ulceration. Wound care -currently applying Joelle daily and is offloading and surgical shoe to the right foot. He denies any fever, chills, nausea and vomiting. Denies further complaints. Progress of Wound: Courtesy visit for Dr. Dasilva. Subjective Subjective This is a 68-year-old male who presents to the wound care center for follow-up of right hallux distal tuft ulceration and right posterior lateral calcaneal ulceration. Patient does report history of recurring ulcerations of these 2 specific sites over the last several years. He is still on doxycycline for his knee. States he has left graft intact at the toe and is changing dressings as needed. He continues to offload heel while sleeping with PRAFO boot. States the Heel ulcer has reopened. Denies constitutional symptoms. Denies further complaints. Objective Data Objective Data Vital Signs: Vital Signs Temp Pulse Resp BP 97.1 F L 80 20 H 157/76 H 02/21/24 10:07 02/21/24 10:07 02/21/24 10:07 02/21/24 10:07 Physical Exam Const alert, oriented x3 and no apparent distress Nutritional Appearance: morbidly obese HEENT normocephalic Eyes General Eye: normal appearance of both eyes Neck General: normal visual inspection Lymph Lymphatic: no lymphadenopathy noted and no lymphedema noted Resp normal respiratory effort Cardio regular rate and regular rhythm Extremity normal capillary refill, no joint enlargement, no calf tenderness and no pedal edema Extremity Narrative: Right lower extremity: Vascular: DP and PT pulses weakly palpable. CFT less than 5 seconds to the digits. Normal temperature gradient. Hair growth is absent to digits/foot. Neurologic: Gross sensation intact. Decreased light touch sensation. Absent protective sensation tested with 5.07g [place] Zen monofilament. Lack of protective sensation consistent with diabetic peripheral polyneuropathy Dermatologic: There is varicosities noted to the lower extremity with subsequent edema about foot and LIANNA ankle. There is hyperkeratosis of the distal hallux tuft rim with ulceration with healthy granular tissue. There is a posterior lateral heel ulceration with granular wound base and hyperkeratosis at the wound margin. No signs of infection. Musculoskeletal: Muscle strength 5 of 5 age-appropriate. Decreased range of motion of the ankle joint in dorsiflexion with the knee extended without pain or crepitus. Decreased range of motion of the first metatarsophalangeal joint without pain or crepitus. There is hammertoe deformity of digits 1 through 5. Skin no rashes or lesions noted, skin turgor normal and no jaundice General Skin Exam: venous stasis and dermatitis Neuro moves all extremities Debridement Note Debridement Note Wound debrided: Right posterior lateral heel Laterality: Right Wound Grade/Stage: Gomez stage I Type of Debridement: Excisional debridement Anesthesia Used: 5% Lidocaine Gel Depth: Down to and including healthy tissue and in the subcutaneous layer Percentage of wound debrided: 100 Instrument Used: #15 blade Tissue Removed: Fibrous, devitalized subcutaneous, biofilm, slough Severity: Fat Layer Exposed Amount of bleeding with debridement: Mild Bleeding Controlled with: Compression and gauze Patient tolerated procedure: Patient tolerated procedure well Post-Debridement Measurements and Additional Note: Post-Debridement Measurements/Treatment WC - Nurse 1 - General Ulcer Assessment Start: 02/13/24 11:01 Freq: Status: Active Protocol: NELL Activity Type Activity Date Activity User E-sign Co-sign Detail Recorded Client Recorded Date Recorded By Document 02/13/24 11:01 ML [id number] 02/13/24 11:14 ML Document 02/21/24 10:07 DL [id number] 02/21/24 10:18 DL 02/13/24 02/21/24 11:01 10:07 WC - Today's Visit Information Type of service Follow-up Visit Follow-up Visit (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 (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 ) ) Arrival Mode Ambulatory Ambulatory, Walker Transfer Assistance None None Patient Identification Verified (Name & Yes Yes ) Patient Requires Transmission-Based No No Precautions Finger Stick Blood Sugar(mg/dl) (if 151 172 indicated): Blood Sugar Stated by Stated by Patient Patient Vital Signs Temperature (97.8 F-99.1 F) 98.7 F 97.1 F L Temperature Source Temporal Temporal Pulse Rate (60-100) 84 80 Pulse Location Monitor Monitor Respiratory Rate (12-18) 14 20 H Respiratory rate source Observation Observation Blood Pressure (90/60-120/80) 152/82 H 157/76 H Blood Pressure Mean (mm Hg) 105 103 Source Monitor Monitor Position Sitting Blood Pressure Location Left Forearm History Since Last Visit- (Skip if this is Patient's initial visit) Have you changed medications since your No No last visit? Any new allergies or adverse reactions No No Had a fall/change in ADL's that may No No increase risk of falls Signs or symptoms of abuse and/or No No neglect since last visit Have you been in the hospital since your No No last visit? Has dressing in place as prescribed Yes Yes Has compression in place as prescribed Yes Yes Has offloadiing in place as prescribed Yes Yes Experienced any changes in pain level or No No management Left Footwear Surgical Shoe with pressure relief insole Right Footwear Regular Shoe Surgical Shoe with pressure relief insole Pain Scale: 0-10 Numeric Is Patient Pain Free? Yes Yes LAM - Nurse 1 - General Ulcer Measurement Start: 02/13/24 11:01 Freq: Status: Active Protocol: Activity Type Activity Date Activity User E-sign Co-sign Detail Recorded Client Recorded Date Recorded By Document 02/13/24 11:01 ML [id number] 02/13/24 11:14 ML Document 02/21/24 10:07 DL 05.22..7 02/21/24 10:18 DL 02/13/24 02/21/24 11:01 10:07 Wound Center Nurse 1 #4 RT GREAT TOE -Current Size (cm) - Length 0.5 0.5 -Current Size (cm) - Width 0.5 0.8 -Current Size (cm) - Depth 0.1 0.1 -Total Square Cm 0.25 0.40 -Photo Taken Yes -Exudate Amt Medium Medium -Exudate Type Serosanguineous Serosanguineous -Wound Margin Distinct, Distinct, Outline Outline Attached Attached -Granulation Amt Medium (34-66%) Large (67-100%) -Granulation Quality Red -Necrosis Amt Medium (34-66%) Small (1-33%) -Necrotic Tissue Type Adherent Slough Adherent Slough -Structure Exposed N/A -Texture (Lianna-wound Skin Appearance) Scarring -Moisture (Lianna-wound Skin Appearance) Dry/Scaly -Color (Lianna-wound Skin Appearance) Hemosiderin Staining -Temperature (Lianna-wound Skin No Abnormality No Abnormality Appearance) (Pt Warm) (Pt Warm) -Tenderness on Palpation (Lianna-wound No Skin Appearance) -Ulcer Cleansing Soap and Water Soap and Water -Foul Odor after Cleansing No No -Anesthetic Used 5% Lidocaine 5% Lidocaine Gel Gel #3 RT HEEL -Current Size (cm) - Length 0.1 0.1 -Current Size (cm) - Width 0.1 0.1 -Current Size (cm) - Depth 0.3 0.1 -Total Square Cm 0.01 0.01 -Photo Taken Yes -Exudate Amt Medium None Present -Exudate Type Serosanguineous -Wound Margin Distinct, Thickened Outline Attached -Granulation Amt Medium (34-66%) Small (1-33%) -Granulation Quality Pale -Slough/Fibrin Yes -Necrosis Amt Medium (34-66%) Small (1-33%) -Necrotic Tissue Type Adherent Slough Eschar -Structure Exposed N/A -Texture (Lianna-wound Skin Appearance) No Abnormality Scarring -Moisture (Lianna-wound Skin Appearance) No Abnormality No Abnormality, Dry/Scaly -Color (Lianna-wound Skin Appearance) No Abnormality Hemosiderin Staining -Temperature (Lianna-wound Skin No Abnormality No Abnormality Appearance) (Pt Warm) (Pt Warm) -Tenderness on Palpation (Lianna-wound No Skin Appearance) -Ulcer Cleansing Soap and Water Soap and Water -Foul Odor after Cleansing No No -Anesthetic Used 5% Lidocaine 5% Lidocaine Gel Gel Right Calf (cm) 47 Right Ankle (cm) 27.5 WC - Nurse 2 - General Ulcer CM Notes Start: 02/13/24 11:01 Freq: Status: Active Protocol: Activity Type Activity Date Activity User E-sign Co-sign Detail Recorded Client Recorded Date Recorded By Document 02/13/24 11:31 BM 10.10.25.7 02/13/24 11:46 BMF Document 02/21/24 10:34 BMF 10.10.25.7 02/21/24 10:46 BMF 02/13/24 02/21/24 11:31 10:34 Wound Center Nurse 2 #4 RT GREAT TOE -Time 11:31 10:40 -Correct Patient Yes Yes -Correct Side, Site, Position Yes Yes -Correct Procedure Yes Yes -Procedure Performed Yes Yes -Type of Procedure Debridement Debridement -Clinical Debridement Subcutaneous Subcutaneous -Tissue Removed Subcutaneous Subcutaneous -Post Debridement (cm) - Length 1 1.5 -Post Debridement (cm) - Width 1.5 1.4 -Post Debridement (cm) - Depth 0.1 0.1 -Total Square (Post) (cm) 1.5 2.10 -Area of Debridement (cm) - Length 1 1.5 -Area of Debridement (cm) - Width 1.5 0.4 -Total Square (Area) (cm) 1.5 0.60 -Tunneling No No -Undermining/Tunneling No No -Circular Undermining No No -Wound/Ulcer Outcome Not Healed Not Healed -Ulcer Cleansing Rinsed/ Rinsed/ Irrigated with Irrigated with Saline Saline -Foul Odor after Cleansing No No -Bioengineered Tissue Yes Yes -Type of Bioengineered Tissue Epifix 18mm Disc -Expiration Date 08/13/28 09/13/28 -Product Lot Number [id number] -Percent Used 100 100 -Lot number of Saline Used [id number] -Bleeding Controlled with Pressure Pressure -Treatment Response Procedure Procedure Tolerated Well Tolerated Well -Offloading Yes Yes -Type of Offloading Surgical Shoe Surgical Shoe -Debridement - Subq, 1st 20sq cm No No -Apply Skin Sub - 1st 25 sq cm - Feet 1 1 -Epifix 18mm Disc 3 3 #3 RT HEEL -Time 11:44 10:35 -Post Debridement (cm) - Length 0.2 0.1 -Post Debridement (cm) - Width 0.2 0.1 -Post Debridement (cm) - Depth 0.1 0.1 -Total Square (Post) (cm) 0.04 0.01 -Area of Debridement (cm) - Length 0.2 0.1 -Area of Debridement (cm) - Width 0.2 0.1 -Total Square (Area) (cm) 0.04 0.01 -Tunneling No No -Undermining/Tunneling No No -Circular Undermining No -Wound/Ulcer Outcome Not Healed Not Healed -Bleeding Controlled with NA NA Pain Scale: 0-10 Numeric Is Patient Pain Free? Yes Yes - Nurse 3 - General Ulcer D/C NN Start: 02/13/24 11:01 Freq: Status: Active Protocol: Activity Type Activity Date Activity User E-sign Co-sign Detail Recorded Client Recorded Date Recorded By Document 02/13/24 11:58 RB wound 02/13/24 12:00 RB Document 02/21/24 11:04 TN [id number] 02/21/24 11:05 TN 02/13/24 02/21/24 11:58 11:04 Wound Care Center Nurse 3 #4 RT GREAT TOE -Primary Dressing Covered/Secured with Dry Gauze,Dry Dry Gauze & Gauze & Roll Roll Gauze, Gauze,Secured Secured with with Tape Tape #3 RT HEEL -Primary Dressing Applied Aquacel Extra, Mepilex Border Mepilex Border -Aquacel Extra 1 -Mepilex Border 1 1 Right -Tubular Bandage Single Layer Single Layer -Size of Tubigrip Used Size F Size F -Size F ($) 1 1 Treatment Response Procedure Tolerated Well Pain Scale: 0-10 Numeric Is Patient Pain Free? Yes Yes - Visit Discharge Discharge Condition Stable Ambulatory Status Ambulatory Transportation Private Auto Medication Reconcilliation completed & No provided to patient/care provider Clinical Summary of Care Provided Yes Additional Wound Wound debrided: Right hallux Laterality: Right Wound Grade/Stage: Gomez stage I Type of Debridement: Excisional debridement Anesthesia Used: 5% Lidocaine Gel Depth: Down to and including healthy tissue and in the subcutaneous layer Percentage of wound debrided: 100 Instrument Used: #15 blade Tissue Removed: Fibrous, devitalized subcutaneous, biofilm, slough Severity: Fat Layer Exposed Amount of bleeding with debridement: Mild Bleeding Controlled with: Compression and gauze Patient tolerated procedure: Patient tolerated procedure well Assessment/Plan Assessment/Plan (1) Chronic ulcer of right heel with fat layer exposed: CODE(S): L97.412 - Non-pressure chronic ulcer of right heel and midfoot with fat layer exposed (2) Non-pressure chronic ulcer of other part of right foot with fat layer exposed: CODE(S): L97.512 - Non-pressure chronic ulcer of other part of right foot with fat layer exposed (3) Acute painful diabetic polyneuropathy: CODE(S): E11.42 - Type 2 diabetes mellitus with diabetic polyneuropathy (4) Type 2 diabetes mellitus with foot ulcer: CODE(S): E11.621 - Type 2 diabetes mellitus with foot ulcer; L97.509 - Non-pressure chronic ulcer of other part of unspecified foot with unspecified severity QUALIFIERS: Diabetes mellitus long term acute care registered nurse insulin use: with long term acute care registered nurse use Qualified Code(s): E11.621 - Type 2 diabetes mellitus with foot ulcer; L97.509 - Non-pressure chronic ulcer of other part of unspecified foot with unspecified severity; Z79.4 - longterm (current) use of insulin (5) Hypertension: CODE(S): I10 - Essential (primary) hypertension QUALIFIERS: Hypertension type: primary hypertension Qualified Code(s): I10 - Essential (primary) hypertension (6) Lymphedema: CODE(S): I89.0 - Lymphedema, not elsewhere classified (7) Debility: CODE(S): R53.81 - Other malaise (8) Lower extremity edema: CODE(S): R60.0 - Localized edema PLAN: Plan Patient seen and evaluated Pre-debridement: Hallux 0.6cm x 0.3cm x 0.1cm ; Right Heel 0.3cm x 0.3cm x 0.2cm Ulcerations debrided as noted in the clinical panel above. Right hallux distal tuft ulceration measures 0.7 cm x 0.4 cm x 0.1 cm and right posterior lateral heel ulceration measures 2.2 cm x 1.0 cm x 0.2 cm. No signs of infection. Joelle to the Right Heel. He is to change dressing daily. EpiFix graft #4 was applied to the right Hallux and dressed with Adaptic touch and anchored with Steri-Strips and dressed with dry sterile dressing. Ulceration at hallux demonstrate continued reduction in size versus previous visit. Right heel demonstrates increased size. Consideration will be given to TCC at next visit. Cultures were obtained in wound center for 11/15/2023. Culture of right hallux demonstrates Staph aureus, staph simulans, corynebacterium minutissimum; culture right heel demonstrates Staphylococcus psuedintermediu. Clindamycin 150 mg 3 times daily stop date 12/06/2023. He completed oral antibiotic. He was approved for EpiFix graft for Right heel and has finished all 10 applications. He was approved for EpiFix for Right Hallux, and will continue application. Discussed continuing to offload right foot in surgical shoe. Recommended continued offloading while in bed with foam waffle boot. Patient was urged on this in the past however has not continued to offload while sleeping. He states that offloading is difficult at night with the waffle boot, discussed ensuring the boot is strapped on properly so that does not come off at night. If this remains a difficult issue we will consider different means of offloading. Discussed continued wearing of Tubigrip compression stockings until ulcerations have healed at which time he will change to bilateral compression stocking. Discussed continuing to elevate feet at all times of rest for edema control. Discussed adequate protein intake to continue to aid in wound healing. Florentin supplementation was recommended. Discussed proper diabetic diet in addition to the stated above to ensure adequate wound healing. Patient states that his sugars have been up but not above 200. does state he does eat things that he should not though. Recent visit with PCP demonstrates increase in weight. He has continued taking the instructed supplements for his neuropathy consisting of of complex B vitamin daily, magnesium 250 mg daily, alpha lipoic acid 300 mg daily, and 500 mg glutamine supplement. Discussed continuing to take it and allow time for the nerves to continue repair. Discussed signs and symptoms of infection. Discussed with the patient if he notices redness about the wound margins that continues to spread or moves up the leg, any purulent drainage from the wound site, increasing foul odor from the wound or if he experiences fever greater than 101 degree accompanied by nausea, vomiting, chills, that these are signs of a progressing infection and he should report to the ED for IV antibiotics and further evaluation. He and his voiced understanding of this today. The following work up and care recommendations were made: Dressing: Joelle to wound base right heel. Change daily. EpiFix graft, wound veil, Steri-Strips, nurse hat to right hallux. May change outer dressings as needed to right hallux. Continue Tubigrip compression Wash: Soap and water Right Heel, Do not get Right Hallux wet Tissue growth optimization: Joelle right Heel; EpiFix Right Hallux. Offload: Elevating lower extremities at rest and Tubigrip compression. Offload with surgical shoe. Vascular: DP and PT pulses are weakly palpable with adequate capillary fill time. Do not feel that vascular status is affecting wound healing. Edema: Continue elevating lower extremities at all times of rest. Continue wearing Tubigrip compression stocking. Discussed eventual change to a standard prescription compression stocking once wounds have healed. Infection: No signs of infection. Wound cultures were taken given patient's prior history of recurrent bacterial infection at the sites. Pain: May take [id number] Tylenol for discomfort Host factors: DM type II with peripheral polyneuropathy, HTN, morbid obesity, lymphedema I answered all the patient's questions. To return to the wound healing center in 1 week or call sooner if the patient has any questions or concerns.
[2024-03-06 10:53] VITALS: BP 124/70; PULSE 78; RESP 18; TEMP 36.1
--- NOTE | 2024-03-12 12:07 | WC ---
PHOTO 03/06/24 RIGHT GREAT TOE
--- NOTE | 2024-03-12 12:13 | WC ---
PHOTO 03/06/24 RIGHT HEEL
== END 2024-03-12 23:59 | disposition home or self-care (01) ==
LOC: WC 10:15
PROVIDERS: PCP Internal Medicine; Referring Provider Internal Medicine; Visit Provider Student in an Organized Health Care Education/Training Program
DX: E11.621 Type 2 diabetes mellitus with foot ulcer (principal); L97.512 Non-pressure chronic ulcer of other part of right foot with fat layer exposed; L97.412 Non-pressure chronic ulcer of right heel and midfoot with fat layer exposed; Z79.4 Long term (current) use of insulin; E11.42 Type 2 diabetes mellitus with diabetic polyneuropathy; R53.81 Other malaise; E78.00 Pure hypercholesterolemia, unspecified; I89.0 Lymphedema, not elsewhere classified; R60.0 Localized edema; I10 Essential (primary) hypertension; Z79.82 Long term (current) use of aspirin; Z79.85 Long-term (current) use of injectable non-insulin antidiabetic drugs; Z79.01 Long term (current) use of anticoagulants; Z79.899 Other long term (current) drug therapy; Z96.652 Presence of left artificial knee joint
CPT/HCPCS: 11042; 15275; Q4186

== ENCOUNTER 2024-04-10 10:00 | Outpatient (RCR) | payer MEDICARE, BC, SELFPAY ==
[2024-03-13 00:23] VITALS: BP 109/90; PULSE 84; RESP 22; TEMP 36.5
[2024-03-13 09:52] VITALS: BP 170/92; PULSE 90; RESP 18; TEMP 36.4
--- NOTE | 2024-03-13 13:19 | PN.PCM_ITS ---
History of Present Illness Date of Service: 03/13/24 Chief Complaint: Right heel ulcer and right hallux ulcer History of Wound: 68 year old male presents to the wound center for evaluation of his right heal ulcer. It started as a a pressure ulcer in February 2022 when he he was in TCU and it healed. It then became a blister right before his Left TKR surgery. He had his left knee replaced 07/14/22 at [facility]. 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 He also has a history of diabetes type II with peripheral polyneuropathy, HTN, lymphedema, hypercholesterolemia and PE that he is on Xerelto. Wound culture obtained on 08/30/22 which are positive for VRE, Kocuria kristinae and Corynebacterium striatum. He will completed the Linezolid. Wound culture obtained 06/20/23 which was positive for Staphylococcus pseudintermediu, Pseudomonas aeruginosa, Corynebacterium minutissiumum, and Anaerobic cocci. He was started on Levaquin and Flagyl. Foot xray 09/27/22 - Osteopenia with diffuse osteoarthritic changes. Diffuse soft tissue swelling with ossification of the distal Achilles tendon. No acute abnormality or evidence of erosive changes. Did undergo updated radiograph of the right foot 11/08/2023 with no noted changes from previous x-ray. This is a recurring ulceration to both distal medial tuft of the right hallux and posterior lateral heel. He states both sites had scabbed up and he was previously discharged however scabs have later broken down with re-ulceration. Wound care -currently applying Joelle daily and is offloading and surgical shoe to the right foot. He denies any fever, chills, nausea and vomiting. Denies further complaints. Subjective Subjective This is a 68-year-old male who presents to the wound care center for follow-up of right hallux distal tuft ulceration and right posterior lateral calcaneal ulceration. Patient does report history of recurring ulcerations of these 2 specific sites over the last several years. He is continues doxycycline for his knee. States he has left graft intact at the toe and is changing dressings as needed. He continues to offload heel while sleeping with PRAFO boot. Continues offloading in surgical shoe during ambulation. Denies constitutional symptoms. Denies further complaints. Objective Data Objective Data Vital Signs: Vital Signs Temp Pulse Resp BP O2 Del Method 97.5 F L 90 18 170/92 H Room Air 03/13/24 09:52 03/13/24 09:52 03/13/24 09:52 03/13/24 09:52 03/13/24 09:52 Oxygen Delivery Method Room Air Physical Exam Const alert, oriented x3, no apparent distress and well nourished General Appearance: cooperative Nutritional Appearance: morbidly obese HEENT normocephalic Eyes General Eye: normal appearance of both eyes Neck General: normal visual inspection Lymph Lymphatic: no lymphadenopathy noted and no lymphedema noted Resp normal respiratory effort Cardio regular rate and regular rhythm Extremity normal capillary refill, no joint enlargement and no calf tenderness Extremity Narrative: Vascular: DP and PT pulses weakly palpable. CFT less than 5 seconds to the digits. Normal temperature gradient. Hair growth is absent to digits/foot. Neurologic: Gross sensation intact. Decreased light touch sensation. Absent protective sensation tested with 5.07g [place] Zen monofilament. Lack of p rotective sensation consistent with diabetic peripheral polyneuropathy Dermatologic: There is varicosities noted to the lower extremity with subsequent edema about foot and LIANNA ankle. There is hyperkeratosis of the distal hallux tuft rim with ulceration with healthy granular tissue. There is a posterior lateral heel ulceration with granular wound base and hyperkeratosis at the wound margin. No signs of infection. Musculoskeletal: Muscle strength 5 of 5 age-appropriate. Decreased range of motion of the ankle joint in dorsiflexion with the knee extended without pain or crepitus. Decreased range of motion of the first metatarsophalangeal joint without pain or crepitus. There is hammertoe deformity of digits 1 through 5. Skin no rashes or lesions noted, skin turgor normal and no jaundice Neuro moves all extremities Debridement Note Debridement Note Wound debrided: Right distal hallux Laterality: Right Wound Grade/Stage: Gomez stage I Type of Debridement: Excisional debridement Anesthesia Used: 5% Lidocaine Gel Depth: Down to and including healthy tissue and in the subcutaneous layer Percentage of wound debrided: 100 Instrument Used: #15 blade Tissue Removed: Fibrous, devitalized subcutaneous, biofilm, slough Severity: Fat Layer Exposed Amount of bleeding with debridement: Mild Bleeding Controlled with: Compression and gauze Patient tolerated procedure: Patient tolerated procedure well Post-Debridement Measurements and Additional Note: Post-Debridement Measurements/Treatment - Nurse 1 - General Ulcer Assessment Start: 03/13/24 09:52 Freq: Status: Active Protocol: NELL Activity Type Activity Date Activity User E-sign Co-sign Detail Recorded Client Recorded Date Recorded By Document 03/13/24 09:52 JOSE [facility] 03/13/24 10:05 03/13/24 09:52 - Today's Visit Information Type of service Follow-up Visit (Physician/CARAMEL CANDY MAKER ) Arrival Mode Ambulatory, Walker Accompanied by Patient Identification Verified (Name & Yes ) Vital Signs Temperature (97.8 F-99.1 F) 97.5 F L Temperature Source Temporal Pulse Rate (60-100) 90 Pulse Location Monitor Respiratory Rate (12-18) 18 Respiratory rate source Observation Oxygen Delivery Method Room Air Blood Pressure (90/60-120/80) 170/92 H Blood Pressure Mean (mm Hg) 118 Source Monitor Position Sitting Blood Pressure Location Left Forearm History Since Last Visit- (Skip if this is Patient's initial visit) Have you changed medications since your No last visit? Any new allergies or adverse reactions No Had a fall/change in ADL's that may No increase risk of falls Signs or symptoms of abuse and/or No neglect since last visit Have you been in the hospital since your No last visit? Has dressing in place as prescribed Yes Has compression in place as prescribed Yes Has offloadiing in place as prescribed Yes Experienced any changes in pain level or No management Left Footwear Regular Shoe Right Footwear Surgical Shoe with pressure relief insole Pain Scale: 0-10 Numeric Is Patient Pain Free? Yes [facility] Nurse 1 - General Ulcer Measurement Start: 03/13/24 09:52 Freq: Status: Active Protocol: Activity Type Activity Date Activity User E-sign Co-sign Detail Recorded Client Recorded Date Recorded By Document 03/13/24 09:52 JOSE [facility] 03/13/24 10:05 03/13/24 09:52 Wound Center Nurse 1 #4 RT GREAT TOE -Current Size (cm) - Length 0.2 -Current Size (cm) - Width 0.3 -Current Size (cm) - Depth 0.1 -Total Square Cm 0.06 -Date of Last Picture (Recall this 03/13/24 field) -Exudate Amt Small -Exudate Type Serosanguineous -Wound Margin Distinct, Outline Attached -Granulation Amt Large (67-100%) -Granulation Quality Red -Necrosis Amt Small (1-33%) -Necrotic Tissue Type Adherent Slough -Texture (Lianna-wound Skin Appearance) Assessed -Moisture (Lianna-wound Skin Appearance) Assessed -Color (Lianna-wound Skin Appearance) Assessed -Temperature (Lianna-wound Skin No Abnormality Appearance) (Pt Warm) -Tenderness on Palpation (Lianna-wound No Skin Appearance) -Ulcer Cleansing Soap and Water -Foul Odor after Cleansing No -Anesthetic Used 5% Lidocaine Gel #3 RT HEEL -Current Size (cm) - Length 0.2 -Current Size (cm) - Width 1.1 -Current Size (cm) - Depth 0.1 -Total Square Cm 0.22 -Date of Last Picture (Recall this 03/13/24 field) -Exudate Amt Small -Exudate Type Serosanguineous -Wound Margin Distinct, Outline Attached -Granulation Amt Medium (34-66%) -Granulation Quality Red -Necrosis Amt Medium (34-66%) -Necrotic Tissue Type Adherent Slough -Texture (Lianna-wound Skin Appearance) Assessed -Moisture (Lianna-wound Skin Appearance) Assessed, Maceration -Color (Lianna-wound Skin Appearance) Assessed -Temperature (Lianna-wound Skin No Abnormality Appearance) (Pt Warm) -Tenderness on Palpation (Lianna-wound No Skin Appearance) -Ulcer Cleansing Soap and Water -Foul Odor after Cleansing No -Anesthetic Used 5% Lidocaine Gel Right Calf (cm) 47.2 WC - Nurse 2 - General Ulcer CM Notes Start: 03/13/24 09:52 Freq: Status: Active Protocol: Activity Type Activity Date Activity User E-sign Co-sign Detail Recorded Client Recorded Date Recorded By Document 03/13/24 10:09 [facility] [id number] 03/13/24 10:35 [facility] 03/13/24 10:09 Wound Center Nurse 2 #4 RT GREAT TOE -Time 10:11 -Correct Patient Yes -Correct Side, Site, Position Yes -Correct Procedure Yes -Procedure Performed Yes -Type of Procedure Debridement -Clinical Debridement Subcutaneous -Tissue Removed Subcutaneous -Post Debridement (cm) - Length 0.6 -Post Debridement (cm) - Width 0.5 -Post Debridement (cm) - Depth 0.1 -Total Square (Post) (cm) 0.30 -Area of Debridement (cm) - Length 0.6 -Area of Debridement (cm) - Width 0.5 -Total Square (Area) (cm) 0.30 -Tunneling No -Undermining/Tunneling No -Circular Undermining No -Wound/Ulcer Outcome Not Healed -Ulcer Cleansing Rinsed/ Irrigated with Saline -Foul Odor after Cleansing No -Bioengineered Tissue Yes -Type of Bioengineered Tissue Epifix 18mm Disc -Expiration Date 09/13/28 -Product Lot Number [id number] -Percent Used 100 -Lot number of Saline Used [id number] -Bleeding Controlled with Pressure -Treatment Response Procedure Tolerated Well -Offloading Yes -Type of Offloading Surgical Shoe -Debridement - Subq, 1st 20sq cm No -Apply Skin Sub - 1st 25 sq cm - Feet 1 -Epifix 18mm Disc 3 #3 RT HEEL -Time 10:18 -Correct Patient Yes -Correct Side, Site, Position Yes -Correct Procedure Yes -Procedure Performed Yes -Type of Procedure Debridement -Clinical Debridement Subcutaneous -Tissue Removed Subcutaneous -Post Debridement (cm) - Length 1.8 -Post Debridement (cm) - Width 0.5 -Post Debridement (cm) - Depth 0.1 -Total Square (Post) (cm) 0.90 -Area of Debridement (cm) - Length 1.8 -Area of Debridement (cm) - Width 0.5 -Total Square (Area) (cm) 0.90 -Tunneling No -Undermining/Tunneling No -Circular Undermining No -Wound/Ulcer Outcome Not Healed -Ulcer Cleansing Rinsed/ Irrigated with Saline -Foul Odor after Cleansing No -Bioengineered Tissue No -Bleeding Controlled with Pressure -Treatment Response Procedure Tolerated Well -Type of Offloading Total Contact Cast (TCC) - Right ($) -Debridement - Subq, 1st 20sq cm Yes Pain Scale: 0-10 Numeric Is Patient Pain Free? Yes WC - Nurse 3 - General Ulcer D/C NN Start: 03/13/24 09:52 Freq: Status: Active Protocol: Activity Type Activity Date Activity User E-sign Co-sign Detail Recorded Client Recorded Date Recorded By Document 03/13/24 11:04 RB [id number] 03/13/24 11:05 RB 03/13/24 11:04 Wound Care Center Nurse 3 #4 RT GREAT TOE -Other Dressing padded with piece ABD pad -Primary Dressing Covered/Secured with Dry Gauze,Dry Gauze & Roll Gauze,Secured with Tape #3 RT HEEL -Other Dressing foam pad -Wound Comment(s) primary layer of TCC cast applied Pain Scale: 0-10 Numeric Is Patient Pain Free? Yes Teaching: Wound Center Offload: Mattress, Cushion, Reposition -Person Taught Patient -Teaching Method Discussion, Demonstration -Response to teaching Verbalize understanding WC - Visit Discharge Discharge Condition Stable Ambulatory Status Ambulatory Transportation Private Auto Medication Reconcilliation completed & No provided to patient/care provider Clinical Summary of Care Provided Yes Additional Wound Wound debrided: Right lateral heel Laterality: Right Wound Grade/Stage: Gomez stage I Type of Debridement: Excisional debridement Anesthesia Used: 5% Lidocaine Gel Depth: Down to and including healthy tissue and in the subcutaneous layer Percentage of wound debrided: 100 Instrument Used: #15 blade Tissue Removed: Fibrous, devitalized subcutaneous, biofilm, slough Severity: Fat Layer Exposed Amount of bleeding with debridement: Mild Bleeding Controlled with: Compression and gauze Patient tolerated procedure: Patient tolerated procedure well Assessment/Plan Assessment/Plan (1) Non-pressure chronic ulcer of other part of right foot with fat layer exposed: CODE(S): L97.512 - Non-pressure chronic ulcer of other part of right foot with fat layer exposed (2) Chronic ulcer of right heel with fat layer exposed: CODE(S): L97.412 - Non-pressure chronic ulcer of right heel and midfoot with fat layer exposed (3) Acute painful diabetic polyneuropathy: CODE(S): E11.42 - Type 2 diabetes mellitus with diabetic polyneuropathy (4) Type 2 diabetes mellitus with foot ulcer: CODE(S): E11.621 - Type 2 diabetes mellitus with foot ulcer; L97.509 - Non-pressure chronic ulcer of other part of unspecified foot with unspecified severity QUALIFIERS: Diabetes mellitus intermediate insulin use: with intermediate use Qualified Code(s): E11.621 - Type 2 diabetes mellitus with foot ulcer; L97.509 - Non-pressure chronic ulcer of other part of unspecified foot with unspecified severity; Z79.4 - FPC (current) use of insulin (5) Hypertension: CODE(S): I10 - Essential (primary) hypertension QUALIFIERS: Hypertension type: primary hypertension Qualified Code(s): I10 - Essential (primary) hypertension (6) Lymphedema: CODE(S): I89.0 - Lymphedema, not elsewhere classified (7) Super obesity: CODE(S): E66.9 - Obesity, unspecified (8) Lower extremity edema: CODE(S): R60.0 - Localized edema PLAN: Plan Patient seen and evaluated Pre-debridement: Hallux 0.5cm x 0.4cm x 0.1cm ; Right Heel 1.7cm x 0.4cm x 0.2cm Ulcerations debrided as noted in the clinical panel above. Right hallux distal tuft ulceration measures 0.6 cm x 0.5 cm x 0.1 cm and right posterior lateral heel ulceration measures 1.8 cm x 0.5 cm x 0.2 cm. No signs of infection. Joelle to the Right Heel. He is to change dressing daily. EpiFix graft #5 was applied to the right Hallux and dressed with Adaptic touch and anchored with Steri-Strips and dressed with dry sterile dressing. Ulceration at hallux demonstrate continued reduction in size versus previous visit. Right heel demonstrates reduction in size. Will move forward with TCC application. He was approved for EpiFix graft for Right heel and has finished all 10 applications. He was approved for EpiFix for Right Hallux, and will continue application. I recommend total contact cast application again to the right lower extremity 03/13/24. He is amendable to have a right lower extremity total contact cast applied and verbal consent was obtained. This was applied according to standard protocol in a rectus position that was also well padded according to standard protocol. He tolerated this well. He was advised to keep this clean, dry, and intact until follow-up next week. Discussed continued wearing of Tubigrip compression stockings until ulcerations have healed at which time he will change to bilateral compression stocking. Discussed continuing to elevate feet at all times of rest for edema control. Discussed adequate protein intake to continue to aid in wound healing. Florentin supplementation was recommended. Discussed proper diabetic diet in addition to the stated above to ensure adequate wound healing. Patient states that his sugars have been up but not above 200. does state he does eat things that he should not though. Recent visit with PCP demonstrates increase in weight. He has continued taking the instructed supplements for his neuropathy consisting of of complex B vitamin daily, magnesium 250 mg daily, alpha lipoic acid 300 mg daily, and 500 mg glutamine supplement. Discussed continuing to take it and allow time for the nerves to continue repair. Discussed signs and symptoms of infection. Discussed with the patient if he notices redness about the wound margins that continues to spread or moves up the leg, any purulent drainage from the wound site, increasing foul odor from the wound or if he experiences fever greater than 101 degree accompanied by nausea, vomiting, chills, that these are signs of a progressing infection and he should report to the ED for IV antibiotics and further evaluation. He and his voiced understanding of this today. The following work up and care recommendations were made: Dressing: Joelle to wound base right heel. EpiFix graft, wound veil, Steri- Strips, nurse hat to right hallux. TCC to Right Leg Wash: Do not get wet Tissue growth optimization: Joelle right Heel; EpiFix Right Hallux. Offload: Elevating lower extremities at rest and TCC right leg Vascular: DP and PT pulses are weakly palpable with adequate capillary fill time. Do not feel that vascular status is affecting wound healing. Edema: Continue elevating lower extremities at all times of rest. Continue wearing Tubigrip compression stocking. Discussed eventual change to a standard prescription compression stocking once wounds have healed. Infection: No signs of infection. Wound cultures were taken given patient's prior history of recurrent bacterial infection at the sites. Pain: May take [id number] Tylenol for discomfort Host factors: DM type II with peripheral polyneuropathy, HTN, morbid obesity, lymphedema I answered all the patient's questions. To return to the wound healing center in 1 week or call sooner if the patient has any questions or concerns.
--- NOTE | 2024-03-14 09:51 | WC ---
PHOTO 03/13/24 RIGHT GREAT TOE
--- NOTE | 2024-03-14 09:51 | WC ---
PHOTO 03/13/24 RIGHT HEEL
--- NOTE | 2024-03-17 14:19 | WC ---
Patient called and said the TCC cast is fine and staying in place. Rescheduled to see Dr Dasilva on .
[2024-03-20 10:22] VITALS: BP 164/91; PULSE 84; RESP 16; TEMP 36.1
--- NOTE | 2024-03-20 13:25 | PCM.WC.PN ---
History of Present Illness Date of Service: 03/20/24 Chief Complaint: Right heel ulcer and right hallux ulcer History of Wound: 68 year old male presents to the wound center for evaluation of his right heal ulcer. It started as a a pressure ulcer in February 2022 when he he was in TCU and it healed. It then became a blister right before his Left TKR surgery. He had his left knee replaced 07/14/22 at [facility]. 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 He also has a history of diabetes type II with peripheral polyneuropathy, HTN, lymphedema, hypercholesterolemia and PE that he is on Xerelto. Wound culture obtained on 08/30/22 which are positive for VRE, Kocuria kristinae and Corynebacterium striatum. He will completed the Linezolid. Wound culture obtained 06/20/23 which was positive for Staphylococcus pseudintermediu, Pseudomonas aeruginosa, Corynebacterium minutissiumum, and Anaerobic cocci. He was started on Levaquin and Flagyl. Foot xray 09/27/22 - Osteopenia with diffuse osteoarthritic changes. Diffuse soft tissue swelling with ossification of the distal Achilles tendon. No acute abnormality or evidence of erosive changes. Did undergo updated radiograph of the right foot 11/08/2023 with no noted changes from previous x-ray. This is a recurring ulceration to both distal medial tuft of the right hallux and posterior lateral heel. He states both sites had scabbed up and he was previously discharged however scabs have later broken down with re-ulceration. Wound care -currently applying Joelle daily and is offloading and surgical shoe to the right foot. He denies any fever, chills, nausea and vomiting. Denies further complaints. Subjective Subjective This is a 68-year-old male who presents to the wound care center for follow-up of right hallux distal tuft ulceration and right posterior lateral calcaneal ulceration. Patient does report history of recurring ulcerations of these 2 specific sites over the last several years. He is continues doxycycline for his knee. States he has done well with a total contact cast over the last week. Denies constitutional symptoms. Denies further complaints. Objective Data Objective Data Vital Signs: Vital Signs Temp Pulse Resp BP O2 Del Method 96.9 F L 84 16 164/91 H Room Air 03/20/24 10:22 03/20/24 10:22 03/20/24 10:22 03/20/24 10:22 03/13/24 09:52 Oxygen Delivery Method Room Air Physical Exam Const alert, oriented x3, no apparent distress and well nourished General Appearance: cooperative Nutritional Appearance: morbidly obese HEENT normocephalic Eyes General Eye: normal appearance of both eyes Neck General: normal visual inspection Lymph Lymphatic: no lymphadenopathy noted and no lymphedema noted Resp normal respiratory effort Cardio regular rate and regular rhythm Extremity normal capillary refill, no joint enlargement and no calf tenderness Extremity Narrative: Vascular: DP and PT pulses weakly palpable. CFT less than 5 seconds to the digits. Normal temperature gradient. Hair growth is absent to digits/foot. Neurologic: Gross sensation intact. Decreased light touch sensation. Absent protective sensation tested with 5.07g Buckley Zen monofilament. Lack of protective sensation consistent with diabetic peripheral polyneuropathy Dermatologic: There is varicosities noted to the lower extremity with subsequent edema about foot and LIANNA ankle. There is hyperkeratosis of the distal hallux tuft rim with ulceration with healthy granular tissue. There is a posterior lateral heel ulceration with granular wound base and hyperkeratosis at the wound margin. No signs of infection. Musculoskeletal: Muscle strength 5 of 5 age-appropriate. Decreased range of motion of the ankle joint in dorsiflexion with the knee extended without pain or crepitus. Decreased range of motion of the first metatarsophalangeal joint without pain or crepitus. There is hammertoe deformity of digits 1 through 5. Skin no rashes or lesions noted, skin turgor normal and no jaundice Neuro moves all extremities Debridement Note Debridement Note Wound debrided: Right hallux distal tuft Laterality: Right Wound Grade/Stage: Gomez stage I Type of Debridement: Excisional debridement Anesthesia Used: 5% Lidocaine Gel Depth: Down to and including healthy tissue and in the subcutaneous layer Percentage of wound debrided: 100 Instrument Used: #15 blade Tissue Removed: Fibrous, devitalized subcutaneous, biofilm, slough Severity: Fat Layer Exposed Amount of bleeding with debridement: Mild Bleeding Controlled with: Compression and gauze Patient tolerated procedure: Patient tolerated procedure well Post-Debridement Measurements and Additional Note: Post-Debridement Measurements/Treatment WC - Nurse 1 - General Ulcer Assessment Start: 03/13/24 09:52 Freq: Status: Active Protocol: SCOTT Activity Type Activity Date Activity User E-sign Co-sign Detail Recorded Client Recorded Date Recorded By Document 03/13/24 09:52 [facility] 03/13/24 10:05 Document 03/20/24 10:22 03/20/24 10:32 03/13/24 03/20/24 09:52 10:22 - Today's Visit Information Type of service Follow-up Visit Follow-up Visit (Physician/RECRUIT INSTRUCTOR (Physician/RECRUIT INSTRUCTOR ) ) Arrival Mode Ambulatory, Ambulatory, Walker Walker Accompanied by Patient Identification Verified (Name & Yes Yes ) Safety Precautions Fall Prevention Vital Signs Temperature (97.8 F-99.1 F) 97.5 F L 96.9 F L Temperature Source Temporal Temporal Pulse Rate (60-100) 90 84 Pulse Location Monitor Monitor Respiratory Rate (12-18) 18 16 Respiratory rate source Observation Observation Oxygen Delivery Method Room Air Blood Pressure (90/60-120/80) 170/92 H 164/91 H Blood Pressure Mean (mm Hg) 118 115 Source Monitor Monitor Position Sitting Sitting Blood Pressure Location Left Forearm Left Forearm History Since Last Visit- (Skip if this is Patient's initial visit) Have you changed medications since your No No last visit? Any new allergies or adverse reactions No No Had a fall/change in ADL's that may No No increase risk of falls Signs or symptoms of abuse and/or No No neglect since last visit Have you been in the hospital since your No No last visit? Has dressing in place as prescribed Yes Yes Has compression in place as prescribed Yes N/A Has offloadiing in place as prescribed Yes Yes Experienced any changes in pain level or No No management Left Footwear Regular Shoe Right Footwear Surgical Shoe Total Contact with pressure Cast relief insole Pain Scale: 0-10 Numeric Is Patient Pain Free? Yes Yes - Nurse 1 - General Ulcer Measurement Start: 03/13/24 09:52 Freq: Status: Active Protocol: Activity Type Activity Date Activity User E-sign Co-sign Detail Recorded Client Recorded Date Recorded By Document 03/13/24 09:52 [facility] 03/13/24 10:05 Document 03/20/24 10:22 03/20/24 10:32 CP 03/13/24 03/20/24 09:52 10:22 Wound Center Nurse 1 #4 RT GREAT TOE -Current Size (cm) - Length 0.2 0.1 -Current Size (cm) - Width 0.3 0.1 -Current Size (cm) - Depth 0.1 0.1 -Total Square Cm 0.06 0.01 -Date of Last Picture (Recall this 03/13/24 03/20/24 field) -Photo Taken Yes -Epithelialization Large 67-100% -Exudate Amt Small Small -Exudate Type Serosanguineous Serous -Wound Margin Distinct, Outline Attached -Granulation Amt Large (67-100%) -Granulation Quality Red -Necrosis Amt Small (1-33%) -Necrotic Tissue Type Adherent Slough -Structure Exposed N/A -Texture (Lianna-wound Skin Appearance) Assessed No Abnormality -Moisture (Lianna-wound Skin Appearance) Assessed No Abnormality -Color (Lianna-wound Skin Appearance) Assessed No Abnormality -Temperature (Lianna-wound Skin No Abnormality No Abnormality Appearance) (Pt Warm) (Pt Warm) -Tenderness on Palpation (Lianna-wound No No Skin Appearance) -Ulcer Cleansing Soap and Water Soap and Water -Foul Odor after Cleansing No No -Anesthetic Used 5% Lidocaine Gel #3 RT HEEL -Current Size (cm) - Length 0.2 0.3 -Current Size (cm) - Width 1.1 0.3 -Current Size (cm) - Depth 0.1 0.1 -Total Square Cm 0.22 0.09 -Date of Last Picture (Recall this 03/13/24 field) -Epithelialization Large 67-100% -Exudate Amt Small -Exudate Type Serosanguineous Serosanguineous -Wound Margin Distinct, Flat & Intact Outline Attached -Granulation Amt Medium (34-66%) Large (67-100%) -Granulation Quality Red [place] -Necrosis Amt Medium (34-66%) Small (1-33%) -Necrotic Tissue Type Adherent Slough Adherent Slough -Structure Exposed N/A -Texture (Lianna-wound Skin Appearance) Assessed No Abnormality -Moisture (Lianna-wound Skin Appearance) Assessed, No Abnormality Maceration -Color (Lianna-wound Skin Appearance) Assessed No Abnormality -Temperature (Lianna-wound Skin No Abnormality No Abnormality Appearance) (Pt Warm) (Pt Warm) -Tenderness on Palpation (Lianna-wound No No Skin Appearance) -Ulcer Cleansing Soap and Water Soap and Water -Foul Odor after Cleansing No -Anesthetic Used 5% Lidocaine 5% Lidocaine Gel Gel Right Calf (cm) 47.2 WC - Nurse 2 - General Ulcer CM Notes Start: 03/13/24 09:52 Freq: Status: Active Protocol: Activity Type Activity Date Activity User E-sign Co-sign Detail Recorded Client Recorded Date Recorded By Document 03/13/24 10:09 BM [id number] 03/13/24 10:35 BM Document 03/20/24 10:58 JF 000 03/20/24 11:08 JF 03/13/24 03/20/24 10:09 10:58 Wound Center Nurse 2 #4 RT GREAT TOE -Time 10:11 11:00 -Correct Patient Yes Yes -Correct Side, Site, Position Yes Yes -Correct Procedure Yes Yes -Procedure Performed Yes Yes -Type of Procedure Debridement Debridement -Clinical Debridement Subcutaneous Subcutaneous -Tissue Removed Subcutaneous Subcutaneous -Post Debridement (cm) - Length 0.6 0.1 -Post Debridement (cm) - Width 0.5 0.1 -Post Debridement (cm) - Depth 0.1 0.1 -Total Square (Post) (cm) 0.30 0.01 -Area of Debridement (cm) - Length 0.6 0.1 -Area of Debridement (cm) - Width 0.5 0.1 -Total Square (Area) (cm) 0.30 0.01 -Tunneling No No -Undermining/Tunneling No No -Circular Undermining No No -Wound/Ulcer Outcome Not Healed Not Healed -Ulcer Cleansing Rinsed/ Rinsed/ Irrigated with Irrigated with Saline Saline -Foul Odor after Cleansing No No -Bioengineered Tissue Yes Yes -Type of Bioengineered Tissue Epifix 18mm Epifix 18mm Disc Disc -Expiration Date 09/13/28 09/13/28 -Product Lot Number [id number] -Percent Used 100 100 -Lot number of Saline Used [id number] -Bleeding Controlled with Pressure Pressure -Treatment Response Procedure Procedure Tolerated Well Tolerated Well -Offloading Yes Yes -Type of Offloading Surgical Shoe Total Contact Cast (TCC) - Right ($) -Debridement - Subq, 1st 20sq cm No No -Apply Skin Sub - 1st 25 sq cm - Feet 1 1 -Epifix 18mm Disc 3 3 #3 RT HEEL -Time 10:18 11:07 -Correct Patient Yes Yes -Correct Side, Site, Position Yes Yes -Correct Procedure Yes Yes -Procedure Performed Yes Yes -Type of Procedure Debridement Debridement -Clinical Debridement Subcutaneous Subcutaneous -Tissue Removed Subcutaneous Subcutaneous -Post Debridement (cm) - Length 1.8 0.5 -Post Debridement (cm) - Width 0.5 0.5 -Post Debridement (cm) - Depth 0.1 0.1 -Total Square (Post) (cm) 0.90 0.25 -Area of Debridement (cm) - Length 1.8 0.5 -Area of Debridement (cm) - Width 0.5 0.5 -Total Square (Area) (cm) 0.90 0.25 -Tunneling No No -Undermining/Tunneling No No -Circular Undermining No No -Wound/Ulcer Outcome Not Healed Not Healed -Ulcer Cleansing Rinsed/ Rinsed/ Irrigated with Irrigated with Saline Saline -Foul Odor after Cleansing No No -Bioengineered Tissue No No -Bleeding Controlled with Pressure Pressure -Treatment Response Procedure Procedure Tolerated Well Tolerated Well -Offloading No -Type of Offloading Total Contact Cast (TCC) - Right ($) -Debridement - Subq, 1st 20sq cm Yes Yes Pain Scale: 0-10 Numeric Is Patient Pain Free? Yes Yes - Nurse 3 - General Ulcer D/C NN Start: 03/13/24 09:52 Freq: Status: Active Protocol: Activity Type Activity Date Activity User E-sign Co-sign Detail Recorded Client Recorded Date Recorded By Document 03/13/24 11:04 [id number] 03/13/24 11:05 RASHAAD 03/13/24 11:04 Wound Care Center Nurse 3 #4 RT GREAT TOE -Other Dressing padded with piece ABD pad -Primary Dressing Covered/Secured with Dry Gauze,Dry Gauze & Roll Gauze,Secured with Tape #3 RT HEEL -Other Dressing foam pad -Wound Comment(s) primary layer of TCC cast applied Pain Scale: 0-10 Numeric Is Patient Pain Free? Yes Teaching: Wound Center Offload: Mattress, Cushion, Reposition -Person Taught Patient -Teaching Method Discussion, Demonstration -Response to teaching Verbalize Understanding WC - Visit Discharge Discharge Condition Stable Ambulatory Status Ambulatory Transportation Private Auto Medication Reconcilliation completed & No provided to patient/care provider Clinical Summary of Care Provided Yes Additional Wound Wound debrided: Right lateral heel Laterality: Right Wound Grade/Stage: Gomez stage I Type of Debridement: Excisional debridement Anesthesia Used: 5% Lidocaine Gel Depth: Down to and including healthy tissue and in the subcutaneous layer Percentage of wound debrided: 100 Instrument Used: #15 blade Tissue Removed: Fibrous, devitalized subcutaneous, biofilm, slough Severity: Fat Layer Exposed Amount of bleeding with debridement: Mild Bleeding Controlled with: Compression and gauze Patient tolerated procedure: Patient tolerated procedure well Assessment/Plan Assessment/Plan (1) Non-pressure chronic ulcer of other part of right foot with fat layer exposed: CODE(S): L97.512 - Non-pressure chronic ulcer of other part of right foot with fat layer exposed (2) Chronic ulcer of right heel with fat layer exposed: CODE(S): L97.412 - Non-pressure chronic ulcer of right heel and midfoot with fat layer exposed (3) Acute painful diabetic polyneuropathy: CODE(S): E11.42 - Type 2 diabetes mellitus with diabetic polyneuropathy (4) Type 2 diabetes mellitus with foot ulcer: CODE(S): E11.621 - Type 2 diabetes mellitus with foot ulcer; L97.509 - Non-pressure chronic ulcer of other part of unspecified foot with unspecified severity QUALIFIERS: Diabetes mellitus half-way insulin use: with manager terminal use Qualified Code(s): E11.621 - Type 2 diabetes mellitus with foot ulcer; L97.509 - Non-pressure chronic ulcer of other part of unspecified foot with unspecified severity; Z79.4 - residential (current) use of insulin (5) Hypertension: CODE(S): I10 - Essential (primary) hypertension QUALIFIERS: Hypertension type: primary hypertension Qualified Code(s): I10 - Essential (primary) hypertension (6) Lymphedema: CODE(S): I89.0 - Lymphedema, not elsewhere classified (7) Super obesity: CODE(S): E66.9 - Obesity, unspecified (8) Lower extremity edema: CODE(S): R60.0 - Localized edema PLAN: Plan Patient seen and evaluated Pre-debridement: Hallux 0.1cm x 0.1 cm x 0.1cm ; Right Heel 0.4cm x 0.4cm x 0.2cm Ulcerations debrided as noted in the clinical panel above. Right hallux distal tuft ulceration measures 0.2 cm x 0.2 cm x 0.1 cm and right posterior lateral heel ulceration measures 0.5 cm x 0.5 cm x 0.2 cm. No signs of infection. Joelle to the Right Heel. He is to change dressing daily. EpiFix graft #6 was applied to the right Hallux and dressed with Adaptic touch and anchored with Steri-Strips and dressed with dry sterile dressing. Ulceration at hallux demonstrate continued reduction in size versus previous visit. Right heel demonstrates continued reduction in size. Will continue with TCC application. He was approved for EpiFix graft for Right heel and has finished all 10 applications. He was approved for EpiFix for Right Hallux, and will continue application. I recommend total contact cast application again to the right lower extremity 03/20/24. He is amendable to have a right lower extremity total contact cast applied and verbal consent was obtained. This was applied according to standard protocol in a rectus position that was also well padded according to standard protocol. He tolerated this well. He was advised to keep this clean, dry, and intact until follow-up next week. Discussed continued wearing of Tubigrip compression stockings until ulcerations have healed at which time he will change to bilateral compression stocking. Discussed continuing to elevate feet at all times of rest for edema control. Discussed adequate protein intake to continue to aid in wound healing. Florentin supplementation was recommended. Discussed proper diabetic diet in addition to the stated above to ensure adequate wound healing. Patient states that his sugars have been up but not above 200. does state he does eat things that he should not though. Recent visit with PCP demonstrates increase in weight. He has continued taking the instructed supplements for his neuropathy consisting of of complex B vitamin daily, magnesium 250 mg daily, alpha lipoic acid 300 mg daily, and 500 mg glutamine supplement. Discussed continuing to take it and allow time for the nerves to continue repair. Discussed signs and symptoms of infection. Discussed with the patient if he notices redness about the wound margins that continues to spread or moves up the leg, any purulent drainage from the wound site, increasing foul odor from the wound or if he experiences fever greater than 101 degree accompanied by nausea, vomiting, chills, that these are signs of a progressing infection and he should report to the ED for IV antibiotics and further evaluation. He and his voiced understanding of this today. The following work up and care recommendations were made: Dressing: Joelle to wound base right heel. EpiFix graft, wound veil, Steri-Strips, nurse hat to right hallux. TCC to Right Leg Wash: Do not get wet Tissue growth optimization: Joelle right Heel; EpiFix Right Hallux. Offload: Elevating lower extremities at rest and TCC right leg Vascular: DP and PT pulses are weakly palpable with adequate capillary fill time. Do not feel that vascular status is affecting wound healing. Edema: Continue elevating lower extremities at all times of rest. Continue wearing Tubigrip compression stocking. Discussed eventual change to a standard prescription compression stocking once wounds have healed. Infection: No signs of infection. Wound cultures were taken given patient's prior history of recurrent bacterial infection at the sites. Pain: May take [id number] Tylenol for discomfort Host factors: DM type II with peripheral polyneuropathy, HTN, morbid obesity, lymphedema I answered all the patient's questions. To return to the wound healing center in 1 week or call sooner if the patient has any questions or concerns.
[2024-03-26 15:30] VITALS: BP 160/97; PULSE 89; RESP 16
--- NOTE | 2024-03-26 15:58 | PN.PCM_ITS ---
History of Present Illness Date of Service: 03/26/24 Chief Complaint: Right heel ulcer and right hallux ulcer History of Wound: 68 year old male presents to the wound center for evaluation of his right heal ulcer. It started as a a pressure ulcer in February 2022 when he he was in TCU and it healed. It then became a blister right before his Left TKR surgery. He had his left knee replaced 07/14/22 at [facility]. 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 He also has a history of diabetes type II with peripheral polyneuropathy, HTN, lymphedema, hypercholesterolemia and PE that he is on Xerelto. Wound culture obtained on 08/30/22 which are positive for VRE, Kocuria kristinae and Corynebacterium striatum. He will completed the Linezolid. Wound culture obtained 06/20/23 which was positive for Staphylococcus pseudintermediu, Pseudomonas aeruginosa, Corynebacterium minutissiumum, and Anaerobic cocci. He was started on Levaquin and Flagyl. Foot xray 09/27/22 - Osteopenia with diffuse osteoarthritic changes. Diffuse soft tissue swelling with ossification of the distal Achilles tendon. No acute abnormality or evidence of erosive changes. Did undergo updated radiograph of the right foot 11/08/2023 with no noted changes from previous x-ray. This is a recurring ulceration to both distal medial tuft of the right hallux and posterior lateral heel. He states both sites had scabbed up and he was previously discharged however scabs have later broken down with re-ulceration. Wound care -currently applying Joelle daily and is offloading and surgical shoe to the right foot. He denies any fever, chills, nausea and vomiting. Denies further complaints. Subjective Subjective This is a 68-year-old male who presents to the wound care center for follow-up of right hallux distal tuft ulceration and right posterior lateral calcaneal ulceration. Patient does report history of recurring ulcerations of these 2 specific sites over the last several years. He is continues doxycycline for his knee. States he has done well with a total contact cast over the last week. States that he feels like the wounds have closed now. Denies constitutional symptoms. Denies further complaints. Objective Data Objective Data Vital Signs: Vital Signs Temp Pulse Resp BP O2 Del Method 96.9 F L 89 16 160/97 H Room Air 03/20/24 10:22 03/26/24 15:30 03/26/24 15:30 03/26/24 15:30 03/26/24 15:30 Oxygen Delivery Method Room Air Physical Exam Const alert, oriented x3, no apparent distress and well nourished General Appearance: cooperative Nutritional Appearance: morbidly obese HEENT normocephalic Eyes General Eye: normal appearance of both eyes Neck General: normal visual inspection Lymph Lymphatic: no lymphadenopathy noted and no lymphedema noted Resp normal respiratory effort Cardio regular rate and regular rhythm Extremity normal capillary refill, no joint enlargement and no calf tenderness Extremity Narrative: Vascular: DP and PT pulses weakly palpable. CFT less than 5 seconds to the digits. Normal temperature gradient. Hair growth is absent to digits/foot. Neurologic: Gross sensation intact. Decreased light touch sensation. Absent protective sensation tested with 5.07g Kincheloe Zen monofilament. Lack of protective sensation consistent with diabetic peripheral polyneuropathy Dermatologic: There is varicosities noted to the lower extremity with subsequent edema about foot and LIANNA ankle. There is hyperkeratosis of the distal hallux tuft rim with ulceration with healthy granular tissue. There is a posterior lateral heel ulceration with granular wound base and hyperkeratosis at the wound margin. No signs of infection. Musculoskeletal: Muscle strength 5 of 5 age-appropriate. Decreased range of motion of the ankle joint in dorsiflexion with the knee extended without pain or crepitus. Decreased range of motion of the first metatarsophalangeal joint without pain or crepitus. There is hammertoe deformity of digits 1 through 5. Skin no rashes or lesions noted, skin turgor normal and no jaundice Neuro moves all extremities Debridement Note Debridement Note No debridement was completed: No debridement was completed today Post-Debridement Measurements and Additional Note: Post-Debridement Measurements/Treatment WC - Nurse 1 - General Ulcer Assessment Start: 03/13/24 09:52 Freq: Status: Active Protocol: LAM.NICOLEEXT Activity Type Activity Date Activity User E-sign Co-sign Detail Recorded Client Recorded Date Recorded By Document 03/13/24 09:52 KW f 03/13/24 10:05 KW Document 03/20/24 10:22 03/20/24 10:32 CP Document 03/26/24 15:30 BMF [email or web address] 03/26/24 15:42 BMF 03/13/24 03/20/24 03/26/24 09:52 10:22 15:30 - Today's Visit Information Type of service Follow-up Visit Follow-up Visit Follow-up Visit (Physician/TIRE FABRICATOR (Physician/TIRE FABRICATOR (Physician/TIRE FABRICATOR ) ) ) Arrival Mode Ambulatory, Ambulatory, Ambulatory, Walker Walker Walker Transfer Assistance None Accompanied by Patient Identification Verified (Name & Yes Yes Yes ) Patient Requires Transmission-Based No Precautions Safety Precautions Fall Prevention Vital Signs Temperature (97.8 F-99.1 F) 97.5 F L 96.9 F L Temperature Source Temporal Temporal Pulse Rate (60-100) 90 84 89 Pulse Location Monitor Monitor Monitor Respiratory Rate (12-18) 18 16 16 Respiratory rate source Observation Observation Observation Oxygen Delivery Method Room Air Room Air Blood Pressure (90/60-120/80) 170/92 H 164/91 H 160/97 H Blood Pressure Mean (mm Hg) 118 115 118 Source Monitor Monitor Monitor Position Sitting Sitting Sitting Blood Pressure Location Left Forearm Left Forearm Right Forearm History Since Last Visit- (Skip if this is Patient's initial visit) Have you changed medications since your No No No last visit? Any new allergies or adverse reactions No No No Had a fall/change in ADL's that may No No No increase risk of falls Signs or symptoms of abuse and/or No No No neglect since last visit Have you been in the hospital since your No No No last visit? Has dressing in place as prescribed Yes Yes Yes Has compression in place as prescribed Yes N/A N/A Has offloadiing in place as prescribed Yes Yes Yes Experienced any changes in pain level or No No No management Left Footwear Regular Shoe Diabetic Shoe Right Footwear Surgical Shoe Total Contact Total Contact with pressure Cast Cast relief insole Pain Scale: 0-10 Numeric Is Patient Pain Free? Yes Yes Yes Teaching: Wound Center EPIFIX -Person Taught Patient, Significant Other -Teaching Method Discussion -Response to teaching Verbalize Understanding Eliminating Foot Pressure -Person Taught Patient, Significant Other -Teaching Method Discussion -Response to teaching Verbalize Understanding Offload: Mattress, Cushion, Reposition -Person Taught Patient, Significant Other -Teaching Method Discussion -Response to teaching Verbalize Understanding Foot Care -Person Taught Patient, Significant Other -Teaching Method Discussion *Debridement -Person Taught Patient, Significant Other -Teaching Method Discussion -Response to teaching Verbalize Understanding WC - Nurse 1 - General Ulcer Measurement Start: 03/13/24 09:52 Freq: Status: Active Protocol: Activity Type Activity Date Activity User E-sign Co-sign Detail Recorded Client Recorded Date Recorded By Document 03/13/24 09:52 KW [facility] 03/13/24 10:05 KW Document 03/20/24 10:22 CP 03/20/24 10:32 CP Document 03/26/24 15:30 BMF [email or web address] 03/26/24 15:42 BMF 03/13/24 03/20/24 03/26/24 09:52 10:22 15:30 Wound Center Nurse 1 #4 RT GREAT TOE -Current Size (cm) - Length 0.2 0.1 0.1 -Current Size (cm) - Width 0.3 0.1 0.1 -Current Size (cm) - Depth 0.1 0.1 0.1 -Total Square Cm 0.06 0.01 0.01 -Date of Last Picture (Recall this 03/13/24 03/20/24 field) -Photo Taken Yes -Epithelialization Large 67-100% Large 67-100% -Tunneling No -Undermining/Tunneling No -Circular Undermining No -Exudate Amt Small Small Medium -Exudate Type Serosanguineous Serous Serosanguineous -Wound Margin Distinct, Outline Attached -Granulation Amt Large (67-100%) -Granulation Quality Red -Necrosis Amt Small (1-33%) -Necrotic Tissue Type Adherent Slough -Structure Exposed N/A -Texture (Lianna-wound Skin Appearance) Assessed No Abnormality Assessed -Moisture (Lianna-wound Skin Appearance) Assessed No Abnormality Assessed -Color (Lianna-wound Skin Appearance) Assessed No Abnormality Assessed -Temperature (Lianna-wound Skin No Abnormality No Abnormality No Abnormality Appearance) (Pt Warm) (Pt Warm) (Pt Warm) -Tenderness on Palpation (Lianna-wound No No No Skin Appearance) -Ulcer Cleansing Soap and Water Soap and Water Soap and Water -Foul Odor after Cleansing No No No -Anesthetic Used 5% Lidocaine 5% Lidocaine Gel Gel #3 RT HEEL -Combined with other wound No -Current Size (cm) - Length 0.2 0.3 0.1 -Current Size (cm) - Width 1.1 0.3 0.1 -Current Size (cm) - Depth 0.1 0.1 0.1 -Total Square Cm 0.22 0.09 0.01 -Date of Last Picture (Recall this 03/13/24 field) -Epithelialization Large 67-100% Large 67-100% -Tunneling No -Undermining/Tunneling No -Circular Undermining No -Exudate Amt Small Medium -Exudate Type Serosanguineous Serosanguineous Serosanguineous -Wound Margin Distinct, Flat & Intact Outline Attached -Granulation Amt Medium (34-66%) Large (67-100%) -Granulation Quality Red Erma -Necrosis Amt Medium (34-66%) Small (1-33%) -Necrotic Tissue Type Adherent Slough Adherent Slough -Structure Exposed N/A -Texture (Lianna-wound Skin Appearance) Assessed No Abnormality Assessed -Moisture (Lianna-wound Skin Appearance) Assessed, No Abnormality Assessed Maceration -Color (Lianna-wound Skin Appearance) Assessed No Abnormality Assessed -Temperature (Lianna-wound Skin No Abnormality No Abnormality No Abnormality Appearance) (Pt Warm) (Pt Warm) (Pt Warm) -Tenderness on Palpation (Lianna-wound No No No Skin Appearance) -Ulcer Cleansing Soap and Water Soap and Water Soap and Water -Foul Odor after Cleansing No No -Anesthetic Used 5% Lidocaine 5% Lidocaine 5% Lidocaine Gel Gel Gel Right Calf (cm) 47.2 WC - Nurse 2 - General Ulcer CM Notes Start: 03/13/24 09:52 Freq: Status: Active Protocol: Activity Type Activity Date Activity User E-sign Co-sign Detail Recorded Client Recorded Date Recorded By Document 03/13/24 10:09 BMF [email or web address] 03/13/24 10:35 BMF Document 03/20/24 10:58 JF 000 03/20/24 11:08 JF Document 03/26/24 15:49 BMF 10. 03/26/24 15:50 BMF Edit Result 03/26/24 15:49 BMF (1) 10. 03/26/24 15:52 BMF (1) #4 RT GREAT TOE - Post Debridement (cm) - Length => 0.1 - Post Debridement (cm) - Width => 0.1 - Post Debridement (cm) - Depth => 0.1 - Total Square (Post) (cm) => 0.01 - Area of Debridement (cm) - Length => 0.1 - Area of Debridement (cm) - Width => 0.1 - Total Square (Area) (cm) => 0.01 #3 RT HEEL - Post Debridement (cm) - Length => 0.1 - Post Debridement (cm) - Width => 0.1 - Post Debridement (cm) - Depth => 0.1 - Total Square (Post) (cm) => 0.01 - Area of Debridement (cm) - Length => 0.1 - Area of Debridement (cm) - Width => 0.1 - Total Square (Area) (cm) => 0.01 03/13/24 03/20/24 03/26/24 10:09 10:58 15:49 Wound Center Nurse 2 #4 RT GREAT TOE -Time 10:11 11:00 15:50 -Correct Patient Yes Yes -Correct Side, Site, Position Yes Yes -Correct Procedure Yes Yes -Procedure Performed Yes Yes -Type of Procedure Debridement Debridement -Clinical Debridement Subcutaneous Subcutaneous -Tissue Removed Subcutaneous Subcutaneous -Post Debridement (cm) - Length 0.6 0.1 0.1 -Post Debridement (cm) - Width 0.5 0.1 0.1 -Post Debridement (cm) - Depth 0.1 0.1 0.1 -Total Square (Post) (cm) 0.30 0.01 0.01 -Area of Debridement (cm) - Length 0.6 0.1 0.1 -Area of Debridement (cm) - Width 0.5 0.1 0.1 -Total Square (Area) (cm) 0.30 0.01 0.01 -Tunneling No No -Undermining/Tunneling No No -Circular Undermining No No -Wound/Ulcer Outcome Not Healed Not Healed -Ulcer Cleansing Rinsed/ Rinsed/ Irrigated with Irrigated with Saline Saline -Foul Odor after Cleansing No No -Bioengineered Tissue Yes Yes -Type of Bioengineered Tissue Epifix 18mm Epifix 18mm Disc Disc -Expiration Date 09/13/28 09/13/28 -Product Lot Number [id number] -Percent Used 100 100 -Lot number of Saline Used [id number] -Bleeding Controlled with Pressure Pressure NA -Treatment Response Procedure Procedure Tolerated Well Tolerated Well -Offloading Yes Yes -Type of Offloading Surgical Shoe Total Contact Cast (TCC) - Right ($) -Debridement - Subq, 1st 20sq cm No No -Apply Skin Sub - 1st 25 sq cm - Feet 1 1 -Epifix 18mm Disc 3 3 #3 RT HEEL -Time 10:18 11:07 -Correct Patient Yes Yes -Correct Side, Site, Position Yes Yes -Correct Procedure Yes Yes -Procedure Performed Yes Yes -Type of Procedure Debridement Debridement -Clinical Debridement Subcutaneous Subcutaneous -Tissue Removed Subcutaneous Subcutaneous -Post Debridement (cm) - Length 1.8 0.5 0.1 -Post Debridement (cm) - Width 0.5 0.5 0.1 -Post Debridement (cm) - Depth 0.1 0.1 0.1 -Total Square (Post) (cm) 0.90 0.25 0.01 -Area of Debridement (cm) - Length 1.8 0.5 0.1 -Area of Debridement (cm) - Width 0.5 0.5 0.1 -Total Square (Area) (cm) 0.90 0.25 0.01 -Tunneling No No -Undermining/Tunneling No No -Circular Undermining No No -Wound/Ulcer Outcome Not Healed Not Healed -Ulcer Cleansing Rinsed/ Rinsed/ Irrigated with Irrigated with Saline Saline -Foul Odor after Cleansing No No -Bioengineered Tissue No No -Bleeding Controlled with Pressure Pressure NA -Treatment Response Procedure Procedure Tolerated Well Tolerated Well -Offloading No -Type of Offloading Total Contact Cast (TCC) - Right ($) -Debridement - Subq, 1st 20sq cm Yes Yes Pain Scale: 0-10 Numeric Is Patient Pain Free? Yes Yes Yes WC - Nurse 3 - General Ulcer D/C NN Start: 03/13/24 09:52 Freq: Status: Active Protocol: Activity Type Activity Date Activity User E-sign Co-sign Detail Recorded Client Recorded Date Recorded By Document 03/13/24 11:04 RB [id number] 03/13/24 11:05 RB Document 03/20/24 14:55 DL 10.10.25.7 03/20/24 14:58 DL 03/13/24 03/20/24 11:04 14:55 Wound Care Center Nurse 3 #4 RT GREAT TOE -Foul Odor after Cleansing No -Other Dressing padded with Epi piece ABD pad -Primary Dressing Covered/Secured with Dry Gauze,Dry Dry Gauze, Gauze & Roll Secured with Gauze,Secured Tape with Tape -Other Covering TCC #3 RT HEEL -Foul Odor after Cleansing No -Other Dressing foam pad Epi -Primary Dressing Covered/Secured with Dry Gauze -Other Covering TCC -Wound Comment(s) primary layer of TCC cast applied Treatment Response Procedure Tolerated Well Pain Scale: 0-10 Numeric Is Patient Pain Free? Yes Yes Teaching: Wound Center Offload: Mattress, Cushion, Reposition -Person Taught Patient -Teaching Method Discussion, Demonstration -Response to teaching Verbalize Understanding WC - Visit Discharge Discharge Condition Stable Stable Ambulatory Status Ambulatory Ambulatory, Walker Transportation Private Auto Private Auto Medication Reconcilliation completed & No provided to patient/care provider Clinical Summary of Care Provided Yes Assessment/Plan Assessment/Plan (1) Non-pressure chronic ulcer of other part of right foot with fat layer exposed: CODE(S): L97.512 - Non-pressure chronic ulcer of other part of right foot with fat layer exposed (2) Chronic ulcer of right heel with fat layer exposed: CODE(S): L97.412 - Non-pressure chronic ulcer of right heel and midfoot with fat layer exposed (3) Acute painful diabetic polyneuropathy: CODE(S): E11.42 - Type 2 diabetes mellitus with diabetic polyneuropathy (4) Type 2 diabetes mellitus with foot ulcer: CODE(S): E11.621 - Type 2 diabetes mellitus with foot ulcer; L97.509 - Non-pressure chronic ulcer of other part of unspecified foot with unspecified severity QUALIFIERS: Diabetes mellitus recreation program specialist insulin use: with recreation program specialist use Qualified Code(s): E11.621 - Type 2 diabetes mellitus with foot ulcer; L97.509 - Non-pressure chronic ulcer of other part of unspecified foot with unspecified severity; Z79.4 - dental chairside assistant (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 Right hallux distal tuft ulceration measures 0.1 cm x 0.1 cm x 0.1 cm and right posterior lateral heel ulceration measures 0.1 cm x 0.1 cm x 0.1 cm. No signs of infection. Joelle to the Right Heel. He is to change dressing daily. EpiFix graft #6 was applied to the right Hallux at visit 03/20/24 and dressed with Adaptic touch and anchored with Steri-Strips and dressed with dry sterile dressing. Discussed with new epithelialized skin at the hallux we will refrain from further application of the EpiFix graft we will continue protecting site with dry sterile dressing and followed with another application of TCC. Ulceration at hallux demonstrate continued reduction in size versus previous visit. Right heel demonstrates continued reduction in size. Will continue with TCC application as sites are almost healed. He was approved for EpiFix graft for Right heel and has finished all 10 applications. He was approved for EpiFix for Right Hallux, and will continue application. I recommend total contact cast application again to the right lower extremity 03/26/24. He is amendable to have a right lower extremity total contact cast applied and verbal consent was obtained. This was applied according to standard protocol in a rectus position that was also well padded according to standard protocol. He tolerated this well. He was advised to keep this clean, dry, and intact until follow-up next week. Discussed continued wearing of Tubigrip compression stockings until ulcerations have healed at which time he will change to bilateral compression stocking. Discussed continuing to elevate feet at all times of rest for edema control. Discussed adequate protein intake to continue to aid in wound healing. Florentin supplementation was recommended. Discussed proper diabetic diet in addition to the stated above to ensure adequate wound healing. Patient states that his sugars have been up but not above 200. does state he does eat things that he should not though. Recent visit with PCP demonstrates increase in weight. He has continued taking the instructed supplements for his neuropathy consisting of of complex B vitamin daily, magnesium 250 mg daily, alpha lipoic acid 300 mg daily, and 500 mg glutamine supplement. Discussed continuing to take it and allow time for the nerves to continue repair. Discussed signs and symptoms of infection. Discussed with the patient if he notices redness about the wound margins that continues to spread or moves up the leg, any purulent drainage from the wound site, increasing foul odor from the wound or if he experiences fever greater than 101 degree accompanied by nausea, vomiting, chills, that these are signs of a progressing infection and he should report to the ED for IV antibiotics and further evaluation. He and his voiced understanding of this today. The following work up and care recommendations were made: Dressing: Joelle to wound base right heel. EpiFix graft, wound veil, Steri- Strips, nurse hat to right hallux. TCC to Right Leg Wash: Do not get wet Tissue growth optimization: Joelle right Heel; EpiFix Right Hallux. Offload: Elevating lower extremities at rest and TCC right leg Vascular: DP and PT pulses are weakly palpable with adequate capillary fill time. Do not feel that vascular status is affecting wound healing. Edema: Continue elevating lower extremities at all times of rest. Continue wearing Tubigrip compression stocking. Discussed eventual change to a standard prescription compression stocking once wounds have healed. Infection: No signs of infection. Wound cultures were taken given patient's prior history of recurrent bacterial infection at the sites. Pain: May take [id number] Tylenol for discomfort Host factors: DM type II with peripheral polyneuropathy, HTN, morbid obesity, lymphedema I answered all the patient's questions. To return to the wound healing center in 1 week or call sooner if the patient has any questions or concerns.
--- NOTE | 2024-04-03 09:43 | WC ---
PHOTO 03/20/24 RIGHT GREAT TOE
--- NOTE | 2024-04-03 09:46 | WC ---
PHOTO 03/20/24 RIGHT HEEL
--- NOTE | 2024-04-03 09:49 | WC ---
PHOTO RIGHT GREAT TOE 03/20/24
--- NOTE | 2024-04-03 09:53 | PCM.WC.PN ---
History of Present Illness Date of Service: 04/03/24 Chief Complaint: Right heel ulcer and right hallux ulcer History of Wound: 68 year old male presents to the wound center for evaluation of his right heal ulcer. It started as a a pressure ulcer in February 2022 when he he was in TCU and it healed. It then became a blister right before his Left TKR surgery. He had his left knee replaced 07/14/22 at [facility]. 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 He also has a history of diabetes type II with peripheral polyneuropathy, HTN, lymphedema, hypercholesterolemia and PE that he is on Xerelto. Wound culture obtained on 08/30/22 which are positive for VRE, Kocuria kristinae and Corynebacterium striatum. He will completed the Linezolid. Wound culture obtained 06/20/23 which was positive for Staphylococcus pseudintermediu, Pseudomonas aeruginosa, Corynebacterium minutissiumum, and Anaerobic cocci. He was started on Levaquin and Flagyl. Foot xray 09/27/22 - Osteopenia with diffuse osteoarthritic changes. Diffuse soft tissue swelling with ossification of the distal Achilles tendon. No acute abnormality or evidence of erosive changes. Did undergo updated radiograph of the right foot 11/08/2023 with no noted changes from previous x-ray. This is a recurring ulceration to both distal medial tuft of the right hallux and posterior lateral heel. He states both sites had scabbed up and he was previously discharged however scabs have later broken down with re-ulceration. Wound care -currently applying Joelle daily and is offloading and surgical shoe to the right foot. He denies any fever, chills, nausea and vomiting. Denies further complaints. Subjective Subjective This is a 68-year-old male who presents to the wound care center for continued follow-up of right hallux distal tuft ulceration and right posterior lateral calcaneal ulceration. Patient does report history of recurring ulcerations of these 2 specific sites over the last several years. Continues doxycycline for his knee. States he has continued to do well with a total contact cast over the last week. Denies constitutional symptoms. Denies further complaints. Objective Data Objective Data Vital Signs: Vital Signs Temp Pulse Resp BP O2 Del Method 96.9 F L 89 16 160/97 H Room Air 03/20/24 10:22 03/26/24 15:30 03/26/24 15:30 03/26/24 15:30 03/26/24 15:30 Oxygen Delivery Method Room Air Physical Exam Const alert, oriented x3, no apparent distress and well nourished General Appearance: cooperative Nutritional Appearance: morbidly obese HEENT normocephalic Eyes General Eye: normal appearance of both eyes Neck General: normal visual inspection Lymph Lymphatic: no lymphadenopathy noted and no lymphedema noted Resp normal respiratory effort Cardio regular rate and regular rhythm Extremity normal capillary refill, no joint enlargement and no calf tenderness Extremity Narrative: Vascular: DP and PT pulses weakly palpable. CFT less than 5 seconds to the digits. Normal temperature gradient. Hair growth is absent to digits/foot. Neurologic: Gross sensation intact. Decreased light touch sensation. Absent protective sensation tested with 5.07g [place] [employer] monofilament. Lack of protective sensation consistent with diabetic peripheral polyneuropathy Dermatologic: There is varicosities noted to the lower extremity with subsequent edema about foot and LIANNA ankle. There is newly epithelialized skin at the distal hallux tuft at site of previous ulceration consistent with healing. There is a posterior lateral heel ulceration with newly epithelialized skin and slight hyperkeratosis at the wound margin. No signs of infection. Musculoskeletal: Muscle strength 5 of 5 age-appropriate. Decreased range of motion of the ankle joint in dorsiflexion with the knee extended without pain or crepitus. Decreased range of motion of the first metatarsophalangeal joint without pain or crepitus. There is hammertoe deformity of digits 1 through 5. Skin no rashes or lesions noted, skin turgor normal and no jaundice Neuro moves all extremities Debridement Note Debridement Note No debridement was completed: No debridement was completed today Post-Debridement Measurements and Additional Note: Post-Debridement Measurements/Treatment WC - Nurse 1 - General Ulcer Assessment Start: 03/13/24 09:52 Freq: Status: Active Protocol: NELL Activity Type Activity Date Activity User E-sign Co-sign Detail Recorded Client Recorded Date Recorded By Document 03/13/24 09:52 KW f 03/13/24 10:05 KW Document 03/20/24 10:22 CP 03/20/24 10:32 CP Document 03/26/24 15:30 [facility] [email or web address] 03/26/24 15:42 BMF 03/13/24 03/20/24 03/26/24 09:52 10:22 15:30 - Today's Visit Information Type of service Follow-up Visit Follow-up Visit Follow-up Visit (Physician/LEADERSHIP RECRUITER (Physician/LEADERSHIP RECRUITER (Physician/LEADERSHIP RECRUITER ) ) ) Arrival Mode Ambulatory, Ambulatory, Ambulatory, Walker Walker Walker Transfer Assistance None Accompanied by Patient Identification Verified (Name & Yes Yes Yes ) Patient Requires Transmission-Based No Precautions Safety Precautions Fall Prevention Vital Signs Temperature (97.8 F-99.1 F) 97.5 F L 96.9 F L Temperature Source Temporal Temporal Pulse Rate (60-100) 90 84 89 Pulse Location Monitor Monitor Monitor Respiratory Rate (12-18) 18 16 16 Respiratory rate source Observation Observation Observation Oxygen Delivery Method Room Air Room Air Blood Pressure (90/60-120/80) 170/92 H 164/91 H 160/97 H Blood Pressure Mean (mm Hg) 118 115 118 Source Monitor Monitor Monitor Position Sitting Sitting Sitting Blood Pressure Location Left Forearm Left Forearm Right Forearm History Since Last Visit- (Skip if this is Patient's initial visit) Have you changed medications since your No No No last visit? Any new allergies or adverse reactions No No No Had a fall/change in ADL's that may No No No increase risk of falls Signs or symptoms of abuse and/or No No No neglect since last visit Have you been in the hospital since your No No No last visit? Has dressing in place as prescribed Yes Yes Yes Has compression in place as prescribed Yes N/A N/A Has offloadiing in place as prescribed Yes Yes Yes Experienced any changes in pain level or No No No management Left Footwear Regular Shoe Diabetic Shoe Right Footwear Surgical Shoe Total Contact Total Contact with pressure Cast Cast relief insole Pain Scale: 0-10 Numeric Is Patient Pain Free? Yes Yes Yes Teaching: Wound Center EPIFIX -Person Taught Patient, Significant Other -Teaching Method Discussion -Response to teaching Verbalize Understanding Eliminating Foot Pressure -Person Taught Patient, Significant Other -Teaching Method Discussion -Response to teaching Verbalize Understanding Offload: Mattress, Cushion, Reposition -Person Taught Patient, Significant Other -Teaching Method Discussion -Response to teaching Verbalize Understanding Foot Care -Person Taught Patient, Significant Other -Teaching Method Discussion *Debridement -Person Taught Patient, Significant Other -Teaching Method Discussion -Response to teaching Verbalize Understanding WC - Nurse 1 - General Ulcer Measurement Start: 03/13/24 09:52 Freq: Status: Active Protocol: Activity Type Activity Date Activity User E-sign Co-sign Detail Recorded Client Recorded Date Recorded By Document 03/13/24 09:52 KW f 03/13/24 10:05 KW Document 03/20/24 10:22 CP 03/20/24 10:32 CP Document 03/26/24 15:30 BMF [email or web address] 03/26/24 15:42 BM 03/13/24 03/20/24 03/26/24 09:52 10:22 15:30 Wound Center Nurse 1 #4 RT GREAT TOE -Current Size (cm) - Length 0.2 0.1 0.1 -Current Size (cm) - Width 0.3 0.1 0.1 -Current Size (cm) - Depth 0.1 0.1 0.1 -Total Square Cm 0.06 0.01 0.01 -Date of Last Picture (Recall this 03/13/24 03/20/24 field) -Photo Taken Yes -Epithelialization Large 67-100% Large 67-100% -Tunneling No -Undermining/Tunneling No -Circular Undermining No -Exudate Amt Small Small Medium -Exudate Type Serosanguineous Serous Serosanguineous -Wound Margin Distinct, Outline Attached -Granulation Amt Large (67-100%) -Granulation Quality Red -Necrosis Amt Small (1-33%) -Necrotic Tissue Type Adherent Slough -Structure Exposed N/A -Texture (Lianna-wound Skin Appearance) Assessed No Abnormality Assessed -Moisture (Lianna-wound Skin Appearance) Assessed No Abnormality Assessed -Color (Lianna-wound Skin Appearance) Assessed No Abnormality Assessed -Temperature (Lianna-wound Skin No Abnormality No Abnormality No Abnormality Appearance) (Pt Warm) (Pt Warm) (Pt Warm) -Tenderness on Palpation (Lianna-wound No No No Skin Appearance) -Ulcer Cleansing Soap and Water Soap and Water Soap and Water -Foul Odor after Cleansing No No No -Anesthetic Used 5% Lidocaine 5% Lidocaine Gel Gel #3 RT HEEL -Combined with other wound No -Current Size (cm) - Length 0.2 0.3 0.1 -Current Size (cm) - Width 1.1 0.3 0.1 -Current Size (cm) - Depth 0.1 0.1 0.1 -Total Square Cm 0.22 0.09 0.01 -Date of Last Picture (Recall this 03/13/24 field) -Epithelialization Large 67-100% Large 67-100% -Tunneling No -Undermining/Tunneling No -Circular Undermining No -Exudate Amt Small Medium -Exudate Type Serosanguineous Serosanguineous Serosanguineous -Wound Margin Distinct, Flat & Intact Outline Attached -Granulation Amt Medium (34-66%) Large (67-100%) -Granulation Quality Red [place] -Necrosis Amt Medium (34-66%) Small (1-33%) -Necrotic Tissue Type Adherent Slough Adherent Slough -Structure Exposed N/A -Texture (Lianna-wound Skin Appearance) Assessed No Abnormality Assessed -Moisture (Lianna-wound Skin Appearance) Assessed, No Abnormality Assessed Maceration -Color (Lianna-wound Skin Appearance) Assessed No Abnormality Assessed -Temperature (Lianna-wound Skin No Abnormality No Abnormality No Abnormality Appearance) (Pt Warm) (Pt Warm) (Pt Warm) -Tenderness on Palpation (Lianna-wound No No No Skin Appearance) -Ulcer Cleansing Soap and Water Soap and Water Soap and Water -Foul Odor after Cleansing No No -Anesthetic Used 5% Lidocaine 5% Lidocaine 5% Lidocaine Gel Gel Gel Right Calf (cm) 47.2 WC - Nurse 2 - General Ulcer CM Notes Start: 03/13/24 09:52 Freq: Status: Active Protocol: Activity Type Activity Date Activity User E-sign Co-sign Detail Recorded Client Recorded Date Recorded By Document 03/13/24 10:09 BMF [email or web address] 03/13/24 10:35 BMF Document 03/20/24 10:58 JF 000 03/20/24 11:08 JF Document 03/26/24 15:49 BMF 10. 03/26/24 15:50 BMF Edit Result 03/26/24 15:49 BMF (1) 10.10.03/26/24 15:52 BMF (1) #4 RT GREAT TOE - Post Debridement (cm) - Length => 0.1 - Post Debridement (cm) - Width => 0.1 - Post Debridement (cm) - Depth => 0.1 - Total Square (Post) (cm) => 0.01 - Area of Debridement (cm) - Length => 0.1 - Area of Debridement (cm) - Width => 0.1 - Total Square (Area) (cm) => 0.01 #3 RT HEEL - Post Debridement (cm) - Length => 0.1 - Post Debridement (cm) - Width => 0.1 - Post Debridement (cm) - Depth => 0.1 - Total Square (Post) (cm) => 0.01 - Area of Debridement (cm) - Length => 0.1 - Area of Debridement (cm) - Width => 0.1 - Total Square (Area) (cm) => 0.01 03/13/24 03/20/24 03/26/24 10:09 10:58 15:49 Wound Center Nurse 2 #4 RT GREAT TOE -Time 10:11 11:00 15:50 -Correct Patient Yes Yes -Correct Side, Site, Position Yes Yes -Correct Procedure Yes Yes -Procedure Performed Yes Yes -Type of Procedure Debridement Debridement -Clinical Debridement Subcutaneous Subcutaneous -Tissue Removed Subcutaneous Subcutaneous -Post Debridement (cm) - Length 0.6 0.1 0.1 -Post Debridement (cm) - Width 0.5 0.1 0.1 -Post Debridement (cm) - Depth 0.1 0.1 0.1 -Total Square (Post) (cm) 0.30 0.01 0.01 -Area of Debridement (cm) - Length 0.6 0.1 0.1 -Area of Debridement (cm) - Width 0.5 0.1 0.1 -Total Square (Area) (cm) 0.30 0.01 0.01 -Tunneling No No -Undermining/Tunneling No No -Circular Undermining No No -Wound/Ulcer Outcome Not Healed Not Healed -Ulcer Cleansing Rinsed/ Rinsed/ Irrigated with Irrigated with Saline Saline -Foul Odor after Cleansing No No -Bioengineered Tissue Yes Yes -Type of Bioengineered Tissue Epifix 18mm Epifix 18mm Disc Disc -Expiration Date 09/13/28 09/13/28 -Product Lot Number [id number] -Percent Used 100 100 -Lot number of Saline Used [id number] -Bleeding Controlled with Pressure Pressure NA -Treatment Response Procedure Procedure Tolerated Well Tolerated Well -Offloading Yes Yes -Type of Offloading Surgical Shoe Total Contact Cast (TCC) - Right ($) -Debridement - Subq, 1st 20sq cm No No -Apply Skin Sub - 1st 25 sq cm - Feet 1 1 -Epifix 18mm Disc 3 3 #3 RT HEEL -Time 10:18 11:07 -Correct Patient Yes Yes -Correct Side, Site, Position Yes Yes -Correct Procedure Yes Yes -Procedure Performed Yes Yes -Type of Procedure Debridement Debridement -Clinical Debridement Subcutaneous Subcutaneous -Tissue Removed Subcutaneous Subcutaneous -Post Debridement (cm) - Length 1.8 0.5 0.1 -Post Debridement (cm) - Width 0.5 0.5 0.1 -Post Debridement (cm) - Depth 0.1 0.1 0.1 -Total Square (Post) (cm) 0.90 0.25 0.01 -Area of Debridement (cm) - Length 1.8 0.5 0.1 -Area of Debridement (cm) - Width 0.5 0.5 0.1 -Total Square (Area) (cm) 0.90 0.25 0.01 -Tunneling No No -Undermining/Tunneling No No -Circular Undermining No No -Wound/Ulcer Outcome Not Healed Not Healed -Ulcer Cleansing Rinsed/ Rinsed/ Irrigated with Irrigated with Saline Saline -Foul Odor after Cleansing No No -Bioengineered Tissue No No -Bleeding Controlled with Pressure Pressure NA -Treatment Response Procedure Procedure Tolerated Well Tolerated Well -Offloading No -Type of Offloading Total Contact Cast (TCC) - Right ($) -Debridement - Subq, 1st 20sq cm Yes Yes Pain Scale: 0-10 Numeric Is Patient Pain Free? Yes Yes Yes WC - Nurse 3 - General Ulcer D/C NN Start: 03/13/24 09:52 Freq: Status: Active Protocol: Activity Type Activity Date Activity User E-sign Co-sign Detail Recorded Client Recorded Date Recorded By Document 03/13/24 11:04 RB [id number] 03/13/24 11:05 RB Document 03/20/24 14:55 DL 10.10.25.7 03/20/24 14:58 DL Document 03/26/24 16:12 BMF 10.10.25.7 03/26/24 16:13 BMF 03/13/24 03/20/24 03/26/24 11:04 14:55 16:12 Wound Care Center Nurse 3 #4 RT GREAT TOE -Foul Odor after Cleansing No -Other Dressing padded with Epi piece ABD pad -Primary Dressing Covered/Secured with Dry Gauze,Dry Dry Gauze, Dry Gauze, Gauze & Roll Secured with Secured with Gauze,Secured Tape Tape with Tape -Other Covering TCC #3 RT HEEL -Foul Odor after Cleansing No -Other Dressing foam pad Epi tcc undercast -Primary Dressing Covered/Secured with Dry Gauze Dry Gauze, Secured with Tape -Other Covering TCC -Wound Comment(s) primary layer of TCC cast applied Right -Other tcc undercast Treatment Response Procedure Procedure Tolerated Well Tolerated Well Pain Scale: 0-10 Numeric Is Patient Pain Free? Yes Yes Yes Teaching: Wound Center Offload: Mattress, Cushion, Reposition -Person Taught Patient -Teaching Method Discussion, Demonstration -Response to teaching Verbalize Understanding WC - Visit Discharge Discharge Condition Stable Stable Stable Ambulatory Status Ambulatory Ambulatory, Ambulatory Walker Transportation Private Auto Private Auto Private Auto Accompanied by Medication Reconcilliation completed & No provided to patient/care provider Clinical Summary of Care Provided Yes Assessment/Plan Assessment/Plan (1) Non-pressure chronic ulcer of other part of right foot with fat layer exposed: CODE(S): L97.512 - Non-pressure chronic ulcer of other part of right foot with fat layer exposed (2) Chronic ulcer of right heel with fat layer exposed: CODE(S): L97.412 - Non-pressure chronic ulcer of right heel and midfoot with fat layer exposed (3) Acute painful diabetic polyneuropathy: CODE(S): E11.42 - Type 2 diabetes mellitus with diabetic polyneuropathy (4) Type 2 diabetes mellitus with foot ulcer: CODE(S): E11.621 - Type 2 diabetes mellitus with foot ulcer; L97.509 - Non-pressure chronic ulcer of other part of unspecified foot with unspecified severity QUALIFIERS: Diabetes mellitus medical terminologist insulin use: with detention use Qualified Code(s): E11.621 - Type 2 diabetes mellitus with foot ulcer; L97.509 - Non-pressure chronic ulcer of other part of unspecified foot with unspecified severity; Z79.4 - exterminator 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 (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) use of insulin (5) Hypertension: CODE(S): I10 - Essential (primary) hypertension QUALIFIERS: Hypertension type: primary hypertension Qualified Code(s): I10 - Essential (primary) hypertension (6) Lymphedema: CODE(S): I89.0 - Lymphedema, not elsewhere classified (7) Super obesity: CODE(S): E66.9 - Obesity, unspecified (8) Lower extremity edema: CODE(S): R60.0 - Localized edema PLAN: Plan Patient seen and evaluated Pre-debridement: Hallux 0.1cm x 0.1 cm x 0.1cm ; Right Heel 0.1cm x 0.1cm x 0.1cm Ulcerations did not undergo debridement as noted in the clinical panel above due to newly epithelialized skin. Right hallux distal tuft ulceration measures 0.1 cm x 0.1 cm x 0.1 cm and right posterior lateral heel ulceration measures 0.1 cm x 0.1 cm x 0.1 cm. No signs of infection. Foam border dressing to right heel to pad and protect area. He is to change dressing daily. EpiFix graft #6 was applied to the right Hallux at visit 03/20/24. Discussed with new epithelialized skin at the hallux we will continue to refrain from further application of the EpiFix graft we will continue protecting site with dry sterile dressing. Discussed transition back to supportive shoe gear and digital offloading pad was placed to the plantar side of his diabetic insert to prevent hammering of the hallux which I believe is causing pressure and ulceration. Ulceration at hallux demonstrate continued reduction in size versus previous visit. Right heel demonstrates continued reduction in size. Discussed close monitoring of the newly epithelialized sites to prevent recidivism upon return to shoe gear today. He was approved for EpiFix graft for Right heel and has finished all 10 applications. He was approved for EpiFix for Right Hallux, and will continue application. Discussed continued wearing of Tubigrip compression stockings until ulcerations have healed at which time he will change to bilateral compression stocking. Discussed continuing to elevate feet at all times of rest for edema control. Discussed adequate protein intake to continue to aid in wound healing. Florentin supplementation was recommended. Discussed proper diabetic diet in addition to the stated above to ensure adequate wound healing. Patient states that his sugars have been up but not above 200. does state he does eat things that he should not though. Recent visit with PCP demonstrates increase in weight. He has continued taking the instructed supplements for his neuropathy consisting of of complex B vitamin daily, magnesium 250 mg daily, alpha lipoic acid 300 mg daily, and 500 mg glutamine supplement. Discussed continuing to take it and allow time for the nerves to continue repair. Discussed signs and symptoms of infection. Discussed with the patient if he notices redness about the wound margins that continues to spread or moves up the leg, any purulent drainage from the wound site, increasing foul odor from the wound or if he experiences fever greater than 101 degree accompanied by nausea, vomiting, chills, that these are signs of a progressing infection and he should report to the ED for IV antibiotics and further evaluation. He and his voiced understanding of this today. The following work up and care recommendations were made: Dressing: Foam border dressing to right heel to pad and protect. Dry sterile dressing right hallux to pad and protect. Offloading padding of the hallux to plantar side of diabetic insert. Will continue to wear diabetic shoes. Wash: Soap and water Tissue growth optimization: None Offload: Elevating lower extremities at rest. Vascular: DP and PT pulses are weakly palpable with adequate capillary fill time. Do not feel that vascular status is affecting wound healing. Edema: Continue elevating lower extremities at all times of rest. Continue wearing Tubigrip compression stocking. Discussed eventual change to a standard prescription compression stocking once wounds have healed. Infection: No signs of infection. Wound cultures were taken given patient's prior history of recurrent bacterial infection at the sites. Pain: May take [id number] Tylenol for discomfort Host factors: DM type II with peripheral polyneuropathy, HTN, morbid obesity, lymphedema Discussed continued padding and protecting of his ulcerative sites as stated above to discourage recidivism of his newly epithelialized skin. Discussed recheck next week to ensure sites remain closed. I answered all the patient's questions. To return to the wound healing center in 1 week or call sooner if the patient has any questions or concerns.
[2024-04-03 10:17] VITALS: BP 150/84; PULSE 82; RESP 16; TEMP 36.7
--- NOTE | 2024-04-03 14:04 | WC ---
PHOTO 04/03/24 RIGHT HALLUX
[2024-04-10 10:30] VITALS: BP 162/86; PULSE 81; RESP 18; TEMP 36.1
--- NOTE | 2024-04-10 10:30 | PCM.WC.PN ---
History of Present Illness Date of Service: 04/10/24 Chief Complaint: Right heel ulcer and right hallux ulcer History of Wound: 68 year old male presents to the wound center for evaluation of his right heal ulcer. It started as a a pressure ulcer in February 2022 when he he was in TCU and it healed. It then became a blister right before his Left TKR surgery. He had his left knee replaced 07/14/22 at [facility]. 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 He also has a history of diabetes type II with peripheral polyneuropathy, HTN, lymphedema, hypercholesterolemia and PE that he is on Xerelto. Wound culture obtained on 08/30/22 which are positive for VRE, Kocuria kristinae and Corynebacterium striatum. He will completed the Linezolid. Wound culture obtained 06/20/23 which was positive for Staphylococcus pseudintermediu, Pseudomonas aeruginosa, Corynebacterium minutissiumum, and Anaerobic cocci. He was started on Levaquin and Flagyl. Foot xray 09/27/22 - Osteopenia with diffuse osteoarthritic changes. Diffuse soft tissue swelling with ossification of the distal Achilles tendon. No acute abnormality or evidence of erosive changes. Did undergo updated radiograph of the right foot 11/08/2023 with no noted changes from previous x-ray. This is a recurring ulceration to both distal medial tuft of the right hallux and posterior lateral heel. He states both sites had scabbed up and he was previously discharged however scabs have later broken down with re-ulceration. Wound care -currently applying Joelle daily and is offloading and surgical shoe to the right foot. He denies any fever, chills, nausea and vomiting. Denies further complaints. Subjective Subjective This is a 68-year-old male who presents to the wound care center for continued follow-up of right hallux distal tuft ulceration and right posterior lateral calcaneal ulceration. Patient does report history of recurring ulcerations of these 2 specific sites over the last several years. Continues doxycycline for his knee. States he feels he has done okay with transition back to shoe gear however notices the distal tuft of his hallux appears to be rubbed raw again. Denies constitutional symptoms. Denies further complaints. Objective Data Objective Data Vital Signs: Vital Signs Temp Pulse Resp BP O2 Del Method 98.0 F 82 16 150/84 H Room Air 04/03/24 10:17 04/03/24 10:17 04/03/24 10:17 04/03/24 10:17 03/26/24 15:30 Oxygen Delivery Method Room Air Physical Exam Const alert, oriented x3, no apparent distress and well nourished General Appearance: cooperative Nutritional Appearance: morbidly obese HEENT normocephalic Eyes General Eye: normal appearance of both eyes Neck General: normal visual inspection Lymph Lymphatic: no lymphadenopathy noted and no lymphedema noted Resp normal respiratory effort Cardio regular rate and regular rhythm Extremity normal capillary refill, no joint enlargement and no calf tenderness Extremity Narrative: Vascular: DP and PT pulses weakly palpable. CFT less than 5 seconds to the digits. Normal temperature gradient. Hair growth is absent to digits/foot. Neurologic: Gross sensation intact. Decreased light touch sensation. Absent protective sensation tested with 5.07g [place] Zen monofilament. Lack of protective sensation consistent with diabetic peripheral polyneuropathy Dermatologic: There is varicosities noted to the lower extremity with subsequent edema about foot and LIANNA ankle. There is rubor distal tuft of the hallux consistent with pressure ulceration. There is a posterior lateral heel ulceration with newly epithelialized skin. No signs of infection. Musculoskeletal: Muscle strength 5 of 5 age-appropriate. Decreased range of motion of the ankle joint in dorsiflexion with the knee extended without pain or crepitus. Decreased range of motion of the first metatarsophalangeal joint without pain or crepitus. There is hammertoe deformity of digits 1 through 5. Skin no rashes or lesions noted, skin turgor normal and no jaundice Neuro moves all extremities Debridement Note Debridement Note No debridement was completed: No debridement was completed today Post-Debridement Measurements and Additional Note: Post-Debridement Measurements/Treatment WC - Nurse 1 - General Ulcer Assessment Start: 03/13/24 09:52 Freq: Status: Active Protocol: NELL Activity Type Activity Date Activity User E-sign Co-sign Detail Recorded Client Recorded Date Recorded By Document 03/13/24 09:52 KW f 03/13/24 10:05 KW Document 03/20/24 10:22 CP 03/20/24 10:32 CP Document 03/26/24 15:30 [facility] 10.10.25.7 03/26/24 15:42 BMF Document 04/03/24 10:17 [id number] 04/03/24 10:18 03/13/24 03/20/24 03/26/24 09:52 10:22 15:30 - Today's Visit Information Type of service Follow-up Visit Follow-up Visit Follow-up Visit (Physician/ELECTRICIAN CRANE MAINTENANCE (Physician/ELECTRICIAN CRANE MAINTENANCE (Physician/ELECTRICIAN CRANE MAINTENANCE ) ) ) Arrival Mode Ambulatory, Ambulatory, Ambulatory, Walker Walker Walker Transfer Assistance None Accompanied by Patient Identification Verified (Name & Yes Yes Yes ) Patient Requires Transmission-Based No Precautions Safety Precautions Fall Prevention Finger Stick Blood Sugar(mg/dl) (if indicated): Blood Sugar Vital Signs Temperature (97.8 F-99.1 F) 97.5 F L 96.9 F L Temperature Source Temporal Temporal Pulse Rate (60-100) 90 84 89 Pulse Location Monitor Monitor Monitor Respiratory Rate (12-18) 18 16 16 Respiratory rate source Observation Observation Observation Oxygen Delivery Method Room Air Room Air Blood Pressure (90/60-120/80) 170/92 H 164/91 H 160/97 H Blood Pressure Mean (mm Hg) 118 115 118 Source Monitor Monitor Monitor Position Sitting Sitting Sitting Blood Pressure Location Left Forearm Left Forearm Right Forearm History Since Last Visit- (Skip if this is Patient's initial visit) Have you changed medications since your No No No last visit? Any new allergies or adverse reactions No No No Had a fall/change in ADL's that may No No No increase risk of falls Signs or symptoms of abuse and/or No No No neglect since last visit Have you been in the hospital since your No No No last visit? Has dressing in place as prescribed Yes Yes Yes Has compression in place as prescribed Yes N/A N/A Has offloadiing in place as prescribed Yes Yes Yes Experienced any changes in pain level or No No No management Left Footwear Regular Shoe Diabetic Shoe Right Footwear Surgical Shoe Total Contact Total Contact with pressure Cast Cast relief insole Pain Scale: 0-10 Numeric Is Patient Pain Free? Yes Yes Yes Teaching: Wound Center EPIFIX -Person Taught Patient, Significant Other -Teaching Method Discussion -Response to teaching Verbalize Understanding Eliminating Foot Pressure -Person Taught Patient, Significant Other -Teaching Method Discussion -Response to teaching Verbalize Understanding Offload: Mattress, Cushion, Reposition -Person Taught Patient, Significant Other -Teaching Method Discussion -Response to teaching Verbalize Understanding Foot Care -Person Taught Patient, Significant Other -Teaching Method Discussion *Debridement -Person Taught Patient, Significant Other -Teaching Method Discussion -Response to teaching Verbalize Understanding 04/03/24 10:17 - Today's Visit Information Type of service Follow-up Visit (Physician/ELECTRICIAN CRANE MAINTENANCE ) Arrival Mode Ambulatory, Walker Transfer Assistance Accompanied by Patient Identification Verified (Name & Yes ) Patient Requires Transmission-Based No Precautions Safety Precautions Finger Stick Blood Sugar(mg/dl) (if 180 indicated): Blood Sugar Stated by Patient Vital Signs Temperature (97.8 F-99.1 F) 98.0 F Temperature Source Temporal Pulse Rate (60-100) 82 Pulse Location Monitor Respiratory Rate (12-18) 16 Respiratory rate source Observation Oxygen Delivery Method Blood Pressure (90/60-120/80) 150/84 H Blood Pressure Mean (mm Hg) 106 Source Monitor Position Sitting Blood Pressure Location Left Forearm History Since Last Visit- (Skip if this is Patient's initial visit) Have you changed medications since your No last visit? Any new allergies or adverse reactions No Had a fall/change in ADL's that may No increase risk of falls Signs or symptoms of abuse and/or No neglect since last visit Have you been in the hospital since your No last visit? Has dressing in place as prescribed Yes Has compression in place as prescribed Yes Has offloadiing in place as prescribed Yes Experienced any changes in pain level or No management Left Footwear Total Contact Cast Right Footwear Regular Shoe Pain Scale: 0-10 Numeric Is Patient Pain Free? Yes Teaching: Wound Center EPIFIX -Person Taught -Teaching Method -Response to teaching Eliminating Foot Pressure -Person Taught -Teaching Method -Response to teaching Offload: Mattress, Cushion, Reposition -Person Taught -Teaching Method -Response to teaching Foot Care -Person Taught -Teaching Method *Debridement -Person Taught -Teaching Method -Response to teaching - Nurse 1 - General Ulcer Measurement Start: 03/13/24 09:52 Freq: Status: Active Protocol: Activity Type Activity Date Activity User E-sign Co-sign Detail Recorded Client Recorded Date Recorded By Document 03/13/24 09:52 KW dhf 03/13/24 10:05 KW Document 03/20/24 10:22 03/20/24 10:32 CP Document 03/26/24 15:30 [facility] 10.10.25.7 03/26/24 15:42 BM Document 04/03/24 10:17 [id number] 04/03/24 10:18 JF 03/13/24 03/20/24 03/26/24 09:52 10:22 15:30 Wound Center Nurse 1 #4 RT GREAT TOE -Combined with other wound -Current Size (cm) - Length 0.2 0.1 0.1 -Current Size (cm) - Width 0.3 0.1 0.1 -Current Size (cm) - Depth 0.1 0.1 0.1 -Total Square Cm 0.06 0.01 0.01 -Date of Last Picture (Recall this 03/13/24 03/20/24 field) -Photo Taken Yes -Epithelialization Large 67-100% Large 67-100% -Tunneling No -Undermining/Tunneling No -Circular Undermining No -Exudate Amt Small Small Medium -Exudate Type Serosanguineous Serous Serosanguineous -Wound Margin Distinct, Outline Attached -Granulation Amt Large (67-100%) -Granulation Quality Red -Necrosis Amt Small (1-33%) -Necrotic Tissue Type Adherent Slough -Structure Exposed N/A -Texture (Lianna-wound Skin Appearance) Assessed No Abnormality Assessed -Moisture (Lianna-wound Skin Appearance) Assessed No Abnormality Assessed -Color (Lianna-wound Skin Appearance) Assessed No Abnormality Assessed -Temperature (Lianna-wound Skin No Abnormality No Abnormality No Abnormality Appearance) (Pt Warm) (Pt Warm) (Pt Warm) -Tenderness on Palpation (Lianna-wound No No No Skin Appearance) -Ulcer Cleansing Soap and Water Soap and Water Soap and Water -Foul Odor after Cleansing No No No -Anesthetic Used 5% Lidocaine 5% Lidocaine Gel Gel #3 RT HEEL -Combined with other wound No -Current Size (cm) - Length 0.2 0.3 0.1 -Current Size (cm) - Width 1.1 0.3 0.1 -Current Size (cm) - Depth 0.1 0.1 0.1 -Total Square Cm 0.22 0.09 0.01 -Date of Last Picture (Recall this 03/13/24 field) -Epithelialization Large 67-100% Large 67-100% -Tunneling No -Undermining/Tunneling No -Circular Undermining No -Exudate Amt Small Medium -Exudate Type Serosanguineous Serosanguineous Serosanguineous -Wound Margin Distinct, Flat & Intact Outline Attached -Granulation Amt Medium (34-66%) Large (67-100%) -Granulation Quality [place] -Necrosis Amt Medium (34-66%) Small (1-33%) -Necrotic Tissue Type Adherent Slough Adherent Slough -Structure Exposed N/A -Texture (Lianna-wound Skin Appearance) Assessed No Abnormality Assessed -Moisture (Lianna-wound Skin Appearance) Assessed, No Abnormality Assessed Maceration -Color (Lianna-wound Skin Appearance) Assessed No Abnormality Assessed -Temperature (Lianna-wound Skin No Abnormality No Abnormality No Abnormality Appearance) (Pt Warm) (Pt Warm) (Pt Warm) -Tenderness on Palpation (Lianna-wound No No No Skin Appearance) -Ulcer Cleansing Soap and Water Soap and Water Soap and Water -Foul Odor after Cleansing No No -Anesthetic Used 5% Lidocaine 5% Lidocaine 5% Lidocaine Gel Gel Gel Lower Limb Edema Present Right Calf (cm) 47.2 Right Ankle (cm) 04/03/24 10:17 Wound Center Nurse 1 #4 RT GREAT TOE -Combined with other wound No -Current Size (cm) - Length 0 -Current Size (cm) - Width 0 -Current Size (cm) - Depth 0 -Total Square Cm 0 -Date of Last Picture (Recall this field) -Photo Taken Yes -Epithelialization Large 67-100% -Tunneling -Undermining/Tunneling -Circular Undermining -Exudate Amt -Exudate Type -Wound Margin -Granulation Amt -Granulation Quality -Necrosis Amt -Necrotic Tissue Type -Structure Exposed -Texture (Lianna-wound Skin Appearance) -Moisture (Lianna-wound Skin Appearance) -Color (Lianna-wound Skin Appearance) -Temperature (Lianna-wound Skin Appearance) -Tenderness on Palpation (Lianna-wound Skin Appearance) -Ulcer Cleansing -Foul Odor after Cleansing -Anesthetic Used #3 RT HEEL -Combined with other wound No -Current Size (cm) - Length 0 -Current Size (cm) - Width 0 -Current Size (cm) - Depth 0 -Total Square Cm 0 -Date of Last Picture (Recall this field) -Epithelialization Large 67-100% -Tunneling -Undermining/Tunneling -Circular Undermining -Exudate Amt -Exudate Type -Wound Margin -Granulation Amt -Granulation Quality -Necrosis Amt -Necrotic Tissue Type -Structure Exposed -Texture (Lianna-wound Skin Appearance) -Moisture (Lianna-wound Skin Appearance) -Color (Lianna-wound Skin Appearance) -Temperature (Lianna-wound Skin Appearance) -Tenderness on Palpation (Lianna-wound Skin Appearance) -Ulcer Cleansing -Foul Odor after Cleansing -Anesthetic Used Lower Limb Edema Present Yes Right Calf (cm) 49.6 Right Ankle (cm) 32.0 WC - Nurse 2 - General Ulcer CM Notes Start: 03/13/24 09:52 Freq: Status: Active Protocol: Activity Type Activity Date Activity User E-sign Co-sign Detail Recorded Client Recorded Date Recorded By Document 03/13/24 10:09 BMF 10.10.25.7 03/13/24 10:35 BMF Document 03/20/24 10:58 JF 000 03/20/24 11:08 JF Document 03/26/24 15:49 BMF [email or web address] 03/26/24 15:50 BMF Edit Result 03/26/24 15:49 BMF (1) [email or web address] 03/26/24 15:52 BMF Document 04/03/24 10:27 BMF [id number] 04/03/24 10:34 BMF (1) #4 RT GREAT TOE - Post Debridement (cm) - Length => 0.1 - Post Debridement (cm) - Width => 0.1 - Post Debridement (cm) - Depth => 0.1 - Total Square (Post) (cm) => 0.01 - Area of Debridement (cm) - Length => 0.1 - Area of Debridement (cm) - Width => 0.1 - Total Square (Area) (cm) => 0.01 #3 RT HEEL - Post Debridement (cm) - Length => 0.1 - Post Debridement (cm) - Width => 0.1 - Post Debridement (cm) - Depth => 0.1 - Total Square (Post) (cm) => 0.01 - Area of Debridement (cm) - Length => 0.1 - Area of Debridement (cm) - Width => 0.1 - Total Square (Area) (cm) => 0.01 03/13/24 03/20/24 03/26/24 10:09 10:58 15:49 Wound Center Nurse 2 #4 RT GREAT TOE -Time 10:11 11:00 15:50 -Correct Patient Yes Yes -Correct Side, Site, Position Yes Yes -Correct Procedure Yes Yes -Procedure Performed Yes Yes -Type of Procedure Debridement Debridement -Clinical Debridement Subcutaneous Subcutaneous -Tissue Removed Subcutaneous Subcutaneous -Post Debridement (cm) - Length 0.6 0.1 0.1 -Post Debridement (cm) - Width 0.5 0.1 0.1 -Post Debridement (cm) - Depth 0.1 0.1 0.1 -Total Square (Post) (cm) 0.30 0.01 0.01 -Area of Debridement (cm) - Length 0.6 0.1 0.1 -Area of Debridement (cm) - Width 0.5 0.1 0.1 -Total Square (Area) (cm) 0.30 0.01 0.01 -Tunneling No No -Undermining/Tunneling No No -Circular Undermining No No -Wound/Ulcer Outcome Not Healed Not Healed -Ulcer Cleansing Rinsed/ Rinsed/ Irrigated with Irrigated with Saline Saline -Foul Odor after Cleansing No No -Bioengineered Tissue Yes Yes -Type of Bioengineered Tissue Epifix 18mm Epifix 18mm Disc Disc -Expiration Date 09/13/28 09/13/28 -Product Lot Number [id number] -Percent Used 100 100 -Lot number of Saline Used [id number] -Bleeding Controlled with Pressure Pressure NA -Treatment Response Procedure Procedure Tolerated Well Tolerated Well -Offloading Yes Yes -Type of Offloading Surgical Shoe Total Contact Cast (TCC) - Right ($) -Debridement - Subq, 1st 20sq cm No No -Apply Skin Sub - 1st 25 sq cm - Feet 1 1 -Epifix 18mm Disc 3 3 #3 RT HEEL -Time 10:18 11:07 -Correct Patient Yes Yes -Correct Side, Site, Position Yes Yes -Correct Procedure Yes Yes -Procedure Performed Yes Yes -Type of Procedure Debridement Debridement -Clinical Debridement Subcutaneous Subcutaneous -Tissue Removed Subcutaneous Subcutaneous -Post Debridement (cm) - Length 1.8 0.5 0.1 -Post Debridement (cm) - Width 0.5 0.5 0.1 -Post Debridement (cm) - Depth 0.1 0.1 0.1 -Total Square (Post) (cm) 0.90 0.25 0.01 -Area of Debridement (cm) - Length 1.8 0.5 0.1 -Area of Debridement (cm) - Width 0.5 0.5 0.1 -Total Square (Area) (cm) 0.90 0.25 0.01 -Tunneling No No -Undermining/Tunneling No No -Circular Undermining No No -Wound/Ulcer Outcome Not Healed Not Healed -Ulcer Cleansing Rinsed/ Rinsed/ Irrigated with Irrigated with Saline Saline -Foul Odor after Cleansing No No -Bioengineered Tissue No No -Bleeding Controlled with Pressure Pressure NA -Treatment Response Procedure Procedure Tolerated Well Tolerated Well -Offloading No -Type of Offloading Total Contact Cast (TCC) - Right ($) -Debridement - Subq, 1st 20sq cm Yes Yes Pain Scale: 0-10 Numeric Is Patient Pain Free? Yes Yes Yes 04/03/24 10:27 Wound Center Nurse 2 #4 RT GREAT TOE -Time -Correct Patient -Correct Side, Site, Position -Correct Procedure -Procedure Performed -Type of Procedure -Clinical Debridement -Tissue Removed -Post Debridement (cm) - Length 0 -Post Debridement (cm) - Width 0 -Post Debridement (cm) - Depth 0 -Total Square (Post) (cm) 0 -Area of Debridement (cm) - Length 0 -Area of Debridement (cm) - Width 0 -Total Square (Area) (cm) 0 -Tunneling -Undermining/Tunneling -Circular Undermining -Wound/Ulcer Outcome Healed- Epithelialized -Ulcer Cleansing -Foul Odor after Cleansing -Bioengineered Tissue -Type of Bioengineered Tissue -Expiration Date -Product Lot Number -Percent Used -Lot number of Saline Used -Bleeding Controlled with NA -Treatment Response -Offloading -Type of Offloading -Debridement - Subq, 1st 20sq cm -Apply Skin Sub - 1st 25 sq cm - Feet -Epifix 18mm Disc #3 RT HEEL -Time 10:27 -Correct Patient -Correct Side, Site, Position -Correct Procedure -Procedure Performed -Type of Procedure -Clinical Debridement -Tissue Removed -Post Debridement (cm) - Length 0 -Post Debridement (cm) - Width 0 -Post Debridement (cm) - Depth 0 -Total Square (Post) (cm) 0 -Area of Debridement (cm) - Length 0 -Area of Debridement (cm) - Width 0 -Total Square (Area) (cm) 0 -Tunneling -Undermining/Tunneling -Circular Undermining -Wound/Ulcer Outcome Healed- Epithelialized -Ulcer Cleansing -Foul Odor after Cleansing -Bioengineered Tissue -Bleeding Controlled with NA -Treatment Response -Offloading -Type of Offloading -Debridement - Subq, 1st 20sq cm Pain Scale: 0-10 Numeric Is Patient Pain Free? Yes WC - Nurse 3 - General Ulcer D/C NN Start: 03/13/24 09:52 Freq: Status: Active Protocol: Activity Type Activity Date Activity User E-sign Co-sign Detail Recorded Client Recorded Date Recorded By Document 03/13/24 11:04 RB [id number] 03/13/24 11:05 RB Document 03/20/24 14:55 DL 10.10.25.7 03/20/24 14:58 DL Document 03/26/24 16:12 BMF 10.10.25.7 03/26/24 16:13 BMF Document 04/03/24 10:34 BMF [id number] 04/03/24 10:36 BMF 03/13/24 03/20/24 03/26/24 11:04 14:55 16:12 Wound Care Center Nurse 3 #4 RT GREAT TOE -Foul Odor after Cleansing No -Other Dressing padded with Epi piece ABD pad -Primary Dressing Covered/Secured with Dry Gauze,Dry Dry Gauze, Dry Gauze, Gauze & Roll Secured with Secured with Gauze,Secured Tape Tape with Tape -Other Covering TCC #3 RT HEEL -Foul Odor after Cleansing No -Primary Dressing Applied -Other Dressing foam pad Epi tcc undercast -Primary Dressing Covered/Secured with Dry Gauze Dry Gauze, Secured with Tape -Other Covering TCC -Mepilex Border -Wound Comment(s) primary layer of TCC cast applied Right -Other tcc undercast Treatment Response Procedure Procedure Tolerated Well Tolerated Well Pain Scale: 0-10 Numeric Is Patient Pain Free? Yes Yes Yes Teaching: Wound Center Offload: Mattress, Cushion, Reposition -Person Taught Patient -Teaching Method Discussion, Demonstration -Response to teaching Verbalize Understanding WC - Visit Discharge Discharge Condition Stable Stable Stable Ambulatory Status Ambulatory Ambulatory, Ambulatory Walker Transportation Private Auto Private Auto Private Auto Accompanied by Medication Reconcilliation completed & No provided to patient/care provider Clinical Summary of Care Provided Yes 04/03/24 10:34 Wound Care Center Nurse 3 #4 RT GREAT TOE -Foul Odor after Cleansing -Other Dressing -Primary Dressing Covered/Secured with -Other Covering #3 RT HEEL -Foul Odor after Cleansing -Primary Dressing Applied Mepilex Border -Other Dressing -Primary Dressing Covered/Secured with -Other Covering -Mepilex Border 1 -Wound Comment(s) Right -Other Treatment Response Procedure Tolerated Well Pain Scale: 0-10 Numeric Is Patient Pain Free? Yes Teaching: Wound Center Offload: Mattress, Cushion, Reposition -Person Taught -Teaching Method -Response to teaching WC - Visit Discharge Discharge Condition Stable Ambulatory Status Ambulatory, Walker Transportation Private Auto Accompanied by Medication Reconcilliation completed & provided to patient/care provider Clinical Summary of Care Provided Assessment/Plan Assessment/Plan (1) Non-pressure chronic ulcer of other part of right foot with fat layer exposed: CODE(S): L97.512 - Non-pressure chronic ulcer of other part of right foot with fat layer exposed (2) Chronic ulcer of right heel with fat layer exposed: CODE(S): L97.412 - Non-pressure chronic ulcer of right heel and midfoot with fat layer exposed (3) Acute painful diabetic polyneuropathy: CODE(S): E11.42 - Type 2 diabetes mellitus with diabetic polyneuropathy (4) Type 2 diabetes mellitus with foot ulcer: CODE(S): E11.621 - Type 2 diabetes mellitus with foot ulcer; L97.509 - Non-pressure chronic ulcer of other part of unspecified foot with unspecified severity QUALIFIERS: Diabetes mellitus custodial insulin use: with buttermaker continuous churn use Qualified Code(s): E11.621 - Type 2 diabetes mellitus with foot ulcer; L97.509 - Non-pressure chronic ulcer of other part of unspecified foot with unspecified severity; 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 Right hallux distal tuft ulceration measures 0.1 cm x 0.1 cm x 0.1 cm and right posterior lateral heel ulceration measures 0.1 cm x 0.1 cm x 0.1 cm. No signs of infection. Foam border dressing to right heel to pad and protect area. He is to change dressing daily. EpiFix graft #6 was applied to the right Hallux at visit 03/20/24. Discussed with new epithelialized skin at the hallux we will continue to refrain from further application of the EpiFix graft we will continue protecting site with dry sterile dressing. Discussed that he is starting to develop pressure ulceration at the hallux again since his return to shoe gear as he continues to curl toes down during gait. Previous offloading padding placed to the plantar side of his diabetic insert has improved the hallux however does continue to get some pressure to the distal tuft. Discussed continue supportive shoe gear with digital offloading pad in place to the plantar side of his diabetic insert to prevent hammering of the hallux which I believe is causing pressure and ulceration. Discussed going to office to supervisor opening and picking crest pad in addition to a silicone toe sleeve for the hallux for added protection and prevention of recidivism. Ulceration at hallux demonstrate pressure signs to the distal tuft of his newly epithelialized skin. Right heel demonstrates epithelialized skin. Discussed close monitoring of the newly epithelialized sites to prevent recidivism upon continued ambulation in shoe gear. He was approved for EpiFix graft for Right heel and has finished all 10 applications. He was approved for EpiFix for Right Hallux, and will continue application. Discussed continued wearing of Tubigrip compression stockings until ulcerations have healed at which time he will change to bilateral compression stocking. Discussed continuing to elevate feet at all times of rest for edema control. Discussed adequate protein intake to continue to aid in wound healing. Florentin supplementation was recommended. Discussed proper diabetic diet in addition to the stated above to ensure adequate wound healing. Patient states that his sugars have been up but not above 200. does state he does eat things that he should not though. Recent visit with PCP demonstrates increase in weight. He has continued taking the instructed supplements for his neuropathy consisting of of complex B vitamin daily, magnesium 250 mg daily, alpha lipoic acid 300 mg daily, and 500 mg glutamine supplement. Discussed continuing to take it and allow time for the nerves to continue repair. Discussed signs and symptoms of infection. Discussed with the patient if he notices redness about the wound margins that continues to spread or moves up the leg, any purulent drainage from the wound site, increasing foul odor from the wound or if he experiences fever greater than 101 degree accompanied by nausea, vomiting, chills, that these are signs of a progressing infection and he should report to the ED for IV antibiotics and further evaluation. He and his voiced understanding of this today. The following work up and care recommendations were made: Dressing: Foam border dressing to right heel to pad and protect. Dry sterile dressing right hallux to pad and protect. Offloading padding of the hallux to plantar side of diabetic insert with silicone toe sleeve vs crest padding. Will continue to wear diabetic shoes. Wash: Soap and water Tissue growth optimization: None Offload: Elevating lower extremities at rest. Vascular: DP and PT pulses are weakly palpable with adequate capillary fill time. Do not feel that vascular status is affecting wound healing. Edema: Continue elevating lower extremities at all times of rest. Continue wearing Tubigrip compression stocking. Discussed eventual change to a standard prescription compression stocking once wounds have healed. Infection: No signs of infection. Wound cultures were taken given patient's prior history of recurrent bacterial infection at the sites. Pain: May take [id number] Tylenol for discomfort Host factors: DM type II with peripheral polyneuropathy, HTN, morbid obesity, lymphedema Discussed continued padding and protecting of his ulcerative sites as stated above to discourage recidivism of his newly epithelialized skin. Discussed recheck next week to ensure sites remain closed. I answered all the patient's questions. To return to the wound healing center in 1 week or call sooner if the patient has any questions or concerns.
== END 2024-04-12 23:59 | disposition home or self-care (01) ==
LOC: WC 10:00
PROVIDERS: PCP Internal Medicine; Referring Provider Internal Medicine; Visit Provider Student in an Organized Health Care Education/Training Program
DX: E11.621 Type 2 diabetes mellitus with foot ulcer (principal); L97.412 Non-pressure chronic ulcer of right heel and midfoot with fat layer exposed; L97.512 Non-pressure chronic ulcer of other part of right foot with fat layer exposed; Z79.4 Long term (current) use of insulin; E11.42 Type 2 diabetes mellitus with diabetic polyneuropathy; R60.0 Localized edema; E66.9 Obesity, unspecified; I10 Essential (primary) hypertension; I89.0 Lymphedema, not elsewhere classified; E78.00 Pure hypercholesterolemia, unspecified; Z79.82 Long term (current) use of aspirin; Z79.85 Long-term (current) use of injectable non-insulin antidiabetic drugs; Z79.01 Long term (current) use of anticoagulants; Z96.652 Presence of left artificial knee joint
CPT/HCPCS: 11042; 15275; 29445; 99213; Q4186; G0463

== ENCOUNTER 2024-05-08 11:15 | Outpatient (RCR) | payer MEDICARE, BC, SELFPAY ==
[2024-04-13 00:19] VITALS: BP 109/90; PULSE 84; RESP 22; TEMP 36.5
[2024-04-17 09:47] VITALS: TEMP 36.7
--- NOTE | 2024-04-17 12:34 | PCM.WC.PN ---
History of Present Illness Date of Service: 04/17/24 Chief Complaint: Right heel ulcer and right hallux ulcer History of Wound: 68 year old male presents to the wound center for evaluation of his right heal ulcer. It started as a a pressure ulcer in February 2022 when he he was in TCU and it healed. It then became a blister right before his Left TKR surgery. He had his left knee replaced 07/14/22 at [facility]. 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 He also has a history of diabetes type II with peripheral polyneuropathy, HTN, lymphedema, hypercholesterolemia and PE that he is on Xerelto. Wound culture obtained on 08/30/22 which are positive for VRE, Kocuria kristinae and Corynebacterium striatum. He will completed the Linezolid. Wound culture obtained 06/20/23 which was positive for Staphylococcus pseudintermediu, Pseudomonas aeruginosa, Corynebacterium minutissiumum, and Anaerobic cocci. He was started on Levaquin and Flagyl. Foot xray 09/27/22 - Osteopenia with diffuse osteoarthritic changes. Diffuse soft tissue swelling with ossification of the distal Achilles tendon. No acute abnormality or evidence of erosive changes. Did undergo updated radiograph of the right foot 11/08/2023 with no noted changes from previous x-ray. This is a recurring ulceration to both distal medial tuft of the right hallux and posterior lateral heel. He states both sites had scabbed up and he was previously discharged however scabs have later broken down with re-ulceration. Wound care -currently applying Joelle daily and is offloading and surgical shoe to the right foot. He denies any fever, chills, nausea and vomiting. Denies further complaints. Subjective Subjective This is a 68-year-old male who presents to the wound care center for continued follow-up of right hallux distal tuft ulceration and right posterior lateral calcaneal ulceration. Patient does report history of recurring ulcerations of these 2 specific sites over the last several years. Continues doxycycline for his knee. States he did moss picker with the silicone toe cap as well as the crest pad however decided to wear both at the same time and reports the crest pad was too tight and the silicone got too wet inside creating reulceration of the hallux. Denies constitutional symptoms. Denies further complaints. Objective Data Objective Data Vital Signs: Vital Signs Temp Pulse Resp BP 98.1 F 84 22 H 109/90 H 04/17/24 09:47 04/13/24 00:19 04/13/24 00:19 04/13/24 00:19 Physical Exam Const alert, oriented x3 and no apparent distress General Appearance: cooperative HEENT normocephalic Eyes General Eye: normal appearance of both eyes Neck General: normal visual inspection Lymph Lymphatic: no lymphadenopathy noted and lymphedema Resp normal respiratory effort Cardio regular rate and regular rhythm Extremity normal capillary refill, no joint enlargement, no calf tenderness and no pedal edema Extremity Narrative: Vascular: DP and PT pulses weakly palpable. CFT less than 5 seconds to the digits. Normal temperature gradient. Hair growth is absent to digits/foot. Neurologic: Gross sensation intact. Decreased light touch sensation. Absent protective sensation tested with 5.07g [place] [employer] monofilament. Lack of protective sensation consistent with diabetic peripheral polyneuropathy Dermatologic: There is varicosities noted to the lower extremity with subsequent edema about foot and BRYAN ankle. There is full thickness ulceration to the distal tuft of the Hallux. There is a posterior lateral heel ulceration with newly epithelialized skin. No signs of infection. Musculoskeletal: Muscle strength 5 of 5 age-appropriate. Decreased range of motion of the ankle joint in dorsiflexion with the knee extended without pain or crepitus. Decreased range of motion of the first metatarsophalangeal joint without pain or crepitus. There is hammertoe deformity of digits 1 through 5. Skin no rashes or lesions noted, skin turgor normal and no jaundice Neuro moves all extremities Debridement Note Debridement Note Wound debrided: Right hallux Laterality: Right Wound Grade/Stage: Gomez stage I Type of Debridement: Excisional debridement Anesthesia Used: 5% Lidocaine Gel Depth: Down to and including healthy tissue and in the subcutaneous layer Percentage of wound debrided: 100 Instrument Used: #15 blade Tissue Removed: Fibrous, devitalized subcutaneous, biofilm, slough Severity: Fat Layer Exposed Amount of bleeding with debridement: Mild Bleeding Controlled with: Compression and gauze Patient tolerated procedure: Patient tolerated procedure well Post-Debridement Measurements and Additional Note: Post-Debridement Measurements/Treatment WC - Nurse 1 - General Ulcer Assessment Start: 04/17/24 09:47 Freq: Status: Active Protocol: NELL Activity Type Activity Date Activity User E-sign Co-sign Detail Recorded Client Recorded Date Recorded By Document 04/17/24 09:47 [id number] 04/17/24 09:52 04/17/24 09:47 - Today's Visit Information Type of service Follow-up Visit (Physician/SUPERVIS[employer] ) Arrival Mode Ambulatory, Walker Patient Identification Verified (Name & Yes ) Patient Requires Transmission-Based No Precautions Finger Stick Blood Sugar(mg/dl) (if 116 indicated): Blood Sugar Stated by Patient Vital Signs Temperature (97.8 F-99.1 F) 98.1 F Temperature Source Temporal History Since Last Visit- (Skip if this is Patient's initial visit) Have you changed medications since your No last visit? Any new allergies or adverse reactions No Had a fall/change in ADL's that may No increase risk of falls Signs or symptoms of abuse and/or No neglect since last visit Have you been in the hospital since your No last visit? Has dressing in place as prescribed Yes Has compression in place as prescribed N/A Has offloadiing in place as prescribed Yes Experienced any changes in pain level or No management Left Footwear Diabetic Shoe Right Footwear Diabetic Shoe Pain Scale: 0-10 Numeric Is Patient Pain Free? Yes - Nurse 1 - General Ulcer Measurement Start: 04/17/24 09:47 Freq: Status: Active Protocol: Activity Type Activity Date Activity User E-sign Co-sign Detail Recorded Client Recorded Date Recorded By Document 04/17/24 09:47 [id number] 04/17/24 09:52 04/17/24 09:47 Wound Center Nurse 1 #3 RT HEEL -Combined with other wound No -Current Size (cm) - Length 0 -Current Size (cm) - Width 0 -Current Size (cm) - Depth 0 -Total Square Cm 0 -Epithelialization Large 67-100% -Circular Undermining No Lower Limb Edema Present NA - Nurse 2 - General Ulcer CM Notes Start: 04/17/24 09:47 Freq: Status: Active Protocol: Activity Type Activity Date Activity User E-sign Co-sign Detail Recorded Client Recorded Date Recorded By Document 04/17/24 10:06 [facility] [id number] 04/17/24 10:19 [facility] 04/17/24 10:06 Wound Center Nurse 2 #3 RT HEEL -Post Debridement (cm) - Length 0 -Post Debridement (cm) - Width 0 -Post Debridement (cm) - Depth 0 -Total Square (Post) (cm) 0 -Area of Debridement (cm) - Length 0 -Area of Debridement (cm) - Width 0 -Total Square (Area) (cm) 0 -Wound/Ulcer Outcome Healed- Epithelialized -Bleeding Controlled with NA #4 RT GREAT TOE -Time 10:07 -Correct Patient Yes -Correct Side, Site, Position Yes -Correct Procedure Yes -Procedure Performed Yes -Type of Procedure Debridement -Clinical Debridement Subcutaneous -Tissue Removed Subcutaneous -Post Debridement (cm) - Length 0.6 -Post Debridement (cm) - Width 0.6 -Post Debridement (cm) - Depth 0.1 -Total Square (Post) (cm) 0.36 -Area of Debridement (cm) - Length 0.6 -Area of Debridement (cm) - Width 0.6 -Total Square (Area) (cm) 0.36 -Tunneling No -Undermining/Tunneling No -Circular Undermining No -Wound/Ulcer Outcome Not Healed -Ulcer Cleansing Rinsed/ Irrigated with Saline -Foul Odor after Cleansing No -Bioengineered Tissue Yes -Type of Bioengineered Tissue Epifix 18mm Disc -Expiration Date 11/11/28 -Product Lot Number [id number] -Percent Used 100 -Lot number of Saline Used [id number] -Bleeding Controlled with Pressure -Treatment Response Procedure Tolerated Well -Offloading Yes -Type of Offloading Other -Other Type of Offloading custom inserts both feet -Debridement - Subq, 1st 20sq cm No -Apply Skin Sub - 1st 25 sq cm - Feet 1 -Epifix 18mm Disc 3 Pain Scale: 0-10 Numeric Is Patient Pain Free? Yes - Nurse 3 - General Ulcer D/C NN Start: 04/17/24 09:47 Freq: Status: Active Protocol: Activity Type Activity Date Activity User E-sign Co-sign Detail Recorded Client Recorded Date Recorded By Document 04/17/24 10:32 YASMINE [id number] 04/17/24 10:33 YASMINE 04/17/24 10:32 Wound Care Center Nurse 3 #4 RT GREAT TOE -Ulcer Cleansing Rinsed/ Irrigated with Saline -Primary Dressing Covered/Secured with Dry Gauze, Secured with Tape Pain Scale: 0-10 Numeric Is Patient Pain Free? Yes WC - Visit Discharge Discharge Condition Stable Ambulatory Status Ambulatory, Walker Transportation Private Auto Medication Reconcilliation completed & Yes provided to patient/care provider Clinical Summary of Care Provided Yes Assessment/Plan Assessment/Plan (1) Non-pressure chronic ulcer of other part of right foot with fat layer exposed: CODE(S): L97.512 - Non-pressure chronic ulcer of other part of right foot with fat layer exposed (2) Chronic ulcer of right heel with fat layer exposed: CODE(S): L97.412 - Non-pressure chronic ulcer of right heel and midfoot with fat layer exposed (3) Acute painful diabetic polyneuropathy: CODE(S): E11.42 - Type 2 diabetes mellitus with diabetic polyneuropathy (4) Type 2 diabetes mellitus with foot ulcer: CODE(S): E11.621 - Type 2 diabetes mellitus with foot ulcer; L97.509 - Non-pressure chronic ulcer of other part of unspecified foot with unspecified severity QUALIFIERS: Diabetes mellitus [facility] insulin use: 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 Qualified Code(s): E11.621 - Type 2 diabetes mellitus with foot ulcer; L97.509 - Non-pressure chronic ulcer of other part of unspecified foot with unspecified severity; 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 Right hallux distal tuft ulceration measures 0.6 cm x 0.6 cm x 0.1 cm and right posterior lateral heel ulceration has healed. No signs of infection. Foam border dressing to right heel to continue to pad and protect area. He is to change dressing daily. EpiFix graft #7 was applied to the right Hallux today. Discussed that he is developing continued pressure ulceration at the hallux again since his return to shoe gear as he continues to curl toes down during gait. Previous offloading padding placed to the plantar side of his diabetic insert has improved the hallux however does continue to get some pressure to the distal tuft. Additional offloading was placed to the first metatarsal head simulating Lal's extension. Discussed continue supportive shoe gear with digital offloading pad in place to the plantar side of his diabetic insert to prevent hammering of the hallux which I believe is causing pressure and ulceration. He did moss picker the crest pad and silicone sleeve as instructed at last visit however decided upon wearing both at the same time which has also caused new ulceration at the distal tuft of the hallux. Ulceration at hallux demonstrate pressure to the distal tuft. Right heel demonstrates epithelialized skin. Discussed close monitoring of the newly epithelialized site at heel to prevent recidivism upon continued ambulation in shoe gear. Discussed possible surgical intervention for aiding in offloading of the hallux. He was approved for EpiFix graft for Right heel and has finished all 10 applications. He was approved for EpiFix for Right Hallux, and will continue application. Discussed continued wearing of Tubigrip compression stockings until ulcerations have healed at which time he will change to bilateral compression stocking. Discussed continuing to elevate feet at all times of rest for edema control. Discussed adequate protein intake to continue to aid in wound healing. Florentin supplementation was recommended. Discussed proper diabetic diet in addition to the stated above to ensure adequate wound healing. Patient states that his sugars have been up but not above 200. does state he does eat things that he should not though. Recent visit with PCP demonstrates increase in weight. He has continued taking the instructed supplements for his neuropathy consisting of of complex B vitamin daily, magnesium 250 mg daily, alpha lipoic acid 300 mg daily, and 500 mg glutamine supplement. Discussed continuing to take it and allow time for the nerves to continue repair. Discussed signs and symptoms of infection. Discussed with the patient if he notices redness about the wound margins that continues to spread or moves up the leg, any purulent drainage from the wound site, increasing foul odor from the wound or if he experiences fever greater than 101 degree accompanied by nausea, vomiting, chills, that these are signs of a progressing infection and he should report to the ED for IV antibiotics and further evaluation. He and his voiced understanding of this today. The following work up and care recommendations were made: Dressing: Foam border dressing to right heel to pad and protect. EpiFix, Adaptic touch, Steri-Strips and dry sterile dressing to hallux. Will continue offloading with diabetic inserts and Lal's extension offloading. Wash: Do not get hallux wet Tissue growth optimization: EpiFix Offload: Elevating lower extremities at rest. Vascular: DP and PT pulses are weakly palpable with adequate capillary fill time. Do not feel that vascular status is affecting wound healing. Edema: Continue elevating lower extremities at all times of rest. Continue wearing Tubigrip compression stocking. Discussed eventual change to a standard prescription compression stocking once wounds have healed. Infection: No signs of infection. Wound cultures were taken given patient's prior history of recurrent bacterial infection at the sites. Pain: May take [id number] Tylenol for discomfort Host factors: DM type II with peripheral polyneuropathy, HTN, morbid obesity, lymphedema I answered all the patient's questions. To return to the wound healing center in 1 week or call sooner if the patient has any questions or concerns.
[2024-04-24 10:55] VITALS: BP 156/91; PULSE 81; RESP 18; TEMP 36.6
--- NOTE | 2024-04-24 10:57 | PCM.WC.PN ---
History of Present Illness Date of Service: 04/24/24 Chief Complaint: Right heel ulcer and right hallux ulcer History of Wound: 68 year old male presents to the wound center for evaluation of his right heal ulcer. It started as a a pressure ulcer in February 2022 when he he was in TCU and it healed. It then became a blister right before his Left TKR surgery. He had his left knee replaced 07/14/22 at [facility]. 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 He also has a history of diabetes type II with peripheral polyneuropathy, HTN, lymphedema, hypercholesterolemia and PE that he is on Xerelto. Wound culture obtained on 08/30/22 which are positive for VRE, Kocuria kristinae and Corynebacterium striatum. He will completed the Linezolid. Wound culture obtained 06/20/23 which was positive for Staphylococcus pseudintermediu, Pseudomonas aeruginosa, Corynebacterium minutissiumum, and Anaerobic cocci. He was started on Levaquin and Flagyl. Foot xray 09/27/22 - Osteopenia with diffuse osteoarthritic changes. Diffuse soft tissue swelling with ossification of the distal Achilles tendon. No acute abnormality or evidence of erosive changes. Did undergo updated radiograph of the right foot 11/08/2023 with no noted changes from previous x-ray. This is a recurring ulceration to both distal medial tuft of the right hallux and posterior lateral heel. He states both sites had scabbed up and he was previously discharged however scabs have later broken down with re-ulceration. Wound care -currently applying Joelle daily and is offloading and surgical shoe to the right foot. He denies any fever, chills, nausea and vomiting. Denies further complaints. Subjective Subjective This is a 68-year-old male who presents to the wound care center for continued follow-up of right hallux distal tuft ulceration and right posterior lateral calcaneal ulceration. Patient does report history of recurring ulcerations of these 2 specific sites over the last several years. Continues doxycycline for his knee. Has not reapplied previous offloading due to return to grafting product. He is changing outer dressing as needed. Denies constitutional symptoms. Denies further complaints. Objective Data Objective Data Vital Signs: Vital Signs Temp Pulse Resp BP 98.1 F 84 22 H 109/90 H 04/17/24 09:47 04/13/24 00:19 04/13/24 00:19 04/13/24 00:19 Physical Exam Const alert, oriented x3 and no apparent distress General Appearance: cooperative HEENT normocephalic Eyes General Eye: normal appearance of both eyes Neck General: normal visual inspection Lymph Lymphatic: no lymphadenopathy noted and lymphedema Resp normal respiratory effort Cardio regular rate and regular rhythm Extremity normal capillary refill, no joint enlargement, no calf tenderness and no pedal edema Extremity Narrative: Vascular: DP and PT pulses weakly palpable. CFT less than 5 seconds to the digits. Normal temperature gradient. Hair growth is absent to digits/foot. Neurologic: Gross sensation intact. Decreased light touch sensation. Absent protective sensation tested with 5.07g [place] Zen monofilament. Lack of protective sensation consistent with diabetic peripheral polyneuropathy Dermatologic: There is varicosities noted to the lower extremity with subsequent edema about foot and BRYAN ankle. There is full thickness ulceration to the distal tuft of the Hallux. There is a posterior lateral heel ulceration with newly epithelialized skin. No signs of infection. Musculoskeletal: Muscle strength 5 of 5 age-appropriate. Decreased range of motion of the ankle joint in dorsiflexion with the knee extended without pain or crepitus. Decreased range of motion of the first metatarsophalangeal joint without pain or crepitus. There is hammertoe deformity of digits 1 through 5. Skin no rashes or lesions noted, skin turgor normal and no jaundice Neuro moves all extremities Debridement Note Debridement Note Wound debrided: Right hallux Laterality: Right Wound Grade/Stage: Gomez stage I Type of Debridement: Excisional debridement Anesthesia Used: 5% Lidocaine Gel Depth: Down to and including healthy tissue and in the subcutaneous layer Percentage of wound debrided: 100 Instrument Used: #15 blade Tissue Removed: Fibrous, devitalized subcutaneous, biofilm, slough Severity: Fat Layer Exposed Amount of bleeding with debridement: Mild Bleeding Controlled with: Compression and gauze Patient tolerated procedure: Patient tolerated procedure well Post-Debridement Measurements and Additional Note: Post-Debridement Measurements/Treatment LAM - Nurse 1 - General Ulcer Assessment Start: 04/17/24 09:47 Freq: Status: Active Protocol: NELL Activity Type Activity Date Activity User E-sign Co-sign Detail Recorded Client Recorded Date Recorded By Document 04/17/24 09:47 JF [id number] 04/17/24 09:52 04/17/24 09:47 - Today's Visit Information Type of service Follow-up Visit (Physician/BOXING TRAINER ) Arrival Mode Ambulatory, Walker Patient Identification Verified (Name & Yes ) Patient Requires Transmission-Based No Precautions Finger Stick Blood Sugar(mg/dl) (if 116 indicated): Blood Sugar Stated by Patient Vital Signs Temperature (97.8 F-99.1 F) 98.1 F Temperature Source Temporal History Since Last Visit- (Skip if this is Patient's initial visit) Have you changed medications since your No last visit? Any new allergies or adverse reactions No Had a fall/change in ADL's that may No increase risk of falls Signs or symptoms of abuse and/or No neglect since last visit Have you been in the hospital since your No last visit? Has dressing in place as prescribed Yes Has compression in place as prescribed N/A Has offloadiing in place as prescribed Yes Experienced any changes in pain level or No management Left Footwear Diabetic Shoe Right Footwear Diabetic Shoe Pain Scale: 0-10 Numeric Is Patient Pain Free? Yes - Nurse 1 - General Ulcer Measurement Start: 04/17/24 09:47 Freq: Status: Active Protocol: Activity Type Activity Date Activity User E-sign Co-sign Detail Recorded Client Recorded Date Recorded By Document 04/17/24 09:47 [id number] 04/17/24 09:52 04/17/24 09:47 Wound Center Nurse 1 #3 RT HEEL -Combined with other wound No -Current Size (cm) - Length 0 -Current Size (cm) - Width 0 -Current Size (cm) - Depth 0 -Total Square Cm 0 -Epithelialization Large 67-100% -Circular Undermining No Lower Limb Edema Present NA - Nurse 2 - General Ulcer CM Notes Start: 04/17/24 09:47 Freq: Status: Active Protocol: Activity Type Activity Date Activity User E-sign Co-sign Detail Recorded Client Recorded Date Recorded By Document 04/17/24 10:06 [facility] [id number] 04/17/24 10:19 [facility] 04/17/24 10:06 Wound Center Nurse 2 #3 RT HEEL -Post Debridement (cm) - Length 0 -Post Debridement (cm) - Width 0 -Post Debridement (cm) - Depth 0 -Total Square (Post) (cm) 0 -Area of Debridement (cm) - Length 0 -Area of Debridement (cm) - Width 0 -Total Square (Area) (cm) 0 -Wound/Ulcer Outcome Healed- Epithelialized -Bleeding Controlled with NA #4 RT GREAT TOE -Time 10:07 -Correct Patient Yes -Correct Side, Site, Position Yes -Correct Procedure Yes -Procedure Performed Yes -Type of Procedure Debridement -Clinical Debridement Subcutaneous -Tissue Removed Subcutaneous -Post Debridement (cm) - Length 0.6 -Post Debridement (cm) - Width 0.6 -Post Debridement (cm) - Depth 0.1 -Total Square (Post) (cm) 0.36 -Area of Debridement (cm) - Length 0.6 -Area of Debridement (cm) - Width 0.6 -Total Square (Area) (cm) 0.36 -Tunneling No -Undermining/Tunneling No -Circular Undermining No -Wound/Ulcer Outcome Not Healed -Ulcer Cleansing Rinsed/ Irrigated with Saline -Foul Odor after Cleansing No -Bioengineered Tissue Yes -Type of Bioengineered Tissue Epifix 18mm Disc -Expiration Date 11/11/28 -Product Lot Number [id number] -Percent Used 100 -Lot number of Saline Used [id number] -Bleeding Controlled with Pressure -Treatment Response Procedure Tolerated Well -Offloading Yes -Type of Offloading Other -Other Type of Offloading custom inserts both feet -Debridement - Subq, 1st 20sq cm No -Apply Skin Sub - 1st 25 sq cm - Feet 1 -Epifix 18mm Disc 3 Pain Scale: 0-10 Numeric Is Patient Pain Free? Yes - Nurse 3 - General Ulcer D/C NN Start: 04/17/24 09:47 Freq: Status: Active Protocol: Activity Type Activity Date Activity User E-sign Co-sign Detail Recorded Client Recorded Date Recorded By Document 04/17/24 10:32 YASMINE [id number] 04/17/24 10:33 YASMINE 04/17/24 10:32 Wound Care Center Nurse 3 #4 RT GREAT TOE -Ulcer Cleansing Rinsed/ Irrigated with Saline -Primary Dressing Covered/Secured with Dry Gauze, Secured with Tape Pain Scale: 0-10 Numeric Is Patient Pain Free? Yes - Visit Discharge Discharge Condition Stable Ambulatory Status Ambulatory, Walker Transportation Private Auto Medication Reconcilliation completed & Yes provided to patient/care provider Clinical Summary of Care Provided Yes Assessment/Plan Assessment/Plan (1) Non-pressure chronic ulcer of other part of right foot with fat layer exposed: CODE(S): L97.512 - Non-pressure chronic ulcer of other part of right foot with fat layer exposed (2) Chronic ulcer of right heel with fat layer exposed: CODE(S): L97.412 - Non-pressure chronic ulcer of right heel and midfoot with fat layer exposed (3) Acute painful diabetic polyneuropathy: CODE(S): E11.42 - Type 2 diabetes mellitus with diabetic polyneuropathy (4) Type 2 diabetes mellitus with foot ulcer: CODE(S): E11.621 - Type 2 diabetes mellitus with foot ulcer; L97.509 - Non-pressure chronic ulcer of other part of unspecified foot with unspecified severity QUALIFIERS: Diabetes mellitus terminal gauger supervisor insulin use: with terminal gauger supervisor use Qualified Code(s): E11.621 - Type 2 diabetes mellitus with foot ulcer; L97.509 - Non-pressure chronic ulcer of other part of unspecified foot with unspecified severity; Z79.4 - senior care (current) use of insulin (5) Lymphedema: CODE(S): I89.0 - Lymphedema, not elsewhere classified (6) Hypertension: CODE(S): I10 - Essential (primary) hypertension QUALIFIERS: Hypertension type: primary hypertension Qualified Code(s): I10 - Essential (primary) hypertension (7) Debility: CODE(S): R53.81 - Other malaise (8) Lower extremity edema: CODE(S): R60.0 - Localized edema PLAN: Plan Patient seen and evaluated Pre-debridement: Hallux 0.7cm x 0.6 cm x 0.1cm ; Right Heel healed Ulceration did undergo debridement as noted in the clinical panel above. Right hallux distal tuft ulceration measures 0.8 cm x 0.7 cm x 0.1 cm and right posterior lateral heel ulceration has healed. No signs of infection. Foam border dressing to right heel to continue to pad and protect area. He is to change dressing daily. EpiFix graft #8 was applied to the right Hallux today. Discussed that he is developing continued pressure ulceration at the hallux again since his return to shoe gear as he continues to curl toes down during gait. Previous offloading padding remains in place to the plantar side of his diabetic insert. Site did increase in size slightly due to continued pressure. Discussed continue supportive shoe gear with digital offloading pad in place to the plantar side of his diabetic insert to prevent hammering of the hallux which I believe is causing pressure and ulceration. Will attempt offloading with crest pad once site has healed. Ulceration at hallux demonstrate pressure to the distal tuft. Right heel demonstrates epithelialized skin. Discussed close monitoring of the newly epithelialized site at heel to prevent recidivism upon continued ambulation in shoe gear. Discussed possible surgical intervention for aiding in offloading of the hallux. He was approved for EpiFix graft for Right heel and has finished all 10 applications. He was approved for EpiFix for Right Hallux, and will continue application. Discussed continued wearing of Tubigrip compression stockings until ulcerations have healed at which time he will change to bilateral compression stocking. Discussed continuing to elevate feet at all times of rest for edema control. Discussed adequate protein intake to continue to aid in wound healing. Florentin supplementation was recommended. Discussed proper diabetic diet in addition to the stated above to ensure adequate wound healing. Patient states that his sugars have been up but not above 200. does state he does eat things that he should not though. Recent visit with PCP demonstrates increase in weight. He has continued taking the instructed supplements for his neuropathy consisting of of complex B vitamin daily, magnesium 250 mg daily, alpha lipoic acid 300 mg daily, and 500 mg glutamine supplement. Discussed continuing to take it and allow time for the nerves to continue repair. Discussed signs and symptoms of infection. Discussed with the patient if he notices redness about the wound margins that continues to spread or moves up the leg, any purulent drainage from the wound site, increasing foul odor from the wound or if he experiences fever greater than 101 degree accompanied by nausea, vomiting, chills, that these are signs of a progressing infection and he should report to the ED for IV antibiotics and further evaluation. He and his voiced understanding of this today. The following work up and care recommendations were made: Dressing: Foam border dressing to right heel to pad and protect. EpiFix, Adaptic touch, Steri-Strips and dry sterile dressing to hallux. Will continue offloading with diabetic inserts and Lal's extension offloading. Wash: Do not get hallux wet Tissue growth optimization: EpiFix Offload: Elevating lower extremities at rest. Vascular: DP and PT pulses are weakly palpable with adequate capillary fill time. Do not feel that vascular status is affecting wound healing. Edema: Continue elevating lower extremities at all times of rest. Continue wearing Tubigrip compression stocking. Discussed eventual change to a standard prescription compression stocking once wounds have healed. Infection: No signs of infection. Wound cultures were taken given patient's prior history of recurrent bacterial infection at the sites. Pain: May take [id number] Tylenol for discomfort Host factors: DM type II with peripheral polyneuropathy, HTN, morbid obesity, lymphedema I answered all the patient's questions. To return to the wound healing center in 1 week or call sooner if the patient has any questions or concerns.
[2024-05-08 11:07] VITALS: BP 150/73; PULSE 77; RESP 18; TEMP 36.4
--- NOTE | 2024-05-08 12:34 | PCM.WC.PN ---
History of Present Illness Date of Service: 05/08/24 Chief Complaint: Right heel ulcer and right hallux ulcer History of Wound: 68 year old male presents to the wound center for evaluation of his right heal ulcer. It started as a a pressure ulcer in February 2022 when he he was in TCU and it healed. It then became a blister right before his Left TKR surgery. He had his left knee replaced 07/14/22 at [facility]. 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 He also has a history of diabetes type II with peripheral polyneuropathy, HTN, lymphedema, hypercholesterolemia and PE that he is on Xerelto. Wound culture obtained on 08/30/22 which are positive for VRE, Kocuria kristinae and Corynebacterium striatum. He will completed the Linezolid. Wound culture obtained 06/20/23 which was positive for Staphylococcus pseudintermediu, Pseudomonas aeruginosa, Corynebacterium minutissiumum, and Anaerobic cocci. He was started on Levaquin and Flagyl. Foot xray 09/27/22 - Osteopenia with diffuse osteoarthritic changes. Diffuse soft tissue swelling with ossification of the distal Achilles tendon. No acute abnormality or evidence of erosive changes. Did undergo updated radiograph of the right foot 11/08/2023 with no noted changes from previous x-ray. This is a recurring ulceration to both distal medial tuft of the right hallux and posterior lateral heel. He states both sites had scabbed up and he was previously discharged however scabs have later broken down with re-ulceration. Wound care -currently applying Joelle daily and is offloading and surgical shoe to the right foot. He denies any fever, chills, nausea and vomiting. Denies further complaints. Subjective Subjective This is a 68-year-old male who presents to the wound care center for continued follow-up of right hallux distal tuft ulceration and right posterior lateral calcaneal ulceration. Patient does report history of recurring ulcerations of these 2 specific sites over the last several years. Continues doxycycline for his knee. Graft remains in place to Hallux. continues to change dressing as needed. Denies constitutional symptoms. Denies further complaints. Objective Data Objective Data Vital Signs: Vital Signs Temp Pulse Resp BP 97.6 F L 77 18 150/73 H 05/08/24 11:07 05/08/24 11:07 05/08/24 11:07 05/08/24 11:07 Physical Exam Const alert, oriented x3 and no apparent distress General Appearance: cooperative HEENT normocephalic Eyes General Eye: normal appearance of both eyes Neck General: normal visual inspection Lymph Lymphatic: no lymphadenopathy noted and lymphedema Resp normal respiratory effort Cardio regular rate and regular rhythm Extremity normal capillary refill, no joint enlargement, no calf tenderness and no pedal edema Extremity Narrative: Vascular: DP and PT pulses weakly palpable. CFT less than 5 seconds to the digits. Normal temperature gradient. Hair growth is absent to digits/foot. Neurologic: Gross sensation intact. Decreased light touch sensation. Absent protective sensation tested with 5.07g Sawyer Zen monofilament. Lack of protective sensation consistent with diabetic peripheral polyneuropathy Dermatologic: There is varicosities noted to the lower extremity with subsequent edema about foot and LIANNA ankle. There is full thickness ulceration to the distal tuft of the Hallux, which is improved with new epithelialized skin. There is a posterior lateral heel ulceration with epithelialized skin. No signs of infection. Musculoskeletal: Muscle strength 5 of 5 age-appropriate. Decreased range of motion of the ankle joint in dorsiflexion with the knee extended without pain or crepitus. Decreased range of motion of the first metatarsophalangeal joint without pain or crepitus. There is hammertoe deformity of digits 1 through 5. Skin no rashes or lesions noted, skin turgor normal and no jaundice Neuro moves all extremities Debridement Note Debridement Note Wound debrided: Right hallux Laterality: Right Wound Grade/Stage: Gomez stage I Type of Debridement: Excisional debridement Anesthesia Used: 5% Lidocaine Gel Depth: Down to and including healthy tissue Percentage of wound debrided: 100 Instrument Used: #15 blade Tissue Removed: Fibrous, devitalized subcutaneous, biofilm, slough Severity: Fat Layer Exposed Amount of bleeding with debridement: Mild Bleeding Controlled with: Compression and gauze Patient tolerated procedure: Patient tolerated procedure well Post-Debridement Measurements and Additional Note: Post-Debridement Measurements/Treatment LAM - Nurse 1 - General Ulcer Assessment Start: 04/17/24 09:47 Freq: Status: Active Protocol: NELL Activity Type Activity Date Activity User E-sign Co-sign Detail Recorded Client Recorded Date Recorded By Document 04/17/24 09:47 JF [id number] 04/17/24 09:52 JF Document 04/24/24 10:55 DL [id number] 04/24/24 11:05 DL Document 05/08/24 11:07 DL [id number] 05/08/24 11:21 DL 04/17/24 04/24/24 05/08/24 09:47 10:55 11:07 - Today's Visit Information Type of service Follow-up Visit Follow-up Visit Follow-up Visit (Physician/PAPER AND PULP MILL WORKER (Physician/PAPER AND PULP MILL WORKER (Physician/PAPER AND PULP MILL WORKER ) ) ) Arrival Mode Ambulatory, Ambulatory Walker Walker Transfer Assistance None None Patient Identification Verified (Name & Yes Yes Yes ) Patient Requires Transmission-Based No No No Precautions Finger Stick Blood Sugar(mg/dl) (if 116 indicated): Blood Sugar Stated by Patient Vital Signs Temperature (97.8 F-99.1 F) 98.1 F 97.9 F 97.6 F L Temperature Source Temporal Temporal Temporal Pulse Rate (60-100) 81 77 Pulse Location Monitor Monitor Respiratory Rate (12-18) 18 18 Respiratory rate source Observation Blood Pressure (90/60-120/80) 156/91 H 150/73 H Blood Pressure Mean (mm Hg) 112 98 Source Monitor Monitor History Since Last Visit- (Skip if this is Patient's initial visit) Have you changed medications since your No No No last visit? Any new allergies or adverse reactions No No Had a fall/change in ADL's that may No No No increase risk of falls Signs or symptoms of abuse and/or No No No neglect since last visit Have you been in the hospital since your No No No last visit? Has dressing in place as prescribed Yes Yes Yes Has compression in place as prescribed N/A Yes No Has offloadiing in place as prescribed Yes Yes No Experienced any changes in pain level or No No No management Left Footwear Diabetic Shoe Right Footwear Diabetic Shoe Pain Scale: 0-10 Numeric Is Patient Pain Free? Yes Yes Yes - Nurse 1 - General Ulcer Measurement Start: 04/17/24 09:47 Freq: Status: Active Protocol: Activity Type Activity Date Activity User E-sign Co-sign Detail Recorded Client Recorded Date Recorded By Document 04/17/24 09:47 YASMINE [id number] 04/17/24 09:52 Document 04/24/24 10:55 DL [id number] 04/24/24 11:05 DL Document 05/08/24 11:07 DL [id number] 05/08/24 11:21 DL 04/17/24 04/24/24 05/08/24 09:47 10:55 11:07 Wound Center Nurse 1 #3 RT HEEL -Combined with other wound No -Current Size (cm) - Length 0 -Current Size (cm) - Width 0 -Current Size (cm) - Depth 0 -Total Square Cm 0 -Epithelialization Large 67-100% -Circular Undermining No #4 RT GREAT TOE -Combined with other wound No -Current Size (cm) - Length 0.8 0.1 -Current Size (cm) - Width 0.6 0.1 -Current Size (cm) - Depth 0.1 0.1 -Total Square Cm 0.48 0.01 -Photo Taken Yes -Tunneling No -Undermining/Tunneling No -Circular Undermining No -Exudate Amt None Present Medium -Exudate Type Serosanguineous -Wound Margin Thickened Distinct, Outline Attached -Granulation Amt Small (1-33%) Medium (34-66%) -Granulation Quality [place] -Slough/Fibrin Yes -Necrosis Amt Medium (34-66%) Medium (34-66%) -Necrotic Tissue Type Eschar Adherent Slough -Structure Exposed N/A -Texture (Lianna-wound Skin Appearance) Scarring Assessed, Scarring -Moisture (Lianna-wound Skin Appearance) Dry/Scaly Assessed -Color (Lianna-wound Skin Appearance) No Abnormality Assessed -Temperature (Lianna-wound Skin No Abnormality No Abnormality Appearance) (Pt Warm) (Pt Warm) -Tenderness on Palpation (Lianna-wound No Skin Appearance) -Ulcer Cleansing Soap and Water Wound Cleanser -Foul Odor after Cleansing No No -Anesthetic Used 5% Lidocaine 5% Lidocaine Gel Gel Lower Limb Edema Present NA Yes Right Calf (cm) 51 Right Ankle (cm) 31.5 WC - Nurse 2 - General Ulcer CM Notes Start: 04/17/24 09:47 Freq: Status: Active Protocol: Activity Type Activity Date Activity User E-sign Co-sign Detail Recorded Client Recorded Date Recorded By Document 04/17/24 10:06 [facility] [id number] 04/17/24 10:19 BM Document 04/24/24 11:19 [facility] [id number] 04/24/24 11:27 BMF Document 05/08/24 11:29 [facility] [id number] 05/08/24 11:42 [facility] 04/17/24 04/24/24 05/08/24 10:06 11:19 11:29 Wound Center Nurse 2 #3 RT HEEL -Post Debridement (cm) - Length 0 -Post Debridement (cm) - Width 0 -Post Debridement (cm) - Depth 0 -Total Square (Post) (cm) 0 -Area of Debridement (cm) - Length 0 -Area of Debridement (cm) - Width 0 -Total Square (Area) (cm) 0 -Wound/Ulcer Outcome Healed- Epithelialized -Bleeding Controlled with NA #4 RT GREAT TOE -Time 10:07 11:19 11:33 -Correct Patient Yes Yes Yes -Correct Side, Site, Position Yes Yes Yes -Correct Procedure Yes Yes Yes -Procedure Performed Yes Yes Yes -Type of Procedure Debridement Debridement Debridement -Clinical Debridement Subcutaneous Subcutaneous Subcutaneous -Tissue Removed Subcutaneous Subcutaneous Subcutaneous -Post Debridement (cm) - Length 0.6 0.8 0.1 -Post Debridement (cm) - Width 0.6 0.7 0.1 -Post Debridement (cm) - Depth 0.1 0.1 0.1 -Total Square (Post) (cm) 0.36 0.56 0.01 -Area of Debridement (cm) - Length 0.6 0.8 0.1 -Area of Debridement (cm) - Width 0.6 0.7 0.1 -Total Square (Area) (cm) 0.36 0.56 0.01 -Tunneling No No No -Undermining/Tunneling No No No -Circular Undermining No No No -Wound/Ulcer Outcome Not Healed Not Healed Not Healed -Ulcer Cleansing Rinsed/ Rinsed/ Rinsed/ Irrigated with Irrigated with Irrigated with Saline Saline Saline -Foul Odor after Cleansing No No No -Bioengineered Tissue Yes Yes No -Type of Bioengineered Tissue Epifix 18mm Epifix 18mm Disc Disc -Expiration Date 11/11/28 11/11/28 -Product Lot Number [id number] -Percent Used 100 100 -Lot number of Saline Used [id number] -Bleeding Controlled with Pressure Pressure Pressure -Treatment Response Procedure Procedure Procedure Tolerated Well Tolerated Well Tolerated Well -Offloading Yes -Type of Offloading Other Other -Other Type of Offloading custom inserts custom inserts both feet -Assistive Device(s) Walker -Debridement - Subq, 1st 20sq cm No No Yes -Apply Skin Sub - 1st 25 sq cm - Feet 1 1 -Epifix 18mm Disc 3 3 Pain Scale: 0-10 Numeric Is Patient Pain Free? Yes Yes Yes - Nurse 3 - General Ulcer D/C NN Start: 04/17/24 09:47 Freq: Status: Active Protocol: Activity Type Activity Date Activity User E-sign Co-sign Detail Recorded Client Recorded Date Recorded By Document 04/17/24 10:32 JF [id number] 04/17/24 10:33 JF Document 04/24/24 11:44 DL [id number] 04/24/24 11:44 DL Document 05/08/24 11:51 RB [id number] 05/08/24 11:52 RB 04/17/24 04/24/24 05/08/24 10:32 11:44 11:51 Wound Care Center Nurse 3 #4 RT GREAT TOE -Ulcer Cleansing Rinsed/ Irrigated with Saline -Foul Odor after Cleansing No -Other Dressing Epifix -Primary Dressing Covered/Secured with Dry Gauze, Dry Gauze & Dry Gauze,Dry Secured with Roll Gauze, Gauze & Roll Tape Secured with Gauze,Secured Tape with Tape -Other Covering Padding per Dr. Dasilva Treatment Response Procedure Tolerated Well Pain Scale: 0-10 Numeric Is Patient Pain Free? Yes Yes Yes - Visit Discharge Discharge Condition Stable Stable Stable Ambulatory Status Ambulatory, Ambulatory, Ambulatory, Walker Walker Walker Transportation Private Auto Private Auto Private Auto Medication Reconcilliation completed & Yes No provided to patient/care provider Clinical Summary of Care Provided Yes Yes Assessment/Plan Assessment/Plan (1) Non-pressure chronic ulcer of other part of right foot with fat layer exposed: CODE(S): L97.512 - Non-pressure chronic ulcer of other part of right foot with fat layer exposed (2) Chronic ulcer of right heel with fat layer exposed: CODE(S): L97.412 - Non-pressure chronic ulcer of right heel and midfoot with fat layer exposed (3) Acute painful diabetic polyneuropathy: CODE(S): E11.42 - Type 2 diabetes mellitus with diabetic polyneuropathy (4) Type 2 diabetes mellitus with foot ulcer: CODE(S): E11.621 - Type 2 diabetes mellitus with foot ulcer; L97.509 - Non-pressure chronic ulcer of other part of unspecified foot with unspecified severity QUALIFIERS: Diabetes mellitus penitentiary insulin use: with penitentiary use Qualified Code(s): E11.621 - Type 2 diabetes mellitus with foot ulcer; L97.509 - Non-pressure chronic ulcer of other part of unspecified foot with unspecified severity; Z79.4 - residential (current) use of insulin (5) Lymphedema: CODE(S): I89.0 - Lymphedema, not elsewhere classified (6) Hypertension: CODE(S): I10 - Essential (primary) hypertension QUALIFIERS: Hypertension type: primary hypertension Qualified Code(s): I10 - Essential (primary) hypertension (7) Debility: CODE(S): R53.81 - Other malaise (8) Lower extremity edema: CODE(S): R60.0 - Localized edema PLAN: Plan Patient seen and evaluated Pre-debridement: Hallux 0.1cm x 0.1 cm x 0.1cm ; Right Heel healed Ulceration did undergo debridement as noted in the clinical panel above. Right hallux distal tuft ulceration measures 0.1 cm x 0.1 cm x 0.1 cm and right posterior lateral heel ulceration remains healed. No signs of infection. Foam border dressing to right heel to continue to pad and protect area. He is to change dressing daily. EpiFix graft #8 was applied to the right Hallux 05/01/24. Protective dressing placed to the right hallux today over newly epithelializing skin. Discussed that he is developing continued pressure ulceration at the hallux again since his return to shoe gear as he continues to curl toes down during gait. Previous offloading padding remains in place to the plantar side of his diabetic insert. Site did decrease in size today vs previous visit but remains at risk due to continued pressure. Discussed continue supportive shoe gear with digital offloading pad in place to the plantar side of his diabetic insert to prevent hammering of the hallux which I believe is causing pressure and ulceration. Will attempt offloading with crest pad once site has healed. Ulceration at hallux demonstrate pressure to the distal tuft. Right heel demonstrates epithelialized skin. Discussed close monitoring of the newly epithelialized site at heel to prevent recidivism upon continued ambulation in shoe gear. Discussed possible surgical intervention for aiding in offloading of the hallux. He was approved for EpiFix graft for Right heel and has finished all 10 applications. He was approved for EpiFix for Right Hallux, and will continue application. Discussed continued wearing of Tubigrip compression stockings until ulcerations have healed at which time he will change to bilateral compression stocking. Discussed continuing to elevate feet at all times of rest for edema control. Discussed adequate protein intake to continue to aid in wound healing. Florentin supplementation was recommended. Discussed proper diabetic diet in addition to the stated above to ensure adequate wound healing. Patient states that his sugars have been up but not above 200. does state he does eat things that he should not though. Recent visit with PCP demonstrates increase in weight. He has continued taking the instructed supplements for his neuropathy consisting of of complex B vitamin daily, magnesium 250 mg daily, alpha lipoic acid 300 mg daily, and 500 mg glutamine supplement. Discussed continuing to take it and allow time for the nerves to continue repair. Discussed signs and symptoms of infection. Discussed with the patient if he notices redness about the wound margins that continues to spread or moves up the leg, any purulent drainage from the wound site, increasing foul odor from the wound or if he experiences fever greater than 101 degree accompanied by nausea, vomiting, chills, that these are signs of a progressing infection and he should report to the ED for IV antibiotics and further evaluation. He and his voiced understanding of this today. The following work up and care recommendations were made: Dressing: Foam border dressing to right heel to pad and protect. Protective dry sterile dressing to hallux. Will continue offloading with diabetic inserts and Lal's extension offloading. Wash: Soap and water Tissue growth optimization: None Offload: Elevating lower extremities at rest. Vascular: DP and PT pulses are weakly palpable with adequate capillary fill time. Do not feel that vascular status is affecting wound healing. Edema: Continue elevating lower extremities at all times of rest. Continue wearing Tubigrip compression stocking. Discussed eventual change to a standard prescription compression stocking once wounds have healed. Infection: No signs of infection. Wound cultures were taken given patient's prior history of recurrent bacterial infection at the sites. Pain: May take [id number] Tylenol for discomfort Host factors: DM type II with peripheral polyneuropathy, HTN, morbid obesity, lymphedema Discussed check next week and if site is healed he may follow up as needed. I answered all the patient's questions. To return to the wound healing center in 1 week or call sooner if the patient has any questions or concerns.
--- NOTE | 2024-05-09 12:10 | WC ---
PHOTO RIGHT GREAT TOE 05/08/24
== END 2024-05-12 23:59 | disposition home or self-care (01) ==
LOC: WC 11:15
PROVIDERS: PCP Internal Medicine; Referring Provider Internal Medicine; Visit Provider Student in an Organized Health Care Education/Training Program
DX: E11.621 Type 2 diabetes mellitus with foot ulcer (principal); L97.512 Non-pressure chronic ulcer of other part of right foot with fat layer exposed; E11.42 Type 2 diabetes mellitus with diabetic polyneuropathy; Z79.4 Long term (current) use of insulin; I10 Essential (primary) hypertension; E78.00 Pure hypercholesterolemia, unspecified; R53.81 Other malaise; I89.0 Lymphedema, not elsewhere classified; Z79.82 Long term (current) use of aspirin; Z79.01 Long term (current) use of anticoagulants; Z79.85 Long-term (current) use of injectable non-insulin antidiabetic drugs; Z79.899 Other long term (current) drug therapy; Z96.652 Presence of left artificial knee joint; Z86.711 Personal history of pulmonary embolism; R60.0 Localized edema
CPT/HCPCS: 11042; 15275; Q4186

== ENCOUNTER 2024-06-12 11:15 | Outpatient (RCR) | payer MEDICARE, BC, SELFPAY ==
[2024-05-13 00:10] VITALS: BP 109/90; PULSE 84; RESP 22; TEMP 36.5
[2024-05-15 11:03] VITALS: BP 142/78; PULSE 80; RESP 18; TEMP 36.2
--- NOTE | 2024-05-15 18:49 | PN.PCM_ITS ---
History of Present Illness Date of Service: 05/15/24 Chief Complaint: Right heel ulcer and right hallux ulcer History of Wound: 68 year old male presents to the wound center for evaluation of his right heal ulcer. It started as a a pressure ulcer in February 2022 when he he was in TCU and it healed. It then became a blister right before his Left TKR surgery. He had his left knee replaced 07/14/22 at [facility]. 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 He also has a history of diabetes type II with peripheral polyneuropathy, HTN, lymphedema, hypercholesterolemia and PE that he is on Xerelto. Wound culture obtained on 08/30/22 which are positive for VRE, Kocuria kristinae and Corynebacterium striatum. He will completed the Linezolid. Wound culture obtained 06/20/23 which was positive for Staphylococcus pseudintermediu, Pseudomonas aeruginosa, Corynebacterium minutissiumum, and Anaerobic cocci. He was started on Levaquin and Flagyl. Foot xray 09/27/22 - Osteopenia with diffuse osteoarthritic changes. Diffuse soft tissue swelling with ossification of the distal Achilles tendon. No acute abnormality or evidence of erosive changes. Did undergo updated radiograph of the right foot 11/08/2023 with no noted changes from previous x-ray. This is a recurring ulceration to both distal medial tuft of the right hallux and posterior lateral heel. He states both sites had scabbed up and he was previously discharged however scabs have later broken down with re-ulceration. Wound care -currently applying Joelle daily and is offloading and surgical shoe to the right foot. He denies any fever, chills, nausea and vomiting. Denies further complaints. Subjective Subjective This is a 68-year-old male who presents to the wound care center for continued follow-up of right hallux distal tuft ulceration and right posterior lateral calcaneal ulceration. Patient does report history of recurring ulcerations of these 2 specific sites over the last several years. Continues doxycycline for his knee. Continues to offload Hallux site. Continues wearing offloading foam boot in bed. continues to change dressing as needed. Denies constitutional symptoms. Denies further complaints. Objective Data Objective Data Vital Signs: Vital Signs Temp Pulse Resp BP O2 Del Method 97.1 F L 80 18 142/78 H Room Air 05/15/24 11:03 05/15/24 11:03 05/15/24 11:03 05/15/24 11:03 05/15/24 11:03 Oxygen Delivery Method Room Air Physical Exam Const alert, oriented x3 and no apparent distress General Appearance: cooperative HEENT normocephalic Eyes General Eye: normal appearance of both eyes Neck General: normal visual inspection Lymph Lymphatic: no lymphadenopathy noted and no lymphedema noted Resp normal respiratory effort Cardio regular rate and regular rhythm Extremity normal capillary refill, no calf tenderness and no pedal edema Extremity Narrative: Vascular: DP and PT pulses weakly palpable. CFT less than 5 seconds to the digits. Normal temperature gradient. Hair growth is absent to digits/foot. Neurologic: Gross sensation intact. Decreased light touch sensation. Absent protective sensation tested with 5.07g [place] Zen monofilament. Lack of protective sensation consistent with diabetic peripheral polyneuropathy Dermatologic: There is varicosities noted to the lower extremity with subsequent edema about foot and LIANNA ankle. There is full thickness ulceration to the distal tuft of the Hallux, which is improved with epithelialized skin. There is a posterior lateral heel ulceration with epithelialized skin and healing noted. No signs of infection. Musculoskeletal: Muscle strength 5 of 5 age-appropriate. Decreased range of motion of the ankle joint in dorsiflexion with the knee extended without pain or crepitus. Decreased range of motion of the first metatarsophalangeal joint without pain or crepitus. There is hammertoe deformity of digits 1 through 5. 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 Any new allergies or adverse reactions No Had a fall/change in ADL's that may No increase risk of falls Signs or symptoms of abuse and/or No neglect since last visit Have you been in the hospital since your No last visit? Has dressing in place as prescribed Yes Has compression in place as prescribed Yes Has offloadiing in place as prescribed N/A Experienced any changes in pain level or No management Left Footwear Regular Shoe Right Footwear Regular Shoe Pain Scale: 0-10 Numeric Is Patient Pain Free? Yes WC - Nurse 1 - General Ulcer Measurement Start: 05/15/24 11:03 Freq: Status: Active Protocol: Activity Type Activity Date Activity User E-sign Co-sign Detail Recorded Client Recorded Date Recorded By Document 05/15/24 11:03 KW [id number] 05/15/24 11:08 KW 05/15/24 11:03 Wound Center Nurse 1 #4 RT GREAT TOE -Current Size (cm) - Length 0.1 -Current Size (cm) - Width 0.1 -Current Size (cm) - Depth 0.1 -Total Square Cm 0.01 -Exudate Amt None Present -Texture (Lianna-wound Skin Appearance) Assessed,Callus -Moisture (Lianna-wound Skin Appearance) Assessed -Color (Lianna-wound Skin Appearance) Assessed -Temperature (Lianna-wound Skin No Abnormality Appearance) (Pt Warm) -Tenderness on Palpation (Lianna-wound No Skin Appearance) -Ulcer Cleansing Rinsed/ Irrigated with Saline -Foul Odor after Cleansing No WC - Nurse 2 - General Ulcer CM Notes Start: 05/15/24 11:03 Freq: Status: Active Protocol: Activity Type Activity Date Activity User E-sign Co-sign Detail Recorded Client Recorded Date Recorded By Document 05/15/24 11:50 BMF [id number] 05/15/24 11:52 [facility] 05/15/24 11:50 Wound Center Nurse 2 -Time 11:51 -Post Debridement (cm) - Length 0.1 -Post Debridement (cm) - Width 0.1 -Post Debridement (cm) - Depth 0.1 -Total Square (Post) (cm) 0.01 -Area of Debridement (cm) - Length 0.1 -Area of Debridement (cm) - Width 0.1 -Total Square (Area) (cm) 0.01 -Wound/Ulcer Outcome Not Healed -Bleeding Controlled with NA Pain Scale: 0-10 Numeric Is Patient Pain Free? Yes WC - Nurse 3 - General Ulcer D/C NN Start: 05/15/24 11:03 Freq: Status: Active Protocol: Activity Type Activity Date Activity User E-sign Co-sign Detail Recorded Client Recorded Date Recorded By Document 05/15/24 12:05 [id number] 05/15/24 12:05 05/15/24 12:05 Wound Care Center Nurse 3 #4 RT GREAT TOE -Ulcer Cleansing Not Cleansed -Foul Odor after Cleansing No -Primary Dressing Covered/Secured with Dry Gauze & Roll Gauze, Secured with Tape Pain Scale: 0-10 Numeric Is Patient Pain Free? Yes - Visit Discharge Discharge Condition Stable Ambulatory Status Ambulatory, Walker Transportation Private Auto Assessment/Plan Assessment/Plan (1) Non-pressure chronic ulcer of other part of right foot with fat layer exposed: CODE(S): L97.512 - Non-pressure chronic ulcer of other part of right foot with fat layer exposed (2) Chronic ulcer of right heel with fat layer exposed: CODE(S): L97.412 - Non-pressure chronic ulcer of right heel and midfoot with fat layer exposed (3) Acute painful diabetic polyneuropathy: CODE(S): E11.42 - Type 2 diabetes mellitus with diabetic polyneuropathy (4) Type 2 diabetes mellitus with foot ulcer: CODE(S): E11.621 - Type 2 diabetes mellitus with foot ulcer; L97.509 - Non-pressure chronic ulcer of other part of unspecified foot with unspecified severity QUALIFIERS: Diabetes mellitus joint terminal attack controller insulin use: with joint terminal attack controller use Qualified Code(s): E11.621 - Type 2 diabetes mellitus with foot ulcer; L97.509 - Non-pressure chronic ulcer of other part of unspecified foot with unspecified severity; Z79.4 - oysterman (current) use of insulin (5) Lymphedema: CODE(S): I89.0 - Lymphedema, not elsewhere classified (6) Hypertension: CODE(S): I10 - Essential (primary) hypertension QUALIFIERS: Hypertension type: primary hypertension Qualified Code(s): I10 - Essential (primary) hypertension (7) Debility: CODE(S): R53.81 - Other malaise (8) Lower extremity edema: CODE(S): R60.0 - Localized edema PLAN: Plan Patient seen and evaluated Pre-debridement: Hallux 0.1cm x 0.1 cm x 0.1cm ; Right Heel healed Ulceration did undergo debridement as noted in the clinical panel above. Right hallux distal tuft ulceration measures 0.1 cm x 0.1 cm x 0.1 cm and right posterior lateral heel ulceration remains healed. No signs of infection. Foam border dressing to right heel to continue to pad and protect area. He is to change dressing daily. EpiFix graft #8 was applied to the right Hallux 05/01/24. Protective dressing placed to the right hallux today over epithelializing skin. Discussed that he is developing continued pressure ulceration at the hallux again since his return to shoe gear as he continues to curl toes down during . Previous offloading padding remains in place to the plantar side of his diabetic insert. Will also continue to offload with crest padding to the Hallux. Site did decrease in size today vs previous visit but remains at risk due to continued pressure. Discussed continue supportive shoe gear with digital offloading pad in place to the plantar side of his diabetic insert to prevent hammering of the hallux which I believe is causing pressure and ulceration. Will continue offloading with crest pad once site has healed. Ulceration at hallux demonstrate pressure to the distal tuft but is healing with offloading. Right heel demonstrates epithelialized skin. Discussed close monitoring of the newly epithelialized site at heel to prevent recidivism upon continued ambulation in shoe gear. Discussed possible surgical intervention for aiding in offloading of the hallux. He was approved for EpiFix graft for Right heel and has finished all 10 applications. He was approved for EpiFix for Right Hallux, and will continue application. Discussed continued wearing of Tubigrip compression stockings until ulcerations have healed at which time he will change to bilateral compression stocking. Discussed continuing to elevate feet at all times of rest for edema control. Discussed adequate protein intake to continue to aid in wound healing. Florentin supplementation was recommended. Discussed proper diabetic diet in addition to the stated above to ensure adequate wound healing. Patient states that his sugars have been up but not above 200. does state he does eat things that he should not though. Recent visit with PCP demonstrates increase in weight. He has continued taking the instructed supplements for his neuropathy consisting of of complex B vitamin daily, magnesium 250 mg daily, alpha lipoic acid 300 mg daily, and 500 mg glutamine supplement. Discussed continuing to take it and allow time for the nerves to continue repair. Discussed signs and symptoms of infection. Discussed with the patient if he notices redness about the wound margins that continues to spread or moves up the leg, any purulent drainage from the wound site, increasing foul odor from the wound or if he experiences fever greater than 101 degree accompanied by nausea, vomiting, chills, that these are signs of a progressing infection and he should report to the ED for IV antibiotics and further evaluation. He and his voiced understanding of this today. The following work up and care recommendations were made: Dressing: Foam border dressing to right heel to pad and protect. Protective dry sterile dressing to hallux. Will continue offloading with diabetic inserts and Lal's extension offloading. Wash: Soap and water Tissue growth optimization: None Offload: Elevating lower extremities at rest. Vascular: DP and PT pulses are weakly palpable with adequate capillary fill time. Do not feel that vascular status is affecting wound healing. Edema: Continue elevating lower extremities at all times of rest. Continue wearing Tubigrip compression stocking. Discussed eventual change to a standard prescription compression stocking once wounds have healed. Infection: No signs of infection. Wound cultures were taken given patient's prior history of recurrent bacterial infection at the sites. Pain: May take [id number] Tylenol for discomfort Host factors: DM type II with peripheral polyneuropathy, HTN, morbid obesity, lymphedema Discussed check next week and if site is healed he may follow up as needed. I answered all the patient's questions. To return to the wound healing center in 2 weeks or call sooner if the patient has any questions or concerns.
--- NOTE | 2024-05-20 11:41 | WC ---
PHOTO 05/15/24 RIGHT GREAT TOE
[2024-05-29 11:21] VITALS: BP 139/69; PULSE 78; RESP 18; TEMP 36.3
--- NOTE | 2024-05-29 18:48 | PCM.WC.PN ---
History of Present Illness Date of Service: 05/29/24 Chief Complaint: Right heel ulcer and right hallux ulcer History of Wound: 68 year old male presents to the wound center for evaluation of his right heal ulcer. It started as a a pressure ulcer in February 2022 when he he was in TCU and it healed. It then became a blister right before his Left TKR surgery. He had his left knee replaced 07/14/22 at [facility]. 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 He also has a history of diabetes type II with peripheral polyneuropathy, HTN, lymphedema, hypercholesterolemia and PE that he is on Xerelto. Wound culture obtained on 08/30/22 which are positive for VRE, Kocuria kristinae and Corynebacterium striatum. He will completed the Linezolid. Wound culture obtained 06/20/23 which was positive for Staphylococcus pseudintermediu, Pseudomonas aeruginosa, Corynebacterium minutissiumum, and Anaerobic cocci. He was started on Levaquin and Flagyl. Foot xray 09/27/22 - Osteopenia with diffuse osteoarthritic changes. Diffuse soft tissue swelling with ossification of the distal Achilles tendon. No acute abnormality or evidence of erosive changes. Did undergo updated radiograph of the right foot 11/08/2023 with no noted changes from previous x-ray. This is a recurring ulceration to both distal medial tuft of the right hallux and posterior lateral heel. He states both sites had scabbed up and he was previously discharged however scabs have later broken down with re-ulceration. Wound care -currently applying Joelle daily and is offloading and surgical shoe to the right foot. He denies any fever, chills, nausea and vomiting. Denies further complaints. Subjective Subjective This is a 68-year-old male who presents to the wound care center for continued follow-up of right hallux distal tuft ulceration and right posterior lateral calcaneal ulceration. Patient does report history of recurring ulcerations of these 2 specific sites over the last several years. Continues doxycycline for his knee. Continues to offload Hallux site. Continues wearing offloading foam boot in bed. reports his right heel ulceration has reopened as of last week she has been applying gauze dressings daily. States Hallux ulceration remains in good standing. Denies constitutional symptoms. Denies further complaints. Objective Data Objective Data Vital Signs: Vital Signs Temp Pulse Resp BP O2 Del Method 97.4 F L 78 18 139/69 H Room Air 05/29/24 11:21 05/29/24 11:21 05/29/24 11:21 05/29/24 11:21 05/15/24 11:03 Oxygen Delivery Method Room Air Physical Exam Const alert, oriented x3 and no apparent distress General Appearance: cooperative HEENT normocephalic Eyes General Eye: normal appearance of both eyes Neck General: normal visual inspection Lymph Lymphatic: no lymphadenopathy noted and no lymphedema noted Resp normal respiratory effort Cardio regular rate and regular rhythm Extremity normal capillary refill, no calf tenderness and no pedal edema Extremity Narrative: Vascular: DP and PT pulses weakly palpable. CFT less than 5 seconds to the digits. Normal temperature gradient. Hair growth is absent to digits/foot. Neurologic: Gross sensation intact. Decreased light touch sensation. Absent protective sensation tested with 5.07g [place] Zen monofilament. Lack of protective sensation consistent with diabetic peripheral polyneuropathy Dermatologic: There is varicosities noted to the lower extremity with subsequent edema about foot and LIANNA ankle. There is full thickness ulceration to the distal tuft of the Hallux, which is improved with epithelialized skin. There is a posterior lateral heel ulceration has reopened with healthy granular tissue. No signs of infection. Musculoskeletal: Muscle strength 5 of 5 age-appropriate. Decreased range of motion of the ankle joint in dorsiflexion with the knee extended without pain or crepitus. Decreased range of motion of the first metatarsophalangeal joint without pain or crepitus. There is hammertoe deformity of digits 1 through 5. Skin no rashes or lesions noted, skin turgor normal and no jaundice Neuro moves all extremities Debridement Note Debridement Note Wound debrided: Right posterior lateral heel Laterality: Right Wound Grade/Stage: Gomez stage I Type of Debridement: Excisional debridement Anesthesia Used: 5% Lidocaine Gel Depth: Down to and including healthy tissue and in the subcutaneous layer Percentage of wound debrided: 100 Instrument Used: 5mm curette Tissue Removed: Fibrous, devitalized subcutaneous, biofilm, slough Severity: Fat Layer Exposed Amount of bleeding with debridement: Mild Bleeding Controlled with: Compression and gauze Patient tolerated procedure: Patient tolerated procedure well Post-Debridement Measurements and Additional Note: Post-Debridement Measurements/Treatment LAM - Nurse 1 - General Ulcer Assessment Start: 05/15/24 11:03 Freq: Status: Active Protocol: NELL Activity Type Activity Date Activity User E-sign Co-sign Detail Recorded Client Recorded Date Recorded By Document 05/15/24 11:03 KW [id number] 05/15/24 11:08 KW Document 05/29/24 11:21 DL [id number] 05/29/24 11:33 DL 05/15/24 05/29/24 11:03 11:21 WC - Today's Visit Information Type of service Follow-up Visit Follow-up Visit (Physician/FINE CRAFT ARTIST (Physician/FINE CRAFT ARTIST ) ) Arrival Mode Ambulatory, Ambulatory, Walker Walker Transfer Assistance None Accompanied by Patient Identification Verified (Name & Yes Yes ) Patient Requires Transmission-Based No Precautions Vital Signs Temperature (97.8 F-99.1 F) 97.1 F L 97.4 F L Temperature Source Temporal Temporal Pulse Rate (60-100) 80 78 Pulse Location Monitor Monitor Respiratory Rate (12-18) 18 18 Respiratory rate source Observation Observation Oxygen Delivery Method Room Air Blood Pressure (90/60-120/80) 142/78 H 139/69 H Blood Pressure Mean (mm Hg) 99 92 Source Monitor Monitor Position Semi-Fowlers Blood Pressure Location Left Forearm History Since Last Visit- (Skip if this is Patient's initial visit) Have you changed medications since your No No last visit? Any new allergies or adverse reactions No No Had a fall/change in ADL's that may No No increase risk of falls Signs or symptoms of abuse and/or No No neglect since last visit Have you been in the hospital since your No No last visit? Has dressing in place as prescribed Yes Yes Has compression in place as prescribed Yes Yes Has offloadiing in place as prescribed N/A Yes Experienced any changes in pain level or No No management Left Footwear Regular Shoe Right Footwear Regular Shoe Surgical Shoe with pressure relief insole Pain Scale: 0-10 Numeric Is Patient Pain Free? Yes Yes LAM - Nurse 1 - General Ulcer Measurement Start: 05/15/24 11:03 Freq: Status: Active Protocol: Activity Type Activity Date Activity User E-sign Co-sign Detail Recorded Client Recorded Date Recorded By Document 05/15/24 11:03 KW [id number] 05/15/24 11:08 KW Document 05/29/24 11:21 DL [id number] 05/29/24 11:33 DL 05/15/24 05/29/24 11:03 11:21 Wound Center Nurse 1 #5 R Heel -Current Size (cm) - Length 4.2 -Current Size (cm) - Width 1.8 -Current Size (cm) - Depth 0.1 -Total Square Cm 7.56 -Photo Taken Yes -Classification - Thickness Full Thickness without Exposed Support Structure -Exudate Amt Medium -Exudate Type Sanguineous -Wound Margin Distinct, Outline Attached -Granulation Amt Medium (34-66%) -Granulation Quality Red -Necrosis Amt Medium (34-66%) -Necrotic Tissue Type Adherent Slough -Structure Exposed N/A -Texture (Lianna-wound Skin Appearance) Scarring -Moisture (Lianna-wound Skin Appearance) No Abnormality -Color (Lianna-wound Skin Appearance) No Abnormality -Temperature (Lianna-wound Skin No Abnormality Appearance) (Pt Warm) -Tenderness on Palpation (Lianna-wound No Skin Appearance) -Ulcer Cleansing Soap and Water -Foul Odor after Cleansing No -Anesthetic Used 5% Lidocaine Gel #4 RT GREAT TOE -Current Size (cm) - Length 0.1 0.1 -Current Size (cm) - Width 0.1 0.1 -Current Size (cm) - Depth 0.1 0.1 -Total Square Cm 0.01 0.01 -Photo Taken Yes -Exudate Amt None Present None Present -Wound Margin Distinct, Outline Attached -Granulation Amt None Present (0 %) -Necrosis Amt Small (1-33%) -Necrotic Tissue Type Eschar -Structure Exposed N/A -Texture (Lianna-wound Skin Appearance) Assessed,Callus Scarring -Moisture (Lianna-wound Skin Appearance) Assessed No Abnormality -Color (Lianna-wound Skin Appearance) Assessed No Abnormality -Temperature (Lianna-wound Skin No Abnormality No Abnormality Appearance) (Pt Warm) (Pt Warm) -Tenderness on Palpation (Lianna-wound No No Skin Appearance) -Ulcer Cleansing Rinsed/ Soap and Water Irrigated with Saline -Foul Odor after Cleansing No No -Anesthetic Used 5% Lidocaine Gel Right Calf (cm) 49.5 Right Ankle (cm) 31.5 WC - Nurse 2 - General Ulcer CM Notes Start: 05/15/24 11:03 Freq: Status: Active Protocol: Activity Type Activity Date Activity User E-sign Co-sign Detail Recorded Client Recorded Date Recorded By Document 05/15/24 11:50 [facility] [id number] 05/15/24 11:52 [facility] Document 05/29/24 12:25 [facility] [id number] 05/29/24 12:34 [facility] 05/15/24 05/29/24 11:50 12:25 Wound Center Nurse 2 #5 R Heel -Time 12:25 -Correct Patient Yes -Correct Side, Site, Position Yes -Correct Procedure Yes -Procedure Performed Yes -Type of Procedure Debridement -Clinical Debridement Subcutaneous -Tissue Removed Subcutaneous -Post Debridement (cm) - Length 4.4 -Post Debridement (cm) - Width 2.6 -Post Debridement (cm) - Depth 0.1 -Total Square (Post) (cm) 11.44 -Area of Debridement (cm) - Length 4.4 -Area of Debridement (cm) - Width 2.6 -Total Square (Area) (cm) 11.44 -Tunneling No -Undermining/Tunneling No -Circular Undermining No -Wound/Ulcer Outcome Not Healed -Ulcer Cleansing Rinsed/ Irrigated with Saline -Foul Odor after Cleansing No -Bioengineered Tissue No -Bleeding Controlled with Pressure -Treatment Response Procedure Tolerated Well -Debridement - Subq, 1st 20sq cm Yes #4 RT GREAT TOE -Time 11:51 -Post Debridement (cm) - Length 0.1 0.1 -Post Debridement (cm) - Width 0.1 0.1 -Post Debridement (cm) - Depth 0.1 0.1 -Total Square (Post) (cm) 0.01 0.01 -Area of Debridement (cm) - Length 0.1 0.1 -Area of Debridement (cm) - Width 0.1 0.1 -Total Square (Area) (cm) 0.01 0.01 -Wound/Ulcer Outcome Not Healed Not Healed -Bleeding Controlled with NA NA Pain Scale: 0-10 Numeric Is Patient Pain Free? Yes Yes - Nurse 3 - General Ulcer D/C NN Start: 05/15/24 11:03 Freq: Status: Active Protocol: Activity Type Activity Date Activity User E-sign Co-sign Detail Recorded Client Recorded Date Recorded By Document 05/15/24 12:05 [id number] 05/15/24 12:05 GM Document 05/29/24 12:51 RB [id number] 05/29/24 12:52 RB 05/15/24 05/29/24 12:05 12:51 Wound Care Center Nurse 3 #5 R Heel -Ulcer Cleansing Rinsed/ Irrigated with Saline -Primary Dressing Applied Promogran Joelle Matter -Primary Dressing Covered/Secured with Dry Gauze, Secured with Tape -Promogran Joelle Matter 1 #4 RT GREAT TOE -Ulcer Cleansing Not Cleansed -Foul Odor after Cleansing No -Primary Dressing Covered/Secured with Dry Gauze & Dry Gauze, Roll Gauze, Secured with Secured with Tape Tape Right -Tubular Bandage Single Layer -Size of Tubigrip Used Size F -Size F ($) 1 Treatment Response Procedure Tolerated Well Pain Scale: 0-10 Numeric Is Patient Pain Free? Yes Yes WC - Visit Discharge Discharge Condition Stable Stable Ambulatory Status Ambulatory, Ambulatory, Walker Walker Transportation Private Auto Private Auto Medication Reconcilliation completed & No provided to patient/care provider Clinical Summary of Care Provided Yes Assessment/Plan Assessment/Plan (1) Non-pressure chronic ulcer of other part of right foot with fat layer exposed: CODE(S): L97.512 - Non-pressure chronic ulcer of other part of right foot with fat layer exposed (2) Chronic ulcer of right heel with fat layer exposed: CODE(S): L97.412 - Non-pressure chronic ulcer of right heel and midfoot with fat layer exposed (3) Acute painful diabetic polyneuropathy: CODE(S): E11.42 - Type 2 diabetes mellitus with diabetic polyneuropathy (4) Type 2 diabetes mellitus with foot ulcer: CODE(S): E11.621 - Type 2 diabetes mellitus with foot ulcer; L97.509 - Non-pressure chronic ulcer of other part of unspecified foot with unspecified severity QUALIFIERS: 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 Qualified Code(s): E11.621 - Type 2 diabetes mellitus with foot ulcer; L97.509 - Non-pressure chronic ulcer of other part of unspecified foot with unspecified severity; 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 Right hallux distal tuft ulceration measures 0.1 cm x 0.1 cm x 0.1 cm and right posterior lateral heel ulceration measures 4.4 x 2.6 x 0.1. No signs of infection. Joelle and dry sterile dressing applied to right posterior heel ulceration. He is to change dressing daily. EpiFix graft #8 was applied to the right Hallux 05/01/24. Protective dressing placed to the right hallux today over epithelializing skin. Discussed that he is developing continued pressure ulceration at the hallux again since his return to shoe gear as he continues to curl toes down during gait. Previous offloading padding remains in place to the plantar side of his diabetic insert. Will also continue to offload with crest padding to the Hallux. Site did decrease in size today to the right hallux vs previous visit but remains at risk due to continued pressure. He has reopened ulceration to the right posterior heel. Discussed continue supportive shoe gear with digital offloading pad in place to the plantar side of his diabetic insert to prevent hammering of the hallux which I believe is causing pressure and ulceration. Will continue offloading with crest pad once site has healed. Ulceration at hallux demonstrate pressure to the distal tuft but is healing with offloading. Right heel demonstrates epithelialized skin. Discussed close monitoring of the newly epithelialized site at heel to prevent recidivism upon continued ambulation in shoe gear. Discussed possible surgical intervention for aiding in offloading of the hallux. He was approved for EpiFix graft for Right heel and has finished all 10 applications. He was approved for EpiFix for Right Hallux, and will continue application. Discussed continued wearing of Tubigrip compression stockings until ulcerations have healed at which time he will change to bilateral compression stocking. Discussed continuing to elevate feet at all times of rest for edema control. Discussed adequate protein intake to continue to aid in wound healing. Florentin supplementation was recommended. Discussed proper diabetic diet in addition to the stated above to ensure adequate wound healing. Patient states that his sugars have been up but not above 200. does state he does eat things that he should not though. Recent visit with PCP demonstrates increase in weight. He has continued taking the instructed supplements for his neuropathy consisting of of complex B vitamin daily, magnesium 250 mg daily, alpha lipoic acid 300 mg daily, and 500 mg glutamine supplement. Discussed continuing to take it and allow time for the nerves to continue repair. Discussed signs and symptoms of infection. Discussed with the patient if he notices redness about the wound margins that continues to spread or moves up the leg, any purulent drainage from the wound site, increasing foul odor from the wound or if he experiences fever greater than 101 degree accompanied by nausea, vomiting, chills, that these are signs of a progressing infection and he should report to the ED for IV antibiotics and further evaluation. He and his voiced understanding of this today. The following work up and care recommendations were made: Dressing: Joelle dry sterile dressing right heel, change daily. Protective dry sterile dressing to hallux. Will continue offloading with diabetic inserts and Lal's extension offloading. Wash: Soap and water Tissue growth optimization: Joelle Offload: Elevating lower extremities at rest. Vascular: DP and PT pulses are weakly palpable with adequate capillary fill time. Do not feel that vascular status is affecting wound healing. Edema: Continue elevating lower extremities at all times of rest. Continue wearing Tubigrip compression stocking. Discussed eventual change to a standard prescription compression stocking once wounds have healed. Infection: No signs of infection. Wound cultures were taken given patient's prior history of recurrent bacterial infection at the sites. Pain: May take [id number] Tylenol for discomfort Host factors: DM type II with peripheral polyneuropathy, HTN, morbid obesity, lymphedema Discussed check next week and if site is healed he may follow up as needed. I answered all the patient's questions. To return to the wound healing center in 1 week or call sooner if the patient has any questions or concerns.
[2024-06-05 11:15] VITALS: BP 143/80; PULSE 85; RESP 20; TEMP 36.1
--- NOTE | 2024-06-05 12:00 | PCM.WC.PN ---
History of Present Illness Date of Service: 06/05/24 Chief Complaint: Right heel ulcer and right hallux ulcer History of Wound: 68 year old male presents to the wound center for evaluation of his right heal ulcer. It started as a a pressure ulcer in February 2022 when he he was in TCU and it healed. It then became a blister right before his Left TKR surgery. He had his left knee replaced 07/14/22 at [facility]. 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 He also has a history of diabetes type II with peripheral polyneuropathy, HTN, lymphedema, hypercholesterolemia and PE that he is on Xerelto. Wound culture obtained on 08/30/22 which are positive for VRE, Kocuria kristinae and Corynebacterium striatum. He will completed the Linezolid. Wound culture obtained 06/20/23 which was positive for Staphylococcus pseudintermediu, Pseudomonas aeruginosa, Corynebacterium minutissiumum, and Anaerobic cocci. He was started on Levaquin and Flagyl. Foot xray 09/27/22 - Osteopenia with diffuse osteoarthritic changes. Diffuse soft tissue swelling with ossification of the distal Achilles tendon. No acute abnormality or evidence of erosive changes. Did undergo updated radiograph of the right foot 11/08/2023 with no noted changes from previous x-ray. This is a recurring ulceration to both distal medial tuft of the right hallux and posterior lateral heel. He states both sites had scabbed up and he was previously discharged however scabs have later broken down with re-ulceration. Wound care -currently applying Joelle daily and is offloading and surgical shoe to the right foot. He denies any fever, chills, nausea and vomiting. Denies further complaints. Subjective Subjective This is a 68-year-old male who presents to the wound care center for continued follow-up of right hallux distal tuft ulceration and right posterior lateral calcaneal ulceration. Patient does report history of recurring ulcerations of these 2 specific sites over the last several years. Continues to offload Hallux site. States he is wearing offloading foam boot in bed. States Hallux ulceration remains in good standing. Continues care for right heel ulceration which had reopened last week. Denies constitutional symptoms. Denies further complaints. Objective Data Objective Data Vital Signs: Vital Signs Temp Pulse Resp BP O2 Del Method 97 F L 85 20 H 143/80 H Room Air 06/05/24 11:15 06/05/24 11:15 06/05/24 11:15 06/05/24 11:15 05/15/24 11:03 Oxygen Delivery Method Room Air Physical Exam Const alert, oriented x3 and no apparent distress General Appearance: cooperative HEENT normocephalic Eyes General Eye: normal appearance of both eyes Neck General: normal visual inspection Lymph Lymphatic: no lymphadenopathy noted and no lymphedema noted Resp normal respiratory effort Cardio regular rate and regular rhythm Extremity normal capillary refill, no calf tenderness and no pedal edema Extremity Narrative: Vascular: DP and PT pulses weakly palpable. CFT less than 5 seconds to the digits. Normal temperature gradient. Hair growth is absent to digits/foot. Neurologic: Gross sensation intact. Decreased light touch sensation. Absent protective sensation tested with 5.07g Sprague Zen monofilament. Lack of protective sensation consistent with diabetic peripheral polyneuropathy Dermatologic: There is varicosities noted to the lower extremity with subsequent edema about foot and LIANNA ankle. There is full thickness ulceration to the distal tuft of the Hallux, which is improved with epithelialized skin. There is a posterior lateral heel ulceration with healthy granular tissue. No signs of infection. Musculoskeletal: Muscle strength 5 of 5 age-appropriate. Decreased range of motion of the ankle joint in dorsiflexion with the knee extended without pain or crepitus. Decreased range of motion of the first metatarsophalangeal joint without pain or crepitus. There is hammertoe deformity of digits 1 through 5. Skin no rashes or lesions noted, skin turgor normal and no jaundice Neuro moves all extremities Debridement Note Debridement Note Wound debrided: Right heel Laterality: Right Wound Grade/Stage: Gomez stage I Type of Debridement: Excisional debridement Anesthesia Used: 5% Lidocaine Gel Depth: Down to and including healthy tissue and in the subcutaneous layer Percentage of wound debrided: 100 Instrument Used: 5mm curette Tissue Removed: Fibrous, devitalized subcutaneous, biofilm, slough Severity: Fat Layer Exposed Amount of bleeding with debridement: Mild Bleeding Controlled with: Compression and gauze Patient tolerated procedure: Patient tolerated procedure well Post-Debridement Measurements and Additional Note: Post-Debridement Measurements/Treatment WC - Nurse 1 - General Ulcer Assessment Start: 05/15/24 11:03 Freq: Status: Active Protocol: WC.LOWEXT Activity Type Activity Date Activity User E-sign Co-sign Detail Recorded Client Recorded Date Recorded By Document 05/15/24 11:03 KW [id number] 05/15/24 11:08 KW Document 05/29/24 11:21 DL [id number] 05/29/24 11:33 DL Document 06/05/24 11:15 DL [id number] 06/05/24 11:22 DL Edit Result 06/05/24 11:15 DL (1) [id number] 06/05/24 11:26 DL (1) Blood Pressure (90/60-120/80) 158/104 H => 143/80 H Blood Pressure Mean (mm Hg) 122 => 101 05/15/24 05/29/24 06/05/24 11:03 11:21 11:15 WC - Today's Visit Information Type of service Follow-up Visit Follow-up Visit Follow-up Visit (Physician/COMPENSATION AND BENEFITS MANAGER (Physician/COMPENSATION AND BENEFITS MANAGER (Physician/COMPENSATION AND BENEFITS MANAGER ) ) ) Arrival Mode Ambulatory, Ambulatory, Ambulatory, Walker Walker Walker Transfer Assistance None None Accompanied by Patient Identification Verified (Name & Yes Yes Yes ) Patient Requires Transmission-Based No No Precautions Vital Signs Temperature (97.8 F-99.1 F) 97.1 F L 97.4 F L 97 F L Temperature Source Temporal Temporal Temporal Pulse Rate (60-100) 80 78 85 Pulse Location Monitor Monitor Monitor Respiratory Rate (12-18) 18 18 20 H Respiratory rate source Observation Observation Observation Oxygen Delivery Method Room Air Blood Pressure (90/60-120/80) 142/78 H 139/69 H 143/80 H Blood Pressure Mean (mm Hg) 99 92 101 Source Monitor Monitor Monitor Position Semi-Fowlers Blood Pressure Location Left Forearm History Since Last Visit- (Skip if this is Patient's initial visit) Have you changed medications since your No No No last visit? Any new allergies or adverse reactions No No No Had a fall/change in ADL's that may No No No increase risk of falls Signs or symptoms of abuse and/or No No No neglect since last visit Have you been in the hospital since your No No No last visit? Has dressing in place as prescribed Yes Yes Yes Has compression in place as prescribed Yes Yes Yes Has offloadiing in place as prescribed N/A Yes Yes Experienced any changes in pain level or No No No management Left Footwear Regular Shoe Regular Shoe Right Footwear Regular Shoe Surgical Shoe Surgical Shoe with pressure with pressure relief insole relief insole Pain Scale: 0-10 Numeric Is Patient Pain Free? Yes Yes Yes WC - Nurse 1 - General Ulcer Measurement Start: 05/15/24 11:03 Freq: Status: Active Protocol: Activity Type Activity Date Activity User E-sign Co-sign Detail Recorded Client Recorded Date Recorded By Document 05/15/24 11:03 KW [id number] 05/15/24 11:08 KW Document 05/29/24 11:21 DL [id number] 05/29/24 11:33 DL Document 06/05/24 11:15 DL [id number] 06/05/24 11:22 DL 05/15/24 05/29/24 06/05/24 11:03 11:21 11:15 Wound Center Nurse 1 #5 R Heel -Current Size (cm) - Length 4.2 0.1 -Current Size (cm) - Width 1.8 0.1 -Current Size (cm) - Depth 0.1 0.1 -Total Square Cm 7.56 0.01 -Photo Taken Yes -Classification - Thickness Full Thickness without Exposed Support Structure -Exudate Amt Medium Small -Exudate Type Sanguineous -Wound Margin Distinct, Distinct, Outline Outline Attached Attached -Granulation Amt Medium (34-66%) Small (1-33%) -Granulation Quality [place] -Necrosis Amt Medium (34-66%) Large (67-100%) -Necrotic Tissue Type Adherent Slough Adherent Slough -Structure Exposed N/A N/A -Texture (Lianna-wound Skin Appearance) Scarring Scarring -Moisture (Lianna-wound Skin Appearance) No Abnormality Dry/Scaly -Color (Lianna-wound Skin Appearance) No Abnormality No Abnormality -Temperature (Lianna-wound Skin No Abnormality No Abnormality Appearance) (Pt Warm) (Pt Warm) -Tenderness on Palpation (Lianna-wound No Skin Appearance) -Ulcer Cleansing Soap and Water Soap and Water -Foul Odor after Cleansing No No -Anesthetic Used 5% Lidocaine 4% Lidocaine Gel Solution #4 RT GREAT TOE -Current Size (cm) - Length 0.1 0.1 0.1 -Current Size (cm) - Width 0.1 0.1 0.1 -Current Size (cm) - Depth 0.1 0.1 0.1 -Total Square Cm 0.01 0.01 0.01 -Photo Taken Yes -Exudate Amt None Present None Present None Present -Wound Margin Distinct, Distinct, Outline Outline Attached Attached -Granulation Amt None Present (0 Small (1-33%) %) -Granulation Quality [place] -Necrosis Amt Small (1-33%) Small (1-33%) -Necrotic Tissue Type Eschar Eschar -Structure Exposed N/A N/A -Texture (Lianna-wound Skin Appearance) Assessed,Callus Scarring Scarring -Moisture (Lianna-wound Skin Appearance) Assessed No Abnormality No Abnormality -Color (Lianna-wound Skin Appearance) Assessed No Abnormality No Abnormality -Temperature (Lianna-wound Skin No Abnormality No Abnormality No Abnormality Appearance) (Pt Warm) (Pt Warm) (Pt Warm) -Tenderness on Palpation (Lianna-wound No No No Skin Appearance) -Ulcer Cleansing Rinsed/ Soap and Water Soap and Water Irrigated with Saline -Foul Odor after Cleansing No No No -Anesthetic Used 5% Lidocaine 5% Lidocaine Gel Gel Right Calf (cm) 49.5 Right Ankle (cm) 31.5 WC - Nurse 2 - General Ulcer CM Notes Start: 05/15/24 11:03 Freq: Status: Active Protocol: Activity Type Activity Date Activity User E-sign Co-sign Detail Recorded Client Recorded Date Recorded By Document 05/15/24 11:50 [facility] [id number] 05/15/24 11:52 [facility] Document 05/29/24 12:25 [facility] [id number] 05/29/24 12:34 [facility] 05/15/24 05/29/24 11:50 12:25 Wound Center Nurse 2 #5 R Heel -Time 12:25 -Correct Patient Yes -Correct Side, Site, Position Yes -Correct Procedure Yes -Procedure Performed Yes -Type of Procedure Debridement -Clinical Debridement Subcutaneous -Tissue Removed Subcutaneous -Post Debridement (cm) - Length 4.4 -Post Debridement (cm) - Width 2.6 -Post Debridement (cm) - Depth 0.1 -Total Square (Post) (cm) 11.44 -Area of Debridement (cm) - Length 4.4 -Area of Debridement (cm) - Width 2.6 -Total Square (Area) (cm) 11.44 -Tunneling No -Undermining/Tunneling No -Circular Undermining No -Wound/Ulcer Outcome Not Healed -Ulcer Cleansing Rinsed/ Irrigated with Saline -Foul Odor after Cleansing No -Bioengineered Tissue No -Bleeding Controlled with Pressure -Treatment Response Procedure Tolerated Well -Debridement - Subq, 1st 20sq cm Yes #4 RT GREAT TOE -Time 11:51 -Post Debridement (cm) - Length 0.1 0.1 -Post Debridement (cm) - Width 0.1 0.1 -Post Debridement (cm) - Depth 0.1 0.1 -Total Square (Post) (cm) 0.01 0.01 -Area of Debridement (cm) - Length 0.1 0.1 -Area of Debridement (cm) - Width 0.1 0.1 -Total Square (Area) (cm) 0.01 0.01 -Wound/Ulcer Outcome Not Healed Not Healed -Bleeding Controlled with NA NA Pain Scale: 0-10 Numeric Is Patient Pain Free? Yes Yes - Nurse 3 - General Ulcer D/C NN Start: 05/15/24 11:03 Freq: Status: Active Protocol: Activity Type Activity Date Activity User E-sign Co-sign Detail Recorded Client Recorded Date Recorded By Document 05/15/24 12:05 [id number] 05/15/24 12:05 Document 05/29/24 12:51 RB [id number] 05/29/24 12:52 RB 05/15/24 05/29/24 12:05 12:51 Wound Care Center Nurse 3 #5 R Heel -Ulcer Cleansing Rinsed/ Irrigated with Saline -Primary Dressing Applied Promogran Joelle Matter -Primary Dressing Covered/Secured with Dry Gauze, Secured with Tape -Promogran Joelle Matter 1 #4 RT GREAT TOE -Ulcer Cleansing Not Cleansed -Foul Odor after Cleansing No -Primary Dressing Covered/Secured with Dry Gauze & Dry Gauze, Roll Gauze, Secured with Secured with Tape Tape Right -Tubular Bandage Single Layer -Size of Tubigrip Used Size F -Size F ($) 1 Treatment Response Procedure Tolerated Well Pain Scale: 0-10 Numeric Is Patient Pain Free? Yes Yes WC - Visit Discharge Discharge Condition Stable Stable Ambulatory Status Ambulatory, Ambulatory, Walker Walker Transportation Private Auto Private Auto Medication Reconcilliation completed & No provided to patient/care provider Clinical Summary of Care Provided Yes Assessment/Plan Assessment/Plan (1) Non-pressure chronic ulcer of other part of right foot with fat layer exposed: CODE(S): L97.512 - Non-pressure chronic ulcer of other part of right foot with fat layer exposed (2) Chronic ulcer of right heel with fat layer exposed: CODE(S): L97.412 - Non-pressure chronic ulcer of right heel and midfoot with fat layer exposed (3) Acute painful diabetic polyneuropathy: CODE(S): E11.42 - Type 2 diabetes mellitus with diabetic polyneuropathy (4) Type 2 diabetes mellitus with foot ulcer: CODE(S): E11.621 - Type 2 diabetes mellitus with foot ulcer; L97.509 - Non-pressure chronic ulcer of other part of unspecified foot with unspecified severity QUALIFIERS: Diabetes mellitus senior care insulin use: with termination clerk use Qualified Code(s): E11.621 - Type 2 diabetes mellitus with foot ulcer; L97.509 - Non-pressure chronic ulcer of other part of unspecified foot with unspecified severity; Z79.4 - termination clerk (current) use of insulin (5) Lymphedema: CODE(S): I89.0 - Lymphedema, not elsewhere classified (6) Hypertension: CODE(S): I10 - Essential (primary) hypertension QUALIFIERS: Hypertension type: primary hypertension Qualified Code(s): I10 - Essential (primary) hypertension (7) Debility: CODE(S): R53.81 - Other malaise (8) Lower extremity edema: CODE(S): R60.0 - Localized edema PLAN: Plan Patient seen and evaluated Pre-debridement: Hallux 0.1cm x 0.1 cm x 0.1cm ; Right Heel measuring 2.6 x 1.1 x 0.1 Ulceration did undergo debridement as noted in the clinical panel above. Right hallux distal tuft ulceration measures 0.1 cm x 0.1 cm x 0.1 cm and right posterior lateral heel ulceration measures 2.7 x 1.1 x 0.1. No signs of infection. Joelle and dry sterile dressing applied to right posterior heel ulceration. He is to change dressing daily. EpiFix graft #8 was applied to the right Hallux 05/01/24. Protective dressing placed to the right hallux today over epithelializing skin. Discussed that he is developing continued pressure ulceration at the hallux again since his return to shoe gear as he continues to curl toes down during gait. Previous offloading padding remains in place to the plantar side of his diabetic insert. Will also continue to offload with crest padding to the Hallux. Site did decrease in size today to the right hallux vs previous visit but remains at risk due to continued pressure. Right posterior heel ulceration has improved with reduction in size versus previous visit Discussed continue supportive shoe gear with digital offloading pad in place to the plantar side of his diabetic insert to prevent hammering of the hallux which I believe is causing pressure and ulceration. Will continue offloading with crest pad once site has healed. Ulceration at hallux demonstrate pressure to the distal tuft but is healing with offloading. Right heel demonstrates epithelialized skin. Previously discussed possible surgical intervention for aiding in offloading of the hallux. He was approved for EpiFix graft for Right heel and has finished all 10 applications. He was approved for EpiFix for Right Hallux, and will continue application. Discussed continued wearing of Tubigrip compression stockings until ulcerations have healed at which time he will change to bilateral compression stocking. Discussed continuing to elevate feet at all times of rest for edema control. Discussed adequate protein intake to continue to aid in wound healing. Floretnin supplementation was recommended. Discussed proper diabetic diet in addition to the stated above to ensure adequate wound healing. Patient states that his sugars have been up but not above 200. does state he does eat things that he should not though. Recent visit with PCP demonstrates increase in weight. He has continued taking the instructed supplements for his neuropathy consisting of of complex B vitamin daily, magnesium 250 mg daily, alpha lipoic acid 300 mg daily, and 500 mg glutamine supplement. Discussed continuing to take it and allow time for the nerves to continue repair. Discussed signs and symptoms of infection. Discussed with the patient if he notices redness about the wound margins that continues to spread or moves up the leg, any purulent drainage from the wound site, increasing foul odor from the wound or if he experiences fever greater than 101 degree accompanied by nausea, vomiting, chills, that these are signs of a progressing infection and he should report to the ED for IV antibiotics and further evaluation. He and his voiced understanding of this today. The following work up and care recommendations were made: Dressing: Joelle dry sterile dressing right heel, change daily. Protective dry sterile dressing to hallux. Will continue offloading with diabetic inserts and Lal's extension offloading. Wash: Soap and water Tissue growth optimization: Joelle Offload: Elevating lower extremities at rest. Vascular: DP and PT pulses are weakly palpable with adequate capillary fill time. Do not feel that vascular status is affecting wound healing. Edema: Continue elevating lower extremities at all times of rest. Continue wearing Tubigrip compression stocking. Discussed eventual change to a standard prescription compression stocking once wounds have healed. Infection: No signs of infection. Wound cultures were taken given patient's prior history of recurrent bacterial infection at the sites. Pain: May take [id number] Tylenol for discomfort Host factors: DM type II with peripheral polyneuropathy, HTN, morbid obesity, lymphedema I answered all the patient's questions. To return to the wound healing center in 1 week or call sooner if the patient has any questions or concerns.
--- NOTE | 2024-06-12 11:09 | PCM.WC.PN ---
History of Present Illness Date of Service: 06/12/24 Chief Complaint: Right heel ulcer and right hallux ulcer History of Wound: 68 year old male presents to the wound center for evaluation of his right heal ulcer. It started as a a pressure ulcer in February 2022 when he he was in TCU and it healed. It then became a blister right before his Left TKR surgery. He had his left knee replaced 07/14/22 at [facility]. 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 He also has a history of diabetes type II with peripheral polyneuropathy, HTN, lymphedema, hypercholesterolemia and PE that he is on Xerelto. Wound culture obtained on 08/30/22 which are positive for VRE, Kocuria kristinae and Corynebacterium striatum. He will completed the Linezolid. Wound culture obtained 06/20/23 which was positive for Staphylococcus pseudintermediu, Pseudomonas aeruginosa, Corynebacterium minutissiumum, and Anaerobic cocci. He was started on Levaquin and Flagyl. Foot xray 09/27/22 - Osteopenia with diffuse osteoarthritic changes. Diffuse soft tissue swelling with ossification of the distal Achilles tendon. No acute abnormality or evidence of erosive changes. Did undergo updated radiograph of the right foot 11/08/2023 with no noted changes from previous x-ray. This is a recurring ulceration to both distal medial tuft of the right hallux and posterior lateral heel. He states both sites had scabbed up and he was previously discharged however scabs have later broken down with re-ulceration. Wound care -currently applying Joelle daily and is offloading and surgical shoe to the right foot. He denies any fever, chills, nausea and vomiting. Denies further complaints. Subjective Subjective This is a 68-year-old male who presents to the wound care center for continued follow-up of right hallux distal tuft ulceration and right posterior lateral calcaneal ulceration. Patient does report history of recurring ulcerations of these 2 specific sites over the last several years. Continues to offload Hallux site and states continued good standing. States he is wearing offloading foam boot in bed. Continues care for right heel ulceration which had reopened but states it is improving. Denies constitutional symptoms. Denies further complaints. Objective Data Objective Data Vital Signs: Vital Signs Temp Pulse Resp BP O2 Del Method 97 F L 85 20 H 143/80 H Room Air 06/05/24 11:15 06/05/24 11:15 06/05/24 11:15 06/05/24 11:15 05/15/24 11:03 Oxygen Delivery Method Room Air Physical Exam Const alert, oriented x3 and no apparent distress General Appearance: cooperative HEENT normocephalic Eyes General Eye: normal appearance of both eyes Neck General: normal visual inspection Lymph Lymphatic: no lymphadenopathy noted and no lymphedema noted Resp normal respiratory effort Cardio regular rate and regular rhythm Extremity normal capillary refill, no calf tenderness and no pedal edema Extremity Narrative: Vascular: DP and PT pulses weakly palpable. CFT less than 5 seconds to the digits. Normal temperature gradient. Hair growth is absent to digits/foot. Neurologic: Gross sensation intact. Decreased light touch sensation. Absent protective sensation tested with 5.07g [place] Zen monofilament. Lack of protective sensation consistent with diabetic peripheral polyneuropathy Dermatologic: There is varicosities noted to the lower extremity with subsequent edema about foot and LIANNA ankle. There is full thickness ulceration to the distal tuft of the Hallux, which is improved with epithelialized skin and nearing closure. There is a posterior lateral heel ulceration with healthy granular tissue. No signs of infection. Musculoskeletal: Muscle strength 5 of 5 age-appropriate. Decreased range of motion of the ankle joint in dorsiflexion with the knee extended without pain or crepitus. Decreased range of motion of the first metatarsophalangeal joint without pain or crepitus. There is hammertoe deformity of digits 1 through 5. Skin no rashes or lesions noted, skin turgor normal and no jaundice Neuro moves all extremities Debridement Note Debridement Note Wound debrided: Right posterior lateral heel Laterality: Right Wound Grade/Stage: Gomez stage I Type of Debridement: Excisional debridement Anesthesia Used: 5% Lidocaine Gel Depth: Down to and including healthy tissue and in the subcutaneous layer Percentage of wound debrided: 100 Instrument Used: #15 blade Tissue Removed: Fibrous, devitalized subcutaneous, biofilm, slough Severity: Fat Layer Exposed Amount of bleeding with debridement: Mild Bleeding Controlled with: Compression and gauze Patient tolerated procedure: Patient tolerated procedure well Post-Debridement Measurements and Additional Note: Post-Debridement Measurements/Treatment WC - Nurse 1 - General Ulcer Assessment Start: 10/03/24 11:03 Freq: Status: Active Protocol: WC.LOWEXT Activity Type Activity Date Activity User E-sign Co-sign Detail Recorded Client Recorded Date Recorded By Document 05/15/24 11:03 KW [id number] 05/15/24 11:08 KW Document 05/29/24 11:21 DL [id number] 05/29/24 11:33 DL Document 06/05/24 11:15 DL [id number] 06/05/24 11:22 DL Edit Result 06/05/24 11:15 DL (1) [id number] 06/05/24 11:26 DL (1) Blood Pressure (90/60-120/80) 158/104 H => 143/80 H Blood Pressure Mean (mm Hg) 122 => 101 05/15/24 05/29/24 06/05/24 11:03 11:21 11:15 WC - Today's Visit Information Type of service Follow-up Visit Follow-up Visit Follow-up Visit (Physician/TRANSPORTATION MAINTENANCE WORKER (Physician/TRANSPORTATION MAINTENANCE WORKER (Physician/TRANSPORTATION MAINTENANCE WORKER ) ) ) Arrival Mode Ambulatory, Ambulatory, Ambulatory, Walker Walker Walker Transfer Assistance None None Accompanied by Patient Identification Verified (Name & Yes Yes Yes ) Patient Requires Transmission-Based No No Precautions Vital Signs Temperature (97.8 F-99.1 F) 97.1 F L 97.4 F L 97 F L Temperature Source Temporal Temporal Temporal Pulse Rate (60-100) 80 78 85 Pulse Location Monitor Monitor Monitor Respiratory Rate (12-18) 18 18 20 H Respiratory rate source Observation Observation Observation Oxygen Delivery Method Room Air Blood Pressure (90/60-120/80) 142/78 H 139/69 H 143/80 H Blood Pressure Mean (mm Hg) 99 92 101 Source Monitor Monitor Monitor Position Semi-Fowlers Blood Pressure Location Left Forearm History Since Last Visit- (Skip if this is Patient's initial visit) Have you changed medications since your No No No last visit? Any new allergies or adverse reactions No No No Had a fall/change in ADL's that may No No No increase risk of falls Signs or symptoms of abuse and/or No No No neglect since last visit Have you been in the hospital since your No No No last visit? Has dressing in place as prescribed Yes Yes Yes Has compression in place as prescribed Yes Yes Yes Has offloadiing in place as prescribed N/A Yes Yes Experienced any changes in pain level or No No No management Left Footwear Regular Shoe Regular Shoe Right Footwear Regular Shoe Surgical Shoe Surgical Shoe with pressure with pressure relief insole relief insole Pain Scale: 0-10 Numeric Is Patient Pain Free? Yes Yes Yes WC - Nurse 1 - General Ulcer Measurement Start: 05/15/24 11:03 Freq: Status: Active Protocol: Activity Type Activity Date Activity User E-sign Co-sign Detail Recorded Client Recorded Date Recorded By Document 05/15/24 11:03 KW [id number] 05/15/24 11:08 KW Document 05/29/24 11:21 DL [id number] 05/29/24 11:33 DL Document 06/05/24 11:15 DL [id number] 06/05/24 11:22 DL 05/15/24 05/29/24 06/05/24 11:03 11:21 11:15 Wound Center Nurse 1 #5 R Heel -Current Size (cm) - Length 4.2 0.1 -Current Size (cm) - Width 1.8 0.1 -Current Size (cm) - Depth 0.1 0.1 -Total Square Cm 7.56 0.01 -Photo Taken Yes -Classification - Thickness Full Thickness without Exposed Support Structure -Exudate Amt Medium Small -Exudate Type Sanguineous -Wound Margin Distinct, Distinct, Outline Outline Attached Attached -Granulation Amt Medium (34-66%) Small (1-33%) -Granulation Quality Red [place] -Necrosis Amt Medium (34-66%) Large (67-100%) -Necrotic Tissue Type Adherent Slough Adherent Slough -Structure Exposed N/A N/A -Texture (Lianna-wound Skin Appearance) Scarring Scarring -Moisture (Lianna-wound Skin Appearance) No Abnormality Dry/Scaly -Color (Lianna-wound Skin Appearance) No Abnormality No Abnormality -Temperature (Lianna-wound Skin No Abnormality No Abnormality Appearance) (Pt Warm) (Pt Warm) -Tenderness on Palpation (Lianna-wound No Skin Appearance) -Ulcer Cleansing Soap and Water Soap and Water -Foul Odor after Cleansing No No -Anesthetic Used 5% Lidocaine 4% Lidocaine Gel Solution #4 RT GREAT TOE -Current Size (cm) - Length 0.1 0.1 0.1 -Current Size (cm) - Width 0.1 0.1 0.1 -Current Size (cm) - Depth 0.1 0.1 0.1 -Total Square Cm 0.01 0.01 0.01 -Photo Taken Yes -Exudate Amt None Present None Present None Present -Wound Margin Distinct, Distinct, Outline Outline Attached Attached -Granulation Amt None Present (0 Small (1-33%) %) -Granulation Quality [place] -Necrosis Amt Small (1-33%) Small (1-33%) -Necrotic Tissue Type Eschar Eschar -Structure Exposed N/A N/A -Texture (Lianna-wound Skin Appearance) Assessed,Callus Scarring Scarring -Moisture (Lianna-wound Skin Appearance) Assessed No Abnormality No Abnormality -Color (Lianna-wound Skin Appearance) Assessed No Abnormality No Abnormality -Temperature (Lianna-wound Skin No Abnormality No Abnormality No Abnormality Appearance) (Pt Warm) (Pt Warm) (Pt Warm) -Tenderness on Palpation (Lianna-wound No No No Skin Appearance) -Ulcer Cleansing Rinsed/ Soap and Water Soap and Water Irrigated with Saline -Foul Odor after Cleansing No No No -Anesthetic Used 5% Lidocaine 5% Lidocaine Gel Gel Right Calf (cm) 49.5 Right Ankle (cm) 31.5 WC - Nurse 2 - General Ulcer CM Notes Start: 05/15/24 11:03 Freq: Status: Active Protocol: Activity Type Activity Date Activity User E-sign Co-sign Detail Recorded Client Recorded Date Recorded By Document 05/15/24 11:50 [facility] [id number] 05/15/24 11:52 [facility] Document 05/29/24 12:25 [facility] [id number] 05/29/24 12:34 [facility] Document 06/05/24 11:47 [facility] [id number] 06/05/24 12:10 [facility] 05/15/24 05/29/24 06/05/24 11:50 12:25 11:47 Wound Center Nurse 2 #5 R Heel -Time 12:25 11:47 -Correct Patient Yes Yes -Correct Side, Site, Position Yes Yes -Correct Procedure Yes Yes -Procedure Performed Yes Yes -Type of Procedure Debridement Debridement -Clinical Debridement Subcutaneous Subcutaneous -Tissue Removed Subcutaneous Subcutaneous -Post Debridement (cm) - Length 4.4 2.7 -Post Debridement (cm) - Width 2.6 1.1 -Post Debridement (cm) - Depth 0.1 0.1 -Total Square (Post) (cm) 11.44 2.97 -Area of Debridement (cm) - Length 4.4 2.7 -Area of Debridement (cm) - Width 2.6 1.1 -Total Square (Area) (cm) 11.44 2.97 -Tunneling No No -Undermining/Tunneling No No -Circular Undermining No No -Wound/Ulcer Outcome Not Healed Not Healed -Ulcer Cleansing Rinsed/ Rinsed/ Irrigated with Irrigated with Saline Saline -Foul Odor after Cleansing No No -Bioengineered Tissue No No -Bleeding Controlled with Pressure Pressure -Treatment Response Procedure Procedure Tolerated Well Tolerated Well -Debridement - Subq, 1st 20sq cm Yes Yes #4 RT GREAT TOE -Time 11:51 12:06 -Post Debridement (cm) - Length 0.1 0.1 0.1 -Post Debridement (cm) - Width 0.1 0.1 0.1 -Post Debridement (cm) - Depth 0.1 0.1 0.1 -Total Square (Post) (cm) 0.01 0.01 0.01 -Area of Debridement (cm) - Length 0.1 0.1 0.1 -Area of Debridement (cm) - Width 0.1 0.1 0.1 -Total Square (Area) (cm) 0.01 0.01 0.01 -Wound/Ulcer Outcome Not Healed Not Healed Not Healed -Bleeding Controlled with NA NA NA Pain Scale: 0-10 Numeric Is Patient Pain Free? Yes Yes Yes WC - Nurse 3 - General Ulcer D/C NN Start: 05/15/24 11:03 Freq: Status: Active Protocol: Activity Type Activity Date Activity User E-sign Co-sign Detail Recorded Client Recorded Date Recorded By Document 05/15/24 12:05 [id number] 05/15/24 12:05 GM Document 05/29/24 12:51 RB [id number] 05/29/24 12:52 RB Document 06/05/24 12:15 DL [id number] 06/05/24 12:17 DL 05/15/24 05/29/24 06/05/24 12:05 12:51 12:15 Wound Care Center Nurse 3 #5 R Heel -Ulcer Cleansing Rinsed/ Rinsed/ Irrigated with Irrigated with Saline Saline -Foul Odor after Cleansing No -Primary Dressing Applied Promogran Promogran Joelle Matter Joelle Matter -Primary Dressing Covered/Secured with Dry Gauze, Dry Gauze & Secured with Roll Gauze, Tape Secured with Tape -Promogran Joelle Matter 1 1 #4 RT GREAT TOE -Ulcer Cleansing Not Cleansed Rinsed/ Irrigated with Saline -Foul Odor after Cleansing No -Primary Dressing Covered/Secured with Dry Gauze & Dry Gauze, Dry Gauze, Roll Gauze, Secured with Secured with Secured with Tape Tape Tape Right -Tubular Bandage Single Layer Single Layer -Size of Tubigrip Used Size F Size F -Size F ($) 1 1 Treatment Response Procedure Procedure Tolerated Well Tolerated Well Pain Scale: 0-10 Numeric Is Patient Pain Free? Yes Yes Yes WC - Visit Discharge Discharge Condition Stable Stable Stable Ambulatory Status Ambulatory, Ambulatory, Ambulatory, Walker Walker Walker Transportation Private Auto Private Auto Private Auto Medication Reconcilliation completed & No provided to patient/care provider Clinical Summary of Care Provided Yes Assessment/Plan Assessment/Plan (1) Non-pressure chronic ulcer of other part of right foot with fat layer exposed: CODE(S): L97.512 - Non-pressure chronic ulcer of other part of right foot with fat layer exposed (2) Chronic ulcer of right heel with fat layer exposed: CODE(S): L97.412 - Non-pressure chronic ulcer of right heel and midfoot with fat layer exposed (3) Acute painful diabetic polyneuropathy: CODE(S): E11.42 - Type 2 diabetes mellitus with diabetic polyneuropathy (4) Type 2 diabetes mellitus with foot ulcer: CODE(S): E11.621 - Type 2 diabetes mellitus with foot ulcer; L97.509 - Non-pressure chronic ulcer of other part of unspecified foot with unspecified severity QUALIFIERS: Diabetes mellitus longwall foreman insulin use: with fpc use Qualified Code(s): E11.621 - Type 2 diabetes mellitus with foot ulcer; L97.509 - Non-pressure chronic ulcer of other part of unspecified foot with unspecified severity; Z79.4 - [facility] (current) use of insulin (5) Lymphedema: CODE(S): I89.0 - Lymphedema, not elsewhere classified (6) Hypertension: CODE(S): I10 - Essential (primary) hypertension QUALIFIERS: Hypertension type: primary hypertension Qualified Code(s): I10 - Essential (primary) hypertension (7) Debility: CODE(S): R53.81 - Other malaise (8) Lower extremity edema: CODE(S): R60.0 - Localized edema PLAN: Plan Patient seen and evaluated Pre-debridement: Hallux 0.1cm x 0.1 cm x 0.1cm ; Right Heel measuring 1.9 x 0.6 x 0.1 Ulceration did undergo debridement as noted in the clinical panel above. Right hallux distal tuft ulceration measures 0.1 cm x 0.1 cm x 0.1 cm and right posterior lateral heel ulceration measures 2.0 x 0.7 x 0.1. No signs of infection. Joelle and dry sterile dressing applied to right posterior heel ulceration. He is to change dressing daily. EpiFix graft #8 was applied to the right Hallux 05/01/24, currently past date of application. Protective dressing placed to the right hallux today over epithelializing skin. Discussed that he is developing continued pressure ulceration at the hallux again since his return to shoe gear as he continues to curl toes down during gait. Previous offloading padding remains in place to the plantar side of his diabetic insert. Will also continue to offload with crest padding to the Hallux. Site did decrease in size today to the right hallux vs previous visit but remains at risk due to continued pressure. Right posterior heel ulceration has improved with reduction in size versus previous visit Discussed continue supportive shoe gear with digital offloading pad in place to the plantar side of his diabetic insert to prevent hammering of the hallux which I believe is causing pressure and ulceration. Will continue offloading with crest pad once site has healed. Ulceration at hallux demonstrate pressure to the distal tuft but is healing with offloading. Right heel demonstrates epithelialized skin. Previously discussed possible surgical intervention for aiding in offloading of the hallux. He was approved for EpiFix graft for Right heel and has finished all 10 applications. He was approved for EpiFix for Right Hallux, past date for continued application. Discussed continued wearing of Tubigrip compression stockings until ulcerations have healed at which time he will change to bilateral compression stocking. Discussed continuing to elevate feet at all times of rest for edema control. Discussed adequate protein intake to continue to aid in wound healing. Florentin supplementation was recommended. Discussed proper diabetic diet in addition to the stated above to ensure adequate wound healing. Patient states that his sugars have been up but not above 200. does state he does eat things that he should not though. Recent visit with PCP demonstrates increase in weight. He has continued taking the instructed supplements for his neuropathy consisting of of complex B vitamin daily, magnesium 250 mg daily, alpha lipoic acid 300 mg daily, and 500 mg glutamine supplement. Discussed continuing to take it and allow time for the nerves to continue repair. Discussed signs and symptoms of infection. Discussed with the patient if he notices redness about the wound margins that continues to spread or moves up the leg, any purulent drainage from the wound site, increasing foul odor from the wound or if he experiences fever greater than 101 degree accompanied by nausea, vomiting, chills, that these are signs of a progressing infection and he should report to the ED for IV antibiotics and further evaluation. He and his voiced understanding of this today. The following work up and care recommendations were made: Dressing: Joelle dry sterile dressing right heel, change daily. Protective dry sterile dressing to hallux. Will continue offloading with diabetic inserts and Lal's extension offloading. Wash: Soap and water Tissue growth optimization: Joelle Offload: Elevating lower extremities at rest. Vascular: DP and PT pulses are weakly palpable with adequate capillary fill time. Do not feel that vascular status is affecting wound healing. Edema: Continue elevating lower extremities at all times of rest. Continue wearing Tubigrip compression stocking. Discussed eventual change to a standard prescription compression stocking once wounds have healed. Infection: No signs of infection. Wound cultures were taken given patient's prior history of recurrent bacterial infection at the sites. Pain: May take [id number] Tylenol for discomfort Host factors: DM type II with peripheral polyneuropathy, HTN, morbid obesity, lymphedema I answered all the patient's questions. To return to the wound healing center in 1 week or call sooner if the patient has any questions or concerns.
[2024-06-12 11:17] VITALS: BP 154/92; PULSE 75; RESP 18; TEMP 36.2
== END 2024-06-12 23:59 | disposition home or self-care (01) ==
LOC: WC 11:15
PROVIDERS: PCP Internal Medicine; Referring Provider Internal Medicine; Visit Provider Student in an Organized Health Care Education/Training Program
DX: E11.621 Type 2 diabetes mellitus with foot ulcer (principal); L97.512 Non-pressure chronic ulcer of other part of right foot with fat layer exposed; L97.412 Non-pressure chronic ulcer of right heel and midfoot with fat layer exposed; E11.42 Type 2 diabetes mellitus with diabetic polyneuropathy; Z79.4 Long term (current) use of insulin; E78.00 Pure hypercholesterolemia, unspecified; I89.0 Lymphedema, not elsewhere classified; I10 Essential (primary) hypertension; M79.89 Other specified soft tissue disorders; Z96.652 Presence of left artificial knee joint; Z79.82 Long term (current) use of aspirin; Z79.85 Long-term (current) use of injectable non-insulin antidiabetic drugs; Z79.01 Long term (current) use of anticoagulants; Z79.899 Other long term (current) drug therapy; Z86.711 Personal history of pulmonary embolism
CPT/HCPCS: 11042; 99213; G0463

== ENCOUNTER 2024-07-03 10:45 | Outpatient (RCR) | payer MEDICARE, BC, SELFPAY ==
[2024-06-13 00:09] VITALS: BP 109/90; PULSE 84; RESP 22; TEMP 36.5
[2024-06-19 11:08] VITALS: RESP 20; TEMP 36.3
--- NOTE | 2024-06-19 12:46 | PCM.WC.PN ---
History of Present Illness Date of Service: 06/19/24 Chief Complaint: Right heel ulcer and right hallux ulcer History of Wound: 68 year old male presents to the wound center for evaluation of his right heal ulcer. It started as a a pressure ulcer in February 2022 when he he was in TCU and it healed. It then became a blister right before his Left TKR surgery. He had his left knee replaced 07/14/22 at [facility]. 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 He also has a history of diabetes type II with peripheral polyneuropathy, HTN, lymphedema, hypercholesterolemia and PE that he is on Xerelto. Wound culture obtained on 08/30/22 which are positive for VRE, Kocuria kristinae and Corynebacterium striatum. He will completed the Linezolid. Wound culture obtained 06/20/23 which was positive for Staphylococcus pseudintermediu, Pseudomonas aeruginosa, Corynebacterium minutissiumum, and Anaerobic cocci. He was started on Levaquin and Flagyl. Foot xray 09/27/22 - Osteopenia with diffuse osteoarthritic changes. Diffuse soft tissue swelling with ossification of the distal Achilles tendon. No acute abnormality or evidence of erosive changes. Did undergo updated radiograph of the right foot 11/08/2023 with no noted changes from previous x-ray. This is a recurring ulceration to both distal medial tuft of the right hallux and posterior lateral heel. He states both sites had scabbed up and he was previously discharged however scabs have later broken down with re-ulceration. Wound care -currently applying Magalis daily and is offloading and surgical shoe to the right foot. He denies any fever, chills, nausea and vomiting. Denies further complaints. Subjective Subjective This is a 68-year-old male who presents to the wound care center for continued follow-up of right hallux distal tuft ulceration and right posterior lateral calcaneal ulceration. Patient reports history of recurring ulcerations of these 2 specific sites over the last several years. Continues to offload Hallux site and states continued good standing. States he is wearing offloading foam boot in bed. Continues care for right heel ulceration which had reopened but notes improvement with smaller size. States sugars are controlled. Denies constitutional symptoms. Denies further complaints. Objective Data Objective Data Vital Signs: Vital Signs Temp Pulse Resp BP O2 Del Method 97.4 F L 84 20 H 109/90 H Room Air 06/19/24 11:08 06/13/24 00:09 06/19/24 11:08 06/13/24 00:09 06/19/24 11:08 Oxygen Delivery Method Room Air Physical Exam Const alert, oriented x3 and no apparent distress General Appearance: cooperative Nutritional Appearance: morbidly obese HEENT normocephalic Eyes General Eye: normal appearance of both eyes Neck General: normal visual inspection Lymph Lymphatic: no lymphadenopathy noted and lymphedema Resp normal respiratory effort Cardio regular rate and regular rhythm Extremity Extremity Narrative: Vascular: DP and PT pulses weakly palpable. CFT less than 5 seconds to the digits. Normal temperature gradient. Hair growth is absent to digits/foot. Neurologic: Gross sensation intact. Decreased light touch sensation. Absent protective sensation tested with 5.07g Sells Zen monofilament. Lack of protective sensation consistent with diabetic peripheral polyneuropathy Dermatologic: There is varicosities noted to the lower extremity with subsequent edema about foot and LIANNA ankle. There is full thickness ulceration to the distal tuft of the Hallux, which is improved and stable with epithelialized skin and nearing closure. There is a full thickness ulceration to the posterior lateral heel ulceration with healthy granular tissue. No signs of infection. Musculoskeletal: Muscle strength 5 of 5 age-appropriate. Decreased range of motion of the ankle joint in dorsiflexion with the knee extended without pain or crepitus. Decreased range of motion of the first metatarsophalangeal joint without pain or crepitus. There is hammertoe deformity of digits 1 through 5. Skin no rashes or lesions noted, skin turgor normal and no jaundice Neuro moves all extremities Debridement Note Debridement Note Wound debrided: Right posterior lateral heel Laterality: Right Wound Grade/Stage: Gomez stage I Type of Debridement: Excisional debridement Anesthesia Used: 5% Lidocaine Gel Depth: Down to and including healthy tissue and in the subcutaneous layer Percentage of wound debrided: 100 Instrument Used: 5mm curette Tissue Removed: Fibrous, devitalized subcutaneous, biofilm, slough Severity: Fat Layer Exposed Amount of bleeding with debridement: Mild Bleeding Controlled with: Compression and gauze Patient tolerated procedure: Patient tolerated procedure well Post-Debridement Measurements and Additional Note: Post-Debridement Measurements/Treatment WC - Nurse 1 - General Ulcer Assessment Start: 06/19/24 11:08 Freq: Status: Active Protocol: NELL Activity Type Activity Date Activity User E-sign Co-sign Detail Recorded Client Recorded Date Recorded By Document 06/19/24 11:08 JOSE [id number] 06/19/24 11:15 KW 06/19/24 11:08 WC - Today's Visit Information Type of service Follow-up Visit (Physician/WRAPPER OPENER ) Arrival Mode Ambulatory, Walker Accompanied by Patient Identification Verified (Name & Yes ) Vital Signs Temperature (97.8 F-99.1 F) 97.4 F L Temperature Source Temporal Respiratory Rate (12-18) 20 H Respiratory rate source Observation Oxygen Delivery Method Room Air History Since Last Visit- (Skip if this is Patient's initial visit) Have you changed medications since your No last visit? Any new allergies or adverse reactions No Had a fall/change in ADL's that may No increase risk of falls Signs or symptoms of abuse and/or No neglect since last visit Have you been in the hospital since your No last visit? Has dressing in place as prescribed Yes Has compression in place as prescribed Yes Has offloadiing in place as prescribed Yes Experienced any changes in pain level or No management Left Footwear Regular Shoe Right Footwear Surgical Shoe with pressure relief insole Pain Scale: 0-10 Numeric Is Patient Pain Free? Yes - Nurse 1 - General Ulcer Measurement Start: 06/19/24 11:08 Freq: Status: Active Protocol: Activity Type Activity Date Activity User E-sign Co-sign Detail Recorded Client Recorded Date Recorded By Document 06/19/24 11:08 JOSE [id number] 06/19/24 11:15 KW 06/19/24 11:08 Wound Center Nurse 1 #5 R Heel -Current Size (cm) - Length 0.8 -Current Size (cm) - Width 0.5 -Current Size (cm) - Depth 0.1 -Total Square Cm 0.40 -Date of Last Picture (Recall this 06/19/24 field) -Exudate Amt Small -Exudate Type Serosanguineous -Wound Margin Distinct, Outline Attached -Granulation Amt Large (67-100%) -Granulation Quality Red -Texture (Lianna-wound Skin Appearance) Assessed -Moisture (Lianna-wound Skin Appearance) Assessed -Color (Lianna-wound Skin Appearance) Assessed -Temperature (Lianna-wound Skin No Abnormality Appearance) (Pt Warm) -Tenderness on Palpation (Lianna-wound No Skin Appearance) -Ulcer Cleansing Rinsed/ Irrigated with Saline -Foul Odor after Cleansing No -Anesthetic Used 5% Lidocaine Gel #4 RT GREAT TOE -Current Size (cm) - Length 0.1 -Current Size (cm) - Width 0.1 -Current Size (cm) - Depth 0 -Total Square Cm 0.01 -Texture (Lianna-wound Skin Appearance) Assessed -Moisture (Lianna-wound Skin Appearance) Assessed -Color (Lianna-wound Skin Appearance) Assessed -Temperature (Lianna-wound Skin No Abnormality Appearance) (Pt Warm) -Tenderness on Palpation (Lianna-wound No Skin Appearance) Right Calf (cm) 47.5 Right Ankle (cm) 29.7 WC - Nurse 2 - General Ulcer CM Notes Start: 06/19/24 11:08 Freq: Status: Active Protocol: Activity Type Activity Date Activity User E-sign Co-sign Detail Recorded Client Recorded Date Recorded By Document 06/19/24 11:31 [facility] [id number] 06/19/24 11:35 [facility] 06/19/24 11:31 Wound Center Nurse 2 #5 R Heel -Time 11:31 -Correct Patient Yes -Correct Side, Site, Position Yes -Correct Procedure Yes -Procedure Performed Yes -Type of Procedure Debridement -Clinical Debridement Subcutaneous -Tissue Removed Subcutaneous -Post Debridement (cm) - Length 1.8 -Post Debridement (cm) - Width 0.9 -Post Debridement (cm) - Depth 0.1 -Total Square (Post) (cm) 1.62 -Area of Debridement (cm) - Length 1.8 -Area of Debridement (cm) - Width 0.9 -Total Square (Area) (cm) 1.62 -Tunneling No -Undermining/Tunneling No -Circular Undermining No -Wound/Ulcer Outcome Not Healed -Ulcer Cleansing Rinsed/ Irrigated with Saline -Foul Odor after Cleansing No -Bioengineered Tissue No -Bleeding Controlled with Pressure -Treatment Response Procedure Tolerated Well -Debridement - Subq, 1st 20sq cm Yes #4 RT GREAT TOE -Time 11:32 -Post Debridement (cm) - Length 0.1 -Post Debridement (cm) - Width 0.1 -Post Debridement (cm) - Depth 0.1 -Total Square (Post) (cm) 0.01 -Area of Debridement (cm) - Length 0.1 -Area of Debridement (cm) - Width 0.1 -Total Square (Area) (cm) 0.01 -Tunneling No -Undermining/Tunneling No -Circular Undermining No -Wound/Ulcer Outcome Not Healed Pain Scale: 0-10 Numeric Is Patient Pain Free? Yes WC - Nurse 3 - General Ulcer D/C NN Start: 06/19/24 11:08 Freq: Status: Active Protocol: Activity Type Activity Date Activity User E-sign Co-sign Detail Recorded Client Recorded Date Recorded By Document 06/19/24 11:42 [facility] [id number] 06/19/24 11:44 [facility] 06/19/24 11:42 Wound Care Center Nurse 3 #5 R Heel -Ulcer Cleansing Rinsed/ Irrigated with Saline -Foul Odor after Cleansing No -Other Dressing magalis -Primary Dressing Covered/Secured with Dry Gauze & Roll Gauze, Secured with Tape #4 RT GREAT TOE -Primary Dressing Covered/Secured with Dry Gauze, Secured with Tape Right -Other reapplied pts single layer size f Treatment Response Procedure Tolerated Well Pain Scale: 0-10 Numeric Is Patient Pain Free? Yes WC - Visit Discharge Discharge Condition Stable Ambulatory Status Ambulatory, Walker Transportation Private Auto Accompanied by Assessment/Plan Assessment/Plan (1) Non-pressure chronic ulcer of other part of right foot with fat layer exposed: CODE(S): L97.512 - Non-pressure chronic ulcer of other part of right foot with fat layer exposed (2) Chronic ulcer of right heel with fat layer exposed: CODE(S): L97.412 - Non-pressure chronic ulcer of right heel and midfoot with fat layer exposed (3) Acute painful diabetic polyneuropathy: CODE(S): E11.42 - Type 2 diabetes mellitus with diabetic polyneuropathy (4) Type 2 diabetes mellitus with foot ulcer: CODE(S): E11.621 - Type 2 diabetes mellitus with foot ulcer; L97.509 - Non-pressure chronic ulcer of other part of unspecified foot with unspecified severity QUALIFIERS: Diabetes mellitus detention insulin use: with ict quality assurance engineer use Qualified Code(s): E11.621 - Type 2 diabetes mellitus with foot ulcer; L97.509 - Non-pressure chronic ulcer of other part of unspecified foot with unspecified severity; Z79.4 - prison (current) use of insulin (5) Lymphedema: CODE(S): I89.0 - Lymphedema, not elsewhere classified (6) Lower extremity edema: CODE(S): R60.0 - Localized edema (7) Debility: CODE(S): R53.81 - Other malaise PLAN: Plan Patient seen and evaluated Pre-debridement: Hallux 0.1cm x 0.1 cm x 0.1cm ; Right Heel measuring 1.6 x 0.5 x 0.1 Ulceration did undergo debridement as noted in the clinical panel above. Right hallux distal tuft ulceration measures 0.1 cm x 0.1 cm x 0.1 cm and right posterior lateral heel ulceration measures 1.7 x 0.6 x 0.1. No signs of infection. Magalis and dry sterile dressing applied to right posterior heel ulceration. He is to change dressing daily. EpiFix graft #8 was applied to the right Hallux 05/01/24, currently past date of continued application. Protective dressing placed to the right hallux today over epithelializing skin. Discussed that he is developing continued pressure ulceration at the hallux again since his return to shoe gear as he continues to curl toes down during gait. Previous offloading padding remains in place to the plantar side of his diabetic insert. Will also continue to offload with crest padding to the Hallux. Site remains stable today to the right hallux vs previous visit but remains at risk due to continued pressure. Right posterior heel ulceration has improved with reduction in size versus previous visit Discussed continue supportive shoe gear with digital offloading pad in place to the plantar side of his diabetic insert to prevent hammering of the hallux which I believe is causing pressure and ulceration. Will continue offloading with crest pad once site has healed. Ulceration at hallux demonstrate pressure to the distal tuft but is healing with offloading. Right heel demonstrates epithelialized skin. Previously discussed possible surgical intervention for aiding in offloading of the hallux. He was approved for EpiFix graft for Right heel and has finished all 10 applications. He was approved for EpiFix for Right Hallux, past date for continued application. Discussed continued wearing of Tubigrip compression stockings until ulcerations have healed at which time he will change to bilateral compression stocking. Discussed continuing to elevate feet at all times of rest for edema control. Discussed adequate protein intake to continue to aid in wound healing. Florentin supplementation was recommended. Discussed proper diabetic diet in addition to the stated above to ensure adequate wound healing. Patient states that his sugars have been up but not above 200. does state he does eat things that he should not though. Recent visit with PCP demonstrates increase in weight. He has continued taking the instructed supplements for his neuropathy consisting of of complex B vitamin daily, magnesium 250 mg daily, alpha lipoic acid 300 mg daily, and 500 mg glutamine supplement. Discussed continuing to take it and allow time for the nerves to continue repair. Discussed signs and symptoms of infection. Discussed with the patient if he notices redness about the wound margins that continues to spread or moves up the leg, any purulent drainage from the wound site, increasing foul odor from the wound or if he experiences fever greater than 101 degree accompanied by nausea, vomiting, chills, that these are signs of a progressing infection and he should report to the ED for IV antibiotics and further evaluation. He and his voiced understanding of this today. The following work up and care recommendations were made: Dressing: Magalis dry sterile dressing right heel, change daily. Protective dry sterile dressing to hallux. Will continue offloading with diabetic inserts and Lal's extension offloading. Wash: Soap and water Tissue growth optimization: Magalis Offload: Elevating lower extremities at rest. Vascular: DP and PT pulses are weakly palpable with adequate capillary fill time. Do not feel that vascular status is affecting wound healing. Edema: Continue elevating lower extremities at all times of rest. Continue wearing Tubigrip compression stocking. Discussed eventual change to a standard prescription compression stocking once wounds have healed. Infection: No signs of infection. Wound cultures were taken given patient's prior history of recurrent bacterial infection at the sites. Pain: May take [id number] Tylenol for discomfort Host factors: DM type II with peripheral polyneuropathy, HTN, morbid obesity, lymphedema I answered all the patient's questions. To return to the wound healing center in 1 week or call sooner if the patient has any questions or concerns.
[2024-06-26 10:43] VITALS: BP 121/68; PULSE 84; RESP 20; TEMP 36.9
--- NOTE | 2024-06-26 12:22 | PCM.WC.PN ---
History of Present Illness Date of Service: 06/26/24 Chief Complaint: Right heel ulcer and right hallux ulcer History of Wound: 68 year old male presents to the wound center for evaluation of his right heal ulcer. It started as a a pressure ulcer in February 2022 when he he was in TCU and it healed. It then became a blister right before his Left TKR surgery. He had his left knee replaced 07/14/22 at [facility]. 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 He also has a history of diabetes type II with peripheral polyneuropathy, HTN, lymphedema, hypercholesterolemia and PE that he is on Xerelto. Wound culture obtained on 08/30/22 which are positive for VRE, Kocuria kristinae and Corynebacterium striatum. He will completed the Linezolid. Wound culture obtained 06/20/23 which was positive for Staphylococcus pseudintermediu, Pseudomonas aeruginosa, Corynebacterium minutissiumum, and Anaerobic cocci. He was started on Levaquin and Flagyl. Foot xray 09/27/22 - Osteopenia with diffuse osteoarthritic changes. Diffuse soft tissue swelling with ossification of the distal Achilles tendon. No acute abnormality or evidence of erosive changes. Did undergo updated radiograph of the right foot 11/08/2023 with no noted changes from previous x-ray. This is a recurring ulceration to both distal medial tuft of the right hallux and posterior lateral heel. He states both sites had scabbed up and he was previously discharged however scabs have later broken down with re-ulceration. Wound care -currently applying Magalis daily and is offloading and surgical shoe to the right foot. He denies any fever, chills, nausea and vomiting. Denies further complaints. Subjective Subjective This is a 68-year-old male who presents to the wound care center for continued follow-up of right hallux distal tuft ulceration and right posterior lateral calcaneal ulceration. Patient reports history of recurring ulcerations of these 2 specific sites over the last several years. Continues to offload Hallux site and states continued good standing. States he is continuing to wearing offloading foam boot in bed. Continues care for right heel ulceration which continues to improve with decreased size. States sugars are controlled. Denies constitutional symptoms. Denies further complaints. Objective Data Objective Data Vital Signs: Vital Signs Temp Pulse Resp BP O2 Del Method 98.4 F 84 20 H 121/68 H Room Air 06/26/24 10:43 06/26/24 10:43 06/26/24 10:43 06/26/24 10:43 06/19/24 11:08 Oxygen Delivery Method Room Air Physical Exam Const alert, oriented x3 and no apparent distress General Appearance: cooperative Nutritional Appearance: morbidly obese HEENT normocephalic Eyes General Eye: normal appearance of both eyes Neck General: normal visual inspection Lymph Lymphatic: no lymphadenopathy noted and lymphedema Resp normal respiratory effort Cardio regular rate and regular rhythm Extremity Extremity Narrative: Vascular: DP and PT pulses weakly palpable. CFT less than 5 seconds to the digits. Normal temperature gradient. Hair growth is absent to digits/foot. Neurologic: Gross sensation intact. Decreased light touch sensation. Absent protective sensation tested with 5.07g Mchenry Zen monofilament. Lack of protective sensation consistent with diabetic peripheral polyneuropathy Dermatologic: There is varicosities noted to the lower extremity with subsequent edema about foot and LIANNA ankle. There is full thickness ulceration to the distal tuft of the Hallux, which is improved and stable with epithelialized skin and nearing closure. There is a full thickness ulceration to the posterior lateral heel ulceration with healthy granular tissue. No signs of infection. Musculoskeletal: Muscle strength 5 of 5 age-appropriate. Decreased range of motion of the ankle joint in dorsiflexion with the knee extended without pain or crepitus. Decreased range of motion of the first metatarsophalangeal joint without pain or crepitus. There is hammertoe deformity of digits 1 through 5. Skin no rashes or lesions noted, skin turgor normal and no jaundice Neuro moves all extremities Debridement Note Debridement Note Wound debrided: Posterior lateral right heel Laterality: Right Wound Grade/Stage: Gomez stage I Type of Debridement: Excisional debridement Anesthesia Used: 5% Lidocaine Gel Depth: Down to and including healthy tissue and in the subcutaneous layer Percentage of wound debrided: 100 Instrument Used: #15 blade Tissue Removed: Fibrous, devitalized subcutaneous, biofilm, slough Severity: Fat Layer Exposed Amount of bleeding with debridement: Mild Bleeding Controlled with: Compression and gauze Patient tolerated procedure: Patient tolerated procedure well Post-Debridement Measurements and Additional Note: Post-Debridement Measurements/Treatment WC - Nurse 1 - General Ulcer Assessment Start: 06/19/24 11:08 Freq: Status: Active Protocol: NELL Activity Type Activity Date Activity User E-sign Co-sign Detail Recorded Client Recorded Date Recorded By Document 06/19/24 11:08 KW [id number] 06/19/24 11:15 KW Document 06/26/24 10:43 DL [id number] 06/26/24 10:51 DL 06/19/24 06/26/24 11:08 10:43 WC - Today's Visit Information Type of service Follow-up Visit Follow-up Visit (Physician/CAREER RESOURCE SPECIALIST (Physician/CAREER RESOURCE SPECIALIST ) ) Arrival Mode Ambulatory, Ambulatory, Walker Walker Transfer Assistance None Accompanied by Patient Identification Verified (Name & Yes Yes ) Patient Requires Transmission-Based No Precautions Vital Signs Temperature (97.8 F-99.1 F) 97.4 F L 98.4 F Temperature Source Temporal Temporal Pulse Rate (60-100) 84 Pulse Location Monitor Respiratory Rate (12-18) 20 H 20 H Respiratory rate source Observation Observation Oxygen Delivery Method Room Air Blood Pressure (90/60-120/80) 121/68 H Blood Pressure Mean (mm Hg) 85 Source Monitor History Since Last Visit- (Skip if this is Patient's initial visit) Have you changed medications since your No No last visit? Any new allergies or adverse reactions No No Had a fall/change in ADL's that may No No increase risk of falls Signs or symptoms of abuse and/or No No neglect since last visit Have you been in the hospital since your No No last visit? Has dressing in place as prescribed Yes Yes Has compression in place as prescribed Yes Yes Has offloadiing in place as prescribed Yes Yes Experienced any changes in pain level or No No management Left Footwear Regular Shoe Regular Shoe Right Footwear Surgical Shoe Surgical Shoe with pressure with pressure relief insole relief insole Pain Scale: 0-10 Numeric Is Patient Pain Free? Yes Yes - Nurse 1 - General Ulcer Measurement Start: 06/19/24 11:08 Freq: Status: Active Protocol: Activity Type Activity Date Activity User E-sign Co-sign Detail Recorded Client Recorded Date Recorded By Document 06/19/24 11:08 KW [id number] 06/19/24 11:15 KW Document 06/26/24 10:43 DL [id number] 06/26/24 10:51 DL 06/19/24 06/26/24 11:08 10:43 Wound Center Nurse 1 #4 RT GREAT TOE -Current Size (cm) - Length 0.1 -Current Size (cm) - Width 0.1 -Current Size (cm) - Depth 0 -Total Square Cm 0.01 -Texture (Lianna-wound Skin Appearance) Assessed -Moisture (Lianna-wound Skin Appearance) Assessed -Color (Lianna-wound Skin Appearance) Assessed -Temperature (Lianna-wound Skin No Abnormality Appearance) (Pt Warm) -Tenderness on Palpation (Lianna-wound No Skin Appearance) #5 R Heel -Current Size (cm) - Length 0.8 0.1 -Current Size (cm) - Width 0.5 0.1 -Current Size (cm) - Depth 0.1 0.1 -Total Square Cm 0.40 0.01 -Date of Last Picture (Recall this 06/19/24 field) -Photo Taken Yes -Exudate Amt Small None Present -Exudate Type Serosanguineous -Wound Margin Distinct, Distinct, Outline Outline Attached Attached -Granulation Amt Large (67-100%) Medium (34-66%) -Granulation Quality Red Pale,[place] -Necrosis Amt Medium (34-66%) -Necrotic Tissue Type Adherent Slough -Structure Exposed N/A -Texture (Lianna-wound Skin Appearance) Assessed Scarring -Moisture (Lianna-wound Skin Appearance) Assessed Maceration -Color (Lianna-wound Skin Appearance) Assessed No Abnormality -Temperature (Lianna-wound Skin No Abnormality No Abnormality Appearance) (Pt Warm) (Pt Warm) -Tenderness on Palpation (Lianna-wound No Skin Appearance) -Ulcer Cleansing Rinsed/ Soap and Water Irrigated with Saline -Foul Odor after Cleansing No No -Anesthetic Used 5% Lidocaine 5% Lidocaine Gel Gel Right Calf (cm) 47.5 49.8 Right Ankle (cm) 29.7 28.8 WC - Nurse 2 - General Ulcer CM Notes Start: 06/19/24 11:08 Freq: Status: Active Protocol: Activity Type Activity Date Activity User E-sign Co-sign Detail Recorded Client Recorded Date Recorded By Document 06/19/24 11:31 BM [id number] 06/19/24 11:35 BM Document 06/26/24 10:55 [facility] [id number] 06/26/24 10:58 BMF 06/19/24 06/26/24 11:31 10:55 Wound Center Nurse 2 #4 RT GREAT TOE -Time 11:32 -Post Debridement (cm) - Length 0.1 -Post Debridement (cm) - Width 0.1 -Post Debridement (cm) - Depth 0.1 -Total Square (Post) (cm) 0.01 -Area of Debridement (cm) - Length 0.1 -Area of Debridement (cm) - Width 0.1 -Total Square (Area) (cm) 0.01 -Tunneling No -Undermining/Tunneling No -Circular Undermining No -Wound/Ulcer Outcome Not Healed #5 R Heel -Time 11:31 10:55 -Correct Patient Yes Yes -Correct Side, Site, Position Yes Yes -Correct Procedure Yes Yes -Procedure Performed Yes Yes -Type of Procedure Debridement Debridement -Clinical Debridement Subcutaneous Subcutaneous -Tissue Removed Subcutaneous Subcutaneous -Post Debridement (cm) - Length 1.8 0.8 -Post Debridement (cm) - Width 0.9 0.3 -Post Debridement (cm) - Depth 0.1 0.1 -Total Square (Post) (cm) 1.62 0.24 -Area of Debridement (cm) - Length 1.8 0.8 -Area of Debridement (cm) - Width 0.9 0.3 -Total Square (Area) (cm) 1.62 0.24 -Tunneling No No -Undermining/Tunneling No No -Circular Undermining No No -Wound/Ulcer Outcome Not Healed Not Healed -Ulcer Cleansing Rinsed/ Rinsed/ Irrigated with Irrigated with Saline Saline -Foul Odor after Cleansing No No -Bioengineered Tissue No No -Bleeding Controlled with Pressure Pressure -Treatment Response Procedure Procedure Tolerated Well Tolerated Well -Debridement - Subq, 1st 20sq cm Yes Yes Pain Scale: 0-10 Numeric Is Patient Pain Free? Yes Yes - Nurse 3 - General Ulcer D/C NN Start: 06/19/24 11:08 Freq: Status: Active Protocol: Activity Type Activity Date Activity User E-sign Co-sign Detail Recorded Client Recorded Date Recorded By Document 06/19/24 11:42 [facility] [id number] 06/19/24 11:44 BM Document 06/26/24 11:09 [facility] [id number] 06/26/24 11:10 BMF 06/19/24 06/26/24 11:42 11:09 Wound Care Center Nurse 3 #4 RT GREAT TOE -Primary Dressing Covered/Secured with Dry Gauze, Secured with Tape #5 R Heel -Ulcer Cleansing Rinsed/ Rinsed/ Irrigated with Irrigated with Saline Saline -Foul Odor after Cleansing No No -Other Dressing magalis magalis -Primary Dressing Covered/Secured with Dry Gauze & Dry Gauze, Roll Gauze, Secured with Secured with Tape Tape Right -Tubular Bandage Single Layer -Size of Tubigrip Used Size F -Size F ($) 1 -Other reapplied pts single layer size f Treatment Response Procedure Procedure Tolerated Well Tolerated Well Pain Scale: 0-10 Numeric Is Patient Pain Free? Yes Yes WC - Visit Discharge Discharge Condition Stable Stable Ambulatory Status Ambulatory, Ambulatory, Walker Walker Transportation Private Auto Private Auto Accompanied by Assessment/Plan Assessment/Plan (1) Non-pressure chronic ulcer of other part of right foot with fat layer exposed: CODE(S): L97.512 - Non-pressure chronic ulcer of other part of right foot with fat layer exposed (2) Chronic ulcer of right heel with fat layer exposed: CODE(S): L97.412 - Non-pressure chronic ulcer of right heel and midfoot with fat layer exposed (3) Acute painful diabetic polyneuropathy: CODE(S): E11.42 - Type 2 diabetes mellitus with diabetic polyneuropathy (4) Type 2 diabetes mellitus with foot ulcer: CODE(S): E11.621 - Type 2 diabetes mellitus with foot ulcer; L97.509 - Non-pressure chronic ulcer of other part of unspecified foot with unspecified severity QUALIFIERS: Diabetes mellitus terminal manager insulin use: with assisted use Qualified Code(s): E11.621 - Type 2 diabetes mellitus with foot ulcer; L97.509 - Non-pressure chronic ulcer of other part of unspecified foot with unspecified severity; Z79.4 - terminal manager (current) use of insulin (5) Lymphedema: CODE(S): I89.0 - Lymphedema, not elsewhere classified (6) Lower extremity edema: CODE(S): R60.0 - Localized edema (7) Debility: CODE(S): R53.81 - Other malaise PLAN: Plan Patient seen and evaluated Pre-debridement: Hallux 0.1cm x 0.1 cm x 0.1cm ; Right Heel measuring 0.7 x 0.2 x 0.1 Ulceration did undergo debridement as noted in the clinical panel above. Right hallux distal tuft ulceration measures 0.1 cm x 0.1 cm x 0.1 cm and right posterior lateral heel ulceration measures 0.8 x 0.3 x 0.1. No signs of infection. Magalis and dry sterile dressing applied to right posterior heel ulceration. He is to change dressing daily. EpiFix graft #8 last applied to the right Hallux 05/01/24, currently past date of continued application. Protective dressing placed to the right hallux today over epithelializing skin. Discussed that he is developing continued pressure ulceration at the hallux again since his return to shoe gear as he continues to curl toes down during gait. Previous offloading padding remains in place to the plantar side of his diabetic insert. Will also continue to offload with crest padding to the Hallux. Site remains stable today to the right hallux vs previous visit but remains at risk due to continued pressure. Right posterior heel ulceration continues improvement with reduction in size versus previous visit Discussed continue supportive shoe gear with digital offloading pad in place to the plantar side of his diabetic insert to prevent hammering of the hallux which I believe is causing pressure and ulceration. Will continue offloading with crest pad once site has healed. Ulceration at hallux demonstrate pressure to the distal tuft but is healing with offloading. Right heel demonstrates epithelialized skin. Previously discussed possible surgical intervention for aiding in offloading of the hallux. He was approved for EpiFix graft for Right heel and has finished all 10 applications. He was approved for EpiFix for Right Hallux, past date for continued application. Discussed continued wearing of Tubigrip compression stockings until ulcerations have healed at which time he will change to bilateral compression stocking. Discussed continuing to elevate feet at all times of rest for edema control. Discussed adequate protein intake to continue to aid in wound healing. Florentin supplementation was recommended. Discussed proper diabetic diet in addition to the stated above to ensure adequate wound healing. Patient states that his sugars have been up but not above 200. does state he does eat things that he should not though. Recent visit with PCP demonstrates increase in weight. He has continued taking the instructed supplements for his neuropathy consisting of of complex B vitamin daily, magnesium 250 mg daily, alpha lipoic acid 300 mg daily, and 500 mg glutamine supplement. Discussed continuing to take it and allow time for the nerves to continue repair. Discussed signs and symptoms of infection. Discussed with the patient if he notices redness about the wound margins that continues to spread or moves up the leg, any purulent drainage from the wound site, increasing foul odor from the wound or if he experiences fever greater than 101 degree accompanied by nausea, vomiting, chills, that these are signs of a progressing infection and he should report to the ED for IV antibiotics and further evaluation. He and his voiced understanding of this today. The following work up and care recommendations were made: Dressing: [place]lis dry sterile dressing right heel, change daily. Protective dry sterile dressing to hallux. Will continue offloading with diabetic inserts and Lal's extension offloading. Wash: Soap and water Tissue growth optimization: Magalis Offload: Elevating lower extremities at rest. Vascular: DP and PT pulses are weakly palpable with adequate capillary fill time. Do not feel that vascular status is affecting wound healing. Edema: Continue elevating lower extremities at all times of rest. Continue wearing Tubigrip compression stocking. Discussed eventual change to a standard prescription compression stocking once wounds have healed. Infection: No signs of infection. Wound cultures were taken given patient's prior history of recurrent bacterial infection at the sites. Pain: May take [id number] Tylenol for discomfort Host factors: DM type II with peripheral polyneuropathy, HTN, morbid obesity, lymphedema I answered all the patient's questions. To return to the wound healing center in 1 week or call sooner if the patient has any questions or concerns.
[2024-07-03 10:48] VITALS: BP 170/93; PULSE 79; RESP 20; TEMP 36.4
--- NOTE | 2024-07-03 11:27 | PN.PCM_ITS ---
History of Present Illness Date of Service: 07/03/24 Chief Complaint: Right heel ulcer and right hallux ulcer History of Wound: 68 year old male presents to the wound center for evaluation of his right heal ulcer. It started as a a pressure ulcer in February 2022 when he he was in TCU and it healed. It then became a blister right before his Left TKR surgery. He had his left knee replaced 07/14/22 at [facility]. 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 He also has a history of diabetes type II with peripheral polyneuropathy, HTN, lymphedema, hypercholesterolemia and PE that he is on Xerelto. Wound culture obtained on 08/30/22 which are positive for VRE, Kocuria kristinae and Corynebacterium striatum. He will completed the Linezolid. Wound culture obtained 06/20/23 which was positive for Staphylococcus pseudintermediu, Pseudomonas aeruginosa, Corynebacterium minutissiumum, and Anaerobic cocci. He was started on Levaquin and Flagyl. Foot xray 09/27/22 - Osteopenia with diffuse osteoarthritic changes. Diffuse soft tissue swelling with ossification of the distal Achilles tendon. No acute abnormality or evidence of erosive changes. Did undergo updated radiograph of the right foot 11/08/2023 with no noted changes from previous x-ray. This is a recurring ulceration to both distal medial tuft of the right hallux and posterior lateral heel. He states both sites had scabbed up and he was previously discharged however scabs have later broken down with re-ulceration. Wound care -currently applying Magalis daily and is offloading and surgical shoe to the right foot. He denies any fever, chills, nausea and vomiting. Denies further complaints. Subjective Subjective This is a 68-year-old male who presents to the wound care center for continued follow-up of right hallux distal tuft ulceration and right posterior lateral calcaneal ulceration. Patient reports history of recurring ulcerations of these 2 specific sites over the last several years. Continues to offload Hallux site and remains in good standing. Continues wearing offloading foam boot in bed. Continues care for right heel ulceration with Magalis daily to ulceration site. He does report a superficial skin tear of of the site upon changing of dressing yesterday. States sugars are controlled. Denies constitutional symptoms. Denies further complaints. Objective Data Objective Data Vital Signs: Vital Signs Temp Pulse Resp BP O2 Del Method 97.5 F L 79 20 H 170/93 H Room Air 07/03/24 10:48 07/03/24 10:48 07/03/24 10:48 07/03/24 10:48 06/19/24 11:08 Oxygen Delivery Method Room Air Physical Exam Const alert, oriented x3 and no apparent distress General Appearance: cooperative Nutritional Appearance: morbidly obese HEENT normocephalic Eyes General Eye: normal appearance of both eyes Neck General: normal visual inspection Lymph Lymphatic: no lymphadenopathy noted and lymphedema Resp normal respiratory effort Cardio regular rate and regular rhythm Extremity Extremity Narrative: Vascular: DP and PT pulses weakly palpable. CFT less than 5 seconds to the digits. Normal temperature gradient. Hair growth is absent to digits/foot. Neurologic: Gross sensation intact. Decreased light touch sensation. Absent protective sensation tested with 5.07g [place] Zen monofilament. Lack of protective sensation consistent with diabetic peripheral polyneuropathy Dermatologic: There is varicosities noted to the lower extremity with subsequent edema about foot and LIANNA ankle. Distal Hallux tuft ulceration has epithelialized skin with small fissure. There is a full thickness ulceration to the posterior lateral heel ulceration with healthy granular tissue, which is improving. No signs of infection. Musculoskeletal: Muscle strength 5 of 5 age-appropriate. Decreased range of motion of the ankle joint in dorsiflexion with the knee extended without pain or crepitus. Decreased range of motion of the first metatarsophalangeal joint without pain or crepitus. There is hammertoe deformity of digits 1 through 5. Skin no rashes or lesions noted, skin turgor normal and no jaundice Neuro moves all extremities Debridement Note Debridement Note Wound debrided: Right posterior lateral heel Laterality: Right Wound Grade/Stage: Gomez stage I Type of Debridement: Excisional debridement Anesthesia Used: 5% Lidocaine Gel Depth: Down to and including healthy tissue and in the subcutaneous layer Percentage of wound debrided: 100 Instrument Used: #15 blade Tissue Removed: Fibrous, devitalized subcutaneous, biofilm, slough Severity: Fat Layer Exposed Amount of bleeding with debridement: Mild Bleeding Controlled with: Compression and gauze Patient tolerated procedure: Patient tolerated procedure well Post-Debridement Measurements and Additional Note: Post-Debridement Measurements/Treatment WC - Nurse 1 - General Ulcer Assessment Start: 06/19/24 11:08 Freq: Status: Active Protocol: NELL Activity Type Activity Date Activity User E-sign Co-sign Detail Recorded Client Recorded Date Recorded By Document 06/19/24 11:08 KW [id number] 06/19/24 11:15 KW Document 06/26/24 10:43 DL [id number] 06/26/24 10:51 DL Document 07/03/24 10:48 DL [id number] 07/03/24 10:54 DL 06/19/24 06/26/24 07/03/24 11:08 10:43 10:48 WC - Today's Visit Information Type of service Follow-up Visit Follow-up Visit Follow-up Visit (Physician/WAREHOUSE ANALYST (Physician/WAREHOUSE ANALYST (Physician/WAREHOUSE ANALYST ) ) ) Arrival Mode Ambulatory, Ambulatory, Ambulatory, Walker Walker Walker Transfer Assistance None None Accompanied by Patient Identification Verified (Name & Yes Yes Yes ) Patient Requires Transmission-Based No No Precautions Vital Signs Temperature (97.8 F-99.1 F) 97.4 F L 98.4 F 97.5 F L Temperature Source Temporal Temporal Temporal Pulse Rate (60-100) 84 79 Pulse Location Monitor Monitor Respiratory Rate (12-18) 20 H 20 H 20 H Respiratory rate source Observation Observation Observation Oxygen Delivery Method Room Air Blood Pressure (90/60-120/80) 121/68 H 170/93 H Blood Pressure Mean (mm Hg) 85 118 Source Monitor Monitor History Since Last Visit- (Skip if this is Patient's initial visit) Have you changed medications since your No No No last visit? Any new allergies or adverse reactions No No No Had a fall/change in ADL's that may No No No increase risk of falls Signs or symptoms of abuse and/or No No No neglect since last visit Have you been in the hospital since your No No No last visit? Has dressing in place as prescribed Yes Yes Yes Has compression in place as prescribed Yes Yes Yes Has offloadiing in place as prescribed Yes Yes Yes Experienced any changes in pain level or No No No management Left Footwear Regular Shoe Regular Shoe Right Footwear Surgical Shoe Surgical Shoe Surgical Shoe with pressure with pressure with pressure relief insole relief insole relief insole Pain Scale: 0-10 Numeric Is Patient Pain Free? Yes Yes Yes LAM - Nurse 1 - General Ulcer Measurement Start: 06/19/24 11:08 Freq: Status: Active Protocol: Activity Type Activity Date Activity User E-sign Co-sign Detail Recorded Client Recorded Date Recorded By Document 06/19/24 11:08 KW [id number] 06/19/24 11:15 KW Document 06/26/24 10:43 DL [id number] 06/26/24 10:51 DL Document 07/03/24 10:48 DL [id number] 07/03/24 10:54 DL 06/19/24 06/26/24 07/03/24 11:08 10:43 10:48 Wound Center Nurse 1 #5 R Heel -Current Size (cm) - Length 0.8 0.1 0.5 -Current Size (cm) - Width 0.5 0.1 0.4 -Current Size (cm) - Depth 0.1 0.1 0.1 -Total Square Cm 0.40 0.01 0.20 -Date of Last Picture (Recall this 06/19/24 field) -Photo Taken Yes Yes -Exudate Amt Small None Present Small -Exudate Type Serosanguineous Sanguineous -Wound Margin Distinct, Distinct, Distinct, Outline Outline Outline Attached Attached Attached -Granulation Amt Large (67-100%) Medium (34-66%) Small (1-33%) -Granulation Quality Red Pale,[place] Red -Necrosis Amt Medium (34-66%) Small (1-33%) -Necrotic Tissue Type Adherent Slough Adherent Slough -Structure Exposed N/A N/A -Texture (Lianna-wound Skin Appearance) Assessed Scarring Scarring -Moisture (Lianna-wound Skin Appearance) Assessed Maceration No Abnormality -Color (Lianna-wound Skin Appearance) Assessed No Abnormality No Abnormality -Temperature (Lianna-wound Skin No Abnormality No Abnormality No Abnormality Appearance) (Pt Warm) (Pt Warm) (Pt Warm) -Tenderness on Palpation (Lianna-wound No No Skin Appearance) -Ulcer Cleansing Rinsed/ Soap and Water Soap and Water Irrigated with Saline -Foul Odor after Cleansing No No No -Anesthetic Used 5% Lidocaine 5% Lidocaine 5% Lidocaine Gel Gel Gel #4 RT GREAT TOE -Current Size (cm) - Length 0.1 -Current Size (cm) - Width 0.1 -Current Size (cm) - Depth 0 -Total Square Cm 0.01 -Texture (Lianna-wound Skin Appearance) Assessed -Moisture (Lianna-wound Skin Appearance) Assessed -Color (Lianna-wound Skin Appearance) Assessed -Temperature (Lianna-wound Skin No Abnormality Appearance) (Pt Warm) -Tenderness on Palpation (Lianna-wound No Skin Appearance) Right Calf (cm) 47.5 49.8 48 Right Ankle (cm) 29.7 28.8 28.5 WC - Nurse 2 - General Ulcer CM Notes Start: 06/19/24 11:08 Freq: Status: Active Protocol: Activity Type Activity Date Activity User E-sign Co-sign Detail Recorded Client Recorded Date Recorded By Document 06/19/24 11:31 [facility] [id number] 06/19/24 11:35 [employer] Document 06/26/24 10:55 [facility] [id number] 06/26/24 10:58 BM Document 07/03/24 11:11 [facility] [id number] 07/03/24 11:21 BMF 06/19/24 06/26/24 07/03/24 11:31 10:55 11:11 Wound Center Nurse 2 #5 R Heel -Time 11:31 10:55 11:14 -Correct Patient Yes Yes Yes -Correct Side, Site, Position Yes Yes Yes -Correct Procedure Yes Yes Yes -Procedure Performed Yes Yes Yes -Type of Procedure Debridement Debridement Debridement -Clinical Debridement Subcutaneous Subcutaneous Subcutaneous -Tissue Removed Subcutaneous Subcutaneous Subcutaneous -Post Debridement (cm) - Length 1.8 0.8 1.7 -Post Debridement (cm) - Width 0.9 0.3 1 -Post Debridement (cm) - Depth 0.1 0.1 0.1 -Total Square (Post) (cm) 1.62 0.24 1.7 -Area of Debridement (cm) - Length 1.8 0.8 1.7 -Area of Debridement (cm) - Width 0.9 0.3 1 -Total Square (Area) (cm) 1.62 0.24 1.7 -Tunneling No No No -Undermining/Tunneling No No No -Circular Undermining No No No -Wound/Ulcer Outcome Not Healed Not Healed Not Healed -Ulcer Cleansing Rinsed/ Rinsed/ Rinsed/ Irrigated with Irrigated with Irrigated with Saline Saline Saline -Foul Odor after Cleansing No No No -Bioengineered Tissue No No No -Bleeding Controlled with Pressure Pressure Pressure -Treatment Response Procedure Procedure Tolerated Well Tolerated Well -Debridement - Subq, 1st 20sq cm Yes Yes Yes #4 RT GREAT TOE -Time 11:32 11:11 -Correct Patient Yes -Correct Side, Site, Position Yes -Correct Procedure Yes -Procedure Performed Yes -Type of Procedure Debridement -Clinical Debridement Epidermis / Dermis -Tissue Removed Epidermis, Dermis -Post Debridement (cm) - Length 0.1 0.1 -Post Debridement (cm) - Width 0.1 0.1 -Post Debridement (cm) - Depth 0.1 0.1 -Total Square (Post) (cm) 0.01 0.01 -Area of Debridement (cm) - Length 0.1 0.1 -Area of Debridement (cm) - Width 0.1 0.1 -Total Square (Area) (cm) 0.01 0.01 -Tunneling No No -Undermining/Tunneling No No -Circular Undermining No No -Wound/Ulcer Outcome Not Healed Not Healed -Ulcer Cleansing Rinsed/ Irrigated with Saline -Foul Odor after Cleansing No -Bioengineered Tissue No -Bleeding Controlled with Pressure -Treatment Response Procedure Tolerated Well -Debridement - Open, 1st 20sq cm Yes Pain Scale: 0-10 Numeric Is Patient Pain Free? Yes Yes Yes - Nurse 3 - General Ulcer D/C NN Start: 06/19/24 11:08 Freq: Status: Active Protocol: Activity Type Activity Date Activity User E-sign Co-sign Detail Recorded Client Recorded Date Recorded By Document 06/19/24 11:42 [facility] [id number] 06/19/24 11:44 [facility] Document 06/26/24 11:09 [facility] [id number] 06/26/24 11:10 [facility] 06/19/24 06/26/24 11:42 11:09 Wound Care Center Nurse 3 #5 R Heel -Ulcer Cleansing Rinsed/ Rinsed/ Irrigated with Irrigated with Saline Saline -Foul Odor after Cleansing No No -Other Dressing magalis magalis -Primary Dressing Covered/Secured with Dry Gauze & Dry Gauze, Roll Gauze, Secured with Secured with Tape Tape #4 RT GREAT TOE -Primary Dressing Covered/Secured with Dry Gauze, Secured with Tape Right -Tubular Bandage Single Layer -Size of Tubigrip Used Size F -Size F ($) 1 -Other reapplied pts single layer size f Treatment Response Procedure Procedure Tolerated Well Tolerated Well Pain Scale: 0-10 Numeric Is Patient Pain Free? Yes Yes WC - Visit Discharge Discharge Condition Stable Stable Ambulatory Status Ambulatory, Ambulatory, Walker Walker Transportation Private Auto Private Auto Accompanied by Additional Wound Wound debrided: Right hallux Laterality: Right Wound Grade/Stage: Gomez stage I Type of Debridement: Selective debridement Anesthesia Used: - (None) Depth: Down to and including healthy tissue Percentage of wound debrided: 100 Instrument Used: #15 blade Tissue Removed: Hyperkeratotic tissue and nonviable tissue Severity: Limited To Skin Breakdown Amount of bleeding with debridement: None Patient tolerated procedure: Patient tolerated procedure well Assessment/Plan Assessment/Plan (1) Non-pressure chronic ulcer of other part of right foot with fat layer exposed: CODE(S): L97.512 - Non-pressure chronic ulcer of other part of right foot with fat layer exposed (2) Chronic ulcer of right heel with fat layer exposed: CODE(S): L97.412 - Non-pressure chronic ulcer of right heel and midfoot with fat layer exposed (3) Acute painful diabetic polyneuropathy: CODE(S): E11.42 - Type 2 diabetes mellitus with diabetic polyneuropathy (4) Type 2 diabetes mellitus with foot ulcer: CODE(S): E11.621 - Type 2 diabetes mellitus with foot ulcer; L97.509 - Non-pressure chronic ulcer of other part of unspecified foot with unspecified severity QUALIFIERS: Diabetes mellitus group home insulin use: with 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 Right hallux distal tuft ulceration measures 0.1 cm x 0.1 cm x 0.1 cm and right posterior lateral heel ulceration measures 1.7 x 1.0 x 0.1. No signs of infection. Magalis and dry sterile dressing applied to right posterior heel ulceration. He is to change dressing daily. Protective dressing placed to the right hallux today over epithelializing skin. Discussed that he is developing continued pressure ulceration at the hallux again since his return to shoe gear as he continues to curl toes down during gait. Previous offloading padding remains in place to the plantar side of his diabetic insert. Will also continue to offload with crest padding to the Hallux. Site remains stable today to the right hallux vs previous visit but remains at risk due to continued pressure. Right posterior heel ulceration continues improvement and granulating in well but did increase in size only due to superficial skin tear secondary to change of dressing yesterday. Overall healing well. Discussed continue supportive shoe gear with digital offloading pad in place to the plantar side of his diabetic insert to prevent hammering of the hallux which I believe is causing pressure and ulceration. Will continue offloading with crest pad once site has healed. Ulceration at hallux demonstrate pressure to the distal tuft but is healing with offloading. Right heel demonstrates epithelialized skin. Previously discussed possible surgical intervention for aiding in offloading of the hallux. Has prior finished all EpiFix graft for both ulceration sites. Discussed continued wearing of Tubigrip compression stockings until ulcerations have healed at which time he will change to bilateral compression stocking. Discussed continuing to elevate feet at all times of rest for edema control. Discussed adequate protein intake to continue to aid in wound healing. Florentin supplementation was recommended. Discussed proper diabetic diet in addition to the stated above to ensure adequate wound healing. Patient states that his sugars have been up but not above 200. does state he does eat things that he should not though. Last visit with PCP demonstrates increase in weight. He has continued taking the instructed supplements for his neuropathy consisting of of complex B vitamin daily, magnesium 250 mg daily, alpha lipoic acid 300 mg daily, and 500 mg glutamine supplement. Discussed continuing to take it and allow time for the nerves to continue repair. Discussed signs and symptoms of infection. Discussed with the patient if he notices redness about the wound margins that continues to spread or moves up the leg, any purulent drainage from the wound site, increasing foul odor from the wound or if he experiences fever greater than 101 degree accompanied by nausea, vomiting, chills, that these are signs of a progressing infection and he should report to the ED for IV antibiotics and further evaluation. He and his voiced understanding of this today. The following work up and care recommendations were made: Dressing: Magalis dry sterile dressing right heel, change daily. Protective dry sterile dressing to hallux. Will continue offloading with diabetic inserts and Lal's extension offloading. Wash: Soap and water Tissue growth optimization: Magalis Offload: Elevating lower extremities at rest. Vascular: DP and PT pulses are weakly palpable with adequate capillary fill time. Do not feel that vascular status is affecting wound healing. Edema: Continue elevating lower extremities at all times of rest. Continue wearing Tubigrip compression stocking. Discussed eventual change to a standard prescription compression stocking once wounds have healed. Infection: No signs of infection. Wound cultures were taken given patient's prior history of recurrent bacterial infection at the sites. Pain: May take [id number] Tylenol for discomfort Host factors: DM type II with peripheral polyneuropathy, HTN, morbid obesity, lymphedema I answered all the patient's questions. To return to the wound healing center in 2 weeks or call sooner if the patient has any questions or concerns.
== END 2024-07-12 23:59 | disposition home or self-care (01) ==
LOC: WC 10:45
PROVIDERS: PCP Internal Medicine; Referring Provider Internal Medicine; Visit Provider Student in an Organized Health Care Education/Training Program
DX: E11.621 Type 2 diabetes mellitus with foot ulcer (principal); L97.412 Non-pressure chronic ulcer of right heel and midfoot with fat layer exposed; L97.511 Non-pressure chronic ulcer of other part of right foot limited to breakdown of skin; E11.42 Type 2 diabetes mellitus with diabetic polyneuropathy; Z79.4 Long term (current) use of insulin; I10 Essential (primary) hypertension; E78.00 Pure hypercholesterolemia, unspecified; R53.81 Other malaise; R60.0 Localized edema; I89.0 Lymphedema, not elsewhere classified; Z96.652 Presence of left artificial knee joint; Z86.711 Personal history of pulmonary embolism
CPT/HCPCS: 11042; 97597

== ENCOUNTER 2024-07-31 10:30 | Outpatient (RCR) | payer MEDICARE, BC, SELFPAY ==
[2024-07-13 00:40] VITALS: BP 109/90; PULSE 84; RESP 22; TEMP 36.5
[2024-07-17 10:39] VITALS: BP 157/82; PULSE 81; RESP 18; TEMP 36.8
--- NOTE | 2024-07-17 13:11 | PN.PCM_ITS ---
History of Present Illness Date of Service: 07/17/24 Chief Complaint: Right heel ulcer and right hallux ulcer History of Wound: 68 year old male presents to the wound center for evaluation of his right heal ulcer. It started as a a pressure ulcer in February 2022 when he he was in TCU and it healed. It then became a blister right before his Left TKR surgery. He had his left knee replaced 07/14/22 at [facility]. 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 He also has a history of diabetes type II with peripheral polyneuropathy, HTN, lymphedema, hypercholesterolemia and PE that he is on Xerelto. Wound culture obtained on 08/30/22 which are positive for VRE, Kocuria kristinae and Corynebacterium striatum. He will completed the Linezolid. Wound culture obtained 06/20/23 which was positive for Staphylococcus pseudintermediu, Pseudomonas aeruginosa, Corynebacterium minutissiumum, and Anaerobic cocci. He was started on Levaquin and Flagyl. Foot xray 09/27/22 - Osteopenia with diffuse osteoarthritic changes. Diffuse soft tissue swelling with ossification of the distal Achilles tendon. No acute abnormality or evidence of erosive changes. Did undergo updated radiograph of the right foot 11/08/2023 with no noted changes from previous x-ray. This is a recurring ulceration to both distal medial tuft of the right hallux and posterior lateral heel. He states both sites had scabbed up and he was previously discharged however scabs have later broken down with re-ulceration. Wound care -currently applying Magalis daily and is offloading and surgical shoe to the right foot. He denies any fever, chills, nausea and vomiting. Denies further complaints. Subjective Subjective This is a 68-year-old male who presents to the wound care center for continued follow-up of right hallux distal tuft ulceration and right posterior lateral calcaneal ulceration. Patient reports history of recurring ulcerations of these 2 specific sites over the last several years. Continues to offload Hallux site and remains in good standing. Continues wearing offloading foam boot in bed. Continues care for right heel ulceration with Magalis daily to ulceration site. states she believes site at the heel is improving. States sugars are controlled. Denies constitutional symptoms. Denies further complaints. Objective Data Objective Data Vital Signs: Vital Signs Temp Pulse Resp BP O2 Del Method 98.3 F 81 18 157/82 H Room Air 07/17/24 10:39 07/17/24 10:39 07/17/24 10:39 07/17/24 10:39 07/17/24 10:39 Oxygen Delivery Method Room Air Physical Exam Const alert, oriented x3 and no apparent distress General Appearance: cooperative HEENT normocephalic Eyes General Eye: normal appearance of both eyes Neck General: normal visual inspection Lymph Lymphatic: no lymphadenopathy noted and no lymphedema noted Resp normal respiratory effort Cardio regular rate and regular rhythm Extremity Extremity Narrative: Vascular: DP and PT pulses weakly palpable. CFT less than 5 seconds to the digits. Normal temperature gradient. Hair growth is absent to digits/foot. Neurologic: Gross sensation intact. Decreased light touch sensation. Absent protective sensation tested with 5.07g [place] Zen monofilament. Lack of protective sensation consistent with diabetic peripheral polyneuropathy Dermatologic: There is varicosities noted to the lower extremity with subsequent edema about foot and LIANNA ankle. Distal Hallux tuft ulceration has epithelialized skin. There is a full thickness ulceration to the posterior lateral heel ulceration with healthy granular tissue, which is improving. No signs of infection. Musculoskeletal: Muscle strength 5 of 5 age-appropriate. Decreased range of motion of the ankle joint in dorsiflexion with the knee extended without pain or crepitus. Decreased range of motion of the first metatarsophalangeal joint without pain or crepitus. There is hammertoe deformity of digits 1 through 5. Skin no rashes or lesions noted, skin turgor normal and no jaundice Neuro moves all extremities Debridement Note Debridement Note Wound debrided: Right posterior lateral heel Laterality: Right Wound Grade/Stage: Gomez stage I Type of Debridement: Excisional debridement Anesthesia Used: 5% Lidocaine Gel Depth: Down to and including healthy tissue and in the subcutaneous layer Percentage of wound debrided: 100 Instrument Used: #15 blade Tissue Removed: Fibrous, devitalized subcutaneous, biofilm, slough Severity: Fat Layer Exposed Amount of bleeding with debridement: Mild Bleeding Controlled with: Compression and gauze Patient tolerated procedure: Patient tolerated procedure well Post-Debridement Measurements and Additional Note: Post-Debridement Measurements/Treatment WC - Nurse 1 - General Ulcer Assessment Start: 07/17/24 10:38 Freq: Status: Active Protocol: LAM.MIRA Activity Type Activity Date Activity User E-sign Co-sign Detail Recorded Client Recorded Date Recorded By Document 07/17/24 10:39 KW [id number] 07/17/24 10:51 07/17/24 10:39 - Today's Visit Information Type of service Follow-up Visit (Physician/[employer]AMEL [employer]PERATOR ) Accompanied by Patient Identification Verified (Name & Yes ) Vital Signs Temperature (97.8 F-99.1 F) 98.3 F Temperature Source Temporal Pulse Rate (60-100) 81 Pulse Location Monitor Respiratory Rate (12-18) 18 Respiratory rate source Observation Oxygen Delivery Method Room Air Blood Pressure (90/60-120/80) 157/82 H Blood Pressure Mean (mm Hg) 107 Source Monitor Position Semi-Fowlers Blood Pressure Location Left Arm History Since Last Visit- (Skip if this is Patient's initial visit) Have you changed medications since your No last visit? Any new allergies or adverse reactions No Had a fall/change in ADL's that may No increase risk of falls Signs or symptoms of abuse and/or No neglect since last visit Have you been in the hospital since your No last visit? Has dressing in place as prescribed Yes Has compression in place as prescribed Yes Has offloadiing in place as prescribed Yes Experienced any changes in pain level or No management Left Footwear Regular Shoe Right Footwear Surgical Shoe with pressure relief insole Pain Scale: 0-10 Numeric Is Patient Pain Free? Yes - Nurse 1 - General Ulcer Measurement Start: 07/17/24 10:38 Freq: Status: Active Protocol: Activity Type Activity Date Activity User E-sign Co-sign Detail Recorded Client Recorded Date Recorded By Document 07/17/24 10:39 KW [id number] 07/17/24 10:51 07/17/24 10:39 Wound Center Nurse 1 #5 R Heel -Current Size (cm) - Length 0.1 -Current Size (cm) - Width 0.1 -Current Size (cm) - Depth 0.1 -Total Square Cm 0.01 -Date of Last Picture (Recall this 07/17/24 field) -Exudate Amt Small -Exudate Type Serosanguineous -Wound Margin Distinct, Outline Attached -Granulation Amt Small (1-33%) -Granulation Quality Red -Necrosis Amt Large (67-100%) -Necrotic Tissue Type Adherent Slough -Texture (Lianna-wound Skin Appearance) Assessed,Callus -Moisture (Lianna-wound Skin Appearance) Assessed,Dry/ Scaly -Color (Lianna-wound Skin Appearance) Assessed -Temperature (Lianna-wound Skin No Abnormality Appearance) (Pt Warm) -Tenderness on Palpation (Lianna-wound No Skin Appearance) -Ulcer Cleansing Rinsed/ Irrigated with Saline -Foul Odor after Cleansing No -Anesthetic Used 5% Lidocaine Gel #4 RT GREAT TOE -Current Size (cm) - Length 0.1 -Current Size (cm) - Width 0.1 -Current Size (cm) - Depth 0 -Total Square Cm 0.01 -Date of Last Picture (Recall this 07/17/24 field) -Exudate Amt None Present -Granulation Amt None Present (0 %) -Necrosis Amt Large (67-100%) -Necrotic Tissue Type Adherent Slough -Texture (Lianna-wound Skin Appearance) Assessed,Callus -Moisture (Lianna-wound Skin Appearance) Assessed,Dry/ Scaly -Color (Lianna-wound Skin Appearance) Assessed -Temperature (Lianna-wound Skin No Abnormality Appearance) (Pt Warm) -Tenderness on Palpation (Lianna-wound No Skin Appearance) -Ulcer Cleansing Soap and Water -Foul Odor after Cleansing No -Anesthetic Used 5% Lidocaine Gel WC - Nurse 2 - General Ulcer CM Notes Start: 07/17/24 10:38 Freq: Status: Active Protocol: Activity Type Activity Date Activity User E-sign Co-sign Detail Recorded Client Recorded Date Recorded By Document 07/17/24 10:57 [facility] [id number] 07/17/24 11:03 [facility] 07/17/24 10:57 Wound Center Nurse 2 #5 R Heel -Time 10:58 -Correct Patient Yes -Correct Side, Site, Position Yes -Correct Procedure Yes -Procedure Performed Yes -Type of Procedure Debridement -Clinical Debridement Subcutaneous -Tissue Removed Subcutaneous -Post Debridement (cm) - Length 0.5 -Post Debridement (cm) - Width 0.4 -Post Debridement (cm) - Depth 0.1 -Total Square (Post) (cm) 0.20 -Area of Debridement (cm) - Length 0.5 -Area of Debridement (cm) - Width 0.4 -Total Square (Area) (cm) 0.20 -Tunneling No -Undermining/Tunneling No -Circular Undermining No -Wound/Ulcer Outcome Not Healed -Ulcer Cleansing Rinsed/ Irrigated with Saline -Foul Odor after Cleansing No -Bioengineered Tissue No -Bleeding Controlled with Pressure -Treatment Response Procedure Tolerated Well -Debridement - Subq, 1st 20sq cm Yes #4 RT GREAT TOE -Post Debridement (cm) - Length 0.1 -Post Debridement (cm) - Width 0.1 -Post Debridement (cm) - Depth 0.1 -Total Square (Post) (cm) 0.01 -Area of Debridement (cm) - Length 0.1 -Area of Debridement (cm) - Width 0.1 -Total Square (Area) (cm) 0.01 -Wound/Ulcer Outcome Not Healed -Bleeding Controlled with NA Pain Scale: 0-10 Numeric Is Patient Pain Free? Yes - Nurse 3 - General Ulcer D/C NN Start: 07/17/24 10:38 Freq: Status: Active Protocol: Activity Type Activity Date Activity User E-sign Co-sign Detail Recorded Client Recorded Date Recorded By Document 07/17/24 11:15 JOSE [id number] 07/17/24 11:16 JOSE 07/17/24 11:15 Wound Care Center Nurse 3 #5 R Heel -Other Dressing pt own magalis -Primary Dressing Covered/Secured with Dry Gauze & Roll Gauze, Secured with Tape #4 RT GREAT TOE -Other Dressing leave wendi Pain Scale: 0-10 Numeric Is Patient Pain Free? Yes - Visit Discharge Discharge Condition Stable Ambulatory Status Walker Transportation Private Auto Medication Reconcilliation completed & No provided to patient/care provider Clinical Summary of Care Provided Yes Assessment/Plan Assessment/Plan (1) Chronic ulcer of right heel with fat layer exposed: CODE(S): L97.412 - Non-pressure chronic ulcer of right heel and midfoot with fat layer exposed (2) Non-pressure chronic ulcer of other part of right foot with fat layer exposed: CODE(S): L97.512 - Non-pressure chronic ulcer of other part of right foot with fat layer exposed (3) Acute painful diabetic polyneuropathy: CODE(S): E11.42 - Type 2 diabetes mellitus with diabetic polyneuropathy (4) Type 2 diabetes mellitus with foot ulcer: CODE(S): E11.621 - Type 2 diabetes mellitus with foot ulcer; L97.509 - Non-pressure chronic ulcer of other part of unspecified foot with unspecified severity QUALIFIERS: Diabetes mellitus skilled nursing insulin use: with meterman use Qualified Code(s): E11.621 - Type 2 diabetes mellitus with foot ulcer; L97.509 - Non-pressure chronic ulcer of other part of unspecified foot with unspecified severity; Z79.4 - roasterman (current) use of insulin (5) Lymphedema: CODE(S): I89.0 - Lymphedema, not elsewhere classified (6) Debility: CODE(S): R53.81 - Other malaise (7) Lower extremity edema: CODE(S): R60.0 - Localized edema PLAN: Plan Patient seen and evaluated Pre-debridement: Hallux 0.1cm x 0.1 cm x 0.1cm ; Right Heel measuring 0.4 x 0.3 x 0.1 Ulceration did undergo debridement as noted in the clinical panel above. Right hallux distal tuft ulceration measures 0.1 cm x 0.1 cm x 0.1 cm and right posterior lateral heel ulceration measures 0.5 x 0.4 x 0.1. No signs of infection. Magalis and dry sterile dressing applied to right posterior heel ulceration. He is to change dressing daily. Protective dressing placed to the right hallux today over epithelializing skin. Discussed that he is developing continued pressure ulceration at the hallux again since his return to shoe gear as he continues to curl toes down during gait. Previous offloading padding remains in place to the plantar side of his diabetic insert. Will also continue to offload with crest padding to the Hallux. Site remains stable today to the right hallux vs previous visit but remains at risk due to continued pressure. Right posterior heel ulceration continues improvement and granulating in well and is decreased in size versus previous visit. Overall healing well. Discussed continue supportive shoe gear with digital offloading pad in place to the plantar side of his diabetic insert to prevent hammering of the hallux which I believe is causing pressure and ulceration. Will continue offloading with crest pad once site has healed. Ulceration at hallux demonstrate pressure to the distal tuft but is healing with offloading. Previously discussed possible surgical intervention for aiding in offloading of the hallux. Has prior finished all EpiFix graft for both ulceration sites. Discussed continued wearing of Tubigrip compression stockings until ulcerations have healed at which time he will change to bilateral compression stocking. Discussed continuing to elevate feet at all times of rest for edema control. Discussed adequate protein intake to continue to aid in wound healing. Florentin supplementation was recommended. Discussed proper diabetic diet in addition to the stated above to ensure adequate wound healing. Patient states that his sugars have been up but not above 200. does state he does eat things that he should not though. Last visit with PCP demonstrates increase in weight. He has continued taking the instructed supplements for his neuropathy consisting of of complex B vitamin daily, magnesium 250 mg daily, alpha lipoic acid 300 mg daily, and 500 mg glutamine supplement. Discussed continuing to take it and allow time for the nerves to continue repair. Discussed signs and symptoms of infection. Discussed with the patient if he notices redness about the wound margins that continues to spread or moves up the leg, any purulent drainage from the wound site, increasing foul odor from the wound or if he experiences fever greater than 101 degree accompanied by nausea, vomiting, chills, that these are signs of a progressing infection and he should report to the ED for IV antibiotics and further evaluation. He and his voiced understanding of this today. The following work up and care recommendations were made: Dressing: Magalis dry sterile dressing right heel, change daily. Protective dry sterile dressing to hallux. Will continue offloading with diabetic inserts and Lal's extension offloading. Wash: Soap and water Tissue growth optimization: Magalis Offload: Elevating lower extremities at rest. Vascular: DP and PT pulses are weakly palpable with adequate capillary fill time. Do not feel that vascular status is affecting wound healing. Edema: Continue elevating lower extremities at all times of rest. Continue wearing Tubigrip compression stocking. Discussed eventual change to a standard prescription compression stocking once wounds have healed. Infection: No signs of infection. Wound cultures were taken given patient's prior history of recurrent bacterial infection at the sites. Pain: May take [id number] Tylenol for discomfort Host factors: DM type II with peripheral polyneuropathy, HTN, morbid obesity, lymphedema I answered all the patient's questions. To return to the wound healing center in 1 week or call sooner if the patient has any questions or concerns.
[2024-07-24 11:13] VITALS: BP 176/78; PULSE 82; RESP 18; TEMP 35.9
--- NOTE | 2024-07-24 12:02 | PCM.WC.PN ---
History of Present Illness Date of Service: 07/24/24 Chief Complaint: Right heel ulcer and right hallux ulcer History of Wound: 68 year old male presents to the wound center for evaluation of his right heal ulcer. It started as a a pressure ulcer in February 2022 when he he was in TCU and it healed. It then became a blister right before his Left TKR surgery. He had his left knee replaced 07/14/22 at [facility]. 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 He also has a history of diabetes type II with peripheral polyneuropathy, HTN, lymphedema, hypercholesterolemia and PE that he is on Xerelto. Wound culture obtained on 08/30/22 which are positive for VRE, Kocuria kristinae and Corynebacterium striatum. He will completed the Linezolid. Wound culture obtained 06/20/23 which was positive for Staphylococcus pseudintermediu, Pseudomonas aeruginosa, Corynebacterium minutissiumum, and Anaerobic cocci. He was started on Levaquin and Flagyl. Foot xray 09/27/22 - Osteopenia with diffuse osteoarthritic changes. Diffuse soft tissue swelling with ossification of the distal Achilles tendon. No acute abnormality or evidence of erosive changes. Did undergo updated radiograph of the right foot 11/08/2023 with no noted changes from previous x-ray. This is a recurring ulceration to both distal medial tuft of the right hallux and posterior lateral heel. He states both sites had scabbed up and he was previously discharged however scabs have later broken down with re-ulceration. Wound care -currently applying Magalis daily and is offloading and surgical shoe to the right foot. He denies any fever, chills, nausea and vomiting. Denies further complaints. Subjective Subjective This is a 68-year-old male who presents to the wound care center for continued follow-up of right hallux distal tuft ulceration and right posterior lateral calcaneal ulceration. Patient reports history of recurring ulcerations of these 2 specific sites over the last several years. Continues to offload Hallux site and remains in good standing. Continues wearing offloading foam boot in bed. Has returned to utilizing his lymphedema pumps. Continues care for right heel ulceration with Magalis daily to ulceration site. states she believes site at the heel continues improvement and his big toe wound has healed. States sugars are controlled. Denies constitutional symptoms. Denies further complaints. Objective Data Objective Data Vital Signs: Vital Signs Temp Pulse Resp BP O2 Del Method 96.7 F L 82 18 176/78 H Room Air 07/24/24 11:13 07/24/24 11:13 07/24/24 11:13 07/24/24 11:13 07/24/24 11:13 Oxygen Delivery Method Room Air Physical Exam Const alert, oriented x3 and no apparent distress General Appearance: cooperative HEENT normocephalic Eyes General Eye: normal appearance of both eyes Neck General: normal visual inspection Lymph Lymphatic: no lymphadenopathy noted and no lymphedema noted Resp normal respiratory effort Cardio regular rate and regular rhythm Extremity Extremity Narrative: Vascular: DP and PT pulses weakly palpable. CFT less than 5 seconds to the digits. Normal temperature gradient. Hair growth is absent to digits/foot. Neurologic: Gross sensation intact. Decreased light touch sensation. Absent protective sensation tested with 5.07g [place] Zen monofilament. Lack of protective sensation consistent with diabetic peripheral polyneuropathy Dermatologic: There is varicosities noted to the lower extremity with subsequent edema about foot and LIANNA ankle. Distal Hallux tuft ulceration has healed. There is a full thickness ulceration to the posterior lateral heel ulceration with healthy granular tissue, which is improving. No signs of infection. Musculoskeletal: Muscle strength 5 of 5 age-appropriate. Decreased range of motion of the ankle joint in dorsiflexion with the knee extended without pain or crepitus. Decreased range of motion of the first metatarsophalangeal joint without pain or crepitus. There is hammertoe deformity of digits 1 through 5. Skin no rashes or lesions noted, skin turgor normal and no jaundice Neuro moves all extremities Debridement Note Debridement Note Wound debrided: Posterior lateral right heel Laterality: Right Wound Grade/Stage: Gomez stage I Type of Debridement: Excisional debridement Anesthesia Used: 5% Lidocaine Gel Depth: Down to and including healthy tissue and in the subcutaneous layer Percentage of wound debrided: 100 Instrument Used: #15 blade Tissue Removed: Fibrous, devitalized subcutaneous, biofilm, slough Severity: Fat Layer Exposed Amount of bleeding with debridement: Mild Bleeding Controlled with: Compression and gauze Patient tolerated procedure: Patient tolerated procedure well Post-Debridement Measurements and Additional Note: Post-Debridement Measurements/Treatment WC - Nurse 1 - General Ulcer Assessment Start: 07/17/24 10:38 Freq: Status: Active Protocol: NELL Activity Type Activity Date Activity User E-sign Co-sign Detail Recorded Client Recorded Date Recorded By Document 07/17/24 10:39 KW [id number] 07/17/24 10:51 KW Document 07/24/24 11:13 KW [id number] 07/24/24 11:20 KW 07/17/24 07/24/24 10:39 11:13 - Today's Visit Information Type of service Follow-up Visit Follow-up Visit (Physician/CRYPTOZOOLOGIST (Physician/CRYPTOZOOLOGIST ) ) Arrival Mode Ambulatory, Walker Accompanied by Patient Identification Verified (Name & Yes Yes ) Vital Signs Temperature (97.8 F-99.1 F) 98.3 F 96.7 F L Temperature Source Temporal Temporal Pulse Rate (60-100) 81 82 Pulse Location Monitor Monitor Respiratory Rate (12-18) 18 18 Respiratory rate source Observation Observation Oxygen Delivery Method Room Air Room Air Blood Pressure (90/60-120/80) 157/82 H 176/78 H Blood Pressure Mean (mm Hg) 107 110 Source Monitor Monitor Position Semi-Fowlers Semi-Fowlers Blood Pressure Location Left Arm Left Arm History Since Last Visit- (Skip if this is Patient's initial visit) Have you changed medications since your No No last visit? Any new allergies or adverse reactions No No Had a fall/change in ADL's that may No No increase risk of falls Signs or symptoms of abuse and/or No No neglect since last visit Have you been in the hospital since your No No last visit? Has dressing in place as prescribed Yes Yes Has compression in place as prescribed Yes Yes Has offloadiing in place as prescribed Yes Yes Experienced any changes in pain level or No No management Left Footwear Regular Shoe Regular Shoe Right Footwear Surgical Shoe Surgical Shoe with pressure with pressure relief insole relief insole Pain Scale: 0-10 Numeric Is Patient Pain Free? Yes Yes - Nurse 1 - General Ulcer Measurement Start: 07/17/24 10:38 Freq: Status: Active Protocol: Activity Type Activity Date Activity User E-sign Co-sign Detail Recorded Client Recorded Date Recorded By Document 07/17/24 10:39 KW [id number] 07/17/24 10:51 KW Document 07/24/24 11:13 KW [id number] 07/24/24 11:20 KW 07/17/24 07/24/24 10:39 11:13 Wound Center Nurse 1 #4 RT GREAT TOE -Current Size (cm) - Length 0.1 0 -Current Size (cm) - Width 0.1 0 -Current Size (cm) - Depth 0 0 -Total Square Cm 0.01 0 -Date of Last Picture (Recall this 07/17/24 field) -Exudate Amt None Present None Present -Granulation Amt None Present (0 %) -Necrosis Amt Large (67-100%) -Necrotic Tissue Type Adherent Slough -Texture (Lianna-wound Skin Appearance) Assessed,Callus Assessed -Moisture (Lianna-wound Skin Appearance) Assessed,Dry/ Assessed,Dry/ Scaly Scaly -Color (Lianna-wound Skin Appearance) Assessed Assessed -Temperature (Lianna-wound Skin No Abnormality No Abnormality Appearance) (Pt Warm) (Pt Warm) -Tenderness on Palpation (Lianna-wound No No Skin Appearance) -Ulcer Cleansing Soap and Water -Foul Odor after Cleansing No -Anesthetic Used 5% Lidocaine Gel #5 R Heel -Current Size (cm) - Length 0.1 0.5 -Current Size (cm) - Width 0.1 0.3 -Current Size (cm) - Depth 0.1 1 -Total Square Cm 0.01 0.15 -Date of Last Picture (Recall this 07/17/24 07/24/24 field) -Exudate Amt Small Small -Exudate Type Serosanguineous Serosanguineous -Wound Margin Distinct, Distinct, Outline Outline Attached Attached -Granulation Amt Small (1-33%) Small (1-33%) -Granulation Quality Red Red -Necrosis Amt Large (67-100%) -Necrotic Tissue Type Adherent Slough -Texture (Lianna-wound Skin Appearance) Assessed,Callus Assessed -Moisture (Lianna-wound Skin Appearance) Assessed,Dry/ Assessed,Dry/ Scaly Scaly -Color (Lianna-wound Skin Appearance) Assessed Assessed -Temperature (Lianna-wound Skin No Abnormality No Abnormality Appearance) (Pt Warm) (Pt Warm) -Tenderness on Palpation (Lianna-wound No No Skin Appearance) -Ulcer Cleansing Rinsed/ Rinsed/ Irrigated with Irrigated with Saline Saline -Foul Odor after Cleansing No No -Anesthetic Used 5% Lidocaine 5% Lidocaine Gel Gel WC - Nurse 2 - General Ulcer CM Notes Start: 07/17/24 10:38 Freq: Status: Active Protocol: Activity Type Activity Date Activity User E-sign Co-sign Detail Recorded Client Recorded Date Recorded By Document 07/17/24 10:57 [facility] [id number] 07/17/24 11:03 BM Document 07/24/24 11:39 [facility] [id number] 07/24/24 11:43 [facility] 07/17/24 07/24/24 10:57 11:39 Wound Center Nurse 2 #4 RT GREAT TOE -Time 11:39 -Post Debridement (cm) - Length 0.1 0 -Post Debridement (cm) - Width 0.1 0 -Post Debridement (cm) - Depth 0.1 0 -Total Square (Post) (cm) 0.01 0 -Area of Debridement (cm) - Length 0.1 0 -Area of Debridement (cm) - Width 0.1 0 -Total Square (Area) (cm) 0.01 0 -Wound/Ulcer Outcome Not Healed Healed- Epithelialized -Bleeding Controlled with NA NA #5 R Heel -Time 10:58 11:39 -Correct Patient Yes Yes -Correct Side, Site, Position Yes Yes -Correct Procedure Yes Yes -Procedure Performed Yes Yes -Type of Procedure Debridement Debridement -Clinical Debridement Subcutaneous Subcutaneous -Tissue Removed Subcutaneous Subcutaneous -Post Debridement (cm) - Length 0.5 0.4 -Post Debridement (cm) - Width 0.4 0.3 -Post Debridement (cm) - Depth 0.1 0.1 -Total Square (Post) (cm) 0.20 0.12 -Area of Debridement (cm) - Length 0.5 0.4 -Area of Debridement (cm) - Width 0.4 0.3 -Total Square (Area) (cm) 0.20 0.12 -Tunneling No No -Undermining/Tunneling No No -Circular Undermining No No -Wound/Ulcer Outcome Not Healed Not Healed -Ulcer Cleansing Rinsed/ Rinsed/ Irrigated with Irrigated with Saline Saline -Foul Odor after Cleansing No No -Bioengineered Tissue No No -Bleeding Controlled with Pressure Pressure -Treatment Response Procedure Procedure Tolerated Well Tolerated Well -Debridement - Subq, 1st 20sq cm Yes Yes Pain Scale: 0-10 Numeric Is Patient Pain Free? 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 Yes Yes WC - Visit Discharge Discharge Condition Stable Stable Ambulatory Status Walker Ambulatory, Walker Transportation Private Auto Private Auto Medication Reconcilliation completed & No No provided to patient/care provider Clinical Summary of Care Provided Yes Yes Assessment/Plan Assessment/Plan (1) Chronic ulcer of right heel with fat layer exposed: CODE(S): L97.412 - Non-pressure chronic ulcer of right heel and midfoot with fat layer exposed (2) Non-pressure chronic ulcer of other part of right foot with fat layer exposed: CODE(S): L97.512 - Non-pressure chronic ulcer of other part of right foot with fat layer exposed (3) Acute painful diabetic polyneuropathy: CODE(S): E11.42 - Type 2 diabetes mellitus with diabetic polyneuropathy (4) Type 2 diabetes mellitus with foot ulcer: CODE(S): E11.621 - Type 2 diabetes mellitus with foot ulcer; L97.509 - Non-pressure chronic ulcer of other part of unspecified foot with unspecified severity QUALIFIERS: Diabetes mellitus long term care phlebotomist insulin use: with detention use Qualified Code(s): E11.621 - Type 2 diabetes mellitus with foot ulcer; L97.509 - Non-pressure chronic ulcer of other part of unspecified foot with unspecified severity; Z79.4 - custodial (current) use of insulin (5) Lymphedema: CODE(S): I89.0 - Lymphedema, not elsewhere classified (6) Debility: CODE(S): R53.81 - Other malaise (7) Lower extremity edema: CODE(S): R60.0 - Localized edema PLAN: Plan Patient seen and evaluated Pre-debridement: Hallux healed ; Right Heel measuring 0.3 x 0.2 x 0.1 Ulceration did undergo debridement as noted in the clinical panel above. Right hallux distal tuft ulceration has healed, and right posterior lateral heel ulceration measures 0.4 x 0.3 x 0.1. No signs of infection. Magalis and dry sterile dressing applied to right posterior heel ulceration. He is to change dressing daily. He is aware that per our discussion that he is developing continued pressure ulceration at the hallux again since his return to shoe gear as he continues to curl toes down during gait. Previous offloading padding remains in place to the plantar side of his diabetic insert. Will also continue to offload with crest padding to the Hallux to prevent recidivism. Right hallux is healed today vs previous visit but remains at risk due to continued pressure. Right posterior heel ulceration continues improvement and granulating in well and is decreased in size versus previous visit. Overall healing well. Discussed continue supportive shoe gear with digital offloading pad in place to the plantar side of his diabetic insert to prevent hammering of the hallux which I believe is causing pressure and ulceration. Previously discussed possible surgical intervention for aiding in offloading of the hallux. Discussed continued wearing of Tubigrip compression stockings until ulcerations have healed at which time he will change to bilateral compression stocking. Discussed continuing to elevate feet at all times of rest for edema control. Discussed adequate protein intake to continue to aid in wound healing. Florentin supplementation was recommended. Discussed proper diabetic diet in addition to the stated above to ensure adequate wound healing. Patient states that his sugars have been up but not above 200. does state he does eat things that he should not though. Last visit with PCP demonstrates increase in weight. He has continued taking the instructed supplements for his neuropathy consisting of of complex B vitamin daily, magnesium 250 mg daily, alpha lipoic acid 300 mg daily, and 500 mg glutamine supplement. Discussed continuing to take it and allow time for the nerves to continue repair. Discussed signs and symptoms of infection. Discussed with the patient if he notices redness about the wound margins that continues to spread or moves up the leg, any purulent drainage from the wound site, increasing foul odor from the wound or if he experiences fever greater than 101 degree accompanied by nausea, vomiting, chills, that these are signs of a progressing infection and he should report to the ED for IV antibiotics and further evaluation. He and his voiced understanding of this today. The following work up and care recommendations were made: Dressing: Magalis dry sterile dressing right heel, change daily. Will continue offloading with diabetic inserts and Lal's extension/crest pad offloading to hallux. Wash: Soap and water Tissue growth optimization: Magalis Offload: Elevating lower extremities at rest. Vascular: DP and PT pulses are weakly palpable with adequate capillary fill time. Do not feel that vascular status is affecting wound healing. Edema: Continue elevating lower extremities at all times of rest. Continue wearing Tubigrip compression stocking. Discussed eventual change to a standard prescription compression stocking once wounds have healed. Infection: No signs of infection. Wound cultures were taken given patient's prior history of recurrent bacterial infection at the sites. Pain: May take [id number] Tylenol for discomfort Host factors: DM type II with peripheral polyneuropathy, HTN, morbid obesity, lymphedema I answered all the patient's questions. To return to the wound healing center in 1 week or call sooner if the patient has any questions or concerns.
--- NOTE | 2024-07-29 11:39 | WC ---
PHOTO 07/24/24 RIGHT HEEL
[2024-07-31 10:18] VITALS: BP 162/76; PULSE 90; RESP 18; TEMP 36.4
--- NOTE | 2024-07-31 11:14 | PN.PCM_ITS ---
History of Present Illness Date of Service: 07/31/24 Chief Complaint: Right heel ulcer and right hallux ulcer History of Wound: 68 year old male presents to the wound center for evaluation of his right heal ulcer. It started as a a pressure ulcer in February 2022 when he he was in TCU and it healed. It then became a blister right before his Left TKR surgery. He had his left knee replaced 07/14/22 at [facility]. 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 He also has a history of diabetes type II with peripheral polyneuropathy, HTN, lymphedema, hypercholesterolemia and PE that he is on Xerelto. Wound culture obtained on 08/30/22 which are positive for VRE, Kocuria kristinae and Corynebacterium striatum. He will completed the Linezolid. Wound culture obtained 06/20/23 which was positive for Staphylococcus pseudintermediu, Pseudomonas aeruginosa, Corynebacterium minutissiumum, and Anaerobic cocci. He was started on Levaquin and Flagyl. Foot xray 09/27/22 - Osteopenia with diffuse osteoarthritic changes. Diffuse soft tissue swelling with ossification of the distal Achilles tendon. No acute abnormality or evidence of erosive changes. Did undergo updated radiograph of the right foot 11/08/2023 with no noted changes from previous x-ray. This is a recurring ulceration to both distal medial tuft of the right hallux and posterior lateral heel. He states both sites had scabbed up and he was previously discharged however scabs have later broken down with re-ulceration. Wound care -currently applying Magalis daily and is offloading and surgical shoe to the right foot. He denies any fever, chills, nausea and vomiting. Denies further complaints. Subjective Subjective This is a 68-year-old male who presents to the wound care center for continued follow-up of right hallux distal tuft ulceration and right posterior lateral calcaneal ulceration. Patient reports history of recurring ulcerations of these 2 specific sites over the last several years. Continues to offload Hallux site and remains in good standing. Continues wearing offloading foam boot in bed. Has continued to utilize his lymphedema pumps. Continues care for right heel ulceration with Magalis daily to ulceration site. states she believes site at the heel is closed and his big toe wound remains healed. States sugars are controlled. Denies constitutional symptoms. Denies further complaints. Objective Data Objective Data Vital Signs: Vital Signs Temp Pulse Resp BP O2 Del Method 97.6 F L 90 18 162/76 H Room Air 07/31/24 10:18 07/31/24 10:18 07/31/24 10:18 07/31/24 10:18 07/31/24 10:18 Oxygen Delivery Method Room Air Physical Exam Const alert, oriented x3 and no apparent distress General Appearance: cooperative HEENT normocephalic Eyes General Eye: normal appearance of both eyes Neck General: normal visual inspection Lymph Lymphatic: no lymphadenopathy noted and no lymphedema noted Resp normal respiratory effort Cardio regular rate and regular rhythm Extremity Extremity Narrative: Vascular: DP and PT pulses weakly palpable. CFT less than 5 seconds to the digits. Normal temperature gradient. Hair growth is absent to digits/foot. Neurologic: Gross sensation intact. Decreased light touch sensation. Absent protective sensation tested with 5.07g Randolph Zen monofilament. Lack of protective sensation consistent with diabetic peripheral polyneuropathy Dermatologic: There is varicosities noted to the lower extremity with subsequent edema about foot and LIANNA ankle. Distal Hallux tuft ulceration remains healed. There is a full thickness ulceration to the posterior lateral heel ulceration with newly epithelializing skin. No signs of infection. Musculoskeletal: Muscle strength 5 of 5 age-appropriate. Decreased range of motion of the ankle joint in dorsiflexion with the knee extended without pain or crepitus. Decreased range of motion of the first metatarsophalangeal joint without pain or crepitus. There is hammertoe deformity of digits 1 through 5. Skin no rashes or lesions noted, skin turgor normal and no jaundice Neuro moves all extremities Debridement Note Debridement Note No debridement was completed: No debridement was completed today Post-Debridement Measurements and Additional Note: Post-Debridement Measurements/Treatment WC - Nurse 1 - General Ulcer Assessment Start: 07/17/24 10:38 Freq: Status: Active Protocol: LAM.LOWEXT Activity Type Activity Date Activity User E-sign Co-sign Detail Recorded Client Recorded Date Recorded By Document 07/17/24 10:39 KW [id number] 07/17/24 10:51 KW Document 07/24/24 11:13 KW [id number] 07/24/24 11:20 KW Document 07/31/24 10:18 KW [id number] 07/31/24 10:23 KW 07/17/24 07/24/24 07/31/24 10:39 11:13 10:18 - Today's Visit Information Type of service Follow-up Visit Follow-up Visit Follow-up Visit (Physician/BOBBIN CLEANER HAND (Physician/BOBBIN CLEANER HAND (Physician/BOBBIN CLEANER [employer] ) ) ) Arrival Mode Ambulatory, Ambulatory, Walker Walker Accompanied by Patient Identification Verified (Name & Yes Yes Yes ) Vital Signs Temperature (97.8 F-99.1 F) 98.3 F 96.7 F L 97.6 F L Temperature Source Temporal Temporal Temporal Pulse Rate (60-100) 81 82 90 Pulse Location Monitor Monitor Monitor Respiratory Rate (12-18) 18 18 18 Respiratory rate source Observation Observation Observation Oxygen Delivery Method Room Air Room Air Room Air Blood Pressure (90/60-120/80) 157/82 H 176/78 H 162/76 H Blood Pressure Mean (mm Hg) 107 110 104 Source Monitor Monitor Monitor Position Semi-Fowlers Semi-Fowlers Semi-Fowlers Blood Pressure Location Left Arm Left Arm Left Arm History Since Last Visit- (Skip if this is Patient's initial visit) Have you changed medications since your No No No last visit? Any new allergies or adverse reactions No No No Had a fall/change in ADL's that may No No No increase risk of falls Signs or symptoms of abuse and/or No No No neglect since last visit Have you been in the hospital since your No No No last visit? Has dressing in place as prescribed Yes Yes Yes Has compression in place as prescribed Yes Yes Yes Has offloadiing in place as prescribed Yes Yes Yes Experienced any changes in pain level or No No No management Left Footwear Regular Shoe Regular Shoe Regular Shoe Right Footwear Surgical Shoe Surgical Shoe Surgical Shoe with pressure with pressure with pressure relief insole relief insole relief insole Pain Scale: 0-10 Numeric Is Patient Pain Free? Yes Yes Yes - Nurse 1 - General Ulcer Measurement Start: 07/17/24 10:38 Freq: Status: Active Protocol: Activity Type Activity Date Activity User E-sign Co-sign Detail Recorded Client Recorded Date Recorded By Document 07/17/24 10:39 KW [id number] 07/17/24 10:51 KW Document 12/12/24 11:13 KW [id number] 07/24/24 11:20 KW Document 07/31/24 10:18 KW [id number] 07/31/24 10:23 KW 07/17/24 07/24/24 07/31/24 10:39 11:13 10:18 Wound Center Nurse 1 #4 RT GREAT TOE -Current Size (cm) - Length 0.1 0 -Current Size (cm) - Width 0.1 0 -Current Size (cm) - Depth 0 0 -Total Square Cm 0.01 0 -Date of Last Picture (Recall this 07/17/24 field) -Exudate Amt None Present None Present -Granulation Amt None Present (0 %) -Necrosis Amt Large (67-100%) -Necrotic Tissue Type Adherent Slough -Texture (Lianna-wound Skin Appearance) Assessed,Callus Assessed -Moisture (Lianna-wound Skin Appearance) Assessed,Dry/ Assessed,Dry/ Scaly Scaly -Color (Lianna-wound Skin Appearance) Assessed Assessed -Temperature (Lianna-wound Skin No Abnormality No Abnormality Appearance) (Pt Warm) (Pt Warm) -Tenderness on Palpation (Lianna-wound No No Skin Appearance) -Ulcer Cleansing Soap and Water -Foul Odor after Cleansing No -Anesthetic Used 5% Lidocaine Gel #5 R Heel -Current Size (cm) - Length 0.1 0.5 0.1 -Current Size (cm) - Width 0.1 0.3 0.1 -Current Size (cm) - Depth 0.1 1 0 -Total Square Cm 0.01 0.15 0.01 -Date of Last Picture (Recall this 07/17/24 07/24/24 07/31/24 field) -Epithelialization Large 67-100% -Exudate Amt Small Small None Present -Exudate Type Serosanguineous Serosanguineous -Wound Margin Distinct, Distinct, Outline Outline Attached Attached -Granulation Amt Small (1-33%) Small (1-33%) None Present (0 %) -Granulation Quality Red Red -Necrosis Amt Large (67-100%) Small (1-33%) -Necrotic Tissue Type Adherent Slough Eschar -Texture (Lianna-wound Skin Appearance) Assessed,Callus Assessed Assessed -Moisture (Lianna-wound Skin Appearance) Assessed,Dry/ Assessed,Dry/ Assessed,Dry/ Scaly Scaly Scaly -Color (Lianna-wound Skin Appearance) Assessed Assessed Assessed -Temperature (Lianna-wound Skin No Abnormality No Abnormality No Abnormality Appearance) (Pt Warm) (Pt Warm) (Pt Warm) -Tenderness on Palpation (Lianna-wound No No No Skin Appearance) -Ulcer Cleansing Rinsed/ Rinsed/ Rinsed/ Irrigated with Irrigated with Irrigated with Saline Saline Saline -Foul Odor after Cleansing No No No -Anesthetic Used 5% Lidocaine 5% Lidocaine 5% Lidocaine Gel Gel Gel -Wound Comment(s) scabbed, possibly healed WC - Nurse 2 - General Ulcer CM Notes Start: 07/17/24 10:38 Freq: Status: Active Protocol: Activity Type Activity Date Activity User E-sign Co-sign Detail Recorded Client Recorded Date Recorded By Document 07/17/24 10:57 [facility] [id number] 07/17/24 11:03 [employer] Document 07/24/24 11:39 [employer] [id number] 07/24/24 11:43 [facility] Document 07/31/24 10:45 [facility] [id number] 07/31/24 10:47 [facility] 07/17/24 07/24/24 07/31/24 10:57 11:39 10:45 Wound Center Nurse 2 #4 RT GREAT TOE -Time 11:39 -Post Debridement (cm) - Length 0.1 0 -Post Debridement (cm) - Width 0.1 0 -Post Debridement (cm) - Depth 0.1 0 -Total Square (Post) (cm) 0.01 0 -Area of Debridement (cm) - Length 0.1 0 -Area of Debridement (cm) - Width 0.1 0 -Total Square (Area) (cm) 0.01 0 -Wound/Ulcer Outcome Not Healed Healed- Epithelialized -Bleeding Controlled with NA NA #5 R Heel -Time 10:58 11:39 10:47 -Correct Patient Yes Yes -Correct Side, Site, Position Yes Yes -Correct Procedure Yes Yes -Procedure Performed Yes Yes -Type of Procedure Debridement Debridement -Clinical Debridement Subcutaneous Subcutaneous -Tissue Removed Subcutaneous Subcutaneous -Post Debridement (cm) - Length 0.5 0.4 0.1 -Post Debridement (cm) - Width 0.4 0.3 0.1 -Post Debridement (cm) - Depth 0.1 0.1 0.1 -Total Square (Post) (cm) 0.20 0.12 0.01 -Area of Debridement (cm) - Length 0.5 0.4 0.1 -Area of Debridement (cm) - Width 0.4 0.3 0.1 -Total Square (Area) (cm) 0.20 0.12 0.01 -Tunneling No No -Undermining/Tunneling No No -Circular Undermining No No -Wound/Ulcer Outcome Not Healed Not Healed -Ulcer Cleansing Rinsed/ Rinsed/ Irrigated with Irrigated with Saline Saline -Foul Odor after Cleansing No No -Bioengineered Tissue No No -Bleeding Controlled with Pressure Pressure NA -Treatment Response Procedure Procedure Tolerated Well Tolerated Well -Debridement - Subq, 1st 20sq cm Yes Yes Pain Scale: 0-10 Numeric Is Patient Pain Free? Yes Yes Yes - Nurse 3 - General Ulcer D/C NN Start: 07/17/24 10:38 Freq: Status: Active Protocol: Activity Type Activity Date Activity User E-sign Co-sign Detail Recorded Client Recorded Date Recorded By Document 07/17/24 11:15 KW [id number] 07/17/24 11:16 KW Document 07/24/24 11:50 KW [id number] 07/24/24 11:51 KW Document 07/31/24 11:09 DL [id number] 07/31/24 11:10 DL 07/17/24 07/24/24 07/31/24 11:15 11:50 11:09 Wound Care Center Nurse 3 #4 RT GREAT TOE -Other Dressing leave flotation operator #5 R Heel -Ulcer Cleansing Rinsed/ Irrigated with Saline -Foul Odor after Cleansing No -Primary Dressing Applied Mepilex Border -Other Dressing pt own magalis pt own magalis -Primary Dressing Covered/Secured with Dry Gauze & Dry Gauze & Roll Gauze, Roll Gauze, Secured with Secured with Tape Tape -Mepilex Border 1 Right -Tubular Bandage Single Layer -Size of Tubigrip Used Size F -Size F ($) 1 -Other tubigrip Treatment Response Procedure Tolerated Well Pain Scale: 0-10 Numeric Is Patient Pain Free? Yes Yes Yes - Visit Discharge Discharge Condition Stable Stable Stable Ambulatory Status Walker Ambulatory, Ambulatory, Walker Walker Transportation Private Auto Private Auto Private Auto Medication Reconcilliation completed & No No provided to patient/care provider Clinical Summary of Care Provided Yes Yes Assessment/Plan Assessment/Plan (1) Chronic ulcer of right heel with fat layer exposed: CODE(S): L97.412 - Non-pressure chronic ulcer of right heel and midfoot with fat layer exposed (2) Non-pressure chronic ulcer of other part of right foot with fat layer exp osed: CODE(S): L97.512 - Non-pressure chronic ulcer of other part of right foot with fat layer exposed (3) Acute painful diabetic polyneuropathy: CODE(S): E11.42 - Type 2 diabetes mellitus with diabetic polyneuropathy (4) Type 2 diabetes mellitus with foot ulcer: CODE(S): E11.621 - Type 2 diabetes mellitus with foot ulcer; L97.509 - Non-pressure chronic ulcer of other part of unspecified foot with unspecified severity QUALIFIERS: Diabetes mellitus technician terminal and repeater insulin use: with technician terminal and repeater use Qualified Code(s): E11.621 - Type 2 diabetes mellitus with foot ulcer; L97.509 - Non-pressure chronic ulcer of other part of unspecified foot with unspecified severity; Z79.4 - technician terminal and repeater (current) use of insulin (5) Lymphedema: CODE(S): I89.0 - Lymphedema, not elsewhere classified (6) Debility: CODE(S): R53.81 - Other malaise (7) Lower extremity edema: CODE(S): R60.0 - Localized edema PLAN: Plan Patient seen and evaluated Pre-debridement: Hallux healed ; Right Heel measuring 0.1 x 0.1 x 0.1 Ulceration did undergo debridement as noted in the clinical panel above. Right hallux distal tuft ulceration has healed, and right posterior lateral heel ulceration measures 0.1 x 0.1 x 0.1. No signs of infection. XL SAP dressing applied to right posterior heel ulceration to pad and protect the site. He is to change dressing daily. He is aware that per our discussion that he is developing continued pressure ulceration at the hallux again since his return to shoe gear as he continues to curl toes down during gait. Previous offloading padding remains in place to the plantar side of his diabetic insert. Will also continue to offload with crest padding to the Hallux to prevent recidivism. Right hallux remains healed today vs previous visit but remains at risk due to continued pressure. Right posterior heel ulceration continues improvement and is decreased in size versus previous visit with newly epithelializing skin. Overall healing well. Discussed continue supportive shoe gear with digital offloading pad in place to the plantar side of his diabetic insert to prevent hammering of the hallux which I believe is causing pressure and ulceration. Previously discussed possible surgical intervention for aiding in offloading of the hallux. Discussed continued wearing of Tubigrip compression stockings until ulcerations have healed at which time he will change to bilateral compression stocking. Discussed continuing to elevate feet at all times of rest for edema control. Discussed adequate protein intake to continue to aid in wound healing. Florentin supplementation was recommended. Discussed proper diabetic diet in addition to the stated above to ensure adequate wound healing. Patient states that his sugars have been up but not above 200. does state he does eat things that he should not though. Last visit with PCP demonstrates increase in weight. He has continued taking the instructed supplements for his neuropathy consisting of of complex B vitamin daily, magnesium 250 mg daily, alpha lipoic acid 300 mg daily, and 500 mg glutamine supplement. Discussed continuing to take it and allow time for the nerves to continue repair. Discussed signs and symptoms of infection. Discussed with the patient if he notices redness about the wound margins that continues to spread or moves up the leg, any purulent drainage from the wound site, increasing foul odor from the wound or if he experiences fever greater than 101 degree accompanied by nausea, vomiting, chills, that these are signs of a progressing infection and he should report to the ED for IV antibiotics and further evaluation. He and his voiced understanding of this today. The following work up and care recommendations were made: Dressing: [place] SAP dressing to pad and protect right heel, Change daily. Will continue offloading with diabetic inserts and Lal's extension/crest pad offloading to hallux. Wash: Soap and water Tissue growth optimization: None Offload: Elevating lower extremities at rest. Vascular: DP and PT pulses are weakly palpable with adequate capillary fill time. Do not feel that vascular status is affecting wound healing. Edema: Continue elevating lower extremities at all times of rest. Continue wearing Tubigrip compression stocking. Discussed eventual change to a standard prescription compression stocking once wounds have healed. Infection: No signs of infection. Wound cultures were taken given patient's prior history of recurrent bacterial infection at the sites. Pain: May take [id number] Tylenol for discomfort Host factors: DM type II with peripheral polyneuropathy, HTN, morbid obesity, lymphedema I answered all the patient's questions. To return to the wound healing center in 2 weeks or call sooner if the patient has any questions or concerns.
--- NOTE | 2024-08-04 12:02 | WC ---
PHOTO 07/31/24 RIGHT HEEL
== END 2024-08-12 23:59 | disposition home or self-care (01) ==
LOC: WC 10:30
PROVIDERS: PCP Internal Medicine; Referring Provider Internal Medicine; Visit Provider Student in an Organized Health Care Education/Training Program
DX: E11.621 Type 2 diabetes mellitus with foot ulcer (principal); L97.412 Non-pressure chronic ulcer of right heel and midfoot with fat layer exposed; L97.512 Non-pressure chronic ulcer of other part of right foot with fat layer exposed; E66.01 Morbid (severe) obesity due to excess calories; E11.42 Type 2 diabetes mellitus with diabetic polyneuropathy; Z79.4 Long term (current) use of insulin; I10 Essential (primary) hypertension; E78.00 Pure hypercholesterolemia, unspecified; I89.0 Lymphedema, not elsewhere classified; R60.0 Localized edema; Z79.01 Long term (current) use of anticoagulants; Z79.82 Long term (current) use of aspirin; Z79.85 Long-term (current) use of injectable non-insulin antidiabetic drugs; Z79.899 Other long term (current) drug therapy; Z96.652 Presence of left artificial knee joint; Z86.711 Personal history of pulmonary embolism
CPT/HCPCS: 11042; 99213; G0463

== ENCOUNTER 2024-08-28 11:15 | Outpatient (RCR) | payer MEDICARE, BC, SELFPAY ==
[2024-08-13 00:21] VITALS: BP 109/90; PULSE 84; RESP 22; TEMP 36.5
[2024-08-14 11:28] VITALS: BP 171/117; PULSE 89; RESP 18; TEMP 36.5
--- NOTE | 2024-08-14 12:55 | PN.PCM_ITS ---
History of Present Illness Date of Service: 08/14/24 Chief Complaint: Right heel ulcer and right hallux ulcer History of Wound: 68 year old male presents to the wound center for evaluation of his right heal ulcer. It started as a a pressure ulcer in February 2022 when he he was in TCU and it healed. It then became a blister right before his Left TKR surgery. He had his left knee replaced 07/14/22 at [facility]. 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 He also has a history of diabetes type II with peripheral polyneuropathy, HTN, lymphedema, hypercholesterolemia and PE that he is on Xerelto. Wound culture obtained on 08/30/22 which are positive for VRE, Kocuria kristinae and Corynebacterium striatum. He will completed the Linezolid. Wound culture obtained 06/20/23 which was positive for Staphylococcus pseudintermediu, Pseudomonas aeruginosa, Corynebacterium minutissiumum, and Anaerobic cocci. He was started on Levaquin and Flagyl. Foot xray 09/27/22 - Osteopenia with diffuse osteoarthritic changes. Diffuse soft tissue swelling with ossification of the distal Achilles tendon. No acute abnormality or evidence of erosive changes. Did undergo updated radiograph of the right foot 11/08/2023 with no noted changes from previous x-ray. This is a recurring ulceration to both distal medial tuft of the right hallux and posterior lateral heel. He states both sites had scabbed up and he was previously discharged however scabs have later broken down with re-ulceration. Wound care -currently applying Joelle daily and is offloading and surgical shoe to the right foot. He denies any fever, chills, nausea and vomiting. Denies further complaints. Subjective Subjective This is a 68-year-old male who presents to the wound care center for continued follow-up of right hallux distal tuft ulceration and right posterior lateral calcaneal ulceration. Patient reports history of recurring ulcerations of these 2 specific sites over the last several years. Continues to offload Hallux site and site remains in good standing. Continues wearing offloading foam boot in bed. Has continued to utilize his lymphedema pumps. Continues care for right heel ulceration padding and protecting newly epithelialized. States sugars are controlled. Denies constitutional symptoms. Denies further complaints. Objective Data Objective Data Vital Signs: Vital Signs Temp Pulse Resp BP O2 Del Method 97.7 F L 89 18 171/117 H Room Air 08/14/24 11:28 08/14/24 11:28 08/14/24 11:28 08/14/24 11:28 08/14/24 11:28 Oxygen Delivery Method Room Air Physical Exam Const alert, oriented x3 and no apparent distress General Appearance: cooperative HEENT normocephalic Eyes General Eye: normal appearance of both eyes Neck General: normal visual inspection Lymph Lymphatic: no lymphadenopathy noted and no lymphedema noted Resp normal respiratory effort Cardio regular rate and regular rhythm Extremity no calf tenderness Extremity Narrative: Vascular: DP and PT pulses weakly palpable. CFT less than 5 seconds to the digits. Normal temperature gradient. Hair growth is absent to digits/foot. Neurologic: Gross sensation intact. Decreased light touch sensation. Absent protective sensation tested with 5.07g [place] Zen monofilament. Lack of protective sensation consistent with diabetic peripheral polyneuropathy Dermatologic: There is varicosities noted to the lower extremity with subsequent edema about foot and LIANNA ankle. Distal Hallux tuft ulceration remains healed. There is a full thickness ulceration to the posterior lateral heel ulceration with continued epithelializing skin. No signs of infection. Musculoskeletal: Muscle strength 5 of 5 age-appropriate. Decreased range of motion of the ankle joint in dorsiflexion with the knee extended without pain or crepitus. Decreased range of motion of the first metatarsophalangeal joint without pain or crepitus. There is hammertoe deformity of digits 1 through 5. Skin no rashes or lesions noted and skin turgor normal Neuro moves all extremities Debridement Note Debridement Note No debridement was completed: No debridement was completed today Post-Debridement Measurements and Additional Note: Post-Debridement Measurements/Treatment WC - Nurse 1 - General Ulcer Assessment Start: 08/14/24 11:28 Freq: Status: Active Protocol: NELL Activity Type Activity Date Activity User E-sign Co-sign Detail Recorded Client Recorded Date Recorded By Document 08/14/24 11:28 KW [id number] 08/14/24 11:36 KW 08/14/24 11:28 - Today's Visit Information Type of service Follow-up Visit (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 Any new allergies or adverse reactions No Had a fall/change in ADL's that may No increase risk of falls Signs or symptoms of abuse and/or No neglect since last visit Have you been in the hospital since your No last visit? Has dressing in place as prescribed Yes Has compression in place as prescribed Yes Has offloadiing in place as prescribed Yes Experienced any changes in pain level or No management Left Footwear Regular Shoe Right Footwear Regular Shoe Pain Scale: 0-10 Numeric Is Patient Pain Free? Yes WC - Nurse 1 - General Ulcer Measurement Start: 08/14/24 11:28 Freq: Status: Active Protocol: Activity Type Activity Date Activity User E-sign Co-sign Detail Recorded Client Recorded Date Recorded By Document 08/14/24 11:28 KW [id number] 08/14/24 11:36 KW 08/14/24 11:28 Wound Center Nurse 1 #5 R Heel -Current Size (cm) - Length 0.1 -Current Size (cm) - Width 0.1 -Current Size (cm) - Depth 0.1 -Total Square Cm 0.01 -Date of Last Picture (Recall this 08/14/24 field) -Exudate Amt Small -Exudate Type Serosanguineous -Wound Margin Distinct, Outline Attached -Necrosis Amt Large (67-100%) -Necrotic Tissue Type Eschar -Texture (Lianna-wound Skin Appearance) Assessed -Moisture (Lianna-wound Skin Appearance) Assessed -Color (Lianna-wound Skin Appearance) Assessed -Temperature (Lianna-wound Skin No Abnormality Appearance) (Pt Warm) -Tenderness on Palpation (Lianna-wound No Skin Appearance) -Ulcer Cleansing Soap and Water -Foul Odor after Cleansing No -Anesthetic Used 5% Lidocaine Gel -Wound Comment(s) scabbed over WC - Nurse 2 - General Ulcer CM Notes Start: 08/14/24 11:28 Freq: Status: Active Protocol: Activity Type Activity Date Activity User E-sign Co-sign Detail Recorded Client Recorded Date Recorded By Document 08/14/24 12:07 [facility] [id number] 08/14/24 12:09 [facility] 08/14/24 12:07 Wound Center Nurse 2 -Time 12:07 -Post Debridement (cm) - Length 0.1 -Post Debridement (cm) - Width 0.1 -Post Debridement (cm) - Depth 0.1 -Total Square (Post) (cm) 0.01 -Area of Debridement (cm) - Length 0.1 -Area of Debridement (cm) - Width 0.1 -Total Square (Area) (cm) 0.01 -Wound/Ulcer Outcome Not Healed -Bleeding Controlled with NA Pain Scale: 0-10 Numeric Is Patient Pain Free? Yes - Nurse 3 - General Ulcer D/C NN Start: 08/14/24 11:28 Freq: Status: Active Protocol: Activity Type Activity Date Activity User E-sign Co-sign Detail Recorded Client Recorded Date Recorded By Document 08/14/24 12:15 DL [id number] 08/14/24 12:16 DL 08/14/24 12:15 Wound Care Center Nurse 3 #5 R Heel -Primary Dressing Applied Mepilex Border -Mepilex Border 1 Right -Other tubigrip Treatment Response Procedure Tolerated Well Pain Scale: 0-10 Numeric Is Patient Pain Free? 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: CODE(S): L97.412 - Non-pressure chronic ulcer of right heel and midfoot with fat layer exposed (2) Non-pressure chronic ulcer of other part of right foot with fat layer exposed: CODE(S): L97.512 - Non-pressure chronic ulcer of other part of right foot with fat layer exposed (3) Acute painful diabetic polyneuropathy: CODE(S): E11.42 - Type 2 diabetes mellitus with diabetic polyneuropathy (4) Type 2 diabetes mellitus with foot ulcer: CODE(S): E11.621 - Type 2 diabetes mellitus with foot ulcer; L97.509 - Non-pressure chronic ulcer of other part of unspecified foot with unspecified severity QUALIFIERS: Diabetes mellitus long term care pharmacist insulin use: with longterm use Qualified Code(s): E11.621 - Type 2 diabetes mellitus with foot ulcer; L97.509 - Non-pressure chronic ulcer of other part of unspecified foot with unspecified severity; Z79.4 - halfway (current) use of insulin (5) Lymphedema: CODE(S): I89.0 - Lymphedema, not elsewhere classified (6) Lower extremity edema: CODE(S): R60.0 - Localized edema (7) Debility: CODE(S): R53.81 - Other malaise PLAN: Plan Patient seen and evaluated Pre-debridement: Hallux healed ; Right Heel measuring 0.1 x 0.1 x 0.1 Ulceration did not undergo debridement as noted in the clinical panel above. Right hallux distal tuft ulceration has healed, and right posterior lateral heel ulceration measures 0.1 x 0.1 x 0.1. No signs of infection. XL SAP dressing applied to right posterior heel ulceration to pad and protect the site. He is to change dressing daily. He is aware that per our discussion that he is developing continued pressure ulceration at the hallux again since his return to shoe gear as he continues to curl toes down during gait. Previous offloading padding remains in place to the plantar side of his diabetic insert. Will also continue to offload with crest padding to the Hallux to prevent recidivism. Right hallux remains healed today vs previous visit but remains at risk due to continued pressure. Right posterior heel ulceration continues improvement versus previous visit with continued epithelializing skin. Overall healing well. Discussed continue supportive shoe gear with digital offloading pad in place to the plantar side of his diabetic insert to prevent hammering of the hallux which I believe is causing pressure and ulceration. Previously discussed possible surgical intervention for aiding in offloading of the hallux. Discussed continued wearing of Tubigrip compression stockings until ulcerations have healed at which time he will change to bilateral compression stocking. Discussed continuing to elevate feet at all times of rest for edema control. Discussed adequate protein intake to continue to aid in wound healing. Florentin supplementation was recommended. Discussed proper diabetic diet in addition to the stated above to ensure adequate wound healing. Patient states that his sugars have been up but not above 200. does state he does eat things that he should not though. Last visit with PCP demonstrates increase in weight. He has continued taking the instructed supplements for his neuropathy consisting of of complex B vitamin daily, magnesium 250 mg daily, alpha lipoic acid 300 mg daily, and 500 mg glutamine supplement. Discussed continuing to take it and allow time for the nerves to continue repair. Discussed signs and symptoms of infection. Discussed with the patient if he notices redness about the wound margins that continues to spread or moves up the leg, any purulent drainage from the wound site, increasing foul odor from the wound or if he experiences fever greater than 101 degree accompanied by nausea, vomiting, chills, that these are signs of a progressing infection and he should report to the ED for IV antibiotics and further evaluation. He and his voiced understanding of this today. The following work up and care recommendations were made: Dressing: Louisa SAP dressing to pad and protect right heel, Change daily. Will continue offloading with diabetic inserts and Lal's extension/crest pad offloading to hallux. Wash: Soap and water Tissue growth optimization: None Offload: Elevating lower extremities at rest. Vascular: DP and PT pulses are weakly palpable with adequate capillary fill time. Do not feel that vascular status is affecting wound healing. Edema: Continue elevating lower extremities at all times of rest. Continue wearing Tubigrip compression stocking. Discussed eventual change to a standard prescription compression stocking once wounds have healed. Infection: No signs of infection. Wound cultures were taken given patient's prior history of recurrent bacterial infection at the sites. Pain: May take [id number] Tylenol for discomfort Host factors: DM type II with peripheral polyneuropathy, HTN, morbid obesity, lymphedema I answered all the patient's questions. To return to the wound healing center in 2 weeks or call sooner if the patient has any questions or concerns.
--- NOTE | 2024-08-18 12:03 | WC ---
PHOTO 08/14/24 RIGHT HEEL
[2024-08-28 11:11] VITALS: BP 194/91; PULSE 84; RESP 18
--- NOTE | 2024-08-28 11:35 | PN.PCM_ITS ---
History of Present Illness Date of Service: 08/28/24 Chief Complaint: Right heel ulcer and right hallux ulcer History of Wound: 68 year old male presents to the wound center for evaluation of his right heal ulcer. It started as a a pressure ulcer in February 2022 when he he was in TCU and it healed. It then became a blister right before his Left TKR surgery. He had his [facility]14/22 [facility]. 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 He also has a history of diabetes type II with peripheral polyneuropathy, HTN, lymphedema, hypercholesterolemia and PE that he is on Xerelto. Wound culture obtained on 08/30/22 which are positive for VRE, Kocuria kristinae and Corynebacterium striatum. He will completed the Linezolid. Wound culture obtained 06/20/23 which was positive for Staphylococcus pseudintermediu, Pseudomonas aeruginosa, Corynebacterium minutissiumum, and Anaerobic cocci. He was started on Levaquin and Flagyl. Foot xray 09/27/22 - Osteopenia with diffuse osteoarthritic changes. Diffuse soft tissue swelling with ossification of the distal Achilles tendon. No acute abnormality or evidence of erosive changes. Did undergo updated radiograph of the right foot 11/08/2023 with no noted changes from previous x-ray. This is a recurring ulceration to both distal medial tuft of the right hallux and posterior lateral heel. He states both sites had scabbed up and he was previously discharged however scabs have later broken down with re-ulceration. Wound care -currently applying Joelle daily and is offloading and surgical shoe to the right foot. He denies any fever, chills, nausea and vomiting. Denies further complaints. Subjective Subjective This is a 68-year-old male who presents to the wound care center for continued follow-up of right hallux distal tuft ulceration and right posterior lateral calcaneal ulceration. Patient reports history of recurring ulcerations of these 2 specific sites over the last several years. Continues to offload Hallux site and site remains in good standing. Continues wearing offloading foam boot in bed. Has continued to utilize his lymphedema pumps. Continues care for right heel ulceration padding and protecting newly epithelialized skin and feels the wound is healed today. States sugars are controlled. Denies constitutional symptoms. Denies further complaints. Objective Data Objective Data Vital Signs: Vital Signs Temp Pulse Resp BP O2 Del Method 97.7 F L 84 18 194/91 H Room Air 08/14/24 11:28 08/28/24 11:11 08/28/24 11:11 08/28/24 11:11 08/28/24 11:11 Oxygen Delivery Method Room Air Physical Exam Const alert, oriented x3 and no apparent distress General Appearance: cooperative HEENT normocephalic Eyes General Eye: normal appearance of both eyes Neck General: normal visual inspection Lymph Lymphatic: no lymphadenopathy noted and no lymphedema noted Resp normal respiratory effort Cardio regular rate and regular rhythm Extremity no calf tenderness Extremity Narrative: Vascular: DP and PT pulses weakly palpable. CFT less than 5 seconds to the digits. Normal temperature gradient. Hair growth is absent to digits/foot. Neurologic: Gross sensation intact. Decreased light touch sensation. Absent protective sensation tested with 5.07g [place] Zen monofilament. Lack of protective sensation consistent with diabetic peripheral polyneuropathy Dermatologic: There is varicosities noted to the lower extremity with subsequent edema about foot and LIANNA ankle. Distal Hallux tuft ulceration remains healed. Site of full thickness ulceration to the posterior lateral heel ulceration has healed. No signs of infection. Musculoskeletal: Muscle strength 5 of 5 age-appropriate. Decreased range of motion of the ankle joint in dorsiflexion with the knee extended without pain or crepitus. Decreased range of motion of the first metatarsophalangeal joint without pain or crepitus. There is hammertoe deformity of digits 1 through 5. Skin no rashes or lesions noted and skin turgor normal Neuro moves all extremities Debridement Note Debridement Note No debridement was completed: No debridement was completed today Post-Debridement Measurements and Additional Note: Post-Debridement Measurements/Treatment - Nurse 1 - General Ulcer Assessment Start: 08/14/24 11:28 Freq: Status: Active Protocol: NELL Activity Type Activity Date Activity User E-sign Co-sign Detail Recorded Client Recorded Date Recorded By Document 08/14/24 11:28 KW [id number] 08/14/24 11:36 KW Document 08/28/24 11:11 KW [id number] 08/28/24 11:17 KW 08/14/24 08/28/24 11:28 11:11 - Today's Visit Information Type of service Follow-up Visit Follow-up Visit (Physician/MANAGER WATER WASTEWATER (Physician/MANAGER WATER WASTEWATER ) ) Arrival Mode Ambulatory, Ambulatory, Walker Walker Patient Identification Verified (Name & Yes Yes ) Vital Signs Temperature (97.8 F-99.1 F) 97.7 F L Temperature Source Temporal Pulse Rate (60-100) 89 84 Pulse Location Monitor Monitor Respiratory Rate (12-18) 18 18 Respiratory rate source Observation Observation Oxygen Delivery Method Room Air Room Air Blood Pressure (90/60-120/80) 171/117 H 194/91 H Blood Pressure Mean (mm Hg) 135 125 Source Monitor Monitor Position Semi-Fowlers Sitting Blood Pressure Location Left Forearm Left Forearm History Since Last Visit- (Skip if this is Patient's initial visit) Have you changed medications since your No No last visit? Any new allergies or adverse reactions No No Had a fall/change in ADL's that may No No increase risk of falls Signs or symptoms of abuse and/or No No neglect since last visit Have you been in the hospital since your No No last visit? Has dressing in place as prescribed Yes Yes Has compression in place as prescribed Yes N/A Has offloadiing in place as prescribed Yes Yes Experienced any changes in pain level or No No management Left Footwear Regular Shoe Regular Shoe Right Footwear Regular Shoe Surgical Shoe with pressure relief insole Pain Scale: 0-10 Numeric Is Patient Pain Free? Yes Yes - Nurse 1 - General Ulcer Measurement Start: 08/14/24 11:28 Freq: Status: Active Protocol: Activity Type Activity Date Activity User E-sign Co-sign Detail Recorded Client Recorded Date Recorded By Document 08/14/24 11:28 KW [id number] 08/14/24 11:36 KW Document 08/28/24 11:11 KW [id number] 08/28/24 11:17 KW 08/14/24 08/28/24 11:28 11:11 Wound Center Nurse 1 #5 R Heel -Current Size (cm) - Length 0.1 0 -Current Size (cm) - Width 0.1 0 -Current Size (cm) - Depth 0.1 0 -Total Square Cm 0.01 0 -Date of Last Picture (Recall this 08/14/24 08/28/24 field) -Exudate Amt Small None Present -Exudate Type Serosanguineous -Wound Margin Distinct, Outline Attached -Necrosis Amt Large (67-100%) -Necrotic Tissue Type Eschar -Texture (Lianna-wound Skin Appearance) Assessed Assessed -Moisture (Lianna-wound Skin Appearance) Assessed Assessed -Color (Lianna-wound Skin Appearance) Assessed Assessed -Temperature (Lianna-wound Skin No Abnormality No Abnormality Appearance) (Pt Warm) (Pt Warm) -Tenderness on Palpation (Lianna-wound No No Skin Appearance) -Ulcer Cleansing Soap and Water -Foul Odor after Cleansing No No -Anesthetic Used 5% Lidocaine Gel -Wound Comment(s) scabbed over closed WC - Nurse 2 - General Ulcer CM Notes Start: 08/14/24 11:28 Freq: Status: Active Protocol: Activity Type Activity Date Activity User E-sign Co-sign Detail Recorded Client Recorded Date Recorded By Document 08/14/24 12:07 [facility] [id number] 08/14/24 12:09 [facility] 08/14/24 12:07 Wound Center Nurse 2 -Time 12:07 -Post Debridement (cm) - Length 0.1 -Post Debridement (cm) - Width 0.1 -Post Debridement (cm) - Depth 0.1 -Total Square (Post) (cm) 0.01 -Area of Debridement (cm) - Length 0.1 -Area of Debridement (cm) - Width 0.1 -Total Square (Area) (cm) 0.01 -Wound/Ulcer Outcome Not Healed -Bleeding Controlled with NA Pain Scale: 0-10 Numeric Is Patient Pain Free? Yes - Nurse 3 - General Ulcer D/C NN Start: 08/14/24 11:28 Freq: Status: Active Protocol: Activity Type Activity Date Activity User E-sign Co-sign Detail Recorded Client Recorded Date Recorded By Document 08/14/24 12:15 DL [id number] 08/14/24 12:16 DL Document 08/28/24 11:30 KW [id number] 08/28/24 11:31 KW 08/14/24 08/28/24 12:15 11:30 Wound Care Center Nurse 3 #5 R Heel -Primary Dressing Applied Mepilex Border -Mepilex Border 1 Right -Tubular Bandage Single Layer -Size of Tubigrip Used Size F -Size F ($) 1 -Other tubigrip Treatment Response Procedure Tolerated Well Pain Scale: 0-10 Numeric Is Patient Pain Free? 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: CODE(S): L97.412 - Non-pressure chronic ulcer of right heel and midfoot with fat layer exposed (2) Non-pressure chronic ulcer of other part of right foot with fat layer exposed: CODE(S): L97.512 - Non-pressure chronic ulcer of other part of right foot with fat layer exposed (3) Acute painful diabetic polyneuropathy: CODE(S): E11.42 - Type 2 diabetes mellitus with diabetic polyneuropathy (4) Type 2 diabetes mellitus with foot ulcer: CODE(S): E11.621 - Type 2 diabetes mellitus with foot ulcer; L97.509 - Non-pressure chronic ulcer of other part of unspecified foot with unspecified severity QUALIFIERS: Diabetes mellitus long distance billing operator insulin use: with long distance billing operator use Qualified Code(s): E11.621 - Type 2 diabetes mellitus with foot ulcer; L97.509 - Non-pressure chronic ulcer of other part of unspecified foot with unspecified severity; Z79.4 - senior care (current) use of insulin (5) Lymphedema: CODE(S): I89.0 - Lymphedema, not elsewhere classified (6) Lower extremity edema: CODE(S): R60.0 - Localized edema (7) Debility: CODE(S): R53.81 - Other malaise PLAN: Plan Patient seen and evaluated Pre-debridement: Hallux healed ; Right Heel healed Ulceration did not undergo debridement as noted in the clinical panel above. Right hallux distal tuft ulceration remains healed, and right posterior lateral heel ulceration has healed. No signs of infection. He is aware that per our discussion that he is developing continued pressure ulceration at the hallux again since his return to shoe gear as he continues to curl toes down during gait. Previous offloading padding remains in place to the plantar side of his diabetic insert. Will also continue to offload with crest padding to the Hallux to prevent recidivism. Right hallux remains healed today vs previous visit but remains at risk due to continued pressure. Right posterior heel ulceration healed today versus previous visit. Discussed continue supportive shoe gear with digital offloading pad in place to the plantar side of his diabetic insert to prevent hammering of the hallux which I believe is causing pressure and ulceration. Previously discussed possible surgical intervention for aiding in offloading of the hallux. Would like to continue conservative management. Discussed continued wearing of Tubigrip compression stockings until ulcerations have healed at which time he will change to bilateral compression stocking. Discussed continuing to elevate feet at all times of rest for edema control. Discussed adequate protein intake to continue to aid in wound healing. Florentin supplementation was recommended. Discussed proper diabetic diet in addition to the stated above to ensure adequate wound healing. Patient states that his sugars have been up but not above 200. does state he does eat things that he should not though. Last visit with PCP demonstrates increase in weight. He has continued taking the instructed supplements for his neuropathy consisting of of complex B vitamin daily, magnesium 250 mg daily, alpha lipoic acid 300 mg daily, and 500 mg glutamine supplement. Discussed continuing to take it and allow time for the nerves to continue repair. The following work up and care recommendations were made: Dressing: Will continue offloading with diabetic inserts and Lal's extension/crest pad offloading to hallux. Continue to monitor heel and keep pressure off heel as he returns to shoe gear. Wash: Soap and water Tissue growth optimization: None Offload: Elevating lower extremities at rest. Vascular: DP and PT pulses are weakly palpable with adequate capillary fill time. Do not feel that vascular status is affecting wound healing. Edema: Continue elevating lower extremities at all times of rest. Continue wearing Tubigrip compression stocking. Discussed eventual change to a standard prescription compression stocking once wounds have healed. Infection: No signs of infection. Wound cultures were taken given patient's prior history of recurrent bacterial infection at the sites. Pain: May take [id number] Tylenol for discomfort Host factors: DM type II with peripheral polyneuropathy, HTN, morbid obesity, lymphedema With healed status he is being discharged from the wound care center today I answered all the patient's questions. To return to the wound healing center as needed or call sooner if the patient has any questions or concerns.
--- NOTE | 2024-08-29 09:12 | WC ---
PHOTO 08/28/24 RIGHT HEEL
== END 2024-09-10 13:17 | disposition home or self-care (01) ==
LOC: WC 11:15
PROVIDERS: PCP Internal Medicine; Referring Provider Internal Medicine; Visit Provider Student in an Organized Health Care Education/Training Program
DX: E11.621 Type 2 diabetes mellitus with foot ulcer (principal); L97.419 Non-pressure chronic ulcer of right heel and midfoot with unspecified severity; E11.42 Type 2 diabetes mellitus with diabetic polyneuropathy; Z79.4 Long term (current) use of insulin; I89.0 Lymphedema, not elsewhere classified; R60.0 Localized edema; I10 Essential (primary) hypertension; E78.00 Pure hypercholesterolemia, unspecified; Z79.82 Long term (current) use of aspirin; Z79.85 Long-term (current) use of injectable non-insulin antidiabetic drugs; Z79.01 Long term (current) use of anticoagulants; Z79.899 Other long term (current) drug therapy; Z96.652 Presence of left artificial knee joint; Z86.711 Personal history of pulmonary embolism
CPT/HCPCS: 99213; G0463

== ENCOUNTER → 2024-09-17 | Outpatient (CLI) | payer MEDICARE, BC, SELFPAY ==
[2024-09-17 18:40] LABS: Amphetamine Urine NEGATIVE (<1000 ng/mL); Barbiturate Urine VISTA NEGATIVE (< 200 ng/mL); Benzodiazepine Urine VISTA NEGATIVE (< 200 ng/mL); Cocaine Urine VISTA NEGATIVE (< 300 ng/mL); Ecstacy Urine VISTA NEGATIVE (< 500 ng/mL); Methadone Urine VISTA NEGATIVE (< 300 ng/mL); PCP Urine VISTA NEGATIVE (< 25 ng/mL); THC Urine VISTA NEGATIVE (< 50 ng/mL); Vista UDS pH Range 6
== END | disposition home or self-care (01) ==
LOC: LAB 16:04
PROVIDERS: PCP Internal Medicine; Referring Provider Anesthesiology Pain Medicine; Visit Provider Anesthesiology Pain Medicine
DX: F11.20 Opioid dependence, uncomplicated (principal)
CPT/HCPCS: 80307

== ENCOUNTER 2024-12-10 13:08 | Outpatient (RCR) | payer MEDICARE, BC, SELFPAY ==
[2024-12-10 13:19] VITALS: BP 162/88; PULSE 84; RESP 18; TEMP 36.1; BMI 48.8
--- NOTE | 2024-12-11 08:14 | WC ---
PHOTO 12/10/24 RIGHT GREAT TOE
--- NOTE | 2024-12-11 08:14 | WC ---
PHOTO 12/10/24 RIGHT HEEL
--- NOTE | 2024-12-12 13:54 | HP.PCM_ITS ---
History of Present Illness Date of Service: 12/10/24 Chief Complaint: Right heel ulcer and right hallux ulcer History of Wound: This is a 68-year-old diabetic male who presented with a an ulcer on his right heel and right great toe. Review of the patient's medical records reveals that he has previously been under the care of Dr. Saurabh Dasilva, Division Sergeant, at the [facility] from November 15, 2023, until August 28, 2024, 4 ulcerations at the same sites. The is uncertain as to how the ulcers occurred, and the associated timeline. In addition to diabetes mellitus, the patient suffers from multiple other pre- existing medical conditions, which are listed herein. The patient sleeps in a bed with his head of bed elevated. He has mechanical pneumatic compression pumps for his lower extremities, but has not been using them. He has a history of smoking, but has not done so for at least 30 years. Is a former patient of Dr. Dasilva, the patient has been previously fitted with shoes for offloading purposes. It appears as though the ulcerations for which the patient is currently presenting are both recurrent. The patient has undergone left total knee replacement in the past, which became infected and required removal, placement of an antibiotic spacer, following which new hardware was placed. The patient has a history of pulmonary embolism and is on systemic anticoagulation therapy with Xarelto. [facility] Medical History Stage 3b chronic kidney disease (CKD) Onychomycosis History of deep vein thrombosis (DVT) of lower extremity Diabetic ulcer of toe VTE (venous thromboembolism) Dyslipidemia Diabetes mellitus type 2 with complications, uncontrolled Morbid obesity with BMI of 45.0-49.9, adult GRETCHEN treated with BiPAP Morbid obesity Former tobacco use BPH (benign prostatic hyperplasia) HTN (hypertension) Diabetes mellitus Home Medications ?Medication ?Instructions ?Recorded ?Last Taken ?Type atorvastatin 20 mg tablet 20 mg PO QHS cholesterol 02/21/22 History furosemide 40 mg tablet 80 mg PO DAILY diuretic 08/1302/22/22 History rivaroxaban 20 mg tablet (Xarelto) 20 mg PO DINNER blo od thinner 03/23/16 02/21/22 History doxazosin 4 mg tablet 4 mg PO QHS blood pressure 0 04/03/20 02/21/22 History insulin lispro 100 unit/mL 20 unit subcut BREAKFAST di abetes 02/23/22 02/22/22 History subcutaneous pen insulin lispro 100 unit/mL 20 unit subcut LUNCH diabet es 02/23/22 02/22/22 History subcutaneous pen gabapentin 600 mg tablet 600 mg PO TIDCM Nerve Pain 0 02/24/22 Unknown History doxycycline hyclate 100 mg capsule 100 mg PO BID #60 c aps 04/07/22 Unknown Rx insulin glargine-yfgn 100 unit/mL 50 unit (0.5 mL) sub cut QHS #0 mL 04/10/22 Unknown Rx (3 mL) subcutaneous pen insulin lispro 100 unit/mL 20 unit (0.2 mL) subcut DIN NER #0 04/10/22 Unknown Rx subcutaneous pen (Humalog KwikPen mL (U-100) Insulin) metoprolol tartrate 25 mg tablet 75 mg (3 x 25 mg) PO BID blood 04/10/22 Unknown Rx pressure 30 days #180 tabs aspirin 81 mg capsule 81 mg PO DAILY 08/16/22 Unkn own History calcium carbonate (Tums) mg PO BID PRN Heartburn 12/03 Unknown History dulaglutide 3 mg/0.5 mL 3 mg subcut QWEEK 08/16/22 U nknown History subcutaneous pen injector (Trulicity) hydrocodone-acetaminophen 5-325mg 1 tab PO Q8H PRN Fei n 08/16/22 Unknown History 5mg-325mg tizanidine 2 mg tablet 4 mg PO TID PRN Back Pain Unknown History zinc 50 mg capsule 50 mg PO DAILY 08/16/22 Unkn own History nystatin 500,000 unit tablet 500,000 unit PO TID 14 da ys #42 10/04/22 Unknown Rx tabs nystatin 500,000 unit tablet 500,000 unit PO TID 14 da ys #42 10/19/22 Unknown Rx tabs losartan 100 mg tablet 100 mg PO DAILY 12/10/24 Unk nown History Allergy/AdvReac Type Severity Reaction Status Date / Time Penicillins Allergy Unknown Hives Verified 12/10/24 13:32 erythromycin base AdvReac Nausea Verified 12/10/24 13:32 (Erythromycin Base) Family History Mother Diabetes Heart disease Coagulopathy Father Heart disease CVA (cerebral vascular accident) Parkinsons disease Surgical History History of pyloromyotomy History of total knee arthroplasty Hx of total knee replacement History of vascular surgery Status post creation of pericardial window Hx of laminectomy Social History household members: spouse Smoking Status: Former smoker how long ago did patient quit smoking: Quit 1994, smoked 1 ppd since age 15. alcohol intake: never substance use type: does not use Vital Signs Vital Signs Vital Signs: Weight Weight: 360 lb Body Mass Index (BMI) 48.8 Physical Exam Const alert, oriented x3, no apparent distress, no limitations and well nourished Constitutional Narrative: The patient is obese, with a BMI of 48.8. General Appearance: cooperative, comfortable and well developed Orientation / Consciousness: awake, oriented to person, oriented to place and oriented to time Exam Limitations: no limitations HEENT normocephalic and head/scalp atraumatic Head and Scalp: normal to inspection, normocephalic and atraumatic Face and Sinus: normal facial exam Nose: external nose normal External Ear: external ears normal Eyes EOMs intact bilaterally General Eye: normal appearance of both eyes Neck full ROM Resp normal respiratory effort, normal air movement, no retractions and no use of accessory muscles Effort and Inspection: able to speak in complete sentences Extremity no calf tenderness General Extremity: Negative for clubbing or cyanosis Skin Wound Narrative: An ulceration is noted on the patient's right posterior lateral heel. It appears to be a Gomez Grade 1 ulceration. Extends through all layers of the dermis and into the subcutaneous tissues. There is no significant erythema or cellulitis. There is no obvious infection or cellulitis. There is a moderate amount of bioburden and nonviable tissue. Dimensions are documented elsewhere. The tip of the right great toe demonstrates an area of firm, thickened black tissue. It is dry and without drainage. There is no surrounding erythema or cellulitis. It is difficult to ascertain whether this represents dry gangrene or an intact blister. Dimensions are documented elsewhere. Onychomycosis is noted to involve the nails of the right foot. A Charcot foot deformity is noted. Neuro oriented x3, CN's II-XII intact bilaterally, moves all extremities and no focal motor deficits Sensorium / Orientation: awake, alert, oriented to person, oriented to place and oriented to time Speech: speech normal Psych Appearance: grossly normal and appropriate Attitude: calm Activity / Motor Behavior: appropriate eye contact Speech: normal speech Mood & Affect: euthymic mood Thought Process: normal thought process Thought Content: normal thought content Attention / Concentration: attention grossly intact Debridement Note Debridement Note Wound debrided: Right postero-lateral heel ulceration Laterality: Right Wound Grade/Stage: Gomez Grade 1 Type of Debridement: Excisional debridement Anesthesia Used: 5% Lidocaine Gel Depth: Down to and including healthy tissue and in the subcutaneous layer Percentage of wound debrided: 100 Instrument Used: 5mm curette, Forceps and - (Scissors) Tissue Removed: Bioburden and nonviable tissue Severity: Fat Layer Exposed Amount of bleeding with debridement: Mild Bleeding Controlled with: Compression and gauze Patient tolerated procedure: Patient tolerated procedure well Charges/Coding Multi Select Codes Visit Charges Office Visit/Consults: 53228 OV L4 New 45 min Integumentary Integumentary CPT Codes: 36267 [place] subq tissue 20 sq cm/< Assessment/Plan Assessment/Plan (1) Pressure ulcer of right heel, stage 3: CODE(S): L89.613 - Pressure ulcer of right heel, stage 3 (2) 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: CODE(S): L97.412 - Non-pressure chronic ulcer of right heel and midfoot with fat layer exposed (3) Type 2 diabetes mellitus with foot ulcer: CODE(S): E11.621 - Type 2 diabetes mellitus with foot ulcer; L97.509 - Non-pressure chronic ulcer of other part of unspecified foot with unspecified severity QUALIFIERS: Diabetes mellitus usp insulin 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 Qualified Code(s): E11.621 - Type 2 diabetes mellitus with foot ulcer; L97.509 - Non-pressure chronic ulcer of other part of unspecified foot with unspecified severity; 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 (4) Chronic ulcer of right heel with fat layer exposed: CODE(S): L97.412 - Non-pressure chronic ulcer of right heel and midfoot with fat layer exposed (5) Diabetic ulcer of toe: CODE(S): E11.621 - Type 2 diabetes mellitus with foot ulcer; L97.509 - Non-pressure chronic ulcer of other part of unspecified foot with unspecified severity QUALIFIERS: Diabetes mellitus type: type 2 Laterality: right Non-pressure ulcer stage: with other severity Qualified Code(s): E11.621 - Type 2 diabetes mellitus with foot ulcer; L97.518 - Non-pressure chronic ulcer of other part of right foot with other specified severity (6) History of total knee arthroplasty: CODE(S): Z96.659 - Presence of unspecified artificial knee joint (7) Morbid obesity with BMI of 45.0-49.9, adult: CODE(S): E66.01 - Morbid (severe) obesity due to excess calories; Z68.42 - Body mass index [BMI] 45.0-49.9, adult (8) Diabetic polyneuropathy: CODE(S): E11.42 - Type 2 diabetes mellitus with diabetic polyneuropathy (9) Benign prostatic hyperplasia: CODE(S): N40.0 - Benign prostatic hyperplasia without lower urinary tract symptoms (10) Diabetes mellitus type 2 with complications, uncontrolled: (11) History of pulmonary embolism: CODE(S): Z86.711 - Personal history of pulmonary embolism (12) History of deep vein thrombosis (DVT) of lower extremity: CODE(S): Z86.718 - Personal history of other venous thrombosis and emb olism (13) Hypertension: CODE(S): I10 - Essential (primary) hypertension QUALIFIERS: Hypertension type: primary hypertension Qualified Code(s): I10 - Essential (primary) hypertension (14) Debility: CODE(S): R53.81 - Other malaise (15) Lower extremity edema: CODE(S): R60.0 - Localized edema (16) Status post lumbar surgery: CODE(S): Z98.890 - Other specified postprocedural states (17) Spondylosis: CODE(S): M47.9 - Spondylosis, unspecified (18) GRETCHEN treated with BiPAP: CODE(S): G47.33 - Obstructive sleep apnea (adult) (pediatric) (19) Former tobacco use: CODE(S): Z87.891 - Personal history of nicotine dependence (20) VTE (venous thromboembolism): CODE(S): I82.90 - Acute embolism and thrombosis of unspecified vein (21) Dyslipidemia: CODE(S): E78.5 - Hyperlipidemia, unspecified (22) Hx of total knee replacement: CODE(S): Z96.659 - Presence of unspecified artificial knee joint (23) History of vascular surgery: CODE(S): Z98.890 - Other specified postprocedural states (24) Hx of laminectomy: CODE(S): Z98.890 - Other specified postprocedural states (25) History of pyloromyotomy: CODE(S): Z98.890 - Other specified postprocedural states (26) Onychomycosis: CODE(S): B35.1 - Tinea unguium (27) Stage 3b chronic kidney disease (CKD): CODE(S): N18.32 - Chronic kidney disease, stage 3b PLAN: Plan This is a 68-year-old male who presented with recurrent ulcerations of the right postero-lateral heel and right great toe. The patient is obese and known to be diabetic. He also suffers from multiple other pre-existing medical problems. The ulcerations appear to be pressure related. The patient's most recent Hemoglobin A1c was noted to be 8.0. The importance of offloading measures has been discussed with the patient, and his at the bedside. He is to continue wearing his offloading footwear, previously fitted by his Division Sergeant, Dr. Saurabh Dasilva. However, the fit of these shoes may need to be reevaluated. Whether the right postero-lateral heel ulceration is due to poorly fitted footwear, or pressure from the bed surface is not clear. The patient claims to sleep on his back, and the site of the ulcer on the posterior heel may be due to pressure against the bed surface. Therefore, the patient has been advised to obtain a Podus boot for offloading purposes. With respect to this ulceration, we are to implement the use of moistened Joelle topically on a daily basis. The patient and his have been instructed in the appropriate means of application. The site on the tip of the right great toe appears to represent dry gangrene. Therefore, it is to be left undisturbed, and will be monitored on a serial basis. The patient has been advised to optimize his nutritional intake, as well as his diabetic control. We are to implement the use of a single Tubigrip to the right lower extremity, which will be donned on a daily basis. The patient does have a history of swelling in his lower extremities, which may contribute to pressure within his foot where at the end of the day. He has been advised to continue using his mechanical pneumatic compression pumps several times daily. He has also been advised to elevate his lower extremities is much as possible. Prolonged idle sitting has been discouraged. Ambulation has been encouraged. Weight loss is also been encouraged. We are to obtain a noninvasive lower extremity arterial study to assess arterial perfusion in the patient's lower extremities. The patient is return in 1 week for reevaluation. Total time: 45 minutes
== END 2024-12-10 23:59 | disposition home or self-care (01) ==
LOC: WC 13:08
PROVIDERS: PCP Internal Medicine; Referring Provider Internal Medicine; Visit Provider Surgery
DX: E11.621 Type 2 diabetes mellitus with foot ulcer (principal); L89.613 Pressure ulcer of right heel, stage 3; L97.412 Non-pressure chronic ulcer of right heel and midfoot with fat layer exposed; Z68.42 Body mass index [BMI] 45.0-49.9, adult; E66.01 Morbid (severe) obesity due to excess calories; E11.42 Type 2 diabetes mellitus with diabetic polyneuropathy; Z79.4 Long term (current) use of insulin; E11.22 Type 2 diabetes mellitus with diabetic chronic kidney disease; N18.32 Chronic kidney disease, stage 3b; Z86.718 Personal history of other venous thrombosis and embolism; Z87.891 Personal history of nicotine dependence; R60.0 Localized edema; M47.9 Spondylosis, unspecified; B35.1 Tinea unguium; I12.9 Hypertensive chronic kidney disease with stage 1 through stage 4 chronic kidney disease, or unspecified chronic kidney disease; E78.5 Hyperlipidemia, unspecified; G47.33 Obstructive sleep apnea (adult) (pediatric); N40.0 Benign prostatic hyperplasia without lower urinary tract symptoms; Z79.899 Other long term (current) drug therapy
CPT/HCPCS: 11042; 99213; G0463

== ENCOUNTER → 2025-01-06 | Outpatient (CLI) | payer MEDICARE, BC, SELFPAY ==
[2025-01-06 12:18] LABS: Hematocrit 44.4 % (40-54); Mean Corp Hgb Conc 33.8 g/dL (32-36); Mean Corpuscular Hgb 29.9 pg (27.0-32.0); Mean Corpuscular Volume 88.4 fL (80-94); Mean Platelet Vol. 9.9 fl (6.2-12.0); Platelet Count 165 K/mm3 (150-450); RBC Distribution Width CV 12.5 % (11.6-14.6); RBC Distribution Width SD 40.1 fl (35.1-43.9); Red Blood Count 5.02 M/mm3 (4.6-6.2); White Blood Count 11.3 K/mm3 (4.4-11.0)
[2025-01-06 12:47] LABS: ALB/GLOB Ratio 1.1 RATIO (0.9-2.4); AST(SGOT) 27 U/L (<=37); Alanine Aminotransfer ALT/SGPT 29 U/L (<=46); Albumin, Serum 3.9 g/dL (3.4-4.8); Alkaline Phosphatase 89 U/L (40-129); Anion Gap 13 (5-15); BUN 19 mg/dL (4-19); BUN/Creat Ratio 13.3 RATIO (10-20); Calcium,Total 9.6 mg/dL (7.6-11.0); Carbon Dioxide 22.7 mmol/L (21.0-32.0); Chloride 105 mmol/L (98-108); Creatinine, Serum 1.41 mg/dL (0.70-1.20); EST Glomerular Filtration Rate 54 (>60); Globulin 3.5 g/dL (2.2-4.2); Glucose 177 mg/dL (70-99); Potassium 4.2 mmol/L (3.3-5.1); Protein, Total 7.4 g/dL (5.9-8.4); Sodium Level 141 mmol/L (133-145); Total Bilirubin 0.55 mg/dL (0.00-1.30)
== END | disposition home or self-care (01) ==
LOC: MTLAB 10:40
PROVIDERS: PCP Internal Medicine; Referring Provider Surgery; Visit Provider Surgery
DX: E11.621 Type 2 diabetes mellitus with foot ulcer (principal); L97.519 Non-pressure chronic ulcer of other part of right foot with unspecified severity; E11.22 Type 2 diabetes mellitus with diabetic chronic kidney disease; E11.65 Type 2 diabetes mellitus with hyperglycemia; N18.30 Chronic kidney disease, stage 3 unspecified; I12.9 Hypertensive chronic kidney disease with stage 1 through stage 4 chronic kidney disease, or unspecified chronic kidney disease
CPT/HCPCS: 36415; 80053; 83036; 85027

== ENCOUNTER 2025-01-07 14:30 | Outpatient (RCR) | payer MEDICARE, BC, SELFPAY ==
[2024-12-11 00:24] VITALS: BP 162/88; PULSE 84; RESP 18; TEMP 36.1; BMI 48.8
--- NOTE | 2024-12-12 14:28 | ART_ITS ---
Reason For Study Reason For Study: PVD Procedure A bilateral lower extremity continuous wave Doppler with analog waveform analysis,segmental pressures,and ankle brachial indexes without exercise. Left Segmental Pressures Left brachial= 164mmHg. Left posterior tibial artery = 176mmHg. Left dorsalis pedis artery = >254mmHg. Left digit = 155 mmHg. The left posterior tibial artery waveforms are triphasic. The left dorsalis pedis waveforms are triphasic. Right Segmental Pressures Right brachial= 152mmHg. Right posterior tibial artery = >254mmHg. Right dorsalis pedis artery = >254mmHg. Right digit = 134 mmHg. The right posterior tibial artery waveforms are triphasic. The right dorsalis pedis waveforms are triphasic. Indices The right ankle brachial index by the posterior tibial artery is N/C. The right ankle brachial index by the dorsalis pedis is N/C. The right digital-brachial index is 0.82. The left ankle brachial index by the posterior tibial artery is 1.07. The left ankle brachial index by the dorsalis pedis is N/C. The left digital-brachial index is 0.95. VL/Lower Ext Art Exam w/o Exercis Interpretation Summary Triphasic Doppler waveforms are noted at ankle level bilaterally. Pulse-volume recordings appear satisfactory at all levels bilaterally. The resting right ankle-brachial index could not be determi mireille due to the non-compressibility of the vasculature at ankle level on the right. The resting left ankle-brachial index is normal. Digital-brachial indices are normal bilaterally. There is evidence of arterial calcification at ankle level on the right. There is no evidence of significant arterial occlusive disease in the lower extremities bilaterally. Ordering Physician: Doron Russ Referring Physician: David Kate M.D. Performed By: Justus Salazar RVT
[2024-12-17 13:20] VITALS: BP 158/79; PULSE 88; RESP 18; TEMP 36.3; BMI 48.8
--- NOTE | 2024-12-19 12:03 | PCM.WC.HP ---
History of Present Illness Date of Service: 12/17/24 Chief Complaint: Right heel ulcer and right hallux ulcer History of Wound: This is a 68 year-old male who [facility] for evaluation of a right heel ulcer. It started as a a pressure ulcer in February 2022 when he he was in TCU and it healed. It then became a blister right before his Left TKR surgery. He had his left knee replaced 07/14/22 at [facility]. 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 He also has a history of diabetes type II with peripheral polyneuropathy, HTN, lymphedema, hypercholesterolemia and PE that he is on Xerelto. Wound culture obtained on 08/30/22 which are positive for VRE, Kocuria kristinae and Corynebacterium striatum. He will completed the Linezolid. Wound culture obtained 06/20/23 which was positive for Staphylococcus pseudintermediu, Pseudomonas aeruginosa, Corynebacterium minutissiumum, and Anaerobic cocci. He was started on Levaquin and Flagyl. Foot xray 09/27/22 - Osteopenia with diffuse osteoarthritic changes. Diffuse soft tissue swelling with ossification of the distal Achilles tendon. No acute abnormality or evidence of erosive changes. Did undergo updated radiograph of the right foot 11/08/2023 with no noted changes from previous x-ray. This is a recurring ulceration to both distal medial tuft of the right hallux and posterior lateral heel. He stated both sites had scabbed up and he was previously discharged however scabs have later broken down with re-ulceration. [facility] Medical History (Updated 12/19/24 @ 12:[address] Doron Russ MD) Charcot arthropathy Diabetic foot ulcer Diabetic foot ulcer associated with diabetes mellitus due to underlying condition Stage 3b chronic kidney disease (CKD) Onychomycosis History of deep vein thrombosis (DVT) of lower extremity Diabetic ulcer of toe VTE (venous thromboembolism) Dyslipidemia Diabetes mellitus type 2 with complications, uncontrolled Morbid obesity with BMI of 45.0-49.9, adult GRETCHEN treated with BiPAP Morbid obesity Former tobacco use BPH (benign prostatic hyperplasia) HTN (hypertension) Diabetes mellitus Home Medications ?Medication ?Instructions ?Recorded ?Last Taken ?Type atorvastatin 20 mg tablet 20 mg PO QHS cholesterol 08/27/15 02/21/22 History furosemide 40 mg tablet 80 mg PO DAILY diuretic 08/27/15 02/22/22 History rivaroxaban 20 mg tablet (Xarelto) 20 mg PO DINNER blood thinner 03/23/16 02/21/22 History doxazosin 4 mg tablet 4 mg PO QHS blood pressure 04/03/20 02/21/22 History insulin lispro 100 unit/mL 20 unit subcut BREAKFAST diabetes 02/23/22 02/22/22 History subcutaneous pen insulin lispro 100 unit/mL 20 unit subcut LUNCH diabetes 02/23/22 02/22/22 History subcutaneous pen gabapentin 600 mg tablet 600 mg PO TIDCM Nerve Pain 02/24/22 Unknown History doxycycline hyclate 100 mg capsule 100 mg PO BID #60 caps 04/07/22 Unknown Rx insulin glargine-yfgn 100 unit/mL 50 unit (0.5 mL) subcut QHS #0 mL 04/10/22 Unknown Rx (3 mL) subcutaneous pen insulin lispro 100 unit/mL 20 unit (0.2 mL) subcut DINNER #0 04/10/22 Unknown Rx subcutaneous pen (Humalog KwikPen mL (U-100) Insulin) metoprolol tartrate 25 mg tablet 75 mg (3 x 25 mg) PO BID blood 04/10/22 Unknown Rx pressure 30 days #180 tabs aspirin 81 mg capsule 81 mg PO DAILY 08/16/22 Unknown History calcium carbonate (Tums) mg PO BID PRN Heartburn 08/16/22 Unknown History dulaglutide 3 mg/0.5 mL 3 mg subcut QWEEK 08/16/22 Unknown History subcutaneous pen injector (Trulicity) hydrocodone-acetaminophen 5-325mg 1 tab PO Q8H PRN Pain 08/16/22 Unknown History 5mg-325mg tizanidine 2 mg tablet 4 mg PO TID PRN Back Pain 08/16/22 Unknown History zinc 50 mg capsule 50 mg PO DAILY 08/16/22 Unknown History nystatin 500,000 unit tablet 500,000 unit PO TID 14 days #42 10/04/22 Unknown Rx tabs nystatin 500,000 unit tablet 500,000 unit PO TID 14 days #42 10/19/22 Unknown Rx tabs losartan 100 mg tablet 100 mg PO DAILY 12/10/24 Unknown History Allergy/AdvReac Type Severity Reaction Status Date / Time Penicillins Allergy Unknown Hives Verified 12/10/24 13:32 erythromycin base AdvReac Nausea Verified 12/10/24 13:32 (Erythromycin Base) Family History Mother Diabetes Heart disease Coagulopathy Father Heart disease CVA (cerebral vascular accident) Parkinsons disease Surgical History History of pyloromyotomy History of total knee arthroplasty Hx of total knee replacement History of vascular surgery Status post creation of pericardial window Hx of laminectomy Social History household members: spouse Smoking Status: Former smoker how long ago did patient quit smoking: Quit 1994, smoked 1 ppd since age 15. alcohol intake: never substance use type: does not use Vital Signs Vital Signs Vital Signs: Weight Weight: 360 lb Body Mass Index (BMI) 48.8 Physical Exam Const alert, oriented x3, no apparent distress, no limitations and well nourished Constitutional Narrative: The patient is obese, with a BMI of 48.8. General Appearance: cooperative, comfortable and well developed Orientation / Consciousness: awake, oriented to person, oriented to place and oriented to time Exam Limitations: no limitations HEENT normocephalic and head/scalp atraumatic Head and Scalp: normal to inspection, normocephalic and atraumatic Face and Sinus: normal facial exam Nose: external nose normal External Ear: external ears normal Eyes EOMs intact bilaterally General Eye: normal appearance of both eyes Neck full ROM Resp normal respiratory effort, normal air movement, no retractions and no use of accessory muscles Effort and Inspection: able to speak in complete sentences Extremity no calf tenderness General Extremity: Negative for clubbing or cyanosis Skin Wound Narrative: An ulceration is noted on the patient's right postero-lateral heel. It appears to be a Gomez Grade 1 ulceration. It extends through all layers of the dermis and into the subcutaneous tissues. There is no significant erythema or cellulitis. There is no obvious infection or cellulitis. There is a moderate amount of bioburden and nonviable tissue. Wound margins are well beveled. Dimensions are documented elsewhere. It appears to have decreased in size somewhat since the patient's last visit. The tip of the right great toe demonstrates an area of firm, thickened black tissue. It is dry and without drainage. There is no surrounding erythema or cellulitis. It appears to represent dry gangrene. Dimensions are documented elsewhere. There has been little change in appearance since the prior week. Onychomycosis is noted to involve the nails of the right foot. A Charcot foot deformity is noted. Neuro oriented x3, CN's II-XII intact bilaterally, moves all extremities and no focal motor deficits Sensorium / Orientation: awake, alert, oriented to person, oriented to place and oriented to time Speech: speech normal Psych Appearance: grossly normal and appropriate Attitude: calm Activity / Motor Behavior: appropriate eye contact Speech: normal speech Mood & Affect: euthymic mood Thought Process: normal thought process Thought Content: normal thought content Attention / Concentration: attention grossly intact Debridement Note Debridement Note Wound debrided: Right postero-lateral heel ulceration Laterality: Right Wound Grade/Stage: Gomez Grade 1 Type of Debridement: Excisional debridement Anesthesia Used: 5% Lidocaine Gel Depth: Down to and including healthy tissue and in the subcutaneous layer Percentage of wound debrided: 100 Instrument Used: 3mm curette Tissue Removed: Bioburden and nonviable tissue Severity: Fat Layer Exposed Amount of bleeding with debridement: Mild Bleeding Controlled with: Compression and gauze Patient tolerated procedure: Patient tolerated procedure well Post-Debridement Measurements and Additional Note: Post-Debridement Measurements/Treatment - Nurse 1 - General Ulcer Assessment Start: 12/17/24 13:19 Freq: Status: Active Protocol: .MIRA Activity Type Activity Date Activity User E-sign Co-sign Detail Recorded Client Recorded Date Recorded By Document 12/17/24 13:20 DL [id number] 12/17/24 13:34 DL 12/17/24 13:20 - Today's Visit Information Type of service Follow-up Visit (Physician/[employer] ) Arrival Mode Ambulatory, Walker Transfer Assistance None Patient Identification Verified (Name & Yes ) Patient Requires Transmission-Based No Precautions Height and Weight Body Mass Index (BMI) 48.8 BMI Classification Obese Vital Signs Temperature (97.8 F-99.1 F) 97.4 F L Temperature Source Temporal Pulse Rate (60-100) 88 Pulse Location Monitor Respiratory Rate (12-18) 18 Respiratory rate source Observation Blood Pressure (90/60-120/80) 158/79 H Blood Pressure Mean 105 Source Monitor History Since Last Visit- (Skip if this is Patient's initial visit) Have you changed medications since your No last visit? Any new allergies or adverse reactions No Had a fall/change in ADL's that may No increase risk of falls Signs or symptoms of abuse and/or No neglect since last visit Have you been in the hospital since your No last visit? Has dressing in place as prescribed Yes Has compression in place as prescribed Yes Has offloadiing in place as prescribed Yes Experienced any changes in pain level or No management Pain Scale: 0-10 Numeric Is Patient Pain Free? Yes WC - Nurse 1 - General Ulcer Measurement Start: 12/17/24 13:19 Freq: Status: Active Protocol: Activity Type Activity Date Activity User E-sign Co-sign Detail Recorded Client Recorded Date Recorded By Document 12/17/24 13:20 DL [id number] 12/17/24 13:34 DL 12/17/24 13:20 Wound Center Nurse 1 #7- R GR TOE -Current Size (cm) - Length 0.1 -Current Size (cm) - Width 0.1 -Current Size (cm) - Depth 0.1 -Total Square Cm 0.01 -Photo Taken Yes -Exudate Amt None Present -Wound Margin Thickened -Granulation Amt None Present (0 %) -Granulation Quality Pale -Necrosis Amt Small (1-33%) -Necrotic Tissue Type Eschar -Structure Exposed N/A -Texture (Lianna-wound Skin Appearance) Scarring -Moisture (Lianna-wound Skin Appearance) No Abnormality, Dry/Scaly -Color (Lianna-wound Skin Appearance) No Abnormality -Temperature (Lianna-wound Skin No Abnormality Appearance) (Pt Warm) -Ulcer Cleansing Rinsed/ Irrigated with Saline -Foul Odor after Cleansing No -Anesthetic Used 5% Lidocaine Gel #6- R HEEL -Current Size (cm) - Length 0.1 -Current Size (cm) - Width 0.1 -Current Size (cm) - Depth 0.1 -Total Square Cm 0.01 -Photo Taken Yes -Exudate Amt None Present -Wound Margin Thickened -Granulation Amt None Present (0 %) -Necrosis Amt Small (1-33%) -Necrotic Tissue Type Adherent Slough -Structure Exposed N/A -Texture (Lianna-wound Skin Appearance) Scarring -Moisture (Lianna-wound Skin Appearance) No Abnormality, Weeping -Color (Lianna-wound Skin Appearance) Assessed -Temperature (Lianna-wound Skin No Abnormality Appearance) (Pt Warm) -Tenderness on Palpation (Lianna-wound No Skin Appearance) -Ulcer Cleansing Rinsed/ Irrigated with Saline -Foul Odor after Cleansing No -Anesthetic Used 5% Lidocaine Gel Right Calf (cm) 47 Right Ankle (cm) 29.5 LAM - Nurse 2 - General Ulcer CM Notes Start: 12/17/24 13:19 Freq: Status: Active Protocol: Activity Type Activity Date Activity User E-sign Co-sign Detail Recorded Client Recorded Date Recorded By Document 12/17/24 14:10 [id number] 12/17/24 14:14 12/17/24 14:10 Wound Center Nurse 2 #7- R GR TOE -Time 14:11 -Correct Patient Yes -Correct Side, Site, Position Yes -Correct Procedure No -Procedure Performed No -Tunneling No -Undermining/Tunneling No -Circular Undermining No -Wound/Ulcer Outcome Not Healed -Foul Odor after Cleansing No -Bioengineered Tissue No -Bleeding Controlled with NA -Treatment Response Procedure Tolerated Well -Offloading No -Wound Comment(s) skin intact, blood blister or necrotic #6- R HEEL -Time 14:12 -Correct Patient Yes -Correct Side, Site, Position Yes -Correct Procedure Yes -Procedure Performed Yes -Type of Procedure Debridement -Clinical Debridement Subcutaneous -Tissue Removed Subcutaneous -Post Debridement (cm) - Length 1.2 -Post Debridement (cm) - Width 0.5 -Post Debridement (cm) - Depth 0.2 -Total Square (Post) (cm) 0.60 -Area of Debridement (cm) - Length 1.2 -Area of Debridement (cm) - Width 0.5 -Total Square (Area) (cm) 0.60 -Tunneling No -Undermining/Tunneling No -Circular Undermining No -Wound/Ulcer Outcome Not Healed -Ulcer Cleansing Not Cleansed -Foul Odor after Cleansing No -Bioengineered Tissue No -Bleeding Controlled with Pressure -Treatment Response Procedure Tolerated Well -Offloading No -Assistive Device(s) Walker -Debridement - Subq, 1st 20sq cm Yes Pain Scale: 0-10 Numeric Is Patient Pain Free? Yes LAM - Nurse 3 - General Ulcer D/C NN Start: 12/17/24 13:19 Freq: Status: Active Protocol: Activity Type Activity Date Activity User E-sign Co-sign Detail Recorded Client Recorded Date Recorded By Document 12/17/24 14:21 DL [id number] 12/17/24 14:24 DL 12/17/24 14:21 Wound Care Center Nurse 3 #7- R GR TOE -Primary Dressing Covered/Secured with Dry Gauze, Secured with Tape -Other Covering pad and protect #6- R HEEL -Ulcer Cleansing Rinsed/ Irrigated with Saline -Foul Odor after Cleansing No -Other Dressing Joelle -Primary Dressing Covered/Secured with Dry Gauze & Roll Gauze, Secured with Tape -Other Covering Nurse Hat RLE -Tubular Bandage Single Layer -Size of Tubigrip Used Size F -Size F ($) 1 Treatment Response Procedure Tolerated Well Pain Scale: 0-10 Numeric Is Patient Pain Free? 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: CODE(S): L97.412 - Non-pressure chronic ulcer of right heel and midfoot with fat layer exposed (2) Type 2 diabetes mellitus with foot ulcer: CODE(S): E11.621 - Type 2 diabetes mellitus with foot ulcer; L97.509 - Non-pressure chronic ulcer of other part of unspecified foot with unspecified severity QUALIFIERS: Diabetes mellitus shelter insulin use: with shelter use Qualified Code(s): E11.621 - Type 2 diabetes mellitus with foot ulcer; L97.509 - Non-pressure chronic ulcer of other part of unspecified foot with unspecified severity; 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 (3) Chronic ulcer of right heel with fat layer exposed: CODE(S): L97.412 - Non-pressure chronic ulcer of right heel and midfoot with fat layer exposed (4) Diabetic foot ulcer: CODE(S): E11.621 - Type 2 diabetes mellitus with foot ulcer; L97.509 - Non-pressure chronic ulcer of other part of unspecified foot with unspecified severity QUALIFIERS: Diabetic foot ulcer location: heel Diabetes mellitus type: type 2 Laterality: right Non-pressure ulcer stage: with fat layer exposed Qualified Code(s): E11.621 - Type 2 diabetes mellitus with foot ulcer; L97.412 - Non-pressure chronic ulcer of right heel and midfoot with fat layer exposed (5) Pressure ulcer of right heel, stage 3: CODE(S): L89.613 - Pressure ulcer of right heel, stage 3 (6) Diabetic ulcer of toe: CODE(S): E11.621 - Type 2 diabetes mellitus with foot ulcer; L97.509 - Non-pressure chronic ulcer of other part of unspecified foot with unspecified severity QUALIFIERS: Diabetes mellitus type: type 2 Laterality: right Non-pressure ulcer stage: with other severity Qualified Code(s): E11.621 - Type 2 diabetes mellitus with foot ulcer; L97.518 - Non-pressure chronic ulcer of other part of right foot with other specified severity (7) History of total knee arthroplasty: CODE(S): Z96.659 - Presence of unspecified artificial knee joint (8) Morbid obesity with BMI of 45.0-49.9, adult: CODE(S): E66.01 - Morbid (severe) obesity due to excess calories; Z68.42 - Body mass index [BMI] 45.0-49.9, adult (9) Diabetic polyneuropathy: CODE(S): E11.42 - Type 2 diabetes mellitus with diabetic polyneuropathy (10) Benign prostatic hyperplasia: CODE(S): N40.0 - Benign prostatic hyperplasia without lower urinary tract symptoms (11) Diabetes mellitus type 2 with complications, uncontrolled: (12) History of pulmonary embolism: CODE(S): Z86.711 - Personal history of pulmonary embolism (13) History of deep vein thrombosis (DVT) of lower extremity: CODE(S): Z86.718 - Personal history of other venous thrombosis and embolism (14) Hypertension: CODE(S): I10 - Essential (primary) hypertension QUALIFIERS: Hypertension type: primary hypertension Qualified Code(s): I10 - Essential (primary) hypertension (15) Debility: CODE(S): R53.81 - Other malaise (16) Lower extremity edema: CODE(S): R60.0 - Localized edema (17) Status post lumbar surgery: CODE(S): Z98.890 - Other specified postprocedural states (18) Spondylosis: CODE(S): M47.9 - Spondylosis, unspecified (19) GRETCHEN treated with BiPAP: CODE(S): G47.33 - Obstructive sleep apnea (adult) (pediatric) (20) Former tobacco use: CODE(S): Z87.891 - Personal history of nicotine dependence (21) VTE (venous thromboembolism): CODE(S): I82.90 - Acute embolism and thrombosis of unspecified vein (22) Dyslipidemia: CODE(S): E78.5 - Hyperlipidemia, unspecified (23) Hx of total knee replacement: CODE(S): Z96.659 - Presence of unspecified artificial knee joint (24) History of vascular surgery: CODE(S): Z98.890 - Other specified postprocedural states (25) Hx of laminectomy: CODE(S): Z98.890 - Other specified postprocedural states (26) History of pyloromyotomy: CODE(S): Z98.890 - Other specified postprocedural states (27) Onychomycosis: CODE(S): B35.1 - Tinea unguium (28) Stage 3b chronic kidney disease (CKD): CODE(S): N18.32 - Chronic kidney disease, stage 3b (29) Diabetic foot ulcer associated with diabetes mellitus due to underlying condition: CODE(S): E08.621 - Diabetes mellitus due to underlying condition with foot ulcer; L97.509 - Non-pressure chronic ulcer of other part of unspecified foot with unspecified severity (30) Charcot arthropathy: CODE(S): M14.60 - Charcot's joint, unspecified site PLAN: Plan This is a 68-year-old male who presented with recurrent ulcerations of the right postero-lateral heel and right great toe. The patient is obese and known to be diabetic. He also suffers from multiple other pre-existing medical problems. The ulcerations appear to be pressure related. The patient's most recent Hemoglobin A1c was noted to be 8.0. Other laboratory results from the [facility], obtained on 11/28/2024, were as follows: White blood count 13.38, hemoglobin 16.3, hematocrit 48.3, platelets 191,000, glucose 263, BUN 28, creatinine 1.57, sodium 138, potassium 5.2, chloride 99, calcium 10.0. In addition, a noninvasive lower extremity arterial study, performed on December 12, 2024, revealed no evidence of significant arterial occlusive disease in the lower extremities bilaterally. The importance of offloading measures has been discussed with the patient, and his at the bedside. He is to continue wearing his offloading footwear, previously fitted by his Emergency Department, Dr. Saurabh Dasilva. However, the fit of these shoes may need to be reevaluated. Whether the right postero-lateral heel ulceration is due to poorly fitted footwear, or pressure from the bed surface is not clear. The patient claims to sleep on his back, and the site of the ulcer on the posterior heel may be due to pressure against the bed surface. Therefore, the patient has been advised to obtain a Podus boot for offloading purposes. He has obtained the POTUS boot and has been implementing its use. With respect to this ulceration, we are to continue the use of moistened Joelle topically on a daily basis. The patient and his have been instructed in the appropriate means of application. The site on the tip of the right great toe appears to represent dry gangrene. Therefore, it is to be left undisturbed, and will be monitored on a serial basis. The patient has been advised to optimize his nutritional intake, as well as his diabetic control. We are to implement the use of a single Tubigrip to the right lower extremity, which will be donned on a daily basis. The patient does have a history of swelling in his lower extremities, which may contribute to pressure within his foot where at the end of the day. He has been advised to continue using his mechanical pneumatic compression pumps several times daily. He has also been advised to elevate his lower extremities is much as possible. Prolonged idle sitting has been discouraged. Ambulation has been encouraged. Weight loss is also been encouraged. The patient is return in 1 week for reevaluation. Total time: 25 minutes
[2024-12-24 13:47] VITALS: BP 152/89; PULSE 85; RESP 16; TEMP 36.6; BMI 48.8
--- NOTE | 2024-12-24 19:20 | PCM.WC.HP ---
History of Present Illness Date of Service: 12/24/24 Chief Complaint: Right heel ulcer and right hallux ulcer History of Wound: This is a 69 year-old male who presented to [facility] for evaluation of a right heel ulcer. It started as a a pressure ulcer in February 2022 when he he was in TCU and it healed. It then became a blister right before his Left TKR surgery. He had his left knee replaced 07/14/22 at [facility]. 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 He also has a history of diabetes type II with peripheral polyneuropathy, HTN, lymphedema, hypercholesterolemia and PE that he is on Xerelto. Wound culture obtained on 08/30/22 which are positive for VRE, Kocuria kristinae and Corynebacterium striatum. He will completed the Linezolid. Wound culture obtained 06/20/23 which was positive for Staphylococcus pseudintermediu, Pseudomonas aeruginosa, Corynebacterium minutissiumum, and Anaerobic cocci. He was started on Levaquin and Flagyl. Foot xray 09/27/22 - Osteopenia with diffuse osteoarthritic changes. Diffuse soft tissue swelling with ossification of the distal Achilles tendon. No acute abnormality or evidence of erosive changes. Did undergo updated radiograph of the right foot 11/08/2023 with no noted changes from previous x-ray. This is a recurring ulceration to both distal medial tuft of the right hallux and posterior lateral heel. He stated both sites had scabbed up and he was previously discharged however scabs have later broken down with re-ulceration. [facility] Medical History (Updated 12/24/24 @ 19:[address] Doron Russ MD) Diabetic ulcer of foot associated with diabetes mellitus due to underlying condition, with fat layer exposed Charcot arthropathy Diabetic foot ulcer Diabetic foot ulcer associated with diabetes mellitus due to underlying condition Stage 3b chronic kidney disease (CKD) Onychomycosis History of deep vein thrombosis (DVT) of lower extremity Diabetic ulcer of toe VTE (venous thromboembolism) Dyslipidemia Diabetes mellitus type 2 with complications, uncontrolled Morbid obesity with BMI of 45.0-49.9, adult GRETCHEN treated with BiPAP Morbid obesity Former tobacco use BPH (benign prostatic hyperplasia) HTN (hypertension) Diabetes mellitus Home Medications ?Medication ?Instructions ?Recorded ?Last Taken ?Type atorvastatin 20 mg tablet 20 mg PO QHS cholesterol 08/27/15 02/21/22 History furosemide 40 mg tablet 80 mg PO DAILY diuretic 08/27/15 02/22/22 History rivaroxaban 20 mg tablet (Xarelto) 20 mg PO DINNER blood thinner 03/23/16 02/21/22 History doxazosin 4 mg tablet 4 mg PO QHS blood pressure 04/03/20 02/21/22 History insulin lispro 100 unit/mL 20 unit subcut BREAKFAST diabetes 02/23/22 02/22/22 History subcutaneous pen insulin lispro 100 unit/mL 20 unit subcut LUNCH diabetes 02/23/22 02/22/22 History subcutaneous pen gabapentin 600 mg tablet 600 mg PO TIDCM Nerve Pain 02/24/22 Unknown History doxycycline hyclate 100 mg capsule 100 mg PO BID #60 caps 04/07/22 Unknown Rx insulin glargine-yfgn 100 unit/mL 50 unit (0.5 mL) subcut QHS #0 mL 04/10/22 Unknown Rx (3 mL) subcutaneous pen insulin lispro 100 unit/mL 20 unit (0.2 mL) subcut DINNER #0 04/10/22 Unknown Rx subcutaneous pen (Humalog KwikPen mL (U-100) Insulin) metoprolol tartrate 25 mg tablet 75 mg (3 x 25 mg) PO BID blood 04/10/22 Unknown Rx pressure 30 days #180 tabs aspirin 81 mg capsule 81 mg PO DAILY 08/16/22 Unknown History calcium carbonate (Tums) mg PO BID PRN Heartburn 08/16/22 Unknown History dulaglutide 3 mg/0.5 mL 3 mg subcut QWEEK 08/16/22 Unknown History subcutaneous pen injector (Trulicity) hydrocodone-acetaminophen 5-325mg 1 tab PO Q8H PRN Pain 08/16/22 Unknown History 5mg-325mg tizanidine 2 mg tablet 4 mg PO TID PRN Back Pain 08/16/22 Unknown History zinc 50 mg capsule 50 mg PO DAILY 08/16/22 Unknown History nystatin 500,000 unit tablet 500,000 unit PO TID 14 days #42 10/04/22 Unknown Rx tabs nystatin 500,000 unit tablet 500,000 unit PO TID 14 days #42 10/19/22 Unknown Rx tabs losartan 100 mg tablet 100 mg PO DAILY 12/10/24 Unknown History Allergy/AdvReac Type Severity Reaction Status Date / Time Penicillins Allergy Unknown Hives Verified 12/10/24 13:32 erythromycin base AdvReac Nausea Verified 12/10/24 13:32 (Erythromycin Base) Family History Mother Diabetes Heart disease Coagulopathy Father Heart disease CVA (cerebral vascular accident) Parkinsons disease Surgical History History of pyloromyotomy History of total knee arthroplasty Hx of total knee replacement History of vascular surgery Status post creation of pericardial window Hx of laminectomy Social History household members: spouse Smoking Status: Former smoker how long ago did patient quit smoking: Quit 1994, smoked 1 ppd since age 15. alcohol intake: never substance use type: does not use Vital Signs Vital Signs Vital Signs: 12/24/24 13:47 Temperature 97.9 F Temperature Source Temporal Pulse Rate 85 Respiratory Rate 16 Blood Pressure 152/89 H Blood Pressure Mean 110 Blood Pressure Source Monitor Blood Pressure Position Sitting Blood Pressure Location Left Forearm Oxygen Delivery Method Room Air Weight Weight: 360 lb Body Mass Index (BMI) 48.8 Physical Exam Const alert, oriented x3, no apparent distress, no limitations and well nourished Constitutional Narrative: The patient is obese, with a BMI of 48.8. General Appearance: cooperative, comfortable and well developed Orientation / Consciousness: awake, oriented to person, oriented to place and oriented to time Exam Limitations: no limitations HEENT normocephalic and head/scalp atraumatic Head and Scalp: normal to inspection, normocephalic and atraumatic Face and Sinus: normal facial exam Nose: external nose normal External Ear: external ears normal Eyes EOMs intact bilaterally General Eye: normal appearance of both eyes Neck full ROM Resp normal respiratory effort, normal air movement, no retractions and no use of accessory muscles Effort and Inspection: able to speak in complete sentences Extremity no calf tenderness General Extremity: Negative for clubbing or cyanosis Skin Wound Narrative: An ulceration is noted on the patient's right postero-lateral heel. It appears to be a Gomez Grade 1 ulceration. It extends through all layers of the dermis and into the subcutaneous tissues. There is no significant erythema or cellulitis. There is no obvious infection or cellulitis. There is a moderate amount of bioburden and nonviable tissue. Wound margins are well beveled. Dimensions are documented elsewhere. It has decreased in size somewhat since the patient's last visit. The tip of the right great toe demonstrates an area of firm, thickened black tissue. It is dry and without drainage or fluctuance. There is no surrounding erythema or cellulitis. It appears to represent dry gangrene. Dimensions are documented elsewhere. There has been little change in appearance since the prior week. Onychomycosis is noted to involve the nails of the right foot. A Charcot foot deformity is noted. Neuro oriented x3, CN's II-XII intact bilaterally, moves all extremities and no focal motor deficits Sensorium / Orientation: awake, alert, oriented to person, oriented to place and oriented to time Speech: speech normal Psych Appearance: grossly normal and appropriate Attitude: calm Activity / Motor Behavior: appropriate eye contact Speech: normal speech Mood & Affect: euthymic mood Thought Process: normal thought process Thought Content: normal thought content Attention / Concentration: attention grossly intact Debridement Note Debridement Note Wound debrided: Right postero-lateral heel ulceration Laterality: Right Wound Grade/Stage: Gomez Grade 1 Type of Debridement: Excisional debridement Anesthesia Used: 5% Lidocaine Gel Depth: Down to and including healthy tissue and in the subcutaneous layer Percentage of wound debrided: 100 Instrument Used: 5mm curette Tissue Removed: Bioburden and nonviable tissue Severity: Fat Layer Exposed Amount of bleeding with debridement: Mild Bleeding Controlled with: Compression and gauze Patient tolerated procedure: Patient tolerated procedure well Post-Debridement Measurements and Additional Note: Post-Debridement Measurements/Treatment - Nurse 1 - General Ulcer Assessment Start: 12/17/24 13:19 Freq: Status: Active Protocol: NELL Activity Type Activity Date Activity User E-sign Co-sign Detail Recorded Client Recorded Date Recorded By Document 12/17/24 13:20 DL [id number] 12/17/24 13:34 DL Document 12/24/24 13:47 [facility] [id number] 12/24/24 13:58 BMF 12/17/24 12/24/24 13:20 13:47 - Today's Visit Information Type of service Follow-up Visit Follow-up Visit (Physician/EMPLOYMENT CASE MANAGER (Physician/EMPLOYMENT CASE MANAGER ) ) Arrival Mode Ambulatory, Ambulatory, Walker Walker Transfer Assistance None None Patient Identification Verified (Name & Yes Yes ) Patient Requires Transmission-Based No No Precautions Height and Weight Body Mass Index (BMI) 48.8 48.8 BMI Classification Obese Obese Vital Signs Temperature (97.8 F-99.1 F) 97.4 F L 97.9 F Temperature Source Temporal Temporal Pulse Rate (60-100) 88 85 Pulse Location Monitor Monitor Respiratory Rate (12-18) 18 16 Respiratory rate source Observation Observation Oxygen Delivery Method Room Air Blood Pressure (90/60-120/80) 158/79 H 152/89 H Blood Pressure Mean 105 110 Source Monitor Monitor Position Sitting Blood Pressure Location Left Forearm History Since Last Visit- (Skip if this is Patient's initial visit) Have you changed medications since your No No last visit? Any new allergies or adverse reactions No No Had a fall/change in ADL's that may No No increase risk of falls Signs or symptoms of abuse and/or No No neglect since last visit Have you been in the hospital since your No No last visit? Has dressing in place as prescribed Yes Yes Has compression in place as prescribed Yes N/A Has offloadiing in place as prescribed Yes Yes Experienced any changes in pain level or No No management Left Footwear Diabetic Shoe Right Footwear Surgical Shoe with pressure relief insole Pain Scale: 0-10 Numeric Is Patient Pain Free? Yes Yes - Nurse 1 - General Ulcer Measurement Start: 12/17/24 13:19 Freq: Status: Active Protocol: Activity Type Activity Date Activity User E-sign Co-sign Detail Recorded Client Recorded Date Recorded By Document 12/17/24 13:20 DL [id number] 12/17/24 13:34 DL Document 12/24/24 13:47 BM [id number] 12/24/24 13:58 BMF 12/17/24 12/24/24 13:20 13:47 Wound Center Nurse 1 #7- R GR TOE -Combined with other wound No -Current Size (cm) - Length 0.1 1.4 -Current Size (cm) - Width 0.1 1.7 -Current Size (cm) - Depth 0.1 0.1 -Total Square Cm 0.01 2.38 -Date of Last Picture (Recall this 12/24/24 field) -Photo Taken Yes Yes -Epithelialization None Present -Exudate Amt None Present None Present -Wound Margin Thickened -Granulation Amt None Present (0 None Present (0 %) %) -Granulation Quality Pale -Slough/Fibrin Yes -Necrosis Amt Small (1-33%) Large (67-100%) -Necrotic Tissue Type Eschar Eschar -Structure Exposed N/A -Texture (Lianna-wound Skin Appearance) Scarring Assessed -Moisture (Lianna-wound Skin Appearance) No Abnormality, Assessed,Dry/ Dry/Scaly Scaly -Color (Lianna-wound Skin Appearance) No Abnormality Assessed -Temperature (Lianna-wound Skin No Abnormality Appearance) (Pt Warm) -Ulcer Cleansing Rinsed/ Rinsed/ Irrigated with Irrigated with Saline Saline -Foul Odor after Cleansing No No -Anesthetic Used 5% Lidocaine 5% Lidocaine Gel Gel -Wound Comment(s) lg black scab #6- R HEEL -Combined with other wound No -Current Size (cm) - Length 0.1 1.8 -Current Size (cm) - Width 0.1 0.7 -Current Size (cm) - Depth 0.1 0.1 -Total Square Cm 0.01 1.26 -Date of Last Picture (Recall this 12/24/24 field) -Photo Taken Yes Yes -Epithelialization Medium 34-66% -Tunneling No -Undermining/Tunneling No -Circular Undermining No -Exudate Amt None Present Medium -Exudate Type Serosanguineous -Wound Margin Thickened Distinct, Outline Attached -Granulation Amt None Present (0 None Present (0 %) %) -Slough/Fibrin Yes -Necrosis Amt Small (1-33%) Large (67-100%) -Necrotic Tissue Type Adherent Slough Adherent Slough -Structure Exposed N/A -Texture (Lianna-wound Skin Appearance) Scarring Assessed, Scarring -Moisture (Lianna-wound Skin Appearance) No Abnormality, Assessed,Dry/ Weeping Scaly -Color (Lianna-wound Skin Appearance) Assessed Assessed -Temperature (Lianna-wound Skin No Abnormality No Abnormality Appearance) (Pt Warm) (Pt Warm) -Tenderness on Palpation (Lianna-wound No No Skin Appearance) -Ulcer Cleansing Rinsed/ Rinsed/ Irrigated with Irrigated with Saline Saline -Foul Odor after Cleansing No No -Anesthetic Used 5% Lidocaine 5% Lidocaine Gel Gel Lower Limb Edema Present Yes Right Calf (cm) 47 48.1 Right Ankle (cm) 29.5 29.3 WC - Nurse 2 - General Ulcer CM Notes Start: 12/17/24 13:19 Freq: Status: Active Protocol: Activity Type Activity Date Activity User E-sign Co-sign Detail Recorded Client Recorded Date Recorded By Document 12/17/24 14:10 [id number] 12/17/24 14:14 Document 12/24/24 14:19 [id number] 12/24/24 14:46 12/17/24 12/24/24 14:10 14:19 Wound Center Nurse 2 #7- R GR TOE -Time 14:11 14:19 -Correct Patient Yes Yes -Correct Side, Site, Position Yes Yes -Correct Procedure No No -Procedure Performed No No -Tunneling No No -Undermining/Tunneling No No -Circular Undermining No No -Wound/Ulcer Outcome Not Healed Not Healed -Foul Odor after Cleansing No -Bioengineered Tissue No -Bleeding Controlled with NA -Treatment Response Procedure Tolerated Well -Offloading No No -Wound Comment(s) skin intact, Dry gangrene blood blister or necrotic #6- R HEEL -Time 14:12 14:20 -Correct Patient Yes Yes -Correct Side, Site, Position Yes Yes -Correct Procedure Yes -Procedure Performed Yes -Type of Procedure Debridement -Clinical Debridement Subcutaneous -Tissue Removed Subcutaneous -Post Debridement (cm) - Length 1.2 -Post Debridement (cm) - Width 0.5 -Post Debridement (cm) - Depth 0.2 -Total Square (Post) (cm) 0.60 -Area of Debridement (cm) - Length 1.2 -Area of Debridement (cm) - Width 0.5 -Total Square (Area) (cm) 0.60 -Tunneling No -Undermining/Tunneling No -Circular Undermining No -Wound/Ulcer Outcome Not Healed -Ulcer Cleansing Not Cleansed -Foul Odor after Cleansing No -Bioengineered Tissue No -Bleeding Controlled with Pressure -Treatment Response Procedure Tolerated Well -Offloading No -Assistive Device(s) Walker -Debridement - Subq, 1st 20sq cm Yes Pain Scale: 0-10 Numeric Is Patient Pain Free? Yes Yes LAM - Nurse 3 - General Ulcer D/C NN Start: 12/17/24 13:19 Freq: Status: Active Protocol: Activity Type Activity Date Activity User E-sign Co-sign Detail Recorded Client Recorded Date Recorded By Document 12/17/24 14:21 DL [id number] 12/17/24 14:24 DL Document 12/24/24 14:49 ML [id number] 12/24/24 14:51 ML 12/17/24 12/24/24 14:21 14:49 Wound Care Center Nurse 3 #7- R GR TOE -Primary Dressing Applied Promogran Joelle Matter -Primary Dressing Covered/Secured with Dry Gauze, Dry Gauze & Secured with Roll Gauze, Tape Secured with Tape -Other Covering pad and protect -Promogran Joelle Matter 1 #6- R HEEL -Ulcer Cleansing Rinsed/ Rinsed/ Irrigated with Irrigated with Saline Saline -Foul Odor after Cleansing No -Primary Dressing Applied Promogran Joelel Matter -Other Dressing Joelle -Primary Dressing Covered/Secured with Dry Gauze & Dry Gauze & Roll Gauze, Roll Gauze, Secured with Secured with Tape Tape -Other Covering Nurse Hat -Promogran Joelle Matter 0 -Wound Comment(s) Brought own compression. RLE -Tubular Bandage Single Layer -Size of Tubigrip Used Size F -Size F ($) 1 Treatment Response Procedure Tolerated Well Pain Scale: 0-10 Numeric Is Patient Pain Free? Yes Yes WC - Visit Discharge Discharge Condition Stable Ambulatory Status Ambulatory, Walker Transportation Private Auto Charges/Coding Procedures Integumentary [id number]: [id number] [place] subq tissue 20 sq cm/< Assessment/Plan Assessment/Plan (1) Diabetic ulcer of foot associated with diabetes mellitus due to underlying condition, with fat layer exposed: CODE(S): E08.621 - Diabetes mellitus due to underlying condition with foot ulcer; L97.502 - Non-pressure chronic ulcer of other part of unspecified foot with fat layer exposed QUALIFIERS: Diabetic foot ulcer location: heel Laterality: right Qualified Code(s): E08.621 - Diabetes mellitus due to underlying condition with foot ulcer; L97.412 - Non-pressure chronic ulcer of right heel and midfoot with fat layer exposed (2) 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: CODE(S): L97.412 - Non-pressure chronic ulcer of right heel and midfoot with fat layer exposed (3) Chronic ulcer of right heel with fat layer exposed: CODE(S): L97.412 - Non-pressure chronic ulcer of right heel and midfoot with fat layer exposed (4) Diabetic ulcer of toe: CODE(S): E11.621 - Type 2 diabetes mellitus with foot ulcer; L97.509 - Non-pressure chronic ulcer of other part of unspecified foot with unspecified severity QUALIFIERS: Diabetes mellitus type: type 2 Laterality: right Non-pressure ulcer stage: with other severity Qualified Code(s): E11.621 - Type 2 diabetes mellitus with foot ulcer; L97.518 - Non-pressure chronic ulcer of other part of right foot with other specified severity (5) Type 2 diabetes mellitus with foot ulcer: CODE(S): E11.621 - Type 2 diabetes mellitus with foot ulcer; L97.509 - Non-pressure chronic ulcer of other part of unspecified foot with unspecified severity QUALIFIERS: Diabetes mellitus alf insulin use: with tank terminal gauger use Qualified Code(s): E11.621 - Type 2 diabetes mellitus with foot ulcer; L97.509 - Non-pressure chronic ulcer of other part of unspecified foot with unspecified severity; Z79.4 - retirement (current) use of insulin (6) Diabetic foot ulcer: CODE(S): E11.621 - Type 2 diabetes mellitus with foot ulcer; L97.509 - Non-pressure chronic ulcer of other part of unspecified foot with unspecified severity QUALIFIERS: Diabetic foot ulcer location: heel Diabetes mellitus type: type 2 Laterality: right Non-pressure ulcer stage: with fat layer exposed Qualified Code(s): E11.621 - Type 2 diabetes mellitus with foot ulcer; L97.412 - Non-pressure chronic ulcer of right heel and midfoot with fat layer exposed (7) History of total knee arthroplasty: CODE(S): Z96.659 - Presence of unspecified artificial knee joint (8) Morbid obesity with BMI of 45.0-49.9, adult: CODE(S): E66.01 - Morbid (severe) obesity due to excess calories; Z68.42 - Body mass index [BMI] 45.0-49.9, adult (9) Diabetic polyneuropathy: CODE(S): E11.42 - Type 2 diabetes mellitus with diabetic polyneuropathy (10) Benign prostatic hyperplasia: CODE(S): N40.0 - Benign prostatic hyperplasia without lower urinary tract symptoms (11) Diabetes mellitus type 2 with complications, uncontrolled: (12) History of pulmonary embolism: CODE(S): Z86.711 - Personal history of pulmonary embolism (13) History of deep vein thrombosis (DVT) of lower extremity: CODE(S): Z86.718 - Personal history of other venous thrombosis and embolism (14) Hypertension: CODE(S): I10 - Essential (primary) hypertension QUALIFIERS: Hypertension type: primary hypertension Qualified Code(s): I10 - Essential (primary) hypertension (15) Debility: CODE(S): R53.81 - Other malaise (16) Lower extremity edema: CODE(S): R60.0 - Localized edema (17) Status post lumbar surgery: CODE(S): Z98.890 - Other specified postprocedural states (18) Spondylosis: CODE(S): M47.9 - Spondylosis, unspecified (19) GRETCHEN treated with BiPAP: CODE(S): G47.33 - Obstructive sleep apnea (adult) (pediatric) (20) Former tobacco use: CODE(S): Z87.891 - Personal history of nicotine dependence (21) VTE (venous thromboembolism): CODE(S): I82.90 - Acute embolism and thrombosis of unspecified vein (22) Dyslipidemia: CODE(S): E78.5 - Hyperlipidemia, unspecified (23) Hx of total knee replacement: CODE(S): Z96.659 - Presence of unspecified artificial knee joint (24) History of vascular surgery: CODE(S): Z98.890 - Other specified postprocedural states (25) Hx of laminectomy: CODE(S): Z98.890 - Other specified postprocedural states (26) History of pyloromyotomy: CODE(S): Z98.890 - Other specified postprocedural states (27) Onychomycosis: CODE(S): B35.1 - Tinea unguium (28) Stage 3b chronic kidney disease (CKD): CODE(S): N18.32 - Chronic kidney disease, stage 3b (29) Diabetic foot ulcer associated with diabetes mellitus due to underlying condition: CODE(S): E08.621 - Diabetes mellitus due to underlying condition with foot ulcer; L97.509 - Non-pressure chronic ulcer of other part of unspecified foot with unspecified severity (30) Charcot arthropathy: CODE(S): M14.60 - Charcot's joint, unspecified site PLAN: Plan This is a 69-year-old male who presented with recurrent ulcerations of the right postero-lateral heel and right great toe. The patient is obese and known to be diabetic. He also suffers from multiple other pre-existing medical problems. The ulcerations appear to be pressure and diabetes related. The patient's most recent Hemoglobin A1c was noted to be 8.0. Other laboratory results from the [facility], obtained on 11/28/2024, were as follows: White blood count 13.38, hemoglobin 16.3, hematocrit 48.3, platelets 191,000, glucose 263, BUN 28, creatinine 1.57, sodium 138, potassium 5.2, chloride 99, calcium 10.0. In addition, a noninvasive lower extremity arterial study, performed on December 12, 2024, revealed no evidence of significant arterial occlusive disease in the lower extremities bilaterally. The importance of offloading measures has been discussed with the patient, and his at the bedside. He is to continue wearing his offloading footwear, previously fitted by his Low Voltage Technician, Dr. Saurabh Dasilva. However, the fit of these shoes may need to be reevaluated. Whether the right postero-lateral heel ulceration is due to poorly fitted footwear, or pressure from the bed surface is not clear. The patient claims to sleep on his back, and the site of the ulcer on the posterior heel may be due to pressure against the bed surface. Therefore, the patient has been advised to obtain a Podus boot for offloading purposes. He has obtained the POTUS boot and has been implementing its use. With respect to this ulceration, we are to continue the use of moistened Joelle topically on a daily basis. The patient and his have been instructed in the appropriate means of application. The site on the tip of the right great toe appears to represent dry gangrene. Therefore, it is to be left undisturbed, and will be monitored on a serial basis. The patient has been advised to optimize his nutritional intake, as well as his diabetic control. We are to implement the use of a single Tubigrip to the right lower extremity, which will be donned on a daily basis. The patient does have a history of swelling in his lower extremities, which may contribute to pressure within his foot where at the end of the day. He has been advised to continue using his mechanical pneumatic compression pumps several times daily. He has also been advised to elevate his lower extremities as much as possible. Prolonged idle sitting has been discouraged. Ambulation has been encouraged. Weight loss is also been encouraged. The patient is return in 1 week for reevaluation. Total time: 26 minutes
--- NOTE | 2024-12-25 08:45 | WC ---
PHOTO 12/24/24 RIGHT HEEL
--- NOTE | 2024-12-25 08:45 | WC ---
PHOTO 12/24/24 RIGHT HEEL
[2025-01-01 14:20] VITALS: BP 180/80; PULSE 92; RESP 18; TEMP 36; BMI 48.8
--- NOTE | 2025-01-02 12:18 | WC ---
PHOTO 01/01/25 RIGHT GREAT TOE
--- NOTE | 2025-01-02 12:23 | WC ---
PHOTO 01/01/25
--- NOTE | 2025-01-02 14:29 | HP.PCM_ITS ---
History of Present Illness Date of Service: 01/01/25 Chief Complaint: Right heel ulcer and right hallux ulcer History of Wound: This is a 69 year-old male who presented to [facility] for evaluation of a right heel ulcer. It started as a a pressure ulcer in February 2022 when he he was in TCU and it healed. It then became a blister right before his Left TKR surgery. He had his left knee replaced 07/14/22 at [facility]. 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 He also has a history of diabetes type II with peripheral polyneuropathy, HTN, lymphedema, hypercholesterolemia and PE that he is on Xerelto. Wound culture obtained on 08/30/22 which are positive for VRE, Kocuria kristinae and Corynebacterium striatum. He will completed the Linezolid. Wound culture obtained 06/20/23 which was positive for Staphylococcus pseudintermediu, Pseudomonas aeruginosa, Corynebacterium minutissiumum, and Anaerobic cocci. He was started on Levaquin and Flagyl. Foot xray 09/27/22 - Osteopenia with diffuse osteoarthritic changes. Diffuse soft tissue swelling with ossification of the distal Achilles tendon. No acute abnormality or evidence of erosive changes. Did undergo updated radiograph of the right foot 11/08/2023 with no noted changes from previous x-ray. This is a recurring ulceration to both distal tuft of the right hallux and posterior lateral heel. He stated both sites had scabbed up and he was previously discharged however scabs have later broken down with re-ulceration. [facility] Medical History Diabetic ulcer of foot associated with diabetes mellitus due to underlying condition, with fat layer exposed Charcot arthropathy Diabetic foot ulcer Diabetic foot ulcer associated with diabetes mellitus due to underlying condition Stage 3b chronic kidney disease (CKD) Onychomycosis History of deep vein thrombosis (DVT) of lower extremity Diabetic ulcer of toe VTE (venous thromboembolism) Dyslipidemia Diabetes mellitus type 2 with complications, uncontrolled Morbid obesity with BMI of 45.0-49.9, adult GRETCHEN treated with BiPAP Morbid obesity Former tobacco use BPH (benign prostatic hyperplasia) HTN (hypertension) Diabetes mellitus Home Medications ?Medication ?Instructions ?Recorded ?Last Taken ?Type atorvastatin 20 mg tablet 20 mg PO QHS cholesterol 02/21/22 History furosemide 40 mg tablet 80 mg PO DAILY diuretic 08/1302/22/22 History rivaroxaban 20 mg tablet (Xarelto) 20 mg PO DINNER blo od thinner 03/23/16 02/21/22 History doxazosin 4 mg tablet 4 mg PO QHS blood pressure 0 04/03/20 02/21/22 History insulin lispro 100 unit/mL 20 unit subcut BREAKFAST di abetes 02/23/22 02/22/22 History subcutaneous pen insulin lispro 100 unit/mL 20 unit subcut LUNCH diabet es 02/23/22 02/22/22 History subcutaneous pen gabapentin 600 mg tablet 600 mg PO TIDCM Nerve Pain 0 02/24/22 Unknown History doxycycline hyclate 100 mg capsule 100 mg PO BID #60 c aps 04/07/22 Unknown Rx insulin glargine-yfgn 100 unit/mL 50 unit (0.5 mL) sub cut QHS #0 mL 04/10/22 Unknown Rx (3 mL) subcutaneous pen insulin lispro 100 unit/mL 20 unit (0.2 mL) subcut DIN NER #0 04/10/22 Unknown Rx subcutaneous pen (Humalog KwikPen mL (U-100) Insulin) metoprolol tartrate 25 mg tablet 75 mg (3 x 25 mg) PO BID blood 04/10/22 Unknown Rx pressure 30 days #180 tabs aspirin 81 mg capsule 81 mg PO DAILY 08/16/22 Unkn own History calcium carbonate (Tums) mg PO BID PRN Heartburn 12/03 Unknown History dulaglutide 3 mg/0.5 mL 3 mg subcut QWEEK 08/16/22 U nknown History subcutaneous pen injector (Trulicity) hydrocodone-acetaminophen 5-325mg 1 tab PO Q8H PRN Fei n 08/16/22 Unknown History 5mg-325mg tizanidine 2 mg tablet 4 mg PO TID PRN Back Pain Unknown History zinc 50 mg capsule 50 mg PO DAILY 08/16/22 Unkn own History nystatin 500,000 unit tablet 500,000 unit PO TID 14 da ys #42 10/04/22 Unknown Rx tabs nystatin 500,000 unit tablet 500,000 unit PO TID 14 da ys #42 10/19/22 Unknown Rx tabs losartan 100 mg tablet 100 mg PO DAILY 12/10/24 Unk nown History Allergy/AdvReac Type Severity Reaction Status Date / Time Penicillins Allergy Unknown Hives Verified 12/10/24 13:32 erythromycin base AdvReac Nausea Verified 12/10/24 13:32 (Erythromycin Base) Family History Mother Diabetes Heart disease Coagulopathy Father Heart disease CVA (cerebral vascular accident) Parkinsons disease Surgical History History of pyloromyotomy History of total knee arthroplasty Hx of total knee replacement History of vascular surgery Status post creation of pericardial window Hx of laminectomy Social History household members: spouse Smoking Status: Former smoker how long ago did patient quit smoking: Quit 1994, smoked 1 ppd since age 15. alcohol intake: never substance use type: does not use Vital Signs Vital Signs Vital Signs: Weight Weight: 360 lb Body Mass Index (BMI) 48.8 Physical Exam Const alert, oriented x3, no apparent distress, no limitations and well nourished Constitutional Narrative: The patient is obese, with a BMI of 48.8. General Appearance: cooperative, comfortable and well developed Orientation / Consciousness: awake, oriented to person, oriented to place and oriented to time Exam Limitations: no limitations HEENT normocephalic and head/scalp atraumatic Head and Scalp: normal to inspection, normocephalic and atraumatic Face and Sinus: normal facial exam Nose: external nose normal External Ear: external ears normal Eyes EOMs intact bilaterally General Eye: normal appearance of both eyes Neck full ROM Resp normal respiratory effort, normal air movement, no retractions and no use of accessory muscles Effort and Inspection: able to speak in complete sentences Extremity no calf tenderness General Extremity: Negative for clubbing or cyanosis Skin Wound Narrative: An ulceration is noted on the patient's right postero-lateral heel. It appears to be a Gomez Grade 1 ulceration. It extends through all layers of the dermis and into the subcutaneous tissues. There is no significant erythema or cellulitis. There is no obvious infection or cellulitis. There is a moderate amount of bioburden and nonviable tissue. Wound margins are well beveled. Dimensions are documented elsewhere. It has decreased in size since the patient's last visit. The tip of the right great toe continues to demonstrate an area of firm, thickened black tissue. It is dry and without drainage or fluctuance. There is no surrounding erythema or cellulitis. It appears to represent dry gangrene. Dimensions are documented elsewhere. There has been little change in appearance in recent weeks. Onychomycosis is noted to involve the nails of the right foot. A Charcot foot deformity is noted. Neuro oriented x3, CN's II-XII intact bilaterally, moves all extremities and no focal motor deficits Sensorium / Orientation: awake, alert, oriented to person, oriented to place and oriented to time Speech: speech normal Psych Appearance: grossly normal and appropriate Attitude: calm Activity / Motor Behavior: appropriate eye contact Speech: normal speech Mood & Affect: euthymic mood Thought Process: normal thought process Thought Content: normal thought content Attention / Concentration: attention grossly intact Debridement Note Debridement Note Wound debrided: Right postero-lateral heel ulceration Laterality: Right Wound Grade/Stage: Gomez Grade 1 Type of Debridement: Excisional debridement Anesthesia Used: 5% Lidocaine Gel Depth: Down to and including healthy tissue and in the subcutaneous layer Percentage of wound debrided: 100 Instrument Used: 5mm curette, Forceps and - (Scissors) Tissue Removed: Bioburden and nonviable tissue Severity: Fat Layer Exposed Amount of bleeding with debridement: Mild Bleeding Controlled with: Compression and gauze Patient tolerated procedure: Patient tolerated procedure well Post-Debridement Measurements and Additional Note: Post-Debridement Measurements/Treatment - Nurse 1 - General Ulcer Assessment Start: 12/17/24 13:19 Freq: Status: Active Protocol: NELL Activity Type Activity Date Activity User E-sign Co-sign Detail Recorded Client Recorded Date Recorded By Document 12/17/24 13:20 DL [id number] 12/17/24 13:34 DL Document 12/24/24 13:47 BMF [id number] 12/24/24 13:58 BMF Document 01/01/25 14:20 RB [id number] 01/01/25 14:24 RB 12/17/24 12/24/24 01/01/25 13:20 13:47 14:20 - Today's Visit Information Type of service Follow-up Visit Follow-up Visit Follow-up Visit (Physician/FIRE COORDINATOR (Physician/FIRE COORDINATOR (Physician/FIRE COORDINATOR ) ) ) Arrival Mode Ambulatory, Ambulatory, Ambulatory, Walker Walker Walker Transfer Assistance None None Manual Patient Identification Verified (Name & Yes Yes Yes ) Patient Requires Transmission-Based No No No Precautions Height and Weight Body Mass Index (BMI) 48.8 48.8 48.8 BMI Classification Obese Obese Obese Vital Signs Temperature (97.8 F-99.1 F) 97.4 F L 97.9 F 96.8 F L Temperature Source Temporal Temporal Temporal Pulse Rate (60-100) 88 85 92 Pulse Location Monitor Monitor Monitor Respiratory Rate (12-18) 18 16 18 Respiratory rate source Observation Observation Observation Oxygen Delivery Method Room Air Blood Pressure (90/60-120/80) 158/79 H 152/89 H 180/80 H Blood Pressure Mean 105 110 113 Source Monitor Monitor Monitor Position Sitting Semi-Fowlers Blood Pressure Location Left Forearm Left Arm History Since Last Visit- (Skip if this is Patient's initial visit) Have you changed medications since your No No No last visit? Any new allergies or adverse reactions No No No Had a fall/change in ADL's that may No No No increase risk of falls Signs or symptoms of abuse and/or No No No neglect since last visit Have you been in the hospital since your No No No last visit? Has dressing in place as prescribed Yes Yes Yes Has compression in place as prescribed Yes N/A Yes Has offloadiing in place as prescribed Yes Yes N/A Experienced any changes in pain level or No No No management Left Footwear Diabetic Shoe Right Footwear Surgical Shoe with pressure relief insole Pain Scale: 0-10 Numeric Is Patient Pain Free? Yes Yes Yes WC - Nurse 1 - General Ulcer Measurement Start: 12/17/24 13:19 Freq: Status: Active Protocol: Activity Type Activity Date Activity User E-sign Co-sign Detail Recorded Client Recorded Date Recorded By Document 12/17/24 13:20 DL [id number] 12/17/24 13:34 DL Document 12/24/24 13:47 BMF [id number] 12/24/24 13:58 BMF Document 01/01/25 14:20 RB [id number] 01/01/25 14:24 RB 12/17/24 12/24/24 01/01/25 13:20 13:47 14:20 Wound Center Nurse 1 #7- R GR TOE -Combined with other wound No No -Current Size (cm) - Length 0.1 1.4 0.1 -Current Size (cm) - Width 0.1 1.7 0.1 -Current Size (cm) - Depth 0.1 0.1 0.1 -Total Square Cm 0.01 2.38 0.01 -Date of Last Picture (Recall this 12/24/24 field) -Photo Taken Yes Yes Yes -Epithelialization None Present -Tunneling No -Undermining/Tunneling No -Circular Undermining No -Exudate Amt None Present None Present None Present -Wound Margin Thickened Distinct, Outline Attached -Granulation Amt None Present (0 None Present (0 None Present (0 %) %) %) -Granulation Quality Pale -Slough/Fibrin Yes Yes -Necrosis Amt Small (1-33%) Large (67-100%) Large (67-100%) -Necrotic Tissue Type Eschar Eschar Eschar -Structure Exposed N/A N/A -Texture (Lianna-wound Skin Appearance) Scarring Assessed Assessed -Moisture (Lianna-wound Skin Appearance) No Abnormality, Assessed,Dry/ Assessed Dry/Scaly Scaly -Color (Lianna-wound Skin Appearance) No Abnormality Assessed Assessed -Temperature (Lianna-wound Skin No Abnormality No Abnormality Appearance) (Pt Warm) (Pt Warm) -Tenderness on Palpation (Lianna-wound No Skin Appearance) -Ulcer Cleansing Rinsed/ Rinsed/ Wound Cleanser Irrigated with Irrigated with Saline Saline -Foul Odor after Cleansing No No No -Anesthetic Used 5% Lidocaine 5% Lidocaine 5% Lidocaine Gel Gel Gel -Wound Comment(s) lg black scab #6- R HEEL -Combined with other wound No No -Current Size (cm) - Length 0.1 1.8 0.1 -Current Size (cm) - Width 0.1 0.7 0.1 -Current Size (cm) - Depth 0.1 0.1 0.1 -Total Square Cm 0.01 1.26 0.01 -Date of Last Picture (Recall this 12/24/24 field) -Photo Taken Yes Yes Yes -Epithelialization Medium 34-66% -Tunneling No No -Undermining/Tunneling No No -Circular Undermining No No -Exudate Amt None Present Medium None Present -Exudate Type Serosanguineous -Wound Margin Thickened Distinct, Distinct, Outline Outline Attached Attached -Granulation Amt None Present (0 None Present (0 None Present (0 %) %) %) -Slough/Fibrin Yes Yes -Necrosis Amt Small (1-33%) Large (67-100%) Large (67-100%) -Necrotic Tissue Type Adherent Slough Adherent Slough Adherent Slough -Structure Exposed N/A N/A -Texture (Lianna-wound Skin Appearance) Scarring Assessed, Assessed,Callus Scarring -Moisture (Lianna-wound Skin Appearance) No Abnormality, Assessed,Dry/ Assessed Weeping Scaly -Color (Lianna-wound Skin Appearance) Assessed Assessed Assessed -Temperature (Lianna-wound Skin No Abnormality No Abnormality No Abnormality Appearance) (Pt Warm) (Pt Warm) (Pt Warm) -Tenderness on Palpation (Lianna-wound No No No Skin Appearance) -Ulcer Cleansing Rinsed/ Rinsed/ Wound Cleanser Irrigated with Irrigated with Saline Saline -Foul Odor after Cleansing No No No -Anesthetic Used 5% Lidocaine 5% Lidocaine 5% Lidocaine Gel Gel Gel Lower Limb Edema Present Yes Yes Right Calf (cm) 47 48.1 48.2 Right Ankle (cm) 29.5 29.3 29 WC - Nurse 2 - General Ulcer CM Notes Start: 12/17/24 13:19 Freq: Status: Active Protocol: Activity Type Activity Date Activity User E-sign Co-sign Detail Recorded Client Recorded Date Recorded By Document 12/17/24 14:10 GM [id number] 12/17/24 14:14 GM Document 12/24/24 14:19 [id number] 12/24/24 14:46 GM Edit Result 12/24/24 14:19 GM (1) [id number] 12/29/24 14:17 Document 01/01/25 15:08 DS [id number] 01/01/25 15:09 DS (1) #6- R HEEL - Correct Procedure => Yes - Procedure Performed => Yes - Type of Procedure => Debridement - Clinical Debridement => Subcutaneous - Tissue Removed => Subcutaneous - Post Debridement (cm) - Length => 0.4 - Post Debridement (cm) - Width => 0.7 - Post Debridement (cm) - Depth => 0.1 - Total Square (Post) (cm) => 0.28 - Area of Debridement (cm) - Length => 0.4 - Area of Debridement (cm) - Width => 0.7 - Total Square (Area) (cm) => 0.28 - Tunneling => No - Undermining/Tunneling => No - Circular Undermining => No - Wound/Ulcer Outcome => Not Healed - Ulcer Cleansing => Not Cleansed - Foul Odor after Cleansing => No - Bioengineered Tissue => No - Bleeding Controlled with => Pressure - Treatment Response => Procedure => Tolerated Well - Offloading => No - Debridement - Subq, 1st 20sq cm => Yes 12/17/24 12/24/24 01/01/25 14:10 14:19 15:08 Wound Center Nurse 2 #7- R GR TOE -Time 14:11 14:19 15:08 -Correct Patient Yes Yes Yes -Correct Side, Site, Position Yes Yes Yes -Correct Procedure No No -Procedure Performed No No No -Tunneling No No No -Undermining/Tunneling No No No -Circular Undermining No No -Wound/Ulcer Outcome Not Healed Not Healed Not Healed -Foul Odor after Cleansing No -Bioengineered Tissue No -Bleeding Controlled with NA -Treatment Response Procedure Tolerated Well -Offloading No No -Wound Comment(s) skin intact, Dry gangrene blood blister or necrotic #6- R HEEL -Time 14:12 14:20 15:09 -Correct Patient Yes Yes Yes -Correct Side, Site, Position Yes Yes Yes -Correct Procedure Yes Yes Yes -Procedure Performed Yes Yes Yes -Type of Procedure Debridement Debridement Debridement -Clinical Debridement Subcutaneous Subcutaneous Subcutaneous -Tissue Removed Subcutaneous Subcutaneous Subcutaneous -Post Debridement (cm) - Length 1.2 0.4 2.0 -Post Debridement (cm) - Width 0.5 0.7 0.6 -Post Debridement (cm) - Depth 0.2 0.1 0.3 -Total Square (Post) (cm) 0.60 0.28 1.20 -Area of Debridement (cm) - Length 1.2 0.4 0.6 -Area of Debridement (cm) - Width 0.5 0.7 0.3 -Total Square (Area) (cm) 0.60 0.28 0.18 -Tunneling No No No -Undermining/Tunneling No No No -Circular Undermining No No No -Wound/Ulcer Outcome Not Healed Not Healed Not Healed -Ulcer Cleansing Not Cleansed Not Cleansed Rinsed/ Irrigated with Saline -Foul Odor after Cleansing No No No -Bioengineered Tissue No No No -Bleeding Controlled with Pressure Pressure Pressure -Treatment Response Procedure Procedure Procedure Tolerated Well Tolerated Well Tolerated Well -Offloading No No -Assistive Device(s) Walker -Debridement - Subq, 1st 20sq cm Yes Yes Yes Pain Scale: 0-10 Numeric Is Patient Pain Free? Yes Yes Yes - Nurse 3 - General Ulcer D/C NN Start: 12/17/24 13:19 Freq: Status: Active Protocol: Activity Type Activity Date Activity User E-sign Co-sign Detail Recorded Client Recorded Date Recorded By Document 12/17/24 14:21 DL [id number] 12/17/24 14:24 DL Document 12/24/24 14:49 ML [id number] 12/24/24 14:51 ML Document 01/01/25 15:41 ML [id number] 01/01/25 15:42 ML 12/17/24 12/24/24 01/01/25 14:21 14:49 15:41 Wound Care Center Nurse 3 #7- R GR TOE -Primary Dressing Applied Promogran Joelle Matter -Primary Dressing Covered/Secured with Dry Gauze, Dry Gauze & Secured with Roll Gauze, Tape Secured with Tape -Other Covering pad and protect -Promogran Joelle Matter 1 #6- R HEEL -Ulcer Cleansing Rinsed/ Rinsed/ Rinsed/ Irrigated with Irrigated with Irrigated with Saline Saline Saline -Foul Odor after Cleansing No -Primary Dressing Applied Promogran Promogran Joelle Matter Joelle Matter -Other Dressing Joelle -Primary Dressing Covered/Secured with Dry Gauze & Dry Gauze & Dry Gauze,Dry Roll Gauze, Roll Gauze, Gauze & Roll Secured with Secured with Gauze,Secured Tape Tape with Tape -Other Covering Nurse Hat -Promogran Joelle Matter 0 0 -Wound Comment(s) Brought own compression. RLE -Tubular Bandage Single Layer -Size of Tubigrip Used Size F -Size F ($) 1 Treatment Response Procedure Tolerated Well Pain Scale: 0-10 Numeric Is Patient Pain Free? Yes Yes Yes WC - Visit Discharge Discharge Condition Stable Ambulatory Status Ambulatory, Walker Transportation Private Auto Charges/Coding Procedures Integumentary [id number]: [id number] [place] subq tissue 20 sq cm/< Assessment/Plan Assessment/Plan (1) Diabetic ulcer of foot associated with diabetes mellitus due to underlying condition, with fat layer exposed: CODE(S): E08.621 - Diabetes mellitus due to underlying condition with foot ulcer; L97.502 - Non-pressure chronic ulcer of other part of unspecified foot with fat layer exposed QUALIFIERS: Diabetic foot ulcer location: heel Laterality: right Qualified Code(s): E08.621 - Diabetes mellitus due to underlying condition with foot ulcer; L97.412 - Non-pressure chronic ulcer of right heel and midfoot with fat layer exposed (2) 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: CODE(S): L97.412 - Non-pressure chronic ulcer of right heel and midfoot with fat layer exposed (3) Chronic ulcer of right heel with fat layer exposed: CODE(S): L97.412 - Non-pressure chronic ulcer of right heel and midfoot with fat layer exposed (4) Diabetic ulcer of toe: CODE(S): E11.621 - Type 2 diabetes mellitus with foot ulcer; L97.509 - Non-pressure chronic ulcer of other part of unspecified foot with unspecified severity QUALIFIERS: Diabetes mellitus type: type 2 Laterality: right Non-pressure ulcer stage: with other severity Qualified Code(s): E11.621 - Type 2 diabetes mellitus with foot ulcer; L97.518 - Non-pressure chronic ulcer of other part of right foot with other specified severity (5) Type 2 diabetes mellitus with foot ulcer: CODE(S): E11.621 - Type 2 diabetes mellitus with foot ulcer; L97.509 - Non-pressure chronic ulcer of other part of unspecified foot with unspecified severity QUALIFIERS: Diabetes mellitus terminal gauger insulin use: with terminal gauger use Qualified Code(s): E11.621 - Type 2 diabetes mellitus with foot ulcer; L97.509 - Non-pressure chronic ulcer of other part of unspecified foot with u nspecified severity; Z79.4 - superintendent terminal (current) use of insulin (6) Diabetic foot ulcer: CODE(S): E11.621 - Type 2 diabetes mellitus with foot ulcer; L97.509 - Non-pressure chronic ulcer of other part of unspecified foot with unspecified severity QUALIFIERS: Diabetic foot ulcer location: heel Diabetes mellitus type: type 2 Laterality: right Non-pressure ulcer stage: with fat layer exposed Qualified Code(s): E11.621 - Type 2 diabetes mellitus with foot ulcer; L97.412 - Non-pressure chronic ulcer of right heel and midfoot with fat layer exposed (7) History of total knee arthroplasty: CODE(S): Z96.659 - Presence of unspecified artificial knee joint (8) Morbid obesity with BMI of 45.0-49.9, adult: CODE(S): E66.01 - Morbid (severe) obesity due to excess calories; Z68.42 - Body mass index [BMI] 45.0-49.9, adult (9) Diabetic polyneuropathy: CODE(S): E11.42 - Type 2 diabetes mellitus with diabetic polyneuropathy (10) Benign prostatic hyperplasia: CODE(S): N40.0 - Benign prostatic hyperplasia without lower urinary tract symptoms (11) Diabetes mellitus type 2 with complications, uncontrolled: (12) History of pulmonary embolism: CODE(S): Z86.711 - Personal history of pulmonary embolism (13) History of deep vein thrombosis (DVT) of lower extremity: CODE(S): Z86.718 - Personal history of other venous thrombosis and embolism (14) Hypertension: CODE(S): I10 - Essential (primary) hypertension QUALIFIERS: Hypertension type: primary hypertension Qualified Code(s): I10 - Essential (primary) hypertension (15) Debility: CODE(S): R53.81 - Other malaise (16) Lower extremity edema: CODE(S): R60.0 - Localized edema (17) Status post lumbar surgery: CODE(S): Z98.890 - Other specified postprocedural states (18) Spondylosis: CODE(S): M47.9 - Spondylosis, unspecified (19) GRETCHEN treated with BiPAP: CODE(S): G47.33 - Obstructive sleep apnea (adult) (pediatric) (20) Former tobacco use: CODE(S): Z87.891 - Personal history of nicotine dependence (21) VTE (venous thromboembolism): CODE(S): I82.90 - Acute embolism and thrombosis of unspecified vein (22) Dyslipidemia: CODE(S): E78.5 - Hyperlipidemia, unspecified (23) Hx of total knee replacement: CODE(S): Z96.659 - Presence of unspecified artificial knee joint (24) History of vascular surgery: CODE(S): Z98.890 - Other specified postprocedural states (25) Hx of laminectomy: CODE(S): Z98.890 - Other specified postprocedural states (26) History of pyloromyotomy: CODE(S): Z98.890 - Other specified postprocedural states (27) Onychomycosis: CODE(S): B35.1 - Tinea unguium (28) Stage 3b chronic kidney disease (CKD): CODE(S): N18.32 - Chronic kidney disease, stage 3b (29) Diabetic foot ulcer associated with diabetes mellitus due to underlying condition: CODE(S): E08.621 - Diabetes mellitus due to underlying condition with foot ulcer; L97.509 - Non-pressure chronic ulcer of other part of unspecified foot with unspecified severity (30) Charcot arthropathy: CODE(S): M14.60 - Charcot's joint, unspecified site PLAN: Plan This is a 69-year-old male who presented with recurrent ulcerations of the right postero-lateral heel and right great toe. The patient is obese and known to be diabetic. He also suffers from multiple other pre-existing medical problems. The ulcerations appear to be pressure and diabetes related. The patient's most recent Hemoglobin A1c was noted to be 8.0. Other laboratory results from the [facility], obtained on 11/28/2024, were as follows: White blood count 13. 38, hemoglobin 16.3, hematocrit 48.3, platelets 191,000, glucose 263, BUN 28, creatinine 1.57, sodium 138, potassium 5.2, chloride 99, calcium 10.0. In addition, a noninvasive lower extremity arterial study, performed on December 12, 2024, revealed no evidence of significant arterial occlusive disease in the lower extremities bilaterally. The importance of offloading measures has been discussed with the patient, and his at the bedside. He is to continue wearing his offloading footwear, previously fitted by his [employer], Dr. Saurabh Dasilva. However, the fit of these shoes may need to be reevaluated. Whether the right postero-lateral heel ulceration is due to poorly fitted footwear, or pressure from the bed surface, is not clear. The patient claims to sleep on his back, and the site of the ulcer on the posterior heel may be due to pressure against the bed surface. Therefore, the patient has been advised to obtain a Podus boot for offloading purposes. He has obtained the Podus boot and has been implementing its use. With respect to this ulceration, we are to continue the use of moistened Joelle topically on a daily basis. The patient and his have been instructed in the appropriate means of application. The site on the tip of the right great toe appears to represent dry gangrene. Therefore, it is to be left undisturbed, and will be monitored on a serial basis. The patient has been advised to optimize his nutritional intake, as well as his diabetic control. We are to implement the use of a single Tubigrip to the right lower extremity, which will be donned on a daily basis. The patient does have a history of swelling in his lower extremities. He has been advised to continue using his mechanical pneumatic compression pumps several times daily. He has also been advised to elevate his lower extremities as much as possible. Prolonged idle sitting has been discouraged. Ambulation has been encouraged. Weight loss is also been encouraged. The patient has an upcoming visit with his primary care physician, Dr. Kate, and we are to obtain routine laboratory studies for our benefit, and for the benefit of his primary care physician. A CBC, comprehensive metabolic profile, and hemoglobin A1c will be obtained. The patient is return in 1 week for reevaluation. Total time: 26 minutes
[2025-01-07 14:44] VITALS: BP 156/95; PULSE 85; RESP 18; TEMP 36.5; BMI 48.8
--- NOTE | 2025-01-08 11:02 | WC ---
PHOTO 01/07/25 RIGHT HEEL
--- NOTE | 2025-01-08 11:03 | WC ---
PHOTO 01/07/25 RIGHT GREAT TOE
--- NOTE | 2025-01-09 15:17 | PCM.WC.HP ---
History of Present Illness Date of Service: 01/07/25 Chief Complaint: Right heel ulcer and right hallux ulcer History of Wound: This is a 69 year-old male who presented to [facility] for evaluation of a right heel ulcer. It started as a a pressure ulcer in February 2022 when he he was in TCU and it healed. It then became a blister right before his Left TKR surgery. He had his left knee replaced 07/14/22 at [facility]. 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 He also has a history of diabetes type II with peripheral polyneuropathy, HTN, lymphedema, hypercholesterolemia and PE that he is on Xerelto. Wound culture obtained on 08/30/22 which are positive for VRE, Kocuria kristinae and Corynebacterium striatum. He will completed the Linezolid. Wound culture obtained 06/20/23 which was positive for Staphylococcus pseudintermediu, Pseudomonas aeruginosa, Corynebacterium minutissiumum, and Anaerobic cocci. He was started on Levaquin and Flagyl. Foot xray 09/27/22 - Osteopenia with diffuse osteoarthritic changes. Diffuse soft tissue swelling with ossification of the distal Achilles tendon. No acute abnormality or evidence of erosive changes. Did undergo updated radiograph of the right foot 11/08/2023 with no noted changes from previous x-ray. This is a recurring ulceration to both distal tuft of the right hallux and posterior lateral heel. He stated both sites had scabbed up and he was previously discharged however scabs have later broken down with re-ulceration. [facility] Medical History Diabetic ulcer of foot associated with diabetes mellitus due to underlying condition, with fat layer exposed Charcot arthropathy Diabetic foot ulcer Diabetic foot ulcer associated with diabetes mellitus due to underlying condition Stage 3b chronic kidney disease (CKD) Onychomycosis History of deep vein thrombosis (DVT) of lower extremity Diabetic ulcer of toe VTE (venous thromboembolism) Dyslipidemia Diabetes mellitus type 2 with complications, uncontrolled Morbid obesity with BMI of 45.0-49.9, adult GRETCHEN treated with BiPAP Morbid obesity Former tobacco use BPH (benign prostatic hyperplasia) HTN (hypertension) Diabetes mellitus Home Medications ?Medication ?Instructions ?Recorded ?Last Taken ?Type atorvastatin 20 mg tablet 20 mg PO QHS cholesterol 08/27/15 02/21/22 History furosemide 40 mg tablet 80 mg PO DAILY diuretic 08/27/15 02/22/22 History rivaroxaban 20 mg tablet (Xarelto) 20 mg PO DINNER blood thinner 03/23/16 02/21/22 History doxazosin 4 mg tablet 4 mg PO QHS blood pressure 04/03/20 02/21/22 History insulin lispro 100 unit/mL 20 unit subcut BREAKFAST diabetes 02/23/22 02/22/22 History subcutaneous pen insulin lispro 100 unit/mL 20 unit subcut LUNCH diabetes 02/23/22 02/22/22 History subcutaneous pen gabapentin 600 mg tablet 600 mg PO TIDCM Nerve Pain 02/24/22 Unknown History doxycycline hyclate 100 mg capsule 100 mg PO BID infection #60 caps 04/07/22 Unknown Rx insulin glargine-yfgn 100 unit/mL 50 unit (0.5 mL) subcut QHS dm #0 04/10/22 Unknown Rx (3 mL) subcutaneous pen mL insulin lispro 100 unit/mL 20 unit (0.2 mL) subcut DINNER dm 04/10/22 Unknown Rx subcutaneous pen (Humalog KwikPen #0 mL (U-100) Insulin) aspirin 81 mg capsule 81 mg PO DAILY heart health 08/16/22 Unknown History calcium carbonate (Tums) 200 mg PO BID PRN Heartburn 08/16/22 Unknown History dulaglutide 3 mg/0.5 mL 3 mg subcut QWEEK dm 08/16/22 Unknown History subcutaneous pen injector (Trulicity) hydrocodone-acetaminophen 5-325mg 1 tab PO Q8H PRN Pain 08/16/22 Unknown History 5mg-325mg zinc 50 mg capsule 50 mg PO DAILY supplement 08/16/22 Unknown History losartan 100 mg tablet 100 mg PO DAILY bp 12/10/24 Unknown History metoprolol tartrate 75 mg tablet 75 mg PO BID bp 01/08/25 Unknown History tizanidine 4 mg tablet 4 mg PO TID PRN PRN low back pain 01/08/25 Unknown History Allergy/AdvReac Type Severity Reaction Status Date / Time Penicillins Allergy Unknown Hives Verified 01/08/25 14:25 erythromycin base AdvReac Nausea Verified 01/08/25 14:25 (Erythromycin Base) Family History Mother Diabetes Heart disease Coagulopathy Father Heart disease CVA (cerebral vascular accident) Parkinsons disease Surgical History History of pyloromyotomy History of total knee arthroplasty Hx of total knee replacement History of vascular surgery Status post creation of pericardial window Hx of laminectomy Social History household members: spouse Smoking Status: Former smoker how long ago did patient quit smoking: Quit 1994, smoked 1 ppd since age 15. alcohol intake: never substance use type: does not use Vital Signs Vital Signs Vital Signs: Weight Weight: 360 lb Body Mass Index (BMI) 48.8 Physical Exam Const alert, oriented x3, no apparent distress, no limitations and well nourished Constitutional Narrative: The patient is obese with a BMI of 48.8. General Appearance: cooperative, comfortable and well developed Orientation / Consciousness: awake, oriented to person, oriented to place and oriented to time Exam Limitations: no limitations HEENT normocephalic, head/scalp atraumatic and moist oral mucous membranes Head and Scalp: normal to inspection, normocephalic and atraumatic Face and Sinus: normal facial exam Nose: external nose normal External Ear: external ears normal Eyes EOMs intact bilaterally General Eye: normal appearance of both eyes Neck full ROM, supple and no JVD Resp normal respiratory effort, normal air movement, no retractions and no use of accessory muscles Resp Narrative: mildly diminished breath sounds bibasally, no wheezes. Few crackles. On room air. Effort and Inspection: able to speak in complete sentences GI GI Narrative: obese abdomen Inspection: central obesity Extremity Extremity Narrative: right foot wrapped in bandage. NO erythema, swelling or tenderness of the right knee. Skin Skin Narrative: as under extremities Wound Narrative: An ulceration is noted on the patient's right postero-lateral heel. It appears to be a Gomez Grade 1 ulceration. It extends through all layers of the dermis and into the subcutaneous tissues. There is no significant erythema or cellulitis. There is no obvious infection or cellulitis. There is a moderate amount of bioburden, residual Magalis, and nonviable tissue. Wound margins are well beveled. Dimensions are documented elsewhere. It has decreased in size since the patient's last visit. The tip of the right great toe continues to demonstrate an area of firm, thickened black tissue. It is dry and without drainage or fluctuance. There is no surrounding erythema or cellulitis. It appears to represent dry gangrene. Dimensions are documented elsewhere. There has been little change in appearance in recent weeks. Onychomycosis is noted to involve the nails of the right foot. A Charcot foot deformity is noted. Neuro oriented x3, CN's II-XII intact bilaterally, moves all extremities, no focal motor deficits and no sensory deficits noted Sensorium / Orientation: awake, alert, oriented to person, oriented to place and oriented to time Motor Exam: general weakness Psych cooperative and affect normal Psych Narrative: confused Debridement Note Debridement Note Wound debrided: Right postero-lateral heel ulceration Laterality: Right Wound Grade/Stage: Gomez Grade 1 Type of Debridement: Excisional debridement Anesthesia Used: 5% Lidocaine Gel Depth: Down to and including healthy tissue and in the subcutaneous layer Percentage of wound debrided: 100 Instrument Used: 3mm curette Tissue Removed: Bioburden, residual Magalis, and nonviable tissue Severity: Fat Layer Exposed Amount of bleeding with debridement: Mild Bleeding Controlled with: Compression and gauze Patient tolerated procedure: Patient tolerated procedure well Post-Debridement Measurements and Additional Note: Post-Debridement Measurements/Treatment - Nurse 1 - General Ulcer Assessment Start: 12/17/24 13:19 Freq: Status: Active Protocol: LAM.MIRA Activity Type Activity Date Activity User E-sign Co-sign Detail Recorded Client Recorded Date Recorded By Document 12/17/24 13:20 DL [id number] 12/17/24 13:34 DL Document 12/24/24 13:47 BMF [id number] 12/24/24 13:58 BMF Document 01/01/25 14:20 RB [id number] 01/01/25 14:24 RB Document 01/07/25 14:44 KW [id number] 01/07/25 14:59 KW 12/17/24 12/24/24 01/01/25 13:20 13:47 14:20 - Today's Visit Information Type of service Follow-up Visit Follow-up Visit Follow-up Visit (Physician/VACUUM KETTLE COOK (Physician/VACUUM KETTLE COOK (Physician/VACUUM KETTLE COOK ) ) ) Arrival Mode Ambulatory, Ambulatory, Ambulatory, Walker Walker Walker Transfer Assistance None None Manual Patient Identification Verified (Name & Yes Yes Yes ) Patient Requires Transmission-Based No No No Precautions Finger Stick Blood Sugar(mg/dl) (if indicated): Blood Sugar Height and Weight Body Mass Index (BMI) 48.8 48.8 48.8 BMI Classification Obese Obese Obese Vital Signs Temperature (97.8 F-99.1 F) 97.4 F L 97.9 F 96.8 F L Temperature Source Temporal Temporal Temporal Pulse Rate (60-100) 88 85 92 Pulse Location Monitor Monitor Monitor Respiratory Rate (12-18) 18 16 18 Respiratory rate source Observation Observation Observation Oxygen Delivery Method Room Air Blood Pressure (90/60-120/80) 158/79 H 152/89 H 180/80 H Blood Pressure Mean 105 110 113 Source Monitor Monitor Monitor Position Sitting Semi-Fowlers Blood Pressure Location Left Forearm Left Arm History Since Last Visit- (Skip if this is Patient's initial visit) Have you changed medications since your No No No last visit? Any new allergies or adverse reactions No No No Had a fall/change in ADL's that may No No No increase risk of falls Signs or symptoms of abuse and/or No No No neglect since last visit Have you been in the hospital since your No No No last visit? Has dressing in place as prescribed Yes Yes Yes Has compression in place as prescribed Yes N/A Yes Has offloadiing in place as prescribed Yes Yes N/A Experienced any changes in pain level or No No No management Left Footwear Diabetic Shoe Right Footwear Surgical Shoe with pressure relief insole Pain Scale: 0-10 Numeric Is Patient Pain Free? Yes Yes Yes 01/07/25 14:44 WC - Today's Visit Information Type of service Follow-up Visit (Physician/VACUUM KETTLE COOK ) Arrival Mode Ambulatory, Wheelchair Transfer Assistance Patient Identification Verified (Name & Yes ) Patient Requires Transmission-Based Precautions Finger Stick Blood Sugar(mg/dl) (if 160 indicated): Blood Sugar Stated by Patient Height and Weight Body Mass Index (BMI) 48.8 BMI Classification Obese Vital Signs Temperature (97.8 F-99.1 F) 97.7 F L Temperature Source Temporal Pulse Rate (60-100) 85 Pulse Location Monitor Respiratory Rate (12-18) 18 Respiratory rate source Observation Oxygen Delivery Method Room Air Blood Pressure (90/60-120/80) 156/95 H Blood Pressure Mean 115 Source Monitor Position Sitting Blood Pressure Location Left Arm History Since Last Visit- (Skip if this is Patient's initial visit) Have you changed medications since your No last visit? Any new allergies or adverse reactions No Had a fall/change in ADL's that may No increase risk of falls Signs or symptoms of abuse and/or No neglect since last visit Have you been in the hospital since your No last visit? Has dressing in place as prescribed Yes Has compression in place as prescribed Yes Has offloadiing in place as prescribed Yes Experienced any changes in pain level or No management Left Footwear Regular Shoe Right Footwear Surgical Shoe with pressure relief insole Pain Scale: 0-10 Numeric Is Patient Pain Free? Yes WC - Nurse 1 - General Ulcer Measurement Start: 12/17/24 13:19 Freq: Status: Active Protocol: Activity Type Activity Date Activity User E-sign Co-sign Detail Recorded Client Recorded Date Recorded By Document 12/17/24 13:20 DL [id number] 12/17/24 13:34 DL Document 12/24/24 13:47 BMF [id number] 12/24/24 13:58 BMF Document 01/01/25 14:20 RB [id number] 01/01/25 14:24 RB Document 01/07/25 14:44 KW [id number] 01/07/25 14:59 KW 12/17/24 12/24/24 01/01/25 13:20 13:47 14:20 Wound Center Nurse 1 #7- R GR TOE -Combined with other wound No No -Current Size (cm) - Length 0.1 1.4 0.1 -Current Size (cm) - Width 0.1 1.7 0.1 -Current Size (cm) - Depth 0.1 0.1 0.1 -Total Square Cm 0.01 2.38 0.01 -Date of Last Picture (Recall this 12/24/24 field) -Photo Taken Yes Yes Yes -Epithelialization None Present -Tunneling No -Undermining/Tunneling No -Circular Undermining No -Exudate Amt None Present None Present None Present -Exudate Type -Wound Margin Thickened Distinct, Outline Attached -Granulation Amt None Present (0 None Present (0 None Present (0 %) %) %) -Granulation Quality Pale -Slough/Fibrin Yes Yes -Necrosis Amt Small (1-33%) Large (67-100%) Large (67-100%) -Necrotic Tissue Type Eschar Eschar Eschar -Structure Exposed N/A N/A -Texture (Lianna-wound Skin Appearance) Scarring Assessed Assessed -Moisture (Lianna-wound Skin Appearance) No Abnormality, Assessed,Dry/ Assessed Dry/Scaly Scaly -Color (Lianna-wound Skin Appearance) No Abnormality Assessed Assessed -Temperature (Lianna-wound Skin No Abnormality No Abnormality Appearance) (Pt Warm) (Pt Warm) -Tenderness on Palpation (Lianna-wound No Skin Appearance) -Ulcer Cleansing Rinsed/ Rinsed/ Wound Cleanser Irrigated with Irrigated with Saline Saline -Foul Odor after Cleansing No No No -Anesthetic Used 5% Lidocaine 5% Lidocaine 5% Lidocaine Gel Gel Gel -Wound Comment(s) lg black scab #6- R HEEL -Combined with other wound No No -Current Size (cm) - Length 0.1 1.8 0.1 -Current Size (cm) - Width 0.1 0.7 0.1 -Current Size (cm) - Depth 0.1 0.1 0.1 -Total Square Cm 0.01 1.26 0.01 -Date of Last Picture (Recall this 12/24/24 field) -Photo Taken Yes Yes Yes -Epithelialization Medium 34-66% -Tunneling No No -Undermining/Tunneling No No -Circular Undermining No No -Exudate Amt None Present Medium None Present -Exudate Type Serosanguineous -Wound Margin Thickened Distinct, Distinct, Outline Outline Attached Attached -Granulation Amt None Present (0 None Present (0 None Present (0 %) %) %) -Slough/Fibrin Yes Yes -Necrosis Amt Small (1-33%) Large (67-100%) Large (67-100%) -Necrotic Tissue Type Adherent Slough Adherent Slough Adherent Slough -Structure Exposed N/A N/A -Texture (Lianna-wound Skin Appearance) Scarring Assessed, Assessed,Callus Scarring -Moisture (Lianna-wound Skin Appearance) No Abnormality, Assessed,Dry/ Assessed Weeping Scaly -Color (Lianna-wound Skin Appearance) Assessed Assessed Assessed -Temperature (Lianna-wound Skin No Abnormality No Abnormality No Abnormality Appearance) (Pt Warm) (Pt Warm) (Pt Warm) -Tenderness on Palpation (Lianna-wound No No No Skin Appearance) -Ulcer Cleansing Rinsed/ Rinsed/ Wound Cleanser Irrigated with Irrigated with Saline Saline -Foul Odor after Cleansing No No No -Anesthetic Used 5% Lidocaine 5% Lidocaine 5% Lidocaine Gel Gel Gel Lower Limb Edema Present Yes Yes Right Calf (cm) 47 48.1 48.2 Right Ankle (cm) 29.5 29.3 29 01/07/25 14:44 Wound Center Nurse 1 #7- R GR TOE -Combined with other wound -Current Size (cm) - Length 1.5 -Current Size (cm) - Width 0.5 -Current Size (cm) - Depth 0.3 -Total Square Cm 0.75 -Date of Last Picture (Recall this 01/07/25 field) -Photo Taken -Epithelialization -Tunneling -Undermining/Tunneling -Circular Undermining -Exudate Amt Medium -Exudate Type Serosanguineous -Wound Margin Distinct, Outline Attached -Granulation Amt Medium (34-66%) -Granulation Quality [place] -Slough/Fibrin -Necrosis Amt Medium (34-66%) -Necrotic Tissue Type Eschar -Structure Exposed -Texture (Lianna-wound Skin Appearance) Assessed -Moisture (Lianna-wound Skin Appearance) Assessed, Maceration -Color (Lianna-wound Skin Appearance) Assessed -Temperature (Lianna-wound Skin No Abnormality Appearance) (Pt Warm) -Tenderness on Palpation (Lianna-wound No Skin Appearance) -Ulcer Cleansing Soap and Water -Foul Odor after Cleansing No -Anesthetic Used 5% Lidocaine Gel -Wound Comment(s) #6- R HEEL -Combined with other wound -Current Size (cm) - Length -Current Size (cm) - Width -Current Size (cm) - Depth -Total Square Cm -Date of Last Picture (Recall this field) -Photo Taken -Epithelialization -Tunneling -Undermining/Tunneling -Circular Undermining -Exudate Amt -Exudate Type -Wound Margin -Granulation Amt -Slough/Fibrin -Necrosis Amt -Necrotic Tissue Type -Structure Exposed -Texture (Lianna-wound Skin Appearance) -Moisture (Lianna-wound Skin Appearance) -Color (Lianna-wound Skin Appearance) -Temperature (Lianna-wound Skin Appearance) -Tenderness on Palpation (Lianna-wound Skin Appearance) -Ulcer Cleansing -Foul Odor after Cleansing -Anesthetic Used Lower Limb Edema Present Right Calf (cm) Right Ankle (cm) WC - Nurse 2 - General Ulcer CM Notes Start: 12/17/24 13:19 Freq: Status: Active Protocol: Activity Type Activity Date Activity User E-sign Co-sign Detail Recorded Client Recorded Date Recorded By Document 12/17/24 14:10 GM [id number] 12/17/24 14:14 GM Document 12/24/24 14:19 GM [id number] 12/24/24 14:46 GM Edit Result 12/24/24 14:19 GM (1) [id number] 12/29/24 14:17 GM Document 01/01/25 15:08 DS [id number] 01/01/25 15:09 DS Document 01/07/25 15:40 JF [id number] 01/07/25 15:44 JF (1) #6- R HEEL - Correct Procedure => Yes - Procedure Performed => Yes - Type of Procedure => Debridement - Clinical Debridement => Subcutaneous - Tissue Removed => Subcutaneous - Post Debridement (cm) - Length => 0.4 - Post Debridement (cm) - Width => 0.7 - Post Debridement (cm) - Depth => 0.1 - Total Square (Post) (cm) => 0.28 - Area of Debridement (cm) - Length => 0.4 - Area of Debridement (cm) - Width => 0.7 - Total Square (Area) (cm) => 0.28 - Tunneling => No - Undermining/Tunneling => No - Circular Undermining => No - Wound/Ulcer Outcome => Not Healed - Ulcer Cleansing => Not Cleansed - Foul Odor after Cleansing => No - Bioengineered Tissue => No - Bleeding Controlled with => Pressure - Treatment Response => Procedure => Tolerated Well - Offloading => No - Debridement - Subq, 1st 20sq cm => Yes 12/17/24 12/24/24 01/01/25 14:10 14:19 15:08 Wound Center Nurse 2 #7- R GR TOE -Time 14:11 14:19 15:08 -Correct Patient Yes Yes Yes -Correct Side, Site, Position Yes Yes Yes -Correct Procedure No No -Procedure Performed No No No -Tunneling No No No -Undermining/Tunneling No No No -Circular Undermining No No -Wound/Ulcer Outcome Not Healed Not Healed Not Healed -Foul Odor after Cleansing No -Bioengineered Tissue No -Bleeding Controlled with NA -Treatment Response Procedure Tolerated Well -Offloading No No -Wound Comment(s) skin intact, Dry gangrene blood blister or necrotic #6- R HEEL -Time 14:12 14:20 15:09 -Correct Patient Yes Yes Yes -Correct Side, Site, Position Yes Yes Yes -Correct Procedure Yes Yes Yes -Procedure Performed Yes Yes Yes -Type of Procedure Debridement Debridement Debridement -Clinical Debridement Subcutaneous Subcutaneous Subcutaneous -Tissue Removed Subcutaneous Subcutaneous Subcutaneous -Post Debridement (cm) - Length 1.2 0.4 2.0 -Post Debridement (cm) - Width 0.5 0.7 0.6 -Post Debridement (cm) - Depth 0.2 0.1 0.3 -Total Square (Post) (cm) 0.60 0.28 1.20 -Area of Debridement (cm) - Length 1.2 0.4 0.6 -Area of Debridement (cm) - Width 0.5 0.7 0.3 -Total Square (Area) (cm) 0.60 0.28 0.18 -Tunneling No No No -Undermining/Tunneling No No No -Circular Undermining No No No -Wound/Ulcer Outcome Not Healed Not Healed Not Healed -Ulcer Cleansing Not Cleansed Not Cleansed Rinsed/ Irrigated with Saline -Foul Odor after Cleansing No No No -Bioengineered Tissue No No No -Bleeding Controlled with Pressure Pressure Pressure -Treatment Response Procedure Procedure Procedure Tolerated Well Tolerated Well Tolerated Well -Offloading No No -Assistive Device(s) Walker -Debridement - Subq, 1st 20sq cm Yes Yes Yes Pain Scale: 0-10 Numeric Is Patient Pain Free? Yes Yes Yes 01/07/25 15:40 Wound Center Nurse 2 #7- R GR TOE -Time -Correct Patient Yes -Correct Side, Site, Position No -Correct Procedure No -Procedure Performed No -Tunneling -Undermining/Tunneling -Circular Undermining -Wound/Ulcer Outcome Not Healed -Foul Odor after Cleansing -Bioengineered Tissue -Bleeding Controlled with -Treatment Response -Offloading -Wound Comment(s) #6- R HEEL -Time 15:41 -Correct Patient Yes -Correct Side, Site, Position Yes -Correct Procedure Yes -Procedure Performed Yes -Type of Procedure Debridement -Clinical Debridement Subcutaneous -Tissue Removed Subcutaneous -Post Debridement (cm) - Length 1.5 -Post Debridement (cm) - Width 0.5 -Post Debridement (cm) - Depth 0.3 -Total Square (Post) (cm) 0.75 -Area of Debridement (cm) - Length 1.5 -Area of Debridement (cm) - Width 0.5 -Total Square (Area) (cm) 0.75 -Tunneling No -Undermining/Tunneling No -Circular Undermining No -Wound/Ulcer Outcome Not Healed -Ulcer Cleansing Rinsed/ Irrigated with Saline -Foul Odor after Cleansing No -Bioengineered Tissue No -Bleeding Controlled with Pressure -Treatment Response Procedure Tolerated Well -Offloading No -Assistive Device(s) -Debridement - Subq, 1st 20sq cm Yes Pain Scale: 0-10 Numeric Is Patient Pain Free? Yes WC - Nurse 3 - General Ulcer D/C NN Start: 12/17/24 13:19 Freq: Status: Active Protocol: Activity Type Activity Date Activity User E-sign Co-sign Detail Recorded Client Recorded Date Recorded By Document 12/17/24 14:21 DL [id number] 12/17/24 14:24 DL Document 12/24/24 14:49 ML [id number] 12/24/24 14:51 ML Document 01/01/25 15:41 ML [id number] 01/01/25 15:42 ML Document 01/07/25 15:54 GM [id number] 01/07/25 15:55 GM 12/17/24 12/24/24 01/01/25 14:21 14:49 15:41 Wound Care Center Nurse 3 #7- R GR TOE -Primary Dressing Applied Promogran Magalis Matter -Primary Dressing Covered/Secured with Dry Gauze, Dry Gauze & Secured with Roll Gauze, Tape Secured with Tape -Other Covering pad and protect -Promogran Magalis Matter 1 #6- R HEEL -Ulcer Cleansing Rinsed/ Rinsed/ Rinsed/ Irrigated with Irrigated with Irrigated with Saline Saline Saline -Foul Odor after Cleansing No -Primary Dressing Applied Promogran Promogran Magalis Matter Magalis Matter -Other Dressing Magalis -Primary Dressing Covered/Secured with Dry Gauze & Dry Gauze & Dry Gauze,Dry Roll Gauze, Roll Gauze, Gauze & Roll Secured with Secured with Gauze,Secured Tape Tape with Tape -Other Covering Nurse Hat -Promogran Magalis Matter 0 0 -Wound Comment(s) Brought own compression. RLE -Lotion applied to leg before compression wrap -Tubular Bandage Single Layer -Size of Tubigrip Used Size F -Size F ($) 1 Treatment Response Procedure Tolerated Well Pain Scale: 0-10 Numeric Is Patient Pain Free? Yes Yes Yes WC - Visit Discharge Discharge Condition Stable Ambulatory Status Ambulatory, Walker Transportation Private Auto Clinical Summary of Care Provided 01/07/25 15:54 Wound Care Center Nurse 3 #7- R GR TOE -Primary Dressing Applied -Primary Dressing Covered/Secured with -Other Covering -Promogran Magalis Matter #6- R HEEL -Ulcer Cleansing Not Cleansed -Foul Odor after Cleansing No -Primary Dressing Applied NonAdherent Contact Layer -Other Dressing -Primary Dressing Covered/Secured with Dry Gauze & Roll Gauze, Secured with Tape -Other Covering used his magalis -Promogran Magalis Matter -Wound Comment(s) RLE -Lotion applied to leg before No compression wrap -Tubular Bandage Single Layer -Size of Tubigrip Used Size F -Size F ($) 1 Treatment Response Pain Scale: 0-10 Numeric Is Patient Pain Free? Yes WC - Visit Discharge Discharge Condition Stable Ambulatory Status Ambulatory Transportation Private Auto Clinical Summary of Care Provided Yes Lab / Micro Data Attestation: I reviewed the patient's lab results. Labs: Laboratory Tests 01/06/25 10:47 WBC 11.3 H Hgb 15.0 Hct 44.4 Plt Count 165 Sodium 141 Potassium 4.2 Chloride 105 Carbon Dioxide 22.7 Anion Gap 13 BUN 19 Creatinine 1.41 H Glucose 177 H Hemoglobin A1c 9.0 H Calcium 9.6 Total Bilirubin 0.55 AST 27 ALT 29 Alkaline Phosphatase 89 Total Protein 7.4 Albumin 3.9 Globulin 3.5 Charges/Coding Procedures Integumentary 111xxx-113xx: [id number] [place] subq tissue 20 sq cm/< Assessment/Plan Assessment/Plan (1) Diabetic ulcer of foot associated with diabetes mellitus due to underlying condition, with fat layer exposed: CODE(S): E08.621 - Diabetes mellitus due to underlying condition with foot ulcer; L97.502 - Non-pressure chronic ulcer of other part of unspecified foot with fat layer exposed QUALIFIERS: Diabetic foot ulcer location: heel Laterality: right Qualified Code(s): E08.621 - Diabetes mellitus due to underlying condition with foot ulcer; L97.412 - Non-pressure chronic ulcer of right heel and midfoot with fat layer exposed (2) 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: CODE(S): L97.412 - Non-pressure chronic ulcer of right heel and midfoot with fat layer exposed (3) Chronic ulcer of right heel with fat layer exposed: CODE(S): L97.412 - Non-pressure chronic ulcer of right heel and midfoot with fat layer exposed (4) Diabetic ulcer of toe: CODE(S): E11.621 - Type 2 diabetes mellitus with foot ulcer; L97.509 - Non-pressure chronic ulcer of other part of unspecified foot with unspecified severity QUALIFIERS: Diabetes mellitus type: type 2 Laterality: right Non-pressure ulcer stage: with other severity Qualified Code(s): E11.621 - Type 2 diabetes mellitus with foot ulcer; L97.518 - Non-pressure chronic ulcer of other part of right foot with other specified severity (5) Type 2 diabetes mellitus with foot ulcer: CODE(S): E11.621 - Type 2 diabetes mellitus with foot ulcer; L97.509 - Non-pressure chronic ulcer of other part of unspecified foot with unspecified severity QUALIFIERS: Diabetes mellitus keno terminal operator insulin use: with shelter use Qualified Code(s): E11.621 - Type 2 diabetes mellitus with foot ulcer; L97.509 - Non-pressure chronic ulcer of other part of unspecified foot with unspecified severity; Z79.4 - group home (current) use of insulin (6) Diabetic foot ulcer: CODE(S): E11.621 - Type 2 diabetes mellitus with foot ulcer; L97.509 - Non-pressure chronic ulcer of other part of unspecified foot with unspecified severity QUALIFIERS: Diabetic foot ulcer location: heel Diabetes mellitus type: type 2 Laterality: right Non-pressure ulcer stage: with fat layer exposed Qualified Code(s): E11.621 - Type 2 diabetes mellitus with foot ulcer; L97.412 - Non-pressure chronic ulcer of right heel and midfoot with fat layer exposed (7) History of total knee arthroplasty: CODE(S): Z96.659 - Presence of unspecified artificial knee joint (8) Morbid obesity with BMI of 45.0-49.9, adult: CODE(S): E66.01 - Morbid (severe) obesity due to excess calories; Z68.42 - Body mass index [BMI] 45.0-49.9, adult (9) Diabetic polyneuropathy: CODE(S): E11.42 - Type 2 diabetes mellitus with diabetic polyneuropathy (10) Benign prostatic hyperplasia: CODE(S): N40.0 - Benign prostatic hyperplasia without lower urinary tract symptoms (11) Diabetes mellitus type 2 with complications, uncontrolled: (12) History of pulmonary embolism: CODE(S): Z86.711 - Personal history of pulmonary embolism (13) History of deep vein thrombosis (DVT) of lower extremity: CODE(S): Z86.718 - Personal history of other venous thrombosis and embolism (14) Hypertension: CODE(S): I10 - Essential (primary) hypertension QUALIFIERS: Hypertension type: primary hypertension Qualified Code(s): I10 - Essential (primary) hypertension (15) Debility: CODE(S): R53.81 - Other malaise (16) Lower extremity edema: CODE(S): R60.0 - Localized edema (17) Status post lumbar surgery: CODE(S): Z98.890 - Other specified postprocedural states (18) Spondylosis: CODE(S): M47.9 - Spondylosis, unspecified (19) GRETCHEN treated with BiPAP: CODE(S): G47.33 - Obstructive sleep apnea (adult) (pediatric) (20) Former tobacco use: CODE(S): Z87.891 - Personal history of nicotine dependence (21) VTE (venous thromboembolism): CODE(S): I82.90 - Acute embolism and thrombosis of unspecified vein (22) Dyslipidemia: CODE(S): E78.5 - Hyperlipidemia, unspecified (23) Hx of total knee replacement: CODE(S): Z96.659 - Presence of unspecified artificial knee joint (24) History of vascular surgery: CODE(S): Z98.890 - Other specified postprocedural states (25) Hx of laminectomy: CODE(S): Z98.890 - Other specified postprocedural states (26) History of pyloromyotomy: CODE(S): Z98.890 - Other specified postprocedural states (27) Onychomycosis: CODE(S): B35.1 - Tinea unguium (28) Stage 3b chronic kidney disease (CKD): CODE(S): N18.32 - Chronic kidney disease, stage 3b (29) Diabetic foot ulcer associated with diabetes mellitus due to underlying condition: CODE(S): E08.621 - Diabetes mellitus due to underlying condition with foot ulcer; L97.509 - Non-pressure chronic ulcer of other part of unspecified foot with unspecified severity (30) Charcot arthropathy: CODE(S): M14.60 - Charcot's joint, unspecified site PLAN: Plan This is a 69-year-old male who presented with recurrent ulcerations of the right postero-lateral heel and right great toe. The patient is obese and known to be diabetic. He also suffers from multiple other pre-existing medical problems. The ulcerations appear to be pressure and diabetes related. The patient's laboratory results from January 06, 2025, have been reviewed. The importance of offloading measures has been discussed with the patient. He is to continue wearing his offloading footwear, previously fitted by his Workforce Investment Act Career Manager, Dr. Saurabh Dasilva. However, the fit of these shoes may need to be reevaluated. Whether the right postero-lateral heel ulceration is due to poorly fitted footwear, or pressure from the bed surface, is not clear. The patient claims to sleep on his back, and the site of the ulcer on the posterior heel may be due to pressure against the bed surface. Therefore, the patient has been advised to obtain a Podus boot for offloading purposes. He has obtained the Podus boot and has been implementing its use. With respect to this ulceration, we are to continue the use of moistened Magalis topically on a daily basis. Adaptic is to be placed over the Magalis, over which a dry gauze dressing will be applied. The patient and his have been instructed in the appropriate means of application. The site on the tip of the right great toe appears to represent dry gangrene. It has changed very little in recent weeks. Therefore, it is to be left undisturbed, and will be monitored on a serial basis. The patient has been advised to optimize his nutritional intake, as well as his diabetic control. We are to continue the use of a single Tubigrip to the right lower extremity, which will be donned on a daily basis. The patient does have a history of swelling in his lower extremities. He has been advised to continue using his mechanical pneumatic compression pumps several times daily. He has also been advised to elevate his lower extremities as much as possible. Prolonged idle sitting has been discouraged. Ambulation has been encouraged. Weight loss is also been encouraged. The patient is to return in 1 week for reevaluation. Total time: 28 minutes
== END 2025-01-10 23:59 | disposition home or self-care (01) ==
LOC: WC 14:30
PROVIDERS: PCP Internal Medicine; Referring Provider Internal Medicine; Visit Provider Surgery
DX: E11.621 Type 2 diabetes mellitus with foot ulcer (principal); L97.512 Non-pressure chronic ulcer of other part of right foot with fat layer exposed; L97.412 Non-pressure chronic ulcer of right heel and midfoot with fat layer exposed; Z68.42 Body mass index [BMI] 45.0-49.9, adult; E66.01 Morbid (severe) obesity due to excess calories; E11.22 Type 2 diabetes mellitus with diabetic chronic kidney disease; Z79.4 Long term (current) use of insulin; E11.42 Type 2 diabetes mellitus with diabetic polyneuropathy; E11.610 Type 2 diabetes mellitus with diabetic neuropathic arthropathy; N18.32 Chronic kidney disease, stage 3b; E78.5 Hyperlipidemia, unspecified; I12.9 Hypertensive chronic kidney disease with stage 1 through stage 4 chronic kidney disease, or unspecified chronic kidney disease; I89.0 Lymphedema, not elsewhere classified; M47.9 Spondylosis, unspecified; B35.1 Tinea unguium; N40.0 Benign prostatic hyperplasia without lower urinary tract symptoms; E78.00 Pure hypercholesterolemia, unspecified; R53.81 Other malaise; G47.33 Obstructive sleep apnea (adult) (pediatric); Z79.01 Long term (current) use of anticoagulants; Z79.82 Long term (current) use of aspirin; Z79.85 Long-term (current) use of injectable non-insulin antidiabetic drugs; Z79.899 Other long term (current) drug therapy; Z86.718 Personal history of other venous thrombosis and embolism; Z87.891 Personal history of nicotine dependence; Z96.652 Presence of left artificial knee joint
CPT/HCPCS: 11042; 93923

== ENCOUNTER 2025-01-08 14:19 | Inpatient (IN) | payer MEDICARE, BC, SELFPAY ==
[2025-01-08] VITALS (8 sets, daily range): BP systolic 106–157; BP diastolic 47–89; PULSE 101–112; RESP 15–24; TEMP 36.7–38.1; O2SAT 93–98; BMI 54.1; BMI 52.9
--- NOTE | 2025-01-08 14:36 | CT_ITS ---
PROCEDURE: BRAIN/HEAD WITHOUT CONTRAST 01/08/2025 REASON FOR EXAM: HEADACHE TECHNIQUE: Head CT without intravenous contrast. Coronal and Sagittal reconstruction series were provided. One or more dose reduction techniques were used (e.g., Automated exposure control, adjustment of the mA and/or kV according to patient size, use of iterative reconstruction technique. RADIATION DOSE SUMMARY: CTDlvol: 44.99 mGy DLP: 914.22 mGycm COMPARISON: Prior study dated February 22, 2022. FINDINGS: Brain: Low density in the periventricular white matter suggests mild chronic small vessel ischemic changes. CSF Spaces: Moderate generalized cerebral atrophy Sinuses/Mastoids: Clear at visualized levels Bones: Unremarkable CT/Brain/Head without Contrast IMPRESSION: CHRONIC CHANGES. NO ACUTE FINDINGS. Reading Location: [id number]
--- NOTE | 2025-01-08 14:36 | EKG12_ITS ---
Test Reason : GEN ILLNESS Blood Pressure : */* mmHG Vent. Rate : 104 BPM Atrial Rate : 104 BPM P-R Int : 200 ms QRS Dur : 112 ms QT Int : 350 ms P-R-T Axes : 65 -49 79 degrees QTcB Int : 460 ms Sinus tachycardia Left axis deviation Cannot rule out Septal infarct , age undetermined Abnormal ECG Confirmed by Saurabh Her ([id number]), scientific editor KRISTOPHER STEVE ([id number]) on 01/12/2025 10:37:26 AM Referred By: Mark Garza Confirmed By: Saurabh Her
--- NOTE | 2025-01-08 14:38 | EX.ED.DYSGE1 ---
HPI History of Present Illness Chief Complaint: General Illness Narrative Narrative: Patient is a 69-year-old male with a past medical history of diabetes, hypertension, BPH, BMI of 45-49, VTE on Xarelto, chronic right foot ulcers follows with wound care who presents to the emergency department the chief complaint of fever, generalized weakness not feeling well. According to the patient last night he went to bed not feeling well and was shivering. According to the patient he woke up this morning felt very similar and they called his doctor they went to be evaluated and when he was there they were told that he had a fever of 103 and was sent here for further evaluation management. Patient denies recent contacts. He states he does have a headache but denies any falls or trauma to the head. [facility] Medical History Diabetic ulcer of foot associated with diabetes mellitus due to underlying condition, with fat layer exposed Charcot arthropathy Diabetic foot ulcer Diabetic foot ulcer associated with diabetes mellitus due to underlying condition Stage 3b chronic kidney disease (CKD) Onychomycosis History of deep vein thrombosis (DVT) of lower extremity Diabetic ulcer of toe VTE (venous thromboembolism) Dyslipidemia Diabetes mellitus type 2 with complications, uncontrolled Morbid obesity with BMI of 45.0-49.9, adult GRETCHEN treated with BiPAP Morbid obesity Former tobacco use BPH (benign prostatic hyperplasia) HTN (hypertension) Diabetes mellitus Home Medications ?Medication ?Instructions ?Recorded ?Last Taken ?Type atorvastatin 20 mg tablet 20 mg PO QHS cholesterol 08/27/15 02/21/22 History furosemide 40 mg tablet 80 mg PO DAILY diuretic 08/27/15 02/22/22 History rivaroxaban 20 mg tablet (Xarelto) 20 mg PO DINNER blood thinner 03/23/16 02/21/22 History doxazosin 4 mg tablet 4 mg PO QHS blood pressure 04/03/20 02/21/22 History insulin lispro 100 unit/mL 20 unit subcut BREAKFAST diabetes 02/23/22 02/22/22 History subcutaneous pen insulin lispro 100 unit/mL 20 unit subcut LUNCH diabetes 02/23/22 02/22/22 History subcutaneous pen gabapentin 600 mg tablet 600 mg PO TIDCM Nerve Pain 02/24/22 Unknown History doxycycline hyclate 100 mg capsule 100 mg PO BID #60 caps 04/07/22 Unknown Rx insulin glargine-yfgn 100 unit/mL 50 unit (0.5 mL) subcut QHS #0 mL 04/10/22 Unknown Rx (3 mL) subcutaneous pen insulin lispro 100 unit/mL 20 unit (0.2 mL) subcut DINNER #0 04/10/22 Unknown Rx subcutaneous pen (Humalog KwikPen mL (U-100) Insulin) metoprolol tartrate 25 mg tablet 75 mg (3 x 25 mg) PO BID blood 04/10/22 Unknown Rx pressure 30 days #180 tabs aspirin 81 mg capsule 81 mg PO DAILY 08/16/22 Unknown History calcium carbonate (Tums) mg PO BID PRN Heartburn 08/16/22 Unknown History dulaglutide 3 mg/0.5 mL 3 mg subcut QWEEK 08/16/22 Unknown History subcutaneous pen injector (Trulicity) hydrocodone-acetaminophen 5-325mg 1 tab PO Q8H PRN Pain 08/16/22 Unknown History 5mg-325mg tizanidine 2 mg tablet 4 mg PO TID PRN Back Pain 08/16/22 Unknown History zinc 50 mg capsule 50 mg PO DAILY 08/16/22 Unknown History nystatin 500,000 unit tablet 500,000 unit PO TID 14 days #42 10/04/22 Unknown Rx tabs nystatin 500,000 unit tablet 500,000 unit PO TID 14 days #42 10/19/22 Unknown Rx tabs losartan 100 mg tablet 100 mg PO DAILY 12/10/24 Unknown History Allergy/AdvReac Type Severity Reaction Status Date / Time Penicillins Allergy Unknown Hives Verified 01/08/25 14:25 erythromycin base AdvReac Nausea Verified 01/08/25 14:25 (Erythromycin Base) Family History Mother Diabetes Heart disease Coagulopathy Father Heart disease CVA (cerebral vascular accident) Parkinsons disease Surgical History History of pyloromyotomy History of total knee arthroplasty Hx of total knee replacement History of vascular surgery Status post creation of pericardial window Hx of laminectomy Social History household members: spouse Smoking Status: Former smoker how long ago did patient quit smoking: Quit 1994, smoked 1 ppd since age 15. alcohol intake: never substance use type: does not use ROS ROS ED ROS Narrative Constitutional: Complains of fever and chills noted above as well as headache denies dizziness Eyes: Denies change in vision double vision blurry vision Cardiovascular: Denies chest pain or palpitations Respiratory: Denies cough or wheezing shortness of breath Abdomen: Denies abdominal pain nausea vomit diarrhea : Denies urinary symptoms Neurological: Complains generalized weakness denies any new numbness or tingling Musculoskeletal: Denies back pain Skin: Complains of chronic foot wounds on the right EXAM Physical Exam Narrative Exam Narrative: General: Patient lying in bed rest comfortably did not appear in acute distress Head: Atraumatic, normocephalic Eyes: PERRL bilaterally, EOMI bilateral, no conjunctival injection noted Neck: Soft, supple, trachea midline Cardiovascular: Patient tachycardic with regular rhythm Respiratory: Clear to auscultation bilaterally Abdomen: Soft, nontender to palpation Extremities: Patient has chronic wound at the tip of the right great toe that is black in nature and they state that this has been like this for a while now and is not new, +4/5 strength noted in the bilateral upper and lower extremities Neurological: Patient following commands knew that he was at [facility] the year is 2024 NIH is 0 GCS 15 Skin: Chronic heel wound on the right side as well noted this is well-healing and has no evidence of infection at this point in time warm, dry, tact no rashes or lesions noted Const Vital Signs: 01/08/25 14:20 01/08/25 15:15 01/08/25 15:16 Temperature 98.1 F Temperature Source Oral Pulse Rate 105 H Respiratory Rate 22 H Respiratory Effort Normal Non-Labored Respiratory Pattern Normal Blood Pressure 157/89 H Blood Pressure Mean 111 Pulse Ox 95 Oxygen Delivery Method Room Air Room Air 01/08/25 16:20 01/08/25 17:06 Temperature Temperature Source Pulse Rate 105 H Respiratory Rate 18 Respiratory Effort Respiratory Pattern Blood Pressure 142/71 H Blood Pressure Mean 94 Pulse Ox 98 Oxygen Delivery Method Room Air Room Air MDM MDM MDM Narrative Medical decision making narrative: Patient is a 69-year-old male who presented to the emergency department chief complaint of generalized shakiness fever and not feeling well. On the differential diagnosis includes but not limited to pneumonia, osteomyelitis of his foot, UTI, viral illness. Once workup is obtained reviewed he will be reevaluated. Patient be given 30 cc/kg bolus of IV fluids based on ideal body weight as he has a BMI of greater than 30. This was ordered at 1440. Patient be given a gram of Tylenol for his headache. Patient CBC was significant for leukocytosis of 19,000, hemoglobin 15, platelet count was 160. Patient's INR was 1.3, PT of 16.8, sodium was normal at 138, potassium normal 4.4, creatinine elevated 1.57 he has underlying chronic kidney disease this is roughly around his baseline, lactic acid elevated 2.3, AST and ALT are 26 and 27 respectively. Patient's x-ray of his chest reviewed by myself by radiology showed bilateral perihilar opacities in the pattern favoring edema/pulmonary vascular congestion however could favor bilateral pneumonia in the setting of fever the patient does have a cough. He will be given Levaquin which was ordered at 5:46 PM. Patient EKG reviewed shows sinus tachycardia with a rate of 104 bpm. Patient's x-ray of his foot reviewed by myself by radiology which showed probable first digit wound which correlates clinically no significant osseous erosion. At this point in time given his persistent tachypnea tachycardia lactic acidosis leukocytosis and pneumonia will discuss case with hospitalist for admission. Discussed case with hospitalist Dr. Parish who accept patient for admission. Patient was agreeable this plan as well as for member bedside all question concerns answered. Lab Data Labs: Laboratory Results - last 24 hr 01/08/25 14:50 WBC 19.7 H RBC 4.93 Hgb 15.0 Hct 42.9 MCV 87.0 MCH 30.4 MCHC 35.0 RDW Std Deviation 39.6 RDW Coeff of Jak 12.6 Plt Count 160 MPV 9.5 Immature Gran % (Auto) 0.700 Neut % (Auto) 91.9 H Lymph % (Auto) 4.6 L Dawes % (Auto) 2.0 Eos % (Auto) 0.4 Baso % (Auto) 0.4 Absolute Neuts (auto) 18.1 H Absolute Lymphs (auto) 0.91 Nucleated RBC % 0 PT 16.8 H INR 1.3 APTT 26.7 Sodium 138 Potassium 4.4 Chloride 103 Carbon Dioxide 22.6 Anion Gap 12 BUN 24 H Creatinine 1.57 H Est GFR (MDRD) Non-Af 47 L BUN/Creatinine Ratio 15.5 Glucose 169 H Lactic Acid 2.3 H* Calcium 9.5 Total Bilirubin 0.74 AST 26 ALT 27 Alkaline Phosphatase 93 Total Protein 7.1 Albumin 3.8 Globulin 3.3 Albumin/Globulin Ratio 1.2 Radiography Diagnostic Testing: Clinical Impression(s) from Imaging Studies Brain CT 01/08/25 14:36 IMPRESSION: CHRONIC CHANGES. NO ACUTE FINDINGS. Reading Location: [id number] Chest X-Ray 01/08/25 15:24 IMPRESSION: Bilateral perihilar opacities in the pattern favoring edema/pulmonary vascular congestion. However, in the setting of fever, bilateral pneumonia can not be excluded. Reading Location: [id number] Foot X-Ray 01/08/25 15:24 IMPRESSION: Probable 1st digit wound. No significant osseous erosion. Reading Location: [id number] Discharge Plan Triage Chief Complaint: General Illness ED Provider: Mark Garza Dx/Rx/DC Orders Clinical Impression: Pneumonia, History of pulmonary embolism, Type 2 diabetes mellitus with foot ulcer, Stage 3b chronic kidney disease (CKD), Tachypnea, Acidosis, lactic Prescriptions: No Action furosemide 40 MG tablet 80 mg PO DAILY Patient Comments: diuretic atorvastatin 20 MG tablet 20 mg PO QHS Patient Comments: reduce cholesterol Xarelto 20 MG tablet 20 mg PO DINNER Patient Comments: BLOOD THINNER doxazosin 4 MG tablet 4 mg PO QHS insulin lispro 100 unit/mL Insulin Pen 20 unit SUBCUT BREAKFAST insulin lispro 100 unit/mL Insulin Pen 20 unit SUBCUT LUNCH gabapentin 600 MG tablet 600 mg PO TIDCM doxycycline hyclate 100 mg capsule 100 mg PO BID Qty: 60 1RF insulin glargine-yfgn 100 unit/mL (3 mL) Insulin Pen 50 unit subcut QHS Qty: 0 0RF insulin lispro [Humalog KwikPen Insulin] 100 unit/mL Insulin Pen 20 unit subcut DINNER Qty: 0 0RF metoprolol tartrate 25 MG tablet 75 mg PO BID 30 Days Qty: 180 0RF Patient Comments: reduce blood pressure hydrocodone-acetaminophen 5-325 mg Tablet 1 tab PO Q8H PRN (Reason: Pain) calcium carbonate [Tums] 200 mg calcium (500 mg) Tablet,Chewable PO BID PRN (Reason: Heartburn) zinc 50 mg Capsule 50 mg PO DAILY Trulicity 3 mg/0.5 mL Pen Injector 3 mg SUBCUT QWEEK aspirin 81 mg Capsule 81 mg PO DAILY tizanidine 2 mg tablet 4 mg PO TID PRN (Reason: Back Pain) nystatin 500,000 unit tablet 500,000 unit PO TID 14 Days Qty: 42 0RF nystatin 500,000 unit tablet 500,000 unit PO TID 14 Days Qty: 42 0RF losartan 100 mg tablet 100 mg PO DAILY Primary Care Provider: David Kate Referrals: David Kate MD [Primary Care Provider] - Print Language: [place] Disposition Disposition: Acute Care Hospital [facility]
[2025-01-08] MEDS: 0.9% Normal Saline (1000mL) 1,000 ML 999 ML IV ×3 (14:51→18:17)
[2025-01-08] MEDS: Acetaminophen 500 MG Tablet 1000 MG PO (14:51)
[2025-01-08 15:07] LABS: Absolute Lymphocyte Count 0.91 X10^3/uL (0.83-4.51); Absolute Neutrophil Count 18.1 X10^3/uL (2.0-7.7); Basophil# 0.07 X10^3/uL; Basophil% 0.4 % (0-1); Eosinophil# 0.08 X10^3/uL; Eosinophils% 0.4 % (0-5); Hematocrit 42.9 % (40-54); Lymphocyte # 0.91 X10^3/ul (0.83-4.51); Lymphocyte % 4.6 % (19-41); Mean Corpuscular Hgb 30.4 pg (27.0-32.0); Mean Platelet Vol. 9.5 fl (6.2-12.0); Monocyte# 0.39 X10^3/uL; NRBC Flagged by Analyzer 0 % (0-5); Neutrophil % 91.9 % (47-70); Platelet Count 160 K/mm3 (150-450); RBC Distribution Width CV 12.6 % (11.6-14.6); RBC Distribution Width SD 39.6 fl (35.1-43.9); Red Blood Count 4.93 M/mm3 (4.6-6.2); White Blood Count 19.7 K/mm3 (4.4-11.0)
[2025-01-08 15:23] LABS: International Normalized Ratio 1.3; Partial Thromboplast Time 26.7 Seconds (24.1-36.2); Prothrombin Time (Protime)PT. 16.8 SECONDS (11.7-14.9)
--- NOTE | 2025-01-08 15:24 | RAD_ITS ---
PROCEDURE: CHEST PA AND LATERAL 01/08/2025 REASON FOR EXAM: FEVER TECHNIQUE: Frontal and lateral views of the chest. COMPARISON: None. FINDINGS: Hardware: Prior sternotomy. Heart: The heart size is normal. Mediastinum: The mediastinal contour is unremarkable. Lungs: Bilateral perihilar opacities in the pattern favoring edema. Bones: The bones are unremarkable. RAD/Chest PA and Lateral IMPRESSION: Bilateral perihilar opacities in the pattern favoring edema/pulmonary vascular congestion. However, in the setting of fever, bilateral pneumonia can not be excluded. Reading Location: [place] [id number]
--- NOTE | 2025-01-08 15:24 | RAD_ITS ---
PROCEDURE: FOOT MIN 3 VIEWS 01/08/2025 REASON FOR EXAM: GREAT TOE WOUND, HEAL WOUND TECHNIQUE: 4 views of the right foot. COMPARISON: None. FINDINGS: Bones: No evidence of acute fracture or dislocation. No significant erosive change. Osseous demineralization. Calcaneal enthesophytes. Joints: Degenerative changes throughout the foot. Soft tissues: Soft tissue irregularity of the 1st digit which may represent a wound. Other: None. RAD/Foot min 3 Views IMPRESSION: Probable 1st digit wound. No significant osseous erosion. Reading Location: [place] [id number]
[2025-01-08 15:35] LABS: ALB/GLOB Ratio 1.2 RATIO (0.9-2.4); AST(SGOT) 26 U/L (<=37); Alanine Aminotransfer ALT/SGPT 27 U/L (<=46); Albumin, Serum 3.8 g/dL (3.4-4.8); Alkaline Phosphatase 93 U/L (40-129); Anion Gap 12 (5-15); BUN 24 mg/dL (4-19); BUN/Creat Ratio 15.5 RATIO (10-20); Calcium,Total 9.5 mg/dL (7.6-11.0); Carbon Dioxide 22.6 mmol/L (21.0-32.0); Chloride 103 mmol/L (98-108); Creatinine, Serum 1.57 mg/dL (0.70-1.20); EST Glomerular Filtration Rate 47 (>60); Globulin 3.3 g/dL (2.2-4.2); Glucose 169 mg/dL (70-99); Potassium 4.4 mmol/L (3.3-5.1); Protein, Total 7.1 g/dL (5.9-8.4); Sodium Level 138 mmol/L (133-145); Total Bilirubin 0.74 mg/dL (0.00-1.30)
[2025-01-08 15:42] LABS: Lactic Acid 2.3 mmol/L (0.0-2.0)
[2025-01-08] MEDS: Metoclopramide 10 MG/2 ML Vial IV (17:32)
[2025-01-08] MEDS: levoFLOXacin IV 750 MG/150 ML BAG 100 MG IV (18:12)
--- NOTE | 2025-01-08 18:41 | PCM.HP.STD ---
HPI - General General Date of Admission: 01/08/25 Date of Service: 01/08/25 Chief Complaint: Chills HPI Narrative TRINI MEJIAS, is a 69 M with past medical history of type 2 diabetes, obesity, diabetic foot infection, coronary artery disease, stage III chronic kidney disease, history of DVT on chronic anticoagulation, dyslipidemia, who presents to the ED concerns regarding high-grade fever that was noted during his physical therapy appointment today. He was told that his temperature was around 103 but on repeat evaluation in the ED was found to have 98 ?F temperature Per the , he has been having chills for the last 2 to 3 days with associated fatigue and overall malaise Has some associated cough without expectoration, no shortness of breath, no dyspnea on exertion, no PND/orthopnea Does not endorse any difficulty in urination/no dysuria symptoms, no constipation, overall stable health status At the time of presentation in the ED WBC 19.7, hemoglobin 15.0, MCV 87.0, platelet count 160, PT 16.8, sodium 138, potassium 3.4, BUN 24, creatinine 1.5, lactic acid 2.3, calcium 9.7, total bilirubin 0.7, AST 26, ALT 27, alkaline phosphatase 93, urinalysis had not been sent at the time of admission FOR[facility]LY [facility], [facility] Medical History Diabetic ulcer of foot associated with diabetes mellitus due to underlying condition, with fat layer exposed Charcot arthropathy Diabetic foot ulcer Diabetic foot ulcer associated with diabetes mellitus due to underlying condition Stage 3b chronic kidney disease (CKD) Onychomycosis History of deep vein thrombosis (DVT) of lower extremity Diabetic ulcer of toe VTE (venous thromboembolism) Dyslipidemia Diabetes mellitus type 2 with complications, uncontrolled Morbid obesity with BMI of 45.0-49.9, adult GRETCHEN treated with BiPAP Morbid obesity Former tobacco use BPH (benign prostatic hyperplasia) HTN (hypertension) Diabetes mellitus Home Medications ?Medication ?Instructions ?Recorded ?Last Taken ?Type atorvastatin 20 mg tablet 20 mg PO QHS cholesterol 08/27/15 02/21/22 History furosemide 40 mg tablet 80 mg PO DAILY diuretic 08/27/15 02/22/22 History rivaroxaban 20 mg tablet (Xarelto) 20 mg PO DINNER blood thinner 03/23/16 02/21/22 History doxazosin 4 mg tablet 4 mg PO QHS blood pressure 04/03/20 02/21/22 History insulin lispro 100 unit/mL 20 unit subcut BREAKFAST diabetes 02/23/22 02/22/22 History subcutaneous pen insulin lispro 100 unit/mL 20 unit subcut LUNCH diabetes 02/23/22 02/22/22 History subcutaneous pen gabapentin 600 mg tablet 600 mg PO TIDCM Nerve Pain 02/24/22 Unknown History doxycycline hyclate 100 mg capsule 100 mg PO BID infection #60 caps 04/07/22 Unknown Rx insulin glargine-yfgn 100 unit/mL 50 unit (0.5 mL) subcut QHS dm #0 04/10/22 Unknown Rx (3 mL) subcutaneous pen mL insulin lispro 100 unit/mL 20 unit (0.2 mL) subcut DINNER dm 04/10/22 Unknown Rx subcutaneous pen (Humalog KwikPen #0 mL (U-100) Insulin) aspirin 81 mg capsule 81 mg PO DAILY heart health 08/16/22 Unknown History calcium carbonate (Tums) 200 mg PO BID PRN Heartburn 08/16/22 Unknown History dulaglutide 3 mg/0.5 mL 3 mg subcut QWEEK dm 08/16/22 Unknown History subcutaneous pen injector (Trulicity) hydrocodone-acetaminophen 5-325mg 1 tab PO Q8H PRN Pain 08/16/22 Unknown History 5mg-325mg zinc 50 mg capsule 50 mg PO DAILY supplement 08/16/22 Unknown History losartan 100 mg tablet 100 mg PO DAILY bp 12/10/24 Unknown History metoprolol tartrate 75 mg tablet 75 mg PO BID bp 01/08/25 Unknown History tizanidine 4 mg tablet 4 mg PO TID PRN PRN low back pain 01/08/25 Unknown History Allergy/AdvReac Type Severity Reaction Status Date / Time Penicillins Allergy Unknown Hives Verified 01/08/25 14:25 erythromycin base AdvReac Nausea Verified 01/08/25 14:25 (Erythromycin Base) Family History Mother Diabetes Heart disease Coagulopathy Father Heart disease CVA (cerebral vascular accident) Parkinsons disease Surgical History History of pyloromyotomy History of total knee arthroplasty Hx of total knee replacement History of vascular surgery Status post creation of pericardial window Hx of laminectomy Social History household members: spouse Smoking Status: Former smoker how long ago did patient quit smoking: Quit 1994, smoked 1 ppd since age 15. alcohol intake: never substance use type: does not use ROS Review of Systems ROS Unobtainable: Denies due to encephalopathy, due to endotracheal tube, due to mental condition, due to mental status or other Constitutional Constitutional: Reports fatigue, malaise and weakness Eyes Eyes: Denies blurry vision, change in eye color, change in vision, discharge from eye(s), double vision, erythema, eye pain, loss of vision or other ENT HEENT: Denies abnormal hearing, dysphagia, ear pain, epistaxis, headache(s), hearing loss, nasal congestion, nasal discharge, post nasal drip, sinus pressure, sore throat or other Cardiovascular Cardiovascular: Denies chest pain, claudication, dyspnea on exertion, edema, lightheadedness, orthopnea, palpitations, paroxysmal nocturnal dyspnea, rapid heart rate, syncope or other Respiratory/Chest Respiratory/Chest: Reports cough; Denies dyspnea, excessive phlegm production, hemoptysis, productive cough, shortness of breath at rest, shortness of breath with exertion, wheezing or other Gastrointestinal Gastrointestinal: Denies abdominal pain, coffee ground emesis, constipation, diarrhea, dyspepsia, hematemesis, hematochezia, loose stools, melena, nausea, vomiting or other Genitourinary Genitourinary: Denies burning urination, difficulty urinating, dysuria, hematuria, nocturia, urinary frequency, urinary hesitancy, urinary incontinence, urinary urgency or other Musculoskeletal Musculoskeletal: Denies arthralgias, back pain, joint pain, joint stiffness, joint swelling, myalgias, neck pain or other Neurologic Neurologic: Denies abnormal gait, abnormal speech, confusion, disequilibrium, dizziness, focal weakness, headache(s), numbness, paresthesias, seizure-like activity, seizures, syncope, tingling, tremor(s) or other Psychiatric Psychiatric: Denies anxiety, depression, homicidal ideation, suicidal ideation or other Endocrine Endocrinology: Denies change in body appearance, cold intolerance, excessive sweating, heat intolerance, polydipsia, polyuria or other Hematologic/Lymphatic Hematologic/Lymphatic: Denies anemia, easy bleeding, easy bruising, lymphadenopathy or other Allergic/Immunologic Allergic/Immunologic: Denies rhinitis, hives, eczemia, asthma or other Vital Signs Vital Signs Vital Signs: 01/08/25 14:20 01/08/25 15:15 01/08/25 15:16 Temperature 98.1 F Temperature Source Oral Pulse Rate 105 H Respiratory Rate 22 H Respiratory Effort Normal Non-Labored Respiratory Pattern Normal Blood Pressure 157/89 H Blood Pressure Mean 111 Pulse Ox 95 Oxygen Delivery Method Room Air Room Air 01/08/25 16:20 01/08/25 17:06 01/08/25 18:00 Temperature 98.9 F Temperature Source Pulse Rate 105 H 112 H Respiratory Rate 18 20 H Respiratory Effort Respiratory Pattern Blood Pressure 142/71 H 143/82 H Blood Pressure Mean 94 102 Pulse Ox 98 93 Oxygen Delivery Method Room Air Room Air Weight Weight: 399 lb 4.114 oz Body Mass Index (BMI) 54.1 Physical Exam Const alert and oriented x3 HEENT normocephalic and head/scalp atraumatic Eyes PERRL Neck no lymphadenopathy Resp normal respiratory effort Resp Narrative: No added breath sounds heard Cardio regular rate and regular rhythm GI normal to inspection, nondistended, normoactive bowel sounds Extremity normal to inspection Extremity Narrative: Right heel ulcer noted, well-healing Neuro oriented x3 and CN's II-XII intact bilaterally Neuro Narrative: Decreased bilateral sensations in feet Psych affect normal Results Medical Records Data Attestation: I reviewed the patient's medical records Lab / Micro Data Attestation: I reviewed the patient's lab results. 01/08/25 14:50 01/08/25 14:50 Labs: Laboratory Results - last 24 hr 01/08/25 14:50: WBC 19.7 H, RBC 4.93, Hgb 15.0, Hct 42.9, MCV 87.0, MCH 30.4, MCHC 35.0, RDW Std Deviation 39.6, RDW Coeff of Jak 12.6, Plt Count 160, MPV 9.5, Immature Gran % (Auto) 0.700, Neut % (Auto) 91.9 H, Lymph % (Auto) 4.6 L, [place] % (Auto) 2.0, Eos % (Auto) 0.4, Baso % (Auto) 0.4, Absolute Neuts (auto) 18.1 H, Absolute Lymphs (auto) 0.91, Nucleated RBC % 0, PT 16.8 H, INR 1.3, APTT 26.7, Sodium 138, Potassium 4.4, Chloride 103, Carbon Dioxide 22.6, Anion Gap 12, BUN 24 H, Creatinine 1.57 H, Est GFR (MDRD) Non-Af 47 L, BUN/Creatinine Ratio 15.5, Glucose 169 H, Lactic Acid 2.3 H*, Calcium 9.5, Total Bilirubin 0.74, AST 26, ALT 27, Alkaline Phosphatase 93, Total Protein 7.1, Albumin 3.8, Globulin 3.3, Albumin/Globulin Ratio 1.2 Micro: Microbiology 01/08/25 15:52 Mucosa - Nose SARS-CoV-2, Influenza & RSV (PCR) - Final Imaging Radiology Impression Brain CT 01/08/25 14:36 IMPRESSION: CHRONIC CHANGES. NO ACUTE FINDINGS. Reading Location: [id number] Chest X-Ray 01/08/25 15:24 IMPRESSION: Bilateral perihilar opacities in the pattern favoring edema/pulmonary vascular congestion. However, in the setting of fever, bilateral pneumonia can not be excluded. Reading Location: [id number] Foot X-Ray 01/08/25 15:24 IMPRESSION: Probable 1st digit wound. No significant osseous erosion. Reading Location: [id number] Assessment & Plan Assessment/Plan (1) Pneumonia: PLAN: Plan 69-year-old male with past medical history of obesity, type 2 diabetes presents to the ED with concerns regarding ongoing chills for the last few days and was noted to have leukocytes along with elevated lactic acid and suspicious pulmonary opacities on chest x-ray # Suspected pneumonia - Started on IV levofloxacin for community-acquired pneumonia and prior penicillin allergy - Satting well on room air and no concerns regarding acute respiratory failure at this time - Admit to [facility] for further management - No features of sepsis at this time, blood pressure is well-controlled # Type 2 diabetes - Continue home insulin therapy - Insulin plus sliding scale - HbA1c - Nutrition consult for diabetes education #Chronic kidney disease - Creatinine baseline - Continue to monitor # Hypertension - Continue doxazosin, losartan # Diabetic neuropathy - Continue home medications close monitoring of blood pressure # Dyslipidemia - Continue atorvastatin # History of DVT - Will continue home Xarelto # Code - Full code
[2025-01-08 19:01] LABS: Reflex Lactate? Y
[2025-01-08 19:22] LABS: Bacteria 0 SEEN /hpf (None Seen); Mucous, Urine 0 SEEN /hpf (<or=2+); Red Blood Cells-Urine 0 SEEN /hpf (0-5); Squamous Epithelial Cells - UA 0 SEEN /hpf (0-5); White Blood Cells 0 SEEN /hpf (0-5)
[2025-01-08 19:26] LABS: Color, Urine Yellow (Yellow); Glucose, Dipstick Normal (Normal); Ketone-Dipstick Negative (Negative); Leukocyte Esterase-Dipstick Negative /ul (Negative); Nitrite-Dipstick Negative (Negative); Occult Blood-Urine Negative /ul (Negative); Protein-Dipstick 30 mg/dl (Negative); Specific Gravity, Urine 1.015 (1.002-1.030); Urine Bilirubin Dipstick Negative (Negative); Urine Clarity Clear (Clear); Urine Urobilinogen Normal (Normal)
[2025-01-08] MEDS: HYDROcodone Bitartrate/Apap 5/325 Tablet PO (20:26)
[2025-01-08 20:48] LABS: Lactic Acid 3.2 mmol/L (0.0-2.0)
[2025-01-08] MEDS: Doxycycline 100 MG CAPSULE PO (21:51)
[2025-01-08] MEDS: Atorvastatin Calcium 20 MG Tablet PO (21:51)
[2025-01-08] MEDS: Metoprolol Tartrate 25 MG Tablet 75 MG PO (23:15)
[2025-01-08] MEDS: Acetaminophen 500 MG Tablet PO (23:16)
[2025-01-08] MEDS: Insulin Glargine-YFGN 100 UNIT/ML Pen 50 UNIT SC (23:18)
[2025-01-08] MEDS: Insulin Lispro 100 UNIT/ML INSULN.PEN SC (23:20)
[2025-01-08 23:45] LABS: Bedside Glucose 206 mg/dL (74-106)
[2025-01-09] VITALS (12 sets, daily range): BP systolic 101–151; BP diastolic 53–86; PULSE 78–94; RESP 15–24; TEMP 37.1–37.8; O2SAT 95–98
[2025-01-09 05:27] LABS: Absolute Lymphocyte Count 0.65 X10^3/uL (0.83-4.51); Absolute Neutrophil Count 32.8 X10^3/uL (2.0-7.7); Basophil# 0.13 X10^3/uL; Basophil% 0.4 % (0-1); Hematocrit 39.6 % (40-54); Hemoglobin 13.6 g/dL (13.0-16.5); Lymphocyte # 0.65 X10^3/ul (0.83-4.51); Lymphocyte % 1.8 % (19-41); Mean Corp Hgb Conc 34.3 g/dL (32-36); Mean Corpuscular Hgb 30.3 pg (27.0-32.0); Mean Corpuscular Volume 88.2 fL (80-94); Mean Platelet Vol. 9.8 fl (6.2-12.0); Monocyte# 1.04 X10^3/uL; Monocyte% 2.9 % (0-10); NRBC Flagged by Analyzer 0 % (0-5); Neutrophil # 32.82 X10^3/uL (2.7-7.7); Neutrophil % 92.3 % (47-70); POSITIVE COUNT YES; POSITIVE DIFFERENTIAL YES; POSITIVE MORPHOLOGY YES; Platelet Count 150 K/mm3 (150-450); RBC Distribution Width CV 13.3 % (11.6-14.6); RBC Distribution Width SD 42.6 fl (35.1-43.9); Red Blood Count 4.49 M/mm3 (4.6-6.2)
[2025-01-09 05:47] LABS: Differential Indicated SCAN CRITERIA MET; White Blood Count 35.6 K/mm3 (4.4-11.0)
[2025-01-09 06:08] LABS: ALB/GLOB Ratio 1.1 RATIO (0.9-2.4); AST(SGOT) 31 U/L (<=37); Alanine Aminotransfer ALT/SGPT 27 U/L (<=46); Albumin, Serum 3.4 g/dL (3.4-4.8); Alkaline Phosphatase 73 U/L (40-129); Anion Gap 11 (5-15); BUN 26 mg/dL (4-19); BUN/Creat Ratio 14.9 RATIO (10-20); Bilirubin, Direct 0.52 mg/dL (0.00-0.30); Calcium,Total 8.6 mg/dL (7.6-11.0); Carbon Dioxide 19.8 mmol/L (21.0-32.0); Chloride 104 mmol/L (98-108); Creatinine, Serum 1.71 mg/dL (0.70-1.20); EST Glomerular Filtration Rate 43 (>60); Estimated Creatinine Clearance 66.75 ml/min (50-250); Globulin 3.1 g/dL (2.2-4.2); Glucose 215 mg/dL (70-99); Magnesium 1.6 mg/dL (1.5-2.2); Phosphorus 2.7 mg/dL (2.7-4.5); Potassium 4.9 mmol/L (3.3-5.1); Protein, Total 6.6 g/dL (5.9-8.4); Sodium Level 135 mmol/L (133-145); Total Bilirubin 1.01 mg/dL (0.00-1.30)
[2025-01-09 06:36] LABS: International Normalized Ratio 1.8; Prothrombin Time (Protime)PT. 21.1 SECONDS (11.7-14.9)
[2025-01-09] MEDS: Insulin Lispro 100 UNIT/ML INSULN.PEN SC ×3 (06:39→20:45)
[2025-01-09] MEDS: Acetaminophen 500 MG Tablet PO ×2 (06:42→15:11)
[2025-01-09 07:28] LABS: Bedside Glucose 199 mg/dL (74-106)
[2025-01-09] MEDS: Cefepime HCl 2 GM in 0.9% Normal Saline (100mL MB+) 100 ML IV (08:36)
[2025-01-09] MEDS: Zinc Sulfate 50 mg zinc (220 mg) ORAL capsule PO (08:39)
[2025-01-09] MEDS: Doxycycline 100 MG CAPSULE PO ×2 (08:39→20:45)
[2025-01-09] MEDS: Gabapentin 600 MG Tablet PO ×3 (08:39→16:53)
[2025-01-09] MEDS: Losartan Potassium 100 MG Tablet PO (08:39)
[2025-01-09] MEDS: Metoprolol Tartrate 25 MG Tablet 75 MG PO ×2 (08:40→20:45)
[2025-01-09] MEDS: Aspirin 81 MG TAB.CHEW PO (08:42)
[2025-01-09] MEDS: Insulin Lispro 100 UNIT/ML INSULN.PEN 20 UNIT SC ×2 (08:51→12:25)
--- NOTE | 2025-01-09 10:08 | PCM.CONS.GEN ---
Assessment & Plan Assessment/Plan (1) Sepsis: PLAN: sepsis with GBS bacteremia per pcr - suspect pneumonia vs infected R foot wound as source. Will check urine antigens, wound cx, BNP, and trop. Has h/o DVT, is on Xarelto. Cont doxy and will narrow cefepime to ceftriaxone. Denies any pacer or hardware in place. Will follow, thank you (2) Bacteremia: (3) Diabetic foot ulcer: QUALIFIERS: Diabetic foot ulcer location: heel Diabetes mellitus type: type 2 Laterality: right Non-pressure ulcer stage: with fat layer exposed Qualified Code(s): E11.621 - Type 2 diabetes mellitus with foot ulcer; L97.412 - Non-pressure chronic ulcer of right heel and midfoot with fat layer exposed HPI Consult Data Date of Consult: 01/09/25 HPI Narrative Reason for Consultation: bacteremia HPI Narrative: TRINI MEJIAS, is a 69 M with DM, CAD, CKD, R toe ulcer following at wound center, presented to ED 01/08 with two days of fever, chills, fatigue. Reports toe has been stable, no new redness or drainage. Having some dyspnea on exertion, dry cough. No chest pain. Came to ED, admitted on levaquin, changed to doxy and cefepime. Feeling about the same this AM. Full ROS performed and neg except as noted above. [facility] Medical History Diabetic ulcer of foot associated with diabetes mellitus due to underlying condition, with fat layer exposed Charcot arthropathy Diabetic foot ulcer Diabetic foot ulcer associated with diabetes mellitus due to underlying condition Stage 3b chronic kidney disease (CKD) Onychomycosis History of deep vein thrombosis (DVT) of lower extremity Diabetic ulcer of toe VTE (venous thromboembolism) Dyslipidemia Diabetes mellitus type 2 with complications, uncontrolled Morbid obesity with BMI of 45.0-49.9, adult GRETCHEN treated with BiPAP Morbid obesity Former tobacco use BPH (benign prostatic hyperplasia) HTN (hypertension) Diabetes mellitus Home Medications ?Medication ?Instructions ?Recorded ?Last Taken ?Type atorvastatin 20 mg tablet 20 mg PO QHS cholesterol 08/27/15 02/21/22 History furosemide 40 mg tablet 80 mg PO DAILY diuretic 08/27/15 02/22/22 History rivaroxaban 20 mg tablet (Xarelto) 20 mg PO DINNER blood thinner 03/23/16 02/21/22 History doxazosin 4 mg tablet 4 mg PO QHS blood pressure 04/03/20 02/21/22 History insulin lispro 100 unit/mL 20 unit subcut BREAKFAST diabetes 02/23/22 02/22/22 History subcutaneous pen insulin lispro 100 unit/mL 20 unit subcut LUNCH diabetes 02/23/22 02/22/22 History subcutaneous pen gabapentin 600 mg tablet 600 mg PO TIDCM Nerve Pain 02/24/22 Unknown History doxycycline hyclate 100 mg capsule 100 mg PO BID infection #60 caps 04/07/22 Unknown Rx insulin glargine-yfgn 100 unit/mL 50 unit (0.5 mL) subcut QHS dm #0 04/10/22 Unknown Rx (3 mL) subcutaneous pen mL insulin lispro 100 unit/mL 20 unit (0.2 mL) subcut DINNER dm 04/10/22 Unknown Rx subcutaneous pen (Humalog KwikPen #0 mL (U-100) Insulin) aspirin 81 mg capsule 81 mg PO DAILY heart health 08/16/22 Unknown History calcium carbonate (Tums) 200 mg PO BID PRN Heartburn 08/16/22 Unknown History dulaglutide 3 mg/0.5 mL 3 mg subcut QWEEK dm 08/16/22 Unknown History subcutaneous pen injector (Trulicity) hydrocodone-acetaminophen 5-325mg 1 tab PO Q8H PRN Pain 08/16/22 Unknown History 5mg-325mg zinc 50 mg capsule 50 mg PO DAILY supplement 08/16/22 Unknown History losartan 100 mg tablet 100 mg PO DAILY bp 12/10/24 Unknown History metoprolol tartrate 75 mg tablet 75 mg PO BID bp 01/08/25 Unknown History tizanidine 4 mg tablet 4 mg PO TID PRN PRN low back pain 01/08/25 Unknown History Allergy/AdvReac Type Severity Reaction Status Date / Time Penicillins Allergy Unknown Hives Verified 01/08/25 14:25 erythromycin base AdvReac Nausea Verified 01/08/25 14:25 (Erythromycin Base) Family History Mother Diabetes Heart disease Coagulopathy Father Heart disease CVA (cerebral vascular accident) Parkinsons disease Surgical History History of pyloromyotomy History of total knee arthroplasty Hx of total knee replacement History of vascular surgery Status post creation of pericardial window Hx of laminectomy Social History household members: spouse Smoking Status: Former smoker how long ago did patient quit smoking: Quit 1994, smoked 1 ppd since age 15. alcohol intake: never substance use type: does not use Physical Exam Const alert, oriented x3 and no apparent distress Constitutional Narrative: dyspneic General Appearance: cooperative HEENT normocephalic and head/scalp atraumatic Eyes PERRL and EOMs intact bilaterally Neck supple and No nodes Resp Resp Narrative: rales/rhonchi in bases Effort and Inspection: uses accessory muscles Cardio regular rate and regular rhythm GI soft to palpation, non-tender and non-distended Extremity General Extremity: edema Skin Skin Narrative: R heel wound some redness Neuro CN's II-XII intact bilaterally Lab / Micro Data Attestation: I reviewed the patient's lab results. 01/09/25 04:56 01/09/25 04:56 Labs: Laboratory Results - last 24 hr 01/08/25 14:50: WBC 19.7 H, RBC 4.93, Hgb 15.0, Hct 42.9, MCV 87.0, MCH 30.4, MCHC 35.0, RDW Std Deviation 39.6, RDW Coeff of Jak 12.6, Plt Count 160, MPV 9.5, Immature Gran % (Auto) 0.700, Neut % (Auto) 91.9 H, Lymph % (Auto) 4.6 L, [place] % (Auto) 2.0, Eos % (Auto) 0.4, Baso % (Auto) 0.4, Absolute Neuts (auto) 18.1 H, Absolute Lymphs (auto) 0.91, Nucleated RBC % 0, PT 16.8 H, INR 1.3, APTT 26.7, Sodium 138, Potassium 4.4, Chloride 103, Carbon Dioxide 22.6, Anion Gap 12, BUN 24 H, Creatinine 1.57 H, Est GFR (MDRD) Non-Af 47 L, BUN/Creatinine Ratio 15.5, Glucose 169 H, Lactic Acid 2.3 H*, Calcium 9.5, Total Bilirubin 0.74, AST 26, ALT 27, Alkaline Phosphatase 93, Total Protein 7.1, Albumin 3.8, Globulin 3.3, Albumin/Globulin Ratio 1.2 01/08/25 19:15: Urine Color Yellow, Urine Clarity Clear, Urine pH 5.0, Ur Specific [place] 1.015, Urine Protein 30 H, Urine Glucose (UA) Normal, Urine Ketones Negative, Urine Occult Blood Negative, Urine Nitrite Negative, Urine Bilirubin Negative, Urine Urobilinogen Normal, Ur Leukocyte Esterase Negative, Urine RBC 0 SEEN, Urine WBC 0 SEEN, Ur Squamous Epith Cells 0 SEEN, Urine Bacteria 0 SEEN, Urine Mucus 0 SEEN 01/08/25 19:50: Lactic Acid 3.2 H* 01/08/25 23:04: POC Glucose 206 H 01/09/25 04:56: WBC 35.6 H*, RBC 4.49 L, Hgb 13.6, Hct 39.6 L, MCV 88.2, MCH 30.3, MCHC 34.3, RDW Std Deviation 42.6, RDW Coeff of Jak 13.3, Plt Count 150, MPV 9.8, Immature Gran % (Auto) 2.600 H, Neut % (Auto) 92.3 H, Lymph % (Auto) 1.8 L, [place] % (Auto) 2.9, Eos % (Auto) 0.0, Baso % (Auto) 0.4, Absolute Neuts (auto) 32.8 H, Absolute Lymphs (auto) 0.65 L, Nucleated RBC % 0, PT 21.1 H, INR 1.8, Sodium 135, Potassium 4.9, Chloride 104, Carbon Dioxide 19.8 L, Anion Gap 11, BUN 26 H, Creatinine 1.71 H, Estim Creat Clear Calc 66.75, Est GFR (MDRD) Non-Af 43 L, BUN/Creatinine Ratio 14.9, Glucose 215 H, Calcium 8.6, Phosphorus 2.7, Magnesium 1.6, Total Bilirubin 1.01, Direct Bilirubin 0.52 H, AST 31, ALT 27, Alkaline Phosphatase 73, Total Protein 6.6, Albumin 3.4, Globulin 3.1, Albumin/Globulin Ratio 1.1, TSH 3.600 01/09/25 06:36: POC Glucose 199 H Micro: Microbiology 01/08/25 14:50 Blood Culture (Wb) - Anticubital Left Bacteria Detection (PCR) - Final Streptococcus agalactiae (B) 01/08/25 14:50 Blood Culture (Wb) - Anticubital Left Blood Culture - Preliminary 01/08/25 15:52 Blood Culture (Wb) - Venous Blood Culture - Preliminary 01/09/25 00:00 Mucosa - Nasopharyngeal Respiratory Panel (PCR) - Final 01/08/25 15:52 Mucosa - Nose SARS-CoV-2, Influenza & RSV (PCR) - Final Imaging Radiology Impression Brain CT 01/08/25 14:36 IMPRESSION: CHRONIC CHANGES. NO ACUTE FINDINGS. Reading Location: [facility] Chest X-Ray 01/08/25 15:24 IMPRESSION: Bilateral perihilar opacities in the pattern favoring edema/pulmonary vascular congestion. However, in the setting of fever, bilateral pneumonia can not be excluded. Reading Location: [place] [id number] Foot X-Ray 01/08/25 15:24 IMPRESSION: Probable 1st digit wound. No significant osseous erosion. Reading Location: [place] [id number]
--- NOTE | 2025-01-09 10:09 | WOUNDNOTE ---
wound photo: right great toe
--- NOTE | 2025-01-09 10:09 | WOUNDNOTE ---
wound photo: right lateral heel
[2025-01-09] MEDS: Ceftriaxone 2 GM in 0.9% Normal Saline (50mL MB+) 50 ML IV (11:08)
--- NOTE | 2025-01-09 11:16 | NURSING ---
called and was given an update on how is doing.
[2025-01-09 11:33] LABS: Pro- Brain NATRIURETIC PEPTIDE 4978 pg/mL (<=900)
--- NOTE | 2025-01-09 11:50 | CASEMGMT ---
ALLY LAUGHLIN Assessment: Face to Face with pt for initial transition planning/care coordination assessment. RN TRUMAN introduced self and role at [facility], pt voices understanding and consents to assessment. Pt is Alert but having difficulty recalling answers at this time. Spoke with pt nurse who is aware. TC to pt to confirm assessment information. Care providers, pharmacy, and demographics verified/updated. Admitting Dx: pna Strata Score: 2 PCP:[facility] Specialists:C Russ; Basali, pain mgmt; endo- could not recall name [facility]: yes LNOK: Shabana Spears, Living Arrangements: Pt lives with in a single story home with 5 steps to enter with a rail. Pt is I in ADLs and performs IADLs. Pt denies concerns at home. Transportation: Pt drives self and denies concerns with transportation. DME:O2 concentrator from [facility] before they went out of business, BGM with sufficient strips and lancets, insulin with sufficient supply and needles, walker, brace for non wt bearing, bipap HHC/SNF: Pt has had HHC but cannot recall the name of the agency, denies SNF stays. Pt states no concerns with going home at time of dc. Pt has wounds to feet. Pt states she dresses them on days pt does not go to [facility] with magalis, adaptic and wrap. She states pt is not to bear wt on heel and he has a brace that she will bring in. Pt states no further concerns/needs. CM to follow. Advised pt to ask CM if any further questions/concerns/needs arise, voices understanding. Pt Goal: Home Plan: TBD pending course of hospitalization Barbara CANALES CM
[2025-01-09 12:42] LABS: Bedside Glucose 238 mg/dL (74-106)
[2025-01-09 12:59] LABS: Troponin T High Sensitivity 24 ng/L (<=22)
--- NOTE | 2025-01-09 14:00 | PN_ITS ---
Subjective Subjective Patient seen and examined. He was alert and communicative but confused. He thought he was in [place] in a [facility] facility. He did not know the year and the month. He denied any coughing, fever or chills, chest pain or any other symptoms. He does have a chronic right foot ulcer for which he follows with podiatry. Review of systems within the limits of what he could answer were otherwise negative. Objective Data Objective Data Vital Signs: Vital Signs Temp Pulse Resp BP Pulse Ox O2 Del Method 99.4 F H 80 21 H 119/54 L 96 Room Air 01/09/25 08:00 01/09/25 11:00 01/09/25 08:00 01/09/25 08:00 01/09/25 07:03 01/09/25 09:40 Oxygen Delivery Method Room Air Weight: 390 lb 7.018 oz Body Mass Index (BMI) 52.9 Intake & Output: Intake and Output for Last 24 Hours 01/07/25 01/08/25 01/09/25 23:59 23:59 23:59 Intake Total 3150 / 3550 550 / 550 Output Total 100 / 400 650 / 650 Balance 3050 / 3150 -100 / -100 Lab / Micro Data 01/09/25 04:56 01/09/25 04:56 Labs: Laboratory Results - last 24 hr 01/08/25 14:50: WBC 19.7 H, RBC 4.93, Hgb 15.0, Hct 42.9, MCV 87.0, MCH 30.4, MCHC 35.0, RDW Std Deviation 39.6, RDW Coeff of Jak 12.6, Plt Count 160, MPV 9.5, Immature Gran % (Auto) 0.700, Neut % (Auto) 91.9 H, Lymph % (Auto) 4.6 L, Rice % (Auto) 2.0, Eos % (Auto) 0.4, Baso % (Auto) 0.4, Absolute Neuts (auto) 18.1 H, Absolute Lymphs (auto) 0.91, Nucleated RBC % 0, PT 16.8 H, INR 1.3, APTT 26.7, Sodium 138, Potassium 4.4, Chloride 103, Carbon Dioxide 22.6, Anion Gap 12, BUN 24 H, Creatinine 1.57 H, Est GFR (MDRD) Non-Af 47 L, BUN/Creatinine Ratio 15.5, Glucose 169 H, Lactic Acid 2.3 H*, Calcium 9.5, Total Bilirubin 0.74, AST 26, ALT 27, Alkaline Phosphatase 93, Total Protein 7.1, Albumin 3.8, Globulin 3.3, Albumin/Globulin Ratio 1.2 01/08/25 19:15: Urine Color Yellow, Urine Clarity Clear, Urine pH 5.0, Ur Specific [place] 1.015, Urine Protein 30 H, Urine Glucose (UA) Normal, Urine Ketones Negative, Urine Occult Blood Negative, Urine Nitrite Negative, Urine Bilirubin Negative, Urine Urobilinogen Normal, Ur Leukocyte Esterase Negative, Urine RBC 0 SEEN, Urine WBC 0 SEEN, Ur Squamous Epith Cells 0 SEEN, Urine Bacteria 0 SEEN, Urine Mucus 0 SEEN 01/08/25 19:50: Lactic Acid 3.2 H* 01/08/25 23:04: POC Glucose 206 H 01/09/25 04:56: WBC 35.6 H*, RBC 4.49 L, Hgb 13.6, Hct 39.6 L, MCV 88.2, MCH 30.3, MCHC 34.3, RDW Std Deviation 42.6, RDW Coeff of Jak 13.3, Plt Count 150, MPV 9.8, Immature Gran % (Auto) 2.600 H, Neut % (Auto) 92.3 H, Lymph % (Auto) 1.8 L, Rice % (Auto) 2.9, Eos % (Auto) 0.0, Baso % (Auto) 0.4, Absolute Neuts (auto) 32.8 H, Absolute Lymphs (auto) 0.65 L, Nucleated RBC % 0, Diff Path Review December, PT 21.1 H, INR 1.8, Sodium 135, Potassium 4.9, Chloride 104, C arbon Dioxide 19.8 L, Anion Gap 11, BUN 26 H, Creatinine 1.71 H, Estim Creat Clear Calc 66.75, Est GFR (MDRD) Non-Af 43 L, BUN/Creatinine Ratio 14.9, Glucose 215 H, Calcium 8.6, Phosphorus 2.7, Magnesium 1.6, Total Bilirubin 1.01, Direct Bilirubin 0.52 H, AST 31, ALT 27, Alkaline Phosphatase 73, NT pro BNP II 4978 H, Total Protein 6.6, Albumin 3.4, Globulin 3.1, Albumin/Globulin Ratio 1.1, TSH 3.600 01/09/25 06:36: POC Glucose 199 H 01/09/25 12:05: Troponin T High Sens 24 H 01/09/25 12:24: POC Glucose 238 H Micro: Microbiology 01/08/25 15:52 Blood Culture (Wb) - Venous Blood Culture - Preliminary 01/08/25 14:50 Blood Culture (Wb) - Anticubital Left Bacteria Detection (PCR) - Final Streptococcus agalactiae (B) 01/08/25 14:50 Blood Culture (Wb) - Anticubital Left Blood Culture - Preliminary 01/09/25 00:00 Mucosa - Nasopharyngeal Respiratory Panel (PCR) - Final 01/08/25 15:52 Mucosa - Nose SARS-CoV-2, Influenza & RSV (PCR) - Final Radiography Diagnostic Testing: Radiology Impression Brain CT 01/08/25 14:36 IMPRESSION: CHRONIC CHANGES. NO ACUTE FINDINGS. Reading Location: [id number] Chest X-Ray 01/08/25 15:24 IMPRESSION: Bilateral perihilar opacities in the pattern favoring edema/pulmonary vascular congestion. However, in the setting of fever, bilateral pneumonia can not be excluded. Reading Location: [place] [address] Foot X-Ray 01/08/25 15:24 IMPRESSION: Probable 1st digit wound. No significant osseous erosion. Reading Location: [place] [address] Physical Exam Const alert Constitutional Narrative: class III obesity Orientation / Consciousness: confused HEENT normocephalic, head/scalp atraumatic and moist oral mucous membranes Eyes EOMs intact bilaterally Neck supple and no JVD Lymph Lymphatic: no lymphedema noted Resp Resp Narrative: mildly diminished breath sounds bibasally, no wheezes. Few crackles. On room air. Cardio regular rate, regular rhythm, S1 normal heart sound, S2 normal heart sound and no murmurs GI soft to palpation and non-tender GI Narrative: obese abdomen Extremity Extremity Narrative: right foot wrapped in bandage. NO erythema, swelling or tenderness of the right knee. Skin Skin Narrative: as under extremities Neuro no focal motor deficits and no sensory deficits noted Motor Exam: general weakness Psych cooperative and affect normal Psych Narrative: confused Assessment & Plan Assessment/Plan (1) Bacteremia: (2) Sepsis: (3) Pneumonia: PLAN: Plan #Community acquired pneumonia * Patient started on IV levofloxacin on admission. Will broaden to IV cefepime as his white cell count is trended up to 35.6 today. * Blood cultures also positive for gram-positive cocci in chains. Speciation is pending. * ID consulted. Breathing treatment with bronchodilators. Titrate oxygen to maintain saturation above 90%. * Antibiotics narrowed down to ceftriaxone and doxycycline per ID * #Gram-positive bacteremia * Is known to me that patient's daughter came in later today and said that the last time he was the sick he had any infection. Will therefore get knee x-ray to evaluate. * ID consulted and antibiotics narrowed down as stated above to doxycycline and ceftriaxone. * #Type 2 diabetes mellitus: On Lantus. Insulin sliding scale. Accu-Cheks ACHS. #Probable acute on chronic exacerbation of heart failure: * proBNP elevated over 4000. He does have known heart failure. * Lasix was held on admission. Home diuresed with IV Lasix 40 mg daily due to kidney function * Monitor intake and output. Fluid restriction to 1500 cc daily. # Hypertension: On doxazosin and losartan. IV hydralazine as needed #CKD stage III: * Cr today is 1.71. * Baseline Creatinine is 1.3-1.4. * Creatinine has been as high as 1.62 even around 2 in the past. * will monitor closely for now * #Type 2 diabetes mellitus with neuropathy: On insulin sliding scale. Checks ACHS. 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 Charges/Coding Visit Charges Inpatient E&M: 67738 Subs Hosp L2
--- NOTE | 2025-01-09 14:35 | RAD_ITS ---
EXAM: XR Left Knee Complete, 4 or More Views CLINICAL INDICATION: SUSPECTED LEFT KNEE INFECTION TECHNIQUE: Four or more views of the left knee. COMPARISON: No relevant prior studies available. FINDINGS: BONES/JOINTS: Total knee replacement. Intact hardware. Anatomic position. No obvious signs of osteomyelitis or infected hardware. If indicated, this can be further evaluated with three-phase bone scan. No acute fracture. No dislocation. SOFT TISSUES: Unremarkable. RAD/Knee 4 or More Views IMPRESSION: No obvious signs of osteomyelitis or infected hardware. If indicated, this can be further evaluated with three-phase bone scan. Reading [facility]
[2025-01-09] MEDS: Juven (unflavored) Packet 1 PACKET PO (16:53)
[2025-01-09] MEDS: Rivaroxaban 20 MG Tablet PO (16:53)
[2025-01-09 17:06] LABS: Bedside Glucose 141 mg/dL (74-106)
[2025-01-09 17:21] LABS: Troponin T High Sens 2 HR 22 ng/L (<=22)
[2025-01-09 20:39] LABS: Troponin T High Sens 4 HR 20 ng/L (<=22)
[2025-01-09] MEDS: Doxazosin 4 MG Tablet PO (20:45)
[2025-01-09] MEDS: Atorvastatin Calcium 20 MG Tablet PO (20:46)
[2025-01-09] MEDS: Insulin Glargine-YFGN 100 UNIT/ML Pen 50 UNIT SC (20:46)
[2025-01-09] MEDS: HYDROcodone Bitartrate/Apap 5/325 Tablet PO (21:01)
[2025-01-09 22:49] LABS: Bedside Glucose 200 mg/dL (74-106)
[2025-01-10] VITALS (18 sets, daily range): BP systolic 127–183; BP diastolic 71–81; PULSE 66–92; RESP 18–24; TEMP 36.1–37.3; O2SAT 93–96
[2025-01-10] MEDS: Nystatin Powder 15gm Bottle 1 APPLIC TOPICAL ×3 (00:21→21:02)
[2025-01-10] MEDS: Menthol/Lanolin/Calamine/Znox 113 GM Tube 1 APPLIC TOPICAL ×3 (00:21→21:02)
[2025-01-10 06:37] LABS: Absolute Lymphocyte Count 1.09 X10^3/uL (0.83-4.51); Absolute Neutrophil Count 17.5 X10^3/uL (2.0-7.7); Basophil# 0.06 X10^3/uL; Basophil% 0.3 % (0-1); Eosinophil# 0.09 X10^3/uL; Eosinophils% 0.5 % (0-5); Hematocrit 40.1 % (40-54); Hemoglobin 13.5 g/dL (13.0-16.5); Lymphocyte # 1.09 X10^3/ul (0.83-4.51); Lymphocyte % 5.5 % (19-41); Mean Corp Hgb Conc 33.7 g/dL (32-36); Mean Corpuscular Hgb 30.6 pg (27.0-32.0); Mean Corpuscular Volume 90.9 fL (80-94); Mean Platelet Vol. 10.1 fl (6.2-12.0); Monocyte# 0.97 X10^3/uL; Monocyte% 4.9 % (0-10); NRBC Flagged by Analyzer 0 % (0-5); Neutrophil % 87.9 % (47-70); Platelet Count 122 K/mm3 (150-450); RBC Distribution Width CV 13.4 % (11.6-14.6); Red Blood Count 4.41 M/mm3 (4.6-6.2); White Blood Count 19.9 K/mm3 (4.4-11.0)
[2025-01-10] MEDS: HYDROcodone Bitartrate/Apap 5/325 Tablet PO (06:47)
[2025-01-10] MEDS: Acetaminophen 500 MG Tablet PO ×2 (06:47→20:10)
[2025-01-10 08:01] LABS: Anion Gap 10 (5-15); BUN 24 mg/dL (4-19); BUN/Creat Ratio 17.2 RATIO (10-20); Calcium,Total 8.8 mg/dL (7.6-11.0); Carbon Dioxide 21.8 mmol/L (21.0-32.0); Chloride 103 mmol/L (98-108); Creatinine, Serum 1.41 mg/dL (0.70-1.20); EST Glomerular Filtration Rate 54 (>60); Estimated Creatinine Clearance 80.95 ml/min (50-250); Glucose 188 mg/dL (70-99); Potassium 4.8 mmol/L (3.3-5.1); Sodium Level 135 mmol/L (133-145)
[2025-01-10] MEDS: Insulin Lispro 100 UNIT/ML INSULN.PEN 20 UNIT SC ×3 (09:08→16:57)
[2025-01-10] MEDS: Aspirin 81 MG TAB.CHEW PO (09:09)
[2025-01-10] MEDS: Insulin Lispro 100 UNIT/ML INSULN.PEN SC ×4 (09:09→21:00)
[2025-01-10] MEDS: Juven (unflavored) Packet 1 PACKET PO ×2 (09:09→16:59)
[2025-01-10] MEDS: Metoprolol Tartrate 25 MG Tablet 75 MG PO ×2 (09:10→20:10)
[2025-01-10] MEDS: Losartan Potassium 100 MG Tablet PO (09:10)
[2025-01-10] MEDS: Doxycycline 100 MG CAPSULE PO ×2 (09:10→20:09)
[2025-01-10] MEDS: Zinc Sulfate 50 mg zinc (220 mg) ORAL capsule PO (09:11)
[2025-01-10] MEDS: Gabapentin 600 MG Tablet PO ×3 (09:13→17:01)
[2025-01-10] MEDS: Ceftriaxone 2 GM in 0.9% Normal Saline (50mL MB+) 50 ML IV (09:13)
--- NOTE | 2025-01-10 10:21 | PN.HOSP_ITS ---
Reason for Visit Reason for Visit: Diagnoses Sepsis, unspecified organism (01/08/25) Type 2 diabetes mellitus with foot ulcer (01/08/25) Pneumonia, unspecified organism (01/08/25) Non-pressure chronic ulcer of right heel and midfoot with fat layer exposed (01/08/25) Bacteremia (01/08/25) Objective Data Objective Data Vital Signs: Vital Signs Temp Pulse Resp BP Pulse Ox O2 Del Method O2 Flow Rate 97.3 F L 86 18 127/75 H 94 Room Air 2 01/10/25 09:02 01/10/25 09:10 01/10/25 09:02 01/10/25 09:02 01/10/25 09:02 01/10/25 09:02 01/10/25 09:17 Oxygen Flow Rate (L/min) 2 Oxygen Delivery Method Room Air Weight: 390 lb 7.018 oz Body Mass Index (BMI) 52.9 Intake & Output: Intake and Output for Last 24 Hours 01/08/25 01/09/25 01/10/25 23:59 23:59 23:59 Intake Total 3150 / 3550 550 / 550 Output Total 100 / 400 1050 / 1050 650 / 650 Balance 3050 / 3150 -500 / -500 -650 / -650 Lab / Micro Data 01/10/25 05:25 01/10/25 05:25 Labs: Laboratory Results - last 24 hr 01/09/25 04:56: WBC 35.6 H*, RBC 4.49 L, Hgb 13.6, Hct 39.6 L, MCV 88.2, MCH 30.3, MCHC 34.3, RDW Std Deviation 42.6, RDW Coeff of Jak 13.3, Plt Count 150, MPV 9.8, Immature Gran % (Auto) 2.600 H, Neut % (Auto) 92.3 H, Lymph % (Auto) 1.8 L, [place] % (Auto) 2.9, Eos % (Auto) 0.0, Baso % (Auto) 0.4, Absolute Neuts (auto) 32.8 H, Absolute Lymphs (auto) 0.65 L, Nucleated RBC % 0, Diff Path Review December foll, NT pro BNP II 4978 H 01/09/25 12:05: Troponin T High Sens 24 H 01/09/25 12:24: POC Glucose 238 H 01/09/25 15:49: Troponin T Hi Sens 2 Hr 22 01/09/25 16:38: POC Glucose 141 H 01/09/25 18:50: Troponin T Hi Sens 4Hr 20 01/09/25 20:34: POC Glucose 200 H 01/10/25 05:25: WBC 19.9 H, RBC 4.41 L, Hgb 13.5, Hct 40.1, MCV 90.9, MCH 30.6, MCHC 33.7, RDW Std Deviation 45.0 H, RDW Coeff of Jak 13.4, Plt Count 122 L, MPV 10.1, Immature Gran % (Auto) 0.900, Neut % (Auto) 87.9 H, Lymph % (Auto) 5.5 L, [place] % (Auto) 4.9, Eos % (Auto) 0.5, Baso % (Auto) 0.3, Absolute Neuts (auto) 17.5 H, Absolute Lymphs (auto) 1.09, Nucleated RBC % 0, Sodium 135, Potassium 4.8, Chloride 103, Carbon Dioxide 21.8, Anion Gap 10, BUN 24 H, Creatinine 1.41 H, Estim Creat Clear Calc 80.95, Est GFR (MDRD) Non-Af 54 L, BUN/Creatinine Ratio 17.2, Glucose 188 H, Calcium 8.8 Micro: Microbiology 01/08/25 15:52 Blood Culture (Wb) - Anticubital Left Blood Culture - Preliminary Beta streptococcus 01/08/25 14:50 Blood Culture (Wb) - Anticubital Left Bacteria Detection (PCR) - Final Streptococcus agalactiae (B) 01/08/25 14:50 Blood Culture (Wb) - Anticubital Left Blood Culture - Preliminary Streptococcus group B 01/09/25 13:15 Urine Catheter - Catheter Legionella Antigen - Final 01/09/25 13:15 Urine, Random Streptococcus pneumoniae Antigen (M - Final 01/09/25 00:00 Mucosa - Nasopharyngeal Respiratory Panel (PCR) - Final 01/08/25 15:52 Mucosa - Nose SARS-CoV-2, Influenza & RSV (PCR) - Final Radiography Diagnostic Testing: Radiology Impression Knee X-Ray 01/09/25 14:35 IMPRESSION: No obvious signs of osteomyelitis or infected hardware. If indicated, this can be further evaluated with three-phase bone scan. Reading Location: [facility] Physical Exam Narrative Seen and examined. Patient has severe arthritis and difficulty moving about. Has group B strep bacteremia. Physical exam General: Alert, Oriented x3, Cooperative. BMI 53.0 kg/m? morbid obesity HEENT: Atraumatic, PERRLA, EOMI, Normocephalic. Oral: No Gingival or Mucosal Lesions/ Ulcerations Neck: Supple, No JVD, Negative Carotid Bruits Chest wall/Lungs: Air entry diminished in bilateral lung bases. No crepitation/rhonchi Cardiovascular: Regular rate and rhythm, Normal S1,S2, No M/G/R Abdomen: Bowel Sounds Present, Soft, Non Tender, Non-Distended : No dysuria. No renal angle tenderness. No suprapubic tenderness. Extremities: No edema, Capillary Refill Less than 3 Seconds Skin: No rashes, No breakdown Musculoskeletal: No Tenderness to Palpation of Joints or Extremities. ROM limited at knees joints Neurological: Cranial nerves II-XII grossly intact, DTR 2+/4. No acute focal neurological deficit. Psych/Mental Status: Normal Affect, Appropriate. Assessment & Plan Assessment/Plan (1) Bacteremia: (2) Sepsis: (3) Pneumonia: PLAN: Plan #Community acquired pneumonia * Patient started on IV levofloxacin on admission. Will broaden to IV cefepime as his white cell count is trended up to 35.6 today. * Blood cultures also positive for gram-positive cocci in chains. Speciation is pending. * ID consulted. Breathing treatment with bronchodilators. Titrate oxygen to maintain saturation above 90%. * Antibiotics narrowed down to ceftriaxone and doxycycline per ID #Gram-positive bacteremia * Is known to me that patient's daughter came in later today and said that the last time he was the sick he had any infection. Will therefore get knee x-ray to evaluate. * ID consulted and antibiotics narrowed down as stated above to doxycycline and ceftriaxone. * #Type 2 diabetes mellitus: On Lantus. Insulin sliding scale. Accu-Cheks ACHS. #Probable acute on chronic exacerbation of heart failure: * proBNP elevated over 4000. He does have known heart failure. * Lasix was held on admission. Home diuresed with IV Lasix 40 mg daily due to kidney function * Monitor intake and output. Fluid restriction to 1500 cc daily. # Hypertension: On doxazosin and losartan. IV hydralazine as needed #CKD stage III: * Cr today is 1.71. * Baseline Creatinine is 1.3-1.4. * Creatinine has been as high as 1.62 even around 2 in the past. * will monitor closely for now * #Type 2 diabetes mellitus with neuropathy: On insulin sliding scale. Checks ACHS. Diabetes foot ulcer with GBS bacteremia. Has infected right foot wound or pneumonia as source. Urinary antigens are negative. Wound culture pending. On doxycycline and ceftriaxone #Dyslipidemia: On statin #History of DVT: On Xarelto #DVT prophylaxis: Not indicated as patient already on Xarelto. Charges/Coding Visit Charges Inpatient E&M: 15177 Subs Hosp L2
[2025-01-10] MEDS: 0.9% Saline Lock 10 ML Syringe IV ×2 (11:37→20:09)
--- NOTE | 2025-01-10 11:40 | CASEMGMT ---
Social Work SW did check back w/pt in regard to discharge plan. Pt confirms he will go home at discharge, states his can help him. Pt state he got up today w/the FRONT OFFICE MEDICAL ASSISTANT and just a little help, was able to move okay. Pt not agreeable to placement at this time. Plan will continue to be for pt to go home at d/c. PARKASH Moran
[2025-01-10 11:41] LABS: Bedside Glucose 289 mg/dL (74-106)
--- NOTE | 2025-01-10 12:48 | CASEMGMT ---
ALLY LAUGHLIN into pt room to discuss HHC options. Pt states he previously used [facility]. During discussion, Pt states his is having a more difficult time helping him at home and states her knees are bad. ALLY LAUGHLIN asked Pt he felt it would be beneficial to go to a SNF and get additional therapy for short term before returning home. ALLY LAUGHLIN provided a verbal list of SNF's in the area, Pt requested TCU or RU at [facility]. Pt denies wanting a list of additional facilities at this time. ALLY LAUGHLIN notified KIP.
--- NOTE | 2025-01-10 15:27 | NURSING ---
Phone call received from pt Shabana requesting update. This nurse updated spouse regarding current condition and POC. plans to visit tomorrow.
[2025-01-10 16:23] LABS: Bedside Glucose 242 mg/dL (74-106)
[2025-01-10] MEDS: Rivaroxaban 20 MG Tablet PO (16:59)
[2025-01-10] MEDS: Doxazosin 4 MG Tablet PO (20:09)
[2025-01-10] MEDS: Atorvastatin Calcium 20 MG Tablet PO (20:11)
[2025-01-10] MEDS: Insulin Glargine-YFGN 100 UNIT/ML Pen 50 UNIT SC (21:00)
[2025-01-10 22:19] LABS: Bedside Glucose 212 mg/dL (74-106)
[2025-01-11] VITALS (17 sets, daily range): BP systolic 141–163; BP diastolic 73–80; PULSE 66–94; RESP 16–20; TEMP 36.4–36.7; O2SAT 92–97
[2025-01-11 07:03] LABS: Absolute Neutrophil Count 8.6 X10^3/uL (2.0-7.7); Basophil# 0.07 X10^3/uL; Basophil% 0.6 % (0-1); Eosinophil# 0.52 X10^3/uL; Eosinophils% 4.3 % (0-5); Hematocrit 40.4 % (40-54); Hemoglobin 13.3 g/dL (13.0-16.5); Lymphocyte % 12.3 % (19-41); Mean Corp Hgb Conc 32.9 g/dL (32-36); Mean Corpuscular Hgb 29.7 pg (27.0-32.0); Mean Corpuscular Volume 90.2 fL (80-94); Mean Platelet Vol. 10.4 fl (6.2-12.0); Monocyte# 1.33 X10^3/uL; Monocyte% 10.9 % (0-10); NRBC Flagged by Analyzer 0 % (0-5); Neutrophil # 8.64 X10^3/uL (2.7-7.7); Platelet Count 117 K/mm3 (150-450); RBC Distribution Width CV 13.5 % (11.6-14.6); RBC Distribution Width SD 44.5 fl (35.1-43.9); Red Blood Count 4.48 M/mm3 (4.6-6.2); White Blood Count 12.2 K/mm3 (4.4-11.0)
[2025-01-11 07:34] LABS: Bedside Glucose 154 mg/dL (74-106)
[2025-01-11 07:42] LABS: Anion Gap 10 (5-15); BUN 27 mg/dL (4-19); BUN/Creat Ratio 19.8 RATIO (10-20); Calcium,Total 8.6 mg/dL (7.6-11.0); Chloride 103 mmol/L (98-108); Creatinine, Serum 1.37 mg/dL (0.70-1.20); EST Glomerular Filtration Rate 55 (>60); Estimated Creatinine Clearance 83.31 ml/min (50-250); Glucose 161 mg/dL (70-99); Potassium 4.5 mmol/L (3.3-5.1); Sodium Level 135 mmol/L (133-145)
[2025-01-11] MEDS: Juven (unflavored) Packet 1 PACKET PO ×2 (08:59→16:59)
[2025-01-11] MEDS: Aspirin 81 MG TAB.CHEW PO (08:59)
[2025-01-11] MEDS: Metoprolol Tartrate 25 MG Tablet 75 MG PO ×2 (09:00→22:57)
[2025-01-11] MEDS: Menthol/Lanolin/Calamine/Znox 113 GM Tube 1 APPLIC TOPICAL ×2 (09:00→22:56)
[2025-01-11] MEDS: Losartan Potassium 100 MG Tablet PO (09:01)
[2025-01-11] MEDS: Nystatin Powder 15gm Bottle 1 APPLIC TOPICAL ×2 (09:01→22:58)
[2025-01-11] MEDS: Doxycycline 100 MG CAPSULE PO ×2 (09:01→22:57)
[2025-01-11] MEDS: Zinc Sulfate 50 mg zinc (220 mg) ORAL capsule PO (09:02)
[2025-01-11] MEDS: Gabapentin 600 MG Tablet PO ×3 (09:04→17:01)
[2025-01-11] MEDS: Ceftriaxone 2 GM in 0.9% Normal Saline (50mL MB+) 50 ML IV (09:05)
[2025-01-11] MEDS: Insulin Lispro 100 UNIT/ML INSULN.PEN 20 UNIT SC ×3 (09:06→12:04)
[2025-01-11] MEDS: Insulin Lispro 100 UNIT/ML INSULN.PEN SC ×3 (09:07→16:58)
[2025-01-11 11:45] LABS: Bedside Glucose 236 mg/dL (74-106)
--- NOTE | 2025-01-11 12:54 | PCM.PN.HOSP ---
Reason for Visit Reason for Visit: Diagnoses Sepsis, unspecified organism (01/08/25) Type 2 diabetes mellitus with foot ulcer (01/08/25) Pneumonia, unspecified organism (01/08/25) Non-pressure chronic ulcer of right heel and midfoot with fat layer exposed (01/08/25) Bacteremia (01/08/25) Objective Data Objective Data Vital Signs: Vital Signs Temp Pulse Resp BP Pulse Ox O2 Del Method O2 Flow Rate 98.0 F 78 18 145/78 H 94 Room Air 2 01/11/25 12:00 01/11/25 12:00 01/11/25 12:00 01/11/25 12:00 01/11/25 12:00 01/11/25 12:00 01/10/25 09:17 Oxygen Flow Rate (L/min) 2 Oxygen Delivery Method Room Air Weight: 390 lb 7.018 oz Body Mass Index (BMI) 52.9 Intake & Output: Intake and Output for Last 24 Hours 01/09/25 01/10/25 01/11/25 23:59 23:59 23:59 Intake Total 550 / 550 850 / 1850 1900 / 1900 Output Total 1050 / 1050 650 / 1150 1100 / 1100 Balance -500 / -500 200 / 700 800 / 800 Lab / Micro Data 01/11/25 06:00 01/11/25 06:00 Labs: Laboratory Results - last 24 hr 01/10/25 16:05: POC Glucose 242 H 01/10/25 20:58: POC Glucose 212 H 01/11/25 06:00: WBC 12.2 H, RBC 4.48 L, Hgb 13.3, Hct 40.4, MCV 90.2, MCH 29.7, MCHC 32.9, RDW Std Deviation 44.5 H, RDW Coeff of Jak 13.5, Plt Count 117 L, MPV 10.4, Immature Gran % (Auto) 0.900, Neut % (Auto) 71.0 H, Lymph % (Auto) 12.3 L, [place] % (Auto) 10.9 H, Eos % (Auto) 4.3, Baso % (Auto) 0.6, Absolute Neuts (auto) 8.6 H, Absolute Lymphs (auto) 1.50, Nucleated RBC % 0, Sodium 135, Potassium 4.5, Chloride 103, Carbon Dioxide 22.0, Anion Gap 10, BUN 27 H, Creatinine 1.37 H, Estim Creat Clear Calc 83.31, Est GFR (MDRD) Non-Af 55 L, BUN/Creatinine Ratio 19.8, Glucose 161 H, Calcium 8.6 01/11/25 06:58: POC Glucose 154 H 01/11/25 11:24: POC Glucose 236 H Micro: Microbiology 01/09/25 09:50 Wound - Heel Right Gram Stain - Final 01/09/25 09:50 Wound - Heel Right Wound Culture - Preliminary Streptococcus agalactiae (B) 01/08/25 15:52 Blood Culture (Wb) - Anticubital Left Blood Culture - Final Beta streptococcus 01/08/25 14:50 Blood Culture (Wb) - Anticubital Left Bacteria Detection (PCR) - Final Streptococcus agalactiae (B) 01/08/25 14:50 Blood Culture (Wb) - Anticubital Left Blood Culture - Preliminary Streptococcus agalactiae (B) 01/09/25 13:15 Urine Catheter - Catheter Legionella Antigen - Final 01/09/25 13:15 Urine, Random Streptococcus pneumoniae Antigen (M - Final 01/09/25 00:00 Mucosa - Nasopharyngeal Respiratory Panel (PCR) - Final 01/08/25 15:52 Mucosa - Nose SARS-CoV-2, Influenza & RSV (PCR) - Final Physical Exam Narrative Seen and examined. Patient has severe arthritis and difficulty moving about. Has group B strep bacteremia. Yesterday as per social services analyst he agreed for going to TCU but today he is refusing. No fever. On CPAP at night. Physical exam General: Alert, Oriented x3, Cooperative. BMI 53.0 kg/m? morbid obesity HEENT: Atraumatic, PERRLA, EOMI, Normocephalic. Oral: No Gingival or Mucosal Lesions/ Ulcerations Neck: Supple, No JVD, Negative Carotid Bruits Chest wall/Lungs: Air entry diminished in bilateral lung bases. No crepitation/rhonchi Cardiovascular: Regular rate and rhythm, Normal S1,S2, No M/G/R Abdomen: Bowel Sounds Present, Soft, Non Tender, Non-Distended : No dysuria. No renal angle tenderness. No suprapubic tenderness. Extremities: No edema, Capillary Refill Less than 3 Seconds Skin: Chronic healing wound on the right foot, covered with a dressing present since admit. Musculoskeletal: No Tenderness to Palpation of Joints or Extremities. ROM limited at knees joints Neurological: Cranial nerves II-XII grossly intact, DTR 2+/4. No acute focal neurological deficit. Psych/Mental Status: Normal Affect, Appropriate. Assessment & Plan Assessment/Plan (1) Bacteremia: (2) Sepsis: (3) Pneumonia: PLAN: Plan # Less likely community acquired pneumonia Patient started on IV levofloxacin on admission. Will broaden to IV cefepime as his white cell count is trended up to 35.6 today. Blood cultures also positive for gram-positive cocci in chains. ID consulted. Breathing treatment with bronchodilators. Titrate oxygen to maintain saturation above 90%. Antibiotics narrowed down to ceftriaxone and doxycycline per ID 01/11: Chest x-ray showed bilateral perihilar opacities favoring pulmonary edema/congestion therefore pneumonia less likely #Gram-positive bacteremia, strep agalactiae group B bacteremia from wound Is known to me that patient's daughter came in later today and said that the last time he was the sick he had any infection. Will therefore get knee x-ray to evaluate. ID consulted and antibiotics narrowed down as stated above to doxycycline and ceftriaxone. 01/11 wound culture preliminary showing strep group B similar to the blood culture therefore group B strep bacteremia from wound. Continue above antibiotic. ID follow-up tomorrow a.m. #Type 2 diabetes mellitus: On Lantus. Insulin sliding scale. Accu-Cheks ACHS. 01/11: Patient has diabetic polyneuropathy. Humalog insulin doses increased #Probable acute on chronic exacerbation of heart failure: proBNP elevated over 4000. He does have known heart failure. Lasix was held on admission. Home diuresed with IV Lasix 40 mg daily due to kidney function Monitor intake and output. Fluid restriction to 1500 cc daily. # Hypertension: On doxazosin and losartan. IV hydralazine as needed #CKD stage III: Cr today is 1.71. Baseline Creatinine is 1.3-1.4. Creatinine has been as high as 1.62 even around 2 in the past. will monitor closely for now Diabetes neuropathy foot ulcer with GBS bacteremia. Has infected right foot wound or pneumonia as source. Urinary antigens are negative. Wound culture pending. On doxycycline and ceftriaxone Patient follows Dr. Saurabh Dasilva at wound clinic. He has chronic wound over right lateral/plantar aspect of first digit and heel. Wound photo reviewed and shows healing, fibrotic margin. He stated it is healing. Wound nurse consultation. Foot x-ray shows left first digit ulcer. 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 01/08/25 19:15 Urine, Clean Catch Urine Culture - Final Mixed Gram Positive Organisms 01/09/25 09:50 Wound - Heel Right Gram Stain - Final 01/09/25 09:50 Wound - Heel Right Wound Culture - Preliminary Streptococcus agalactiae (B) 01/08/25 15:52 Blood Culture (Wb) - Anticubital Left Blood Culture - Final Beta streptococcus 01/08/25 14:50 Blood Culture (Wb) - Anticubital Left Bacteria Detection (PCR) - Final Streptococcus agalactiae (B) 01/08/25 14:50 Blood Culture (Wb) - Anticubital Left Blood Culture - Preliminary Streptococcus agalactiae (B) 01/09/25 13:15 Urine Catheter - Catheter Legionella Antigen - Final 01/09/25 13:15 Urine, Random Streptococcus pneumoniae Antigen (M - Final 01/09/25 00:00 Mucosa - Nasopharyngeal Respiratory Panel (PCR) - Final 01/08/25 15:52 Mucosa - Nose SARS-CoV-2, Influenza & RSV (PCR) - Final Laboratory Results 01/10/25 16:05: POC Glucose 242 H 01/10/25 20:58: POC Glucose 212 H 01/11/25 06:00: WBC 12.2 H, RBC 4.48 L, Hgb 13.3, Hct 40.4, MCV 90.2, MCH 29.7, MCHC 32.9, RDW Std Deviation 44.5 H, RDW Coeff of Jak 13.5, Plt Count 117 L, MPV 10.4, Immature Gran % (Auto) 0.900, Neut % (Auto) 71.0 H, Lymph % (Auto) 12.3 L, [place] % (Auto) 10.9 H, Eos % (Auto) 4.3, Baso % (Auto) 0.6, Absolute Neuts (auto) 8.6 H, Absolute Lymphs (auto) 1.50, Nucleated RBC % 0, Sodium 135, Potassium 4.5, Chloride 103, Carbon Dioxide 22.0, Anion Gap 10, BUN 27 H, Creatinine 1.37 H, Estim Creat Clear Calc 83.31, Est GFR (MDRD) Non-Af 55 L, BUN/Creatinine Ratio 19.8, Glucose 161 H, Calcium 8.6 01/11/25 06:58: POC Glucose 154 H 01/11/25 11:24: POC Glucose 236 H Clinical Impression(s) from Imaging Studies Brain CT 01/08/25 14:36 IMPRESSION: CHRONIC CHANGES. NO ACUTE FINDINGS. Reading Location: [id number] Chest X-Ray 01/08/25 15:24 IMPRESSION: Bilateral perihilar opacities in the pattern favoring edema/pulmonary vascular congestion. However, in the setting of fever, bilateral pneumonia can not be excluded. Reading Location: [place] [id number] Foot X-Ray 01/08/25 15:24 IMPRESSION: Probable 1st digit wound. No significant osseous erosion. Reading Location: [id number] Knee X-Ray 01/09/25 14:35 IMPRESSION: No obvious signs of osteomyelitis or infected hardware. If indicated, this can be further evaluated with three-phase bone scan. Reading [facility] Charges/Coding Visit Charges Inpatient E&M: 98599 Subs Hosp L2
[2025-01-11 16:32] LABS: Bedside Glucose 165 mg/dL (74-106)
[2025-01-11] MEDS: Insulin Lispro 100 UNIT/ML INSULN.PEN 25 UNIT SC (16:58)
[2025-01-11] MEDS: Rivaroxaban 20 MG Tablet PO (16:59)
[2025-01-11] MEDS: Doxazosin 4 MG Tablet PO (22:56)
[2025-01-11] MEDS: Atorvastatin Calcium 20 MG Tablet PO (22:58)
[2025-01-11] MEDS: guaiFENesin/D-Methorphan TAB.SR.12H 1 TABLET PO (22:59)
[2025-01-11] MEDS: Insulin Glargine-YFGN 100 UNIT/ML Pen 50 UNIT SC (23:07)
[2025-01-12 00:42] LABS: Bedside Glucose 129 mg/dL (74-106)
[2025-01-12 02:34] VITALS: PULSE 78; RESP 16; O2SAT 90
[2025-01-12 02:59] VITALS: PULSE 69
[2025-01-12 04:51] VITALS: BP 151/72; PULSE 80; RESP 16; TEMP 36.8; O2SAT 94
[2025-01-12 06:16] LABS: Absolute Lymphocyte Count 1.23 X10^3/uL (0.83-4.51); Absolute Neutrophil Count 7.3 X10^3/uL (2.0-7.7); Basophil# 0.06 X10^3/uL; Basophil% 0.6 % (0-1); Eosinophil# 0.47 X10^3/uL; Eosinophils% 4.7 % (0-5); Hematocrit 40.9 % (40-54); Hemoglobin 13.7 g/dL (13.0-16.5); Lymphocyte # 1.23 X10^3/ul (0.83-4.51); Lymphocyte % 12.3 % (19-41); Mean Corp Hgb Conc 33.5 g/dL (32-36); Mean Corpuscular Hgb 29.7 pg (27.0-32.0); Mean Corpuscular Volume 88.5 fL (80-94); Mean Platelet Vol. 9.9 fl (6.2-12.0); Monocyte# 0.83 X10^3/uL; Monocyte% 8.3 % (0-10); NRBC Flagged by Analyzer 0 % (0-5); Neutrophil # 7.26 X10^3/uL (2.7-7.7); Neutrophil % 72.5 % (47-70); Platelet Count 130 K/mm3 (150-450); RBC Distribution Width CV 13.3 % (11.6-14.6); RBC Distribution Width SD 43.3 fl (35.1-43.9); Red Blood Count 4.62 M/mm3 (4.6-6.2)
[2025-01-12 06:36] LABS: Bedside Glucose 137 mg/dL (74-106)
[2025-01-12 06:45] LABS: Anion Gap 11 (5-15); BUN 23 mg/dL (4-19); BUN/Creat Ratio 18.8 RATIO (10-20); Calcium,Total 8.6 mg/dL (7.6-11.0); Carbon Dioxide 21.4 mmol/L (21.0-32.0); Chloride 106 mmol/L (98-108); Creatinine, Serum 1.21 mg/dL (0.70-1.20); EST Glomerular Filtration Rate 64 (>60); Estimated Creatinine Clearance 94.33 ml/min (50-250); Glucose 134 mg/dL (70-99); Potassium 4.2 mmol/L (3.3-5.1); Sodium Level 138 mmol/L (133-145)
--- NOTE | 2025-01-12 07:54 | PN.HOSP_ITS ---
Reason for Visit Reason for Visit: Diagnoses Sepsis, unspecified organism (01/08/25) Type 2 diabetes mellitus with foot ulcer (01/08/25) Pneumonia, unspecified organism (01/08/25) Non-pressure chronic ulcer of right heel and midfoot with fat layer exposed (01/08/25) Bacteremia (01/08/25) Subjective Subjective Feeling well. No issues overnight. Objective Data Objective Data Vital Signs: Vital Signs Temp Pulse Resp BP Pulse Ox O2 Del Method O2 Flow Rate 36.8 C 80 16 151/72 H 94 Room Air 2 01/12/25 04:51 01/12/25 04:51 01/12/25 04:51 01/12/25 04:51 01/12/25 04:51 01/12/25 07:36 01/10/25 09:17 Oxygen Flow Rate (L/min) 2 Oxygen Delivery Method Room Air Weight: 177.1 kg Body Mass Index (BMI) 52.9 Intake & Output: Intake and Output for Last 24 Hours 01/10/25 01/11/25 01/12/25 23:59 23:59 23:59 Intake Total 850 / 1850 2700 / 2700 Output Total 650 / 1150 1700 / 2100 400 / 400 Balance 200 / 700 1000 / 600 -400 / -400 Lab / Micro Data 01/12/25 05:31 01/12/25 05:31 Labs: Laboratory Results - last 24 hr 01/11/25 11:24: POC Glucose 236 H 01/11/25 16:10: POC Glucose 165 H 01/11/25 23:04: POC Glucose 129 H 01/12/25 05:31: WBC 10.0, RBC 4.62, Hgb 13.7, Hct 40.9, MCV 88.5, MCH 29.7, MCHC 33.5, RDW Std Deviation 43.3, RDW Coeff of Jak 13.3, Plt Count 130 L, MPV 9.9, I mmature Gran % (Auto) 1.600 H, Neut % (Auto) 72.5 H, Lymph % (Auto) 12.3 L, [place] % (Auto) 8.3, Eos % (Auto) 4.7, Baso % (Auto) 0.6, Absolute Neuts (auto) 7.3, Absolute Lymphs (auto) 1.23, Nucleated RBC % 0, Sodium 138, Potassium 4.2, Chloride 106, Carbon Dioxide 21.4, Anion Gap 11, BUN 23 H, Creatinine 1.21 H, Estim Creat Clear Calc 94.33, Est GFR (MDRD) Non-Af 64, BUN/Creatinine Ratio 18.8, Glucose 134 H, Calcium 8.6 01/12/25 06:15: POC Glucose 137 H Micro: Microbiology 01/08/25 19:15 Urine, Clean Catch Urine Culture - Final Mixed Gram Positive Organisms 01/09/25 09:50 Wound - Heel Right Gram Stain - Final 01/09/25 09:50 Wound - Heel Right Wound Culture - Preliminary Streptococcus agalactiae (B) 01/08/25 15:52 Blood Culture (Wb) - Anticubital Left Blood Culture - Final Beta streptococcus 01/08/25 14:50 Blood Culture (Wb) - Anticubital Left Bacteria Detection (PCR) - Final Streptococcus agalactiae (B) 01/08/25 14:50 Blood Culture (Wb) - Anticubital Left Blood Culture - Preliminary Streptococcus agalactiae (B) 01/09/25 13:15 Urine Catheter - Catheter Legionella Antigen - Final 01/09/25 13:15 Urine, Random Streptococcus pneumoniae Antigen (M - Final 01/09/25 00:00 Mucosa - Nasopharyngeal Respiratory Panel (PCR) - Final 01/08/25 15:52 Mucosa - Nose SARS-CoV-2, Influenza & RSV (PCR) - Final Physical Exam Const alert and no apparent distress Constitutional Narrative: up in chair. non-toxic. afebrile. Extremity Extremity Narrative: right foot bandaged--did not remove. Assessment & Plan Assessment/Plan (1) Bacteremia: PLAN: 01/08: group B strep. Follow up culture on the so far negative 09/14 to heel wound ID following. On CTX and doxycycline. I do not see patient meeting criteria for sepsis SIRS, nor qSOFA--therefore ruled out. ID recommends 1 week cefdinir 300 BID. (2) Diabetic ulcer of foot associated with diabetes mellitus due to underlying condition, with fat layer exposed: QUALIFIERS: Diabetic foot ulcer location: heel Laterality: right Qualified Code(s): E08.621 - Diabetes mellitus due to underlying condition with foot ulcer; L97.412 - Non-pressure chronic ulcer of right heel and midfoot with fat layer exposed PLAN: infection. with group B strep abx as above. follow up with wound care. PLAN: Plan Chronic conditions: * DM2: glargine, prandial insulin, SSI * HTN: losartan, metoprolol * h/o DVT: on rivaroxaban VTE prophylaxis: not indicated as already on rivaroxaban.
[2025-01-12 08:05] VITALS: BP 135/75; PULSE 87; RESP 16; TEMP 36.9; O2SAT 95
[2025-01-12 08:09] VITALS: O2SAT 95
[2025-01-12] MEDS: Aspirin 81 MG TAB.CHEW PO (08:17)
[2025-01-12] MEDS: Insulin Lispro 100 UNIT/ML INSULN.PEN 25 UNIT SC ×2 (08:17→12:17)
[2025-01-12] MEDS: Juven (unflavored) Packet 1 PACKET PO (08:18)
[2025-01-12] MEDS: Gabapentin 600 MG Tablet PO ×2 (08:20→12:16)
[2025-01-12 08:48] LABS: Bedside Glucose 145 mg/dL (74-106)
--- NOTE | 2025-01-12 09:33 | PCM.PN.ID ---
Physical Exam Narrative Feeling better, breathing better, less dyspnea. No n/v/d. Const alert and no apparent distress General Appearance: cooperative Resp clear to auscultation bilaterally Auscultation: diminished lung sounds Cardio regular rate and regular rhythm GI soft to palpation, non-tender and non-distended Extremity General Extremity: edema Skin Skin Narrative: reviewed wound photos ID ID: Route of nutrition/ use of supplements: [] Nutritional Intake: [] IV Site: [] Guido Catheter: [] Assessment & Plan Assessment/Plan (1) Sepsis: PLAN: sepsis with GBS bacteremia per pcr - infected R foot wound as source. Overall much improved. BNP was 5k. Ok for home with one week po cefdinir 300mg bid. Will follow prn (2) Bacteremia: (3) Diabetic foot ulcer: QUALIFIERS: Diabetic foot ulcer location: heel Diabetes mellitus type: type 2 Laterality: right Non-pressure ulcer stage: with fat layer exposed Qualified Code(s): E11.621 - Type 2 diabetes mellitus with foot ulcer; L97.412 - Non-pressure chronic ulcer of right heel and midfoot with fat layer exposed
--- NOTE | 2025-01-12 10:21 | PCM.DC.SUM ---
Providers Date of Admission: 01/08/25 Primary Care Physician: Dr. David Kate MD Consultations 01/09/25 07:41 Consult: Infectious Disease Routine Consulting Provider: Gm Cobb Reason for Consult: sepsis due to pneumonia, bacteremia EMERGENT Consult: No MD Notified: Yes Date Notified: 01/09/25 Time Notified: 07:41 Method of Notification: Text 01/09/25 08:51 Consult: Onc/Wound/pewter finisher Routine Comment: Reason for Consult:: rt foot Reason For Visit: PNEUMONIA Diagnosis Discharge Diagnosis (1) Bacteremia: Status: Acute Code(s): R78.81 - Bacteremia Plan: 01/08: group B strep. Follow up culture on the so far negative 2/2 to heel wound ID following. On CTX and doxycycline. I do not see patient meeting criteria for sepsis SIRS, nor qSOFA--therefore ruled out. ID recommends 1 week cefdinir 300 BID. (2) Diabetic ulcer of foot associated with diabetes mellitus due to underlying condition, with fat layer exposed: Status: Acute Code(s): E08.621 - Diabetes mellitus due to underlying condition with foot ulcer; L97.502 - Non-pressure chronic ulcer of other part of unspecified foot with fat layer exposed Qualifiers: Diabetic foot ulcer location: heel Laterality: right Qualified Code(s): E08.621 - Diabetes mellitus due to underlying condition with foot ulcer; L97.412 - Non-pressure chronic ulcer of right heel and midfoot with fat layer exposed Plan: infection. with group B strep abx as above. follow up with wound care. Plan Chronic conditions: DM2: glargine, prandial insulin, SSI HTN: losartan, metoprolol h/o DVT: on rivaroxaban VTE prophylaxis: not indicated as already on rivaroxaban. Medications at Discharge Home Medications atorvastatin 20 mg tablet 20 mg PO QHS cholesterol 08/27/15 furosemide 40 mg tablet 80 mg PO DAILY diuretic 08/27/15 rivaroxaban 20 mg tablet (Xarelto) 20 mg PO DINNER blood thinner 03/23/16 doxazosin 4 mg tablet 4 mg PO QHS blood pressure 04/03/20 insulin lispro 100 unit/mL subcutaneous pen 20 unit subcut BREAKFAST diabetes 02/23/22 insulin lispro 100 unit/mL subcutaneous pen 20 unit subcut LUNCH diabetes 02/23/22 gabapentin 600 mg tablet 600 mg PO TIDCM Nerve Pain 02/24/22 insulin glargine-yfgn 100 unit/mL (3 mL) subcutaneous pen 50 unit (0.5 mL) subcut QHS dm #0 mL 04/10/22 insulin lispro 100 unit/mL subcutaneous pen (Humalog KwikPen (U-100) Insulin) 20 unit (0.2 mL) subcut DINNER dm #0 mL 04/10/22 aspirin 81 mg capsule 81 mg PO DAILY heart health 08/16/22 calcium carbonate (Tums) 200 mg PO BID PRN Heartburn 08/16/22 dulaglutide 3 mg/0.5 mL subcutaneous pen injector (Trulicity) 3 mg subcut QWEEK dm 08/16/22 hydrocodone-acetaminophen 5-325mg 5mg-325mg 1 tab PO Q8H PRN Pain 08/16/22 zinc 50 mg capsule 50 mg PO DAILY supplement 08/16/22 losartan 100 mg tablet 100 mg PO DAILY bp 12/10/24 metoprolol tartrate 75 mg tablet 75 mg PO BID bp 01/08/25 tizanidine 4 mg tablet 4 mg PO TID PRN PRN low back pain 01/08/25 cefdinir 300 mg capsule 300 mg PO BID 7 days #14 caps 01/12/25 Hospital Course Operations None Procedures None Summary of Care Provided Minutes Spent on Discharge: 35 Hospital Course: Patient presents with chills. Source is unclear at first and suspected he may have been pneumonia but eventually came out showing group B strep bacteremia. The source of which seem to be his right heel ulcer which also was growing out group B strep. Patient was seen in consultation by infectious disease and patient will be discharged with 7-day course of cefdinir. Patient to follow-up with wound care for his chronic right heel wound. He has an offloading boot that he already wears. Weight / BMI Weight Weight: 177.1 kg Body Mass Index (BMI) 52.9 ABG / Lab / Microbiology Data 01/12/25 05:31 01/12/25 05:31 Laboratory: Laboratory Results - last 24 hr 01/11/25 11:24: POC Glucose 236 H 01/11/25 16:10: POC Glucose 165 H 01/11/25 23:04: POC Glucose 129 H 01/12/25 05:31: WBC 10.0, RBC 4.62, Hgb 13.7, Hct 40.9, MCV 88.5, MCH 29.7, MCHC 33.5, RDW Std Deviation 43.3, RDW Coeff of Jak 13.3, Plt Count 130 L, MPV 9.9, Immature Gran % (Auto) 1.600 H, Neut % (Auto) 72.5 H, Lymph % (Auto) 12.3 L, [place] % (Auto) 8.3, Eos % (Auto) 4.7, Baso % (Auto) 0.6, Absolute Neuts (auto) 7.3, Absolute Lymphs (auto) 1.23, Nucleated RBC % 0, Sodium 138, Potassium 4.2, Chloride 106, Carbon Dioxide 21.4, Anion Gap 11, BUN 23 H, Creatinine 1.21 H, Estim Creat Clear Calc 94.33, Est GFR (MDRD) Non-Af 64, BUN/Creatinine Ratio 18.8, Glucose 134 H, Calcium 8.6 01/12/25 06:15: POC Glucose 137 H 01/12/25 07:53: POC Glucose 145 H Microbiology: Microbiology 01/10/25 10:45 Blood Culture (Wb) - Anticubital Right Blood Culture - Preliminary No growth in 48 hours. 01/08/25 19:15 Urine, Clean Catch Urine Culture - Final Mixed Gram Positive Organisms 01/09/25 09:50 Wound - Heel Right Gram Stain - Final 01/09/25 09:50 Wound - Heel Right Wound Culture - Preliminary Streptococcus agalactiae (B) 01/08/25 15:52 Blood Culture (Wb) - Anticubital Left Blood Culture - Final Beta streptococcus 01/08/25 14:50 Blood Culture (Wb) - Anticubital Left Bacteria Detection (PCR) - Final Streptococcus agalactiae (B) 01/08/25 14:50 Blood Culture (Wb) - Anticubital Left Blood Culture - Preliminary Streptococcus agalactiae (B) 01/09/25 13:15 Urine Catheter - Catheter Legionella Antigen - Final 01/09/25 13:15 Urine, Random Streptococcus pneumoniae Antigen (M - Final 01/09/25 00:00 Mucosa - Nasopharyngeal Respiratory Panel (PCR) - Final 01/08/25 15:52 Mucosa - Nose SARS-CoV-2, Influenza & RSV (PCR) - Final D/C Instructions Discharge Diet: 2000 Calorie Control Diet DC O2, CPAP, BIPAP Needs Home O2 Discharge instructions: No Meaningful Use Info Meaningful Use Meaningful Use Diagnoses (Choose all that apply): None applicable Ischemic Stroke Statin Dosing Therapy Reference: STATIN DOSE THERAPY REFERENCE: * Patients > 75 years receive moderate or high dose statin therapy. * Patients 75 years or YOUNGER should receive HIGH intensity statin dose unless contraindicated. You will be required to document reason for non-treatment if statin daily dose does not meet guidelines. HIGH DOSE STATIN THERAPY DAILY Atorvastatin > than or = to 40 mg Rosuvastatin > than or = to 20 mg Amlodipine + Atorvastatin > than or = to 2.5/40 mg Ezetimibe + Simvastatin 10/80 mg Simvastatin 80mg Discharge Plan Admission Admit Date/Time: 01/08/25 18:42 Primary Reason for Your Visit: Bacteremia Attending Provider: Tremayne Garcia Primary Care Provider: David Kate Consulting Providers: Zen Parish; Gm Cobb; Sara Marcial; Mike Clarke Instructions Additional Instructions / Restrictions: You had bacteria in her bloodstream from the right heel wound. He will be on antibiotics for 1 more week. Please take the antibiotics to completion. If you notice any changes to your foot, such as discharge, increased redness or pain, notify your physician or return to the emergency room. Continue to wear your offloading boot when you are up. Follow-up with wound care. Discharge Orders/Prescriptions Prescriptions: New cefdinir 300 mg capsule 300 mg PO BID 7 Days Qty: 14 0RF Continued furosemide 40 MG tablet 80 mg PO DAILY Patient Comments: diuretic atorvastatin 20 MG tablet 20 mg PO QHS Patient Comments: reduce cholesterol Xarelto 20 MG tablet 20 mg PO DINNER Patient Comments: BLOOD THINNER doxazosin 4 MG tablet 4 mg PO QHS insulin lispro 100 unit/mL Insulin Pen 20 unit SUBCUT BREAKFAST insulin lispro 100 unit/mL Insulin Pen 20 unit SUBCUT LUNCH gabapentin 600 MG tablet 600 mg PO TIDCM insulin glargine-yfgn 100 unit/mL (3 mL) Insulin Pen 50 unit subcut QHS Qty: 0 0RF insulin lispro [Humalog KwikPen Insulin] 100 unit/mL Insulin Pen 20 unit subcut DINNER Qty: 0 0RF hydrocodone-acetaminophen 5-325 mg Tablet 1 tab PO Q8H PRN (Reason: Pain) calcium carbonate [Tums] 200 mg calcium (500 mg) Tablet,Chewable 200 mg PO BID PRN (Reason: Heartburn) zinc 50 mg Capsule 50 mg PO DAILY Trulicity 3 mg/0.5 mL Pen Injector 3 mg SUBCUT QWEEK Rx Instructions: Fridays aspirin 81 mg Capsule 81 mg PO DAILY losartan 100 mg tablet 100 mg PO DAILY metoprolol tartrate 75 mg tablet 75 mg PO BID tizanidine 4 mg tablet 4 mg PO TID PRN PRN (Reason: low back pain) Discontinued doxycycline hyclate 100 mg capsule 100 mg PO BID Qty: 60 1RF Referrals / Follow Up: Wound Health [Outside] - 01/14/25 1:45 pm David Kate MD [Primary Care Provider] - Within 2 Weeks Disposition Disposition (needs filled in before D/C Order can be placed): Home, Self Care Charges/Coding Visit Charges Inpatient E&M: 58098 Disch Hosp >30min
[2025-01-12] MEDS: Menthol/Lanolin/Calamine/Znox 113 GM Tube 1 APPLIC TOPICAL (10:26)
[2025-01-12] MEDS: Ceftriaxone 2 GM in 0.9% Normal Saline (50mL MB+) 50 ML IV (10:26)
[2025-01-12] MEDS: Losartan Potassium 100 MG Tablet PO (10:27)
[2025-01-12] MEDS: Doxycycline 100 MG CAPSULE PO (10:27)
[2025-01-12] MEDS: Furosemide 80 MG Tablet PO (10:27)
[2025-01-12 10:28] VITALS: PULSE 87
[2025-01-12] MEDS: guaiFENesin/D-Methorphan TAB.SR.12H 1 TABLET PO (10:28)
[2025-01-12] MEDS: Nystatin Powder 15gm Bottle 1 APPLIC TOPICAL (10:28)
[2025-01-12] MEDS: Metoprolol Tartrate 25 MG Tablet 75 MG PO (10:28)
[2025-01-12] MEDS: Zinc Sulfate 50 mg zinc (220 mg) ORAL capsule PO (10:28)
--- NOTE | 2025-01-12 10:59 | CASEMGMT ---
Social Work- SW met with pt to discuss discharge planning. Pt unable to assist pt with care due to physical limitations. PT accepted at TCU and agreeable to discharge plan of inpatient therapy prior to home. Bedside nurse, TCU admissions, and hospitalist notified of discharge plans. SW remains available to follow. KATEY Zapata
--- NOTE | 2025-01-12 11:09 | TREXTCAR_ITS ---
Diet Diet Order/Speech Therapy: INPATIENT Hospital Diet / Speech Therapy Order(s) 01/08/25 18:43 Diet: Consistent Carb - Calorie Controlled Food consistency:: Regular Liquid Consistency:: Regular/Thin Dietary Modifications:: Cardiac / Heart Healthy Type of Dietary Supplement:: Glucerna Shake Diet Comments: 4 oz chocolate glucerna shake tid w/ meals How many daily calories?: 2000 calorie DC O2, CPAP, BIPAP needs Home O2 Discharge instructions: No Wound(s) R GREAT TOE: Wound Type: Neuropathic/Diabetic Foot Ulcer Dressing Change: betadine with dry dressing R HEEL: Wound Type: Neuropathic/Diabetic Foot Ulcer right lateral heel: Wound Type: Neuropathic/Diabetic Foot Ulcer Dressing Change: betadine with dry dressing Therapies Weight Bearing: Partial weight bearing Extremity Affected:: Right Lower Physical Therapy: Eval and Treat Occupational Therapy: Eval and Treat Problem/Diagnosis (1) Bacteremia: Status: Acute Code(s): R78.81 - Bacteremia Plan: 01/08: group B strep. Follow up culture on the so far negative 2/2 to heel wound ID following. On CTX and doxycycline. I do not see patient meeting criteria for sepsis SIRS, nor qSOFA--therefore ruled out. ID recommends 1 week cefdinir 300 BID. (2) Diabetic ulcer of foot associated with diabetes mellitus due to underlying condition, with fat layer exposed: Status: Acute Code(s): E08.621 - Diabetes mellitus due to underlying condition with foot ulcer; L97.502 - Non-pressure chronic ulcer of other part of unspecified foot with fat layer exposed Plan: infection. with group B strep abx as above. follow up with wound care. Plan Chronic conditions: * DM2: glargine, prandial insulin, SSI * HTN: losartan, metoprolol * h/o DVT: on rivaroxaban VTE prophylaxis: not indicated as already on rivaroxaban. Allergies/Procedures Done in Hospital Allergies Penicillins Allergy (Unknown, Verified 01/08/25 14:25) Hives erythromycin base (Erythromycin Base) Adverse Reaction (Verified 01/08/25 14:25) Nausea Procedures: None Type of Care/Length of Stay Estimated LOS: Convalescent Care Less Than 30 days Type of Care Needed: Skilled Rehab Potential: Good Prognosis: Good Additional Orders/Day of Discharge Day of Discharge: 01/12/25 Dietary and Speech Recommendations Dietitian Recommendations/Changes: Will change diet to Cardiac / Consistent CHO w/ 4 oz chocolate glucerna shake tid w/ meals Will order kiki bid w/ medpass to help w/ skin healing Monitor for changes in pt nutritional status and make additional rec/provide diet education as indicated. Discharge Plan Admission Admit Date/Time: 01/08/25 18:42 Primary Reason for Your Visit: Bacteremia Attending Provider: Tremayne Garcia Primary Care Provider: David Kate Consulting Providers: Zen Parish; Gm Cobb; Sara Marcial; Mike Clarke Instructions Additional Instructions / Restrictions: You had bacteria in her bloodstream from the right heel wound. He will be on antibiotics for 1 more week. Please take the antibiotics to completion. If you notice any changes to your foot, such as discharge, increased redness or pain, notify your physician or return to the emergency room. Continue to wear your offloading boot when you are up. Follow-up with wound care. Discharge Orders/Prescriptions Prescriptions: New cefdinir 300 mg capsule 300 mg PO BID 7 Days Qty: 14 0RF Continued furosemide 40 MG tablet 80 mg PO DAILY Patient Comments: diuretic atorvastatin 20 MG tablet 20 mg PO QHS Patient Comments: reduce cholesterol Xarelto 20 MG tablet 20 mg PO DINNER Patient Comments: BLOOD THINNER doxazosin 4 MG tablet 4 mg PO QHS insulin lispro 100 unit/mL Insulin Pen 20 unit SUBCUT BREAKFAST insulin lispro 100 unit/mL Insulin Pen 20 unit SUBCUT LUNCH gabapentin 600 MG tablet 600 mg PO TIDCM insulin glargine-yfgn 100 unit/mL (3 mL) Insulin Pen 50 unit subcut QHS Qty: 0 0RF insulin lispro [Humalog KwikPen Insulin] 100 unit/mL Insulin Pen 20 unit subcut DINNER Qty: 0 0RF hydrocodone-acetaminophen 5-325 mg Tablet 1 tab PO Q8H PRN (Reason: Pain) calcium carbonate [Tums] 200 mg calcium (500 mg) Tablet,Chewable 200 mg PO BID PRN (Reason: Heartburn) zinc 50 mg Capsule 50 mg PO DAILY Trulicity 3 mg/0.5 mL Pen Injector 3 mg SUBCUT QWEEK Rx Instructions: Fridays aspirin 81 mg Capsule 81 mg PO DAILY losartan 100 mg tablet 100 mg PO DAILY metoprolol tartrate 75 mg tablet 75 mg PO BID tizanidine 4 mg tablet 4 mg PO TID PRN PRN (Reason: low back pain) Discontinued doxycycline hyclate 100 mg capsule 100 mg PO BID Qty: 60 1RF Referrals / Follow Up: Wound Health [Outside] - 01/14/25 1:45 pm David Kate MD [Primary Care Provider] - Within 2 Weeks Disposition Disposition (needs filled in before D/C Order can be placed): Home, Self Care (2) Diabetic ulcer of foot associated with diabetes mellitus due to underlying condition, with fat layer exposed Qualifiers: Diabetic foot ulcer location: heel Laterality: right Qualified Code(s): E08.621 - Diabetes mellitus due to underlying condition with foot ulcer; L97.412 - Non-pressure chronic ulcer of right heel and midfoot with fat layer exposed
--- NOTE | 2025-01-12 11:43 | CASEMGMT ---
Social Work- Physician feels that pt is medically ready to discharge. KIP faxed discharge to TCU admissions. KIP called [facility] to update. KIP notified bedside nurse. Pt agreeable to discharge plans to TCU. Plan: TCU; skilled level of care KATEY Zapata
[2025-01-12] MEDS: Insulin Lispro 100 UNIT/ML INSULN.PEN SC (12:17)
[2025-01-12 12:25] LABS: Bedside Glucose 168 mg/dL (74-106)
[2025-01-13 15:20] LABS: Bedside Glucose 180 mg/dL (74-106)
[2025-01-23 15:47] LABS: Pathologist Review Reviewed
== END 2025-01-12 13:12 | disposition skilled nursing facility (03) | DRG 638 ==
LOC: ED 17:57 → MS3 18:24
PROVIDERS: Internal Medicine; Internal Medicine Infectious Disease; Student in an Organized Health Care Education/Training Program; Admitting Provider Internal Medicine; Emergency Provider Emergency Medicine; PCP Internal Medicine; Referring Provider Emergency Medicine
DX: E11.621 Type 2 diabetes mellitus with foot ulcer (principal); R78.81 Bacteremia; Z68.43 Body mass index [BMI] 50.0-59.9, adult; I13.0 Hypertensive heart and chronic kidney disease with heart failure and stage 1 through stage 4 chronic kidney disease, or unspecified chronic kidney disease; L97.412 Non-pressure chronic ulcer of right heel and midfoot with fat layer exposed; E11.22 Type 2 diabetes mellitus with diabetic chronic kidney disease; B95.1 Streptococcus, group B, as the cause of diseases classified elsewhere; B35.1 Tinea unguium; I50.9 Heart failure, unspecified; N18.32 Chronic kidney disease, stage 3b; E11.42 Type 2 diabetes mellitus with diabetic polyneuropathy; E78.00 Pure hypercholesterolemia, unspecified; Z79.4 Long term (current) use of insulin; G47.33 Obstructive sleep apnea (adult) (pediatric); L97.512 Non-pressure chronic ulcer of other part of right foot with fat layer exposed; E11.610 Type 2 diabetes mellitus with diabetic neuropathic arthropathy; I89.0 Lymphedema, not elsewhere classified; E66.813 Obesity, class 3; Z79.01 Long term (current) use of anticoagulants; Z79.82 Long term (current) use of aspirin; Z79.85 Long-term (current) use of injectable non-insulin antidiabetic drugs; Z79.899 Other long term (current) drug therapy; Z86.16 Personal history of COVID-19; Z86.711 Personal history of pulmonary embolism; Z86.718 Personal history of other venous thrombosis and embolism; Z87.891 Personal history of nicotine dependence
CPT/HCPCS: 11042; 36415; 70450; 71046; 73564; 73630; 80048; 80053; 80076; 81001; 82962; 83036; 83605; 83735; 83880; 84100; 84443; 84484; 85025; 85027; 85610; 85730; 87040; 87070; 87077; 87086; 87088; 87149; 87186; 87205; 87449; 87631; 87633; 93005; 94660; 94668; 97162; 97166; 97530; 97535; 99285; A4216; J0696

== ENCOUNTER 2025-01-12 13:33 | Inpatient (IN) | payer MEDICARE, BC, SELFPAY ==
[2025-01-12 13:40] VITALS: BP 118/60; PULSE 87; RESP 16; TEMP 36.8; O2SAT 93
[2025-01-12 13:42] VITALS: BP 114/56; PULSE 79; RESP 20; TEMP 36.9; O2SAT 94
[2025-01-12 17:15] LABS: Bedside Glucose 101 mg/dL (74-106)
[2025-01-12] MEDS: Gabapentin 600 MG Tablet PO (17:49)
[2025-01-12] MEDS: guaiFENesin 10 ML UDC (200MG/10ML) PO (17:49)
[2025-01-12] MEDS: Rivaroxaban 20 MG Tablet PO (17:50)
[2025-01-12 18:05] VITALS: PULSE 94; RESP 21
[2025-01-12] MEDS: Albuterol 2.5 MG/3 ML VIAL.NEB. INHALATION (18:05)
[2025-01-12 18:51] VITALS: BMI 52.5
--- NOTE | 2025-01-12 21:08 | HP.PCM_ITS ---
HPI - General General Date of Admission: 01/12/25 Date of Service: 01/12/25 Chief Complaint: Here for rehabilitation. HPI Narrative TRINI MEJIAS, is a 69 Male who presents with followin01/08/2025 [facility] ED generalized illness. Fever, malaise, chills, rigors, fever 103. WBC 19. Chest X-ray pneumonia, Levaquin given. 01/08/2025 Admit [facility]. Levaquin iv for pneumonia. Sliding scale insuiln for Diabetes Mellitus II. 01/09/2025 Dr. Cobb recommended Ceftriaxone, Doxycycline for sepsis, group B strep bacteremia 09/14 pneumonia versus infected right foot wound. 01/09/2025 Confused. Lasix 40mg IV daily for acute on chronic HFpEF. 01/10/2025 Diabetic foot ulcer with group B strep bacteremia treated with ceftriaxone, doxycycline. Urinary antigens negative for strep, and legionella. 01/11/2025 PT/OT for TCU, patient refusing, CPAP at night. Pneumonia less likely. 01/12/2025 Feels well, no acute events overnight. Dr. Cobb recommended Cefdinir 300mg bid x 1 week. 01/12/2025 Admit to TCU with debility, here for rehabilitation, strengthening, prior to discharge home with . [facility] Medical History (Updated 01/12/25 @ 21:[address] Edmund Araujo MD) Diabetic ulcer of foot associated with diabetes mellitus due to underlying condition, with fat layer exposed Charcot arthropathy Diabetic foot ulcer Diabetic foot ulcer associated with diabetes mellitus due to underlying condition Stage 3b chronic kidney disease (CKD) Onychomycosis History of deep vein thrombosis (DVT) of lower extremity Diabetic ulcer of toe VTE (venous thromboembolism) Dyslipidemia Diabetes mellitus type 2 with complications, uncontrolled Morbid obesity with BMI of 45.0-49.9, adult GRETCHEN treated with BiPAP Morbid obesity Former tobacco use BPH (benign prostatic hyperplasia) HTN (hypertension) Diabetes mellitus Home Medications ?Medication ?Instructions ?Recorded ?Last Taken ?Type atorvastatin 20 mg tablet 20 mg PO QHS cholesterol 02/21/22 History furosemide 40 mg tablet 80 mg PO DAILY diuretic 08/1302/22/22 History rivaroxaban 20 mg tablet (Xarelto) 20 mg PO DINNER blo od thinner 03/23/16 02/21/22 History doxazosin 4 mg tablet 4 mg PO QHS blood pressure 0 04/03/20 02/21/22 History insulin lispro 100 unit/mL 20 unit subcut BREAKFAST di abetes 02/23/22 02/22/22 History subcutaneous pen insulin lispro 100 unit/mL 20 unit subcut LUNCH diabet es 02/23/22 02/22/22 History subcutaneous pen gabapentin 600 mg tablet 600 mg PO TIDCM Nerve Pain 0 02/24/22 Unknown History insulin glargine-yfgn 100 unit/mL 50 unit (0.5 mL) sub cut QHS dm #0 04/10/22 Unknown Rx (3 mL) subcutaneous pen mL insulin lispro 100 unit/mL 20 unit (0.2 mL) subcut DIN NER dm 04/10/22 Unknown Rx subcutaneous pen (Humalog KwikPen #0 mL (U-100) Insulin) aspirin 81 mg capsule 81 mg PO DAILY heart health 08/16/22 Unknown History calcium carbonate (Tums) 200 mg PO BID PRN Heartburn 08/16/22 Unknown History dulaglutide 3 mg/0.5 mL 3 mg subcut QWEEK dm 3 Unknown History subcutaneous pen injector (Trulicity) hydrocodone-acetaminophen 5-325mg 1 tab PO Q8H PRN Fei n 08/16/22 Unknown History 5mg-325mg zinc 50 mg capsule 50 mg PO DAILY supplement Unknown History losartan 100 mg tablet 100 mg PO DAILY bp 12/10/24 Unknown History metoprolol tartrate 75 mg tablet 75 mg PO BID bp 01/08 Unknown History tizanidine 4 mg tablet 4 mg PO TID PRN PRN low back pain 01/08/25 Unknown History cefdinir 300 mg capsule 300 mg PO BID pneumonia 7 da ys #14 01/12/25 Unknown Rx caps Allergy/AdvReac Type Severity Reaction Status Date / Time Penicillins Allergy Unknown Hives Verified 01/08/25 14:25 erythromycin base AdvReac Nausea Verified 01/08/25 14:25 (Erythromycin Base) Family History Mother Diabetes Heart disease Coagulopathy Father Heart disease CVA (cerebral vascular accident) Parkinsons disease Surgical History History of pyloromyotomy History of total knee arthroplasty Hx of total knee replacement History of vascular surgery Status post creation of pericardial window Hx of laminectomy Social History household members: spouse Smoking Status: Former smoker how long ago did patient quit smoking: Quit 1994, smoked 1 ppd since age 15. alcohol intake: never substance use type: does not use ROS Constitutional Constitutional: Reports weakness; Denies chills, fever(s) or weight gain ENT HEENT: Denies headache(s), nasal congestion or nasal discharge Cardiovascular Cardiovascular: Denies chest pain or palpitations Respiratory/Chest Respiratory/Chest: Denies cough, excessive phlegm production or shortness of breath with exertion Gastrointestinal Gastrointestinal: Denies abdominal pain, nausea or vomiting Genitourinary Genitourinary: Denies dysuria Musculoskeletal Musculoskeletal: Denies joint pain or joint swelling Integumentary Integumentary: Denies rash or wounds Neurologic Neurologic: Denies focal weakness, numbness or tingling Psychiatric Psychiatric: Denies anxiety, auditory hallucinations, depression, homicidal ideation or suicidal ideation Vital Signs Vital Signs Vital Signs: 01/12/25 13:40 01/12/25 13:42 01/12/25 13:53 Temperature 98.3 F 98.4 F Temperature Source Oral Oral Pulse Rate 87 79 Respiratory Rate 16 20 H Respiratory Effort Normal Blood Pressure 118/60 114/56 L Blood Pressure Mean 79 75 Blood Pressure Source Monitor Monitor Blood Pressure Position Semi-Fowlers Semi-Fowlers Blood Pressure Location Right Arm Right Forearm Pulse Ox 93 94 Oxygen Delivery Method Room Air Room Air 01/12/25 18:05 Temperature Temperature Source Pulse Rate 94 Respiratory Rate 21 H Respiratory Effort Blood Pressure Blood Pressure Mean Blood Pressure Source Blood Pressure Position Blood Pressure Location Pulse Ox Oxygen Delivery Method Room Air Weight Weight: 175.994 kg Body Mass Index (BMI) 52.5 Physical Exam Const alert General Appearance: cooperative HEENT normocephalic Eyes PERRL and EOMs intact bilaterally Neck supple, no JVD and no carotid bruits Resp normal respiratory effort, normal air movement and clear to auscultation bilaterally Cardio regular rate and regular rhythm GI normal to inspection, nondistended, normoactive bowel sounds, non-tender and non-distended Extremity normal capillary refill Extremity Narrative: Right hallux dark eschar. General Extremity: Negative for edema Skin no rashes or lesions noted General Skin Exam: no breakdown Psych affect normal Appearance: appropriate Results Lab / Micro Data Labs: Laboratory Results - last 24 hr 01/12/25 16:43: POC Glucose 101 Assessment & Plan Assessment/Plan (1) Debility: (2) Bacteremia due to group B Streptococcus: (3) Encephalopathy: (4) Diabetic foot ulcer: QUALIFIERS: Diabetes mellitus type: type 2 Diabetic foot ulcer location: heel Laterality: right Non-pressure ulcer stage: with fat layer exposed Qualified Code(s): E11.621 - Type 2 diabetes mellitus with foot ulcer; L97.412 - Non-pressure chronic ulcer of right heel and midfoot with fat layer exposed (5) Diabetes mellitus: (6) Essential (primary) hypertension: (7) Benign prostatic hyperplasia: (8) Body mass index (BMI) greater than 50: (9) VTE (venous thromboembolism): (10) Hyperlipidemia: (11) Morbid obesity: (12) Muscle spasm: PLAN: Plan 69 year old male with below past medical history hospitalized for group B strep bacteremia 2/2 infected right diabetic foot ulcer, pneumonia ruled out, admitted to TCU with debility, here for rehabilitation, strengthening, prior to discharge home with . * Debility - PT/OT. * Cognition - ST. * Pain - [place] 5/325mg q8 prn. * Bowel - Miralax 17gm daily, Senna/colace 2 tablets bid, Magnesium citrate 300mL daily prn. * Adult immunization - Administer pneumonia vaccine, covid vaccine, flu vaccine as appropriate. * DVT prophylaxis - on Xarelto. * Shortness of breath - Albuterol 2.5mg neb q2h prn. * Hyperlipidemia - Atorvastatin 20mg qhs. * Indigestion - TUMS 500mg bid prn. * Group B strep bacteremia - Cefdinir 300mg bid x 7 days. * BPH - Doxazosin 4mg qhs. * Chronic HFpEF - Metoprolol 75mg bid, Losartan 100mg daily, Furosemide 80mg daily. * Diabetic polyneuropathy - Gabapentin 600ng tid. * Cough - Robitussin 10mL q4 prn. * Diabetes Mellitus II - Glargine 50 units qhs, Humalog 20 units tid. * VTE - Xarelto 20mg daily. * Muscle spasm - Tizanidine 4mg tid prn. * Zinc deficiency - Zinc 50mg daily.
[2025-01-12 22:51] VITALS: BP 126/62; PULSE 90
[2025-01-12] MEDS: 0.9% Saline Lock 10 ML Syringe IV (22:55)
[2025-01-12 22:56] VITALS: BP 126/62; PULSE 90
[2025-01-12] MEDS: Metoprolol Tartrate 50 MG Tablet 75 MG PO (22:56)
[2025-01-12] MEDS: Atorvastatin Calcium 20 MG Tablet PO (22:57)
[2025-01-12] MEDS: Doxazosin 4 MG Tablet PO (22:57)
[2025-01-12] MEDS: Cefdinir 300 MG Capsule PO (22:58)
[2025-01-12] MEDS: Senna/Docusate Sodium 1 Tablet 2 TABLET PO (22:58)
[2025-01-12] MEDS: Insulin Glargine-YFGN 100 UNIT/ML Pen 50 UNIT SC (23:13)
--- NOTE | 2025-01-13 03:13 | NURSING ---
Patient restless at 0045, 1:1, redirection provided, patient requested to get up, patient assisted up to recliner with x2 assist, patient requested to go to common area, resting quietly in recliner in common area, no c/o voiced.
[2025-01-13 04:45] VITALS: BMI 52.3
[2025-01-13 06:04] LABS: Absolute Lymphocyte Count 1.41 X10^3/uL (0.83-4.51); Absolute Neutrophil Count 8.9 X10^3/uL (2.0-7.7); Basophil# 0.12 X10^3/uL; Eosinophil# 0.55 X10^3/uL; Eosinophils% 4.5 % (0-5); Hematocrit 38.8 % (40-54); Hemoglobin 12.7 g/dL (13.0-16.5); Lymphocyte # 1.41 X10^3/ul (0.83-4.51); Lymphocyte % 11.5 % (19-41); Mean Corp Hgb Conc 32.7 g/dL (32-36); Mean Corpuscular Hgb 29.4 pg (27.0-32.0); Mean Corpuscular Volume 89.8 fL (80-94); Mean Platelet Vol. 9.9 fl (6.2-12.0); Monocyte% 8.2 % (0-10); NRBC Flagged by Analyzer 0 % (0-5); Neutrophil % 72.6 % (47-70); Platelet Count 146 K/mm3 (150-450); RBC Distribution Width CV 13.3 % (11.6-14.6); RBC Distribution Width SD 43.8 fl (35.1-43.9); Red Blood Count 4.32 M/mm3 (4.6-6.2); White Blood Count 12.3 K/mm3 (4.4-11.0)
[2025-01-13 06:28] LABS: Anion Gap 12 (5-15); BUN 32 mg/dL (4-19); BUN/Creat Ratio 20.2 RATIO (10-20); Calcium,Total 8.8 mg/dL (7.6-11.0); Carbon Dioxide 21.4 mmol/L (21.0-32.0); Chloride 104 mmol/L (98-108); Creatinine, Serum 1.56 mg/dL (0.70-1.20); EST Glomerular Filtration Rate 47 (>60); Glucose 167 mg/dL (70-99); Sodium Level 137 mmol/L (133-145)
[2025-01-13 06:31] LABS: Bedside Glucose 160 mg/dL (74-106)
[2025-01-13 08:33] VITALS: BP 125/68; PULSE 85; RESP 16; TEMP 36.8; O2SAT 92
[2025-01-13] MEDS: Gabapentin 600 MG Tablet PO ×3 (08:35→18:22)
[2025-01-13] MEDS: Insulin Lispro 100 UNIT/ML INSULN.PEN 20 UNIT SC ×3 (08:35→17:15)
[2025-01-13] MEDS: Polyethylene Glycol 3350 17 GM PACKET PO (08:36)
[2025-01-13 08:37] VITALS: PULSE 85
[2025-01-13] MEDS: Furosemide 80 MG Tablet PO (08:37)
[2025-01-13] MEDS: Cefdinir 300 MG Capsule PO ×2 (08:37→22:57)
[2025-01-13] MEDS: Metoprolol Tartrate 50 MG Tablet 75 MG PO ×2 (08:37→22:59)
[2025-01-13] MEDS: Zinc Sulfate 50 mg zinc (220 mg) ORAL capsule PO (08:38)
[2025-01-13] MEDS: Senna/Docusate Sodium 1 Tablet 2 TABLET PO ×2 (08:38→22:57)
[2025-01-13] MEDS: Losartan Potassium 100 MG Tablet PO (08:38)
--- NOTE | 2025-01-13 09:38 | PHA.CONS_ITS ---
Documented by User: Shaylee Escamilla 01/13/25 09:57 TCU RX Drug Regimen Review Subjective/Objective Subjective/Objective Subjective: TCU Admission. 69 YOM presented to the ER with generalized weakness. Hospitalized for group B strep bacteremia 2/2 infected right diabetic foot ulcer, pneumonia ruled out. Admitted to TCU with debility for strengthening and rehabilitation. Objective: Allergies Penicillins Allergy (Unknown, Verified 01/08/25 14:25) Hives erythromycin base (Erythromycin Base) Adverse Reaction (Verified 01/08/25 14:25) Nausea Current Medications Generic Name Dose Route Start Last Admin Trade Name Freq PRN Reason Stop Dose Admin Hydrocodone Bitart/Acetaminophen 1 tablet 01/12/25 14:38 Hydrocodone Bitartrate/Apap 5/325 Tablet PO Q8H PRN Pain Score 1-10 Albuterol Sulfate 2.5 mg 01/12/25 17:01 01/12/25 18:05 Albuterol 2.5 Mg/3 Ml Vial.Neb. INHALATION 2.5 mg Q2H PRN PRN Administration DYSPNEA/WHEEZING/SOB Atorvastatin Calcium 20 mg 01/12/25 22:00 01/12/25 22:57 Atorvastatin Calcium 20 Mg Tablet PO 20 mg QHS ANI Administration Calcium Carbonate 500 mg 01/12/25 14:38 Calcium Carbonate 500 Mg Tablet PO BID PRN HEARTBURN Cefdinir 300 mg 01/12/25 22:00 01/13/25 08:37 Cefdinir 300 Mg Capsule PO 01/19/25 22:01 300 mg BID ANI Administration Doxazosin Mesylate 4 mg 01/12/25 22:00 01/12/25 22:57 Doxazosin 4 Mg Tablet PO 4 mg QHS ANI Administration Protocol Furosemide 80 mg 01/13/25 10:00 01/13/25 08:37 Furosemide 80 Mg Tablet PO 80 mg DAILY ANI Administration Protocol Gabapentin 600 mg 01/12/25 17:45 01/13/25 08:35 Gabapentin 600 Mg Tablet PO 600 mg TIDCM ANI Administration Guaifenesin 10 ml 01/12/25 17:01 01/12/25 17:49 Guaifenesin 10 Ml Udc (200mg/10ml) PO 10 ml Q4H PRN PRN Administration COUGH/CONGESTION Sodium Chloride 250 mls @ 15 mls/hr 01/12/25 13:50 IV .[id number] PRN Saline Flush Sodium Chloride 250 mls @ 15 mls/hr 01/12/25 13:50 IV .[id number] PRN Additional IVPB Infusion Insulin Glargine 50 unit 01/12/25 22:00 01/12/25 23:13 Insulin Glargine-Yfgn 100 Unit/Ml Pen SC 50 unit QHS ANI Administration Insulin Human Lispro 20 unit 01/13/25 08:00 01/13/25 08:35 Insulin Lispro 100 Unit/Ml Insuln.Pen SC 20 u BREAKFAST ANI Administration Insulin Human Lispro 20 unit 01/13/25 12:00 Insulin Lispro 100 Unit/Ml Insuln.Pen SC LUNCH ANI Insulin Human Lispro 20 unit 01/12/25 17:00 01/12/25 17:43 Insulin Lispro 100 Unit/Ml Insuln.Pen SC Not Given [facility] Losartan Potassium 100 mg 01/13/25 10:00 01/13/25 08:38 Losartan Potassium 100 Mg Tablet PO 100 mg DAILY ANI Administration Protocol Magnesium Citrate 300 ml 01/12/25 21:31 Magnesium Citrate 300 Ml PO DAILY PRN PRN Constipation Metoprolol Tartrate 75 mg 01/12/25 22:00 01/13/25 08:37 Metoprolol Tartrate 50 Mg Tablet PO 75 mg BID ANI Administration Polyethylene Glycol 17 gm 01/13/25 10:00 01/13/25 08:36 Polyethylene Glycol 3350 17 Gm Packet PO 17 gm DAILY ANI Administration Rivaroxaban 20 mg 01/12/25 17:00 01/12/25 17:50 Rivaroxaban 20 Mg Tablet PO 20 mg [facility] Administration Senna/Docusate Sodium 2 tablet 01/12/25 22:00 01/13/25 08:38 Senna/Docusate Sodium 1 Tablet PO 2 tablet BID ANI Administration Sodium Chloride 10 - 40 ml 01/12/25 13:50 01/12/25 22:55 0.9% Saline Lock 10 Ml Syringe IV 10 ml UD PRN Administration SALINE FLUSH Tizanidine HCl 4 mg 01/12/25 15:10 Tizanidine Hcl 2 Mg Tablet PO TID PRN PRN low back pain Tuberculin PPD 0.1 ml 01/13/25 10:00 Tuberculin,Purif.Prot.Deriv. 50 Tu/Ml Vial ID 01/13/25 10:01 X1 ONE Tuberculin PPD 0.1 ml 01/20/25 10:00 Tuberculin,Purif.Prot.Deriv. 50 Tu/Ml Vial ID 01/20/25 10:01 X1 ONE Zinc Sulfate 50 mg 01/13/25 10:00 01/13/25 08:38 Zinc Sulfate 50 Mg Zinc (220 Mg) Oral Capsule PO 50 mg DAILY ANI Administration Problem List Hyperlipidemia (Acute) Morbid obesity (Acute) Essential (primary) hypertension (Acute) Bacteremia due to group B Streptococcus (Acute) Diabetic foot ulcer (Acute) VTE (venous thromboembolism) (Acute) Body mass index (BMI) greater than 50 (Acute) Benign prostatic hyperplasia (Acute) Muscle spasm (Acute) Diabetes mellitus (Acute) Debility (Acute) Vital Signs Temp Pulse Resp BP Pulse Ox O2 Del Method 98.2 F 85 16 125/68 H 92 Room Air 01/13/25 08:33 01/13/25 08:37 01/13/25 08:33 01/13/25 08:33 01/13/25 08:33 01/13/25 08:33 Oxygen Delivery Method Room Air Weight: 175.223 kg Body Mass Index (BMI) 52.3 Sodium 137 mmol/L (133-145) 01/13/25 05:14 Potassium 4.0 mmol/L (3.3-5.1) 01/13/25 05:14 Chloride 104 mmol/L (98-108) 01/13/25 05:14 Carbon Dioxide 21.4 mmol/L (21.0-32.0) 01/13/25 05:14 Anion Gap 12 (5-15) 01/13/25 05:14 BUN 32 mg/dL (4-19) H 01/13/25 05:14 Creatinine 1.56 mg/dL (0.70-1.20) H 01/13/25 05:14 Est GFR (MDRD) Non-Af 47 (>60) L 01/13/25 05:14 BUN/Creatinine Ratio 20.2 RATIO (10-20) H 01/13/25 05:14 Glucose 167 mg/dL (70-99) H 01/13/25 05:14 Assessment/Plan: 1. Pain: [place] 5/325mg 1T PO Q8H PRN pain 1-10. No doses given. Please continue to monitor for increased pain and PRN usage. 2. Bowel: Miralax 17gm PO daily, senna/docusate 2T PO BID and magnesium citrate 300mL PO daily PRN constipation. No PRN doses given. Please continue to monitor for PRN usage and constipation. 3. Group B strep bacteremia: cefdinir 300mg PO BID thru 01/19/25. Please continue to monitor for S/S of infection, renal function, diarrhea and stool discolor ation. 4. Chronic HFpEF: metoprolol tartrate 75mg PO BID, losartan 100mg PO daily and furosemide 80mg PO daily. Please continue to monitor BP (last 125/68), HR (last 85), renal function, potassium (last 4mmol/L), swelling. 5. VTE: rivaroxaban 20mg PO dinner. Please continue to monitor for S/S of bleeding, hemoglobin (last 12.7g/dL) and renal function. 6. Diabetes mellitus II: insulin glargine 50units SC QHS and insulin lispro 20units SC TIDCM. Please continue to monitor for S/S of hypoglycemia, glucose (last 160mg/dL), hemoglobin A1c (last 9% 01/06/25). 7. Hyperlipidemia: atorvastatin 20mg PO QHS. Please consider ordering a lipid panel as there is no panel in the chart. Thanks. Please continue to monitor LFTs (last WNL 01/09/25) and muscle pain. 8. Diabetic polyneuropathy: gabapentin 600mg PO TIDCM. Please continue to monitor for S/S of pain, renal function (CrCl 72mL/min), confusion and falls/fractures (BEERs). 9. Shortness of breath: albuterol 2.5mg nebulized solution Q2H PRN d yspnea/wheezing/SOB. Resident has used 1 dose so far. Please continue to monitor for PRN usage, HR, dyspnea/wheezing/SOB. 10. Cough: guaifenesin 10mL PO Q4H PRN cough. Resident has had 1 dose so far. Please continue to monitor for PRN usage and cough. 11. Indigestion: calcium carbonate 500mg PO BID PRN indigestion. No PRN doses given. Please continue to monitor for indigestion, PRN usage and calcium (last 8.8mg/dL). 12. Muscle spasm: tizanidine 4mg PO TID PRN low back muscle spasm. No PRN doses given. Please continue to monitor for PRN usage and muscle spasm. 13. Zinc deficiency: zinc 50mg PO daily. Please continue to monitor. Assessment/Plan for indications treated with psychotropic medications: Resident is not prescribed scheduled or prn psychotropic medications at the time of this drug regimen review Medical chart and medication regimen reviewed. The following medication irregularities or issues were identified: 1. Atorvastatin 20mg PO QHS. Please consider ordering a lipid panel as there is no panel in the chart. Thanks. Date Date of Note: 01/13/25 Documented by User: Dr. Edmund Araujo MD 01/13/25 10:01 TCU RX Drug Regimen Review Provider Comments Provider responsibility Provider Comments to Recommendations by Pharmacy Agree
--- NOTE | 2025-01-13 10:23 | CASEMGMT ---
Social Work SW met with patient to complete initial assessment. Pt known to this worker from previous stay. Verified contacts. Patient confirmed code status as full code. Educated to Medicare benefit and copay coverage. Pt's goal is to return home with . SW will continue to follow for DC planning. Qing Rascon MSW [employer]
[2025-01-13] MEDS: Tuberculin,Purif.prot.deriv. 50 TU/ML Vial 0.1 ML ID (12:17)
[2025-01-13 12:46] LABS: Bedside Glucose 135 mg/dL (74-106)
[2025-01-13 15:43] VITALS: BMI 52.4
[2025-01-13] MEDS: Rivaroxaban 20 MG Tablet PO (17:13)
[2025-01-13 17:48] LABS: Bedside Glucose 100 mg/dL (74-106)
--- NOTE | 2025-01-13 21:03 | NURSING ---
Patient yellinh out Hey!, immediately assessed, attempting to get out of chair and see family, becomes agitated when assessing cognition AEB When asking location patient states why would you ask me that?. Patient looks at this nurse calling this nurse a smart ass asks second nurse can I hit her? while lifting hand. Patient offered assist to bed, accepts offer, repeats I should hit you. Able to redirect, repositioned for comfort, personal alarm in place, personal items within reach. No further requests at this time.
[2025-01-13] MEDS: Doxazosin 4 MG Tablet PO (22:58)
[2025-01-13] MEDS: Atorvastatin Calcium 20 MG Tablet PO (22:58)
[2025-01-13 22:59] VITALS: BP 113/73; PULSE 84
[2025-01-13] MEDS: Insulin Glargine-YFGN 100 UNIT/ML Pen 50 UNIT SC (23:01)
[2025-01-13 23:38] LABS: Bedside Glucose 103 mg/dL (74-106)
[2025-01-14 00:02] LABS: Bedside Glucose 97 mg/dL (74-106)
[2025-01-14 06:24] LABS: Cholesterol 105 mg/dL (<=200); High Density Lipoprotein 21 mg/dL; Low Density Lipoprotein Calc. 56 mg/dL; Triglycerides 139 mg/dL; Very Low Density Lipoprotein 28 mg/dL (5-40); cholesterol:hdl ratio screen 5.02
--- NOTE | 2025-01-14 06:43 | NURSING ---
Confusion and agitation continue at times despite non-pharmacologic interventions, restless at times, attempts self transfers. Personal alarm in place. Yells out despite call light in reach, verbalizes desire to hit staff at times. Alert to self. Written communication left for Dr. Araujo review this AM.
[2025-01-14 06:51] LABS: Bedside Glucose 145 mg/dL (74-106)
--- NOTE | 2025-01-14 08:58 | NURSING ---
Called to [facility] melissa, confirmation #[phone]. Call from delivery staff that they plan to be here w/i the next hour.
[2025-01-14] MEDS: Losartan Potassium 100 MG Tablet PO (09:17)
[2025-01-14] MEDS: Furosemide 80 MG Tablet PO (09:17)
[2025-01-14] MEDS: Polyethylene Glycol 3350 17 GM PACKET PO (09:18)
[2025-01-14] MEDS: Zinc Sulfate 50 mg zinc (220 mg) ORAL capsule PO (09:19)
[2025-01-14] MEDS: Senna/Docusate Sodium 1 Tablet 2 TABLET PO ×2 (09:19→22:07)
[2025-01-14] MEDS: Cefdinir 300 MG Capsule PO ×2 (09:19→22:07)
[2025-01-14] MEDS: Insulin Lispro 100 UNIT/ML INSULN.PEN 20 UNIT SC ×2 (09:20→12:06)
[2025-01-14] MEDS: Gabapentin 600 MG Tablet PO ×3 (09:24→17:14)
[2025-01-14 09:25] VITALS: BP 116/60; PULSE 87
[2025-01-14] MEDS: Metoprolol Tartrate 50 MG Tablet 75 MG PO ×2 (09:25→22:06)
[2025-01-14 11:38] LABS: Bedside Glucose 195 mg/dL (74-106)
--- NOTE | 2025-01-14 12:53 | WOUNDNOTE ---
wound photo: right great toe
--- NOTE | 2025-01-14 12:54 | WOUNDNOTE ---
wound photo: right lateral heel
--- NOTE | 2025-01-14 12:55 | WOUNDNOTE ---
skin photo: right lower leg
--- NOTE | 2025-01-14 13:00 | NURSING ---
Profile Trimmer Note; Activity Asset: Triston Woodson is independent in his choice of daily activities. His will visit and bring him items he may need or want. He has his smartphone, he will read the paper and welcomes visits from the application lead. Staff will remind him of weekly activities and respect his right to say no.
--- NOTE | 2025-01-14 15:49 | NURSING ---
new order for ativan 0.5mg tablet every 4 hours as needed.
[2025-01-14 16:43] LABS: Bedside Glucose 75 mg/dL (74-106)
[2025-01-14 16:45] VITALS: PULSE 79; RESP 18; O2SAT 91
[2025-01-14] MEDS: Rivaroxaban 20 MG Tablet PO (17:10)
[2025-01-14 17:22] LABS: Bedside Glucose 95 mg/dL (74-106)
[2025-01-14 21:55] LABS: Bedside Glucose 153 mg/dL (74-106)
[2025-01-14] MEDS: HYDROcodone Bitartrate/Apap 5/325 Tablet PO (22:05)
[2025-01-14 22:06] VITALS: BP 151/73; PULSE 80
[2025-01-14] MEDS: Insulin Glargine-YFGN 100 UNIT/ML Pen 50 UNIT SC (22:06)
[2025-01-14] MEDS: Doxazosin 4 MG Tablet PO (22:07)
[2025-01-14] MEDS: Atorvastatin Calcium 20 MG Tablet PO (22:07)
[2025-01-15] MEDS: LORazepam 0.5 MG Tablet PO ×2 (05:37→10:01)
--- NOTE | 2025-01-15 05:56 | NURSING ---
Addendum entered by Chuck Morillo 01/15/25 06:40: Patient rep/spouse Shabana calls this nurse, states spoke with patient on phone, patient confused asking for mother's phone number, paranoid, spouse notified of Ativan administration to assist with agitation and agreeable. Spouse updated on aggression at times and agitation. This nurse inquired about patient cognition and confusion, spouse reports patient has been forgetful with moments of confusion at home since detention. Spouse requesting for patient to discharge home 01/16/25 with daughter assistance, states it's just better for his confusion to be back home. Confidential voicemail left for SW per spouse request. Spouse expresses thanks for update and patient care. Original Note: BOTANY TEACHER reports patient agitated, patient immediately assessed, observed sitting on edge of bed, patient agitated and aggressive at this time AEB furrowed brow, loud tone of voice, states take me downstairs to my bed, attempt to reorient, patient raises voice stop bull shitting with me, I know where I am. Patient unable to state correct location, refuses to answer month/year. Offered toileting, food, fluids, chair, repositioning in bed, common area, walk around unit, patient declines I'm going downstairs. Patient attempts to stand from bed, but unable to maintain balance and sits back on bed, raising voice toward staff, throws walker forward toward staff. 1:1 provided, BOTANY TEACHER and second nurse present in room to assist, [employer]PER[employer]OR calls security for assistance. Patient agrees to lay down in bed and calm with security presence, repositioned for comfort. PRN Ativan as ordered for restlessness and agitation. Pressure alarm in place and functioning properly. Personal cell phone provided and within reach to patient, encouraged to speak with for comfort. Bed in lowest position. Denies further requests. Call light in reach.
[2025-01-15 06:37] LABS: Bedside Glucose 155 mg/dL (74-106)
--- NOTE | 2025-01-15 06:45 | NURSING ---
Written communication left for Dr. Araujo regarding patient agitation and spouse request for discharge on 01/15/25
--- NOTE | 2025-01-15 09:32 | CASEMGMT ---
Addendum entered by Qing Rascon 01/15/25 14:39: SW phoned to update on below information. disagrees with canceling DC as she believes pt will do better at home. stated she spoke with pt and pt is adamant about returning home and does not want to change that plan. SW expressed understanding and validated frustrations. SW explained the concern is pt is not ready to DC home, there was a change in condition and wants to prevent any future issues with returning home, that could cause a rehospitalization. remaining adamant on pt returning home as planned on 01/16. SW confirmed dtr works full-time and will only be staying with pt/ for the weekend. SW requested again to send list of caregivers to the to review and see if they can afford additional assistance. agreed and provided email address. SW sent via email. stated she was notified by nursing that Dr ordered additional tests today, and will await those results. SW agreed, and Dr. Araujo can call this evening to review results and discuss DC recommendations. agreeed. - SW left written communication to Dr. Araujo. - [facility] can accept with SOC 01/19 Addendum entered by Qing Rascon 01/15/25 11:36: SW spoke with pt while sitting in the central lounge to discuss DC date and plans. Pt was upset and kept reiterating he was going to leave today; questioning why he cannot leave today. SW attempted to explain dtr is unavailable tonight and will transport pt at home after work on 01/16. Pt remained slightly agitated, but then wanted to sleep and stop talking to this worker. SW allowed pt to rest. - JULIUS Wellington, followed up with this worker after completing pt's therapy session with concerns for DC home. PT reported pt was shaky, could not complete the steps, needed to sit down and unsteady with walking. Prior to session, pt also had a large incontinence episode in the chair in the central lounge and needed assistance from wrapper sizer for the episode. SW noted pt's is home yesterday and today with her own bowel issues. - KIP followed up with Dr. Araujo with above and he stated to cancel the DC. SW to follow up with . Dtr is not listed in chart and cannot contact. Original Note: Social Work SW received communications from multiple staff that pt is agitated and restless at night, and is requesting to take pt home to assist with pt returning to his environment, reducing agitation. - KIP spoke with IDT to collaborate on recommendations for Dr. Therapy states pt is functioning well and doesn't need physical assistance, but still CGA and not independent. ST recommends 24/7 supervision and to complete meds/finances. Dr. Araujo reviewed pt's chart and past visit in 2021, noting hospital confusion at that time. Dr agrees pt is physically functioning well, but recommending follow up with PCP or neurologist for possible underlying Dementia, and to ensure dtr can assist pt/ at home. - SW phoned to discuss DC request. confirmed she would like pt to DC home 01/16 at 1700 as dtr is unavailable this evening and works tomorrow. SW explored pt's needs and caretakers for pt in the home. stated dtr will be able to assist, though did confirm dtr does work. SW offered for and dtr to attend therapy training prior to DC. denied as dtr works and does not have the availability to attend. also stated she has been under the weather yesterday and today which is why she has not visited. stated pt was able to care for himself in the home prior and noted the pt has lift chair's at home. SW expressed understanding but explained although pt is functioning well, he still needs 24/7 supervision, ie. cannot be in the kitchen and pt in the living room, as he is impulsive and still needs that SBA-CGA for all tasks. Pt does need minimal assist with toileting and bathing. is already completing meds, finances, laundry and meals. SW offered to provide resources for caregivers to hire for the times their dtr is working and/or to assist in the home. accepting of resources, but intends to have dtr solely assist. SW offered to coordinate skilled HHC. agreed and requested [facility] whom pt was active with prior. SW to coordiante. Inquired about any DME needs. denied. confirmed dtr to transport at [place]. - IDT updated. Phone referral to [facility] PT/OT/ST/SN/W. Plan: DC home with and dtr assistance 01/16, [facility] PT[facility]OT/ST/SN/SW Qing Rascon SAP ANALYST OLERICULTURIST
[2025-01-15 09:50] VITALS: BP 127/67; PULSE 84; RESP 16; TEMP 36.8; O2SAT 92
[2025-01-15 10:00] VITALS: BP 127/67; PULSE 84
[2025-01-15] MEDS: Zinc Sulfate 50 mg zinc (220 mg) ORAL capsule PO (10:00)
[2025-01-15] MEDS: Metoprolol Tartrate 50 MG Tablet 75 MG PO ×2 (10:00→21:24)
[2025-01-15] MEDS: Cefdinir 300 MG Capsule PO ×2 (10:00→21:25)
[2025-01-15] MEDS: Gabapentin 600 MG Tablet PO ×2 (10:00→17:40)
[2025-01-15] MEDS: Senna/Docusate Sodium 1 Tablet 2 TABLET PO ×2 (10:00→21:25)
[2025-01-15] MEDS: Polyethylene Glycol 3350 17 GM PACKET PO (10:01)
[2025-01-15] MEDS: Losartan Potassium 100 MG Tablet PO (10:01)
[2025-01-15] MEDS: Furosemide 80 MG Tablet PO (10:01)
[2025-01-15] MEDS: Insulin Lispro 100 UNIT/ML INSULN.PEN 20 UNIT SC ×2 (10:06→17:43)
[2025-01-15 10:56] LABS: Bedside Glucose 204 mg/dL (74-106)
[2025-01-15 11:15] VITALS: BP 111/70; PULSE 77; RESP 18; TEMP 36.2; O2SAT 92
--- NOTE | 2025-01-15 11:26 | EKG12_ITS ---
Test Reason : CP Blood Pressure : */* mmHG Vent. Rate : 77 BPM Atrial Rate : 77 BPM P-R Int : 176 ms QRS Dur : 110 ms QT Int : 410 ms P-R-T Axes : 59 -57 46 degrees QTcB Int : 463 ms Normal sinus rhythm Left axis deviation Low voltage QRS Incomplete left bundle branch block Abnormal ECG Confirmed by PRANAV HORTON, LEIGHA ([id number]), graphics editor KRISTOPHER STEVE ([id number]) on 01/27/2025 8:25:03 AM Referred By: Confirmed By: LEIGHA ROCK MD
--- NOTE | 2025-01-15 11:32 | NURSING ---
Speech therapist notified this nurse that patient was having chest pain, upon assessment patient complains of shortness of breath and slight chest pain. Stat EKG ordered per protocol, vital signs 97.2 temporal, 111/70 L forearm, HR 77, 92% on RA. Previous telephone communication minutes prior Dr. Araujo ordered a chest Xray, KUB, CBC with differential, BMP, UA C&S stat to assess for underlying cause of confusion/agitation.
--- NOTE | 2025-01-15 12:01 | NURSING ---
Patient refusing straight cath for UA, will collect via clean catch.
[2025-01-15 12:03] LABS: Bedside Glucose 179 mg/dL (74-106)
[2025-01-15 12:10] LABS: Absolute Lymphocyte Count 2.15 X10^3/uL (0.83-4.51); Absolute Neutrophil Count 8.2 X10^3/uL (2.0-7.7); Basophil# 0.11 X10^3/uL; Basophil% 0.9 % (0-1); Eosinophil# 0.41 X10^3/uL; Eosinophils% 3.4 % (0-5); Hemoglobin 13.4 g/dL (13.0-16.5); Lymphocyte # 2.15 X10^3/ul (0.83-4.51); Mean Corp Hgb Conc 34.4 g/dL (32-36); Mean Corpuscular Volume 87.4 fL (80-94); Mean Platelet Vol. 9.5 fl (6.2-12.0); Monocyte# 0.78 X10^3/uL; Monocyte% 6.5 % (0-10); NRBC Flagged by Analyzer 0 % (0-5); Neutrophil # 8.22 X10^3/uL (2.7-7.7); Neutrophil % 68.9 % (47-70); Platelet Count 205 K/mm3 (150-450); RBC Distribution Width CV 13.1 % (11.6-14.6); RBC Distribution Width SD 41.5 fl (35.1-43.9); Red Blood Count 4.46 M/mm3 (4.6-6.2); White Blood Count 11.9 K/mm3 (4.4-11.0)
--- NOTE | 2025-01-15 12:38 | MDS.RN ---
Pain assessment for MDS complete.
[2025-01-15 12:52] LABS: Troponin T High Sensitivity 24 ng/L (<=22)
--- NOTE | 2025-01-15 13:05 | RAD_ITS ---
PROCEDURE: CHEST PA AND LATERAL 01/15/2025 REASON FOR EXAM: CONFUSION TECHNIQUE: Frontal and lateral views of the chest. COMPARISON: 01/08/2025 FINDINGS: Lungs: Bilateral perihilar opacities are again noted with prominent vascular markings. Atelectasis suspected in the right upper lobe adjacent to the suprahilar region. Pleura: No pleural effusions, thickening, or pneumothorax. Mild elevation of the left hemidiaphragm. Heart: Normal in size and configuration Mediastinum/Roxane: No widening. No adenopathy. Great vessels: Atherosclerotic and tortuous aorta Bones/soft tissues: Median sternotomy wires. RAD/Chest PA and Lateral IMPRESSION: Similar findings when compared to the previous study. Atelectatic change suspected in the right upper lobe. Suspicion of mild pulmonary venous congestive changes. Can not exclude developing infiltrate in the right lower lobe. Reading Location: [place] [id number]
--- NOTE | 2025-01-15 13:08 | RAD_ITS ---
EXAM: XR Abdomen, 1 View CLINICAL INDICATION: CONFUSION TECHNIQUE: Frontal supine view of the abdomen/pelvis. COMPARISON: No relevant prior studies available. FINDINGS: GASTROINTESTINAL TRACT: Unremarkable. No dilation. ORGANS: 3 mm calculus projecting over the inferior region of the right kidney. BONES/JOINTS: Unremarkable. No acute fracture. RAD/Abdomen Single View IMPRESSION: 3 mm calculus projecting over the inferior region of the right kidney. Reading Location: [facility]
[2025-01-15 13:37] LABS: Bacteria 0 SEEN /hpf (None Seen); Mucous, Urine 0 SEEN /hpf (<or=2+); Red Blood Cells-Urine 0 SEEN /hpf (0-5); Squamous Epithelial Cells - UA 0 SEEN /hpf (0-5); White Blood Cells 0 SEEN /hpf (0-5)
[2025-01-15 13:40] VITALS: O2SAT 92
[2025-01-15 13:40] LABS: Anion Gap 14 (5-15); BUN 31 mg/dL (4-19); Calcium,Total 9.2 mg/dL (7.6-11.0); Carbon Dioxide 19.6 mmol/L (21.0-32.0); Chloride 103 mmol/L (98-108); Creatinine, Serum 1.35 mg/dL (0.70-1.20); EST Glomerular Filtration Rate 56 (>60); Estimated Creatinine Clearance 84.09 ml/min (50-250); Glucose 178 mg/dL (70-99); Potassium 4.4 mmol/L (3.3-5.1); Sodium Level 136 mmol/L (133-145)
[2025-01-15 13:40] LABS: Color, Urine Yellow (Yellow); Glucose, Dipstick Normal (Normal); Ketone-Dipstick Negative (Negative); Leukocyte Esterase-Dipstick Negative /ul (Negative); Nitrite-Dipstick Negative (Negative); Occult Blood-Urine Negative /ul (Negative); Protein-Dipstick Negative (Negative); Specific Gravity, Urine 1.015 (1.002-1.030); Urine Bilirubin Dipstick Negative (Negative); Urine Clarity Clear (Clear); Urine Urobilinogen Normal (Normal)
[2025-01-15 15:37] LABS: Troponin T High Sens 2 HR 22 ng/L (<=22)
[2025-01-15 17:16] LABS: Bedside Glucose 142 mg/dL (74-106)
[2025-01-15 17:20] LABS: Troponin T High Sens 4 HR 20 ng/L (<=22)
[2025-01-15] MEDS: Rivaroxaban 20 MG Tablet PO (17:41)
[2025-01-15] MEDS: tiZANidine HCl 2 MG Tablet 4 MG PO (21:23)
--- NOTE | 2025-01-15 21:23 | DS.PCM_ITS ---
Providers Date of Admission: 01/12/25 Primary Care Physician: Dr. David Kate MD Consultations 01/12/25 20:12 Consult: Onc/Wound/ethical hacker Routine Comment: Reason for Consult:: right foot great toe eschar, right heel abrasion, Reason For Visit: PNEUMONIA & WEAKNESS Diagnosis Discharge Diagnosis (1) Debility: Status: Resolved Code(s): R53.81 - Other malaise (2) Bacteremia due to group B Streptococcus: Status: Acute Code(s): R78.81 - Bacteremia; B95.1 - Streptococcus, group B, as the cause of diseases classified elsewhere (3) Encephalopathy: Status: Resolved Code(s): G93.40 - Encephalopathy, unspecified (4) Diabetic foot ulcer: Status: Acute Code(s): E11.621 - Type 2 diabetes mellitus with foot ulcer; L97.509 - Non-pressure chronic ulcer of other part of unspecified foot with unspecified severity Qualifiers: Diabetic foot ulcer location: heel Diabetes mellitus type: type 2 L aterality: right Non-pressure ulcer stage: with fat layer exposed Qualified Code(s): E11.621 - Type 2 diabetes mellitus with foot ulcer; L97.412 - Non- pressure chronic ulcer of right heel and midfoot with fat layer exposed (5) Diabetes mellitus: Status: Deleted Code(s): E11.9 - Type 2 diabetes mellitus without complications (6) Essential (primary) hypertension: Status: Acute Code(s): I10 - Essential (primary) hypertension (7) Benign prostatic hyperplasia: Status: Inactive Code(s): N40.0 - Benign prostatic hyperplasia without lower urinary tract symptoms (8) Body mass index (BMI) greater than 50: Status: Deleted (9) VTE (venous thromboembolism): Status: Inactive Code(s): I82.90 - Acute embolism and thrombosis of unspecified vein (10) Hyperlipidemia: Status: Acute Code(s): E78.5 - Hyperlipidemia, unspecified (11) Morbid obesity: Status: Acute Code(s): E66.01 - Morbid (severe) obesity due to excess calories (12) Muscle spasm: Status: Resolved Code(s): M62.838 - Other muscle spasm Plan 69 year old male with below past medical history hospitalized for group B strep bacteremia 2/2 infected right diabetic foot ulcer, pneumonia ruled out, admitted to TCU with debility, here for rehabilitation, strengthening, prior to discharge home with . * Debility - PT/OT. * Cognition - ST. * Pain - [place] 5/325mg q8 prn. * Bowel - Miralax 17gm daily, Senna/colace 2 tablets bid, Magnesium citrate 300mL daily prn. * Adult immunization - Administer pneumonia vaccine, covid vaccine, flu vaccine as appropriate. * DVT prophylaxis - on Xarelto. * Shortness of breath - Albuterol 2.5mg neb q2h prn. * Hyperlipidemia - Atorvastatin 20mg qhs. * Indigestion - TUMS 500mg bid prn. * Group B strep bacteremia - Cefdinir 300mg bid x 7 days. * BPH - Doxazosin 4mg qhs. * Chronic HFpEF - Metoprolol 75mg bid, Losartan 100mg daily, Furosemide 80mg daily. * Diabetic polyneuropathy - Gabapentin 600ng tid. * Cough - Robitussin 10mL q4 prn. * Diabetes Mellitus II - Glargine 50 units qhs, Humalog 20 units tid. * VTE - Xarelto 20mg daily. * Muscle spasm - Tizanidine 4mg tid prn. * Zinc deficiency - Zinc 50mg daily. Medications at Discharge Home Medications atorvastatin 20 mg tablet 20 mg PO QHS cholesterol 08/27/15 furosemide 40 mg tablet 80 mg PO DAILY diuretic 08/27/15 rivaroxaban 20 mg tablet (Xarelto) 20 mg PO DINNER blood thinner 03/23/16 doxazosin 4 mg tablet 4 mg PO QHS blood pressure 04/03/20 insulin lispro 100 unit/mL subcutaneous pen 20 unit subcut BREAKFAST diabetes 02/23/22 insulin lispro 100 unit/mL subcutaneous pen 20 unit subcut LUNCH diabetes 02/23/22 gabapentin 600 mg tablet 600 mg PO TIDCM Nerve Pain 02/24/22 insulin glargine-yfgn 100 unit/mL (3 mL) subcutaneous pen 50 unit (0.5 mL) subcut QHS dm #0 mL 04/10/22 insulin lispro 100 unit/mL subcutaneous pen (Humalog KwikPen (U-100) Insulin) 20 unit (0.2 mL) subcut DINNER dm #0 mL 04/10/22 aspirin 81 mg capsule 81 mg PO DAILY heart health 01/04/23 calcium carbonate (Tums) 200 mg PO BID PRN Heartburn 08/16/22 dulaglutide 3 mg/0.5 mL subcutaneous pen injector (Trulicity) 3 mg subcut QWEEK dm 08/16/22 hydrocodone-acetaminophen 5-325mg 5mg-325mg 1 tab PO Q8H PRN Pain 08/16/22 zinc 50 mg capsule 50 mg PO DAILY supplement 08/16/22 losartan 100 mg tablet 100 mg PO DAILY bp 12/10/24 metoprolol tartrate 75 mg tablet 75 mg PO BID bp 01/08/25 tizanidine 4 mg tablet 4 mg PO TID PRN PRN low back pain 01/08/25 cefdinir 300 mg capsule 300 mg PO BID 4 days #8 caps 01/15/25 Hospital Course Operations None Procedures None Summary of Care Provided Minutes Spent on Discharge: 35 Hospital Course: 69 year old male with below past medical history hospitalized for group B strep bacteremia 2/2 infected right diabetic foot ulcer, pneumonia ruled out, admitted to TCU with debility, here for rehabilitation, strengthening, prior to discharge home with . Resident confused while on TCU, security called at night for confusion, agitation, consistent with . Discharge home with and daughter assistance 01/16/2025, [facility] PT/OT/ST/SN/SW. Consider outpatient evaluation for underlying dementia or neurology consultation for underlying dementia. Physical Exam Const alert General Appearance: cooperative HEENT normocephalic Eyes PERRL and EOMs intact bilaterally Neck supple, no JVD and no carotid bruits Resp normal respiratory effort, normal air movement and clear to auscultation bilaterally Cardio regular rate and regular rhythm GI normal to inspection, nondistended, normoactive bowel sounds, non-tender and non-distended Extremity normal capillary refill Extremity Narrative: Right hallux dark eschar. General Extremity: Negative for edema Skin no rashes or lesions noted General Skin Exam: no breakdown Psych affect normal Appearance: appropriate Weight / BMI Weight Weight: 175.5 kg Body Mass Index (BMI) 52.4 ABG / Lab / Microbiology Data 01/15/25 12:00 01/15/25 12:00 Laboratory: Laboratory Results - last 24 hr 01/14/25 21:21: POC Glucose 153 H 01/15/25 05:57: POC Glucose 155 H 01/15/25 10:06: POC Glucose 204 H 01/15/25 11:40: POC Glucose 179 H 01/15/25 12:00: WBC 11.9 H, RBC 4.46 L, Hgb 13.4, Hct 39.0 L, MCV 87.4, MCH 30.0, MCHC 34.4 D, RDW Std Deviation 41.5, RDW Coeff of Jak 13.1, Plt Count 205, MPV 9.5, Immature Gran % (Auto) 2.300 H, Neut % (Auto) 68.9, Lymph % (Auto) 18.0 L, Branch % (Auto) 6.5, Eos % (Auto) 3.4, Baso % (Auto) 0.9, Absolute Neuts (auto) 8.2 H, Absolute Lymphs (auto) 2.15, Nucleated RBC % 0, Sodium 136, Potassium 4.4, Chloride 103, Carbon Dioxide 19.6 L, Anion Gap 14, BUN 31 H, C reatinine 1.35 H, Estim Creat Clear Calc 84.09, Est GFR (MDRD) Non-Af 56 L, B UN/Creatinine Ratio 23.0 H, Glucose 178 H, Calcium 9.2, Troponin T High Sens 24 H 01/15/25 13:30: Urine Color Yellow, Urine Clarity Clear, Urine pH 6.0, Ur Specific [place] 1.015, Urine Protein Negative, Urine Glucose (UA) Normal, Urine Ketones Negative, Urine Occult Blood Negative, Urine Nitrite Negative, Urine Bilirubin Negative, Urine Urobilinogen Normal, Ur Leukocyte Esterase Negative, Urine RBC 0 SEEN, Urine WBC 0 SEEN, Ur Squamous Epith Cells 0 SEEN, Urine Bacteria 0 SEEN, Urine Mucus 0 SEEN 01/15/25 14:36: Troponin T Hi Sens 2 Hr 22 01/15/25 16:50: Troponin T Hi Sens 4Hr 20 01/15/25 16:57: POC Glucose 142 H Radiography Diagnostic Testing: Radiology Impression Chest X-Ray 01/15/25 13:05 IMPRESSION: Similar findings when compared to the previous study. Atelectatic change suspected in the right upper lobe. Suspicion of mild pulmonary venous congestive changes. Can not exclude developing infiltrate in the right lower lobe. Reading Location: [place] [id number] KUB X-Ray 01/15/25 13:08 IMPRESSION: 3 mm calculus projecting over the inferior region of the right kidney. Reading Location: [facility] D/C Instructions Discharge Diet: No restrictions Discharge Activity: Return to Normal Activity, May Shower and Use Walker Weight Bearing Status: Weight bearing as tolerated Call your doctor if you observe: Fever of 101 or Higher, Inability to urinate, Inability to have a bowel movement, Shortness of breath, Dizziness, Fainting spells, Swelling in the ankles, Chest pain and Uncontrolled pain DC O2, CPAP, BIPAP Needs Home O2 Discharge instructions: No Additional Instructions: Discharge home with and daughter assistance 01/16/2025, [facility] PT/OT/ST/SN/SW. Consider outpatient evaluation for underlying dementia or neurology consultation for underlying dementia. Meaningful Use Info Meaningful Use Meaningful Use Diagnoses (Choose all that apply): None applicable Ischemic Stroke Statin Dosing Therapy Reference: STATIN DOSE THERAPY REFERENCE: * Patients > 75 years receive moderate or high dose statin therapy. * Patients 75 years or YOUNGER should receive HIGH intensity statin dose unless contraindicated. You will be required to document reason for non-treatment if statin daily dose does not meet guidelines. HIGH DOSE STATIN THERAPY DAILY Atorvastatin > than or = to 40 mg Rosuvastatin > than or = to 20 mg Amlodipine + Atorvastatin > than or = to 2.5/40 mg Ezetimibe + Simvastatin 10/80 mg Simvastatin 80mg Discharge Plan Admission Admit Date/Time: 01/12/25 13:33 Primary Reason for Your Visit: Debility. Attending Provider: Edmund Araujo Chi Primary Care Provider: David Kate Instructions Additional Instructions / Restrictions: Discharge home with and daughter assistance 01/16/2025, [facility] PT/OT/ST/SN/SW. Consider outpatient evaluation for underlying dementia or neurology consultation for underlying dementia. Discharge Orders/Prescriptions Prescriptions: New cefdinir 300 mg Capsule 300 mg PO BID 4 Days Qty: 8 0RF Continued furosemide 40 MG tablet 80 mg PO DAILY Patient Comments: diuretic atorvastatin 20 MG tablet 20 mg PO QHS Patient Comments: reduce cholesterol Xarelto 20 MG tablet 20 mg PO DINNER Patient Comments: BLOOD THINNER doxazosin 4 MG tablet 4 mg PO QHS insulin lispro 100 unit/mL Insulin Pen 20 unit SUBCUT BREAKFAST insulin lispro 100 unit/mL Insulin Pen 20 unit SUBCUT LUNCH gabapentin 600 MG tablet 600 mg PO TIDCM insulin glargine-yfgn 100 unit/mL (3 mL) Insulin Pen 50 unit subcut QHS Qty: 0 0RF insulin lispro [Humalog KwikPen Insulin] 100 unit/mL Insulin Pen 20 unit subcut DINNER Qty: 0 0RF hydrocodone-acetaminophen 5-325 mg Tablet 1 tab PO Q8H PRN (Reason: Pain) calcium carbonate [Tums] 200 mg calcium (500 mg) Tablet,Chewable 200 mg PO BID PRN (Reason: Heartburn) zinc 50 mg Capsule 50 mg PO DAILY Trulicity 3 mg/0.5 mL Pen Injector 3 mg SUBCUT QWEEK Rx Instructions: Fridays aspirin 81 mg Capsule 81 mg PO DAILY losartan 100 mg tablet 100 mg PO DAILY metoprolol tartrate 75 mg tablet 75 mg PO BID tizanidine 4 mg tablet 4 mg PO TID PRN PRN (Reason: low back pain) Discontinued cefdinir 300 mg capsule 300 mg PO BID 7 Days Qty: 14 0RF Referrals / Follow Up: David Kate MD [Primary Care Provider] - Disposition Disposition (needs filled in before D/C Order can be placed): Home Health Service
[2025-01-15 21:24] VITALS: BP 117/77; PULSE 89
[2025-01-15] MEDS: Atorvastatin Calcium 20 MG Tablet PO (21:25)
[2025-01-15] MEDS: Doxazosin 4 MG Tablet PO (21:26)
[2025-01-15] MEDS: Insulin Glargine-YFGN 100 UNIT/ML Pen 50 UNIT SC (21:27)
[2025-01-15 21:29] LABS: Bedside Glucose 146 mg/dL (74-106)
[2025-01-16 06:21] LABS: Bedside Glucose 120 mg/dL (74-106)
[2025-01-16] MEDS: HYDROcodone Bitartrate/Apap 5/325 Tablet PO (06:48)
--- NOTE | 2025-01-16 07:00 | NURSING ---
When getting report from nurse on previous shift, she stated that patient's had called in and that she stated she would not be able to take him home yet. She is unable to care for him at this time.
[2025-01-16 07:50] VITALS: RESP 18
--- NOTE | 2025-01-16 08:44 | CASEMGMT ---
Social Work SW received two VMs from expressing her and their's dtr's concern about pt not being able to complete the steps to get into the home and readiness for DC. SW returned call and discussed plans. inquired if therapy can work with pt on steps again today prior to DC. SW educated that the pt cannot receive therapy on the day of DC. offered to postpone the DC, have therapy treat pt today, invited to attend, and then can determine new DC date. agreed and will attend therapy sessions about 1100 this date. If feels comfortable with DC, pt can DC tomorrow. - KIP updated therapists and IDT. Will continue to follow. Qing Rascon CLOTH SHEARING SUPERVISOR TREE WRAPPER
[2025-01-16] MEDS: Insulin Lispro 100 UNIT/ML INSULN.PEN 20 UNIT SC ×2 (09:22→18:17)
[2025-01-16] MEDS: Gabapentin 600 MG Tablet PO ×3 (09:23→18:38)
[2025-01-16 10:59] VITALS: PULSE 82
[2025-01-16] MEDS: Metoprolol Tartrate 50 MG Tablet 75 MG PO ×2 (10:59→21:27)
[2025-01-16] MEDS: Cefdinir 300 MG Capsule PO ×2 (11:00→21:26)
[2025-01-16] MEDS: Zinc Sulfate 50 mg zinc (220 mg) ORAL capsule PO (11:00)
[2025-01-16] MEDS: Losartan Potassium 100 MG Tablet PO (11:01)
[2025-01-16] MEDS: Furosemide 80 MG Tablet PO (11:01)
[2025-01-16] MEDS: Polyethylene Glycol 3350 17 GM PACKET PO (11:01)
[2025-01-16] MEDS: Senna/Docusate Sodium 1 Tablet 2 TABLET PO ×2 (11:01→21:26)
[2025-01-16 12:13] LABS: Bedside Glucose 168 mg/dL (74-106)
--- NOTE | 2025-01-16 12:51 | CASEMGMT ---
Social Work SW spoke with pt and at bedside to follow up on therapy session. stated pt performed much better today and is comfortable with DC home tomorrow. pt agreeable. Dtr can transport at 1300. - KIP updated IDT and [facility]. - KIP completed BIMS (04/27) and PHQ-2 () for MDS assessment. Plan: DC home with and dtr 01/17, [facility] PT/OT/ST/SN/KIP Rascon CLERK RATING HEEL SANDER RUBBER
[2025-01-16 16:52] LABS: Bedside Glucose 151 mg/dL (74-106)
[2025-01-16] MEDS: Rivaroxaban 20 MG Tablet PO (18:17)
[2025-01-16] MEDS: Atorvastatin Calcium 20 MG Tablet PO (21:25)
[2025-01-16] MEDS: Doxazosin 4 MG Tablet PO (21:26)
[2025-01-16 21:27] VITALS: BP 132/64; PULSE 78
[2025-01-16] MEDS: Insulin Glargine-YFGN 100 UNIT/ML Pen 50 UNIT SC (21:29)
[2025-01-16] MEDS: tiZANidine HCl 2 MG Tablet 4 MG PO (21:34)
[2025-01-16 21:47] LABS: Bedside Glucose 144 mg/dL (74-106)
[2025-01-17 06:20] LABS: Bedside Glucose 114 mg/dL (74-106)
[2025-01-17 06:43] VITALS: PULSE 73; RESP 18; O2SAT 90
[2025-01-17] MEDS: Gabapentin 600 MG Tablet PO ×2 (08:58→11:58)
[2025-01-17] MEDS: Insulin Lispro 100 UNIT/ML INSULN.PEN 20 UNIT SC (08:58)
[2025-01-17] MEDS: HYDROcodone Bitartrate/Apap 5/325 Tablet PO (09:05)
[2025-01-17] MEDS: Cefdinir 300 MG Capsule PO (09:07)
[2025-01-17] MEDS: Senna/Docusate Sodium 1 Tablet 2 TABLET PO (09:07)
[2025-01-17 09:08] VITALS: BP 101/51; PULSE 90
[2025-01-17] MEDS: Metoprolol Tartrate 50 MG Tablet 75 MG PO (09:08)
[2025-01-17] MEDS: Zinc Sulfate 50 mg zinc (220 mg) ORAL capsule PO (09:08)
[2025-01-17] MEDS: Furosemide 80 MG Tablet PO (09:09)
[2025-01-17] MEDS: Losartan Potassium 100 MG Tablet PO (09:10)
[2025-01-17 09:17] VITALS: BP 101/51; PULSE 90; RESP 18; TEMP 36.9; O2SAT 94
[2025-01-17 11:59] LABS: Bedside Glucose 137 mg/dL (74-106)
[2025-01-17 13:22] VITALS: BP 101/51; PULSE 90; RESP 18; TEMP 36.9; O2SAT 94
--- NOTE | 2025-01-23 11:24 | MDS.RN ---
Information for the MDS was obtained from review of the clinical record, interview of resident, staff, and direct observation of resident?s care.
== END 2025-01-17 12:50 | disposition home health service (06) | DRG 638 ==
PROVIDERS: Admitting Provider Family Medicine Geriatric Medicine; PCP Internal Medicine; Visit Provider Family Medicine Geriatric Medicine
DX: E11.621 Type 2 diabetes mellitus with foot ulcer (principal); I13.0 Hypertensive heart and chronic kidney disease with heart failure and stage 1 through stage 4 chronic kidney disease, or unspecified chronic kidney disease; R78.81 Bacteremia; F05 Delirium due to known physiological condition; Z68.43 Body mass index [BMI] 50.0-59.9, adult; I50.32 Chronic diastolic (congestive) heart failure; L97.412 Non-pressure chronic ulcer of right heel and midfoot with fat layer exposed; E11.22 Type 2 diabetes mellitus with diabetic chronic kidney disease; B95.1 Streptococcus, group B, as the cause of diseases classified elsewhere; N18.32 Chronic kidney disease, stage 3b; E11.42 Type 2 diabetes mellitus with diabetic polyneuropathy; E66.01 Morbid (severe) obesity due to excess calories; E11.610 Type 2 diabetes mellitus with diabetic neuropathic arthropathy; M62.838 Other muscle spasm; E78.5 Hyperlipidemia, unspecified; E53.8 Deficiency of other specified B group vitamins; G47.33 Obstructive sleep apnea (adult) (pediatric); Z79.4 Long term (current) use of insulin; N40.0 Benign prostatic hyperplasia without lower urinary tract symptoms; Z87.891 Personal history of nicotine dependence; Z86.718 Personal history of other venous thrombosis and embolism; Z79.899 Other long term (current) drug therapy; Z79.82 Long term (current) use of aspirin; Z79.01 Long term (current) use of anticoagulants; Z79.85 Long-term (current) use of injectable non-insulin antidiabetic drugs
CPT/HCPCS: 36415; 71046; 74018; 80048; 80061; 81001; 82962; 84484; 85025; 87086; 92507; 92523; 93005; 94640; 94668; 97110; 97116; 97162; 97166; 97530; 97535; A4216

== ENCOUNTER → 2025-01-23 | Outpatient (CLI) | payer MEDICARE, BC, SELFPAY ==
[2025-01-23 17:51] LABS: Anion Gap 12 (5-15); BUN 25 mg/dL (4-19); BUN/Creat Ratio 15.9 RATIO (10-20); Calcium,Total 9.4 mg/dL (7.6-11.0); Carbon Dioxide 23.2 mmol/L (21.0-32.0); Chloride 104 mmol/L (98-108); Creatinine, Serum 1.58 mg/dL (0.70-1.20); EST Glomerular Filtration Rate 47 (>60); Glucose 144 mg/dL (70-99); Potassium 4.4 mmol/L (3.3-5.1); Sodium Level 139 mmol/L (133-145)
[2025-01-23 18:55] LABS: Hematocrit 41.3 % (40-54); Hemoglobin 13.4 g/dL (13.0-16.5); Mean Corp Hgb Conc 32.4 g/dL (32-36); Mean Corpuscular Hgb 29.7 pg (27.0-32.0); Mean Corpuscular Volume 91.6 fL (80-94); Platelet Count 305 K/mm3 (150-450); RBC Distribution Width CV 12.7 % (11.6-14.6); RBC Distribution Width SD 42.5 fl (35.1-43.9); Red Blood Count 4.51 M/mm3 (4.6-6.2); White Blood Count 12.1 K/mm3 (4.4-11.0)
[2025-01-23 18:59] LABS: Erythrocyte Sedimentation Rate 33 mm/hr (0-20)
== END | disposition home or self-care (01) ==
PROVIDERS: PCP Internal Medicine; Referring Provider Internal Medicine; Visit Provider Internal Medicine
DX: E11.49 Type 2 diabetes mellitus with other diabetic neurological complication (principal); R78.81 Bacteremia; B95.1 Streptococcus, group B, as the cause of diseases classified elsewhere; Z86.19 Personal history of other infectious and parasitic diseases
CPT/HCPCS: 36415; 80048; 85027; 85652; 86140

== ENCOUNTER 2025-02-04 14:15 | Outpatient (RCR) | payer MEDICARE, BC, SELFPAY ==
[2025-01-11 00:14] VITALS: BP 156/95; PULSE 85; RESP 18; TEMP 36.5; BMI 48.8
[2025-01-21 13:22] VITALS: BP 135/78; PULSE 78; RESP 16; TEMP 36.2; BMI 48.8
--- NOTE | 2025-01-21 14:42 | WC ---
PHOTO RIGHT GREAT TOE 01/21/25
--- NOTE | 2025-01-21 14:44 | WC ---
PHOTO 01/21/25 RIGHT HEEL
--- NOTE | 2025-01-23 13:44 | HP.PCM_ITS ---
History of Present Illness Date of Service: 01/21/25 Chief Complaint: Right heel ulcer and right hallux ulcer History of Wound: This is a 69 year-old male who presented [facility] for evaluation of a right heel ulcer. It started as a a pressure ulcer in February 2022 when he he was in TCU and it healed. It then became a blister right before his Left TKR surgery. He had his left knee replaced 07/14/22 at [facility]. 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 He also has a history of diabetes type II with peripheral polyneuropathy, HTN, lymphedema, hypercholesterolemia and PE that he is on Xerelto. Wound culture obtained on 08/30/22 which are positive for VRE, Kocuria kristinae and Corynebacterium striatum. He will completed the Linezolid. Wound culture obtained 06/20/23 which was positive for Staphylococcus pseudintermediu, Pseudomonas aeruginosa, Corynebacterium minutissiumum, and Anaerobic cocci. He was started on Levaquin and Flagyl. Foot xray 09/27/22 - Osteopenia with diffuse osteoarthritic changes. Diffuse soft tissue swelling with ossification of the distal Achilles tendon. No acute abnormality or evidence of erosive changes. Did undergo updated radiograph of the right foot 11/08/2023 with no noted changes from previous x-ray. This is a recurring ulceration to both distal tuft of the right hallux and posterior lateral heel. He stated both sites had scabbed up and he was previously discharged however scabs have later broken down with re-ulceration. 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 Type 2 diabetes mellitus with foot ulcer Non-pressure chronic ulcer of other part of right foot with fat layer exposed Acute painful diabetic polyneuropathy Chronic ulcer of right heel with fat layer exposed Benign prostatic hyperplasia Diabetic polyneuropathy Hypertension History of pulmonary embolism Lymphedema Spondylosis Nephrolithiasis Diabetic ulcer of foot associated with diabetes mellitus due to underlying condition, with fat layer exposed Charcot arthropathy Diabetic foot ulcer Diabetic foot ulcer associated with diabetes mellitus due to underlying condition Stage 3b chronic kidney disease (CKD) Onychomycosis History of deep vein thrombosis (DVT) of lower extremity Diabetic ulcer of toe VTE (venous thromboembolism) Dyslipidemia Diabetes mellitus type 2 with complications, uncontrolled Morbid obesity with BMI of 45.0-49.9, adult GRETCHEN treated with BiPAP Morbid obesity Former tobacco use BPH (benign prostatic hyperplasia) HTN (hypertension) Diabetes mellitus Home Medications ?Medication ?Instructions ?Recorded ?Last Taken ?Type atorvastatin 20 mg tablet 20 mg PO QHS cholesterol 02/21/22 History furosemide 40 mg tablet 80 mg PO DAILY diuretic 08/1302/22/22 History rivaroxaban 20 mg tablet (Xarelto) 20 mg PO DINNER blo od thinner 03/23/16 02/21/22 History doxazosin 4 mg tablet 4 mg PO QHS blood pressure 0 04/03/20 02/21/22 History insulin lispro 100 unit/mL 20 unit subcut BREAKFAST di abetes 02/23/22 02/22/22 History subcutaneous pen insulin lispro 100 unit/mL 20 unit subcut LUNCH diabet es 02/23/22 02/22/22 History subcutaneous pen gabapentin 600 mg tablet 600 mg PO TIDCM Nerve Pain 0 02/24/22 Unknown History insulin glargine-yfgn 100 unit/mL 50 unit (0.5 mL) sub cut QHS dm #0 04/10/22 Unknown Rx (3 mL) subcutaneous pen mL insulin lispro 100 unit/mL 20 unit (0.2 mL) subcut DIN NER dm 04/10/22 Unknown Rx subcutaneous pen (Humalog KwikPen #0 mL (U-100) Insulin) aspirin 81 mg capsule 81 mg PO DAILY heart health 08/16/22 Unknown History calcium carbonate (Tums) 200 mg PO BID PRN Heartburn 08/16/22 Unknown History dulaglutide 3 mg/0.5 mL 3 mg subcut QWEEK dm 3 Unknown History subcutaneous pen injector (Trulicity) hydrocodone-acetaminophen 5-325mg 1 tab PO Q8H PRN Fei n 08/16/22 Unknown History 5mg-325mg zinc 50 mg capsule 50 mg PO DAILY supplement Unknown History losartan 100 mg tablet 100 mg PO DAILY bp 12/10/24 Unknown History metoprolol tartrate 75 mg tablet 75 mg PO BID bp 01/08 Unknown History tizanidine 4 mg tablet 4 mg PO TID PRN PRN low back pain 01/08/25 Unknown History cefdinir 300 mg capsule 300 mg PO BID 4 days #8 caps 01/15/25 Unknown Rx Allergy/AdvReac Type Severity Reaction Status Date / Time Penicillins Allergy Unknown Hives Verified 01/08/25 14:25 erythromycin base AdvReac Nausea Verified 01/08/25 14:25 (Erythromycin Base) Family History Mother Diabetes Heart disease Coagulopathy Father Heart disease CVA (cerebral vascular accident) Parkinsons disease Surgical History History of total knee arthroplasty Status post lumbar surgery History of pyloromyotomy History of total knee arthroplasty Hx of total knee replacement History of vascular surgery Status post creation of pericardial window Hx of laminectomy Social History household members: spouse Smoking Status: Former smoker how long ago did patient quit smoking: Quit 1994, smoked 1 ppd since age 15. alcohol intake: never substance use type: does not use Vital Signs Vital Signs Vital Signs: Weight Weight: 360 lb Body Mass Index (BMI) 48.8 Physical Exam Const alert, oriented x3, no apparent distress, no limitations and well nourished Constitutional Narrative: The patient's BMI is 48.8. General Appearance: cooperative, comfortable and well developed Orientation / Consciousness: awake, oriented to person, oriented to place and oriented to time Exam Limitations: no limitations HEENT normocephalic and head/scalp atraumatic Head and Scalp: normal to inspection, normocephalic and atraumatic Nose: external nose normal External Ear: external ears normal Eyes EOMs intact bilaterally General Eye: normal appearance of both eyes Resp normal respiratory effort, normal air movement, no retractions and no use of accessory muscles Effort and Inspection: able to speak in complete sentences GI GI Narrative: The abdomen is obese. Extremity no calf tenderness General Extremity: Negative for clubbing or cyanosis Skin Wound Narrative: The ulceration on the patient's right posterolateral heel persists. It appears to be a Gomez grade 1 ulceration. It extends through all layers of the dermis and into the subcutaneous tissues. There is no significant erythema or cellulitis. There is no obvious infection. Ulcer margins are not well beveled. Callus is noted at the periphery of the ulcer. There is a moderate amount of bioburden and nonviable tissue. Dimensions are documented elsewhere. It appears to have diminished slightly in size since last observed. The tip of the patient's right great toe appears markedly changed. The thick, dry, gangrenous cap has sloughed, leaving a minimal residual ulceration with subcutaneous sanguinous staining. This site is nearly healed, with apparent near-total epithelialization. Onychomycosis is noted involving the toenails of the right foot. Neuro oriented x3, CN's II-XII intact bilaterally and moves all extremities Sensorium / Orientation: awake, alert, oriented to person, oriented to place and oriented to time Speech: speech normal Psych Appearance: grossly normal and appropriate Attitude: calm Activity / Motor Behavior: appropriate eye contact Speech: normal speech Mood & Affect: euthymic mood Thought Process: normal thought process Thought Content: normal thought content Attention / Concentration: attention grossly intact Debridement Note Debridement Note Wound debrided: Right postero-lateral heel ulceration Laterality: Right Wound Grade/Stage: Gomez Grade 1 Type of Debridement: Excisional debridement Anesthesia Used: 5% Lidocaine Gel Depth: Down to and including healthy tissue and in the subcutaneous layer Percentage of wound debrided: 100 Instrument Used: 5mm curette, Forceps and - (Scissors) Tissue Removed: Bioburden, residual Magalis, and nonviable tissue; peripheral callus Severity: Fat Layer Exposed Amount of bleeding with debridement: Mild Bleeding Controlled with: Compression and gauze Patient tolerated procedure: Patient tolerated procedure well Post-Debridement Measurements and Additional Note: Post-Debridement Measurements/Treatment - Nurse 1 - General Ulcer Assessment Start: 01/21/25 13:22 Freq: Status: Active Protocol: NELL Activity Type Activity Date Activity User E-sign Co-sign Detail Recorded Client Recorded Date Recorded By Document 01/21/25 13:22 DL [id number] 01/21/25 13:29 DL 01/21/25 13:22 - Today's Visit Information Type of service Follow-up Visit (Physician/PUPPET MAKER ) Arrival Mode Ambulatory, Walker Transfer Assistance None Patient Identification Verified (Name & Yes ) Patient Requires Transmission-Based No Precautions Height and Weight Body Mass Index (BMI) 48.8 BMI Classification Obese Vital Signs Temperature (97.8 F-99.1 F) 97.2 F L Temperature Source Temporal Pulse Rate (60-100) 78 Pulse Location Monitor Respiratory Rate (12-18) 16 Respiratory rate source Observation Blood Pressure (90/60-120/80) 135/78 H Blood Pressure Mean 97 Source Monitor History Since Last Visit- (Skip if this is Patient's initial visit) Have you changed medications since your No last visit? Any new allergies or adverse reactions No Had a fall/change in ADL's that may No increase risk of falls Signs or symptoms of abuse and/or No neglect since last visit Have you been in the hospital since your No last visit? Has dressing in place as prescribed Yes Has compression in place as prescribed Yes Experienced any changes in pain level or No management Pain Scale: 0-10 Numeric Is Patient Pain Free? Yes WC - Nurse 1 - General Ulcer Measurement Start: 01/21/25 13:22 Freq: Status: Active Protocol: Activity Type Activity Date Activity User E-sign Co-sign Detail Recorded Client Recorded Date Recorded By Document 01/21/25 13:22 DL [id number] 01/21/25 13:29 DL 01/21/25 13:22 Wound Center Nurse 1 #7- R GR TOE -Current Size (cm) - Length 0.1 -Current Size (cm) - Width 0.1 -Current Size (cm) - Depth 0.1 -Total Square Cm 0.01 -Photo Taken Yes -Exudate Amt None Present -Wound Margin Distinct, Outline Attached -Granulation Amt Small (1-33%) -Granulation Quality Red -Necrosis Amt None Present (0 %) -Structure Exposed N/A -Texture (Lianna-wound Skin Appearance) No Abnormality -Moisture (Lianna-wound Skin Appearance) No Abnormality, Dry/Scaly -Color (Lianna-wound Skin Appearance) Hemosiderin Staining -Temperature (Lianna-wound Skin No Abnormality Appearance) (Pt Warm) -Tenderness on Palpation (Lianna-wound No Skin Appearance) -Ulcer Cleansing Soap and Water -Foul Odor after Cleansing No -Anesthetic Used 5% Lidocaine Gel #6- R HEEL -Current Size (cm) - Length 0.1 -Current Size (cm) - Width 0.1 -Current Size (cm) - Depth 0.1 -Total Square Cm 0.01 -Photo Taken Yes -Exudate Amt None Present -Wound Margin Thickened -Granulation Amt Large (67-100%) -Granulation Quality Pale,[place] -Necrosis Amt None Present (0 %) -Structure Exposed N/A -Texture (Lianna-wound Skin Appearance) Scarring -Moisture (Lianna-wound Skin Appearance) Dry/Scaly -Color (Lianna-wound Skin Appearance) No Abnormality -Temperature (Lianna-wound Skin No Abnormality Appearance) (Pt Warm) -Tenderness on Palpation (Lianna-wound No Skin Appearance) -Ulcer Cleansing Soap and Water -Foul Odor after Cleansing No -Anesthetic Used 5% Lidocaine Gel Right Calf (cm) 49.3 Right Ankle (cm) 33 WC - Nurse 2 - General Ulcer CM Notes Start: 01/21/25 13:22 Freq: Status: Active Protocol: Activity Type Activity Date Activity User E-sign Co-sign Detail Recorded Client Recorded Date Recorded By Document 01/21/25 14:19 DS [id number] 01/21/25 14:27 DS 01/21/25 14:19 Wound Center Nurse 2 #7- R GR TOE -Time 14:19 -Correct Patient Yes -Correct Side, Site, Position Yes -Procedure Performed No -Post Debridement (cm) - Length 0.1 -Post Debridement (cm) - Width 0.1 -Post Debridement (cm) - Depth 0.1 -Total Square (Post) (cm) 0.01 -Area of Debridement (cm) - Length 0.1 -Area of Debridement (cm) - Width 0.1 -Total Square (Area) (cm) 0.01 -Wound/Ulcer Outcome Not Healed -Ulcer Cleansing Not Cleansed -Foul Odor after Cleansing No -Bioengineered Tissue No -Bleeding Controlled with Pressure -Treatment Response Procedure Tolerated Well -Offloading Yes -Type of Offloading Other -Other Type of Offloading podus boot -Debridement - Subq, 1st 20sq cm No #6- R HEEL -Time 14:19 -Correct Patient Yes -Correct Side, Site, Position Yes -Correct Procedure Yes -Procedure Performed Yes -Type of Procedure Debridement -Clinical Debridement Subcutaneous -Tissue Removed Subcutaneous -Post Debridement (cm) - Length 0.8 -Post Debridement (cm) - Width 0.8 -Post Debridement (cm) - Depth 0.3 -Total Square (Post) (cm) 0.64 -Area of Debridement (cm) - Length 0.8 -Area of Debridement (cm) - Width 0.8 -Total Square (Area) (cm) 0.64 -Tunneling No -Undermining/Tunneling No -Circular Undermining No -Wound/Ulcer Outcome Not Healed -Ulcer Cleansing Rinsed/ Irrigated with Saline -Foul Odor after Cleansing No -Bioengineered Tissue No -Bleeding Controlled with Pressure -Treatment Response Procedure Tolerated Well -Debridement - Subq, 1st 20sq cm Yes Pain Scale: 0-10 Numeric Is Patient Pain Free? Yes WC - Nurse 3 - General Ulcer D/C NN Start: 01/21/25 13:22 Freq: Status: Active Protocol: Activity Type Activity Date Activity User E-sign Co-sign Detail Recorded Client Recorded Date Recorded By Document 01/21/25 14:38 RB [id number] 01/21/25 14:39 RB 01/21/25 14:38 Wound Care Center Nurse 3 #6- R HEEL -Ulcer Cleansing Rinsed/ Irrigated with Saline -Other Dressing pt own magalis/ adaptic -Primary Dressing Covered/Secured with Dry Gauze,Dry Gauze & Roll Gauze,Secured with Tape RLE -Tubular Bandage Single Layer -Size of Tubigrip Used Size F -Size F ($) 1 Treatment Response Procedure Tolerated Well Pain Scale: 0-10 Numeric Is Patient Pain Free? Yes WC - Visit Discharge Discharge Condition Stable Ambulatory Status Ambulatory, Walker Transportation Private Auto Accompanied by Medication Reconcilliation completed & No provided to patient/care provider Clinical Summary of Care Provided Yes Lab / Micro Data Labs: Laboratory Tests 01/15/25 12:00 WBC 11.9 H Hgb 13.4 Hct 39.0 L Plt Count 205 Sodium 136 Potassium 4.4 Chloride 103 Carbon Dioxide 19.6 L Anion Gap 14 BUN 31 H Creatinine 1.35 H Calcium 9.2 Charges/Coding Procedures Integumentary [id number]: [id number] [place] subq tissue 20 sq cm/< Assessment/Plan Assessment/Plan (1) Diabetic ulcer of foot associated with diabetes mellitus due to underlying condition, with fat layer exposed: CODE(S): E08.621 - Diabetes mellitus due to underlying condition with foot ulcer; L97.502 - Non-pressure chronic ulcer of other part of unspecified foot with fat layer exposed QUALIFIERS: Diabetic foot ulcer location: heel Laterality: right Qualified Code(s): E08.621 - Diabetes mellitus due to underlying condition with foot ulcer; L97.412 - Non-pressure chronic ulcer of right heel and midfoot with fat layer exposed (2) 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: CODE(S): L97.412 - Non-pressure chronic ulcer of right heel and midfoot with fat layer exposed (3) Chronic ulcer of right heel with fat layer exposed: CODE(S): L97.412 - Non-pressure chronic ulcer of right heel and midfoot with fat layer exposed (4) Diabetic ulcer of toe: CODE(S): E11.621 - Type 2 diabetes mellitus with foot ulcer; L97.509 - Non-pressure chronic ulcer of other part of unspecified foot with unspecified severity QUALIFIERS: Diabetes mellitus type: type 2 Laterality: right Non-pressure ulcer stage: with other severity Qualified Code(s): E11.621 - Type 2 diabetes mellitus with foot ulcer; L97.518 - Non-pressure chronic ulcer of other part of right foot with other specified severity (5) Type 2 diabetes mellitus with foot ulcer: CODE(S): E11.621 - Type 2 diabetes mellitus with foot ulcer; L97.509 - Non-pressure chronic ulcer of other part of unspecified foot with unspecified severity QUALIFIERS: Diabetes mellitus director long term care insulin use: with shelter use Qualified Code(s): E11.621 - Type 2 diabetes mellitus with foot ulcer; L97.509 - Non-pressure chronic ulcer of other part of unspecified foot with unspecified severity; Z79.4 - long term acute care registered nurse (current) use of insulin (6) Diabetic foot ulcer: CODE(S): E11.621 - Type 2 diabetes mellitus with foot ulcer; L97.509 - Non-pressure chronic ulcer of other part of unspecified foot with unspecified severity QUALIFIERS: Diabetic foot ulcer location: heel Diabetes mellitus type: type 2 Laterality: right Non-pressure ulcer stage: with fat layer exposed Qualified Code(s): E11.621 - Type 2 diabetes mellitus with foot ulcer; L97.412 - Non-pressure chronic ulcer of right heel and midfoot with fat layer exposed (7) History of total knee arthroplasty: CODE(S): Z96.659 - Presence of unspecified artificial knee joint (8) Morbid obesity with BMI of 45.0-49.9, adult: CODE(S): E66.01 - Morbid (severe) obesity due to excess calories; Z68.42 - Body mass index [BMI] 45.0-49.9, adult (9) Diabetic polyneuropathy: CODE(S): E11.42 - Type 2 diabetes mellitus with diabetic polyneuropathy (10) Benign prostatic hyperplasia: CODE(S): N40.0 - Benign prostatic hyperplasia without lower urinary tract symptoms (11) Diabetes mellitus type 2 with complications, uncontrolled: (12) History of pulmonary embolism: CODE(S): Z86.711 - Personal history of pulmonary embolism (13) History of deep vein thrombosis (DVT) of lower extremity: CODE(S): Z86.718 - Personal history of other venous thrombosis and embolism (14) Hypertension: CODE(S): I10 - Essential (primary) hypertension QUALIFIERS: Hypertension type: primary hypertension Qualified Code(s): I10 - Essential (primary) hypertension (15) Debility: CODE(S): R53.81 - Other malaise (16) Lower extremity edema: CODE(S): R60.0 - Localized edema (17) Status post lumbar surgery: CODE(S): Z98.890 - Other specified postprocedural states (18) Spondylosis: CODE(S): M47.9 - Spondylosis, unspecified (19) GRETCHEN treated with BiPAP: CODE(S): G47.33 - Obstructive sleep apnea (adult) (pediatric) (20) Former tobacco use: CODE(S): Z87.891 - Personal history of nicotine dependence (21) VTE (venous thromboembolism): CODE(S): I82.90 - Acute embolism and thrombosis of unspecified vein (22) Dyslipidemia: CODE(S): E78.5 - Hyperlipidemia, unspecified (23) Hx of total knee replacement: CODE(S): Z96.659 - Presence of unspecified artificial knee joint (24) History of vascular surgery: CODE(S): Z98.890 - Other specified postprocedural states (25) Hx of laminectomy: CODE(S): Z98.890 - Other specified postprocedural states (26) History of pyloromyotomy: CODE(S): Z98.890 - Other specified postprocedural states (27) Onychomycosis: CODE(S): B35.1 - Tinea unguium (28) Stage 3b chronic kidney disease (CKD): CODE(S): N18.32 - Chronic kidney disease, stage 3b (29) Diabetic foot ulcer associated with diabetes mellitus due to underlying condition: CODE(S): E08.621 - Diabetes mellitus due to underlying condition with foot ulcer; L97.509 - Non-pressure chronic ulcer of other part of unspecified foot with unspecified severity (30) Charcot arthropathy: CODE(S): M14.60 - Charcot's joint, unspecified site PLAN: Plan This is a 69-year-old male who presented with recurrent ulcerations of the right postero-lateral heel and right great toe. The patient is obese and known to be diabetic. He also suffers from multiple other pre-existing medical problems. The ulcerations appear to be pressure and diabetes related. The patient's laboratory results from January 06, 2025, have been reviewed. The importance of offloading measures has been discussed with the patient. He is to continue wearing his offloading footwear, previously fitted by his [employer], Dr. Saurabh Dasilva. However, the fit of these shoes may need to be reevaluated. Whether the right postero-lateral heel ulceration is due to poorly fitted footwear, or pressure from the bed surface, is not clear. The patient claims to sleep on his back, and the site of the ulcer on the posterior heel may be due to pressure against the bed surface. Therefore, the patient has been advised to obtain a Podus boot for offloading purposes. He has obtained the Podus boot and has been implementing its use. With respect to this ulceration, we are to continue the use of moistened Magalis topically on a daily basis. Adaptic is to be placed over the Magalis, over which a dry gauze dressing will be applied. The patient and his have been instructed in the appropriate means of application. The dry gangrene on the tip of the right great toe has now sloughed, and a nearly total healed ulceration remains, almost completely epithelialized. There appears to be blood staining subcutaneously. It is to be left undisturbed, and will be monitored on a serial basis. The patient has been advised to optimize his nutritional intake, as well as his diabetic control. We are to continue the use of a single Tubigrip to the right lower extremity, which will be donned on a daily basis. The patient does have a history of swelling in his lower extremities. He has been advised to continue using his mechanical pneumatic compression pumps several times daily. He has also been advised to elevate his lower extremities as much as possible. Prolonged idle sitting has been discouraged. Ambulation has been encouraged. Weight loss is also been encouraged. It is noted that the patient was recently hospitalized at [facility] from January 08, 2025, until January 17, 2025. He was treated for bacteremia, though there is question as to its source. During the time of his hospital stay, he was thought to have community- acquired pneumonia. He was treated with intravenous antibiotics during the term of his hospitalization, and was discharged on doxycycline, which continues. The patient is to return in 1 week for reevaluation. Total time: 28 minutes
[2025-01-28 14:52] VITALS: BP 174/94; PULSE 89; RESP 16; TEMP 37; BMI 48.8
--- NOTE | 2025-01-29 10:20 | WC ---
PHOTO 01/28/25 RIGHT GREAT TOE
--- NOTE | 2025-01-29 10:25 | WC ---
PHOTO 01/28/25 RIGHT HEEL
--- NOTE | 2025-01-30 12:55 | PCM.WC.HP ---
History of Present Illness Date of Service: 01/28/25 Chief Complaint: Right heel ulcer and right hallux ulcer History of Wound: This is a 69 year-old male who presented to [facility] for evaluation of a right heel ulcer. It started as a a pressure ulcer in February 2022 when he he was in TCU and it healed. It then became a blister right before his Left TKR surgery. He had his left knee replaced 07/14/22 at [facility]. 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 He also has a history of diabetes type II with peripheral polyneuropathy, HTN, lymphedema, hypercholesterolemia and PE that he is on Xerelto. Wound culture obtained on 08/30/22 which are positive for VRE, Kocuria kristinae and Corynebacterium striatum. He will completed the Linezolid. Wound culture obtained 06/20/23 which was positive for Staphylococcus pseudintermediu, Pseudomonas aeruginosa, Corynebacterium minutissiumum, and Anaerobic cocci. He was started on Levaquin and Flagyl. Foot xray 09/27/22 - Osteopenia with diffuse osteoarthritic changes. Diffuse soft tissue swelling with ossification of the distal Achilles tendon. No acute abnormality or evidence of erosive changes. Did undergo updated radiograph of the right foot 11/08/2023 with no noted changes from previous x-ray. This is a recurring ulceration to both distal tuft of the right hallux and posterior lateral heel. He stated both sites had scabbed up and he was previously discharged however scabs have later broken down with re-ulceration. 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 Type 2 diabetes mellitus with foot ulcer Non-pressure chronic ulcer of other part of right foot with fat layer exposed Acute painful diabetic polyneuropathy Chronic ulcer of right heel with fat layer exposed Benign prostatic hyperplasia Diabetic polyneuropathy Hypertension History of pulmonary embolism Lymphedema Spondylosis Nephrolithiasis Diabetic ulcer of foot associated with diabetes mellitus due to underlying condition, with fat layer exposed Charcot arthropathy Diabetic foot ulcer Diabetic foot ulcer associated with diabetes mellitus due to underlying condition Stage 3b chronic kidney disease (CKD) Onychomycosis History of deep vein thrombosis (DVT) of lower extremity Diabetic ulcer of toe VTE (venous thromboembolism) Dyslipidemia Diabetes mellitus type 2 with complications, uncontrolled Morbid obesity with BMI of 45.0-49.9, adult GRETCHEN treated with BiPAP Morbid obesity Former tobacco use BPH (benign prostatic hyperplasia) HTN (hypertension) Diabetes mellitus Home Medications ?Medication ?Instructions ?Recorded ?Last Taken ?Type atorvastatin 20 mg tablet 20 mg PO QHS cholesterol 08/27/15 02/21/22 History furosemide 40 mg tablet 80 mg PO DAILY diuretic 08/27/15 02/22/22 History rivaroxaban 20 mg tablet (Xarelto) 20 mg PO DINNER blood thinner 03/23/16 02/21/22 History doxazosin 4 mg tablet 4 mg PO QHS blood pressure 04/03/20 02/21/22 History insulin lispro 100 unit/mL 20 unit subcut BREAKFAST diabetes 02/23/22 02/22/22 History subcutaneous pen insulin lispro 100 unit/mL 20 unit subcut LUNCH diabetes 02/23/22 02/22/22 History subcutaneous pen gabapentin 600 mg tablet 600 mg PO TIDCM Nerve Pain 02/24/22 Unknown History insulin glargine-yfgn 100 unit/mL 50 unit (0.5 mL) subcut QHS dm #0 04/10/22 Unknown Rx (3 mL) subcutaneous pen mL insulin lispro 100 unit/mL 20 unit (0.2 mL) subcut DINNER dm 04/10/22 Unknown Rx subcutaneous pen (Humalog KwikPen #0 mL (U-100) Insulin) aspirin 81 mg capsule 81 mg PO DAILY heart health 08/16/22 Unknown History calcium carbonate (Tums) 200 mg PO BID PRN Heartburn 08/16/22 Unknown History dulaglutide 3 mg/0.5 mL 3 mg subcut QWEEK dm 08/16/22 Unknown History subcutaneous pen injector (Trulicity) hydrocodone-acetaminophen 5-325mg 1 tab PO Q8H PRN Pain 08/16/22 Unknown History 5mg-325mg zinc 50 mg capsule 50 mg PO DAILY supplement 08/16/22 Unknown History losartan 100 mg tablet 100 mg PO DAILY bp 12/10/24 Unknown History metoprolol tartrate 75 mg tablet 75 mg PO BID bp 01/08/25 Unknown History tizanidine 4 mg tablet 4 mg PO TID PRN PRN low back pain 05/29/25 Unknown History cefdinir 300 mg capsule 300 mg PO BID 4 days #8 caps 01/15/25 Unknown Rx Allergy/AdvReac Type Severity Reaction Status Date / Time Penicillins Allergy Unknown Hives Verified 01/08/25 14:25 erythromycin base AdvReac Nausea Verified 01/08/25 14:25 (Erythromycin Base) Family History Mother Diabetes Heart disease Coagulopathy Father Heart disease CVA (cerebral vascular accident) Parkinsons disease Surgical History History of total knee arthroplasty Status post lumbar surgery History of pyloromyotomy History of total knee arthroplasty Hx of total knee replacement History of vascular surgery Status post creation of pericardial window Hx of laminectomy Social History household members: spouse Smoking Status: Former smoker how long ago did patient quit smoking: Quit 1994, smoked 1 ppd since age 15. alcohol intake: never substance use type: does not use Vital Signs Vital Signs Vital Signs: Weight Weight: 360 lb Body Mass Index (BMI) 48.8 Physical Exam Const alert, oriented x3, no apparent distress, no limitations and well nourished Constitutional Narrative: The patient's BMI is 48.8. General Appearance: cooperative, comfortable and well developed Orientation / Consciousness: awake, oriented to person, oriented to place and oriented to time Exam Limitations: no limitations HEENT normocephalic and head/scalp atraumatic Head and Scalp: normal to inspection, normocephalic and atraumatic Face and Sinus: normal facial exam Nose: external nose normal External Ear: external ears normal Eyes EOMs intact bilaterally General Eye: normal appearance of both eyes Resp normal respiratory effort, normal air movement, no retractions and no use of accessory muscles Effort and Inspection: able to speak in complete sentences GI GI Narrative: The abdomen is obese. Extremity no calf tenderness General Extremity: Negative for clubbing or cyanosis Skin Wound Narrative: The ulceration on the patient's right posterolateral heel persists. It appears to be a Gomez grade 1 ulceration. It extends through all layers of the dermis and into the subcutaneous tissues. There is no significant erythema or cellulitis. There is no obvious infection. Ulcer margins are not well beveled. Callus is noted at the periphery of the ulcer. There is a moderate amount of bioburden and nonviable tissue, as well as a large amount of desiccated Magalis. Dimensions are documented elsewhere. The ulceration appears to have diminished slightly in size since last observed. The tip of the patient's right great toe reveals a minimal residual ulceration with subcutaneous sanguinous staining. This site is nearly healed, with apparent near-total epithelialization. Onychomycosis is noted involving the toenails of the right foot. Neuro oriented x3, CN's II-XII intact bilaterally and moves all extremities Sensorium / Orientation: awake, alert, oriented to person, oriented to place and oriented to time Speech: speech normal Psych Appearance: grossly normal and appropriate Attitude: calm Activity / Motor Behavior: appropriate eye contact Speech: normal speech Mood & Affect: euthymic mood Thought Process: normal thought process Thought Content: normal thought content Attention / Concentration: attention grossly intact Debridement Note Debridement Note Wound debrided: Right postero-lateral heel ulceration Laterality: Right Wound Grade/Stage: Gomez Grade 1 Type of Debridement: Excisional debridement Anesthesia Used: 5% Lidocaine Gel Depth: Down to and including healthy tissue and in the subcutaneous layer Percentage of wound debrided: 100 Instrument Used: 5mm curette Tissue Removed: Bioburden, residual desiccated Magalis, and nonviable tissue; peripheral madi Severity: Fat Layer Exposed Amount of bleeding with debridement: Mild Bleeding Controlled with: Compression and gauze Patient tolerated procedure: Patient tolerated procedure well Post-Debridement Measurements and Additional Note: Post-Debridement Measurements/Treatment LAM - Nurse 1 - General Ulcer Assessment Start: 01/21/25 13:22 Freq: Status: Active Protocol: NELL Activity Type Activity Date Activity User E-sign Co-sign Detail Recorded Client Recorded Date Recorded By Document 01/21/25 13:22 DL [id number] 01/21/25 13:29 DL Document 01/28/25 14:52 [facility] [id number] 01/28/25 15:00 [facility] 01/21/25 01/28/25 13:22 14:52 - Today's Visit Information Type of service Follow-up Visit Follow-up Visit (Physician/GAS MAKER HELPER (Physician/GAS MAKER HELPER ) ) Arrival Mode Ambulatory, Ambulatory, Walker Walker Transfer Assistance None None Patient Identification Verified (Name & Yes Yes ) Patient Requires Transmission-Based No No Precautions Height and Weight Body Mass Index (BMI) 48.8 48.8 BMI Classification Obese Obese Vital Signs Temperature (97.8 F-99.1 F) 97.2 F L 98.6 F Temperature Source Temporal Temporal Pulse Rate (60-100) 78 89 Pulse Location Monitor Monitor Respiratory Rate (12-18) 16 16 Respiratory rate source Observation Observation Oxygen Delivery Method Room Air Blood Pressure (90/60-120/80) 135/78 H 174/94 H Blood Pressure Mean 97 120 Source Monitor Monitor Position Sitting Blood Pressure Location Right Arm History Since Last Visit- (Skip if this is Patient's initial visit) Have you changed medications since your No No last visit? Any new allergies or adverse reactions No No Had a fall/change in ADL's that may No No increase risk of falls Signs or symptoms of abuse and/or No No neglect since last visit Have you been in the hospital since your No No last visit? Has dressing in place as prescribed Yes Yes Has compression in place as prescribed Yes Yes Has offloadiing in place as prescribed Yes Experienced any changes in pain level or No No management Left Footwear Diabetic Shoe Right Footwear Surgical Shoe with pressure relief insole Pain Scale: 0-10 Numeric Is Patient Pain Free? Yes Yes WC - Nurse 1 - General Ulcer Measurement Start: 01/21/25 13:22 Freq: Status: Active Protocol: Activity Type Activity Date Activity User E-sign Co-sign Detail Recorded Client Recorded Date Recorded By Document 01/21/25 13:22 DL [id number] 01/21/25 13:29 DL Document 01/28/25 14:52 [facility] [id number] 01/28/25 15:00 [facility] 01/21/25 01/28/25 13:22 14:52 Wound Center Nurse 1 #7- R GR TOE -Combined with other wound No -Current Size (cm) - Length 0.1 0.1 -Current Size (cm) - Width 0.1 0.1 -Current Size (cm) - Depth 0.1 0.1 -Total Square Cm 0.01 0.01 -Date of Last Picture (Recall this 01/28/25 field) -Photo Taken Yes Yes -Epithelialization Large 67-100% -Tunneling No -Undermining/Tunneling No -Circular Undermining No -Exudate Amt None Present None Present -Wound Margin Distinct, Flat & Intact Outline Attached -Granulation Amt Small (1-33%) Large (67-100%) -Granulation Quality Red Pale,Welty -Necrosis Amt None Present (0 Small (1-33%) %) -Structure Exposed N/A -Texture (Lianna-wound Skin Appearance) No Abnormality Assessed -Moisture (Lianna-wound Skin Appearance) No Abnormality, Assessed Dry/Scaly -Color (Lianna-wound Skin Appearance) Hemosiderin Assessed Staining -Temperature (Lianna-wound Skin No Abnormality No Abnormality Appearance) (Pt Warm) (Pt Warm) -Tenderness on Palpation (Lianna-wound No No Skin Appearance) -Ulcer Cleansing Soap and Water Soap and Water -Foul Odor after Cleansing No No -Anesthetic Used 5% Lidocaine 5% Lidocaine Gel Gel #6- R HEEL -Combined with other wound No -Current Size (cm) - Length 0.1 0.1 -Current Size (cm) - Width 0.1 0.1 -Current Size (cm) - Depth 0.1 0.1 -Total Square Cm 0.01 0.01 -Date of Last Picture (Recall this 01/28/25 field) -Photo Taken Yes Yes -Epithelialization Large 67-100% -Tunneling No -Undermining/Tunneling No -Circular Undermining No -Exudate Amt None Present None Present -Wound Margin Thickened Flat & Intact -Granulation Amt Large (67-100%) Large (67-100%) -Granulation Quality Pale,Welty Pale,Welty -Necrosis Amt None Present (0 None Present (0 %) %) -Structure Exposed N/A -Texture (Lianna-wound Skin Appearance) Scarring Assessed -Moisture (Lianna-wound Skin Appearance) Dry/Scaly Assessed -Color (Lianna-wound Skin Appearance) No Abnormality Assessed, Erythema, Hemosiderin Staining -Temperature (Lianna-wound Skin No Abnormality No Abnormality Appearance) (Pt Warm) (Pt Warm) -Tenderness on Palpation (Lianna-wound No No Skin Appearance) -Ulcer Cleansing Soap and Water Soap and Water -Foul Odor after Cleansing No No -Anesthetic Used 5% Lidocaine 5% Lidocaine Gel Gel Right Calf (cm) 49.3 48 Right Ankle (cm) 33 31 WC - Nurse 2 - General Ulcer CM Notes Start: 01/21/25 13:22 Freq: Status: Active Protocol: Activity Type Activity Date Activity User E-sign Co-sign Detail Recorded Client Recorded Date Recorded By Document 01/21/25 14:19 DS [id number] 01/21/25 14:27 DS Document 01/28/25 15:39 [id number] 01/28/25 15:49 01/21/25 01/28/25 14:19 15:39 Wound Center Nurse 2 #7- R GR TOE -Time 14:19 15:39 -Correct Patient Yes Yes -Correct Side, Site, Position Yes Yes -Correct Procedure No -Procedure Performed No No -Post Debridement (cm) - Length 0.1 -Post Debridement (cm) - Width 0.1 -Post Debridement (cm) - Depth 0.1 -Total Square (Post) (cm) 0.01 -Area of Debridement (cm) - Length 0.1 -Area of Debridement (cm) - Width 0.1 -Total Square (Area) (cm) 0.01 -Tunneling No -Undermining/Tunneling No -Circular Undermining No -Wound/Ulcer Outcome Not Healed Not Healed -Ulcer Cleansing Not Cleansed -Foul Odor after Cleansing No No -Bioengineered Tissue No No -Bleeding Controlled with Pressure -Treatment Response Procedure Tolerated Well -Offloading Yes No -Type of Offloading Other -Other Type of Offloading podus boot -Debridement - Subq, 1st 20sq cm No #6- R HEEL -Time 14:19 15:40 -Correct Patient Yes Yes -Correct Side, Site, Position Yes Yes -Correct Procedure Yes Yes -Procedure Performed Yes Yes -Type of Procedure Debridement Debridement -Clinical Debridement Subcutaneous Subcutaneous -Tissue Removed Subcutaneous Subcutaneous -Post Debridement (cm) - Length 0.8 0.7 -Post Debridement (cm) - Width 0.8 0.3 -Post Debridement (cm) - Depth 0.3 0.2 -Total Square (Post) (cm) 0.64 0.21 -Area of Debridement (cm) - Length 0.8 0.7 -Area of Debridement (cm) - Width 0.8 0.3 -Total Square (Area) (cm) 0.64 0.21 -Tunneling No No -Undermining/Tunneling No No -Circular Undermining No No -Wound/Ulcer Outcome Not Healed Not Healed -Ulcer Cleansing Rinsed/ Rinsed/ Irrigated with Irrigated with Saline Saline -Foul Odor after Cleansing No No -Bioengineered Tissue No No -Bleeding Controlled with Pressure Pressure -Treatment Response Procedure Procedure Tolerated Well Tolerated Well -Offloading No -Debridement - Subq, 1st 20sq cm Yes Yes Pain Scale: 0-10 Numeric Is Patient Pain Free? Yes Yes - Nurse 3 - General Ulcer D/C NN Start: 01/21/25 13:22 Freq: Status: Active Protocol: Activity Type Activity Date Activity User E-sign Co-sign Detail Recorded Client Recorded Date Recorded By Document 01/21/25 14:38 RB [id number] 01/21/25 14:39 RB Document 01/28/25 15:56 DL [id number] 01/28/25 15:58 DL 01/21/25 01/28/25 14:38 15:56 [facility] Center Nurse 3 #7- R GR TOE -Ulcer Cleansing Rinsed/ Irrigated with Saline -Other Dressing Pad and protect -Primary Dressing Covered/Secured with Dry Gauze, Secured with Tape #6- R HEEL -Ulcer Cleansing Rinsed/ Rinsed/ Irrigated with Irrigated with Saline Saline -Foul Odor after Cleansing No -Primary Dressing Applied C Hydrogel, NonAdherent Contact Layer -Other Dressing pt own magalis/ adaptic -Primary Dressing Covered/Secured with Dry Gauze,Dry Dry Gauze & Gauze & Roll Roll Gauze, Gauze,Secured Secured with with Tape Tape -Hydrogel 1 -Wound Comment(s) Dressing applie per Raj Constantino today RLE -Tubular Bandage Single Layer Single Layer -Size of Tubigrip Used Size F Size F -Size F ($) 1 1 Treatment Response Procedure Procedure Tolerated Well Tolerated Well Pain Scale: 0-10 Numeric Is Patient Pain Free? Yes Yes - Visit Discharge Discharge Condition Stable Stable Ambulatory Status Ambulatory, Ambulatory, Walker Walker Transportation Private Auto Private Auto Accompanied by Medication Reconcilliation completed & No provided to patient/care provider Clinical Summary of Care Provided Yes Charges/Coding Procedures Integumentary [id number]: [id number] [place] subq tissue 20 sq cm/< Assessment/Plan Assessment/Plan (1) Diabetic ulcer of foot associated with diabetes mellitus due to underlying condition, with fat layer exposed: CODE(S): E08.621 - Diabetes mellitus due to underlying condition with foot ulcer; L97.502 - Non-pressure chronic ulcer of other part of unspecified foot with fat layer exposed QUALIFIERS: Diabetic foot ulcer location: heel Laterality: right Qualified Code(s): E08.621 - Diabetes mellitus due to underlying condition with foot ulcer; L97.412 - Non-pressure chronic ulcer of right heel and midfoot with fat layer exposed (2) 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: CODE(S): L97.412 - Non-pressure chronic ulcer of right heel and midfoot with fat layer exposed (3) Chronic ulcer of right heel with fat layer exposed: CODE(S): L97.412 - Non-pressure chronic ulcer of right heel and midfoot with fat layer exposed (4) Diabetic ulcer of toe: CODE(S): E11.621 - Type 2 diabetes mellitus with foot ulcer; L97.509 - Non-pressure chronic ulcer of other part of unspecified foot with unspecified severity QUALIFIERS: Diabetes mellitus type: type 2 Laterality: right Non-pressure ulcer stage: with other severity Qualified Code(s): E11.621 - Type 2 diabetes mellitus with foot ulcer; L97.518 - Non-pressure chronic ulcer of other part of right foot with other specified severity (5) Type 2 diabetes mellitus with foot ulcer: CODE(S): E11.621 - Type 2 diabetes mellitus with foot ulcer; L97.509 - Non-pressure chronic ulcer of other part of unspecified foot with unspecified severity QUALIFIERS: Diabetes mellitus retirement insulin use: with termite control servicer use Qualified Code(s): E11.621 - Type 2 diabetes mellitus with foot ulcer; L97.509 - Non-pressure chronic ulcer of other part of unspecified foot with unspecified severity; Z79.4 - 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 exterminator (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) use of insulin (6) Diabetic foot ulcer: CODE(S): E11.621 - Type 2 diabetes mellitus with foot ulcer; L97.509 - Non-pressure chronic ulcer of other part of unspecified foot with unspecified severity QUALIFIERS: Diabetic foot ulcer location: heel Diabetes mellitus type: type 2 Laterality: right Non-pressure ulcer stage: with fat layer exposed Qualified Code(s): E11.621 - Type 2 diabetes mellitus with foot ulcer; L97.412 - Non-pressure chronic ulcer of right heel and midfoot with fat layer exposed (7) History of total knee arthroplasty: CODE(S): Z96.659 - Presence of unspecified artificial knee joint (8) Morbid obesity with BMI of 45.0-49.9, adult: CODE(S): E66.01 - Morbid (severe) obesity due to excess calories; Z68.42 - Body mass index [BMI] 45.0-49.9, adult (9) Diabetic polyneuropathy: CODE(S): E11.42 - Type 2 diabetes mellitus with diabetic polyneuropathy (10) Benign prostatic hyperplasia: CODE(S): N40.0 - Benign prostatic hyperplasia without lower urinary tract symptoms (11) Diabetes mellitus type 2 with complications, uncontrolled: (12) History of pulmonary embolism: CODE(S): Z86.711 - Personal history of pulmonary embolism (13) History of deep vein thrombosis (DVT) of lower extremity: CODE(S): Z86.718 - Personal history of other venous thrombosis and embolism (14) Hypertension: CODE(S): I10 - Essential (primary) hypertension QUALIFIERS: Hypertension type: primary hypertension Qualified Code(s): I10 - Essential (primary) hypertension (15) Debility: CODE(S): R53.81 - Other malaise (16) Lower extremity edema: CODE(S): R60.0 - Localized edema (17) Status post lumbar surgery: CODE(S): Z98.890 - Other specified postprocedural states (18) Spondylosis: CODE(S): M47.9 - Spondylosis, unspecified (19) GRETCHEN treated with BiPAP: CODE(S): G47.33 - Obstructive sleep apnea (adult) (pediatric) (20) Former tobacco use: CODE(S): Z87.891 - Personal history of nicotine dependence (21) VTE (venous thromboembolism): CODE(S): I82.90 - Acute embolism and thrombosis of unspecified vein (22) Dyslipidemia: CODE(S): E78.5 - Hyperlipidemia, unspecified (23) Hx of total knee replacement: CODE(S): Z96.659 - Presence of unspecified artificial knee joint (24) History of vascular surgery: CODE(S): Z98.890 - Other specified postprocedural states (25) Hx of laminectomy: CODE(S): Z98.890 - Other specified postprocedural states (26) History of pyloromyotomy: CODE(S): Z98.890 - Other specified postprocedural states (27) Onychomycosis: CODE(S): B35.1 - Tinea unguium (28) Stage 3b chronic kidney disease (CKD): CODE(S): N18.32 - Chronic kidney disease, stage 3b (29) Diabetic foot ulcer associated with diabetes mellitus due to underlying condition: CODE(S): E08.621 - Diabetes mellitus due to underlying condition with foot ulcer; L97.509 - Non-pressure chronic ulcer of other part of unspecified foot with unspecified severity (30) Charcot arthropathy: CODE(S): M14.60 - Charcot's joint, unspecified site PLAN: Plan This is a 69-year-old male who presented with recurrent ulcerations of the right postero-lateral heel and right great toe. The patient is obese and known to be diabetic. He also suffers from multiple other pre-existing medical problems. The ulcerations appear to be pressure and diabetes related. The patient's laboratory results from January 06, 2025, have been reviewed. The importance of offloading measures has been discussed with the patient. He is to continue wearing his offloading footwear, previously fitted by his Brew House Supervisor, Dr. Saurabh Dasilva. However, the fit of these shoes may need to be reevaluated. Whether the right postero-lateral heel ulceration is due to poorly fitted footwear, or pressure from the bed surface, is not clear. The patient claims to sleep on his back, and the site of the ulcer on the posterior heel may be due to pressure against the bed surface. Therefore, the patient has been advised to obtain a Podus boot for offloading purposes. He has obtained the Podus boot and has been implementing its use. It appears that he may not be totally compliant with the use of the Podus boot. With respect to this ulceration, we are to transition to the use of collagen hydrogel applied topically on a daily basis. This is to be covered by gauze. The patient has been instructed in the appropriate means of application. The dry gangrene on the tip of the right great toe has now sloughed, and a nearly total healed ulceration remains, almost completely epithelialized. There appears to be blood staining subcutaneously. It is to be left undisturbed, and will be monitored on a serial basis. The patient has been advised to optimize his nutritional intake, as well as his diabetic control. We are to continue the use of a single Tubigrip to the right lower extremity, which will be donned on a daily basis. The patient does have a history of swelling in his lower extremities. He has been advised to continue using his mechanical pneumatic compression pumps several times daily. He has also been advised to elevate his lower extremities as much as possible. Prolonged idle sitting has been discouraged. Ambulation has been encouraged. Weight loss is also been encouraged. It is noted that the patient was recently hospitalized at [facility] from January 08, 2025, until January 17, 2025. He was treated for bacteremia, though there is question as to its source. During the time of his hospital stay, he was thought to have community-acquired pneumonia. He was treated with intravenous antibiotics during the term of his hospitalization, and was discharged on doxycycline, which has been completed. The patient is to return in 1 week for reevaluation. Total time: 26 minutes
[2025-02-04 14:11] VITALS: BP 155/95; PULSE 91; RESP 15; TEMP 35.9; BMI 48.8
--- NOTE | 2025-02-05 11:10 | WC ---
PHOTO 02/04/25 RIGHT GREAT TOE
--- NOTE | 2025-02-05 11:10 | WC ---
PHOTO 02/04/25 RIGHT HEEL
--- NOTE | 2025-02-06 16:48 | HP.PCM_ITS ---
History of Present Illness Date of Service: 02/04/25 Chief Complaint: Right heel ulcer and right hallux ulcer History of Wound: This is a 69 year-old male who presented to [facility] for evaluation of a right heel ulcer. It started as a a pressure ulcer in February 2022 when he he was in TCU and it healed. It then became a blister right before his Left TKR surgery. He had his left knee replaced 07/14/22 at [facility]. 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 He also has a history of diabetes type II with peripheral polyneuropathy, HTN, lymphedema, hypercholesterolemia and PE that he is on Xerelto. Wound culture obtained on 08/30/22 which are positive for VRE, Kocuria kristinae and Corynebacterium striatum. He will completed the Linezolid. Wound culture obtained 06/20/23 which was positive for Staphylococcus pseudintermediu, Pseudomonas aeruginosa, Corynebacterium minutissiumum, and Anaerobic cocci. He was started on Levaquin and Flagyl. Foot xray 09/27/22 - Osteopenia with diffuse osteoarthritic changes. Diffuse soft tissue swelling with ossification of the distal Achilles tendon. No acute abnormality or evidence of erosive changes. Did undergo updated radiograph of the right foot 11/08/2023 with no noted changes from previous x-ray. This is a recurring ulceration to both distal tuft of the right hallux and posterior lateral heel. He stated both sites had scabbed up and he was previously discharged however scabs have later broken down with re-ulceration. 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 Type 2 diabetes mellitus with foot ulcer Non-pressure chronic ulcer of other part of right foot with fat layer exposed Acute painful diabetic polyneuropathy Chronic ulcer of right heel with fat layer exposed Benign prostatic hyperplasia Diabetic polyneuropathy Hypertension History of pulmonary embolism Lymphedema Spondylosis Nephrolithiasis Diabetic ulcer of foot associated with diabetes mellitus due to underlying condition, with fat layer exposed Charcot arthropathy Diabetic foot ulcer Diabetic foot ulcer associated with diabetes mellitus due to underlying condition Stage 3b chronic kidney disease (CKD) Onychomycosis History of deep vein thrombosis (DVT) of lower extremity Diabetic ulcer of toe VTE (venous thromboembolism) Dyslipidemia Diabetes mellitus type 2 with complications, uncontrolled Morbid obesity with BMI of 45.0-49.9, adult GRETCHEN treated with BiPAP Morbid obesity Former tobacco use BPH (benign prostatic hyperplasia) HTN (hypertension) Diabetes mellitus Home Medications ?Medication ?Instructions ?Recorded ?Last Taken ?Type atorvastatin 20 mg tablet 20 mg PO QHS cholesterol 02/21/22 History furosemide 40 mg tablet 80 mg PO DAILY diuretic 08/1302/22/22 History rivaroxaban 20 mg tablet (Xarelto) 20 mg PO DINNER blo od thinner 03/23/16 02/21/22 History doxazosin 4 mg tablet 4 mg PO QHS blood pressure 0 04/03/20 02/21/22 History insulin lispro 100 unit/mL 20 unit subcut BREAKFAST di abetes 02/23/22 02/22/22 History subcutaneous pen insulin lispro 100 unit/mL 20 unit subcut LUNCH diabet es 02/23/22 02/22/22 History subcutaneous pen gabapentin 600 mg tablet 600 mg PO TIDCM Nerve Pain 0 02/24/22 Unknown History insulin glargine-yfgn 100 unit/mL 50 unit (0.5 mL) sub cut QHS dm #0 04/10/22 Unknown Rx (3 mL) subcutaneous pen mL insulin lispro 100 unit/mL 20 unit (0.2 mL) subcut DIN NER dm 04/10/22 Unknown Rx subcutaneous pen (Humalog KwikPen #0 mL (U-100) Insulin) aspirin 81 mg capsule 81 mg PO DAILY heart health 08/16/22 Unknown History calcium carbonate (Tums) 200 mg PO BID PRN Heartburn 08/16/22 Unknown History dulaglutide 3 mg/0.5 mL 3 mg subcut QWEEK dm 3 Unknown History subcutaneous pen injector (Trulicity) hydrocodone-acetaminophen 5-325mg 1 tab PO Q8H PRN Fei n 08/16/22 Unknown History 5mg-325mg zinc 50 mg capsule 50 mg PO DAILY supplement Unknown History losartan 100 mg tablet 100 mg PO DAILY bp 12/10/24 Unknown History metoprolol tartrate 75 mg tablet 75 mg PO BID bp 01/08 Unknown History tizanidine 4 mg tablet 4 mg PO TID PRN PRN low back pain 01/08/25 Unknown History cefdinir 300 mg capsule 300 mg PO BID 4 days #8 caps 01/15/25 Unknown Rx Allergy/AdvReac Type Severity Reaction Status Date / Time Penicillins Allergy Unknown Hives Verified 01/08/25 14:25 erythromycin base AdvReac Nausea Verified 01/08/25 14:25 (Erythromycin Base) Family History Mother Diabetes Heart disease Coagulopathy Father Heart disease CVA (cerebral vascular accident) Parkinsons disease Surgical History History of total knee arthroplasty Status post lumbar surgery History of pyloromyotomy History of total knee arthroplasty Hx of total knee replacement History of vascular surgery Status post creation of pericardial window Hx of laminectomy Social History household members: spouse Smoking Status: Former smoker how long ago did patient quit smoking: Quit 1994, smoked 1 ppd since age 15. alcohol intake: never substance use type: does not use Vital Signs Vital Signs Vital Signs: Weight Weight: 360 lb Body Mass Index (BMI) 48.8 Physical Exam Const alert, oriented x3, no apparent distress, no limitations and well nourished Constitutional Narrative: The patient's BMI is 48.8. General Appearance: cooperative, comfortable and well developed Orientation / Consciousness: awake, oriented to person, oriented to place and oriented to time Exam Limitations: no limitations HEENT normocephalic and head/scalp atraumatic Head and Scalp: normal to inspection, normocephalic and atraumatic Face and Sinus: normal facial exam Nose: external nose normal External Ear: external ears normal Eyes EOMs intact bilaterally General Eye: normal appearance of both eyes Resp normal respiratory effort, normal air movement, no retractions and no use of accessory muscles Effort and Inspection: able to speak in complete sentences GI GI Narrative: The abdomen is obese. Extremity no calf tenderness General Extremity: Negative for clubbing or cyanosis Skin Wound Narrative: The ulceration on the patient's right posterolateral heel persists. It appears to be a Gomez grade 1 ulceration. It extends through all layers of the dermis and into the subcutaneous tissues. There is no significant erythema or cellulitis. There is no obvious infection. Ulcer margins are not well beveled. A small amount of callus is noted at the periphery of the ulcer. There is a moderate amount of bioburden and nonviable tissue, as well as a large amount of desiccated Magalis. Dimensions are documented elsewhere. The ulceration appears to have diminished in size since last observed. The tip of the patient's right great toe reveals a minimal residual ulceration with subcutaneous old blood staining. This site is nearly healed, with apparent near-total epithelialization. Onychomycosis is noted involving the toenails of the right foot. Neuro oriented x3, CN's II-XII intact bilaterally and moves all extremities Sensorium / Orientation: awake, alert, oriented to person, oriented to place and oriented to time Speech: speech normal Psych Appearance: grossly normal and appropriate Attitude: calm Activity / Motor Behavior: appropriate eye contact Speech: normal speech Mood & Affect: euthymic mood Thought Process: normal thought process Thought Content: normal thought content Attention / Concentration: attention grossly intact Debridement Note Debridement Note Wound debrided: Right postero-lateral heel ulceration Laterality: Right Wound Grade/Stage: Gomez Grade 1 Type of Debridement: Excisional debridement Anesthesia Used: 5% Lidocaine Gel Depth: Down to and including healthy tissue and in the subcutaneous layer Percentage of wound debrided: 100 Instrument Used: 5mm curette, Forceps and - (Scissors) Tissue Removed: Bioburden, residual desiccated Magalis, and nonviable tissue; callus Severity: Fat Layer Exposed Amount of bleeding with debridement: Mild Bleeding Controlled with: Compression and gauze Patient tolerated procedure: Patient tolerated procedure well Post-Debridement Measurements and Additional Note: Post-Debridement Measurements/Treatment - Nurse 1 - General Ulcer Assessment Start: 01/21/25 13:22 Freq: Status: Active Protocol: NELL Activity Type Activity Date Activity User E-sign Co-sign Detail Recorded Client Recorded Date Recorded By Document 01/21/25 13:22 DL [id number] 01/21/25 13:29 DL Document 01/28/25 14:52 BMF [id number] 01/28/25 15:00 BMF Document 02/04/25 14:11 ML [id number] 02/04/25 14:22 ML 01/21/25 01/28/25 02/04/25 13:22 14:52 14:11 - Today's Visit Information Type of service Follow-up Visit Follow-up Visit Follow-up Visit (Physician/[employer] (Physician/[employer]ER (Physician/[employer] ) ) ) Arrival Mode Ambulatory, Ambulatory, Ambulatory, Walker Walker Walker Transfer Assistance None None None Patient Identification Verified (Name & Yes Yes Yes ) Patient Requires Transmission-Based No No No Precautions Height and Weight Body Mass Index (BMI) 48.8 48.8 48.8 BMI Classification Obese Obese Obese Vital Signs Temperature (97.8 F-99.1 F) 97.2 F L 98.6 F 96.7 F L Temperature Source Temporal Temporal Temporal Pulse Rate (60-100) 78 89 91 Pulse Location Monitor Monitor Monitor Respiratory Rate (12-18) 16 16 15 Respiratory rate source Observation Observation Observation Oxygen Delivery Method Room Air Blood Pressure (90/60-120/80) 135/78 H 174/94 H 155/95 H Blood Pressure Mean 97 120 115 Source Monitor Monitor Monitor Position Sitting Sitting Blood Pressure Location Right Arm Left Forearm History Since Last Visit- (Skip if this is Patient's initial visit) Have you changed medications since your No No No last visit? Any new allergies or adverse reactions No No No Had a fall/change in ADL's that may No No No increase risk of falls Signs or symptoms of abuse and/or No No No neglect since last visit Have you been in the hospital since your No No No last visit? Has dressing in place as prescribed Yes Yes Yes Has compression in place as prescribed Yes Yes Yes Has offloadiing in place as prescribed Yes N/A Experienced any changes in pain level or No No No management Left Footwear Diabetic Shoe Right Footwear Surgical Shoe with pressure relief insole Pain Scale: 0-10 Numeric Is Patient Pain Free? Yes Yes Yes WC - Nurse 1 - General Ulcer Measurement Start: 01/21/25 13:22 Freq: Status: Active Protocol: Activity Type Activity Date Activity User E-sign Co-sign Detail Recorded Client Recorded Date Recorded By Document 01/21/25 13:22 DL [id number] 01/21/25 13:29 DL Document 01/28/25 14:52 BMF [id number] 01/28/25 15:00 BMF Document 02/04/25 14:11 ML [id number] 02/04/25 14:22 ML 01/21/25 01/28/25 02/04/25 13:22 14:52 14:11 Wound Center Nurse 1 #7- R GR TOE -Combined with other wound No -Current Size (cm) - Length 0.1 0.1 0.2 -Current Size (cm) - Width 0.1 0.1 0.1 -Current Size (cm) - Depth 0.1 0.1 0.1 -Total Square Cm 0.01 0.01 0.02 -Date of Last Picture (Recall this 01/28/25 field) -Photo Taken Yes Yes -Epithelialization Large 67-100% -Tunneling No -Undermining/Tunneling No -Circular Undermining No -Exudate Amt None Present None Present None Present -Wound Margin Distinct, Flat & Intact Outline Attached -Granulation Amt Small (1-33%) Large (67-100%) None Present (0 %) -Granulation Quality Red Pale,[place] -Necrosis Amt None Present (0 Small (1-33%) None Present (0 %) %) -Structure Exposed N/A -Texture (Lianna-wound Skin Appearance) No Abnormality Assessed Assessed -Moisture (Lianna-wound Skin Appearance) No Abnormality, Assessed Assessed Dry/Scaly -Color (Lianna-wound Skin Appearance) Hemosiderin Assessed Assessed Staining -Temperature (Lianna-wound Skin No Abnormality No Abnormality No Abnormality Appearance) (Pt Warm) (Pt Warm) (Pt Warm) -Tenderness on Palpation (Lianna-wound No No No Skin Appearance) -Ulcer Cleansing Soap and Water Soap and Water Soap and Water -Foul Odor after Cleansing No No No -Anesthetic Used 5% Lidocaine 5% Lidocaine 5% Lidocaine Gel Gel Gel #6- R HEEL -Combined with other wound No -Current Size (cm) - Length 0.1 0.1 0.8 -Current Size (cm) - Width 0.1 0.1 0.1 -Current Size (cm) - Depth 0.1 0.1 0.1 -Total Square Cm 0.01 0.01 0.08 -Date of Last Picture (Recall this 01/28/25 field) -Photo Taken Yes Yes -Epithelialization Large 67-100% -Tunneling No -Undermining/Tunneling No -Circular Undermining No -Exudate Amt None Present None Present Medium -Exudate Type Serosanguineous -Wound Margin Thickened Flat & Intact -Granulation Amt Large (67-100%) Large (67-100%) Small (1-33%) -Granulation Quality Pale,[place] Pale,[place] -Slough/Fibrin Yes -Necrosis Amt None Present (0 None Present (0 Small (1-33%) %) %) -Necrotic Tissue Type Adherent Slough -Structure Exposed N/A -Texture (Lianna-wound Skin Appearance) Scarring Assessed Assessed -Moisture (Lianna-wound Skin Appearance) Dry/Scaly Assessed Assessed -Color (Lianna-wound Skin Appearance) No Abnormality Assessed, Assessed Erythema, Hemosiderin Staining -Temperature (Lianna-wound Skin No Abnormality No Abnormality No Abnormality Appearance) (Pt Warm) (Pt Warm) (Pt Warm) -Tenderness on Palpation (Lianna-wound No No No Skin Appearance) -Ulcer Cleansing Soap and Water Soap and Water Soap and Water -Foul Odor after Cleansing No No No -Anesthetic Used 5% Lidocaine 5% Lidocaine 4% Lidocaine Gel Gel Solution Right Calf (cm) 49.3 48 Right Ankle (cm) 33 31 WC - Nurse 2 - General Ulcer CM Notes Start: 01/21/25 13:22 Freq: Status: Active Protocol: Activity Type Activity Date Activity User E-sign Co-sign Detail Recorded Client Recorded Date Recorded By Document 01/21/25 14:19 DS [id number] 01/21/25 14:27 DS Document 01/28/25 15:39 [id number] 01/28/25 15:49 Document 02/04/25 14:27 [id number] 02/04/25 14:35 01/21/25 01/28/25 02/04/25 14:19 15:39 14:27 Wound Center Nurse 2 #7- R GR TOE -Time 14:19 15:39 14:28 -Correct Patient Yes Yes Yes -Correct Side, Site, Position Yes Yes Yes -Correct Procedure No No -Procedure Performed No No No -Post Debridement (cm) - Length 0.1 -Post Debridement (cm) - Width 0.1 -Post Debridement (cm) - Depth 0.1 -Total Square (Post) (cm) 0.01 -Area of Debridement (cm) - Length 0.1 -Area of Debridement (cm) - Width 0.1 -Total Square (Area) (cm) 0.01 -Tunneling No No -Undermining/Tunneling No No -Circular Undermining No No -Wound/Ulcer Outcome Not Healed Not Healed Not Healed -Ulcer Cleansing Not Cleansed -Foul Odor after Cleansing No No No -Bioengineered Tissue No No No -Bleeding Controlled with Pressure NA -Treatment Response Procedure Tolerated Well -Offloading Yes No No -Type of Offloading Other -Other Type of Offloading podus boot -Debridement - Subq, 1st 20sq cm No #6- R HEEL -Time 14:19 15:40 14:29 -Correct Patient Yes Yes Yes -Correct Side, Site, Position Yes Yes Yes -Correct Procedure Yes Yes Yes -Procedure Performed Yes Yes Yes -Type of Procedure Debridement Debridement Debridement -Clinical Debridement Subcutaneous Subcutaneous Subcutaneous -Tissue Removed Subcutaneous Subcutaneous Subcutaneous -Post Debridement (cm) - Length 0.8 0.7 1.0 -Post Debridement (cm) - Width 0.8 0.3 1.5 -Post Debridement (cm) - Depth 0.3 0.2 0.1 -Total Square (Post) (cm) 0.64 0.21 1.50 -Area of Debridement (cm) - Length 0.8 0.7 1.0 -Area of Debridement (cm) - Width 0.8 0.3 1.5 -Total Square (Area) (cm) 0.64 0.21 1.50 -Tunneling No No No -Undermining/Tunneling No No No -Circular Undermining No No No -Wound/Ulcer Outcome Not Healed Not Healed Not Healed -Ulcer Cleansing Rinsed/ Rinsed/ Not Cleansed Irrigated with Irrigated with Saline Saline -Foul Odor after Cleansing No No No -Bioengineered Tissue No No No -Bleeding Controlled with Pressure Pressure Pressure -Treatment Response Procedure Procedure Procedure Tolerated Well Tolerated Well Tolerated Well -Offloading No No -Debridement - Subq, 1st 20sq cm Yes Yes Yes Pain Scale: 0-10 Numeric Is Patient Pain Free? Yes Yes Yes - Nurse 3 - General Ulcer D/C NN Start: 01/21/25 13:22 Freq: Status: Active Protocol: Activity Type Activity Date Activity User E-sign Co-sign Detail Recorded Client Recorded Date Recorded By Document 01/21/25 14:38 RB [id number] 01/21/25 14:39 RB Document 01/28/25 15:56 DL [id number] 01/28/25 15:58 DL Document 02/04/25 14:51 [facility] [id number] 02/04/25 14:52 [facility] 01/21/25 01/28/25 02/04/25 14:38 15:56 14:51 [facility]ound [facility] Center Nurse 3 #7- R GR TOE -Ulcer Cleansing Rinsed/ Irrigated with Saline -Other Dressing Pad and protect -Primary Dressing Covered/Secured with Dry Gauze, Secured with Tape -Wound Comment(s) lota #6- R HEEL -Ulcer Cleansing Rinsed/ Rinsed/ Rinsed/ Irrigated with Irrigated with Irrigated with Saline Saline Saline -Foul Odor after Cleansing No No -Primary Dressing Applied C Hydrogel, NonAdherent Contact Layer -Other Dressing pt own magalis/ adaptic, adaptic hydrogel -Primary Dressing Covered/Secured with Dry Gauze,Dry Dry Gauze & Dry Gauze & Gauze & Roll Roll Gauze, Roll Gauze, Gauze,Secured Secured with Secured with with Tape Tape Tape -Hydrogel 1 -Wound Comment(s) Dressing applie per Raj Constantino today RLE -Tubular Bandage Single Layer Single Layer Single Layer -Size of Tubigrip Used Size F Size F Size F -Size F ($) 1 1 1 Treatment Response Procedure Procedure Procedure Tolerated Well Tolerated Well Tolerated Well Pain Scale: 0-10 Numeric Is Patient Pain Free? 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: CODE(S): L97.412 - Non-pressure chronic ulcer of right heel and midfoot with fat layer exposed (2) Chronic ulcer of right heel with fat layer exposed: CODE(S): L97.412 - Non-pressure chronic ulcer of right heel and midfoot with fat layer exposed (3) Diabetic ulcer of foot associated with diabetes mellitus due to underlying condition, with fat layer exposed: CODE(S): E08.621 - Diabetes mellitus due to underlying condition with foot ulcer; L97.502 - Non-pressure chronic ulcer of other part of unspecified foot with fat layer exposed QUALIFIERS: Diabetic foot ulcer location: heel Laterality: right Qualified Code(s): E08.621 - Diabetes mellitus due to underlying condition with foot ulcer; L97.412 - Non-pressure chronic ulcer of right heel and midfoot with fat layer exposed (4) Diabetic ulcer of toe: CODE(S): E11.621 - Type 2 diabetes mellitus with foot ulcer; L97.509 - Non-pressure chronic ulcer of other part of unspecified foot with unspecified severity QUALIFIERS: Diabetes mellitus type: type 2 Laterality: right Non-pressure ulcer stage: with other severity Qualified Code(s): E11.621 - Type 2 diabetes mellitus with foot ulcer; L97.518 - Non-pressure chronic ulcer of other part of right foot with other specified severity (5) Type 2 diabetes mellitus with foot ulcer: CODE(S): E11.621 - Type 2 diabetes mellitus with foot ulcer; L97.509 - Non-pressure chronic ulcer of other part of unspecified foot with unspecified severity QUALIFIERS: Diabetes mellitus care home insulin use: with care home use Qualified Code(s): E11.621 - Type 2 diabetes mellitus with foot ulcer; L97.509 - Non-pressure chronic ulcer of other part of unspecified foot with unspecified severity; 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 (6) Diabetic foot ulcer: CODE(S): E11.621 - Type 2 diabetes mellitus with foot ulcer; L97.509 - Non-pressure chronic ulcer of other part of unspecified foot with unspecified severity QUALIFIERS: Diabetic foot ulcer location: heel Diabetes mellitus type: type 2 Laterality: right Non-pressure ulcer stage: with fat layer exposed Qualified Code(s): E11.621 - Type 2 diabetes mellitus with foot ulcer; L97.412 - Non-pressure chronic ulcer of right heel and midfoot with fat layer exposed (7) History of total knee arthroplasty: CODE(S): Z96.659 - Presence of unspecified artificial knee joint (8) Morbid obesity with BMI of 45.0-49.9, adult: CODE(S): E66.01 - Morbid (severe) obesity due to excess calories; Z68.42 - Body mass index [BMI] 45.0-49.9, adult (9) Diabetic polyneuropathy: CODE(S): E11.42 - Type 2 diabetes mellitus with diabetic polyneuropathy (10) Benign prostatic hyperplasia: CODE(S): N40.0 - Benign prostatic hyperplasia without lower urinary tract symptoms (11) Diabetes mellitus type 2 with complications, uncontrolled: (12) History of pulmonary embolism: CODE(S): Z86.711 - Personal history of pulmonary embolism (13) History of deep vein thrombosis (DVT) of lower extremity: CODE(S): Z86.718 - Personal history of other venous thrombosis and embolism (14) Hypertension: CODE(S): I10 - Essential (primary) hypertension QUALIFIERS: Hypertension type: primary hypertension Qualified Code(s): I10 - Essential (primary) hypertension (15) Debility: CODE(S): R53.81 - Other malaise (16) Lower extremity edema: CODE(S): R60.0 - Localized edema (17) Status post lumbar surgery: CODE(S): Z98.890 - Other specified postprocedural states (18) Spondylosis: CODE(S): M47.9 - Spondylosis, unspecified (19) GRETCHEN treated with BiPAP: CODE(S): G47.33 - Obstructive sleep apnea (adult) (pediatric) (20) Former tobacco use: CODE(S): Z87.891 - Personal history of nicotine dependence (21) VTE (venous thromboembolism): CODE(S): I82.90 - Acute embolism and thrombosis of unspecified vein (22) Dyslipidemia: CODE(S): E78.5 - Hyperlipidemia, unspecified (23) Hx of total knee replacement: CODE(S): Z96.659 - Presence of unspecified artificial knee joint (24) History of vascular surgery: CODE(S): Z98.890 - Other specified postprocedural states (25) Hx of laminectomy: CODE(S): Z98.890 - Other specified postprocedural states (26) History of pyloromyotomy: CODE(S): Z98.890 - Other specified postprocedural states (27) Onychomycosis: CODE(S): B35.1 - Tinea unguium (28) Stage 3b chronic kidney disease (CKD): CODE(S): N18.32 - Chronic kidney disease, stage 3b (29) Diabetic foot ulcer associated with diabetes mellitus due to underlying condition: CODE(S): E08.621 - Diabetes mellitus due to underlying condition with foot ulcer; L97.509 - Non-pressure chronic ulcer of other part of unspecified foot with unspecified severity (30) Charcot arthropathy: CODE(S): M14.60 - Charcot's joint, unspecified site PLAN: Plan This is a 69-year-old male who presented with recurrent ulcerations of the right postero-lateral heel and right great toe. The patient is obese and known to be diabetic. He also suffers from multiple other pre-existing medical problems. The ulcerations appear to be pressure and diabetes related. The patient's laboratory results from January 06, 2025, have been reviewed. The importance of offloading measures has been discussed with the patient. He is to continue wearing his offloading footwear, previously fitted by his Investment Broker, Dr. Saurabh Dasilva. However, the fit of these shoes may need to be reevaluated. Whether the right postero-lateral heel ulceration is due to poorly fitted footwear, or pressure from the bed surface, is not clear. The patient claims to sleep on his back, and the site of the ulcer on the posterior heel may be due to pressure against the bed surface. Therefore, the patient has been advised to obtain a Podus boot for offloading purposes. He has obtained the Podus boot and has been implementing its use. It appears that he may not be totally compliant with the use of the Podus boot. With respect to this ulceration, we are to continue the use of collagen hydrogel applied topically on a daily basis. This is to be covered by gauze. The patient has been instructed in the appropriate means of application. The dry gangrene on the tip of the right great toe has now sloughed, and a nearly total healed ulceration remains, almost completely epithelialized. There appears to be blood staining subcutaneously. It is to be left undisturbed, and will be monitored on a serial basis. The patient has been advised to optimize his nutritional intake, as well as his diabetic control. We are to continue the use of a single Tubigrip to the right lower extremity, which will be donned on a daily basis. The patient does have a history of swelling in his lower extremities. He has been advised to continue using his mechanical pneumatic compression pumps several times daily. He has also been advised to elevate his lower extremities as much as possible. Prolonged idle sitting has been discouraged. Ambulation has been encouraged. Weight loss is also been encouraged. It is noted that the patient was recently hospitalized at [facility] from January 08, 2025, until January 17, 2025. He was treated for bacteremia, though there is question as to its source. During the time of his hospital stay, he was thought to have community- acquired pneumonia. He was treated with intravenous antibiotics during the term of his hospitalization, and was discharged on doxycycline, which has been completed. The patient is to return in 1 week for reevaluation. Total time: 25 minutes
== END 2025-02-09 23:59 | disposition home or self-care (01) ==
LOC: WC 14:15
PROVIDERS: PCP Internal Medicine; Referring Provider Internal Medicine; Visit Provider Surgery
DX: E11.621 Type 2 diabetes mellitus with foot ulcer (principal); L97.412 Non-pressure chronic ulcer of right heel and midfoot with fat layer exposed; L97.519 Non-pressure chronic ulcer of other part of right foot with unspecified severity; E66.01 Morbid (severe) obesity due to excess calories; Z68.42 Body mass index [BMI] 45.0-49.9, adult; Z79.4 Long term (current) use of insulin; E11.42 Type 2 diabetes mellitus with diabetic polyneuropathy; E11.22 Type 2 diabetes mellitus with diabetic chronic kidney disease; E11.610 Type 2 diabetes mellitus with diabetic neuropathic arthropathy; N18.32 Chronic kidney disease, stage 3b; I12.9 Hypertensive chronic kidney disease with stage 1 through stage 4 chronic kidney disease, or unspecified chronic kidney disease; B35.1 Tinea unguium; E78.00 Pure hypercholesterolemia, unspecified; R60.0 Localized edema; G47.33 Obstructive sleep apnea (adult) (pediatric); N40.0 Benign prostatic hyperplasia without lower urinary tract symptoms; R53.81 Other malaise; M47.9 Spondylosis, unspecified; Z79.82 Long term (current) use of aspirin; Z79.85 Long-term (current) use of injectable non-insulin antidiabetic drugs; Z79.01 Long term (current) use of anticoagulants; Z79.899 Other long term (current) drug therapy; Z87.891 Personal history of nicotine dependence; Z86.718 Personal history of other venous thrombosis and embolism; Z96.652 Presence of left artificial knee joint
CPT/HCPCS: 11042

== ENCOUNTER 2025-03-03 14:15 | Outpatient (RCR) | payer MEDICARE, BC, SELFPAY ==
[2025-02-10 14:51] VITALS: BP 181/99; PULSE 84; RESP 18; TEMP 36.7
--- NOTE | 2025-02-11 08:45 | WC ---
PHOTO 02/10/25 RIGHT HALLUX
--- NOTE | 2025-02-12 16:17 | PCM.WC.HP ---
History of Present Illness Date of Service: 02/10/25 Chief Complaint: Right heel ulcer and right hallux ulcer History of Wound: This is a 69 year-old male who presented to [facility] for evaluation of a right heel ulcer. It started as a a pressure ulcer in February 2022 when he he was in TCU and it healed. It then became a blister right before his Left TKR surgery. He had his left knee replaced 07/14/22 at [facility]. 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 He also has a history of diabetes type II with peripheral polyneuropathy, HTN, lymphedema, hypercholesterolemia and PE that he is on Xerelto. Wound culture obtained on 08/30/22 which are positive for VRE, Kocuria kristinae and Corynebacterium striatum. He will completed the Linezolid. Wound culture obtained 06/20/23 which was positive for Staphylococcus pseudintermediu, Pseudomonas aeruginosa, Corynebacterium minutissiumum, and Anaerobic cocci. He was started on Levaquin and Flagyl. Foot xray 09/27/22 - Osteopenia with diffuse osteoarthritic changes. Diffuse soft tissue swelling with ossification of the distal Achilles tendon. No acute abnormality or evidence of erosive changes. Did undergo updated radiograph of the right foot 11/08/2023 with no noted changes from previous x-ray. This is a recurring ulceration to both distal tuft of the right hallux and posterior lateral heel. He stated both sites had scabbed up and he was previously discharged. However, scabs have later broken down with re-ulceration. 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 Type 2 diabetes mellitus with foot ulcer Non-pressure chronic ulcer of other part of right foot with fat layer exposed Acute painful diabetic polyneuropathy Chronic ulcer of right heel with fat layer exposed Benign prostatic hyperplasia Diabetic polyneuropathy Hypertension History of pulmonary embolism Lymphedema Spondylosis Nephrolithiasis Diabetic ulcer of foot associated with diabetes mellitus due to underlying condition, with fat layer exposed Charcot arthropathy Diabetic foot ulcer Diabetic foot ulcer associated with diabetes mellitus due to underlying condition Stage 3b chronic kidney disease (CKD) Onychomycosis History of deep vein thrombosis (DVT) of lower extremity Diabetic ulcer of toe VTE (venous thromboembolism) Dyslipidemia Diabetes mellitus type 2 with complications, uncontrolled Morbid obesity with BMI of 45.0-49.9, adult GRETCHEN treated with BiPAP Morbid obesity Former tobacco use BPH (benign prostatic hyperplasia) HTN (hypertension) Diabetes mellitus Home Medications ?Medication ?Instructions ?Recorded ?Last Taken ?Type atorvastatin 20 mg tablet 20 mg PO QHS cholesterol 08/27/15 02/21/22 History furosemide 40 mg tablet 80 mg PO DAILY diuretic 08/27/15 02/22/22 History rivaroxaban 20 mg tablet (Xarelto) 20 mg PO DINNER blood thinner 03/23/16 02/21/22 History doxazosin 4 mg tablet 4 mg PO QHS blood pressure 04/03/20 02/21/22 History insulin lispro 100 unit/mL 20 unit subcut BREAKFAST diabetes 02/23/22 02/22/22 History subcutaneous pen insulin lispro 100 unit/mL 20 unit subcut LUNCH diabetes 02/23/22 02/22/22 History subcutaneous pen gabapentin 600 mg tablet 600 mg PO TIDCM Nerve Pain 02/24/22 Unknown History insulin glargine-yfgn 100 unit/mL 50 unit (0.5 mL) subcut QHS dm #0 04/10/22 Unknown Rx (3 mL) subcutaneous pen mL insulin lispro 100 unit/mL 20 unit (0.2 mL) subcut DINNER dm 04/10/22 Unknown Rx subcutaneous pen (Humalog KwikPen #0 mL (U-100) Insulin) aspirin 81 mg capsule 81 mg PO DAILY heart health 08/16/22 Unknown History calcium carbonate (Tums) 200 mg PO BID PRN Heartburn 08/16/22 Unknown History dulaglutide 3 mg/0.5 mL 3 mg subcut QWEEK dm 08/16/22 Unknown History subcutaneous pen injector (Trulicity) hydrocodone-acetaminophen 5-325mg 1 tab PO Q8H PRN Pain 08/16/22 Unknown History 5mg-325mg zinc 50 mg capsule 50 mg PO DAILY supplement 08/16/22 Unknown History losartan 100 mg tablet 100 mg PO DAILY bp 12/10/24 Unknown History metoprolol tartrate 75 mg tablet 75 mg PO BID bp 01/08/25 Unknown History tizanidine 4 mg tablet 4 mg PO TID PRN PRN low back pain 01/08/25 Unknown History cefdinir 300 mg capsule 300 mg PO BID 4 days #8 caps 01/15/25 Unknown Rx Allergy/AdvReac Type Severity Reaction Status Date / Time Penicillins Allergy Unknown Hives Verified 01/08/25 14:25 erythromycin base AdvReac Nausea Verified 01/08/25 14:25 (Erythromycin Base) Family History Mother Diabetes Heart disease Coagulopathy Father Heart disease CVA (cerebral vascular accident) Parkinsons disease Surgical History History of total knee arthroplasty Status post lumbar surgery History of pyloromyotomy History of total knee arthroplasty Hx of total knee replacement History of vascular surgery Status post creation of pericardial window Hx of laminectomy Social History household members: spouse Smoking Status: Former smoker how long ago did patient quit smoking: Quit 1994, smoked 1 ppd since age 15. alcohol intake: never substance use type: does not use Physical Exam Const alert, oriented x3, no apparent distress, no limitations and well nourished Constitutional Narrative: The patient's BMI is 48.8. General Appearance: cooperative, comfortable and well developed Orientation / Consciousness: awake, oriented to person, oriented to place and oriented to time Exam Limitations: no limitations HEENT normocephalic and head/scalp atraumatic Head and Scalp: normal to inspection, normocephalic and atraumatic Face and Sinus: normal facial exam Nose: external nose normal External Ear: external ears normal Eyes EOMs intact bilaterally General Eye: normal appearance of both eyes Resp normal respiratory effort, normal air movement, no retractions and no use of accessory muscles Effort and Inspection: able to speak in complete sentences GI GI Narrative: The abdomen is obese. Extremity no calf tenderness General Extremity: Negative for clubbing or cyanosis Skin Wound Narrative: The ulceration on the patient's right posterolateral heel persists. It appears to be a Gomez grade 1 ulceration. It extends through all layers of the dermis and into the subcutaneous tissues. There is no significant erythema or cellulitis. There is no obvious infection. Ulcer margins are not well beveled. A small amount of callus is noted at the periphery of the ulcer. There is a moderate amount of bioburden and nonviable tissue, as well as a large amount of desiccated Joelle. Dimensions are documented elsewhere. The ulceration appears to have diminished in size since last observed. The tip of the patient's right great toe reveals a minimal residual ulceration with subcutaneous old blood staining. This site is nearly healed, with apparent near-total epithelialization. Onychomycosis is noted involving the toenails of the right foot. Neuro oriented x3, CN's II-XII intact bilaterally, moves all extremities and no focal motor deficits Sensorium / Orientation: awake, alert, oriented to person, oriented to place and oriented to time Speech: speech normal Psych Appearance: grossly normal and appropriate Attitude: calm Activity / Motor Behavior: appropriate eye contact Speech: normal speech Mood & Affect: euthymic mood Thought Process: normal thought process Thought Content: normal thought content Attention / Concentration: attention grossly intact Debridement Note Debridement Note Wound debrided: Right postero-lateral heel ulceration Laterality: Right Wound Grade/Stage: Gomez Grade 1 Type of Debridement: Excisional debridement Anesthesia Used: 5% Lidocaine Gel Depth: Down to and including healthy tissue and in the subcutaneous layer Percentage of wound debrided: 100 Instrument Used: 5mm curette Tissue Removed: Bioburden, residual desiccated Joelle, and nonviable tissue; Callus Severity: Fat Layer Exposed Amount of bleeding with debridement: Mild Bleeding Controlled with: Compression and gauze Patient tolerated procedure: Patient tolerated procedure well Post-Debridement Measurements and Additional Note: Post-Debridement Measurements/Treatment - Nurse 1 - General Ulcer Assessment Start: 02/10/25 14:51 Freq: Status: Active Protocol: LAM.MIRA Activity Type Activity Date Activity User E-sign Co-sign Detail Recorded Client Recorded Date Recorded By Document 02/10/25 14:51 [id number] 02/10/25 14:58 YASMINE 02/10/25 14:51 - Today's Visit Information Type of service Follow-up Visit (Physician/PARTS DESIGNER ) Arrival Mode Ambulatory, Walker Patient Identification Verified (Name & No ) Patient Requires Transmission-Based No Precautions Vital Signs Temperature (97.8 F-99.1 F) 98.1 F Temperature Source Temporal Pulse Rate (60-100) 84 Pulse Location Monitor Respiratory Rate (12-18) 18 Respiratory rate source Observation Blood Pressure (90/60-120/80) 181/99 H Blood Pressure Mean 126 Source Monitor Position Semi-Fowlers Blood Pressure Location Left Forearm History Since Last Visit- (Skip if this is Patient's initial visit) Have you changed medications since your Yes last visit? Any new allergies or adverse reactions No Had a fall/change in ADL's that may No increase risk of falls Signs or symptoms of abuse and/or No neglect since last visit Have you been in the hospital since your No last visit? Has dressing in place as prescribed Yes Has compression in place as prescribed Yes Has offloadiing in place as prescribed Yes Experienced any changes in pain level or No management Left Footwear Regular Shoe Right Footwear Surgical Shoe with pressure relief insole Pain Scale: 0-10 Numeric Is Patient Pain Free? Yes - Nurse 1 - General Ulcer Measurement Start: 02/10/25 14:51 Freq: Status: Active Protocol: Activity Type Activity Date Activity User E-sign Co-sign Detail Recorded Client Recorded Date Recorded By Document 02/10/25 14:51 YASMINE [id number] 02/10/25 14:58 YASMINE 02/10/25 14:51 Wound Center Nurse 1 #7- R GR TOE -Combined with other wound No -Current Size (cm) - Length 0.1 -Current Size (cm) - Width 0.1 -Current Size (cm) - Depth 0.1 -Total Square Cm 0.01 -Photo Taken Yes -Epithelialization Large 67-100% -Tunneling No -Undermining/Tunneling No -Circular Undermining No -Exudate Amt None Present #6- R HEEL -Combined with other wound No -Current Size (cm) - Length 0.1 -Current Size (cm) - Width 0.1 -Current Size (cm) - Depth 0.1 -Total Square Cm 0.01 -Photo Taken Yes -Epithelialization Large 67-100% -Tunneling No -Undermining/Tunneling No -Circular Undermining No Lower Limb Edema Present Yes Right Calf (cm) 48 Right Ankle (cm) 31.0 - Nurse 2 - General Ulcer CM Notes Start: 02/10/25 14:51 Freq: Status: Active Protocol: Activity Type Activity Date Activity User E-sign Co-sign Detail Recorded Client Recorded Date Recorded By Document 02/10/25 15:15 DS [id number] 02/10/25 15:16 DS Edit Result 02/10/25 15:15 DS (1) [id number] 02/10/25 15:18 DS (1) #6- R HEEL - Post Debridement (cm) - Length => 2.3 - Post Debridement (cm) - Width => 1.0 - Post Debridement (cm) - Depth => 0.2 - Total Square (Post) (cm) => 2.30 - Area of Debridement (cm) - Length => 2.3 - Area of Debridement (cm) - Width => 1.0 - Total Square (Area) (cm) => 2.30 02/10/25 15:15 Wound Center Nurse 2 #7- R GR TOE -Time 15:15 -Correct Patient Yes -Correct Side, Site, Position Yes -Procedure Performed No -Wound/Ulcer Outcome Healed- Epithelialized #6- R HEEL -Time 15:15 -Correct Patient Yes -Correct Side, Site, Position Yes -Correct Procedure Yes -Procedure Performed Yes -Type of Procedure Debridement -Clinical Debridement Subcutaneous -Tissue Removed Subcutaneous -Post Debridement (cm) - Length 2.3 -Post Debridement (cm) - Width 1.0 -Post Debridement (cm) - Depth 0.2 -Total Square (Post) (cm) 2.30 -Area of Debridement (cm) - Length 2.3 -Area of Debridement (cm) - Width 1.0 -Total Square (Area) (cm) 2.30 -Tunneling No -Undermining/Tunneling No -Circular Undermining No -Wound/Ulcer Outcome Not Healed -Ulcer Cleansing gauze -Foul Odor after Cleansing No -Bioengineered Tissue No -Bleeding Controlled with Pressure -Treatment Response Procedure Tolerated Well -Debridement - Subq, 1st 20sq cm Yes Pain Scale: 0-10 Numeric Is Patient Pain Free? Yes - Nurse 3 - General Ulcer D/C NN Start: 02/10/25 14:51 Freq: Status: Active Protocol: Activity Type Activity Date Activity User E-sign Co-sign Detail Recorded Client Recorded Date Recorded By Document 02/10/25 15:21 [facility] [id number] 02/10/25 15:22 [facility] 02/10/25 15:21 Wound Care Center Nurse 3 #6- R HEEL -Primary Dressing Applied NonAdherent Contact Layer -Other Dressing hydrogel -Primary Dressing Covered/Secured with Dry Gauze & Roll Gauze, Secured with Tape -Other Covering drsg per yasmine rn RLE -Tubular Bandage Single Layer -Size of Tubigrip Used Size F -Size F ($) 1 Treatment Response Procedure Tolerated Well Pain Scale: 0-10 Numeric Is Patient Pain Free? 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: CODE(S): L97.412 - Non-pressure chronic ulcer of right heel and midfoot with fat layer exposed (2) Chronic ulcer of right heel with fat layer exposed: CODE(S): L97.412 - Non-pressure chronic ulcer of right heel and midfoot with fat layer exposed (3) Diabetic ulcer of foot associated with diabetes mellitus due to underlying condition, with fat layer exposed: CODE(S): E08.621 - Diabetes mellitus due to underlying condition with foot ulcer; L97.502 - Non-pressure chronic ulcer of other part of unspecified foot with fat layer exposed QUALIFIERS: Diabetic foot ulcer location: heel Laterality: right Qualified Code(s): E08.621 - Diabetes mellitus due to underlying condition with foot ulcer; L97.412 - Non-pressure chronic ulcer of right heel and midfoot with fat layer exposed (4) Diabetic ulcer of toe: CODE(S): E11.621 - Type 2 diabetes mellitus with foot ulcer; L97.509 - Non-pressure chronic ulcer of other part of unspecified foot with unspecified severity QUALIFIERS: Diabetes mellitus type: type 2 Laterality: right Non-pressure ulcer stage: with other severity Qualified Code(s): E11.621 - Type 2 diabetes mellitus with foot ulcer; L97.518 - Non-pressure chronic ulcer of other part of right foot with other specified severity (5) Type 2 diabetes mellitus with foot ulcer: CODE(S): E11.621 - Type 2 diabetes mellitus with foot ulcer; L97.509 - Non-pressure chronic ulcer of other part of unspecified foot with unspecified severity QUALIFIERS: Diabetes mellitus medical terminologist insulin use: with senior living use Qualified Code(s): E11.621 - Type 2 diabetes mellitus with foot ulcer; L97.509 - Non-pressure chronic ulcer of other part of unspecified foot with unspecified severity; Z79.4 - long-term (current) use of insulin (6) Diabetic foot ulcer: CODE(S): E11.621 - Type 2 diabetes mellitus with foot ulcer; L97.509 - Non-pressure chronic ulcer of other part of unspecified foot with unspecified severity QUALIFIERS: Diabetic foot ulcer location: heel Diabetes mellitus type: type 2 Laterality: right Non-pressure ulcer stage: with fat layer exposed Qualified Code(s): E11.621 - Type 2 diabetes mellitus with foot ulcer; L97.412 - Non-pressure chronic ulcer of right heel and midfoot with fat layer exposed (7) History of total knee arthroplasty: CODE(S): Z96.659 - Presence of unspecified artificial knee joint (8) Morbid obesity with BMI of 45.0-49.9, adult: CODE(S): E66.01 - Morbid (severe) obesity due to excess calories; Z68.42 - Body mass index [BMI] 45.0-49.9, adult (9) Diabetic polyneuropathy: CODE(S): E11.42 - Type 2 diabetes mellitus with diabetic polyneuropathy (10) Benign prostatic hyperplasia: CODE(S): N40.0 - Benign prostatic hyperplasia without lower urinary tract symptoms (11) Diabetes mellitus type 2 with complications, uncontrolled: (12) History of pulmonary embolism: CODE(S): Z86.711 - Personal history of pulmonary embolism (13) History of deep vein thrombosis (DVT) of lower extremity: CODE(S): Z86.718 - Personal history of other venous thrombosis and embolism (14) Hypertension: CODE(S): I10 - Essential (primary) hypertension QUALIFIERS: Hypertension type: primary hypertension Qualified Code(s): I10 - Essential (primary) hypertension (15) Debility: CODE(S): R53.81 - Other malaise (16) Lower extremity edema: CODE(S): R60.0 - Localized edema (17) Status post lumbar surgery: CODE(S): Z98.890 - Other specified postprocedural states (18) Spondylosis: CODE(S): M47.9 - Spondylosis, unspecified (19) GRETCHEN treated with BiPAP: CODE(S): G47.33 - Obstructive sleep apnea (adult) (pediatric) (20) Former tobacco use: CODE(S): Z87.891 - Personal history of nicotine dependence (21) VTE (venous thromboembolism): CODE(S): I82.90 - Acute embolism and thrombosis of unspecified vein (22) Dyslipidemia: CODE(S): E78.5 - Hyperlipidemia, unspecified (23) Hx of total knee replacement: CODE(S): Z96.659 - Presence of unspecified artificial knee joint (24) History of vascular surgery: CODE(S): Z98.890 - Other specified postprocedural states (25) Hx of laminectomy: CODE(S): Z98.890 - Other specified postprocedural states (26) History of pyloromyotomy: CODE(S): Z98.890 - Other specified postprocedural states (27) Onychomycosis: CODE(S): B35.1 - Tinea unguium (28) Stage 3b chronic kidney disease (CKD): CODE(S): N18.32 - Chronic kidney disease, stage 3b (29) Diabetic foot ulcer associated with diabetes mellitus due to underlying condition: CODE(S): E08.621 - Diabetes mellitus due to underlying condition with foot ulcer; L97.509 - Non-pressure chronic ulcer of other part of unspecified foot with unspecified severity (30) Charcot arthropathy: CODE(S): M14.60 - Charcot's joint, unspecified site PLAN: Plan This is a 69-year-old male who presented with recurrent ulcerations of the right postero-lateral heel and right great toe. The patient is obese and known to be diabetic. He also suffers from multiple other pre-existing medical problems. The ulcerations appear to be pressure and diabetes related. The patient's laboratory results from January 06, 2025, have been reviewed. The importance of offloading measures has been discussed with the patient. He is to continue wearing his offloading footwear, previously fitted by his Mold Bunch Trimmer, Dr. Saurabh Dasilva. However, the fit of these shoes may need to be reevaluated. Whether the right postero-lateral heel ulceration is due to poorly fitted footwear, or pressure from the bed surface, is not clear. The patient claims to sleep on his back, and the site of the ulcer on the posterior heel may be due to pressure against the bed surface. Therefore, the patient has been advised to obtain a Podus boot for offloading purposes. He has obtained the Podus boot and has been implementing its use. It appears that he may not be totally compliant with the use of the Podus boot. With respect to this ulceration, we are to continue the use of collagen hydrogel applied topically on a daily basis. This is to be covered by Adaptic and gauze. The patient has been instructed in the appropriate means of application. The dry gangrene on the tip of the right great toe has now sloughed, and a nearly total healed ulceration remains, almost completely epithelialized. There appears to be blood staining subcutaneously. It is to be left undisturbed, and will be monitored on a serial basis. The patient has been advised to optimize his nutritional intake, as well as his diabetic control. We are to continue the use of a single Tubigrip to the right lower extremity, which will be donned on a daily basis. The patient does have a history of swelling in his lower extremities. He has been advised to continue using his mechanical pneumatic compression pumps several times daily. He has also been advised to elevate his lower extremities as much as possible. Prolonged idle sitting has been discouraged. Ambulation has been encouraged. Weight loss has also been encouraged. The patient is to return in 1 week for reevaluation. Total time: 24 minutes
[2025-02-17 14:24] VITALS: BP 166/94; PULSE 96; RESP 18; TEMP 36.2
--- NOTE | 2025-02-18 08:54 | WC ---
PHOTO 02/17/25 RIGHT GREAT TOE
--- NOTE | 2025-02-18 08:56 | WC ---
PHOTO RIGHT HEEL 02/17/25
--- NOTE | 2025-02-21 17:41 | HP.PCM_ITS ---
History of Present Illness Date of Service: 02/17/25 Chief Complaint: Right heel ulcer and right hallux ulcer History of Wound: This is a 69 year-old male who presented to [facility] for evaluation of a right heel ulcer. It started as a a pressure ulcer in February 2022 when he he was in TCU and it healed. It then became a blister right before his Left TKR surgery. He had his left knee replaced 07/14/22 at [facility]. 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 He also has a history of diabetes type II with peripheral polyneuropathy, HTN, lymphedema, hypercholesterolemia and PE that he is on Xerelto. Wound culture obtained on 08/30/22 which are positive for VRE, Kocuria kristinae and Corynebacterium striatum. He will completed the Linezolid. Wound culture obtained 06/20/23 which was positive for Staphylococcus pseudintermediu, Pseudomonas aeruginosa, Corynebacterium minutissiumum, and Anaerobic cocci. He was started on Levaquin and Flagyl. Foot xray 09/27/22 - Osteopenia with diffuse osteoarthritic changes. Diffuse soft tissue swelling with ossification of the distal Achilles tendon. No acute abnormality or evidence of erosive changes. Did undergo updated radiograph of the right foot 11/08/2023 with no noted changes from previous x-ray. This is a recurring ulceration to both distal tuft of the right hallux and posterior lateral heel. He stated both sites had scabbed up and he was previously discharged. However, scabs have later broken down with re- ulceration. 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 Type 2 diabetes mellitus with foot ulcer Non-pressure chronic ulcer of other part of right foot with fat layer exposed Acute painful diabetic polyneuropathy Chronic ulcer of right heel with fat layer exposed Benign prostatic hyperplasia Diabetic polyneuropathy Hypertension History of pulmonary embolism Lymphedema Spondylosis Nephrolithiasis Diabetic ulcer of foot associated with diabetes mellitus due to underlying condition, with fat layer exposed Charcot arthropathy Diabetic foot ulcer Diabetic foot ulcer associated with diabetes mellitus due to underlying condition Stage 3b chronic kidney disease (CKD) Onychomycosis History of deep vein thrombosis (DVT) of lower extremity Diabetic ulcer of toe VTE (venous thromboembolism) Dyslipidemia Diabetes mellitus type 2 with complications, uncontrolled Morbid obesity with BMI of 45.0-49.9, adult GRETCHEN treated with BiPAP Morbid obesity Former tobacco use BPH (benign prostatic hyperplasia) HTN (hypertension) Diabetes mellitus Home Medications ?Medication ?Instructions ?Recorded ?Last Taken ?Type atorvastatin 20 mg tablet 20 mg PO QHS cholesterol 02/21/22 History furosemide 40 mg tablet 80 mg PO DAILY diuretic 08/1302/22/22 History rivaroxaban 20 mg tablet (Xarelto) 20 mg PO DINNER blo od thinner 03/23/16 02/21/22 History doxazosin 4 mg tablet 4 mg PO QHS blood pressure 0 04/03/20 02/21/22 History insulin lispro 100 unit/mL 20 unit subcut BREAKFAST di abetes 02/23/22 02/22/22 History subcutaneous pen insulin lispro 100 unit/mL 20 unit subcut LUNCH diabet es 02/23/22 02/22/22 History subcutaneous pen gabapentin 600 mg tablet 600 mg PO TIDCM Nerve Pain 0 02/24/22 Unknown History insulin glargine-yfgn 100 unit/mL 50 unit (0.5 mL) sub cut QHS dm #0 04/10/22 Unknown Rx (3 mL) subcutaneous pen mL insulin lispro 100 unit/mL 20 unit (0.2 mL) subcut DIN NER dm 04/10/22 Unknown Rx subcutaneous pen (Humalog KwikPen #0 mL (U-100) Insulin) aspirin 81 mg capsule 81 mg PO DAILY heart health 08/16/22 Unknown History calcium carbonate (Tums) 200 mg PO BID PRN Heartburn 08/16/22 Unknown History dulaglutide 3 mg/0.5 mL 3 mg subcut QWEEK dm 3 Unknown History subcutaneous pen injector (Trulicity) hydrocodone-acetaminophen 5-325mg 1 tab PO Q8H PRN Fei n 08/16/22 Unknown History 5mg-325mg zinc 50 mg capsule 50 mg PO DAILY supplement Unknown History losartan 100 mg tablet 100 mg PO DAILY bp 12/10/24 Unknown History metoprolol tartrate 75 mg tablet 75 mg PO BID bp 01/08 Unknown History tizanidine 4 mg tablet 4 mg PO TID PRN PRN low back pain 01/08/25 Unknown History cefdinir 300 mg capsule 300 mg PO BID 4 days #8 caps 01/15/25 Unknown Rx Allergy/AdvReac Type Severity Reaction Status Date / Time Penicillins Allergy Unknown Hives Verified 01/08/25 14:25 erythromycin base AdvReac Nausea Verified 01/08/25 14:25 (Erythromycin Base) Family History Mother Diabetes Heart disease Coagulopathy Father Heart disease CVA (cerebral vascular accident) Parkinsons disease Surgical History History of total knee arthroplasty Status post lumbar surgery History of pyloromyotomy History of total knee arthroplasty Hx of total knee replacement History of vascular surgery Status post creation of pericardial window Hx of laminectomy Social History household members: spouse Smoking Status: Former smoker how long ago did patient quit smoking: Quit 1994, smoked 1 ppd since age 15. alcohol intake: never substance use type: does not use Physical Exam Const alert, oriented x3, no apparent distress, no limitations and well nourished Constitutional Narrative: The patient's BMI is 48.8. General Appearance: cooperative, comfortable and well developed Orientation / Consciousness: awake, oriented to person, oriented to place and oriented to time Exam Limitations: no limitations HEENT normocephalic and head/scalp atraumatic Head and Scalp: normal to inspection, normocephalic and atraumatic Face and Sinus: normal facial exam Nose: external nose normal External Ear: external ears normal Eyes EOMs intact bilaterally General Eye: normal appearance of both eyes Resp normal respiratory effort, normal air movement, no retractions and no use of accessory muscles Effort and Inspection: able to speak in complete sentences GI GI Narrative: The abdomen is obese. Extremity no calf tenderness General Extremity: Negative for clubbing or cyanosis Skin Wound Narrative: The ulceration on the patient's right posterolateral heel persists. It appears to be a Gomez grade 1 ulceration. It extends through all layers of the dermis and into the subcutaneous tissues. There is no significant erythema or cellulitis. There is no obvious infection. Ulcer margins are not well beveled. A small amount of callus is noted at the periphery of the ulcer. There is a moderate amount of bioburden and nonviable tissue, as well as a large amount of desiccated Joelle. Dimensions are documented elsewhere. The ulceration appears to have diminished in size since last observed. The tip of the patient's right great toe appears to be healed, but with hemorrhagic staining beneath the epithelial layer. Onychomycosis is noted involving the toenails of the right foot. Neuro oriented x3, CN's II-XII intact bilaterally, moves all extremities and no focal motor deficits Sensorium / Orientation: awake, alert, oriented to person, oriented to place and oriented to time Speech: speech normal Psych Appearance: grossly normal and appropriate Attitude: calm Activity / Motor Behavior: appropriate eye contact Speech: normal speech Mood & Affect: euthymic mood Thought Process: normal thought process Thought Content: normal thought content Attention / Concentration: attention grossly intact Debridement Note Debridement Note Wound debrided: Right postero-lateral heel ulceration Laterality: Right Wound Grade/Stage: Gomez Grade 1 Type of Debridement: Excisional debridement Anesthesia Used: 5% Lidocaine Gel Depth: Down to and including healthy tissue and in the subcutaneous layer Percentage of wound debrided: 100 Instrument Used: 5mm curette, Forceps and - (Scissors) Tissue Removed: Bioburden, residual desiccated Joelle, and nonviable tissue; C allus Severity: Fat Layer Exposed Amount of bleeding with debridement: Mild Bleeding Controlled with: Compression and gauze Patient tolerated procedure: Patient tolerated procedure well Post-Debridement Measurements and Additional Note: Post-Debridement Measurements/Treatment - Nurse 1 - General Ulcer Assessment Start: 02/10/25 14:51 Freq: Status: Active Protocol: NELL Activity Type Activity Date Activity User E-sign Co-sign Detail Recorded Client Recorded Date Recorded By Document 02/10/25 14:51 YASMINE [id number] 02/10/25 14:58 Document 02/17/25 14:24 KW [id number] 02/17/25 14:34 KW 02/10/25 02/17/25 14:51 14:24 - Today's Visit Information Type of service Follow-up Visit Follow-up Visit (Physician/TRACTOR OPERATOR LASER LEVELING (Physician/TRACTOR OPERATOR LASER LEVELING ) ) Arrival Mode Ambulatory, Ambulatory, Walker Walker Patient Identification Verified (Name & No Yes ) Patient Requires Transmission-Based No Precautions Vital Signs Temperature (97.8 F-99.1 F) 98.1 F 97.1 F L Temperature Source Temporal Temporal Pulse Rate (60-100) 84 96 Pulse Location Monitor Monitor Respiratory Rate (12-18) 18 18 Respiratory rate source Observation Observation Oxygen Delivery Method Room Air Blood Pressure (90/60-120/80) 181/99 H 166/94 H Blood Pressure Mean 126 118 Source Monitor Monitor Position Semi-Fowlers Sitting Blood Pressure Location Left Forearm Left Forearm History Since Last Visit- (Skip if this is Patient's initial visit) Have you changed medications since your Yes No last visit? Any new allergies or adverse reactions No No Had a fall/change in ADL's that may No No increase risk of falls Signs or symptoms of abuse and/or No No neglect since last visit Have you been in the hospital since your No No last visit? Has dressing in place as prescribed Yes Yes Has compression in place as prescribed Yes Yes Has offloadiing in place as prescribed Yes Yes Experienced any changes in pain level or No No management Left Footwear Regular Shoe Regular Shoe Right Footwear Surgical Shoe Surgical Shoe with pressure with pressure relief insole relief insole Pain Scale: 0-10 Numeric Is Patient Pain Free? Yes Yes - Nurse 1 - General Ulcer Measurement Start: 02/10/25 14:51 Freq: Status: Active Protocol: Activity Type Activity Date Activity User E-sign Co-sign Detail Recorded Client Recorded Date Recorded By Document 02/10/25 14:51 YASMINE [id number] 02/10/25 14:58 Document 02/17/25 14:24 KW [id number] 02/17/25 14:34 KW 02/10/25 02/17/25 14:51 14:24 Wound Center Nurse 1 #7- R GR TOE -Combined with other wound No -Current Size (cm) - Length 0.1 -Current Size (cm) - Width 0.1 -Current Size (cm) - Depth 0.1 -Total Square Cm 0.01 -Photo Taken Yes -Epithelialization Large 67-100% -Tunneling No -Undermining/Tunneling No -Circular Undermining No -Exudate Amt None Present #6- R HEEL -Combined with other wound No -Current Size (cm) - Length 0.1 2.3 -Current Size (cm) - Width 0.1 1 -Current Size (cm) - Depth 0.1 0.1 -Total Square Cm 0.01 2.3 -Date of Last Picture (Recall this 02/17/25 field) -Photo Taken Yes -Epithelialization Large 67-100% -Tunneling No -Undermining/Tunneling No -Circular Undermining No -Exudate Amt Medium -Exudate Type Serosanguineous -Wound Margin Indistinct, Non -Visible -Granulation Amt Small (1-33%) -Granulation Quality [place] -Necrosis Amt Large (67-100%) -Necrotic Tissue Type Adherent Slough -Texture (Lianna-wound Skin Appearance) Assessed,Callus -Moisture (Lianna-wound Skin Appearance) Assessed,Dry/ Scaly -Color (Lianna-wound Skin Appearance) Assessed -Temperature (Lianna-wound Skin No Abnormality Appearance) (Pt Warm) -Tenderness on Palpation (Lianna-wound No Skin Appearance) -Ulcer Cleansing Soap and Water -Foul Odor after Cleansing No -Anesthetic Used 5% Lidocaine Gel Lower Limb Edema Present Yes Right Calf (cm) 48 Right Ankle (cm) 31.0 WC - Nurse 2 - General Ulcer CM Notes Start: 02/10/25 14:51 Freq: Status: Active Protocol: Activity Type Activity Date Activity User E-sign Co-sign Detail Recorded Client Recorded Date Recorded By Document 02/10/25 15:15 DS [id number] 02/10/25 15:16 DS Edit Result 02/10/25 15:15 DS (1) [id number] 02/10/25 15:18 DS Document 02/17/25 15:00 DS [id number] 02/17/25 15:04 DS (1) #6- R HEEL - Post Debridement (cm) - Length => 2.3 - Post Debridement (cm) - Width => 1.0 - Post Debridement (cm) - Depth => 0.2 - Total Square (Post) (cm) => 2.30 - Area of Debridement (cm) - Length => 2.3 - Area of Debridement (cm) - Width => 1.0 - Total Square (Area) (cm) => 2.30 02/10/25 02/17/25 15:15 15:00 Wound Center Nurse 2 #7- R GR TOE -Time 15:15 -Correct Patient Yes -Correct Side, Site, Position Yes -Procedure Performed No -Wound/Ulcer Outcome Healed- Epithelialized #6- R HEEL -Time 15:15 15:00 -Correct Patient Yes Yes -Correct Side, Site, Position Yes Yes -Correct Procedure Yes Yes -Procedure Performed Yes Yes -Type of Procedure Debridement Debridement -Clinical Debridement Subcutaneous Subcutaneous -Tissue Removed Subcutaneous Subcutaneous -Post Debridement (cm) - Length 2.3 0.4 -Post Debridement (cm) - Width 1.0 0.3 -Post Debridement (cm) - Depth 0.2 0.1 -Total Square (Post) (cm) 2.30 0.12 -Area of Debridement (cm) - Length 2.3 0.4 -Area of Debridement (cm) - Width 1.0 0.3 -Total Square (Area) (cm) 2.30 0.12 -Tunneling No No -Undermining/Tunneling No No -Circular Undermining No No -Wound/Ulcer Outcome Not Healed Not Healed -Ulcer Cleansing gauze -Foul Odor after Cleansing No No -Bioengineered Tissue No No -Bleeding Controlled with Pressure Pressure -Treatment Response Procedure Procedure Tolerated Well Tolerated Well -Debridement - Subq, 1st 20sq cm Yes Yes Pain Scale: 0-10 Numeric Is Patient Pain Free? Yes Yes - Nurse 3 - General Ulcer D/C NN Start: 02/10/25 14:51 Freq: Status: Active Protocol: Activity Type Activity Date Activity User E-sign Co-sign Detail Recorded Client Recorded Date Recorded By Document 02/10/25 15:21 [facility] [id number] 02/10/25 15:22 [facility] Document 02/17/25 15:10 [id number] 02/17/25 15:11 02/10/25 02/17/25 15:21 15:10 Wound Care Center Nurse 3 #6- R HEEL -Primary Dressing Applied NonAdherent NonAdherent Contact Layer Contact Layer -Other Dressing hydrogel hydrogel -Primary Dressing Covered/Secured with Dry Gauze & Dry Gauze & Roll Gauze, Roll Gauze, Secured with Secured with Tape Tape -Other Covering drsg per yasmine rn RLE -Tubular Bandage Single Layer Single Layer -Size of Tubigrip Used Size F Size F -Size F ($) 1 1 Treatment Response Procedure Tolerated Well Pain Scale: 0-10 Numeric Is Patient Pain Free? 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: CODE(S): L97.412 - Non-pressure chronic ulcer of right heel and midfoot with fat layer exposed (2) Chronic ulcer of right heel with fat layer exposed: CODE(S): L97.412 - Non-pressure chronic ulcer of right heel and midfoot w ith fat layer exposed (3) Diabetic ulcer of foot associated with diabetes mellitus due to underlying condition, with fat layer exposed: CODE(S): E08.621 - Diabetes mellitus due to underlying condition with foot ulcer; L97.502 - Non-pressure chronic ulcer of other part of unspecified foot with fat layer exposed QUALIFIERS: Diabetic foot ulcer location: heel Laterality: right Qualified Code(s): E08.621 - Diabetes mellitus due to underlying condition with foot ulcer; L97.412 - Non-pressure chronic ulcer of right heel and midfoot with fat layer exposed (4) Diabetic ulcer of toe: CODE(S): E11.621 - Type 2 diabetes mellitus with foot ulcer; L97.509 - Non-pressure chronic ulcer of other part of unspecified foot with unspecified severity QUALIFIERS: Diabetes mellitus type: type 2 Laterality: right Non-pressure ulcer stage: with other severity Qualified Code(s): E11.621 - Type 2 diabetes mellitus with foot ulcer; L97.518 - Non-pressure chronic ulcer of other part of right foot with other specified severity (5) Type 2 diabetes mellitus with foot ulcer: CODE(S): E11.621 - Type 2 diabetes mellitus with foot ulcer; L97.509 - Non-pressure chronic ulcer of other part of unspecified foot with unspecified severity QUALIFIERS: Diabetes mellitus keno terminal operator insulin use: with residential use Qualified Code(s): E11.621 - Type 2 diabetes mellitus with foot ulcer; L97.509 - Non-pressure chronic ulcer of other part of unspecified foot with unspecified severity; Z79.4 - long term acute care registered nurse (current) use of insulin (6) Diabetic foot ulcer: CODE(S): E11.621 - Type 2 diabetes mellitus with foot ulcer; L97.509 - Non-pressure chronic ulcer of other part of unspecified foot with unspecified severity QUALIFIERS: Diabetic foot ulcer location: heel Diabetes mellitus type: type 2 Laterality: right Non-pressure ulcer stage: with fat layer exposed Qualified Code(s): E11.621 - Type 2 diabetes mellitus with foot ulcer; L97.412 - Non-pressure chronic ulcer of right heel and midfoot with fat layer exposed (7) History of total knee arthroplasty: CODE(S): Z96.659 - Presence of unspecified artificial knee joint (8) Morbid obesity with BMI of 45.0-49.9, adult: CODE(S): E66.01 - Morbid (severe) obesity due to excess calories; Z68.42 - Body mass index [BMI] 45.0-49.9, adult (9) Diabetic polyneuropathy: CODE(S): E11.42 - Type 2 diabetes mellitus with diabetic polyneuropathy (10) Benign prostatic hyperplasia: CODE(S): N40.0 - Benign prostatic hyperplasia without lower urinary tract symptoms (11) Diabetes mellitus type 2 with complications, uncontrolled: (12) History of pulmonary embolism: CODE(S): Z86.711 - Personal history of pulmonary embolism (13) History of deep vein thrombosis (DVT) of lower extremity: CODE(S): Z86.718 - Personal history of other venous thrombosis and embolism (14) Hypertension: CODE(S): I10 - Essential (primary) hypertension QUALIFIERS: Hypertension type: primary hypertension Qualified Code(s): I10 - Essential (primary) hypertension (15) Debility: CODE(S): R53.81 - Other malaise (16) Lower extremity edema: CODE(S): R60.0 - Localized edema (17) Status post lumbar surgery: CODE(S): Z98.890 - Other specified postprocedural states (18) Spondylosis: CODE(S): M47.9 - Spondylosis, unspecified (19) GRETCHEN treated with BiPAP: CODE(S): G47.33 - Obstructive sleep apnea (adult) (pediatric) (20) Former tobacco use: CODE(S): Z87.891 - Personal history of nicotine dependence (21) VTE (venous thromboembolism): CODE(S): I82.90 - Acute embolism and thrombosis of unspecified vein (22) Dyslipidemia: CODE(S): E78.5 - Hyperlipidemia, unspecified (23) Hx of total knee replacement: CODE(S): Z96.659 - Presence of unspecified artificial knee joint (24) History of vascular surgery: CODE(S): Z98.890 - Other specified postprocedural states (25) Hx of laminectomy: CODE(S): Z98.890 - Other specified postprocedural states (26) History of pyloromyotomy: CODE(S): Z98.890 - Other specified postprocedural states (27) Onychomycosis: CODE(S): B35.1 - Tinea unguium (28) Stage 3b chronic kidney disease (CKD): CODE(S): N18.32 - Chronic kidney disease, stage 3b (29) Diabetic foot ulcer associated with diabetes mellitus due to underlying condition: CODE(S): E08.621 - Diabetes mellitus due to underlying condition with foot ulcer; L97.509 - Non-pressure chronic ulcer of other part of unspecified foot with unspecified severity (30) Charcot arthropathy: CODE(S): M14.60 - Charcot's joint, unspecified site PLAN: Plan This is a 69-year-old male who presented with recurrent ulcerations of the right postero-lateral heel and right great toe. The patient is obese and known to be diabetic. He also suffers from multiple other pre-existing medical problems. The ulcerations appear to be pressure and diabetes related. The patient's laboratory results from January 06, 2025, have been reviewed. The importance of offloading measures has been discussed with the patient. He is to continue wearing his offloading footwear, previously fitted by his Rocket Assembly Operator, Dr. Saurabh Dasilva. However, the fit of these shoes may need to be reevaluated. Whether the right postero-lateral heel ulceration is due to poorly fitted footwear, or pressure from the bed surface, is not clear. The patient claims to sleep on his back, and the site of the ulcer on the posterior heel may be due to pressure against the bed surface. Therefore, the patient has been advised to obtain a Podus boot for offloading purposes. He has obtained the Podus boot and has been implementing its use. It appears that he may not be totally compliant with the use of the Podus boot. With respect to this ulceration, we are to continue the use of collagen hydrogel applied topically on a daily basis. This is to be covered by Adaptic and gauze. The patient has been instructed in the appropriate means of application. The dry gangrene on the tip of the right great toe has now sloughed, and the ulceration is seen to be healed, with a small amount of subepithelial hemorrhagic staining. It is to be left undisturbed, and will be monitored on a serial basis. The patient has been advised to optimize his nutritional intake, as well as his diabetic control. We are to continue the use of a single Tubigrip to the right lower extremity, which will be donned on a daily basis. The patient does have a history of swelling in his lower extremities. He has been advised to continue using his mechanical pneumatic compression pumps several times daily. He has also been advised to elevate his lower extremities as much as possible. Prolonged idle sitting has been discouraged. Ambulation has been encouraged. Weight loss has also been encouraged. The patient is to return in 1 week for reevaluation. Total time: 25 minutes
[2025-02-24 14:06] VITALS: BP 144/86; PULSE 84; RESP 18; TEMP 36.8
--- NOTE | 2025-02-25 13:46 | WC ---
PHOTO 02/24/25 RIGHT HEEL
--- NOTE | 2025-02-28 17:14 | PCM.WC.HP ---
History of Present Illness Date of Service: 02/24/25 Chief Complaint: Right heel ulcer and right hallux ulcer History of Wound: This is a 69 year-old male who presented [facility] for evaluation of a right heel ulcer. It started as a a pressure ulcer in February 2022 when he he was in TCU and it healed. It then became a blister right before his Left TKR surgery. He had his left knee replaced 07/14/22 at [facility]. 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 He also has a history of diabetes type II with peripheral polyneuropathy, HTN, lymphedema, hypercholesterolemia and PE that he is on Xerelto. Wound culture obtained on 08/30/22 which are positive for VRE, Kocuria kristinae and Corynebacterium striatum. He will completed the Linezolid. Wound culture obtained 06/20/23 which was positive for Staphylococcus pseudintermediu, Pseudomonas aeruginosa, Corynebacterium minutissiumum, and Anaerobic cocci. He was started on Levaquin and Flagyl. Foot xray 09/27/22 - Osteopenia with diffuse osteoarthritic changes. Diffuse soft tissue swelling with ossification of the distal Achilles tendon. No acute abnormality or evidence of erosive changes. Did undergo updated radiograph of the right foot 11/08/2023 with no noted changes from previous x-ray. This is a recurring ulceration to both distal tuft of the right hallux and posterior lateral heel. He stated both sites had scabbed up and he was previously discharged. However, scabs have later broken down with re-ulceration. 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 Type 2 diabetes mellitus with foot ulcer Non-pressure chronic ulcer of other part of right foot with fat layer exposed Acute painful diabetic polyneuropathy Chronic ulcer of right heel with fat layer exposed Benign prostatic hyperplasia Diabetic polyneuropathy Hypertension History of pulmonary embolism Lymphedema Spondylosis Nephrolithiasis Diabetic ulcer of foot associated with diabetes mellitus due to underlying condition, with fat layer exposed Charcot arthropathy Diabetic foot ulcer Diabetic foot ulcer associated with diabetes mellitus due to underlying condition Stage 3b chronic kidney disease (CKD) Onychomycosis History of deep vein thrombosis (DVT) of lower extremity Diabetic ulcer of toe VTE (venous thromboembolism) Dyslipidemia Diabetes mellitus type 2 with complications, uncontrolled Morbid obesity with BMI of 45.0-49.9, adult GRETHCEN treated with BiPAP Morbid obesity Former tobacco use BPH (benign prostatic hyperplasia) HTN (hypertension) Diabetes mellitus Home Medications ?Medication ?Instructions ?Recorded ?Last Taken ?Type atorvastatin 20 mg tablet 20 mg PO QHS cholesterol 08/27/15 02/21/22 History furosemide 40 mg tablet 80 mg PO DAILY diuretic 08/27/15 02/22/22 History rivaroxaban 20 mg tablet (Xarelto) 20 mg PO DINNER blood thinner 03/23/16 02/21/22 History doxazosin 4 mg tablet 4 mg PO QHS blood pressure 04/03/20 02/21/22 History insulin lispro 100 unit/mL 20 unit subcut BREAKFAST diabetes 02/23/22 02/22/22 History subcutaneous pen insulin lispro 100 unit/mL 20 unit subcut LUNCH diabetes 02/23/22 02/22/22 History subcutaneous pen gabapentin 600 mg tablet 600 mg PO TIDCM Nerve Pain 02/24/22 Unknown History insulin glargine-yfgn 100 unit/mL 50 unit (0.5 mL) subcut QHS dm #0 04/10/22 Unknown Rx (3 mL) subcutaneous pen mL insulin lispro 100 unit/mL 20 unit (0.2 mL) subcut DINNER dm 04/10/22 Unknown Rx subcutaneous pen (Humalog KwikPen #0 mL (U-100) Insulin) aspirin 81 mg capsule 81 mg PO DAILY heart health 08/16/22 Unknown History calcium carbonate (Tums) 200 mg PO BID PRN Heartburn 08/16/22 Unknown History dulaglutide 3 mg/0.5 mL 3 mg subcut QWEEK dm 08/16/22 Unknown History subcutaneous pen injector (Trulicity) hydrocodone-acetaminophen 5-325mg 1 tab PO Q8H PRN Pain 08/16/22 Unknown History 5mg-325mg zinc 50 mg capsule 50 mg PO DAILY supplement 08/16/22 Unknown History losartan 100 mg tablet 100 mg PO DAILY bp 12/10/24 Unknown History metoprolol tartrate 75 mg tablet 75 mg PO BID bp 01/08/25 Unknown History tizanidine 4 mg tablet 4 mg PO TID PRN PRN low back pain 01/08/25 Unknown History cefdinir 300 mg capsule 300 mg PO BID 4 days #8 caps 01/15/25 Unknown Rx Allergy/AdvReac Type Severity Reaction Status Date / Time Penicillins Allergy Unknown Hives Verified 01/08/25 14:25 erythromycin base AdvReac Nausea Verified 01/08/25 14:25 (Erythromycin Base) Family History Mother Diabetes Heart disease Coagulopathy Father Heart disease CVA (cerebral vascular accident) Parkinsons disease Surgical History History of total knee arthroplasty Status post lumbar surgery History of pyloromyotomy History of total knee arthroplasty Hx of total knee replacement History of vascular surgery Status post creation of pericardial window Hx of laminectomy Social History household members: spouse Smoking Status: Former smoker how long ago did patient quit smoking: Quit 1994, smoked 1 ppd since age 15. alcohol intake: never substance use type: does not use Physical Exam Const alert, oriented x3, no apparent distress, no limitations and well nourished Constitutional Narrative: The patient's BMI is 48.8. General Appearance: cooperative, comfortable and well developed Orientation / Consciousness: awake, oriented to person, oriented to place and oriented to time Exam Limitations: no limitations HEENT normocephalic and head/scalp atraumatic Head and Scalp: normal to inspection, normocephalic and atraumatic Face and Sinus: normal facial exam Nose: external nose normal External Ear: external ears normal Eyes EOMs intact bilaterally General Eye: normal appearance of both eyes Resp normal respiratory effort, normal air movement, no retractions and no use of accessory muscles Effort and Inspection: able to speak in complete sentences GI GI Narrative: The abdomen is obese. Extremity no calf tenderness General Extremity: Negative for clubbing or cyanosis Skin Wound Narrative: The ulceration on the patient's right posterolateral heel persists. It appears to be a Gomez grade 1 ulceration. It extends through all layers of the dermis and into the subcutaneous tissues. There is no significant erythema or cellulitis. There is no obvious infection. Ulcer margins are not well beveled. A small amount of callus is noted at the periphery of the ulcer. There is a moderate amount of bioburden and nonviable tissue. There also appears to be some accumulated, desiccated hydrogel at the site as well. Dimensions are documented elsewhere. The ulceration appears to have diminished in size since last observed. The tip of the patient's right great toe appears to be healed, but with hemorrhagic staining beneath the epithelial layer. Onychomycosis is noted involving the toenails of the right foot. Moderate swelling is noted in the patient's right lower extremity. Neuro oriented x3, CN's II-XII intact bilaterally, moves all extremities and no focal motor deficits Sensorium / Orientation: awake, alert, oriented to person, oriented to place and oriented to time Speech: speech normal Psych Appearance: grossly normal and appropriate Attitude: calm Activity / Motor Behavior: appropriate eye contact Speech: normal speech Mood & Affect: euthymic mood Thought Process: normal thought process Thought Content: normal thought content Attention / Concentration: attention grossly intact Debridement Note Debridement Note Wound debrided: Right postero-lateral heel ulceration Laterality: Right Wound Grade/Stage: Gomez Grade 1 Type of Debridement: Excisional debridement Anesthesia Used: 5% Lidocaine Gel Depth: Down to and including healthy tissue and in the subcutaneous layer Percentage of wound debrided: 100 Instrument Used: 5mm curette, Forceps and - (Scissors) Tissue Removed: Bioburden; callus; nonviable tissue and desiccated collagen hydrogel Severity: Fat Layer Exposed Amount of bleeding with debridement: Mild Bleeding Controlled with: Compression and gauze Patient tolerated procedure: Patient tolerated procedure well Post-Debridement Measurements and Additional Note: Post-Debridement Measurements/Treatment - Nurse 1 - General Ulcer Assessment Start: 02/10/25 14:51 Freq: Status: Active Protocol: NELL Activity Type Activity Date Activity User E-sign Co-sign Detail Recorded Client Recorded Date Recorded By Document 02/10/25 14:51 JF [id number] 02/10/25 14:58 JF Document 02/17/25 14:24 KW [id number] 02/17/25 14:34 KW Document 02/24/25 14:06 BM [id number] 02/24/25 14:20 BM 02/10/25 02/17/25 02/24/25 14:51 14:24 14:06 - Today's Visit Information Type of service Follow-up Visit Follow-up Visit Follow-up Visit (Physician/ROCK LATHER (Physician/ROCK LATHER (Physician/ROCK LATHER ) ) ) Arrival Mode Ambulatory, Ambulatory, Ambulatory, Walker Walker Walker Transfer Assistance None Patient Identification Verified (Name & No Yes Yes ) Patient Requires Transmission-Based No No Precautions Vital Signs Temperature (97.8 F-99.1 F) 98.1 F 97.1 F L 98.2 F Temperature Source Temporal Temporal Temporal Pulse Rate (60-100) 84 96 84 Pulse Location Monitor Monitor Monitor Respiratory Rate (12-18) 18 18 18 Respiratory rate source Observation Observation Observation Oxygen Delivery Method Room Air Room Air Blood Pressure (90/60-120/80) 181/99 H 166/94 H 144/86 H Blood Pressure Mean 126 118 105 Source Monitor Monitor Monitor Position Semi-Fowlers Sitting Sitting Blood Pressure Location Left Forearm Left Forearm History Since Last Visit- (Skip if this is Patient's initial visit) Have you changed medications since your Yes No No last visit? Any new allergies or adverse reactions No No No Had a fall/change in ADL's that may No No No increase risk of falls Signs or symptoms of abuse and/or No No No neglect since last visit Have you been in the hospital since your No No No last visit? Has dressing in place as prescribed Yes Yes Yes Has compression in place as prescribed Yes Yes Yes Has offloadiing in place as prescribed Yes Yes N/A Experienced any changes in pain level or No No No management Left Footwear Regular Shoe Regular Shoe Custom Shoe Right Footwear Surgical Shoe Surgical Shoe Surgical Shoe with pressure with pressure with pressure relief insole relief insole relief insole Pain Scale: 0-10 Numeric Is Patient Pain Free? Yes Yes Yes WC - Nurse 1 - General Ulcer Measurement Start: 02/10/25 14:51 Freq: Status: Active Protocol: Activity Type Activity Date Activity User E-sign Co-sign Detail Recorded Client Recorded Date Recorded By Document 02/10/25 14:51 JF [id number] 02/10/25 14:58 JF Document 02/17/25 14:24 KW [id number] 02/17/25 14:34 KW Document 02/24/25 14:06 BM [id number] 02/24/25 14:20 BMF 02/10/25 02/17/25 02/24/25 14:51 14:24 14:06 Wound Center Nurse 1 #7- R GR TOE -Combined with other wound No -Current Size (cm) - Length 0.1 -Current Size (cm) - Width 0.1 -Current Size (cm) - Depth 0.1 -Total Square Cm 0.01 -Photo Taken Yes -Epithelialization Large 67-100% -Tunneling No -Undermining/Tunneling No -Circular Undermining No -Exudate Amt None Present #6- R HEEL -Combined with other wound No No -Current Size (cm) - Length 0.1 2.3 0.1 -Current Size (cm) - Width 0.1 1 0.1 -Current Size (cm) - Depth 0.1 0.1 0.1 -Total Square Cm 0.01 2.3 0.01 -Date of Last Picture (Recall this 02/17/25 02/24/25 field) -Photo Taken Yes Yes -Epithelialization Large 67-100% Large 67-100% -Tunneling No -Undermining/Tunneling No -Circular Undermining No -Exudate Amt Medium None Present -Exudate Type Serosanguineous -Wound Margin Indistinct, Non -Visible -Granulation Amt Small (1-33%) -Granulation Quality [place] -Necrosis Amt Large (67-100%) -Necrotic Tissue Type Adherent Slough -Texture (Lianna-wound Skin Appearance) Assessed,Callus Assessed -Moisture (Lianna-wound Skin Appearance) Assessed,Dry/ Assessed,Dry/ Scaly Scaly -Color (Lianna-wound Skin Appearance) Assessed Assessed -Temperature (Lianna-wound Skin No Abnormality No Abnormality Appearance) (Pt Warm) (Pt Warm) -Tenderness on Palpation (Lianna-wound No No Skin Appearance) -Ulcer Cleansing Soap and Water Soap and Water -Foul Odor after Cleansing No No -Anesthetic Used 5% Lidocaine 5% Lidocaine Gel Gel Lower Limb Edema Present Yes Right Calf (cm) 48 Right Ankle (cm) 31.0 WC - Nurse 2 - General Ulcer CM Notes Start: 02/10/25 14:51 Freq: Status: Active Protocol: Activity Type Activity Date Activity User E-sign Co-sign Detail Recorded Client Recorded Date Recorded By Document 02/10/25 15:15 DS [id number] 02/10/25 15:16 DS Edit Result 02/10/25 15:15 DS (1) [id number] 02/10/25 15:18 DS Document 02/17/25 15:00 DS [id number] 02/17/25 15:04 DS Document 02/24/25 14:36 DS [id number] 02/24/25 14:42 DS (1) #6- R HEEL - Post Debridement (cm) - Length => 2.3 - Post Debridement (cm) - Width => 1.0 - Post Debridement (cm) - Depth => 0.2 - Total Square (Post) (cm) => 2.30 - Area of Debridement (cm) - Length => 2.3 - Area of Debridement (cm) - Width => 1.0 - Total Square (Area) (cm) => 2.30 02/10/25 02/17/25 02/24/25 15:15 15:00 14:36 Wound Center Nurse 2 #7- R GR TOE -Time 15:15 -Correct Patient Yes -Correct Side, Site, Position Yes -Procedure Performed No -Wound/Ulcer Outcome Healed- Epithelialized #6- R HEEL -Time 15:15 15:00 14:36 -Correct Patient Yes Yes Yes -Correct Side, Site, Position Yes Yes Yes -Correct Procedure Yes Yes Yes -Procedure Performed Yes Yes Yes -Type of Procedure Debridement Debridement Debridement -Clinical Debridement Subcutaneous Subcutaneous Subcutaneous -Tissue Removed Subcutaneous Subcutaneous Subcutaneous -Post Debridement (cm) - Length 2.3 0.4 0.1 -Post Debridement (cm) - Width 1.0 0.3 0.1 -Post Debridement (cm) - Depth 0.2 0.1 0.1 -Total Square (Post) (cm) 2.30 0.12 0.01 -Area of Debridement (cm) - Length 2.3 0.4 0.1 -Area of Debridement (cm) - Width 1.0 0.3 0.1 -Total Square (Area) (cm) 2.30 0.12 0.01 -Tunneling No No No -Undermining/Tunneling No No No -Circular Undermining No No No -Wound/Ulcer Outcome Not Healed Not Healed Not Healed -Ulcer Cleansing gauze gauze -Foul Odor after Cleansing No No No -Bioengineered Tissue No No No -Bleeding Controlled with Pressure Pressure Pressure -Treatment Response Procedure Procedure Procedure Tolerated Well Tolerated Well Tolerated Well -Debridement - Subq, 1st 20sq cm Yes Yes Yes Pain Scale: 0-10 Numeric Is Patient Pain Free? Yes Yes Yes WC - Nurse 3 - General Ulcer D/C NN Start: 02/10/25 14:51 Freq: Status: Active Protocol: Activity Type Activity Date Activity User E-sign Co-sign Detail Recorded Client Recorded Date Recorded By Document 02/10/25 15:21 [facility] [id number] 02/10/25 15:22 [facility] Document 02/17/25 15:10 KW [id number] 02/17/25 15:11 KW Document 02/24/25 14:54 [facility] [id number] 02/24/25 14:55 [facility] 02/10/25 02/17/25 02/24/25 15:21 15:10 14:54 [facility] Center Nurse 3 #6- R HEEL -Ulcer Cleansing Rinsed/ Irrigated with Saline -Foul Odor after Cleansing No -Primary Dressing Applied NonAdherent NonAdherent NonAdherent Contact Layer Contact Layer Contact Layer -Other Dressing hydrogel hydrogel hydrogel -Primary Dressing Covered/Secured with Dry Gauze & Dry Gauze & Dry Gauze & Roll Gauze, Roll Gauze, Roll Gauze, Secured with Secured with Secured with Tape Tape Tape -Other Covering drsg per jf rn RLE -Tubular Bandage Single Layer Single Layer Double Layer -Size of Tubigrip Used Size F Size F Size F -Size F ($) 1 1 2 Treatment Response Procedure Procedure Tolerated Well Tolerated Well Pain Scale: 0-10 Numeric Is Patient Pain Free? 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: CODE(S): L97.412 - Non-pressure chronic ulcer of right heel and midfoot with fat layer exposed (2) Chronic ulcer of right heel with fat layer exposed: CODE(S): L97.412 - Non-pressure chronic ulcer of right heel and midfoot with fat layer exposed (3) Diabetic ulcer of foot associated with diabetes mellitus due to underlying condition, with fat layer exposed: CODE(S): E08.621 - Diabetes mellitus due to underlying condition with foot ulcer; L97.502 - Non-pressure chronic ulcer of other part of unspecified foot with fat layer exposed QUALIFIERS: Diabetic foot ulcer location: heel Laterality: right Qualified Code(s): E08.621 - Diabetes mellitus due to underlying condition with foot ulcer; L97.412 - Non-pressure chronic ulcer of right heel and midfoot with fat layer exposed (4) Diabetic ulcer of toe: CODE(S): E11.621 - Type 2 diabetes mellitus with foot ulcer; L97.509 - Non-pressure chronic ulcer of other part of unspecified foot with unspecified severity QUALIFIERS: Diabetes mellitus type: type 2 Laterality: right Non-pressure ulcer stage: with other severity Qualified Code(s): E11.621 - Type 2 diabetes mellitus with foot ulcer; L97.518 - Non-pressure chronic ulcer of other part of right foot with other specified severity (5) Type 2 diabetes mellitus with foot ulcer: CODE(S): E11.621 - Type 2 diabetes mellitus with foot ulcer; L97.509 - Non-pressure chronic ulcer of other part of unspecified foot with unspecified severity QUALIFIERS: Diabetes mellitus senior care insulin use: with termination clerk use Qualified Code(s): E11.621 - Type 2 diabetes mellitus with foot ulcer; L97.509 - Non-pressure chronic ulcer of other part of unspecified foot with unspecified severity; Z79.4 - predatory animal exterminator (current) use of insulin (6) Diabetic foot ulcer: CODE(S): E11.621 - Type 2 diabetes mellitus with foot ulcer; L97.509 - Non-pressure chronic ulcer of other part of unspecified foot with unspecified severity QUALIFIERS: Diabetic foot ulcer location: heel Diabetes mellitus type: type 2 Laterality: right Non-pressure ulcer stage: with fat layer exposed Qualified Code(s): E11.621 - Type 2 diabetes mellitus with foot ulcer; L97.412 - Non-pressure chronic ulcer of right heel and midfoot with fat layer exposed (7) History of total knee arthroplasty: CODE(S): Z96.659 - Presence of unspecified artificial knee joint (8) Morbid obesity with BMI of 45.0-49.9, adult: CODE(S): E66.01 - Morbid (severe) obesity due to excess calories; Z68.42 - Body mass index [BMI] 45.0-49.9, adult (9) Diabetic polyneuropathy: CODE(S): E11.42 - Type 2 diabetes mellitus with diabetic polyneuropathy (10) Benign prostatic hyperplasia: CODE(S): N40.0 - Benign prostatic hyperplasia without lower urinary tract symptoms (11) Diabetes mellitus type 2 with complications, uncontrolled: (12) History of pulmonary embolism: CODE(S): Z86.711 - Personal history of pulmonary embolism (13) History of deep vein thrombosis (DVT) of lower extremity: CODE(S): Z86.718 - Personal history of other venous thrombosis and embolism (14) Hypertension: CODE(S): I10 - Essential (primary) hypertension QUALIFIERS: Hypertension type: primary hypertension Qualified Code(s): I10 - Essential (primary) hypertension (15) Debility: CODE(S): R53.81 - Other malaise (16) Lower extremity edema: CODE(S): R60.0 - Localized edema (17) Status post lumbar surgery: CODE(S): Z98.890 - Other specified postprocedural states (18) Spondylosis: CODE(S): M47.9 - Spondylosis, unspecified (19) GRETCHEN treated with BiPAP: CODE(S): G47.33 - Obstructive sleep apnea (adult) (pediatric) (20) Former tobacco use: CODE(S): Z87.891 - Personal history of nicotine dependence (21) VTE (venous thromboembolism): CODE(S): I82.90 - Acute embolism and thrombosis of unspecified vein (22) Dyslipidemia: CODE(S): E78.5 - Hyperlipidemia, unspecified (23) Hx of total knee replacement: CODE(S): Z96.659 - Presence of unspecified artificial knee joint (24) History of vascular surgery: CODE(S): Z98.890 - Other specified postprocedural states (25) Hx of laminectomy: CODE(S): Z98.890 - Other specified postprocedural states (26) History of pyloromyotomy: CODE(S): Z98.890 - Other specified postprocedural states (27) Onychomycosis: CODE(S): B35.1 - Tinea unguium (28) Stage 3b chronic kidney disease (CKD): CODE(S): N18.32 - Chronic kidney disease, stage 3b (29) Diabetic foot ulcer associated with diabetes mellitus due to underlying condition: CODE(S): E08.621 - Diabetes mellitus due to underlying condition with foot ulcer; L97.509 - Non-pressure chronic ulcer of other part of unspecified foot with unspecified severity (30) Charcot arthropathy: CODE(S): M14.60 - Charcot's joint, unspecified site PLAN: Plan This is a 69-year-old male who presented with recurrent ulcerations of the right postero-lateral heel and right great toe. The patient is obese and known to be diabetic. He also suffers from multiple other pre-existing medical problems. The ulcerations appear to be pressure and diabetes related. The importance of offloading measures has been discussed with the patient. He is to continue wearing his offloading footwear, previously fitted by his Intern Product Marketing Manager, Dr. Saurabh Dasilva. However, the fit of these shoes may need to be reevaluated. Whether the right postero-lateral heel ulceration is due to poorly fitted footwear, or pressure from the bed surface, is not clear. The patient claims to sleep on his back, and the site of the ulcer on the posterior heel may be due to pressure against the bed surface. Therefore, the patient has been advised to obtain a Podus boot for offloading purposes. He has obtained the Podus boot and has been implementing its use. It appears that he may not be totally compliant with the use of the Podus boot. With respect to this ulceration, we are to continue the use of collagen hydrogel applied topically on a daily basis. This is to be covered by Adaptic and gauze. The patient has been instructed in the appropriate means of application. The dry gangrene on the tip of the right great toe has now sloughed, and the ulceration is seen to be healed, with a small amount of subepithelial hemorrhagic staining. It is to be left undisturbed, and will be monitored on a serial basis. The patient has been advised to optimize his nutritional intake, as well as his diabetic control. We are to use double Tubigrips to the right lower extremity, which will be donned on a daily basis. The patient does have swelling in his lower extremities. He has been advised to continue using his mechanical pneumatic compression pumps several times daily. He has also been advised to elevate his lower extremities as much as possible. Prolonged idle sitting has been discouraged. Ambulation has been encouraged. Weight loss has also been encouraged. The patient is to return in 1 week for reevaluation. Total time: 26 minutes
[2025-03-03 13:39] VITALS: BP 160/81; PULSE 89; RESP 18; TEMP 35.9
--- NOTE | 2025-03-04 10:20 | WC ---
PHOTO - RIGHT GREAT TOE 03-03-25
--- NOTE | 2025-03-04 10:20 | WC ---
PHOTO - RIGHT HEEL 03-03-25
--- NOTE | 2025-03-06 12:09 | PCM.WC.HP ---
History of Present Illness Date of Service: 03/03/25 Chief Complaint: Right heel ulcer and right hallux ulcer History of Wound: This is a 69 year-old male who [facility] for evaluation of a right heel ulcer. It started as a a pressure ulcer in February 2022 when he he was in TCU and it healed. It then became a blister right before his Left TKR surgery. He had his left knee replaced 07/14/22 at [facility]. 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 He also has a history of diabetes type II with peripheral polyneuropathy, HTN, lymphedema, hypercholesterolemia and PE that he is on Xerelto. Wound culture obtained on 08/30/22 which are positive for VRE, Kocuria kristinae and Corynebacterium striatum. He will completed the Linezolid. Wound culture obtained 06/20/23 which was positive for Staphylococcus pseudintermediu, Pseudomonas aeruginosa, Corynebacterium minutissiumum, and Anaerobic cocci. He was started on Levaquin and Flagyl. Foot xray 09/27/22 - Osteopenia with diffuse osteoarthritic changes. Diffuse soft tissue swelling with ossification of the distal Achilles tendon. No acute abnormality or evidence of erosive changes. Did undergo updated radiograph of the right foot 11/08/2023 with no noted changes from previous x-ray. This is a recurring ulceration to both distal tuft of the right hallux and posterior lateral heel. He stated both sites had scabbed up and he was previously discharged. However, scabs have later broken down with re-ulceration. 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 Type 2 diabetes mellitus with foot ulcer Non-pressure chronic ulcer of other part of right foot with fat layer exposed Acute painful diabetic polyneuropathy Chronic ulcer of right heel with fat layer exposed Benign prostatic hyperplasia Diabetic polyneuropathy Hypertension History of pulmonary embolism Lymphedema Spondylosis Nephrolithiasis Diabetic ulcer of foot associated with diabetes mellitus due to underlying condition, with fat layer exposed Charcot arthropathy Diabetic foot ulcer Diabetic foot ulcer associated with diabetes mellitus due to underlying condition Stage 3b chronic kidney disease (CKD) Onychomycosis History of deep vein thrombosis (DVT) of lower extremity Diabetic ulcer of toe VTE (venous thromboembolism) Dyslipidemia Diabetes mellitus type 2 with complications, uncontrolled Morbid obesity with BMI of 45.0-49.9, adult GRETCHEN treated with BiPAP Morbid obesity Former tobacco use BPH (benign prostatic hyperplasia) HTN (hypertension) Diabetes mellitus Home Medications ?Medication ?Instructions ?Recorded ?Last Taken ?Type atorvastatin 20 mg tablet 20 mg PO QHS cholesterol 08/27/15 02/21/22 History furosemide 40 mg tablet 80 mg PO DAILY diuretic 08/27/15 02/22/22 History rivaroxaban 20 mg tablet (Xarelto) 20 mg PO DINNER blood thinner 03/23/16 02/21/22 History doxazosin 4 mg tablet 4 mg PO QHS blood pressure 04/03/20 02/21/22 History insulin lispro 100 unit/mL 20 unit subcut BREAKFAST diabetes 02/23/22 02/22/22 History subcutaneous pen insulin lispro 100 unit/mL 20 unit subcut LUNCH diabetes 02/23/22 02/22/22 History subcutaneous pen gabapentin 600 mg tablet 600 mg PO TIDCM Nerve Pain 02/24/22 Unknown History insulin glargine-yfgn 100 unit/mL 50 unit (0.5 mL) subcut QHS dm #0 04/10/22 Unknown Rx (3 mL) subcutaneous pen mL insulin lispro 100 unit/mL 20 unit (0.2 mL) subcut DINNER dm 04/10/22 Unknown Rx subcutaneous pen (Humalog KwikPen #0 mL (U-100) Insulin) aspirin 81 mg capsule 81 mg PO DAILY heart health 08/16/22 Unknown History calcium carbonate (Tums) 200 mg PO BID PRN Heartburn 08/16/22 Unknown History dulaglutide 3 mg/0.5 mL 3 mg subcut QWEEK dm 08/16/22 Unknown History subcutaneous pen injector (Trulicity) hydrocodone-acetaminophen 5-325mg 1 tab PO Q8H PRN Pain 08/16/22 Unknown History 5mg-325mg zinc 50 mg capsule 50 mg PO DAILY supplement 08/16/22 Unknown History losartan 100 mg tablet 100 mg PO DAILY bp 12/10/24 Unknown History metoprolol tartrate 75 mg tablet 75 mg PO BID bp 01/08/25 Unknown History tizanidine 4 mg tablet 4 mg PO TID PRN PRN low back pain 01/08/25 Unknown History cefdinir 300 mg capsule 300 mg PO BID 4 days #8 caps 01/15/25 Unknown Rx Allergy/AdvReac Type Severity Reaction Status Date / Time Penicillins Allergy Unknown Hives Verified 01/08/25 14:25 erythromycin base AdvReac Nausea Verified 01/08/25 14:25 (Erythromycin Base) Family History Mother Diabetes Heart disease Coagulopathy Father Heart disease CVA (cerebral vascular accident) Parkinsons disease Surgical History History of total knee arthroplasty Status post lumbar surgery History of pyloromyotomy History of total knee arthroplasty Hx of total knee replacement History of vascular surgery Status post creation of pericardial window Hx of laminectomy Social History household members: spouse Smoking Status: Former smoker how long ago did patient quit smoking: Quit 1994, smoked 1 ppd since age 15. alcohol intake: never substance use type: does not use Physical Exam Const alert, oriented x3, no apparent distress, no limitations and well nourished Constitutional Narrative: The patient's BMI is 48.8. General Appearance: cooperative, comfortable and well developed Orientation / Consciousness: awake, oriented to person, oriented to place and oriented to time Exam Limitations: no limitations HEENT normocephalic and head/scalp atraumatic Head and Scalp: normal to inspection, normocephalic and atraumatic Face and Sinus: normal facial exam Nose: external nose normal External Ear: external ears normal Eyes EOMs intact bilaterally General Eye: normal appearance of both eyes Resp normal respiratory effort, normal air movement, no retractions and no use of accessory muscles Effort and Inspection: able to speak in complete sentences GI GI Narrative: The abdomen is obese. Extremity no calf tenderness General Extremity: Negative for clubbing or cyanosis Skin Wound Narrative: The ulceration on the patient's right posterolateral heel appears to be healed an epithelialized. There is no erythema or cellulitis. The tip of the patient's right great toe demonstrates a dark, purplish subcutaneous lesion, though the dermal layers appear to be intact. There is uncertainty as to whether this may be a blood blister or necrosis. The dimensions are documented elsewhere. Onychomycosis is noted involving the toenails. Mild swelling is noted in the patient's right lower extremity. Neuro oriented x3, CN's II-XII intact bilaterally, moves all extremities and no focal motor deficits Sensorium / Orientation: awake, alert, oriented to person, oriented to place and oriented to time Speech: speech normal Psych Appearance: grossly normal and appropriate Attitude: calm Activity / Motor Behavior: appropriate eye contact Speech: normal speech Mood & Affect: euthymic mood Thought Process: normal thought process Thought Content: normal thought content Attention / Concentration: attention grossly intact Debridement Note Debridement Note No debridement was completed: No debridement was completed today Post-Debridement Measurements and Additional Note: Post-Debridement Measurements/Treatment - Nurse 1 - General Ulcer Assessment Start: 02/10/25 14:51 Freq: Status: Active Protocol: NELL Activity Type Activity Date Activity User E-sign Co-sign Detail Recorded Client Recorded Date Recorded By Document 02/10/25 14:51 [id number] 02/10/25 14:58 Document 02/17/25 14:24 KW [id number] 02/17/25 14:34 Document 02/24/25 14:06 [facility] [id number] 02/24/25 14:20 [facility] Document 03/03/25 13:39 KW [id number] 03/03/25 13:48 KW 02/10/25 02/17/25 02/24/25 14:51 14:24 14:06 - Today's Visit Information Type of service Follow-up Visit Follow-up Visit Follow-up Visit (Physician/AUTOMOBILE SERVICE STATION MANAGER (Physician/AUTOMOBILE SERVICE STATION MANAGER (Physician/AUTOMOBILE SERVICE STATION MANAGER ) ) ) Arrival Mode Ambulatory, Ambulatory, Ambulatory, Walker Walker Walker Transfer Assistance None Patient Identification Verified (Name & No Yes Yes ) Patient Requires Transmission-Based No No Precautions Vital Signs Temperature (97.8 F-99.1 F) 98.1 F 97.1 F L 98.2 F Temperature Source Temporal Temporal Temporal Pulse Rate (60-100) 84 96 84 Pulse Location Monitor Monitor Monitor Respiratory Rate (12-18) 18 18 18 Respiratory rate source Observation Observation Observation Oxygen Delivery Method Room Air Room Air Blood Pressure (90/60-120/80) 181/99 H 166/94 H 144/86 H Blood Pressure Mean 126 118 105 Source Monitor Monitor Monitor Position Semi-Fowlers Sitting Sitting Blood Pressure Location Left Forearm Left Forearm History Since Last Visit- (Skip if this is Patient's initial visit) Have you changed medications since your Yes No No last visit? Any new allergies or adverse reactions No No No Had a fall/change in ADL's that may No No No increase risk of falls Signs or symptoms of abuse and/or No No No neglect since last visit Have you been in the hospital since your No No No last visit? Has dressing in place as prescribed Yes Yes Yes Has compression in place as prescribed Yes Yes Yes Has offloadiing in place as prescribed Yes Yes N/A Experienced any changes in pain level or No No No management Left Footwear Regular Shoe Regular Shoe Custom Shoe Right Footwear Surgical Shoe Surgical Shoe Surgical Shoe with pressure with pressure with pressure relief insole relief insole relief insole Pain Scale: 0-10 Numeric Is Patient Pain Free? Yes Yes Yes 03/03/25 13:39 WC - Today's Visit Information Type of service Follow-up Visit (Physician/AUTOMOBILE SERVICE STATION MANAGER ) Arrival Mode Ambulatory, Walker Transfer Assistance Patient Identification Verified (Name & Yes ) Patient Requires Transmission-Based Precautions Vital Signs Temperature (97.8 F-99.1 F) 96.7 F L Temperature Source Temporal Pulse Rate (60-100) 89 Pulse Location Monitor Respiratory Rate (12-18) 18 Respiratory rate source Observation Oxygen Delivery Method Room Air Blood Pressure (90/60-120/80) 160/81 H Blood Pressure Mean 107 Source Monitor Position Sitting Blood Pressure Location Left Forearm History Since Last Visit- (Skip if this is Patient's initial visit) Have you changed medications since your No last visit? Any new allergies or adverse reactions No Had a fall/change in ADL's that may No increase risk of falls Signs or symptoms of abuse and/or No neglect since last visit Have you been in the hospital since your No last visit? Has dressing in place as prescribed Yes Has compression in place as prescribed Yes Has offloadiing in place as prescribed Yes Experienced any changes in pain level or No management Left Footwear Regular Shoe Right Footwear Surgical Shoe with pressure relief insole Pain Scale: 0-10 Numeric Is Patient Pain Free? Yes - Nurse 1 - General Ulcer Measurement Start: 02/10/25 14:51 Freq: Status: Active Protocol: Activity Type Activity Date Activity User E-sign Co-sign Detail Recorded Client Recorded Date Recorded By Document 02/10/25 14:51 [id number] 02/10/25 14:58 Document 02/17/25 14:24 KW [id number] 02/17/25 14:34 Document 02/24/25 14:06 BM [id number] 02/24/25 14:20 [facility] Document 03/03/25 13:39 KW [id number] 03/03/25 13:48 KW 02/10/25 02/17/25 02/24/25 14:51 14:24 14:06 Wound Center Nurse 1 #7- R GR TOE -Combined with other wound No -Current Size (cm) - Length 0.1 -Current Size (cm) - Width 0.1 -Current Size (cm) - Depth 0.1 -Total Square Cm 0.01 -Photo Taken Yes -Epithelialization Large 67-100% -Tunneling No -Undermining/Tunneling No -Circular Undermining No -Exudate Amt None Present #6- R HEEL -Combined with other wound No No -Current Size (cm) - Length 0.1 2.3 0.1 -Current Size (cm) - Width 0.1 1 0.1 -Current Size (cm) - Depth 0.1 0.1 0.1 -Total Square Cm 0.01 2.3 0.01 -Date of Last Picture (Recall this 02/17/25 02/24/25 field) -Photo Taken Yes Yes -Epithelialization Large 67-100% Large 67-100% -Tunneling No -Undermining/Tunneling No -Circular Undermining No -Exudate Amt Medium None Present -Exudate Type Serosanguineous -Wound Margin Indistinct, Non -Visible -Granulation Amt Small (1-33%) -Granulation Quality [place] -Necrosis Amt Large (67-100%) -Necrotic Tissue Type Adherent Slough -Texture (Lianna-wound Skin Appearance) Assessed,Callus Assessed -Moisture (Lianna-wound Skin Appearance) Assessed,Dry/ Assessed,Dry/ Scaly Scaly -Color (Lianna-wound Skin Appearance) Assessed Assessed -Temperature (Lianna-wound Skin No Abnormality No Abnormality Appearance) (Pt Warm) (Pt Warm) -Tenderness on Palpation (Lianna-wound No No Skin Appearance) -Ulcer Cleansing Soap and Water Soap and Water -Foul Odor after Cleansing No No -Anesthetic Used 5% Lidocaine 5% Lidocaine Gel Gel Lower Limb Edema Present Yes Right Calf (cm) 48 Right Ankle (cm) 31.0 03/03/25 13:39 Wound Center Nurse 1 #7- R GR TOE -Combined with other wound -Current Size (cm) - Length -Current Size (cm) - Width -Current Size (cm) - Depth -Total Square Cm -Photo Taken -Epithelialization -Tunneling -Undermining/Tunneling -Circular Undermining -Exudate Amt #6- R HEEL -Combined with other wound -Current Size (cm) - Length 0.1 -Current Size (cm) - Width 0.1 -Current Size (cm) - Depth 0.1 -Total Square Cm 0.01 -Date of Last Picture (Recall this 03/03/25 field) -Photo Taken -Epithelialization -Tunneling -Undermining/Tunneling -Circular Undermining -Exudate Amt None Present -Exudate Type -Wound Margin -Granulation Amt -Granulation Quality -Necrosis Amt -Necrotic Tissue Type -Texture (Lianna-wound Skin Appearance) Assessed -Moisture (Lianna-wound Skin Appearance) Assessed -Color (Lianna-wound Skin Appearance) Assessed -Temperature (Lianna-wound Skin No Abnormality Appearance) (Pt Warm) -Tenderness on Palpation (Lianna-wound No Skin Appearance) -Ulcer Cleansing Rinsed/ Irrigated with Saline -Foul Odor after Cleansing No -Anesthetic Used 5% Lidocaine Gel Lower Limb Edema Present Right Calf (cm) Right Ankle (cm) WC - Nurse 2 - General Ulcer CM Notes Start: 02/10/25 14:51 Freq: Status: Active Protocol: Activity Type Activity Date Activity User E-sign Co-sign Detail Recorded Client Recorded Date Recorded By Document 02/10/25 15:15 DS [id number] 02/10/25 15:16 DS Edit Result 02/10/25 15:15 DS (1) [id number] 02/10/25 15:18 DS Document 02/17/25 15:00 DS [id number] 02/17/25 15:04 DS Document 02/24/25 14:36 DS [id number] 02/24/25 14:42 DS Document 03/03/25 14:48 DS [id number] 03/03/25 14:49 DS Edit Result 03/03/25 14:48 DS (2) [id number] 03/03/25 16:17 DS (1) #6- R HEEL - Post Debridement (cm) - Length => 2.3 - Post Debridement (cm) - Width => 1.0 - Post Debridement (cm) - Depth => 0.2 - Total Square (Post) (cm) => 2.30 - Area of Debridement (cm) - Length => 2.3 - Area of Debridement (cm) - Width => 1.0 - Total Square (Area) (cm) => 2.30 (2) #6- R HEEL - Tissue Removed Subcutaneous => 02/10/25 02/17/25 02/24/25 15:15 15:00 14:36 Wound Center Nurse 2 #7- R GR TOE -Time 15:15 -Correct Patient Yes -Correct Side, Site, Position Yes -Procedure Performed No -Wound/Ulcer Outcome Healed- Epithelialized #6- R HEEL -Time 15:15 15:00 14:36 -Correct Patient Yes Yes Yes -Correct Side, Site, Position Yes Yes Yes -Correct Procedure Yes Yes Yes -Procedure Performed Yes Yes Yes -Type of Procedure Debridement Debridement Debridement -Clinical Debridement Subcutaneous Subcutaneous Subcutaneous -Tissue Removed Subcutaneous Subcutaneous Subcutaneous -Post Debridement (cm) - Length 2.3 0.4 0.1 -Post Debridement (cm) - Width 1.0 0.3 0.1 -Post Debridement (cm) - Depth 0.2 0.1 0.1 -Total Square (Post) (cm) 2.30 0.12 0.01 -Area of Debridement (cm) - Length 2.3 0.4 0.1 -Area of Debridement (cm) - Width 1.0 0.3 0.1 -Total Square (Area) (cm) 2.30 0.12 0.01 -Tunneling No No No -Undermining/Tunneling No No No -Circular Undermining No No No -Wound/Ulcer Outcome Not Healed Not Healed Not Healed -Ulcer Cleansing gauze gauze -Foul Odor after Cleansing No No No -Bioengineered Tissue No No No -Bleeding Controlled with Pressure Pressure Pressure -Treatment Response Procedure Procedure Procedure Tolerated Well Tolerated Well Tolerated Well -Debridement - Subq, 1st 20sq cm Yes Yes Yes Pain Scale: 0-10 Numeric Is Patient Pain Free? Yes Yes Yes 03/03/25 14:48 Wound Center Nurse 2 #7- R GR TOE -Time -Correct Patient -Correct Side, Site, Position -Procedure Performed -Wound/Ulcer Outcome #6- R HEEL -Time 14:48 -Correct Patient Yes -Correct Side, Site, Position Yes -Correct Procedure -Procedure Performed No -Type of Procedure -Clinical Debridement -Tissue Removed -Post Debridement (cm) - Length 0.1 -Post Debridement (cm) - Width 0.1 -Post Debridement (cm) - Depth 0.1 -Total Square (Post) (cm) 0.01 -Area of Debridement (cm) - Length 0.1 -Area of Debridement (cm) - Width 0.1 -Total Square (Area) (cm) 0.01 -Tunneling No -Undermining/Tunneling No -Circular Undermining No -Wound/Ulcer Outcome Not Healed -Ulcer Cleansing -Foul Odor after Cleansing No -Bioengineered Tissue No -Bleeding Controlled with Pressure -Treatment Response Procedure Tolerated Well -Debridement - Subq, 1st 20sq cm Pain Scale: 0-10 Numeric Is Patient Pain Free? Yes WC - Nurse 3 - General Ulcer D/C NN Start: 02/10/25 14:51 Freq: Status: Active Protocol: Activity Type Activity Date Activity User E-sign Co-sign Detail Recorded Client Recorded Date Recorded By Document 02/10/25 15:21 BM [id number] 02/10/25 15:22 [facility] Document 02/17/25 15:10 KW [id number] 02/17/25 15:11 KW Document 02/24/25 14:54 BMF [id number] 02/24/25 14:55 [facility] Document 03/03/25 14:59 ML [id number] 03/03/25 15:00 ML 02/10/25 02/17/25 02/24/25 15:21 15:10 14:54 Wound Care Center Nurse 3 #6- R HEEL -Ulcer Cleansing Rinsed/ Irrigated with Saline -Foul Odor after Cleansing No -Primary Dressing Applied NonAdherent NonAdherent NonAdherent Contact Layer Contact Layer Contact Layer -Other Dressing hydrogel hydrogel hydrogel -Primary Dressing Covered/Secured with Dry Gauze & Dry Gauze & Dry Gauze & Roll Gauze, Roll Gauze, Roll Gauze, Secured with Secured with Secured with Tape Tape Tape -Other Covering drsg per jf rn RLE -Tubular Bandage Single Layer Single Layer Double Layer -Size of Tubigrip Used Size F Size F Size F -Size F ($) 1 1 2 Treatment Response Procedure Procedure Tolerated Well Tolerated Well Pain Scale: 0-10 Numeric Is Patient Pain Free? Yes Yes Yes WC - Visit Discharge Discharge Condition Stable Stable Stable Ambulatory Status Ambulatory, Walker Ambulatory, Walker Walker Transportation Private Auto Private Auto Private Auto Accompanied by dropped pt off Medication Reconcilliation completed & No provided to patient/care provider Clinical Summary of Care Provided Yes 03/03/25 14:59 Wound Care Center Nurse 3 #6- R HEEL -Ulcer Cleansing -Foul Odor after Cleansing -Primary Dressing Applied -Other Dressing PAD AND PROTECT -Primary Dressing Covered/Secured with Dry Gauze & Roll Gauze, Secured with Tape -Other Covering RLE -Tubular Bandage Double Layer -Size of Tubigrip Used Size F -Size F ($) 2 Treatment Response Pain Scale: 0-10 Numeric Is Patient Pain Free? 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: CODE(S): L97.412 - Non-pressure chronic ulcer of right heel and midfoot with fat layer exposed (2) Chronic ulcer of right heel with fat layer exposed: CODE(S): L97.412 - Non-pressure chronic ulcer of right heel and midfoot with fat layer exposed (3) Diabetic ulcer of foot associated with diabetes mellitus due to underlying condition, with fat layer exposed: CODE(S): E08.621 - Diabetes mellitus due to underlying condition with foot ulcer; L97.502 - Non-pressure chronic ulcer of other part of unspecified foot with fat layer exposed QUALIFIERS: Diabetic foot ulcer location: heel Laterality: right Qualified Code(s): E08.621 - Diabetes mellitus due to underlying condition with foot ulcer; L97.412 - Non-pressure chronic ulcer of right heel and midfoot with fat layer exposed (4) Diabetic ulcer of toe: CODE(S): E11.621 - Type 2 diabetes mellitus with foot ulcer; L97.509 - Non-pressure chronic ulcer of other part of unspecified foot with unspecified severity QUALIFIERS: Diabetes mellitus type: type 2 Laterality: right Non-pressure ulcer stage: with other severity Qualified Code(s): E11.621 - Type 2 diabetes mellitus with foot ulcer; L97.518 - Non-pressure chronic ulcer of other part of right foot with other specified severity (5) Type 2 diabetes mellitus with foot ulcer: CODE(S): E11.621 - Type 2 diabetes mellitus with foot ulcer; L97.509 - Non-pressure chronic ulcer of other part of unspecified foot with unspecified severity QUALIFIERS: Diabetes mellitus exterminator termite insulin use: with shelter use Qualified Code(s): E11.621 - Type 2 diabetes mellitus with foot ulcer; L97.509 - Non-pressure chronic ulcer of other part of unspecified foot with unspecified severity; Z79.4 - long-term (current) use of insulin (6) Diabetic foot ulcer: CODE(S): E11.621 - Type 2 diabetes mellitus with foot ulcer; L97.509 - Non-pressure chronic ulcer of other part of unspecified foot with unspecified severity QUALIFIERS: Diabetic foot ulcer location: heel Diabetes mellitus type: type 2 Laterality: right Non-pressure ulcer stage: with fat layer exposed Qualified Code(s): E11.621 - Type 2 diabetes mellitus with foot ulcer; L97.412 - Non-pressure chronic ulcer of right heel and midfoot with fat layer exposed (7) History of total knee arthroplasty: CODE(S): Z96.659 - Presence of unspecified artificial knee joint (8) Morbid obesity with BMI of 45.0-49.9, adult: CODE(S): E66.01 - Morbid (severe) obesity due to excess calories; Z68.42 - Body mass index [BMI] 45.0-49.9, adult (9) Diabetic polyneuropathy: CODE(S): E11.42 - Type 2 diabetes mellitus with diabetic polyneuropathy (10) Benign prostatic hyperplasia: CODE(S): N40.0 - Benign prostatic hyperplasia without lower urinary tract symptoms (11) Diabetes mellitus type 2 with complications, uncontrolled: (12) History of pulmonary embolism: CODE(S): Z86.711 - Personal history of pulmonary embolism (13) History of deep vein thrombosis (DVT) of lower extremity: CODE(S): Z86.718 - Personal history of other venous thrombosis and embolism (14) Hypertension: CODE(S): I10 - Essential (primary) hypertension QUALIFIERS: Hypertension type: primary hypertension Qualified Code(s): I10 - Essential (primary) hypertension (15) Debility: CODE(S): R53.81 - Other malaise (16) Lower extremity edema: CODE(S): R60.0 - Localized edema (17) Status post lumbar surgery: CODE(S): Z98.890 - Other specified postprocedural states (18) Spondylosis: CODE(S): M47.9 - Spondylosis, unspecified (19) GRETCHEN treated with BiPAP: CODE(S): G47.33 - Obstructive sleep apnea (adult) (pediatric) (20) Former tobacco use: CODE(S): Z87.891 - Personal history of nicotine dependence (21) VTE (venous thromboembolism): CODE(S): I82.90 - Acute embolism and thrombosis of unspecified vein (22) Dyslipidemia: CODE(S): E78.5 - Hyperlipidemia, unspecified (23) Hx of total knee replacement: CODE(S): Z96.659 - Presence of unspecified artificial knee joint (24) History of vascular surgery: CODE(S): Z98.890 - Other specified postprocedural states (25) Hx of laminectomy: CODE(S): Z98.890 - Other specified postprocedural states (26) History of pyloromyotomy: CODE(S): Z98.890 - Other specified postprocedural states (27) Onychomycosis: CODE(S): B35.1 - Tinea unguium (28) Stage 3b chronic kidney disease (CKD): CODE(S): N18.32 - Chronic kidney disease, stage 3b (29) Diabetic foot ulcer associated with diabetes mellitus due to underlying condition: CODE(S): E08.621 - Diabetes mellitus due to underlying condition with foot ulcer; L97.509 - Non-pressure chronic ulcer of other part of unspecified foot with unspecified severity (30) Charcot arthropathy: CODE(S): M14.60 - Charcot's joint, unspecified site PLAN: Plan This is a 69-year-old male who presented with recurrent ulcerations of the right postero-lateral heel and right great toe. The patient is obese and known to be diabetic. He also suffers from multiple other pre-existing medical problems. The ulcerations appear to be pressure and diabetes related. The importance of offloading measures has been discussed with the patient. He is to continue wearing his offloading footwear, previously fitted by his Glass Designer, Dr. Saurabh Dasilva. However, the fit of these shoes may need to be reevaluated. Whether the right postero-lateral heel ulceration is due to poorly fitted footwear, or pressure from the bed surface, is not clear. The patient claims to sleep on his back, and the site of the ulcer on the posterior heel may be due to pressure against the bed surface. Therefore, the patient has been advised to continue the use of his Podus boot for offloading purposes. With respect to the ulceration on the right posterolateral heel, it appears to be completely healed and epithelialized. The patient is to continue with offloading measures. The discolored area on the tip of the right hallux is thought to represent either a blood blister or, possibly, an area of necrosis. The overlying dermal layers appear to be intact. Therefore, we are to temporize, and observe this area over a period of time. The patient is to be scheduled to return in 2 weeks for reevaluation. The lesion on the distal right hallux is to be left undisturbed, with continued offloading measures. The patient has been advised to optimize his nutritional intake, as well as his diabetic control. We are to continue the use of double Tubigrips to the right lower extremity, which will be donned on a daily basis. The patient does have swelling in his lower extremities. He has been advised to continue using his mechanical pneumatic compression pumps several times daily. He has also been advised to elevate his lower extremities as much as possible. Prolonged idle sitting has been discouraged. Ambulation has been encouraged. Weight loss has also been encouraged. The patient is to return in 2 weeks for reevaluation. Total time: 25 minutes
== END 2025-03-12 23:59 | disposition home or self-care (01) ==
LOC: WC 14:15
PROVIDERS: PCP Internal Medicine; Referring Provider Internal Medicine; Visit Provider Surgery
DX: E11.621 Type 2 diabetes mellitus with foot ulcer (principal); L97.412 Non-pressure chronic ulcer of right heel and midfoot with fat layer exposed; E66.01 Morbid (severe) obesity due to excess calories; Z68.42 Body mass index [BMI] 45.0-49.9, adult; E11.610 Type 2 diabetes mellitus with diabetic neuropathic arthropathy; E11.42 Type 2 diabetes mellitus with diabetic polyneuropathy; E11.22 Type 2 diabetes mellitus with diabetic chronic kidney disease; Z79.4 Long term (current) use of insulin; N18.32 Chronic kidney disease, stage 3b; R53.81 Other malaise; R60.0 Localized edema; N40.0 Benign prostatic hyperplasia without lower urinary tract symptoms; E78.5 Hyperlipidemia, unspecified; G47.33 Obstructive sleep apnea (adult) (pediatric); I12.9 Hypertensive chronic kidney disease with stage 1 through stage 4 chronic kidney disease, or unspecified chronic kidney disease; M47.9 Spondylosis, unspecified; B35.1 Tinea unguium; Z79.82 Long term (current) use of aspirin; Z79.01 Long term (current) use of anticoagulants; Z79.85 Long-term (current) use of injectable non-insulin antidiabetic drugs; Z96.652 Presence of left artificial knee joint; Z87.891 Personal history of nicotine dependence; Z86.718 Personal history of other venous thrombosis and embolism; Z86.711 Personal history of pulmonary embolism
CPT/HCPCS: 11042; 99213; G0463

== ENCOUNTER 2025-04-07 14:00 | Outpatient (RCR) | payer MEDICARE, BC, SELFPAY ==
[2025-03-17 13:48] VITALS: BP 199/98; PULSE 98; RESP 18; TEMP 36.6
--- NOTE | 2025-03-18 08:01 | WC ---
RT HEEL WOUND 8.5.25
--- NOTE | 2025-03-18 08:53 | WC ---
PHOTO: Iván WALLS 8.5.25
--- NOTE | 2025-03-18 09:09 | WC ---
PHOTO: RT HEEL 03.17.25
--- NOTE | 2025-03-19 14:13 | PCM.WC.HP ---
History of Present Illness Date of Service: 03/17/25 Chief Complaint: Right heel ulcer and right hallux ulcer History of Wound: This is a 69 year-old male who presented to [facility] for evaluation of a right heel ulcer. It started as a a pressure ulcer in February 2022 when he he was in TCU and it healed. It then became a blister right before his Left TKR surgery. He had his left knee replaced 07/14/22 at [facility]. 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 He also has a history of diabetes type II with peripheral polyneuropathy, HTN, lymphedema, hypercholesterolemia and PE that he is on Xerelto. Wound culture obtained on 08/30/22 which are positive for VRE, Kocuria kristinae and Corynebacterium striatum. He will completed the Linezolid. Wound culture obtained 06/20/23 which was positive for Staphylococcus pseudintermediu, Pseudomonas aeruginosa, Corynebacterium minutissiumum, and Anaerobic cocci. He was started on Levaquin and Flagyl. Foot xray 09/27/22 - Osteopenia with diffuse osteoarthritic changes. Diffuse soft tissue swelling with ossification of the distal Achilles tendon. No acute abnormality or evidence of erosive changes. Did undergo updated radiograph of the right foot 11/08/2023 with no noted changes from previous x-ray. This is a recurring ulceration to both distal tuft of the right hallux and posterior lateral heel. He stated both sites had scabbed up and he was previously discharged. However, scabs have later broken down with re-ulceration. 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 Type 2 diabetes mellitus with foot ulcer Non-pressure chronic ulcer of other part of right foot with fat layer exposed Acute painful diabetic polyneuropathy Chronic ulcer of right heel with fat layer exposed Benign prostatic hyperplasia Diabetic polyneuropathy Hypertension History of pulmonary embolism Lymphedema Spondylosis Nephrolithiasis Diabetic ulcer of foot associated with diabetes mellitus due to underlying condition, with fat layer exposed Charcot arthropathy Diabetic foot ulcer Diabetic foot ulcer associated with diabetes mellitus due to underlying condition Stage 3b chronic kidney disease (CKD) Onychomycosis History of deep vein thrombosis (DVT) of lower extremity Diabetic ulcer of toe VTE (venous thromboembolism) Dyslipidemia Diabetes mellitus type 2 with complications, uncontrolled Morbid obesity with BMI of 45.0-49.9, adult GRETCHEN treated with BiPAP Morbid obesity Former tobacco use BPH (benign prostatic hyperplasia) HTN (hypertension) Diabetes mellitus Home Medications ?Medication ?Instructions ?Recorded ?Last Taken ?Type atorvastatin 20 mg tablet 20 mg PO QHS cholesterol 08/27/15 02/21/22 History furosemide 40 mg tablet 80 mg PO DAILY diuretic 08/27/15 02/22/22 History rivaroxaban 20 mg tablet (Xarelto) 20 mg PO DINNER blood thinner 03/23/16 02/21/22 History doxazosin 4 mg tablet 4 mg PO QHS blood pressure 04/03/20 02/21/22 History insulin lispro 100 unit/mL 20 unit subcut BREAKFAST diabetes 02/23/22 02/22/22 History subcutaneous pen insulin lispro 100 unit/mL 20 unit subcut LUNCH diabetes 02/23/22 02/22/22 History subcutaneous pen gabapentin 600 mg tablet 600 mg PO TIDCM Nerve Pain 02/24/22 Unknown History insulin glargine-yfgn 100 unit/mL 50 unit (0.5 mL) subcut QHS dm #0 04/10/22 Unknown Rx (3 mL) subcutaneous pen mL insulin lispro 100 unit/mL 20 unit (0.2 mL) subcut DINNER dm 04/10/22 Unknown Rx subcutaneous pen (Humalog KwikPen #0 mL (U-100) Insulin) aspirin 81 mg capsule 81 mg PO DAILY heart health 08/16/22 Unknown History calcium carbonate (Tums) 200 mg PO BID PRN Heartburn 08/16/22 Unknown History dulaglutide 3 mg/0.5 mL 3 mg subcut QWEEK dm 08/16/22 Unknown History subcutaneous pen injector (Trulicity) hydrocodone-acetaminophen 5-325mg 1 tab PO Q8H PRN Pain 08/16/22 Unknown History 5mg-325mg zinc 50 mg capsule 50 mg PO DAILY supplement 08/16/22 Unknown History losartan 100 mg tablet 100 mg PO DAILY bp 12/10/24 Unknown History metoprolol tartrate 75 mg tablet 75 mg PO BID bp 01/08/25 Unknown History tizanidine 4 mg tablet 4 mg PO TID PRN PRN low back pain 01/08/25 Unknown History cefdinir 300 mg capsule 300 mg PO BID 4 days #8 caps 01/15/25 Unknown Rx Allergy/AdvReac Type Severity Reaction Status Date / Time Penicillins Allergy Unknown Hives Verified 01/08/25 14:25 erythromycin base AdvReac Nausea Verified 01/08/25 14:25 (Erythromycin Base) Family History Mother Diabetes Heart disease Coagulopathy Father Heart disease CVA (cerebral vascular accident) Parkinsons disease Surgical History History of total knee arthroplasty Status post lumbar surgery History of pyloromyotomy History of total knee arthroplasty Hx of total knee replacement History of vascular surgery Status post creation of pericardial window Hx of laminectomy Social History household members: spouse Smoking Status: Former smoker how long ago did patient quit smoking: Quit 1994, smoked 1 ppd since age 15. alcohol intake: never substance use type: does not use Physical Exam Const alert, oriented x3, no apparent distress, no limitations and well nourished Constitutional Narrative: The patient's BMI is 48.8. General Appearance: cooperative, comfortable and well developed Orientation / Consciousness: awake, oriented to person, oriented to place and oriented to time Exam Limitations: no limitations HEENT normocephalic and head/scalp atraumatic Head and Scalp: normal to inspection, normocephalic and atraumatic Face and Sinus: normal facial exam Nose: external nose normal External Ear: external ears normal Eyes EOMs intact bilaterally General Eye: normal appearance of both eyes Resp normal respiratory effort, normal air movement, no retractions and no use of accessory muscles Effort and Inspection: able to speak in complete sentences GI GI Narrative: The abdomen is obese. Extremity no calf tenderness General Extremity: Negative for clubbing or cyanosis Skin Wound Narrative: The ulceration on the patient's right posterolateral heel appears to to have reopened slightly. New small ulceration is now present at the site. Dimensions are documented elsewhere. It is full-thickness in nature. Ulcer margins are well beveled. The base of the ulceration is pink and healthy in appearance, with a small amount of bioburden. There is no sign of infection or cellulitis. The dark black, dry eschar on the tip of the patient's right great toe has now sloughed, revealing the underlying ulceration to be healed and epithelialized. Onychomycosis is noted involving the toenails. Mild swelling is noted in the patient's right lower extremity. Neuro oriented x3, CN's II-XII intact bilaterally, moves all extremities and no focal motor deficits Sensorium / Orientation: awake, alert, oriented to person, oriented to place and oriented to time Speech: speech normal Psych Appearance: grossly normal and appropriate Attitude: calm Activity / Motor Behavior: appropriate eye contact Speech: normal speech Mood & Affect: euthymic mood Thought Process: normal thought process Thought Content: normal thought content Attention / Concentration: attention grossly intact Debridement Note Debridement Note Wound debrided: Right postero-lateral heel ulceration Laterality: Right Type of Debridement: Excisional debridement Anesthesia Used: 5% Lidocaine Gel Depth: Down to and including healthy tissue and in the subcutaneous layer Percentage of wound debrided: 100 Instrument Used: 5mm curette Tissue Removed: Bioburden Severity: Fat Layer Exposed Amount of bleeding with debridement: Mild Bleeding Controlled with: Compression and gauze Patient tolerated procedure: Patient tolerated procedure well Post-Debridement Measurements and Additional Note: Post-Debridement Measurements/Treatment - Nurse 1 - General Ulcer Assessment Start: 03/17/25 13:48 Freq: Status: Active Protocol: NELL Activity Type Activity Date Activity User E-sign Co-sign Detail Recorded Client Recorded Date Recorded By Document 03/17/25 13:48 JOSE [id number] 03/17/25 13:55 KW 03/17/25 13:48 - Today's Visit Information Type of service Follow-up Visit (Physician/POCKET OPERATOR ) Arrival Mode Ambulatory, Walker Patient Identification Verified (Name & Yes ) Vital Signs Temperature (97.8 F-99.1 F) 97.8 F Temperature Source Temporal Pulse Rate (60-100) 98 Pulse Location Monitor Respiratory Rate (12-18) 18 Respiratory rate source Observation Oxygen Delivery Method Room Air Blood Pressure (90/60-120/80) 199/98 H Blood Pressure Mean 131 Source Monitor Position Sitting Blood Pressure Location Left Arm History Since Last Visit- (Skip if this is Patient's initial visit) Have you changed medications since your No last visit? Any new allergies or adverse reactions No Had a fall/change in ADL's that may No increase risk of falls Signs or symptoms of abuse and/or No neglect since last visit Have you been in the hospital since your No last visit? Has dressing in place as prescribed Yes Has compression in place as prescribed Yes Has offloadiing in place as prescribed Yes Experienced any changes in pain level or No management Left Footwear Regular Shoe Right Footwear Surgical Shoe with pressure relief insole Pain Scale: 0-10 Numeric Is Patient Pain Free? Yes WC - Nurse 1 - General Ulcer Measurement Start: 03/17/25 13:48 Freq: Status: Active Protocol: Activity Type Activity Date Activity User E-sign Co-sign Detail Recorded Client Recorded Date Recorded By Document 03/17/25 13:48 KW [id number] 03/17/25 13:55 KW 03/17/25 13:48 Wound Center Nurse 1 #6- R HEEL -Current Size (cm) - Length 0.1 -Current Size (cm) - Width 0.1 -Current Size (cm) - Depth 0.1 -Total Square Cm 0.01 -Date of Last Picture (Recall this 03/17/25 field) -Exudate Amt None Present -Exudate Type Serosanguineous -Wound Margin Distinct, Outline Attached -Granulation Amt None Present (0 %) -Necrosis Amt Large (67-100%) -Necrotic Tissue Type Eschar -Texture (Lianna-wound Skin Appearance) Assessed -Moisture (Lianna-wound Skin Appearance) Assessed,Dry/ Scaly -Color (Lianna-wound Skin Appearance) Assessed -Temperature (Lianna-wound Skin No Abnormality Appearance) (Pt Warm) -Tenderness on Palpation (Lianna-wound No Skin Appearance) -Ulcer Cleansing Rinsed/ Irrigated with Saline -Foul Odor after Cleansing No -Anesthetic Used 5% Lidocaine Gel Right Calf (cm) 47.7 Right Ankle (cm) 28.6 - Nurse 2 - General Ulcer CM Notes Start: 03/17/25 13:48 Freq: Status: Active Protocol: Activity Type Activity Date Activity User E-sign Co-sign Detail Recorded Client Recorded Date Recorded By Document 03/17/25 14:01 DS [id number] 03/17/25 14:07 DS 03/17/25 14:01 Wound Center Nurse 2 #7- R GR TOE -Time 14:03 -Correct Patient Yes -Correct Side, Site, Position Yes -Procedure Performed No -Tunneling No -Undermining/Tunneling No -Circular Undermining No -Wound/Ulcer Outcome Healed- Epithelialized -Ulcer Cleansing gauze #6- R HEEL -Time 14:01 -Correct Patient Yes -Correct Side, Site, Position Yes -Correct Procedure Yes -Procedure Performed Yes -Type of Procedure Debridement -Clinical Debridement Subcutaneous -Tissue Removed Subcutaneous -Post Debridement (cm) - Length 1.0 -Post Debridement (cm) - Width 0.3 -Post Debridement (cm) - Depth 0.1 -Total Square (Post) (cm) 0.30 -Area of Debridement (cm) - Length 1.0 -Area of Debridement (cm) - Width 0.3 -Total Square (Area) (cm) 0.30 -Tunneling No -Undermining/Tunneling No -Circular Undermining No -Wound/Ulcer Outcome Not Healed -Ulcer Cleansing gauze -Foul Odor after Cleansing No -Bioengineered Tissue No -Bleeding Controlled with Pressure -Treatment Response Procedure Tolerated Well -Debridement - Subq, 1st 20sq cm Yes Pain Scale: 0-10 Numeric Is Patient Pain Free? Yes - Nurse 3 - General Ulcer D/C NN Start: 03/17/25 13:48 Freq: Status: Active Protocol: Activity Type Activity Date Activity User E-sign Co-sign Detail Recorded Client Recorded Date Recorded By Document 03/17/25 14:15 JOSE [id number] 03/17/25 14:16 03/17/25 14:15 Wound Care Center Nurse 3 #6- R HEEL -Primary Dressing Applied C Hydrogel -Primary Dressing Covered/Secured with Dry Gauze & Roll Gauze, Secured with Tape -Hydrogel 1 RLE -Tubular Bandage Double Layer -Size of Tubigrip Used Size F -Size F ($) 2 Pain Scale: 0-10 Numeric Is Patient Pain Free? 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: CODE(S): L97.412 - Non-pressure chronic ulcer of right heel and midfoot with fat layer exposed (2) Chronic ulcer of right heel with fat layer exposed: CODE(S): L97.412 - Non-pressure chronic ulcer of right heel and midfoot with fat layer exposed (3) Diabetic ulcer of foot associated with diabetes mellitus due to underlying condition, with fat layer exposed: CODE(S): E08.621 - Diabetes mellitus due to underlying condition with foot ulcer; L97.502 - Non-pressure chronic ulcer of other part of unspecified foot with fat layer exposed QUALIFIERS: Diabetic foot ulcer location: heel Laterality: right Qualified Code(s): E08.621 - Diabetes mellitus due to underlying condition with foot ulcer; L97.412 - Non-pressure chronic ulcer of right heel and midfoot with fat layer exposed (4) Diabetic ulcer of toe: CODE(S): E11.621 - Type 2 diabetes mellitus with foot ulcer; L97.509 - Non-pressure chronic ulcer of other part of unspecified foot with unspecified severity QUALIFIERS: Diabetes mellitus type: type 2 Laterality: right Non-pressure ulcer stage: with other severity Qualified Code(s): E11.621 - Type 2 diabetes mellitus with foot ulcer; L97.518 - Non-pressure chronic ulcer of other part of right foot with other specified severity (5) Type 2 diabetes mellitus with foot ulcer: CODE(S): E11.621 - Type 2 diabetes mellitus with foot ulcer; L97.509 - Non-pressure chronic ulcer of other part of unspecified foot with unspecified severity QUALIFIERS: Diabetes mellitus senior care insulin use: with keno terminal operator use Qualified Code(s): E11.621 - Type 2 diabetes mellitus with foot ulcer; L97.509 - Non-pressure chronic ulcer of other part of unspecified foot with unspecified severity; Z79.4 - MCFP (current) use of insulin (6) Diabetic foot ulcer: CODE(S): E11.621 - Type 2 diabetes mellitus with foot ulcer; L97.509 - Non-pressure chronic ulcer of other part of unspecified foot with unspecified severity QUALIFIERS: Diabetic foot ulcer location: heel Diabetes mellitus type: type 2 Laterality: right Non-pressure ulcer stage: with fat layer exposed Qualified Code(s): E11.621 - Type 2 diabetes mellitus with foot ulcer; L97.412 - Non-pressure chronic ulcer of right heel and midfoot with fat layer exposed (7) History of total knee arthroplasty: CODE(S): Z96.659 - Presence of unspecified artificial knee joint (8) Morbid obesity with BMI of 45.0-49.9, adult: CODE(S): E66.01 - Morbid (severe) obesity due to excess calories; Z68.42 - Body mass index [BMI] 45.0-49.9, adult (9) Diabetic polyneuropathy: CODE(S): E11.42 - Type 2 diabetes mellitus with diabetic polyneuropathy (10) Benign prostatic hyperplasia: CODE(S): N40.0 - Benign prostatic hyperplasia without lower urinary tract symptoms (11) Diabetes mellitus type 2 with complications, uncontrolled: (12) History of pulmonary embolism: CODE(S): Z86.711 - Personal history of pulmonary embolism (13) History of deep vein thrombosis (DVT) of lower extremity: CODE(S): Z86.718 - Personal history of other venous thrombosis and embolism (14) Hypertension: CODE(S): I10 - Essential (primary) hypertension QUALIFIERS: Hypertension type: primary hypertension Qualified Code(s): I10 - Essential (primary) hypertension (15) Debility: CODE(S): R53.81 - Other malaise (16) Lower extremity edema: CODE(S): R60.0 - Localized edema (17) Status post lumbar surgery: CODE(S): Z98.890 - Other specified postprocedural states (18) Spondylosis: CODE(S): M47.9 - Spondylosis, unspecified (19) GRETCHEN treated with BiPAP: CODE(S): G47.33 - Obstructive sleep apnea (adult) (pediatric) (20) Former tobacco use: CODE(S): Z87.891 - Personal history of nicotine dependence (21) VTE (venous thromboembolism): CODE(S): I82.90 - Acute embolism and thrombosis of unspecified vein (22) Dyslipidemia: CODE(S): E78.5 - Hyperlipidemia, unspecified (23) Hx of total knee replacement: CODE(S): Z96.659 - Presence of unspecified artificial knee joint (24) History of vascular surgery: CODE(S): Z98.890 - Other specified postprocedural states (25) Hx of laminectomy: CODE(S): Z98.890 - Other specified postprocedural states (26) History of pyloromyotomy: CODE(S): Z98.890 - Other specified postprocedural states (27) Onychomycosis: CODE(S): B35.1 - Tinea unguium (28) Stage 3b chronic kidney disease (CKD): CODE(S): N18.32 - Chronic kidney disease, stage 3b (29) Diabetic foot ulcer associated with diabetes mellitus due to underlying condition: CODE(S): E08.621 - Diabetes mellitus due to underlying condition with foot ulcer; L97.509 - Non-pressure chronic ulcer of other part of unspecified foot with unspecified severity (30) Charcot arthropathy: CODE(S): M14.60 - Charcot's joint, unspecified site PLAN: Plan This is a 69-year-old male who presented with recurrent ulcerations of the right postero-lateral heel and right great toe. The patient is obese and known to be diabetic. He also suffers from multiple other pre-existing medical problems. The ulcerations appear to be pressure and diabetes related. The importance of offloading measures has been discussed with the patient. He is to continue wearing his offloading footwear, previously fitted by his Landing Signal Officer, Dr. Saurabh Dasilva. However, the fit of these shoes may need to be reevaluated, and the patient has been urged to seek a new appointment with his road inspector in this regard. Whether the right postero-lateral heel ulceration is due to poorly fitted footwear, or pressure from the bed surface, is not clear. The patient claims to sleep on his back, and the site of the ulcer on the posterior heel may be due to pressure against the bed surface. Therefore, the patient has been advised to continue the use of his Podus boot for offloading purposes. With respect to the ulceration on the right posterolateral heel, it had appeared to be completely healed at the patient's last visit, but now appears to have reopened. There is now a small, full-thickness ulceration at that site. We are to implement the use of collagen hydrogel topically on a daily basis. The patient has been provided the product, and instructions in the appropriate means of application. The patient is to continue with offloading measures. The patient has been advised to optimize his nutritional intake, as well as his diabetic control. We are to continue the use of double Tubigrips to the right lower extremity, which will be donned on a daily basis. The patient does have swelling in his lower extremities. He has been advised to continue using his mechanical pneumatic compression pumps several times daily. He has also been advised to elevate his lower extremities as much as possible. Prolonged idle sitting has been discouraged. Ambulation has been encouraged. Weight loss has also been encouraged. It is anticipated that we will prescribe graduated compression stockings for daily use in the near future. The patient is to return in 2 weeks for reevaluation. Total time: 24 minutes
[2025-04-07 13:48] VITALS: BP 182/93; PULSE 92; RESP 18; TEMP 36.1
--- NOTE | 2025-04-08 13:49 | WC ---
PHOTO-RIGHT HEEL 04/07/25
--- NOTE | 2025-04-12 17:39 | HP.PCM_ITS ---
History of Present Illness Date of Service: 04/07/25 Chief Complaint: Right heel ulcer and right hallux ulcer History of Wound: This is a 69 year-old male who [facility] of a right heel ulcer. It started as a a pressure ulcer in February 2022 when he he was in TCU and it healed. It then became a blister right before his Left TKR surgery. He had his left knee [facility]/22 [facility]. 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 He also has a history of diabetes type II with peripheral polyneuropathy, HTN, lymphedema, hypercholesterolemia and PE that he is on Xerelto. Wound culture obtained on 08/30/22 which are positive for VRE, Kocuria kristinae and Corynebacterium striatum. He will completed the Linezolid. Wound culture obtained 06/20/23 which was positive for Staphylococcus pseudintermediu, Pseudomonas aeruginosa, Corynebacterium minutissiumum, and Anaerobic cocci. He was started on Levaquin and Flagyl. Foot xray 09/27/22 - Osteopenia with diffuse osteoarthritic changes. Diffuse soft tissue swelling with ossification of the distal Achilles tendon. No acute abnormality or evidence of erosive changes. Did undergo updated radiograph of the right foot 11/08/2023 with no noted changes from previous x-ray. This is a recurring ulceration to both distal tuft of the right hallux and posterior lateral heel. He stated both sites had scabbed up and he was previously discharged. However, scabs have later broken down with re- ulceration. 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 Type 2 diabetes mellitus with foot ulcer Non-pressure chronic ulcer of other part of right foot with fat layer exposed Acute painful diabetic polyneuropathy Chronic ulcer of right heel with fat layer exposed Benign prostatic hyperplasia Diabetic polyneuropathy Hypertension History of pulmonary embolism Lymphedema Spondylosis Nephrolithiasis Diabetic ulcer of foot associated with diabetes mellitus due to underlying condition, with fat layer exposed Charcot arthropathy Diabetic foot ulcer Diabetic foot ulcer associated with diabetes mellitus due to underlying condition Stage 3b chronic kidney disease (CKD) Onychomycosis History of deep vein thrombosis (DVT) of lower extremity Diabetic ulcer of toe VTE (venous thromboembolism) Dyslipidemia Diabetes mellitus type 2 with complications, uncontrolled Morbid obesity with BMI of 45.0-49.9, adult GRETCHEN treated with BiPAP Morbid obesity Former tobacco use BPH (benign prostatic hyperplasia) HTN (hypertension) Diabetes mellitus Home Medications ?Medication ?Instructions ?Recorded ?Last Taken ?Type atorvastatin 20 mg tablet 20 mg PO QHS cholesterol 02/21/22 History furosemide 40 mg tablet 80 mg PO DAILY diuretic 08/1302/22/22 History rivaroxaban 20 mg tablet (Xarelto) 20 mg PO DINNER blo od thinner 03/23/16 02/21/22 History doxazosin 4 mg tablet 4 mg PO QHS blood pressure 0 04/03/20 02/21/22 History insulin lispro 100 unit/mL 20 unit subcut BREAKFAST di abetes 02/23/22 02/22/22 History subcutaneous pen insulin lispro 100 unit/mL 20 unit subcut LUNCH diabet es 02/23/22 02/22/22 History subcutaneous pen gabapentin 600 mg tablet 600 mg PO TIDCM Nerve Pain 0 02/24/22 Unknown History insulin glargine-yfgn 100 unit/mL 50 unit (0.5 mL) sub cut QHS dm #0 04/10/22 Unknown Rx (3 mL) subcutaneous pen mL insulin lispro 100 unit/mL 20 unit (0.2 mL) subcut DIN NER dm 04/10/22 Unknown Rx subcutaneous pen (Humalog KwikPen #0 mL (U-100) Insulin) aspirin 81 mg capsule 81 mg PO DAILY heart health 08/16/22 Unknown History calcium carbonate (Tums) 200 mg PO BID PRN Heartburn 08/16/22 Unknown History dulaglutide 3 mg/0.5 mL 3 mg subcut QWEEK dm 3 Unknown History subcutaneous pen injector (Trulicity) hydrocodone-acetaminophen 5-325mg 1 tab PO Q8H PRN Fei n 08/16/22 Unknown History 5mg-325mg zinc 50 mg capsule 50 mg PO DAILY supplement Unknown History losartan 100 mg tablet 100 mg PO DAILY bp 12/10/24 Unknown History metoprolol tartrate 75 mg tablet 75 mg PO BID bp 01/08 Unknown History tizanidine 4 mg tablet 4 mg PO TID PRN PRN low back pain 01/08/25 Unknown History cefdinir 300 mg capsule 300 mg PO BID 4 days #8 caps 01/15/25 Unknown Rx Allergy/AdvReac Type Severity Reaction Status Date / Time Penicillins Allergy Unknown Hives Verified 01/08/25 14:25 erythromycin base AdvReac Nausea Verified 01/08/25 14:25 (Erythromycin Base) Family History Mother Diabetes Heart disease Coagulopathy Father Heart disease CVA (cerebral vascular accident) Parkinsons disease Surgical History History of total knee arthroplasty Status post lumbar surgery History of pyloromyotomy History of total knee arthroplasty Hx of total knee replacement History of vascular surgery Status post creation of pericardial window Hx of laminectomy Social History household members: spouse Smoking Status: Former smoker how long ago did patient quit smoking: Quit 1994, smoked 1 ppd since age 15. alcohol intake: never substance use type: does not use Physical Exam Const alert, oriented x3, no apparent distress, no limitations and well nourished Constitutional Narrative: The patient's BMI is 48.8. General Appearance: cooperative, comfortable and well developed Orientation / Consciousness: awake, oriented to person, oriented to place and oriented to time Exam Limitations: no limitations HEENT normocephalic and head/scalp atraumatic Head and Scalp: normal to inspection, normocephalic and atraumatic Face and Sinus: normal facial exam Nose: external nose normal External Ear: external ears normal Eyes EOMs intact bilaterally General Eye: normal appearance of both eyes Resp normal respiratory effort, normal air movement, no retractions and no use of accessory muscles Effort and Inspection: able to speak in complete sentences GI GI Narrative: The abdomen is obese. Extremity no calf tenderness General Extremity: Negative for clubbing or cyanosis Skin Wound Narrative: The ulceration on the patient's right posterolateral heel is healed. A dry eschar was noted initially, but gentle unroofing revealed the underlying ulceration to be completely healed and epithelialized. The former ulceration on the tip of the patient's right great toe remains completely healed and epithelialized as well. Onychomycosis is noted involving the toenails. Mild swelling is noted in the patient's right lower extremity. Neuro oriented x3, CN's II-XII intact bilaterally, moves all extremities and no focal motor deficits Sensorium / Orientation: awake, alert, oriented to person, oriented to place and oriented to time Speech: speech normal Psych Appearance: grossly normal and appropriate Attitude: calm Activity / Motor Behavior: appropriate eye contact Speech: normal speech Mood & Affect: euthymic mood Thought Process: normal thought process Thought Content: normal thought content Attention / Concentration: attention grossly intact Debridement Note Debridement Note No debridement was completed: No debridement was completed today (There are no open wounds or ulcerations.) Assessment/Plan Assessment/Plan (1) 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: CODE(S): L97.412 - Non-pressure chronic ulcer of right heel and midfoot with fat layer exposed (2) Chronic ulcer of right heel with fat layer exposed: CODE(S): L97.412 - Non-pressure chronic ulcer of right heel and midfoot with fat layer exposed (3) Diabetic ulcer of foot associated with diabetes mellitus due to underlying condition, with fat layer exposed: CODE(S): E08.621 - Diabetes mellitus due to underlying condition with foot ulcer; L97.502 - Non-pressure chronic ulcer of other part of unspecified foot with fat layer exposed QUALIFIERS: Diabetic foot ulcer location: heel Laterality: right Qualified Code(s): E08.621 - Diabetes mellitus due to underlying condition with foot ulcer; L97.412 - Non-pressure chronic ulcer of right heel and midfoot with fat layer exposed (4) Diabetic ulcer of toe: CODE(S): E11.621 - Type 2 diabetes mellitus with foot ulcer; L97.509 - Non-pressure chronic ulcer of other part of unspecified foot with unspecified severity QUALIFIERS: Diabetes mellitus type: type 2 Laterality: right Non-pressure ulcer stage: with other severity Qualified Code(s): E11.621 - Type 2 diabetes mellitus with foot ulcer; L97.518 - Non-pressure chronic ulcer of other part of right foot with other specified severity (5) Type 2 diabetes mellitus with foot ulcer: CODE(S): E11.621 - Type 2 diabetes mellitus with foot ulcer; L97.509 - Non-pressure chronic ulcer of other part of unspecified foot with unspecified severity QUALIFIERS: Diabetes mellitus rat exterminator insulin use: with longterm use Qualified Code(s): E11.621 - Type 2 diabetes mellitus with foot ulcer; L97.509 - Non-pressure chronic ulcer of other part of unspecified foot with unspecified severity; Z79.4 - supervisor intermediates (current) use of insulin (6) Diabetic foot ulcer: CODE(S): E11.621 - Type 2 diabetes mellitus with foot ulcer; L97.509 - Non-pressure chronic ulcer of other part of unspecified foot with unspecified severity QUALIFIERS: Diabetic foot ulcer location: heel Diabetes mellitus type: type 2 Laterality: right Non-pressure ulcer stage: with fat layer exposed Qualified Code(s): E11.621 - Type 2 diabetes mellitus with foot ulcer; L97.412 - Non-pressure chronic ulcer of right heel and midfoot with fat layer exposed (7) History of total knee arthroplasty: CODE(S): Z96.659 - Presence of unspecified artificial knee joint (8) Morbid obesity with BMI of 45.0-49.9, adult: CODE(S): E66.01 - Morbid (severe) obesity due to excess calories; Z68.42 - Body mass index [BMI] 45.0-49.9, adult (9) Diabetic polyneuropathy: CODE(S): E11.42 - Type 2 diabetes mellitus with diabetic polyneuropathy (10) Benign prostatic hyperplasia: CODE(S): N40.0 - Benign prostatic hyperplasia without lower urinary tract symptoms (11) Diabetes mellitus type 2 with complications, uncontrolled: (12) History of pulmonary embolism: CODE(S): Z86.711 - Personal history of pulmonary embolism (13) History of deep vein thrombosis (DVT) of lower extremity: CODE(S): Z86.718 - Personal history of other venous thrombosis and embolism (14) Hypertension: CODE(S): I10 - Essential (primary) hypertension QUALIFIERS: Hypertension type: primary hypertension Qualified Code(s): I10 - Essential (primary) hypertension (15) Debility: CODE(S): R53.81 - Other malaise (16) Lower extremity edema: CODE(S): R60.0 - Localized edema (17) Status post lumbar surgery: CODE(S): Z98.890 - Other specified postprocedural states (18) Spondylosis: CODE(S): M47.9 - Spondylosis, unspecified (19) GRETCHEN treated with BiPAP: CODE(S): G47.33 - Obstructive sleep apnea (adult) (pediatric) (20) Former tobacco use: CODE(S): Z87.891 - Personal history of nicotine dependence (21) VTE (venous thromboembolism): CODE(S): I82.90 - Acute embolism and thrombosis of unspecified vein (22) Dyslipidemia: CODE(S): E78.5 - Hyperlipidemia, unspecified (23) Hx of total knee replacement: CODE(S): Z96.659 - Presence of unspecified artificial knee joint (24) History of vascular surgery: CODE(S): Z98.890 - Other specified postprocedural states (25) Hx of laminectomy: CODE(S): Z98.890 - Other specified postprocedural states (26) History of pyloromyotomy: CODE(S): Z98.890 - Other specified postprocedural states (27) Onychomycosis: CODE(S): B35.1 - Tinea unguium (28) Stage 3b chronic kidney disease (CKD): CODE(S): N18.32 - Chronic kidney disease, stage 3b (29) Diabetic foot ulcer associated with diabetes mellitus due to underlying condition: CODE(S): E08.621 - Diabetes mellitus due to underlying condition with foot ulcer; L97.509 - Non-pressure chronic ulcer of other part of unspecified foot with unspecified severity (30) Charcot arthropathy: CODE(S): M14.60 - Charcot's joint, unspecified site PLAN: Plan This is a 69-year-old male who presented with recurrent ulcerations of the right postero-lateral heel and right great toe. The patient is obese and known to be diabetic. He also suffers from multiple other pre-existing medical problems. The ulcerations appear to be pressure and diabetes related. The importance of offloading measures has been discussed with the patient. He is to continue wearing his offloading footwear, previously fitted by his Foam Machine Operator, Dr. Saurabh Dasilva. However, the fit of these shoes may need to be reevaluated, and the patient has been urged to seek a new appointment with his precision instrument maker in this regard. Whether the right postero-lateral heel ulceration is due to poorly fitted footwear, or pressure from the bed surface, is not clear. The patient claims to sleep on his back, and the site of the ulcer on the posterior heel may be due to pressure against the bed surface. Therefore, the patient has been advised to continue the use of his Podus boot for offloading purposes. With respect to the ulceration on the right posterolateral heel, it had appeared to be completely healed at the patient's last visit, but now appears to have reopened. There is now a small, full-thickness ulceration at that site. We are to implement the use of collagen hydrogel topically on a daily basis. The patient has been provided the product, and instructions in the appropriate means of application. The patient is to continue with offloading measures. The patient has been advised to optimize his nutritional intake, as well as his diabetic control. We are to continue the use of double Tubigrips to the right lower extremity, which will be donned on a daily basis. The patient does have swelling in his lower extremities. He has been advised to continue using his mechanical pneumatic compression pumps several times daily. He has also been advised to elevate his lower extremities as much as possible. Prolonged idle sitting has been discouraged. Ambulation has been encouraged. Weight loss has also been encouraged. It is anticipated that we will prescribe graduated compression stockings for daily use in the near future. The patient is to return in 2 weeks for reevaluation. Total time: 24 minutes
== END 2025-04-09 07:48 | disposition home or self-care (01) ==
LOC: WC 14:00
PROVIDERS: PCP Internal Medicine; Referring Provider Internal Medicine; Visit Provider Surgery
DX: E78.00 Pure hypercholesterolemia, unspecified (principal); E11.621 Type 2 diabetes mellitus with foot ulcer; L97.412 Non-pressure chronic ulcer of right heel and midfoot with fat layer exposed; E66.01 Morbid (severe) obesity due to excess calories; Z68.42 Body mass index [BMI] 45.0-49.9, adult; E11.22 Type 2 diabetes mellitus with diabetic chronic kidney disease; Z79.4 Long term (current) use of insulin; E11.610 Type 2 diabetes mellitus with diabetic neuropathic arthropathy; E11.42 Type 2 diabetes mellitus with diabetic polyneuropathy; N18.32 Chronic kidney disease, stage 3b; I12.9 Hypertensive chronic kidney disease with stage 1 through stage 4 chronic kidney disease, or unspecified chronic kidney disease; R60.0 Localized edema; B35.1 Tinea unguium; N40.0 Benign prostatic hyperplasia without lower urinary tract symptoms; G47.33 Obstructive sleep apnea (adult) (pediatric); M47.9 Spondylosis, unspecified; R53.81 Other malaise; Z79.82 Long term (current) use of aspirin; Z79.899 Other long term (current) drug therapy; Z79.01 Long term (current) use of anticoagulants; Z79.85 Long-term (current) use of injectable non-insulin antidiabetic drugs; Z86.711 Personal history of pulmonary embolism; Z87.891 Personal history of nicotine dependence; Z86.718 Personal history of other venous thrombosis and embolism; Z96.652 Presence of left artificial knee joint
CPT/HCPCS: 11042; 99213; G0463

== ENCOUNTER → 2025-05-04 | Outpatient (CLI) | payer MEDICARE, BC, SELFPAY ==
[2025-05-04 18:21] LABS: Barbiturate Urine NEGATIVE (< 200 ng/mL); Benzodiazepine Urine NEGATIVE (< 200 ng/mL); PCP Urine NEGATIVE (< 25 ng/mL); THC Urine NEGATIVE (< 50 ng/mL)
== END | disposition home or self-care (01) ==
LOC: LAB 16:02
PROVIDERS: PCP Internal Medicine; Referring Provider Anesthesiology Pain Medicine; Visit Provider Anesthesiology Pain Medicine
DX: F11.20 Opioid dependence, uncomplicated (principal)
CPT/HCPCS: 80307